=== PATIENT | female | born 2000 | race Caucasian/White ===

== ENCOUNTER 2024-08-16 12:49 | Outpatient (OUT) | payer BC, SELFPAY ==
--- NOTE | 2024-08-16 14:10 | P.CN_ITS ---
Consult Note: HPI Data of Consult Patient: new to practice Consult date: 08/16/24 Requesting Physician: Ty Fairbanks MD Primary Care Provider: Vidal Romeo DO Consult Narrative Reason for consult: low back, bilateral leg pain Narrative: 24yof who presents for evaluation. longstanding low back pain with radiation into bilateral lower extremities. imaging reviewed, shows disc tear and bulging at l4-5 and l5-s1 with resultant stenosis. has engaged in a series of provider directed home exercises >6 weeks, as well as physical therapy, without benefit. uses otc nsaids, which provide mild relief. denies adverse med side effects. cc:: CC: Ty Fairbanks MD Review of Systems ROS Status of ROS 10 or more systems reviewed and unremark able except as noted in history and below Exam Narrative Exam Narrative: Psych-alert and oriented x 3. Attentive and appropriate, constitutionally normal, displays normal mood and affect per situation. There are no obvious deficits in memory, reasoning, or intellect.? Skin-no obvious rashes, bruising, erythema noted to the patient's area of pain.? Extremities- extremities are warm with minimal edema and palpable pulses. Lumbar-tenderness to palpation noted in the lumbar spine and paraspinal musculature. Pain is elicited with flexion, extension, and lateral rotation of the lumbar spine. Range of motion is diminished with these motions. Facet loading maneuvers are positive.? Strength-noted to be unremarkable with the exception of decreased strength rated at 4 out of 5 in bilateral quadriceps femoris, anterior tibialis. Sensory-no notable sensory deficits in the bilateral lower extremities to touch or pinprick in all dermatomal distributions with the exception to decreased sensation to the bilateral L4, 5 dermatomal distribution Coordination remains intact.? Gait remains non-antalgic. Assessment and Plan Assessment and Plan (1) Lumbar stenosis with neurogenic claudication: (2) Lumbar disc displacement without myelopathy: Plan 24yof who presents for evaluation. failed conservative measures, as noted. imaging reviewed, as noted. given symptoms and imaging, prudent to attempt bilateral l4-5 tfesi under fluoroscopic guidance. may even benefit from bilateral l5-s1 tfesi under fluoroscopic guidance. she is in agreement. meds reviewed, will trial lodine 400mg bid prn. follow up after procedure.
== END 2024-08-16 12:50 | disposition home or self-care (01) ==
PROVIDERS: PCP Student in an Organized Health Care Education/Training Program; Visit Provider Anesthesiology
DX: M48.062 Spinal stenosis, lumbar region with neurogenic claudication (principal); M51.26 Other intervertebral disc displacement, lumbar region
CPT/HCPCS: G0463

== ENCOUNTER 2024-08-30 08:54 | Day surgery (SDC) | payer BC, SELFPAY ==
[2024-08-30 09:01] VITALS: BP 124/89; PULSE 104; TEMP 36.1; O2SAT 98
[2024-08-30 09:22] LABS: HCG Qualitative NEGATIVE (NEGATIVE); Internal Control Within Normal Limits
[2024-08-30 09:47] VITALS: BP 134/60; PULSE 71; O2SAT 97
[2024-08-30] MEDS: BUPIVACAINE HCL 0.25% PF 25 MG/10 ML VIAL INJ (09:47)
[2024-08-30] MEDS: 0.9 % SODIUM CHLORIDE 10 ML SYRINGE - SALINE FLUSH INJ (09:47)
[2024-08-30] MEDS: LIDOCAINE HCL 2% 400 MG/20 ML MDV 3 ML INJ (09:48)
[2024-08-30] MEDS: IOHEXOL 240 MG/ML - 10 ML VIAL 24 MG INJ (09:48)
[2024-08-30] MEDS: METHYLPREDNISOLONE ACETATE 80 MG/ML VIAL INJ (09:48)
[2024-08-30 09:49] VITALS: BP 128/63; PULSE 72; O2SAT 97
--- NOTE | 2024-08-30 09:55 | W.PM.PROCNOT ---
Date of procedure: 08/30/24 Pre-op diagnosis: Pain due to lumbar stenosis with neurogenic claudication Post-op diagnosis: same as pre-op Procedure: Procedure: Bilateral L5-S1 transforaminal epidural steroid injection Medications: Bupivacaine 0.25% 2cc, lidocaine 2% 1cc, depomedrol 80mg The patient was seen and examined in the preoperative holding area.? Informed consent was obtained and placed on the chart.? Patient was brought to the medical procedure unit and placed in the prone position where a timeout was completed verifying the correct patient, procedure site, position, and planned special equipment using sterile aseptic technique.? Under direct fluoroscopic visualization a 25-gauge Quincke tipped spinal needle was advanced at level left L5-S1 to the designated neural foramen where contrast dye was injected to show adequate spread.? There was no evidence of vascular or adverse uptake.? Epidural spread was appreciated.? The above-mentioned injectate was then placed in a 1.5 mL aliquot preceded by negative aspiration.? The needle was removed. The same procedure, at the same level, was completed on the opposite side. ? Patient was taken to the postprocedural recovery area and monitored for an appropriate length of time before found suitable for discharge in the accompaniment of a responsible adult.? Anesthesia: Local Surgeon: Ty Fairbanks Pathology: none sent Condition: stable Disposition: no change
== END 2024-08-30 09:55 | disposition home or self-care (01) ==
PROVIDERS: PCP Student in an Organized Health Care Education/Training Program; Visit Provider Anesthesiology
DX: M48.062 Spinal stenosis, lumbar region with neurogenic claudication (principal)
CPT/HCPCS: 36415; 64483; 84703; J0665; J1010; Q9966

== ENCOUNTER 2024-09-13 07:47 | Day surgery (SDC) | payer BC, SELFPAY ==
[2024-09-13 08:17] LABS: HCG Qualitative NEGATIVE (NEGATIVE); Internal Control Within Normal Limits
[2024-09-13 08:19] VITALS: BP 117/74; PULSE 63; TEMP 36.3; O2SAT 100
[2024-09-13 08:50] VITALS: BP 116/67; PULSE 68; O2SAT 100
[2024-09-13] MEDS: 0.9 % SODIUM CHLORIDE 10 ML SYRINGE - SALINE FLUSH INJ (08:51)
[2024-09-13] MEDS: LIDOCAINE HCL 2% 400 MG/20 ML MDV 3 ML INJ (08:52)
[2024-09-13] MEDS: IOHEXOL 240 MG/ML - 10 ML VIAL INJ (08:52)
[2024-09-13] MEDS: BUPIVACAINE HCL 0.25% PF 25 MG/10 ML VIAL INJ (08:52)
[2024-09-13] MEDS: METHYLPREDNISOLONE ACETATE 80 MG/ML VIAL INJ (08:53)
[2024-09-13 08:54] VITALS: BP 120/70; PULSE 70; O2SAT 100
--- NOTE | 2024-09-13 08:54 | W.PM.PROCNOT ---
Date of procedure: 09/13/24 Pre-op diagnosis: Pain due to lumbar stenosis with neurogenic claudication Post-op diagnosis: same as pre-op Procedure: Procedure: Bilateral L4-5 transforaminal epidural steroid injection Medications: Bupivacaine 0.25% 2cc, lidocaine 2% 1cc, depomedrol 80mg The patient was seen and examined in the preoperative holding area.? Informed consent was obtained and placed on the chart.? Patient was brought to the medical procedure unit and placed in the prone position where a timeout was completed verifying the correct patient, procedure site, position, and planned special equipment using sterile aseptic technique.? Under direct fluoroscopic visualization a 25-gauge Quincke tipped spinal needle was advanced at level left L4-5 to the designated neural foramen where contrast dye was injected to show adequate spread.? There was no evidence of vascular or adverse uptake.? Epidural spread was appreciated.? The above-mentioned injectate was then placed in a 1.5 mL aliquot preceded by negative aspiration.? The needle was removed. The same procedure, at the same level, was completed on the opposite side. ? Patient was taken to the postprocedural recovery area and monitored for an appropriate length of time before found suitable for discharge in the accompaniment of a responsible adult. Anesthesia: Local Surgeon: Ty Fairbanks Pathology: none sent Condition: stable Disposition: no change
== END 2024-09-13 08:58 | disposition home or self-care (01) ==
PROVIDERS: PCP Student in an Organized Health Care Education/Training Program; Visit Provider Anesthesiology
DX: M48.062 Spinal stenosis, lumbar region with neurogenic claudication (principal)
CPT/HCPCS: 36415; 64483; 84703; J0665; J1010; Q9966

== ENCOUNTER 2024-09-23 13:21 | Outpatient (OUT) | payer BC, SELFPAY ==
--- NOTE | 2024-09-23 13:53 | PM.CN ---
Consult Note: HPI Data of Consult Patient: known to practice within the last 3 years Requesting Physician: Jazmin Yanez NP Primary Care Provider: Vidal Romeo, DO Consult Narrative Reason for consult: f/u Narrative: Edwige tellez pleasant 24 year old female presents for evaluation of chronic low back pain secondary to bulging disc, lumbar ddd, and lumbar spondylosis. recently underwent bilateral L4/5 TFESI and bilateral L5/S1 TFESI with >50% improvement ongoing. continues to utilize heat, ice, lodine, and tylenol PRN. failed flexeril, tizanidine, and robaxin for myofasical spasms and pain. pain today 1/10 aching muscle discomfort with increased pain standing, walking, sitting, with activity, and sleep. finds benefit to PRN chiropractor care. cc:: CC: Jazmin Yanez NP Review of Systems ROS Status of ROS 10 or more systems reviewed and unremarkable except as noted in history and below Musculoskeletal Reports: back pain PFSH PFSH Medical History (Updated 09/23/24 @ 13:56 by Jazmin Yanez NP) Low back pain ?M54.50 - Low back pain, unspecified (ICD-10) Depression ?F32.A - Depression, unspecified (ICD-10) PCOS (polycystic ovarian syndrome) ?E28.2 - Polycystic ovarian syndrome (ICD-10) Surgical History History of ankle surgery ?Z98.890 - Other specified postprocedural states (ICD-10) Meds Home Medications and Allergies Home Medications ?Medication ?Instructions ?Recorded ?Confirmed ?Type bupropion HCl 300 mg 24 hr tablet, 300 mg PO DAILY 08/16/24 09/13/24 History extended release etodolac 400 mg tablet (Lodine) 400 mg PO BID 08/16/24 09/13/24 History norgestimate 0.18 mg/0.215 mg/0.25 1 tab PO DAILY 08/16/24 09/13/24 History mg-ethinyl estradiol 25 mcg tablet (Jim-Ew-Qdbuci) Allergies Allergy/AdvReac Type Severity Reaction Status Date / Time No Known Drug Allergies Allergy Verified 09/13/24 08:20 Exam Constitutional Documenting provider has reviewed patient's vital signs: yes Common normals: no apparent distress, oriented x3, healthy appearing, alert and well nourished General appearance: cooperative HENMT Common normals: normocephalic, hearing grossly normal bilaterally and moist oral mucous membranes Head and scalp: normocephalic Eye Common normals: PERRL Pupil: PERRL Neck & C-Spine Common normals: full ROM General: normal visual inspection Chest Common normals: inspection of chest normal Respiratory Common normals: normal respiratory effort, no retractions and no use of accessory muscles Back & Pelvis Lumbar spine/lower back: ROM limited, pain with ROM, lumbar spinal tenderness Lumbar spinal tenderness location: L4 and L5, paraspinal muscle tenderness Lumbar paraspinal muscle tenderness: bilateral and paraspinal muscle spasm Lumbar paraspinal muscle spasm: bilateral Bilateral lumbar paraspinal muscle spasm: L2, L3, L4 and L5 Sacroiliac joints: SI joints normal Other: positive facet loading strength 5/5 in BLE sensation intact BLE Neuro Common normals: oriented x3, CN's II-XII intact bilaterally, moves all extremities, no focal motor deficits, no sensory deficits noted and deep tendon reflexes 2+ bilaterally Sensorium/orientation: alert Motor exam: strength 5/5 throughout and no movement abnormalities noted Psych Common normals: mental status grossly normal, thought process normal, cooperative, affect normal, speech normal and activity/motor behavior normal Speech: normal speech Thought process: normal thought process Results Additional Findings Additional findings: If on a controlled substance or opioids, I have checked an OARRS report on this patient and there are no aberrancies noted in the prescribing history.??If on a controlled substance or opioid a drug screen was completed and reviewed within the last year, and if there has not been a drug screen completed we ordered one today to monitor higher risk, state monitored pain medication use. As part of providing excellent, safe, comprehensive care, the following was completed at our patient's visit: 1. A medication reconciliation and review to ensure accurate knowledge of current/active medications, including asking our patients to inform us about any isbh-pkz-tyxvcfn medications or herbal remedies/nutritional supplements/alternative remedies. 2. A review to specifically ensure our patients have had annual screening for screening for depression, screening for tobacco use, and screening for unhealthy alcohol use. For concerning screenings had a discussion with the patient, provided patient education, and recommended follow-up with primary care provider when appropriate. If patient noted with a risk of falling, they received education on strength, gait, and balance training to prevent future risk of falling. Portions of this note may have been carried over from the previous visit and updated as appropriate. Please note this office utilizes paper charting in addition to the electronic medical record. A list of current medications, vitals, and PMH is available there as the clinical staff outside of myself do not have access to [employer] charting during the clinic day operations. As part of providing quality comprehensive care the current medications, vitals, and PMH were reviewed in the paper chart. Assessment and Plan Assessment and Plan (1) Lumbar disc displacement without myelopathy: (2) Lumbar stenosis with neurogenic claudication: (3) Low back pain: (4) Lumbar degenerative disc disease: (5) Myalgia, other site: (6) Lumbar arthropathy: Plan start zynex TENS for myofascial pain 10-15 minutes TID PRN pain/spasms start baclofen 10mg 1-2 tabs BID PRN pain/spasms PT for low back pain and myalgia per pt request continue HEP as tolerated f/u 8 weeks, sooner if needed
== END 2024-09-23 13:22 | disposition home or self-care (01) ==
LOC: PM 13:21
PROVIDERS: PCP Student in an Organized Health Care Education/Training Program; Visit Provider Nurse Practitioner
DX: M51.26 Other intervertebral disc displacement, lumbar region (principal); M48.062 Spinal stenosis, lumbar region with neurogenic claudication; M51.369 Other intervertebral disc degeneration, lumbar region without mention of lumbar back pain or lower extremity pain; M79.18 Myalgia, other site; M47.816 Spondylosis without myelopathy or radiculopathy, lumbar region
CPT/HCPCS: G0463

== ENCOUNTER 2024-11-17 13:48 | Outpatient (OUT) | payer BC, SELFPAY ==
--- NOTE | 2024-11-17 14:16 | P.CN_ITS ---
Consult Note: HPI Data of Consult Patient: known to practice within the last 3 years Requesting Physician: Jazmin Yanez NP Primary Care Provider: Vidal Romeo, DO Consult Narrative Reason for consult: f/u Narrative: Edwige tellez pleasant 24 year old female presents for evaluation of chronic low back pain secondary to bulging disc, lumbar ddd, and lumbar spondylosis. recently underwent bilateral L4/5 TFESI and bilateral L5/S1 TFESI with >50% improvement ongoing. continues to utilize heat, ice, lodine, baclofen, and tylenol PRN. failed flexeril, tizanidine, and robaxin for myofasical spasms and pain. pain today 7/10 aching muscle discomfort with increased pain standing, walking, sitting, with activity, and sleep. finds benefit to PRN chiropractor care. since last visit she has had increased numbness tingling of LLE. cc:: CC: Jazmin Yanez NP Review of Systems ROS Status of ROS 10 or more systems reviewed and unremark able except as noted in history and below [facility] Medical History (Updated 11/17/24 @ 14:16 by Jazmin Yanez NP) Low back pain ?M54.50 - Low back pain, unspecified (ICD-10) Depression ?F32.A - Depression, unspecified (ICD-10) PCOS (polycystic ovarian syndrome) ?E28.2 - Polycystic ovarian syndrome (ICD-10) Surgical History History of ankle surgery ?Z98.890 - Other specified postprocedural states (ICD-10) Meds Home Medications and Allergies Home Medications ?Medication ?Instructions ?Recorded ?Confirmed ?Type bupropion HCl 300 mg 24 hr tablet, 300 mg PO DAILY 04/3009/13/24 History extended release etodolac 400 mg tablet (Lodine) 400 mg PO BID 08/16/24 09/13/24 History norgestimate 0.18 mg/0.215mg/0.25 1 tab PO DAILY 08/1609/13/24 History mg-ethinyl estradiol 0.025 mg tablet (Flf-Go-Efplsv) Allergies Allergy/AdvReac Type Severity Reaction Status Date / Time No Known Drug Allergies Allergy Verified 09/13/24 08:20 Exam Constitutional Documenting provider has reviewed patient's vital signs: yes Common normals: no apparent distress, oriented x3, healthy appearing, alert and well nourished General appearance: cooperative HENMT Common normals: normocephalic, hearing grossly normal bilaterally and moist oral mucous membranes Head and scalp: normocephalic Eye Common normals: PERRL Pupil: PERRL Neck & C-Spine Common normals: full ROM General: normal visual inspection Chest Common normals: inspection of chest normal Respiratory Common normals: normal respiratory effort, no retractions and no use of accessory muscles Back & Pelvis Lumbar spine/lower back: pain with ROM, lumbar spinal tenderness, straight leg raise positive right and straight leg raise positive left Other: decreased sensation to bilateral L4,5,S1 strength 3.5/5 in RLE and 5/5 in LLE Neuro Common normals: oriented x3 Sensorium/orientation: alert Psych Common normals: mental status grossly normal, thought process normal, cooperative, affect normal, speech normal and activity/motor behavior normal Speech: normal speech Thought process: normal thought process Results Additional Findings Additional findings: If on a controlled substance or opioids, I have checked an OARRS report on this patient and there are no aberrancies noted in the prescribing history.??If on a controlled substance or opioid a drug screen was completed and reviewed within the last year, and if there has not been a drug screen completed we ordered one today to monitor higher risk, state monitored pain medication use. As part of providing excellent, safe, comprehensive care, the following was completed at our patient's visit: 1. A medication reconciliation and review to ensure accurate knowledge of current/active medications, including asking our patients to inform us about any elxn-aka-pmjcmzi medications or herbal remedies/nutritional supplements/alternative remedies. 2. A review to specifically ensure our patients have had annual screening for screening for depression, screening for tobacco use, and screening for unhealthy alcohol use. For concerning screenings had a discussion with the patient, provided patient education, and recommended follow-up with primary care provider when appropriate. If patient noted with a risk of falling, they received education on strength, gait, and balance training to prevent future risk of falling. Portions of this note may have been carried over from the previous visit and updated as appropriate. Please note this office utilizes paper charting in addition to the electronic medical record. A list of current medications, vitals, and PMH is available there as the clinical staff outside of myself do not have access to [employer] charting during the clinic day operations. As part of providing quality comprehensive care the current medications, vitals, and PMH were reviewed in the paper chart. Assessment and Plan Assessment and Plan (1) Lumbar radiculopathy: (2) Lumbar degenerative disc disease: (3) Myalgia, other site: (4) Lumbar spondylosis: Assessment and Plan: consider lumbar MBBs for axial facet mediated low back pain in the future Plan 24 year old female with chronic low back and BLE pain secondary to lumbar bulging disc and facet arthropathy. since last visit she has noticed increase numbness tingling to LLE and weakness to RLE. continues to utilize lodine and baclofen with relief without side effects. finding benefit to PRN TENS unit. WALI 52% with moderate to severe pain impacting ADLs, sleep, social life, travel. at this time update EMG of BLE to assess weakness and altered sensation, likely chronic radiculopathy. may consider TFESIs vs SCS vs referral back to NS. f/u to review emg
== END 2024-11-17 13:49 | disposition home or self-care (01) ==
LOC: PM 13:49
PROVIDERS: PCP Student in an Organized Health Care Education/Training Program; Visit Provider Nurse Practitioner
DX: M54.16 Radiculopathy, lumbar region (principal); M51.369 Other intervertebral disc degeneration, lumbar region without mention of lumbar back pain or lower extremity pain; M79.18 Myalgia, other site; M47.816 Spondylosis without myelopathy or radiculopathy, lumbar region
CPT/HCPCS: G0463

== ENCOUNTER 2024-11-28 12:35 | Emergency (ER) | payer BC, SELFPAY ==
--- OUTSIDE RECORDS SUMMARY | 2024-08-24 07:15 | XMS_ITS ---
Author Organization [facility] Address [address] [place] [address] Care Team Providers Care Is Project Manager Name Role Phone NabilabhishekNancy Cruz Unavailable [phone] Edgar Patricio Unavailable [phone] Allergies No Known Allergies REASON FOR VISIT Lumbar Disc Herniation- Dr Cruz Medications Medication SIG (Take, Route, Frequency, Duration) Notes Start Date End Date Status CETIRIZINE HCL 10 MG TAKE 1 TABLET BY [facility] EVERY DAY for 30 Days Not-Taking [...] smoker Encounters Encounter Location Date Provider Diagnosis [facility] [address] [place] [address] 08/24/2024 Edgar Patricio Plan Of Treatment No Information Progress Notes * ELADIA SIERRADOB:1999 (24 yo F)Acc No.[id number]:08/24/2024 Patient: ELADIA ZULETA Provider: Brisa Patricio MD :2000 A ge:24 Y S ex:Female Date:08/24/2024 Address:[address] [place], [place] [phone] Subjective: * Chief Complaints: * 1 . [...] Electronic signature of Edgar Patricio MD on 11/28/2024 at 12:51 PM EDT Sign off status: Pending * Provider: Brisa Patricio MD Date: 0 08/24/2024 Generated for Nii amezquita/Judy/Monica on: 0 11/28/2024 12:51 PM EDT
--- OUTSIDE RECORDS SUMMARY | 2024-09-06 09:00 | XMS_ITS ---
Author Organization [facility] Address [address] [place] [address] Care Team Providers Care Field Sales Executive Name Role Phone NabilabhishekNancy Zenanereida Unavailable [phone] Edgar Patricio Unavailable [phone] REASON FOR VISIT Lumbar Disc herniation Dr Cruz Encounters Encounter Location Date Provider Diagnosis [facility] [address] [place] [phone] 09/06/2024 Edgar Patricio Plan Of Treatment No Information Progress Notes * ELADIA SIERRADOB:1999 (24 yo F)Acc No.[id number]:09/06/2024 Patient: ELADIA ZULETA Provider: Brisa Patricio MD :2000 A ge:24 Y S ex:Female Date:09/06/2024 Address:[address] [place], [place] [phone] Subjective: * Chief Complaints: * 1 . Lumbar Disc herniation Dr Cruz. * Medical History: Objective: * Vitals: Assessment: Plan: * Treatment: Forms: * Images: * Electronic signature of Edgar Patricio MD on 11/28/2024 at 12:51 PM EDT Sign off status: Pending * Provider: Brisa Patricio MD Date: 09/06/2024 Generated for Printi ng/Faaspeng/eTransmitting on: 0 11/28/2024 12:51 PM EDT
--- OUTSIDE RECORDS SUMMARY | 2024-11-24 13:09 | XMS_ITS ---
Author Name Auto Generated Organization OHIP Support Name Relationship Address Phone FAITH SIERRA Next of Kin [address] [place] [address] [place] [address] + FAITH SIERRA Next of Kin [address] [place] [address] [place] [address] + FAITH SIERRA Next of Kin [address] [place] [address] [place] [address] + FAITH SIERRA Next of Kin [address] [place] [address] [place] [address] + FAITH SIERRA Next of Kin [address] [place] [address] [place] [address] + FAITH SIERRA Next of Kin [address] [place] [address], [place] [address] + FAITH SIERRA Next of Kin [address] [place] [address], [place] [address] + KARLA SIERRA Next of Kin [address] [place] [address] [place] [address] + FAITH SIERRA Next of Kin [address] [place] [address], [place] [address] + KARLA ISERRA Next of Kin [address] [place] [address], [place] [address] + RIGO FAITH Next of Kin [address] [place] [address] [place] [address] + KARLA SIERRA Next of Kin [address] [place] [address], [place] [address] + FAITH SIERRA Next of Kin [address] [place] [address], [place] [address] + WILDERMUTH, KARLA Next of Kin [address] [place] [address] [place] [address] + WILDERMUTH, FAITH Next of Kin [address] [place] [address] [place] [address] + WILDERMUTH, KARLA Next of Kin [address] [place] [address] [place] [address] + WILDERMUTH, FAITH Next of Kin [address] [place] [address] [place] [address] + WILDERMUTH, KARLA Next of Kin [address] [place] [address] [place] [address] + WILDERMUTH, FAITH Next of Kin [address] [place] [address] [place] [address] + WILDERMUTH, KARLA Next of Kin [address] [place] [address] [place] [address] + WILDERMUTH, FAITH Next of Kin [address] [place] [address] [place] [address] + WILDERMUTH, KARLA Next of Kin [address] [place] [address] [place] [address] + WILDERMUTH, FAITH Next of Kin [address] [place] [address] [place] [address] + WILDERMUTH, KARLA Next of Kin [address] [place] [address] [place] [address] + WILDERMUTH, FAITH Next of Kin [address] [place] [address] [place] [address] + WILDERMUTH, KARLA Next of Kin [address] [place] [address] [place] [address] + WILDERMUTH, FAITH Next of Kin [address] [place] [address] [place] [address] + WILDERMUTH, KARLA Next of Kin [address] [place] [address] [place] [address] + WILDERMUTH, FAITH Next of Kin [address] [place] [address] [place] [address] + WILDERMUTH, KARLA Next of Kin [address] [place] [address] [place] [address] + WILDERMUTH, FAITH Next of Kin [address] [address] [place] [address] + WILDERMUTH, KARLA Next of Kin [address] [place] [address] [place] [address] + WILDERMUTH, FAITH Next of Kin [address] [place] [address] [place] [address] + WILDERMUTH, KARLA Next of Kin [address] [place] [address] [place] [address] + WILDERMUTH, FAITH Next of Kin [address] [place] [address] [place] [address] + WILDERMUTH, KARLA Next of Kin [address] [place] [address] [place] [address] + WILDERMUTH, FAITH Next of Kin [address] [place], [place] [address], [place] [address] + WILDERMUTH, KARLA Next of Kin [address] [place] [address] [place] [address] + WILDERMUTH, FAITH Next of Kin [address] [place], [place] [address], [place] [address] + WILDERMUTH, KARLA Next of Kin [address] [place] [address] [place] [address] + WILDERMUTH, FAITH Next of Kin [address] [place], [place] [address], [place] [address] + WILDERMUTH, KARLA Next of Kin [address] [place] [address] [place] [address] + WILDERMUTH, FAITH Next of Kin [address] [place] [address] [place] [address] + WILDERMUTH, KARLA Next of Kin [address] [place] [address] [place] [address] + WILDERMUTH, FAITH Next of Kin [address] [place] [address] [place] [address] + WILDERMUTH, KARLA Next of Kin [address] [place] [address] [place] [address] + Care Team Providers Care Furnace Brazer Name Role Phone ROSANA, CHAD W Attending Unavailable BRANIECKI, BECKY A Referring Unavailable BRANIECKI, BECKY A Primary Care Unavailable ANGELO, NUBIA Cavazos Attending Unavailable BRANIECKI, BECKY A Referring Unavailable BRANIECKI, BECKY A Primary Care Unavailable ROSANA, CHAD Giordano Attending Unavailable BRANIECKI, BECKY A Referring Unavailable BRANIECKI, BECKY A Primary Care Unavailable ROSANA, CHAD Giordano Attending Unavailable BRANIECKI, BECKY A Referring Unavailable BRANIECKI, BECKY A Primary Care Unavailable ROSANA, CHAD W Attending Unavailable BRANIECKI, BECKY A Referring Unavailable BRANIECKI, BECKY A Primary Care Unavailable ROSANA, CHAD W Attending Unavailable BRANIECKI, BECKY A Referring Unavailable BRANIECKI, BECKY A Primary Care Unavailable ROSANA, CHAD Giordano Attending Unavailable BRANIECKI, BECKY A Referring Unavailable BRANIECKI, BECKY A Primary Care Unavailable ANGELO, NUBIA Cavazos Attending Unavailable BRANIECKI, BECKY A Referring Unavailable BRANIECKI, BECKY A Primary Care Unavailable ROSANA, CHAD Giordano Attending Unavailable BRANIECKI, BECKY A Referring Unavailable BRANIECKI, BECKY A Primary Care Unavailable ROSANA, CHAD Giordano Attending Unavailable BRANIECKI, BECKY A Referring Unavailable BRANIECKI, BECKY A Primary Care Unavailable ROSANA, CHAD Giordano Attending Unavailable BRANIECKI, BECKY A Referring Unavailable BRANIECKI, BECKY A Primary Care Unavailable ROSANA, CHAD Giordano Attending Unavailable BRANIECKI, BECKY A Referring Unavailable BRANIECKI, BECKY A Primary Care Unavailable ROSANA, CHAD Giordano Attending Unavailable BRANIECKI, BECKY A Referring Unavailable BRANIECKI, BECKY A Primary Care Unavailable ANGELO, NUBIA Cavazos Attending Unavailable BRANIECKI, BECKY A Referring Unavailable BRANIECKI, BECKY A Primary Care Unavailable ROSANA, CHAD Giordano Attending Unavailable BRANIECKI, BECKY A Referring Unavailable BRANIECKI, BECKY A Primary Care Unavailable ROSANA, CHAD Giordano Attending Unavailable BRANIECKI, BECKY A Referring Unavailable BRANIECKI, BECKY A Primary Care Unavailable BRANIECKI, BECKY A Primary Care Unavailable STRUGALJUDY SEWELL Attending Unavailable BRANIECKI, BECKY A Primary Care Unavailable SKIBICKI, YOLI Attending Unavailable BRANIECKI, BECKY A Primary Care Unavailable Magdi LANDIS, Ty Wallace Attending Unavailable Magdi LANDIS, Ty Wallace Attending Unavailable Magdi LANDIS, Ty Wallace Attending Unavailable Becky Romeo DO Referring Un available Edwina LANDIS, Adam Aguilar Attending Unavail able PROBLEMS DATE TYPE CONDITION / CODE ATTENDING STATUS [facility] 11/24/2024 Unknown Low back pain, unspecified / M54.50(ICD-10) NA [facility] 11/24/2024 Unknown Other chronic pa in / G89.29(ICD-10) [facility] 07/20/2024 Unknown Strain of muscle , fascia and tendon of lower back, initial encounter / S39.012A(ICD-10) [facility] 07/20/2024 Unknown Abnormal finding s on diagnostic imaging of other parts of musculoskeletal system / R93.7(ICD-10) [facility] 12/26/2023 Unknown Adjustment disor rashid with anxiety / F43.22(ICD-10) NUBIA STEPHENS [facility] 03/28/2023 Unknown Major depressive disorder, recurrent, in full remission / F33.42(ICD-10) CHAD WAYNE [facility] 04/25/2020 Unknown 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 Multiplanar reformatted images are provided for review. Adjustment of mA and/or kV according to patient size was utilized. Automated exposure control, iterative reconstruction, and/or weight based adjustment of the mA/kV was utilized to reduce the radiation dose to as low as reasonably achievable. COMPARISON: None HISTORY: ORDERING SYSTEM PROVIDED HISTORY: Excruciating low back pain radiation right hip right leg TECHNOLOGIST PROVIDED HISTORY: Excruciating low back pain radiation right hip right leg Decision Support Exception - unselect if not a suspected or confirmed emergency medical condition->Emergency Medical Condition (MA) FINDINGS: BONES/ALIGNMENT: There is mild disc space narrowing throughout with mild scoliosis. There is a mild wedge compression deformity of L1 with no displaced or retropulsed fragment. The posterior elements are intact. DEGENERATIVE CHANGES: There are small central disc bulges at L1-2, L2-3, and L3-4 causing mild anterior dural sac effacement throughout. There is a moderate broad-based protrusion centrally at L4-5 causing moderate anterior dural sac effacement and mild neural foraminal narrowing bilaterally. There is a tiny calcification along the annulus posteriorly. There is a moderate broad-based central protrusion at L5-S1 causing mild anterior dural sac effacement and mild neural foraminal narrowing bilaterally. There are mild hypertrophic changes of the facets throughout with no significant spinal stenosis and no pars defects. The paravertebral soft tissues are normal. SOFT TISSUES/RETROPERITONEUM: No paraspinal mass is seen. IMPRESSION: Mild wedge compression fracture of L1 which may be chronic with no obvious displaced or retropulsed fragment seen. If the patient is focally symptomatic at this level, suggest MRI or bone scan correlation. Moderate broad-based protrusions centrally at L4-5 and L5-S1. Suggest MRI follow-up, if the patient remains symptomatic. Small central disc bulges from L1 through L4. Mild osteoarthritic changes of the facets throughout with no significant spinal stenosis. Interpreted by: Octavio Lowe MD Signed by: Octavio Lowe MD 07/20/24 Final result HCG, ,URINE Collected: 025 4:30 PM Status: F Source: [facility] TYPE CODE TESTS RESULT OUT OF RANGE REFERENCE UNITS LAB [facility](LOINC) HCG, ,Ur ine NEGATIVE NEG Result Comment: Specimens wi th hCG levels near the threshold of the test (25 mIU/mL) may give a negative or indeterminate result. In such cases, another test should be performed with a new specimen in 48-72 hours. If early is suspected clinically in this setting, correlation with quantitative serum b-hCG level is suggested. [facility] has confirmed the use of plasma for this test. This has not been cleared or approved by the U.S. Food and Drug Administration. The FDA has determined that such clearance is not necessary. Performed By: #### UHCG #### [address] [place] [address] Technical Account Representative: Pankaj Rios MD URINALYSIS, ROUTINE Collected: 07/20/19 4:03 PM Status: F Source: [facility] TYPE CODE TESTS RESULT OUT OF RANGE REFERENCE UNITS LAB UCO(LOINC) Color Yellow YEL LAB UTU(LOINC) Clarity, Urine SLIGHTLY CLOUDY Abnormal CLEAR LAB UGL(LOINC) Glucose,Semi- qnt,Ur NEGATIVE NEG mg/dL LAB UBI(LOINC) Bilirubin, SemiQt,Ur NEGATIVE NEG LAB UKE(LOINC) Ketones, Urine NEGATIVE NEG mg/dL LAB USG(LOINC) Spec. [place],Ur 1.020 1.010-1.020 LAB UHB(LOINC) Blood, Urine NEGATIVE NEG LAB UPH(LOINC) PH,Ur 8.0 5.0-9.0 LAB UPR(LOINC) Protein, Semi-qnt,Ur NEGATIVE NEG mg/dL LAB UUR(LOINC) Urobilinogen, Ur Normal 0.0-1.0 EU/dL LAB UNI(LOINC) Nitrite,Ur NEGATIVE NEG LAB ULE(LOINC) Leukocyte Esterase SMALL Abnormal NEG Performed By: #### UA, UMICA O #### [address] [place] [address] Technical Account Representative: Pankaj Rios MD URINALYSIS,MICRO Collected: 5 4:03 PM Status: F Source: [facility] TYPE CODE TESTS RESULT OUT OF RANGE REFERENCE UNITS LAB UWBC(LOINC) Urine WBC's 5 TO 10 0-5 /HPF LAB URBC(LOINC) Urine RBC's 0 TO 2 0-2 /HPF LAB EPITH(LOINC) Epithelial cells 2 TO 5 0-25 /HPF LAB EPIR(LOINC) Epithelial, Renal 2 TO 5 0 /HPF LAB AMORPH(LOINC) Amorphous Sediment 1+ Abnormal NONE Performed By: #### UA, JHONATAN O #### [facility] [address] [place] [address] Technical Account Representative: Pankaj Rios MD ALLERGIES DATE TYPE / CODE NAME / CODE REACTION SEVERITY SOURCE Drug Class/[id number](SNO MED CT) NO KNOWN ALLERGIES [facility] ENCOUNTERS ADMIT/DISCHARGE ACCOUNT NUMBER ADMITTING ENCOUNTER CLASS LOCATION SOURCE 11/24/2024/11/25/19 [id number] Emergency Building:TEDRoom : 03Bed: [address] [facility] 11/24/2024 [id number] [facility]ose[facility] 11/11/2024/11/12/19 [id number] Ambulatory Building:[facility] 10/14/2024/10/15/19 [id number] Ambulatory Building:[facility] 09/17/2024/09/18/19 [id number] Ambulatory Building:[facility] 09/16/2024/09/17/19 [id number] Ambulatory Building:[facility] 09/13/2024/09/14/19 [id number] [facility] 08/30/2024/08/30/19 25 [id number] [facility] [place] [facility] 08/26/2024/08/26/19 25 [id number] Ambulatory Building:[facility] 08/16/2024/08/16/19 25 [id number] [facility] 08/12/2024/08/12/19 25 [id number] Ambulatory Building:[facility] 08/05/2024/08/05/19 25 [id number] Emergency Building:TEDRoom : 14Bed: [address] [facility] 07/20/2024/07/20/19 25 [id number] Emergency Building:TEDRoom : 07Bed: [address] [facility] 07/15/2024/07/15/19 [id number] Ambulatory Building:[facility] 06/25/2024/06/25/20 24 [id number] Ambulatory Building:[facility] 05/28/2024/05/28/20 24 [id number] Ambulatory Building:[facility] 05/27/2024/05/27/20 24 [id number] Ambulatory Building:[facility] 04/22/2024/04/22/20 24 [id number] Ambulatory Building:[facility] 03/25/2024/03/25/20 24 [id number] Ambulatory Building:[facility] 02/26/2024/02/26/20 24 [id number] Ambulatory Building:[facility] 01/23/2024/01/23/20 24 [id number] Ambulatory Building:[facility] 12/26/2023/12/26/19 24 [id number] Ambulatory Building:[facility] 12/26/2023/12/26/19 24 [id number] Ambulatory Building:[facility] PAYERS ENCOUNTER GUARANTOR PAYER SUBSCRIBER SOURCE 11/24/2024 ELADIA PALMAB: [id number] [address] [address]Gat: (HP) [facility] Number: [id number] ve Date:2024-07-07 ELADIA PALMAB: [id number] [facility] [place], [place] [address]Pgn: (HP) [facility] 11/24/2024 Eladia Toth: [id number] [address] [address] Primary Insurance:Ria bella Number: Effective Date:7801-28-10Gnrn Name:CLOVER [place] [id number], [place] [address]CZ: Eladia SierraDOB: [id number] [address] [address] [facility] 11/11/2024 ELADIAHILARIO SIERRADOB: [place], [place] [address]Uwu: (HP) Primary Insurance:BLUE ACCESS (PPO)Policy Number: [id number] ve Date:2024-02-05 ELADIA SIERRADOB: [id number] [address] [address]Rtv: (HP) [facility] 10/14/2024 ELADIA SIERRADOB: [place], [place] [address]Ott: (HP) Primary Insurance:BLUE ACCESS (PPO)Policy Number: [id number] ve Date:2024-02-05 ELADIA SIERRADOB: [id number] [address] [address]Vpm: (HP) [facility] 09/17/2024 ELADIA SIERRADOB: [place], [place] [address]Hhj: (HP) Primary Insurance:BLUE ACCESS (PPO)Policy Number: [id number] ve Date:2024-02-05 ELADIA SIERRADOB: [id number] [address] [address]Fni: (HP) [facility] 09/16/2024 ELADIA PALMAB: [place], [place] [address]Tyl: (HP) Primary Insurance:BLUE ACCESS (PPO)Policy Number: [id number] ve Date:2024-02-05 ELADIA SIERRADOB: [id number] [address] [address]Joq: (HP) [facility] 09/13/2024 Eladia SierraDOB: [address] [address] Primary Insurance:AnthemPol icy Number: Effective Date:[id number] Name:CLOVER Hodges187AtlanITZEL stnoe [address]NE: Eladia SierraDOB: [id number] [address] [facility] 08/30/2024 Eladia SierraDOB: [address] [address] Primary Insurance:AnthemPol icy Number: Effective Date:[id number] Name:CLOVER [place] [id number] [address]QU: Eladia SierraDOB: [id number] [address] [address] [facility] 08/26/2024 ELADIA SIERRADOB: [place], [place] [address]Ntd: (HP) Primary Insurance:BLUE ACCESS (PPO)Policy Number: [id number] ve Date:2024-02-05 ELADIA SIERRADOB: [id number] [address] [address]Xyi: (HP) [facility] 08/16/2024 Eladia SierraDOB: [address] [address] Primary Insurance:AnthemPol shayne Number: Effective Date:0507-95-43Nwzv Name:CLOVER [place] [address], [place] [address]TM: Eladiahilario SierraDOB: [id number] [address] [address] [facility] 08/12/2024 ELADIA LAM WILDCHRISTALUTHDOB: [place], [place] [address]Qwx: (HP) Primary Insurance:BLUE ACCESS (PPO)Policy Number: [id number] ve Date:2024-02-05 ELADIA SIERRADOB: [id number] [address] [address]Bxg: (HP) [facility] 08/05/2024 ELADIA SIERRADOB: [address] [address]Fio: (HP) [place] BCBSPolicy Number: [id number] Date:2024-07-07 ELADIA PASTRANAUTHDOB: [id number] [place], [place] [address]Ets: (HP) [facility] 07/20/2024 ELADIA SIERRADOB: [address] [address]Jxl: (HP) [place] Insurance:[place] BCBSPolicy Number: [id number] ve Date:2024-07-07 ELADIA SIERRADOB: [id number] [place], [place] [address]Gns: (HP) [facility] 07/15/2024 ELADIA PASTRANAUTHDOB: [place], [place] [address]Spf: (HP) Primary Insurance:BLUE ACCESS (PPO)Policy Number: [id number] ve Date:2024-02-05 ELADIA PALMAB: [id number] [address] [address]Kxk: (HP) [facility] 06/25/2024 ELADIA PALMAB: [id number] [place], [place] [address]Pgi: (HP) Primary Insurance:BLUE ACCESS (PPO)Policy Number: [id number] ve Date:2024-02-05 ELADIA PALMAB: [id number] [address] [address]Agd: (HP) [facility] 05/28/2024 ELADIA PALMAB: [address] [address]Vzh: (HP) Primary Insurance:BLUE ACCESS (PPO)Policy Number: [id number] Date:2024-02-05 ELADIA PALMAB: [id number] [address] [address]Aie: (HP) [facility] 05/27/2024 ELADIA PALMAB: [address] [address]Jjj: (HP) Primary Insurance:BLUE ACCESS (PPO)Policy Number: [id number] Date:2024-02-05 ELADIA PALMAB: [id number] [address] [address]Peu: (HP) [facility] 04/22/2024 ELADIA PALMAB: [address] [address]Vwd: (HP) Primary Insurance:BLUE ACCESS (PPO)Policy Number: [id number] Date:2024-02-05 ELADIA PALMAB: [id number] [address] [address]Ino: (HP) [facility] 03/25/2024 ELADIA PALMAB: [address] [address]Xqx: (HP) Primary Insurance:BLUE ACCESS (PPO)Policy Number: [id number] ve Date:2024-02-05 ELADIA PALMAB: [id number] [address] [address]Ytu: (HP) [facility] 02/26/2024 ELADIA PALMAB: [address] [address]Gzs: (HP) Primary Insurance:BLUE ACCESS (PPO)Policy Number: [id number] ve Date:2020-08-07 KARLA PALMAB: [id number] [address] [address]Xig: (HP) (WP) [facility] 01/23/2024 ELADIA PALMAB: [address] [address]Vxl: (HP) Primary Insurance:BLUE ACCESS (PPO)Policy Number: [id number] ve Date:2020-08-07 KARLA PALMAB: [id number] [address]Jwg: (HP) (WP) [facility] 12/26/2023 ELADIA PALMAB: [address] [address]Fjp: (HP) Primary Insurance:BLUE ACCESS (PPO)Policy Number: [id number] ve Date:2020-08-07 KARLA SIERRADOB: [id number] [place] [address] [address]Snn: (HP) (WP) [facility] 12/26/2023 ELADIA PSATRANAUTHDOB: [id number] [address] [address]Wzc: (HP) Primary Insurance:BLUE ACCESS (PPO)Policy Number: [id number] ve Date:2020-08-07 KARLA PASTRANAUTHDOB: [id number] [place] [address] [address]Dwt: (HP) (WP) [facility]
--- OUTSIDE RECORDS SUMMARY | 2024-11-24 13:09 | XMS_ITS | Encounter Summary ---
Author Organization [facility] Address [address] [place] [address] Care Team Providers Care Rn Endocrinology Name Role Phone Ottoniel Romeo DO Primary Care Provider [phone] Reason for Visit * Reason Comments Back Pain Bilateral lower back pain, and patient states it is radiating down the nerves in my legs . Patient has been here 2x now for same issues. Has had CT and MRI done a few months ago along with steroid injections. Patient cannot get into see her PCP for an EMG until January and is here for pain control. Encounter Details Date Type Department Care Team (Late st Contact Info) Description 11/24/2024 1:09 PM EDT - 11/24/2024 2:32 PM EDT Emergency [facility] Emergency Department [address] [place], [place] [id number] Acute exacerbation of chronic low back pain (Primary Dx) Discharge Disposition: Home or Self Care Social History Tobacco Use Types Packs/Day Years Used Date Smoking Tobacco: Former Cigarettes Smokeless Tobacco: Never Alcohol Use Standard Drinks/Week Comments Not Currently 0 (1 standard drink = 0.6 oz pur e alcohol) Comments No Sex and Gender Information Value Date Recorded Sex Assigned at Female 11/24/2024 1:04 PM EDT Legal Sex Female 1:52 PM EST Gender Identity Not on file Sexual Orientation Not on file documented as of this encounter Last Filed Vital Signs Vital Sign Reading Time Taken Comments Blood Pressure 117/76 11/24/2024 1:00 PM EDT Pulse 89 11/24/2024 1:00 PM EDT Temperature 36.7 C (98 F) 11/24/2024 1:00 PM EDT Respiratory Rate 16 11/24/2024 1:00 PM EDT Oxygen Saturation 94% 11/24/2024 1:12 PM EDT Inhaled Oxygen Concentration - - Weight - - Height - - Body Mass Index - - documented in this encounter Discharge Instructions * Discharge Instructions* Alicia Dunn APRN - CNP - 11/24/2024 2:21 PM EDT Begin taking gabapentin as directed by pain management. Take steroids as directed until complete. Continue the anti-inflammatory medications and muscle relaxer for pain. Use lidocaine patch topically and apply ice. Rest and follow up with pain management as previously arranged. * Attachments The following attachments cannot be sent through Care Everywhere. * Back Pain (Georgian) documented in this encounter Medications at Time of Discharge methylPREDNISolon e (MEDROL, QUIN,) 4 MG tablet Follow package insructions. 1 kit 11/24/2024 11/30/2024 lidocaine (LIDODERM) 5 % Place 1 patch onto the skin daily for 10 days 12 hours on, 12 hours off. 10 patch 11/24/2024 12/04/2024 cyclobenzaprine (FLEXERIL) 10 MG tablet Take 1 tablet by mouth 3 times daily as needed for Muscle spasms traMADol (ULTRAM) 50 MG tablet Take 1 tablet by mouth every 6 hours as needed for Pain. Max Daily Amount: 200 mg buPROPion (WELLBUTRIN XL) 300 MG extended release tablet Take 1 tablet by mouth every morning 02/10/2024 hydrOXYzine pamoate (VISTARIL) 25 MG capsule Take 1 capsule by mouth 3 times daily as needed 04/22/2024 norgestimate-ethi nyl estradiol (ANIL) 0.25-35 MG-MCG per tablet Take 1 tablet by mouth daily documented as of this encounter Plan of Treatment Not on file documented as of this encounter Visit Diagnoses Diagnosis Acute exacerbation of chronic low back pain- Primary documented in this encounter Care Teams Rn Endocrinology Relationship Specialty Start Date End Date Ottoniel Romeo DO [address] [facility];[address] [place] [address] PCP - General Family Medicine 07/20/24 documented as of this encounter
[2024-11-28 12:49] VITALS: BP 116/84; PULSE 99; TEMP 36.4; O2SAT 97; BMI 36.0
--- OUTSIDE RECORDS SUMMARY | 2024-11-28 12:51 | XMS_ITS | Clinical Summary ---
Author Organization [facility] Address [address] [facility] [place] [address] Care Team Providers Care Feeder Worker Power Unit Operator Name Role Phone Destinee Britton MD Primary Care Provider [phone] Allergies No known active allergies Medications norgestimate-ethi nyl estradiol (Sprintec 28) 0.25-35 MG-MCG tabletIndications :Encounter for initial prescription of contraceptive pills Take 1 tablet by mouth Daily 90 tablet 2 4 12/07/19 25 Active buPROPion XL (Wellbutrin XL) 150 MG 24 hr tablet Take 150 mg by mouth in the morning. Active hydrOXYzine pamoate (Vistaril) 25 MG capsule Take 25 mg by mouth 3 (three) times a day as needed 4 Active metFORMIN (Glucophage) 500 MG tabletIndications :PCOS (polycystic ovarian syndrome) TAKE 1 TABLET (500 MG) BY MOUTH IN THE MORNING AND IN THE EVENING WITH MEALS 180 tablet 1 4 Active cetirizine (ZyrTEC) 10 MG tablet TAKE 1 TABLET BY MOUTH EVERY DAY for 30 Days Active cyclobenzaprine (Flexeril) 10 MG tablet Take 1 tablet by mouth 3 (three) times a day as needed Active gabapentin (Neurontin) 100 MG capsule Take 300 mg by mouth 5 Active ibuprofen 600 MG tablet PLEASE SEE ATTACHED FOR DETAILED DIRECTIONS for 8 Days Active methocarbamol (Robaxin) 500 MG tablet Take 1,000 mg by mouth Active norgestimate-ethi nyl estradiol (Ortho Tri-Cyclen LO) 0.18/0.215/0.25 MG-25 MCG tabletIndications :Unwanted fertility Take 1 tablet by mouth Daily 90 tablet 1 5 08/10/19 26 Active Active Problems Problem Noted Date Diagnosed Date Discogenic low back pain 08/10/2024 Lumbar radiculopathy 08/10/2024 PCOS (polycystic ovarian syndrome) 05/28/2024 Acne 05/20/2024 Acquired spondylolisthesis 05/20/2024 Bilateral acute otitis media 05/20/2024 Depression 05/20/2024 Irregular periods 05/20/2024 Menorrhagia with regular cycle 05/20/2024 Chronic back pain 05/20/2024 Other chronic pain 05/20/2024 Pain in thoracic spine 05/20/2024 Protruded lumbar disc 05/20/2024 Seasonal allergic rhinitis due to pollen 024 Adjustment disorder with anxiety 12/26/2023 Phase of life problem 04/25/2020 Recurrent major depressive disorder, in full rem ission 04/25/2020 Encounters Date Type Department Care Team Description 11/25/[address] [facility] [address] [place] [address] Ladan Kramer MA Contraception 09/19/[address] [facility] [address] [place] [address] Jovita Salas CNM Encounter for initial prescription of contraceptive pills 09/10/[address] [facility] [address] [place] [address] Jovita Salas CNM from Last 3 Months Immunizations Immunization Administration Dates Next Due DTaP / Hep B / IPV 03/03/2006 DTaP, Unspecified 04/03/2006, 2,2000,10/22,2000 Hep B, Adolescent or Pediatric 6,2000,2000,06/18 HiB, unspecified 09/17/2001, 1,2000,08/20 Influenza, Recombinant, inje ctable, preservative free 04/29/2024 Influenza, injectable, MDCK, preservative free, quadrivalent 07/10/2019,07/17/2018 MMR 04/03/2006,03/03/2006,12/23/2001 Meningococcal MCV4P 03/02/2018,05/19/2013 Polio, Unspecified 04/03/2006, 1,2000,08/20 SARS-COV-2 (COVID-19) vaccin e, mRNA, spike protein, LNP, PF, anuj-sucrose, 30 mcg/0.3 mL 04/29/2024 Tdap 05/19/2013 Varicella 05/19/2013,04/03/2006 Family History Medical History Relation Name Comments Diabetes Mother Kelsy Patterson Heart failure Other g-ma Cancer Paternal Grand[facility] Diabetes Sister 2 Jovana [facility] Mental illness Sister 2 Jovana [facility] Relation Name Status Comments Father Alive Mother Kelsy Patterson Alive Other Paternal Grandmother [facility] Sister 1 Alive Sister 2 Jovana [facility] Social History Tobacco Use Types Packs/Day Years Used Date Smoking Tobacco: Never Smokeless Tobacco: Never Tobacco Cessation:Counseling Given: Not Answered Comments:Currently Vape everyday Alcohol Use Standard Drinks/Week Comments Not Currently 0 (1 standard drink = 0.6 oz pur e alcohol) caffeine: 1-2 cups per day [id number] Health Literacy Answer Date Recor ded How often do you need to hav e someone help you when you read instructions, pamphlets, or other written material from your doctor or pharmacy? Never 05/20/2024 Social Connection and Isolation Panel [NHANES] A nswer Date Recorded In a typical week, how many times do you talk on the phone with family, friends, or neighbors? Twice a week 05/20/2024 How often do you get together with friends or re latives? Once a week 05/20/2024 How often do you attend worship or muslim serv ices? Never 05/20/2024 Do you belong to any clubs o r organizations such as worship groups, unions, fraternal or athletic groups, or school groups? No 05/20/2024 How often do you attend meet ings of the clubs or organizations you belong to? Never 05/20/2024 Are you , , di vorced, , never , or living with a partner? Never 05/20/2024 AUDIT-C Answer Date Recorded Q1: How often do you have a drink containing alc ohol? Monthly or less 05/20/2024 Q2: How many drinks containi ng alcohol do you have on a typical day when you are drinking? 1 or 2 05/20/2024 Q3: How often do you have si x or more drinks on one occasion? Less than monthly 05/20/2024 Overall Financial Resource Strain (CARDIA) Answe r Date Recorded How hard is it for you to pa y for the very basics like food, housing, medical care, and heating? Not hard at all 05/20/2024 PHQ-2 Answer Date Recorded Patient Health Questionnaire-2 Score 0 05/20/2024 [facility] - Occupational Stress Questionnaire Answer Date Recorded Do you feel stress - tense, restless, nervous, or anxious, or unable to sleep at night because your mind is troubled all the time - these days? To some extent 05/20/2024 Exercise Vital Sign Answer Date Recorde d On average, how many days pe r week do you engage in moderate to strenuous exercise (like a brisk walk)? 0 days 05/20/2024 On average, how many minutes do you engage in exercise at this level? 0 min 05/20/2024 Hunger Vital Sign Answer Date Recorded Within the past 12 months, y ou worried that your food would run out before you got the money to buy more. Never true 05/20/20 24 Within the past 12 months, t he food you bought just didn't last and you didn't have money to get more. Never true 05/20/2024 PRAPARE - Transportation Answer Date Re corded In the past 12 months, has l ack of transportation kept you from medical appointments or from getting medications? No 05/07 In the past 12 months, has l ack of transportation kept you from meetings, work, or from getting things needed for daily living? No 05/20/2024 Housing Stability Vital Sign Answer Elieser e Recorded In the last 12 months, was t here a time when you were not able to pay the mortgage or rent on time? No 05/20/2024 In the past 12 months, how m any times have you moved where you were living? 0 05/20/2024 At any time in the past 12 m [facility], were you homeless or living in a senior living (including now)? No 05/20/2024 Comments No Sex and Gender Information Value Date Recorded Sex Assigned at Female 06/25/2023 1:54 PM EST Legal Sex Female 6:57 PM EDT Gender Identity Female 06/25/2023 1:54 PM EST Sexual Orientation Not on file Last Filed Vital Signs Vital Sign Reading Time Taken Comments Blood Pressure 118/70 08/10/2024 4:06 PM EST Pulse 91 05/24/2024 8:46 AM EST Temperature - - Respiratory Rate 18 05/24/2024 8:46 AM EST Oxygen Saturation 97% 05/24/2024 8:46 AM EST Inhaled Oxygen Concentration - - Weight 111 kg (245 lb 9.6 oz) 08/10/2024 4:06 PM EST Height 167.6 cm (5' 6 ) 08/10/2024 4:06 PM EST Body Mass Index 39.64 08/10/2024 4:06 PM EST Plan of Treatment Upcoming Encounters Date Type Department Care Team (Late st Contact Info) Description 01/06/2025 3:00 PM EDT Procedure Visit [facility] [address] [id number] Mack Akhtar, [address] [place] [id number] 02/08/2025 4:00 PM EDT Office Visit [facility] [address] [place] [address] Jovita Salas, CNM [address] [place] [address] Health Maintenance Due Date Last Done Comments Influenza Vaccine Completed 04/29/2024, 07/10/2019, 07/17/2018 Insurance BCBS Care Teams Feeder Worker Power Unit Operator Relationship Specialty Start Date End Date Destinee Britton MD [address] [place] [address] PCP - General Family Medicine 11/12/22
--- OUTSIDE RECORDS SUMMARY | 2024-11-28 12:51 | XMS_ITS | Clinical Summary ---
[facility] Organization [facility] Address [address] [place] [address] Care Team Providers Care Sales Record Clerk Name Role Phone Ottoniel Romeo Primary Care Provider [phone] Allergies No known active allergies Medications buPROPion (WELLBUTRIN XL) 300 MG extended release tablet Take 1 tablet by mouth every morning 02/10/2024 Active hydrOXYzine pamoate (VISTARIL) 25 MG capsule Take 1 capsule by mouth 3 times daily as needed 04/22/2024 Active norgestimate-et hinyl estradiol (ANIL) 0.25-35 MG-MCG per tablet Take 1 tablet by mouth daily Active cyclobenzaprine (FLEXERIL) 10 MG tablet Take 1 tablet by mouth 3 times daily as needed for Muscle spasms Active traMADol (ULTRAM) 50 MG tablet Take 1 tablet by mouth every 6 hours as needed for Pain. Max Daily Amount: 200 mg Active gabapentin (NEURONTIN) 100 MG capsule Take 3 capsules by mouth 3 times daily for 3 days. Intended supply: 30 days 27 capsule 08/05/2024 Active methylPREDNISol one (MEDROL, QUIN,) 4 MG tablet Follow package insructions. 1 kit 11/24/2024 12/01/19 25 Active lidocaine (LIDODERM) 5 % Place 1 patch onto the skin daily for 10 days 12 hours on, 12 hours off. 10 patch 11/24/2024 12/05/19 25 Active Encounters Date Type Department Care Team Description 11/24/2024 1:09 PM EDT - 11/24/2024 2:32 PM EDT Emergency [facility] Emergency Department [address] [id number] Acute exacerbation of chronic low back pain (Primary Dx) Discharge Disposition: Home or Self Care 11/24/2024 Travel from Last 3 Months Social History Tobacco Use Types Packs/Day Years Used Date Smoking Tobacco: Former Cigarettes Smokeless Tobacco: Never Tobacco Cessation:Counseling Given: Not Answered Alcohol Use Standard Drinks/Week Comments Not Currently 0 (1 standard drink = 0.6 oz pur e alcohol) Comments No Sex and Gender Information Value Date Recorded Sex Assigned at Female 11/24/2024 1:04 PM EDT Legal Sex Female 1:52 PM EST Gender Identity Not on file Sexual Orientation Not on file Last Filed Vital Signs Vital Sign Reading Time Taken Comments Blood Pressure 117/76 11/24/2024 1:00 PM EDT Pulse 89 11/24/2024 1:00 PM EDT Temperature 36.7 C (98 F) 11/24/2024 1:00 PM EDT Respiratory Rate 16 11/24/2024 1:00 PM EDT Oxygen Saturation 94% 11/24/2024 1:12 PM EDT Inhaled Oxygen Concentration - - Weight 108.9 kg (240 lb) 07/20/2024 3:37 PM EST Height 170.2 cm (5' 7 ) 07/20/2024 3:37 PM EST Body Mass Index 37.59 07/20/2024 3:37 PM EST Plan of Treatment Health Maintenance Due Date Last Done Comments Depression Screen 2012 HIV screen 2015 HPV vaccine (1 - 3-dose series) 2015 Chlamydia/GC screen 2016 Hepatitis C screen 2018 Pap smear 2021 DTaP/Tdap/Td vaccine (7 - Td or Tdap) 05/19/2023 05/19/2013, 04/03/2006, 03/03/2006, Additional history exists Hib vaccine Completed 09/17/2001, 12/05, 2000, Additional history exists Hepatitis B vaccine Completed 04/03/2006, 03/03/2006, 2000, Additional history exists Polio vaccine Completed 04/03/2006, 02/05, 2000, Additional history exists Varicella vaccine Completed 05/19/2013, 04/03/2006 Meningococcal (ACWY) vaccine Completed 03/02/2018, 05/19/2013 COVID-19 Vaccine Completed 04/29/2024, , 11/18/2020 Flu vaccine Completed 04/29/2024, 10/2019, 07/17/2018 Hepatitis A vaccine Aged Out No longe r eligible based on patient's age to complete this topic Meningococcal B vaccine Aged Out No l onger eligible based on patient's age to complete this topic Pneumococcal 0-49 years Vaccine Aged Out No longer eligible based on patient's age to complete this topic Insurance [place] BCBS Care Teams Sales Record Clerk Relationship Specialty Start Date End Date Ottoniel Romeo DO [address] [place] [address];[address] [place] [address] PCP - General Family Medicine 07/20/24
--- OUTSIDE RECORDS SUMMARY | 2024-11-28 12:51 | XMS_ITS | Patient Health Record ---
Author Organization [facility] Address [address] [place] [address] Care Team Providers Care Saw Boss Name Role Phone Nancy Montes De Oca Unavailable [phone] Edgar Patricio Unavailable [phone] Allergies No Known Allergies Reason For Referral Reason PRIOR AUTH APPROVED ANTHEM...MRI lumbar scheduled 08/03/24 DONE Diagnosis 1 Lumbar radiculopathy (M54.16) Referral Organization [facility] Referring Provider [facility] Referring Provider Last Name [facility] Referring Provider Speciality Orthopedic Surgery Referred Organization [facility] Referred Address [address] [place] [phone], Procedure 1 MRI Lumbar Spine w/o Dye ([id number]) General Notes Kathy Deal 07/27/19 11:05:31 AM >, Demetria Hannon 07/27/2024 11:28:31 AM > PER PEPITO PRIOR AUTH HAS BEEN APPROVED FROM 07/27/2024-08/25/2024 AUTH # [id number], AUTH IN CHART. Referral Priority Stat Reason Referral Dr. Sheng capellan and treat L4-S1 YELENA Diagnosis 1 Lumbar disc herniati on (M51.26) Referral Organization [facility] Referring Provider First Name Inherman Referring Provider Last Name lisaZena Referring Provider Speciality Orthopedic Surgery Referred Organization [facility] Referred Provider Edgar Patricio Referred Address [address] [place] [phone],[place] General Notes SayKathy 08/03/19 12:17:52 PM >, Claudia Eladia 08/04/2024 08:27:50 AM >CAlled and lmovm to schedule with Dr Patricio-september, Eladia Taylor 08/04/2024 08:36:04 AM >scheduled 3.3.25 Referral Priority Routine Reason [phone] fax [facility]; Pt requesting pain management at that location. Diagnosis 1 Lumbar radiculopathy (M54.16) Referral Organization [facility] Referring Provider First Name [facility] Referring Provider Last Name [facility] Referring Provider Speciality Orthopedic Surgery Referred Organization [facility] Referred Address [place], [place], General Notes Malia Lobato 12/2024 02:22:47 PM >, Malia Lobato 08/13/2024 09:43:43 AM >FYI: She is scheduled for an appt with Dr. Patricio, father called and requested a referral to [facility], but keeping appt with Sheng if they can't get in., Claudia Eladia 08/13/2024 10:10:21 AM >Noted- - she is on cancellation list in case he gets anything or adds on any days. Referral Priority Routine Medications Medication SIG (Take, Route, Frequency, Duration) Notes Start Date End Date Status CETIRIZINE HCL 10 MG TAKE 1 TABLET BY MOUTH EVERY DAY for 30 Days Not-Taking buPROPion 300 mg/24 hours 1 tab(s) orall y every 24 hours Active Bupap 07/27/2024 Active hydrOXYzine hydrochloride 25 mg 1 tab(s) orally 3 times a day Active metFORMIN 500 MG TAKE 1 TABLET (500 MG) BY MOUTH IN THE MORNING AND IN THE EVENING WITH MEALS for 30 Days Not-Taking ibuprofen 600 mg PLEASE SEE ATTACHED FOR DETAILED DIRECTIONS for 8 Days Not-Taking buPROPion 07/27/2024 Active ethinyl estradiol-norgestimate Activ e cyclobenzaprine 07/27/2024 Act marjorie Social History Tobacco Use: Social History Observation [...] Question Answer Notes Tobacco use: Former smoker Problems Problem Type SNOMED Code ICD Code Onset Dates Problem Status W/U Status Risk Notes Problem 728807820 Lumbar radiculopathy (M54.16) Active confirmed Problem 114740270 Lumbar disc herniation (M51.26) Active confirmed Problem 494823800 Discogenic low back pain (M51.360) Active confirmed Vital Signs Height 5ft 7in in 08/03/2024 Weight 240 lbs 08/03/2024 BMI 37.59 08/03/2024 Encounters Encounter Location Date Provider Diagnosis [facility] [address] [place] [address] 08/03/2024 [facility] Lumbar radiculopathy M54.16 [facility] [address] [place] [address] 07/27/2024 [facility] Lumbar radiculopathy M54.16 ; Discogenic low back pain M51.360 and Right hip pain M25.551 [facility] [address] [place] [address] 08/03/2024 [facility] Lumbar disc herniation M51.26 and Lumbar radiculopathy M54.16 [facility] [address] [place] [address] 08/05/2024 Edgar Patricio [facility] [address] [place] [address] 08/12/2024 [facility] Lumbar radiculopathy M54.16 ; Right hip pain M25.551 ; Discogenic low back pain M51.360 and Lumbar disc herniation M51.26 Assessments Encounter Date Diagnosis (ICD Code) Assessment Notes Treatment Notes Treatment Clinical Notes Section Notes 07/27/2024 Lumbar radiculopathy (ICD-10 - M54.16) 1- DDD L5-S1 2- Facet Arthopathy L5-S1 3-Lumbar radiculopathy 4-Discogenic back pain At this time we will provide her with a MDP to be taken as follows: We will order MRI imaging to further evaluate her symptoms given that she has now developed significant weakness in the R foot 4/5 dorsiflexion concerning for neurologic injury which will likely require intervention to prevent permanent neurologic deficit. 07/27/2024 Discogenic low back pain (ICD-10 - M51.360) 1- DDD L5-S1 2- Facet Arthopathy L5-S1 3-Lumbar radiculopathy 4-Discogenic back pain At this time we will provide her with a MDP to be taken as follows: We will order MRI imaging to further evaluate her symptoms given that she has now developed significant weakness in the R foot 4/5 dorsiflexion concerning for neurologic injury which will likely require intervention to prevent permanent neurologic deficit. 08/03/2024 Lumbar radiculopathy (ICD-10 - M54.16) 08/03/2024 Lumbar radiculopathy (ICD-10 - M54.16) 1. L4-S1 disc herniation 2. lumbar radiculopathy discussed MRI results with the patient. The patient would like to leave surgery as a last resort option, thus we will refer the patient to Dr. Patricio for YELENA L4-S1. We will follow up with her PRN 08/03/2024 Lumbar disc herniation (ICD-10 - M51.26) 1. L4-S1 disc herniation 2. lumbar radiculopathy discussed MRI results with the patient. The patient would like to leave surgery as a last resort option, thus we will refer the patient to Dr. Patricio for YELENA L4-S1. We will follow up with her PRN 08/12/2024 Right hip pain (ICD-10 - M25.551) 08/12/2024 Lumbar radiculopathy (ICD-10 - M54.16) 07/27/2024 Right hip pain (ICD-10 - M25.551) 1- DDD L5-S1 2- Facet Arthopathy L5-S1 3-Lumbar radiculopathy 4-Discogenic back pain At this time we will provide her with a MDP to be taken as follows: We will order MRI imaging to further evaluate her symptoms given that she has now developed significant weakness in the R foot 4/5 dorsiflexion concerning for neurologic injury which will likely require intervention to prevent permanent neurologic deficit. 08/12/2024 Discogenic low back pain (ICD-10 - M51.360) 08/12/2024 Lumbar disc herniation (ICD-10 - M51.26) 07/27/2024 Other 1- MDP 2- MRI L-spine 1- DDD L5-S1 2- Facet Arthopathy L5-S1 3-Lumbar radiculopathy 4-Discogenic back pain At this time we will provide her with a MDP to be taken as follows: We will order MRI imaging to further evaluate her symptoms given that she has now developed significant weakness in the R foot 4/5 dorsiflexion concerning for neurologic injury which will likely require intervention to prevent permanent neurologic deficit. 08/03/2024 Other We will follow up with her PRN and refer the patient to Dr. Patricio. 1. L4-S1 disc herniation 2. lumbar radiculopathy discussed MRI results with the patient. The patient would like to leave surgery as a last resort option, thus we will refer the patient to Dr. Patricio for YELENA L4-S1. We will follow up with her PRN Plan Of Treatment Pending Test Test Name Order Date Lumbar spine 2v ap and lat - [id number] 07/27 Hip, right 2v WITH PELVIS - 11265 2024 Future Test Test Name Order Date MRI : Lumbosacral Spine W/O Contrast - 7 214707/27/2024 Insurance Providers Payer Name Payer Address Payer Phone Subscriber Number Group Number Insured Name Patient Relationship to Insured Coverage Start Date Coverage End Date Elvin [address] [address] [place] [address] [id number] ELADIA PAN Self - patient is the insured Medical (General) History Medical History History ICD Code Anxiety: Yes Chronic back pain:: Yes CPAP Machine:: No Depression: Yes Healthcare worker: No Latex Allergy: No Sciatica: Yes Seen a Psychiatrist: Yes Have you been in close conta ct with someone who has had MRSA within the last year?: No Have you ever had or presently have MRSA ?: No Have you been seen by a dentist in the l ast year?: Yes Do you have any dental probl ems i.e. Broken, loose, or chipped teeth, absess, gum disease?: No
--- OUTSIDE RECORDS SUMMARY | 2024-11-28 12:51 | XMS_ITS | Encounter Summary ---
Author Organization [facility] Address [address] [place] [address] Care Team Providers Care After School Coordinator Name Role Phone Destinee Britton MD Primary Care Provider [phone] Encounter Details Date Type Department Care Team (Late st Contact Info) Description 09/10/2024 Telephone [facility] [address] [place] [address] Jovita Salas, ALEJANDRA [address] [place], [place] [id number] Social History Tobacco Use Types Packs/Day Years Used Date Smoking Tobacco: Never Smokeless Tobacco: Never Comments:Currently Vape ever yday Alcohol Use Standard Drinks/Week Comments Not Currently [...] week 05/20/2024 How often do you attend anglican or jehovah's witness serv ices? Never 05/20/2024 Do you belong to any clubs o r organizations such as anglican groups, unions, fraternal or athletic groups, or [...] Recorded Patient Health Questionnaire-2 Score 0 05/20/2024 [facility] - Occupational Stress Questionnaire Answer Date Recorded [...] any time in the past 12 m ont, were you homeless or living in a senior living (including now)? No 05/20/2024 Comments No Sex and Gender Information Value Date Recorded Sex Assigned at Female 06/25/2023 1:54 PM EST Legal Sex Female 6:57 PM EDT Gender Identity Female 06/25/2023 1:54 PM EST Sexual Orientation Not on file documented as of this encounter Miscellaneous Notes * Telephone Encounter - Joselin Baptiste MA - 10/07/2024 11:06 AM EDT Called pt left vm * Telephone Encounter - Chelsy Austin - 09/10/2024 12:24 PM EST Pt is calling about new control - she said this is her first week taking the pill and she started her period. She thinks its not strong enough maybe. Please advise. Not sure who to send to since marilynn is out of office.. documented in this encounter Plan of Treatment Upcoming Encounters Date Type Department Care Team (Late st Contact Info) Description 01/06/2025 3:00 PM EDT Procedure Visit [facility] [address] [address] Mack Akhtar DO [address] [place] [address] 02/08/2025 4:00 PM EDT Office Visit [facility] [address] [place] [address] Jovita Salas CNM [address] [place] [address] documented as of this encounter Visit Diagnoses Not on filedocumented in this encounter Care Teams After School Coordinator Relationship Specialty Start Date End Date Destinee Britton MD [address] [place] [address] PCP - General Family Medicine 11/12/22 documented as of this encounter
--- OUTSIDE RECORDS SUMMARY | 2024-11-28 12:51 | XMS_ITS | Encounter Summary ---
Author Organization [facility] Address [address] [place] [address] Care Team Providers Care Edger Machine Operator Name Role Phone Destinee Britton MD Primary Care Provider [phone] Reason for Visit * Reason Onset Date Comments Contraception 11/25/2024 Encounter Details Date Type Department Care Team (Late st Contact Info) Description 11/25/2024 Telephone [facility] [address] [place] [address] Ladan Kramer MA Contraception Social History Tobacco Use Types Packs/Day Years [...] week 05/20/2024 How often do you attend taoist or muslim serv ices? Never 05/20/2024 Do you belong to any clubs o r organizations such as taoist groups, unions, fraternal or athletic groups, or [...] Recorded Patient Health Questionnaire-2 Score 0 05/20/2024 [facility] - [...] any time in the past 12 m [facility], were you homeless or living in a long term (including now)? No 05/20/2024 Comments No Sex and Gender Information Value Date Recorded Sex Assigned at Female 06/25/2023 1:54 PM EST Legal Sex Female 6:57 PM EDT Gender Identity Female 06/25/2023 1:54 PM EST Sexual Orientation Not on file documented as of this encounter Miscellaneous Notes * Telephone Encounter - Ladan Kramer MA - 11/25/2024 11:33 AM EDT Patient called and stated that she was in the [facility] ER yesterday due to back and abdominal pain. Patient states that this pain will occur prior to her menstrual cycle. Patient seen Rosi on 08/10/24 to have her control changed to [facility] from the [facility]. Patient is wondering if there is any other type of control that will help control the cramping better. Patient states that she has had this happen more than once and last time she had a period for almost 2 months. Callback number [phone] documented in this encounter Plan of Treatment Upcoming Encounters Date Type Department Care Team (Late st Contact Info) Description 01/06/2025 3:00 PM EDT Procedure Visit [facility] [address] [address] Mack Akhtar DO [address] [place] [address] 02/08/2025 4:00 PM EDT Office Visit [facility] [address] [place] [address] Jovita Salas CNM [address] [place] [address] documented as of this encounter Visit Diagnoses Not on filedocumented in this encounter Care Teams Edger Machine Operator Relationship Specialty Start Date End Date Destinee Britton MD [address] [place] [address] PCP - General Family Medicine 11/12/22 documented as of this encounter
--- OUTSIDE RECORDS SUMMARY | 2024-11-28 12:51 | XMS_ITS | Encounter Summary ---
Author Organization [facility] Address [address] [place] [address] Care Team Providers Care Gun Perforator Loader Name Role Phone Ottoniel Romeo DO Primary Care Provider [phone] Encounter Details Date Type Department Care Team (Latest Contact Info) Description 11/24/2024 Travel Social History Tobacco Use Types Packs/Day Years [...] on file documented as of this encounter Plan of Treatment Not on file documented as of this encounter Visit Diagnoses Not on filedocumented in this encounter Care Teams Gun Perforator Loader Relationship Specialty Start Date End Date Ottoniel Romeo DO [address] [place] [address];[address] [place] [address] PCP - General Family Medicine 07/20/24 documented as of this encounter
--- OUTSIDE RECORDS SUMMARY | 2024-11-28 12:51 | XMS_ITS | Clinical Summary ---
Author Organization [facility] Address [id number] [address] [place] [address] Care Team Providers Care Stereotyper Name Role Phone IgnacionickernestineOttoniel calderon Snuil BOWEN Primary Care Provider [phone] Allergies No known active allergies Medications * This document contains information received from the source organization and may not represent a complete record from that organization. hydrOXYzine (VISTARIL) 25 mg capsule Take 1 capsule (25 mg total) by mouth 3 (three) times a day as needed for anxiety. 30 capsule 04/22/2024 Active MONO-LINYAH 0.25-35 mg-mcg per tablet Take 1 tablet by mouth. Active buPROPion XL (WELLBUTRIN XL) 300 mg 24 hr tabletIndicatio ns:Major depressive disorder, recurrent episode, moderate (CMS-HCC) TAKE 1 TABLET BY MOUTH IN THE MORNING 90 tablet 3 09/09/2024 Active Active Problems Problem Noted Date Diagnosed Date PCOS (polycystic ovarian syndrome) 05/28/2024 Adjustment disorder with anxiety 12/26/2023 Recurrent major depressive disorder, in full rem ission 04/25/2020 Phase of life problem 04/25/2020 Encounters * This document contains information received from the source organization and may not represent a complete record from that organization. Date Type Department Care Team Description 11/11/2024 Travel 10/14/2024 Travel 09/17/2024 Travel 09/16/2024 Travel from Last 3 Months Immunizations Immunization Administration Dates Next Due COVID-19, mRNA, LNP-S, PF, 100mcg/0.5mL Dose ,11/18/2020 Social History Tobacco Use Types Packs/Day Years Used Date Smoking Tobacco: Never Childcare Answer Date Recorded Childcare Unknown 12/16/2018 Employment Answer Date Recorded Employment Unknown 12/16/2018 Hunger Screening Answer Date Recorded Within the past 12 months we worried whether our food would run out before we got money to buy more. Never True 09/16/2024 Within the past 12 months th e food we bought just didn't last and we didn't have money to get more. Never True 09/16/2024 Purpose - Life Answer Date Recorded Purpose and direction in life Unknown Comments No Sex and Gender Information Value Date Recorded Sex Assigned at Not on file Legal Sex Female 11:57 AM EDT Gender Identity Not on file Sexual Orientation Not on file Last Filed Vital Signs Vital Sign Reading Time Taken Comments Blood Pressure 120/74 07/05/2023 8:45 AM EST Pulse 52 07/05/2023 8:44 AM EST Temperature 37 C (98.6 F) 07/05/2023 8:44 AM EST Respiratory Rate 18 07/05/2023 8:44 AM EST Oxygen Saturation 99% 07/05/2023 8:45 AM EST Inhaled Oxygen Concentration - - Weight 106.6 kg (235 lb) 07/05/2023 8:44 AM EST Height 167.6 cm (5' 6 ) 07/05/2023 8:44 AM EST Body Mass Index 37.93 07/05/2023 8:44 AM EST Plan of Treatment Health Maintenance Due Date Last Done Comments Depression Screening 2012 Pap Smear 2021 DTaP,Tdap and Td Vaccines (7 - Td or Tdap) 05/19/2023 05/19/2013, 04/03/2006, 03/03/2006, Additional history exists Adult BMI Screening 07/05/2024 07/05/2023 Influenza Vaccine 03/07/2025 04/29/2024, , 07/17/2018 Tobacco Screening 09/17/2025 09/17/2024 COVID-19 Vaccine Completed 04/29/2024, , 11/18/2020 Medical Devices Not on file Insurance ANTHEM Care Teams Stereotyper Relationship Specialty Start Date End Date Ottoniel Romeo DO PCP - General Family Medicine 04/03/20
--- NOTE | 2024-11-28 13:04 | ED.GENADUL1 ---
HPI HPI - General Adult General Chief complaint: Nausea/Vomiting/Diarrhea Stated complaint: VOMITING, DIARRHEA, LOWER BACK PAIN Time Seen by Provider: 11/28/24 12:43 Source: patient Mode of arrival: walk-in History of Present Illness HPI narrative: 24-year-old female presents for nausea vomiting and diarrhea. It started this morning. She was recently started on 300 mg of gabapentin 3 times a day and both the patient and her mother think it might be causing her symptoms. She had taken gabapentin in the past but at a much lower dose. No hematemesis or fever. She has not been around anybody who has been ill. Related Data Home Medications ?Medication ?Instructions ?Recorded ?Confirmed bupropion HCl 300 mg 24 hr tablet, 300 mg PO DAILY 08/16/24 09/13/24 extended release etodolac 400 mg tablet (Lodine) 400 mg PO BID 08/16/24 09/13/24 norgestimate 0.18 mg/0.215mg/0.25 1 tab PO DAILY 08/16/24 09/13/24 mg-ethinyl estradiol 0.025 mg tablet (Nkh-Lo-Gpachq) Previous Rx's ?Medication ?Instructions ?Recorded gabapentin 300 mg capsule 300 mg PO TID #90 caps 11/24/24 ondansetron 4 mg disintegrating 4 mg PO Q6H PRN nausea and 11/28/24 tablet vomiting #20 tabs Allergies Allergy/AdvReac Type Severity Reaction Status Date / Time No Known Drug Allergies Allergy Verified 09/13/24 08:20 Opioid HPI Opioid Management Most Recent Opioid Data: Last Pain Scale 8 Today, 16:51 Last MAR Pain Assessment Today, 16:51 Review of Systems ROS Narrative A ten point review of systems is negative except as noted above. [facility] Medical History (Updated 11/28/24 @ 17:36 by Ras Singh MD) Low back pain ?M54.50 - Low back pain, unspecified (ICD-10) Depression ?F32.A - Depression, unspecified (ICD-10) PCOS (polycystic ovarian syndrome) ?E28.2 - Polycystic ovarian syndrome (ICD-10) Surgical History History of ankle surgery ?Z98.890 - Other specified postprocedural states (ICD-10) Social History Little interest or pleasure in doing things: not at all Feeling down, depressed, or hopeless: not at all Exam Narrative Exam Narrative: Nurses note and vital signs reviewed and patient is not hypoxic. General: The patient appears well and in no apparent distress. Patient is resting comfortably on cart. Skin: Warm, dry, no pallor noted. There is no rash noted. Head: Normocephalic, atraumatic Eye: Normal conjunctiva, no drainage Ears, Nose, Mouth, and Throat: oral mucosa is moist. Nares patent. Cardiovascular: Regular Rate and Rhythm Respiratory: Patient is in no distress, no accessory muscle use, lungs are clear to auscultation, no wheezing, rales or rhonchi Back: No bruise or rash GI: Soft and nontender and nondistended Musculoskeletal: The patient has no evidence of calf tenderness, no pitting edema, symmetrical pulses noted bilaterally Neurological: A&O, normal speech Psychiatric: Cooperative Constitutional Vital Signs, click to edit/add: Last Vital Signs Temp 97.6 F 11/28/24 12:49 Pulse 99 H 11/28/24 12:49 Resp 18 11/28/24 12:49 BP 116/84 11/28/24 12:49 Pulse Ox 97 11/28/24 12:49 O2 Del Method Room Air 11/28/24 12:49 Course Vital Signs Vital signs: Vital Signs Temperature 97.6 F 11/28/24 12:49 Pulse Rate 99 H 11/28/24 12:49 Respiratory Rate 18 11/28/24 12:49 Blood Pressure 116/84 11/28/24 12:49 Pulse Oximetry 97 11/28/24 12:49 Oxygen Delivery Method Room Air 11/28/24 12:49 Temperature 97.6 F 11/28/24 12:49 Pulse Rate 99 H 11/28/24 12:49 Respiratory Rate 18 11/28/24 12:49 Blood Pressure 116/84 11/28/24 12:49 Pulse Oximetry 97 11/28/24 12:49 Oxygen Delivery Method Room Air 11/28/24 12:49 Medical Decision Making MDM Narrative Medical decision making narrative: WBC elevated at 19,[address] scan shows enteritis. She will be discharged home on Zofran, follow-up with her PCP. No evidence of appendicitis. Treatment diagnosis and follow-up were discussed with the patient. Differential Diagnosis Differential Diagnosis: Appendicitis, gastroenteritis, medication side effect, colitis Lab Data Lab results reviewed: Yes I reviewed the patient's lab results Labs: Lab Results 11/28/24 Range/Units 13:13 WBC 19.1 H (4.0-11.0) 10^3/uL RBC 5.21 (4.20-5.40) 10^6/uL Hgb 16.1 H (12.0-16.0) g/dL Hct 48.2 H (36.0-48.0) % MCV 92.5 (81.0-99.0) fL MCH 30.9 (26.7-34.0) pg MCHC 33.4 (29.9-35.2) g/dL RDW 11.9 (11.0-15.0) % Plt Count 332 (150-450) 10^3/uL MPV 10.0 (9.5-13.5) fL Neut % (Auto) 89.0 H (43.0-75.0) % Lymph % (Auto) 4.5 L (20.5-60.0) % Dickens % (Auto) 5.7 (1.7-12.0) % Eos % (Auto) 0.2 L (0.9-7.0) % Baso % (Auto) 0.2 (0.2-2.0) % Neut # (Auto) 17.0 H (1.4-6.5) 10^3/uL Lymph # (Auto) 0.9 L (1.2-3.8) 10^3/uL Dickens # (Auto) 1.1 H (0.3-0.8) 10^3/uL Eos # (Auto) 0.0 (0.0-0.7) 10^3/uL Baso # (Auto) 0.0 (0.0-0.1) 10^3/uL Abs Immat Gran (auto) 0.07 H (0.00-0.03) 10^3/uL Imm/Tot Granulo (auto) 0.4 (0.0-0.5) % Sodium 141 (136-145) mmol/L Potassium 3.9 (3.5-5.1) mmol/L Chloride 106 (98-107) mmol/L Carbon Dioxide 23.4 (21.0-32.0) mmol/L Anion Gap 15.5 BUN 17.0 (7.0-18.0) mg/dL Creatinine 0.85 (0.55-1.02) mg/dL Est GFR ( Amer) >60 (>=60 mL/min/1.73m^2) Est GFR (Non-Af Amer) >60 (>=60 mL/min/1.73m^2) BUN/Creatinine Ratio 20.0 Glucose 104 (74-106) mg/dL Calcium 9.1 (8.5-10.1) mg/dL Serum HCG, Qual Negative (NEGATIVE) Imaging Data CT scan - abdomen: Radiologist's impression: Mild enteritis and mild mesenteric adenitis, normal appendix Discharge Plan Discharge Chief Complaint: Nausea/Vomiting/Diarrhea Clinical Impression: Enteritis Patient Disposition: Home, Self-Care Time of Disposition Decision: 17:36 Condition: Good Mode of Transportation: Private Vehicle Prescriptions / Home Meds: New ondansetron 4 mg tablet,disintegrating 4 mg PO Q6H PRN (Reason: nausea and vomiting) Qty: 20 0RF No Action bupropion HCl 300 mg tablet extended release 24 hr 300 mg PO DAILY norgestimate-ethinyl estradiol [Gcf-Pw-Ojyrlo] 0.18/0.215/0.25 mg-25 mcg tablet 1 tab PO DAILY etodolac [Lodine] 400 mg tablet 400 mg PO BID gabapentin 300 mg capsule 300 mg PO TID Qty: 90 0RF Print Language: Welsh Instructions: Acute Nausea and Vomiting (ED), Acute Diarrhea (ED) Referrals: Vidal Romeo DO [Primary Care Provider] - 1 week
[2024-11-28] MEDS: 0.9 % SODIUM CHLORIDE 1,000 ML 1000 ML IV (13:16)
[2024-11-28] MEDS: ONDANSETRON PF 4 MG/2 ML VIAL IV ×2 (13:18→16:47)
[2024-11-28 13:21] LABS: Basophils Percent Auto 0.2 % (0.2-2.0); Eosinophils Percent Auto 0.2 % (0.9-7.0); Hematocrit 48.2 % (36.0-48.0); Hemoglobin 16.1 g/dL (12.0-16.0); Immature Granulocytes Abs Auto 0.07 10^3/uL (0.00-0.03); Immature Granulocytes Pct Auto 0.4 % (0.0-0.5); Lymphocytes Absolute Auto 0.9 10^3/uL (1.2-3.8); Lymphocytes Percent Auto 4.5 % (20.5-60.0); Mean Corpuscular HGB Conc 33.4 g/dL (29.9-35.2); Mean Corpuscular Hemoglobin 30.9 pg (26.7-34.0); Mean Corpuscular Volume 92.5 fL (81.0-99.0); Monocytes Absolute Auto 1.1 10^3/uL (0.3-0.8); Monocytes Percent Auto 5.7 % (1.7-12.0); Platelet Count 332 10^3/uL (150-450); Red Blood Count 5.21 10^6/uL (4.20-5.40); Red Cell Distribution Width 11.9 % (11.0-15.0); White Blood Count 19.1 10^3/uL (4.0-11.0)
[2024-11-28 13:34] LABS: Anion Gap 15.5; Calcium 9.1 mg/dL (8.5-10.1); Carbon Dioxide 23.4 mmol/L (21.0-32.0); Chloride 106 mmol/L (98-107); Estimated GFR (African America >60 (>=60 mL/min/1.73m^2); Estimated GFR (Non-African Ame >60 (>=60 mL/min/1.73m^2); Glucose 104 mg/dL (74-106); Potassium 3.9 mmol/L (3.5-5.1); Sodium 141 mmol/L (136-145)
[2024-11-28 13:39] LABS: HCG Qualitative NEGATIVE (NEGATIVE); Internal Control Within Normal Limits
[2024-11-28] MEDS: KETOROLAC TROMETHAMINE 30 MG/ML VIAL IVP (16:51)
== END 2024-11-28 17:44 | disposition home or self-care (01) ==
PROVIDERS: Emergency Provider Emergency Medicine; PCP Student in an Organized Health Care Education/Training Program
DX: K52.9 Noninfective gastroenteritis and colitis, unspecified (principal); I88.0 Nonspecific mesenteric lymphadenitis; R11.2 Nausea with vomiting, unspecified
CPT/HCPCS: 36415; 74177; 80048; 84703; 85025; 96361; 96374; 96375; 96376; 99285; J1885; J2405; Q9967

== ENCOUNTER 2024-12-16 08:21 | Outpatient (OUT) | payer BC, SELFPAY ==
--- OUTSIDE RECORDS SUMMARY | 2024-08-12 10:18 | XMS_ITS ---
Author Organization [facility] Address [address] [place] [address] Care Team Providers Care After School Tutor Name Role Phone Nancy Montes De Oca Unavailable [phone] Reason For Referral Reason [phone] fax [facility]; Pt requesting pain management at that location. Diagnosis 1 Lumbar radiculopathy (M54.16) Referral Organization [facility] Referring Provider First Name Nancy Referring Provider Last Name Tavon Referring Provider Speciality Orthopedic Surgery Referred Organization [facility] Referred Address [place], [place], General Notes Malia Lobato 12/2024 02:22:47 PM >, Malia Lobato 08/13/2024 09:43:43 AM >FYI: She is scheduled for an appt with Dr. Patricio, father called and requested a referral to [facility], but keeping appt with Sheng if they can't get in., Eladia Taylor 08/13/2024 10:10:21 AM >Noted- - she is on cancellation list in case he gets anything or adds on any days. Referral Priority Routine REASON FOR VISIT [facility] Encounters Encounter Location Date Provider Diagnosis [facility] [address] [place] [address] 08/12/2024 Inherman NabilDouglas Lumbar radiculopathy M54.16 ; Right hip pain M25.551 ; Discogenic low back pain M51.360 and Lumbar disc herniation M51.26 Assessments Encounter Date Diagnosis (ICD Code) Assessment Notes Treatment Notes Treatment Clinical Notes Section Notes 08/12/2024 Lumbar radiculopathy (ICD-10 - M54.16) 08/12/2024 Right hip pain (ICD-10 - M25.551) 08/12/2024 Discogenic low back pain (ICD-10 - M51.360) 08/12/2024 Lumbar disc herniation (ICD-10 - M51.26) Plan Of Treatment Referrals Referral Date Details 08/12/2024 08/12/2024, fax [facility]; Pt requesting pain management at that location.[place], [place] Progress Notes * ELADIA SIERRADOB:1999 (24 yo F)Acc No.[id number]:08/12/2024 Patient: ELADIA ZULETA :2000 A ge:24 Y S ex:Female Address:[address] [place] [address], [address] Subjective: * Chief Complaints: * [facility] * Medical History: * Surgical History: * Hospitalization/Major Diagno stic Procedure: * Medications: Objective: * Vitals: * Physical Examination: Assessment: * Assessment: 1. L umbar radiculopathy - M54.16 (Primary) 2 . R ight hip pain - M25.551? 3. D iscogenic low back pain - M51.360 4 . L umbar disc herniation - M51.26 Plan: * Treatment: * Procedure Codes: * true * Date: Generated for Nii amezquita/Judy/eTransmitting on: 0 12/16/2024 08:23 AM EDT Consultation Request Notes Referral Date Referring Provider Referred Provider Not es 08/12/2024 Nancy Montes De Oca , fax [facility]; Pt requesting pain management at that location.
--- OUTSIDE RECORDS SUMMARY | 2024-08-24 07:15 | XMS_ITS ---
Author Organization [facility] Address [address] [place] [address] Care Team Providers Care Supervisor Hydrochloric Area Name Role Phone NabilabhishekNancy Cruz Unavailable [phone] TedcoralEdgar Unavailable [phone] Allergies No Known Allergies REASON FOR VISIT Lumbar Disc Herniation- Dr Cruz Medications Medication SIG (Take, Route, Frequency, Duration) Notes Start Date End Date Status CETIRIZINE HCL 10 MG TAKE 1 TABLET BY [facility] EVERY DAY for 30 Days [...] Location Date Provider Diagnosis [facility] [address] [place] [address] 08/24/2024 Edgar Patricio Plan Of Treatment No Information Progress Notes * ELADIA SIERRADOB:1999 (24 yo F)Acc No.[id number]:08/24/2024 Patient: ELADIA ZULETA Provider: Brisa Patricio MD :2000 A ge:24 Y S ex:Female Date:08/24/2024 Address:[address] [place], [place] [phone] Subjective: * Chief Complaints: * 1 . [...] Electronic signature of Edgar Patricio MD on 12/16/2024 at 08:25 AM EDT Sign off status: Pending * Provider: Brisa Patricio MD Date: 0 08/24/2024 Generated for Nii amezquita/Judy/Monica on: 0 12/16/2024 08:25 AM EDT
--- OUTSIDE RECORDS SUMMARY | 2024-09-06 09:00 | XMS_ITS ---
Author Organization [facility] Address [address] [place] [address] Care Team Providers Care Holistic Nutritionist Name Role Phone NabilabhishekZena Cruznereida Unavailable [phone] Edgar Patricio Unavailable [phone] REASON FOR VISIT Lumbar Disc herniation Dr Cruz Encounters Encounter Location Date Provider Diagnosis [facility] [address] [place] [phone] 09/06/2024 Edgar Patricio Plan Of Treatment No Information Progress Notes * ELADIA SIERRADOB:1999 (24 yo F)Acc No.[id number]:09/06/2024 Patient: ELADIA ZULETA Provider: Brisa Patricio MD :2000 A ge:24 Y S ex:Female Date:09/06/2024 Address:[address] [place], [place] [phone] Subjective: * Chief Complaints: * 1 . Lumbar Disc herniation Dr Cruz. * Medical History: Objective: * Vitals: Assessment: Plan: * Treatment: Forms: * Images: * Electronic signature of Edgar Patricio MD on 12/16/2024 at 08:24 AM EDT Sign off status: Pending * Provider: Brisa Patricio MD Date: 0 09/06/2024 Generated for Printi ng/Faaspeng/eTransmitting on: 0 12/16/2024 08:24 AM EDT
--- OUTSIDE RECORDS SUMMARY | 2024-12-03 13:30 | XMS_ITS | Encounter Summary ---
Author Organization [facility] Address [address] [place] [address] Care Team Providers Care Associate Field Service Engineer Name Role Phone Destinee Britton MD Primary Care Provider [phone] Reason for Visit * Reason Comments ER Follow-up Vomiting Nausea Encounter Details Date Type Department Care Team (Late st Contact Info) Description 12/03/2024 1:30 PM EDT Office Visit [facility] [address] [place] [address] Ness Montez NP [address] [place], [place] [id number] Nausea (Primary Dx); Pain of upper abdomen Social History Tobacco Use Types Packs/Day Years [...] week 05/20/2024 How often do you attend restorationist or caodaism serv ices? Never 05/20/2024 Do you belong to any clubs o r organizations such as restorationist groups, unions, fraternal or athletic groups, or [...] Recorded Patient Health Questionnaire-2 Score 0 05/20/2024 [facility] of Occupat ional Health - Occupational Stress [...] any time in the past 12 m [facility], were you homeless or living in a [...] Sign Reading Time Taken Comments Blood Pressure 134/82 12/03/2024 1:44 PM EDT Pulse 90 12/03/2024 2:00 PM EDT Temperature - - Respiratory Rate 18 12/03/2024 1:44 PM EDT Oxygen Saturation 97% 12/03/2024 1:44 PM EDT Inhaled Oxygen Concentration - - Weight 111 kg (244 lb) 12/03/2024 1:44 PM EDT Height 167.6 cm (5' 6 ) 12/03/2024 1:44 PM EDT Body Mass Index 39.38 12/03/2024 1:44 PM EDT documented in this encounter Progress Notes * Ness Montez NP - 12/03/2024 1:30 PM EDT Edwige Patterson is a 24 y.o. female presents with chief complaint of ER Follow-up, Vomiting, and Nausea HPI: History of Present Illness The patient presents for evaluation of nausea, vomiting, and abdominal pain. She experienced a flare-up of her lower back pain last week, which she attributes to a nerve issue.She sought medical attention at the ER on 11/24/2024 but did not receive any treatment or the prescribed lidocaine cream. On 11/28/2024, she began experiencing severe vomiting and diarrhea, prompting another visit to the ER in [place]. A diagnosis of viral gastroenteritis was made following a CT scan with saline and contrast. She was advised that recovery could take several days to a week and was prescribed anti-nausea medication. Despite this, she continues to experience nausea and has been unable to eat since theprevious night. Her diet has been limited to plain rice, toast, and water. She also reports persistent upper abdominal pain, which she believes is due to dry heaving. The pain was particularly severeon 11/28/2024 and 11/29/2024, leading her to suspect norovirus. She attempted to manage her symptoms with Pepto-Bismol on 11/29/2024 but vomited it up. She no longer has diarrhea but reports constipation, for which she has taken a stool softener. She has been using a menthol vape pen and marijuana, the latter of which she reduced after being diagnosed with Cannabinoid Hyperemesis Syndrome (CHS) last year. However, she recently switched back to using cartridges for convenience, which she believes may be exacerbating her symptoms. She used marijuana until last night but has since stopped due to her lack of improvement. She has made dietary changes, eliminating greasy foods and consuming white rice, toast, crackers, and soup broth. Prior to this, her diet was unhealthy due to time constraints preventing her from grocery shopping. She underwent blood work during her last ER visit, which yielded normal results. SOCIAL HISTORY She does not smoke cigarettes but vapes menthol. She uses a marijuana pen and was diagnosed with CHS last year due to heavy use but has since cut down. HPI Flowsheet Row Documentation from 11/30/2024 in [facility] with Lorin Duncan, [place] Hospital Information ED, Hospital or Halfway Facility Discharge? ED Patient has been contacted within 2 days of being seen in the ED Yes Diagnosis Viral Infection Discharge Date 11/28/24 Discharged To: Home Setting Discharge Hospital [facility] Engagement Call Start Time 1528 Admission Date 11/28/24 Medications Discharge medications reviewed and reconciled from hospital? Yes Is the patient having any side effects they believe may be caused by any medication additions or changes? No Does the patient have all medications ordered at discharge? Yes Nursing Interventions No intervention needed Is the patient taking all medications as directed (includes completed medication regime)? Yes Appointments Does the patient have a primary care provider? Yes Nursing Interventions Patient declined follow up appointment w/ PCP Does the patient have any upcoming specialty appointments? Not applicable Self Management Does patient have home health? no What Durable Medical Equipment (DME) was ordered? n/a Patient Teaching Does the patient have access to their discharge instructions? Yes What is the patient's perception of their health status since discharge? Improving Is the patient/caregiver able to teach back the hierarchy of who to call/visit for symptoms/problems? PCP, Specialist, Home Health nurse, Urgent Care, ED, 911 Yes Wrap Up Is the patient/caregiver familiar with Advance Care Planning? Yes Would the patient like more information on Advance Care Planning? No Call End Time 1523 SUBJECTIVE: MEDICATIONS: Current Outpatient Medications Medication Instructions buPROPion XL (WELLBUTRIN XL) 300 mg, Every morning cetirizine (ZyrTEC) 10 MG tablet TAKE 1 TABLET BY MOUTH EVERY DAY for 30 Days cyclobenzaprine (Flexeril) 10 MG tablet 1 tablet, 3 times daily PRN gabapentin (NEURONTIN) 300 mg, 3 times daily hydrOXYzine pamoate (VISTARIL) 25 mg, 3 times daily PRN ibuprofen 600 MG tablet PLEASE SEE ATTACHED FOR DETAILED DIRECTIONS for 8 Days metFORMIN (Glucophage) 500 MG tablet TAKE 1 TABLET (500 MG) BY MOUTH IN THE MORNING AND IN THE EVENING WITH MEALS methocarbamol (ROBAXIN) 1,000 mg norgestimate-ethinyl estradiol (Ortho Tri-Cyclen LO) 0.18/0.215/0.25 MG-25 MCG tablet 1 tablet, Oral, Daily norgestimate-ethinyl estradiol (Sprintec 28) 0.25-35 MG-MCG tablet 1 tablet, Oral, Daily ondansetron ODT (ZOFRAN-ODT) 4 mg, Every 8 hours PRN ALLERGIES: No Known Allergies SURGICAL HISTORY: History reviewed. No pertinent surgical history. FAMILY HISTORY: Family History Problem Relation Name Age of Onset Diabetes Mother Kelsy Patterson Cancer Paternal Grandmother Tawnya Patterson Heart failure Other g-ma Diabetes Sister Jovana Patterson Mental illness Sister Jovana Patterson SOCIAL HISTORY: Social History Tobacco Use Smoking status: Never Smokeless tobacco: Never Tobacco comments: Currently Vape everyday Substance Use Topics Alcohol use: Not Currently Comment: caffeine: 1-2 cups per day Drug use: Yes Types: Marijuana Depression: Not at risk (05/20/2024) PHQ-2 PHQ-2 Score: 0 REVIEW OF SYMPTOMS: Review of Systems Constitutional: Negative. HENT: Negative. Respiratory: Negative. Cardiovascular: Negative. Gastrointestinal: Positive for abdominal pain, constipation and nausea. Negative for diarrhea and vomiting. Genitourinary: Negative. Musculoskeletal: Negative. Skin: Negative. Neurological: Negative. Psychiatric/Behavioral: Negative. OBJECTIVE: Visit Vitals BP 134/82 (BP Location: Left arm, Patient Position: Sitting, BP Cuff Size: Large adult) Pulse (!) 118 Resp 18 Ht 5' 6 Wt 244 lb SpO2 97% BMI 39.38 kg/m?? OB Status Having periods Smoking Status Never BSA 2.27 m?? Visit Vitals BP 134/82 (BP Location: Left arm, Patient Position: Sitting, BP Cuff Size: Large adult) Pulse 90 Resp 18 Physical Exam Vitals and nursing note reviewed. Constitutional: Appearance: Normal appearance. HENT: Head: Normocephalic and atraumatic. Cardiovascular: Rate and Rhythm: Normal rate and regular rhythm. Pulses: Normal pulses. Heart sounds: Normal heart sounds. Pulmonary: Effort: Pulmonary effort is normal. No respiratory distress. Breath sounds: Normal breath sounds. No stridor. No wheezing, rhonchi or rales. Abdominal: General: Bowel sounds are normal. There is no distension. Palpations: Abdomen is soft. There is no mass. Tenderness: There is abdominal tenderness. There is no right CVA tenderness or left CVA tenderness. Hernia: No hernia is present. Skin: General: Skin is warm and dry. Neurological: General: No focal deficit present. Mental Status: She is alert and oriented to person, place, and time. Psychiatric: Mood and Affect: Mood normal. Behavior: Behavior normal. ASSESSMENT AND PLAN: Assessment/Plan Problem List Items Addressed This Visit None Visit Diagnoses Nausea - Primary Relevant Orders Comprehensive metabolic panel; Future CBC and differential; Future Urine culture (clean catch); Future Urinalysis with reflex microscopic (clean catch); Future POCT Urinalysis dipstick (Completed) POCT , urine (Completed) Pain of upper abdomen Relevant Orders XR ABDOMEN 2 VIEW; Future Comprehensive metabolic panel; Future CBC and differential; Future Urine culture (clean catch); Future Urinalysis with reflex microscopic (clean catch); Future POCT Urinalysis dipstick (Completed) Assessment & Plan 1. Viral gastroenteritis. - Symptoms suggest a possible norovirus infection. - The presence of protein, ketones, and leukocytes in the urine indicates a need for a work up. Urine has been sent out for microanalysis. CBC and CMP ordered to assess kidney function, liver function, electrolytes, and blood counts. - An abdominal x-ray will be ordered to check for constipation or other abnormalities. A urinalysisand culture will be conducted to rule out infection. Blood work will be done to assess kidney and liver function. - She is advised to increase fluid intake and abstain from smoking marijuana. [id number]-arp-[id number] MiraLAX can be used if constipation persists. She should continue taking Zofran as needed. A doctor's note will be provided for work absence from Friday to today. If diarrhea returns, she should contact the office immediately. If there is no improvement by next week, she should return for further evaluation. 2. Constipation. - Constipation may be contributing to nausea. - Abdominal x-ray will be ordered to check for constipation or other abnormalities. - Advised to use [id number]-ualykcn MiraLAX if constipation persists and to increase fluid intake. - Blood work will be done to assess kidney and liver function. No follow-ups on file. documented in this encounter Plan of Treatment Upcoming Encounters Date Type Department Care Team (Late st Contact Info) Description 02/08/2025 4:00 PM EDT Office Visit [facility] [address] [place] [address] Jovita Salas CNM [address] [place], [place] [id number] documented as of this encounter Procedures Procedure Name Priority Date/Time Associated Diagnosis Comments NOTE Routine 12/03/2024 2:26 PM EDT URINALYSIS REFLEX Routine 12/03/2024 2:2 6 PM EDT Nausea Pain of upper abdomen CULTURE, URINE, ROUTINE Routine 12/03/2024 2:26 PM EDT Nausea Pain of upper abdomen CBC (INCLUDES DIFF/PLT) Routine 12/03/2024 2:25 PM EDT Nausea Pain of upper abdomen COMPREHENSIVE METABOLIC PANEL Routine 12/03/2024 2:25 PM EDT Nausea Pain of upper abdomen POCT , URINE Routine 12/03/2024 2:21 PM EDT Nausea POCT URINALYSIS DIPSTICK Routine 12/03/2024 2:21 PM EDT Nausea Pain of upper abdomen documented in this encounter Results * XR ABDOMEN 2 VIEW (12/03/2024 3:08 PM EDT) Anatomical Region Laterality Modality Abdomen Radiographic Maxine ging Abdominal wall procedure / Unknown 12/03/2024 6:07 PM EDT Narrative 12/03/2024 6:07 PM EDT Abdomen HISTORY: Upper abdominal pain and constipation Supine and upright views of the abdomen were acquired. The bowel gas pattern is nonobstructive. No bowel wall thickening. No visible urolithiasis or parenchymal calcification. IMPRESSION: Negative abdominal series Procedure Note Wesley Montana MD - 12/03/2024 Abdomen HISTORY: Upper abdominal pain and constipation Supine and upright views of the abdomen were acquired. The bowel gas pattern is nonobstructive. No bowel wall thickening. Novisible urolithiasis or parenchymal calcification. IMPRESSION: Negative abdominal series Ness Majorcuauhtemoc DONATION SPECIALIST IMG XR PROCEDURES Final Result * NOTE (12/03/2024 2:26 PM EDT) NOTE [facility] Comment: This urine was analyzed for the presence of WBC, RBC, bacteria, casts, and other formed elements. Only those elements seen were reported. 12/03/2024 2:26 PM EDT 12/03/2024 2:27 PM EDT Narrative Resulting Agency Comment Performing Organization Information Site ID: QPT Name: [facility] Address: [address] [place] [address], [address] [place] [id number] Director: Ramana Taylor MD [facility] DONATION SPECIALIST [facility] Final Result Performing Organization Address [facility] de Phone Number [facility] * (ABNORMAL) Urinalysis with reflex microscopic (clean catch) (12/03/2024 2:26 PM EDT) COLOR DARK YELLOW YELLOW [facility] APPEARANCE CLOUDY(A) CLEAR [facility] SPECIFIC GRAVITY 1.033 1.001 - 1.035 [facility] PH 6.0 5.0 - 8.0 [facility] GLUCOSE NEGATIVE NEGATIVE [facility] BILIRUBIN 3+(A) NEGATIVE [facility] Comment: Presumptive positive bilirubin. Consider confirmation by serum bilirubin if clinically indicated. KETONES 2+(A) NEGATIVE [facility] OCCULT BLOOD NEGATIVE NEGATIVE [facility] PROTEIN 1+(A) NEGATIVE [facility] NITRITE NEGATIVE NEGATIVE [facility] LEUKOCYTE ESTERASE 1+(A) NEGATIVE [facility] WBC 10-20(A) < OR = 5 /HPF [facility] RBC NONE SEEN < OR = 2 /HPF [facility] SQUAMOUS EPITHELIAL CELLS 10-20(A) < OR = 5 /HPF [facility] BACTERIA MODERATE(A) NONE SEEN /HPF [facility] CALCIUM OXALATE CRYSTALS MODERATE(A) NONE OR FEW /HPF [facility] HYALINE CAST NONE SEEN NONE SEEN /LPF [facility] Urine Urine specimen obtained by clean catch procedure / Unknown 12/03/2024 2:26 PM EDT 12/03/2024 2:27 PM EDT Narrative Resulting Agency Comment Performing Organization Information Site ID: QPT Name: [facility] Address: [address] [place] [address], [address] [place] [phone] Director: Ramana Taylor MD Ness Montez DONATION SPECIALIST LAB URINE ORDERABLES Final Resu lt Performing Organization Address [facility]/ZIP Co de Phone Number [facility] * Urine culture (clean catch) (12/03/2024 2:26 PM EDT) MICRO NUMBER [id number] [facility] SPECIMEN QUALITY Adequate [facility] SOURCE: ([facility]) URINE [facility] STATUS FINAL [facility] RESULT SEE NOTE [facility] Comment: No Growth Urine Urine specimen obtained by clean catch procedure / Unknown 12/03/2024 2:26 PM EDT 12/03/2024 2:27 PM EDT Narrative Resulting Agency Comment Performing Organization Information Site ID: QPT Name: [facility] Address: [address] [place] [address] Director: Ramana Taylor MD us Ness Montez NP LAB MICROBIOLOGY - GENERAL GWEN YEN Final Result [facility] * CBC and differential (12/03/2024 2:25 PM EDT) Pathologist [facility] WHITE BLOOD CELL COUNT 6.8 3.8 - 10.8 Thousand/u L [facility] RED BLOOD CELL COUNT 4.72 3.80 - 5.10 Million/uL [facility] HEMOGLOBIN 14.3 11.7 - 15.5 g/dL [facility] HEMATOCRIT 43.6 35.0 - 45.0 % [facility] MCV 92.4 80.0 - 100.0 fL [facility] MCH 30.3 27.0 - 33.0 pg [facility] MCHC 32.8 32.0 - 36.0 g/dL [facility] Comment: For adults, a slight decrease in the calculated MCHC value (in the range of 30 to 32 g/dL) is most likely not clinically significant; however, it should be interpreted with caution in correlation with other red cell parameters and the patient's clinical condition. RDW 11.9 11.0 - 15.0 % [facility] PLATELET COUNT 284 140 - 400 Thousand/u L [facility] MPV 10.4 7.5 - 12.5 fL [facility] ABSOLUTE NEUTROPHILS 4,780 1,500 - 7,800 cells/uL [facility] ABSOLUTE LYMPHOCYTES 1,380 850 - 3,900 cells/uL [facility] ABSOLUTE MONOCYTES 592 200 - 950 cells/uL [facility] ABSOLUTE EOSINOPHILS 20 15 - 500 cells/uL [facility] ABSOLUTE BASOPHILS 27 0 - 200 cells/uL [facility] NEUTROPHILS 70.3 % [facility] LYMPHOCYTES 20.3 % [facility] MONOCYTES 8.7 % [facility] EOSINOPHILS 0.3 % [facility] BASOPHILS 0.4 % [facility] Blood Venous blood specimen / Unknown 12/03/2024 2:25 PM EDT 12/03/2024 2:26 PM EDT Narrative [facility] - 12/04/2024 3:21 AM EDT MULTIPLE COLLECTION TIMES FOR SAME TEST TYPE. Resulting Agency Comment Performing Organization Information Site ID: QPT Name: [facility] Address: [address], [address] [place] [address] Director: Ramana Taylor MD Ness Montez DONATION SPECIALIST LAB BLOOD ORDERABLES Final Resu lt [facility] * (ABNORMAL) Comprehensive metabolic panel (12/03/2024 2:25 PM EDT) Glucose 76 65 - 99 mg/dL [facility] Comment: Fasting reference interval BUN 9 7 - 25 mg/dL [facility] Creatinine 0.74 0.50 - 0.96 mg/dL [facility] EGFR 116 > OR = 60 mL/min/1. 73m2 [facility] BUN/CREATININE RATIO SEE NOTE: 6 - 22 (calc) [facility] Comment: Not Reported: BUN and Creatinine are within reference range. Sodium 141 135 - 146 mmol/L [facility] Potassium, Bld 3.5 3.5 - 5.3 mmol/L [facility] Chloride 106 98 - 110 mmol/L [facility] Carbon Dioxide 24 20 - 32 mmol/L [facility] Calcium 9.1 8.6 - 10.2 mg/dL [facility] PROTEIN, TOTAL 6.9 6.1 - 8.1 g/dL [facility] ALBUMIN 4.2 3.6 - 5.1 g/dL [facility] GLOBULIN 2.7 1.9 - 3.7 g/dL (calc) [facility] ALBUMIN/GLOBULIN RATIO 1.6 1.0 - 2.5 (calc) [facility] BILIRUBIN, TOTAL 0.9 0.2 - 1.2 mg/dL [facility] ALKALINE PHOSPHATASE 62 31 - 125 U/L [facility] AST 114(H) 10 - 30 U/L [facility] ALT 211(H) 6 - 29 U/L [facility] Blood Venous blood specimen / Unknown 12/03/2024 2:25 PM EDT 12/03/2024 2:26 PM EDT Narrative [facility] - 12/04/2024 3:21 AM EDT MULTIPLE COLLECTION TIMES FOR SAME TEST TYPE. Resulting Agency Comment Performing Organization Information Site ID: QPT Name: [facility] Address: [address] [facility], [address] [place] [address] Director: Ramana Taylor MD Ness Montez DONATION SPECIALIST LAB BLOOD ORDERABLES Final Resu lt [facility] * POCT , urine (12/03/2024 2:21 PM EDT) Preg Test, Ur Negative Negative Urine 12/03/2024 2:21 PM EDT [facility] DONATION SPECIALIST POINT OF CARE TEST ENTER/EDIT O RDERABLES Final Result * (ABNORMAL) POCT Urinalysis dipstick (12/03/2024 2:21 PM EDT) Color, UA Yellow Clarity, UA Clear Glucose, UA Negative Negative - 2000(110) ++++ mg/dL Bilirubin, UA 3+ Negative - 4(70) +++ mg/dL Ketones, UA Positive Negative - 160(16) ++++ mg/dL Spec Grav, UA 1.020 1 - 1.03 Blood, UA Negative Negative - 50 Aidan/mcL pH, UA 6.0 5 - 9 Protein, UA 1+ Negative - 2000(20) ++++ mg/dL Urobilinogen, UA 0.2 0.2 - 12 mg/dL Leukocytes, UA 1+ Negative - 500+++ Samira/mcL Nitrite, UA Negative Negative - Positive Urine 12/03/2024 2:21 PM EDT [facility] POINT OF CARE TEST ENTER/EDIT O RDERABLES Final Result documented in this encounter Visit Diagnoses Diagnosis Nausea- Primary Nausea alone Pain of upper abdomen Pain of upper abdomen documented in this encounter Care Teams Associate Field Service Engineer Relationship Specialty Start Date End Date Destinee Britton MD [address] [place] [address] PCP - General Family Medicine 11/12/22 documented as of this encounter
--- OUTSIDE RECORDS SUMMARY | 2024-12-03 14:00 | XMS_ITS | Encounter Summary ---
Author Organization [facility] Address [address] [place] [address] Care Team Providers Care Ocean Clam Boat Captain Name Role Phone Destinee Britton MD Primary Care Provider [phone] Encounter Details Date Type Department Care Team (Latest Contact Info) Description 12/03/2024 2:00 PM EDT Ancillary Procedure [facility] [address] [place] [address] Pain of upper abdomen Social History Tobacco [...] week 05/20/2024 How often do you attend mormonism or baptism serv ices? Never 05/20/2024 Do you belong to any clubs o r organizations such as mormonism groups, unions, fraternal or athletic groups, or [...] Recorded Patient Health Questionnaire-2 Score 0 05/20/2024 [facility] of Occupat ional [facility] - Occupational Stress Questionnaire Answer Date [...] any time in the past [address] [facility], were you homeless or living in a care home (including now)? No 05/20/2024 Comments No Sex and Gender Information Value Date Recorded Sex Assigned at Female 06/25/2023 1:54 PM EST Legal Sex Female 6:57 PM EDT Gender Identity Female 06/25/2023 1:54 PM EST Sexual Orientation Not on file documented as of this encounter Plan of Treatment Upcoming Encounters Date Type Department Care Team (Late st Contact Info) Description 02/08/2025 4:00 PM EDT Office Visit [facility] [address] [place] [address] Jovita Salas, CNM [address] [place] [address] documented as of this encounter Procedures Procedure Name Priority Date/Time Associated Diagnosis Comments XR ABDOMEN 2 VIEW Routine 12/03/2024 3:0 8 PM EDT Pain of upper abdomen documented in this [...] parenchymal calcification. IMPRESSION: Negative abdominal series Ness Montez GROUNDS CARETAKER IMG XR PROCEDURES Final Result documented in this encounter Visit Diagnoses Diagnosis Pain of upper abdomen documented in this encounter Care Teams Ocean Clam Boat Captain Relationship Specialty Start Date End Date Destinee Britton MD [address] [place] [address] PCP - General Family Medicine 11/12/22 documented as of this encounter
--- OUTSIDE RECORDS SUMMARY | 2024-12-15 08:15 | XMS_ITS | Encounter Summary ---
Author Organization [facility] Address [address] [place] [address] Care Team Providers Care Cigar Bander Hand Name Role Phone Destinee Britton MD Primary Care Provider [phone] Encounter Details Date Type Department Care Team (Latest Contact Info) Description 12/15/2024 8:15 AM EDT Ancillary Procedure [facility] ULTRAS[facility] [address] [place] [address] Elevated liver enzymes Social History Tobacco Use Types Packs/Day Years [...] week 05/20/2024 How often do you attend orthodoxy or confucianist serv ices? Never 05/20/2024 Do you belong to any clubs o r organizations such as orthodoxy groups, unions, fraternal or athletic groups, or [...] Score 0 05/20/2024 [facility] of Occupat ional [facility] - Occupational Stress Questionnaire Answer Date [...] any time in the past 12 m [facility], were you homeless or living in a usp (including now)? No 05/20/2024 Comments No Sex [...] EDT Office Visit [facility] [address] [place] [address] Jovita Salas CNM [address] [place], [place] [phone] Pending Results Name Type Priority Associated Diagnoses Date /Time US LIVER Imaging Routine Elevated liver enzymes 12/15/2024 8:32 AM EDT documented as of this encounter Visit Diagnoses Diagnosis Elevated liver enzymes Other nonspecific abnormal serum enzyme levels documented in this encounter Care Teams Cigar Bander Hand Relationship Specialty Start Date End Date Destinee Britton MD [address] [place], [place] [id number] PCP - General Family Medicine 11/12/22 documented as of this encounter
--- OUTSIDE RECORDS SUMMARY | 2024-12-16 08:24 | XMS_ITS | Clinical Summary ---
Author Organization [facility] Address [address] [place] [address] Care Team Providers Care Career Development Coordinator/Teacher Name Role Phone Destinee Britton MD Primary Care Provider [phone] Allergies No known active allergies Medications norgestimate-ethin yl estradiol (Sprintec 28) 0.25-35 MG-MCG tabletIndications: Encounter for initial prescription of contraceptive pills Take 1 tablet by mouth Daily 90 tablet 2 03/11/20 24 Active hydrOXYzine pamoate (Vistaril) 25 MG capsule Take 25 mg by mouth 3 (three) times a day as needed 04/22/20 24 Active metFORMIN (Glucophage) 500 MG tabletIndications: PCOS (polycystic ovarian syndrome) TAKE 1 TABLET (500 MG) BY MOUTH IN THE MORNING AND IN THE EVENING WITH MEALS 180 tablet 1 06/10/20 24 Active cetirizine (ZyrTEC) 10 MG tablet TAKE 1 TABLET BY MOUTH EVERY DAY for 30 Days Active cyclobenzaprine (Flexeril) 10 MG tablet Take 1 tablet by mouth 3 (three) times a day as needed Active ibuprofen 600 MG tablet PLEASE SEE ATTACHED FOR DETAILED DIRECTIONS for 8 Days Active methocarbamol (Robaxin) 500 MG tablet Take 1,000 mg by mouth 08/05/19 25 Active norgestimate-ethin yl estradiol (Ortho Tri-Cyclen LO) 0.18/0.215/0.25 MG-25 MCG tabletIndications: Unwanted fertility Take 1 tablet by mouth Daily 90 tablet 1 08/10/19 25 026 Active ondansetron ODT (Zofran-ODT) 4 MG disintegrating tablet Take 4 mg by mouth every 8 (eight) hours if needed for nausea 11/29/19 25 Active buPROPion XL (Wellbutrin XL) 300 MG 24 hr tablet Take 300 mg by mouth in the morning. 09/10/19 25 Active gabapentin (Neurontin) 300 MG capsule Take 300 mg by mouth in the morning and 300 mg in the evening and 300 mg before bedtime. 11/25/19 25 Active buPROPion XL (Wellbutrin XL) 150 MG 24 hr tablet Take 150 mg by mouth in the morning. 025 Discontin ued(Med list cleanup) gabapentin (Neurontin) 100 MG capsule Take 300 mg by mouth 08/05/19 25 025 Discontin ued(Med list cleanup) Active Problems Problem Noted Date Diagnosed Date [...] Encounters Date Type Department Care Team Description 12/15/2024 8:15 AM EDT Ancillary Procedure [facility] ULTR[facility] [address] [place] [address] Elevated liver enzymes 12/15/2024 Travel 12/06/2024 Results Follow-Up [facility] [address] [place] [address] Ness Montez NP Elevated liver enzymes (Primary Dx) 12/03/2024 2:00 PM EDT Ancillary Procedure [facility] RADIOLOGY [address] [facility] [address] [place] [address] Pain of upper abdomen 12/03/2024 1:30 PM EDT Office Visit [facility] [address] [place] [phone] Ness Montez NP Nausea (Primary Dx); Pain of upper abdomen 12/03/2024 Travel 12/03/2024 Telephone [facility] [address] [place] [address] Destinee Britton MD 11/25/2024 Telephone [facility] [address] [place] [address] Ladan Kramer MA Contraception 09/19/2024 Refill [facility] [address] [place] [address] Jovita Salas CNM Encounter for initial prescription of contraceptive pills from Last 3 Months Immunizations Immunization Administration [...] failure Other g-ma Cancer Paternal Grandmother Tawnya Patterson Diabetes Sister 2 Jovana Patterson Mental illness Sister 2 Jovana Patterson Relation Name Status Comments Father Alive Mother Kelsy Patterson Alive Other Paternal Grandmother Tawnya Patterson Sister 1 Alive Sister 2 Jovana Patterson Social History Tobacco Use Types Packs/Day Years [...] week 05/20/2024 How often do you attend confucianist or congregation serv ices? Never 05/20/2024 Do you belong to any clubs o r organizations such as confucianist groups, unions, fraternal or athletic groups, or [...] Recorded Patient Health Questionnaire-2 Score 0 05/20/2024 [facility] of Occupat ional [facility] - Occupational Stress Questionnaire Answer Date [...] any time in the past 12 m [facility], were you homeless or living in a residential (including now)? No 05/20/2024 Comments No Sex [...] Mass Index 39.38 12/03/2024 1:44 PM EDT Plan of Treatment Upcoming Encounters Date Type Department Care Team (Late st Contact Info) Description 02/08/2025 4:00 PM EDT Office Visit [facility] [address] [place] [address] Jovita Salas, CNM [address] [place], [place] [phone] Health Maintenance Due Date Last Done Comments Influenza Vaccine Completed 04/29/2024, 07/10/2019, 07/17/2018 Procedures Procedure Name Priority Date/Time Associated Diagnosis Comments XR ABDOMEN 2 VIEW Routine 12/03/2024 3:0 8 PM EDT Pain of upper abdomen NOTE Routine 12/03/2024 2:26 PM EDT URINALYSIS [...] PM EDT Nausea Pain of upper abdomen from Last 3 Months Results * XR ABDOMEN 2 VIEW (12/03/2024 [...] calcification. IMPRESSION: Negative abdominal series Ness Montez INTERPRETER DEAF IMG XR PROCEDURES Final Result * NOTE (12/03/2024 2:26 PM EDT) NOTE [facility] Comment: This urine was analyzed for the presence of WBC, RBC, bacteria, casts, and other formed elements. Only those elements seen were reported. 12/03/2024 2:26 PM EDT 12/03/2024 2:27 PM EDT Narrative Resulting Agency Comment Performing Organization Information Site ID: QPT Name: [facility] [employer] Address: [address] [place] [phone] Director: Ramana Taylor MD Ness Montez INTERPRETER DEAF QUEST Final Result [facility] * (ABNORMAL) Urinalysis with reflex microscopic [...] Performing Organization Information Site ID: QPT Name: [facility] Address: [address] [place] [address], [address] [place] [phone] Director: Ramana Taylor MD [facility] LAB URINE ORDERABLES Final Resu lt Performing Organization Address [facility] de Phone Number [facility] * Urine culture (clean catch) (12/03/2024 2:26 PM EDT) [facility] MICRO NUMBER [id number] [facility] SPECIMEN QUALITY Adequate [facility] SOURCE: (QUEST) URINE [facility] STATUS FINAL [facility] RESULT SEE NOTE [facility] Comment: No Growth Urine Urine specimen obtained by clean catch procedure / Unknown 12/03/2024 2:26 PM EDT 12/03/2024 2:27 PM EDT Narrative Resulting Agency Comment Performing Organization Information Site ID: QPT Name: [facility] Address: [address] [place] [address], [address] [place] [phone] Director: Ramana Taylor MD [facility] [employer] INTERPRETER DEAF LAB MICROBIOLOGY - GENERAL ORDE RABLES Final Result Performing Organization Address [facility] de Phone Number [facility] * CBC and differential (12/03/2024 2:25 PM EDT) Pathologist [facility] WHITE BLOOD CELL COUNT 6.8 3.8 - [...] Performing Organization Information Site ID: QPT Name: [facility] Address: [address] [place] [address], [address] [place] [phone] Director: Ramana Taylor MD Ness Montez NP LAB BLOOD ORDERABLES Final Resu lt QUEST * (ABNORMAL) Comprehensive metabolic panel (12/03/2024 2:25 PM EDT) [facility] Glucose 76 65 - 99 mg/dL QUEST [...] Performing Organization Information Site ID: QPT Name: [facility] Address: [address] [place] [address], [address] [place] [phone] Director: Ramana Taylor MD Ness Montez INTERPRETER DEAF LAB BLOOD ORDERABLES Final Resu lt [facility]ST * POCT , urine (12/03/2024 2:21 PM EDT) Preg Test, Ur Negative Negative Urine 12/03/2024 2:21 PM EDT us Ness Montez INTERPRETER DEAF POINT OF CARE TEST ENTER/EDIT O RDERABLES Final Result * (ABNORMAL) POCT Urinalysis dipstick (12/03/2024 2:21 PM EDT) Color, UA Yellow Clarity, UA Clear Glucose, UA Negative Negative - 1999(110) ++++ mg/dL Bilirubin, UA 3+ Negative - [...] - Positive Urine 12/03/2024 2:21 PM EDT Ness Montez INTERPRETER DEAF POINT OF CARE TEST ENTER/EDIT O RDERABLES Final Result from Last 3 Months Insurance [facility] Care Teams Career Development Coordinator/Teacher Relationship Specialty Start Date End Date Destinee Britton MD [address] [place] [address] PCP - General Family Medicine 11/12/22
--- OUTSIDE RECORDS SUMMARY | 2024-12-16 08:24 | XMS_ITS | Encounter Summary ---
Author Organization [facility] Address [address] [place] [address] Care Team Providers Care Steward/Stewardess Economy Class Name Role Phone Destinee Britton MD Primary Care Provider [phone] Encounter Details Date Type Department Care Team (Late st Contact Info) Description 12/03/2024 Telephone [facility] [address] [place] [address] Destinee Britton MD [address] [place] [address] Social History Tobacco Use Types Packs/Day Years [...] week 05/20/2024 How often do you attend pentecostal or islam serv ices? Never 05/20/2024 Do you belong to any clubs o r organizations such as pentecostal groups, unions, fraternal or athletic groups, or [...] Recorded Patient Health Questionnaire-2 Score 0 05/20/2024 [facility] of Occupat ional [facility] - Occupational Stress Questionnaire Answer Date Recorded [...] were you homeless or living in a [facility] (including now)? No 05/20/2024 Comments No Sex [...] 02/08/2025 4:00 PM EDT Office Visit [facility] [address] [place] [address] Jovita Salas CNM [address] [place] [address] documented as of this encounter Visit Diagnoses Not on filedocumented in this encounter Care Teams Steward/Stewardess Economy Class Relationship Specialty Start Date End Date Destinee Britton MD [address] [place], [place] [phone] PCP - General Family Medicine 11/12/22 documented as of this encounter
--- OUTSIDE RECORDS SUMMARY | 2024-12-16 08:24 | XMS_ITS | Patient Health Record ---
Author Organization [facility] Address [address] [place] [address] Care Team Providers Care Wafer Fab Technician Name Role Phone Nancy Montes De Oca Unavailable [phone] Edgar Patricio Unavailable [phone] Allergies No Known Allergies Reason For Referral Reason PRIOR AUTH APPROVED ANTHEM...MRI lumbar scheduled 08/03/24 DONE Diagnosis 1 Lumbar radiculopathy (M54.16) Referral Organization [facility]erring Provider Last Name [facility] Referring Provider Speciality Orthopedic Surgery Referred Organization [facility] Office Referred Address [address] [place] [phone], Procedure 1 MRI Lumbar Spine w/o Dye (65312) General Notes Kathy Deal 07/27/19 11:05:31 AM >, Demetria Hannon 07/27/2024 11:28:31 AM > PER PEPITO PRIOR AUTH HAS BEEN APPROVED FROM 07/27/2024-08/25/2024 AUTH # [id number], AUTH IN CHART. Referral Priority Stat Reason Referral Dr. Sheng capellan and treat L4-S1 YELENA Diagnosis 1 Lumbar disc herniati on (M51.26) Referral Organization [facility] Referring Provider First Name Inherman Referring Provider Last Name lisaZena Referring Provider Speciality Orthopedic Surgery Referred Organization [facility] Office Referred Provider Edgar Patricio Referred Address [address] [place] [phone],[place] General Notes SayKathy 08/03/19 12:17:52 PM >, Claudia Eladia 08/04/2024 08:27:50 AM >CAlled and lmovm to schedule with Dr Patricio-september, Eladia Taylor 08/04/2024 08:36:04 AM >scheduled 3.3.25 Referral Priority Routine Reason [phone] fax [facility]; Pt requesting pain management at that location. Diagnosis 1 Lumbar radiculopathy (M54.16) Referral Organization [facility] Referring Provider First Name [facility] Referring Provider Last Name [facility] Referring Provider Speciality Orthopedic Surgery Referred Organization [facility] Referred Address [place], [place], General Notes Malia Lobato 12/2024 02:22:47 PM >, Malia Lobato 08/13/2024 09:43:43 AM >FYI: She is scheduled for an appt with Dr. 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) Active confirmed Vital Signs Height 5ft 7in in 08/03/2024 Weight 240 lbs 08/03/2024 BMI 37.59 08/03/2024 Encounters Encounter Location Date Provider Diagnosis [facility] [address] [place] [address] 08/03/2024 [facility] Lumbar radiculopathy M54.16 [facility] [address] [place] [address] 07/27/2024 [facility] Lumbar radiculopathy M54.16 ; Discogenic low back pain M51.360 and Right hip pain M25.551 [facility] [address] [place] [address] 08/03/2024 [facility] Lumbar disc herniation M51.26 and Lumbar radiculopathy M54.16 [facility] [place] [address] [place] [address] 08/05/2024 Edgar Patricio [place] [address] [place] [address] 08/12/2024 [facility] Lumbar radiculopathy M54.16 ; Right hip pain [...] Lumbar spine 2v ap and lat - 00002 07/27 Hip, right 2v WITH PELVIS - 71639 2024 Future Test Test Name Order Date MRI : Lumbosacral Spine W/O Contrast - 7 214707/27/2024 Insurance Providers Payer Name Payer Address Payer Phone Subscriber Number Group Number Insured Name Patient Relationship to Insured Coverage Start Date Coverage End Date Elvin [address]LEY [address] [place] [address] [id number] ELADIA PAN Self - patient is [...]
--- OUTSIDE RECORDS SUMMARY | 2024-12-16 08:24 | XMS_ITS | Encounter Summary ---
Author Organization [facility] Address [address] [facility] [place] [address] Care Team Providers Care Dry Cleaner Hand Name Role Phone Destinee Britton MD Primary Care Provider [phone] Reason for Referral * Consultation (Routine) - Authorized Specialty Diagnoses / Procedures Referred By Donya t Referred To Contact Gastroenterology Diagnoses Elevated liver enzymes Procedures FL OFFICE/OUTPATIENT [facility] MDM 60 MINUTES Ness Long NP [address] [place] [address] Phone: tel: fax: Jemma Fournier DO [facility] Referrals ONLY fax: Referral ID Status Reason Start Date Expiration Date Visits Requested Visits Authorized [id number] Authorized Specialty Services Required 12/06/2024 06/04/2025 1 1 Reason for Visit * Reason Onset Date Comments Results 12/06/2024 Encounter Details Date Type Department Care Team (Late st Contact Info) Description 12/06/2024 Results Follow-Up [facility] [address] [place] [phone] Ness Long NP [address] [place], [place] [phone] Elevated liver enzymes (Primary Dx) Social History Tobacco Use Types Packs/Day Years [...] week 05/20/2024 How often do you attend judaism or roman catholic serv ices? Never 05/20/2024 Do you belong to any clubs o r organizations such as judaism groups, unions, fraternal or athletic groups, or [...] Recorded Patient Health Questionnaire-2 Score 0 05/20/2024 [facility] of Occupat ional Health - Occupational Stress [...] any time in the past 12 m [facility], were you homeless or living in a fdc (including now)? No 05/20/2024 Comments No Sex and Gender Information Value Date Recorded Sex Assigned at Female 06/25/2023 1:54 PM EST Legal Sex Female 6:57 PM EDT Gender Identity Female 06/25/2023 1:54 PM EST Sexual Orientation Not on file documented as of this encounter Miscellaneous Notes * Telephone Encounter - Ladan Kramer MA - 12/06/2024 10:44 AM EDT Spoke with patient and she verbalized understanding. Patient did want to let you know that she was diagnosed with a fatty liver in the ER about 2 years ago. She didn't know if this info would be helpful to the liver enzymes being elevated. Does not use tylenol frequently or drink alcohol at all. Patient will be in for labs and she will schedule her US when Imaging calls. * Telephone Encounter - Ladan Kramer MA - 12/06/2024 10:44 AM EDT ----- Message from Ness Long sent at 12/06/2024 10:02 AM EDT ----- Liver enzymes are elevated. I would like more blood work to be completed and a liver ultrasound to be completed for a further assessment. Orders have been placed for the blood work and for the ultrasound. I would also like you to follow up with GI. Referral has been placed with Dr. Fournier in [place]. ----- Message ----- From: Ladan Kramer MA Sent: 12/03/2024 2:21 PM EDT To: Ness Long NP * Addendum Note - Ness Long NP - 12/06/2024 10:02 AM EDTAddended by: NESS LONG on: 12/06/2024 10:02 AM Modules accepted: Orders * Telephone Encounter - Evon Loera - 12/06/2024 9:27 AM EDT Pt called back- message relayed. * Telephone Encounter - Ladan Kramer MA - 12/06/2024 9:07 AM EDT Attempted to call patient and LMOM to call back. * Telephone Encounter - Ladan Kramer MA - 12/06/2024 9:07 AM EDT ----- Message from Ness Long sent at 12/06/2024 8:13 AM EDT ----- Normal abd xray. ----- Message ----- From: Interface,Incoming Img Aat Sent: 12/03/2024 6:07 PM EDT To: Ness Long NP documented in this encounter Plan of Treatment Upcoming Encounters Date Type Department Care Team (Late st Contact Info) Description 02/08/2025 4:00 PM EDT Office Visit [facility] [address] [place] [address] Jovita Salas CNM [address] [place] [address] Pending Results Name Type Priority Associated Diagnoses Date /Time US LIVER Imaging Routine Elevated liver enzymes 12/15/2024 8:32 AM EDT Scheduled Orders Name Type Priority Associated Diagnoses Orde r Schedule Hepatitis panel, acute Lab Routine Elevated liver enzymes Expected: 12/06/2024 (Approximate), Expires: 12/06/2025 ALT Lab Routine Elevated liver enzymes Expected: 12/06/2024 (Approximate), Expires: 12/06/2025 AST Lab Routine Elevated liver enzymes Expected: 12/06/2024 (Approximate), Expires: 12/06/2025 BAR Lab Routine Elevated liver enzymes Expected: 12/06/2024 (Approximate), Expires: 12/06/2025 Ferritin Lab Routine Elevated liver enzymes Expected: 12/06/2024 (Approximate), Expires: 12/06/2025 Ayaan-Dean virus VCA, IgM Lab Routine Elevated liver enzymes Expected: 12/06/2024 (Approximate), Expires: 12/06/2025 Cytomegalovirus antibody, IgM Lab Routine Elevated liver enzymes Expected: 12/06/2024 (Approximate), Expires: 12/06/2025 Protime-INR Lab Routine Elevated liver enzymes Expected: 12/06/2024 (Approximate), Expires: 12/06/2025 US LIVER Imaging Routine Elevated liver enzymes Expected: 12/06/2024, Expires: 12/06/2025 Scheduled Referrals Name Type Priority Associated Diagnoses Order Schedule Ambulatory referral to Gastroenterology Outpatient Referral Routine Elevated liver enzymes Expected: 12/06/2024 (Approximate), Expires: 06/07/2025 documented as of this encounter Visit Diagnoses Diagnosis Elevated liver enzymes- Primary Other nonspecific abnormal serum enzyme levels documented in this encounter Care Teams Dry Cleaner Hand Relationship Specialty Start Date End Date Destinee Britton MD [address] [place] [address] PCP - General Family Medicine 11/12/22 documented as of this encounter
--- OUTSIDE RECORDS SUMMARY | 2024-12-16 08:24 | XMS_ITS | Encounter Summary ---
Author Organization [facility] Address [address] [place] [address] Care Team Providers Care Licensed Practical Nurse Clinic Nurse Name Role Phone Destinee Britton MD Primary Care Provider [phone] Encounter Details Date Type Department Care Team (Late st Contact Info) Description 09/10/2024 Telephone [facility] [address] [place] [address] Jovita Salas, ALEJANDRA [address] [place], [place] [id number] Social History Tobacco Use Types Packs/Day Years [...] week 05/20/2024 How often do you attend sabianist or taoism serv ices? Never 05/20/2024 Do you belong to any clubs o r organizations such as sabianist groups, unions, fraternal or athletic groups, or [...] Patient Health Questionnaire-2 Score 0 05/20/2024 [facility] - [...] you homeless or living in a senior care (including now)? No 05/20/2024 Comments No Sex [...] PM EDT Office Visit [facility] [address] [place] [address] Jovita Salas CNM [address] [place] [address] documented as of this encounter Visit Diagnoses Not on filedocumented in this encounter Care Teams Licensed Practical Nurse Clinic Nurse Relationship Specialty Start Date End Date Destinee Britton MD [address] [place] [address] PCP - General Family Medicine 11/12/22 documented as of this encounter
--- OUTSIDE RECORDS SUMMARY | 2024-12-16 08:24 | XMS_ITS | Encounter Summary ---
Author Organization [facility] Address [address] [place] [address] Care Team Providers Care [employer] Piece Consultant Name Role Phone Destinee Britton MD Primary Care Provider [phone] Encounter Details Date Type Department Care Team (Latest Contact Info) Description 12/03/2024 Travel Social History Tobacco Use Types Packs/Day [...] week 05/20/2024 How often do you attend scientologist or synagogue serv ices? Never 05/20/2024 Do you belong to any clubs o r organizations such as scientologist groups, unions, fraternal or athletic groups, or [...] Recorded Patient Health Questionnaire-2 Score 0 05/20/2024 [facility] - [...] any time in the past 12 m [facility], were you homeless or living in a snf (including now)? 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
--- OUTSIDE RECORDS SUMMARY | 2024-12-16 08:25 | XMS_ITS | Clinical Summary ---
Author Organization [employer] Address [id number] [address] [place] [address] Care Team Providers Care Communications Executive Name Role Phone IgnacionickernestineOttoniel calderon Sunil BOWEN Primary Care Provider [phone] Allergies No known active allergies Medications * [...] Not on file Insurance ANTHEM Care Teams Communications Executive Relationship Specialty Start Date End Date Ottoniel Romeo DO PCP - General Family Medicine 04/03/20
--- OUTSIDE RECORDS SUMMARY | 2024-12-16 08:25 | XMS_ITS | Clinical Summary ---
Author Organization [facility] Address [address] [place] [address] Care Team Providers Care Cook Pressure Name Role Phone Ottoniel Romeo Primary Care Provider [phone] Allergies No known active allergies Medications buPROPion (WELLBUTRIN XL) 300 MG extended release tablet Take 1 tablet by mouth every morning 4 Active hydrOXYzine pamoate (VISTARIL) 25 MG capsule Take 1 capsule by mouth 3 times daily as needed 4 Active norgestimate-et hinyl estradiol (ANIL) 0.25-35 MG-MCG [...] days. Intended supply: 30 days 27 capsule 5 Active methylPREDNISol one (MEDROL, QUIN,) 4 MG tablet Follow package insructions. 1 kit 5 12/01/19 25 lidocaine (LIDODERM) 5 % Place 1 patch onto the skin daily for 10 days 12 hours on, 12 hours off. 10 patch 5 12/05/19 25 Encounters Date Type Department Care Team Description 11/24/2024 1:09 PM EDT - 11/24/2024 2:32 PM EDT Emergency [facility] Emergency Department [address] [id number] Acute exacerbation of chronic low back pain [...] this topic Insurance [place] [employer] Care Teams Cook Pressure Relationship Specialty Start Date End Date Ottoniel Romeo DO [address] [place] [address];[address] [place] [id number] PCP - General Family Medicine 07/20/24
--- OUTSIDE RECORDS SUMMARY | 2024-12-16 08:42 | XMS_ITS | CCD ---
Author Organization [facility] Care Team Providers Care Genetic Supervisor Name Role Phone Radha Aguilera Attending Provider Unavailnaun DUMONT, FAMILY PHYSICIAN Primary Care Provider Unava toyin BRITTON, DR LOOMIS Primary Care Unavailable GRISEL DIALLO Admitting Unavailable WEST, DR ROGE Sewell Consulting Unavailable GRISEL DIALLO Attending Unavailable GRISEL DIALLO Consulting Unavailable RENETTA, SUYAPA Admitting Unavailable BRANNABORCKI, BECKY Primary Care Unavailable RENETTA, SUYAPA Attending Unavailable HIGHLANDER, SUYAPA Attending Unavailable HIGHLANDER, SUYAPA Consulting Unavailable HIGHLANDER, SUYAPA Admitting Unavailable BRANIECKI, BECKY Primary Care Unavailable WEST, DR ROGE Sewell Consulting Unavailable HIGHLANDER, SUYAPA Admitting Unavailable BRANNABORCKI, BECKY Primary Care Unavailable HIGHLANDER, SUYAPA Attending Unavailable HIGHLANDER, SUYAPA Consulting Unavailable LUCERO, RELL Consulting Unavailable EWELINA, AMAURY Consulting Unavailable LEATHAM, DOUG Consulting Unavailable MONA, FLORINA Consulting Unavailable HIGHLANDER, SUYAPA Attending Unavailable HIGHLANDER, SUYAPA Admitting Unavailable WEST, DR ROGE Sewell Consulting Unavailable TOBI, DR LOOMIS Primary Care Unavailable RENETTA, SUYAPA Consulting Unavailable Becky Guaman Unavailable Lexy Kraft Unavailable Joselin Wilkins Unavailable NO FAMILY, PHYSICIAN Primary Care Provider Unava ilable DO Becky Guaman Attending Provider NO FAMILY, PHYSICIAN Primary Care Provider Unava ilable LOU Kraft Attending Provider Becky Guaman Admitting Unavailable Becky Guaman Attending Unavailable NO FAMILY, PHYSICIAN Primary Care Unavailable Becky Guaman Admitting Unavailable Becky Guaman Attending Unavailable NO FAMILY, PHYSICIAN Primary Care Unavailable Lexy Kraft Admitting Unavailable Lexy Kraft Attending Unavailable NO FAMILY, PHYSICIAN Primary Care Unavailable Tobi LANDIS, Destinee Patel Primary Care Provider Heatheri DO, Becky A Primary Care Provider 1( [phone] ROSANA, CHAD Giordano Attending Unavailable BRANIECKI, BECKY [...] Attending Unavailable BRANIECKI, BECKY A Referring Unavailable ROWENA, BECKY Barber Primary Care Unavailable NUBIA STEPHENS Attending Unavailable BECKY GUAMAN Referring Unavailable BECKY GUAMAN Primary Care Unavailable Gihennaitis , Ty Wallace Attending Unavailable Gicelena LANDIS, Ty Wallace Attending Unavailable Gicelena LANDIS, Ty Wallace Attending Unavailable Adam Bland Attending Unavailabl e Rowena BOWEN, Becky Saldana Referring Un available ROWENA, BECKY Barber Primary Care Unavailable YOLI ALL Attending Unavailable ROWENA, BECKY Barber Primary Care Unavailable BCEKY GUAMAN Primary Care Unavailable PRIYANK GASPAR Attending Unavailable Unavailable Unavailable Unavailable Medications Current Medications Medication Drug Class(es) Dates Sig (Normalized) Sig (Original) 24 hr buPROPion hydrochloride 300 mg extended release oral tablet (20 sources) Aminoketone Start: 09-09-2024 take 1 tablet by mouth every twenty-four hours in the morning buPROPion XL (Wellbutrin XL) 300 MG 24 hr tablet Take 300 mg by mouth in the morning. 09/09/2024 Active Start: 02-10-2024 take 1 tablet by tonja th once daily in the morning buPROPion (WELLBUTRIN XL) 300 MG extended release tablet Take 1 tablet by mouth every morning 02/10/2024 Active End: 12-03-2024 take 1 tablet by mouth every twenty-four hours in the morning buPROPion XL (Wellbutrin XL) 150 MG 24 hr tablet Take 150 mg by mouth in the morning. 12/03/2024 Discontinued (Med list cleanup) Wellbutrin Activ e cephalexin 500 mg oral capsule (2 sources) Cephalosporin Antibacterial Start: 05-24-2024 End: 05-31-2024 take 1 capsule by mouth in the morning, then take 1 capsule by mouth in the evening, then take 1 capsule by mouth at bedtime cephalexin (Keflex) 500 MG capsule Indications: Candidiasis Take 1 capsule (500 mg) by mouth in the morning and 1 capsule (500 mg) in the evening and 1 capsule (500 mg) before bedtime. Do all this for 7 days. 21 capsule 05/24/2024 05/31/2024 Active cetirizine hydrochloride 10 mg oral tablet (3 sources) Histamine-1 Receptor Antagonist take 1 tablet by mouth once daily cetirizine (ZyrTEC) 10 MG tablet TAKE 1 TABLET BY MOUTH EVERY DAY for 30 Days Active Ciprofloxacin / Dexamethasone (3 sources) Corticosteroid, Quinolone Antimicrobial Start: 11-11-2023 Ciprofloxacin-Dex amethasone Active 4 DROPS EAR-BOTH Twice daily November 11, 2023 12:00am Start: 10-10-2023 End: 11-11-2023 Ciprofloxacin-Dexamethasone Discontinued 4 DROPS EAR-BOTH Every 12 hours 7.5 October 10, 2023 12:00am November 11, 2023 7:49am Start: 10-10-2023 Ciprofloxacin- Dexamethasone Active 4 DROPS EAR-BOTH Every 12 hours 7.5 October 10, 2023 12:00am clotrimazole 10 mg/ml topical cream (2 sources) Azole Antifungal Start: 05-24-2024 End: 06-21-2024 clotrimazole (Lotrimin) 1 % cream Indications: Candidiasis Apply topically 2 (two) times a day for 28 days 30 g 2 05/24/2024 06/21/2024 Active Escitalopram (6 sources) Serotonin Reuptake Inhibitor Lexapro Active Ethinyl Estradiol / norgestimate (19 sources) Progestin, Estrogen Start: 08-10-2024 End: 08-10-2025 take 1 tablet by mouth once daily norgestimate-ethiny l estradiol (Ortho Tri-Cyclen LO) 0.18/0.215/0.25 MG-25 MCG tablet Indications: Unwanted fertility Take 1 tablet by mouth Daily 90 tablet 1 08/10/2024 08/10/2025 Active Start: 03-11-2024 End: 12-06-2024 take 1 tablet by mouth once daily norgestimate-ethinyl estradiol (Sprintec 28) 0.25-35 MG-MCG tablet Indications: Encounter for initial prescription of contraceptive pills Take 1 tablet by mouth Daily 90 tablet 2 03/11/2024 12/06/2024 Active FLUoxetine 20 mg oral capsule (5 sources) Serotonin Reuptake Inhibitor take 1 capsule by mouth in the morning FLUoxetine HCl 20 MG TAKE 1 CAPSULE BY MOUTH IN THE MORNING Oral for 30 Days Active take 1 capsule by mouth in the m orning FLUoxetine HCl 20 MG TAKE 1 CAPSULE BY MOUTH IN THE MORNING Oral for 30 Days Active gabapentin 300 mg oral capsule (7 sources) Anti-epileptic Agent Start: 11-24-2024 take 1 capsule by mouth in the morning, then take 1 capsule by mouth in the evening, then take 1 capsule by mouth at bedtime gabapentin (Neurontin) 300 MG capsule Take 300 mg by mouth in the morning and 300 mg in the evening and 300 mg before bedtime. 11/24/2024 Active Start: 08-05-2024 End: 12-03-2024 gabapentin (Neurontin) 100 M G capsule Take 300 mg by mouth 08/05/2024 12/03/2024 Discontinued (Med list cleanup) hydrOXYzine pamoate 25 mg oral capsule (13 sources) Antihistamine Start: 04-22-2024 take 1 capsule by mouth three times daily as needed hydrOXYzine pamoate (Vistaril) 25 MG capsule Take 25 mg by mouth 3 (three) times a day as needed 04/22/2024 Active ibuprofen 600 mg oral tablet (3 sources) Nonsteroidal Anti-inflammatory Drug ibuprofen 600 MG tablet PLEASE SEE ATTACHED FOR DETAILED DIRECTIONS for 8 Days Active lidocaine 0.05 mg/mg medicated patch (1 source) Antiarrhythmic, Amide Local Anesthetic Start: 11-24-2024 End: 12-04-2024 lidocaine (LIDODERM) 5 % Place 1 patch onto the skin daily for 10 days 12 hours on, 12 hours off. 10 patch 11/24/2024 12/04/2024 Active metFORMIN hydrochloride 500 mg oral tablet (11 sources) Biguanide Start: 05-10-2024 End: 08-08-2024 take 1 tablet by mouth at mealtime metFORMIN (Glucophage) 500 MG tablet Indications: PCOS (polycystic ovarian syndrome) TAKE 1 TABLET (500 MG) BY MOUTH IN THE MORNING AND IN THE EVENING WITH MEALS 180 tablet 1 06/10/2024 Active methocarbamol 500 mg oral tablet (5 sources) Muscle Relaxant Start: 08-05-2024 End: 08-15-2024 methocarbamol (Robaxin) 500 MG tablet Take 1,000 mg by mouth 08/05/2024 Active Start: 08-05-2024 End: 08-05-2024 take 1 dose by mouth once 1,000 mg, Oral, Once, 1 dose , On Victorina 08/05/24 at 1145 methylPREDNISolone 4 mg oral tablet (4 sources) Corticosteroid Start: 11-24-2024 End: 11-30-2024 methylPREDNISolone (MEDROL, QUIN,) 4 MG tablet Follow package insructions. 1 kit 11/24/2024 11/30/2024 Active Start: 08-12-2022 Medrol 4 MG as directed Orally Throughout the day as directed for 6 days Aug, Active Start: 05-12-2022 methylPREDNISo lone 4 MG as directed Orally for daily dose take half with breakfast, half with dinner for 6 days May, Active ondansetron 4 mg disintegrating oral tablet (4 sources) Serotonin-3 Receptor Antagonist Start: 11-28-2024 take 1 tablet by mouth every eight hours as needed for nausea ondansetron ODT (Zofran-ODT) 4 MG disintegrating tablet Take 4 mg by mouth every 8 (eight) hours if needed for nausea 11/28/2024 Active Start: 07-20-2024 End: 07-20-2024 4 mg, IntraVENous, ONCE, 1 d ose, On Fri07/20/24 at 1800 take 1 tablet by tonja three times daily as needed Ondansetron 4 MG 1 tablet on the tongue and allow to dissolve Orally Up to three times a day as needed for 10 days Active predniSONE 50 mg oral tablet (1 source) Start: 07-20-2024 End: 07-25-2024 take 1 tablet by mouth once daily predniSONE (DELTASONE) 50 MG tablet Take 1 tablet by mouth daily for 5 days 5 tablet 07/20/2024 07/25/2024 Active traMADol hydrochloride 50 mg oral tablet (3 sources) Opioid Agonist Start: 07-20-2024 End: 07-23-2024 take 1 tablet by mouth every six hours as needed for pain traMADol (ULTRAM) 50 MG tablet Indications: Strain of lumbar region, initial encounter Take 1 tablet by mouth every 6 hours as needed for Pain for up to 3 days. Intended supply: 3 days. Take lowest dose possible to manage pain Max Daily Amount: 200 mg 12 tablet 07/20/2024 07/23/2024 Active traZODone hydrochloride 50 mg oral tablet (2 sources) Serotonin Reuptake Inhibitor take 1 tablet by mouth once daily traZODone HCl 50 MG TAKE 1 TABLET BY MOUTH NIGHTLY Oral for 30 Days Active Completed/Discontinued Medications Medication Drug Class(es) Dates Sig (Normalized) Sig (Original) [id number] 200 actuat albuterol 0.09 mg/actuat metered dose inhaler (3 sources) beta2-Adrenergic Agonist Start: 09-27-2022 take 2 puff(s) by inhalation every four to six hours as needed Albuterol Sulfate HFA 108 (90 Base) MCG/ACT 2 puffs as needed Inhalation every 4-6 hours for 14 days Sep, Not-Taking amoxicillin 500 mg oral capsule (3 sources) Penicillin-class Antibacterial Start: 02-08-2022 take 1 capsule by mouth every twelve hours Amoxicillin 500 MG 1 capsule Orally Twice a day for 10 day(s) Feb, Not-Taking 12 hr amoxicillin 1000 mg / clavulanate 62.5 mg extended release oral tablet (3 sources) Penicillin-class Antibacterial Start: 10-10-2023 End: 11-11-2023 Amoxicillin-Pot Clavulanate (Augmentin Xr) 1,000-62.5 mg tablet extended release 12 hr Discontinued 1 TAB PO Every 12 hours October 10, 2023 12:00am November 11, 2023 7:49am Start: 05-12-2022 take 1 tablet by tonja th every twelve hours Amoxicillin-Pot Clavulanate 875-125 MG 1 tablet Orally every 12 hrs for 10 day(s) May, Active cyclobenzaprine hydrochloride 10 mg oral tablet (7 sources) Muscle Relaxant Start: 07-20-2024 End: 07-20-2024 take 1 dose by mouth once 10 mg, Oral, ONCE, 1 dose, On Fri07/20/24 at 1615 Start: 07-20-2024 End: 07-30-2024 take 1 tablet by mouth three times daily as needed for muscle spasms cyclobenzaprine (FLEXERIL) 10 MG tablet Take 1 tablet by mouth 3 times daily as needed for Muscle spasms 21 tablet 07/20/2024 07/30/2024 Active dexamethasone phosphate 10 mg/ml injectable solution (1 source) Corticosteroid Start: 07-20-2024 End: 07-20-2024 10 mg, IntraVENous, ONCE, On Fri07/20/24 at 1615, For 1 dose dicyclomine hydrochloride 10 mg oral capsule (2 sources) Anticholinergic Start: 11-11-2023 End: 11-11-2023 take 10 mg by mouth three times daily Dicyclomine Discontinued 10 MG PO Three times daily November 11, 2023 12:00am November 11, 2023 2:33pm take 1 capsule by [facility] every eight hours Dicyclomine HCl 10 MG 1 capsule Orally Three times a day Active fluconazole 100 mg oral tablet (2 sources) Azole Antifungal Start: 05-20-2024 End: 05-23-2024 take 1 tablet by mouth once daily fluconazole (Diflucan) 100 MG tablet Indications: Candidiasis Take 1 tablet (100 mg) by mouth Daily for 3 days 3 tablet 05/20/2024 05/23/2024 1 ml ketorolac tromethamine 30 mg/ml cartridge (2 sources) Nonsteroidal Anti-inflammatory Drug, Cyclooxygenase Inhibitor Start: 08-05-2024 End: 08-05-2024 30 mg, IntraMUSCular, ONCE, 1 dose, On Victorina 08/05/24 at 1145, Do not administer for more than 5 days. Start: 07-20-2024 End: 07-20-2024 15 mg, IntraVENous, ONCE, 1 dose, On Fri07/20/24 at 1615, Do not administer for more than 5 days. miSOPROStol 0.2 mg oral tablet (3 sources) Prostaglandin E1 Analog Start: 12-04-2023 End: 05-10-2024 take 1 tablet by mouth once miSOPROStol (Cytotec) 200 MCG tablet Indications: Unwanted fertility , Menorrhagia with regular cycle Take 1 tablet (200 mcg) by mouth 1 (one) time for 1 dose Take 1 tablet the evening before IUD placement . 1 tablet 12/04/2023 05/10/2024 Discontinued (Therapy completed) 1 ml morphine sulfate 2 mg/ml cartridge (1 source) Opioid Agonist Start: 07-20-2024 End: 07-20-2024 take 1 dose by mouth every hour 2 mg, IntraVENous, ONCE, 1 dose, On Fri07/20/24 at 1800, If oral and IV narcotics ordered, use oral first and only use IV if oral is ineffective or cannot take oral. Do Not give oral and IV within 1 hour of each other unless specifically ordered. Problems Active Problems Problem Classification Problem Date Documented Date Episodic/Chronic Abdominal pain (2 sources) Upper abdominal pain; Translations: [Upper abdominal pain, unspecified] 12-03-2024 Episodic Adjustment disorders (11 sources) Adjustment disorder with anxious mood; Translations: [Adjustment disorder with anxiety] Onset: 12-26-2023 05-20-2024 Chronic Contraceptive and procreative management (1 source) Patient encounter status; Translations: [Encounter for initial prescription of contraceptive pills] 06-02-2024 Episodic Menstrual disorders (20 sources) Irregular periods; Translations: [Irregular menstruation, unspecified] Onset: 05-20-2024 05-20-2024 Chronic Mood disorders (20 sources) Chronic depression; Translations: [Chronic depression] Onset: 04-25-2020 10-10-2023 Chronic Mycoses (4 sources) Candidiasis; Translations: [Candidiasis, unspecified] 05-24-2024 Episodic Nausea and vomiting (5 sources) Nausea with vomiting, unspecified; Translations: [Nausea and vomiting] Episodic Other acquired deformities (1 source) Contracture, right ankle; Translations: [CONTRACTURE RIGHT ANKLE] Onset: 05-29-2020 Chronic Other acquired deformities (11 sources) Retrolisthesis; Translations: [Spondylolisthesis, site unspecified] Episodic Other endocrine disorders (5 sources) Polycystic ovary syndrome; Translations: [Polycystic ovarian syndrome] Onset: 05-28-2024 05-10-2024 Chronic Other nervous system disorders (11 sources) Piriformis syndrome; Translations: [Lesion of sciatic nerve, right lower limb] Chronic Other nervous system disorders (20 sources) Chronic pain; Translations: [Other chronic pain] Onset: 05-20-2024 05-20-2024 Chronic Other nervous system disorders (1 source) Other chronic pain; Translations: [Other chronic pain] Onset: 11-24-2024 Chronic Other non-traumatic joint disorders (1 source) Pain in left wrist Episodic Other nutritional; endocrine; and metabolic disorders (6 sources) Body mass index 30+ - obesity; Translations: [Body mass index (BMI) 39.0-39.9, adult] Chronic Other nutritional; endocrine; and metabolic disorders (1 source) Body mass index (BMI) 39.0-39.9, adult Chronic Other skin disorders (2 sources) Hirsutism; Translations: [Hirsutism] 05-10-2024 Episodic Other upper respiratory disease (20 sources) Allergic rhinitis due to pollen; Translations: [Allergic rhinitis due to pollen] Onset: 05-20-2024 11-10-2023 Chronic Other upper respiratory infections (8 sources) Acute pharyngitis, unspecified; Translations: [Streptococcal pharyngitis] Onset: 02-06-2022 Resolved: 02-08-2022 Episodic Spondylosis; intervertebral disc disorders; other back problems (10 sources) Prolapsed lumbar intervertebral disc; Translations: [Other intervertebral disc displacement, lumbar region] Onset: 05-20-2024 05-20-2024 Chronic Unclassified (1 source) Pain in left wrist; Translations: [Pain in left wrist] Onset: 12-09-2022 Unclassified (1 source) Low back pain, unspecified; Translations: [Low back pain, unspecified] Onset: 11-24-2024 Past or Other Problems Problem Classification Problem Date Documented Date Episodic/Chronic Administrative/social admission (11 sources) Phase of life problem; Translations: [Problems of adjustment to life-cycle transitions] Onset: 04-25-2020 05-20-2024 Episodic Immunizations and screening for infectious disease (4 sources) Contact with and (suspected) exposure to other viral communicable diseases; Translations: [CONTCT EXPS OTH VIRL COMMUNICABL DZ] Onset: 05-13-2020 Episodic Nonspecific chest pain (1 source) Other chest pain; Translations: [Other chest pain] Onset: 12-26-2023 Episodic Other acquired deformities (10 sources) Acquired spondylolisthesis; Translations: [Spondylolisthesis, site unspecified] Onset: 05-20-2024 05-20-2024 Episodic Other connective tissue disease (5 sources) Pain in right foot; Translations: [PAIN IN RIGHT FOOT] Onset: 03-23-2020 Episodic Other connective tissue disease (1 source) Peroneal tendinitis, right leg; Translations: [PERONEAL TENDINITIS RIGHT LEG] Onset: 05-29-2020 Episodic Other lower respiratory disease (1 source) Chronic cough; Translations: [Chronic cough] Onset: 08-13-2022 Episodic Other non-traumatic joint disorders (4 sources) Other specified joint disorders, right ankle and foot; Translations: [OTHER SPEC JOINT D/O RT ANKLE FOOT] Onset: 05-19-2020 Episodic Other non-traumatic joint disorders (5 sources) Pain in right ankle and joints of right foot; Translations: [PAIN IN RIGHT ANKLE] Onset: 02-29-2020 Episodic Other non-traumatic joint disorders (1 source) Other instability, right ankle; Translations: [OTHER INSTABILITY RIGHT ANKLE] Onset: 05-29-2020 Episodic Other screening for suspected conditions (not mental disorders or infectious disease) (7 sources) Encounter for screening for other metabolic disorders; Translations: [Encounter for screening for cardiovascular disorders] Onset: 07-20-2024 Episodic Other skin disorders (2 sources) Nonscarring hair loss, unspecified; Translations: [Nonscarring hair loss, unspecified] Onset: 08-14-2022 Episodic Other skin disorders (14 sources) Acne; Translations: [Acne, unspecified] Onset: 05-20-2024 10-10-2023 Episodic Otitis media and related conditions (12 sources) Acute bilateral otitis media ; Translations: [Otitis media, unspecified, bilateral] Onset: 05-20-2024 11-10-2023 Episodic Spondylosis; intervertebral disc disorders; other back problems (20 sources) Chronic back pain ; Translations: [Dorsalgia, unspecified] Onset: 05-20-2024 11-10-2023 Episodic Sprains and strains (5 sources) Strain of muscle(s) and tendon(s) of peroneal muscle group at lower leg level, right leg, sequela; Translations: [Sprain of other ligament of right ankle, subsequent encounter] Onset: 05-29-2020 Episodic Unclassified (1 source) Exposure to COVID-19 virus Z20.822 Onset: 07-03-2021 Resolved: 07-03-2021 Unclassified (1 source) Cough, unspecified type R05.9 Unclassified (1 source) Acute cough R05.1 Viral infection (1 source) COVID-19 Onset: 07-03-2021 Resolved: 07-03-2021 Results Test Name Value Interpretation Reference Range Facility HCG ( test) Ql (U)o n 12-03-2024 Interpretation and review of laboratory results Normal [facility] Preg Test, Ur Negative Negative [facility] Urinalysis macro (dipstick) panel (U)on 12-03-2024 Bilirubin, UA 3+ Negative - 4(70) +++ mg/dL [facility] Blood, UA Negative Negative - 50 Aidan/mcL [facility] Clarity, UA Clear [facility] Color, UA Yellow [facility] Glucose, UA Negative Negative - 1999(110) ++++ mg/dL [facility] Interpretation and review of laboratory results Abnormal [facility] Ketones, UA Positive Negative - 160(16) ++++ mg/dL [facility] Leukocytes, UA 1+ Negative - 500+++ Samira/mcL [facility] Nitrite, UA Negative Negative - Positive [facility] pH, UA 6 5 - 9 [facility] Protein, UA 1+ Negative - 1999(20) ++++ mg/dL [facility] Spec Grav, UA 1.02 1 - 1.03 [facility] Urobilinogen, UA 0.2 0.2 - 12 mg/dL [facility] CT LUMBAR SPINE WO CONTRASTo n 07-20-2024 CT LUMBAR SPINE WO CONTRAST EXAMINATION: CT OF THE LUMBAR SPINE WITHOUT [...] The paravertebral soft tissues are normal. SOFT TISSUES/RETROPERITONE UM: No paraspinal mass is seen. IMPRESSION: Mild [...] by: Octavio Lowe MD 07/20/24 Final result Normal [facility] CT Lumbar spine WO contrasto n 07-20-2024 Mild wedge compression fracture of L1 which [...] facets throughout with no significant spinal stenosis. [facility] RIS CONSOLIDATED EXAMINATION: CT OF THE LUMBAR SPINE WITHOUT [...] The paravertebral soft tissues are normal. SOFT TISSUES/RETROPERITONE UM: No paraspinal mass is seen. [facility] RIS CONSOLIDATED Octavio Lowe MD - 07/20/2024 EXAMINATION: CT OF THE LUMBAR SPINE WITHOUT [...] The paravertebral soft tissues are normal. SOFT TISSUES/RETROPERITONE UM: No paraspinal mass is seen. IMPRESSION: Mild [...] facets throughout with no significant spinal stenosis. [facility] Radiology Study observation (narrative) Bill vázquez [facility] CT Lumbar spine WO contrastO rdered By: Octavio Lowe on 07-20-2024 [facility] Work Phone: HCG, ,Urineon 07-20 Beta HCG ( test) Ql (U) Negative Normal NEG [facility] Comment on above: Result Comment: Spec imens with hCG levels near the threshold of the test (25 mIU/mL) may give a negative or indeterminate result. In such cases, another test should be performed with a new specimen in 48-72 hours. If early is suspected clinically in this setting, correlation with quantitative serum b-hCG level is suggested. [facility] has confirmed the use of plasma for this test. This has not been cleared or approved by the U.S. Food and Drug Administration. The FDA has determined that such clearance is not necessary. Performed By: #### U HCG #### [facility] [address] [place] [address] [place] [address] Play Leader: Roge Rios MD Microscopic Urinalysison Amorphous sediment LM Ql (Urine sed) 1+ Abnormal None [facility] Epithelial cells LM.HPF (Urine sed) [#/Area] 2 TO 5 [facility] Interpretation and review of laboratory results Abnormal [facility] RBC LM.HPF (Urine sed) [#/Area] 0 TO 2 [facility] Renal Epithelial, UA 2 TO 5 0 /HPF [facility] WBC LM.HPF (Urine sed) [#/Area] 5 TO 10 [facility] , Urineon 5 HCG ( test) Ql (U) Negative NEGATIVE [facility] Comment on above: Specimens with hCG l evels near the threshold of the test (25 mIU/mL) may give a negative or indeterminate result. In such cases, another test should be performed with a new specimen in 48-72 hours. If early is suspected clinically in this setting, correlation with quantitative serum b-hCG level is suggested. [facility] use [facility] for this test. This has not been cleared or approved by the U.S. Food and Drug Administration. The FDA has determined that such clearance is not necessary. [facility] Urinalysison 07-20-2024 Bilirubin Ql (U) Negative NEGATIVE [facility] gurpreet [facility] Clarity (U) SLIGHTLY CLOUDY Abnormal Clear [facility] Color (U) Yellow Yellow [facility] Glucose Test strip (U) [Mass/Vol] Negative NEGATIVE mg/dL [facility] Hemoglobin Auto test strip Ql (U) Negative NEGATIVE [facility] Interpretation and review of laboratory results Abnormal [facility] Ketones (U) [Mass/Vol] Negative NEGAT AUGUSTINE mg/dL [facility] Leukocyte esterase Test strip Ql (U) SMALL Abnormal NEGATIVE [facility] Nitrite Ql (U) Negative NEGATIVE [facility] pH (U) 8.0 [pH] 5.0 - 9.0 [facility] Protein (U) [Mass/Vol] Negative NEGAT AUGUSTINE mg/dL [facility] Specific gravity (U) [Rel density] 1.020 1.010 - 1.020 [facility] Urobilinogen Qn (U) Normal 0.0 - 1. 0 EU/dL [facility] Urinalysis, Routineon 2024 Bilirubin, SemiQt,Ur Negative Normal NEG [facility] Comment on above: Performed By: #### U A, UMICAO #### [facility] [address] [place] [address] Play Leader: Roge Rios MD Blood, Urine Negative Normal NEG [facility] Comment on above: Performed By: #### U A, UMICAO #### [facility] [address] [place] [address] Play Leader: Roge Rios MD Clarity (U) SLIGHTLY CLOUDY Abnormal CLEAR [facility] Comment on above: Performed By: #### U A, UMICAO #### [facility] [address] [place] [address] [place]. [place], [place] [id number] Play Leader: Roge Rios MD Color (U) Yellow Normal YEL [facility] Comment on above: Performed By: #### U A, UMICAO #### [facility] [address] [place] [address] [place]. [place], [place] [id number] Play Leader: Roge Rios MD Glucose Ql (U) Negative Normal NEG [facility] in Hospital Comment on above: Performed By: #### U A, UMICAO #### [facility] [address] [place] [address] [place] [address] Play Leader: Roge Rios MD Ketones Ql (U) Negative Normal NEG [facility] Comment on above: Performed By: #### U A, UMICAO #### [facility] [address] [place] [address] [place] [place], [place] [id number] Play Leader: Roge Rios MD Leukocyte esterase Test strip Ql (U) SMALL Abnormal NEG [facility] Comment on above: Performed By: #### U A, UMICAO #### [facility] [address] [place] [address] [place] [address] Play Leader: Roge Rios MD Nitrite,Ur Negative Normal NEG [facility] Comment on above: Performed By: #### U A, UMICAO #### [facility] [address] [place] [address] [place] [address] Play Leader: Roge Rios MD PH,Ur 8.0 Normal 5.0-9.0 [facility] Comment on above: Performed By: #### U A, UMICAO #### [facility] [address] [place] [address] [place] [place], [place] [id number] Play Leader: Roge Rios MD Protein Ql (U) Negative Normal NEG [facility] Comment on above: Performed By: #### U A, UMICAO #### [facility] [address] [place] [address] Dr. [place], [place] [address] Play Leader: Roge Rios MD Spec. [place],Ur 1.020 Normal 1.010-1.020 [facility] Comment on above: Performed By: #### U A, UMICAO #### [facility] [address] [place] [address] Dr. [place], [place] [address] Play Leader: Roge Rios MD Urobilinogen,Ur Normal Normal 0.0-1.0 [facility] Comment on above: Performed By: #### U A, UMICAO #### [address] [place] [address] Play Leader: Roge Rios MD Urinalysis,Microon 5 Amorphous sediment LM Ql (Urine sed) 1+ Abnormal NONE [facility] Comment on above: Performed By: #### U A, UMICAO #### [address] [place], [place] [address] Play Leader: Roge Rios MD Epithelial cells LM Ql (Urine sed) 2 TO 5 Normal 0-25 [facility] Comment on above: Performed By: #### U A, UMICAO #### [facility] [address] [place] [address] Dr. [place], [place] [address] Play Leader: Roge Rios MD Epithelial, Renal 2 TO 5 Normal 0 [facility] Comment on above: Performed By: #### U A, UMICAO #### [facility] [address] [place] [address] [place] [address] Play Leader: Roge Rios MD Urine RBC's 0 TO 2 Normal 0-2 [facility] Comment on above: Performed By: #### U A, UMICAO #### [address] [place] [address] Play Leader: Roge iRos MD Urine WBC's 5 TO 10 Normal 0-5 [facility] Comment on above: Performed By: #### U BHAVANI Barber #### [facility] [address] [place] [address] Play Leader: Roge Rios MD COVID + FLU Quick Testingon 07-09-2023 SARS-CoV-2 (COVID-19) RNA THA+probe Ql (Unsp spec) Negative [employer] Other COVID + FLU Quick Testing Negative [facility] [employer] Other XR wrist LT min 3V*on 2022 XR wrist LT min 3V* [facility] [employer] Other XR wrist LT min 3V* [facility] [employer] Other XR wrist LT min 3V* [address] [place] [address] [employer] Other XR wrist LT min 3V* [place] [address] [employer] Other XR wrist LT min 3V* XRay Report Nort [employer] Other XR wrist LT min 3V* Signed [employer] Other XR wrist LT min 3V* Patient: Edwige Patterson MR#: [id number] [employer] Other XR wrist LT min 3V* [id number] [employer] Other XR wrist LT min 3V* : 2000 Acct:[id number] [employer] Other XR wrist LT min 3V* Age/Sex: 22 / F ADM Date: 12/09/22 [employer] Other XR wrist LT min 3V* Loc: XDUCLY Room: Type: [facility] [employer] Other XR wrist LT min 3V* Attending Dr: Lexy BLAKE [employer] Other XR wrist LT min 3V* Copies to: LOU Hernandez [employer] Other XR wrist LT min 3V* Ordering Provider: LOU Hernandez [employer] Other XR wrist LT min 3V* Date of Service: 12/09/22 [employer] Other XR wrist LT min 3V* XR/XR wrist LT min 3V*: Left wrist pain [employer] Other XR wrist LT min 3V* ([id number]) XR/XR hand LT min 3V*: Left wrist pain [employer] Other XR wrist LT min 3V* 3 views LEFT hand plain film [employer] Other XR wrist LT min 3V* COMPARISON: None [employer] Other XR wrist LT min 3V* HISTORY: LEFT hand injury. Pain involving the distal middle finger. Dorsal wrist pain [employer] Other XR wrist LT min 3V* ACUTE FINDINGS: None [employer] Other XR wrist LT min 3V* DEGENERATIVE CHANGE: Unremarkable [employer] Other XR wrist LT min 3V* SOFT TISSUE FINDINGS : Unremarkable [employer] Other XR wrist LT min 3V* JOINT EFFUSION: None [employer] Other XR wrist LT min 3V* POSTOP CHANGES: None [employer] Other XR wrist LT min 3V* BONY MINERALIZATION: Adequate [employer] Other XR wrist LT min 3V* XR/XR hand LT min 3V* [employer] Other XR wrist LT min 3V* IMPRESSION: No acute findings [employer] Other XR wrist LT min 3V* 4 views LEFT wrist plain film [employer] Other XR wrist LT min 3V* BONE MINERALIZATION: Adequate [employer] Other XR wrist LT min 3V* IMPRESSION: No acute bony findings. [employer] Other XR wrist LT min 3V* Impression dictated by: Misbah Mast M.D.12/09/2022 11:59 AM [employer] Other XR wrist LT min 3V* Dictation Location: [place] [address] [employer] Other XR wrist LT min 3V* Transcribed By: PWS 12/09/22 1159 [employer] Other XR wrist LT min 3V* Dictated By: Misbah Mast DO 12/09/22 1158 [employer] Other XR wrist LT min 3V* Signed By: [employer] Other XR wrist LT min 3V* 12/09/22 1159 No rt [employer] Other XR wrist LT min 3V* [facility] Main [place] [address] [place] [address] XRay Report Signed Patient: Edwige Patterson MR#: [id number] : 2000 Acct:[id number] Age/Sex: 22 / F ADM Date: 12/09/22 Loc: XDUCLY Room: Type: [facility] Attending Dr: Lexy BLAKE Copies to: LOU Hernandez Ordering Provider: LOU Hernandez Date of Service: 12/09/22 XR/XR wrist LT min 3V*: Left wrist pain ([id number]) XR/XR hand LT min 3V*: Left wrist pain 3 views LEFT hand plain film COMPARISON: None HISTORY: LEFT hand injury. Pain involving the distal middle finger. Dorsal wrist pain ACUTE FINDINGS: None DEGENERATIVE CHANGE: Unremarkable SOFT TISSUE FINDINGS: Unremarkable JOINT EFFUSION: None POSTOP CHANGES: None BONY MINERALIZATION: Adequate XR/XR hand LT min 3V* IMPRESSION: No acute findings 4 views LEFT wrist plain film COMPARISON: None ACUTE FINDINGS: None DEGENERATIVE CHANGE: Unremarkable SOFT TISSUE FINDINGS: Unremarkable JOINT EFFUSION: None POSTOP CHANGES: None BONE MINERALIZATION: Adequate IMPRESSION: No acute bony findings. Impression dictated by: Misbah Mast M.D.12/09/2022 11:59 AM Dictation Location: [place] [address] Transcribed By: [facility] 12/09/22 1159 Dictated By: Misbah Mast DO 12/09/22 1158 Signed By: 12/09/22 1159 Normal [facility] A1C with Estimated Average G jaredn 08-14-2022 HbA1c (Bld) [Mass fraction] 5.200 % Normal 4.3-5.6 % [facility] [employer] Other HbA1c (Bld) [Mass fraction] 103 mg/dL [facility] [employer] Other Glucose [Mass/Vol] 103 mg/dL Normal [facility] Comment on above: Result Comment: PERF ORMED BY: [place] [address] PATHOLOGIST SALES RECORD CLERK KULWANT GOMEZ M.D. Performed By: #### C BC, TSH3, CMP, A1C WTH eA, LIPID #### [facility] [address] HbA1c (Bld) [Mass fraction] 5.2 % Normal 4.3-5.6 [facility] Comment on above: Result Comment: Incr eased risk for diabetes: 5.7 - 6.4 diabetes: >6.4 glycemic control for adults with diabetes: <7.0 Performed By: #### C BC, TSH3, CMP, A1C WTH eA, LIPID #### [facility] [address] [place] [id number] [place] Albumin [Mass/volume] in Ser um or PlasmaOrdered By: Becky Guaman on 08-14-2022 Albumin [Mass/Vol] 3.9 g/dL 3.2-5.5 [facility] Basophils Auto (Bld) [#/Vol] Ordered By: Becky Guaman on 08-14-2022 Basophils (Bld) [#/Vol] 0.0 10*3/uL 0.0-0.2 [facility] Basophils/100 WBC Auto (Bld) Ordered By: Becky Guaman on 08-14-2022 Basophils/100 WBC (Bld) 0.6 % . F [facility] Cholesterol [Mass/volume] in Serum or PlasmaOrdered By: Becky Guaman on 08-14-2022 Cholesterol [Mass/Vol] 195 mg/dL Normal 140-2 00 mg/dL [facility] Comment on above: Chol less than 200 m g/dl low riskChol 201-239 mg/dl borderline riskChol 240 mg/dl and greater high risk Cholesterol in LDL Calc [Mas s/Vol]Ordered By: Becky Guaman on 08-14-2022 Cholesterol in LDL [Mass/Vol] 146 mg/dL 0-100 [facility] Comment on above: LDL ATP III CLASSIFI CATIONLDL less than 100 mg/dL OptimalLDL 100-129 mg/dL Near or above optimalLDL 130-159 mg/dL Borderline highLDL 160-189 mg/dL HighLDL greater than 189 mg/dL Very high Cholesterol in VLDL Calc [Ma ss/Vol]Ordered By: Becky Guaman on 08-14-2022 Cholesterol in VLDL [Mass/Vol] 16 mg/dL [facility] Complete Blood Count Auto Di ffon 08-14-2022 Basophils (Bld) [#/Vol] 0.307217071 10*3/uL Normal 0.0-0.2 10*3/uL [employer] Other Basophils/100 WBC (Bld) 0.600 % . % N [facility] Other Eosinophils (Bld) [#/Vol] 0.740666715 10*3/uL Normal 0.0-0.45 10*3/uL [employer] Other Eosinophils/100 WBC (Bld) 2.300 % . % [employer] Other Erythrocyte distribution width (RBC) [Ratio] 12.400 % Normal 11.9-15.3 % [employer] Other Hematocrit (Bld) [Volume fraction] 39.700 % Normal 34.0-46.4 % [employer] Other Hemoglobin (Bld) [Mass/Vol] 13.527222 g/dL Normal 11.8-15.4 g/dL [employer] Other Lymphocytes (Bld) [#/Vol] 1.743328400 10*3/uL Normal 1.00-4.8 10*3/uL [employer] Other Lymphocytes/100 WBC (Bld) 22.500 % . % [employer] Other MCH (RBC) [Entitic mass] 30.2000 pg Normal 24.7-34.3 pg [employer] Other MCV (RBC) [Entitic vol] 90.5000 fL Normal 80-100 fL [facility] Other Monocytes (Bld) [#/Vol] 0.492430854 10*3/uL Normal 0.0-0.8 10*3/uL [employer] Other Monocytes/100 WBC (Bld) 6.800 % . % N [facility] Other Neutrophils (Bld) [#/Vol] 3.381506570 10*3/uL Normal 1.8-7.7 10*3/uL [employer] Other Neutrophils/100 WBC (Bld) 67.800 % . % [employer] Other Platelet mean volume (Bld) [Entitic vol] 9.0000 fL Normal 6.3-10.7 fL [employer] Other WBC (Bld) [#/Vol] 5.487729925 10*3/uL Normal 3.8 -11.6 10*3/uL [employer] Other Complete Blood Count Auto Diff 5.6 10*3/uL Normal 3.8-11.6 10*3/uL [employer] Other Complete Blood Count Auto Diff 33.4 g/dL Normal 32.0-35.0 g/dL [employer] Other Complete Blood Count Auto Diff 0.3 /100{WBC} Normal 0-0.5 /100{WBC} [facility] [employer] Other Basophils (Bld) [#/Vol] 0.0 10*3/uL Normal 0.0-0.2 [facility] Comment on above: Result Comment: PERF ORMED BY: [address] [place] [address] PATHOLOGIST SALES RECORD CLERK KULWANT GOMEZ M.D. Performed By: #### C BC, TSH3, CMP, A1C WTH eA, LIPID #### [facility] [address] [place] [address] [place] Basophils/100 WBC (Bld) 0.6 % Normal . F [facility] Comment on above: Performed By: #### C BC, TSH3, CMP, A1C WTH eA, LIPID #### [facility] [address] [place] [address] [place] Eosinophils (Bld) [#/Vol] 0.1 10*3/uL Normal 0.0-0.45 [facility] Comment on above: Performed By: #### C BC, TSH3, CMP, A1C WTH eA, LIPID #### [facility] [address] [place] [address] [place] Eosinophils/100 WBC (Bld) 2.3 % Normal . [facility] Comment on above: Performed By: #### C BC, TSH3, CMP, A1C WTH eA, LIPID #### [facility] [address] [place] [address] [place] Erythrocyte distribution width (RBC) [Ratio] 12.4 % Normal 11.9-15.3 [facility] Comment on above: Performed By: #### C BC, TSH3, CMP, A1C WTH eA, LIPID #### [address] Hematocrit (Bld) [Volume fraction] 39.7 % Normal 34.0-46.4 [facility] Comment on above: Performed By: #### C BC, TSH3, CMP, A1C WTH eA, LIPID #### [address] Hemoglobin (Bld) [Mass/Vol] 13.2 g/dL Normal 11.8-15.4 [facility] Comment on above: Performed By: #### C BC, TSH3, CMP, A1C WTH eA, LIPID #### [address] Lymphocytes (Bld) [#/Vol] 1.3 10*3/uL Normal 1.00-4.8 [facility] Comment on above: Performed By: #### C BC, TSH3, CMP, A1C WTH eA, LIPID #### [address] Lymphocytes/100 WBC (Bld) 22.5 % Normal . [facility] Comment on above: Performed By: #### C BC, TSH3, CMP, A1C WTH eA, LIPID #### [address] MCH (RBC) [Entitic mass] 30.2 pg Normal 24.7-34.3 [facility] Comment on above: Performed By: #### C BC, TSH3, CMP, A1C WTH eA, LIPID #### [address] MCV (RBC) [Entitic vol] 90.5 fL Normal 80-100 F [facility] Comment on above: Performed By: #### C BC, TSH3, CMP, A1C WTH eA, LIPID #### [address] Mean Corpuscular HGB Conc 33.4 g/dL Normal 32.0-35.0 [facility] Comment on above: Performed By: #### C BC, TSH3, CMP, A1C WTH eA, LIPID #### [facility] [address] [place] [address] [place] Monocytes (Bld) [#/Vol] 0.4 10*3/uL Normal 0.0-0.8 [facility] Comment on above: Performed By: #### C BC, TSH3, CMP, A1C WTH eA, LIPID #### [facility] [address] [place] [address] [place] Monocytes/100 WBC (Bld) 6.8 % Normal . F [facility] Comment on above: Performed By: #### C BC, TSH3, CMP, A1C WTH eA, LIPID #### [facility] [address] [place] [address] [place] Neutrophils (Bld) [#/Vol] 3.8 10*3/uL Normal 1.8-7.7 [facility] Comment on above: Performed By: #### C BC, TSH3, CMP, A1C WTH eA, LIPID #### [facility] [address] [place] [address] [place] Neutrophils/100 WBC (Bld) 67.8 % Normal . [facility] Comment on above: Performed By: #### C BC, TSH3, CMP, A1C WTH eA, LIPID #### [facility] [address] [place] [address] [place] NRBC% 0.3 /100{WBC} Normal 0-0.5 [facility] Comment on above: Performed By: #### C BC, TSH3, CMP, A1C WTH eA, LIPID #### [facility] [address] [place] [address] [place] Platelet mean volume (Bld) [Entitic vol] 9.0 fL Normal 6.3-10.7 [facility] Comment on above: Performed By: #### C BC, TSH3, CMP, A1C WTH eA, LIPID #### [facility] [address] [place] [address] [place] Platelets (Bld) [#/Vol] 232 10*3/uL Normal 150-450 [facility] Comment on above: Performed By: #### C BC, TSH3, CMP, A1C WTH eA, LIPID #### [facility] [address] RBC (Bld) [#/Vol] 4.38 10*6/uL Normal 3.60-5.00 [facility] Comment on above: Performed By: #### C BC, TSH3, CMP, A1C WTH eA, LIPID #### [facility] [address] [place] [id number] [facility] WBC (Bld) [#/Vol] 5.6 10*3/uL Normal 3.8-11.6 [facility] Comment on above: Performed By: #### C BC, TSH3, CMP, A1C WTH eA, LIPID #### [facility] [address] Comprehensive Metabolic Pane amandeep 08-14-2022 Albumin [Mass/Vol] 3.541442 g/dL Normal 3.2-5.5 g/dL [facility] Other Bilirubin [Mass/Vol] 0.9651466 mg/dL Normal 0.3- 1.2 mg/dL [employer] Other Calcium [Mass/Vol] 9.3558641 mg/dL Normal 8.2-10 .2 mg/dL [employer] Other CO2 [Moles/Vol] 23.39153423 mmol/L Normal 22.0-3 0.0 mmol/L [employer] Other Creatinine [Mass/Vol] 0.03098702 mg/dL Normal 0. 44-1.03 mg/dL [employer] Other Potassium [Moles/Vol] 3.42800035 mmol/L Normal 3 .5-5.1 mmol/L [employer] Other Protein [Mass/Vol] 6.417072 g/dL Normal 6.1-7.9 g/dL N [facility] Other Comprehensive Metabolic Panel > 60 [facility] [employer] Other Comprehensive Metabolic Panel 2.7 g/dL [facility] [employer] Other Albumin [Mass/Vol] 3.9 g/dL Normal 3.2-5.5 [facility] Comment on above: Performed By: #### C BC, TSH3, CMP, A1C WTH eA, LIPID #### [facility] [address] Albumin/Globulin [Mass ratio] 1.4 {ratio} Normal [facility] Comment on above: Performed By: #### C BC, TSH3, CMP, A1C WTH eA, LIPID #### [facility] [address] ALP [Catalytic activity/Vol] 69 U/L Normal 32-92 [facility] Comment on above: Performed By: #### C BC, TSH3, CMP, A1C WTH eA, LIPID #### [facility] [address] ALT [Catalytic activity/Vol] 34 U/L Normal 10-60 [facility] [employer] Other Comment on above: Performed By: #### C BC, TSH3, CMP, A1C WTH eA, LIPID #### [facility] [address] [place] [id number] [facility] Anion gap [Moles/Vol] 9.7 mmol/L Normal 6.0-15.0 [facility] Comment on above: Performed By: #### C BC, TSH3, CMP, A1C WTH eA, LIPID #### [facility] [address] [place] [id number] [place] AST [Catalytic activity/Vol] 30 U/L Normal 10-42 [facility] Comment on above: Performed By: #### C BC, TSH3, CMP, A1C WTH eA, LIPID #### [facility] [address] [place] [id number] [facility] Bilirubin [Mass/Vol] 0.7 mg/dL Normal 0.3-1.2 [facility] Comment on above: Performed By: #### C BC, TSH3, CMP, A1C WTH eA, LIPID #### [facility] [address] Calcium [Mass/Vol] 9.2 mg/dL Normal 8.2-10.2 [facility] Comment on above: Performed By: #### C BC, TSH3, CMP, A1C WTH eA, LIPID #### [facility] [address] [place] [address] [place] Chloride [Moles/Vol] 108 mmol/L Normal 95-114 [facility] Comment on above: Performed By: #### C BC, TSH3, CMP, A1C WTH eA, LIPID #### [facility] [address] CO2 [Moles/Vol] 23.1 mmol/L Normal 22.0-30.0 [facility] Comment on above: Performed By: #### C BC, TSH3, CMP, A1C WTH eA, LIPID #### [facility] [address] Creatinine [Mass/Vol] 0.75 mg/dL Normal 0.44-1.03 [facility] Comment on above: Performed By: #### C BC, TSH3, CMP, A1C WTH eA, LIPID #### [facility] [address] Estimated GFR ( [place] > 60 [facility] Comment on above: Result Comment: GFR estimated reference range: According to KDOQI guidelines, <60 ml/min/1.73m2 is sufficient to diagnose a patient with chronic kidney disease. Performed By: #### C BC, TSH3, CMP, A1C WTH eA, LIPID #### [facility] [address] Estimated GFR (Non- Am > 60 [facility] Comment on above: Performed By: #### C BC, TSH3, CMP, A1C WTH eA, LIPID #### [facility] [address] Globulin (S) [Mass/Vol] 2.7 g/dL Normal [facility] Comment on above: Performed By: #### C BC, TSH3, CMP, A1C WTH eA, LIPID #### [facility] [address] [place] [address] [place] Glucose [Mass/Vol] 87 mg/dL Normal 70-100 [facility] Comment on above: Result Comment: [facility] Glucose Reference Range is dependent on time and content of last meal. Glucose of more than 200 mg/dL in a nonstressed, ambulatory subject supports the diagnosis of Diabetes Mellitus. ADA recommended reference range Performed By: #### C BC, TSH3, CMP, A1C WTH eA, LIPID #### [facility] [address] Potassium [Moles/Vol] 3.8 mmol/L Normal 3.5-5.1 [facility] Comment on above: Performed By: #### C BC, TSH3, CMP, A1C WTH eA, LIPID #### [facility] [address] Protein [Mass/Vol] 6.6 g/dL Normal 6.1-7.9 [facility] Comment on above: Performed By: #### C BC, TSH3, CMP, A1C WTH eA, LIPID #### [facility] [address] [place] [address] [place] Sodium [Moles/Vol] 137 mmol/L Normal 136-146 [facility] Comment on above: Performed By: #### C BC, TSH3, CMP, A1C WTH eA, LIPID #### [facility] [address] [place] [address] [place] Urea nitrogen [Mass/Vol] 5 mg/dL Low 9-23 [facility] Comment on above: Performed By: #### C BC, TSH3, CMP, A1C WTH eA, LIPID #### [facility] [address] [place] [address] [place] Creatinine and Glomerular fi ltration rate.predicted panel (S/P/Bld)Ordered By: Becky Guaman on 08-14-2022 Creatinine [Mass/Vol] 0.75 mg/dL 0.44-1.03 [facility] Eosinophils Auto (Bld) [#/Vo l]Ordered By: Becky Guaman on 08-14-2022 Eosinophils (Bld) [#/Vol] 0.1 10*3/uL 0.0-0.45 [facility] [facility] Eosinophils/100 WBC Auto (Bl d)Ordered By: Becky Guaman on 08-14-2022 Eosinophils/100 WBC (Bld) 2.3 % . [facility] Erythrocyte distribution wid th Auto (RBC) [Ratio]Ordered By: Becky Guaman on 08-14-2022 Erythrocyte distribution width (RBC) [Ratio] 12.4 % 11.9-15.3 [facility] Erythrocytes [#/volume] in B lood by Automated countOrdered By: Becky Guaman on 08-14-2022 RBC (Bld) [#/Vol] 4.38 10*6/uL Normal 3.60-5.00 [facility] Estimated glomerular filtrat ion rate (GFR) non- AmericanOrdered By: Becky Guaman on 08-14-2022 GFR/1.73 sq M.predicted among non-blacks MDRD (S/P/Bld) [Vol rate/Area] > 60 mL/Min [facility] Globulin Calc (S) [Mass/Vol] Ordered By: Becky Guaman on 08-14-2022 Globulin (S) [Mass/Vol] 2.7 g/dL F [facility] Hematocrit Auto (Bld) [Volum e fraction]Ordered By: Becky Guaman on 08-14-2022 Hematocrit (Bld) [Volume fraction] 39.7 % 34.0-46.4 [facility] Hemoglobin [Mass/volume] in BloodOrdered By: Becky Guaman on 08-14-2022 Hemoglobin (Bld) [Mass/Vol] 13.2 g/dL 11.8-15.4 [facility] Leukocytes [#/volume] correc kalyani for nucleated erythrocytes in Blood by Automated counOrdered By: Becky Guaman on 08-14-2022 WBC corrected for nucl RBC Auto (Bld) [#/Vol] 5.6 10*3/uL 3.8-11.6 [facility] Lipid Panelon 08-14-2022 Cholesterol in LDL Elph Qn 146 mg/dL High 0-100 mg/dL [facility] Other Lipid Panel 84 mg/dL Normal 35-149 mg/dL [facility] Other Lipid Panel 16 mg/dL [facility] Other Cholesterol [Mass/Vol] 195 mg/dL Normal 140-200 [facility] Comment on above: Result Comment: Chol less than 200 mg/dl low risk Chol 201-239 mg/dl borderline risk Chol 240 mg/dl and greater high risk Performed By: #### C BC, TSH3, CMP, A1C WTH eA, LIPID #### [facility] [address] [place] [address] [place] Cholesterol in HDL [Mass/Vol] 32 mg/dL Low 35-85 [facility] Comment on above: Result Comment: HDL CHOL ATP-III CLASSIFICATION Cardiovascular Risk HDL > or equal to 60 mg/dL LOW HDL < 40 mg/dL HIGH Performed By: #### C BC, TSH3, CMP, A1C WTH eA, LIPID #### [facility] [address] [place] [address] [place] Cholesterol.total/Vero sterol in HDL [Mass ratio] 6.1 {ratio} Normal <5.0 [facility] Comment on above: Performed By: #### C BC, TSH3, CMP, A1C WTH eA, LIPID #### [facility] [address] [place] [address] [place] LDL Cholesterol,Calculated 146 mg/dL High 0-100 [facility] Comment on above: Result Comment: LDL ATP III CLASSIFICATION LDL less than 100 mg/dL Optimal LDL 100-129 mg/dL Near or above optimal LDL 130-159 mg/dL Borderline high LDL 160-189 mg/dL High LDL greater than 189 mg/dL Very high Performed By: #### C BC, TSH3, CMP, A1C WTH eA, LIPID #### [facility] [address] [place] [address] [place] Triglyceride w/Reflex 84 mg/dL Normal 35-149 [facility] Comment on above: Result Comment: TRIG ATP III CLASSIFICATION TRIG less than 150 mg/dL Normal TRIG 150-199 mg/dL Borderline high TRIG 200-500 mg/dL High TRIG greater than 500 mg/dL Very high Standard traceable to the Center for Disease Conrtrol and Prevention (CDC) test method. Performed By: #### C BC, TSH3, CMP, A1C WTH eA, LIPID #### [facility] [address] VLDL CHOLESTEROL 16 mg/dL Normal [facility] Comment on above: Performed By: #### C BC, TSH3, CMP, A1C WT eA, LIPID #### [facility] [address] Lymphocytes Auto (Bld) [#/Vo l]Ordered By: Becky Guaman on 08-14-2022 Lymphocytes (Bld) [#/Vol] 1.3 10*3/uL 1.00-4.8 [facility] Lymphocytes/100 WBC Auto (Bl d)Ordered By: Becky Guaman on 08-14-2022 Lymphocytes/100 WBC (Bld) 22.5 % . [facility] MCH Auto (RBC) [Entitic mass ]Ordered By: Becky Guaman on 08-14-2022 MCH (RBC) [Entitic mass] 30.2 pg 24.7-34.3 [facility] MCHC Auto (RBC) [Mass/Vol]Or dered By: Becky Guaman on 08-14-2022 MCHC (RBC) [Mass/Vol] 33.4 g/dL 32.0-35.0 [facility] MCV Auto (RBC) [Entitic vol] Ordered By: Becky Guaman on 08-14-2022 MCV (RBC) [Entitic vol] 90.5 fL 80-100 F [facility] Monocytes Auto (Bld) [#/Vol] Ordered By: Becky Guaman on 08-14-2022 Monocytes (Bld) [#/Vol] 0.4 10*3/uL 0.0-0.8 [facility] Monocytes/100 WBC Auto (Bld) Ordered By: Becky Guaman on 08-14-2022 Monocytes/100 WBC (Bld) 6.8 % . F [facility] Neutrophils Auto (Bld) [#/Vo l]Ordered By: Becky Guaman on 08-14-2022 Neutrophils (Bld) [#/Vol] 3.8 10*3/uL 1.8-7.7 [facility] Neutrophils/100 WBC Auto (Bl d)Ordered By: Becky Guaman on 08-14-2022 Neutrophils/100 WBC (Bld) 67.8 % . [facility] No Panel InformationOrdered By: Becky Guaman on 08-14-2022 Estimated GFR () > 60 mL/Min [facility] Comment on above: GFR estimated refere nce range: According to KDOQI guidelines, <60 ml/min/1.73m2 is sufficient to diagnose a patient with chronic kidney disease. Pharmacy Creatinine Clearance (Chem N/A [facility] Nucleated erythrocytes [Pres ence] in Blood by Automated countOrdered By: Becky Guaman on 08-14-2022 Nucleated RBC Auto Ql (Bld) 0.3 /100{WBC} 0-0.5 [facility] Platelet mean volume Auto (B ld) [Entitic vol]Ordered By: Becky Guaman on 08-14-2022 Platelet mean volume (Bld) [Entitic vol] 9.0 fL 6.3-10.7 [facility] Platelets [#/volume] in Bloo d by Automated countOrdered By: Becky Guaman on 08-14-2022 Platelets (Bld) [#/Vol] 232 10*3/uL Normal 150- 450 10*3/uL [facility] Protein [Mass/volume] in Ser um or PlasmaOrdered By: Becky Guaman on 08-14-2022 Protein [Mass/Vol] 6.6 g/dL 6.1-7.9 [facility] Serum or plasma alanine kinsey otransferase measurement without P-5'-P (enzymatic activiOrdered By: Becky Guaman on 08-14-2022 ALT No additional P-5'-P [Catalytic activity/Vol] 34 U/L 10-60 [facility] Serum or plasma albumin/glob ulin mass ratioOrdered By: Becky Guaman on 08-14-2022 Albumin/Globulin [Mass ratio] 1.4 {ratio} [facility] Serum or plasma alkaline jean claude sphatase measurement (enzymatic activity/volume)Ordered By: Becky Guaman on 08-14-2022 ALP [Catalytic activity/Vol] 69 U/L Normal 32-92 U/L [facility] Serum or plasma anion gap de terminationOrdered By: Becky Guaman on 08-14-2022 Anion gap [Moles/Vol] 9.7 mmol/L 6.0-15.0 [facility] Serum or plasma aspartate am inotransferase measurement (enzymatic activity/volume)Ordered By: Becky Guaman on 08-14-2022 AST [Catalytic activity/Vol] 30 U/L Normal 10-42 U/L [facility] Serum or plasma calcium daily urement (mass/volume)Ordered By: Becky Guaman on 08-14-2022 Calcium [Mass/Vol] 9.2 mg/dL 8.2-10.2 [facility] Serum or plasma chloride julisa surement (moles/volume)Ordered By: Becky Guaman on 08-14-2022 Chloride [Moles/Vol] 108 mmol/L Normal 95-114 mmol/L [facility] Serum or plasma glucose daily urement (mass/volume)Ordered By: Becky Guaman on 08-14-2022 Glucose [Mass/Vol] 87 mg/dL Normal 70-100 mg/dL [facility] Comment on above: ADA recommended refe rence rangeRandom Glucose Reference Range is dependent on time and content of last meal. Glucose of more than 200 mg/dL in a nonstressed, ambulatory subject supports the diagnosis of Diabetes Mellitus. Serum or plasma high density lipoprotein (HDL) cholesterol measurementOrdered By: Becky Guaman on 08-14-2022 Cholesterol in HDL [Mass/Vol] 32 mg/dL Low 35-85 mg/dL [facility] Comment on above: HDL CHOL ATP-III CLA SSIFICATION Cardiovascular RiskHDL > or equal to 60 mg/dL LOWHDL < 40 mg/dL HIGH Serum or plasma potassium me asurement (moles/volume)Ordered By: Becky Guaman on 08-14-2022 Potassium [Moles/Vol] 3.8 mmol/L 3.5-5.1 [facility] Serum or plasma sodium measu rement (moles/volume)Ordered By: Becky Guaman on 08-14-2022 Sodium [Moles/Vol] 137 mmol/L Normal 136-146 mmol/L [facility] Serum or plasma total biliru bin measurement (mass/volume)Ordered By: Becky Guaman on 08-14-2022 Bilirubin [Mass/Vol] 0.7 mg/dL 0.3-1.2 [facility] Serum or plasma total carbon dioxide measurement (moles/volume)Ordered By: Becky Guaman on 08-14-2022 CO2 [Moles/Vol] 23.1 mmol/L 22.0-30.0 [facility] Serum or plasma total choles terol/high density lipoprotein (HDL) cholesterol mass ratOrdered By: Becky Guaman on 08-14-2022 Cholesterol.total/Vero sterol in HDL [Mass ratio] 6.1 {ratio} <5.0 [facility] Serum or plasma urea nitroge n measurement (mass/volume)Ordered By: Becky Guaman on 08-14-2022 Urea nitrogen [Mass/Vol] 5 mg/dL Low 9-23 mg/dL [facility] TSH DL <= 0.005 mIU/L QnOrde red By: Becky Guaman on 08-14-2022 TSH Qn 1.77 m[IU]/L 0.45-5.33 [facility] Thyroid Stimulating Hormoneo n 08-14-2022 TSH Qn 1.77 m[IU]/L Normal 0.45-5.33 [facility] Comment on above: Result Comment: PERF ORMED BY: [facility] [address] [facility] [place] [address] PATHOLOGIST SALES RECORD CLERK KULWANT GOMEZ M.D. Performed By: #### C BC, TSH3, CMP, A1C WTH eA, LIPID #### [address] [address] [facility] Triglyceride [Mass/volume] i n Serum or PlasmaOrdered By: Becky Guaman on 08-14-2022 Triglyceride [Mass/Vol] 84 mg/dL 35-149 F [facility] Comment on above: TRIG ATP III CLASSIF ICATIONTRIG less than 150 mg/dL NormalTRIG 150-199 mg/dL Borderline highTRIG 200-500 mg/dL High TRIG greater than 500 mg/dL Very highStandard traceable to the Center for Disease Conrtrol and Prevention (CDC) test method. WBC Auto (Bld) [#/Vol]Ordere d By: Becky Guaman on 08-14-2022 WBC (Bld) [#/Vol] 5.6 10*3/uL 3.8-11.6 [facility] XR chest 2V*on 08-13-2022 XR chest 2V* [facility] Main [place] [address] [place] [address] XRay Report Signed Patient: Edwige Patterson MR#: [id number] : 2000 Acct:[id number] Age/Sex: 22 / F ADM Date: 08/13/22 [facility]: [facility] Room: Type: [facility] Attending Dr: Becky Guaman DO Copies to: Becky Guaman DO Ordering Provider: Becky Guaman DO Date of Service: 08/13/22 XR/XR chest 2V*: Cough, unspecified type Plain film chest2 view HISTORY:Productive cough. Wheezing. COMPARISON:None FINDINGS: The cardiac, mediastinal and hilar silhouettes are within normal limits. No acute lung process, pleural effusion or pneumothorax identified. Bony structures are intact. XR/XR chest 2V* IMPRESSION: No acute process. Impression dictated by: Misbah Mast M.D.08/13/2022 3:23 PM Dictation Location: [place] [address] Transcribed By: [facility] 08/13/221522 Dictated By: Misbah Mast DO 08/13/22 152 Signed By: 08/13/22 152 Normal [facility] XR chest 2V* [facility] Other XR chest 2V* [facility] Main [facility] [employer] Other XR chest 2V* [address] [facility] Other XR chest 2V* HELLEN Rosas [address] [facility] [employer] Other XR chest 2V* XRay Report [place] [employer] Other XR chest 2V* Signed [employer] Other XR chest 2V* Patient: Edwige Patterson MR#: [id number] [facility] Other XR chest 2V* [id number] [employer] Other XR chest 2V* : 2000 Acct:[id number] [employer] Other XR chest 2V* Age/Sex: 22 / F ADM Date: 08/13/22 [employer] Other XR chest 2V* Loc: [facility] Room: Type : [facility] [employer] Other XR chest 2V* Attending Dr: Diane Guaman DO [employer] Other XR chest 2V* Copies to: Becky Guaman DO [employer] Other XR chest 2V* Ordering Provider: Becky Guaman DO [employer] Other XR chest 2V* Date of Service: 08/13/22 [employer] Other XR chest 2V* XR/XR chest 2V*: Cough, unspecified type [employer] Other XR chest 2V* Plain film chest2 view [employer] Other XR chest 2V* HISTORY:Productive cough. Wheezing. [employer] Other XR chest 2V* COMPARISON:None [employer] Other XR chest 2V* FINDINGS: The cardiac, mediastinal and hilar silhouettes are within normal limits. No acute lung [place] [employer] Other XR chest 2V* process, pleural effusion or pneumothorax identified. Bony structures are intact. [employer] Other XR chest 2V* XR/XR chest 2V* [employer] Other XR chest 2V* IMPRESSION: No acute process. [employer] Other XR chest 2V* Impression dictated by: Misbah Mast M.D.08/13/2022 3:23 PM [employer] Other XR chest 2V* Dictation Location: [place] [address] [employer] Other XR chest 2V* Transcribed By: PWS 08/13/22 [facility] [employer] Other XR chest 2V* Dictated By: Misbah Mast DO 08/13/22 [facility] [employer] Other XR chest 2V* Signed By: [employer] Other XR chest 2V* 08/13/[address] [place] [address] [employer] Other Quick Strepon 02-08-2022 S. pyogenes Org specific cx Ql (Throat) Positive [facility] [employer] Other Quick Strep [employer] Other COVID Quick Testingon 2021 Result Negative [employer] Other COVID + FLU Quick Testingon 07-03-2021 SARS-CoV-2 (COVID-19) RNA THA+probe Ql (Unsp spec) Positive [employer] Other COVID + FLU Quick Testing Negative [employer] Other Q - THINPREP(R) TIS AND HPV MRNA E6/E7 RFL HPV 16/18/45on 06-20-2021 CLINICAL INFORMATION: None given Normal [facility] Comment on above: Order Comment: [facility] Testing performed at: [facility], [facility], [address] [place] [address], [address] [place] [address], [phone], White Washer: Ramana Taylor MD Testing performed at: [facility], [address] [place] [address], [phone], White Washer: Mani Anderson [facility] Collection Date/Time: [facility] Results Received Date/Time: [facility] Reported Date/Time: FASTING: UNKNOWN Result Comment: [QBU ] Performed By: #### 9 1414 #### [facility] Default [address] [place] [address] COMMENT SEE NOTE Normal [facility] Comment on above: Order Comment: [facility] Testing performed at: [facility], [facility], [address] [place] [address], [address] [place] [address], [address] [place] [address], White Washer: Ramana Taylor MD Testing performed at: [facility], [address] [place] [address], [address] [place] [address], White Washer: Mani Anderson [facility] Collection Date/Time: [facility] Results Received Date/Time: [facility] Reported Date/Time: FASTING: UNKNOWN Result Comment: EXPL ANATORY NOTE: The Pap is a screening test for cervical cancer. It is not a diagnostic test and is subject to false negative and false positive results. It is most reliable when a satisfactory sample, regularly obtained, is submitted with relevant clinical findings and history, and when the Pap result is evaluated along with historic and current clinical information. [QBU] Performed By: #### 9 1414 #### [facility] Default [address] [place] [address] COMMENT: This Pap test has been evaluated with computer assisted technology. Normal [facility] Comment on above: Order Comment: [facility] Testing performed at: [facility], [facility], [address] [place] [address], [address] [place] [address], [address] [place] [address], White Washer: Ramana Taylor MD Testing performed at: [facility], [facility], [address] [place], [place], [address] [place] [address], White Washer: Mani Anderson [facility] Collection Date/Time: [facility] Results Received Date/Time: [facility] Reported Date/Time: FASTING: UNKNOWN Result Comment: [QBU ] Performed By: #### 9 1414 #### [facility] Default [address] [place] [address] RFID SPECIALIST: SEE NOTE Normal See Note: [facility] Comment on above: Order Comment: [facility] Testing performed at: [employer], [facility], [address] [place] [address], [address] [place] [address], [address] [place] [address], White Washer: Ramana Taylor MD Testing performed at: [facility], [address] [place], [place], [address] [place] [address], White Washer: Mani Anderson [facility] Collection Date/Time: [id number] [facility] Results Received Date/Time: [facility] Reported Date/Time: FASTING: UNKNOWN Result Comment: Refe rence Range: ZL, CT(ASCP) CT screening location: [place] [address]. [QBU] Performed By: #### 9 1414 #### [facility] Default [address] [place] [address] GENERAL CATEGORIZATION: EPITHELIAL CELL ABNORMALITY Abnormal [facility] Comment on above: Order Comment: [facility] Testing performed at: [employer], [facility], [address] [place] [address], [address] [place] [address], [address] [place] [address], White Washer: Ramana Taylor MD Testing performed at: [facility], [facility], [address] [place], [phone], White Washer: Mani Anderson [facility] Collection Date/Time: [id number] [facility] Results Received Date/Time: [facility] Reported Date/Time: FASTING: UNKNOWN Result Comment: [QBU ] Performed By: #### 9 1414 #### [facility] Default [address] [place] [address] HPV mRNA E6/E7 Detected Abnormal Not Detected [facility] Comment on above: Order Comment: [facility] Testing performed at: [facility], [facility], [address] [place] [address], [address] [place] [address], [address] [place] [address], White Washer: Ramana Taylor MD Testing performed at: [facility], [address] [place] [address], [phone], White Washer: Mani Anderson [facility] Collection Date/Time: [facility] Results Received Date/Time: [facility] Reported Date/Time: FASTING: UNKNOWN Result Comment: Meth odology: Environmental Director-Mediated Amplification This assay detects E6/E7 viral messenger RNA (mRNA) from 14 high-risk HPV types (16,18,31,33,35,39,45,51,52,56,58,59,66,68). The analytical performance characteristics of this assay have been determined by [employer]. The modifications have not been cleared or approved by the FDA. This assay has been validated pursuant to the CLIA regulations and is used for clinical purposes. For additional information, please refer to http://education.[employer]/faq/HZI238m4 (This link if provided for information/ educational purposes only.) [O6K] Performed By: #### 9 1414 #### [facility] Default [address] [place] [address] INTERPRETATION/RESULT: Atypical Squamous Cells of Undetermined Significance (ASC-US) Abnormal [facility] Comment on above: Order Comment: [facility] Testing performed at: [facility], [address] [place] [address], [address] [place] [address], [phone], White Washer: Ramana Taylor MD Testing performed at: [facility], [address] [place], [place], [address] [place] [address], White Washer: Mani Anderson [facility] Collection Date/Time: [facility] Results Received Date/Time: [facility] Reported Date/Time: FASTING: UNKNOWN Result Comment: [QBU ] Performed By: #### 9 1414 #### [facility] Default [address] [place] [address] LMP: None given Normal [facility] Comment on above: Order Comment: [facility] Testing performed at: [facility], [facility], [address] [place] [address], [address] [place] [address], [address] [place] [address], White Washer: Ramana Taylor MD Testing performed at: [employer], [facility], [address] [place] [address], [address] [place] [address], White Washer: Mani Anderson [facility] Collection Date/Time: [facility] Results Received Date/Time: [facility] Reported Date/Time: FASTING: UNKNOWN Result Comment: [QBU ] Performed By: #### 9 1414 #### [facility] Default [address] [place] [address] PATHOLOGIST: SEE NOTE Normal [facility] Photograph [facility] Comment on above: Order Comment: [facility] Testing performed at: [facility], [address] [place] [address], [address] [place] [address], [address] [place] [address], White Washer: Ramana Taylor MD Testing performed at: [employer], [facility], [address] [place], [place], [address] [place] [address], White Washer: Mani Anderson [facility] Collection Date/Time: [id number] [facility] Results Received Date/Time: [facility] Reported Date/Time: FASTING: UNKNOWN Result Comment: Vance Anderson MD, PhD, M.B.A. Board Certified in Anatomic and Clinical Pathology Board Certified in Cytopathology (electronic signature) For questions regarding this report call Anatomic Pathology at [phone] [QBU] Performed By: #### 9 1414 #### [facility] Default [address] [place] [address] PREV. BX: None given Normal [facility] Comment on above: Order Comment: [facility] Testing performed at: [facility], [facility], [address] [place] [address], [address] [place] [address], [address] [place] [address], White Washer: Ramana Taylor MD Testing performed at: [facility], [address] [place], [place], [address] [place] [address], White Washer: Mani Anderson [facility] Collection Date/Time: [id number] [facility] Results Received Date/Time: [facility] Reported Date/Time: FASTING: UNKNOWN Result Comment: [QBU ] Performed By: #### 9 1414 #### [facility] Default [address] [place] [address] PREV. PAP: None given Normal [facility] Comment on above: Order Comment: [facility] Testing performed at: [facility], [address] [place] [address], [address] [place] [address], [address] [place] [address], White Washer: Ramana Taylor MD Testing performed at: [facility], [address] [place] [address], [address] [place] [address], White Washer: Mani Anderson [facility] Collection Date/Time: [id number] [facility] Results Received Date/Time: [facility] Reported Date/Time: FASTING: UNKNOWN Result Comment: [QBU ] Performed By: #### 9 1414 #### [facility] Default [address] [place] [id number] SOURCE: None given Normal [facility] Comment on above: Order Comment: [facility] Testing performed at: [facility], [address] [place] [address], [address] [place] [address], [address] [place] [address], White Washer: Ramana Taylor MD Testing performed at: [facility], [facility], [address] [place], [place], [address] [place] [address], White Washer: Mani Anderson [facility] Collection Date/Time: [id number] [facility] Results Received Date/Time: [facility] Reported Date/Time: FASTING: UNKNOWN Result Comment: [QBU ] Performed By: #### 9 1414 #### [facility] Default [address] [place] [address] STATEMENT OF ADEQUACY: SEE NOTE Normal [facility] Comment on above: Order Comment: [facility] Testing performed at: [facility], [facility], [address] [facility], 4 [facility] [place], [address], White Washer: Ramana Taylor MD Testing performed at: Q, [facility], [address] [place] [address], [id number], White Washer: Mani Anderson [facility] Collection Date/Time: [id number] [facility] Results Received Date/Time: [facility] Reported Date/Time: FASTING: UNKNOWN Result Comment: Sati sfactory for evaluation. Endocervical/transformation zone component present. [QBU] Performed By: #### 9 1414 #### [facility] [address] [place] [address] XR Finger Lefton 06-20-2021 XR Finger Left FINDINGS: PIP soft tissue swelling. Minimally distracted volar plate fracture, middle phalangeal base. Minimal arthritis. IMPRESSION: Minimally distracted 4th PIP joint volar plate fracture Report reported and signed by Hubert Lewis on 06/20/2021 1443 Normal [facility] PREG HCG QUALon 05-19-2020 , QUAL Negative Normal NEGATIVE [facility] Comment on above: Performed By: #### P REG #### [facility] [address] [place], [place] [address] Liam Ayala COVID-19 PCRon 05-14-2020 SARS-CoV-2 (COVID-19) RNA THA+probe Ql (Unsp spec) Not detected Normal Not Detected [facility] Comment on above: Result Comment: This nucleic acid amplification test was developed and its performance characteristics determined by [employer]. Nucleic acid amplification tests include PCR and TMA. This test has not been FDA cleared or approved. This test has been authorized by FDA under an Emergency Use Authorization (EUA). This test is only authorized for the duration of time the declaration that circumstances exist justifying the authorization of the emergency use of in vitro diagnostic tests for detection of SARS-CoV-2 virus and/or diagnosis of COVID-19 infection under section 564(b)(1) of the Act, 21 U.S.C. 360bbb-3(b) (1), unless the authorization is terminated or revoked sooner. When diagnostic testing is negative, the possibility of a false negative result should be considered in the context of a patient's recent exposures and the presence of clinical signs and symptoms consistent with COVID-19. An individual without symptoms of COVID-19 and who is not shedding SARS-CoV-2 virus would expect to have a negative (not detected) result in this assay. Performed By: #### C VDSTAT, CVDPCR #### [facility] [address] [place], [place] [address] Liam Ayala PRIORITY COVID PROCESSINGon 05-14-2020 Comment Comment Normal [facility] Comment on above: Result Comment: Rece ived Performed By: #### C VDSTAT, CVDPCR #### [facility] [address] [place], [place] [address] Liam Ayala Vital Signs Date Time Vital Sign Value Performing Clinician Facility 12-03-2024 14:00-0400 Heart rate 90 /min Ness Getable KAPOK MACHINE OPERATOR Work Phone: [facility] 12-03-2024 13:44-0400 Body height 167.6 cm Ness Gecko KAPOK MACHINE OPERATOR Work Phone: [facility] 12-03-2024 13:44-0400 Body mass index (BMI) [Ratio] 39.38 kg/m2 Ness Getables KAPOK MACHINE OPERATOR Work Phone: [facility] 12-03-2024 13:44-0400 Body weight 110.68 kg Ness Gecko KAPOK MACHINE OPERATOR Work Phone: [facility] 12-03-2024 13:44-0400 Diastolic blood pressure 82 mm[Hg] Ness Gecko KAPOK MACHINE OPERATOR Work Phone: [facility] 12-03-2024 13:44-0400 Respiratory rate 18 /min Ness Majors KAPOK MACHINE OPERATOR Work Phone: [facility] 12-03-2024 13:44-0400 SaO2% (BldA) [Mass fraction] 97 % Ness Majors KAPOK MACHINE OPERATOR Work Phone: [facility] 12-03-2024 13:44-0400 Systolic blood pressure 134 mm[Hg] Ness Majors KAPOK MACHINE OPERATOR Work Phone: [facility] 11-24-2024 13:12-0400 SaO2% (BldA) [Mass fraction] 94 % Becky Guaman DO [facility] [employer] 11-24-2024 13:00-0400 Body temperature 98.01 [degF] Becky Guaman DO Work Phone[facility] [employer] 11-24-2024 13:00-0400 Diastolic blood pressure 76 mm[Hg] Becky Guaman DO Work Phone[facility] [employer] 11-24-2024 13:00-0400 Heart rate 89 /min Becky Guaman DO Work Phone[facility] [employer] 11-24-2024 13:00-0400 Respiratory rate 16 /min Becky Guaman DO Work Phone[facility] [employer] 11-24-2024 13:00-0400 Systolic blood pressure 117 mm[Hg] Becky Guaman DO Work Phone: [facility] [employer] 08-05-2024 10:19-0500 Body temperature 98.4 [degF] Priyank Gaspar MD [facility] Phone[facility] [employer] 08-05-2024 10:19-0500 Diastolic blood pressure 56 mm[Hg] Priyank Gaspar MD Work Phone[facility] [employer] 08-05-2024 10:19-0500 Heart rate 114 /min Priyank Gaspar MD Work Phone: Identified 08-05-2024 10:19-0500 Respiratory rate 18 /min Priyank Gaspar MD Work Phone: [facility] [employer] 08-05-2024 10:19-0500 SaO2% (BldA) [Mass fraction] 97 % Priyank Gaspar MD Work Phone: [facility] 08-05-2024 10:19-0500 Systolic blood pressure 97 mm[Hg] Priyank Gaspar MD Work Phone: [facility] 07-20-2024 18:12-0500 SaO2% (BldA) [Mass fraction] 97 % Yoli Lal MD Work Phone: [facility] 07-20-2024 15:37-0500 Body height 170.2 cm Yoli Lal MD Work Phone: [facility] 07-20-2024 15:37-0500 Body mass index (BMI) [Ratio] 37.59 kg/m2 Yoli Lal MD Work Phone: [facility] 07-20-2024 15:37-0500 Body temperature 98.29 [degF] Yoli Lal MD Work Phone: [facility] 07-20-2024 15:37-0500 Body weight 108.86 kg Yoli Lal MD Work Phone: [facility] 07-20-2024 15:37-0500 Diastolic blood pressure 76 mm[Hg] Yoli Lal MD Work Phone: [facility] 07-20-2024 15:37-0500 Heart rate 100 /min Yoli Lal MD Work Phone: [facility] 07-20-2024 15:37-0500 Respiratory rate 18 /min Yoli Lal MD Work Phone: [facility] 07-20-2024 15:37-0500 Systolic blood pressure 110 mm[Hg] Yoli Lal MD Work Phone: [facility] 05-24-2024 08:46-0500 Body height 167.6 cm Destinee Britton MD Work Phone: [facility] 05-24-2024 08:46-0500 Body mass index (BMI) [Ratio] 39 kg/m2 Destinee Britton MD Work Phone: [facility] 05-24-2024 08:46-0500 Body weight 109.59 kg Destinee Britton MD Work Phone: [facility] 05-24-2024 08:46-0500 Diastolic blood pressure 74 mm[Hg] Destinee Britton MD Work Phone: [facility] 05-24-2024 08:46-0500 Heart rate 91 /min Destinee Britton MD Work Phone: [facility] 05-24-2024 08:46-0500 Respiratory rate 18 /min Destinee Britton MD Work Phone: [facility] 05-24-2024 08:46-0500 SaO2% (BldA) [Mass fraction] 97 % Destinee Britton MD Work Phone: [facility] 05-24-2024 08:46-0500 Systolic blood pressure 114 mm[Hg] Destinee Britton MD Work Phone: [facility] 05-20-2024 15:22-0500 Body height 167.6 cm Destinee Britton MD Work Phone: [facility] 05-20-2024 15:22-0500 Body mass index (BMI) [Ratio] 39.96 kg/m2 Destinee Britton MD Work Phone: [facility] 05-20-2024 15:22-0500 Body weight 112.31 kg Destinee Britton MD Work Phone: [facility] 05-20-2024 15:22-0500 Diastolic blood pressure 72 mm[Hg] Destinee Britton MD Work Phone: [facility] 05-20-2024 15:22-0500 Heart rate 116 /min Destinee Britton MD Work Phone: [facility] 05-20-2024 15:22-0500 Respiratory rate 18 /min Destinee Britton MD Work Phone: [facility] 05-20-2024 15:22-0500 SaO2% (BldA) [Mass fraction] 99 % Destinee Britton MD Work Phone: [facility] 05-20-2024 15:22-0500 Systolic blood pressure 134 mm[Hg] Destinee Britton MD Work Phone: [facility] 05-10-2024 13:59-0500 Body mass index (BMI) [Ratio] 39.87 kg/m2 Jovita Salas CN Work Phone: [facility] 05-10-2024 13:59-0500 Body weight 112.04 kg Jovita Salas [facility] Work Phone: [facility] 11-11-2023 14:36-0400 Diastolic blood pressure 76 mm[Hg] [facility] 11-11-2023 14:36-0400 Heart rate 92 /min [facility] 11-11-2023 14:36-0400 Respiratory rate 20 /min [facility] 11-11-2023 14:36-0400 Systolic blood pressure 104 mm[Hg] [facility] 10-10-2023 11:51-0400 Body height 170.18 cm [facility] 10-10-2023 11:51-0400 Body mass index (BMI) [Ratio] 38.2 kg/m2 [facility] 10-10-2023 11:51-0400 Body weight 110.67 kg [facility] 10-10-2023 11:51-0400 Diastolic blood pressure 81 mm[Hg] [facility] 10-10-2023 11:51-0400 Heart rate 78 /min [facility] 10-10-2023 11:51-0400 SaO2% (BldA) [Mass fraction] 96 % [facility] 10-10-2023 11:51-0400 Systolic blood pressure 128 mm[Hg] [facility] 07-09-2023 13:00-0500 Body height 170.18 cm Becky Guaman Other [employer] Other 07-09-2023 13:00-0500 Body mass index (BMI) [Ratio] 36.96 kg/m2 Becky Guaman Other [employer] Other 07-09-2023 13:00-0500 Body temperature 97.6 [degF] Becky Guaman Other [employer] Other 07-09-2023 13:00-0500 Body weight 107.05 kg Becky Guaman Other [employer] Other 07-09-2023 13:00-0500 Diastolic blood pressure 69 mm[Hg] Becky Guaman Other [employer] Other 07-09-2023 13:00-0500 Respiratory rate 20 /min Becky Guaman Other [employer] Other 07-09-2023 13:00-0500 SaO2% (BldA) [Mass fraction] 97 % Becky Guaman Other [employer] Other 07-09-2023 13:00-0500 Systolic blood pressure 109 mm[Hg] Becky Guaman Other [employer] Other 12-09-2022 11:05-0400 Body height 170.18 cm Lexy Kraft Other [employer] Other 12-09-2022 11:05-0400 Body mass index (BMI) [Ratio] 38.52 kg/m2 Lexy Kraft Other [employer] Other 12-09-2022 11:05-0400 Body temperature 97.8 [degF] Lexy Kraft Other [employer] Other 12-09-2022 11:05-0400 Body weight 111.59 kg Lexy Kraft Other [employer] Other 12-09-2022 11:05-0400 Respiratory rate 18 /min Lexy Kraft Other [employer] Other 12-09-2022 11:05-0400 SaO2% (BldA) [Mass fraction] 98 % Lexy Kraft Other [employer] Other 08-12-2022 16:00-0500 Body height 170.18 cm Becky Hernandezjulia Other [employer] Other 08-12-2022 16:00-0500 Body mass index (BMI) [Ratio] 39.62 kg/m2 Becky Pierrefariba Other [employer] Other 08-12-2022 16:00-0500 Body weight 114.76 kg Becky Pierrefariba Other [employer] Other 08-12-2022 16:00-0500 Diastolic blood pressure 71 mm[Hg] Becky Pierrefariba Other [employer] Other 08-12-2022 16:00-0500 Respiratory rate 16 /min Becky Pierrefariba Other [employer] Other 08-12-2022 16:00-0500 SaO2% (BldA) [Mass fraction] 98 % Becky Guaman Other [employer] Other 08-12-2022 16:00-0500 Systolic blood pressure 107 mm[Hg] Becky Guaman Other [employer] Other 02-08-2022 12:00-0400 Body height 167.64 cm Joselin Wilkins Other [employer] Other 02-06-2022 18:45-0400 Body height 167.64 cm Lexy Abena Other [employer] Other 02-06-2022 18:45-0400 Body mass index (BMI) [Ratio] 37.12 kg/m2 Lexy Abena Other [employer] Other 02-06-2022 18:45-0400 Body temperature 97.3 [degF] Lexy Abena Other [employer] Other 02-06-2022 18:45-0400 Body weight 104.33 kg Lexy Abena Other [employer] Other 02-06-2022 18:45-0400 Respiratory rate 18 /min Lexy Abena Other [employer] Other 02-06-2022 18:45-0400 SaO2% (BldA) [Mass fraction] 97 % Lexy Abena Other [employer] Other Encounters Encounter Date Encounter Type Care Provider Facility Start: 12-03-2024 End: 12-03-2024 Telephone encounter Destinee Britton MD Work Phone: [facility] Start: 12-03-2024 End: 12-03-2024 Office outpatient visit 25 minutes Ness Montez KAPOK MACHINE OPERATOR Work Phone: [facility] Comment on above: Nausea (Primary Dx); Pain of upper abdomen Start: 11-24-2024 End: 11-24-2024 Emergency department patient visit [facility] Comment on above: Acute exacerbation o f chronic low back pain (Primary Dx) Start: 11-24-2024 ambulatory Adam [facility]ueraty:[facility] Start: 11-11-2024 End: 11-11-2024 ambulatory [facility] Start: 10-14-2024 End: 10-14-2024 ambulatory [facility] Start: 09-17-2024 End: 09-17-2024 ambulatory NUBIA Cavazos [facility] Start: 09-16-2024 End: 09-16-2024 ambulatory CHAD [facility] Start: 09-13-2024 End: 09-13-2024 ambulatory Andangieus Rodrigo Menesesitis Facility:[facility] Start: 08-30-2024 End: 08-30-2024 ambulatory Andcirilo Goodwinautkade Menesesitis Facility:[facility] Start: 08-26-2024 End: 08-26-2024 ambulatory CHAD [facility] Start: 08-16-2024 End: 08-16-2024 ambulatory Andangie[facility]utkade [facility] Start: 08-12-2024 End: 08-12-2024 ambulatory CHAD Giordano [facility] Start: 08-10-2024 End: 08-10-2024 Bamboo flowsheet Jovita L Floro CNM Work Phone: [facility] Start: 08-10-2024 End: 08-10-2024 Bamboo flowsheet Jovita L Floro CNM Work Phone: [facility] Start: 08-05-2024 End: 08-05-2024 Emergency department patient visit Priyank Gaspar MD Work Phone: [facility] Comment on above: Acute exacerbation o f chronic low back pain (Primary Dx) Start: 07-20-2024 End: 07-20-2024 Emergency department patient visit Yoli Lal MD Work Phone: [facility] Comment on above: Strain of lumbar reg ion, initial encounter (Primary Dx); Abnormal computed tomography of lumbar spine Start: 07-15-2024 End: 07-15-2024 ambulatory [facility] Start: 06-25-2024 End: 06-25-2024 ambulatory [facility] Start: 06-02-2024 End: 07-16-2024 Refill Destinee Britton MD Work Phone: [facility] Comment on above: Encounter for initia l prescription of contraceptive pills Start: 05-28-2024 End: 05-28-2024 ambulatory [place] [facility] Start: 05-27-2024 End: 05-27-2024 ambulatory [facility] Start: 05-24-2024 End: 05-24-2024 Bamboo flowsheet Destinee Britton MD Work Phone: [facility] Start: 05-24-2024 End: 05-24-2024 Bamboo flowsheet Destinee Britton MD Work Phone: [facility] Start: 05-24-2024 End: 05-24-2024 Office outpatient visit 15 minutes Destinee Britton MD Work Phone: [facility] Comment on above: Candidiasis (Primary Dx); Acute nausea with nonbilious vomiting Start: 05-20-2024 End: 05-20-2024 Office outpatient visit 15 minutes Destinee Britton MD Work Phone: [facility] Comment on above: Candidiasis (Primary Dx) Start: 05-10-2024 End: 05-10-2024 Bamboo flowsheet Jovita Salas CNM Work Phone: [facility] Start: 05-10-2024 End: 05-10-2024 Bamboo flowsheet Jovita Salas CNM Work Phone: [facility] Start: 05-10-2024 End: 05-10-2024 Gynecological examination normal Jovita Salas CNM Work Phone: [facility] Start: 05-10-2024 End: 05-10-2024 Office outpatient visit 15 minutes Jovita Salas CNM Work Phone: [facility] Comment on above: PCOS (polycystic ova melvin syndrome) (Primary Dx); Normal gynecologic examination; Screening for cervical cancer; Other acne; Hirsutism Start: 04-22-2024 End: 04-22-2024 ambulatory [facility] Start: 03-25-2024 End: 03-25-2024 ambulatory CHAD [facility] Start: 02-26-2024 End: 02-26-2024 ambulatory [facility] Start: 01-23-2024 End: 01-23-2024 ambulatory [facility] Start: 12-26-2023 End: 12-26-2023 ambulatory NUBIA Cavazos [facility] Start: 11-28-2023 End: 11-28-2023 ambulatory [facility] Start: 11-11-2023 End: 11-11-2023 ambulatory [facility] Work Phone: Start: 11-11-2023 End: 11-11-2023 Patient encounter procedure [facility] Work Phone: Start: 10-10-2023 End: 10-10-2023 ambulatory [facility] Work Phone: Start: 10-10-2023 End: 10-10-2023 Patient encounter procedure [facility] Work Phone: Start: 07-09-2023 End: 07-09-2023 ambulatory Becky Guaman Other [employer] Other Start: 07-09-2023 Office outpatient vi sit 25 minutes Becky Guaman [facility] Start: 12-11-2022 End: 12-11-2022 ambulatory Becky Guaman Other [employer] Other Start: 12-11-2022 Telephone encounter Becky Romero i [facility] [place] Start: 12-09-2022 Office outpatient vi sit 15 minutes Lexy Kraft [facility] Start: 12-09-2022 End: 12-09-2022 ambulatory PHYSICIAN NO [facility] [employer] Other Start: 12-09-2022 End: 12-09-2022 Patient encounter procedure PHYSICIAN NO [facility] Work Phone: Start: 09-27-2022 End: 09-27-2022 ambulatory Becky Guaman Other [employer] Other Start: 09-27-2022 Telephone encounter Becky Romero i [facility] Start: 08-14-2022 End: 08-14-2022 ambulatory Becky Guaman Facility:[facility] Start: 08-14-2022 End: 08-14-2022 ambulatory PHYSICIAN NO [facility] Work Phone: Start: 08-14-2022 End: 08-14-2022 Patient encounter procedure PHYSICIAN NO [facility] [place] Work Phone: Start: 08-13-2022 End: 08-13-2022 ambulatory Becky Guaman Facility:[facility] Start: 08-13-2022 End: 08-13-2022 Patient encounter procedure PHYSICIAN NO [facility] [place] Start: 08-13-2022 End: 08-13-2022 ambulatory PHYSICIAN NO [facility] Work Phone: Start: 08-13-2022 Telephone encounter Becky Romero i [facility] Start: 08-12-2022 End: 08-12-2022 ambulatory Becky Pierrearvinyumiko Other [employer] Other Start: 08-12-2022 Encounter for genera l adult medical examination without abnormal findings Becky Rowena [facility] Start: 08-12-2022 Periodic preventive med est patient 18-39 yrs Becky Rowena [facility] Start: 05-20-2022 End: 05-20-2022 ambulatory Becky Rowena Other [employer] Other Start: 05-20-2022 Telephone encounter Becky Pierrearvin yumiko [facility] Start: 02-08-2022 End: 02-08-2022 ambulatory Becky Rowena Other [employer] Other Start: 02-08-2022 Office outpatient vi sit 15 minutes Joselin Wilkins [facility] Start: 02-08-2022 Telephone encounter Becky Pierrearvin yumiko [facility] Start: 02-06-2022 End: 02-06-2022 ambulatory Lexy Kraft Other [employer] Other Start: 02-06-2022 Office outpatient vi sit 15 minutes Lexy Kraft [facility] Start: 07-03-2021 End: 07-03-2021 ambulatory Becky Guaman Other [employer] Other Start: 07-03-2021 Office outpatient vi sit 15 minutes Becky Guaman [facility] Start: 05-19-2020 End: 05-19-[address] ROGE THACKER Facility:[facility] Start: 05-16-2020 Encounter for other preprocedural examination SUYAPA [facility] Start: 05-13-2020 End: 05-14-2020 ambulatory SUYAPA [facility] Facility:[facility] Start: 05-11-2020 End: 05-12-2020 ambulatory SUYAPA [facility] Facility:[facility] Start: 05-11-2020 End: 05-12-2020 Encounter for other preprocedural examination SUYAPA [facility] Facility:[facility] Start: 03-23-2020 End: 03-24-[address] DESTINEE BRITTON Facility:[facility] Start: 02-29-2020 End: 03-01-2020 ambulatory SUYAPA [facility] Facility:[facility] Start: 03-30-2019 End: 03-30-2019 Patient encounter procedure Radha Aguilera [facility] Procedures Date Procedure Procedure Detail Performing Clinician Start: 12-03-2024 Urnls dip stick/tabl et rgnt non-auto w/o micrscp Ness Montez KAPOK MACHINE OPERATOR Work Phone: Start: 10-14-2024 Follow-up visit Follow-up CHAD Pasquale [facility] Start: 07-20-2024 Ct lumbar spine w/o contrast material Yoli Lal MD Work Phone: Start: 07-20-2024 Urinalysis microscop ic only Yoli Lal MD Work Phone: Start: 07-20-2024 End: 07-20-2024 Urnls dip stick/tablet rgnt auto w/o microscopy Yoli Lal MD Work Phone: Start: 12-09-2022 Plain X-ray of left hand PHYSICIAN NO [facility] Start: 12-09-2022 Plain X-ray of left wrist PHYSICIAN [facility] Start: 08-13-2022 Plain chest X-ray PHYSI BALJIT [facility] Start: 03-30-2019 X-ray of left ankle Donte linda Aguilera Plan of Treatment Date Care Activity Detail Author Start: 02-08-2025 End: 02-08-2025 Patient encounter procedure 02/08/2025 4:00 PM EDT Office Visit [facility] [address] [place] [id number] Jovita Salsa CNM [address] [place] [address] [facility] Start: 12-03-2024 End: 12-03-2025 Bacteria identified in Urine by Culture Urine culture (clean catch) Microbiology Routine Nausea Pain of upper abdomen Expected: 12/03/2024 (Approximate), Expires: 12/03/2025 [facility] Comment on above: Expected: 12/03/2024 (Approximate), Expires: 12/03/2025 Start: 12-03-2024 End: 12-03-2025 CBC W Auto Differential panel - Blood CBC and differential Lab Routine Nausea Pain of upper abdomen Expected: 12/03/2024 (Approximate), Expires: 12/03/2025 [facility] Comment on above: Expected: 12/03/2024 (Approximate), Expires: 12/03/2025 Start: 12-03-2024 End: 12-03-2025 Comprehensive metabolic 2000 panel - Serum or Plasma Comprehensive metabolic panel Lab Routine Nausea Pain of upper abdomen Expected: 12/03/2024 (Approximate), Expires: 12/03/2025 [facility] Comment on above: Expected: 12/03/2024 (Approximate), Expires: 12/03/2025 Start: 12-03-2024 End: 12-03-2025 Urinalysis complete panel - Urine Urinalysis with reflex microscopic (clean catch) Lab Routine Nausea Pain of upper abdomen Expected: 12/03/2024 (Approximate), Expires: 12/03/2025 [facility] Comment on above: Expected: 12/03/2024 (Approximate), Expires: 12/03/2025 Start: 12-03-2024 End: 12-03-2025 XR Abdomen Single view [facility] Work Phone: Comment on above: Expected: 12/03/2024 , Expires: 12/03/2025 Start: 12-03-2024 End: 12-03-2024 Patient encounter procedure 12/03/2024 1:30 PM EDT Office Visit [facility] [address] [place] [address] Ness Montez NP [address] [place] [address] [facility] Start: 08-10-2024 End: 08-10-2024 Patient encounter procedure [facility] Comment on above: Arrived Start: 05-10-2024 End: 05-10-2025 Insulin, fasting Insulin, fasting Lab Routine Normal gynecologic examination Screening for cervical cancer PCOS (polycystic ovarian syndrome) Expected: 05/10/2024 (Approximate), Expires: 05/10/2025 [facility] Comment on above: Expected: 05/10/2024 (Approximate), Expires: 05/10/2025 Start: 05-10-2024 End: 05-10-2024 Patient encounter procedure 05/10/2024 2:00 PM EST Office Visit [facility] [address] [place] [address] Jovita Salas CNM [address] [place], [place] [id number] Arrived [facility] Comment on above: Arrived Start: 05-10-2024 End: 05-10-2025 THINPREP IMAGING PAP AND HPV DNA REFLEX HPV 16,18 THINPREP IMAGING PAP AND HPV DNA REFLEX HPV 16,18 Pathology and Cytology Routine Screening for cervical cancer Expected: 05/10/2024 (Approximate), Expires: 05/10/2025 [facility] Work Phone: Comment on above: Expected: 05/10/2024 (Approximate), Expires: 05/10/2025 Start: 03-07-2024 Influenza vaccination Influenza Vacc ine (#1) [facility] Start: 05-19-2023 DTaP/Tdap/Td vaccine (7 - Td or Tdap) DTaP/Tdap/Td vaccine (7 - Td or Tdap) [facility] Start: 08-14-2022 [facility] Start: 2021 Screening for malign ant neoplasm of cervix Pap smear [facility] Start: 2018 Hepatitis C screening Hepatitis C sc reen [facility] Start: 2016 Screening for Chlamy rafael trachomatis Chlamydia/GC screen [facility] Start: 2015 HIV screening HIV screen [facility] Start: 2015 HPV vaccine (1 - 3-d ose series) HPV vaccine (1 - 3-dose series) [facility] Start: 2012 Depression Screen Depression Screen [facility] CBC panel - Blood by Automated count CBC Lab Routine PCOS (polycystic ovarian syndrome) Ordered: 05/10/2024 [facility] Comment on above: Ordered: 05/10/2024 Glucose measurement estimated from glycated hemoglobin [facility] Hemoglobin A1c/Hemoglobin.total in Blood [facility] Hemoglobin A1c/Hemoglobin.total in Blood Hemoglobin A1c Lab Routine PCOS (polycystic ovarian syndrome) Ordered: 05/10/2024 [facility] Comment on above: Ordered: 05/10/2024 Immunizations Immunization Date Immunization Notes Care Provider Fa [facility] 04-29-2024 SARS-COV-2 (COVID-19 ) vaccine, mRNA, spike protein, LNP, PF, anuj-sucrose, 30 mcg/0.3 mL Destinee Britton MD Work Phone: [facility] 04-29-2024 Seasonal, trivalent, recombinant, injectable influenza vaccine, preservative free Destinee Britton MD Work Phone: [facility] 07-10-2019 Influenza, injectabl e, Madin Bhavana Canine Kidney, preservative free, quadrivalent Destinee Britton MD Work Phone: [facility] 07-10-2019 influenza, seasonal, injectable Becky Hernandezjulia Other [facility] 07-10-2019 influenza virus vacc ine, unspecified formulation Jovita Salas CNM Work Phone: [facility] 07-17-2018 Influenza, injectabl e, Madin [place] Canine Kidney, preservative free, quadrivalent Destinee Britton MD Work Phone: [facility] 03-02-2018 meningococcal polysaccharide (groups A, C, Y and W-135) diphtheria toxoid conjugate vaccine (MCV4P) Becky Guaman Other [facility] 05-19-2013 meningococcal polysaccharide (groups A, C, Y and W-135) diphtheria toxoid conjugate vaccine (MCV4P) Destinee Britton MD Work Phone: [facility] 05-19-2013 tetanus toxoid, redu latrice diphtheria toxoid, and acellular pertussis vaccine, adsorbed Destinee Britton MD Work Phone: [facility] 05-19-2013 varicella virus vaccine Destinee Britton MD Work Phone: [facility] 04-03-2006 diphtheria, tetanus toxoids and acellular pertussis vaccine, unspecified formulation Destinee Britton MD Work Phone: [facility] 04-03-2006 hepatitis B vaccine, pediatric or pediatric/adolescent dosage Destinee Britton MD Work Phone: [facility] 04-03-2006 measles, mumps and rubella virus vaccine Destinee Britton MD Work Phone: [facility] 04-03-2006 poliovirus vaccine, unspecified formulation Destinee Britton MD Work Phone: [facility] 04-03-2006 varicella virus vaccine Destinee Britton MD Work Phone: [facility] 03-03-2006 DTaP-hepatitis B and poliovirus vaccine Destinee Britton MD Work Phone: [facility] 03-03-2006 measles, mumps and rubella virus vaccine Destinee Britton MD Work Phone: [facility] 12-23-2001 measles, mumps and rubella virus vaccine Destinee Britton MD Work Phone: [facility] 09-17-2001 diphtheria, tetanus toxoids and acellular pertussis vaccine, unspecified formulation Destinee Britton MD Work Phone: [facility] 09-17-2001 haemophilus influenz ae type b vaccine, conjugate unspecified formulation Destinee Britton MD Work Phone: [facility] 2000 diphtheria, tetanus toxoids and acellular pertussis vaccine, unspecified formulation Destinee Britton MD Work Phone: [facility] 2000 haemophilus influenz ae type b vaccine, conjugate unspecified formulation Destinee Britton MD Work Phone: [facility] 2000 hepatitis B vaccine, pediatric or pediatric/adolescent dosage Destinee Britton MD Work Phone: [facility] 2000 poliovirus vaccine, unspecified formulation Destinee Britton MD Work Phone: [facility] 2000 haemophilus influenz ae type b vaccine, conjugate unspecified formulation Destinee Britton MD Work Phone: [facility] 2000 diphtheria, tetanus toxoids and acellular pertussis vaccine, unspecified formulation Destinee Britton MD Work Phone: [facility] 2000 poliovirus vaccine, unspecified formulation Destinee Britton MD Work Phone: [facility] 2000 diphtheria, tetanus toxoids and acellular pertussis vaccine, unspecified formulation Destinee Britton MD Work Phone: [facility] 2000 haemophilus influenz ae type b vaccine, conjugate unspecified formulation Destinee Britton MD Work Phone: [facility] 2000 hepatitis B vaccine, pediatric or pediatric/adolescent dosage Destinee Britton MD Work Phone: [facility] 2000 poliovirus vaccine, unspecified formulation Destinee Britton MD Work Phone: [facility] 2000 hepatitis B vaccine, pediatric or pediatric/adolescent dosage Destinee Britton MD Work Phone: [facility] Payers Date Payer Category Payer Unknown 2024 Unknown [id number] 2022 Self-pay [id number] 2022 [employer] Blue Shield [id number] 15 2020 [employer] Blue Shield [id number] 2000 Unknown [id number] 2.16.84 0.1.107041.3.579.2.593 2000 Unknown [id number] 2.16.84 0.1.869920.3.579.2.593 2000 Unknown [id number] 2.16.84 0.1.138475.3.579.2.593 2000 Unknown [id number] 2.16.84 0.1.137333.3.579.2.593 2000 Unknown [id number] 2.16.84 0.1.603692.3.579.2.593 2000 Unknown [id number] 2.16. 840.1.552593.3.579.2.1286 2000 Unknown [id number] 2.16. 840.1.279433.3.579.2.1286 2000 Unknown [id number] 2.16. 840.1.121434.3.579.2.1286 2000 Unknown [id number] 2.16. 840.1.568445.3.579.2.1286 2000 Unknown [id number] 2.16. 840.1.868956.3.579.2.1286 2000 Unknown [id number] 2.16. 840.1.596268.3.579.2.1286 2000 Unknown [id number] 2.16. 840.1.627661.3.579.2.128 2000 Unknown [id number] 2.16.8 40.1.098896.3.579.2.1286 2000 Unknown [id number] 2.16.8 40.1.829448.3.579.2.1285 2000 Unknown [id number] 2.16.8 40.1.267355.3.579.2.1286 2000 Unknown [id number] 2.16.8 40.1.242190.3.579.2.1285 2000 Unknown [id number] 2.16.8 40.1.149541.3.579.2.1285 2000 Unknown [id number] 2.16.8 40.1.692366.3.579.2.1285 2000 Unknown [id number] 2.16.8 40.1.080601.3.579.2.1285 2000 Unknown [id number] 2.16.8 40.1.575762.3.579.2.1285 2000 Unknown [id number] 2.16.8 40.1.064445.3.579.2.1285 2000 Unknown [id number] 2.16.8 40.1.897924.3.579.2.1285 2000 Unknown [id number] 2.16. 840.1.860320.3.579.2.196 2000 Unknown [id number] 2.16. 840.1.837514.3.579.2.196 2000 Unknown [id number] 2.16. 840.1.013861.3.579.2.196 2000 Unknown [id number] 2.16. 840.1.836963.3.579.2.196 2000 Unknown [id number] 2.16.8 40.1.153828.3.579.2.173 2000 Unknown [id number] 2.16.8 40.1.102511.3.579.2.173 2000 Unknown [id number] 2.16.8 40.1.920398.3.579.2.173 1959 Unknown [id number] 2.16.8 40.1.405542.3.579.2.531 Unknown [id number] 2.16.8 40.1.385739.3.579.2.531 Unknown [id number] 2.16.8 40.1.950383.3.579.2.531 Social History Date Type Detail Facility Tobacco smoking stat us NMIS Unknown if ever smoked [facility] Start: 2000 Sex Assigned At Female [facility] Start: 12-04-2023 End: 05-20-2024 Sex Assigned At [facility] Start: 10-10-2023 Tobacco smoking status NMIS Unknown if ever smoked [facility] Start: 06-26-2023 End: 05-20-2024 Tobacco smoking status NMIS Never smoked tobacco [facility] Start: 06-26-2023 End: 05-20-2024 Tobacco use and exposure Smokeless tobacco non-user [facility] Start: 12-04-2023 End: 05-10-2024 Alcoholic beverage intake Current drinker of alcohol (finding) [facility] Start: 12-04-2023 End: 05-20-2024 History of Social function [facility] Start: 06-11-2023 Alcohol Comment caffeine: 1-2 cups per day [facility] Start: 06-25-2023 Gender identity Identifies as female gender (finding) [facility] Start: 05-24-2024 End: 12-03-2024 Alcoholic beverage intake Ex-drinker (finding) [facility] How often do you nee d to have someone help you when you read instructions, pamphlets, or other written material from your doctor or pharmacy [SILS] Never [facility] Do you belong to any clubs or organizations such as voodoo groups, unions, fraternal or athletic groups, or school groups? No [facility] Are you now , , , , never or living with a partner? Never [facility] How often to you hav e a drink containing alcohol? Monthly or less [facility] How many standard dr inks containing alcohol do you have on a typical day? 1 or 2 [facility] How often do you hav e 6 or more drinks on 1 occasion? Less than monthly [facility] Do you feel stress - tense, restless, nervous, or anxious, or unable to sleep at night because your mind is troubled all the time - these days [OSQ] To some extent [facility] (I/We) worried whe er (my/our) food would run out before (I/we) got money to buy more. Never true [facility] Start: 05-20-2024 Tobacco Comment Currently Vape everyday [facility] Start: 07-20-2024 Tobacco smoking status NHIS Ex-smoker Identified History of tobacco use Current smoker Identified History of tobacco use Cigarette Smoker [facility] [employer] Start: 2000 Sex assigned at Not on file Identified Start: 08-16-2012 Sex Female (finding) Identified How often do you nee d to have someone help you when you read instructions, pamphlets, or other written material from your doctor or pharmacy [SILS] Never [facility] Goals Date Patient Goal Desired Activity /State Clinical Notes 02-29-2020 to 12-03-2024 Ness Montez NP - 12/03/2024 1:30 PM EDTDischarge InstructionsAttachmentsDischarge InstructionsAttachmentsDischarge InstructionsAttachmentsDestinee Britton MD - 05/24/2024 8:40 AM EST Note Date & Type Note Facility 12-03-2024 History of Present illness Narrative Edwige Patterson is a 24 y.o. female presents with chief complaint of ER Follow-up, Vomiting, and Nausea HPI: History of Present Illness The patient presents for evaluation of nausea, vomiting, and abdominal pain. She experienced a flare-up of her lower back pain last week, which she attributes to a nerve issue. She sought medical attention at the ER on 11/24/2024 but did not receive any treatment or the prescribed lidocaine cream. On 11/28/2024, she began experiencing severe vomiting and diarrhea, prompting another visit to the ER in [place]. A diagnosis of viral gastroenteritis was made following a CT scan with saline and contrast. She was advised that recovery could take several days to a week and was prescribed anti-nausea medication. Despite this, she continues to experience nausea and has been unable to eat since the previous night. Her diet has been limited to plain rice, toast, and water. She also reports persistent upper abdominal pain, which she believes is due to dry heaving. The pain was particularly severe on 11/28/2024 and 11/29/2024, leading her to suspect [...] HPI Flowsheet Row Documentation from 11/30/2024 in [facility]NOTE 3] with [facility] Information ED, Hospital or Ch[facility] Facility Discharge? ED Patient has been contacted within 2 days of being seen in the ED Yes Diagnosis Viral Infection Discharge Date 11/28/24 Discharged To: Home Setting Discharge Hospital [facility] Engagement Call Start Time 1528 Admission Date [...] Wt 244 lb SpO2 97% BMI 39.38 kg/m OB Status Having periods Smoking Status Never BSA 2.27 m Visit Vitals BP 134/82 (BP Location: Left [...] check for constipation or other abnormalities. A urinalysis and culture will be conducted to rule out infection. Blood work will be done to assess kidney and liver function. - She is advised to increase fluid intake and abstain from smoking marijuana. Okbq-[id number] MiraLAX can be used if constipation persists. [...] or other abnormalities. - Advised to use [id number] MiraLAX if constipation persists and to increase fluid intake. - Blood work will be done to assess kidney and liver function. No follow-ups on file. documented in this encounter [facility] 11-24-2024 Hospital Discharge instructions Alicia Dunn APRN - CNP - 11/24/2024 2:21 PM EDT Begin taking gabapentin as directed by pain management. Take steroids as directed until complete. Continue the anti-inflammatory medications and muscle relaxer for pain. Use lidocaine patch topically and apply ice. Rest and follow up with pain management as previously arranged. The following attachments cannot be sent through Care Everywhere.Back Pain (Colombian)documented in this encounter [facility] 08-05-2024 Hospital Discharge instructions Octavio Day II, PA-C - 08/05/2024 11:37 AM EST You will receive a survey in the next couple days regarding your experience in the ED. We are constantly striving to improve our care and welcome your feedback. Thank you very much for your time. The emergency department evaluation is not a complete evaluation, you're always required to followup with another doctor within the next few days to assess how your symptoms are progressing and to ensure that there is no indication for further testing or returning to the hospital. Even with treatment sometimes your condition worsens and you will need to return to the hospital. If you are having pain and it is getting worse you should return to the hospital. If you have any new symptoms that were not addressed at your original visit you should return to the hospital. If you're having difficulty breathing but it is getting worse you should return to the hospital. If you're vomiting and cannot take the medicines that were prescribed you should return to the hospital. If you're having persistent fevers you should return to the hospital. If you have any question of whether or not your symptoms are serious enough or for any other urgent concerns- always return to the hospital for repeat evaluation. The following attachments cannot be sent through Care Everywhere.Back Pain (Colombian)documented in this encounter [facility] 07-20-2024 Hospital Discharge instructions Yoli Lal MD - 07/20/2024 6:55 PM EST I have reviewed your CT results with you and with Dr. Krishnan with your permission Please review your CT findings with Dr. Krishnan You will be provided with Ultram medication which may indeed cause grogginess and also steroid burst You may continue to take your Flexeril as directed if necessary mainly because grogginess The following attachments cannot be sent through Care Everywhere.Strain or Sprain (Colombian)documented in this encounter [facility] 06-02-2024 Telephone encounter Note Pt called and left a vm at 12:41 pm today She said she has been waiting for her BC to be called over to [facility] but they haven't received anything. She asked if that can please be sent over. [facility] 06-02-2024 Miscellaneous Notes Pt called and left a vm at 12:41 pm today She said she has been waiting for her BC to be called over to [place] [facility] but they haven't received anything. She asked if that can please be sent over. documented in this encounter [facility] 05-24-2024 History of Present illness Narrative Images from the original note were not included. Edwige Patterson is a 23 y.o. female presents with chief complaint of Vomiting (Patient presents today for vomiting x 2 day. Patient states that it started Friday night. ) HPI: HPI History of Present Illness The patient presents for evaluation of diarrhea. She began experiencing diarrhea on , which persisted into Friday, causing her to leave work early. On Friday, she felt nauseous, a known side effect of metformin, and vomited three times on Friday morning. Her diet over the weekend was limited to chicken broth, crackers, and water. She also reported feeling feverish and applied a cold rag to her head. She did not take metformin on Friday. She denies any discomfort during urination. She was on diflucan for umbilical infection x 3 days last dose was yesterday. Reports cont with umbilical discharge and odor SUBJECTIVE: MEDICATIONS: Current Outpatient Medications Medication Instructions buPROPion XL (WELLBUTRIN XL) 150 mg, Every morning hydrOXYzine pamoate (VISTARIL) 25 mg, 3 times daily PRN metFORMIN (GLUCOPHAGE) 500 mg, Oral, 2 times daily with meals norgestimate-ethinyl estradiol (Sprintec 28) 0.25-35 MG-MCG tablet 1 tablet, Oral, Daily ALLERGIES: No Known Allergies SURGICAL HISTORY: History [...] 0 REVIEW OF SYMPTOMS: Review of Systems Respiratory: Negative. Cardiovascular: Negative. OBJECTIVE: Visit Vitals BP 114/74 (BP Location: Left arm, Patient Position: Sitting, BP Cuff Size: Large adult) Pulse 91 Resp 18 Ht 5' 6 Wt 241 lb 9.6 oz LMP 05/02/2024 (Exact Date) SpO2 97% BMI 39.00 kg/m OB Status Having periods Smoking Status Never BSA 2.26 m Physical Exam Constitutional: Appearance: Normal appearance. She is normal weight. HENT: Head: Normocephalic and atraumatic. Nose: Nose normal. Mouth/Throat: Mouth: Mucous membranes are moist. Eyes: Pupils: Pupils are equal, round, and reactive to light. Cardiovascular: Rate and Rhythm: Normal rate and regular rhythm. Heart sounds: No murmur heard. Pulmonary: Effort: Pulmonary effort is normal. Breath sounds: Normal breath sounds. No wheezing or rhonchi. Musculoskeletal: General: No swelling. Cervical back: Normal range of motion and neck supple. Right lower leg: No edema. Left lower leg: No edema. Skin: General: Skin is warm and dry. Findings: No rash. Comments: Mild erythema to umbilicus Neurological: Mental Status: She is alert and oriented to person, place, and time. Sensory: No sensory deficit. Gait: Gait normal. Psychiatric: Mood and Affect: Mood normal. Thought Content: Thought content normal. Judgment: Judgment normal. ASSESSMENT AND PLAN: Assessment/Plan Problem List Items Addressed This Visit None Visit Diagnoses Candidiasis - Primary Relevant Medications clotrimazole (Lotrimin) 1 % cream cephalexin (Keflex) 500 MG capsule Acute nausea with nonbilious vomiting Assessment & Plan 1. Diarrhea. The diarrhea/vomitting is likely due to a combination of metformin and Diflucan. The Diflucan will continue to have an effect for another 3 days. She was advised to discontinue metformin for a week, then resume with half a tablet daily. If tolerated, the dosage can be increased to half a tablet twice daily. A healthy diet, avoiding greasy foods, was recommended while on metformin. If symptoms worsen or do not improve, she should contact the clinic. 2. Nausea and vomiting. The nausea and vomiting are likely side effects of diflucan. 3. Yeast infection. The yeast infection in the belly button is still present. An antibiotic and a yeast cream were prescribed for application in the belly button. She was advised to withhold metformin until the completion of the antibiotic course. If the belly button infection worsens or does not improve, she should contact the clinic. documented in this encounter [facility] 05-20-2024 History of Present illness Narrative Images from the original note were not included. Edwige Patterson is a 23 y.o. female presents with chief complaint of Blood in Umbilical Area HPI: HPI History of Present Illness The patient is a 23-year-old female who presents for evaluation of multiple medical concerns. She reports waking up at 4:00 AM today to find dried blood around her belly button, which she cleaned with a tissue. She also experienced a burning sensation in the area while driving. She has a history of yeast infections and urinary tract infections (UTIs) since childhood. She started taking metformin last night and is curious about its effects, as her insulin levels have decreased from 30 to 18. She recalls falling ill last spring, which led to a double ear infection. Despite being on two different antibiotics, she continues to experience issues, including a feeling of pressure in her ears. She has been advised to perform exercises to alleviate this. She reports no changes in her hearing but notes that she can hear herself more clearly. She also mentions that she had several burst eardrums as a child. SOCIAL HISTORY She works at the [employer] office. She is getting her master's degree in behavioral science. SUBJECTIVE: MEDICATIONS: Current Outpatient Medications Medication Instructions buPROPion XL (WELLBUTRIN XL) 150 mg, Every morning hydrOXYzine pamoate (VISTARIL) 25 mg, 3 times daily PRN metFORMIN (GLUCOPHAGE) 500 mg, Oral, 2 times daily with meals norgestimate-ethinyl estradiol (Sprintec 28) 0.25-35 MG-MCG tablet 1 tablet, Oral, Daily ALLERGIES: No Known Allergies SURGICAL HISTORY: History [...] 0 REVIEW OF SYMPTOMS: Review of Systems OBJECTIVE: Visit Vitals BP 134/72 (BP Location: Left arm, Patient Position: Sitting, BP Cuff Size: Large adult) Pulse (!) 116 Resp 18 Ht 5' 6 Wt 247 lb 9.6 oz LMP 05/02/2024 (Exact Date) SpO2 99% BMI 39.96 kg/m OB Status Having periods Smoking Status Never BSA 2.28 m Physical Exam Constitutional: Appearance: Normal appearance. She is normal weight. HENT: Head: Normocephalic and atraumatic. Nose: Nose normal. Mouth/Throat: Mouth: Mucous membranes are moist. Eyes: Pupils: Pupils are equal, round, and reactive to light. Cardiovascular: Rate and Rhythm: Normal rate and regular rhythm. Heart sounds: No murmur heard. Pulmonary: Effort: Pulmonary effort is normal. Breath sounds: Normal breath sounds. No wheezing or rhonchi. Musculoskeletal: General: No swelling. Cervical back: Normal range of motion and neck supple. Right lower leg: No edema. Left lower leg: No edema. Skin: General: Skin is warm and dry. Findings: No rash. Neurological: Mental Status: She is alert and oriented to person, place, and time. Sensory: No sensory deficit. Gait: Gait normal. Psychiatric: Mood and Affect: Mood normal. Thought Content: Thought content normal. Judgment: Judgment normal. ASSESSMENT AND PLAN: Assessment/Plan Problem List Items Addressed This Visit None Visit Diagnoses Candidiasis - Primary Relevant Medications fluconazole (Diflucan) 100 MG tablet Assessment & Plan 1. Yeast infection. She presented with bleeding and a burning sensation around her belly button. Examination revealed a possible yeast infection. A prescription for Diflucan, to be taken once daily for three days, was provided. She was advised against using antibacterial soaps and cautioned against applying alcohol or antibiotic ointments to the affected area. 2. Temporomandibular joint disorder. She reported pressure and slight tenderness near her ear, with no hearing changes. Examination suggested TMJ, possibly due to clenching her jaw at night. She was advised to consult her dentist regarding the use of a bite block during sleep. documented in this encounter [facility] 05-10-2024 History of Present illness Narrative YEARLY HPI: This is a established patient. Chief Complaint Patient presents with Gynecologic Exam Here for annual exam. 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 We did discuss PCOS due to her irregular periods when she's not on the OCPs History: Past Medical History: Diagnosis Date Right ankle sprain History reviewed. No pertinent surgical history. Family History Problem Relation Name Age of Onset Cancer Paternal Grandmother Heart failure Other g-ma Allergies: No Known Allergies Medications: Current Outpatient Medications on File Prior to Visit Medication Sig Dispense Refill buPROPion XL (Wellbutrin XL) 150 MG 24 hr tablet Take 150 mg by mouth in the morning. norgestimate-ethinyl estradiol (Sprintec 28) 0.25-35 MG-MCG tablet Take 1 tablet by mouth Daily 90 tablet 2 [DISCONTINUED] miSOPROStol (Cytotec) 200 MCG tablet Take 1 tablet (200 mcg) by mouth 1 (one) time for 1 dose Take 1 tablet the evening before IUD placement . 1 tablet 0 No current facility-administered medications on file prior to visit. ROS: Review of Systems There were no vitals filed for this visit. Physical exam: Physical Exam Assessment and Plan: Not an annual exam, follow up for abnormal pap, HPV history Patient has irregular periods when not on OCPs, facial acne, obese abdomen. No follow-ups on file. There are no Patient Instructions on file for this visit. Joselin Yip MA, 05/10/2024 2:06 PM documented in this encounter [facility] 07-09-2023 Evaluation note Encounter Date Diagnosis Assessment Notes Jul, Acute cough (ICD-10 - R05.1) Nothing focal on exam. Likely viral. Given instructions for supportive care. Immediate medical attention for change/worsenin g. Call with questions/karly rns. Jul, Nausea and vomiting, unspecified vomiting type (ICD-10 - R11.2) ER documentation, including CT results, UA results, and lab results, reviewed in full. There were essentially no findings on her workup. Given that she started using marijuana regularly around the time of symptom onset, it is reasonable to believe that this is in fact the cause. She stopped using all marijuana products roughly 3 days ago. We will give this more time to settle down and treat the symptoms in the meantime. Immediate medical attention for change/worsenin g. If no improvement in 1-2 weeks, will consider a PPI and GI consultation. [employer] Other 06-05-2023 Evaluation note* Encounter Date Diagnosis Assessment Notes Treatment Notes Treatment Clinical Notes Dec, Left wrist pain (ICD-10 - M25.532) Dec, Sprain of left wrist, initial encounter (ICD-10 - S63.502A) Tomer wrapWrist sprain home care material was printed Drink plenty fluids, get plenty of rest. Wear the wrist splint for comfort and compression. Ice and elevate your wrist 2-3 times a day. Take ibuprofen as needed for pain and swelling. Follow-up with your family physician if no improvement in 5 to 7 days [employer] Other 02-06-2023 Evaluation note* Encounter Date Diagnosis Assessment Notes Treatment Notes Treatment Clinical Notes Aug, Hair loss (ICD-10 - L65.9) Patient admits to this with ROS. Will screen a TSH. Aug, Wellness examination (ICD-10 - Z00.00) Overall, patient doing well, but her weight is certainly a concern. I will send her for screening labs, including thyroid and A1C. Weight loss strategy discussed as detailed below. Aug, BMI 39.0-39.9,adult (ICD-10 - Z68.39) I've given her a detailed, written plan for diet, exercise, and weight loss. I will send her for labs. Recheck in 3-6 months but certainly sooner if she continues to struggle. Aug, Cough, unspecified type (ICD-10 - R05.9) Go for CXR. I will have her on a steroid taper. Consider abx pending CXR results. Aug, Screening for metabolic disorder (ICD-10 - Z13.228) Aug, Screening for cardiovascular condition (ICD-10 - Z13.6) Aug, Screening for deficiency anemia (ICD-10 - Z13.0) [employer] Other 08-05-2022 Evaluation note* Encounter Date Diagnosis Assessment Notes Treatment Notes Treatment Clinical Notes Feb, Sore throat (ICD-10 - J02.9) Feb, Strep pharyngitis (ICD-10 - J02.0) Advised patient that strep test was positive. Take antibiotic as directed, complete entire course even if feeling better. Contagious for 24 hours after starting antibiotic. Discussed good hand hygiene and infection control. New tooth brush and wash linens after 2-3 days of being on antibiotic to prevent reinfection. Supportive care as directed. Push fluids and rest. Eat soft foods and liquids that are easy to swallow. Tylenol/Motrin as needed for fever or discomfort. Use of throat lozenges and warm salt water gargles encouraged. Symptoms should improve in the next 24-48 hours, eval if symptoms have not improved with treatment. Immediate eval if difficultly managing oral secretions, drooling, unilateral neck swelling, hot potato voice, persistent fever, neck pain/stiffness, severe headache, lethargy. Patient verbalizes understanding and is agreeable to treatment plan. [employer] Other 08-03-2022 Evaluation note* Encounter Date Diagnosis Assessment Notes Treatment Notes Treatment Clinical Notes Feb, Sore throat (ICD-10 - J02.9) Feb, Viral pharyngitis (ICD-10 - J02.9) Pharyngitis/tonsil lopharyngitis: adult home care material was printed Drink plenty fluids, get plenty of rest. Take Tylenol or Motrin as needed for aches pains or fevers. Consider drinking warm tea with honey for comfort. Follow-up with your family physician if no improvement in 2 to 3 days. [employer] Other 12-28-2021 Evaluation note* Encounter Date Diagnosis Assessment Notes Treatment Notes Treatment Clinical Notes Jun, Exposure to COVID-19 virus (ICD-10 - Z20.822) Jun, COVID-19 (ICD-10 - U07.1) Patient's rapid test is positive for Covid-19. She is given instructions for quarantine and supportive care. Call immediately for change/worsening or with questions/concerns. [employer] Other 11-13-2020 NotePROCEDURE: XR ANKLE RT MIN 3 VIEWS COMPARISON: 05/19/2020 intraprocedural, 04/02/2020 HISTORY: Postoperative care FINDINGS: BONES:No fracture, acute abnormality, or significant arthropathy. SOFT TISSUES:Post procedural soft tissue swelling, subcutaneous air and lateral surgical elaina EFFUSION:None visible. OTHER: Negative. IMPRESSION: Postprocedural changes Electronically authenticated by: ROGE THACKER Date: 2020-05-19 14:02[facility]11-13-2020 NotePROCEDURE: XR ANKLE RT 2V COMPARISON: 02/29/2020 HISTORY: Pain of right ankle joint FINDINGS: 4 intraprocedural fluoroscopic images. 8 seconds of fluoroscopy Preoperative image #1 and 2, with stress demonstrate asymmetric widening of the lateral tibiotalar joint on the AP projection and widening of the posterior tibiotalar joint on the lateral projection. Postoperative image #3 and 4, with stress demonstrate decrease in joint widening on both the frontal and lateral projections IMPRESSION: Images demonstrating pre procedural tibiotalar joint instability Electronically authenticated by: ROGE THACKER Date: 2020-05-19 14:00[facility]11-01-2020 History general Narrative - Reported* Type Description Date Medical History Chronic back pain Medical History Hx of concussion Medical History acne Medical History chronic depression Surgical History ankle reconstruction- right 2019 [employer] Other 09-17-2020 NotePROCEDURE: XR FOOT RT MIN 3 VIEWS COMPARISON: 02/29/2020 HISTORY: Pain in right foot FINDINGS: BONES:Stable intra-articular transverse fracture base of the fifth metatarsal. No acute fracture or dislocation SOFT TISSUES:Negative. No visible soft tissue swelling. EFFUSION:None visible. OTHER: Negative. IMPRESSION: Stable healing intra-articular transverse fracture base of the fifth metatarsal Electronically authenticated by: ROGE THACKER Date: 2020-03-23 10:22[facility]08-25-2020 NotePROCEDURE: XR ANKLE RT MIN 3 VIEWS, XR FOOT RT MIN 3 VIEWS COMPARISON: 08/27/2015 HISTORY: Pain of right ankle joint FINDINGS: BONES:Transverse intra-articular fracture identified at the base of the fifth metatarsal. Callus formation suggests a subacute fracture. No dislocation. SOFT TISSUES:Negative. No visible soft tissue swelling. EFFUSION:None visible. OTHER: Negative. IMPRESSION: Subacute intra-articular nondisplaced fracture base of the fifth metatarsal Electronically authenticated by: ROGE THACKER Date: 2020-02-29 12:57[facility]08-25-2020 NotePROCEDURE: XR ANKLE RT MIN 3 VIEWS, XR FOOT RT MIN 3 VIEWS COMPARISON: 08/27/2015 HISTORY: Pain of right ankle joint FINDINGS: BONES:Transverse intra-articular fracture identified at the base of the fifth metatarsal. Callus formation suggests a subacute fracture. No dislocation. SOFT TISSUES:Negative. No visible soft tissue swelling. EFFUSION:None visible. OTHER: Negative. IMPRESSION: Subacute intra-articular nondisplaced fracture base of the fifth metatarsal Electronically authenticated by: ROGE THACKER Date: 2020-02-29 12:57[facility] noteNo InformationNomercy hospital [facility] Path.To Other Evaluation noteNo assessment information available [facility] Work Phone: Evaluation note* Diagnosis Onset Date Resolution Status Bilateral acute otitis media resolved [facility] Work Phone: Evaluation note* Diagnosis PCOS (polycystic ovarian syndrome)- Primary Polycystic ovaries Normal gynecologic examination Screening for cervical cancer Screening for malignant neoplasm of the cervix Other acne Hirsutism [facility] Diagnosis Candidiasis- Primary Acute nausea with nonbilious vomiting [facility] Diagnosis Candidiasis- Primary [facility]* Diagnosis Encounter for initial prescription of contraceptive pills [facility] Diagnosis Strain of lumbar region, initial encounter- Primary Abnormal computed tomography of lumbar spine documented in this encounter [facility]* Diagnosis Acute exacerbation of chronic low back pain- Primary [facility]* Diagnosis Acute exacerbation of chronic low back pain- Primary documented in this encounter [facility]* Diagnosis Nausea- Primary Nausea alone Pain of upper abdomen [facility] Narrative - Reported* Type Description Date Medical History Chronic back pain Medical History Hx of concussion Medical History acne [employer] Other History general Narrative - Reported* Type Description Date Medical History Chronic back pain Medical History Hx of concussion Medical History acne Medical History chronic depression [employer] Other Advance Directives Advance Directive Response Recorded Date/ Time Advance Directives No March 1:27pm Advance Directive Response Recorded Date/ Time Advance Directives No March 12:27pm Advance Directive Response Recorded Date/ Time Advance Directives No March 1:27pm Chief Complaint and Reason for Visit Chief Complaint S99.912A Chief Complaint CONTINUING EAR INFEC TION Chief Complaint CONTINUING EAR INFEC TION possible ear infection Reason for Visit Bilateral acute otit is media Assessments No Assessments Information Available Summary Purpose Family History Relationship Condition Age at Onset Recorded Date/T katarzyna Not Specified Diabetes mellitus Unknown sister Hypertension Unknown Additional Source Comments INFORMATION SOURCE (unrecogn ized section and content) DATE CREATED AUTHOR 01/04/2021 [facility] DATE CREATED AUTHOR AUTHOR'S ORGANIZ ATION 06/27/2021 [facility] dical Specialist DATE CREATED AUTHOR AUTHOR'S ORGANIZ ATION 12/16/2022 [facility] DATE CREATED AUTHOR AUTHOR'S ORGANIZ ATION 11/14/2024 [facility] DATE CREATED AUTHOR AUTHOR'S ORGANIZ ATION 12/01/2024 [facility] DATE CREATED AUTHOR AUTHOR'S ORGANIZ ATION 12/01/2024 [facility] REASON FOR VISIT (unrecogniz ed section and content) Reason Comments Gynecologic Exam Reason Comments Vomiting Patient presents tod ay for vomiting x 2 day. Patient states that it started Friday night. Reason Comments Blood in Umbilical Area Reason Comments Back Pain Pt states she slippe d last week but was able to catch self. She has been having right low/mid back pain since. She went to urgent care on 07/13 and was prescribed Flexeril and 600mg Motrin which she last took around 0600. Pt then went to chiropractor yesterday and had xray completed. Patient concerned about continuing pain, she has known herniated disc. Reason Comments Back Pain Right lower back kristen n ongoing since 2016. MRI completed on Friday in [place]. Reason Comments Back Pain Bilateral lower back pain, and patient states it is radiating down the nerves in my legs . Patient has been here 2x now for same issues. Has had CT and MRI done a few months ago along with steroid injections. Patient cannot get into see her PCP for an EMG until January and is here for pain control. Reason Comments ER Follow-up Vomiting Nausea Care Teams (unrecognized sec tion and content) Team Status: Inactive Member Role Status Dates PHYSICIAN NO FAMILY Primary Care Provider Active Becky Guaman DO Attending Provider Active Team Status: Active Member Role Status Dates PHYSICIAN NO FAMILY Primary Care Provider Active Team Status: Inactive Member Role Status Dates PHYSICIAN NO FAMILY Primary Care Provider Active Lexy Kraft NP-C Attending Provider Active Team Status: Active Member Role Status Dates Becky Guaman DO Primary Care Provider Active Team Status: Inactive Member Role Status Dates Grisel Andres APRN Attending Provider Active Start: October 10, 2023 End: October 10, 2023 Becky Guaman DO Primary Care Provider Active Start: October 10, 2023 End: October 10, 2023 Team Status: Inactive Member Role Status Dates Becky Guaman DO Primary Care Prov valerie, Attending Provider Active Start: November 11, 2023 End: November 11, 2023 Genetic Supervisor Relationship Specialty Start Date End Date Destinee Britton MD [address] [place] [address] PCP - General Family Medicine 11/12/22 Genetic Supervisor Relationship Specialty Start Date End Date Destinee Britton MD [address] [place] [address] PCP - General Family Medicine 11/12/22 Genetic Supervisor Relationship Specialty Start Date End Date Destinee Britton MD [address] [facility] [place] [address] PCP - General Family Medicine 11/12/22 Genetic Supervisor Relationship Specialty Start Date End Date Destinee Britton MD [address] [facility] [place] [address] PCP - General Family Medicine 11/12/22 Genetic Supervisor Relationship Specialty Start Date End Date Destinee Britton MD [address] [place] [address] PCP - General Family Medicine 11/12/22 Genetic Supervisor Relationship Specialty Start Date End Date Becky Guaman DO NPI: [address] [place] [address];[address] [place] [id number] PCP - General Family Medicine 07/20/24 Genetic Supervisor Relationship Specialty Start Date End Date Becky Guaman DO NPI: [address] [place] [address];[address] [place] [id number] PCP - General Family Medicine 07/20/24 Genetic Supervisor Relationship Specialty Start Date End Date Becky Guaman DO NPI: [address] [place] [address];[address] [place] [id number] PCP - General Family Medicine 07/20/24 Genetic Supervisor Relationship Specialty Start Date End Date Destinee Britton MD [address] [facility] [place] [address] PCP - General Family Medicine 11/12/22 Genetic Supervisor Relationship Specialty Start Date End Date Destinee Britton MD [address] [facility] [place] [address] PCP - General Family Medicine 11/12/22 Goals (unrecognized section and content) Goals may be documented in a n alternate section Ordered Prescriptions (unrec ognized section and content) Prescription Sig Dispensed Refills Start Date End Da te traMADol (ULTRAM) 50 MG tabletIndications:Strain of lumbar region, initial encounter Take 1 tablet by mouth every 6 hours as needed for Pain for up to 3 days. Intended supply: 3 days. Take lowest dose possible to manage pain Max Daily Amount: 200 mg 12 tablet 07/20/2024 07/23/2024 cyclobenzaprine (FLEXERIL) 10 MG tablet Take 1 tablet by mouth 3 times daily as needed for Muscle spasms 21 tablet 07/20/2024 07/30/2024 predniSONE (DELTASONE) 50 MG tablet Take 1 tablet by mouth daily for 5 days 5 tablet 07/20/2024 07/25/2024 Prescription Sig Dispensed Refills Start Date End Da te methocarbamol (ROBAXIN) 500 MG tablet Take 2 tablets by mouth 4 times daily for 10 days 80 tablet 08/05/2024 08/15/2024 gabapentin (NEURONTIN) 100 MG capsule Take 3 capsules by mouth 3 times daily for 3 days. Intended supply: 30 days 27 capsule 08/05/2024 08/08/2024 Prescription Sig Dispense Quantity Refills Last Filled Start Date End Date lidocaine (LIDODERM) 5 % Place 1 patch onto the skin daily for 10 days 12 hours on, 12 hours off. 10 patch 11/24/2024 5 methylPREDNISolone (MEDROL, QUIN,) 4 MG tablet Follow package insructions. 1 kit 11/24/2024 5 Scheduled Active and Recently Administ ered Medications (unrecognized section and content) Medication Order 07/18/2024 07/19/2024 07/20/2024 cyclobenzaprine (FLEXERIL) tablet 10 mg (COMPLETED) 10 mg, Oral, ONCE, 1 dose, On Fri07/20/24 at 1615 1615 (Given - Provid er: Ruth Cobos RN) dexAMETHasone (DECADRON) injection 10 mg (COMPLETED) 10 mg, IntraVENous, ONCE, On Fri07/20/24 at 1615, For 1 dose 1615 (Given - Provid er: Ruth Cobos RN) ketorolac (TORADOL) injection 15 mg (COMPLETED) 15 mg, IntraVENous, ONCE, 1 dose, On Fri07/20/24 at 1615, Do not administer for more than 5 days. 1615 (Given - Provid er: Ruth Cobos RN) morphine (PF) injection 2 mg (COMPLETED) 2 mg, IntraVENous, ONCE, 1 dose, On Fri07/20/24 at 1800, If oral and IV narcotics ordered, use oral first and only use IV if oral is ineffective or cannot take oral. Do Not give oral and IV within 1 hour of each other unless specifically ordered. 1805 (Given - Provid er: Ruth Cobos RN) ondansetron (ZOFRAN) injection 4 mg (COMPLETED) 4 mg, IntraVENous, ONCE, 1 dose, On Fri07/20/24 at 1800 1805 (Given - Provid er: Ruth Cobos RN) Scheduled Medication Order 08/03/2024 08/04/2024 08/05/2024 ketorolac (TORADOL) injection 30 mg (COMPLETED) 30 mg, IntraMUSCular, ONCE, 1 dose, On Victorina 08/05/24 at 1145, Do not administer for more than 5 days. 1150 (Given - Provid er: Jacinda Nielson RN) methocarbamol (ROBAXIN) tablet 1,000 mg (COMPLETED) 1,000 mg, Oral, Once, 1 dose, On Victorina 08/05/24 at 1145 1150 (Given - Provid er: Jacinda Nielson RN) FOR RECORDS PERTAINING TO PATIENTS WHO ARE OR HAVE BEEN ENROLLED IN A CHEMICAL DEPENDENCY/SUBSTANCEABUSE PROGRAM, SOME INFORMATION MAY BE OMITTED. This clinical summary was aggregated from multiple sources. Caution should be exercised in using it in the provision of clinical care. This summary normalizes information from multiple sources, and as a consequence, information in this document may materially change the coding, format and clinical context of patient data. In addition, data may be omitted in some cases. CLINICAL DECISIONS SHOULD BE BASED ON THE PRIMARY CLINICAL RECORDS. [facility]. provides no warranty or guarantee of the accuracy or completeness of information in this document.
--- NOTE | 2024-12-16 08:47 | PM.CN ---
Consult Note: HPI Data of Consult Patient: known to practice within the last 3 years Requesting Physician: Jazmin Yanez NP Primary Care Provider: Vidal Romeo, DO Consult Narrative Reason for consult: f/u Narrative: Edwige tellez pleasant 24 year old female presents for evaluation of chronic low back pain secondary to bulging disc, lumbar ddd, and lumbar spondylosis. continues to utilize heat, ice, baclofen, gabapentin. cannot take tylenol due to elevated liver enzymes. pain today 6/10 pulling/stabbing increased pain standing, walking, sitting, with activity, and sleep. increases to 10/10. finds benefit to PRN chiropractor care. since last visit she has had increased BLE pain with increased weakness and numbness/tingling to RLE. cc:: CC: Jazmin Yanez NP Review of Systems ROS Status of ROS 10 or more systems reviewed and unremarkable except as noted in history and below [facility] Medical History (Updated 11/28/24 @ 17:36 by Ras Singh MD) Low back pain ?M54.50 - Low back pain, unspecified (ICD-10) Depression ?F32.A - Depression, unspecified (ICD-10) PCOS (polycystic ovarian syndrome) ?E28.2 - Polycystic ovarian syndrome (ICD-10) Surgical History History of ankle surgery ?Z98.890 - Other specified postprocedural states (ICD-10) Social History Little interest or pleasure in doing things: not at all Feeling down, depressed, or hopeless: not at all Meds Home Medications and Allergies Home Medications ?Medication ?Instructions ?Recorded ?Confirmed ?Type bupropion HCl 300 mg 24 hr tablet, 300 mg PO DAILY 08/16/24 09/13/24 History extended release etodolac 400 mg tablet (Lodine) 400 mg PO BID 08/16/24 09/13/24 History norgestimate 0.18 mg/0.215mg/0.25 1 tab PO DAILY 08/16/24 09/13/24 History mg-ethinyl estradiol 0.025 mg tablet (Etr-Uk-Pdnczy) gabapentin 300 mg capsule 300 mg PO TID #90 caps 11/24/24 Rx ondansetron 4 mg disintegrating 4 mg PO Q6H PRN nausea and 11/28/24 Rx tablet vomiting #20 tabs Allergies Allergy/AdvReac Type Severity Reaction Status Date / Time No Known Drug Allergies Allergy Verified 09/13/24 08:20 Exam Constitutional Documenting provider has reviewed patient's vital signs: yes Common normals: no apparent distress, oriented x3, healthy appearing, alert and well nourished General appearance: cooperative HENMT Common normals: normocephalic, hearing grossly normal bilaterally and moist oral mucous membranes Head and scalp: normocephalic Eye Common normals: PERRL Pupil: PERRL Neck & C-Spine Common normals: full ROM General: normal visual inspection Chest Common normals: inspection of chest normal Respiratory Common normals: normal respiratory effort, no retractions and no use of accessory muscles Back & Pelvis Lumbar spine/lower back: pain with ROM, lumbar spinal tenderness and straight leg raise positive right Sacroiliac joints: SI joint(s) abnormal Other: decreased sensation to right L4,5,S1 strength 4/5 in RLE and 5/5 in LLE bilateral sij positive jarod(patricks), gaenslens, thigh thrust, compression test Neuro Common normals: oriented x3 Sensorium/orientation: alert Psych Common normals: mental status grossly normal, thought process normal, cooperative, affect normal, speech normal and activity/motor behavior normal Speech: normal speech Thought process: normal thought process Results Additional Findings Additional findings: If on a controlled substance or opioids, I have checked an OAR[place] report on this patient and there are no aberrancies noted in the prescribing history.??If on a controlled substance or opioid a drug screen was completed and reviewed within the last year, and if there has not been a drug screen completed we ordered one today to monitor higher risk, state monitored pain medication use. As part of providing excellent, safe, comprehensive care, the following was completed at our patient's visit: 1. A medication reconciliation and review to ensure accurate knowledge of current/active medications, including asking our patients to inform us about any ifqa-ioe-yoykxlc medications or herbal remedies/nutritional supplements/alternative remedies. 2. A review to specifically ensure our patients have had annual screening for screening for depression, screening for tobacco use, and screening for unhealthy alcohol use. For concerning screenings had a discussion with the patient, provided patient education, and recommended follow-up with primary care provider when appropriate. If patient noted with a risk of falling, they received education on strength, gait, and balance training to prevent future risk of falling. Portions of this note may have been carried over from the previous visit and updated as appropriate. Please note this office utilizes paper charting in addition to the electronic medical record. A list of current medications, vitals, and PMH is available there as the clinical staff outside of myself do not have access to [employer] charting during the clinic day operations. As part of providing quality comprehensive care the current medications, vitals, and PMH were reviewed in the paper chart. Assessment and Plan Assessment and Plan (1) Lumbar radiculopathy: (2) Lumbar stenosis with neurogenic claudication: (3) Lumbar degenerative disc disease: (4) Myalgia, other site: (5) Lumbar spondylosis: Assessment and Plan: consider lumbar MBBs for axial facet mediated low back pain in the future Plan 24 year old female with chronic low back and BLE pain secondary to lumbar bulging disc and facet arthropathy. on exam continues to exhibit pain secondary to lumbar radiculopathy and lumbar stenosis with NC. will trial right L4-5 L5-S1 TFESI under fluoroscopy, previous YELENA provided at least 50% improvement in radiculopathy for 3 months. continue PRN nsaids, baclofen 5-10mg BID PRN pain/spasms, gabapentin 300mg TID, and TENS PRN. pt pending EMG and NS consultation. f/u 2 weeks after YELENA
== END 2024-12-16 08:22 | disposition home or self-care (01) ==
LOC: PM 08:22
PROVIDERS: PCP Student in an Organized Health Care Education/Training Program; Visit Provider Nurse Practitioner
DX: M54.16 Radiculopathy, lumbar region (principal); M48.062 Spinal stenosis, lumbar region with neurogenic claudication; M51.369 Other intervertebral disc degeneration, lumbar region without mention of lumbar back pain or lower extremity pain; M79.18 Myalgia, other site; M47.812 Spondylosis without myelopathy or radiculopathy, cervical region
CPT/HCPCS: G0463

== ENCOUNTER 2024-12-27 09:11 | Day surgery (SDC) | payer BC, SELFPAY ==
--- OUTSIDE RECORDS SUMMARY | 2024-08-24 07:15 | XMS_ITS ---
Author Organization [facility] Address [address] [place] [address] Care Team Providers Care Education Instructor Name Role Phone NabilabhishekNancy Cruz Unavailable [phone] TedcoralEdgar Unavailable [phone] Allergies No Known Allergies REASON FOR VISIT Lumbar Disc Herniation- Dr Cruz Medications Medication SIG (Take, Route, Frequency, Duration) Notes Start Date End Date Status CETIRIZINE HCL 10 MG TAKE 1 TABLET BY MO [facility] EVERY DAY for 30 Days Not-Taking buPROPion [...] Location Date Provider Diagnosis [facility] [address] [place] [address] 08/24/2024 Edgar Patricio Plan Of Treatment No Information Progress Notes * ELADIA SIERRADOB:1999 (24 yo F)Acc No.[id number]:08/24/2024 Patient: ELADIA ZULETA Provider: Brisa Patricio MD :2000 A ge:24 Y S ex:Female Date:08/24/2024 Address:[address] [place], [place] [phone] Subjective: * Chief Complaints: * 1 . [...] Electronic signature of Edgar Patricio MD on 12/27/2024 at 09:14 AM EDT Sign off status: Pending * Provider: Brisa Patricio MD Date: 0 08/24/2024 Generated for Nii amezquita/Judy/Monica on: 0 12/27/2024 09:14 AM EDT
--- OUTSIDE RECORDS SUMMARY | 2024-09-06 09:00 | XMS_ITS ---
Author Organization [facility] Address [address] [place] [address] Care Team Providers Care Components Engineer Name Role Phone NabilabhishekZena Cruznereida Unavailable [phone] Edgar Patricio Unavailable [phone] REASON FOR VISIT Lumbar Disc herniation Dr Cruz Encounters Encounter Location Date Provider Diagnosis [facility] [address] [place] [phone] 09/06/2024 Edgar Patricio Plan Of Treatment No Information Progress Notes * ELADIA SIERRADOB:1999 (24 yo F)Acc No.[id number]:09/06/2024 Patient: ELADIA ZULETA Provider: Brisa Patricio MD :2000 A ge:24 Y S ex:Female Date:09/06/2024 Address:[address] [place], [place] [phone] Subjective: * Chief Complaints: * 1 . Lumbar Disc herniation Dr Cruz. * Medical History: Objective: * Vitals: Assessment: Plan: * Treatment: Forms: * Images: * Electronic signature of Edgar Patricio MD on 12/27/2024 at 09:14 AM EDT Sign off status: Pending * Provider: Brisa Patricio MD Date: 0 09/06/2024 Generated for Printi ng/Faaspeng/eTransmitting on: 0 12/27/2024 09:14 AM EDT
--- OUTSIDE RECORDS SUMMARY | 2024-12-15 08:15 | XMS_ITS | Encounter Summary ---
Author Organization [facility] Address [address] [address] Care Team Providers Care Floral Design Teacher Name Role Phone Destinee Britton MD Primary Care Provider [phone] Encounter Details Date Type Department Care Team [...] week 05/20/2024 How often do you attend moravian or tenriism serv ices? Never 05/20/2024 Do you belong to any clubs o r organizations such as moravian groups, unions, fraternal or athletic groups, or [...] Recorded Patient Health Questionnaire-2 Score 0 05/20/2024 [facility] of Occupat ional [facility] - Occupational Stress Questionnaire Answer Date [...] any time in the past 12 m [facility], were you homeless or living in a [place] health [place] facility (including now)? No 05/20/2024 Comments No Sex [...] EDT Office Visit [facility] [address] [place] [address] Jovita Salas, ALEJANDRAM [address] [place], [place] [id number] documented as of this encounter Procedures Procedure Name Priority Date/Time Associated Diagnosis Comments US LIVER Routine 12/15/2024 8:32 AM EDT Elevated liver enzymes documented in this encounter Results * US LIVER (12/15/2024 8:32 AM EDT) Anatomical Region Laterality Modality Abdomen Ultrasound Liver structure / Unknown 12/17/2024 10:26 AM EDT Narrative 12/17/2024 10:26 AM EDT EXAM: US LIVER HISTORY: Elevated liver enzymes. COMPARISON: None available. TECHNIQUE: Two-dimensional grayscale ultrasound of the right upper quadrant was performed. FINDINGS: The pancreas is suboptimally visualized due to overlying bowel gas. The visualized segments appear unremarkable. The liver measures 15.4 cm in length and demonstrates an increased echotexture with areas of focal fatty sparing. No intrahepatic biliary dilatation. No masses are identified. The main portal vein demonstrates normal, hepatopedal flow. The gallbladder demonstrates a normal echotexture. There are no gallstones. The common bile duct measures 0.3 cm. The right kidney measures 11.8 cm in length. Renal cortical echotexture is within normal limits. There is no hydronephrosis. There are no stones. There are no cysts. The visualized segments of the abdominal aorta and IVC appear unremarkable. IMPRESSION: 1. Increased hepatic echotexture, most commonly seen with steatosis. No mass. Interpreted by: Electronically signed by SIRI AVERY II, MD, PHD at 17-Dec-2024 10:25:11 AM [facility] Procedure Note Siri Avery MD - 12/17/2024 EXAM: US LIVER HISTORY: Elevated liver enzymes. COMPARISON: None available. TECHNIQUE: Two-dimensional grayscale ultrasound of the right upperquadrant was performed. FINDINGS: The pancreas is suboptimally visualized due to overlying bowel gas. Thevisualized segments appear unremarkable. The liver measures 15.4 cm in length and demonstrates an increasedechotexture with areas of focal fatty sparing. No intrahepatic biliarydilatation. No masses are identified. The main portal vein demonstratesnormal, hepatopedal flow. The gallbladder demonstrates a normal echotexture. There are nogallstones. The common bile duct measures 0.3 cm. The right kidney measures 11.8 cm in length. Renal cortical echotexture iswithin normal limits. There is no hydronephrosis. There are no stones.There are no cysts. The visualized segments of the abdominal aorta and IVC appearunremarkable. IMPRESSION: 1. Increased hepatic echotexture, most commonly seen with steatosis. [place]. Interpreted by: Electronically signed by SIRI AVERY II, MD, PHD [id number] 10:25:11 AM [facility] [place] [facility] us Ness Majors TELEGRAPH INSTALLER IMG US PROCEDURES Final Result documented in this encounter Visit Diagnoses Diagnosis Elevated liver enzymes Other nonspecific abnormal serum enzyme levels documented in this encounter Care Teams Floral Design Teacher Relationship Specialty Start Date End Date Destinee Britton MD [address] [place] [address] PCP - General Family Medicine 11/12/22 documented as of this encounter
--- OUTSIDE RECORDS SUMMARY | 2024-12-27 09:14 | XMS_ITS | Clinical Summary ---
Author Organization [facility] Address [address] [place] [address] Care Team Providers Care Product/Industry Consultant Name Role Phone Destinee Britton MD Primary Care Provider [phone] Allergies No known active allergies Medications norgestimate-ethin [...] Encounters Date Type Department Care Team Description 12/17/2024 Results Follow-Up [facility] [address] [place] [address] Ness Montez NP 12/15/2024 8:15 AM EDT Ancillary Procedure [facility] [address] [facility] [address] [place] [address] Elevated liver enzymes 12/15/2024 Travel 12/06/2024 Results Follow-Up [facility] [address] [facility] [place] [phone] Ness Montez NP Elevated liver enzymes (Primary Dx) 12/03/2024 2:00 PM EDT Ancillary Procedure [facility] RADIOLOGY [address] [facility] [address] [place] [phone] Pain of upper abdomen 12/03/2024 1:30 PM EDT Office Visit [facility] [address] [facility] [place] [phone] Ness Montez NP Nausea (Primary Dx); Pain of upper abdomen 12/03/2024 Travel 12/03/2024 Telephone [facility] [address] [facility] [place] [address] Destinee Britton MD 11/25/2024 Telephone [facility] [address] [place] [address] Ladan Kramer MA Contraception from Last 3 Months Immunizations Immunization Administration [...] week 05/20/2024 How often do you attend jain or zoroastrian serv ices? Never 05/20/2024 Do you belong to any clubs o r organizations such as jain groups, unions, fraternal or athletic groups, or [...] Recorded Patient Health Questionnaire-2 Score 0 05/20/2024 [facility] of Occupat ional Health - Occupational Stress [...] any time in the past 12 m [facility], were you homeless or living in a intermediate (including now)? No 05/20/2024 Comments No Sex [...] EDT Office Visit [facility] OB [address] [place] [address] Jovita Salas, ALEJANDRAM [address] [place], [place] [id number] Health Maintenance Due Date Last Done Comments Influenza Vaccine Completed 04/29/2024, 07/10/2019, 07/17/2018 Procedures Procedure Name Priority Date/Time Associated Diagnosis Comments EXTRA LAVENDER-TOP TUBE Routine 12/16/19 25 8:36 AM EDT PROTHROMBIN TIME-INR Routine 12/15/2024 8:36 AM EDT Elevated liver enzymes CYTOMEGALOVIRUS ANTIBODY, IGM Routine 12/15/2024 8:36 AM EDT Elevated liver enzymes AYAAN-DEAN VIRUS VCA, IGM Routine 12/15/2024 8:36 AM EDT Elevated liver enzymes FERRITIN Routine 12/15/2024 8:36 AM EDT Elevated liver enzymes BAR SCREEN W/REFLEX Routine 12/15/2024 8 :36 AM EDT Elevated liver enzymes AST Routine 12/15/2024 8:36 AM EDT Elevated liver enzymes ALT Routine 12/15/2024 8:36 AM EDT Elevated liver enzymes HEPATITIS PANEL, ACUTE Routine 8:36 AM EDT Elevated liver enzymes US LIVER Routine 12/15/2024 8:32 AM EDT Elevated liver enzymes XR ABDOMEN 2 VIEW Routine 12/03/2024 3:0 8 PM EDT Pain of upper abdomen NOTE Routine 12/03/2024 2:26 PM EDT URINALYSIS REFLEX Routine 12/03/2024 2:2 6 PM EDT Nausea Pain of upper abdomen CULTURE, URINE, ROUTINE Routine 12/04/19 2:26 PM EDT Nausea Pain of upper abdomen CBC (INCLUDES DIFF/PLT) Routine 12/04/19 2:25 PM EDT Nausea Pain of upper abdomen COMPREHENSIVE METABOLIC PANEL Routine 12/03/2024 2:25 PM EDT Nausea Pain of upper abdomen POCT , URINE Routine 12/03/2024 2:21 PM EDT Nausea POCT URINALYSIS DIPSTICK Routine 12/03/2024 2:21 PM EDT Nausea Pain of upper abdomen from Last 3 Months Results * EXTRA LAVENDER-TOP TUBE (12/15/2024 8:36 AM EDT) EXTRA LAVENDER-TOP TUBE [facility] COMMENT [facility] Comment: An extra specimen was received with no test requested. The specimen will be maintained in storage in case additional testing is needed. Please call the client service department for further assistance. 12/15/2024 8:36 AM EDT 12/15/2024 2:14 PM EDT Narrative Resulting Agency Comment Performing Organization Information Site ID: PB Name: [facility] Address: [address] [address] [facility] [place] [address] Director: Ashley Harris M.D. [facility] LEAF CONDITION[facility] LAB BLOOD ORDERABLES Final Resu lt Performing Organization Address [facility] Co de Phone Number [facility] * Cytomegalovirus antibody, IgM (12/15/2024 8:36 AM EDT) Pathologist [facility] CYTOMEGALOVIRUS ANTIBODY (IGM) <30.00 AU/mL [facility] Comment: AU/mL Interpretation ----- <30.00 No Antibody Detected 30.00-34.99 Equivocal > or = 35.00 Antibody Detected Results from any one IgM assay should not be used as a sole determinant of a current or recent infection. Because an IgM test can yield false positive results and low level IgM antibody may persist for more than 12 months post infection, reliance on a single test result could be misleading. Acute infection is best diagnosed by demonstrating the conversion of IgG from negative to positive. If an acute infection is suspected, consider obtaining a new specimen and submit for both IgG and IgM testing in two or more weeks. Blood Venous blood specimen / Unknown 12/15/2024 8:36 AM EDT 12/15/2024 2:14 PM EDT Narrative Resulting Agency Comment Performing Organization Information Site ID: QPT Name: [facility] Address: [address] [place] [address], [address] [place] [phone] Director: Ramana Taylor MD Ness Montez LEAF CONDITIONER LAB BLOOD ORDERABLES Final Resu Performing Organization Address [facility] de Phone Number [facility] * Hepatitis panel, acute (12/15/2024 8:36 AM EDT) Pathologist [facility] HEPATITIS A IGM NON-REACTI VE NON-REACT AUGUSTINE [facility] Comment: For additional information, please refer to http://careersmore.Reevoo.App47/faq/KWW397 (This link is being provided for informational/ educational purposes only.) HEPATITIS B SURFACE ANTIGEN NON-REACTI VE NON-REACT AUGUSTINE [facility] Comment: For additional information, please refer to http://careersmore.Reevoo.App47/faq/DMA187 (This link is being provided for informational/ educational purposes only.) HEPATITIS B CORE ANTIBODY (IGM) NON-REACTI VE NON-REACT AUGUSTINE [facility] Comment: For additional information, please refer to http://education.[employer]/faq/UNZ398 (This link is being provided for informational/ educational purposes only.) HEPATITIS C ANTIBODY NON-REACTI VE NON-REACT AUGUSTINE [facility] Comment: HCV antibody was non-reactive. There is no laboratory evidence of HCV infection. In most cases, no further action is required. However, if recent HCV exposure is suspected, a test for HCV RNA (test code 76258) is suggested. For additional information please refer to http://careersmore.[employer]/faq/CLB40c2 (This link is being provided for informational/ educational purposes only.) Blood Venous blood specimen / Unknown 12/15/2024 8:36 AM EDT 12/15/2024 2:14 PM EDT Narrative Resulting Agency Comment Performing Organization Information Site ID: QPT Name: [facility] Address: [address] [place] [address], [address] [place] [phone] Director: Ramana Taylor MD Ness A [employer] LEAF CONDITIONER LAB BLOOD ORDERABLES Final Resu lt [facility] * Ayaan-Dean virus VCA, IgM (12/15/2024 8:36 AM EDT) Pathologist [facility] EBV VIRAL CAPSID AG (VCA) AB (IGM) <36.00 U/mL [facility] Comment: U/mL Interpretation ---- <36.00 Negative 36.00-43.99 Equivocal >43.99 Positive Blood Venous blood specimen / Unknown 12/15/2024 8:36 AM EDT 12/15/2024 2:14 PM EDT Narrative Resulting Agency Comment Performing Organization Information Site ID: QPT Name: [facility] Address: [address] [place] [address], [address] [place] [phone] Director: Ramana Taylor MD [facility] LEAF CONDITIONER LAB BLOOD ORDERABLES Final Resu lt Performing Organization Address [facility] Co de Phone Number [facility] * Protime-INR (12/15/2024 8:36 AM EDT) INR 1.0 [facility] Comment: Reference Range 0.9-1.1 Moderate-intensity Warfarin Therapy 2.0-3.0 Higher-intensity Warfarin Therapy 3.0-4.0 PT 10.2 9.0 - 11.5 sec [facility] Comment: For additional information, please refer to http://careersmore.[employer]/faq/YJJ799 (This link is being provided for informational/ educational purposes only.) Blood Venous blood specimen / Unknown 12/15/2024 8:36 AM EDT 12/15/2024 2:14 PM EDT Narrative Resulting Agency Comment Performing Organization Information Site ID: QTW Name: [facility] Address: [address] [place] [phone] Director: Lashawn Hoyt Ness Montez LEAF CONDITIONER LAB BLOOD ORDERABLES Final Resu lt Performing Organization Address [facility] de Phone Number [facility] * BAR (12/15/2024 8:36 AM EDT) BAR SCREEN, IFA NEGATIVE NEGATIVE [facility] Comment: BAR IFA is a first line screen for detecting the presence of up to approximately 150 autoantibodies in various autoimmune diseases. A negative BAR IFA result suggests an BAR-associated autoimmune disease is not present at this time, but is not definitive. If there is high clinical suspicion for Sjogren's syndrome, testing for anti-SS-A/Ro antibody should be considered. Anti-Edwina-1 antibody should be considered for clinically suspected inflammatory myopathies. AC-0: Negative International Consensus on BAR Patterns (https://doi.org/10.1515/smgv-2577-7310) For additional information, please refer to http://careersmore.Viewpoints.App47/faq/VOC900 (This link is being provided for informational/ educational purposes only.) Blood Venous blood specimen / Unknown 12/15/2024 8:36 AM EDT 12/15/2024 2:14 PM EDT Narrative Resulting Agency Comment Performing Organization Information Site ID: QPT Name: [facility] Address: [address] [facility] [place] [address] Director: Ramana Taylor MD Ness Majors LEAF CONDITIONER LAB BLOOD ORDERABLES Final Resu lt Performing Organization Address City/[facility]/ZIP Co de Phone Number [facility] * (ABNORMAL) ALT (12/15/2024 8:36 AM EDT) ALT 33(H) 6 - 29 U/L [facility] Blood Venous blood specimen / Unknown 12/15/2024 8:36 AM EDT 12/15/2024 2:14 PM EDT Narrative Resulting Agency Comment Performing Organization Information Site ID: QTW Name: [facility] Address: [address] [place] [phone] Director: Lashawn Hoyt [facility] LEAF CONDITIONER LAB BLOOD ORDERABLES Final Resu lt Performing Organization Address [facility] de Phone Number [facility] * AST (12/15/2024 8:36 AM EDT) AST 17 10 - 30 U/L [facility] Blood Venous blood specimen / Unknown 12/15/2024 8:36 AM EDT 12/15/2024 2:14 PM EDT Narrative Resulting Agency Comment Performing Organization Information Site ID: QTW Name: [facility] Address: [address] [place] [phone] Director: Lashawn Hoyt Ness Majors LEAF CONDITIONER LAB BLOOD ORDERABLES Final Resu lt Performing Organization Address City/[facility] de Phone Number [facility] * Ferritin (12/15/2024 8:36 AM EDT) FERRITIN 28 16 - 154 ng/mL [facility] Blood Venous blood specimen / Unknown 12/15/2024 8:36 AM EDT 12/15/2024 2:14 PM EDT Narrative Resulting Agency Comment Performing Organization Information Site ID: QPT Name: [facility] Address: [address] , [address] [place] [address] Director: Ramana Taylor MD Ness Montez LEAF CONDITIONER LAB BLOOD ORDERABLES Final Resu lt [facility] * US LIVER (12/15/2024 8:32 AM EDT) [...] mass. Interpreted by: Electronically signed by SIRI DALEY II, MD, PHD at 17-Dec-2024 10:25:11 AM [facility] Procedure Note Siri Daley MD - 12/17/2024 EXAM: US LIVER HISTORY: [...] Nomass. Interpreted by: Electronically signed by SIRI DALEY II, MD, PHD 10:25:11 AM [facility] Ness Majorcuauhtemoc LEAF CONDITIONER IM US PROCEDURES Final Result * XR ABDOMEN 2 VIEW (12/03/2024 3:08 [...] calcification. IMPRESSION: Negative abdominal series Ness Montez LEAF CONDITIONER IMG XR PROCEDURES Final Result * NOTE (12/03/2024 2:26 PM EDT) NOTE [facility] Comment: This urine was analyzed for the presence of WBC, RBC, bacteria, casts, and other formed elements. Only those elements seen were reported. 12/03/2024 2:26 PM EDT 12/03/2024 2:27 PM EDT Narrative Resulting Agency Comment Performing Organization Information Site ID: QPT Name: [facility] Address: [address] [place] [address], [address] [place] [phone] Director: Ramana Taylor MD Ness Montez LEAF CONDITIONER [facility] Final Result Performing Organization Address [facility] de Phone Number [facility] * (ABNORMAL) [...] Performing Organization Information Site ID: QPT Name: [facility] Address: [address] [place] [address], [address] [place] [phone] Director: Ramana Taylor MD Ness Montez LEAF CONDITIONER LAB URINE ORDERABLES Final Resu lt Performing Organization Address [facility] Co de Phone Number [facility] * Urine culture (clean catch) (12/03/2024 2:26 PM EDT) MICRO NUMBER [id number] [facility] SPECIMEN QUALITY Adequate [facility] SOURCE: (QUEST) URINE [facility] STATUS FINAL [facility] RESULT SEE NOTE [facility] Comment: No Growth Urine Urine specimen obtained by clean catch procedure / Unknown 12/03/2024 2:26 PM EDT 12/03/2024 2:27 PM EDT Narrative Resulting Agency Comment Performing Organization Information Site ID: QPT Name: [facility] Address: [address] [place] [address] Director: Ramana Taylor MD Ness Montez LEAF CONDITIONER LAB MICROBIOLOGY - GENERAL GWEN YEN Final Result [facility] * CBC and differential (12/03/2024 2:25 PM EDT) WHITE BLOOD CELL COUNT 6.8 3.8 - [...] Performing Organization Information Site ID: QPT Name: [facility] Address: [address] [place] [address] Director: Ramana Taylor MD Ness Montez LEAF CONDITIONER LAB BLOOD ORDERABLES Final Resu lt [facility] * (ABNORMAL) Comprehensive metabolic panel (12/03/2024 2:25 PM EDT) [facility] Glucose 76 65 - 99 mg/dL [facility] [...] Performing Organization Information Site ID: QPT Name: [facility] Address: [address] [place] [address] Director: Ramana Taylor MD Ness Montez LEAF CONDITIONER LAB BLOOD ORDERABLES Final Resu lt [facility] * POCT , urine (12/03/2024 2:21 PM EDT) Preg Test, Ur Negative Negative Urine 12/03/2024 2:21 PM EDT Ness Montez LEAF CONDITIONER POINT OF CARE TEST ENTER/EDIT O RDERABLES [...] Urine 12/03/2024 2:21 PM EDT Ness Montez LEAF CONDITIONER POINT OF CARE TEST ENTER/EDIT O RDERABLES Final Result from Last 3 Months Insurance BS Care Teams Product/Industry Consultant Relationship Specialty Start Date End Date Destinee Britton MD [address] [place] [address] PCP - General Family Medicine 11/12/22
--- OUTSIDE RECORDS SUMMARY | 2024-12-27 09:14 | XMS_ITS | Patient Health Record ---
Author Organization [facility] Address [address] [place] [address] Care Team Providers Care Wheel Grinder Name Role Phone Nancy Montes De Oca Unavailable [phone] Edgar Patricio Unavailable [phone] Allergies No Known Allergies Reason For Referral Reason PRIOR AUTH APPROVED ANTHEM...MRI lumbar scheduled 08/03/24 DONE Diagnosis 1 Lumbar radiculopathy (M54.16) Referral Organization [facility] Referring Provider [facility] Name [facility] Referring Provider Last Name [facility] Referring Provider Speciality Orthopedic Surgery Referred Organization [facility] Referred Address [address] [place] [phone], Procedure 1 MRI Lumbar Spine w/o Dye (15921) General Notes Kathy Deal 07/27/19 11:05:31 AM >, Demetria Hannon 07/27/2024 11:28:31 AM > PER PEPITO PRIOR AUTH HAS BEEN APPROVED FROM 07/27/2024-08/25/2024 AUTH # [id number], AUTH IN CHART. Referral Priority Stat Reason Referral Dr. Sheng capellan and treat L4-S1 YELENA Diagnosis 1 Lumbar disc herniati on (M51.26) Referral Organization [facility] Referring Provider First Name Inherman Referring Provider Last Name lisaZena Referring Provider Speciality Orthopedic Surgery Referred Organization [facility] Referred Provider Edgar Patricio Referred Address [address] [place] [phone],[place] General Notes SayKahty 08/03/19 12:17:52 PM >, Claudia Eladia 08/04/2024 08:27:50 AM >CAlled and lmovm to schedule with Dr Patricio-september, Eladia Taylor 08/04/2024 08:36:04 AM >scheduled 3.3.25 Referral Priority Routine Reason [phone] fax [facility]; Pt requesting pain management at that location. Diagnosis 1 Lumbar radiculopathy (M54.16) Referral Organization [facility] Referring Provider First Name [facility] Referring Provider Last Name [facility] Referring Provider Speciality Orthopedic Surgery Referred Organization [facility] Referred Address [place], [place], General Notes Malia Lobato 12/2024 02:22:47 PM >, Malia Lobato 08/13/2024 09:43:43 AM >FYI: She is scheduled for an appt with Dr. 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 confirmed Vital Signs Height 5ft 7in in 08/03/2024 Weight 240 lbs 08/03/2024 BMI 37.59 08/03/2024 Encounters Encounter Location Date Provider Diagnosis [facility] [address] [place] [address] 08/03/2024 [facility] Lumbar radiculopathy M54.16 [facility] [address] [place] [address] 07/27/2024 [facility] Lumbar radiculopathy M54.16 ; Discogenic low back pain M51.360 and Right hip pain M25.551 [facility] [address] [place] [address] 08/03/2024 [facility] Lumbar disc herniation M51.26 and Lumbar radiculopathy M54.16 [facility] [place] [place] [address] [place] [address] 08/05/2024 Edgar Patricio [place] [address] [place] [address] 08/12/2024 [facility] Lumbar radiculopathy M54.16 ; Right hip [...] Lumbar spine 2v ap and lat - 66011 07/27 Hip, right 2v WITH PELVIS - 38088 2024 Future Test Test Name Order Date MRI : Lumbosacral Spine W/O Contrast - 7 214707/27/2024 Insurance Providers Payer Name Payer Address Payer Phone Subscriber Number Group Number Insured Name Patient Relationship to Insured Coverage Start Date Coverage End Date Elvin [address] [place] [address] [id number] ELADIA PAN Self - patient is [...]
--- OUTSIDE RECORDS SUMMARY | 2024-12-27 09:14 | XMS_ITS | Encounter Summary ---
Author Organization [facility] Address [address] [place] [address] Care Team Providers Care Production Honing Machine Operator Name Role Phone Destinee Britton MD Primary Care Provider [phone] Encounter Details Date Type Department Care Team (Late st Contact Info) Description 09/10/2024 Telephone [facility] [address] [place] [address] Jovita Salas, ALEJANDRA [address] [place], [place] [phone] Social History Tobacco Use Types Packs/Day Years [...] How often do you attend scientologist or jehovah's witness serv ices? Never 05/20/2024 [...] Recorded Patient Health Questionnaire-2 Score 0 05/20/2024 [facility] Occupat ional Health - Occupational Stress [...] PM EDT Office Visit [facility] [address] [place] [address] Jovita Salas CNM [address] [place] [address] documented as of this encounter Visit Diagnoses Not on filedocumented in this encounter Care Teams Production Honing Machine Operator Relationship Specialty Start Date End Date Destinee Britton MD [address] [place] [address] PCP - General Family Medicine 11/12/22 documented as of this encounter
--- OUTSIDE RECORDS SUMMARY | 2024-12-27 09:14 | XMS_ITS | Encounter Summary ---
Author Organization [facility] Address [address] [facility] [place] [address] Care Team Providers Care Senior Credit Analyst Name Role Phone Destinee Britton MD Primary Care Provider [phone] Encounter Details Date Type Department Care Team (Late st Contact Info) Description 12/17/2024 Results Follow-Up [facility] [address] [place] [address] Ness Montez NP [address] [place], [place] [phone] Social History Tobacco Use Types Packs/Day Years [...] week 05/20/2024 How often do you attend yarsani or jewish serv ices? Never 05/20/2024 Do you belong to any clubs o r organizations such as yarsani groups, unions, fraternal or athletic groups, or [...] Patient Health Questionnaire-2 Score 0 05/20/2024 [facility] of Occupat ional Health - Occupational Stress [...] EDT Office Visit [facility] [address] [place] [address] Jovita Salas CNM [address] [place] [address] documented as of this encounter Visit Diagnoses Not on filedocumented in this encounter Care Teams Senior Credit Analyst Relationship Specialty Start Date End Date Destinee Britton MD [address] [place], [place] [phone] PCP - General Family Medicine 11/12/22 documented as of this encounter
--- OUTSIDE RECORDS SUMMARY | 2024-12-27 09:14 | XMS_ITS | Encounter Summary ---
Author Organization [facility] Address [address] [facility] [place] [address] Care Team Providers Care Rough Rounder Name Role Phone Dsetinee Britton MD Primary Care Provider [phone] Reason for Referral * Consultation (Routine) - Authorized Specialty Diagnoses / Procedures Referred By Donya t Referred To Contact Gastroenterology Diagnoses Elevated liver enzymes Procedures OR OFFICE/OUTPATIENT [facility] MDM 60 MINUTES Ness Long NP [address] [place] [address] Phone: tel: fax: Jemma Fournier DO [facility] Referrals ONLY fax: Referral ID Status Reason Start Date Expiration Date Visits Requested Visits Authorized [id number] Authorized Specialty Services Required 12/06/2024 06/04/2025 1 1 Reason for Visit * Reason Onset Date Comments Results 12/06/2024 Encounter Details Date Type Department Care Team (Late st Contact Info) Description 12/06/2024 Results Follow-Up [facility] [address] [place] [phone] Ness Long NP [address] [place], [place] [phone] Elevated liver enzymes (Primary Dx) Social History [...] week 05/20/2024 How often do you attend mandaen or baptism serv ices? Never 05/20/2024 Do you belong to any clubs o r organizations such as mandaen groups, unions, fraternal or athletic groups, or [...] Recorded Patient Health Questionnaire-2 Score 0 05/20/2024 [facility] [place] of Occupat ional Health - Occupational Stress [...] any time in the past 12 m [facility], were you homeless or living in a [facility] (including now)? No 05/20/2024 Comments No Sex [...] has been placed with Dr. Fournier in [place]. ----- Message ----- From: Ladan Kramer MA [...] EDT Office Visit [facility] [address] [place] [address] Jovita Salas, ALEJANDRAM [address] [place] [address] Scheduled Referrals Name Type Priority Associated Diagnoses Order Schedule Ambulatory referral to Gastroenterology Outpatient Referral Routine Elevated liver enzymes Expected: 12/06/2024 (Approximate), Expires: 06/07/2025 documented as of this encounter Procedures Procedure Name Priority Date/Time Associated Diagnosis Comments EXTRA LAVENDER-TOP TUBE Routine 12/16/19 8:36 AM EDT CYTOMEGALOVIRUS ANTIBODY, IGM Routine 12/15/2024 8:36 AM EDT Elevated liver enzymes HEPATITIS PANEL, ACUTE Routine 8:36 AM EDT Elevated liver enzymes AYAAN-DEAN VIRUS VCA, IGM Routine 12/15/2024 8:36 AM EDT Elevated liver enzymes PROTHROMBIN TIME-INR Routine 12/15/2024 8:36 AM EDT Elevated liver enzymes BAR SCREEN W/REFLEX Routine 12/15/2024 8 :36 AM EDT Elevated liver enzymes ALT Routine 12/15/2024 8:36 AM EDT Elevated liver enzymes AST Routine 12/15/2024 8:36 AM EDT Elevated liver enzymes FERRITIN Routine 12/15/2024 8:36 AM EDT Elevated liver enzymes documented in this encounter Results * EXTRA LAVENDER-TOP TUBE (12/15/2024 8:36 [...] Performing Organization Information Site ID: PB Name: [facility] [place] Address: [address] [facility] [place] [address] Director: Ashley Harris M.D. [facility] LAB BLOOD ORDERABLES Final Resu Performing Organization Address [facility] [[email or web address]] de Phone Number [facility] * Protime-INR (12/15/2024 8:36 AM EDT) Pathologist [facility] INR 1.0 [facility] Comment: Reference Range 0.9-1.1 Moderate-intensity Warfarin Therapy 2.0-3.0 Higher-intensity Warfarin Therapy 3.0-4.0 PT 10.2 9.0 - 11.5 sec [facility] Comment: For additional information, please refer to http://education.AnyPerk/faq/IDZ388 (This link is being provided for informational/ educational purposes only.) Blood Venous blood specimen / Unknown 12/15/2024 8:36 AM EDT 12/15/2024 2:14 PM EDT Narrative Resulting Agency Comment Performing Organization Information Site ID: QTW Name: [facility] Address: [address] [place] [phone] Director: Lashawn Hoyt [facility] LAB BLOOD ORDERABLES Final Resu lt Performing Organization Address [facility] [[email or web address]] de Phone Number [facility] * Cytomegalovirus antibody, IgM (12/15/2024 8:36 AM EDT) Pathologist [facility] CYTOMEGALOVIRUS ANTIBODY (IGM) <30.00 AU/mL [facility] Comment: [...] Performing Organization Information Site ID: QPT Name: [facility] Address: [address] [place] [address], [address] [place] [phone] Director: Ramana Taylor MD [facility] BLOOD ORDERABLES Final Resu lt Performing Organization Address [facility] [[email or web address]] de Phone Number [facility] * Ayaan-Dean virus VCA, IgM (12/15/2024 8:36 AM EDT) [facility] EBV VIRAL CAPSID AG (VCA) AB (IGM) <36.00 U/mL [facility] Comment: U/mL Interpretation ---- <36.00 Negative 36.00-43.99 Equivocal >43.99 Positive Blood Venous blood specimen / Unknown 12/15/2024 8:36 AM EDT 12/15/2024 2:14 PM EDT Narrative Resulting Agency Comment Performing Organization Information Site ID: QPT Name: [facility] Address: [address] [place] [address], [address] [place] [phone] Director: Ramana Taylor MD [facility] CLINICAL TECHNOLOGIST LAB BLOOD ORDERABLES Final Resu lt Performing Organization Address [email or web address]] de Phone Number [facility] * Ferritin (12/15/2024 8:36 AM EDT) FERRITIN 28 16 - 154 ng/mL [facility] Blood Venous blood specimen / Unknown 12/15/2024 8:36 AM EDT 12/15/2024 2:14 PM EDT Narrative Resulting Agency Comment Performing Organization Information Site ID: QPT Name: [facility] Address: [facility], [address] [place] [phone] Director: Ramana Taylor MD [facility] LAB BLOOD ORDERABLES Final Resu lt Performing Organization Address [facility] de Phone Number [facility] * [...] AC-0: Negative International Consensus on BAR Patterns (https://doi.org/10.1515/pysp-2659-8087) For additional information, please refer to http://education.Golden Reviews/faq/OLU950 (This link is being provided for informational/ educational purposes only.) Blood Venous blood specimen / Unknown 12/15/2024 8:36 AM EDT 12/15/2024 2:14 PM EDT Narrative Resulting Agency Comment Performing Organization Information Site ID: QPT Name: [facility] Address: [facility], [address] [place] [address] Director: Ramana Taylor MD [facility] CLINICAL TECHNOLOGIST LAB BLOOD ORDERABLES Final Resu lt [facility] * AST (12/15/2024 8:36 AM EDT) AST 17 10 - 30 U/L [facility] Blood Venous blood specimen / Unknown 12/15/2024 8:36 AM EDT 12/15/2024 2:14 PM EDT Narrative Resulting Agency Comment Performing Organization Information Site ID: QTW Name: [facility] Address: [address] [place] [phone] Director: Lashawn Hoyt [facility] CLINICAL TECHNOLOGIST LAB BLOOD ORDERABLES Final Resu lt Performing Organization Address [email or web address]] de Phone Number [facility] * (ABNORMAL) ALT (12/15/2024 8:36 AM EDT) ALT 33(H) 6 - 29 U/L [facility] Blood Venous blood specimen / Unknown 12/15/2024 8:36 AM EDT 12/15/2024 2:14 PM EDT Narrative Resulting Agency Comment Performing Organization Information Site ID: QTW Name: [facility] Address: [address] [place] [phone] Director: Lashawn Hoyt [facility] CLINICAL TECHNOLOGIST LAB BLOOD ORDERABLES Final Resu lt Performing Organization Address [facility] [[email or web address]] de Phone Number [facility] * Hepatitis panel, acute (12/15/2024 8:36 AM EDT) HEPATITIS A IGM NON-REACTI VE NON-REACT AUGUSTINE [facility] Comment: For additional information, please refer to http://[facility] [employer] [place].AnyPerk/faq/CGS624 (This link is being provided for informational/ educational purposes only.) HEPATITIS B SURFACE ANTIGEN NON-REACTI VE NON-REACT AUGUSTINE [facility] Comment: For additional information, please refer to http://[facility] [employer] [place].AnyPerk/faq/SAP033 (This link is being provided for informational/ educational purposes only.) HEPATITIS B CORE ANTIBODY (IGM) NON-REACTI VE NON-REACT AUGUSTINE [facility] Comment: For additional information, please refer to http://education.AnyPerk/faq/QVJ832 (This link is being provided for informational/ educational purposes only.) HEPATITIS C ANTIBODY NON-REACTI VE NON-REACT AUGUSTINE [facility] Comment: HCV antibody was non-reactive. There is no laboratory evidence of HCV infection. In most cases, no further action is required. However, if recent HCV exposure is suspected, a test for HCV RNA (test code 16239) is suggested. For additional information please refer to http://[facility] [employer] [place].AnyPerk/faq/UXB61a0 (This link is being provided for informational/ educational purposes only.) Blood Venous blood specimen / Unknown 12/15/2024 8:36 AM EDT 12/15/2024 2:14 PM EDT Narrative Resulting Agency Comment Performing Organization Information Site ID: QPT Name: [facility] Address: [address] [place] [address], [address] [place] [phone] Director: Ramana Taylor MD Ness Long NP LAB BLOOD ORDERABLES Final Resu lt [...] II, MD, PHD at 17-Dec-2024 10:25:11 AM [facility] Procedure Note Siri Avery MD - [...] signed by SIRI AVERY II, MD, PHD [id number] 10:25:11 AM [facility] CLINICAL TECHNOLOGIST IM US PROCEDURES Final Result documented in this encounter Visit Diagnoses Diagnosis Elevated liver enzymes- Primary Other nonspecific abnormal serum enzyme levels Elevated liver enzymes Other nonspecific abnormal serum enzyme levels documented in this encounter Care Teams Rough Rounder Relationship Specialty Start Date End Date Destinee Britton MD [address] [place] [address] PCP - General Family Medicine 11/12/22 documented as of this encounter
--- OUTSIDE RECORDS SUMMARY | 2024-12-27 09:14 | XMS_ITS | Encounter Summary ---
Author Organization [facility] Address [address] [place] [address] Care Team Providers Care Practice Managers Name Role Phone Destinee Britton MD Primary Care Provider Encounter Details Date Type Department Care Team (Latest Contact Info) Description 12/15/2024 Travel Social History Tobacco Use Types Packs/Day Years Used Date Smoking Tobacco: Never Smokeless Tobacco: Never Comments:Currently Vape ever y Alcohol Use Standard Drinks/Week Comments Not Currently [...] week 05/20/2024 How often do you attend religious or shinto serv ices? Never 05/20/2024 Do you belong to any clubs o r organizations such as religious groups, unions, fraternal or athletic groups, or [...] Recorded Patient Health Questionnaire-2 Score 0 05/20/2024 [facility] of Occupat ional Health - Occupational Stress [...] any time in the past 12 m [facility], were you homeless or living in [...] EDT Office Visit [facility] [address] [place] [address] Jovita Salas, CNM [address] [place], [place] [phone] documented as of this encounter Visit Diagnoses Not on filedocumented in this encounter Care Teams Practice Managers Relationship Specialty Start Date End Date Destinee Britton MD [address] [place], [place] [phone] PCP - General Family Medicine 11/12/22 documented as of this encounter
--- OUTSIDE RECORDS SUMMARY | 2024-12-27 09:15 | XMS_ITS | Encounter Summary ---
Author Organization [facility] tem Address [id number] [address] [place] [address] Care Team Providers Care Hole Filler Name Role Phone Ottoniel Romeo DO Primary Care Provider [phone] Encounter Details Date Type Department Care Team (Latest Contact Info) Description 12/16/2024 Travel Social History Tobacco Use Types Packs/Day [...] on filedocumented in this encounter Care Teams Hole Filler Relationship Specialty Start Date End Date Ottoniel Romeo DO PCP - General Family Medicine 04/03/20 documented as of this encounter
--- OUTSIDE RECORDS SUMMARY | 2024-12-27 09:15 | XMS_ITS | Clinical Summary ---
Author Organization [facility] [facility] tem Address [id number] [address] [place] [address] Care Team Providers Care Work Car Operator Name Role Phone IgnacionickernestineOttoniel calderon Sunil BOWEN Primary Care Provider [phone] Allergies No known active allergies Medications * [...] organization. Date Type Department Care Team Description 12/16/2024 Travel 11/11/2024 Travel 10/14/2024 Travel from Last 3 Months Immunizations Immunization [...] Not on file Insurance ANTHEM Care Teams Work Car Operator Relationship Specialty Start Date End Date Ottoniel Romeo DO PCP - General Family Medicine 04/03/20
--- OUTSIDE RECORDS SUMMARY | 2024-12-27 09:15 | XMS_ITS | Clinical Summary ---
Author Organization [facility] Address [address] [place] [address] Care Team Providers Care Marble Polisher Hand Name Role Phone Ottoniel Romeo Primary Care Provider [phone] Allergies No known active allergies Medications buPROPion [...] 11/24/2024 2:32 PM EDT Emergency [facility] Emergency Department [address] [id number] Acute exacerbation of chronic low back pain [...] this topic Insurance [place] BCBS Care Teams Marble Polisher Hand Relationship Specialty Start Date End Date Ottoniel Romeo DO [address] [place] [address];[address] [place] [address] PCP - General Family Medicine 07/20/24
[2024-12-27 09:37] VITALS: BP 135/100; PULSE 88; TEMP 36.8; O2SAT 96
[2024-12-27 09:38] LABS: HCG Qualitative NEGATIVE (NEGATIVE); Internal Control Within Normal Limits
[2024-12-27 10:11] VITALS: BP 144/51; PULSE 76; O2SAT 99
[2024-12-27 10:12] VITALS: BP 124/58; PULSE 76; O2SAT 99
[2024-12-27] MEDS: LIDOCAINE HCL 2% 400 MG/20 ML MDV INJ (10:15)
[2024-12-27] MEDS: IOHEXOL 240 MG/ML - 10 ML VIAL INJ (10:15)
[2024-12-27] MEDS: 0.9 % SODIUM CHLORIDE 10 ML SYRINGE - SALINE FLUSH INJ (10:15)
[2024-12-27] MEDS: BUPIVACAINE HCL 0.25% PF 25 MG/10 ML VIAL INJ (10:15)
[2024-12-27] MEDS: METHYLPREDNISOLONE ACETATE 80 MG/ML VIAL INJ (10:16)
--- NOTE | 2024-12-27 10:17 | P.ON_ITS ---
Date of procedure: 12/27/24 Pre-op diagnosis: Pain due to lumbar stenosis with neurogenic claudication Post-op diagnosis: same as pre-op Procedure: Procedure: Right L4-5, L5-S1 transforaminal epidural steroid injection Medications: Bupivacaine 0.25% 2cc, lidocaine 2% 1cc, depomedrol 80mg The patient was seen and examined in the preoperative holding area.? Informed consent was obtained and placed on the chart.? Patient was brought to the medical procedure unit and placed in the prone position where a timeout was completed verifying the correct patient, procedure site, position, and planned special equipment using sterile aseptic technique.? Under direct fluoroscopic visualization a 25-gauge Quincke tipped spinal needle was advanced to the designated neural foramen where contrast dye was injected to show adequate spread.? The needle was inserted at level right L4-5. There was no evidence of vascular or adverse uptake.? Epidural spread was appreciated.? The above- mentioned injectate was then placed in a 1.5 mL aliquot preceded by negative aspiration.? The needle was removed. The needle was inserted and the procedure repeated at level right L5-S1.? The surgery site was covered.? Patient was taken to the postprocedural recovery area and monitored for an appropriate length of time before found suitable for discharge in the accompaniment of a responsible adult. Anesthesia: Local Surgeon: Ty [place] Pathology: none sent Condition: stable Disposition: no change
== END 2024-12-27 10:22 | disposition home or self-care (01) ==
LOC: SURGOUT 09:12
PROVIDERS: PCP Student in an Organized Health Care Education/Training Program; Visit Provider Anesthesiology
DX: M54.50 Low back pain, unspecified (principal); M48.062 Spinal stenosis, lumbar region with neurogenic claudication
CPT/HCPCS: 36415; 64483; 64484; 84703; J0665; J1010; Q9966

== ENCOUNTER 2025-02-10 08:20 | Outpatient (OUT) | payer BC, SELFPAY ==
--- OUTSIDE RECORDS SUMMARY | 2024-08-24 07:15 | XMS_ITS ---
Author Organization [facility] Address [address] [place] [address] Care Team Providers Care Supervisor Pleating Name Role Phone rodrigoMaxxKelinNancy Cruz Unavailable Edgar Patricio Unavailable [phone] Allergies No Known Allergies REASON FOR VISIT Lumbar Disc Herniation- Dr Cruz Medications Medication SIG (Take, Route, Frequency, Duration) Notes Start Date End Date Status CETIRIZINE HCL 10 MG TAKE 1 TABLET BY [facility] EVERY DAY for 30 Days Not-Taking [...] smoker Encounters Encounter Location Date Provider Diagnosis [facility] [address] [place] [address] 08/24/2024 Edgar Patricio Plan Of Treatment No Information Progress Notes * ELADIA SIERRADOB:1999 (24 yo F)Acc No.[id number]:08/24/2024 Patient: ELADIA ZULETA Provider: Brisa Patricio MD :2000 A ge:24 Y S ex:Female Date:08/24/2024 Address:[address] [place], [place] [phone] Subjective: * Chief Complaints: * 1 . [...] Electronic signature of Edgar Patricio MD on 02/10/2025 at 08:28 AM EDT Sign off status: Pending * Provider: Brisa Patricio MD Date: 0 08/24/2024 Generated for Nii amezquita/Judy/Monica on: 0 02/10/2025 08:28 AM EDT
--- OUTSIDE RECORDS SUMMARY | 2024-09-06 09:00 | XMS_ITS ---
Author Organization [facility] Address [address] [place] [address] Care Team Providers Care Mat Man Name Role Phone rodrigoNabilabhishekNancy Cruz Unavailable Edgar Patricio Unavailable [phone] REASON FOR VISIT Lumbar Disc herniation Dr Cruz Encounters Encounter Location Date Provider Diagnosis [facility] [address] [place] [phone] 09/06/2024 Edgar Patricio Plan Of Treatment No Information Progress Notes * ELADIA SIERRADOB:1999 (24 yo F)Acc No.[id number]:09/06/2024 Patient: ELADIA ZULETA Provider: Brisa Patricio MD :2000 A ge:24 Y S ex:Female Date:09/06/2024 Address:[address] [place], [place] [phone] Subjective: * Chief Complaints: * 1 [address] Lum[address] Disc her[address] Dr Cruz. * Medical History: Objective: * Vitals: Assessment: Plan: * Treatment: Forms: * Images: * Electronic signature of Edgar Patricio MD on 02/10/2025 at 08:28 AM EDT Sign off status: Pending * Provider: Brisa Patricio MD Date: 0 09/06/2024 Generated for Shamari alirio/Judy/eTransmitting on: 0 02/10/2025 08:28 AM EDT
--- OUTSIDE RECORDS SUMMARY | 2025-01-27 18:00 | XMS_ITS | Encounter Summary ---
Author Organization [facility] Address [address] [place] [address] Care Team Providers Care Journalism Intern Name Role Phone Destinee Britton MD Primary Care Provider [phone] Reason for Visit * Rehabilitation - Outpatient (Routine) - Authorized Specialty Diagnoses / Procedures Referred By Contac t Referred To Contact Physical Therapy Diagnoses Sacrococcygeal disorders, not elsewhere classified Procedures [place] PHYSICAL THERAPY EVALUATION LOW COMPLEX 20 MINS [place] OFFICE/OUTPATIENT NEW HIGH MDM 60 MINUTES Feliz Musa MD [address] [place] [address], [address] [place] [address] Phone: tel: fax: Delia Kwan PT Referral ID Status Reason Start Date Expiration Date V isits Requested Visits Authorized [id number] Authorized 01/24/2025 03/24/2025 6 6 Encounter Details Date Type Department Care Team (Latest Contact Info) Description 01/27/2025 6:00 PM EDT Treatment [facility] [address] [facility] [address] [place] [address] Ofelia Blakely, NATI Sacrococcygeal disorders, not elsewhere classified (Primary Dx) Social History Tobacco Use Types [...] week 05/20/2024 How often do you attend denominational or jew serv ices? Never 05/20/2024 Do you belong to any clubs o r organizations such as denominational groups, unions, fraternal or athletic groups, or [...] money to buy more. Never true 05/20/20 Within the past 12 months, t he [...] any time in the past 12 m [facility], were you homeless or living in a half-way (including now)? No 05/20/2024 Comments No Sex and Gender Information Value Date Recorded Sex Assigned at Female 06/25/2023 1:54 PM EST Legal Sex Female 6:57 PM EDT Gender Identity Female 06/25/2023 1:54 PM EST Sexual Orientation Not on file documented as of this encounter Progress Notes * Ofelia Zora, ORDER DISPATCHER - 01/27/2025 6:00 PM EDT Images from the original note were not included. Physical Therapy Treatment Visit Patient Name: Edwige Patterson Today's Date: 01/27/2025 Encounter Diagnoses Name Primary? Sacrococcygeal disorders, not elsewhere classified Yes Visit number: 2 Timed Code Treatment: 29 minutes Total Treatment Time: 39 minutes Time In: 5:40 PM Time Out: 6:19 PM History: Pt states she has been having low back problems since July of this year. Pt states sx'shave gotten better since then but she still having good and bad days. Pt states her back feels heavy at times and has a hard time with transitional movements. Pain will also limit her sleeping at times. Pt states she has been seeing neuro. Taking anti inflammatory as directed. States she also has baclofen and gabapentin PRN. Precautions: right sided low back pain Subjective: right lumbar region lateral hip painful. I have a hour drive now and sitting really bothers my back Pain: 11/13 Objective: PT Evaluation (01/24/2025) LUMBAR SPINE AROM: flex fingers to knees with increase right lumbar pain, mild discomfort end range extension, increase right low back pain at end range right and left SB; right hip IR ROM limited compared to left Joint play: hypermobility noted lower lumbar region Strength: bilateral hips 4/5; core strength is fair Palpation: moderate tenderness right lower lumbar paraspinals, moderate tenderness bilateral SIJ. Special Test: negative slump testing bilateral; however, neuro tension present right LE. Negative SLR bilateral. Negative SI compression and distraction testing. Negative DALIA testing bilateral Neurological: Reflexes: 2 bilateral patellar Myotomes: intact Dermatomes: intact Special Test: negative clonus bilateral Treatment Manual Therapy: (10 minutes ) Delivered manual ther to pt in prone, PA mobs, sacral distractions, STM to paraspinals to reduce muscle tone Therapeutic Exercise: (19 minutes) Guided pt through Hank phase I ther and flex ex per grid to improve lumbar stability, strength and functional mobility , reviewed HEP Therapeutic Activity: Exercises to improve dynamic activities, functional tasks, functional mobility to return to prior activity level as needed. Neuromuscular re-education: Balance Training, Muscle Facilitation, Dynamic Stability, Core Stabilization, and Blood Flow Restriction Training (BFRT) as needed. Modalities: (10 minutes ) CP in prone at end of session to reduce inflammation and muscle soreness Assessment: Pt is 24 y/o female with complaints of chronic low back pain with radicular pain into RLE/hip. Complains of low back pain with greater pain in the R posterior hip this date up to 11/13. Pt with significantly limited trunk flexion ROM. Moderate tenderness bilateral SIJ; however, compression and distraction testing are negative. Continued with Hank phase I prone progression of lumbar extension. Tolerated manual ther well. Discussed importance of HEP participation, icing and posture in sitting / standing while at work tominimize strain on lower lumbar region. Reassess 24 hour response and progress accordingly Outcome Measure: Back Index: 25/50 Rehab Diagnosis: low back pain, bilateral hip pain and weakness, limited ROM and mobility Short Term Goal: To be met in 2 weeks Goal 1: Pt to be instructed in home exercise program. Longterm Goals: To be met in 10 weeks Goal 1: Pt to report independence and compliance with home program. Goal 2: Pt to report pain no greater than 2/10 with function tasks, ADL's, and work related activities. Goal 3: Pt to have full trunk ROM without complaints of increase pain at end ranges to assist with functional tasks. Goal 4: Pt to score no greater than 10/50 on Back Index indicating improved QOL. Goal 5: Pt to achieve 4+/5 strength bilateral hips to assist with functional tasks such as squatting. Goal 6: Pt to demo good core strength for improved lumbar stability. Pt will benefit from skilled PT for 1-2x/week from 01/24/2025 to 04/18/2025 to address the above impairments. I hereby deem this POC medically necessary. Please sign below. Date: Cosigned by Delia Kwan PT at 01/28/2025 2:37 PM EDT documented in this encounter Plan of Treatment Upcoming Encounters Date Type Department Care Team (Late st Contact Info) Description 02/14/2025 5:30 PM EDT Office Visit [facility] [address] [place] [address] Jovita Salas CNM [address] [place], [place] [id number] 02/15/2025 6:00 PM EDT Treatment [facility] [address] [facility] [place] [address] Kem Costa PTA 02/24/2025 6:00 PM EDT Treatment [facility] [address] [facility] [address] [place] [address] Ofelia Blakely, NATI 02/28/2025 6:00 PM EDT Treatment [facility] [address] [facility] [address] [place] [address] Delia Kwan, PT documented as of this encounter Visit Diagnoses Diagnosis Sacrococcygeal disorders, not elsewhere classified- Primary documented in this encounter Care Teams Journalism Intern Relationship Specialty Start Date End Date Destinee Britton MD [address] [place] [address] PCP - General Family Medicine 11/12/22 documented as of this encounter
--- OUTSIDE RECORDS SUMMARY | 2025-02-01 18:00 | XMS_ITS | Encounter Summary ---
Author Organization [facility] Address [address] [place] [address] Care Team Providers Care Die Try Out Worker Stamping Name Role Phone Destinee Britton MD Primary Care Provider [phone] Reason for Visit * Rehabilitation - Outpatient (Routine) - Authorized Specialty Diagnoses / Procedures Referred By Contac t Referred To Contact Physical Therapy Diagnoses Sacrococcygeal disorders, not elsewhere classified Procedures [place] PHYSICAL THERAPY EVALUATION LOW COMPLEX 20 MINS [place] OFFICE/OUTPATIENT NEW HIGH MDM 60 MINUTES Feliz Musa MD [address] [place] [address], [address] [place] [address] Phone: tel: fax: Delia Kwan PT Referral ID Status Reason Start Date Expiration Date V isits Requested Visits Authorized [id number] Authorized 01/24/2025 03/24/2025 6 6 Encounter Details Date Type Department Care Team (Latest Contact Info) Description 02/01/2025 6:00 PM EDT Treatment [facility] [address] [facility] [address] [place] [address] Kem Costa PTA Sacrococcygeal disorders, not elsewhere classified (Primary Dx) [...] week 05/20/2024 How often do you attend faith or buddhist serv ices? Never 05/20/2024 Do you belong to any clubs o r organizations such as faith groups, unions, fraternal or athletic groups, or [...] Recorded Patient Health Questionnaire-2 Score 0 05/20/2024 [facility] of Occupat ional Health - Occupational [...] were you homeless or living in a penitentiary (including now)? No 05/20/2024 Comments No Sex and Gender Information Value Date Recorded Sex Assigned at Female 06/25/2023 1:54 PM EST Legal Sex Female 6:57 PM EDT Gender Identity Female 06/25/2023 1:54 PM EST Sexual Orientation Not on file documented as of this encounter Progress Notes * Kem Costa, PLANER OPERATOR / GRADER - 02/01/2025 6:00 PM EDT Images from the original note were not included. Physical Therapy Treatment Visit Patient Name: Edwige Patterson Today's Date: 02/01/2025 Encounter Diagnoses Name Primary? Sacrococcygeal disorders, not elsewhere classified Yes Visit number: 3 Timed Code Treatment: 40 minutes Total Treatment Time: 50 minutes Time In: 6:00 PM Time Out: 6:50 PM History: Pt states she has been [...] Subjective: right lumbar region lateral hip painful. Pt reports she had to leave work early yesterday because of high pain. Pain: 11/13 Objective: PT Evaluation (01/24/2025) LUMBAR [...] Test: negative clonus bilateral Treatment Manual Therapy: (15 minutes ) Delivered manual ther to pt in prone, PA mobs, sacral distractions, STM to paraspinals to reduce muscle tone Therapeutic Exercise: (25 minutes) Guided pt through Hank phase I [...] progression of lumbar extension. Tolerated manual ther well, some tenderness to touch. Re-ed HEP participation, icing and posture in sitting / standing while at work to minimize strain on lower lumbar region. Pt is to continue PT, has to call to schedule more visits. Outcome Measure: Back Index: 25/50 Rehab Diagnosis: low back pain, bilateral hip pain and weakness, limited ROM and mobility Short Term Goal: To be met in 2 weeks Goal 1: Pt to be instructed in home exercise program. [facility] Goals: To be met in 10 weeks [...] Date: Cosigned by Delia Kwan PT at 02/02/2025 5:34 PM EDT documented in this encounter Plan of Treatment Upcoming Encounters Date Type Department Care Team (Late st Contact Info) Description 02/14/2025 5:30 PM EDT Office Visit [facility] [address] [place] [address] Jovita Salas CNM [address] [place] [address] 02/15/2025 6:00 PM EDT Treatment [facility] [address] [place] [address] [place] [address] Kem Costa PTA 02/24/2025 6:00 PM EDT Treatment [facility] [address] [facility] [address] [place] [address] Ofelia Blakely, PLANER OPERATOR / GRADER 02/28/2025 6:00 PM EDT Treatment [facility] [address] [facility] [address] [place] [address] Delia Kwan, PT documented as of this encounter Visit Diagnoses Diagnosis Sacrococcygeal disorders, not elsewhere classified- Primary documented in this encounter Care Teams Die Try Out Worker Stamping Relationship Specialty Start Date End Date Destinee Britton MD [address] [place] [address] PCP - General Family Medicine 11/12/22 documented as of this encounter
--- OUTSIDE RECORDS SUMMARY | 2025-02-10 08:27 | XMS_ITS | Encounter Summary ---
Author Organization [facility] Address [address] [facility] [place] [address] Care Team Providers Care Fiscal Manager Name Role Phone Destinee Britton MD Primary Care Provider [phone] Encounter Details Date Type Department Care Team (Late st Contact Info) Description 12/17/2024 Results Follow-Up [facility] [address] [place] [address] Ness Montez NP [address] [place], [place] [id number] Social History Tobacco Use Types Packs/Day Years [...] week 05/20/2024 How often do you attend oriental orthodox or zoroastrianism serv ices? Never 05/20/2024 Do you belong to any clubs o r organizations such as oriental orthodox groups, unions, fraternal or athletic groups, or [...] Recorded Patient Health Questionnaire-2 Score 0 05/20/2024 [facility] of Occupat ional Health - Occupational Stress [...] any time in the past [address] [facility], were you homeless or living in a [...] PM EDT Office Visit [facility] [address] [place] [address] Jovita Salas CNM [address] [place] [address] 02/15/2025 6:00 PM EDT Treatment [facility] [address] [facility] [address] [place] [address] Kem Costa, BROOCH AND BRACELET MAKER 02/24/2025 6:00 PM EDT Treatment [facility] [address] [facility] [address] [place] [address] Ofelia Blakely, BROOCH AND BRACELET MAKER 02/28/2025 6:00 PM EDT Treatment [facility] [address] [facility] [address] [place] [address] Delia Kwan, PT documented as of this encounter Visit Diagnoses Not on filedocumented in this encounter Care Teams Fiscal Manager Relationship Specialty Start Date End Date Destinee Britton MD [facility] [place] [address] PCP - General Family Medicine 11/12/22 documented as of this encounter
--- OUTSIDE RECORDS SUMMARY | 2025-02-10 08:27 | XMS_ITS | Encounter Summary ---
Author Organization [facility] Address [address] [place] [address] Care Team Providers Care Regrader Name Role Phone Destinee Britton MD Primary Care Provider [phone] Encounter Details Date Type Department Care Team (Late st Contact Info) Description 02/01/2025 Bamboo flowsheet [facility] [address] [facility] [address] [place] [address] Kem Costa PTA Social History Tobacco Use Types Packs/Day Years [...] week 05/20/2024 How often do you attend synagogue or rastafarian serv ices? Never 05/20/2024 Do you belong to any clubs o r organizations such as synagogue groups, unions, fraternal or athletic groups, or [...] Recorded Patient Health Questionnaire-2 Score 0 05/20/2024 [facility] of Occupat ional Health - [...] any time in the past 12 m [facility], were you homeless or living in a fpc (including now)? No 05/20/2024 Comments No Sex [...] PM EDT Office Visit [facility] [address] [place] [address] Jovita Salas CNM [address] [place] [address] 02/15/2025 6:00 PM EDT Treatment [facility] [address] [facility] [address] [place] [address] Igor Kem, PAINTING AND COATING WORKER 02/24/2025 6:00 PM EDT Treatment [facility] [address] [place] [address] [place] [address] Ofelia Blakely, PAINTING AND COATING WORKER 02/28/2025 6:00 PM EDT Treatment [facility] [address] [place] [address] [place] [address] Delia Kwan, PT documented as of this encounter Visit Diagnoses Not on filedocumented in this encounter Care Teams Regrader Relationship Specialty Start Date End Date Destinee Britton MD [address] [place] [address] PCP - General Family Medicine 11/12/22 documented as of this encounter
--- OUTSIDE RECORDS SUMMARY | 2025-02-10 08:27 | XMS_ITS | Encounter Summary ---
Author Organization [facility] Address [address] [place] [address] Care Team Providers Care Insurance Account Assistant Name Role Phone Destinee Britton MD Primary Care Provider [phone] Encounter Details Date Type Department Care Team (Latest Contact Info) Description 02/01/2025 Travel Social History Tobacco Use Types Packs/Day [...] week 05/20/2024 How often do you attend jainism or catholic serv ices? Never 05/20/2024 Do you belong to any clubs o r organizations such as jainism groups, unions, fraternal or athletic groups, or [...] Recorded Patient Health Questionnaire-2 Score 0 05/20/2024 [facility] [place] of Occupat ional Health - Occupational Stress [...] any time in the past 12 m [facility], were you homeless or living [...] Description 02/14/2025 5:30 PM EDT Office Visit [facility] [address] [place] [address] Jovita Salas CNM [address] [facility] [place], [place] [id number] 02/15/2025 6:00 PM EDT Treatment [facility] [address] [facility] [address] [place] [address] Kem Costa, METAL GRADER 02/24/2025 6:00 PM EDT Treatment [facility] [address] [facility] [address] [place] [address] Zora Ofelia, METAL GRADER 02/28/2025 6:00 PM EDT Treatment [facility] [address] [facility] [address] [place] [address] Delia Kwan, PT documented as of this encounter Visit Diagnoses Not on filedocumented in this encounter Care Teams Insurance Account Assistant Relationship Specialty Start Date End Date Destinee Britton MD [address] [facility], [place] [phone] PCP - General Family Medicine 11/12/22 documented as of this encounter
--- NOTE | 2025-02-10 08:28 | PM.CN ---
Consult Note: HPI Data of Consult Patient: known to practice within the last 3 years Requesting Physician: Jazmin Yanez NP Primary Care Provider: Vidal Romeo, Consult Narrative Reason for consult: f/u Narrative: Edwige tellez pleasant 24 year old female presents for evaluation of chronic low back pain secondary to bulging disc, lumbar ddd, and lumbar spondylosis. continues to utilize heat, ice, baclofen, gabapentin. cannot take tylenol due to elevated liver enzymes. pain today 2/10 increasing to 8/10 in right greater than left low back. increased pain standing, walking, sitting, with activity, and sleep. finds benefit to PRN chiropractor care. on 12/27/24 underwent Right L4-5, L5-S1 transforaminal epidural steroid injection with significant improvement in radicular pain. pt was recently evaluated by CHANTAL who recommends no surgical intervention, but bilateral SIJ injections. cc:: CC: Jazmin Yanez NP [facility] Medical History (Updated 02/10/25 @ 08:45 by Jazmin Yanez NP) Low back pain ?M54.50 - Low back pain, unspecified (ICD-10) Depression ?F32.A - Depression, unspecified (ICD-10) PCOS (polycystic ovarian syndrome) ?E28.2 - Polycystic ovarian syndrome (ICD-10) Surgical History History of ankle surgery ?Z98.890 - Other specified postprocedural states (ICD-10) Social History Little interest or pleasure in doing things: not at all Feeling down, depressed, or hopeless: not at all Meds Home Medications and Allergies Home Medications ?Medication ?Instructions ?Recorded ?Confirmed ?Type bupropion HCl 300 mg 24 hr tablet, 300 mg PO DAILY 08/16/24 12/27/24 History extended release etodolac 400 mg tablet (Lodine) 400 mg PO BID 08/16/24 12/27/24 History norgestimate 0.18 mg/0.215mg/0.25 1 tab PO DAILY 08/16/24 12/27/24 History mg-ethinyl estradiol 0.025 mg tablet (Chc-Ab-Kcjdxb) gabapentin 300 mg capsule 300 mg PO TID #90 caps 11/24/24 12/27/24 Rx ondansetron 4 mg disintegrating 4 mg PO Q6H PRN nausea and 11/28/24 12/27/24 Rx tablet vomiting #20 tabs baclofen 10 mg tablet 10 mg PO Q8H PRN spasms 12/27/24 12/27/24 History Allergies Allergy/AdvReac Type Severity Reaction Status Date / Time No Known Drug Allergies Allergy Verified 12/27/24 09:39 Exam Constitutional Documenting provider has reviewed patient's vital signs: yes Common normals: no apparent distress, oriented x3, healthy appearing, alert and well nourished General appearance: cooperative HENMT Common normals: normocephalic, hearing grossly normal bilaterally and moist oral mucous membranes Head and scalp: normocephalic Eye Common normals: PERRL Pupil: PERRL Neck & C-Spine Common normals: full ROM General: normal visual inspection Chest Common normals: inspection of chest normal Respiratory Common normals: normal respiratory effort, no retractions and no use of accessory muscles Back & Pelvis Lumbar spine/lower back: ROM limited, pain with ROM, lumbar spinal tenderness and straight leg raise negative bilaterally Sacroiliac joints: SI joint(s) abnormal Other: right > left positive jarod(patricks), gaenslens, thigh thrust, compression test strength 5/5 in BLE sensation intact BLE positive L4-S1 facet loading and tenderness Neuro Common normals: oriented x3 Sensorium/orientation: alert Psych Common normals: mental status grossly normal, thought process normal, cooperative, affect normal, speech normal and activity/motor behavior normal Speech: normal speech Thought process: normal thought process Results Additional Findings Additional findings: If on a controlled substance or opioids, I have checked an [place]AR[place] report on this patient and there are no aberrancies noted in the prescribing history.??If on a controlled substance or opioid a drug screen was completed and reviewed within the last year, and if there has not been a drug screen completed we ordered one today to monitor higher risk, state monitored pain medication use. As part of providing excellent, safe, comprehensive care, the following was completed at our patient's visit: 1. A medication reconciliation and review to ensure accurate knowledge of current/active medications, including asking our patients to inform us about any nvbt-slr-yplbilu medications or herbal remedies/nutritional supplements/alternative remedies. 2. A review to specifically ensure our patients have had annual screening for screening for depression, screening for tobacco use, and screening for unhealthy alcohol use. For concerning screenings had a discussion with the patient, provided patient education, and recommended follow-up with primary care provider when appropriate. If patient noted with a risk of falling, they received education on strength, gait, and balance training to prevent future risk of falling. Portions of this note may have been carried over from the previous visit and updated as appropriate. Please note this office utilizes paper charting in addition to the electronic medical record. A list of current medications, vitals, and PMH is available there as the clinical staff outside of myself do not have access to IFTTT charting during the clinic day operations. As part of providing quality comprehensive care the current medications, vitals, and PMH were reviewed in the paper chart. Assessment and Plan Assessment and Plan (1) Sacroiliitis: Assessment and Plan: The patient has had over 3 months of moderate to severe low back and bilateral SIJ pain with functional impairment and inadequate response to conservative care including NSAIDS (unless there are contraindication such as concurrent blood thinners), multiple oral or topical pain medications, and home exercise program/physical therapy.? Patient has completed >6 weeks of guided home exercise program and/or formal physical therapy program without relief of their symptoms.? The Oswestry Disability Index was completed, and the patient scored a 24%.? We discussed the risks and benefits of the procedure with the patient, and we are NOT planning on using sedation as outlined in the guidelines from Medicare unless there is a documented reason that sedation would be strongly recommended.?The procedure will be completed with fluoroscopic guidance.? (2) Lumbar spondylosis: (3) Myalgia, other site: (4) Lumbar stenosis with neurogenic claudication: Plan bilateral SIJ injection under fluoroscopy continue current medications continue HEP as tolerated and PT as tolerated f/u 2 weeks after injection
--- OUTSIDE RECORDS SUMMARY | 2025-02-10 08:28 | XMS_ITS | Clinical Summary ---
Author Organization [facility] Address [address] [facility], [address] [place] [address] Care Team Providers Care Pull Out Operator Name Role Phone Ottoniel Romeo Primary Care Provider [phone] Allergies No known active allergies Medications buPROPion [...] supply: 30 days 27 capsule 08/05/2024 Active Encounters Date Type Department Care Team Description 11/24/2024 1:09 PM EDT - 11/24/2024 2:32 PM EDT Emergency [facility] Emergency Department [address] [place] [address] Acute exacerbation of chronic low back pain [...] 05/19/2023 05/19/2013, 04/03/2006, 03/03/2006, Additional history exists Flu vaccine (#1) 02/04/2025 04/29/2024, 10/2019, 07/17/2018 Hib vaccine Completed 09/17/2001, 12/05, 2000, Additional history exists Hepatitis B vaccine Completed 04/03/2006, 03/03/2006, 2000, Additional history exists Polio vaccine Completed 04/03/2006, 02/05, 2000, Additional history exists Varicella vaccine Completed 05/19/2013, 04/03/2006 Meningococcal (ACWY) vaccine Completed 03/02/2018, 05/19/2013 COVID-19 Vaccine Completed 04/29/2024, , 11/18/2020 Hepatitis A vaccine Aged Out No longe r eligible based on patient's age to complete this topic Meningococcal B vaccine Aged Out No l onger eligible based on patient's age to complete this topic Pneumococcal 0-49 years Vaccine Aged Out No longer eligible based on patient's age to complete this topic [place] [address] [place] [address] Care Teams Pull Out Operator Relationship Specialty Start Date End Date Ottoniel Romeo DO [address] [place] [address];[address] [place], [place] [id number] PCP - General Family Medicine 07/20/24
--- OUTSIDE RECORDS SUMMARY | 2025-02-10 08:28 | XMS_ITS | Clinical Summary ---
Author Organization [facility] Address [address] [facility] [place] [address] Care Team Providers Care Piece Presser Name Role Phone Destinee Britton MD Primary Care Provider [phone] Allergies No known active allergies Medications hydrOXYzine pamoate (Vistaril) 25 MG capsule Take 25 mg by mouth 3 (three) times a day as needed 04/22/20 24 Active metFORMIN (Glucophage) 500 MG tabletIndications :PCOS [...] 1,000 mg by mouth 08/05/19 25 Active ondansetron ODT (Zofran-ODT) 4 MG disintegrating [...] evening and 300 mg before bedtime. 11/25/19 Active norgestimate-ethi nyl estradiol (Sprintec 28) 0.25-35 MG-MCG tabletIndications :Encounter for initial prescription of contraceptive pills Take 1 tablet by mouth Daily 90 tablet 01/19/20 25 2025 Active Norgestimate-Eth Estradiol (Syo-Zo-Fxvjya) 0.18/0.215/0.25 MG-25 MCG tabletIndications :Unwanted fertility TAKE 1 TABLET BY MOUTH EVERY DAY 84 tablet 01/27/20 25 Active norgestimate-ethi nyl estradiol (Ortho Tri-Cyclen LO) 0.18/0.215/0.25 MG-25 MCG tabletIndications :Unwanted fertility Take 1 tablet by mouth Daily 90 tablet 1 08/10/19 25 2024 Discontinued Active Problems Problem Noted Date Diagnosed Date [...] Encounters Date Type Department Care Team Description 02/01/2025 6:00 PM EDT Treatment [facility] [address] [facility] [address] [place] [address] Kem Costa PTA Sacrococcygeal disorders, not elsewhere classified (Primary Dx) 02/01/2025 Bamboo flowsheet [facility] [address] [place] [address] [place] [address] Kem Costa PTA 02/01/2025 Travel 01/27/2025 6:00 PM EDT Treatment [facility] [address] [place] [address] [place] [address] Zora, Ofelia, BRIDGE TEACHER Sacrococcygeal disorders, not elsewhere classified (Primary Dx) 01/27/2025 Bamboo flowsheet [facility] [address] [place] [place] [address] Daniloy, Ofelia, BRIDGE TEACHER 01/27/2025 Travel 01/25/2025 Plan of Care Documentation [facility] [address] [place] [address] [place] [address] 01/24/2025 6:00 PM EDT Evaluation [facility] [address] [facility] [address] [place] [address] Delia Kwan, PT Sacrococcygeal disorders, not elsewhere classified (Primary Dx) 01/24/2025 Bamboo flowsheet [facility] [address] [facility] [address] [place] [address] Delia Kwan, PT 01/24/2025 Travel 01/22/2025 Refill [facility] [address] [place] [address] Jovita Salas, ALEJANDRAM Unwanted fertility 01/21/2025 Travel 01/11/2025 Refill [facility] [place] [address] Destinee Britton MD Encounter for initial prescription of contraceptive pills 12/17/2024 Results Follow-Up [facility] [address] [place] [phone] Ness Montez NP 12/15/2024 8:15 AM EDT Ancillary Procedure [facility] [address] [facility] [address] [place] [phone] Elevated liver enzymes 12/15/2024 Travel 12/06/2024 Results Follow-Up [facility] [address] [place] [address] Ness Montez NP Elevated liver enzymes (Primary Dx) 12/03/2024 2:00 PM EDT [facility] [address] [facility] [place] [address] [place] [phone] Pain of upper abdomen 12/03/2024 1:30 PM EDT [facility] [address] [place] [address] Ness Montez NP Nausea (Primary Dx); Pain of upper abdomen 12/03/2024 Travel 12/03/2024 [facility]phone [facility] [address] [place] [address] Destinee Britton MD 11/25/2024 [facility] [address] [place] [address] Ladan Kramer MA Contraception from Last [...] week 05/20/2024 How often do you attend methodist or hoahaoism serv ices? Never 05/20/2024 Do you belong to any clubs o r organizations such as methodist groups, unions, fraternal or athletic groups, or [...] Recorded Patient Health Questionnaire-2 Score 0 05/20/2024 [facility] - Occupational [...] any time in the past 12 m [place] [place], were you homeless or living in a custodial (including now)? No 05/20/2024 Comments No Sex [...] 02/14/2025 5:30 PM EDT Office Visit [facility] [address] [place] [address] Jovita Salas, WILLOW [address] [place] [address] 02/15/2025 6:00 PM EDT Treatment [facility] [address] [facility] [address] [place] [address] Igor Kem, BRIDGE TEACHER 02/24/2025 6:00 PM EDT Treatment [facility] [address] [facility] [address] [place] [address] Ofelia Blakely, BRIDGE TEACHER 02/28/2025 6:00 PM EDT Treatment [facility] [address] [facility] [address] [place] [address] Delia Kwan, PT Health Maintenance Due Date Last Done Comments Influenza Vaccine (#1) 2025 04/29/2024, 2019, 07/17/2018 Procedures Procedure Name Priority Date/Time Associated Diagnosis Comments EXTRA LAVENDER-TOP TUBE Routine 12/16/19 8:36 AM EDT PROTHROMBIN TIME-INR Routine 12/15/2024 8:36 AM EDT Elevated liver enzymes CYTOMEGALOVIRUS ANTIBODY, IGM Routine 12/15/2024 8:36 AM EDT Elevated liver enzymes AYAAN-MAJOR VIRUS VCA, IGM Routine 12/15/2024 8:36 AM [...] Performing Organization Information Site ID: PB Name: [facility] Address: [address] [address] Director: Ashley Harris M.D. Ness Montez HEAT REGULATOR LAB BLOOD ORDERABLES Final Resu lt [facility] * Cytomegalovirus antibody, IgM (12/15/2024 8:36 AM EDT) CYTOMEGALOVIRUS ANTIBODY (IGM) <30.00 AU/mL [facility] Comment: [...] Performing Organization Information Site ID: QPT Name: [facility] Address: [address] [place] [address], [address] [place] [phone] Director: Ramana Taylor MD Ness Montez HEAT REGULATOR LAB BLOOD ORDERABLES Final Resu lt [facility] * Hepatitis panel, acute (12/15/2024 8:36 AM EDT) HEPATITIS A IGM NON-REACTI VE NON-REACT AUGUSTINE [facility] Comment: For additional information, please refer to http://Ad Summos/faq/JEM820 (This link is being provided for informational/ educational purposes only.) HEPATITIS B SURFACE ANTIGEN NON-REACTI VE NON-REACT AUGUSTINE [facility] Comment: For additional information, please refer to http://Ad Summos/faq/RTR270 (This link is being provided for informational/ educational purposes only.) HEPATITIS B CORE ANTIBODY (IGM) NON-REACTI VE NON-REACT AUGUSTINE [facility] Comment: For additional information, please refer to http://Ad Summos/faq/TIT468 (This link is being provided for informational/ educational purposes only.) HEPATITIS C ANTIBODY NON-REACTI VE NON-REACT AUGUSTINE [facility] Comment: HCV antibody was non-reactive. There is no laboratory evidence of HCV infection. In most cases, no further action is required. However, if recent HCV exposure is suspected, a test for HCV RNA (test code 31654) is suggested. For additional information please refer to http://Ad Summos/faq/TEP40l1 (This link is being provided for informational/ educational purposes only.) Blood Venous blood specimen / Unknown 12/15/2024 8:36 AM EDT 12/15/2024 2:14 PM EDT Narrative Resulting Agency Comment Performing Organization Information Site ID: QPT Name: [facility] Address: [address] [place] [address], [address] [place] [phone] Director: Ramana Taylor MD Ness Montez NP LAB BLOOD ORDERABLES Final Resu [facility] * Ayaan-Major virus VCA, IgM (12/15/2024 8:36 AM EDT) EBV VIRAL CAPSID AG (VCA) AB (IGM) <36.00 U/mL [facility] Comment: U/mL Interpretation ---- <36.00 Negative 36.00-43.99 Equivocal >43.99 Positive Blood Venous blood specimen / Unknown 12/15/2024 8:36 AM EDT 12/15/2024 2:14 PM EDT Narrative Resulting Agency Comment Performing Organization Information Site ID: QPT Name: [facility] Address: [address] [facility], [address] [place] [phone] Director: Ramana Taylor MD [facility] LAB BLOOD ORDERABLES Final Resu lt Performing Organization Address [facility] de Phone Number [facility] * Protime-INR (12/15/2024 8:36 AM EDT) INR 1.0 [facility] Comment: Reference Range 0.9-1.1 Moderate-intensity Warfarin Therapy 2.0-3.0 Higher-intensity Warfarin Therapy 3.0-4.0 PT 10.2 9.0 - 11.5 sec [facility] Comment: For additional information, please refer to http://education.Quovo/faq/KDW987 (This link is being provided for informational/ educational purposes only.) Blood Venous blood specimen / Unknown 12/15/2024 8:36 AM EDT 12/15/2024 2:14 PM EDT Narrative Resulting Agency Comment Performing Organization Information Site ID: QTW Name: [facility] Address: [address] [place] [phone] Director: Lashawn Hoyt [facility] LAB BLOOD ORDERABLES Final Resu lt Performing Organization Address [facility] de Phone Number [facility] * BAR [...] AC-0: Negative International Consensus on BAR Patterns (https://doi.org/10.1515/rlch-4423-3728) For additional information, please refer to http://education.Reward Gateway/faq/PDY222 (This link is being provided for informational/ educational purposes only.) Blood Venous blood specimen / Unknown 12/15/2024 8:36 AM EDT 12/15/2024 2:14 PM EDT Narrative Resulting Agency Comment Performing Organization Information Site ID: QPT Name: [facility] Address: [address] [place] [address], [address] [place] [phone] Director: Ramana Taylor MD [facility] HEAT REGULATOR LAB BLOOD ORDERABLES Final Resu lt Performing Organization Address [facility] Co de Phone Number [facility] * (ABNORMAL) ALT (12/15/2024 8:36 AM EDT) ALT 33(H) 6 - 29 U/L [facility] Blood Venous blood specimen / Unknown 12/15/2024 8:36 AM EDT 12/15/2024 2:14 PM EDT Narrative Resulting Agency Comment Performing Organization Information Site ID: QTW Name: [facility] Address: [address] [place] [phone] Director: Lashawn Hoyt [facility] HEAT REGULATOR LAB BLOOD ORDERABLES Final Resu lt Performing Organization Address [facility] Co de Phone Number [facility] * AST (12/15/2024 8:36 AM EDT) AST 17 10 - 30 U/L [facility] Blood Venous blood specimen / Unknown 12/15/2024 8:36 AM EDT 12/15/2024 2:14 PM EDT Narrative Resulting Agency Comment Performing Organization Information Site ID: QTW Name: [facility] Address: [address] [place] [phone] Director: Lashawn Hoyt [facility] Major HEAT REGULATOR LAB BLOOD ORDERABLES Final Resu lt [facility] * Ferritin (12/15/2024 8:36 AM EDT) FERRITIN 28 16 - 154 ng/mL [facility] Blood Venous blood specimen / Unknown 12/15/2024 8:36 AM EDT 12/15/2024 2:14 PM EDT Narrative Resulting Agency Comment Performing Organization Information Site ID: QPT Name: [facility] Address: [address] [place] [address], [address] [place] [phone] Director: Ramana Taylor MD us [facility] HEAT REGULATOR LAB BLOOD ORDERABLES Final Resu lt Performing Organization Address [facility]/ZIP Co de Phone Number [facility] * US LIVER (12/15/2024 8:32 AM [...] II, MD, PHD at 17-Dec-2024 10:25:11 AM [facility] Procedure Note Siri Avery MD - [...] signed by SIRI AVERY II, MD, PHD [id number] 10:25:11 AM [facility] us Ness Majors HEAT REGULATOR IMG US PROCEDURES Final Result * XR ABDOMEN [...] calcification. IMPRESSION: Negative abdominal series Ness Montez HEAT REGULATOR IMG XR PROCEDURES Final Result * NOTE (12/03/2024 2:26 PM EDT) NOTE [facility] Comment: This urine was analyzed for the presence of WBC, RBC, bacteria, casts, and other formed elements. Only those elements seen were reported. 12/03/2024 2:26 PM EDT 12/03/2024 2:27 PM EDT Narrative Resulting Agency Comment Performing Organization Information Site ID: QPT Name: [facility] Address: [address] [place] [address], [address] [place] [phone] Director: Ramana Taylor MD Ness Montez HEAT REGULATOR [facility] Final Result Performing Organization Address City/State/[facility] Co de Phone Number [facility] * (ABNORMAL) Urinalysis [...] Performing Organization Information Site ID: QPT Name: [facility] Address: [address] [place] [address], [address] [place] [phone] Director: Ramana Taylor MD [facility] HEAT REGULATOR LAB URINE ORDERABLES Final Resu lt Performing Organization Address [facility] de Phone Number [facility] * Urine culture (clean catch) (12/03/2024 2:26 PM EDT) [facility] MICRO NUMBER [id number] [facility] SPECIMEN QUALITY Adequate [facility] SOURCE: (QUEST) URINE [facility] STATUS FINAL [facility] RESULT SEE NOTE [facility] Comment: No Growth Urine Urine specimen obtained by clean catch procedure / Unknown 12/03/2024 2:26 PM EDT 12/03/2024 2:27 PM EDT Narrative Resulting Agency Comment Performing Organization Information Site ID: QPT Name: [facility] Address: [address] [place] [address], [address] [place] [phone] Director: Ramana Taylor MD [facility] LAB MICROBIOLOGY - GENERAL ORDE RABLES Final Result Performing Organization Address [facility] de Phone Number [facility] * CBC and differential (12/03/2024 2:25 PM EDT) [facility] WHITE BLOOD CELL COUNT 6.8 3.8 - [...] Performing Organization Information Site ID: QPT Name: [facility] Address: [address] [place] [address], [address] [place] [phone] Director: Ramana Taylor MD Ness Montez HEAT REGULATOR LAB BLOOD ORDERABLES Final Resu lt [facility] * (ABNORMAL) Comprehensive metabolic panel (12/03/2024 2:25 PM EDT) [facility] Glucose 76 65 - 99 mg/dL [facility] [...] Performing Organization Information Site ID: QPT Name: [facility] Address: [address] [place] [address], [address] [place] [phone] Director: Ramana Taylor MD Ness Montez HEAT REGULATOR LAB BLOOD ORDERABLES Final Resu lt [facility] * POCT , urine (12/03/2024 2:21 PM EDT) Preg Test, Ur Negative Negative Urine 12/03/2024 2:21 PM EDT us Ness Montez HEAT REGULATOR POINT OF CARE TEST ENTER/EDIT O RDERABLES [...] Urine 12/03/2024 2:21 PM EDT Ness Montez HEAT REGULATOR POINT OF CARE TEST ENTER/EDIT O RDERABLES Final Result from Last 3 Months Insurance BS Care Teams Piece Presser Relationship Specialty Start Date End Date Destinee Britton MD [address] [place] [address] PCP - General Family Medicine 11/12/22
--- OUTSIDE RECORDS SUMMARY | 2025-02-10 08:28 | XMS_ITS | Encounter Summary ---
Author Organization [facility] Address [address] [place] [address] Care Team Providers Care Director Dance Name Role Phone Destinee Britton MD Primary Care Provider [phone] Encounter Details Date Type Department Care Team (Late st Contact Info) Description 09/10/2024 Telephone [facility] [address] [place] [address] Jovita Salas, [facility] [address] [place], [place] [phone] Social History Tobacco Use Types Packs/Day Years [...] week 05/20/2024 How often do you attend rastafari or hinduism serv ices? Never 05/20/2024 Do you belong to any clubs o r organizations such as rastafari groups, unions, fraternal or athletic groups, or [...] Recorded Patient Health Questionnaire-2 Score 0 05/20/2024 [facility]at ional Health - [...] Office Visit [facility] [address] [place] [address] Jovita Salas, WILLOW [address] [place] [address] 02/15/2025 6:00 PM EDT Treatment [facility] [address] [facility] [address] [place] [address] Kem Costa, ORGAN PIPE VOICER 02/24/2025 6:00 PM EDT Treatment [facility] [address] [facility] [address] [place] [address] Ofelia Blakely, ORGAN PIPE VOICER 02/28/2025 6:00 PM EDT Treatment [facility] [address] [facility] [address] [place] [address] Delia Kwan, PT documented as of this encounter Visit Diagnoses Not on filedocumented in this encounter Care Teams Director Dance Relationship Specialty Start Date End Date Destinee Britton MD [address] [place] [address] PCP - General Family Medicine 11/12/22 documented as of this encounter
--- OUTSIDE RECORDS SUMMARY | 2025-02-10 08:28 | XMS_ITS | Encounter Summary ---
Author Organization [facility] Address [address] [place] [address] Care Team Providers Care Hyperbaric Nurse Name Role Phone Destinee Britton MD Primary Care Provider [phone] Encounter Details Date Type Department Care Team (Latest Contact Info) Description 01/27/2025 Travel Social History Tobacco Use Types Packs/Day [...] week 05/20/2024 How often do you attend latter-day or congregation serv ices? Never 05/20/2024 Do you belong to any clubs o r organizations such as latter-day groups, unions, fraternal or athletic groups, or [...] Recorded Patient Health Questionnaire-2 Score 0 05/20/2024 [facility] Occupat ional Health - Occupational [...] any time in the past 12 m [facility], were you homeless or living in a long-term (including now)? No 05/20/2024 Comments No Sex [...] Office Visit [facility] [address] [place] [address] Jovita Salas CNM [address] [facility] [place], [place] [phone] 02/15/2025 6:00 PM EDT Treatment [facility] [address] [facility] [address] [place] [address] Kem Costa, FORGEMAN HELPER 02/24/2025 6:00 PM EDT Treatment [facility] [address] [facility] [address] [place] [address] Zora Ofelia, FORGEMAN HELPER 02/28/2025 6:00 PM EDT Treatment [facility] [address] [facility] [address] [place] [address] Delia Kwan, PT documented as of this encounter Visit Diagnoses Not on filedocumented in this encounter Care Teams Hyperbaric Nurse Relationship Specialty Start Date End Date Destinee Britton MD [address] [facility], [place] [phone] PCP - General Family Medicine 11/12/22 documented as of this encounter
--- OUTSIDE RECORDS SUMMARY | 2025-02-10 08:28 | XMS_ITS | Encounter Summary ---
Author Organization [facility] Address [address] [place] [facility] [place] [address] Care Team Providers Care Insight Director Name Role Phone Destinee Britton MD Primary Care Provider [phone] Encounter Details Date Type Department Care Team (Late st Contact Info) Description 01/27/2025 Bamboo flowsheet [facility] [address] [facility] [address] [place] [address] Ofelia Blakely PTA Social History Tobacco Use Types Packs/Day [...] week 05/20/2024 How often do you attend religion or rastafari serv ices? Never 05/20/2024 Do you belong to any clubs o r organizations such as religion groups, unions, fraternal or athletic groups, or [...] Recorded Patient Health Questionnaire-2 Score 0 05/20/2024 [facility] Occupat ional Health - [...] were you homeless or living in a longterm (including now)? No 05/20/2024 Comments No Sex [...] PM EDT Office Visit [facility] [address] [place] [address] Jovita Salas CNM [address] [place] [address] 02/15/2025 6:00 PM EDT Treatment [facility] [address] [facility] [address] [place] [address] Igor Kem, MEMORIAL ADVISER 02/24/2025 6:00 PM EDT Treatment [facility] [address] [facility] [address] [place] [address] Ofelia Blakely, MEMORIAL ADVISER 02/28/2025 6:00 PM EDT Treatment [facility] [address] [facility] [address] [place] [address] Delia Kwan, PT documented as of this encounter Visit Diagnoses Not on filedocumented in this encounter Care Teams Insight Director Relationship Specialty Start Date End Date Destinee Britton MD [address] [place] [address] PCP - General Family Medicine 11/12/22 documented as of this encounter
--- OUTSIDE RECORDS SUMMARY | 2025-02-10 08:28 | XMS_ITS | Patient Health Record ---
Author Organization [facility] Address [address] [place] [address] Care Team Providers Care Mechanical Operator Name Role Phone Nancy Delcid Unavailable [phone] Edgar Patricio Unavailable [phone] Allergies No Known Allergies Reason For Referral Reason PRIOR AUTH APPROVED ANTHEM...MRI lumbar scheduled 08/03/24 DONE Diagnosis 1 Lumbar radiculopathy (M54.16) Referral Organization [facility] Referring Provider First Name Nancy Referring Provider Last Name Radha padron Referring Provider Speciality Orthopedic Surgery Referred Organization [facility] Referred Address [address] [place] [phone], Procedure 1 MRI Lumbar Spine w/o Dye ([id number]) General Notes Kathy Deal 07/27/19 11:05:31 AM >, Demetria Hannon 07/27/2024 11:28:31 AM > PER PEPITO SYED AUTH HAS BEEN APPROVED FROM 07/27/2024-08/25/2024 AUTH # [id number], AUTH IN CHART. Referral Priority Stat Reason Referral Dr. Sheng capellan and treat L4-S1 YELENA Diagnosis 1 Lumbar disc herniati on (M51.26) Referral Organization [facility] Referring Provider First Name Nancy Referring Provider Last Name Radha g Referring Provider Speciality Orthopedic Surgery Referred Organization [facility] Referred Provider Edgar Patricio Referred Address [address] [place] [phone], General Notes Mirian Dealha 08/03/19 12:17:52 PM >, Eladia [place] 08/04/2024 08:27:50 AM >CAlled and lmovm to schedule with Dr Patricio-september, Eladia [place] 08/04/2024 08:36:04 AM >scheduled 3.3.25 Referral Priority Routine Reason [phone] fax [facility]; Pt requesting pain management at that location. Diagnosis 1 Lumbar radiculopathy (M54.16) Referral Organization [facility] Referring Provider First Name Zenag Referring Provider Last Name xxUdo-Zena g Referring Provider Speciality Orthopedic Surgery Referred Organization [facility] Referred Address [place], [place], General Notes Malia Lobato 12/2024 02:22:47 PM >, Malia Lobato 08/13/2024 09:43:43 AM >FYI: She is scheduled for an appt with Dr. Patricio, father called and requested a referral to [facility] [facility], but keeping appt with Sheng if they [...] Problem Status W/U Status Risk Notes Problem 586047937 Lumbar radiculopathy (M54.16) Active confirmed Problem 146396688 Lumbar disc herniation (M51.26) Active confirmed Problem 557570691 Discogenic low back pain (M51.360) Active confirmed Vital Signs Height 5ft 7in in 08/03/2024 Weight 240 lbs 08/03/2024 BMI 37.59 08/03/2024 Encounters Encounter Location Date Provider Diagnosis [facility] [address] [place] [address] 08/03/2024 [facility] Lumbar radiculopathy M54.16 [facility] [address] [place] [address] 07/27/2024 [facility] Lumbar radiculopathy M54.16 ; Discogenic low back pain M51.360 and Right hip pain M25.551 [facility] [address] [place] [address] 08/03/2024 [facility] Lumbar disc herniation M51.26 and Lumbar radiculopathy M54.16 [facility] [address] [place] [address] 08/05/2024 Edgar Patricio [place] [address] [place] [address] 08/12/2024 [facility] Lumbar radiculopathy M54.16 ; Right hip [...] Lumbar spine 2v ap and lat - 17425 07/27 Hip, right 2v WITH PELVIS - 11374 2024 Future Test Test Name Order Date MRI : Lumbosacral Spine W/O Contrast - 7 214707/27/2024 Insurance Providers Payer Name Payer Address Payer Phone Subscriber Number Group Number Insured Name Patient Relationship to Insured Coverage Start Date Coverage End Date [address] [place] [address] [id number] ELADIA PAN Self - patient is [...]
== END 2025-02-10 08:21 | disposition home or self-care (01) ==
LOC: PM 08:21
PROVIDERS: PCP Student in an Organized Health Care Education/Training Program; Visit Provider Nurse Practitioner
DX: M46.1 Sacroiliitis, not elsewhere classified (principal); M47.816 Spondylosis without myelopathy or radiculopathy, lumbar region; M79.18 Myalgia, other site; M48.062 Spinal stenosis, lumbar region with neurogenic claudication
CPT/HCPCS: G0463

== ENCOUNTER 2025-02-21 10:51 | Day surgery (SDC) | payer BC, SELFPAY ==
--- OUTSIDE RECORDS SUMMARY | 2024-08-24 07:15 | XMS_ITS ---
Author Organization [facility] Address [address] [place] [address] Care Team Providers Care Split And Drum Room Supervisor Name Role Phone rodrigoMaxxKelinNancy Cruz Unavailable [phone] Edgar Patricio Unavailable [phone] Allergies No Known Allergies REASON FOR VISIT Lumbar Disc Herniation- Dr Cruz Medications Medication SIG (Take, Route, Frequency, Duration) Notes Start Date End Date Status CETIRIZINE HCL 10 MG TAKE 1 TABLET BY [facility] EVERY DAY for 30 Days [...] smoker Encounters Encounter Location Date Provider Diagnosis [facility] [address] [place] [address] 08/24/2024 Edgar Patricio Plan Of Treatment No Information Progress Notes * ELADIA SIERRADOB:1999 (24 yo F)Acc No.[id number]:08/24/2024 Patient: ELADIA ZULETA Provider: Brisa Patricio MD :2000 A ge:24 Y S ex:Female Date:08/24/2024 Address:[address] [place], [place] [phone] Subjective: * Chief Complaints: * 1 . [...] Electronic signature of Edgar Patricio MD on 02/21/2025 at 10:53 AM EDT Sign off status: Pending * Provider: Brisa Patricio MD Date: 08/24/2024 Generated for Nii amezquita/Judy/Monica on: 0 02/21/2025 10:53 AM EDT
--- OUTSIDE RECORDS SUMMARY | 2024-09-06 09:00 | XMS_ITS ---
Author Organization [facility] Address [address] [place] [address] Care Team Providers Care Base Engineer Name Role Phone rodrigoNabilabhishekNancy Cruz Unavailable Edgar Patricio Unavailable [phone] REASON FOR VISIT Lumbar Disc herniation Dr Cruz Encounters Encounter Location Date Provider Diagnosis [facility] [address] [place] [phone] 09/06/2024 Edgar Patricio Plan Of Treatment No Information Progress Notes * ELADIA SIERRADOB:1999 (24 yo F)Acc No.[id number]:09/06/2024 Patient: ELADIA ZULETA Provider: Brisa Patricio MD :2000 A ge:24 Y S ex:Female Date:09/06/2024 Address:[address] [place], [place] [phone] Subjective: * Chief Complaints: * 1 [address] Lumbar Disc hern[address] Dr Cruz. * Medical History: Objective: * Vitals: Assessment: Plan: * Treatment: Forms: * Images: * Electronic signature of Edgar Patricio MD on 02/21/2025 at 10:53 AM EDT Sign off status: Pending * Provider: Brisa Patricio MD Date: 0 09/06/2024 Generated for Shamari alirio/Judy/eTransmitting on: 0 02/21/2025 10:53 AM EDT
--- OUTSIDE RECORDS SUMMARY | 2025-02-14 17:30 | XMS_ITS | Encounter Summary ---
Author Organization [facility] Address [address] [place] [address] Care Team Providers Care Fertilizer Loader Name Role Phone Destinee Britton MD Primary Care Provider [phone] Reason for Visit * Reason Comments Follow-up Encounter Details Date Type Department Care Team (Latest Contact Info) Description 02/14/2025 5:30 PM EDT [facility] [address] [place] [address] Jovita Salas, WILLOW [address] [place], [place] [id number] PCOS (polycystic ovarian syndrome) (Primary Dx); Encounter for initial prescription of contraceptive pills; Insulin resistance Social History Tobacco Use Types Packs/Day Years [...] week 05/20/2024 How often do you attend episcopalian or islam serv ices? Never 05/20/2024 Do you belong to any clubs o r organizations such as episcopalian groups, unions, fraternal or athletic groups, or [...] Recorded Patient Health Questionnaire-2 Score 0 05/20/2024 [facility] - Occupational Stress Questionnaire Answer Date Recorded [...] any time in the past 12 m [facility], were you homeless or living in a nursing home (including now)? No 05/20/2024 Comments No Sex and Gender Information Value Date Recorded Sex Assigned at Female 06/25/2023 1:54 PM EST Legal Sex Female 6:57 PM EDT Gender Identity Female 06/25/2023 1:54 PM EST Sexual Orientation Not on file documented as of this encounter Last Filed Vital Signs Vital Sign Reading Time Taken Comments Blood Pressure 130/78 02/14/2025 5:17 PM EDT Pulse 78 02/14/2025 5:17 PM EDT Temperature - - Respiratory Rate 18 02/14/2025 5:17 PM EDT Oxygen Saturation 98% 02/14/2025 5:17 PM EDT Inhaled Oxygen Concentration - - Weight 109 kg (241 lb) 02/14/2025 5:17 PM EDT Height 167.6 cm (5' 6 ) 02/14/2025 5:17 PM EDT Body Mass Index 38.9 02/14/2025 5:17 PM EDT documented in this encounter Progress Notes * Jovita Salas CNM - 02/14/2025 5:30 PM EDT PROBLEM VISIT Edwige Patterson is 24 y.o. a patient of [facility] Here for 6 month follow up Last pap: 2024 Last mammogram: none No LMP recorded. History: Past Medical History: Diagnosis Date Anxiety 10/2023 Depression 12/2019 Right ankle sprain No past surgical history on file. Family History Problem Relation Name Age of Onset Diabetes Mother Kelsy Patterson Cancer Paternal Grandmother Tawnya Patterson Heart failure Other g-ma Diabetes Sister Jovana Patterson Mental illness Sister Jovana Patterson [email or web address] Allergies: No Known Allergies Medications: Current Outpatient Medications on File Prior to Visit Medication Sig Dispense Refill buPROPion XL (Wellbutrin XL) 300 MG 24 hr tablet Take 300 mg by mouth in the morning. cyclobenzaprine (Flexeril) 10 MG tablet Take 1 tablet by mouth 3 (three) times a day as needed etodolac (Lodine) 400 MG tablet Take 400 mg by mouth 2 (two) times a day as needed hydrOXYzine pamoate (Vistaril) 25 MG capsule Take 25 mg by mouth 3 (three) times a day as needed Norgestimate-Eth Estradiol (Itd-Bm-Mrlnmi) 0.18/0.215/0.25 MG-25 MCG tablet TAKE 1 TABLET BY MOUTH EVERY DAY 84 tablet 0 baclofen (Lioresal) 10 MG tablet Take 10 mg by mouth in the morning and 10 mg at noon and 10 mg in the evening. cetirizine (ZyrTEC) 10 MG tablet TAKE 1 TABLET BY MOUTH EVERY DAY for 30 Days gabapentin (Neurontin) 300 MG capsule Take 300 mg by mouth in the morning and 300 mg in the eveningand 300 mg before bedtime. ibuprofen 600 MG tablet PLEASE SEE ATTACHED FOR DETAILED DIRECTIONS for 8 Days metFORMIN (Glucophage) 500 MG tablet TAKE 1 TABLET (500 MG) BY MOUTH IN THE MORNING AND IN THE EVENING WITH MEALS 180 tablet 1 methocarbamol (Robaxin) 500 MG tablet Take 1,000 mg by mouth norgestimate-ethinyl estradiol (Sprintec 28) 0.25-35 MG-MCG tablet Take 1 tablet by mouth Daily 90 tablet 0 ondansetron ODT (Zofran-ODT) 4 MG disintegrating tablet Take 4 mg by mouth every 8 (eight) hours ifneeded for nausea No current facility-administered medications on file prior to visit. Vitals: 02/14/25 1717 BP: 130/78 Pulse: 78 Resp: 18 SpO2: 98% HPI: here for PCOS follow up ROS: Review of Systems Physical exam: Physical Exam Cardiovascular: Rate and Rhythm: Normal rate and regular rhythm. Pulses: Normal pulses. Heart sounds: Normal heart sounds. Pulmonary: Effort: Pulmonary effort is normal. Breath sounds: Normal breath sounds. Chest: Breasts: Right: Normal. Left: Normal. Abdominal: General: Bowel sounds are normal. Palpations: Abdomen is soft. Tenderness: There is no abdominal tenderness. Musculoskeletal: Cervical back: Full passive range of motion without pain and normal range of motion. Assessment and Plan: There are no diagnoses linked to this encounter. No follow-ups on file. There are no Patient Instructions on file for this visit. Alyce López MA,02/14/2025 5:18 PM documented in this encounter Plan of Treatment Upcoming Encounters Date Type Department Care Team (Late st Contact Info) Description 02/24/2025 6:00 PM EDT Treatment [facility] [address] [facility] [address] [place] [address] Ofelia Blakely, FINANCE PROFESSOR 02/28/2025 6:00 PM EDT Treatment [facility] [address] [facility] [address] [place] [address] Delia Kwan, PT 08/15/2025 5:30 PM EST Office Visit [facility] [address] [place] [address] Jovita Salas CNM [address] [place], [place] [phone] documented as of this encounter Visit Diagnoses Diagnosis PCOS (polycystic ovarian syndrome)- Primary Polycystic ovaries Encounter for initial prescription of contraceptive pills Insulin resistance Other abnormal glucose documented in this encounter Care Teams Fertilizer Loader Relationship Specialty Start Date End Date Destinee Britton MD [address] [place], [place] [phone] PCP - General Family Medicine 11/12/22 documented as of this encounter
--- OUTSIDE RECORDS SUMMARY | 2025-02-15 18:00 | XMS_ITS | Encounter Summary ---
Author Organization [facility] Address [address] [place] [address] Care Team Providers Care Human Resources Leader Name Role Phone Destinee Britton MD Primary Care Provider [phone] Reason for Visit * Rehabilitation - Outpatient (Routine) - Authorized Specialty Diagnoses / Procedures Referred By Contac t Referred To Contact Physical Therapy Diagnoses Sacrococcygeal disorders, not elsewhere classified Procedures [place] PHYSICAL THERAPY EVALUATION LOW COMPLEX 20 MINS [place] OFFICE/OUTPATIENT NEW HIGH MDM 60 MINUTES Feliz Musa MD [address] [place] [address], [address] [place] [address] Phone: tel: fax: Delia Kwan PT Referral ID Status Reason Start Date Expiration Date V isits Requested Visits Authorized [id number] Authorized 01/24/2025 03/24/2025 6 6 Encounter Details Date Type Department Care Team (Latest Contact Info) Description 02/15/2025 6:00 PM EDT Treatment [facility] [address] [facility] [address] [place] [address] Kem Costa PTA Sacrococcygeal disorders, not elsewhere [...] week 05/20/2024 How often do you attend gnosticism or jehovah's witness serv ices? Never 05/20/2024 Do you belong to any clubs o r organizations such as gnosticism groups, unions, fraternal or athletic groups, or [...] Patient Health Questionnaire-2 Score 0 05/20/2024 [facility] - Occupational [...] any time in the past 12 m [facility], were you homeless or living in a [facility] (including now)? No 05/20/2024 Comments No Sex and Gender Information Value Date Recorded Sex Assigned at Female 06/25/2023 1:54 PM EST Legal Sex Female 6:57 PM EDT Gender Identity Female 06/25/2023 1:54 PM EST Sexual Orientation Not on file documented as of this encounter Progress Notes * Kem Costa, ENVIRONMENTAL EMERGENCIES PLANNER - 02/15/2025 6:00 PM EDT Images from the original note were not included. Physical Therapy Treatment Visit Patient Name: Edwige Patterson Today's Date: 02/15/2025 Encounter Diagnoses Name Primary? Sacrococcygeal disorders, not elsewhere classified Yes Visit number: 4 Timed Code Treatment: 50 minutes Total Treatment Time: 60 minutes Time In: 5:50 PM Time Out: 6:50 PM History: Pt [...] Precautions: right sided low back pain Subjective: Pt reports she still has pain but back feels a little more mobile, and is walking better. Pt had an appointment with pain management and is having an injection scheduled for 02/21/25. Pain: 11/13 Objective: PT Evaluation (01/24/2025) LUMBAR [...] Test: negative clonus bilateral Treatment Manual Therapy: (20 minutes ) Delivered manual ther to pt in prone, PA mobs, sacral distractions, STM to paraspinals to reduce muscle tone Therapeutic Exercise: (30 minutes) Guided pt through Hank phase I [...] Pt with significantly limited trunk flexion ROM. Decreased tenderness bilateral SIJ. Continued with Hank phase I prone progression of lumbar extension. Tolerated manual ther well. Re-ed HEP participation, icing and posture in sitting / standing while at work to minimize strain on lower lumbar region, pt verbalized more effort for posture at work and notices some improvement. Has scheduled injection with pain management on 02/21/25. Will continue. Outcome Measure: Back Index: 25/50 Rehab Diagnosis: low back pain, bilateral hip pain and weakness, limited ROM and mobility Short Term Goal: To be met in 2 weeks Goal 1: Pt to be instructed in home exercise program. Utilization Coordinator Goals: To be met in 10 weeks [...] Please sign below. Date: Cosigned by Delia Kwan, PT at 02/16/2025 4:31 PM EDT documented in this encounter Plan of Treatment Upcoming Encounters Date Type Department Care Team (Late st Contact Info) Description 02/24/2025 6:00 PM EDT Treatment [facility] [address] [facility] [address] [place] [address] Ofelia Blakely, NAIT 02/28/2025 6:00 PM EDT Treatment [facility] [address] [place] [address] [place] [address] Delia Kwan, PT 08/15/2025 5:30 PM EST Office Visit [facility] [address] [place] [address] Jovita Salas, WILLOW [address] [place] [address] documented as of this encounter Visit Diagnoses Diagnosis Sacrococcygeal disorders, not elsewhere classified- Primary documented in this encounter Care Teams Human Resources Leader Relationship Specialty Start Date End Date Destinee Britton MD [address] [place] [address] PCP - General Family Medicine 11/12/22 documented as of this encounter
--- OUTSIDE RECORDS SUMMARY | 2025-02-21 10:53 | XMS_ITS | Encounter Summary ---
Author Organization [facility] Address [address] [facility] [place] [address] Care Team Providers Care Seam Stayer Name Role Phone Destinee Britton MD Primary Care Provider [phone] Encounter Details Date Type Department Care Team (Late st Contact Info) Description 02/18/2025 Abstract [facility] [address] [place] [phone] Destinee Britton MD [address] [place], [place] [phone] Social History Tobacco Use Types Packs/Day Years [...] week 05/20/2024 How often do you attend anabaptism or church serv ices? Never 05/20/2024 Do you belong to any clubs o r organizations such as anabaptism groups, unions, fraternal or athletic groups, or [...] Recorded Patient Health Questionnaire-2 Score 0 05/20/2024 [facility] - Occupational [...] Description 02/24/2025 6:00 PM EDT Treatment [facility] [address] [facility] [address] [place] [address] Ofelia Blakely, MEAT COOLER 02/28/2025 6:00 PM EDT Treatment [facility] [address] [facility] [address] [place] [address] Delia Kwan, PT 08/15/2025 5:30 PM EST Office Visit [facility] [address] [place] [address] Jovita Salas CN [address] [place] [address] documented as of this encounter Visit Diagnoses Not on filedocumented in this encounter Care Teams Seam Stayer Relationship Specialty Start Date End Date Destinee Britton MD [address] [place] [address] PCP - General Family Medicine 11/12/22 documented as of this encounter
--- OUTSIDE RECORDS SUMMARY | 2025-02-21 10:53 | XMS_ITS | Clinical Summary ---
Author Organization [facility] Address [address] [facility], [address] [place] [address] Care Team Providers Care Creative Specialist Name Role Phone Ottoniel Romeo Primary Care Provider [phone] Allergies No known active allergies Medications buPROPion [...] EDT - 11/24/2024 2:32 PM EDT Emergency [facility] [address] [place] [address] Acute exacerbation of chronic low [...] patient's age to complete this topic [place] [address] [place] [address] Care Teams Creative Specialist Relationship Specialty Start Date End Date Ottoniel Romeo DO [address] [place] [address];[address] [place], [place] [phone] PCP - General Family Medicine 07/20/24
--- OUTSIDE RECORDS SUMMARY | 2025-02-21 10:53 | XMS_ITS | Clinical Summary ---
Author Organization [facility] Address [address] [facility] [place] [address] Care Team Providers Care Freight Brakeman Name Role Phone Destinee Britton MD Primary Care Provider [phone] Allergies No known active allergies Medications hydrOXYzine pamoate (Vistaril) 25 MG capsule Take 25 mg by mouth 3 (three) times a day as needed 024 Active cetirizine (ZyrTEC) 10 MG tablet TAKE 1 TABLET BY MOUTH EVERY DAY for 30 Days Active cyclobenzaprine (Flexeril) 10 MG tablet Take 1 tablet by mouth 3 (three) times a day as needed Active ibuprofen 600 MG tablet PLEASE SEE ATTACHED FOR DETAILED DIRECTIONS for 8 Days Active methocarbamol (Robaxin) 500 MG tablet Take 1,000 mg by mouth 025 Active ondansetron ODT (Zofran-ODT) 4 MG disintegrating tablet Take 4 mg by mouth every 8 (eight) hours if needed for nausea 025 Active buPROPion XL (Wellbutrin XL) 300 MG 24 hr tablet Take 300 mg by mouth in the morning. 025 Active gabapentin (Neurontin) 300 MG capsule Take 300 mg by mouth in the morning and 300 mg in the evening and 300 mg before bedtime. 025 Active Norgestimate-Eth Estradiol (Hnc-Hc-Uuawcx) 0.18/0.215/0.25 MG-25 MCG tabletIndications :Unwanted fertility TAKE 1 TABLET BY MOUTH EVERY DAY 84 tablet 025 Active etodolac (Lodine) 400 MG tablet Take 400 mg by mouth 2 (two) times a day as needed Active baclofen (Lioresal) 10 MG tablet Take 10 mg by mouth in the morning and 10 mg at noon and 10 mg in the evening. Active metFORMIN XR (Glucophage-XR) 500 MG 24 hr tabletIndications :PCOS (polycystic ovarian syndrome) Take 1 tablet (500 mg) by mouth in the evening. Take with meals Do not crush, chew, or split. 90 tablet 3 025 2025 Active norgestimate-ethi nyl estradiol (Sprintec 28) 0.25-35 MG-MCG tabletIndications :Encounter for initial prescription of contraceptive pills Take 1 tablet by mouth Daily 90 tablet 3 025 2024 Active metFORMIN (Glucophage) 500 MG tabletIndications :PCOS (polycystic ovarian syndrome) TAKE 1 TABLET (500 MG) BY MOUTH IN THE MORNING AND IN THE EVENING WITH MEALS 180 tablet 1 024 2024 Discontinued norgestimate-ethi nyl estradiol (Ortho Tri-Cyclen LO) 0.18/0.215/0.25 MG-25 MCG tabletIndications :Unwanted fertility Take 1 tablet by mouth Daily 90 tablet 1 025 2024 Discontinued norgestimate-ethi nyl estradiol (Sprintec 28) 0.25-35 MG-MCG tabletIndications :Encounter for initial prescription of contraceptive pills Take 1 tablet by mouth Daily 90 tablet 025 2024 Discontinued(R bryon) Active Problems Problem Noted Date Diagnosed Date [...] Encounters Date Type Department Care Team Description 02/18/2025 [facility] [address] [place] [address] Destinee Britton MD 02/15/2025 6:00 PM EDT Treatment [facility] [address] [place] [address] [place] [address] Kem Costa PTA Sacrococcygeal disorders, not elsewhere classified (Primary Dx) 02/15/2025 Travel 02/15/2025 Telephone [place] [id number] [place] [address] Destinee Britton MD 02/14/2025 5:30 PM EDT [facility] [place] [address] Jovita Salas CNM PCOS (polycystic ovarian syndrome) (Primary Dx); Encounter for initial prescription of contraceptive pills; Insulin resistance 02/14/[address] [facility] [address] [place] [address] Jovita Salas CNM 02/14/2025 Travel 02/01/2025 6:00 PM EDT Treatment [facility] [address] [place] [place] [address] Kem Costa PTA Sacrococcygeal disorders, not elsewhere classified (Primary Dx) 02/01/2025 Bamboo flowsheet [facility] [address] [place] [place] [address] Kem Costa PTA 02/01/2025 Travel 01/27/2025 6:00 PM EDT Treatment [facility] [address] [place] [place] [address] Ofelia Blakely, REPAIR COIL WINDER Sacrococcygeal disorders, not elsewhere classified (Primary Dx) 01/27/2025 Bamboo flowsheet [facility] [address] [facility] [address] [place] [address] Ofelia Blakely, REPAIR COIL WINDER 01/27/2025 Travel 01/25/2025 Plan of Care Documentation [facility] [address] [facility] [address] [place] [address] 01/24/2025 6:00 PM EDT Evaluation [facility] [address] [facility] [address] [place] [address] Delia Kwan, PT Sacrococcygeal disorders, not elsewhere classified (Primary Dx) 01/24/2025 Bamboo flowsheet [facility] [address] [facility] [address] [place] [address] Delia Kwan, PT 01/24/2025 Travel 01/22/2025 Refill [facility] [address] [place] [address] Jovita Salas, ALEJANDRAM Unwanted fertility 01/21/2025 Travel 01/11/[address] [facility] [address] [place] [address] Destinee Britton MD Encounter for initial prescription of contraceptive pills 12/17/2024 Results Follow-Up [facility] [address] [place] [phone] Ness Montez, CHRIS US LIVER 12/15/2024 8:15 AM EDT Ancillary Procedure [facility] [address] [facility] [address] [place] [address] Elevated liver enzymes 12/15/2024 Travel 12/06/2024 Results Follow-Up [facility] [address] [place] [address] Ness Montez, CHRIS XR ABDOMEN 2 VIEW, Comprehensive metabolic panel, CBC and differential, Additional followed-up results: 14 12/03/2024 2:00 PM EDT Ancillary Procedure [facility] [address] [facility] [address] [place] [address] Pain of upper abdomen 12/03/2024 1:30 PM EDT Office Visit [facility] [address] [facility] [place] [address] Ness Montez NP Nausea (Primary Dx); Pain of upper abdomen 12/03/2024 Travel 12/03/2024 Telephone [facility] [address] [facility] [address] [facility] [place] [address] Destinee Britton MD 11/25/2024 Telephone [facility] [address] [facility] [place] [address] Ladan Kramer MA Contraception from Last [...] week 05/20/2024 How often do you attend shinto or spiritism serv ices? Never 05/20/2024 Do you belong to any clubs o r organizations such as shinto groups, unions, fraternal or athletic groups, or [...] Recorded Patient Health Questionnaire-2 Score 0 05/20/2024 [facility] [place] of Occupat ional Health - Occupational Stress [...] any time in the past 12 m [facility], were you homeless or living in [...] Mass Index 38.9 02/14/2025 5:17 PM EDT Plan of Treatment Upcoming Encounters Date Type Department Care Team (Late st Contact Info) Description 02/24/2025 6:00 PM EDT Treatment [facility] [address] [facility] [address] [place] [address] Ofelia Blakely, NATI 02/28/2025 6:00 PM EDT Treatment [facility] [address] [facility] [address] [place] [address] Delia Kwan, PT 08/15/2025 5:30 PM EST Office Visit [facility] [address] [place] [address] Jovita Salas, CN [address] [place], [place] [phone] Health Maintenance Due Date Last Done Comments [...] Performing Organization Information Site ID: PB Name: [facility] Address: [address] [address] Director: Ashley Harris M.D. [facility] LAB BLOOD ORDERABLES Final Resu lt Performing Organization Address [facility] Co de Phone Number QUEST * Cytomegalovirus [...] Performing Organization Information Site ID: QPT Name: [facility] Address: [address] [facility], [address] [place] [address] Director: Ramana Taylor MD [facility] CARD HAND LAB BLOOD ORDERABLES Final Resu lt Performing Organization Address [facility]/ZIP Co de Phone Number QUEST * Hepatitis panel, acute (12/15/2024 8:36 AM EDT) Pathologist [facility] HEPATITIS A IGM NON-REACTI VE NON-REACT AUGUSTINE QUEST Comment: For additional information, please refer to http://SkyPower.Procyrion/faq/HEE723 (This link is being provided for informational/ educational purposes only.) HEPATITIS B SURFACE ANTIGEN NON-REACTI VE NON-REACT AUGUSTINE QUEST Comment: For additional information, please refer to http://Steel Steed Studio/faq/SUW817 (This link is being provided for informational/ educational purposes only.) HEPATITIS B CORE ANTIBODY (IGM) NON-REACTI VE NON-REACT AUGUSTINE QUEST Comment: For additional information, please refer to http://[employer]/faq/QVD103 (This link is being provided for informational/ educational purposes only.) HEPATITIS C ANTIBODY NON-REACTI VE NON-REACT AUGUSTINE QUEST Comment: HCV antibody was non-reactive. There is no laboratory evidence of HCV infection. In most cases, no further action is required. However, if recent HCV exposure is suspected, a test for HCV RNA (test code 65483) is suggested. For additional information please refer to http://[employer]/faq/RAN59h3 (This link is being provided for informational/ educational purposes only.) Blood Venous blood specimen / Unknown 12/15/2024 8:36 AM EDT 12/15/2024 2:14 PM EDT Narrative Resulting Agency Comment Performing Organization Information Site ID: QPT Name: [facility] Address: [address] [place] [address], [address] [place] [address] Director: Ramana Taylor MD Ness Montez NP LAB BLOOD ORDERABLES Final Resu lt QUEST * Ayaan-Major virus VCA, IgM (12/15/2024 8:36 AM EDT) EBV VIRAL CAPSID AG (VCA) AB (IGM) <36.00 U/mL QUEST Comment: U/mL Interpretation ---- <36.00 Negative 36.00-43.99 Equivocal >43.99 Positive Blood Venous blood specimen / Unknown 12/15/2024 8:36 AM EDT 12/15/2024 2:14 PM EDT Narrative Resulting Agency Comment Performing Organization Information Site ID: QPT Name: [facility] Address: [address] [place] [address], [address] [place] [address] Director: Ramana Taylor MD [facility] CARD HAND LAB BLOOD ORDERABLES Final Resu lt Performing Organization Address [facility] de Phone Number QUEST * Protime-INR (12/15/2024 8:36 AM EDT) INR 1.0 QUEST Comment: Reference Range 0.9-1.1 Moderate-intensity Warfarin Therapy 2.0-3.0 Higher-intensity Warfarin Therapy 3.0-4.0 PT 10.2 9.0 - 11.5 sec QUEST Comment: For additional information, please refer to http://education.Procyrion/faq/WNG984 (This link is being provided for informational/ educational purposes only.) Blood Venous blood specimen / Unknown 12/15/2024 8:36 AM EDT 12/15/2024 2:14 PM EDT Narrative Resulting Agency Comment Performing Organization Information Site ID: QTW Name: [facility] Address: [address] [place] [phone] Director: Lashawn Hoyt [facility] CARD HAND LAB BLOOD ORDERABLES Final Resu lt Performing Organization Address [facility] de Phone Number QUEST * [...] AC-0: Negative International Consensus on BAR Patterns (https://doi.org/10.1515/mqid-0785-3302) For additional information, please refer to http://education.PBworks/faq/LIS029 (This link is being provided for informational/ educational purposes only.) Blood Venous blood specimen / Unknown 12/15/2024 8:36 AM EDT 12/15/2024 2:14 PM EDT Narrative Resulting Agency Comment Performing Organization Information Site ID: QPT Name: [facility] Address: [address] [place] [address], [address] [place] [address] Director: Ramana Taylor MD [facility] CARD HAND LAB BLOOD ORDERABLES Final Resu lt Performing Organization Address [facility] de Phone Number QUEST * (ABNORMAL) ALT (12/15/2024 8:36 AM EDT) ALT 33(H) 6 - 29 U/L QUEST Blood Venous blood specimen / Unknown 12/15/2024 8:36 AM EDT 12/15/2024 2:14 PM EDT Narrative Resulting Agency Comment Performing Organization Information Site ID: QTW Name: [facility] Address: [address] [place] [phone] Director: Lashawn Hoyt [facility] CARD HAND LAB BLOOD ORDERABLES Final Resu lt Performing Organization Address [facility] de Phone Number QUEST * AST (12/15/2024 8:36 AM EDT) AST 17 10 - 30 U/L QUEST Blood Venous blood specimen / Unknown 12/15/2024 8:36 AM EDT 12/15/2024 2:14 PM EDT Narrative Resulting Agency Comment Performing Organization Information Site ID: QTW Name: [facility] Address: [address] [place] [phone] Director: Lashawn Hoyt [facility] CARD HAND LAB BLOOD ORDERABLES Final Resu lt QUEST * Ferritin (12/15/2024 8:36 AM EDT) FERRITIN 28 16 - 154 ng/mL QUEST Blood Venous blood specimen / Unknown 12/15/2024 8:36 AM EDT 12/15/2024 2:14 PM EDT Narrative Resulting Agency Comment Performing Organization Information Site ID: QPT Name: [facility] Address: [address] [place] [address], [address] [place] [phone] Director: Ramana Taylor MD [facility] CARD HAND LAB BLOOD ORDERABLES Final Resu lt Performing Organization Address [facility] Co de Phone Number QUEST * US [...] PHD at 17-Dec-2024 10:25:11 AM [facility] Procedure Note Siri Avery MD - [...] signed by SIRI AVERY II, MD, PHD [id number] 10:25:11 AM [facility] us Ness Montez CARD HAND IMG US PROCEDURES Final Result * XR [...] or parenchymal calcification. IMPRESSION: Negative abdominal series us Ness Montez CARD HAND IMG XR PROCEDURES Final Result * NOTE (12/03/2024 2:26 PM EDT) NOTE QUEST Comment: This urine was analyzed for the presence of WBC, RBC, bacteria, casts, and other formed elements. Only those elements seen were reported. 12/03/2024 2:26 PM EDT 12/03/2024 2:27 PM EDT Narrative Resulting Agency Comment Performing Organization Information Site ID: QPT Name: [facility] Address: [address] [place] [address], [address] [place] [phone] Director: Ramana Taylor MD Ness Montze CARD HAND QUEST Final Result QUEST * (ABNORMAL) Urinalysis [...] Performing Organization Information Site ID: QPT Name: [facility] Address: [address] [place] [address], [address] [place] [phone] Director: Ramana Taylor MD Ness Montez CARD HAND LAB URINE ORDERABLES Final Resu lt Performing Organization Address City/[facility]/ZIP Co de Phone Number QUEST * Urine culture (clean catch) (12/03/2024 2:26 PM EDT) Pathologist [facility] MICRO NUMBER [id number] QUEST SPECIMEN QUALITY Adequate QUEST SOURCE: (QUEST) URINE QUEST STATUS FINAL QUEST RESULT SEE NOTE QUEST Comment: No Growth Urine Urine specimen obtained by clean catch procedure / Unknown 12/03/2024 2:26 PM EDT 12/03/2024 2:27 PM EDT Narrative Resulting Agency Comment Performing Organization Information Site ID: QPT Name: [facility] Address: [address] [place] [address], [address] [place] [address] Director: Ramana Taylor MD Ness Montez CARD HAND LAB MICROBIOLOGY - GENERAL ORDE RABLES Final Result Performing Organization Address [facility] Co de Phone Number QUEST * CBC and [...] Performing Organization Information Site ID: QPT Name: [facility] Address: [address] [place] [address], [address] [place] [phone] Director: Ramana Taylor MD Ness Montez CARD HAND LAB BLOOD ORDERABLES Final Resu lt QUEST * (ABNORMAL) Comprehensive metabolic panel (12/03/2024 2:25 PM EDT) Pathologist [facility] Glucose 76 65 - 99 mg/dL QUEST [...] Information Site ID: QPT Name: [facility] Address: [address] [place] [address], [address] [place] [phone] Director: Ramana Taylor MD Ness Montez CARD HAND LAB BLOOD ORDERABLES Final Resu lt QUEST * POCT , urine (12/03/2024 2:21 PM EDT) Preg Test, Ur Negative Negative Urine 12/03/2024 2:21 PM EDT Ness Montez CARD HAND POINT OF CARE TEST ENTER/EDIT O RDERABLES [...] Urine 12/03/2024 2:21 PM EDT Ness Montez CARD HAND POINT OF CARE TEST ENTER/EDIT O RDERABLES Final Result from Last 3 Months Insurance [facility] Care Teams Freight Brakeman Relationship Specialty Start Date End Date Destinee Britton MD [address] [place] [address] PCP - General Family Medicine 11/12/22
--- OUTSIDE RECORDS SUMMARY | 2025-02-21 10:53 | XMS_ITS | Clinical Summary ---
Author Organization [employer] s tem Address [id number] [address] [place] [address] Care Team Providers Care Strategic Account Executive Name Role Phone Vandana Romeoew Sunil BOWEN Primary Care Provider [phone] Allergies No known active allergies Medications * [...] THE MORNING 90 tablet 3 09/09/2024 Active baclofen (LIORESAL) 10 mg tablet Take 1 tablet (10 mg total) by mouth 3 (three) times a day. Active gabapentin (NEURONTIN) 300 mg capsule Take 1 capsule (300 mg total) by mouth 3 (three) times a day. Active Active Problems Problem Noted Date Diagnosed Date PCOS (polycystic ovarian syndrome) 05/28/2024 Adjustment disorder with anxiety 12/26/2023 Recurrent major depressive disorder, in full rem ission 04/25/2020 Phase of life problem 04/25/2020 Encounters * This document contains information received from the source organization and may not represent a complete record from that organization. Date Type Department Care Team Description 01/20/2025 Travel 12/16/2024 Travel from Last 3 Months Immunizations Immunization [...] got money to buy more. Never True 01/20/2025 Within the past 12 months th e food we bought just didn't last and we didn't have money to get more. Never True 01/20/2025 Purpose - Life Answer Date Recorded Purpose [...] 11/18/2020 Medical Devices Not on file Insurance ANTH Care Teams Strategic Account Executive Relationship Specialty Start Date End Date Ottoniel Romeo DO PCP - General Family Medicine 04/03/20
--- OUTSIDE RECORDS SUMMARY | 2025-02-21 10:53 | XMS_ITS | Encounter Summary ---
Author Organization [facility] Address [address] [place] [address] Care Team Providers Care Employment Office Clerk Name Role Phone Destinee Britton MD Primary Care Provider [phone] Encounter Details Date Type Department Care Team (Late st Contact Info) Description 09/10/2024 Telephone [facility] [address] [place] [address] Jovita Slaas, [facility] [address] [place], [place] [phone] Social History Tobacco Use Types Packs/Day Years [...] How often do you attend rastafari or buddhism serv ices? Never 05/20/2024 Do you belong [...] [facility] [address] [facility] [address] [place] [address] Ofelia Blakely, NATI 02/28/2025 6:00 PM EDT Treatment [facility] [address] [facility] [address] [place] [address] Delia Kwan, PT 08/15/2025 5:30 PM EST Office Visit [facility] [address] [place] [address] Jovita Salas, WILLOW [address] [place] [address] documented as of this encounter Visit Diagnoses Not on filedocumented in this encounter Care Teams Employment Office Clerk Relationship Specialty Start Date End Date Destinee Britton MD [address] [place] [address] PCP - General Family Medicine 11/12/22 documented as of this encounter
--- OUTSIDE RECORDS SUMMARY | 2025-02-21 10:53 | XMS_ITS | Encounter Summary ---
Author Organization [facility] Address [address] [place] [address] Care Team Providers Care Crown Assembly Machine Set Up Mechanic Name Role Phone Destinee Britton MD Primary Care Provider [phone] Encounter Details Date Type Department Care Team (Latest Contact Info) Description 02/15/2025 Travel Social History Tobacco Use Types Packs/Day [...] week 05/20/2024 How often do you attend sabianism or yazidism serv ices? Never 05/20/2024 Do you belong to any clubs o r organizations such as sabianism groups, unions, fraternal or athletic groups, or [...] Recorded Patient Health Questionnaire-2 Score 0 05/20/2024 [facility] of Occupat ional Health - [...] any time in the past 12 m [facility], were you homeless or living in [...] Treatment [facility] [address] [facility] [address] [place] [address] Ofelia Blakely, CMA 02/28/2025 6:00 PM EDT Treatment [facility] [address] [facility] [address] [place] [address] Delia Kwan, PT 08/15/2025 5:30 PM EST Office Visit [facility] [address] [place] [address] Jovita Salas CN [address] [place] [address] documented as of this encounter Visit Diagnoses Not on filedocumented in this encounter Care Teams Crown Assembly Machine Set Up Mechanic Relationship Specialty Start Date End Date Destinee Britton MD [address] [place] [address] PCP - General Family Medicine 11/12/22 documented as of this encounter
--- OUTSIDE RECORDS SUMMARY | 2025-02-21 10:53 | XMS_ITS | Encounter Summary ---
Author Organization [facility] Address [address] [place] [address] Care Team Providers Care Metal Finisher Name Role Phone Destinee Britton MD Primary Care Provider [phone] Encounter Details Date Type Department Care Team (Late st Contact Info) Description 02/14/2025 [facility] [address] [place] [address] Jovita Salas, CNM [address] [place], [place] [phone] Social History Tobacco Use Types Packs/Day Years [...] week 05/20/2024 How often do you attend druze or anabaptist serv ices? Never 05/20/2024 Do you belong to any clubs o r organizations such as druze groups, unions, fraternal or athletic groups, or [...] Recorded Patient Health Questionnaire-2 Score 0 05/20/2024 [facility] of Occupat ional Health - Occupational [...] time in the past [address] [facility], were you homeless or living in a assisted (including now)? No 05/20/2024 Comments No Sex [...] [facility] [address] [facility] [address] [place] [address] Ofelia Blakely, CONSULTANT IN ERGONOMICS AND SAFETY 02/28/2025 6:00 PM EDT Treatment [facility] [address] [facility] [address] [place] [address] Delia Kwan, PT 08/15/2025 5:30 PM EST Office Visit [facility] [address] [place] [address] Jovita Salas, WILLOW [address] [place] [address] documented as of this encounter Visit Diagnoses Not on filedocumented in this encounter Care Teams Metal Finisher Relationship Specialty Start Date End Date Destniee Britton MD [address] [place] [address] PCP - General Family Medicine 11/12/22 documented as of this encounter
--- OUTSIDE RECORDS SUMMARY | 2025-02-21 10:53 | XMS_ITS | Patient Health Record ---
Author Organization [facility] Address [address] [place] [address] Care Team Providers Care Collections Clerk Name Role Phone Nancy Delcid Unavailable Edgar Patricio Unavailable [phone] Allergies No Known Allergies Reason For Referral Reason PRIOR AUTH APPROVED ANTHEM...MRI lumbar scheduled 08/03/24 DONE Diagnosis 1 Lumbar radiculopathy (M54.16) Referral Organization [facility] Referring Provider First Name Nancy Referring Provider Last Name Radha padron Referring Provider Speciality Orthopedic Surgery Referred Organization [facility] Referred Address [address] [place] [id number], Procedure 1 MRI Lumbar Spine w/o Dye (52647) General Notes Kathy Deal 07/27/19 11:05:31 AM >, Demetria Hannon 07/27/2024 11:28:31 AM > PER PEPITO SYED AUTH HAS BEEN APPROVED FROM 07/27/2024-08/25/2024 AUTH # [id number], AUTH IN CHART. Referral Priority Stat Reason Referral Dr. Sheng capellan and treat L4-S1 YELENA Diagnosis 1 Lumbar disc herniati on (M51.26) Referral Organization [facility] Referring Provider First Name Nancy Referring Provider Last Name Radha g Referring Provider Speciality Orthopedic Surgery Referred Organization [facility] Referred Provider Edgar Patricio Referred Address [address] [place] [phone], General Notes Mirian Dealha 08/03/19 12:17:52 PM >, Eladia Taylor 08/04/2024 08:27:50 AM >CAlled and lmovm to schedule with Dr Patricio-september, Eladia Taylor 08/04/2024 08:36:04 AM >scheduled 3.3.25 Referral Priority Routine Reason [phone] fax [facility]; Pt requesting pain management at that location. Diagnosis 1 Lumbar radiculopathy (M54.16) Referral Organization [facility] Referring Provider First Name Zenag Referring Provider Last Name xxUdo-Zena g Referring Provider Speciality Orthopedic Surgery Referred Organization [facility] Referred Address [place], [place], General Notes Malia Lobato 12/2024 02:22:47 PM >, Malia Lobato 08/13/2024 09:43:43 AM >FYI: She is scheduled for an appt with Dr. Patricio, father called and requested a referral to [facility], but keeping appt with Sheng if they [...] Problem Status W/U Status Risk Notes Problem [id number] Lumbar radiculopathy (M54.16) Active confirmed Problem 081001763 Lumbar disc herniation (M51.26) Active confirmed Problem 512308249 Discogenic low back pain (M51.360) Active confirmed Vital Signs Height 5ft 7in in 08/03/2024 Weight 240 lbs 08/03/2024 BMI 37.59 08/03/2024 Encounters Encounter Location Date Provider Diagnosis [facility] [address] [place] [address] 08/03/2024 [facility] Lumbar radiculopathy M54.16 [facility] [address] [place] [address] 07/27/2024 [facility] Lumbar radiculopathy M54.16 ; Discogenic low back pain M51.360 and Right hip pain M25.551 [facility] [address] [place] [address] 08/03/2024 [facility] Lumbar disc herniation M51.26 and Lumbar radiculopathy M54.16 [facility] [address] [place] [address] 08/05/2024 Edgar Patricio [place] [address] [place] [address] 08/12/2024 [facility] Lumbar radiculopathy M54.16 ; Right hip [...] Lumbar spine 2v ap and lat - 27777 07/27 Hip, right 2v WITH PELVIS - 95103 2024 Future Test Test Name Order Date MRI : Lumbosacral Spine W/O Contrast - 7 214707/27/2024 Insurance Providers Payer Name Payer Address Payer Phone Subscriber Number Group Number Insured Name Patient Relationship to Insured Coverage Start Date Coverage End Date [employer] [address] [place] [address] [id number] ELADIA PAN Self - patient is [...]
--- OUTSIDE RECORDS SUMMARY | 2025-02-21 10:54 | XMS_ITS | Encounter Summary ---
Author Organization [facility] Address [address] [place] [address] Care Team Providers Care Glass Sagger Name Role Phone Destinee Britton MD Primary Care Provider [phone] Encounter Details Date Type Department Care Team (Latest Contact Info) Description 02/14/2025 Travel Social History Tobacco Use Types Packs/Day [...] How often do you attend orthodoxy or yazidi serv ices? Never 05/20/2024 Do you belong [...] any time in the past 12 m [facility], were you homeless or living in [...] Treatment [facility] [address] [facility] [address] [place] [address] Ofelia Blakely, DECK STEWARD 02/28/2025 6:00 PM EDT Treatment [facility] [address] [facility] [address] [place] [address] Delia Kwan, PT 08/15/2025 5:30 PM EST Office Visit [facility] [address] [place] [address] Jovita Salas CN [address] [place] [address] documented as of this encounter Visit Diagnoses Not on filedocumented in this encounter Care Teams Glass Sagger Relationship Specialty Start Date End Date Destinee Britton MD [address] [place] [address] PCP - General Family Medicine 11/12/22 documented as of this encounter
--- OUTSIDE RECORDS SUMMARY | 2025-02-21 10:54 | XMS_ITS | Encounter Summary ---
Author Organization [facility] Address [address] [facility] [place] [address] Care Team Providers Care Counter Sales Representative Name Role Phone Destinee Britton MD Primary Care Provider Encounter Details Date Type Department Care Team (Late st Contact Info) Description 02/15/2025 Telephone [facility] [address] [place] [address] Destinee Britton MD [address] [place] [address] Social History Tobacco Use Types [...] week 05/20/2024 How often do you attend cheondoism or jainism serv ices? Never 05/20/2024 Do you belong to any clubs o r organizations such as cheondoism groups, unions, fraternal or athletic groups, or [...] Recorded Patient Health Questionnaire-2 Score 0 05/20/2024 [facility] - Occupational [...] time in the past 12 m [facility], were you homeless or living in a [facility] (including now)? No 05/20/2024 Comments No Sex and Gender Information Value Date Recorded Sex Assigned at Female 06/25/2023 1:54 PM EST Legal Sex Female 6:57 PM EDT Gender Identity Female 06/25/2023 1:54 PM EST Sexual Orientation Not on file documented as of this encounter Miscellaneous Notes * Telephone Encounter - Mraci Reyes MA - 02/17/2025 2:33 PM EDT Notified pharmacy. * Telephone Encounter - Evon Loera - 02/15/2025 9:35 AM EDT Vm left at 9:13 am Ma, this is Jenn from [facility] in [place]. I am calling about a mutual patient. Edwige Patterson. Date of is 2000. I am calling about the spring tech 28 or the control you guys sent over the quantity on the prescription. They only come in packs at 28. So we needa quantity on that prescription to say 84 with 3 refills. If you could please either send over any prescription with the correct quantity or give us a callback that would be great. Our phone number here is [phone]. Again, this is Jenn from [facility] coming from a [facility] for Edwige Evans move 2000 for the spring tech or generic, nor just with [place], dial the control, calling the change quantity to 84 because they only come in back to 28 and we can not open the pack again, phone number [phone] if you want to call for change or send over a brand new prescription with the correct quantity of 84? Thank you. documented in this encounter Plan of Treatment Upcoming Encounters Date Type Department Care Team (Late st Contact Info) Description 02/24/2025 6:00 PM EDT Treatment [facility] [address] [facility] [address] [place] [address] Ofelia Blakely, PHOTOCOMPOSING KEYBOARD OPERATOR 02/28/2025 6:00 PM EDT Treatment [facility] [address] [facility] [address] [place] [address] Delia Kwan, PT 08/15/2025 5:30 PM EST Office Visit [facility] [address] [place] [address] Jovita Salas CN [address] [place] [address] documented as of this encounter Visit Diagnoses Not on filedocumented in this encounter Care Teams Counter Sales Representative Relationship Specialty Start Date End Date Destinee Britton MD [address] [place], [place] [id number] PCP - General Family Medicine 11/12/22 documented as of this encounter
--- OUTSIDE RECORDS SUMMARY | 2025-02-21 10:57 | XMS_ITS | CCD ---
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 Name Role Phone Radha Aguilera Attending Provider [...] Provider Unava ilable LOU Kraft Attending Provider [phone] Becky Guaman Admitting Unavailable Becky Guaman Attending Unavailable NO FAMILY, PHYSICIAN Primary Care Unavailable Becky Guaman Admitting Unavailable Becky Guaman Attending Unavailable NO FAMILY, PHYSICIAN Primary Care Unavailable Lexy Kraft Admitting Unavailable Lexy Kraft Attending Unavailable NO FAMILY, PHYSICIAN Primary Care Unavailable Tobi LANDIS, Destinee Sweeney Primary Care Provider Braniecki DO, Becky A Primary Care Provider BRANNABORCKI, BECKY A Primary Care Unavailable YOLI LAL Attending Unavailable BRANIECKI, BECKY A Primary Care Unavailable BRANIECKI, BECKY A Primary Care Unavailable PRIYANK GASPAR Attending Unavailable Braniecki DO, Becky Primary Care Provider Lacey Morton LPN Attending Provider Unavailable Giovana BOWEN, Mack Zimmerman Attending Provider Feliz Musa MD Attending Provider ROSANA, CHAD Giordano Attending Unavailable BRANIECKI, BECKY [...] Unavailable BRANIECKI, BECKY A Primary Care Unavailable ANGELONUBIA Attending Unavailable BRANIECKI, BECKY A Referring Unavailable [...] Unavailable BRANIECKI, BECKY A Primary Care Unavailable ANGELONUBIA Attending Unavailable BRANIECKI, BECKY A Referring Unavailable BRANIECKI, BECKY A Primary Care Unavailable ROSANA, CHAD Giordano Attending Unavailable BRANIECKI, BECKY A Referring Unavailable JERMANCKI, BECKY A Primary Care Unavailable ROSANA, CHAD Giordano Attending Unavailable JERMANFILIPPOI, BECKY A Referring Unavailable JERMANCKI, BECKY A Primary Care Unavailable ROSANA, CHAD Giordano Attending Unavailable ROMEI, BECKY A Referring Unavailable ROMEI, BECKY A Primary Care Unavailable ROSANA, CHAD Giordano Attending Unavailable JERMANFILIPPOI, BECKY A Referring Unavailable JERMANFILIPPOI, BECKY A Primary Care Unavailable Magdi LANDIS, Ty Wallace Attending Unavailable Ousmane DO, Becky Saldana Referring Un available Edwina LANDIS, Adam Aguilar Attending Unavail able Magdi LANDIS, Ty Wallace Attending Unavailable Magdi LANDIS, Ty Wallace Attending Unavailable Magdi LANDIS, Ty Wallace Attending Unavailable Unavailable Unavailable Unavailable Medications Current Medications Medication Drug Class(es) Dates Sig (Normalized) Sig (Original) baclofen 10 mg oral tablet (5 sources) gamma-Aminobutyric Acid-ergic Agonist Start: 01-11-2025 take 1 tablet by mouth once daily at bedtime Baclofen 10 mg tablet Active 10 MG PO Daily at bedtime January 11, 2025 12:00am Complies with drug therapy 24 hr buPROPion hydrochloride 300 mg extended release oral tablet (20 sources) Aminoketone Start: 01-11-2025 take 1 tablet by mouth once daily in the morning Bupropion Hcl (Wellbutrin Xl) 300 mg tablet extended release 24 hr Active 300 MG PO Every morning January 11, 2025 12:00am Complies with drug therapy Start: 09-09-2024 take 1 tablet by tonja th every twenty-four hours in the morning buPROPion [...] Active cetirizine hydrochloride 10 mg oral tablet (16 sources) Histamine-1 Receptor Antagonist take 1 tablet by mouth once daily cetirizine (ZyrTEC) 10 MG tablet TAKE 1 TABLET BY MOUTH EVERY DAY for 30 Days Active clotrimazole 10 mg/ml topical cream (2 sources) Azole Antifungal Start: 05-24-2024 End: 06-21-2024 clotrimazole (Lotrimin) 1 % cream Indications: Candidiasis Apply topically 2 (two) times a day for 28 days 30 g 2 05/24/2024 06/21/2024 Active Escitalopram (6 sources) Serotonin Reuptake Inhibitor Lexapro Active ethinyl estradiol 0.035 mg / norgestimate 0.25 mg oral tablet (20 sources) Progestin, Estrogen Start: 01-26-2025 take 1 tablet by mouth once daily Norgestimate-Eth Estradiol (Cex-Bw-Ftmcmh) 0.18/0.215/0.25 MG-25 MCG tablet Indications: Unwanted fertility TAKE 1 TABLET BY MOUTH EVERY DAY 84 tablet 01/26/2025 Active Start: 01-18-2025 End: 10-15-2025 take 1 tablet by mouth once daily norgestimate-ethinyl estradiol (Sprintec 28) 0.25-35 MG-MCG tablet Indications: Encounter for initial prescription of contraceptive pills Take 1 tablet by mouth Daily 90 tablet 3 02/14/2025 05/15/2025 Active Start: 08-10-2024 End: 08-10-2025 take 1 tablet by mouth once daily norgestimate-ethinyl estradiol (Ortho Tri-Cyclen LO) 0.18/0.215/0.25 MG-25 MCG tablet Indications: Unwanted fertility Take 1 tablet by mouth Daily 90 tablet 1 08/10/2024 08/10/2025 Active Start: 03-11-2024 End: 12-06-2024 take 1 tablet by mouth once daily norgestimate-ethinyl estradiol (Sprintec 28) 0.25-35 MG-MCG tablet Indications: Encounter for initial prescription of contraceptive pills Take 1 tablet by mouth Daily 90 tablet 2 03/11/2024 Active etodolac 400 mg oral tablet (4 sources) Nonsteroidal Anti-inflammatory Drug Start: 01-31-2025 take 1 tablet by mouth twice daily as needed etodolac (Lodine) 400 MG tablet Take 400 mg by mouth 2 (two) times a day as needed 01/31/2025 Active FLUoxetine 20 mg oral capsule (5 [...] Days Active gabapentin 300 mg oral capsule (20 sources) Anti-epileptic Agent Start: 11-24-2024 take 1 [...] cleanup) hydrOXYzine pamoate 25 mg oral capsule (20 sources) Antihistamine Start: 04-22-2024 take 1 capsule by mouth three times daily as needed hydrOXYzine pamoate (Vistaril) 25 MG capsule Take 25 mg by mouth 3 (three) times a day as needed 04/22/2024 Active ibuprofen 600 mg oral tablet (16 sources) Nonsteroidal Anti-inflammatory Drug ibuprofen 600 MG tablet PLEASE SEE ATTACHED FOR DETAILED DIRECTIONS for 8 Days Active lidocaine 0.05 mg/mg medicated patch (1 source) Antiarrhythmic, Amide Local Anesthetic Start: 11-24-2024 End: 12-04-2024 lidocaine (LIDODERM) 5 % Place 1 patch onto the skin daily for 10 days 12 hours on, 12 hours off. 10 patch 11/24/2024 12/04/2024 Active 24 hr metFORMIN hydrochloride 500 mg extended release oral tablet (20 sources) Biguanide Start: 02-14-2025 End: 02-14-2026 take 1 tablet by mouth every twenty-four hours at mealtime metFORMIN XR (Glucophage-XR) 500 MG 24 hr tablet Indications: PCOS (polycystic ovarian syndrome) Take 1 tablet (500 mg) by mouth in the evening. Take with meals Do not crush, chew, or split. 90 tablet 3 02/14/2025 02/14/2026 Active Start: 05-10-2024 End: 02-14-2025 take 1 tablet by mouth at mealtime metFORMIN (Glucophage) 500 MG tablet Indications: PCOS (polycystic ovarian syndrome) TAKE 1 TABLET (500 MG) BY MOUTH IN THE MORNING AND IN THE EVENING WITH MEALS 180 tablet 1 06/10/2024 02/14/2025 Discontinued methocarbamol 500 mg oral tablet (18 sources) Muscle Relaxant Start: 08-05-2024 End: 08-15-2024 [...] Active ondansetron 4 mg disintegrating oral tablet (15 sources) Serotonin-3 Receptor Antagonist Start: 11-28-2024 take 1 tablet by mouth every eight hours as needed for nausea ondansetron ODT (Zofran-ODT) 4 MG disintegrating tablet Take 4 mg by mouth every 8 (eight) hours if needed for nausea 11/28/2024 Active Start: 07-20-2024 End: 07-20-2024 4 mg, IntraVENous, ONCE, 1 d ose, On Fri07/20/24 at 1800 take 1 tablet by tonja th three times daily as needed Ondansetron 4 [...] Drug Class(es) Dates Sig (Normalized) Sig (Original) [id number] 200 actuat albuterol 0.09 mg/actuat metered dose [...] clavulanate 62.5 mg extended release oral tablet (5 sources) Penicillin-class Antibacterial Start: 10-10-2023 End: 11-11-2023 Amoxicillin-Pot Clavulanate (Augmentin Xr) 1,000-62.5 mg tablet extended release 12 hr Discontinued 1 TAB PO Every 12 hours October 10, 2023 12:00am November 11, 2023 7:49am Start: 05-12-2022 take 1 tablet by tonja every twelve hours Amoxicillin-Pot Clavulanate 875-125 MG 1 tablet Orally every 12 hrs for 10 day(s) May, Active ciprofloxacin 3 mg/ml / dexamethasone 1 mg/ml otic suspension (7 sources) Corticosteroid, Quinolone Antimicrobial Start: 11-11-2023 End: 01-11-2025 Ciprofloxacin-Dexamethasone 0.3-0.1 % drops,suspension Discontinued 4 DROPS EAR-BOTH Twice daily November 11, 2023 12:00am January 11, 2025 9:18am Start: 11-11-2023 Ciprofloxacin- Dexamethasone Active 4 DROPS EAR-BOTH Twice daily November 11, 2023 12:00am Start: 10-10-2023 End: 11-11-2023 Ciprofloxacin-Dexamethasone 0.3-0.1 % drops,suspension Discontinued 4 DROPS EAR-BOTH Every 12 hours 7.5 October 10, 2023 12:00am November 11, 2023 7:49am Start: 10-10-2023 End: 11-11-2023 Ciprofloxacin-Dexamethasone Discontinued 4 DROPS EAR-BOTH Every 12 hours 7.5 October 10, 2023 12:00am November 11, 2023 7:49am Start: 10-10-2023 Ciprofloxacin- Dexamethasone Active 4 DROPS EAR-BOTH Every 12 hours 7.5 October 10, 2023 12:00am cyclobenzaprine hydrochloride 10 mg oral tablet (20 sources) Muscle Relaxant Start: 07-20-2024 End: 07-20-2024 [...] dose dicyclomine hydrochloride 10 mg oral capsule (4 sources) Anticholinergic Start: 11-11-2023 End: 11-11-2023 take 1 capsule by mouth three times daily Dicyclomine 10 mg capsule Discontinued 10 MG PO Three times daily November 11, 2023 12:00am November 11, 2023 2:33pm take 1 capsule by [facility] every eight hours Dicyclomine HCl [...] 30 mg, IntraMUSCular, ONCE, 1 dose, On Fri08/05/24 at 1145, Do not administer for more [...] abdominal pain, unspecified] 12-03-2024 Episodic Adjustment disorders (20 sources) Adjustment disorder with anxious mood; Translations: [Adjustment disorder with anxiety] Onset: 12-26-2023 05-20-2024 Chronic Contraceptive and procreative management (5 sources) Patient encounter status; Translations: [Encounter for initial [...] [Spondylolisthesis, site unspecified] Episodic Other endocrine disorders (20 sources) Polycystic ovary syndrome; Translations: [Polycystic ovarian syndrome] Onset: 05-28-2024 05-10-2024 Chronic Other nervous system disorders (11 sources) Piriformis syndrome; Translations: [Lesion of sciatic nerve, right lower limb] Chronic Other nervous system disorders (20 sources) Chronic pain; Translations: [Other chronic pain] Onset: 05-20-2024 05-20-2024 Chronic Other nervous system disorders (1 source) Other chronic pain; Translations: [Other chronic pain] Onset: 11-24-2024 Chronic Other nervous system disorders (5 sources) Paresthesia; Translations: [Paresthesia of skin] 01-06-2025 Episodic Other non-traumatic joint disorders (1 source) Pain in left wrist Episodic Other nutritional; endocrine; and metabolic disorders (6 sources) Body mass index 30+ - obesity; Translations: [Body mass index (BMI) 39.0-39.9, adult] Chronic Other nutritional; endocrine; and metabolic disorders (1 source) Body mass index (BMI) 39.0-39.9, adult Chronic Other nutritional; endocrine; and metabolic disorders (2 sources) Insulin resistance; Translations: [Insulin resistance] 02-14-2025 Chronic Other skin disorders (2 sources) Hirsutism; Translations: [Hirsutism] 05-10-2024 Episodic Other upper respiratory disease (20 sources) Allergic rhinitis due to pollen; Translations: [Allergic rhinitis due to pollen] Onset: 05-20-2024 11-10-2023 Chronic Other upper respiratory infections (8 sources) Acute pharyngitis, unspecified; Translations: [Streptococcal pharyngitis] Onset: 02-06-2022 Resolved: 02-08-2022 Episodic Spondylosis; intervertebral disc disorders; other back problems (20 sources) Prolapsed lumbar intervertebral disc; Translations: [Other intervertebral disc displacement, lumbar region] Onset: 05-20-2024 05-20-2024 Chronic Spondylosis; intervertebral disc disorders; other back problems (20 sources) Chronic back pain ; Translations: [Dorsalgia, unspecified] Onset: 05-20-2024 11-10-2023 Episodic Unclassified (1 source) Pain in left wrist; Translations: [Pain in left wrist] Onset: 12-09-2022 Unclassified (1 source) Low back pain, unspecified; Translations: [Low back pain, unspecified] Onset: 11-24-2024 Past or Other Problems Problem Classification Problem Date Documented Date Episodic/Chronic Administrative/social admission (20 sources) Phase of life problem; Translations: [Problems of adjustment to life-cycle transitions] Onset: 04-25-2020 05-20-2024 Episodic Immunizations and screening for infectious disease (4 sources) Contact with and (suspected) exposure to other viral communicable diseases; Translations: [CONTCT EXPS OTH VIRL COMMUNICABL DZ] Onset: 05-13-2020 Episodic Other acquired deformities (20 sources) Acquired spondylolisthesis; Translations: [Spondylolisthesis, site unspecified] [...] unspecified] Onset: 08-14-2022 Episodic Other skin disorders (20 sources) Acne; Translations: [Acne, unspecified] Onset: 05-20-2024 10-10-2023 Episodic Otitis media and related conditions (20 sources) Acute bilateral otitis media ; Translations: [Otitis media, unspecified, bilateral] Onset: 05-20-2024 11-10-2023 Episodic Sprains and strains [...] Interpretation and review of laboratory results Normal [facility] Preg Test, Ur Negative Negative [facility] Urinalysis macro (dipstick) panel (U)on 12-03-2024 Bilirubin, UA 3+ Negative - 4(70) +++ mg/dL [facility] Blood, UA Negative Negative - 50 Aidan/mcL [facility] Clarity, UA Clear [facility] Color, UA Yellow [facility] Glucose, UA Negative Negative - 2000(110) ++++ mg/dL [facility] Interpretation and review of laboratory results Abnormal [facility] Ketones, UA Positive Negative - 160(16) ++++ mg/dL [facility] Leukocytes, UA 1+ Negative - 500+++ Samira/mcL [facility] Nitrite, UA Negative Negative - Positive [facility] pH, UA 6 5 - 9 [facility] Protein, UA 1+ Negative - 1999(20) ++++ mg/dL [facility] Spec Grav, UA 1.02 1 - 1.03 [facility] Urobilinogen, UA 0.2 0.2 - 12 mg/dL [...] Octavio Lowe MD 07/20/24 Final result Normal [facility] CT Lumbar spine WO contrasto n 07-20-2024 [...] facets throughout with no significant spinal stenosis. RUST RIS CONSOLIDATED EXAMINATION: CT OF THE LUMBAR [...] TISSUES/RETROPERITONE UM: No paraspinal mass is seen. RUST RIS CONSOLIDATED Octavio Lowe MD - 07/20/2024 [...] facets throughout with no significant spinal stenosis. [facility] Radiology Study observation (narrative) [facility] Lum[facility] WO contrastO rdered By: Octavio Lowe on 07-20-2024 [facility] Work Phone: HCG, ,Urineon 07-20 Beta HCG ( test) Ql (U) Negative Normal NEG [facility] Comment on above: Result Comment: Spec imens with hCG levels near the threshold of the test (25 mIU/mL) may give a negative or indeterminate result. In such cases, another test should be performed with a new specimen in 48-72 hours. If early is suspected clinically in this setting, correlation with quantitative serum b-hCG level is suggested. [facility] has confirmed the use of plasma for this test. This has not been cleared or approved by the U.S. Food and Drug Administration. The FDA has determined that such clearance is not necessary. Performed By: #### U HCG #### [facility] [address] [place] [address] Boat Tender: Roge Rios MD Microscopic Urinalysison Amorphous sediment LM Ql (Urine sed) 1+ Abnormal None [facility] Epithelial cells LM.HPF (Urine sed) [#/Area] 2 TO 5 [facility] Interpretation and review of laboratory results Abnormal [facility] RBC LM.HPF (Urine sed) [#/Area] 0 TO 2 [facility] Renal Epithelial, UA 2 TO 5 0 /HPF [facility] WBC LM.HPF (Urine sed) [#/Area] 5 TO 10 [facility] , Urineon HCG ( test) Ql (U) Negative NEGATIVE [facility] Comment on above: Specimens with hCG l evels near the threshold of the test (25 mIU/mL) may give a negative or indeterminate result. In such cases, another test should be performed with a new specimen in 48-72 hours. If early is suspected clinically in this setting, correlation with quantitative serum b-hCG level is suggested. [facility] has confirmed the use of plasma for this test. This has not been cleared or approved by the U.S. Food and Drug Administration. The FDA has determined that such clearance is not necessary. [facility] Urinalysison 07-20-2024 Bilirubin Ql (U) Negative NEGATIVE [facility] Clarity (U) SLIGHTLY CLOUDY Abnormal Clear [facility] Color (U) Yellow Yellow [facility] Glucose Test strip (U) [Mass/Vol] Negative NEGATIVE mg/dL [facility] Hemoglobin Auto test strip Ql (U) Negative NEGATIVE [facility] Interpretation and review of laboratory results Abnormal [facility] Ketones (U) [Mass/Vol] Negative NEGAT AUGUSTINE mg/dL [facility] Leukocyte esterase Test strip Ql (U) SMALL Abnormal NEGATIVE [facility] Nitrite Ql (U) Negative NEGATIVE [facility] pH (U) 8.0 [pH] 5.0 - 9.0 [facility] Protein (U) [Mass/Vol] Negative NEGAT AUGUSTINE mg/dL [facility] Specific gravity (U) [Rel density] 1.020 1.010 - 1.020 [facility] Urobilinogen Qn (U) Normal 0.0 - 1. 0 EU/dL [facility] Urinalysis, Routineon 2024 Bilirubin, SemiQt,Ur Negative Normal NEG [facility] Comment on above: Performed By: #### U BHAVANI Barber #### [facility] [address] [place] [address] [place] [place], [place] [id number] Boat Tender: Roge Rios MD Blood, Urine Negative Normal NEG [facility] Comment on above: Performed By: #### U A, UMICAO #### [facility] [address] [place] [address] [place] [place], [place] [id number] Boat Tender: Roge Rios MD Clarity (U) SLIGHTLY CLOUDY Abnormal CLEAR [facility] Comment on above: Performed By: #### U A, UMICAO #### [facility] [address] [place] [address] [place] [place], [place] [id number] Boat Tender: Roge Rios MD Color (U) Yellow Normal YEL [facility] Comment on above: Performed By: #### U A, UMICAO #### [facility] [address] [place] [address] Dr[address] [place], [place] [id number] Boat Tender: Roge Rios MD Glucose Ql (U) Negative Normal NEG [facility] Comment on above: Performed By: #### U A, UMICAO #### [address] [place], [place] [id number] Boat Tender: Roge Rios MD Ketones Ql (U) Negative Normal NEG [facility] Comment on above: Performed By: #### U A, UMICAO #### [facility] [address] [place] [address] [place] [place], [place] [id number] Boat Tender: Roge Rios MD Leukocyte esterase Test strip Ql (U) SMALL Abnormal NEG [facility] Comment on above: Performed By: #### U A, UMICAO #### [facility] [address] [place] [address] [address] [place], [place] [id number] Boat Tender: Roge Rios MD Nitrite,Ur Negative Normal [facility] Comment on above: Performed By: #### U A, UMICAO #### [facility] [address] [place], [place] [id number] Boat Tender: Roge Rios MD PH,Ur 8.0 Normal 5.0-9.0 [facility] Comment on above: Performed By: #### U A, UMICAO #### [facility] [address] [place] [address] [address] [place], [place] [id number] Boat Tender: Roge Rios MD Protein Ql (U) Negative Normal NEG [facility] Comment on above: Performed By: #### U A, UMICAO #### [address] [place], [place] [id number] Boat Tender: Roge Rios MD Spec. [place],Ur 1.020 Normal 1.010-1.020 [facility] Comment on above: Performed By: #### U A, UMICAO #### [address] [place], [place] [id number] Boat Tender: Roge Rios MD Urobilinogen,Ur Normal Normal 0.0-1.0 [facility] Comment on above: Performed By: #### U A, UMICAO #### [address] [place], [place] [id number] Boat Tender: Roge Rios MD Urinalysis,Microon 5 Amorphous sediment LM Ql (Urine sed) 1+ Abnormal NONE [facility] Comment on above: Performed By: #### U A, UMICAO #### [facility] [address] [place] [address] [place] [place], [place] [id number] Boat Tender: Roge Rios MD Epithelial cells LM Ql (Urine sed) 2 TO 5 Normal 0-25 [facility] Comment on above: Performed By: #### U A, UMICAO #### [address] [place], [place] [id number] Boat Tender: Roge Rios MD Epithelial, Renal 2 TO 5 Normal 0 [facility] Comment on above: Performed By: #### U A, UMICAO #### [facility] [address] [place] [address] Boat Tender: Roge Rios MD Urine RBC's 0 TO 2 Normal 0-2 [facility] Comment on above: Performed By: #### U A, UMICAO #### [facility] [address] [place] [address] Boat Tender: Roge Rios MD Urine WBC's 5 TO 10 Normal 0-5 [facility] Comment on above: Performed By: #### U A, JHONATANO #### [facility] [address] [place] [address] Boat Tender: Roge Rios MD COVID + FLU Quick Testingon 07-09-2023 SARS-CoV-2 (COVID-19) RNA THA+probe Ql (Unsp spec) Negative [facility] [employer] Other COVID + FLU Quick Testing Negative [facility] [employer] Other XR wrist LT min 3V*on 2022 XR wrist LT min 3V* [facility] [employer] Other XR wrist LT min 3V* [facility] [employer] Other XR wrist LT min 3V* [address] [place] [address] [employer] Other XR wrist LT min 3V* [place] [address] Located Within [facility] [employer] Other XR wrist LT min 3V* XRay Report [employer] Other XR wrist LT min 3V* Signed [employer] Other XR wrist LT min 3V* Patient: Edwige Patterson MR#: [id number] [employer] Other XR wrist LT min 3V* [id number] [employer] Other XR wrist LT min 3V* : 2000 Acct:[id number] [employer] Other XR wrist LT min 3V* Age/Sex: 22 / F ADM Date: 12/09/22 [employer] Other XR wrist LT min 3V* Loc: XDUCLY Room: Type: REG CLI [employer] Other XR wrist LT min 3V* Attending Dr: Lexy BLAKE [employer] Other XR wrist LT min 3V* Copies to: LOU Hernandez [employer] Other XR wrist LT min 3V* Ordering Provider: LOU Hernandez [employer] Other XR wrist LT min 3V* Date of Service: 12/09/22 [employer] Other XR wrist LT min 3V* XR/XR wrist LT min 3V*: Left wrist pain [employer] Other XR wrist LT min 3V* ([id number]) XR/XR hand LT min 3V*: Left wrist pain [employer] Other XR wrist LT min 3V* 3 views LEFT hand plain film [employer] Other XR wrist LT min 3V* COMPARISON: None [employer] Other XR wrist LT min 3V* HISTORY: LEFT hand injury. Pain involving the distal middle finger. Dorsal wrist pain [employer] Other XR wrist LT min 3V* ACUTE FINDINGS: None [employer] Other XR wrist LT min 3V* DEGENERATIVE CHANGE: Unremarkable [employer] Other XR wrist LT min 3V* SOFT TISSUE FINDINGS : Unremarkable [employer] Other XR wrist LT min 3V* JOINT EFFUSION: None [employer] Other XR wrist LT min 3V* POSTOP CHANGES: None [employer] Other XR wrist LT min 3V* BONY MINERALIZATION: Adequate [employer] Other XR wrist LT min 3V* XR/XR hand LT min 3V* [employer] Other XR wrist LT min 3V* IMPRESSION: No acute findings [employer] Other XR wrist LT min 3V* 4 views LEFT wrist plain film [employer] Other XR wrist LT min 3V* BONE MINERALIZATION: Adequate [employer] Other XR wrist LT min 3V* IMPRESSION: No acute bony findings. [employer] Other XR wrist LT min 3V* Impression dictated by: Misbah Mast M.D.12/09/2022 11:59 AM [employer] Other XR wrist LT min 3V* Dictation Location: [place] [address] [employer] Other XR wrist LT min 3V* Transcribed By: PWS 12/09/22 1159 [employer] Other XR wrist LT min 3V* Dictated By: Misbah Mast DO 12/09/22 1158 [employer] Other XR wrist LT min 3V* Signed By: [employer] Other XR wrist LT min 3V* 12/09/22 1159 No rt [employer] Other XR wrist LT min 3V* [facility] Main [place] [address] [place] [id number] XRay Report Signed Patient: Edwige Patterson MR#: [id number] : 2000 Acct:[id number] Age/Sex: 22 / F ADM Date: 12/09/22 Loc: XDUC Room: Type: [facility] Attending Dr: Lexy BLAKE Copies to: LOU Hernandez Ordering Provider: LOU Hernandez Date of Service: 12/09/22 XR/XR wrist LT min 3V*: Left wrist pain ([id number]) XR/XR hand LT min 3V*: Left wrist [...] Misbah Mast M.D.12/09/2022 11:59 AM Dictation Location: [place] [address] Transcribed By: [facility] 12/09/22 1159 Dictated By: Misbah Mast DO 12/09/22 1158 Signed By: 12/09/22 1159 Normal [facility] A1C with Estimated Average G jaredn 08-14-2022 HbA1c (Bld) [Mass fraction] 5.200 % Normal 4.3-5.6 % Located Within [facility] [employer] Other HbA1c (Bld) [Mass fraction] 103 mg/dL Located Within [facility] [employer] Other Glucose [Mass/Vol] 103 mg/dL Normal [facility] Comment on above: Result Comment: PERF ORMED BY: [place] [id number] PATHOLOGIST MACHINE CELL TUBER KULWANT GOMEZ M.D. Performed By: #### C BC, TSH3, CMP, A1C WTH eA, LIPID #### [address] HbA1c (Bld) [Mass fraction] 5.2 % Normal 4.3-5.6 [facility] Comment on above: Result Comment: Incr eased risk for diabetes: 5.7 - 6.4 diabetes: >6.4 glycemic control for adults with diabetes: <7.0 Performed By: #### C BC, TSH3, CMP, A1C WTH eA, LIPID #### [facility] [address] Albumin [Mass/volume] in Ser um or PlasmaOrdered By: Becky Guaman on 08-14-2022 Albumin [Mass/Vol] 3.9 g/dL 3.2-5.5 [facility] Basophils Auto (Bld) [#/Vol] Ordered By: Becky Guaman on 08-14-2022 Basophils (Bld) [#/Vol] 0.0 10*3/uL 0.0-0.2 [facility] Basophils/100 WBC Auto (Bld) Ordered By: Becky Guaman on 08-14-2022 Basophils/100 WBC (Bld) 0.6 % . F [facility] Cholesterol [Mass/volume] in Serum or PlasmaOrdered By: Becky Guaman on 08-14-2022 Cholesterol [Mass/Vol] 195 mg/dL Normal 140-2 00 mg/dL [facility] Comment on above: Chol less than 200 m g/dl low riskChol 201-239 mg/dl borderline riskChol 240 mg/dl and greater high risk Cholesterol in LDL Calc [Mas s/Vol]Ordered By: Becky Guaman on 08-14-2022 Cholesterol in LDL [Mass/Vol] 146 mg/dL 0-100 [facility] Comment on above: LDL ATP III CLASSIFI CATIONLDL less than 100 mg/dL OptimalLDL 100-129 mg/dL Near or above optimalLDL 130-159 mg/dL Borderline highLDL 160-189 mg/dL HighLDL greater than 189 mg/dL Very high Cholesterol in VLDL Calc [Ma ss/Vol]Ordered By: Becky Guaman on 08-14-2022 Cholesterol in VLDL [Mass/Vol] 16 mg/dL [facility] Complete Blood Count Auto Di ffon 08-14-2022 Basophils (Bld) [#/Vol] 0.195101409 10*3/uL Normal 0.0-0.2 10*3/uL [employer] Other Basophils/100 WBC (Bld) 0.600 % . % N [email or web address] Other Eosinophils (Bld) [#/Vol] 0.974782615 10*3/uL Normal 0.0-0.45 10*3/uL [employer] Other Eosinophils/100 WBC (Bld) 2.300 % . % [employer] Other Erythrocyte distribution width (RBC) [Ratio] 12.400 % Normal 11.9-15.3 % [employer] Other Hematocrit (Bld) [Volume fraction] 39.700 % Normal 34.0-46.4 % [employer] Other Hemoglobin (Bld) [Mass/Vol] 13.650904 g/dL Normal 11.8-15.4 g/dL [employer] Other Lymphocytes (Bld) [#/Vol] 1.786420633 10*3/uL Normal 1.00-4.8 10*3/uL [employer] Other Lymphocytes/100 WBC (Bld) 22.500 % . % [employer] Other MCH (RBC) [Entitic mass] 30.2000 pg Normal 24.7-34.3 pg [employer] Other MCV (RBC) [Entitic vol] 90.5000 fL Normal 80-100 fL [email or web address] Other Monocytes (Bld) [#/Vol] 0.033888841 10*3/uL Normal 0.0-0.8 10*3/uL [employer] Other Monocytes/100 WBC (Bld) 6.800 % . % N [email or web address] Other Neutrophils (Bld) [#/Vol] 3.087397616 10*3/uL Normal 1.8-7.7 10*3/uL [employer] Other Neutrophils/100 WBC (Bld) 67.800 % . % [employer] Other Platelet mean volume (Bld) [Entitic vol] 9.0000 fL Normal 6.3-10.7 fL [employer] Other WBC (Bld) [#/Vol] 5.599827942 10*3/uL Normal 3.8 -11.6 10*3/uL [employer] Other Complete Blood Count Auto Diff 5.6 10*3/uL Normal 3.8-11.6 10*3/uL [employer] Other Complete Blood Count Auto Diff 33.4 g/dL Normal 32.0-35.0 g/dL [employer] Other Complete Blood Count Auto Diff 0.3 /100{WBC} Normal 0-0.5 /100{WBC} [employer] Other Basophils (Bld) [#/Vol] 0.0 10*3/uL Normal 0.0-0.2 [facility] Comment on above: Result Comment: PERF ORMED BY: [place] [address] PATHOLOGIST MACHINE CELL TUBER KULWANT GOMEZ M.D. Performed By: #### C BC, TSH3, CMP, A1C [facility] eA, LIPID #### [facility] [address] [place] [id number] [place] Basophils/100 WBC (Bld) 0.6 % Normal . F [facility] Comment on above: Performed By: #### C BC, TSH3, CMP, A1C [facility] eA, LIPID #### [facility] [address] [place] [id number] [place] Eosinophils (Bld) [#/Vol] 0.1 10*3/uL Normal 0.0-0.45 [facility] Comment on above: Performed By: #### C BC, TSH3, CMP, A1C WTH eA, LIPID #### [facility] [address] [place] [address] [place] Eosinophils/100 WBC (Bld) 2.3 % Normal . [facility] Comment on above: Performed By: #### C BC, TSH3, CMP, A1C WTH eA, LIPID #### [facility] [address] Erythrocyte distribution width (RBC) [Ratio] 12.4 % Normal 11.9-15.3 [facility] Comment on above: Performed By: #### C BC, TSH3, CMP, A1C WTH eA, LIPID #### [address] Hematocrit (Bld) [Volume fraction] 39.7 % Normal 34.0-46.4 [facility] Comment on above: Performed By: #### C BC, TSH3, CMP, A1C WTH eA, LIPID #### [address] Hemoglobin (Bld) [Mass/Vol] 13.2 g/dL Normal 11.8-15.4 [facility] Comment on above: Performed By: #### C BC, TSH3, CMP, A1C WTH eA, LIPID #### [address] Lymphocytes (Bld) [#/Vol] 1.3 10*3/uL Normal 1.00-4.8 [facility] Comment on above: Performed By: #### C BC, TSH3, CMP, A1C WTH eA, LIPID #### [place] [address] [place] Lymphocytes/100 WBC (Bld) 22.5 % Normal . [facility] Comment on above: Performed By: #### C BC, TSH3, CMP, A1C WTH eA, LIPID #### [address] MCH (RBC) [Entitic mass] 30.2 pg Normal 24.7-34.3 [facility] Comment on above: Performed By: #### C BC, TSH3, CMP, A1C WTH eA, LIPID #### [facility] [address] [place] [address] [place] MCV (RBC) [Entitic vol] 90.5 fL Normal 80-100 [facility] Comment on above: Performed By: #### C BC, TSH3, CMP, A1C WTH eA, LIPID #### [facility] [address] [place] [address] [place] Mean Corpuscular HGB Conc 33.4 g/dL Normal 32.0-35.0 [facility] Comment on above: Performed By: #### C BC, TSH3, CMP, A1C WTH eA, LIPID #### [facility] [address] [place] [address] [place] Monocytes (Bld) [#/Vol] 0.4 10*3/uL Normal 0.0-0.8 [facility] Comment on above: Performed By: #### C BC, TSH3, CMP, A1C WTH eA, LIPID #### [facility] [address] [place] [address] [place] Monocytes/100 WBC (Bld) 6.8 % Normal . F [facility] Comment on above: Performed By: #### C BC, TSH3, CMP, A1C WTH eA, LIPID #### [facility] [address] [place] [address] [place] Neutrophils (Bld) [#/Vol] 3.8 10*3/uL Normal 1.8-7.7 [facility] Comment on above: Performed By: #### C BC, TSH3, CMP, A1C WTH eA, LIPID #### [facility] [address] [place] [address] [place] Neutrophils/100 WBC (Bld) 67.8 % Normal . [facility] Comment on above: Performed By: #### C BC, TSH3, CMP, A1C WTH eA, LIPID #### [facility] [address] [place] [address] [place] NRBC% 0.3 /100{WBC} Normal 0-0.5 [facility] Comment on above: Performed By: #### C BC, TSH3, CMP, A1C WTH eA, LIPID #### [facility] [address] Platelet mean volume (Bld) [Entitic vol] 9.0 fL Normal 6.3-10.7 [facility] Comment on above: Performed By: #### C BC, TSH3, CMP, A1C WTH eA, LIPID #### [facility] [address] [place] [id number] [place] Platelets (Bld) [#/Vol] 232 10*3/uL Normal 150-450 [facility] Comment on above: Performed By: #### C BC, TSH3, CMP, A1C WTH eA, LIPID #### [facility] [address] RBC (Bld) [#/Vol] 4.38 10*6/uL Normal 3.60-5.00 [facility] Comment on above: Performed By: #### C BC, TSH3, CMP, A1C WTH eA, LIPID #### [facility] [address] WBC (Bld) [#/Vol] 5.6 10*3/uL Normal 3.8-11.6 [facility] Comment on above: Performed By: #### C BC, TSH3, CMP, A1C WTH eA, LIPID #### [facility] [address] Comprehensive Metabolic Pane amandeep 08-14-2022 Albumin [Mass/Vol] 3.521906 g/dL Normal 3.2-5.5 g/dL [facility] [employer] Other Bilirubin [Mass/Vol] 0.0253633 mg/dL Normal 0.3- 1.2 mg/dL [employer] Other Calcium [Mass/Vol] 9.4378149 mg/dL Normal 8.2-10 .2 mg/dL [employer] Other CO2 [Moles/Vol] 23.61924689 mmol/L Normal 22.0-3 0.0 mmol/L [employer] Other Creatinine [Mass/Vol] 0.17631152 mg/dL Normal 0. 44-1.03 mg/dL Located Within [facility] [employer] Other Potassium [Moles/Vol] 3.88178523 mmol/L Normal 3 .5-5.1 mmol/L [facility] [employer] Other Protein [Mass/Vol] 6.074253 g/dL Normal 6.1-7.9 g/dL [facility] [employer] Other Comprehensive Metabolic Panel > 60 Located Within [facility] [employer] Other Comprehensive Metabolic Panel 2.7 g/dL Located Within [facility] [employer] Other Albumin [Mass/Vol] 3.9 g/dL Normal 3.2-5.5 [facility] Comment on above: Performed By: #### C BC, TSH3, CMP, A1C WTH eA, LIPID #### [facility] [address] Albumin/Globulin [Mass ratio] 1.4 {ratio} Normal [facility] Comment on above: Performed By: #### C BC, TSH3, CMP, A1C WTH eA, LIPID #### [facility] [address] ALP [Catalytic activity/Vol] 69 U/L Normal 32-92 [facility] Comment on above: Performed By: #### C BC, TSH3, CMP, A1C WTH eA, LIPID #### [facility] [address] [place] [id number] [place] ALT [Catalytic activity/Vol] 34 U/L Normal 10-60 Located Within [facility] [employer] Other Comment on above: Performed By: #### C BC, TSH3, CMP, A1C WTH eA, LIPID #### [facility] [address] [place] [id number] [facility] Anion gap [Moles/Vol] 9.7 mmol/L Normal 6.0-15.0 [facility] Comment on above: Performed By: #### C BC, TSH3, CMP, A1C WTH eA, LIPID #### [facility] [address] AST [Catalytic activity/Vol] 30 U/L Normal 10-42 [facility] Comment on above: Performed By: #### C BC, TSH3, CMP, A1C WTH eA, LIPID #### [facility] [address] Bilirubin [Mass/Vol] 0.7 mg/dL Normal 0.3-1.2 [facility] Comment on above: Performed By: #### C BC, TSH3, CMP, A1C WTH eA, LIPID #### [facility] [address] Calcium [Mass/Vol] 9.2 mg/dL Normal 8.2-10.2 [facility] Comment on above: Performed By: #### C BC, TSH3, CMP, A1C WTH eA, LIPID #### [facility] [address] Chloride [Moles/Vol] 108 mmol/L Normal 95-114 [facility] Comment on above: Performed By: #### C BC, TSH3, CMP, A1C WTH eA, LIPID #### [facility] [address] CO2 [Moles/Vol] 23.1 mmol/L Normal 22.0-30.0 [facility] Comment on above: Performed By: #### C BC, TSH3, CMP, A1C WTH eA, LIPID #### [facility] [address] [place] [address] [place] Creatinine [Mass/Vol] 0.75 mg/dL Normal 0.44-1.03 [facility] Comment on above: Performed By: #### C BC, TSH3, CMP, A1C WTH eA, LIPID #### [facility] [address] Estimated GFR ( [place] > 60 Normal [facility] Comment on above: Result Comment: GFR estimated reference range: According to KDOQI guidelines, <60 ml/min/1.73m2 is sufficient to diagnose a patient with chronic kidney disease. Performed By: #### C BC, TSH3, CMP, A1C WTH eA, LIPID #### [facility] [address] [place] [address] [place] Estimated GFR (Non- Am > 60 Normal [facility] Comment on above: Performed By: #### C BC, TSH3, CMP, A1C WTH eA, LIPID #### [facility] [address] Globulin (S) [Mass/Vol] 2.7 g/dL Normal F [facility] Comment on above: Performed By: #### C BC, TSH3, CMP, A1C WTH eA, LIPID #### [facility] [address] Glucose [Mass/Vol] 87 mg/dL Normal 70-100 [facility] Comment on above: Result Comment: [facility] Glucose Reference Range is dependent on time and content of last meal. Glucose of more than 200 mg/dL in a nonstressed, ambulatory subject supports the diagnosis of Diabetes Mellitus. ADA recommended reference range Performed By: #### C BC, TSH3, CMP, A1C WTH eA, LIPID #### [facility] [address] [place] [address] [place] Potassium [Moles/Vol] 3.8 mmol/L Normal 3.5-5.1 [facility] Comment on above: Performed By: #### C BC, TSH3, CMP, A1C WTH eA, LIPID #### [facility] [address] [place] [address] [place] Protein [Mass/Vol] 6.6 g/dL Normal 6.1-7.9 [facility] Comment on above: Performed By: #### C BC, TSH3, CMP, A1C WTH eA, LIPID #### [facility] [address] [place] [address] [place] Sodium [Moles/Vol] 137 mmol/L Normal 136-146 [facility] Comment on above: Performed By: #### C BC, TSH3, CMP, A1C WTH eA, LIPID #### [facility] [address] [place] [address] [place] Urea nitrogen [Mass/Vol] 5 mg/dL Low 9-23 [facility] Comment on above: Performed By: #### C BC, TSH3, CMP, A1C WTH eA, LIPID #### [facility] [address] Creatinine and Glomerular fi ltration rate.predicted panel (S/P/Bld)Ordered By: Becky Guaman on 08-14-2022 Creatinine [Mass/Vol] 0.75 mg/dL 0.44-1.03 [facility] Eosinophils Auto (Bld) [#/Vo l]Ordered By: Becky Guaman on 08-14-2022 Eosinophils (Bld) [#/Vol] 0.1 10*3/uL 0.0-0.45 [facility] Eosinophils/100 WBC Auto (Bl d)Ordered By: Becky Guaman on 08-14-2022 Eosinophils/100 WBC (Bld) 2.3 % . [facility] Erythrocyte distribution wid th Auto (RBC) [Ratio]Ordered By: Becky Guaman on 08-14-2022 Erythrocyte distribution width (RBC) [Ratio] 12.4 % 11.9-15.3 [facility] Erythrocytes [#/volume] in B lood by Automated countOrdered By: Becky Guaman on 08-14-2022 RBC (Bld) [#/Vol] 4.38 10*6/uL Normal 3.60-5.00 [facility] Estimated glomerular filtrat ion rate (GFR) non- AmericanOrdered By: Becky Guaman on 08-14-2022 GFR/1.73 sq M.predicted among non-blacks MDRD (S/P/Bld) [Vol rate/Area] > 60 mL/Min [facility] Globulin Calc (S) [Mass/Vol] Ordered By: Becky Guaman on 08-14-2022 Globulin (S) [Mass/Vol] 2.7 g/dL F [facility] Hematocrit Auto (Bld) [Volum e fraction]Ordered By: Becky Guaman on 08-14-2022 Hematocrit (Bld) [Volume fraction] 39.7 % 34.0-46.4 [facility] Hemoglobin [Mass/volume] in BloodOrdered By: Becky Guaman on 08-14-2022 Hemoglobin (Bld) [Mass/Vol] 13.2 g/dL 11.8-15.4 [facility] Leukocytes [#/volume] correc kalyani for nucleated erythrocytes in Blood by Automated counOrdered By: Becky Guaman on 08-14-2022 WBC corrected for nucl RBC Auto (Bld) [#/Vol] 5.6 10*3/uL 3.8-11.6 [facility] Lipid Panelon 08-14-2022 Cholesterol in LDL Elph Qn 146 mg/dL High 0-100 mg/dL Located Within [facility] [employer] Other Lipid Panel 84 mg/dL Normal 35-149 mg/dL Located [facility] [employer] Other Lipid Panel 16 mg/dL Located [facility] [employer] Other Cholesterol [Mass/Vol] 195 mg/dL Normal 140-200 [facility] Comment on above: Result Comment: Chol less than 200 mg/dl low risk Chol 201-239 mg/dl borderline risk Chol 240 mg/dl and greater high risk Performed By: #### C BC, TSH3, CMP, A1C WTH eA, LIPID #### [facility] [address] [place] [address] [place] Cholesterol in HDL [Mass/Vol] 32 mg/dL Low 35-85 [facility] Comment on above: Result Comment: HDL CHOL ATP-III CLASSIFICATION Cardiovascular Risk HDL > or equal to 60 mg/dL LOW HDL < 40 mg/dL HIGH Performed By: #### C BC, TSH3, CMP, A1C WTH eA, LIPID #### [facility] [address] [place] [address] [place] Cholesterol.total/Vero sterol in HDL [Mass ratio] 6.1 {ratio} Normal <5.0 [facility] Comment on above: Performed By: #### C BC, TSH3, CMP, A1C WTH eA, LIPID #### [facility] [address] [place] [id number] [place] LDL Cholesterol,Calculated 146 mg/dL High 0-100 [facility] Comment on above: Result Comment: LDL ATP III CLASSIFICATION LDL less than 100 mg/dL Optimal LDL 100-129 mg/dL Near or above optimal LDL 130-159 mg/dL Borderline high LDL 160-189 mg/dL High LDL greater than 189 mg/dL Very high Performed By: #### C BC, TSH3, CMP, A1C WTH eA, LIPID #### [facility] [address] Triglyceride w/Reflex 84 mg/dL Normal 35-149 [facility] Comment on above: Result Comment: TRIG ATP III CLASSIFICATION TRIG less than 150 mg/dL Normal TRIG 150-199 mg/dL Borderline high TRIG 200-500 mg/dL High TRIG greater than 500 mg/dL Very high Standard traceable to the Center for Disease Conrtrol and Prevention (CDC) test method. Performed By: #### C BC, TSH3, CMP, A1C WT eA, LIPID #### [facility] [address] VLDL CHOLESTEROL 16 mg/dL Normal [facility] Comment on above: Performed By: #### C BC, TSH3, CMP, A1C [facility] eA, LIPID #### [facility] [address] Lymphocytes Auto (Bld) [#/Vo l]Ordered By: Becky Guaman on 08-14-2022 Lymphocytes (Bld) [#/Vol] 1.3 10*3/uL 1.00-4.8 [facility] Lymphocytes/100 WBC Auto (Bl d)Ordered By: Becky Guaman on 08-14-2022 Lymphocytes/100 WBC (Bld) 22.5 % . [facility] MCH Auto (RBC) [Entitic mass ]Ordered By: Becky Guaman on 08-14-2022 MCH (RBC) [Entitic mass] 30.2 pg 24.7-34.3 [facility] MCHC Auto (RBC) [Mass/Vol]Or dered By: Becky Guaman on 08-14-2022 MCHC (RBC) [Mass/Vol] 33.4 g/dL 32.0-35.0 [facility] MCV Auto (RBC) [Entitic vol] Ordered By: Becky Guaman on 08-14-2022 MCV (RBC) [Entitic vol] 90.5 fL 80-100 [facility] Monocytes Auto (Bld) [#/Vol] Ordered By: Becky Guaman on 08-14-2022 Monocytes (Bld) [#/Vol] 0.4 10*3/uL 0.0-0.8 [facility] Monocytes/100 WBC Auto (Bld) Ordered By: Becyk Guaman on 08-14-2022 Monocytes/100 WBC (Bld) 6.8 % . [facility] Neutrophils Auto (Bld) [#/Vo l]Ordered By: Becky Guaman on 08-14-2022 Neutrophils (Bld) [#/Vol] 3.8 10*3/uL 1.8-7.7 [facility] Neutrophils/100 WBC Auto (Bl d)Ordered By: Becky Guaman on 08-14-2022 Neutrophils/100 WBC (Bld) 67.8 % . [facility] No Panel InformationOrdered By: Becky Guaman on 08-14-2022 Estimated GFR () > 60 mL/Min [facility] Comment on above: GFR estimated refere nce range: According to KDOQI guidelines, <60 ml/min/1.73m2 is sufficient to diagnose a patient with chronic kidney disease. Pharmacy Creatinine Clearance (Chem N/A [facility] Nucleated erythrocytes [Pres ence] in Blood by Automated countOrdered By: Becky Guaman on 08-14-2022 Nucleated RBC Auto Ql (Bld) 0.3 /100{WBC} 0-0.5 [facility] Platelet mean volume Auto (B ld) [Entitic vol]Ordered By: Becky Guaman on 08-14-2022 Platelet mean volume (Bld) [Entitic vol] 9.0 fL 6.3-10.7 [facility] Platelets [#/volume] in Bloo d by Automated countOrdered By: Becky Guaman on 08-14-2022 Platelets (Bld) [#/Vol] 232 10*3/uL Normal 150- 450 10*3/uL [facility] Protein [Mass/volume] in Ser um or PlasmaOrdered By: Becky Guaman on 08-14-2022 Protein [Mass/Vol] 6.6 g/dL 6.1-7.9 [facility] Serum or plasma alanine kinsey otransferase measurement without P-5'-P (enzymatic activiOrdered By: Becky Guaman on 08-14-2022 ALT No additional P-5'-P [Catalytic activity/Vol] 34 U/L 10-60 [facility] Serum or plasma albumin/glob ulin mass ratioOrdered By: Becky Guaman on 08-14-2022 Albumin/Globulin [Mass ratio] 1.4 {ratio} [facility] Serum or plasma alkaline jean claude sphatase measurement (enzymatic activity/volume)Ordered By: Becky Guaman on 08-14-2022 ALP [Catalytic activity/Vol] 69 U/L Normal 32-92 U/L [facility] Serum or plasma anion gap de terminationOrdered By: Becky Guaman on 08-14-2022 Anion gap [Moles/Vol] 9.7 mmol/L 6.0-15.0 [facility] Serum or plasma aspartate am inotransferase measurement (enzymatic activity/volume)Ordered By: Becky Guaman on 08-14-2022 AST [Catalytic activity/Vol] 30 U/L Normal 10-42 U/L [facility] Serum or plasma calcium daily urement (mass/volume)Ordered By: Becky Guaman on 08-14-2022 Calcium [Mass/Vol] 9.2 mg/dL 8.2-10.2 [facility] Serum or plasma chloride julisa surement (moles/volume)Ordered By: Becky Guaman on 08-14-2022 Chloride [Moles/Vol] 108 mmol/L Normal 95-114 mmol/L [facility] Serum or plasma glucose daily urement (mass/volume)Ordered By: Becky Guaman on 08-14-2022 Glucose [Mass/Vol] 87 mg/dL Normal 70-100 mg/dL [facility] Comment on above: ADA recommended refe rence rangeRandom Glucose Reference Range is dependent on time and content of last meal. Glucose of more than 200 mg/dL in a nonstressed, ambulatory subject supports the diagnosis of Diabetes Mellitus. Serum or plasma high density lipoprotein (HDL) cholesterol measurementOrdered By: Becky Guaman on 08-14-2022 Cholesterol in HDL [Mass/Vol] 32 mg/dL Low 35-85 mg/dL [facility] Comment on above: HDL CHOL ATP-III CLA SSIFICATION Cardiovascular RiskHDL > or equal to 60 mg/dL LOWHDL < 40 mg/dL HIGH Serum or plasma potassium me asurement (moles/volume)Ordered By: Becky Guaman on 08-14-2022 Potassium [Moles/Vol] 3.8 mmol/L 3.5-5.1 [facility] Serum or plasma sodium measu rement (moles/volume)Ordered By: Becky Guaman on 08-14-2022 Sodium [Moles/Vol] 137 mmol/L Normal 136-146 mmol/L [facility] Serum or plasma total biliru bin measurement (mass/volume)Ordered By: Becky Guaman on 08-14-2022 Bilirubin [Mass/Vol] 0.7 mg/dL 0.3-1.2 [facility] Serum or plasma total carbon dioxide measurement (moles/volume)Ordered By: Becky Guaman on 08-14-2022 CO2 [Moles/Vol] 23.1 mmol/L 22.0-30.0 [facility] Serum or plasma total choles terol/high density lipoprotein (HDL) cholesterol mass ratOrdered By: Becky Guaman on 08-14-2022 Cholesterol.total/Vero sterol in HDL [Mass ratio] 6.1 {ratio} <5.0 [facility] Serum or plasma urea nitroge n measurement (mass/volume)Ordered By: Becky Guaman on 08-14-2022 Urea nitrogen [Mass/Vol] 5 mg/dL Low 9-23 mg/dL [facility] TSH DL <= 0.005 mIU/L QnOrde red By: Becky Guaman on 08-14-2022 TSH Qn 1.77 m[IU]/L 0.45-5.33 [facility] Thyroid Stimulating Hormoneo n 08-14-2022 TSH Qn 1.77 m[IU]/L Normal 0.45-5.33 [facility] Comment on above: Result Comment: PERF ORMED BY: [place] [address] PATHOLOGIST MACHINE CELL TUBER KULWANT GOMEZ M.D. Performed By: #### C BC, TSH3, CMP, A1C WTH eA, LIPID #### [address] Triglyceride [Mass/volume] i n Serum or PlasmaOrdered By: Becky Guaman on 08-14-2022 Triglyceride [Mass/Vol] 84 mg/dL 35-149 F [facility] Comment on above: TRIG ATP III CLASSIF ICATIONTRIG less than 150 mg/dL NormalTRIG 150-199 mg/dL Borderline highTRIG 200-500 mg/dL High TRIG greater than 500 mg/dL Very highStandard traceable to the Center for Disease Conrtrol and Prevention (CDC) test method. WBC Auto (Bld) [#/Vol]Ordere d By: Becky Guaman on 08-14-2022 WBC (Bld) [#/Vol] 5.6 10*3/uL 3.8-11.6 [facility] XR chest 2V*on 08-13-2022 XR chest 2V* [facility] Main [place] [address] [place] [address] XRay Report Signed Patient: Edwige Patterson MR#: [id number] : 2000 Acct:[id number] Age/Sex: 22 / F ADM Date: 08/13/22 Loc: [facility] Room: Type: [facility] Attending Dr: Becky Guaman DO Copies to: [...] Misbah Mast M.D.08/13/2022 3:23 PM Dictation Location: [place] [address] Transcribed By: [facility] 08/13/22 1523 Dictated By: Misbah Mast DO 08/13/22 152 Signed By: 08/13/22 1523 Normal [facility] XR chest 2V* [facility] [employer] Other XR chest 2V* [facility] [employer] Other XR chest 2V* [address] [place] [address] [employer] Other XR chest 2V* [place] [address] [facility] [employer] Other XR chest 2V* XRay Report [employer] Other XR chest 2V* Signed [employer] Other XR chest 2V* Patient: Edwige Patterson MR#: [id number] [employer] Other XR chest 2V* [id number] [employer] Other XR chest 2V* : 2000 Acct:[id number] [employer] Other XR chest 2V* Age/Sex: 22 / F ADM Date: 08/13/22 [employer] Other XR chest 2V* Loc: [facility] Room: Type : [facility] [employer] Other XR chest 2V* Attending Dr: Diane Guaman [employer] Other XR chest 2V* Copies to: Becky Guaman, [employer] Other XR chest 2V* Ordering Provider: Becky Guaman [employer] Other XR chest 2V* Date of Service: 08/13/22 [employer] Other XR chest 2V* XR/XR chest 2V*: Cough, unspecified type [employer] Other XR chest 2V* Plain film chest2 view [employer] Other XR chest 2V* HISTORY:Productive cough. Wheezing. [employer] Other XR chest 2V* COMPARISON:None [facility] [employer] Other XR chest 2V* FINDINGS: The cardiac, mediastinal and hilar silhouettes are within normal limits. No acute lung [employer] Other XR chest 2V* process, pleural effusion or pneumothorax identified. Bony structures are intact. [employer] Other XR chest 2V* XR/XR chest 2V* [employer] Other XR chest 2V* IMPRESSION: No acute process. [employer] Other XR chest 2V* Impression dictated by: Misbah Mast M.D.08/13/2022 3:23 PM [employer] Other XR chest 2V* Dictation Location: [place] [address] [employer] Other XR chest 2V* Transcribed By: DOMINIQUE 08/13/22 [facility] [employer] Other XR chest 2V* Dictated By: Misbah Mast DO 08/13/22 [facility] [employer] Other XR chest 2V* Signed By: [employer] Other XR chest 2V* 08/13/22 [facility] [employer] [facility] [employer] Other Quick Strepon 02-08-2022 S. pyogenes Org specific cx Ql (Throat) Positive [facility] [employer] Other Quick Strep [employer] Other COVID Quick Testingon 2021 Result Negative [employer] Other COVID + FLU Quick Testingon 07-03-2021 SARS-CoV-2 (COVID-19) RNA THA+probe Ql (Unsp spec) Positive [facility] [employer] Other COVID + FLU Quick Testing Negative [employer] Other Q - THINPREP(R) TIS AND HPV MRNA E6/E7 RFL HPV 16/18/45on 06-20-2021 CLINICAL INFORMATION: None given Normal [facility] Comment on above: Order Comment: [facility] Testing performed at: [facility] [facility] [facility], [address] [place] [address], [address] [place] [address], [phone], Paunch Trimmer: Ramana Taylor MD Testing performed at: [email or web address] [facility], [address] [place] [address], [phone], Paunch Trimmer: Mani Anderson [facility] Collection Date/Time: [facility] Results Received Date/Time: [facility] Reported Date/Time: FASTING: UNKNOWN Result Comment: [RUST ] Performed By: #### 9 1414 #### [facility] Default [address] [place] [address] COMMENT SEE NOTE Normal [facility] Comment on above: Order Comment: [facility] Testing performed at: [employer] [facility] [facility], [address] [place] [address], [address] [place] [address], [phone], Paunch Trimmer: Ramana Taylor MD Testing performed at: [email or web address] [facility], [address] [place], [phone], Paunch Trimmer: Mani Anderson [facility] Collection Date/Time: [id number] [facility] Results Received Date/Time: [facility] Reported Date/Time: [...] 9 1414 #### [facility] [address] [place] [address] COMMENT: This Pap test has been evaluated with computer assisted technology. Normal [facility] [employer] Guide Comment on above: Order Comment: [facility] Testing performed at: [employer], [employer], [address] [place] [address], Paunch Trimmer: Ramana Taylor MD Testing performed at: [facility], [address] [place] [address], [phone], Paunch Trimmer: Mani Anderson [facility] Collection Date/Time: [facility] Results Received Date/Time: [facility] Reported Date/Time: FASTING: UNKNOWN Result Comment: [QBU ] Performed By: #### 9 1414 #### [facility] Default [address] [place] [id number] SOW FARM MANAGER: SEE NOTE Normal See Note: [facility] Comment on above: Order Comment: [facility] Testing performed at: [facility] [facility], [address] [place] [address], [address] [place] [address], [address] [place] [address], Paunch Trimmer: Ramana Taylor MD Testing performed at: [facility], [address] [place] [address], [phone], Paunch Trimmer: Mani Anderson [facility] Collection Date/Time: [facility] Results Received Date/Time: [facility] Reported Date/Time: FASTING: UNKNOWN Result Comment: Refe rence Range: ZL, CT(ASCP) CT screening location: [place] [address]. [QBU] Performed By: #### 9 1414 #### [facility] Default [address] [place] [address] GENERAL CATEGORIZATION: EPITHELIAL CELL ABNORMALITY Abnormal [facility] Comment on above: Order Comment: [facility] Testing performed at: [facility] [facility] [facility], [address] [place] [address], [address] [place] [address], [address] [place] [address], Paunch Trimmer: Ramana Taylor MD Testing performed at: [facility], [address] [place] [address], [address] [place] [address], Paunch Trimmer: Mani Anderson [facility] Collection Date/Time: [facility] Results Received Date/Time: [facility] Reported Date/Time: FASTING: UNKNOWN Result Comment: [Q ] Performed By: #### 9 1414 #### [facility] [address] [place] [address] HPV mRNA E6/E7 Detected Abnormal Not Detected [facility] Comment on above: Order Comment: [facility] Testing performed at: [facility] [facility] [facility], [address] [place] [address], [address] [place] [address], [address] [place] [address], Paunch Trimmer: Ramana Taylor MD Testing performed at: [facility], [address] [place] [address], [address] [place] [address], Paunch Trimmer: Mani Anderson [facility] Collection Date/Time: [facility] Results Received Date/Time: [facility] Reported Date/Time: FASTING: UNKNOWN Result Comment: Meth odology: Channel Lip Wetter-Mediated Amplification This assay detects E6/E7 viral messenger RNA (mRNA) from 14 high-risk HPV types (16,18,31,33,35,39,45,51,52,56,58,59,66,68). The analytical performance characteristics of this assay have been determined by [employer]. The modifications have not been cleared or approved by the FDA. This assay has been validated pursuant to the CLIA regulations and is used for clinical purposes. For additional information, please refer to http://education.[employer].Contact At Once!/faq/TNI280g6 (This link if provided for information/ educational purposes only.) [O6K] Performed By: #### 9 1414 #### [facility] [address] [place] [address] INTERPRETATION/RESULT: Atypical Squamous Cells of Undetermined Significance (ASC-US) Abnormal [facility] Specialist Comment on above: Order Comment: [facility] Testing performed at: [employer] [facility], [address] [place] [address], [address] [place] [address], [address] [place] [address], Paunch Trimmer: Ramana Taylor MD Testing performed at: [facility], [address] [place], [phone], Paunch Trimmer: Mani Anderson [facility] Collection Date/Time: [facility] Results Received Date/Time: [facility] Reported Date/Time: FASTING: UNKNOWN Result Comment: [QBU ] Performed By: #### 9 1414 #### [facility] Default [address] [place] [address] LMP: None given Normal [facility] Specialist Comment on above: Order Comment: [facility] Testing performed at: [facility] [facility] [facility], [address] [place] [address], [address] [place] [address], [address] [place] [address], Paunch Trimmer: Ramana Taylor MD Testing performed at: [facility], [address] [place] [address], [address] [place] [address], Paunch Trimmer: Mani Anderson [facility] Collection Date/Time: [facility] Results Received Date/Time: [facility] Reported Date/Time: FASTING: UNKNOWN Result Comment: [QBU ] Performed By: #### 9 1414 #### [facility] Default [address] [place] [id number] PATHOLOGIST: SEE NOTE Normal [facility] [employer] Guide Comment on above: Order Comment: [facility] Testing performed at: [facility], [address] [place] [address], [address] [place] [address], [phone], Paunch Trimmer: Ramana Taylor MD Testing performed at: [facility], [address] [place] [address], [phone], Paunch Trimmer: Mani Anderson [facility] Collection Date/Time: [facility] Results Received Date/Time: [facility] Reported Date/Time: FASTING: UNKNOWN Result Comment: Vance Anderson MD, PhD, M.B.A. Board Certified in Anatomic and Clinical Pathology Board Certified in Cytopathology (electronic signature) For questions regarding this report call Anatomic Pathology at [phone] [QBU] Performed By: #### 9 1414 #### [facility] [address] [place] [id number] PREV. BX: None given Normal [facility] Comment on above: Order Comment: [facility] Testing performed at: [facility], [address] [place] [address], [address] [place] [address], [address] [place] [address], Paunch Trimmer: Ramana Taylor MD Testing performed at: [facility], [address] [place] [address], [address] [place] [address], Paunch Trimmer: Mani Anderson [facility] Collection Date/Time: [facility] Results Received Date/Time: [facility] Reported Date/Time: FASTING: UNKNOWN Result Comment: [QBU ] Performed By: #### 9 1414 #### [facility] Default [address] [place] [id number] PREV. PAP: None given Normal [facility] Comment on above: Order Comment: [facility] Testing performed at: [facility], [address] [place] [address], [address] [place] [address], [address] [place] [address], Paunch Trimmer: Ramana Taylor MD Testing performed at: [facility], [address] [place] [address], [address] [place] [address], Paunch Trimmer: Mani Anderson [facility] Collection Date/Time: [facility] Results Received Date/Time: [facility] Reported Date/Time: FASTING: UNKNOWN Result Comment: [QBU ] Performed By: #### 9 1414 #### [facility] Default [address] [place] [address] SOURCE: None given Normal [facility] Comment on above: Order Comment: [facility] Testing performed at: [facility], [address] [place] [address], [address] [place] [address], Paunch Trimmer: Ramana Taylor MD Testing performed at: [facility], [address] [place] [address], [address] [place] [address], Paunch Trimmer: Mani Anderson [facility] Collection Date/Time: [facility] Results Received Date/Time: [facility] Reported Date/Time: FASTING: UNKNOWN Result Comment: [QBU ] Performed By: #### 9 1414 #### [facility] Default [address] [place] [id number] STATEMENT OF ADEQUACY: SEE NOTE Normal No rthern [facility] Comment on above: Order Comment: [facility] Testing performed at: [facility] [facility], [address] [place] [address], [address] [place] [address], [address] [place] [address], Paunch Trimmer: Ramana Taylor MD Testing performed at: [facility], [address] [place] [address], [address] [place] [address], Paunch Trimmer: Mani Anderson [facility] Collection Date/Time: [facility] Results Received Date/Time: [facility] Reported Date/Time: FASTING: UNKNOWN Result Comment: Sati sfactory for evaluation. Endocervical/transformation zone component present. [QBU] Performed By: #### 9 1414 #### [facility] Default [address] [place] [address] XR Finger Lefton 06-20-2021 XR Finger Left FINDINGS: PIP soft tissue swelling. Minimally distracted volar plate fracture, middle phalangeal base. Minimal arthritis. IMPRESSION: Minimally distracted 4th PIP joint volar plate fracture Report reported and signed by Hubert Lewis on 06/20/2021 1443 Normal [facility] Specialist PREG HCG QUALon 05-19-2020 , QUAL Negative Normal NEGATIVE [facility] Comment on above: Performed By: #### P REG #### [facility] [address] [place], [place] [address] Liam Ayala COVID-19 PCRon 05-14-2020 SARS-CoV-2 (COVID-19) RNA THA+probe Ql (Unsp spec) Not detected Normal Not Detected [facility] Comment on above: Result Comment: This nucleic acid amplification test was developed and its performance characteristics determined by [employer]. Nucleic acid amplification tests include PCR and [...] Performed By: #### C VDSTAT, CVDPCR #### [facility] [address] [place], [place] [address] Liam Ayala PRIORITY COVID PROCESSINGon 05-14-2020 Comment Comment Normal [facility] Comment on above: Result Comment: Rece ived Performed By: #### C VDSTAT, CVDPCR #### [facility] [address] [place], [place] [address] Liam Ayala Vital Signs Date Time Vital Sign Value Performing Clinician Facility 02-14-2025 17:17-0400 Body height 167.6 cm Jovita ROBERTS Work Phone: [facility] 02-14-2025 17:17-0400 Body mass index (BMI) [Ratio] 38.9 kg/m2 [facility] Work Phone: [facility] 02-14-2025 17:17-0400 Body weight 109.32 kg Jovita Salas CNM Work Phone: [facility] 02-14-2025 17:17-0400 Diastolic blood pressure 78 mm[Hg] Jovita Rosarioo CNM Work Phone: [facility] 02-14-2025 17:17-0400 Heart rate 78 /min Jovita Floro CNM Work Phone: [facility] 02-14-2025 17:17-0400 Respiratory rate 18 /min Joviat Salas CNM Work Phone: [facility] 02-14-2025 17:17-0400 SaO2% (BldA) [Mass fraction] 98 % Jovita Salas CNM Work Phone: [facility] 02-14-2025 17:17-0400 Systolic blood pressure 130 mm[Hg] Jovita Salas CNM Work Phone: [facility] 01-11-2025 09:15-0400 Body height 170.18 cm Becky Guaman DO Work Phone: [facility] 01-11-2025 09:15-0400 Body mass index (BMI) [Ratio] 37.6 kg/m2 Becky Guaman DO Work Phone: [facility] 01-11-2025 09:15-0400 Body weight 109.1 kg Becky Guaman DO Work Phone: [facility] 12-03-2024 14:00-0400 Heart rate 90 /min Ness Majors HANDICAPPED TEACHER Work Phone: [facility] 12-03-2024 13:44-0400 Body height 167.6 cm Ness Majors HANDICAPPED TEACHER Work Phone: [facility] 12-03-2024 13:44-0400 Body mass index (BMI) [Ratio] 39.38 kg/m2 Ness Majors HANDICAPPED TEACHER Work Phone: [facility] 12-03-2024 13:44-0400 Body weight 110.68 kg Ness Majors HANDICAPPED TEACHER Work Phone: [facility] 12-03-2024 13:44-0400 Diastolic blood pressure 82 mm[Hg] Ness Majors HANDICAPPED TEACHER Work Phone: [facility] 12-03-2024 13:44-0400 Respiratory rate 18 /min Ness Majors HANDICAPPED TEACHER Work Phone: [facility] 12-03-2024 13:44-0400 SaO2% (BldA) [Mass fraction] 97 % Ness Majors HANDICAPPED TEACHER Work Phone: [facility] 12-03-2024 13:44-0400 Systolic blood pressure 134 mm[Hg] Ness Majors HANDICAPPED TEACHER Work Phone: [facility] 11-24-2024 13:12-0400 SaO2% (BldA) [Mass fraction] 94 % Becky Pierrefariba DO Work Phone: [facility] 11-24-2024 13:00-0400 Body temperature 98.01 [degF] Becky Hernandezfilippoyumiko DO Work Phone: [facility] 11-24-2024 13:00-0400 Diastolic blood pressure 76 mm[Hg] Becky Hernandezfilippoyumiko DO Work Phone: [facility] 11-24-2024 13:00-0400 Heart rate 89 /min Becky Pierrefariba DO Work Phone: [facility] 11-24-2024 13:00-0400 Respiratory rate 16 /min Becky Hernandezjulia DO Work Phone: [facility] 11-24-2024 13:00-0400 Systolic blood pressure 117 mm[Hg] Becky Hernandezjulia DO Work Phone: [facility] 08-10-2024 16:06-0500 Body height 167.6 cm Jovita Salas [facility] Work Phone: [facility] 08-10-2024 16:06-0500 Body mass index (BMI) [Ratio] 39.64 kg/m2 Jovita Salas CNM Work Phone: [facility] 08-10-2024 16:06-0500 Body weight 111.4 kg Jovita Salas CNM Work Phone: [facility] 08-10-2024 16:06-0500 Diastolic blood pressure 70 mm[Hg] Jovita Salas CNM Work Phone: [facility] 08-10-2024 16:06-0500 Systolic blood pressure 118 mm[Hg] Jovita Salas CNM Work Phone: [facility] 08-05-2024 10:19-0500 Body temperature 98.4 [degF] Priyank Gaspar MD [facility] 08-05-2024 10:19-0500 Diastolic blood pressure 56 mm[Hg] Priyank Gaspar MD [facility] 08-05-2024 10:19-0500 Heart rate 114 /min Priyank Gaspar MD [facility] 08-05-2024 10:19-0500 Respiratory rate 18 /min Priyank Gaspar MD [facility] 08-05-2024 10:19-0500 SaO2% (BldA) [Mass fraction] 97 % Priyank Gaspar MD [facility] 08-05-2024 10:19-0500 Systolic blood pressure 97 mm[Hg] Priyank Gaspar MD [facility] 07-20-2024 18:12-0500 SaO2% (BldA) [Mass fraction] 97 % Yoli Lal MD Work Phone: [facility] [employer] 07-20-2024 15:37-0500 Body height 170.2 cm Yoli Lal MD Work Phone: [employer] 07-20-2024 15:37-0500 Body mass index (BMI) [Ratio] 37.59 kg/m2 Yoli Lal MD Work Phone: [facility] [employer] 07-20-2024 15:37-0500 Body temperature 98.29 [degF] Yoli Lal MD Work Phone: [employer] 07-20-2024 15:37-0500 Body weight 108.86 kg Yoli Lal MD Work Phone: [employer] 07-20-2024 15:37-0500 Diastolic blood pressure 76 mm[Hg] Yoli Lal MD Work Phone: [employer] 07-20-2024 15:37-0500 Heart rate 100 /min Yoli Lal MD Work Phone: [employer] 07-20-2024 15:37-0500 Respiratory rate 18 /min Yoli Lal MD Work Phone: [employer] 07-20-2024 15:37-0500 Systolic blood pressure 110 mm[Hg] Yoli Lal MD Work Phone: [employer] 05-24-2024 08:46-0500 Body height 167.6 cm Destinee Britton MD Work Phone: [facility] 05-24-2024 08:46-0500 Body mass index (BMI) [Ratio] 39 kg/m2 Destinee Britton MD Work Phone: [facility] 05-24-2024 08:46-0500 Body weight 109.59 kg Destinee Britton MD Work Phone: [facility] 05-24-2024 08:46-0500 Diastolic blood pressure 74 mm[Hg] Destinee Britton MD Work Phone: [facility] 05-24-2024 08:46-0500 Heart rate 91 /min Destinee Britton MD Work Phone: [facility] 05-24-2024 08:46-0500 Respiratory rate 18 /min Destinee Britton MD Work Phone: [facility] 05-24-2024 08:46-0500 SaO2% (BldA) [Mass fraction] 97 % Destinee Britton MD Work Phone: [facility] 05-24-2024 08:46-0500 Systolic blood pressure 114 mm[Hg] Destinee Britton MD Work Phone: [facility] 05-20-2024 15:22-0500 Body height 167.6 cm Destinee Britton MD Work Phone: [facility] 05-20-2024 15:22-0500 Body mass index (BMI) [Ratio] 39.96 kg/m2 Destinee Britton MD Work Phone: [facility] 05-20-2024 15:22-0500 Body weight 112.31 kg Destinee Britton MD Work Phone: [facility] 05-20-2024 15:22-0500 Diastolic blood pressure 72 mm[Hg] Destinee Britton MD Work Phone: [facility] 05-20-2024 15:22-0500 Heart rate 116 /min Destinee Britton MD Work Phone: [facility] 05-20-2024 15:22-0500 Respiratory rate 18 /min Destinee Britton MD Work Phone: [facility] 05-20-2024 15:22-0500 SaO2% (BldA) [Mass fraction] 99 % Destinee Britton MD Work Phone: [facility] 05-20-2024 15:22-0500 Systolic blood pressure 134 mm[Hg] Destinee Britton MD Work Phone: [facility] 05-10-2024 13:59-0500 Body mass index (BMI) [Ratio] 39.87 kg/m2 Jovita Salas CNM Work Phone: [facility] 05-10-2024 13:59-0500 Body weight 112.04 kg Jovita ROBERTS Work Phone: [facility] 11-11-2023 14:36-0400 Diastolic blood pressure 76 mm[Hg] [facility] 11-11-2023 14:36-0400 Heart rate 92 /min [facility] 11-11-2023 14:36-0400 Respiratory rate 20 /min [facility] 11-11-2023 14:36-0400 Systolic blood pressure 104 mm[Hg] [facility] 10-10-2023 11:51-0400 Body height 170.18 cm [facility] 10-10-2023 11:51-0400 Body mass index (BMI) [Ratio] 38.2 kg/m2 [facility] [facility] 10-10-2023 11:51-0400 Body weight 110.67 kg [facility] 10-10-2023 11:51-0400 Diastolic blood pressure 81 mm[Hg] [facility] 10-10-2023 11:51-0400 Heart rate 78 /min [facility] 10-10-2023 11:51-0400 SaO2% (BldA) [Mass fraction] 96 % [facility] 10-10-2023 11:51-0400 Systolic blood pressure 128 mm[Hg] [facility] 07-09-2023 13:00-0500 Body height 170.18 cm Becky Guaman Other [employer] [facility] [employer] Other 07-09-2023 13:00-0500 Body mass index (BMI) [Ratio] 36.96 kg/m2 Becky Guaman Other [employer] [facility] [employer] Other 07-09-2023 13:00-0500 Body temperature 97.6 [degF] Becky Guaman Other [employer] Other 07-09-2023 13:00-0500 Body weight 107.05 kg Becky Guaman Other [employer] Other 07-09-2023 13:00-0500 Diastolic blood pressure 69 mm[Hg] Becky Guaman Other [employer] Other 07-09-2023 13:00-0500 Respiratory rate 20 /min Becky Guaman Other [employer] Other 07-09-2023 13:00-0500 SaO2% (BldA) [Mass fraction] 97 % Becky Guaman Other [employer] Other 07-09-2023 13:00-0500 Systolic blood pressure 109 mm[Hg] Becky Guaman Other [employer] Other 12-09-2022 11:05-0400 Body height 170.18 cm Lexy Kraft Other [employer] Other 12-09-2022 11:05-0400 Body mass index (BMI) [Ratio] 38.52 kg/m2 Lexy Menamond Other [employer] Other 12-09-2022 11:05-0400 Body temperature 97.8 [degF] Lexy Menamond Other [employer] Other 12-09-2022 11:05-0400 Body weight 111.59 kg Lexy Menamond Other [employer] Other 12-09-2022 11:05-0400 Respiratory rate 18 /min Lexy Menamond Other [employer] Other 12-09-2022 11:05-0400 SaO2% (BldA) [Mass fraction] 98 % Lexy Kraft Other [employer] Other 08-12-2022 16:00-0500 Body height 170.18 cm Becky Guaman Other [employer] Other 08-12-2022 16:00-0500 Body mass index (BMI) [Ratio] 39.62 kg/m2 Becky Guaman Other [employer] Other 08-12-2022 16:00-0500 Body weight 114.76 kg Becky Guaman Other [employer] Other 08-12-2022 16:00-0500 Diastolic blood pressure 71 mm[Hg] Becky Guaman Other [employer] Other 08-12-2022 16:00-0500 Respiratory rate 16 /min Becky Guaman Other [employer] Other 08-12-2022 16:00-0500 SaO2% (BldA) [Mass fraction] 98 % Becky Guaman Other [employer] Other 08-12-2022 16:00-0500 Systolic blood pressure 107 mm[Hg] Becky Guaman Other [employer] Other 02-08-2022 12:00-0400 Body height 167.64 cm Joselin Wilkins Other [employer] Other 02-06-2022 18:45-0400 Body height 167.64 cm Lexy Kraft Other [employer] Other 02-06-2022 18:45-0400 Body mass index (BMI) [Ratio] 37.12 kg/m2 Lexy Kraft Other [employer] Other 02-06-2022 18:45-0400 Body temperature 97.3 [degF] Lexy Kraft Other [employer] Other 02-06-2022 18:45-0400 Body weight 104.33 kg Lexy Kraft Other [employer] Other 02-06-2022 18:45-0400 Respiratory rate 18 /min Lexy Kraft Other [employer] Other 02-06-2022 18:45-0400 SaO2% (BldA) [Mass fraction] 97 % Lexy Kraft Other [employer] Other Encounters Encounter Date Encounter Type Care Provider Facility Start: 02-15-2025 End: 02-15-2025 ambulatory [facility] Start: 02-15-2025 End: 02-15-2025 Telephone encounter Destinee Britton MD Work Phone: [facility] Comment on above: Sacrococcygeal disor ders, not elsewhere classified (Primary Dx) Start: 02-14-2025 End: 02-14-2025 Office outpatient visit 15 minutes Jovita Hung Rosarioo CN Work Phone: [facility] Comment on above: PCOS (polycystic ova melvin syndrome) (Primary Dx); Encounter for initial prescription of contraceptive pills; Insulin resistance Start: 02-14-2025 End: 02-14-2025 [employer] Jovita L Floro CN Work Phone: [facility] Start: 02-14-2025 End: 02-14-2025 [employer] Jovita L Floro CN Work Phone: [facility] Start: 02-01-2025 End: 02-01-2025 Treatment Kem Costa SPAR FINISHER [facility] Comment on above: Sacrococcygeal disor ders, not elsewhere classified (Primary Dx) Start: 02-01-2025 End: 02-01-2025 Bamboo flowsheet Kem Costa SPAR FINISHER [facility] Start: 02-01-2025 End: 02-01-2025 Bamboo flowsheet Kem Costa SPAR FINISHER [facility] Start: 01-27-2025 End: 01-27-2025 Treatment Ofelia Blakely SPAR FINISHER [facility] Comment on above: Sacrococcygeal disor ders, not elsewhere classified (Primary Dx) Start: 01-27-2025 End: 01-27-2025 Bamboo flowsheet Ofelia Blakely SPAR FINISHER [facility] Start: 01-27-2025 End: 01-27-2025 Bamboo flowsheet Ofelia Blakely SPAR FINISHER [facility] Start: 01-24-2025 End: 01-25-2025 Evaluation Delia Kwan PT [facility] Comment on above: Sacrococcygeal disor ders, not elsewhere classified (Primary Dx) Start: 01-24-2025 End: 01-24-2025 Bamboo flowsheet Delia Kwan PT [facility] Start: 01-24-2025 End: 01-24-2025 Bamboo flowsheet Delia Kwan PT [facility] Start: 01-20-2025 End: 01-20-2025 ambulatory [facility] Start: 01-11-2025 End: 01-11-2025 ambulatory Becky Guaman DO Work Phone: [facility] Work Phone: Start: 01-11-2025 End: 01-11-2025 Patient encounter procedure Feliz Musa MD -[facility] Work Phone: Start: 01-06-2025 End: 01-06-2025 ambulatory Becky Guaman DO Work Phone: [facility] Work Phone: Start: 01-06-2025 End: 01-06-2025 Patient encounter procedure Mack Akhtar Erasmo DO -[facility] Work Phone: Start: 01-05-2025 End: 01-05-2025 ambulatory Becky Guaman DO Facility:[facility] Start: 12-27-2024 End: 12-27-2024 ambulatory Ty Fairbanks MD Facility: [facility] Start: 12-16-2024 End: 12-16-2024 ambulatory CHAD Giordano [facility] Start: 12-03-2024 End: 12-03-2024 Telephone encounter Destinee Britton MD Work Phone: [facility] Start: 12-03-2024 End: 12-03-2024 Office outpatient visit 25 minutes Ness Montez HANDICAPPED TEACHER Work Phone: [facility] Comment on above: Nausea (Primary Dx); Pain of upper abdomen Start: 12-01-2024 Non-patient / Non-visit Lacey Morton [facility] Work Phone: Start: 11-24-2024 End: 11-24-2024 Emergency department patient visit BECKY Sunil GUAMAN [facility] Emergency Department Comment on above: Acute exacerbation o f chronic low back pain (Primary Dx) Start: 11-11-2024 End: 11-11-2024 ambulatory CHAD Giordano [facility] Start: 10-14-2024 End: 10-14-2024 ambulatory CHAD Giordano [facility] Start: 09-17-2024 End: 09-17-2024 ambulatory NUBIA STEPHENS [facility] Start: 09-16-2024 End: 09-16-2024 ambulatory CHAD Giordano [facility] Start: 09-13-2024 End: 09-13-2024 ambulatory Ty Fairbanks MD Facility:[facility] Start: 08-30-2024 End: 08-30-2024 ambulatory Ty Fairbanks MD Facility:[facility] Start: 08-26-2024 End: 08-26-2024 ambulatory [facility] Start: 08-16-2024 End: 08-16-2024 ambulatory Ty Fairbanks MD Facility:[facility] Start: 08-12-2024 End: 08-12-2024 ambulatory [facility] Start: 08-10-2024 End: 08-10-2024 Office outpatient visit 15 minutes Jovita L Floro CNM Work Phone: [facility] Comment on above: Unwanted fertility ( Primary Dx); PCOS (polycystic ovarian syndrome) Start: 08-10-2024 End: 08-10-2024 Bamboo flowsheet Jovita L Floro CNM Work Phone: [facility] Start: 08-10-2024 End: 08-10-2024 Bamboo flowsheet Jovita L Floro CNM Work Phone: [facility] Start: 08-05-2024 End: 08-05-2024 Emergency department patient visit Priyank Gaspar MD Work Phone: [facility] Comment on above: Acute exacerbation o f chronic low back pain (Primary Dx) Start: 07-20-2024 End: 07-20-2024 Emergency department patient visit Yoli Lal MD Work Phone: [facility] Comment on above: Strain of lumbar reg ion, initial encounter (Primary Dx); Abnormal computed tomography of lumbar spine Start: 07-15-2024 End: 07-15-2024 ambulatory [facility] Start: 06-25-2024 End: 06-25-2024 ambulatory [facility] Start: 06-02-2024 End: 07-16-2024 Refill Destinee Britton MD Work Phone: [facility] Comment on above: Encounter for initia l prescription of contraceptive pills Start: 05-28-2024 End: 05-28-2024 ambulatory NUBIA STEPHENS [facility] Start: 05-27-2024 End: 05-27-2024 ambulatory CHAD Giordano [facility] Start: 05-24-2024 End: 05-24-2024 Bamboo flowsheet Destinee [...] Start: 05-10-2024 End: 05-10-2024 Bamboo flowsheet Jovita L Floro CNM Work Phone: [facility] Start: 05-10-2024 End: 05-10-2024 Bamboo flowsheet Jovita L Floro CNM Work Phone: [facility] Start: 05-10-2024 End: 05-10-2024 Gynecological examination normal Jovita L Floro CNM Work Phone: [facility] Start: 05-10-2024 End: 05-10-2024 Office outpatient visit 15 minutes Jovita L Floro CNM Work Phone: [facility] Comment on above: PCOS (polycystic ova melvin syndrome) (Primary Dx); Normal gynecologic examination; Screening for cervical cancer; Other acne; Hirsutism Start: 04-22-2024 End: 04-22-2024 ambulatory CHAD W [facility] Start: 03-25-2024 End: 03-25-2024 ambulatory CHAD Giordano [facility] Start: 02-26-2024 End: 02-26-2024 ambulatory CHAD Giordano [facility] Start: 11-11-2023 End: 11-11-2023 ambulatory [facility] Work Phone: Start: 11-11-2023 End: 11-11-2023 Patient encounter procedure [facility] Work Phone: Start: 10-10-2023 End: 10-10-2023 ambulatory [facility] Work Phone: Start: 10-10-2023 End: 10-10-2023 Patient encounter procedure [facility] Work Phone: Start: 07-09-2023 End: 07-09-2023 ambulatory Becky Guaman Other [employer] Other Start: 07-09-2023 Office outpatient vi sit 25 minutes Becky Guaman [facility] Start: 12-11-2022 End: 12-11-2022 ambulatory Becky Guaman Other [employer] Other Start: 12-11-2022 Telephone encounter Becky Romero i [facility] Start: 12-09-2022 Office outpatient vi sit 15 minutes Lexy Kraft [facility] Start: 12-09-2022 End: 12-09-2022 ambulatory PHYSICIAN NO [employer] [facility] [employer] Other Start: 12-09-2022 End: 12-09-2022 Patient encounter procedure PHYSICIAN [facility] Work Phone: Start: 09-27-2022 End: 09-27-2022 ambulatory Becky Guaman Other [employer] Other Start: 09-27-2022 Telephone encounter Becky Rome yumiko [facility] Start: 08-14-2022 End: 08-14-2022 ambulatory Becky Guaman Facility:[facility] Start: 08-14-2022 End: 08-14-2022 ambulatory PHYSICIAN NO [facility] Work Phone: Start: 08-14-2022 End: 08-14-2022 Patient encounter procedure PHYSICIAN NO [facility] Work Phone: Start: 08-13-2022 End: 08-13-2022 ambulatory Becky Guaman Facility:[facility] Start: 08-13-2022 End: 08-13-2022 Patient encounter procedure PHYSICIAN NO [facility] Start: 08-13-2022 End: 08-13-2022 ambulatory PHYSICIAN NO [facility] Work Phone: Start: 08-13-2022 Telephone encounter Becky Rome calderon [employer] Start: 08-12-2022 End: 08-12-2022 ambulatory Becky Guaman Other [employer] Other Start: 08-12-2022 Encounter for genera l adult medical examination without abnormal findings Becky Guaman [facility] Start: 08-12-2022 Periodic preventive med est patient 18-39 yrs Becky Guaman [facility] Start: 05-20-2022 End: 05-20-2022 ambulatory Becky Guaman Other [employer] Other Start: 05-20-2022 Telephone encounter Becky Pierrearvin yumiko [facility] Start: 02-08-2022 End: 02-08-2022 ambulatory Becky Guaman Other [employer] Other Start: 02-08-2022 Office outpatient vi sit 15 minutes Joselin Wilkins [facility] Start: 02-08-2022 Telephone encounter Becky Romero i [facility] Start: 02-06-2022 End: 02-06-2022 ambulatory Lexy Kraft Other [employer] Other Start: 02-06-2022 Office outpatient vi sit 15 minutes Lexy Kraft [facility] Start: 07-03-2021 End: 07-03-2021 ambulatory Becky Guaman Other [employer] Other Start: 07-03-2021 Office outpatient vi sit 15 minutes Becky Guaman [facility] Start: 05-19-2020 End: 05-19-[address] ROGE THACKER Facility:[facility] Start: 05-16-2020 Encounter for other preprocedural examination [facility] Start: 05-13-2020 End: 05-14-2020 ambulatory [facility] Facility:[facility] Start: 05-11-2020 End: 05-12-2020 ambulatory [facility] Facility:[facility] Start: 05-11-2020 End: 05-12-2020 Encounter for other preprocedural examination [facility] Facility:[facility] Start: 03-23-2020 End: 03-24-[address] DESTINEE BRITTON Facility:[facility] Start: 02-29-2020 End: 03-01-2020 ambulatory [facility] Facility:[facility] Start: 03-30-2019 End: 03-30-2019 Patient encounter procedure Radha Aguilera [facility] Procedures Date Procedure Procedure Detail Performing Clinician Start: 12-03-2024 Urnls dip stick/tabl et rgnt non-auto w/o micrscp Ness Montez HANDICAPPED TEACHER Work Phone: Start: 07-20-2024 Ct lumbar spine w/o contrast material Yoli Lal MD Work Phone: Start: 07-20-2024 Urinalysis microscop ic only Yoli Lal MD Work Phone: Start: 07-20-2024 End: 07-20-2024 Urnls dip stick/tablet rgnt auto w/o microscopy Yoli Lal MD Work Phone: Start: 02-26-2024 Follow-up visit Follow-up CHAD WAYNE Start: 12-09-2022 Plain X-ray of left hand PHYSICIAN NO FAMILY Start: 12-09-2022 Plain X-ray of left wrist PHYSICIAN NO FAMILY Start: 08-13-2022 Plain chest X-ray PHYSI BALJIT NO FAMILY Start: 03-30-2019 X-ray of left ankle Donte linda Aguilera Plan of Treatment Date Care Activity Detail Author Start: 08-15-2025 End: 08-15-2025 Patient encounter procedure 08/15/2025 5:30 PM EST [facility] [address] [place] [id number] Jovita Salas, CN [address] [place], [place] [id number] [facility] Start: 03-07-2025 Influenza vaccination Influenza Vacc ine (#1) [facility] Start: 02-28-2025 End: 02-28-2025 ambulatory 02/28/2025 6:00 PM EDT Treatment [facility] [address] [facility] [address] [place] [address] Delia Kwan, PT [facility] Start: 02-24-2025 End: 02-24-2025 ambulatory 02/24/2025 6:00 PM EDT Treatment [facility] [address] [facility] [address] [place] [address] Ofelia Blakely PTA [facility] Start: 02-15-2025 End: 02-15-2025 ambulatory 02/15/2025 6:00 PM EDT Treatment [facility] [address] [facility] [address] [place] [address] Kem Costa PTA [facility] Start: 02-14-2025 End: 02-14-2025 [facility] Comment on above: Arrived Start: 02-08-2025 End: 02-08-2025 Patient encounter procedure 02/08/2025 4:00 PM EDT Office Visit [facility] [address] [facility] [place] [address] Jovita Sal[address] CNM [address] [facility], [place] [id number] [facility] Start: 02-01-2025 End: 02-01-2025 ambulatory [facility] Comment on above: Arrived Start: 01-27-2025 End: 01-27-2025 ambulatory [facility] Comment on above: Arrived Start: 01-24-2025 End: 01-24-2025 Evaluation 01/24/2025 6:00 PM EDT Evaluation [facility] [address] [place] [address] [place] [phone] Delia Kwan, PT Sacrococcygeal disorders, not elsewhere classified (Primary Dx) [facility] Comment on above: Sacrococcygeal disor ders, not elsewhere classified (Primary Dx) Start: 12-03-2024 End: 12-03-2025 Bacteria identified in Urine by Culture Urine culture (clean catch) Microbiology Routine Nausea Pain of upper abdomen Expected: 12/03/2024 (Approximate), Expires: 12/03/2025 [facility] Comment on above: Expected: 12/03/2024 (Approximate), Expires: 12/03/2025 Start: 12-03-2024 End: 12-03-2025 CBC W Auto Differential panel - Blood CBC and differential Lab Routine Nausea Pain of upper abdomen Expected: 12/03/2024 (Approximate), Expires: 12/03/2025 [facility] Comment on above: Expected: 12/03/2024 (Approximate), Expires: 12/03/2025 Start: 12-03-2024 End: 12-03-2025 Comprehensive metabolic 2000 panel - Serum or Plasma Comprehensive metabolic panel Lab Routine Nausea Pain of upper abdomen Expected: 12/03/2024 (Approximate), Expires: 12/03/2025 [facility] Comment on above: Expected: 12/03/2024 (Approximate), Expires: 12/03/2025 Start: 12-03-2024 End: 12-03-2025 Urinalysis complete panel - Urine Urinalysis with reflex microscopic (clean catch) Lab Routine Nausea Pain of upper abdomen Expected: 12/03/2024 (Approximate), Expires: 12/03/2025 [facility] Comment on above: Expected: 12/03/2024 (Approximate), Expires: 12/03/2025 Start: 12-03-2024 End: 12-03-2025 XR Abdomen Single view [facility] Work Phone: Comment on above: Expected: 12/03/2024 , Expires: 12/03/2025 Start: 12-03-2024 End: 12-03-2024 Patient encounter procedure 12/03/2024 1:30 PM EDT Office Visit [facility] [address] [place] [phone] Ness Montez NP [address] [place] [address] [facility] Start: 08-10-2024 End: 08-10-2024 Patient encounter procedure [facility] Comment on above: Arrived Start: 05-10-2024 End: 05-10-2025 Insulin, fasting Insulin, fasting Lab Routine Normal gynecologic examination Screening for cervical cancer PCOS (polycystic ovarian syndrome) Expected: 05/10/2024 (Approximate), Expires: 05/10/2025 [facility] Comment on above: Expected: 05/10/2024 (Approximate), Expires: 05/10/2025 Start: 05-10-2024 End: 05-10-2024 Patient encounter procedure 05/10/2024 2:00 PM EST Office Visit [facility] [address] [place] [phone] Jovita Salas CNM [address] [place] [address] Arrived [facility] Comment on above: Arrived Start: 05-10-2024 End: 05-10-2025 THINPREP IMAGING PAP AND HPV DNA REFLEX HPV 16,18 THINPREP IMAGING PAP AND HPV DNA REFLEX HPV 16,18 Pathology and Cytology Routine Screening for cervical cancer Expected: 05/10/2024 (Approximate), Expires: 05/10/2025 [facility] Work Phone: Comment on above: Expected: 05/10/2024 (Approximate), Expires: 05/10/2025 Start: 03-07-2024 Influenza vaccination Influenza Vacc ine (#1) [facility] Start: 05-19-2023 DTaP/Tdap/Td vaccine (7 - Td or Tdap) DTaP/Tdap/Td vaccine (7 - Td or Tdap) [facility] Start: 08-14-2022 [facility] Start: 2021 Screening for malign ant neoplasm of cervix Pap smear [facility] Start: 2018 Hepatitis C screening Hepatitis C sc reen [facility] Start: 2016 Screening for Chlamy rafael trachomatis Chlamydia/GC screen [facility] Start: 2015 HIV screening HIV screen [facility] Start: 2015 HPV vaccine (1 - 3-d ose series) HPV vaccine (1 - 3-dose series) [facility] Start: 2012 Depression Screen Depression Screen [facility] CBC panel - Blood by Automated count CBC Lab Routine PCOS (polycystic ovarian syndrome) Ordered: 05/10/2024 [facility] Comment on above: Ordered: 05/10/2024 Glucose measurement estimated from glycated hemoglobin [facility] Hemoglobin A1c/Hemoglobin.total in Blood [facility] Hemoglobin A1c/Hemoglobin.total in Blood Hemoglobin A1c Lab Routine PCOS (polycystic ovarian syndrome) Ordered: 05/10/2024 [facility] Comment on above: Ordered: 05/10/2024 Immunizations Immunization Date Immunization Notes Care Provider Fa cility 04-29-2024 SARS-COV-2 (COVID-19 ) vaccine, mRNA, spike protein, LNP, PF, anuj-sucrose, 30 mcg/0.3 mL Destinee Britton MD Work Phone: [facility] 04-29-2024 Seasonal, trivalent, recombinant, injectable influenza vaccine, preservative free Destinee Britton MD Work Phone: [facility] 04-29-2024 influenza virus vacc ine, unspecified formulation Delia Kwan PT [facility] 07-10-2019 Influenza, injectabl e, Madin Noxen Canine Kidney, preservative free, quadrivalent Destinee Britton MD Work Phone: [facility] 07-10-2019 influenza, seasonal, injectable Becky Guaman Other [facility] 07-10-2019 influenza virus vacc ine, unspecified formulation Jovita Salas ALEJANDRA Work Phone: [facility] 07-17-2018 Influenza, injectabl e, Madin Noxen Canine Kidney, preservative free, quadrivalent Destinee Britton MD Work Phone: [facility] 03-02-2018 meningococcal polysaccharide (groups A, C, Y and W-135) diphtheria toxoid conjugate vaccine (MCV4P) Beckybettye Guaman Other [facility] 05-19-2013 meningococcal polysaccharide (groups A, C, Y and W-135) diphtheria toxoid conjugate vaccine (MCV4P) Destinee Britton MD Work Phone: [facility] 05-19-2013 tetanus toxoid, redu latrice diphtheria toxoid, and acellular pertussis vaccine, adsorbed Destinee Britton MD Work Phone: [facility] 05-19-2013 varicella virus vaccine Destinee Britton MD Work Phone: [facility] 04-03-2006 diphtheria, tetanus toxoids and acellular pertussis vaccine, unspecified formulation Destinee Britton MD Work Phone: [facility] 04-03-2006 hepatitis B vaccine, pediatric or pediatric/adolescent dosage Destinee Britton MD Work Phone: [facility] 04-03-2006 measles, mumps and rubella virus vaccine Destinee Britton MD Work Phone: [facility] 04-03-2006 poliovirus vaccine, unspecified formulation Destinee Britton MD Work Phone: [facility] 04-03-2006 varicella virus vaccine Destinee Britton MD Work Phone: [facility] 03-03-2006 DTaP-hepatitis B and poliovirus vaccine Destinee Britton MD Work Phone: [facility] 03-03-2006 measles, mumps and rubella virus vaccine Destinee Britton MD Work Phone: [facility] 12-23-2001 measles, mumps and rubella virus vaccine Destinee Britton MD Work Phone: [facility] 09-17-2001 diphtheria, tetanus toxoids and acellular pertussis vaccine, unspecified formulation Destinee Britton MD Work Phone: [facility] 09-17-2001 haemophilus influenz ae type b vaccine, conjugate unspecified formulation Destinee Britton MD Work Phone: [facility] 2000 diphtheria, tetanus toxoids and acellular pertussis vaccine, unspecified formulation Destinee Britton MD Work Phone: [facility] 2000 haemophilus influenz ae type b vaccine, conjugate unspecified formulation Destinee Britton MD Work Phone: [facility] 2000 hepatitis B vaccine, pediatric or pediatric/adolescent dosage Destinee Britton MD Work Phone: [facility] 2000 poliovirus vaccine, unspecified formulation Destinee Britton MD Work Phone: [facility] 2000 haemophilus influenz ae type b vaccine, conjugate unspecified formulation Destinee Britton MD Work Phone: [facility] 2000 diphtheria, tetanus toxoids and acellular pertussis vaccine, unspecified formulation Desitnee Britton MD Work Phone: [facility] 2000 poliovirus vaccine, unspecified formulation Destinee Britton MD Work Phone: [facility] 2000 diphtheria, tetanus toxoids and acellular pertussis vaccine, unspecified formulation Destinee Britton MD Work Phone: [facility] 2000 haemophilus influenz ae type b vaccine, conjugate unspecified formulation Destinee Britton MD Work Phone: [facility] 2000 hepatitis B vaccine, pediatric or pediatric/adolescent dosage Destinee Britton MD Work Phone: [facility] 2000 poliovirus vaccine, unspecified formulation Destinee Britton MD Work Phone: [facility] 2000 hepatitis B vaccine, pediatric or pediatric/adolescent dosage Destinee Britton MD Work Phone: [facility] Payers Date Payer Category Payer Unknown 2024 Unknown [id number] 2022 Self-pay [id number] 2022 Blue Cross Blue Shield 1.2.8 [id number] 15 2020 Blue Cross Blue Shield [id number] 2000 Unknown [id number] 2.16.84 0.1.803254.3.579.2.593 2000 Unknown [id number] 2.16.84 0.1.662915.3.579.2.593 2000 Unknown [id number] 2.16.84 0.1.993422.3.579.2.593 2000 Unknown [id number] 2.16.84 0.1.309374.3.579.2.593 2000 Unknown [id number] 2.16.84 0.1.988213.3.579.2.593 2000 Unknown [id number] 2.16.8 40.1.738573.3.579.2.173 2000 Unknown [id number] 2.16.8 40.1.472127.3.579.2.173 2000 Unknown [id number] 2.16.8 40.1.451846.3.579.2.173 2000 Unknown [id number] 2.16. 840.1.843294.3.579.2.1285 2000 Unknown [id number] 2.16. 840.1.886753.3.579.2.1285 2000 Unknown [id number] 2.16. 840.1.042769.3.579.2.1285 2000 Unknown [id number] 2.16. 840.1.912238.3.579.2.1285 2000 Unknown [id number] 2.16. 840.1.499402.3.579.2.1285 2000 Unknown [id number] 2.16. 840.1.731729.3.579.2.1285 2000 Unknown [id number] 2.16. 840.1.702162.3.579.2.1285 2000 Unknown [id number] 2.16. 840.1.223596.3.579.2.1285 2000 Unknown [id number] 2.16. 840.1.380678.3.579.2.1285 2000 Unknown [id number] 2.16.8 40.1.256108.3.579.2.1285 2000 Unknown [id number] 2.16.8 40.1.603612.3.579.2.1285 2000 Unknown [id number] 2.16.8 40.1.166329.3.579.2.1285 2000 Unknown [id number] 2.16.8 40.1.138767.3.579.2.1285 2000 Unknown [id number] 2.16.8 40.1.129427.3.579.2.1285 2000 Unknown [id number] 2.16.8 40.1.086614.3.579.2.1286 2000 Unknown [id number] 2.16. 840.1.303207.3.579.2.196 2000 Unknown [id number] 2.16. 840.1.962047.3.579.2.196 2000 Unknown [id number] 2.16. 840.1.030554.3.579.2.196 2000 Unknown [id number] 2.16. 840.1.149968.3.579.2.196 2000 Unknown [id number] 2.16. 840.1.060857.3.579.2.196 1959 Unknown [id number] 2.16.8 40.1.670234.3.579.2.531 Unknown [id number] 2.16.8 40.1.470711.3.579.2.531 Unknown [id number] 2.16.8 40.1.753315.3.579.2.531 Social History Date Type Detail Facility Tobacco smoking stat us [facility] Unknown if ever smoked [facility] Start: 2000 Sex Assigned At Female [facility] Start: 12-04-2023 End: 05-20-2024 Sex Assigned At [facility] Start: 10-10-2023 Tobacco smoking status HIIS Unknown if ever smoked [facility] Start: 06-26-2023 End: 05-20-2024 Tobacco smoking status HIIS Never smoked tobacco [facility] Start: 06-26-2023 End: 05-20-2024 Tobacco use and exposure Smokeless tobacco non-user [facility] Start: 12-04-2023 End: 05-10-2024 Alcoholic beverage intake Current drinker of alcohol (finding) [facility] Start: 12-04-2023 End: 05-20-2024 History of Social function [facility] Start: 06-11-2023 Alcohol Comment caffeine: 1-2 cups per day [facility] Start: 06-25-2023 Gender identity Identifies as female gender (finding) [facility] Start: 05-24-2024 End: 12-03-2024 Alcoholic beverage intake Ex-drinker (finding) [facility] How often do you nee d to have someone help you when you read instructions, pamphlets, or other written material from your doctor or pharmacy [SILS] Never [facility] Do you belong to any clubs or organizations such as tenriism groups, BPTs, fraNeurescue or athletic groups, or school groups? No [...] To some extent [facility] (I/We) worried wheth er (my/our) food would run out before (I/we) got money to buy more. Never true [facility] Start: 05-20-2024 Tobacco Comment Currently Vape everyday [facility] Start: 07-20-2024 Tobacco smoking status [facility] Ex-smoker [facility] History of tobacco use Current smoker [facility] History of tobacco use Cigarette Smoker [facility] [employer] Start: 2000 Sex assigned at Not on file [facility] Start: 08-16-2012 Sex Female (finding) [facility] How often do you nee d to have someone help you when you read instructions, pamphlets, or other written material from your doctor or pharmacy [SILS] Never [facility] Goals Date Patient Goal Desired Activity /State Clinical Notes 02-29-2020 to 02-15-2025 Telephone Encounter - Evon Loera - 02/15/2025 9:35 AM EDTTelephone Encounter - Evon Loera - 02/15/2025 9:35 AM EDTValeangiebrynn Salas, WILLOW - 02/14/2025 5:30 PM EDT Note Date & Type Note Facility 02-15-2025 Telephone encount er Note Jackson left at 9:13 am Ms, this is Jenn from [facility] in [place]. I am calling about a mutual patient. Edwige Patterson. Date of is 2000. I am calling about the spring tech 28 or the control you guys sent over the quantity on the prescription. They only come in packs at 28. So we need a quantity on that prescription to say 84 with 3 refills. If you could please either send over any prescription with the correct quantity or give us a callback that would be great. Our phone number here is [phone]. Again, this is Jenn from [facility] coming from a [facility] for [employer] 2000 for the spring tech or generic, nor just with [employer], dial the control, calling the change quantity to 84 because they only come in back to 28 and we can not open the pack again, phone number [phone] if you want to call for change or send over a brand new prescription with the correct quantity of 84? Thank you. [facility] 02-15-2025 Miscellaneous Notes Formattin g of this note might be different from the original. Jackson left at 9:13 am Ms, this is Jenn from [facility] in [place]. I am calling about a mutual patient. Edwige Patterson. Date of is 2000. I am calling about the spring tech 28 or the control you guys sent over the quantity on the prescription. They only come in packs at 28. So we need a quantity on that prescription to say 84 with 3 refills. If you could please either send over any prescription with the correct quantity or give us a callback that would be great. Our phone number here is [phone]. Again, this is Jenn from [facility] pharmacy coming from a [facility] for [employer] 2000 for the spring tech or generic, nor just with [place], dial the control, calling the change quantity to 84 because they only come in back to 28 and we can not open the pack again, phone number [phone] if you want to call for change or send over a brand new prescription with the correct quantity of 84? Thank you. documented in this encounter [facility] 02-14-2025 History of Presen t illness Narrative PROBLEM VISIT Edwige Patterson is 24 y.o. a patient of [facility] Here for 6 month follow up Last [...] times a day as needed Norgestimate-Eth Estradiol (Hgy-Fm-Arnbgs) 0.18/0.215/0.25 MG-25 MCG tablet TAKE 1 TABLET [...] the evening and 300 mg before bedtime. ibuprofen 600 MG [...] 8 (eight) hours if needed for nausea No current facility-administered medications on [...] MA,02/14/2025 5:18 PM documented in this encounter [facility] 01-24-2025 History of Presen t illness Narrative Images from the original note were not included. Physical Therapy Evaluation Visit Patient Name: Edwige Patterson Today's Date: 01/24/2025 Encounter Diagnoses Name Primary? Sacrococcygeal disorders, not elsewhere classified Yes Visit number: 1 Timed Code Treatment Minutes: 57 minutes Total Treatment Time: 60 minutes Time In: 1730 Time Out: 1830 History: Pt states she has been having low back problems since July of this year. Pt states sx's have gotten better since then but she still [...] low back pain Subjective: right lumbar region Pain: 5-6/10 Objective: PT Evaluation (01/24/2025) LUMBAR SPINE AROM: [...] Dermatomes: intact Special Test: negative clonus bilateral Treatment: Education: HEP education with demonstration, Educated on Eval Findings and POC Manual Therapy: Passive ROM, Joint mobilization, Soft Tissue Mobilization, Myofascial Release, Muscle Energy Technique, Neural Mobilization, Myofascial Cupping, Dry Needling, IASTM, and Scar mobilization as needed. Therapeutic Exercise: (24 minutes) Strength, Endurance, Flexibility, ROM, HEP, Neural Mobilization, Power, and Core Stability as needed. Pt performed and instructed in home program this date; written instructions and pictures issued with good pt understanding. Discussed importance of posture in sitting and standing while at work to minimize strain on lower lumbar region. Therapeutic Activity: Exercises to improve dynamic activities, functional tasks, functional mobility to return to prior activity level as needed. Neuromuscular re-education: Balance Training, Muscle Facilitation, Dynamic Stability, Core Stabilization, and Blood Flow Restriction Training (BFRT) as needed. Modalities: Heat, Ice, Electrical Stimulation, Ultrasound, Cervical Mechanical Traction, Lumbar Mechanical Traction, Iontophoresis, and Fluidotherapy as needed. HP x 10 mins in prone at end of session. Assessment: Pt is 24 y/o female with complaints of chronic low back pain. Pt with significantly limited trunk flexion ROM. Moderate tenderness bilateral SIJ; however, compression and distraction testing are negative. Pt instructed in prone progression of lumbar extension for home program and will benefit from further PT. Outcome Measure: Back Index: 25/50 Rehab Diagnosis: low back pain, bilateral hip pain and weakness, limited ROM and mobility Short Term Goal: To be met in 2 weeks Goal 1: Pt to be instructed in home exercise program. Shelter Goals: To be met in 10 weeks [...] POC medically necessary. Please sign below. Date: documented in this encounter [facility] 01-06-2025 Evaluation note Diagnosis Onset Date Resolution Paresthesias acute January 06 2:55pm Pain of left sacroiliac joint acute January 11, 2025 9 :14am Pain of right sacroiliac joint acute January 11, 2025 9:14am Paresthesias acute January 11 9:14am [facility] Work Phone: [phone]) 340-357105-30-2025 History of Present illness Narrative* Ness Montez NP - 12/03/2024 1:30 PM [...] prompting another visit to the ER in [place]. A diagnosis of viral gastroenteritis was made [...] HPI Flowsheet Row Documentation from 11/30/2024 in [facility] with Lorin Hunt MA Hospital Information ED, Hospital or [facility] Facility Discharge? ED Patient has been contacted within 2 days of being seen in the ED Yes Diagnosis Viral Infection Discharge Date 11/28/24 Discharged To: Home Setting Discharge Hospital [facility] Engagement Call Start Time 1528 Admission Date [...] fluid intake and abstain from smoking marijuana. Ycnc-rkv-evoanad MiraLAX can be used if constipation persists. [...] or other abnormalities. - Advised to use fvxg-jvf-tooxrfp MiraLAX if constipation persists and to increase fluid intake. - Blood work will be done to assess kidney and liver function. No follow-ups on file. documented in this encounterMiss[id number] Hospital Discharge instructions* Discharge Instructions* Alicia Dunn APRN - CNP [...] sent through Care Everywhere. * Back Pain (Gambian) [facility] History of Present illness Narrative* Jovita Hung Salas, ALEJANDRA - 08/10/2024 4:00 PM EST PROBLEM VISIT Edwige Patterson is 24 y.o. a patient of [facility] Here for follow up on medications Last pap: Last mammogram: n/a No LMP recorded. History: Past Medical History: [...] Prior to Visit Medication Sig Dispense Refill methocarbamol (Robaxin) 500 MG tablet Take 1,000 mg by mouth cetirizine (ZyrTEC) 10 MG tablet TAKE 1 TABLET BY MOUTH EVERY DAY for 30 Days cyclobenzaprine (Flexeril) 10 MG tablet Take 1 tablet by mouth 3 (three) times a day as needed hydrOXYzine pamoate (Vistaril) 25 MG capsule Take 25 mg by mouth 3 (three) times a day as needed ibuprofen 600 MG tablet PLEASE SEE ATTACHED FOR DETAILED DIRECTIONS for 8 Days metFORMIN (Glucophage) 500 MG tablet TAKE 1 TABLET (500 MG) BY MOUTH IN THE MORNING AND IN THE EVENING WITH MEALS 180 tablet 1 norgestimate-ethinyl estradiol (Sprintec 28) 0.25-35 MG-MCG tablet Take 1 tablet by mouth Daily 90 tablet 2 No current facility-administered medications on file prior to visit. Vitals: 08/10/24 1606 BP: 118/70 HPI: Patient presents today for 3 month follow up since starting Metformin she states she took it for a few days and developed a yeast infection and was given and antibiotic and wasn't told she shouldn't take the antibiotic and the metformin together and she states it tore up her stomach. She states she was going to restart it but was scared to restart it with the stomach issues. Patient also still on her period for the last 2 weeks. ROS: Review of Systems Physical exam: Physical Exam Cardiovascular: Rate and Rhythm: Normal rate and regular rhythm. Pulses: Normal pulses. Heart sounds: Normal heart sounds. Pulmonary: Effort: Pulmonary effort is normal. Breath sounds: Normal breath sounds. Abdominal: General: Abdomen is flat. Bowel sounds are normal. Palpations: Abdomen is soft. Tenderness: There is no abdominal tenderness. Assessment and Plan: Edwige was seen today for medication follow up. Diagnoses and all orders for this visit: Unwanted fertility (Primary) - norgestimate-ethinyl estradiol (Ortho Tri-Cyclen LO) 0.18/0.215/0.25 MG-25 MCG tablet; Take 1 tablet by mouth Daily Continue control and metformin. States she will try the metformin again No follow-ups on file. There are no Patient Instructions on file for this visit. Jovita Salas CNM,12/16/2024 4:48 PMpatient documented in this encounterMissouri [id number] Hospital Discharge instructions* Discharge Instructions* Octavio Day II, PA-C - 08/05/2024 11:37 [...] to the hospital. If you're vomiting and cannottake the medicines that were prescribed you should return to the hospital. If you're having persistent fevers you should return to the hospital. If you have any question of whether or not your symptoms are serious enough or for any other urgent concerns- always return to the hospital for repeat evaluation. * Attachments The following attachments cannot be sent through Care Everywhere. * Back Pain (Gambian) [facility] Hospital Discharge instructions* Discharge Instructions* Yoli Lal MD - 07/20/2024 6:55 PM EST I have reviewed your CT results with you and with Dr. Krishnan with your permission Please review your CT findings with Dr. Krishnan You will be provided with Ultram medication which may indeed cause grogginess and also steroid burst You may continue to take your Flexeril as directed if necessary mainly because grogginess * Attachments The following attachments cannot be sent through Care Everywhere. * Strain or Sprain (Gambian) [facility] in [facility] Telephone encounter Note* Telephone Encounter - Bess Lomeli - 06/02/2024 1:06 PM EST Pt called and left a vm at 12:41 pm today She said she has been waiting for her BC to be called over to [facility] but they haven't received anything. She asked if that can please be sent over. [id number] Miscellaneous Notes* Telephone Encounter - Bess Lomeli - 06/02/2024 1:06 PM EST Pt called and left a vm at 12:41 pm today She said she has been waiting for her BC to be called over to [facility] but they haven't received anything. She asked if that can please be sent over. documented in this encounterMissouri [facility] Hospital-[id number] History of Present illness Narrative* Destinee Britton MD - 05/24/2024 8:40 AM EST Images from the original note were not [...] persisted into Friday, causing her to leave workearly. On Friday, she felt nauseous, a known side effect of metformin, and vomited three times onSunday morning. Her diet over the weekend was [...] should contact the clinic. documented in this encounterMissouri [id number] History of Present illness Narrative* Destinee Britton MD - 05/20/2024 3:20 PM EST Images from the original note were not [...] child. 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 She is getting her master's degree [...] sensation around her belly button. Examination revealed apossible yeast infection. A prescription for Diflucan, to be taken once daily for three days, was provided. She was advised against using antibacterial soaps and cautioned against applying alcohol orantibiotic ointments to the affected area. 2. Temporomandibular joint disorder. She reported pressure and slight tenderness near her ear, with no hearing changes. Examination suggested TMJ, possibly due to clenching her jaw at night. She was advised to consult her dentist regarding the use of a bite block during sleep. documented in this encounterMissouri Baptist Hospital-[id number] History of Present illness Narrative* Jovita Salas CNM - 05/10/2024 2:00 PM EST YEARLY HPI: This is a established patient. Chief Complaint Patient presents with Gynecologic Exam Here for annual exam. OB History Para Term AB Living 0 0 0 0 0 0 SAB IAB Ectopic Multiple Live Births 0 0 0 0 0 MANAGER OB complaints: no Changes in healthsince last visit: [...] MA, 05/10/2024 2:06 PM documented in this encounterMissouri Baptist Hospital-[id number] Evaluation note* Encounter Date Diagnosis Assessment Notes Treatment Notes Treatment Clinical Notes Jul, Acute cough (ICD-10 - R05.1) Nothing focal on exam. Likely viral. Given instructions for supportive care. Immediate medical attention for change/worsening. Call with questions/concerns. Jul, Nausea and vomiting, unspecified vomiting type [...] in the meantime. Immediate medical attention for change/worsening. If no improvement in 1-2 weeks, will consider a PPI and GI consultation. [facility] 06-05-2023 Evaluation note* Encounter Date Diagnosis [...] no improvement in 5 to 7 days [facility] 02-06-2023 Evaluation note* Encounter Date Diagnosis [...] Screening for deficiency anemia (ICD-10 - Z13.0) [facility] 08-05-2022 Evaluation note* Encounter Date Diagnosis [...] understanding and is agreeable to treatment plan. [facility] 08-03-2022 Evaluation note* Encounter Date Diagnosis [...] no improvement in 2 to 3 days. [facility] 12-28-2021 Evaluation note* Encounter Date Diagnosis Assessment Notes Treatment Notes Treatment Clinical Notes Jun, Exposure to COVID-19 virus (ICD-10 - Z20.822) Jun, COVID-19 (ICD-10 - U07.1) Patient's rapid test is positive for Covid-19. She is given instructions for quarantine and supportive care. Call immediately for change/worsening or with questions/concerns. [facility] 11-13-2020 NotePROCEDURE: XR ANKLE RT MIN 3 VIEWS COMPARISON: 05/19/2020 intraprocedural, 04/02/2020 HISTORY: Postoperative care FINDINGS: BONES:No fracture, acute abnormality, or significant arthropathy. SOFT TISSUES:Post procedural soft tissue swelling, subcutaneous air and lateral surgical elaina EFFUSION:None visible. OTHER: Negative. IMPRESSION: Postprocedural changes Electronically authenticated by: ROGE THACKER Date: 2020-05-19 14:02[facility] [id number] NotePROCEDURE: XR ANKLE RT 2V COMPARISON: 02/29/2020 [...] Electronically authenticated by: ROGE THACKER Date: 2020-05-19 14:00[facility] HospitalOqhuilbh68-58-2073 History general Narrative - Reported* Type Description Date Medical History Chronic back pain Medical History Hx of concussion Medical History acne Medical History chronic depression Surgical History ankle reconstruction- right 2019 [facility] 09-17-2020 NotePROCEDURE: XR FOOT RT MIN 3 VIEWS COMPARISON: 02/29/2020 HISTORY: Pain in right foot FINDINGS: BONES:Stable intra-articular transverse fracture base of the fifth metatarsal. No acute fracture or dislocation SOFT TISSUES:Negative. No visible soft tissue swelling. EFFUSION:None visible. OTHER: Negative. IMPRESSION: Stable healing intra-articular transverse fracture base of the fifth metatarsal Electronically authenticated by: ROGE THACKER Date: 2020-03-23 10:22[facility] [id number] NotePROCEDURE: XR ANKLE RT MIN 3 VIEWS, [...] Electronically authenticated by: ROGE THACKER Date: 2020-02-29 12:57[facility]08-25-2020 NotePROCEDURE: XR ANKLE RT MIN 3 VIEWS, [...] Electronically authenticated by: ROGE THACKER Date: 2020-02-29 12:57[facility]Evcritical [facility] hospital noteNo Vow To Be [employer] Other Evaluation noteNo assessment information available [facility] Work Phone: evaluation note* Diagnosis Onset Date Resolution Status Bilateral acute otitis media resolved [facility] Work Phone: evaluation note* Diagnosis PCOS (polycystic ovarian syndrome)- Primary Polycystic ovaries Normal gynecologic examination Screening for cervical cancer Screening for malignant neoplasm of the cervix Other acne Hirsutism documented in this encounter [facility]* Diagnosis Candidiasis- Primary Acute nausea with nonbilious vomiting documented in this encounter [facility]* Diagnosis Candidiasis- Primary documented in this encounter [facility]* Diagnosis Encounter for initial prescription of contraceptive pills documented in this encounter [facility]* Diagnosis Strain of lumbar region, initial encounter- Primary Abnormal computed tomography of lumbar spine [facility] Diagnosis Acute exacerbation of chronic low back pain- Primary [facility]* Diagnosis Acute exacerbation of chronic low back pain- Primary documented in this encounter [facility]* Diagnosis Nausea- Primary Nausea alone Pain of upper abdomen documented in this encounter [facility]* Diagnosis Unwanted fertility- Primary PCOS (polycystic ovarian syndrome) Polycystic ovaries documented in this encounter [facility]* Diagnosis Onset Date Resolution Status Admit Date Paresthesias acute January 06 2:55pm [facility] Work Phone: Evaluation note* Diagnosis Sacrococcygeal disorders, not elsewhere classified- Primary documented in this encounter [facility]* Diagnosis Sacrococcygeal disorders, not elsewhere classified- Primary documented in this encounter [facility]* Diagnosis Sacrococcygeal disorders, not elsewhere classified- Primary documented in this encounter [facility] note* Diagnosis PCOS (polycystic ovarian syndrome)- Primary Polycystic ovaries Encounter for initial prescription of contraceptive pills Insulin resistance Other abnormal glucose documented in this encounter [facility]* Diagnosis Sacrococcygeal disorders, not elsewhere classified- Primary [facility] Narrative - Reported* Type Description Date Medical History Chronic back pain Medical History Hx of concussion Medical History acne [facility] [employer] Other History general Narrative - Reported* Type Description Date Medical History Chronic back pain Medical History Hx of concussion Medical History acne Medical History chronic depression [facility] [employer] Other Remtdp for referral (narrative)No reason for referral [facility]: Reevzk for visit Narrative* Rehabilitation - Outpatient (Routine) - Authorized Specialty Diagnoses / Procedures Referred By Donya hughes Referred To Contact Physical Therapy Diagnoses Sacrococcygeal disorders, not elsewhere classified Procedures [place] PHYSICAL THERAPY EVALUATION LOW COMPLEX 20 MINS [place] OFFICE/OUTPATIENT NEW HIGH MDM 60 MINUTES Feliz Musa MD [address] [place] [address], [address] [place] [address] Phone: tel: fax: Delia Kwan PT Referral ID Status Reason Start Date Expiration Date V isits Requested Visits Authorized [id number] Authorized 01/24/2025 03/24/2025 6 6 [facility] Advance Directives Advance Directive Response Recorded Date/ Time Advance Directives No Elana 25t h, 2019 1:27pm Advance Directive Response Recorded Date/ Time Advance Directives No March 12:27pm Advance Directive Response Recorded Date/ Time Advance Directives No March 1:27pm Chief Complaint and Reason for Visit Chief Complaint S99.912A Chief Complaint CONTINUING EAR INFEC TION Chief Complaint CONTINUING EAR INFEC TION possible ear infection Reason for Visit Bilateral acute otit is media Chief Complaint Admit Date Amb Documentation December 01, 2024 6:50a m EMG BLE per Jazmin Beau MOTOR ELECTRICIAN January 06 2:55pm Reason for Visit Admit Date Paresthesias January 06, 2025 2:55p m Chief Complaint Admit Date Amb Documentation December 01, 2024 6:50a m EMG BLE per Jazmin Beau MOTOR ELECTRICIAN January 06 2:55pm low back pain January 11, 2025 9:14a m Reason for Visit Admit Date Paresthesias January 06, 2025 2:55p m Pain of left sacroiliac joint January 11, 2025 9:14am Pain of right sacroiliac joint January 11, 2025 9:14am Paresthesias January 11, 2025 9:14a m Assessments No Assessments Information Available Summary Purpose Family History Relationship Condition Age at Onset Recorded Date/T katarzyna Not Specified Diabetes mellitus Unknown sister Hypertension Unknown Relationship Condition Age at Onset Recorded Date/T katarzyna mother Diabetes mellitus Unknown sister Hypertension Unknown Additional Source Comments INFORMATION SOURCE (unrecogn ized section and content) DATE CREATED AUTHOR 01/04/2021 [facility] DATE CREATED AUTHOR AUTHOR'S ORGANIZ ATION 06/27/2021 [facility] dical Specialist DATE CREATED AUTHOR AUTHOR'S ORGANIZ ATION 12/16/2022 [facility] DATE CREATED AUTHOR AUTHOR'S ORGANIZ ATION 12/01/2024 [facility] DATE CREATED AUTHOR AUTHOR'S ORGANIZ ATION 01/24/2025 [facility] DATE CREATED AUTHOR AUTHOR'S ORGANIZ ATION 02/06/2025 [facility] REASON FOR VISIT (unrecogniz ed section and [...] since 2016. MRI completed on Friday in [place]. Reason Comments Back Pain Bilateral lower back [...] control. Reason Comments ER Follow-up Vomiting Nausea Reason Comments Medication Follow Up Reason Comments Follow-up Care Teams (unrecognized sec tion and content) Team Status: Active Member Role Status Dates Becky Guaman DO Primary Care Provider Active Team Status: Active Member Role Status Dates Becky Guaman DO Primary Care Provider Active Start: December 01, 2024 Lacey Morton LPN Attending Provider Active Star t: December 01, 2024 Team Status: Inactive Member Role Status Dates Becky Guaman DO Primary Care Provider Active Start: January 06, 2025 End: January 06, 2025 Mack Akhtar DO Attending Provider Active Start: January 06, 2025 End: January 06, 2025 Team Status: Inactive Member Role Status Dates PHYSICIAN NO FAMILY Primary Care Provider Active Becky Guaman DO Attending Provider Active Team Status: Active Member Role Status Dates PHYSICIAN NO FAMILY Primary Care Provider Active Team Status: Inactive Member Role Status Dates PHYSICIAN NO FAMILY Primary Care Provider Active LOU Morgan Attending Provider Active Team Status: Inactive Member Role Status Dates Grisel Andres APRN Attending Provider Active Start: October 10, 2023 End: October 10, 2023 Becky Guaman DO Primary Care Provider Active Start: October 10, 2023 End: October 10, 2023 Team Status: Inactive Member Role Status Dates Becky Guaman DO Primary Care Prov valerie Attending Provider Active Start: November 11, 2023 End: November 11, 2023 Plate Glass Installer Helper Relationship Specialty Start Date End Date Destinee Britton MD [address] [place] [facility] [place] [address] PCP - General Family Medicine 11/12/22 Plate Glass Installer Helper Relationship Specialty Start Date End Date Destinee Britton MD [address] [place] [facility] [place] [address] PCP - General Family Medicine 11/12/22 Plate Glass Installer Helper Relationship Specialty Start Date End Date Destinee Britton MD [address] [place] [facility] [place] [address] PCP - General Family Medicine 11/12/22 Plate Glass Installer Helper Relationship Specialty Start Date End Date Destinee Britton MD [address] [place] [facility] [place] [address] PCP - General Family Medicine 11/12/22 Plate Glass Installer Helper Relationship Specialty Start Date End Date Destinee Britton MD [address] [place] [facility] [place] [address] PCP - General Family Medicine 11/12/22 Plate Glass Installer Helper Relationship Specialty Start Date End Date Becky Guaman DO NPI: [address] [place] [address];[address] [place] [address] PCP - General Family Medicine 07/20/24 Plate Glass Installer Helper Relationship Specialty Start Date End Date Becky Guaman DO NPI: [address] [place] [address];[address] [place] [address] PCP - General Family Medicine 07/20/24 Plate Glass Installer Helper Relationship Specialty Start Date End Date Becky Guaman DO NPI: [address] [place] [address];[address] [place] [address] PCP - General Family Medicine 07/20/24 Plate Glass Installer Helper Relationship Specialty Start Date End Date Destinee Britton MD [address] [facility] [place] [address] PCP - General Family Medicine 11/12/22 Plate Glass Installer Helper Relationship Specialty Start Date End Date Destinee Britton MD [address] [facility] [place] [address] PCP - General Family Medicine 11/12/22 Plate Glass Installer Helper Relationship Specialty Start Date End Date Destinee Britton MD [address] [facility] [place] [address] PCP - General Family Medicine 11/12/22 Team Status: Inactive Member Role Status Dates Becky Guaman DO Primary Care Provider Active Start: January 11, 2025 End: January 11, 2025 Feliz Musa MD Attending Provider Active Star t: January 11, 2025 End: January 11, 2025 Plate Glass Installer Helper Relationship Specialty Start Date End Date Destinee Britton MD [address] [facility] [place] [address] PCP - General Family Medicine 11/12/22 Plate Glass Installer Helper Relationship Specialty Start Date End Date Destinee Britton MD [address] [facility] [place] [address] PCP - General Family Medicine 11/12/22 Plate Glass Installer Helper Relationship Specialty Start Date End Date Destinee Britton MD [address] [facility] [place] [address] PCP - General Family Medicine 11/12/22 Plate Glass Installer Helper Relationship Specialty Start Date End Date Destinee Britton MD [address] [facility] [place] [address] PCP - General Family Medicine 11/12/22 Plate Glass Installer Helper Relationship Specialty Start Date End Date Destinee Britton MD [address] [facility] [place] [address] PCP - General Family Medicine 11/12/22 Plate Glass Installer Helper Relationship Specialty Start Date End Date Destinee Britton MD [address] [facility] [place] [address] PCP - General Family Medicine 11/12/22 Plate Glass Installer Helper Relationship Specialty Start Date End Date Destinee Britton MD [address] [facility] [place] [address] PCP - General Family Medicine 11/12/22 Plate Glass Installer Helper Relationship Specialty Start Date End Date Destinee Britton MD [address] [facility] [place] [address] PCP - General Family Medicine 11/12/22 Plate Glass Installer Helper Relationship Specialty Start Date End Date Destinee Britton MD [address] [facility] [place] [address] PCP - General Family Medicine 11/12/22 Goals [...] on, 12 hours off. 10 patch 11/24/2024 methylPREDNISolone (MEDROL, QUIN,) 4 MG tablet Follow [...] On Fri07/20/24 at 1615, For 1 dose 161 (Given - Provid er: Ruth Cobos RN) ketorolac (TORADOL) injection 15 mg (COMPLETED) 15 mg, IntraVENous, ONCE, 1 dose, On Fri07/20/24 at 1615, Do not administer for more than 5 days. 161 (Given - Provid er: Ruth Cobos RN) morphine (PF) injection 2 mg (COMPLETED) 2 mg, IntraVENous, ONCE, 1 dose, On e 07/20/24 at 1800, If oral and IV narcotics ordered, use oral first and only use IV if oral is ineffective or cannot take oral. Do Not give oral and IV within 1 hour of each other unless specifically ordered. 1804 (Given - Provid er: Ruth Cobos RN) ondansetron (ZOFRAN) injection 4 mg (COMPLETED) 4 mg, IntraVENous, ONCE, 1 dose, On 07/20/24 at 1800 1805 (Given - Provid er: [...] BE BASED ON THE PRIMARY CLINICAL RECORDS. [employer] [facility]. provides no warranty or guarantee of the accuracy or completeness of information in this document.
[2025-02-21 11:33] VITALS: BP 116/77; PULSE 70; TEMP 36.6; O2SAT 99
[2025-02-21 11:58] VITALS: BP 120/67; PULSE 57; O2SAT 100
[2025-02-21 11:59] VITALS: BP 115/62; PULSE 62; O2SAT 100
[2025-02-21] MEDS: LIDOCAINE HCL 2% 400 MG/20 ML MDV INJ (12:01)
[2025-02-21] MEDS: BUPIVACAINE HCL 0.25% PF 25 MG/10 ML VIAL 2 ML INJ (12:01)
[2025-02-21] MEDS: IOHEXOL 240 MG/ML - 10 ML VIAL INJ (12:01)
[2025-02-21] MEDS: METHYLPREDNISOLONE ACETATE 40 MG/ML VIAL INJ (12:02)
--- NOTE | 2025-02-21 12:04 | W.PM.PROCNOT ---
Date of procedure: 02/21/25 Pre-op diagnosis: Pain due to bilateral sacroiliitis Post-op diagnosis: same as pre-op Procedure: Procedure: Bilateral sacroiliac joint injection Medications: Bupivacaine 0.25% 3cc, depomedrol 40mg x2 After informed consent was obtained, the patient was brought to the medical procedure unit and placed in the prone position, when a timeout was completed verifying correct patient, procedure, site, positioning, implant, and/or special equipment.? The skin overlying the area was prepped and draped in standard sterile fashion using alcohol.? A 25-gauge needle was inserted towards the left sacroiliac joint under direct fluoroscopic imaging.? Needle tip was advanced until the joint was encountered.? We instilled a total of 2 mL of solution.? The same procedure was then completed on the right side.? Postoperatively needles were removed.? The patient tolerated the procedure well without complication.? The patient reported reduction in pain symptoms postoperatively. Anesthesia: Local Surgeon: Ty Fairbanks Pathology: none sent Condition: stable Disposition: no change
== END 2025-02-21 12:06 | disposition home or self-care (01) ==
LOC: SURGOUT 10:51
PROVIDERS: PCP Student in an Organized Health Care Education/Training Program; Visit Provider Anesthesiology
DX: M46.1 Sacroiliitis, not elsewhere classified (principal); M53.3 Sacrococcygeal disorders, not elsewhere classified
CPT/HCPCS: 27096; 36415; 84703; J0665; J1010; Q9966

== ENCOUNTER 2025-03-03 09:13 | Outpatient (OUT) | payer BC, SELFPAY ==
--- OUTSIDE RECORDS SUMMARY | 2024-08-24 07:15 | XMS_ITS ---
Author Organization [facility] Address [address] [place] [address] Care Team Providers Care Sign Erector And Repairer Name Role Phone rodrigoMaxxKelinNancy Cruz Unavailable Edgar Patricio Unavailable [phone] Allergies No Known Allergies REASON FOR VISIT Lumbar Disc Herniation- Dr Cruz Medications Medication SIG (Take, Route, Frequency, Duration) Notes Start Date End Date Status CETIRIZINE HCL 10 MG TAKE 1 TABLET BY [facility] EVERY DAY for 30 Days [...] smoker Encounters Encounter Location Date Provider Diagnosis [facility] [address] [place] [address] 08/24/2024 Edgar Patricio Plan Of Treatment No Information Progress Notes * ELADIA SIERRADOB:1999 (24 yo F)Acc No.[id number]:08/24/2024 Patient: ELADIA ZULETA Provider: Brisa Patricio MD :2000 A ge:24 Y S ex:Female Date:08/24/2024 Address:[address] [place], [place] [phone] Subjective: * Chief Complaints: * 1 . [...] Electronic signature of Edgar Patricio MD on 03/03/2025 at 09:15 AM EDT Sign off status: Pending * Provider: Brisa Patricio MD Date: 0 08/24/2024 Generated for Nii amezquita/Judy/Monica on: 0 03/03/2025 09:15 AM EDT
--- OUTSIDE RECORDS SUMMARY | 2024-09-06 09:00 | XMS_ITS ---
Author Organization [facility] Address [address] [place] [address] Care Team Providers Care Rail Transportation Tabeler Name Role Phone rodrigoNabilabhishekNancy Cruz Unavailable Edgar Patricio Unavailable [phone] REASON FOR VISIT Lumbar Disc herniation Dr Cruz Encounters Encounter Location Date Provider Diagnosis [facility] [address] [place] [phone] 09/06/2024 Edgar Patricio Plan Of Treatment No Information Progress Notes * ELADIA SIERRADOB:1999 (24 yo F)Acc No.[id number]:09/06/2024 Patient: ELADIA ZULETA Provider: Brisa Patricio MD :2000 A ge:24 Y S ex:Female Date:09/06/2024 Address:[address] [place], [place] [phone] Subjective: * Chief Complaints: * 1 [address] Lumbar Disc her[address]iation Dr Cruz. * Medical History: Objective: * Vitals: Assessment: Plan: * Treatment: Forms: * Images: * Electronic signature of Edgar Patricio MD on 03/03/2025 at 09:15 AM EDT Sign off status: Pending * Provider: Brisa Patricio MD Date: 0 09/06/2024 Generated for Shamari alirio/Judy/eTransmitting on: 0 03/03/2025 09:15 AM EDT
--- OUTSIDE RECORDS SUMMARY | 2025-02-28 18:00 | XMS_ITS | Encounter Summary ---
Author Organization [facility] Address [address] [place] [address] Care Team Providers Care Report Specialist Name Role Phone Destinee Britton MD Primary Care Provider [phone] Reason for Visit * Rehabilitation - Outpatient (Routine) - Closed Specialty Diagnoses / Procedures Referred By Contzoraida t Referred To Contact Physical Therapy Diagnoses Sacrococcygeal disorders, not elsewhere classified Procedures [place] PHYSICAL THERAPY EVALUATION LOW COMPLEX 20 MINS [place] OFFICE/OUTPATIENT NEW HIGH MDM 60 MINUTES Feliz Musa MD [address] [place] [address], [address] [place] [address] Phone: tel: fax: Dleia Kwan PT Referral ID Status Reason Start Date Expiration Date Visits Re quested Visits Authorized [id number] Closed 01/24/2025 03/24/2025 6 6 Encounter Details Date Type Department Care Team (Latest Contact Info) Description 02/28/2025 6:00 PM EDT Treatment [facility] [address] [facility] [address] [place] [address] Delia Kwan PT Sacrococcygeal disorders, not elsewhere classified (Primary [...] week 05/20/2024 How often do you attend protestant or jewish serv ices? Never 05/20/2024 Do you belong to any clubs o r organizations such as protestant groups, unions, fraternal or athletic groups, or [...] were you homeless or living in a detention (including now)? No 05/20/2024 Comments No Sex and Gender Information Value Date Recorded Sex Assigned at Female 06/25/2023 1:54 PM EST Legal Sex Female 6:57 PM EDT Gender Identity Female 06/25/2023 1:54 PM EST Sexual Orientation Not on file documented as of this encounter Progress Notes * Delia Kwan, PT - 02/28/2025 6:00 PM EDT Images from the original note were not included. Physical Therapy Treatment Visit Patient Name: Edwige Patterson Today's Date: 02/28/2025 Encounter Diagnoses Name Primary? Sacrococcygeal disorders, not elsewhere classified Yes Visit number: 5 Timed Code Treatment: 25 minutes Total Treatment Time: 40 minutes Time In: 5:55 PM Time Out: 6:43 PM History: Pt states she has been [...] right sided low back pain Subjective: Pt states feeling better since pain management injections; states pain now feels more muscular in nature. Doing exercises at home. Pain: 3-4/10 Objective: PT Evaluation (01/24/2025) LUMBAR SPINE AROM: [...] pt in prone, PA mobs, sacral distractions, MFD to paraspinals to reduce muscle tone. IDN to bilateral SIJ in prone with static placement of 3 inch needles (5 mins, no charge) Therapeutic Exercise: (15 minutes) Guided pt through Hank phase I [...] (BFRT) as needed. Modalities: (10 minutes ) HP in prone at beginning of session to reduce inflammation and muscle soreness Assessment: Pt is 24 y/o female with complaints of chronic low back pain with radicular pain into RLE/hip. Pt with moderate to severe tenderness right SIJ. Increase pain noted with prone hip extension, held this date. Will continue to progress as pt tolerates. Outcome Measure: Back Index: 25/50 Rehab Diagnosis: low back pain, bilateral hip pain and weakness, limited ROM and mobility Short Term Goal: To be met in 2 weeks Goal 1: Pt to be instructed in home exercise program. Seamstress Fitter Goals: To be met in 10 weeks [...] sign below. Date: documented in this encounter Plan of Treatment Upcoming Encounters Date Type Department Care Team (Late st Contact Info) Description 08/15/2025 5:30 PM EST Office Visit [facility] [address] [place] [address] Jovita Salas CNM [address] [place], [place] [id number] documented as of this encounter Visit Diagnoses Diagnosis Sacrococcygeal disorders, not elsewhere classified- Primary documented in this encounter Care Teams Report Specialist Relationship Specialty Start Date End Date Destinee Britton MD [address] [place] [address] PCP - General Family Medicine 11/12/22 documented as of this encounter
--- OUTSIDE RECORDS SUMMARY | 2025-03-02 17:30 | XMS_ITS | Encounter Summary ---
Author Organization [facility] Address [address] [place] [address] Care Team Providers Care Display Decorator Name Role Phone Destinee Britton MD Primary Care Provider [phone] Reason for Visit * Rehabilitation - Outpatient (Routine) - Closed Specialty Diagnoses / Procedures Referred By Donya t Referred To Contact Physical Therapy Diagnoses Sacrococcygeal disorders, not elsewhere classified Procedures [place] PHYSICAL THERAPY EVALUATION LOW COMPLEX 20 MINS [place] OFFICE/OUTPATIENT NEW HIGH MDM 60 MINUTES Feliz Musa MD [address] [place] [address], [address] [place] [address] Phone: tel: fax: Delia Kwan PT Referral ID Status Reason Start Date Expiration Date Visits Re quested Visits Authorized [id number] Closed 01/24/2025 03/24/2025 6 6 Encounter Details Date Type Department Care Team (Latest Contact Info) Description 03/02/2025 5:30 PM EDT Treatment [facility] [address] [facility] [address] [place] [address] Ryan Barger PTA Sacrococcygeal disorders, not elsewhere classified (Primary [...] week 05/20/2024 How often do you attend restorationism or zoroastrian serv ices? Never 05/20/2024 Do you belong to any clubs o r organizations such as restorationism groups, unions, fraternal or athletic groups, or [...] Recorded Patient Health Questionnaire-2 Score 0 05/20/2024 [facility] - Occupational Stress [...] any time in the past 12 m [facility], were you homeless or living in [...] 5:30 PM EST Office Visit [facility] [address] [place] [address] Jovita Salas CNM [address] [place], [place] [id number] documented as of this encounter Visit Diagnoses Diagnosis Sacrococcygeal disorders, not elsewhere classified- Primary documented in this encounter Care Teams Display Decorator Relationship Specialty Start Date End Date Destinee Britton MD [address] [place] [address] PCP - General Family Medicine 11/12/22 documented as of this encounter
--- OUTSIDE RECORDS SUMMARY | 2025-03-03 09:14 | XMS_ITS | Encounter Summary ---
Author Organization [facility] Address [address] [facility] [place] [address] Care Team Providers Care Musculoskeletal Physiotherapist Name Role Phone Destinee Britton MD Primary Care Provider [phone] Encounter Details Date Type Department Care Team (Late st Contact Info) Description 02/28/2025 Bamboo flowsheet [facility] [address] [facility] [address] [place] [address] Delia Kwan, PT Social History Tobacco Use Types Packs/Day Years [...] week 05/20/2024 How often do you attend adventist or lutheran serv ices? Never 05/20/2024 Do you belong to any clubs o r organizations such as adventist groups, unions, fraternal or athletic groups, or [...] 05/20/2024 [facility] - Occupational [...] PM EST Office Visit [facility] [address] [place] [address] Jovita Salas CNM [address] [place], [place] [id number] documented as of this encounter Visit Diagnoses Not on filedocumented in this encounter Care Teams Musculoskeletal Physiotherapist Relationship Specialty Start Date End Date Destinee Britton MD [address] [place], [place] [id number] PCP - General Family Medicine 11/12/22 documented as of this encounter
--- OUTSIDE RECORDS SUMMARY | 2025-03-03 09:14 | XMS_ITS | Encounter Summary ---
Author Organization [facility] Address [address] [place] [address] Care Team Providers Care Hand Packer/Packager Name Role Phone Destinee Britton MD Primary Care Provider [phone] Encounter Details Date Type Department Care Team (Late st Contact Info) Description 03/02/2025 Bamboo flowsheet [facility] [address] [facility] [address] [place] [address] Ryan Barger PTA Social History Tobacco Use Types Packs/Day [...] How often do you attend pentecostal or baptist serv ices? Never 05/20/2024 Do you belong [...] Recorded Patient Health Questionnaire-2 Score 0 05/20/2024 [facility] - [...] in the past 12 m [facility], were you homeless or living in a [...] PM EST Office Visit [facility] [address] [place] [address] Jovita Salas CNM [address] [place], [place] [phone] documented as of this encounter Visit Diagnoses Not on filedocumented in this encounter Care Teams Hand Packer/Packager Relationship Specialty Start Date End Date Destinee Britton MD [address] [place], [place] [id number] PCP - General Family Medicine 11/12/22 documented as of this encounter
--- OUTSIDE RECORDS SUMMARY | 2025-03-03 09:14 | XMS_ITS | Encounter Summary ---
Author Organization [facility] Address [address] [place] [address] Care Team Providers Care Environmental Law Professor Name Role Phone Destinee Britton MD Primary Care Provider [phone] Encounter Details Date Type Department Care Team (Latest Contact Info) Description 03/02/2025 Travel Social History Tobacco Use Types Packs/Day [...] How often do you attend synagogue or yarsani serv ices? Never 05/20/2024 Do you belong [...] Recorded Patient Health Questionnaire-2 Score 0 05/20/2024 [facility] Occupat ional Health - Occupational [...] any time in the past 12 m [facility], were you homeless or living [...] PM EST Office Visit [facility] [address] [place] [address] Jovita Salas CNM [address] [place], [place] [address] documented as of this encounter Visit Diagnoses Not on filedocumented in this encounter Care Teams Environmental Law Professor Relationship Specialty Start Date End Date Destinee Britton MD [address] [place], [place] [phone] PCP - General Family Medicine 11/12/22 documented as of this encounter
--- OUTSIDE RECORDS SUMMARY | 2025-03-03 09:14 | XMS_ITS | Encounter Summary ---
Author Organization [facility] Address [address] [place] [address] Care Team Providers Care Rover Tender Name Role Phone Destinee Britton MD Primary Care Provider [phone] Encounter Details Date Type Department Care Team (Latest Contact Info) Description 02/28/2025 Travel Social History Tobacco Use Types Packs/Day [...] week 05/20/2024 How often do you attend episcopal or confucianism serv ices? Never 05/20/2024 Do you belong to any clubs o r organizations such as episcopal groups, unions, fraternal or athletic groups, or [...] Recorded Patient Health Questionnaire-2 Score 0 05/20/2024 [facility] Occupat ional Health - Occupational Stress [...] time in the past 12 m [facility], were you homeless or living in a retirement (including now)? No 05/20/2024 Comments No Sex [...] PM EST Office Visit [facility] [address] [place] [address] Jovita Salas CNM [address] [place], [place] [address] documented as of this encounter Visit Diagnoses Not on filedocumented in this encounter Care Teams Rover Tender Relationship Specialty Start Date End Date Destinee Britton MD [address] [place], [place] [phone] PCP - General Family Medicine 11/12/22 documented as of this encounter
--- OUTSIDE RECORDS SUMMARY | 2025-03-03 09:15 | XMS_ITS | Clinical Summary ---
Author Organization [facility] Address [address] [facility], [address] [place] [address] Care Team Providers Care Business Case Analyst Name Role Phone Ottoniel Romeo Primary Care Provider [phone] Allergies No known active allergies Medications buPROPion [...] supply: 30 days 27 capsule 08/05/2024 Active Social History Tobacco Use Types Packs/Day Years [...] patient's age to complete this topic Insurance Care Teams Business Case Analyst Relationship Specialty Start Date End Date Ottoniel Romeo DO [address] [place] [address];[address] [place] [address] PCP - General Family Medicine 07/20/24
--- OUTSIDE RECORDS SUMMARY | 2025-03-03 09:15 | XMS_ITS | Encounter Summary ---
Author Organization [facility] Address [address] [place] [address] Care Team Providers Care Synthetic Staple Extruder Name Role Phone Destinee Britton MD Primary Care Provider [phone] Encounter Details Date Type Department Care Team (Late st Contact Info) Description 09/10/2024 Telephone [facility] [address] [place] [address] Jovita Salas, [facility] [address] [place], [place] [phone] Social History Tobacco Use Types Packs/Day Years [...] How often do you attend religious or episcopalian serv ices? Never 05/20/2024 Do you belong [...] Recorded Patient Health Questionnaire-2 Score 0 05/20/2024 [facility] - Occupational [...] Description 08/15/2025 5:30 PM EST Office Visit [facility] [address] [place] [address] Jovita Salas, WILLOW [address] [place] [address] documented as of this encounter Visit Diagnoses Not on filedocumented in this encounter Care Teams Synthetic Staple Extruder Relationship Specialty Start Date End Date Destinee Britton MD [address] [place] [address] PCP - General Family Medicine 11/12/22 documented as of this encounter
--- OUTSIDE RECORDS SUMMARY | 2025-03-03 09:15 | XMS_ITS | Encounter Summary ---
Author Organization [facility] Address [address] [facility] [place] [address] Care Team Providers Care Ski Tow Operator Name Role Phone Destinee Britton MD Primary Care Provider [phone] Encounter Details Date Type Department Care Team (Late st Contact Info) Description 02/15/2025 Telephone [facility] [address] [place] [address] Destinee Britton MD [address] [place] [address] Social History Tobacco Use Types [...] week 05/20/2024 How often do you attend muslim or voodoo serv ices? Never 05/20/2024 Do you belong to any clubs o r organizations such as muslim groups, unions, fraternal or athletic groups, or [...] Recorded Patient Health Questionnaire-2 Score 0 05/20/2024 [facility] Occup[facility] ional Health - Occupational [...] any time in the past 12 m [facility], were you homeless or living in a intermediate (including now)? No 05/20/2024 Comments No Sex and Gender Information Value Date Recorded Sex Assigned at Female 06/25/2023 1:54 PM EST Legal Sex Female 6:57 PM EDT Gender Identity Female 06/25/2023 1:54 PM EST Sexual Orientation Not on file documented as of this encounter Miscellaneous Notes * Telephone Encounter - Marci Reyes MA - 02/17/2025 2:33 PM EDT Notified pharmacy. * Telephone Encounter - Evon Loera - 02/15/2025 9:35 AM EDT Vm left at 9:13 am Wy, this is Jenn from [facility] in [place]. I am calling about a mutual patient. [...] be great. Our phone number here is [phone]. Again, this is Jenn from [facility] coming from a Main for Edwige Evans move 2000 for the spring tech or generic, nor just with Clarke, dial the control, calling the change quantity to 84 because they only come in back to 28 and we can not open the pack again, phone number [phone] if you want to call for change or send over a brand new prescription with the correct quantity of 84? Thank you. documented in this encounter Plan of Treatment Upcoming Encounters Date Type Department Care Team (Late st Contact Info) Description 08/15/2025 5:30 PM EST Office Visit [facility] [address] [place] [address] Jovita Salas CNM [address] [place], [place] [phone] documented as of this encounter Visit Diagnoses Not on filedocumented in this encounter Care Teams Ski Tow Operator Relationship Specialty Start Date End Date Destinee Britton MD [address] [place], [place] [phone] PCP - General Family Medicine 11/12/22 documented as of this encounter
--- OUTSIDE RECORDS SUMMARY | 2025-03-03 09:15 | XMS_ITS | Encounter Summary ---
Author Organization [facility] Address [address] [facility] [place] [address] Care Team Providers Care Rn Clinical Resource Name Role Phone Destinee Britton MD Primary Care Provider [phone] Encounter Details Date Type Department Care Team (Late st Contact Info) Description 02/18/2025 Abstract [facility] [address] [place] [address] Destinee Britton MD [address] [place], [place] [address] Social History Tobacco Use Types Packs/Day Years [...] week 05/20/2024 How often do you attend mu-ism or mandaen serv ices? Never 05/20/2024 Do you belong to any clubs o r organizations such as mu-ism groups, unions, fraternal or athletic groups, or [...] Recorded Patient Health Questionnaire-2 Score 0 05/20/2024 [facility] Occup[facility] ional Health - Occupational [...] any time in the past 12 m [facility], were you homeless or living in a skilled nursing (including now)? No 05/20/2024 Comments No Sex [...] PM EST Office Visit [facility] [address] [place] [address] Jovita Salas CNM [address] [place], [place] [address] documented as of this encounter Visit Diagnoses Not on filedocumented in this encounter Care Teams Rn Clinical Resource Relationship Specialty Start Date End Date Destinee Britton MD [address] [place], [place] [address] PCP - General Family Medicine 11/12/22 documented as of this encounter
--- OUTSIDE RECORDS SUMMARY | 2025-03-03 09:15 | XMS_ITS | Patient Health Record ---
Author Organization [facility] Address [address] [place] [address] Care Team Providers Care [place] Home Demonstrator Name Role Phone Nancy Delcid Unavailable [phone] Edgar Patricio Unavailable [phone] Allergies No Known Allergies Reason For Referral Reason PRIOR AUTH APPROVED ANTHEM...MRI lumbar scheduled 08/03/24 DONE Diagnosis 1 Lumbar radiculopathy (M54.16) Referral Organization [facility] Referring Provider First Name Nancy Referring Provider Last Name Radha padron Referring Provider Speciality Orthopedic Surgery Referred Organization [facility] Referred Address [address] [place] [address], Procedure 1 MRI Lumbar Spine w/o Dye ([id number]) General Notes Kathy Deal 07/27/19 11:05:31 AM >, Demetria Hannon 07/27/2024 11:28:31 AM > PER PEPITO SYED AUTH HAS BEEN APPROVED FROM 07/27/2024-08/25/2024 AUTH # [id number], AUTH IN CHART. Referral Priority Stat Reason Referral Dr. Sheng capellan and treat L4-S1 YELENA Diagnosis 1 Lumbar disc herniati on (M51.26) Referral Organization [facility] Referring Provider First Name Nancy Referring Provider Last Name Radha g Referring Provider Speciality Orthopedic Surgery Referred Organization [facility] Referred Provider Edgar Patricio Referred Address [address] [place] [address], General Notes Mirian Dealha 08/03/19 12:17:52 PM >, Eladia Taylor 08/04/2024 08:27:50 AM >CAlled and lmovm to schedule with Dr Patricio-september, Eladia Taylor 08/04/2024 08:36:04 AM >scheduled 3.3.25 Referral Priority Routine Reason [phone] fax [facility]; Pt requesting pain management at that location. Diagnosis 1 Lumbar radiculopathy (M54.16) Referral Organization [facility] Referring Provider First Name Zenag Referring Provider Last Name xxUdo-Zena g Referring Provider Speciality Orthopedic Surgery [facility] Referred Address [place], [place], General Notes Malia Lobato 12/2024 02:22:47 PM >, Malia Lobato 08/13/2024 09:43:43 AM >FYI: She is scheduled for an appt with Dr. 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) Active confirmed Vital Signs Height 5ft 7in in 08/03/2024 Weight 240 lbs 08/03/2024 BMI 37.59 08/03/2024 Encounters Encounter Location Date Provider Diagnosis [facility] [address] [place] [address] 08/03/2024 [facility] Lumbar radiculopathy M54.16 [facility] [address] [place] [address] 07/27/2024 [facility] Lumbar radiculopathy M54.16 ; Discogenic low back pain M51.360 and Right hip pain M25.551 [facility] [address] [place] [address] 08/03/2024 [facility] Lumbar disc herniation M51.26 and Lumbar radiculopathy M54.16 [facility] [address] [place] [address] 08/05/2024 Edgar Patricio [place] [address] [place] [address] 08/12/2024 [facility] Lumbar radiculopathy M54.16 ; Right hip [...] Lumbar spine 2v ap and lat - 76640 07/27 Hip, right 2v WITH PELVIS - 56547 2024 Future Test Test Name Order Date MRI : Lumbosacral Spine W/O Contrast - 7 214707/27/2024 Insurance Providers Payer Name Payer Address Payer Phone Subscriber Number Group Number Insured Name Patient Relationship to Insured Coverage Start Date Coverage End Date [address] [place] [address] [id number] ELADIA PAN Self - patient is [...]
--- OUTSIDE RECORDS SUMMARY | 2025-03-03 09:15 | XMS_ITS | Clinical Summary ---
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 025 Active Norgestimate-Eth Estradiol (Tvi-Yl-Sttdfp) 0.18/0.215/0.25 MG-25 MCG tabletIndications :Unwanted fertility TAKE 1 TABLET BY MOUTH EVERY DAY 84 tablet 025 Active etodolac (Lodine) 400 MG tablet Take 400 mg by mouth 2 (two) times a day as needed 025 Active baclofen (Lioresal) 10 MG tablet Take [...] 1 024 2024 Discontinued norgestimate-ethi nyl estradiol (Sprintec 28) 0.25-35 MG-MCG tabletIndications :Encounter for initial prescription of contraceptive pills Take 1 tablet by mouth Daily 90 tablet 025 2024 Discontinued(R eorader) Active Problems Problem Noted Date Diagnosed Date [...] Encounters Date Type Department Care Team Description 03/02/2025 5:30 PM EDT Treatment [facility] [address] [place] [address] Ryan Barger, DINING ROOM CAPTAIN Sacrococcygeal disorders, not elsewhere classified (Primary Dx) 03/02/2025 Bamboo flowsheet [facility] [address] [place] [address] Ryan Barger, DINING ROOM CAPTAIN 03/02/2025 Travel 02/28/2025 6:00 PM EDT Treatment [facility] [address] [place] [address] Delia Kwan, PT Sacrococcygeal disorders, not elsewhere classified (Primary Dx) 02/28/2025 Bamboo flowsheet [facility] [address] [facility] [address] [place] [address] Delia Kwan, PT 02/28/2025 Travel 02/18/2025 Abstract [facility] [address] [place] [address] [place] [address] Destinee Britton MD 02/15/2025 6:00 PM EDT Treatment [facility] [address] [facility] [address] [place] [address] Kem Costa, DINING ROOM CAPTAIN Sacrococcygeal disorders, not elsewhere classified (Primary Dx) 02/15/2025 Travel 02/15/2025 [facility] [address] [place] [address] [place] [address] Destinee Britton MD 02/14/2025 5:30 PM EDT Office Visit [facility] [place] [address] Jovita Salas CNM PCOS (polycystic ovarian syndrome) (Primary Dx); Encounter for initial prescription of contraceptive pills; Insulin resistance 02/14/2025 Bamboo flowsheet [facility] [facility] [place] [address] Jovita Salas CNM 02/14/2025 Travel 02/01/2025 6:00 PM EDT Treatment [facility] [address] [place] [address] Kem Costa, DINING ROOM CAPTAIN Sacrococcygeal disorders, not elsewhere classified (Primary Dx) 02/01/2025 Bamboo flowsheet [facility] [address] [place] [address] Kem Costa, DINING ROOM CAPTAIN 02/01/2025 Travel 01/27/2025 6:00 PM EDT Treatment [facility] [address] [place] [address] Ofelia Blakely, DINING ROOM CAPTAIN Sacrococcygeal disorders, not elsewhere classified (Primary Dx) 01/27/2025 Bamboo flowsheet [facility] [address] [place] [address] Ofelia Blakely, DINING ROOM CAPTAIN 01/27/2025 Travel 01/25/2025 Plan of Care Documentation [facility] [address] [place] [address] 01/24/2025 6:00 PM EDT Evaluation [facility] [address] [place] [address] Delia Kwan, PT Sacrococcygeal disorders, not elsewhere classified (Primary Dx) 01/24/2025 Bamboo flowsheet [facility] [address] [place] [address] Delia Kwan, PT 01/24/2025 Travel 01/22/2025 Refill [facility] [address] [facility] [place] [address] Jovita Salas CNM Unwanted fertility 01/21/2025 Travel 01/11/2025 Refill [facility] [address] [facility] [place] [address] Destinee Britton MD Encounter for initial prescription of contraceptive pills 12/17/2024 Results Follow-Up [facility] [address] [facility] [place] [address] Ness Montze NP US LIVER 12/15/2024 8:15 AM EDT Ancillary Procedure [facility] [address] [facility] [address] [place] [address] Elevated liver enzymes 12/15/2024 Travel 12/06/2024 Results Follow-Up [facility] [address] [facility] [place] [address] Ness Montez NP XR ABDOMEN 2 VIEW, Comprehensive metabolic panel, CBC and differential, Additional followed-up results: 14 12/03/2024 2:00 PM EDT Ancillary Procedure [facility] [address] [facility] [address] [place] [address] Pain of upper abdomen 12/03/2024 1:30 PM EDT Office Visit [facility] [address] [facility] [place] [address] Ness Montez NP Nausea (Primary Dx); Pain of upper abdomen 12/03/2024 Travel 12/03/2024 Telephone [facility] [address] [facility] [place] [phone] Destinee Britton MD from Last 3 Months Immunizations Immunization Administration [...] Grandmother Tawnya Patterson Diabetes Sister [facility] Mental illness Sister 2 [facility] Relation Name Status Comments Father Alive Mother Kelsy Patterson Alive Other Paternal Grandmother Tawnya Patterson Sister 1 Alive Sister 2 [facility] Social History Tobacco Use Types Packs/Day Years [...] week 05/20/2024 How often do you attend evangelical or rastafarian serv ices? Never 05/20/2024 Do you belong to any clubs o r organizations such as evangelical groups, unions, fraternal or athletic groups, or [...] 0 05/20/2024 [facility] - Occupational Stress Questionnaire Answer Date [...] time in the past [address] [facility], were you homeless or living in a correction (including now)? No 05/20/2024 Comments No Sex [...] PM EST Office Visit [facility] RAPP [address] [place] [address] Jovita Salas, WILLOW [address] [place] [address] Health Maintenance Due Date Last [...] EXTRA LAVENDER-TOP TUBE (12/15/2024 8:36 AM EDT) Pathologist [facility] EXTRA LAVENDER-TOP TUBE [facility] COMMENT [facility] Comment: An extra specimen was received with no test requested. The specimen will be maintained in storage in case additional testing is needed. Please call the client service department for further assistance. 12/15/2024 8:36 AM EDT 12/15/2024 2:14 PM EDT Narrative Resulting Agency Comment Performing Organization Information Site ID: PB Name: [facility] Address: [address] [facility] [address] [place] [address] Director: Ashley Harris M.D. [facility] LAB BLOOD ORDERABLES Final Resu lt Performing Organization Address [facility] de Phone Number [facility]ST * Cytomegalovirus antibody, IgM (12/15/2024 8:36 AM EDT) Pathologist [facility] CYTOMEGALOVIRUS ANTIBODY (IGM) <30.00 AU/mL [facility]ST Comment: [...] Performing Organization Information Site ID: QPT Name: [employer] [facility] Address: [address] [facility], [address] [place] [phone] Director: Ramana Taylor MD [facility] LAB BLOOD ORDERABLES Final Resu lt Performing Organization Address City/[facility] Co de Phone Number [facility] * Hepatitis panel, acute (12/15/2024 8:36 AM EDT) HEPATITIS A IGM NON-REACTI VE NON-REACT AUGUSTINE [facility] Comment: For additional information, please refer to http://[employer].IMayGou/faq/LYI415 (This link is being provided for informational/ educational purposes only.) HEPATITIS B SURFACE ANTIGEN NON-REACTI VE NON-REACT AUGUSTINE [facility] Comment: For additional information, please refer to http://R[employer]/faq/FOY996 (This link is being provided for informational/ educational purposes only.) HEPATITIS B CORE ANTIBODY (IGM) NON-REACTI VE NON-REACT AUGUSTINE [facility] Comment: For additional information, please refer to http://[employer]/faq/MNO895 (This link is being provided for informational/ educational purposes only.) HEPATITIS C ANTIBODY NON-REACTI VE NON-REACT AUGUSTINE [facility] Comment: HCV antibody was non-reactive. There is no laboratory evidence of HCV infection. In most cases, no further action is required. However, if recent HCV exposure is suspected, a test for HCV RNA (test code 01009) is suggested. For additional information please refer to http://RiteTag/faq/CCQ92t2 (This link is being provided for informational/ educational purposes only.) Blood Venous blood specimen / Unknown 12/15/2024 8:36 AM EDT 12/15/2024 2:14 PM EDT Narrative Resulting Agency Comment Performing Organization Information Site ID: QPT Name: [employer] [facility] Address: [address] [place] [address], [address] [place] [phone] Director: Ramana Taylor MD Ness Montez NP [...] Performing Organization Information Site ID: QPT Name: [employer] [facility] Address: [address] [place] [address], [address] [place] [phone] Director: Ramana [facility] MD [facility] [facility] LAB BLOOD ORDERABLES Final Resu lt [facility] * Protime-INR (12/15/2024 8:36 AM EDT) INR 1.0 [facility] Comment: Reference Range 0.9-1.1 Moderate-intensity Warfarin Therapy 2.0-3.0 Higher-intensity Warfarin Therapy 3.0-4.0 PT 10.2 9.0 - 11.5 sec [facility]ST Comment: For additional information, please refer to http://education.IMayGou/faq/ZYM950 (This link is being provided for informational/ educational purposes only.) Blood Venous blood specimen / Unknown 12/15/2024 8:36 AM EDT 12/15/2024 2:14 PM EDT Narrative Resulting Agency Comment Performing Organization Information Site ID: QTW Name: [facility] Address: [address] [place] [phone] Director: Lashawn Hoyt [facility] [employer] LAB BLOOD ORDERABLES Final Resu lt [facility] * BAR (12/15/2024 8:36 AM EDT) [...] AC-0: Negative International Consensus on BAR Patterns (https://doi.org/10.1515/fnjq-6833-2827) For additional information, please refer to http://education.[employer]/faq/ZOQ430 (This link is being provided for informational/ educational purposes only.) Blood Venous blood specimen / Unknown 12/15/2024 8:36 AM EDT 12/15/2024 2:14 PM EDT Narrative Resulting Agency Comment Performing Organization Information Site ID: QPT Name: [employer] [facility] Address: [address] [place] [address], [address] [place] [phone] Director: Ramana Taylor MD [facility] [employer] LAB BLOOD ORDERABLES Final Resu lt Performing Organization Address [facility]/ZIP Co de Phone Number [facility] * (ABNORMAL) ALT (12/15/2024 8:36 AM EDT) ALT 33(H) 6 - 29 U/L [facility] Blood Venous blood specimen / Unknown 12/15/2024 8:36 AM EDT 12/15/2024 2:14 PM EDT Narrative Resulting Agency Comment Performing Organization Information Site ID: QTW Name: [facility] Address: [address] [place] [phone] Director: Lashawn Hoyt [facility] [employer] LAB BLOOD ORDERABLES Final Resu lt Performing Organization Address City/[facility]/ZIP Co de Phone Number QUEST * AST (12/15/2024 8:36 AM EDT) AST 17 10 - 30 U/L [facility] Blood Venous blood specimen / Unknown 12/15/2024 8:36 AM EDT 12/15/2024 2:14 PM EDT Narrative Resulting Agency Comment Performing Organization Information Site ID: QTW Name: [facility] Address: [address] [place] [phone] Director: Lashawn Hoyt us [facility] [employer] LAB BLOOD ORDERABLES Final Resu lt Performing Organization Address City/[facility]/ZIP Co de Phone Number [facility] * Ferritin (12/15/2024 8:36 AM EDT) FERRITIN 28 16 - 154 ng/mL [facility] Blood Venous blood specimen / Unknown 12/15/2024 8:36 AM EDT 12/15/2024 2:14 PM EDT Narrative Resulting Agency Comment Performing Organization Information Site ID: QPT Name: [facility] Address: [address] [facility], [address] [place] [phone] Director: Ramana Taylor MD us Ness Majors [employer] LAB BLOOD ORDERABLES Final Resu lt Performing Organization Address [facility] Co de Phone Number [facility]ST * US [...] II, MD, PHD at 17-Dec-2024 10:25:11 AM [facility] Procedure Note Siri Avery MD - [...] signed by SIRI AVERY II, MD, PHD [id number] 10:25:11 AM [facility] us Ness Majorcuauhtemoc [employer] IMG US PROCEDURES Final Result * XR [...] calcification. IMPRESSION: Negative abdominal series Ness Montez [employer] IMG XR PROCEDURES Final Result * NOTE (12/03/2024 2:26 PM EDT) NOTE [facility] Comment: This urine was analyzed for the presence of WBC, RBC, bacteria, casts, and other formed elements. Only those elements seen were reported. 12/03/2024 2:26 PM EDT 12/03/2024 2:27 PM EDT Narrative Resulting Agency Comment Performing Organization Information Site ID: QPT Name: [employer] [facility] Address: [address] [place] [address], [address] [place] [phone] Director: Ramana Taylor MD Ness Montez [employer] [facility]ST Final Result [facility] * (ABNORMAL) Urinalysis [...] Information Site ID: QPT Name: [facility] Address: [address] [place] [address], [address] [place] [phone] Director: Ramana Taylor MD Ness Montez [employer] LAB URINE ORDERABLES Final Resu lt Performing Organization Address [facility] Co de Phone Number QUEST * Urine culture (clean catch) (12/03/2024 2:26 PM EDT) [facility] MICRO NUMBER [id number] [facility] SPECIMEN QUALITY Adequate QUEST SOURCE: (QUEST) URINE [facility] STATUS FINAL [facility] RESULT SEE NOTE [facility]ST Comment: No Growth Urine Urine specimen obtained by clean catch procedure / Unknown 12/03/2024 2:26 PM EDT 12/03/2024 2:27 PM EDT Narrative Resulting Agency Comment Performing Organization Information Site ID: QPT Name: [facility] Address: [address] [place] [address], [address] [place] [phone] Director: Ramana Taylor MD Ness Montez [employer] LAB MICROBIOLOGY - GENERAL ORDE RABLES Final Result Performing Organization Address [facility] de Phone Number [facility] * CBC and differential (12/03/2024 2:25 PM EDT) [facility] WHITE BLOOD CELL COUNT 6.8 3.8 - [...] Performing Organization Information Site ID: QPT Name: [employer] [facility] Address: [address] [place] [address], [address] [place] [phone] Director: Ramana Taylor MD Ness Montez [employer] LAB BLOOD ORDERABLES Final Resu lt [facility]ST * (ABNORMAL) Comprehensive metabolic panel (12/03/2024 2:25 PM EDT) Pathologist [facility] Glucose 76 65 - 99 mg/dL [facility]ST [...] Performing Organization Information Site ID: QPT Name: [facility] Address: [address] [facility], [address] [place] [address] Director: Ramana Taylor MD us Ness Montez [employer] LAB BLOOD ORDERABLES Final Resu lt [facility]ST * POCT , urine (12/03/2024 2:21 PM EDT) Preg Test, Ur Negative Negative Urine 12/03/2024 2:21 PM EDT us Ness Montez [employer] POINT OF CARE TEST ENTER/EDIT O RDERABLES [...] - Positive Urine 12/03/2024 2:21 PM EDT us Ness Montez [employer] POINT OF CARE TEST ENTER/EDIT O RDERABLES Final Result from Last 3 Months Insurance BCBS Care Teams Printing Press Operator Apprentice Relationship Specialty Start Date End Date Destinee Britton MD [address] [place] [address] PCP - General Family Medicine 11/12/22
--- OUTSIDE RECORDS SUMMARY | 2025-03-03 09:17 | XMS_ITS | CCD ---
Author Organization [facility] Care Team Providers Care Delphi Programmer Name Role Phone Radha Aguilera Attending Provider [...] Care Unavailable RENETTA, SUYAPA Consulting Unavailable Becky Romeo Unavailable Lexy Kraft Unavailable Joselin Wilkins Unavailable NO FAMILY, PHYSICIAN Primary Care Provider Unava ilable DO Becky Romeo Attending Provider [phone] NO FAMILY, PHYSICIAN Primary Care Provider Unava ilable LOU Kraft Attending Provider Becky Romeo Admitting Unavailable Becky Romeo Attending Unavailable NO FAMILY, PHYSICIAN Primary Care Unavailable Becky Romeo Admitting Unavailable Becky Romeo Attending Unavailable NO FAMILY, PHYSICIAN Primary Care [...] Attending Unavailable BRANIECKI, BECKY A Referring Unavailable BRANNABORCKI, BECKY A Primary Care Unavailable ROSANACHAD SCHAEFER Attending Unavailable BRANNABORCKI, BECKY A Referring Unavailable BRANNABORCKI, BECKY A Primary Care Unavailable ROSANA, CHAD Giordano Attending Unavailable BRANNABORCKI, BECKY A Referring Unavailable BRANNABORCKI, BECKY A Primary Care Unavailable ROSANA, CHAD Giordano Attending Unavailable KINZANABORCKI, BECKY A Referring Unavailable JERMANCKI, BECKY A Primary Care Unavailable Gicelena LANDIS, Ty Wallace Attending Unavailable Giedraitis , Ty Wallace Attending Unavailable Giedraitis , Andcirilo Wallace Attending Unavailable Giedraitis , Andcirilo Wallace Attending Unavailable Gieditis , Ty Wallace Attending Unavailable Ousmane BOWEN, Becky Saldana Referring Un available Edwina LANDIS, Adam Aguilar Attending Unavail able Unavailable Unavailable Unavailable Medications Current Medications Medication Drug Class(es) Dates Sig (Normalized) Sig (Original) baclofen 10 mg oral tablet (9 sources) gamma-Aminobutyric Acid-ergic Agonist Start: 01-11-2025 take [...] Active cetirizine hydrochloride 10 mg oral tablet (20 sources) Histamine-1 Receptor Antagonist take 1 tablet [...] tablet by mouth once daily Norg[employer]-Eth Estradiol (Kgh-Ok-Bhvxhc) 0.18/0.215/0.25 MG-25 MCG tablet Indications: Unwanted fertility [...] 03/11/2024 Active etodolac 400 mg oral tablet (8 sources) Nonsteroidal Anti-inflammatory Drug Start: 01-31-2025 take [...] 04/22/2024 Active ibuprofen 600 mg oral tablet (20 sources) Nonsteroidal Anti-inflammatory Drug ibuprofen 600 MG [...] 02/14/2025 Discontinued methocarbamol 500 mg oral tablet (20 sources) Muscle Relaxant Start: 08-05-2024 End: 08-15-2024 [...] Active ondansetron 4 mg disintegrating oral tablet (19 sources) Serotonin-3 Receptor Antagonist Start: 11-28-2024 take [...] Drug Class(es) Dates Sig (Normalized) Sig (Original) [id number] 200 actuat albuterol 0.09 mg/actuat metered dose [...] 11, 2023 2:33pm take 1 capsule by [facility] every eight hours Dicyclomine HCl 10 [...] Interpretation and review of laboratory results Normal [facility] Preg Test, Ur Negative Negative [facility] Urinalysis macro (dipstick) panel (U)on 12-03-2024 Bilirubin, UA 3+ Negative - 4(70) +++ mg/dL [facility] Blood, UA Negative Negative - 50 Aidan/mcL [facility] Clarity, UA Clear [facility] Color, UA Yellow [facility] Glucose, UA Negative Negative - 2000(110) ++++ mg/dL [facility] Interpretation and review of laboratory results Abnormal [facility] Ketones, UA Positive Negative - 160(16) ++++ mg/dL [facility] Leukocytes, UA 1+ Negative - 500+++ Samira/mcL [facility] Nitrite, UA Negative Negative - Positive [facility] pH, UA 6 5 - 9 [facility] Protein, UA 1+ Negative - 2000(20) ++++ mg/dL [facility] Spec Grav, UA 1.02 1 - 1.03 [facility] Urobilinogen, UA 0.2 0.2 - 12 mg/dL [facility] CT LUMBAR SPINE WO CONTRASTo n 07-20-2024 [...] Octavio Lowe MD 07/20/24 Final result Normal [facility] CT Lumbar spine WO contrasto n 07-20-2024 [...] facets throughout with no significant spinal stenosis. [facility] [[email or web address] RIS CONSOLIDATED EXAMINATION: CT OF THE LUMBAR [...] TISSUES/RETROPERITONE UM: No paraspinal mass is seen. [facility] [[email or web address] RIS Octavio Rosen MD - 07/20/2024 EXAMINATION: CT OF THE [...] with no significant spinal stenosis. [facility] Radiology Study observation (narrative) [facility] CT Lumbar spine WO contrastO rdered By: Octavio Lowe on 07-20-2024 [facility] Work Phone: HCG, ,Urineon 07-20 Beta HCG ( test) Ql (U) Negative Normal NEG [facility] Comment on above: Result Comment: Spec imens with hCG levels near the threshold of the test (25 mIU/mL) may give a negative or indeterminate result. In such cases, another test should be performed with a new specimen in 48-72 hours. If early is suspected clinically in this setting, correlation with quantitative serum b-hCG level is suggested. [facility] has confirmed the use of plasma for this test. This has not been cleared or approved by the U.S. Food and Drug Administration. The FDA has determined that such clearance is not necessary. Performed By: #### U HCG #### [facility] [address] [place] [address] Tire Repair Mechanic: Roge Rios MD Microscopic Urinalysison Amorphous sediment LM Ql (Urine sed) 1+ Abnormal None [facility] Epithelial cells LM.HPF (Urine sed) [#/Area] 2 TO 5 [facility] Interpretation and review of laboratory results Abnormal [facility] RBC LM.HPF (Urine sed) [#/Area] 0 TO 2 [facility] Renal Epithelial, UA 2 TO 5 0 /HPF [facility] WBC LM.HPF (Urine sed) [#/Area] 5 TO 10 [facility] , Urineon HCG ( test) Ql (U) Negative NEGATIVE [facility] Comment on above: Specimens with hCG l evels near the threshold of the test (25 mIU/mL) may give a negative or indeterminate result. In such cases, another test should be performed with a new specimen in 48-72 hours. If early is suspected clinically in this setting, correlation with quantitative serum b-hCG level is suggested. [employer] has confirmed the use of plasma for this test. This has not been cleared or approved by the U.S. Food and Drug Administration. The FDA has determined that such clearance is not necessary. [facility] Urinalysison 07-20-2024 Bilirubin Ql (U) Negative NEGATIVE [facility] Clarity (U) SLIGHTLY CLOUDY Abnormal Clear [facility] Color (U) Yellow Yellow [facility] Glucose Test strip (U) [Mass/Vol] Negative NEGATIVE mg/dL [facility] Hemoglobin Auto test strip Ql (U) Negative NEGATIVE [facility] Interpretation and review of laboratory results Abnormal [facility] Ketones (U) [Mass/Vol] Negative NEGAT AUGUSTINE mg/dL [facility] Leukocyte esterase Test strip Ql (U) SMALL Abnormal NEGATIVE [facility] Nitrite Ql (U) Negative NEGATIVE [facility] pH (U) 8.0 [pH] 5.0 - 9.0 [facility] Protein (U) [Mass/Vol] Negative NEGAT AUGUSTINE mg/dL [facility] Specific gravity (U) [Rel density] 1.020 1.010 - 1.020 [facility] Urobilinogen Qn (U) Normal 0.0 - 1. 0 EU/dL [facility] Urinalysis, Routineon 2024 Bilirubin, SemiQt,Ur Negative Normal NEG [facility] [place] [facility] Comment on above: Performed By: #### U A, UMICAO #### [facility] [address] [place] [address] [address] [place], [place] [id number] [employer] Rep[employer] Mechanic: Roge Rios MD Blood, Urine Negative Normal [facility] Comment on above: Performed By: #### U A, UMICAO #### [facility] [address] [place], [place] [id number] [employer] Rep[employer] Mechanic: Roge Rios MD Clarity (U) SLIGHTLY CLOUDY Abnormal CLEAR [facility] Comment on above: Performed By: #### U A, UMICAO #### [facility] [address] [place] [address] [place] [place], [place] [id number] [employer] Rep[employer] Mechanic: Roge Rios MD Color (U) Yellow Normal YEL [facility] Comment on above: Performed By: #### U A, UMICAO #### [facility] [address] [place] [address] [address] [place], [place] [id number] [employer] Rep[employer] Mechanic: Roge Rios MD Glucose Ql (U) Negative Normal NEG [facility] Comment on above: Performed By: #### U A, UMICAO #### [facility] [address] [place] [address] [place] [place], [place] [address] [employer] Rep[employer] Mechanic: Roge Rios MD Ketones Ql (U) Negative Normal NEG [facility] Comment on above: Performed By: #### U A, UMICAO #### [facility] [address] [place] [address] Dr[address] [place], [place] [id number] [employer] Rep[employer] Mechanic: Roge Rios MD Leukocyte esterase Test strip Ql (U) SMALL Abnormal NEG [facility] Comment on above: Performed By: #### U A, UMICAO #### [facility] [address] [place], [place] [id number] [employer] Rep[employer] Mechanic: Roge Rios MD Nitrite,Ur Negative Normal [facility] Comment on above: Performed By: #### U A, UMICAO #### [facility] [address] [place] [address] Dr. [place], [place] [id number] [employer] Rep[employer] Mechanic: Roge Rios MD PH,Ur 8.0 Normal 5.0-9.0 [facility] Comment on above: Performed By: #### U A, UMICAO #### [address] [place] [address] Tire Repair Mechanic: Roge Rios MD Protein Ql (U) Negative Normal NEG [facility] Comment on above: Performed By: #### U A, UMICAO #### [address] [place], [facility] [employer] Rep[employer] Mechanic: Roge Rios MD Spec. [place],Ur 1.020 Normal 1.010-1.[address] [facility] Comment on above: Performed By: #### U A, UMICAO #### [facility] [address] [place] [address] Dr[place], [place] [address] T[employer] Repair Mechanic: Roge Rios MD Urobilinogen,Ur Normal Normal 0.0-1.0 [facility] Comment on above: Performed By: #### U A, UMICAO #### [address] [place], [place] [address] [employer] Repair Mechanic: Roge Rios MD Urinalysis,Microon 5 Amorphous sediment LM Ql (Urine sed) 1+ Abnormal NONE [facility] Comment on above: Performed By: #### U A, UMICAO #### [address] [place], [place] [id number] [employer] Rep[employer] Mechanic: Roge Rios MD Epithelial cells LM Ql (Urine sed) 2 TO 5 Normal 0-25 [facility] Comment on above: Performed By: #### U A, UMICAO #### [address] [place], [facility] [employer] Mechanic: Roge Rios MD Epithelial, Renal 2 TO 5 Normal [address] [facility] Comment on above: Performed By: #### U A, UMICAO #### [facility] [address] [place] [address] Tire Repair Mechanic: Roge Rios MD Urine RBC's 0 TO 2 Normal 0-2 [facility] Comment on above: Performed By: #### U A, UMICAO #### [facility] [address] [place] [address] Tire Repair Mechanic: Roge Rios MD Urine WBC's 5 TO 10 Normal 0-5 [facility] Comment on above: Performed By: #### U A, UMICAO #### [facility] [address] [place] [address] [employer] Repair Mechanic: Roge Rios MD COVID + FLU Quick Testingon 07-09-2023 SARS-CoV-2 (COVID-19) RNA THA+probe Ql (Unsp spec) Negative [facility] [employer] Other COVID + FLU Quick Testing Negative [facility] [employer] Other XR wrist LT min 3V*on 2022 XR wrist LT min 3V* [facility] [employer] Other XR wrist LT min 3V* [facility] [employer] Other XR wrist LT min 3V* [address] [facility] [employer] Other XR wrist LT min 3V* [place] [address] [facility] [employer] Other XR wrist LT min 3V* XRay Report [facility] [employer] Other XR wrist LT min 3V* Signed [employer] Other XR wrist LT min 3V* Patient: Edwige Patterson MR#: [id number] [employer] Other XR wrist LT min 3V* [id number] [employer] Other XR wrist LT min 3V* : 2000 Acct:[id number] [employer] Other XR wrist LT min 3V* Age/Sex: 22 / F ADM Date: 12/09/22 [employer] Other XR wrist LT min 3V* Loc: XDUCLY Room: Type: REG CLI [employer] Other XR wrist LT min 3V* Attending Dr: Lexy BLAKE [employer] Other XR wrist LT min 3V* Copies to: LOU Hernandez [employer] Other XR wrist LT min 3V* Ordering Provider: LOU Hernandez [employer] Other XR wrist LT min 3V* Date of Service: 12/09/22 [employer] Other XR wrist LT min 3V* XR/XR wrist LT min 3V*: Left wrist pain [employer] Other XR wrist LT min 3V* ([id number]) XR/XR hand LT min 3V*: Left wrist pain [employer] Other XR wrist LT min 3V* 3 views LEFT hand plain film [employer] Other XR wrist LT min 3V* COMPARISON: None [employer] Other XR wrist LT min 3V* HISTORY: LEFT hand injury. Pain involving the distal middle finger. Dorsal wrist pain [employer] Other XR wrist LT min 3V* ACUTE FINDINGS: None [employer] Other XR wrist LT min 3V* DEGENERATIVE CHANGE: Unremarkable [employer] Other XR wrist LT min 3V* SOFT TISSUE FINDINGS : Unremarkable [employer] Other XR wrist LT min 3V* JOINT EFFUSION: None [employer] Other XR wrist LT min 3V* POSTOP CHANGES: None [employer] Other XR wrist LT min 3V* BONY MINERALIZATION: Adequate [employer] Other XR wrist LT min 3V* XR/XR hand LT min 3V* [employer] Other XR wrist LT min 3V* IMPRESSION: No acute findings [employer] Other XR wrist LT min 3V* 4 views LEFT wrist plain film [employer] Other XR wrist LT min 3V* BONE MINERALIZATION: Adequate [employer] Other XR wrist LT min 3V* IMPRESSION: No acute bony findings. [employer] Other XR wrist LT min 3V* Impression dictated by: Misbah Mast M.D.12/09/2022 11:59 AM [employer] Other XR wrist LT min 3V* Dictation Location: [place] [address] [employer] Other XR wrist LT min 3V* Transcribed By: DOMINIQUE 12/09/22 1159 [employer] Other XR wrist LT min 3V* Dictated By: Misbah Mast DO 12/09/22 1158 [employer] Other XR wrist LT min 3V* Signed By: [employer] Other XR wrist LT min 3V* 12/09/22 1159 No rt [employer] Other XR wrist LT min 3V* [facility] [place] [address] [place] [address] XRay Report Signed Patient: Edwige Patterson MR#: [id number] : 2000 Acct:[id number] Age/Sex: 22 / F ADM Date: 12/09/22 Loc: XDUCLY Room: Type: [facility] Attending Dr: Lexy BLAKE Copies to: LOU Hernandez Ordering Provider: LOU Hernandez Date of Service: 12/09/22 XR/XR wrist LT min 3V*: Left wrist pain ([id number]) XR/XR hand LT min 3V*: Left wrist [...] Misbah Mast M.D.12/09/2022 11:59 AM Dictation Location: [place] [address] Transcribed By: [facility] 12/09/22 1159 Dictated By: Misbah Mast DO 12/09/22 1158 Signed By: 12/09/22 1159 Normal [facility] A1C with Estimated Average G jaredn 08-14-2022 HbA1c (Bld) [Mass fraction] 5.200 % Normal 4.3-5.6 % [facility] [employer] Other HbA1c (Bld) [Mass fraction] 103 mg/dL [facility] [employer] Other Glucose [Mass/Vol] 103 mg/dL Normal [facility] Comment on above: Result Comment: PERF ORMED BY: [address] [address] PATHOLOGIST [employer]ELOPER KULWANT GOMEZ M.D. Performed By: #### C BC, TSH3, CMP, A1C WTH eA, LIPID #### [address] [address] [place] HbA1c (Bld) [Mass fraction] 5.2 % Normal 4.3-5.6 [facility] Comment on above: Result Comment: Incr eased risk for diabetes: 5.7 - 6.4 diabetes: >6.4 glycemic control for adults with diabetes: <7.0 Performed By: #### C BC, TSH3, CMP, A1C WTH eA, LIPID #### [facility] [address] [place] [id number] [place] Albumin [Mass/volume] in Ser um or PlasmaOrdered By: Becky Romeo on 08-14-2022 Albumin [Mass/Vol] 3.9 g/dL 3.2-5.5 [facility] Basophils Auto (Bld) [#/Vol] Ordered By: Becky Romeo on 08-14-2022 Basophils (Bld) [#/Vol] 0.0 10*3/uL 0.0-0.2 [facility] Basophils/100 WBC Auto (Bld) Ordered By: Becky Romeo on 08-14-2022 Basophils/100 WBC (Bld) 0.6 % . F [facility] Cholesterol [Mass/volume] in Serum or PlasmaOrdered By: Becky Romeo on 08-14-2022 Cholesterol [Mass/Vol] 195 mg/dL Normal 140-2 00 mg/dL [facility] Comment on above: Chol less than 200 m g/dl low riskChol 201-239 mg/dl borderline riskChol 240 mg/dl and greater high risk Cholesterol in LDL Calc [Mas s/Vol]Ordered By: Becky Romeo on 08-14-2022 Cholesterol in LDL [Mass/Vol] 146 mg/dL 0-100 [facility] Comment on above: LDL ATP III CLASSIFI CATIONLDL less than 100 mg/dL OptimalLDL 100-129 mg/dL Near or above optimalLDL 130-159 mg/dL Borderline highLDL 160-189 mg/dL HighLDL greater than 189 mg/dL Very high Cholesterol in VLDL Calc [Ma ss/Vol]Ordered By: Becky Romeo on 08-14-2022 Cholesterol in VLDL [Mass/Vol] 16 mg/dL [facility] Complete Blood Count Auto Di ffon 08-14-2022 Basophils (Bld) [#/Vol] 0.458430579 10*3/uL Normal 0.0-0.2 10*3/uL [employer] Other Basophils/100 WBC (Bld) 0.600 % . % N [employer] Other Eosinophils (Bld) [#/Vol] 0.355075866 10*3/uL Normal 0.0-0.45 10*3/uL [employer] Other Eosinophils/100 WBC (Bld) 2.300 % . % [employer] Other Erythrocyte distribution width (RBC) [Ratio] 12.400 % Normal 11.9-15.3 % [employer] Other Hematocrit (Bld) [Volume fraction] 39.700 % Normal 34.0-46.4 % [employer] Other Hemoglobin (Bld) [Mass/Vol] 13.770008 g/dL Normal 11.8-15.4 g/dL [employer] Other Lymphocytes (Bld) [#/Vol] 1.597046968 10*3/uL Normal 1.00-4.8 10*3/uL [employer] Other Lymphocytes/100 WBC (Bld) 22.500 % . % [employer] Other MCH (RBC) [Entitic mass] 30.2000 pg Normal 24.7-34.3 pg [employer] Other MCV (RBC) [Entitic vol] 90.5000 fL Normal 80-100 fL N [employer] Other Monocytes (Bld) [#/Vol] 0.199821257 10*3/uL Normal 0.0-0.8 10*3/uL [employer] Other Monocytes/100 WBC (Bld) 6.800 % . % N [employer] Other Neutrophils (Bld) [#/Vol] 3.391280098 10*3/uL Normal 1.8-7.7 10*3/uL [employer] Other Neutrophils/100 WBC (Bld) 67.800 % . % [employer] Other Platelet mean volume (Bld) [Entitic vol] 9.0000 fL Normal 6.3-10.7 fL [employer] Other WBC (Bld) [#/Vol] 5.846215792 10*3/uL Normal 3.8 -11.6 10*3/uL [employer] Other Complete Blood Count Auto Diff 5.6 10*3/uL Normal 3.8-11.6 10*3/uL [employer] Other Complete Blood Count Auto Diff 33.4 g/dL Normal 32.0-35.0 g/dL [employer] Other Complete Blood Count Auto Diff 0.3 /100{WBC} Normal 0-0.5 /100{WBC} [employer] Other Basophils (Bld) [#/Vol] 0.0 10*3/uL Normal 0.0-0.2 [facility] Comment on above: Result Comment: PERF ORMED BY: [facility] [address] [place] [address] PATHOLOGIST [employer] DEVELOPER KULWANT GOMEZ M.D. Performed By: #### C BC, TSH3, CMP, A1C [facility] eA, LIPID #### [facility] [address] [place] [address] [place] Basophils/100 WBC (Bld) 0.6 % Normal . F [facility] Comment on above: Performed By: #### C BC, TSH3, CMP, A1C WTH eA, LIPID #### [facility] [address] [place] [id number] [place] Eosinophils (Bld) [#/Vol] 0.1 10*3/uL Normal 0.0-0.45 [facility] Comment on above: Performed By: #### C BC, TSH3, CMP, A1C WTH eA, LIPID #### [facility] [address] [place] [address] Eosinophils/100 WBC (Bld) 2.3 % Normal . [facility] Comment on above: Performed By: #### C BC, TSH3, CMP, A1C WTH eA, LIPID #### [address] Erythrocyte distribution width (RBC) [Ratio] 12.4 % Normal 11.9-15.3 [facility] Comment on above: Performed By: #### C BC, TSH3, CMP, A1C WTH eA, LIPID #### [address] Hematocrit (Bld) [Volume fraction] 39.7 % Normal 34.0-46.4 [facility] Comment on above: Performed By: #### C BC, TSH3, CMP, A1C WTH eA, LIPID #### [address] Hemoglobin (Bld) [Mass/Vol] 13.2 g/dL Normal 11.8-15.4 [facility] Comment on above: Performed By: #### C BC, TSH3, CMP, A1C WTH eA, LIPID #### [address] Lymphocytes (Bld) [#/Vol] 1.3 10*3/uL Normal 1.00-4.8 [facility] Comment on above: Performed By: #### C BC, TSH3, CMP, A1C WTH eA, LIPID #### [place] [address] [place] Lymphocytes/100 WBC (Bld) 22.5 % Normal . [facility] Comment on above: Performed By: #### C BC, TSH3, CMP, A1C WTH eA, LIPID #### [address] MCH (RBC) [Entitic mass] 30.2 pg Normal 24.7-34.3 [facility] Comment on above: Performed By: #### C BC, TSH3, CMP, A1C WTH eA, LIPID #### [facility] [address] [place] [address] [place] MCV (RBC) [Entitic vol] 90.5 fL Normal 80-100 F [facility] Comment on above: Performed By: #### C BC, TSH3, CMP, A1C WTH eA, LIPID #### [facility] [address] [place] [address] [place] Mean Corpuscular HGB Conc 33.4 g/dL Normal 32.0-35.0 [facility] Comment on above: Performed By: #### C BC, TSH3, CMP, A1C WTH eA, LIPID #### [facility] [address] [place] [address] Monocytes (Bld) [#/Vol] 0.4 10*3/uL Normal 0.0-0.8 [facility] Comment on above: Performed By: #### C BC, TSH3, CMP, A1C WTH eA, LIPID #### [facility] [address] [place] [address] [place] Monocytes/100 WBC (Bld) 6.8 % Normal . F [facility] Comment on above: Performed By: #### C BC, TSH3, CMP, A1C WTH eA, LIPID #### [facility] [address] [place] [address] [place] Neutrophils (Bld) [#/Vol] 3.8 10*3/uL Normal 1.8-7.7 [facility] Comment on above: Performed By: #### C BC, TSH3, CMP, A1C WTH eA, LIPID #### [facility] [address] [place] [address] [place] Neutrophils/100 WBC (Bld) 67.8 % Normal . [facility] Comment on above: Performed By: #### C BC, TSH3, CMP, A1C WTH eA, LIPID #### [facility] [address] [place] [address] [place] NRBC% 0.3 /100{WBC} Normal 0-0.5 [facility] Comment on above: Performed By: #### C BC, TSH3, CMP, A1C WTH eA, LIPID #### [facility] [address] Platelet mean volume (Bld) [Entitic vol] 9.0 fL Normal 6.3-10.7 [facility] Comment on above: Performed By: #### C BC, TSH3, CMP, A1C WTH eA, LIPID #### [facility] [address] Platelets (Bld) [#/Vol] 232 10*3/uL Normal 150-450 [facility] Comment on above: Performed By: #### C BC, TSH3, CMP, A1C WTH eA, LIPID #### [facility] [address] RBC (Bld) [#/Vol] 4.38 10*6/uL Normal 3.60-5.00 [facility] Comment on above: Performed By: #### C BC, TSH3, CMP, A1C WTH eA, LIPID #### [facility] [address] WBC (Bld) [#/Vol] 5.6 10*3/uL Normal 3.8-11.6 [facility] Comment on above: Performed By: #### C BC, TSH3, CMP, A1C WTH eA, LIPID #### [facility] [address] Comprehensive Metabolic Pane amandeep 08-14-2022 Albumin [Mass/Vol] 3.912735 g/dL Normal 3.2-5.5 g/dL N [facility] [employer] Other Bilirubin [Mass/Vol] 0.2387161 mg/dL Normal 0.3- 1.2 mg/dL [employer] Other Calcium [Mass/Vol] 9.4040060 mg/dL Normal 8.2-10 .2 mg/dL [employer] Other CO2 [Moles/Vol] 23.21839922 mmol/L Normal 22.0-3 0.0 mmol/L [employer] Other Creatinine [Mass/Vol] 0.28065375 mg/dL Normal 0. 44-1.03 mg/dL Helen [employer] Other Potassium [Moles/Vol] 3.12048744 mmol/L Normal 3 .5-5.1 mmol/L Helen [employer] Other Protein [Mass/Vol] 6.695921 g/dL Normal 6.1-7.9 g/dL [facility] [employer] Other Comprehensive Metabolic Panel > 60 [facility] [employer] Other Comprehensive Metabolic Panel 2.7 g/dL [facility] [employer] Other Albumin [Mass/Vol] 3.9 g/dL Normal 3.2-5.5 [facility] Comment on above: Performed By: #### C BC, TSH3, CMP, A1C WTH eA, LIPID #### [facility] [address] Albumin/Globulin [Mass ratio] 1.4 {ratio} [facility] Comment on above: Performed By: #### C BC, TSH3, CMP, A1C WTH eA, LIPID #### [facility] [address] [place] [address] [place] ALP [Catalytic activity/Vol] 69 U/L Normal 32-92 [facility] Comment on above: Performed By: #### C BC, TSH3, CMP, A1C WTH eA, LIPID #### [facility] [address] [place] [address] [place] ALT [Catalytic activity/Vol] 34 U/L Normal 10-60 [facility] [employer] Other Comment on above: Performed By: #### C BC, TSH3, CMP, A1C WTH eA, LIPID #### [facility] [address] [place] [address] [place] Anion gap [Moles/Vol] 9.7 mmol/L Normal 6.0-15.0 [facility] Comment on above: Performed By: #### C BC, TSH3, CMP, A1C WTH eA, LIPID #### [facility] [address] [place] [address] [place] AST [Catalytic activity/Vol] 30 U/L Normal 10-42 [facility] Comment on above: Performed By: #### C BC, TSH3, CMP, A1C WTH eA, LIPID #### [facility] [address] [place] [address] [place] Bilirubin [Mass/Vol] 0.7 mg/dL Normal 0.3-1.2 [facility] Comment on above: Performed By: #### C BC, TSH3, CMP, A1C WTH eA, LIPID #### [facility] [address] Calcium [Mass/Vol] 9.2 mg/dL Normal 8.2-10.2 [facility] Comment on above: Performed By: #### C BC, TSH3, CMP, A1C WTH eA, LIPID #### [facility] [address] Chloride [Moles/Vol] 108 mmol/L Normal 95-114 [facility] Comment on above: Performed By: #### C BC, TSH3, CMP, A1C WTH eA, LIPID #### [facility] [address] [place] [address] [place] CO2 [Moles/Vol] 23.1 mmol/L Normal 22.0-30.0 [facility] Comment on above: Performed By: #### C BC, TSH3, CMP, A1C WTH eA, LIPID #### [facility] [address] [place] [address] [place] Creatinine [Mass/Vol] 0.75 mg/dL Normal 0.44-1.03 [facility] Comment on above: Performed By: #### C BC, TSH3, CMP, A1C WTH eA, LIPID #### [facility] [address] [place] [address] [place] Estimated GFR ( [place] > 60 Normal [facility] Comment on above: Result Comment: GFR estimated reference range: According to KDOQI guidelines, <60 ml/min/1.73m2 is sufficient to diagnose a patient with chronic kidney disease. Performed By: #### C BC, TSH3, CMP, A1C WTH eA, LIPID #### [facility] [address] [place] [address] [place] Estimated GFR (Non- Am > 60 Normal [facility] Comment on above: Performed By: #### C BC, TSH3, CMP, A1C WTH eA, LIPID #### [facility] [address] Globulin (S) [Mass/Vol] 2.7 g/dL Normal [facility] Comment on above: Performed By: #### C BC, TSH3, CMP, A1C WTH eA, LIPID #### [facility] [address] Glucose [Mass/Vol] 87 mg/dL Normal 70-100 [facility] Comment on above: Result Comment: [facility] Glucose Reference Range is dependent on time and content of last meal. Glucose of more than 200 mg/dL in a nonstressed, ambulatory subject supports the diagnosis of Diabetes Mellitus. ADA recommended reference range Performed By: #### C BC, TSH3, CMP, A1C WTH eA, LIPID #### [facility] [address] Potassium [Moles/Vol] 3.8 mmol/L Normal 3.5-5.1 [facility] Comment on above: Performed By: #### C BC, TSH3, CMP, A1C WTH eA, LIPID #### [facility] [address] [place] [address] [place] Protein [Mass/Vol] 6.6 g/dL Normal 6.1-7.9 [facility] Comment on above: Performed By: #### C BC, TSH3, CMP, A1C WTH eA, LIPID #### [facility] [address] Sodium [Moles/Vol] 137 mmol/L Normal 136-146 [facility] Comment on above: Performed By: #### C BC, TSH3, CMP, A1C WTH eA, LIPID #### [facility] [address] [place] [address] [place] Urea nitrogen [Mass/Vol] 5 mg/dL Low 9-23 [facility] Comment on above: Performed By: #### C BC, TSH3, CMP, A1C WTH eA, LIPID #### [facility] [address] Creatinine and Glomerular fi ltration rate.predicted panel (S/P/Bld)Ordered By: Becky Romeo on 08-14-2022 Creatinine [Mass/Vol] 0.75 mg/dL 0.44-1.03 [facility] Eosinophils Auto (Bld) [#/Vo l]Ordered By: Becky Romeo on 08-14-2022 Eosinophils (Bld) [#/Vol] 0.1 10*3/uL 0.0-0.45 [facility] Eosinophils/100 WBC Auto (Bl d)Ordered By: Becky Romeo on 08-14-2022 Eosinophils/100 WBC (Bld) 2.3 % . [facility] Erythrocyte distribution wid th Auto (RBC) [Ratio]Ordered By: Becky Romeo on 08-14-2022 Erythrocyte distribution width (RBC) [Ratio] 12.4 % 11.9-15.3 [facility] Erythrocytes [#/volume] in B lood by Automated countOrdered By: Becky Romeo on 08-14-2022 RBC (Bld) [#/Vol] 4.38 10*6/uL Normal 3.60-5.00 [facility] Estimated glomerular filtrat ion rate (GFR) non- AmericanOrdered By: Becky Romeo on 08-14-2022 GFR/1.73 sq M.predicted among non-blacks MDRD (S/P/Bld) [Vol rate/Area] > 60 mL/Min [facility] Globulin Calc (S) [Mass/Vol] Ordered By: Becky Romeo on 08-14-2022 Globulin (S) [Mass/Vol] 2.7 g/dL F [facility] Hematocrit Auto (Bld) [Volum e fraction]Ordered By: Becky Romeo on 08-14-2022 Hematocrit (Bld) [Volume fraction] 39.7 % 34.0-46.4 [facility] Hemoglobin [Mass/volume] in BloodOrdered By: Becky Romeo on 08-14-2022 Hemoglobin (Bld) [Mass/Vol] 13.2 g/dL 11.8-15.4 [facility] Leukocytes [#/volume] correc kalyani for nucleated erythrocytes in Blood by Automated counOrdered By: Becky Romeo on 08-14-2022 WBC corrected for nucl RBC Auto (Bld) [#/Vol] 5.6 10*3/uL 3.8-11.6 [facility] Lipid Panelon 08-14-2022 Cholesterol in LDL Elph Qn 146 mg/dL High 0-100 mg/dL [facility] [employer] Other Lipid Panel 84 mg/dL Normal 35-149 mg/dL [facility] [employer] Other Lipid Panel 16 mg/dL [facility] [employer] Other Cholesterol [Mass/Vol] 195 mg/dL Normal 140-200 [facility] Comment on above: Result Comment: Chol less than 200 mg/dl low risk Chol 201-239 mg/dl borderline risk Chol 240 mg/dl and greater high risk Performed By: #### C BC, TSH3, CMP, A1C WTH eA, LIPID #### [facility] [address] [place] [id number] [place] Cholesterol in HDL [Mass/Vol] 32 mg/dL Low 35-85 [facility] Comment on above: Result Comment: HDL CHOL ATP-III CLASSIFICATION Cardiovascular Risk HDL > or equal to 60 mg/dL LOW HDL < 40 mg/dL HIGH Performed By: #### C BC, TSH3, CMP, A1C WTH eA, LIPID #### [facility] [address] [place] [address] [place] Cholesterol.total/Vero sterol in HDL [Mass ratio] 6.1 {ratio} Normal <5.0 [facility] Comment on above: Performed By: #### C BC, TSH3, CMP, A1C WTH eA, LIPID #### [facility] [address] [place] [id number] [place] LDL Cholesterol,Calculated 146 mg/dL High 0-100 [facility] Comment on above: Result Comment: LDL ATP III CLASSIFICATION LDL less than 100 mg/dL Optimal LDL 100-129 mg/dL Near or above optimal LDL 130-159 mg/dL Borderline high LDL 160-189 mg/dL High LDL greater than 189 mg/dL Very high Performed By: #### C BC, TSH3, CMP, A1C WT eA, LIPID #### [facility] [address] [place] [id number] [facility] Triglyceride w/Reflex 84 mg/dL Normal 35-149 [facility] Comment on above: Result Comment: TRIG ATP III CLASSIFICATION TRIG less than 150 mg/dL Normal TRIG 150-199 mg/dL Borderline high TRIG 200-500 mg/dL High TRIG greater than 500 mg/dL Very high Standard traceable to the Center for Disease Conrtrol and Prevention (CDC) test method. Performed By: #### C BC, TSH3, CMP, A1C WT eA, LIPID #### [facility] [address] [place] [id number] [facility] VLDL CHOLESTEROL 16 mg/dL Normal [facility] Comment on above: Performed By: #### C BC, TSH3, CMP, A1C [facility] eA, LIPID #### [facility] [address] [place] [id number] [place] Lymphocytes Auto (Bld) [#/Vo l]Ordered By: Becky Romeo on 08-14-2022 Lymphocytes (Bld) [#/Vol] 1.3 10*3/uL 1.00-4.8 [facility] Lymphocytes/100 WBC Auto (Bl d)Ordered By: Becky Romeo on 08-14-2022 Lymphocytes/100 WBC (Bld) 22.5 % . [facility] MCH Auto (RBC) [Entitic mass ]Ordered By: Becky Romeo on 08-14-2022 MCH (RBC) [Entitic mass] 30.2 pg 24.7-34.3 [facility] MCHC Auto (RBC) [Mass/Vol]Or dered By: Becky Romeo on 08-14-2022 MCHC (RBC) [Mass/Vol] 33.4 g/dL 32.0-35.0 [facility] MCV Auto (RBC) [Entitic vol] Ordered By: Becky Romeo on 08-14-2022 MCV (RBC) [Entitic vol] 90.5 fL 80-100 F [facility] Monocytes Auto (Bld) [#/Vol] Ordered By: Becky Romeo on 08-14-2022 Monocytes (Bld) [#/Vol] 0.4 10*3/uL 0.0-0.8 [facility] Monocytes/100 WBC Auto (Bld) Ordered By: Becky Romeo on 08-14-2022 Monocytes/100 WBC (Bld) 6.8 % . F [facility] Neutrophils Auto (Bld) [#/Vo l]Ordered By: Becky Romeo on 08-14-2022 Neutrophils (Bld) [#/Vol] 3.8 10*3/uL 1.8-7.7 [facility] Neutrophils/100 WBC Auto (Bl d)Ordered By: Becky Romeo on 08-14-2022 Neutrophils/100 WBC (Bld) 67.8 % . [facility] No Panel InformationOrdered By: Becky Romeo on 08-14-2022 Estimated GFR () > 60 mL/Min [facility] Comment on above: GFR estimated refere nce range: According to KDOQI guidelines, <60 ml/min/1.73m2 is sufficient to diagnose a patient with chronic kidney disease. Pharmacy Creatinine Clearance (Chem N/A [facility] Nucleated erythrocytes [Pres ence] in Blood by Automated countOrdered By: Becyk Romeo on 08-14-2022 Nucleated RBC Auto Ql (Bld) 0.3 /100{WBC} 0-0.5 [facility] Platelet mean volume Auto (B ld) [Entitic vol]Ordered By: Becky Romeo on 08-14-2022 Platelet mean volume (Bld) [Entitic vol] 9.0 fL 6.3-10.7 [facility] Platelets [#/volume] in Bloo d by Automated countOrdered By: Becky Romeo on 08-14-2022 Platelets (Bld) [#/Vol] 232 10*3/uL Normal 150- 450 10*3/uL [facility] Protein [Mass/volume] in Ser um or PlasmaOrdered By: Becky Romeo on 08-14-2022 Protein [Mass/Vol] 6.6 g/dL 6.1-7.9 [facility] Serum or plasma alanine kinsey otransferase measurement without P-5'-P (enzymatic activiOrdered By: Becky Romeo on 08-14-2022 ALT No additional P-5'-P [Catalytic activity/Vol] 34 U/L 10-60 [facility] Serum or plasma albumin/glob ulin mass ratioOrdered By: Becky Romeo on 08-14-2022 Albumin/Globulin [Mass ratio] 1.4 {ratio} [facility] Serum or plasma alkaline jean claude sphatase measurement (enzymatic activity/volume)Ordered By: Becky Romeo on 08-14-2022 ALP [Catalytic activity/Vol] 69 U/L Normal 32-92 U/L [facility] Serum or plasma anion gap de terminationOrdered By: Becky Romeo on 08-14-2022 Anion gap [Moles/Vol] 9.7 mmol/L 6.0-15.0 [facility] Serum or plasma aspartate am inotransferase measurement (enzymatic activity/volume)Ordered By: Becky Romeo on 08-14-2022 AST [Catalytic activity/Vol] 30 U/L Normal 10-42 U/L [facility] Serum or plasma calcium daily urement (mass/volume)Ordered By: Becky Romeo on 08-14-2022 Calcium [Mass/Vol] 9.2 mg/dL 8.2-10.2 [facility] Serum or plasma chloride julisa surement (moles/volume)Ordered By: Becky Romeo on 08-14-2022 Chloride [Moles/Vol] 108 mmol/L Normal 95-114 mmol/L [facility] Serum or plasma glucose daily urement (mass/volume)Ordered By: Becky Romeo on 08-14-2022 Glucose [Mass/Vol] 87 mg/dL Normal 70-100 mg/dL [facility] Comment on above: ADA recommended refe rence rangeRandom Glucose Reference Range is dependent on time and content of last meal. Glucose of more than 200 mg/dL in a nonstressed, ambulatory subject supports the diagnosis of Diabetes Mellitus. Serum or plasma high density lipoprotein (HDL) cholesterol measurementOrdered By: Becky Romeo on 08-14-2022 Cholesterol in HDL [Mass/Vol] 32 mg/dL Low 35-85 mg/dL [facility] Comment on above: HDL CHOL ATP-III CLA SSIFICATION Cardiovascular RiskHDL > or equal to 60 mg/dL LOWHDL < 40 mg/dL HIGH Serum or plasma potassium me asurement (moles/volume)Ordered By: Becky Romeo on 08-14-2022 Potassium [Moles/Vol] 3.8 mmol/L 3.5-5.1 [facility] Serum or plasma sodium measu rement (moles/volume)Ordered By: Becky Romeo on 08-14-2022 Sodium [Moles/Vol] 137 mmol/L Normal 136-146 mmol/L [facility] Serum or plasma total biliru bin measurement (mass/volume)Ordered By: Becky Romeo on 08-14-2022 Bilirubin [Mass/Vol] 0.7 mg/dL 0.3-1.2 [facility] Serum or plasma total carbon dioxide measurement (moles/volume)Ordered By: Becky Romeo on 08-14-2022 CO2 [Moles/Vol] 23.1 mmol/L 22.0-30.0 [facility] Serum or plasma total choles terol/high density lipoprotein (HDL) cholesterol mass ratOrdered By: Becky Romeo on 08-14-2022 Cholesterol.total/Vero sterol in HDL [Mass ratio] 6.1 {ratio} <5.0 [facility] Serum or plasma urea nitroge n measurement (mass/volume)Ordered By: Becky Romeo on 08-14-2022 Urea nitrogen [Mass/Vol] 5 mg/dL Low 9-23 mg/dL [facility] TSH DL <= 0.005 mIU/L QnOrde red By: Becky Romeo on 08-14-2022 TSH Qn 1.77 m[IU]/L 0.45-5.33 [facility] Thyroid Stimulating Hormoneo n 08-14-2022 TSH Qn 1.77 m[IU]/L Normal 0.45-5.33 [facility] Comment on above: Result Comment: PERF ORMED BY: [place] [address] PATHOLOGIST HYPERION DEVELOPER KULWANT GOMEZ M.D. Performed By: #### C BC, TSH3, CMP, A1C WTH eA, LIPID #### [facility] [address] Triglyceride [Mass/volume] i n Serum or PlasmaOrdered By: Becky Romeo on 08-14-2022 Triglyceride [Mass/Vol] 84 mg/dL 35-149 F [facility] Comment on above: TRIG ATP III CLASSIF ICATIONTRIG less than 150 mg/dL NormalTRIG 150-199 mg/dL Borderline highTRIG 200-500 mg/dL High TRIG greater than 500 mg/dL Very highStandard traceable to the Center for Disease Conrtrol and Prevention (CDC) test method. WBC Auto (Bld) [#/Vol]Ordere d By: Becky Romeo on 08-14-2022 WBC (Bld) [#/Vol] 5.6 10*3/uL 3.8-11.6 [facility] XR chest 2V*on 08-13-2022 XR chest 2V* [facility] [place] [address] [place] [address] XRay Report Signed Patient: Edwige Patterson MR#: [id number] : 2000 Acct:[id number] Age/Sex: 22 / F ADM Date: 08/13/22 Loc: [facility] Room: Type: [facility] Attending Dr: Becky Romeo DO Copies to: Becky Romeo DO Ordering Provider: Becky Romeo DO Date of Service: 08/13/22 XR/XR chest 2V*: Cough, unspecified type Plain film chest2 view HISTORY:Productive cough. Wheezing. COMPARISON:None FINDINGS: The cardiac, mediastinal and hilar silhouettes are within normal limits. No acute lung process, pleural effusion or pneumothorax identified. Bony structures are intact. XR/XR chest 2V* IMPRESSION: No acute process. Impression dictated by: Misbah Mast M.D.08/13/2022 3:23 PM Dictation Location: [place] [address] Transcribed By: [facility] 08/13/22 1523 Dictated By: Misbah Mast DO 08/13/22 1522 Signed By: 08/13/22 1523 Normal [facility] XR chest 2V* [facility] [employer] Other XR chest 2V* [facility] [employer] Other XR chest 2V* [address] [place] [address] [employer] Other XR chest 2V* [place] [address] [facility] [employer] Other XR chest 2V* XRay Report [employer] Other XR chest 2V* Signed [employer] Other XR chest 2V* Patient: Edwige Patterson MR#: [id number] [employer] Other XR chest 2V* [id number] [employer] Other XR chest 2V* : 2000 Acct:[id number] [employer] Other XR chest 2V* Age/Sex: 22 / F ADM Date: 08/13/22 [employer] Other XR chest 2V* Loc: [facility] Room: Type : [facility] [employer] Other XR chest 2V* Attending Dr: Diane Romeo DO [employer] Other XR chest 2V* Copies to: Becky Romeo, [employer] Other XR chest 2V* Ordering Provider: Becky Romeo DO [employer] Other XR chest 2V* Date of Service: 08/13/22 [employer] Other XR chest 2V* XR/XR chest 2V*: Cough, unspecified type [employer] Other XR chest 2V* Plain film chest2 view [employer] Other XR chest 2V* HISTORY:Productive cough. Wheezing. [employer] Other XR chest 2V* COMPARISON:None [facility] [employer] Other XR chest 2V* FINDINGS: The cardiac, mediastinal and hilar silhouettes are within normal limits. No acute lung [employer] Other XR chest 2V* process, pleural effusion or pneumothorax identified. Bony structures are intact. [employer] Other XR chest 2V* XR/XR chest 2V* [employer] Other XR chest 2V* IMPRESSION: No acute process. [employer] Other XR chest 2V* Impression dictated by: Misbah Mast M.D.08/13/2022 3:23 PM [employer] Other XR chest 2V* Dictation Location: [place] [address] [employer] Other XR chest 2V* Transcribed By: DOMINIQUE 08/13/22 [facility] [place] [employer] Other XR chest 2V* Dictated By: Misbah Mast DO 08/13/22 [facility] [employer] Other XR chest 2V* Signed By: [employer] Other XR chest 2V* 08/13/22 [facility] [place] [facility] [employer] Other Quick Strepon 08-05-2022 S. pyogenes Org specific cx Ql (Throat) Positive [facility] [employer] Other Quick Strep [facility] [employer] Other COVID Quick Testingon 2021 Result Negative [employer] Other COVID + FLU Quick Testingon 07-03-2021 SARS-CoV-2 (COVID-19) RNA THA+probe Ql (Unsp spec) Positive [employer] Other COVID + FLU Quick Testing Negative [employer] Other Q - THINPREP(R) TIS AND HPV MRNA E6/E7 RFL HPV 16/18/45on 06-20-2021 CLINICAL INFORMATION: None given Normal [facility] Specialist Comment on above: Order Comment: [facility] performed at: [facility], [address] [place] [address], [phone], Box Printing Machine Operator: Ramana Taylor MD Testing performed at: [facility], [address] [place] [address], [phone], Box Printing Machine Operator: Mani Anderson [facility] Collection Date/Time: [facility] Results Received Date/Time: [facility] Reported Date/Time: FASTING: UNKNOWN Result Comment: [[facility] ] Performed By: #### 9 1414 #### [facility] Default [address] [place] [address] COMMENT SEE NOTE Normal [facility] Comment on above: Order Comment: [facility] Testing performed at: [employer], [id number], [employer] Print[employer] Machine Operator: Ramana Taylor MD Testing performed at: [facility], [address] [place], [phone], [employer] Machine Operator: Mani Anderson [facility] Collection Date/Time: [facility] Results [...] 9 1414 #### [facility] Default [address] [place] [address] COMMENT: This Pap test has been evaluated with computer assisted technology. Normal [facility] Specialist Comment on above: Order Comment: [facility] Testing performed at: [employer], [address] [place] [address], [employer] Print[employer] Machine Operator: Ramana Taylor MD Testing performed at: [facility], [address] [place] [address], [address] [place] [address], Box Printing Machine Operator: Mani Anderson [facility] Collection Date/Time: [facility] Results Received Date/Time: [facility] Reported Date/Time: FASTING: UNKNOWN Result Comment: [[facility]BU ] Performed By: #### 9 1414 #### [facility] Default [address] [place], [place] [address] CAMP ADVISOR: SEE NOTE Normal See Note: [facility] Comment on above: Order Comment: [facility] Testing performed at: [facility], [address] [place] [address], [address] [place] [address], [employer] Print[employer] Machine Operator: Ramana Taylor MD Testing performed at: [facility], [address] [place] [address], [address] [place] [address], Box Printing Machine Operator: Mani Anderson [facility] Collection Date/Time: [facility] Results Received Date/Time: [facility] Reported Date/Time: FASTING: UNKNOWN Result Comment: Refe rence Range: ZL, CT(ASCP) CT screening location: [place] [address]. [QBU] Performed By: #### 9 1414 #### [facility] Default [address] [place] [address] GENERAL CATEGORIZATION: EPITHELIAL CELL ABNORMALITY Abnormal [facility] Comment on above: Order Comment: [facility] Testing performed at: [facility], [address] [place] [address], [address] [place] [address], [address] [place] [address], Box Printing Machine Operator: Ramana Taylor MD Testing performed at: [facility], [address] [place] [address], [address] [place] [address], Box Printing Machine Operator: Mani Anderson [facility] Collection Date/Time: [facility] Results Received Date/Time: [facility] Reported Date/Time: FASTING: UNKNOWN Result Comment: [QBU ] Performed By: #### 9 1414 #### [facility] [address] [place] [address] HPV mRNA E6/E7 Detected Abnormal Not Detected [facility] Comment on above: Order Comment: [facility] Testing performed at: [facility], [address] [place] [address], [address] [place] [address], [address] [place] [address], Box Printing Machine Operator: Ramana Taylor MD Testing performed at: [facility], [address] [place] [address], [address] [place] [address], Box Printing Machine Operator: Mani Anderson [facility] Collection Date/Time: [facility] Results Received Date/Time: [facility] Reported Date/Time: FASTING: UNKNOWN Result Comment: Meth odology: Linen Room Worker-Mediated Amplification This assay detects E6/E7 viral messenger RNA (mRNA) from 14 high-risk HPV types (16,18,31,33,35,39,45,51,52,56,58,59,66,68). The analytical performance characteristics of this assay have been determined by [employer]. The modifications have not been cleared or approved by the FDA. This assay has been validated pursuant to the CLIA regulations and is used for clinical purposes. For additional information, please refer to http://education.BandApp.Kmsocial/faq/EPI608f9 (This link if provided for information/ educational purposes only.) [O6K] Performed By: #### 9 1414 #### [facility] Default [address] [place] [address] INTERPRETATION/RESULT: Atypical Squamous Cells of Undetermined Significance (ASC-US) Abnormal [facility] Specialist Comment on above: Order Comment: [facility] Testing performed at: [facility], [address] [place] [address], [address] [place] [address], [address] [place] [address], Box Print[employer] Machine Operator: Ramana Taylor MD Testing performed at: [facility], [address] [place] [address], [address] [place] [address], Box Printing Machine Operator: Mani Anderson Quest Collection Date/Time: Quest Results Received Date/Time: [facility] Reported Date/Time: FASTING: UNKNOWN Result Comment: [QBU ] Performed By: #### 9 [id number] #### [facility] [address] [place] [id number] LMP: None given Normal [facility] Specialist Comment on above: Order Comment: Quest Testing performed at: [facility], [address] [place] [address], [address] [place] [address], [address] [place] [address], [employer] Operator: Ramana Taylor MD Testing performed at: [facility], [address] [place] [address], [phone], [employer] Print[employer] Operator: Mani Anderson Quest Collection Date/Time: Quest Results Received Date/Time: Quest Reported Date/Time: FASTING: UNKNOWN Result Comment: [QBU ] Performed By: #### 9 [id number] #### [facility] [address] [place] [id number] PATHOLOGIST: SEE NOTE Normal [facility] Assistant Scientist Comment on above: Order Comment: Quest Testing performed at: [employer], [address] [place] [address], [address] [place] [address], [address] [place] [address], [employer] Print[employer] Operator: Ramana Taylor MD Testing performed at: [facility], [address] [place], [address], Box Print[employer] Operator: Mani Anderson Quest Collection Date/Time: Quest Results Received Date/Time: Quest Reported Date/Time: FASTING: UNKNOWN Result Comment: Vance Anderson MD, PhD, M.B.A. Board Certified in Anatomic and Clinical Pathology Board Certified in Cytopathology (electronic signature) For questions regarding this report call Anatomic Pathology at [phone] [QBU] Performed By: #### 9 [id number] #### [facility] Default [address] [place] [address] PREV. BX: None given Normal [facility] Comment on above: Order Comment: Quest Testing performed at: [facility], [address] [place] [address], [address] [place] [address], [id number], [employer] Print[employer] Operator: Ramana Taylor MD Testing performed at: [facility], [address] [place], [address], Box Printing Machine Operator: Mani Anderson Quest Collection Date/Time: Quest Results Received Date/Time: [facility] Reported Date/Time: FASTING: UNKNOWN Result Comment: [QBU ] Performed By: #### 9 1414 #### [facility] [address] [place] [address] PREV. PAP: None given Normal [facility] Comment on above: Order Comment: Quest Testing performed at: [facility], [address] [place] [address], [address] [place] [address], [phone], Box Printing Machine Operator: Ramana Taylor MD Testing performed at: [facility], [address] [place], [address], Box Printing Machine Operator: Mani Anderson Quest Collection Date/Time: Quest Results Received Date/Time: Quest Reported Date/Time: FASTING: UNKNOWN Result Comment: [QBU ] Performed By: #### 9 [id number] #### [facility] Default [address] [place] [address] SOURCE: None given Normal [facility] Specialist Comment on above: Order Comment: Quest Testing performed at: [facility], [address] [place] [address], [address] [place] [address], [address] [place] [address], Box Print[employer] Operator: Ramana Taylor MD Testing performed at: [facility], [address] [place] [address], [address] [place] [address], Box Printing Machine Operator: Mani Anderson Quest Collection Date/Time: Quest Results Received Date/Time: Quest Reported Date/Time: FASTING: UNKNOWN Result Comment: [QBU ] Performed By: #### 9 1414 #### [facility] Default [address] [place] [address] STATEMENT OF ADEQUACY: SEE NOTE [facility] Comment on above: Order Comment: Quest Testing performed at: [facility], [address] [place] [address], [address] [place] [address], [address] [place] [address], Box Printing Machine Operator: Ramana Taylor MD Testing performed at: [facility], [address] [place] [address], [address] [place] [address], Box Printing Machine Operator: Mani Anderson Quest Collection Date/Time: Quest Results Received Date/Time: Quest Reported Date/Time: FASTING: UNKNOWN Result Comment: Sati sfactory for evaluation. Endocervical/transformation zone component present. [QBU] Performed By: #### 9 [id number] #### [facility] Default [address] [place] [address] XR Finger Lefton 06-20-2021 XR Finger Left FINDINGS: PIP soft tissue swelling. Minimally distracted volar plate fracture, middle phalangeal base. Minimal arthritis. IMPRESSION: Minimally distracted 4th PIP joint volar plate fracture Report reported and signed by Hubert Lewis on 06/20/2021 1443 Normal [facility] Specialist PREG HCG QUALon 05-19-2020 , QUAL Negative Normal NEGATIVE [facility] Comment on above: Performed By: #### P REG #### [facility] [address] [place], [place] [address] Liam Ayala COVID-19 PCRon 05-14-2020 SARS-CoV-2 (COVID-19) RNA THA+probe Ql (Unsp spec) Not detected Normal Not Detected [facility] Comment on above: Result Comment: This nucleic acid amplification test was developed and its performance characteristics determined by [employer]. Nucleic acid amplification tests include PCR and [...] Performed By: #### C VDSTAT, CVDPCR #### [facility] [address] [place], [place] [address] Liam Ayala PRIORITY COVID PROCESSINGon 05-14-2020 Comment Comment Normal [facility] Comment on above: Result Comment: Rece ived Performed By: #### C VDSTAT, CVDPCR #### [facility] [address] [place], [place] [address] Liam Ayala Vital Signs Date Time Vital Sign Value Performing Clinician Facility 02-14-2025 17:17-0400 Body height 167.6 cm [facility] Work Phone: [facility] 02-14-2025 17:17-0400 Body mass index (BMI) [Ratio] 38.9 kg/m2 Jovita Floro CNM Work Phone: [facility] 02-14-2025 17:17-0400 Body weight 109.32 kg Jovita ROBERTSM Work Phone: [facility] 02-14-2025 17:17-0400 Diastolic blood pressure 78 mm[Hg] Jovita Salas CNM Work Phone: [facility] 02-14-2025 17:17-0400 Heart rate 78 /min Jovita Salas CNM Work Phone: [facility] 02-14-2025 17:17-0400 Respiratory rate 18 /min Jovita Salas CNM Work Phone: [facility] 02-14-2025 17:17-0400 SaO2% (BldA) [Mass fraction] 98 % Jovita Salas CNM Work Phone: [facility] 02-14-2025 17:17-0400 Systolic blood pressure 130 mm[Hg] Jovita Salas CNM Work Phone: [facility] 01-11-2025 09:15-0400 Body height 170.18 cm Becky Romeo DO Work Phone: [facility] 01-11-2025 09:15-0400 Body mass index (BMI) [Ratio] 37.6 kg/m2 Becky Romeo DO Work Phone: [facility] 01-11-2025 09:15-0400 Body weight 109.1 kg Becky Romeo DO Work Phone: [facility] 12-03-2024 14:00-0400 Heart rate 90 /min Ness Majors SOLE PAINTER Work Phone: [facility] 12-03-2024 13:44-0400 Body height 167.6 cm Ness Majors SOLE PAINTER Work Phone: [facility] 12-03-2024 13:44-0400 Body mass index (BMI) [Ratio] 39.38 kg/m2 Ness Majors SOLE PAINTER Work Phone: [facility] 12-03-2024 13:44-0400 Body weight 110.68 kg Nesskya Montez SOLE PAINTER Work Phone: [facility] 12-03-2024 13:44-0400 Diastolic blood pressure 82 mm[Hg] Ness Adrianocuauhtemoc SOLE PAINTER Work Phone: [facility] 12-03-2024 13:44-0400 Respiratory rate 18 /min Ness Adrianocuauhtemoc SOLE PAINTER Work Phone: [facility] 12-03-2024 13:44-0400 SaO2% (BldA) [Mass fraction] 97 % Ness Adriano SOLE PAINTER Work Phone: [facility] 12-03-2024 13:44-0400 Systolic blood pressure 134 mm[Hg] Ness Adrianocuauhtemoc SOLE PAINTER Work Phone: [facility] 11-24-2024 13:12-0400 SaO2% (BldA) [Mass fraction] 94 % Becky Ousmane DO Work Phone: [facility] 11-24-2024 13:00-0400 Body temperature 98.01 [degF] Becky Ousmane DO Work Phone: [facility] 11-24-2024 13:00-0400 Diastolic blood pressure 76 mm[Hg] Becky Ousmane DO Work Phone: [facility] 11-24-2024 13:00-0400 Heart rate 89 /min Becky Ousmane DO Work Phone: [facility] 11-24-2024 13:00-0400 Respiratory rate 16 /min Becky Ousmane DO Work Phone: [facility] 11-24-2024 13:00-0400 Systolic blood pressure 117 mm[Hg] Becky Ousmane DO Work Phone: [email or web address] 08-10-2024 16:06-0500 Body height 167.6 cm Jovita ROBERTS Work Phone: [facility] 08-10-2024 16:06-0500 Body mass index (BMI) [Ratio] 39.64 kg/m2 Jovita Salas CNM Work Phone: [facility] 08-10-2024 16:06-0500 Body weight 111.4 kg Jovita ROBERTS Work Phone: [facility] 08-10-2024 16:06-0500 Diastolic blood pressure 70 mm[Hg] Jovita ROBERTS Work Phone: [facility] 08-10-2024 16:06-0500 Systolic blood pressure 118 mm[Hg] Jovita ROBERTS Work Phone: [facility] 08-05-2024 10:19-0500 Body temperature 98.4 [degF] Priyank Gaspar MD Work Phone: [facility] 08-05-2024 10:19-0500 Diastolic blood pressure 56 mm[Hg] Priyank Gaspar MD Work Phone: [facility] 08-05-2024 10:19-0500 Heart rate 114 /min Priyank Gaspar MD Work Phone: [facility] 08-05-2024 10:19-0500 Respiratory rate 18 /min Priyank Gaspar MD Work Phone: [facility] 08-05-2024 10:19-0500 SaO2% (BldA) [Mass fraction] 97 % Priyank Gaspar MD Work Phone: [email or web address] 08-05-2024 10:19-0500 Systolic blood pressure 97 mm[Hg] Priyank Gaspar MD Work Phone: [facility] 07-20-2024 18:12-0500 SaO2% (BldA) [Mass fraction] 97 % Yoli Lal MD Work Phone: [email or web address] 07-20-2024 15:37-0500 Body height 170.2 cm Yoli Lal MD Work Phone: [employer] 07-20-2024 15:37-0500 Body mass index (BMI) [Ratio] 37.59 kg/m2 Yoli Lal MD Work Phone: [facility] [employer] 07-20-2024 15:37-0500 Body temperature 98.29 [degF] Yoli Lal MD Work Phone: [employer] 07-20-2024 15:37-0500 Body weight 108.86 kg Yoli Lal MD Work Phone: [facility] [employer] 07-20-2024 15:37-0500 Diastolic blood pressure 76 mm[Hg] Yoli Lal MD Work Phone: [facility] 07-20-2024 15:37-0500 Heart rate 100 /min Yoli Lal MD Work Phone: [employer] 07-20-2024 15:37-0500 Respiratory rate 18 /min Yoli Lal MD Work Phone: [facility] [employer] 07-20-2024 15:37-0500 Systolic blood pressure 110 mm[Hg] Yoli Lal MD Work Phone: [facility] 05-24-2024 08:46-0500 Body height 167.6 cm Destinee Britton MD Work Phone: [facility] 05-24-2024 08:46-0500 Body mass index (BMI) [Ratio] 39 kg/m2 Destinee Britton MD Work Phone: [facility] 05-24-2024 08:46-0500 Body weight 109.59 kg Destinee Britton MD Work Phone: [facility] 05-24-2024 08:46-0500 Diastolic blood pressure 74 mm[Hg] Destinee Britton MD Work Phone: [facility] 11-18-2024 08:46-0500 Heart rate 91 /min Destinee Britton MD Work Phone: [facility] 05-24-2024 08:46-0500 Respiratory rate 18 /min Destinee Britton MD Work Phone: [facility] 05-24-2024 08:46-0500 SaO2% (BldA) [Mass fraction] 97 % Destinee Britton MD Work Phone: [facility] 05-24-2024 08:46-0500 Systolic blood pressure 114 mm[Hg] Destinee Britton MD Work Phone: [facility] 05-20-2024 15:22-0500 Body height 167.6 cm Destinee Britton MD Work Phone: [facility] 05-20-2024 15:22-0500 Body mass index (BMI) [Ratio] 39.96 kg/m2 Destinee Britton MD Work Phone: [facility] 05-20-2024 15:22-0500 Body weight 112.31 kg Destinee Britton MD Work Phone: [facility] 05-20-2024 15:22-0500 Diastolic blood pressure 72 mm[Hg] Destinee Britton MD Work Phone: [facility] 05-20-2024 15:22-0500 Heart rate 116 /min Destinee Britton MD Work Phone: [facility] 05-20-2024 15:22-0500 Respiratory rate 18 /min Destinee Britton MD Work Phone: [facility] 05-20-2024 15:22-0500 SaO2% (BldA) [Mass fraction] 99 % Destinee Britton MD Work Phone: [facility] 05-20-2024 15:22-0500 Systolic blood pressure 134 mm[Hg] Destinee Britton MD Work Phone: [facility] 05-10-2024 13:59-0500 Body mass index (BMI) [Ratio] 39.87 kg/m2 Jovita Salas CNM Work Phone: [facility] 05-10-2024 13:59-0500 Body weight 112.04 kg Jovita ROBERTS Work Phone: [facility] 11-11-2023 14:36-0400 Diastolic blood pressure 76 mm[Hg] [facility] 11-11-2023 14:36-0400 Heart rate 92 /min [facility] 11-11-2023 14:36-0400 Respiratory rate 20 /min [facility] 11-11-2023 14:36-0400 Systolic blood pressure 104 mm[Hg] [facility] 10-10-2023 11:51-0400 Body height 170.18 cm [facility] 10-10-2023 11:51-0400 Body mass index (BMI) [Ratio] 38.2 kg/m2 [facility] 10-10-2023 11:51-0400 Body weight 110.67 kg [facility] 10-10-2023 11:51-0400 Diastolic blood pressure 81 mm[Hg] [facility] 10-10-2023 11:51-0400 Heart rate 78 /min [facility] 10-10-2023 11:51-0400 SaO2% (BldA) [Mass fraction] 96 % [facility] 10-10-2023 11:51-0400 Systolic blood pressure 128 mm[Hg] [facility] 07-09-2023 13:00-0500 Body height 170.18 cm Becky Romeo Other [facility] [employer] Other 07-09-2023 13:00-0500 Body mass index (BMI) [Ratio] 36.96 kg/m2 Becky Romeo Other [employer] Other 07-09-2023 13:00-0500 Body temperature 97.6 [degF] Becky Romeo Other [facility] [employer] Other 07-09-2023 13:00-0500 Body weight 107.05 kg Becky Romeo Other [employer] Other 07-09-2023 13:00-0500 Diastolic blood pressure 69 mm[Hg] Becky Romeo Other [employer] Other 07-09-2023 13:00-0500 Respiratory rate 20 /min Becky Romeo Other [employer] Other 07-09-2023 13:00-0500 SaO2% (BldA) [Mass fraction] 97 % Becky Romeo Other [employer] Other 07-09-2023 13:00-0500 Systolic blood pressure 109 mm[Hg] Becky Romeo Other [employer] Other 12-09-2022 11:05-0400 Body height 170.18 cm Lexy Kraft Other [employer] Other 12-09-2022 11:05-0400 Body mass index (BMI) [Ratio] 38.52 kg/m2 Lexy Menamond Other [employer] Other 12-09-2022 11:05-0400 Body temperature 97.8 [degF] Lexy Kraft Other [employer] Other 12-09-2022 11:05-0400 Body weight 111.59 kg Lexy Menamond Other [employer] Other 12-09-2022 11:05-0400 Respiratory rate 18 /min Lexy Menamond Other [employer] Other 12-09-2022 11:05-0400 SaO2% (BldA) [Mass fraction] 98 % Lexy Abena Other [employer] Other 08-12-2022 16:00-0500 Body height 170.18 cm Becky Romeo Other [employer] Other 08-12-2022 16:00-0500 Body mass index (BMI) [Ratio] 39.62 kg/m2 Becky Romeo Other [employer] Other 08-12-2022 16:00-0500 Body weight 114.76 kg Becky Romeo Other [employer] Other 08-12-2022 16:00-0500 Diastolic blood pressure 71 mm[Hg] Becky Romeo Other [employer] Other 08-12-2022 16:00-0500 Respiratory rate 16 /min Becky Romeo Other [employer] Other 08-12-2022 16:00-0500 SaO2% (BldA) [Mass fraction] 98 % Becky Romeo Other [employer] Other 08-12-2022 16:00-0500 Systolic blood pressure 107 mm[Hg] Becky Romeo Other [employer] Other 02-08-2022 12:00-0400 Body height 167.64 cm Joselin Wilkins Other [employer] Other 02-06-2022 18:45-0400 Body height 167.64 cm Lexy Kraft Other [employer] Other 02-06-2022 18:45-0400 Body mass index (BMI) [Ratio] 37.12 kg/m2 Lexy Kraft Other [employer] Other 02-06-2022 18:45-0400 Body temperature 97.3 [degF] Lexy Kraft Other [employer] Other 02-06-2022 18:45-0400 Body weight 104.33 kg Lexy Kraft Other [employer] Other 02-06-2022 18:45-0400 Respiratory rate 18 /min Lexy Kraft Other [employer] Other 02-06-2022 18:45-0400 SaO2% (BldA) [Mass fraction] 97 % Lexy Kraft Other [employer] Other Encounters Encounter Date Encounter Type Care Provider Facility Start: 03-02-2025 End: 03-02-2025 Treatment Ryan Brfab CROWN PRESSER [facility] Comment on above: Sacrococcygeal disor ders, not elsewhere classified (Primary Dx) Start: 03-02-2025 End: 03-02-2025 Bamboo flowsheet Ryan Brfab CROWN PRESSER [facility] Start: 03-02-2025 End: 03-02-2025 Bamboo flowsheet Ryan Denita CROWN PRESSER [facility] Start: 02-28-2025 End: 02-28-2025 Treatment Delia Kwan PT [facility] Comment on above: Sacrococcygeal disor ders, not elsewhere classified (Primary Dx) Start: 02-28-2025 End: 02-28-2025 Bamboo flowsheet Delia Kwan PT [facility] Start: 02-28-2025 End: 02-28-2025 Bamboo flowsisis Kwan PT [facility] Start: 02-23-2025 End: 02-23-2025 ambulatory CHAD [facility]qu[facility] Start: 02-21-2025 End: 02-21-2025 ambulatory Ty Fairbanks MD Facility:[facility] Start: 02-15-2025 End: 02-15-2025 ambulatory Kem Costa CROWN PRESSER [facility] Start: 02-15-2025 End: 02-15-2025 Telephone encounter Destinee Britton MD Work Phone: [facility] Comment on above: Sacrococcygeal disor ders, not elsewhere classified (Primary Dx) Start: 02-14-2025 End: 02-14-2025 Office outpatient visit 15 minutes Jovita L Floro CNM [facility] Comment on above: PCOS (polycystic ova melvin syndrome) (Primary Dx); Encounter for initial prescription of contraceptive pills; Insulin resistance Start: 02-14-2025 End: 02-14-2025 Bamboo flowsheet Jovita L Floro CNM Work Phone: [facility] Jamia OBSHAILESHN Start: 02-14-2025 End: 02-14-2025 Bamboo flowsheet Jovita L Floro CNM [facility] Start: 02-01-2025 End: 02-01-2025 Treatment Kem Costa CROWN PRESSER [facility] Comment on above: Sacrococcygeal disor ders, not elsewhere classified (Primary Dx) Start: 02-01-2025 End: 02-01-2025 Bamboo flowsheet Kem Costa CROWN PRESSER [facility] Start: 02-01-2025 End: 02-01-2025 Bamboo flowsheet Kem Costa CROWN PRESSER [facility] Start: 01-27-2025 End: 01-27-2025 Treatment Ofelia Blakely CROWN PRESS[facility] Comment on above: Sacrococcygeal disor ders, not elsewhere classified (Primary Dx) Start: 01-27-2025 End: 01-27-2025 Bamboo flowsheet Ofelia Blakely CROWN PRESSER [facility] Start: 01-27-2025 End: 01-27-2025 Bamboo flowsheet Ofelia Blakely CROWN PRESS[facility] Start: 01-24-2025 End: 01-25-2025 Evaluation Delia Aquiles PT [facility] Comment on above: Sacrococcygeal disor ders, not elsewhere classified (Primary Dx) Start: 01-24-2025 End: 01-24-2025 Bamboo flowsheet Delia Kwan PT [facility] Start: 01-24-2025 End: 01-24-2025 Bamboo flowsheet Delia Kwan PT [facility] Start: 01-20-2025 End: 01-20-2025 ambulatory [facility] Start: 01-11-2025 End: 01-11-2025 ambulatory Becky Romeo DO Work Phone: [facility] Work Phone: Start: 01-11-2025 End: 01-11-2025 Patient encounter procedure Feliz Musa MD -[facility] Neuro[facility] Work Phone: Start: 01-06-2025 End: 01-06-2025 ambulatory Becky Romeo DO Work Phone: [facility] Work Phone: Start: 01-06-2025 End: 01-06-2025 Patient encounter procedure Mack Zimmerman DO -[facility] Neurology Work Phone: Start: 01-05-2025 End: 01-05-2025 ambulatory Becky Romeo DO Facility:[facility] Start: 12-27-2024 End: 12-27-2024 ambulatory Ty Fairbanks MD Facility:[facility] Start: 12-16-2024 End: 12-16-2024 ambulatory [facility] Start: 12-03-2024 End: 12-03-2024 Telephone encounter Destinee Britton MD Work Phone: [facility] Start: 12-03-2024 End: 12-03-2024 Office outpatient visit 25 minutes Ness Montez SOLE PAINTER Work Phone: [facility] Comment on above: Nausea (Primary Dx); Pain of upper abdomen Start: 12-01-2024 Non-patient / Non-visit Lacey Morton WALLCOVERING TEXTURER [facility] Work Phone: Start: 11-24-2024 End: 11-24-2024 Emergency department patient visit BECKY Barber [facility] Comment on above: Acute exacerbation o f chronic low back pain (Primary Dx) Start: 11-11-2024 End: 11-11-2024 ambulatory [facility] Start: 10-14-2024 End: 10-14-2024 ambulatory [facility] Start: 09-17-2024 End: 09-17-2024 ambulatory NUBIA Cavazos [facility] Start: 09-16-2024 End: 09-16-2024 ambulatory [facility] Start: 09-13-2024 End: 09-13-2024 ambulatory Ty Fairbanks MD Facility:[facility] Start: 08-30-2024 End: 08-30-2024 ambulatory Ty Fairbanks MD Facility:[facility] Start: 08-26-2024 End: 08-26-2024 ambulatory CHAD [facility] Start: 08-16-2024 End: 08-16-2024 ambulatory Ty Fairbanks MD Facility:[facility] Start: 08-12-2024 End: 08-12-2024 ambulatory [facility] Start: 08-10-2024 End: 08-10-2024 Office outpatient visit 15 minutes Jovita Salas CNM Work Phone: [facility] Comment on above: Unwanted fertility ( Primary Dx); PCOS (polycystic ovarian syndrome) Start: 08-10-2024 End: 08-10-2024 Bamboo flowsheet Jovita Rosarioo CNM Work Phone: [facility] Start: 08-10-2024 End: 08-10-2024 Bamboo flowsheet Jovita Rosarioo CNM Work Phone: [facility] Start: 08-05-2024 End: 08-05-2024 Emergency department patient visit Priyank Gaspar MD Work Phone: [facility] Comment on above: Acute exacerbation o f chronic low back pain (Primary Dx) Start: 07-20-2024 End: 07-20-2024 Emergency department patient visit Yoli Lal MD Work Phone: [facility] Comment on above: Strain of lumbar reg ion, initial encounter (Primary Dx); Abnormal computed tomography of lumbar spine Start: 07-15-2024 End: 07-15-2024 ambulatory [facility] Start: 06-25-2024 End: 06-25-2024 ambulatory [facility] Start: 06-02-2024 End: 07-16-2024 Refill Destinee Britton MD Work Phone: [facility] Comment on above: Encounter for initia l prescription of contraceptive pills Start: 05-28-2024 End: 05-28-2024 ambulatory NUBIA Dirk [facility] Start: 05-27-2024 End: 05-27-2024 ambulatory [facility] Start: 05-24-2024 End: 05-24-2024 Bamboo flowsheet Destinee [...] Other acne; Hirsutism Start: 04-22-2024 End: 04-22-2024 [facility] Start: 03-25-2024 End: 03-25-2024 [facility] [facility] Start: 11-11-2023 End: 11-11-2023 ambulatory [facility] Work Phone: Start: 11-11-2023 End: 11-11-2023 Patient encounter procedure [facility] Family Medicine Work Phone: Start: 10-10-2023 End: 10-10-2023 ambulatory [facility] Work Phone: Start: 10-10-2023 End: 10-10-2023 Patient encounter procedure [facility] Family [facility] Work Phone: Start: 07-09-2023 End: 07-09-2023 ambulatory Becky Pierrearvinyumiko Other [employer] Other Start: 07-09-2023 Office outpatient vi sit 25 minutes Becky Pierrefariba [facility] Start: 12-11-2022 End: 12-11-2022 ambulatory Becky Pierrearvinyumiko Other [employer] Other Start: 12-11-2022 Telephone encounter Becky Romero i [facility] Start: 12-09-2022 Office outpatient vi sit 15 minutes Lexy Kraft [facility] Start: 12-09-2022 End: 12-09-2022 ambulatory PHYSICIAN NO [employer] Other Start: 12-09-2022 End: 12-09-2022 Patient encounter procedure PHYSICIAN NO [facility] Work Phone: Start: 09-27-2022 End: 09-27-2022 ambulatory Becky Branarvinyumiko Other [employer] Other Start: 09-27-2022 Telephone encounter Becky Romero i [facility] Start: 08-14-2022 End: 08-14-2022 ambulatory Becky Romeo Facility:[facility] Start: 08-14-2022 End: 08-14-2022 ambulatory PHYSICIAN NO [facility] Work Phone: Start: 08-14-2022 End: 08-14-2022 Patient encounter procedure PHYSICIAN NO [facility] [place] Work Phone: Start: 08-13-2022 End: 08-13-2022 ambulatory Becky Pierrearvini Facility:[facility] Start: 08-13-2022 End: 08-13-2022 Patient encounter procedure PHYSICIAN NO [facility] [place] Start: 08-13-2022 End: 08-13-2022 ambulatory PHYSICIAN TIM [facility] Work Phone: Start: 08-13-2022 Telephone encounter Becky Romero i [employer] Start: 08-12-2022 End: 08-12-2022 ambulatory Becky Romeo Other [employer] Other Start: 08-12-2022 Encounter for genera l adult medical examination without abnormal findings Becky Romeo [facility] Start: 08-12-2022 Periodic preventive med est patient 18-39 yrs Becky Romeo [facility] Start: 05-20-2022 End: 05-20-2022 ambulatory Becky Romeo Other [employer] Other Start: 05-20-2022 Telephone encounter Becky Romero i [facility] Start: 02-08-2022 End: 02-08-2022 ambulatory Becky Romeo Other [employer] Other Start: 02-08-2022 Office outpatient vi sit 15 minutes Joselin Wilkins [facility] Start: 02-08-2022 Telephone encounter Becky Romero i [facility] Start: 02-06-2022 End: 02-06-2022 ambulatory Lexy Kraft Other [employer] Other Start: 02-06-2022 Office outpatient vi sit 15 minutes Lexy Kraft [facility] Start: 07-03-2021 End: 07-03-2021 ambulatory Becky Romeo Other [employer] Other Start: 07-03-2021 Office outpatient vi sit 15 minutes Becky Ousmane [facility] Start: 05-19-2020 End: 05-19-[address] ROGE THACKER Facility:[facility]1 Start: 05-16-2020 Encounter for other preprocedural examination [facility] Start: 05-13-2020 End: 05-14-2020 ambulatory [facility] Facility:[facility]1 Start: 05-11-2020 End: 05-12-2020 ambulatory [facility] Facility:[facility]1 Start: 05-11-2020 End: 05-12-2020 Encounter for other preprocedural examination [facility] Facility:[facility]1 Start: 03-23-2020 End: 03-24-[address] DESTINEE BRITTON Facility:[facility] Start: 02-29-2020 End: 03-01-2020 ambulatory [facility] Facility:[facility]1 Start: 03-30-2019 End: 03-30-2019 Patient encounter procedure Radha Aguilera [facility] Procedures Date Procedure Procedure Detail Performing Clinician Start: 12-03-2024 Urnls dip stick/tabl et rgnt non-auto w/o micrscp Ness Montez SOLE PAINTER Work Phone: Start: 07-20-2024 Ct lumbar spine w/o contrast material Yoli Lal MD Work Phone: Start: 07-20-2024 Urinalysis microscop ic only Yoli Lal MD Work Phone: Start: 07-20-2024 End: 07-20-2024 Urnls dip stick/tablet rgnt auto w/o microscopy Yoli Lal MD Work Phone: Start: 04-22-2024 Follow-up visit Follow-up CHAD Giordano ROSANA Start: 12-09-2022 Plain X-ray of left hand PHYSICIAN NO FAMILY Start: 12-09-2022 Plain X-ray of left wrist PHYSICIAN NO FAMILY Start: 08-13-2022 Plain chest X-ray PHYSI BALJIT NO FAMILY Start: 03-30-2019 X-ray of left ankle Donte linda Aguilera Plan of Treatment Date Care Activity Detail Author Start: 08-15-2025 End: 08-15-2025 Patient encounter procedure 08/15/2025 5:30 PM EST [facility] [address] [place] [address] Jovita Salas, CNM [address] [facility] [place] [address] BIANCA MONTALVON Start: 03-07-2025 Influenza vaccination Influenza Vacc ine (#1) [facility] Start: 03-02-2025 End: 03-02-2025 ambulatory 03/02/2025 5:30 PM EDT Treatment [facility] [address] [facility] [address] [place] [address] Ryan Barger, CROWN PRESSER [facility] Start: 02-28-2025 End: 02-28-2025 ambulatory 02/28/2025 6:00 PM EDT Treatment [facility] [address] [facility] [address] [place] [address] Delia Kwan, PT [facility] Start: 02-24-2025 End: 02-24-2025 ambulatory 02/24/2025 6:00 PM EDT Treatment [facility] [address] [facility] [address] [place] [address] Ofelia Blakely, CROWN PRESSER [facility] Start: 02-15-2025 End: 02-15-2025 ambulatory 02/15/2025 6:00 PM EDT Treatment [facility] [address] [facility] [address] [place] [address] Kem Costa, CROWN PRESSER [facility] Start: 02-14-2025 End: 02-14-2025 Patient encounter procedure BIANCA RAPP Comment on above: Arrived Start: 02-08-2025 End: 02-08-2025 Patient encounter procedure 02/08/2025 4:00 PM EDT Office Visit [facility] [address] [place] [phone] Jovita Salas, CNM [address] [place], [place] [id number] [facility] Start: 02-01-2025 End: 02-01-2025 ambulatory [facility] Comment on above: Arrived Start: 01-27-2025 End: 01-27-2025 ambulatory [facility] Comment on above: Arrived Start: 01-24-2025 End: 01-24-2025 Evaluation 01/24/2025 6:00 PM EDT Evaluation [facility] [address] [place] [address] Delia Kwan, PT Sacrococcygeal disorders, not elsewhere [...] 12-03-2024 End: 12-03-2025 XR Abdomen Single view [facility] Healthcare Work Phone: Comment on above: Expected: 12/03/2024 , Expires: 12/03/2025 Start: 12-03-2024 End: 12-03-2024 Patient encounter procedure 12/03/2024 1:30 PM EDT Office Visit [facility] [address] [place] [phone] Ness Montez NP [address] [place] [address] [facility] Start: 08-10-2024 End: 08-10-2024 Patient encounter procedure [facility] Comment on above: Arrived Start: 05-10-2024 End: 05-10-2025 Insulin, fasting Insulin, fasting Lab Routine Normal gynecologic examination Screening for cervical cancer PCOS (polycystic ovarian syndrome) Expected: 05/10/2024 (Approximate), Expires: 05/10/2025 [facility] Healthcare Comment on above: Expected: 05/10/2024 (Approximate), Expires: 05/10/2025 Start: 05-10-2024 End: 05-10-2024 Patient encounter procedure 05/10/2024 2:00 PM EST Office Visit [facility] [address] [place] [phone] Jovita Salas, CNM [address] [place] [address] Arrived [facility] Comment on above: Arrived Start: 05-10-2024 End: 05-10-2025 THINPREP IMAGING PAP AND HPV DNA REFLEX HPV 16,18 THINPREP IMAGING PAP AND HPV DNA REFLEX HPV 16,18 Pathology and Cytology Routine Screening for cervical cancer Expected: 05/10/2024 (Approximate), Expires: 05/10/2025 [facility] Healthcare Work Phone: Comment on above: Expected: 05/10/2024 (Approximate), Expires: 05/10/2025 Start: 03-07-2024 Influenza vaccination Influenza Vacc ine (#1) [facility] Start: 05-19-2023 DTaP/Tdap/Td vaccine (7 - Td or Tdap) DTaP/Tdap/Td vaccine (7 - Td or Tdap) [facility] Start: 08-14-2022 [facility] Start: 2021 Screening for malign ant neoplasm of cervix Pap smear [facility] Start: 2018 Hepatitis C screening Hepatitis C sc reen [facility] Start: 2016 Screening for Chlamy rafael trachomatis Chlamydia/GC screen [facility] Start: 2015 HIV screening HIV screen [facility] Start: 2015 HPV vaccine (1 - 3-d ose series) HPV vaccine (1 - 3-dose series) [facility] Start: 2012 Depression Screen Depression Screen [facility] CBC panel - Blood by Automated count CBC Lab Routine PCOS (polycystic ovarian syndrome) Ordered: 05/10/2024 [facility] Comment on above: Ordered: 05/10/2024 Glucose measurement estimated from glycated hemoglobin [facility] Hemoglobin A1c/Hemoglobin.total in Blood [facility] Hemoglobin A1c/Hemoglobin.total in Blood Hemoglobin A1c Lab Routine PCOS (polycystic ovarian syndrome) Ordered: 05/10/2024 [facility] Comment on above: Ordered: 05/10/2024 Immunizations Immunization Date Immunization Notes Care Provider Fa [facility] 04-29-2024 SARS-COV-2 (COVID-19 ) vaccine, mRNA, spike protein, LNP, PF, anuj-sucrose, 30 mcg/0.3 mL Destinee Britton MD Work Phone: [facility] 04-29-2024 Seasonal, trivalent, recombinant, injectable influenza vaccine, preservative free Destinee Britton MD Work Phone: [facility] 04-29-2024 influenza virus vacc ine, unspecified formulation Delia Kwan PT [facility] 07-10-2019 Influenza, injectabl e, Madin Bhavana Canine Kidney, preservative free, quadrivalent Destinee Britton MD Work Phone: [facility] 07-10-2019 influenza, seasonal, injectable Becky Romeo Other [facility] 07-10-2019 influenza virus vacc ine, unspecified formulation Jovita Salas WILLOW Work Phone: [facility] 07-17-2018 Influenza, injectabl e, Madin Woodburn Canine Kidney, preservative free, quadrivalent Destinee Britton MD Work Phone: [facility] 03-02-2018 meningococcal polysaccharide (groups A, C, Y and W-135) diphtheria toxoid conjugate vaccine (MCV4P) Becky Hernandezjulia Other [facility] 05-19-2013 meningococcal polysaccharide (groups A, C, Y and W-135) diphtheria toxoid conjugate vaccine (MCV4P) Destinee Britton MD Work Phone: [facility] 05-19-2013 tetanus toxoid, redu latrice diphtheria toxoid, and acellular pertussis vaccine, adsorbed Destinee Britton MD Work Phone: [facility] 05-19-2013 varicella virus vaccine Destinee Britton MD Work Phone: [facility] 04-03-2006 diphtheria, tetanus toxoids and acellular pertussis vaccine, unspecified formulation Destinee Britton MD Work Phone: [facility] 04-03-2006 hepatitis B vaccine, pediatric or pediatric/adolescent dosage Destinee Britton MD Work Phone: [facility] 04-03-2006 measles, mumps and rubella virus vaccine Destinee Britton MD Work Phone: [facility] 04-03-2006 poliovirus vaccine, unspecified formulation Destinee Britton MD Work Phone: [facility] 04-03-2006 varicella virus vaccine Destinee Britton MD Work Phone: [facility] 03-03-2006 DTaP-hepatitis B and poliovirus vaccine Destinee Britton MD Work Phone: [facility] 03-03-2006 measles, mumps and rubella virus vaccine Destinee Britton MD Work Phone: [facility] 12-23-2001 measles, mumps and rubella virus vaccine Destinee Britton MD Work Phone: [facility] 09-17-2001 diphtheria, tetanus toxoids and acellular pertussis vaccine, unspecified formulation Destinee Britton MD Work Phone: [facility] 09-17-2001 haemophilus influenz ae type b vaccine, conjugate unspecified formulation Destinee Britton MD Work Phone: [facility] 2000 diphtheria, tetanus toxoids and acellular pertussis vaccine, unspecified formulation Destinee Britton MD Work Phone: [facility] 2000 haemophilus influenz ae type b vaccine, conjugate unspecified formulation Destinee Britton MD Work Phone: [facility] 2000 hepatitis B vaccine, pediatric or pediatric/adolescent dosage Destinee Britton MD Work Phone: [facility] 2000 poliovirus vaccine, unspecified formulation Destinee Britton MD Work Phone: [facility] 2000 haemophilus influenz ae type b vaccine, conjugate unspecified formulation Destinee Britton MD Work Phone: [facility] 2000 diphtheria, tetanus toxoids and acellular pertussis vaccine, unspecified formulation Destinee Britton MD Work Phone: [facility] 2000 poliovirus vaccine, unspecified formulation Destinee Britton MD Work Phone: [facility] 2000 diphtheria, tetanus toxoids and acellular pertussis vaccine, unspecified formulation Destinee Britton MD Work Phone: [facility] 2000 haemophilus influenz ae type b vaccine, conjugate unspecified formulation Destinee Britton MD Work Phone: [facility] 2000 hepatitis B vaccine, pediatric or pediatric/adolescent dosage Destinee Britton MD Work Phone: [facility] 2000 poliovirus vaccine, unspecified formulation Destinee Britton MD Work Phone: [facility] 2000 hepatitis B vaccine, pediatric or pediatric/adolescent dosage Destinee Britton MD Work Phone: [facility] Payers Date Payer Category Payer Unknown 2024 Unknown [id number] 2022 Blue Cross Blue Shield [id number] 2022 Self-pay [id number] 2022 Blue Cross Blue Shield 1.2.8 [id number] 15 2000 Unknown [id number] 2.16.84 0.1.575229.3.579.2.593 2000 Unknown [id number] 2.16.84 0.1.656318.3.579.2.593 2000 Unknown [id number] 2.16.84 0.1.632521.3.579.2.593 2000 Unknown [id number] 2.16.84 0.1.287912.3.579.2.593 2000 Unknown [id number] 2.16.84 0.1.369237.3.579.2.593 2000 Unknown [id number] 2.16.8 40.1.157443.3.579.2.173 2000 Unknown [id number] 2.16.8 40.1.242263.3.579.2.173 2000 Unknown [id number] 2.16.8 40.1.569134.3.579.2.173 2000 Unknown [id number] 2.16. 840.1.865298.3.579.2.1286 2000 Unknown [id number] 2.16. 840.1.047506.3.579.2.1286 2000 Unknown [id number] 2.16. 840.1.543260.3.579.2.1285 2000 Unknown [id number] 2.16. 840.1.085397.3.579.2.1285 2000 Unknown [id number] 2.16. 840.1.682409.3.579.2.1285 2000 Unknown [id number] 2.16. 840.1.650570.3.579.2.1285 2000 Unknown [id number] 2.16. 840.1.517441.3.579.2.1285 2000 Unknown [id number] 2.16. 840.1.229903.3.579.2.1285 2000 Unknown [id number] 2.16. 840.1.434940.3.579.2.1285 2000 Unknown [id number] 2.16. 840.1.371517.3.579.2.1285 2000 Unknown [id number] 2.16.8 40.1.542970.3.579.2.1285 2000 Unknown [id number] 2.16.8 40.1.085109.3.579.2.1285 2000 Unknown [id number] 2.16.8 40.1.528880.3.579.2.1285 2000 Unknown [id number] 2.16.8 40.1.642797.3.579.2.1285 2000 Unknown [id number] 2.16.8 40.1.439190.3.579.2.1285 2000 Unknown [id number] 2.16. 840.1.247198.3.579.2. 2000 Unknown [id number] 2.16. 840.1.132587.3.579.2. 2000 Unknown [id number] 2.16. 840.1.345204.3.579.2. 2000 Unknown [id number] 2.16. 840.1.058586.3.579.2.196 2000 Unknown [id number] 2.16. 840.1.455155.3.579.2.196 2000 Unknown [id number] 2.16. 840.1.812172.3.579.2.196 1959 Unknown [id number] 2.16.8 40.1.596271.3.579.2.531 Unknown [id number] 2.16.8 40.1.773681.3.579.2.531 Unknown [id number] 2.16.8 40.1.055003.3.579.2.531 Social History Date Type Detail Facility Tobacco smoking stat us FLIS Unknown if ever smoked [facility] Start: 2000 Sex Assigned At Female [facility] Start: 12-04-2023 End: 05-20-2024 Sex Assigned At [facility] Start: 10-10-2023 Tobacco smoking status FLIS Unknown if ever smoked [facility] Start: 06-26-2023 End: 05-20-2024 Tobacco smoking status FLIS Never smoked tobacco [facility] Start: 06-26-2023 [...] End: 12-03-2024 Alcoholic beverage intake Ex-drinker (finding) [facility] How often do you nee d to have someone help you when you read instructions, pamphlets, or other written material from your doctor or pharmacy [SILS] Never [facility] Do you belong to any clubs or organizations such as taoism groups, unions, fraternal or athletic groups, or [...] [facility] Start: 07-20-2024 Tobacco smoking status [facility] Ex-smoker [facility] [employer] History of tobacco use Current smoker [facility] [employer] History of tobacco use Cigarette Smoker B on [employer] Start: 2000 Sex assigned at Not on file [employer] Start: 08-16-2012 Sex Female (finding) [facility] [employer] How often do you nee d to have someone help you when you read instructions, pamphlets, or other written material from your doctor or pharmacy [SILS] Never [facility] Goals Date Patient Goal Desired Activity /State Clinical Notes 02-29-2020 to 02-28-2025 Delia Kwan, PT - 02/28/2025 6:00 PM EDTTelephone Encounter - Evon Loera - 02/15/2025 9:35 AM EDTTelephone Encounter - Evon Loera - 02/15/2025 9:35 AM EDT Note Date & Type Note Facility 02-28-2025 History of Presen t illness Narrative Images [...] in nature. Doing exercises at home. Pain: 3-10/14 Objective: PT Evaluation (01/24/2025) LUMBAR SPINE AROM: [...] into R LE/hip. Pt with moderate to severe tenderness right SIJ. Increase pain noted with prone hip extension, held this date. Will continue to progress as pt tolerates. Outcome Measure: Back Index: 25/50 Rehab Diagnosis: low back pain, bilateral hip pain and weakness, limited ROM and mobility Short Term Goal: To be met in 2 weeks Goal 1: Pt to be instructed in home exercise program. Mcc Goals: To be met in 10 weeks [...] sign below. Date: documented in this encounter [facility] 02-15-2025 Telephone encount er Note Jackson left at 9:13 am Ca, this is Jenn from [facility] in [place]. I am calling about a mutual patient. Edwige Patterson. Date of is 2000. I am calling about the [employer] tech 28 or the control you guys sent over the quantity on the prescription. They only come in packs at 28. So we need a quantity on that prescription to say 84 with 3 refills. If you could please either send over any prescription with the correct quantity or give us a callback that would be great. Our phone number here is [phone]. Again, this is Jenn from [facility] coming from [facility] for Edwige Evans move 2000 for the spring tech or generic, nor just with [employer], dial the control, calling the change quantity to 84 because they only come in back to 28 and we can not open the pack again, phone number [phone] if you want to call for change or send over a brand new prescription with the correct quantity of 84? Thank you. [facility] 02-15-2025 Miscellaneous Notes Formattin g of this note might be different from the original. Vm left at 9:13 am Ca, this is Jenn from [facility] in [place]. I am calling about a mutual patient. [...] be great. Our phone number here is [phone]. Again, this is Jenn from [facility] coming from a [facility] for Edwige Evans move 2000 for the spring tech or generic, nor just with [employer], dial the control, calling the change quantity to 84 because they only come in back to 28 and we can not open the pack again, phone number [phone] if you want to call for change or send over a brand new prescription with the correct quantity of 84? Thank you. documented in this encounter [facility] 02-14-2025 History of Presen t illness Narrative PROBLEM VISIT Edwige Patterson is 24 y.o. 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 Mcc Goals: To be met in 10 weeks [...] sign below. Date: documented in this encounter [facility] 01-06-2025 Evaluation note Diagnosis Onset Date Resolution Paresthesias acute January 06 2:55pm Pain of left sacroiliac joint acute January 11, 2025 9 :14am Pain of right sacroiliac joint acute January 11, 2025 9:14am Paresthesias acute January 11 9:14am [facility] Work Phone: 1(737) 439-171005-30-2025 History of Present illness Narrative* Ness Montez [...] prompting another visit to the ER in [place]. A diagnosis of viral gastroenteritis was made [...] HPI Flowsheet Row Documentation from 11/30/2024 in [facility] with Lorin [place], [place] Hospital Information ED, Hospital or Nursing Home Facility Discharge? ED Patient has been contacted within 2 days of being seen in the ED Yes Diagnosis Viral Infection Discharge Date 11/28/24 Discharged To: Home Setting Discharge Hospital [facility] Engagement Call Start Time 1528 Admission [...] fluid intake and abstain from smoking marijuana. Oemo-itq-hyjkcmm MiraLAX can be used if constipation persists. [...] or other abnormalities. - Advised to use sfqp-ucr-fwphzvi MiraLAX if constipation persists and to increase fluid intake. - Blood work will be done to assess kidney and liver function. No follow-ups on file. [facility] [id number] Hospital Discharge instructions* Discharge Instructions* Alicia Dunn [...] sent through Care Everywhere. * Back [facility] ([place]) [facility] of Present illness Narrative* Jovita Salas CNM - 08/10/2024 4:00 PM EST PROBLEM VISIT Edwige Patterson is 24 y.o. 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 * Back Pain ([place]) [facility] Discharge instructions* Discharge Instructions* Yoli Lal [...] through Care Everywhere. * Strain or Sprain (Guamanian) [facility] Telephone encounter Note* Telephone Encounter - Bess Lomeli - 06/02/2024 1:06 PM EST Pt called and left a vm at 12:41 pm today She said she has been waiting for her BC to be called over to [facility] but they haven't received anything. She asked if that can please be sent over. [id number] Miscellaneous Notes* Telephone Encounter - Bess Yani - 06/02/2024 1:06 PM EST Pt called and left a vm at 12:41 pm today She said she has been waiting for her BC to be called over to [facility] but they haven't received anything. She asked if that can please be sent over. documented in this encounterMercy Hospital [id number] History of Present illness Narrative* Destinee Britton [...] should contact the clinic. documented in this encounterMercy Hospital [id number] History of Present illness Narrative* Destinee Britton [...] child. 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 She is getting her master's degree [...] bite block during sleep. documented in this encounterMercy Hospital [id number] History of Present illness Narrative* ALEJANDRA Cruz - 05/10/2024 2:00 PM EST YEARLY HPI: This is a established patient. Chief Complaint Patient presents with Gynecologic Exam Here for annual exam. 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 [employer] Other 06-05-2023 Evaluation note* Encounter Date Diagnosis [...] no improvement in 5 to 7 days [employer] Other 02-06-2023 Evaluation note* Encounter Date Diagnosis [...] Screening for deficiency anemia (ICD-10 - Z13.0) [employer] Other 08-05-2022 Evaluation note* Encounter Date Diagnosis [...] understanding and is agreeable to treatment plan. [employer] Other 08-03-2022 Evaluation note* Encounter Date Diagnosis [...] no improvement in 2 to 3 days. [employer] Other 12-28-2021 Evaluation note* Encounter Date Diagnosis Assessment Notes Treatment Notes Treatment Clinical Notes Jun, Exposure to COVID-19 virus (ICD-10 - Z20.822) Jun, COVID-19 (ICD-10 - U07.1) Patient's rapid test is positive for Covid-19. She is given instructions for quarantine and supportive care. Call immediately for change/worsening or with questions/concerns. [employer] Other 11-13-2020 NotePROCEDURE: XR ANKLE RT MIN 3 VIEWS COMPARISON: 05/19/2020 intraprocedural, 04/02/2020 HISTORY: Postoperative care FINDINGS: BONES:No fracture, acute abnormality, or significant arthropathy. SOFT TISSUES:Post procedural soft tissue swelling, subcutaneous air and lateral surgical elaina EFFUSION:None visible. OTHER: Negative. IMPRESSION: Postprocedural changes Electronically authenticated by: ROGE THACKER Date: 2020-05-19 14:02[facility]11-13-2020 NotePROCEDURE: XR ANKLE RT 2V COMPARISON: 02/29/2020 [...] Electronically authenticated by: ROGE THACKER Date: 2020-05-19 14:00[facility]11-01-2020 History general Narrative - Reported* Type Description Date Medical History Chronic back pain Medical History Hx of concussion Medical History acne Medical History chronic depression Surgical History ankle reconstruction- right 2019 [employer] Other 09-17-2020 NotePROCEDURE: XR FOOT RT MIN 3 VIEWS COMPARISON: 02/29/2020 HISTORY: Pain in right foot FINDINGS: BONES:Stable intra-articular transverse fracture base of the fifth metatarsal. No acute fracture or dislocation SOFT TISSUES:Negative. No visible soft tissue swelling. EFFUSION:None visible. OTHER: Negative. IMPRESSION: Stable healing intra-articular transverse fracture base of the fifth metatarsal Electronically authenticated by: ROGE THACKER Date: 2020-03-23 10:22 [id number] NotePROCEDURE: XR ANKLE RT MIN 3 VIEWS, [...] Electronically authenticated by: ROGE THACKER Date: 2020-02-29 12:57 [id number] NotePROCEDURE: XR ANKLE RT MIN 3 VIEWS, [...] Electronically authenticated by: ROGE THACKER Date: 2020-02-29 12:57[facility]Evaluation noteNo InformationNort [employer] Other Evaluation noteNo assessment information available [facility] Work Phone: Evaluation note* Diagnosis Onset Date Resolution Status Bilateral acute otitis media resolved [facility] Work Phone: Evaluation note* Diagnosis PCOS (polycystic ovarian syndrome)- Primary Polycystic ovaries Normal gynecologic examination Screening for cervical cancer Screening for malignant neoplasm of the cervix Other acne Hirsutism documented in this encounter [facility] HealthcareEvaluation note* Diagnosis Candidiasis- Primary Acute nausea with nonbilious vomiting documented in this encounter [facility] HealthcareEvaluation note* Diagnosis Candidiasis- Primary documented in this encounter [facility] HealthcareEvaluation note* Diagnosis Encounter for initial prescription of contraceptive pills documented in this encounter [facility] HealthcareEvaluation note* Diagnosis Strain of lumbar region, initial encounter- Primary Abnormal computed tomography of lumbar spine [facility] Diagnosis Acute exacerbation of chronic low back pain- Primary [facility] this [facility] Diagnosis Acute exacerbation of chronic low back pain- Primary [facility] in this [facility]* Diagnosis Nausea- Primary Nausea alone Pain of upper abdomen documented in this encounter [facility] HealthcareEvaluation note* Diagnosis Unwanted fertility- Primary PCOS (polycystic ovarian syndrome) Polycystic ovaries documented in this encounter [facility] HealthcareEvaluation note* Diagnosis Onset Date Resolution Status Admit Date Paresthesias acute January 06 2:55pm [facility] Work Phone: Evaluation note* Diagnosis Sacrococcygeal disorders, not elsewhere classified- Primary documented in this encounter [facility] HealthcareEvaluation note* Diagnosis Sacrococcygeal disorders, not elsewhere classified- Primary [facility]* Diagnosis Sacrococcygeal disorders, not elsewhere classified- Primary [facility]* Diagnosis PCOS (polycystic ovarian syndrome)- Primary Polycystic ovaries Encounter for initial prescription of contraceptive pills Insulin resistance Other abnormal glucose [facility]* Diagnosis Sacrococcygeal disorders, not elsewhere classified- Primary [facility]* Diagnosis Sacrococcygeal disorders, not elsewhere classified- Primary documented in this encounter [facility] HealthcareHistory general Narrative - Reported* Type Description Date Medical History Chronic back pain Medical History Hx of concussion Medical History acne [facility] [employer] Other History general Narrative - Reported* Type Description Date Medical History Chronic back pain Medical History Hx of concussion Medical History acne Medical History chronic depression [facility] [employer] Other Reason for referral (narrative)No reason for referral information availablePark[facility] Work Phone: Rebynf for visit Narrative* Rehabilitation - Outpatient (Routine) - Authorized Specialty Diagnoses / Procedures Referred By Contac t Referred To Contact Physical Therapy Diagnoses Sacrococcygeal disorders, not elsewhere classified Procedures [place] PHYSICAL THERAPY EVALUATION LOW COMPLEX 20 MINS [place] OFFICE/OUTPATIENT NEW HIGH MDM 60 MINUTES Feliz Musa MD [address] [place] [address], [address] [place] [id number] Phone: tel: fax: Delia Kwan, PT Referral ID Status Reason Start Date Expiration Date V isits Requested Visits Authorized [id number] Authorized 01/24/2025 03/24/2025 6 6 [facility] HealthcareReason for visit Narrative* Rehabilitation - Outpatient (Routine) - Closed Specialty Diagnoses / Procedures Referred By Contac t Referred To Contact Physical Therapy Diagnoses Sacrococcygeal disorders, not elsewhere classified Procedures [place] PHYSICAL THERAPY EVALUATION LOW COMPLEX 20 MINS [place] OFFICE/OUTPATIENT NEW HIGH MDM 60 MINUTES Feliz Musa MD [address] [place] [address], [address] [place] [address] Phone: tel: fax: Delia Kwan, MARYCARMEN Referral ID Status Reason Start Date Expiration Date Visits Re quested Visits Authorized [id number] Closed 01/24/2025 03/24/2025 6 6 [facility] Advance Directives Advance Directive Response Recorded Date/ [...] 6:50a m EMG BLE per Jazmin Beau TIMBER SETTER January 06 2:55pm Reason for Visit Admit Date Paresthesias January 06, 2025 2:55p m Chief Complaint Admit Date Amb Documentation December 01, 2024 6:50a m EMG BLE per Jazmin Beau TIMBER SETTER January 06 2:55pm low back pain January [...] and content) DATE CREATED AUTHOR 01/04/2021 [facility] DATE CREATED AUTHOR AUTHOR'S ORGANIZ ATION 06/27/2021 [facility] dical Specialist DATE CREATED AUTHOR AUTHOR'S ORGANIZ ATION 12/16/2022 [facility] DATE CREATED AUTHOR AUTHOR'S ORGANIZ ATION 12/01/2024 [facility] DATE CREATED AUTHOR AUTHOR'S ORGANIZ ATION 02/25/2025 [facility] DATE CREATED AUTHOR AUTHOR'S ORGANIZ ATION 02/26/2025 [facility] REASON FOR VISIT (unrecogniz ed section and [...] since 2016. MRI completed on Friday in [place]. Reason Comments Back Pain Bilateral lower back [...] Status: Active Member Role Status Dates Becky Romeo DO Primary Care Provider Active Team Status: Active Member Role Status Dates Becky Romeo DO Primary Care Provider Active Start: December 01, 2024 Lacey Morton LPN Attending Provider Active Star t: December 01, 2024 Team Status: Inactive Member Role Status Dates Becky Romeo DO Primary Care Provider Active Start: January 06, 2025 End: January 06, 2025 Mack Akhtar DO Attending Provider Active Start: January 06, 2025 End: January 06, 2025 Team Status: Inactive Member Role Status Dates PHYSICIAN NO FAMILY Primary Care Provider Active Becky Romeo DO Attending Provider Active Team Status: Active Member Role Status Dates PHYSICIAN NO FAMILY Primary Care Provider Active Team Status: Inactive Member Role Status Dates PHYSICIAN NO FAMILY Primary Care Provider Active LOU Morgan Attending Provider Active Team Status: Inactive Member Role Status Dates Grisel Andres APRN Attending Provider Active Start: October 10, 2023 End: October 10, 2023 Becky Romeo DO Primary Care Provider Active Start: October 10, 2023 End: October 10, 2023 Team Status: Inactive Member Role Status Dates Becky Romeo DO Primary Care Prov valerie Attending Provider Active Start: November 11, 2023 End: November 11, 2023 [employer] Program[employer] Relationship Specialty Start Date End Date Destinee Britton MD [address] [facility] [place] [address] PCP - General Family Medicine 11/12/22 [employer] Program[employer] Relationship Specialty Start Date End Date Destinee Britton MD [address] [facility] [place] [address] PCP - General Family Medicine 11/12/22 [employer] Program[employer] Relationship Specialty Start Date End Date Destinee Britton MD [address] [facility] [place] [address] PCP - General Family Medicine 11/12/22 [employer] Programmer Relationship Specialty Start Date End Date Destinee Britton MD [address] [facility] [place] [address] PCP - General Family Medicine 11/12/22 [employer] Programmer Relationship Specialty Start Date End Date Destinee Britton MD [address] [facility] [place] [address] PCP - General Family Medicine 11/12/22 [employer] Programmer Relationship Specialty Start Date End Date Becky Romeo DO NPI: [address] [place] [address];[address] [place] [address] PCP - General Family Medicine 07/20/24 [employer] Programmer Relationship Specialty Start Date End Date Becky Romeo DO NPI: [address] [place] [address];[address] [place] [address] PCP - General Family Medicine 07/20/24 [employer] Programmer Relationship Specialty Start Date End Date Becky Romeo DO NPI: [address] [place] [address];[address] [place] [address] PCP - General Family Medicine 07/20/24 [employer] Programmer Relationship Specialty Start Date End Date Destinee Britton MD [address] [facility] [place] [address] PCP - General Family Medicine 11/12/22 [employer] Programmer Relationship Specialty Start Date End Date Destinee Britton MD [address] [facility] [place] [address] PCP - General Family Medicine 11/12/22 [employer] Programmer Relationship Specialty Start Date End Date Destinee Britton MD [address] [facility] [place] [address] PCP - General Family Medicine 11/12/22 Team Status: Inactive Member Role Status Dates Becky Romeo DO Primary Care Provider Active Start: January 11, 2025 End: January 11, 2025 Feliz Musa MD Attending Provider Active Star t: January 11, 2025 End: January 11, 2025 [employer]phi Programmer Relationship Specialty Start Date End Date Destinee Britton MD [address] [facility] [place] [address] PCP - General Family Medicine 11/12/22 Delphi Programmer Relationship Specialty Start Date End Date Destinee Britton MD [address] [facility] [place] [address] PCP - General Family Medicine 11/12/22 [employer]phi Programmer Relationship Specialty Start Date End Date Destinee Britton MD [address] [facility] [place] [address] PCP - General Family Medicine 11/12/22 [employer] Programmer Relationship Specialty Start Date End Date Destinee Britton MD [address] [facility] [place] [address] PCP - General Family Medicine 11/12/22 [employer]phi Programmer Relationship Specialty Start Date End Date Destinee Britton MD [address] [facility] [place] [address] PCP - General Family Medicine 11/12/22 Delphi Programmer Relationship Specialty Start Date End Date Destinee Britton MD [address] [facility] [place] [address] PCP - General Family Medicine 11/12/22 [employer]phi Programmer Relationship Specialty Start Date End Date Destinee Britton MD [address] [facility] [place] [address] PCP - General Family Medicine 11/12/22 [employer] Programmer Relationship Specialty Start Date End Date Destinee Britton MD [address] [facility] [place] [address] PCP - General Family Medicine 11/12/22 [employer] Programmer Relationship Specialty Start Date End Date Destinee Britton MD [address] [facility] [place] [address] PCP - General Family Medicine 11/12/22 [employer] Programmer Relationship Specialty Start Date End Date Destinee Britton MD [address] [facility] [place] [address] PCP - General Family Medicine 11/12/22 Goals [...] 10 mg, Oral, ONCE, 1 dose, On Tu07/20/24 at 1615 1615 (Given - Provid er: Ruth Cobos RN) dexAMETHasone (DECADRON) injection 10 mg (COMPLETED) 10 mg, IntraVENous, ONCE, On Fri07/20/24 at 1615, For 1 dose 1615 (Given - Provid er: Ruth Cobos RN) ketorolac (TORADOL) injection 15 mg (COMPLETED) 15 mg, IntraVENous, ONCE, 1 dose, On Tu07/20/24 at 1615, Do not administer for more [...] BE BASED ON THE PRIMARY CLINICAL RECORDS. [employer] [facility]. provides no warranty or guarantee of the accuracy or completeness of information in this document.
--- NOTE | 2025-03-03 09:37 | PM.CN ---
Consult Note: HPI Data of Consult Patient: known to practice within the last 3 years Requesting Physician: Jazmin Yanez NP Primary Care Provider: Vidal Romeo, DO Consult Narrative Reason for consult: f/u Narrative: Edwige tellez pleasant 24 year old female presents for evaluation of chronic low back pain secondary to bulging disc, lumbar ddd, and lumbar spondylosis. continues to utilize heat, ice, baclofen. cannot take tylenol due to elevated liver enzymes. pain today 5/10 increasing to 8/10 in low back. increased pain standing, walking, sitting, with activity, and sleep. finds benefit to PRN chiropractor care. recently underwent bilateral SIJ injection with >50% improvement ongoing cc:: CC: Jazmin Yanez NP Review of Systems ROS Musculoskeletal Reports: back pain and joint pain PFSH PFS Medical History (Updated 02/10/25 @ 08:45 by Jazmin Yanez NP) Low back pain ?M54.50 - Low back pain, unspecified (ICD-10) Depression ?F32.A - Depression, unspecified (ICD-10) PCOS (polycystic ovarian syndrome) ?E28.2 - Polycystic ovarian syndrome (ICD-10) Surgical History History of ankle surgery ?Z98.890 - Other specified postprocedural states (ICD-10) Social History Little interest or pleasure in doing things: not at all Feeling down, depressed, or hopeless: not at all Meds Home Medications and Allergies Home Medications ?Medication ?Instructions ?Recorded ?Confirmed ?Type bupropion HCl 300 mg 24 hr tablet, 300 mg PO DAILY 08/16/24 02/21/25 History extended release etodolac 400 mg tablet (Lodine) 400 mg PO BID 08/16/24 02/21/25 History norgestimate 0.18 mg/0.215mg/0.25 1 tab PO DAILY 08/16/24 02/21/25 History mg-ethinyl estradiol 0.025 mg tablet (Cmm-Rl-Bsiodm) ondansetron 4 mg disintegrating 4 mg PO Q6H PRN nausea and 11/28/24 02/21/25 Rx tablet vomiting #20 tabs baclofen 10 mg tablet 10 mg PO Q8H PRN spasms 12/27/24 02/21/25 History Allergies Allergy/AdvReac Type Severity Reaction Status Date / Time No Known Drug Allergies Allergy Verified 02/21/25 11:36 Exam Constitutional Documenting provider has reviewed patient's vital signs: yes Common normals: no apparent distress, oriented x3, healthy appearing, alert and well nourished General appearance: cooperative HENMT Common normals: normocephalic, hearing grossly normal bilaterally and moist oral mucous membranes Head and scalp: normocephalic Eye Common normals: PERRL Pupil: PERRL Neck & C-Spine Common normals: full ROM General: normal visual inspection Chest Common normals: inspection of chest normal Respiratory Common normals: normal respiratory effort, no retractions and no use of accessory muscles Back & Pelvis Lumbar spine/lower back: ROM limited, pain with ROM, lumbar spinal tenderness and straight leg raise negative bilaterally Other: strength 5/5 in BLE positive L4-S1 facet loading and tenderness Neuro Common normals: oriented x3 Sensorium/orientation: alert Psych Common normals: mental status grossly normal, thought process normal, cooperative, affect normal, speech normal and activity/motor behavior normal Speech: normal speech Thought process: normal thought process Results Additional Findings Additional findings: If on a controlled substance or opioids, I have checked an [place]AR[place] report on this patient and there are no aberrancies noted in the prescribing history.??If on a controlled substance or opioid a drug screen was completed and reviewed within the last year, and if there has not been a drug screen completed we ordered one today to monitor higher risk, state monitored pain medication use. As part of providing excellent, safe, comprehensive care, the following was completed at our patient's visit: 1. A medication reconciliation and review to ensure accurate knowledge of current/active medications, including asking our patients to inform us about any lkkr-ohq-iobidws medications or herbal remedies/nutritional supplements/alternative remedies. 2. A review to specifically ensure our patients have had annual screening for screening for depression, screening for tobacco use, and screening for unhealthy alcohol use. For concerning screenings had a discussion with the patient, provided patient education, and recommended follow-up with primary care provider when appropriate. If patient noted with a risk of falling, they received education on strength, gait, and balance training to prevent future risk of falling. Portions of this note may have been carried over from the previous visit and updated as appropriate. Please note this office utilizes paper charting in addition to the electronic medical record. A list of current medications, vitals, and PMH is available there as the clinical staff outside of myself do not have access to [facility] charting during the clinic day operations. As part of providing quality comprehensive care the current medications, vitals, and PMH were reviewed in the paper chart. Assessment and Plan Assessment and Plan (1) Lumbar spondylosis: Assessment and Plan: The patient has had over 3 months of moderate to severe low back pain with functional impairment and inadequate response to conservative care including NSAIDS (unless there are contraindication such as concurrent blood thinners), multiple oral or topical pain medications, and home exercise program/physical therapy.? Patient has completed >6 weeks of guided home exercise program and/or formal physical therapy program without relief of their symptoms.? The Oswestry Disability Index was completed, and the patient scored a 32%.?? ?The procedure will be completed with fluoroscopic guidance.? (2) Myalgia, other site: (3) Sacroiliitis: Plan bilateral L4-5 L5-S1 mbb x2 in consideration of RFA for facet mediated low back pain continue PT and dry needling/massage, finding mild benefit continue baclofen 10mg hs prn pain/spasms f/u after each injection
== END 2025-03-03 09:14 | disposition home or self-care (01) ==
LOC: PM 09:13
PROVIDERS: PCP Student in an Organized Health Care Education/Training Program; Visit Provider Nurse Practitioner
DX: M47.816 Spondylosis without myelopathy or radiculopathy, lumbar region (principal); M79.18 Myalgia, other site; M46.1 Sacroiliitis, not elsewhere classified
CPT/HCPCS: G0463

== ENCOUNTER 2025-03-15 10:53 | Emergency (ER) | payer BC, SELFPAY ==
--- OUTSIDE RECORDS SUMMARY | 2024-08-03 07:45 | XMS_ITS ---
Author Organization [facility] Address [address] [place] [address] Care Team Providers Care Java Tech Lead Name Role Phone Nancy Delcid Unavailable [phone] REASON FOR VISIT Lumbar radiculopathy Encounters Encounter Location Date Provider Diagnosis [facility] [address] [place] [address] 08/03/2024 Inherman xxTavon Lumbar radiculopathy M54.16 Assessments Encounter Date Diagnosis (ICD Code) Assessment Notes Treatment Notes Treatment Clinical Notes Section Notes 08/03/2024 Lumbar radiculopathy (ICD-10 - M54.16) Plan Of Treatment Next Appt Details Follow Up: SAME DAY, Reason: Progress Notes * ELADIA SIERRADOB:1999 (24 yo F)Acc No.[id number]:08/03/2024 MRI Patient: ELADIA ZULETA Provider: Ambrocio Montes De Oca MD :2000 A ge:24 Y S ex:Female Date:08/03/2024 Address:[address] [place], [place] [phone] Subjective: * Chief Complaints: * 1 . Lumbar radiculopathy. * Medical History: Objective: * Vitals: Assessment: * Assessment: 1. L umbar radiculopathy - M54.16 (Primary) Plan: * Treatment: * Procedure Codes: 7 2148 MRI Lumbar Spine w/o Dye * Follow Up: Forms: * Images: * Electronic signature of Marianela Delcid MD on 03/15/2025 at 11:02 AM EDT Sign off status: Pending * Provider: Ambrocio Montes De Oca MD Date: 0 08/03/2024 Generated for Nii amezquita/Judy/Monica on: 0 03/15/2025 11:02 AM EDT
--- OUTSIDE RECORDS SUMMARY | 2024-08-24 07:15 | XMS_ITS ---
Author Organization [facility] Address [address] [place] [address] Care Team Providers Care Woodwind Reeds Cutter Name Role Phone rodrigoMaxxKelinNancy Cruz Unavailable Edgar Patricio Unavailable [phone] Allergies No Known Allergies REASON FOR VISIT Lumbar Disc Herniation- Dr Cruz Medications Medication SIG (Take, Route, Frequency, Duration) Notes Start Date End Date Status CETIRIZINE HCL 10 MG TAKE 1 TABLET BY [facility] EVERY DAY for 30 Days Not-Taking buPROPion [...] smoker Encounters Encounter Location Date Provider Diagnosis [facility] [address] [place] [address] 08/24/2024 Edgar Patricio Plan Of Treatment No Information Progress Notes * ELADIA SIERRADOB:1999 (24 yo F)Acc No.[id number]:08/24/2024 Patient: ELADIA ZULETA Provider: Brisa Patricio MD :2000 A ge:24 Y S ex:Female Date:08/24/2024 Address:[address] [place], [place] [phone] Subjective: * Chief Complaints: * 1 . [...] Electronic signature of Edgar Patricio MD on 03/15/2025 at 11:02 AM EDT Sign off status: Pending * Provider: Brisa Patricio MD Date: 0 08/24/2024 Generated for Nii amezquita/Judy/Monica on: 0 03/15/2025 11:02 AM EDT
--- OUTSIDE RECORDS SUMMARY | 2024-09-06 09:00 | XMS_ITS ---
Author Organization [facility] Address [address] [place] [address] Care Team Providers Care Dye Automation Operator Name Role Phone rodrigoNabilabhishekNancy Cruz Unavailable Edgar Patricio Unavailable [phone] REASON FOR VISIT Lumbar Disc herniation Dr Cruz Encounters Encounter Location Date Provider Diagnosis [facility] [address] [place] [phone] 09/06/2024 Edgar Patricio Plan Of Treatment No Information Progress Notes * ELADIA SIERRADOB:1999 (24 yo F)Acc No.[id number]:09/06/2024 Patient: ELADIA ZULETA Provider: Brisa Patricio MD :2000 A ge:24 Y S ex:Female Date:09/06/2024 Address:[address] [place], [place] [phone] Subjective: * Chief Complaints: * 1 . Lumbar Disc herniation Dr Cruz. * Medical History: Objective: * Vitals: Assessment: Plan: * Treatment: Forms: * Images: * Electronic signature of Edgar Patricio MD on 03/15/2025 at 11:02 AM EDT Sign off status: Pending * Provider: Brisa Patricio MD Date: 0 09/06/2024 Generated for Shamari alirio/Judy/eTransmitting on: 0 03/15/2025 11:02 AM EDT
--- OUTSIDE RECORDS SUMMARY | 2025-02-28 18:00 | XMS_ITS | Encounter Summary ---
Author Organization [facility] Address [address] [place] [address] Care Team Providers Care Culled Fruit Packer Name Role Phone Destinee Britton MD Primary Care Provider [phone] Reason for Visit * Rehabilitation - Outpatient (Routine) - Closed Specialty Diagnoses / Procedures Referred By Contzoraida t Referred To Contact Physical Therapy Diagnoses Sacrococcygeal disorders, not elsewhere classified Procedures [place] PHYSICAL THERAPY EVALUATION LOW COMPLEX 20 MINS [place] OFFICE/OUTPATIENT NEW HIGH MDM 60 MINUTES Feliz Musa MD [address] [place] [address], [address] [place] [address] Phone: tel: fax: Delia Kwan PT Referral ID Status Reason Start Date Expiration Date Visits Re quested Visits Authorized [id number] Closed 01/24/2025 03/24/2025 6 6 Encounter Details Date Type Department Care Team (Latest Contact Info) Description 02/28/2025 6:00 PM EDT Treatment [facility] [address] [facility] [address] [place] [address] Delia Kwan PT Sacrococcygeal disorders, not elsewhere [...] week 05/20/2024 How often do you attend baptism or lutheran serv ices? Never 05/20/2024 Do you belong to any clubs o r organizations such as baptism groups, unions, fraternal or athletic groups, or [...] were you homeless or living in a fci (including now)? No 05/20/2024 Comments No Sex [...] to be instructed in home exercise program. [facility] Goals: To be met in 10 weeks [...] Care Team (Late st Contact Info) Description 03/15/2025 5:30 PM EDT Treatment [facility] [address] [place] [address] Ryan Barger, FLEET SERVICE CLERK 03/21/2025 1:00 PM EDT Treatment [facility] [address] [place] [address] Ryan Barger, FLEET SERVICE CLERK 03/24/2025 6:00 PM EDT Treatment [facility] [address] [place] [address] Ofelia Blakely, FLEET SERVICE CLERK 03/29/2025 5:30 PM EDT Treatment [facility] [address] [place] [address] Ryan Barger, FLEET SERVICE CLERK 04/04/2025 5:30 PM EDT Treatment [facility] [address] [place] [address] Delia Kwan, PT 04/11/2025 5:30 PM EDT Treatment [facility] [address] [place] [address] Delia Kwan, PT 08/15/2025 5:30 PM EST Office Visit [facility] [address] [place] [id number] Jovita Salas, WILLOW [address] [place], [place] [id number] documented as of this encounter Visit Diagnoses Diagnosis Sacrococcygeal disorders, not elsewhere classified- Primary documented in this encounter Care Teams Culled Fruit Packer Relationship Specialty Start Date End Date Destinee Britton MD [address] [place], [place] [id number] PCP - General Family Medicine 11/12/22 documented as of this encounter
--- OUTSIDE RECORDS SUMMARY | 2025-03-02 17:30 | XMS_ITS | Encounter Summary ---
Author Organization [facility] Address [address] [place] [address] Care Team Providers Care Section Chief Name Role Phone Destinee Britton MD Primary Care Provider [phone] Reason for Visit * Rehabilitation - Outpatient (Routine) - Closed Specialty Diagnoses / Procedures Referred By Donya t Referred To Contact Physical Therapy Diagnoses Sacrococcygeal disorders, not elsewhere classified Procedures UT PHYSICAL THERAPY EVALUATION LOW COMPLEX 20 MINS UT OFFICE/OUTPATIENT NEW HIGH MDM 60 MINUTES Feliz Musa MD [address] [place] [address], [address] [place] [address] Phone: tel: fax: Delia Kwan PT Referral ID Status Reason Start Date Expiration Date Visits Re quested Visits Authorized [id number] Closed 01/24/2025 03/24/2025 6 6 Encounter Details Date Type Department Care Team (Latest Contact Info) Description 03/02/2025 5:30 PM EDT Treatment [facility] [address] [facility] [address] [place] [address] Ryan Barger PTA Sacrococcygeal disorders, not elsewhere [...] How often do you attend jainism or taoism serv ices? Never 05/20/2024 Do [...] Recorded Patient Health Questionnaire-2 Score 0 05/20/2024 [facility] - [...] any time in the past 12 m [facility], were you homeless or living in a senior care (including now)? No 05/20/2024 Comments No Sex and Gender Information Value Date Recorded Sex Assigned at Female 06/25/2023 1:54 PM EST Legal Sex Female 6:57 PM EDT Gender Identity Female 06/25/2023 1:54 PM EST Sexual Orientation Not on file documented as of this encounter Progress Notes * Ryan Barger, EXERCISE TEACHER - 03/02/2025 5:30 PM EDT Images from the original note were not included. Physical Therapy Progress Visit Patient Name: Edwige Patterson Today's Date: 03/02/2025 Encounter Diagnoses Name Primary? Sacrococcygeal disorders, not elsewhere classified Yes Visit number: 6 Timed Code Treatment: 40 minutes Total Treatment Time: 50 minutes Time In: 1730 Time Out: 0 History: Pt states she has been having [...] back pain Subjective: Pt states feeling better from last session MFR. Currently has some stabbing along the lumbar spine. Pt authorization expires after today's session. Pt reports she would like to continue therapy and will ask her pain management doctor at next appointment. Pain: 5/10 right side of sacral region. Objective: PT Evaluation (01/24/2025) LUMBAR SPINE AROM: [...] pt in prone, PA mobs, sacral distractions, MFR/TPR to R piriformis and proximal glute max, to reduce muscular tone. Therapeutic Exercise: (30 minutes) Guided pt through Hank phase I ther and hip/core ex per gridto improve lumbar stability, strength and functional mobility. Therapeutic Activity: Exercises to improve dynamic activities, functional tasks, functional mobility to return to prior activity level as needed. Neuromuscular re-education: Balance Training, Muscle Facilitation, Dynamic Stability, Core Stabilization, and Blood Flow Restriction Training (BFRT) as needed. Modalities: (10 minutes ) HP in prone post session to reduce inflammation and muscle soreness Assessment: MMT: Bilateral hips 4/5; core strength is fair Lumbar ROM: flexion: fingers to knees with increase right lumbar pain, Extension: mild discomfort end range extension Pt is 24 y/o female with complaints of chronic low back pain with radicular pain into R LE/hip. Pt with moderate to Moderate tenderness right SIJ. Increase pain noted with prone hip extension, held again. Able to tolerance bridges (low reps) and standing hip Ext. Will continue to progress as pt tolerates. Pt is making progress towards LTGs and will continue to benefit from therapy to reduce pain and progress pelvic and lumbar stability needed to reduce pain. Outcome Measure: Back Index: 25/50, (03/02/25) 15 Rehab Diagnosis: low back pain, bilateral hip pain and weakness, limited ROM and mobility Short Term Goal: To be met in 2 weeks Goal 1: Pt to be instructed in home exercise program. Prison Goals: To be met in 10 weeks Goal 1: Pt to report independence and compliance with home program. Goal 2: Pt to report pain no greater than 2/10 with function tasks, ADL's, and work related activities. Progression Goal 3: Pt to have full trunk ROM without complaints of increase pain at end ranges to assist with functional tasks. Progression Goal 4: Pt to score no greater than 10/50 on Back Index indicating improved QOL. Progression Goal 5: Pt to achieve 4+/5 strength bilateral hips to assist with functional tasks such as squatting. Progression Goal 6: Pt to demo good core strength for improved lumbar stability. Progression Pt will benefit from skilled PT for 1-2x/week from 01/24/2025 to 04/18/2025 to address the above impairments. I hereby deem this POC medically necessary. Please sign below. Date: Cosigned by Delia Kwan PT at 03/08/2025 3:48 PM EDT documented in this encounter Plan of Treatment Upcoming Encounters Date Type Department Care Team (Late st Contact Info) Description 03/15/2025 5:30 PM EDT Treatment [facility] [address] [facility] [address] [place] [address] Ryan Barger PTA 03/21/2025 1:00 PM EDT Treatment [facility] [address] [place] [address] [place] [address] Ryan Barger, EXERCISE TEACHER 03/24/2025 6:00 PM EDT Treatment [facility] [address] [facility] [address] [place] [address] Ofelia Blakely, EXERCISE TEACHER 03/29/2025 5:30 PM EDT Treatment [facility] [address] [facility] [address] [place] [address] Ryan Barger, EXERCISE TEACHER 04/04/2025 5:30 PM EDT Treatment [facility] [address] [facility] [address] [place] [address] Delia Kwan, PT 04/11/2025 5:30 PM EDT Treatment [facility] [address] [facility] [address] [place] [address] Delia Kwan, PT 08/15/2025 5:30 PM EST Office Visit [facility] [address] [place] [address] Jovita Salas, ALEJANDRA [address] [place] [address] documented as of this encounter Visit Diagnoses Diagnosis Sacrococcygeal disorders, not elsewhere classified- Primary documented in this encounter Care Teams Section Chief Relationship Specialty Start Date End Date Destinee Britton MD [address] [place] [address] PCP - General Family Medicine 11/12/22 documented as of this encounter
[2025-03-15 10:58] VITALS: BP 120/66; PULSE 68; TEMP 37.2; O2SAT 96; BMI 37.3
--- OUTSIDE RECORDS SUMMARY | 2025-03-15 11:02 | XMS_ITS | Encounter Summary ---
Author Organization [facility] Address [address] [facility] [place] [address] Care Team Providers Care Entry Level Financial Analyst Name Role Phone Destinee Britton MD Primary Care Provider [phone] Encounter Details Date Type Department Care Team (Late st Contact Info) Description 12/17/2024 Results Follow-Up [facility] [address] [place] [address] Ness Montez NP [address] [place], [place] [id number] [place] Social History Tobacco Use Types Packs/Day Years [...] week 05/20/2024 How often do you attend spiritism or latter day serv ices? Never 05/20/2024 Do you belong to any clubs o r organizations such as spiritism groups, unions, fraternal or athletic groups, or [...] Recorded Patient Health Questionnaire-2 Score 0 05/20/2024 [facility] - Occupational [...] time in the past 12 m [facility], were you homeless or living in [...] [facility] [address] [facility] [address] [place] [address] Ryan Barger, SCENIC ARTS SUPERVISOR 03/21/2025 1:00 PM EDT Treatment [facility] [address] [facility] [address] [place] [address] Ryan Barger, SCENIC ARTS SUPERVISOR 03/24/2025 6:00 PM EDT Treatment [facility] [address] [facility] [address] [place] [address] Ofelia Blakely, [employer]EN[employer] ARTS SUPERVISOR 03/29/2025 5:30 PM EDT Treatment [facility] [address] [place] [place] [address] Ryan Barger, SCENIC ARTS SUPERVISOR 04/04/2025 5:30 PM EDT Treatment [facility] [address] [place] [place] [address] Delia Kwan, PT 04/11/2025 5:30 PM EDT Treatment [facility] [address] [place] [place] [address] Delia Kwan, PT 08/15/2025 5:30 PM EST Office Visit [facility] [address] [place] [address] Jovita Salas, WILLOW [address] [place] [address] documented as of this encounter Visit Diagnoses Not on filedocumented in this encounter Care Teams Entry Level Financial Analyst Relationship Specialty Start Date End Date Destinee Britton MD [address] [place] [address] PCP - General Family Medicine 11/12/22 documented as of this encounter
--- OUTSIDE RECORDS SUMMARY | 2025-03-15 11:02 | XMS_ITS | Clinical Summary ---
Author Organization [facility] Address [address] [facility] [address] Care Team Providers Care Pace Analyst Name Role Phone Destinee Britton MD Primary Care Provider [phone] Allergies No known active allergies Medications hydrOXYzine [...] mg before bedtime. 025 Active Norgestimate-Eth Estradiol (Czi-Cw-Fcdqmq) 0.18/0.215/0.25 MG-25 MCG tabletIndications :Unwanted fertility TAKE [...] [address] [place] [place] [address] Ryan Barger, INTRANET SUPPORT Sacrococcygeal disorders, not elsewhere classified (Primary Dx) 03/02/2025 Bamboo flowsheet [facility] [address] [place] [place] [address] Ryan Barger, INTRANET SUPPORT 03/02/2025 Travel 02/28/2025 6:00 PM EDT Treatment [facility] [address] [place] [place] [address] Delia Kwan, PT Sacrococcygeal disorders, not elsewhere classified (Primary Dx) 02/28/2025 Bamboo flowsheet [facility] [address] [facility] [address] [place] [address] Delia Kwan, PT 02/28/2025 Travel 02/18/2025 Abstract [facility] [address] [place] [address] [place] [address] Destinee Britton MD 02/15/2025 6:00 PM EDT Treatment [facility] [address] [facility] [address] [place] [address] Kem Costa, INTRANET SUPPORT Sacrococcygeal disorders, not elsewhere classified (Primary Dx) 02/15/2025 Travel 02/15/2025 [facility] [address] [place] [address] [place] [address] Destinee Britton MD 02/14/2025 5:30 PM EDT Office Visit [facility] [place] [address] Jovita Salas CNM PCOS (polycystic ovarian syndrome) (Primary Dx); Encounter for initial prescription of contraceptive pills; Insulin resistance 02/14/2025 Bamboo flowsheet [facility] [place] [address] Jovita Salas CNM 02/14/2025 Travel 02/01/2025 6:00 PM EDT Treatment [facility] [address] [place] [address] Kem Costa, INTRANET SUPPORT Sacrococcygeal disorders, not elsewhere classified (Primary Dx) 02/01/2025 Bamboo flowsheet [facility] [address] [place] [address] Kem Cotsa, INTRANET SUPPORT 02/01/2025 Travel 01/27/2025 6:00 PM EDT Treatment [facility] [address] [place] [address] Ofeila Blakely, INTRANET SUPPORT Sacrococcygeal disorders, not elsewhere classified (Primary Dx) 01/27/2025 Bamboo flowsheet [facility] [address] [place] [address] Ofelia Blakely, INTRANET SUPPORT 01/27/2025 Travel 01/25/2025 Plan of Care Documentation [facility] [address] [place] [address] 01/24/2025 6:00 PM EDT Evaluation [facility] [address] [place] [address] Delia Kwan, PT Sacrococcygeal disorders, not elsewhere classified (Primary Dx) 01/24/2025 Bamboo flowsheet [facility] [address] [place] [address] Delia Kwan, PT 01/24/2025 Travel 01/22/2025 Refill [facility] [address] [facility] [place] [address] Jovita Salas CNM Unwanted fertility 01/21/2025 Travel 01/11/2025 Refill [facility] [address] [facility] [place] [address] Destinee Britton MD Encounter for initial prescription of contraceptive pills 12/17/2024 Results Follow-Up [facility] [address] [facility] [place] [address] Ness Montez NP US LIVER 12/15/2024 8:15 AM EDT Ancillary Procedure [facility] [address] [facility] [address] [place] [address] Elevated liver enzymes 12/15/2024 Travel from Last 3 Months Immunizations Immunization [...] Paternal Grandmother Tawnya Patterson Diabetes Sister 2 [facility] Mental illness Sister 2 [facility] Relation Name Status Comments Father Alive Mother Kelsy Patterson Alive Other Paternal Grandmother [facility] Sister 1 Alive Sister 2 Jovana Patterson [...] week 05/20/2024 How often do you attend hinduism or yarsanism serv ices? Never 05/20/2024 Do you belong to any clubs o r organizations such as hinduism groups, unions, fraternal or athletic groups, or [...] Recorded Patient Health Questionnaire-2 Score 0 05/20/2024 [facility] Occupat ional Health - Occupational Stress [...] any time in the past 12 m [facility], were you homeless or living in a [...] [address] [place] [address] Ryan Barger, INTRANET SUPPORT 03/21/2025 1:00 PM EDT Treatment [facility] [address] [place] [address] Ryan Barger, INTRANET SUPPORT 03/24/2025 6:00 PM EDT Treatment [facility] [address] [place] [address] Ofelia Blakely, INTRANET SUPPORT 03/29/2025 5:30 PM EDT Treatment [facility] [address] [place] [address] Ryan Barger, INTRANET SUPPORT 04/04/2025 5:30 PM EDT Treatment [facility] [address] [facility] [address] [place] [address] Delia Kwan, PT 04/11/2025 5:30 PM EDT Treatment [facility] [address] [facility] [address] [place] [address] Delia Kwan, PT 08/15/2025 5:30 PM EST Office Visit [facility] [place] [facility] [address] [place] [address] Jovita Salas, WILLOW [address] [place] [address] Health Maintenance Due Date Last Done Comments [...] 12/15/2024 8:32 AM EDT Elevated liver enzymes from Last 3 Months Results * EXTRA [...] Performing Organization Information Site ID: PB Name: [facility] Address: [address] [facility] [address] [place] [address] Director: Ashley Harris M.D. Ness Montez MANAGER FILE LAB BLOOD ORDERABLES Final Resu lt QUEST [...] Performing Organization Information Site ID: QPT Name: [facility] Address: [address] [place] [address], [address] [place] [address] Director: Ramana Taylor MD Ness Montez NP LAB BLOOD ORDERABLES Final Resu Performing Organization Address City/State/[facility] [[email or web address]] Co de Phone Number [facility] * Hepatitis panel, acute (12/15/2024 8:36 AM EDT) Pathologist [facility] HEPATITIS A IGM NON-REACTI VE NON-REACT AUGUSTINE [facility] Comment: For additional information, please refer to http://hereO.Fave [employer]/faq/PMP906 (This link is being provided for informational/ educational purposes only.) HEPATITIS B SURFACE ANTIGEN NON-REACTI VE NON-REACT AUGUSTINE [facility] Comment: For additional information, please refer to http://hereO.Fave [employer]/faq/VBK107 (This link is being provided for informational/ educational purposes only.) HEPATITIS B CORE ANTIBODY (IGM) NON-REACTI VE NON-REACT AUGUSTINE [facility] Comment: For additional information, please refer to http://hereO.Fave Media/faq/WRX217 (This link is being provided for informational/ educational purposes only.) HEPATITIS C ANTIBODY NON-REACTI VE NON-REACT AUGUSTINE [facility] Comment: HCV antibody was non-reactive. There is no laboratory evidence of HCV infection. In most cases, no further action is required. However, if recent HCV exposure is suspected, a test for HCV RNA (test code 39038) is suggested. For additional information please refer to http://education.Fave [employer]/faq/KVA68e1 (This link is being provided for informational/ educational purposes only.) Blood Venous blood specimen / Unknown 12/15/2024 8:36 AM EDT 12/15/2024 2:14 PM EDT Narrative Resulting Agency Comment Performing Organization Information Site ID: QPT Name: [facility] Address: [address] [place] [address], [address] [place] [phone] Director: Ramana Taylor MD [facility] LAB BLOOD ORDERABLES Final Resu lt Performing Organization Address [facility] de Phone Number QUEST * Ayaan-Major virus VCA, IgM (12/15/2024 8:36 AM EDT) [facility] EBV VIRAL CAPSID AG (VCA) AB (IGM) <36.00 U/mL [facility]ST Comment: U/mL Interpretation ---- <36.00 Negative 36.00-43.99 Equivocal >43.99 Positive Blood Venous blood specimen / Unknown 12/15/2024 8:36 AM EDT 12/15/2024 2:14 PM EDT Narrative Resulting Agency Comment Performing Organization Information Site ID: QPT Name: [facility] Address: [address] [place] [address], [address] [place] [address] Director: Ramana Taylor MD [facility] LAB BLOOD ORDERABLES Final Resu lt Performing Organization Address [facility] de Phone Number QUEST * Protime-INR (12/15/2024 8:36 AM EDT) INR 1.0 [facility] Comment: Reference Range 0.9-1.1 Moderate-intensity Warfarin Therapy 2.0-3.0 Higher-intensity Warfarin Therapy 3.0-4.0 PT 10.2 9.0 - 11.5 sec [facility]ST Comment: For additional information, please refer to http://hereO.Fave Media/faq/HTR164 (This link is being provided for informational/ educational purposes only.) Blood Venous blood specimen / Unknown 12/15/2024 8:36 AM EDT 12/15/2024 2:14 PM EDT Narrative Resulting Agency Comment Performing Organization Information Site ID: QTW Name: [facility] Address: [address] [place] [address] Director: Lashawn Hoyt Ness Montez MANAGER FILE LAB BLOOD ORDERABLES Final Resu lt QUEST [...] AC-0: Negative International Consensus on BAR Patterns (https://doi.org/10.1515/iopa-2724-7835) For additional information, please refer to http://education.[employer]/faq/KBH108 (This link is being provided for informational/ educational purposes only.) Blood Venous blood specimen / Unknown 12/15/2024 8:36 AM EDT 12/15/2024 2:14 PM EDT Narrative Resulting Agency Comment Performing Organization Information Site ID: QPT Name: [facility] Address: [address] [facility], [address] [place] [address] Director: Ramana Taylor MD Ness Majors MANAGER FILE LAB BLOOD ORDERABLES Final Resu lt Performing Organization Address City/[facility]/ZIP Co de Phone Number QUEST * (ABNORMAL) ALT (12/15/2024 8:36 AM EDT) ALT 33(H) 6 - 29 U/L [facility] Blood Venous blood specimen / Unknown 12/15/2024 8:36 AM EDT 12/15/2024 2:14 PM EDT Narrative Resulting Agency Comment Performing Organization Information Site ID: QTW Name: [facility] Address: [address] [place] [address] Director: Lashawn Hoyt Ness Majors MANAGER FILE LAB BLOOD ORDERABLES Final Resu lt Performing Organization Address [facility] de Phone Number QUEST * AST (12/15/2024 8:36 AM EDT) AST 17 10 - 30 U/L [facility] Blood Venous blood specimen / Unknown 12/15/2024 8:36 AM EDT 12/15/2024 2:14 PM EDT Narrative Resulting Agency Comment Performing Organization Information Site ID: QTW Name: [facility] Address: [address] [place] [address] Director: Lashawn Hoyt [facility] MANAGER FILE LAB BLOOD ORDERABLES Final Resu lt Performing Organization Address [facility]/ZIP Co de Phone Number QUEST * Ferritin (12/15/2024 8:36 AM EDT) FERRITIN 28 16 - 154 ng/mL [facility] Blood Venous blood specimen / Unknown 12/15/2024 8:36 AM EDT 12/15/2024 2:14 PM EDT Narrative Resulting Agency Comment Performing Organization Information Site ID: QPT Name: [facility] Address: [address] [place] [address], [address] [place] [address] Director: Ramana Taylor MD us Ness Montez MANAGER FILE LAB BLOOD ORDERABLES Final Resu lt QUEST [...] II, MD, PHD at 17-Dec-2024 10:25:11 AM [facility] Procedure Note Siri Avery MD - [...] signed by SIRI AVERY II, MD, PHD [id number] 10:25:11 AM [facility] us Ness Majorcuauhtemoc MANAGER FILE IMG US PROCEDURES Final Result from Last 3 Months Insurance [facility] Care Teams Pace Analyst Relationship Specialty Start Date End Date Destinee Britton MD [address] [place] [address] PCP - General Family Medicine 11/12/22
--- OUTSIDE RECORDS SUMMARY | 2025-03-15 11:02 | XMS_ITS | Encounter Summary ---
Author Organization [facility] Address [address] [facility] [place] [address] Care Team Providers Care Leg Breaker Name Role Phone Destinee Britton MD Primary Care Provider [phone] Encounter Details Date Type Department Care Team (Late st Contact Info) Description 02/18/2025 Abstract [facility] [address] [place] [phone] Destinee Britton MD [address] [place], [place] [id number] Social History Tobacco Use Types Packs/Day Years [...] week 05/20/2024 How often do you attend pentecostalism or faith serv ices? Never 05/20/2024 Do you belong to any clubs o r organizations such as pentecostalism groups, unions, fraternal or athletic groups, or [...] in the past 12 m [facility], were you homeless or living in a alf (including now)? No 05/20/2024 Comments No Sex [...] [facility] [address] [facility] [address] [place] [address] Ryan Barger, SUPERVISOR ASSEMBLY AND PACKING 03/21/2025 1:00 PM EDT Treatment [facility] [address] [facility] [address] [place] [address] Ryan Barger, SUPERVISOR ASSEMBLY AND PACKING 03/24/2025 6:00 PM EDT Treatment [facility] [address] [facility] [address] [place] [address] Ofelia Blakely, SUPERVISOR ASSEMBLY AND PACKING 03/29/2025 5:30 PM EDT Treatment [facility] [address] [facility] [address] [place] [address] Ryan Barger, SUPERVISOR ASSEMBLY AND PACKING 04/04/2025 5:30 PM EDT Treatment [facility] [address] [facility] [address] [place] [address] Delia Kwan, PT 04/11/2025 5:30 PM EDT Treatment [facility] [address] [facility] [address] [place] [address] Delia Kwan, PT 08/15/2025 5:30 PM EST Office Visit BIANCA RAPP [address] [place] [address] Jovita Salas CNM [address] [place] [address] documented as of this encounter Visit Diagnoses Not on filedocumented in this encounter Care Teams Leg Breaker Relationship Specialty Start Date End Date Destinee Britton MD [address] [place] [address] PCP - General Family Medicine 11/12/22 documented as of this encounter
--- OUTSIDE RECORDS SUMMARY | 2025-03-15 11:02 | XMS_ITS | Encounter Summary ---
Author Organization [facility] Address [address] [place] [address] Care Team Providers Care Guest History Clerk Name Role Phone Destinee Britton MD Primary Care Provider [phone] Encounter Details Date Type Department Care Team (Late st Contact Info) Description 09/10/2024 Telephone [facility] [address] [place] [address] Jovita Salas, [facility] [address] [place], [place] [address] Social History Tobacco Use Types Packs/Day Years [...] week 05/20/2024 How often do you attend congregation or nondenominational serv ices? Never 05/20/2024 Do you belong to any clubs o r organizations such as congregation groups, unions, fraternal or athletic groups, or [...] Recorded Patient Health Questionnaire-2 Score 0 05/20/2024 [facility] Occupat ional Health - Occupational [...] [facility] [address] [place] [address] Ryan Barger PTA 03/21/2025 1:00 PM EDT Treatment [facility] [address] [address] [place] [address] Ryan Barger PTA 03/24/2025 6:00 PM EDT Treatment [facility] [address] [facility] [address] [place] [address] Ofelia Blakely, DIGITAL ENGINEER 03/29/2025 5:30 PM EDT Treatment [facility] [address] [facility] [address] [place] [address] Ryan Barger, DIGITAL ENGINEER 04/04/2025 5:30 PM EDT Treatment [facility] [address] [facility] [address] [place] [address] Delia Kwan, PT 04/11/2025 5:30 PM EDT Treatment [facility] [address] [facility] [address] [place] [address] Delia Kwan, PT 08/15/2025 5:30 PM EST Office Visit [facility] [address] [place] [address] Jovita Salas, CN [address] [place] [address] documented as of this encounter Visit Diagnoses Not on filedocumented in this encounter Care Teams Guest History Clerk Relationship Specialty Start Date End Date Destinee Britton MD [address] [place] [address] PCP - General Family Medicine 11/12/22 documented as of this encounter
--- OUTSIDE RECORDS SUMMARY | 2025-03-15 11:02 | XMS_ITS | Patient Health Record ---
Author Organization [facility] Address [address] [place] [address] Care Team Providers Care Digital Communications Manager Name Role Phone Nancy Delcid Unavailable Edgar Patricio Unavailable [phone] Allergies No Known Allergies Reason For Referral Reason PRIOR AUTH APPROVED ANTHEM...MRI lumbar scheduled 08/03/24 DONE Diagnosis 1 Lumbar radiculopathy (M54.16) Referral Organization [facility] Referring Provider First Name Nancy Referring Provider Last Name Radha padron Referring Provider Speciality Orthopedic Surgery Referred Organization [facility] Referred Address [address] [place] [address], Procedure 1 MRI Lumbar Spine w/o Dye (77729) General Notes Kathy Deal 07/27/19 11:05:31 AM >, Demetria Hannon 07/27/2024 11:28:31 AM > PER PEPITO SYED AUTH HAS BEEN APPROVED FROM 07/27/2024-08/25/2024 AUTH # [id number], AUTH IN CHART. Referral Priority Stat Reason Referral Dr. Sheng capellan and treat L4-S1 YELENA Diagnosis 1 Lumbar disc herniati on (M51.26) Referral Organization [facility] Referring Provider First Name Nancy Referring Provider Last Name Radha g Referring Provider Speciality Orthopedic Surgery Referred Organization [facility] Referred Provider Edgar Patricio Referred Address [address] [place] [address], General Notes Mirian Dealha 08/03/19 12:17:52 PM >, Eladia Taylor 08/04/2024 08:27:50 AM >CAlled and lmovm to schedule with Dr Patricio-september, Eladia Taylor 08/04/2024 08:36:04 AM >scheduled 3.3.25 Referral Priority Routine Reason [phone] fax [facility]; Pt requesting pain management at that location. Diagnosis 1 Lumbar radiculopathy (M54.16) Referral Organization [facility] Referring Provider First Name Zenag Referring Provider Last Name xxUdo-Zena g Referring Provider Speciality Orthopedic Surgery Referred [facility] Referred Address [place], [place], General Notes Malia Lobato 12/2024 02:22:47 PM >, Malia Lobato 08/13/2024 09:43:43 AM >FYI: She is scheduled for an appt with Dr. Patricio, father called and requested a referral to [facility], but keeping appt with Sheng if they [...] Problem Status W/U Status Risk Notes Problem [id number] Lumbar radiculopathy (M54.16) Active confirmed Problem [id number] Lumbar disc herniation (M51.26) Active confirmed Problem [id number] Discogenic low back pain (M51.360) Active confirmed Vital Signs Height 5ft 7in in 08/03/2024 Weight 240 lbs 08/03/2024 BMI 37.59 08/03/2024 Encounters Encounter Location Date Provider Diagnosis [facility] [address] [place] [address] 08/03/2024 [facility] Lumbar radiculopathy M54.16 [facility] [address] [place] [address] 07/27/2024 [facility] Lumbar radiculopathy M54.16 ; Discogenic low back pain M51.360 and Right hip pain M25.551 [facility] [address] [place] [address] 08/03/2024 [facility] Lumbar disc herniation M51.26 and Lumbar radiculopathy M54.16 [facility] [place] [address] [place] [address] 08/05/2024 Edgar Patricio [place] [address] [place] [address] 08/12/2024 [facility] Lumbar radiculopathy M54.16 ; Right hip pain [...] Lumbar spine 2v ap and lat - 59110 07/27 Hip, right 2v WITH PELVIS - 38029 2024 Future Test Test Name Order Date MRI : Lumbosacral Spine W/O Contrast - 7 214707/27/2024 Insurance Providers Payer Name Payer Address Payer Phone Subscriber Number Group Number Insured Name Patient Relationship to Insured Coverage Start Date Coverage End Date [employer] [address] [place] [address] [id number] ELADIA PAN Self - patient is [...]
--- OUTSIDE RECORDS SUMMARY | 2025-03-15 11:02 | XMS_ITS | Encounter Summary ---
Author Organization [facility] Address [address] [place] [address] Care Team Providers Care Band Splicer Name Role Phone Destinee Britton MD Primary Care Provider [phone] Encounter Details Date Type Department Care Team [...] week 05/20/2024 How often do you attend holiness or alevism serv ices? Never 05/20/2024 Do you belong to any clubs o r organizations such as holiness groups, unions, fraternal or athletic groups, or [...] [facility] [address] [facility] [address] [place] [address] Ryan Barger, STEWARD/STEWARDESS CHIEF CARGO VESSEL 03/21/2025 1:00 PM EDT Treatment [facility] [address] [facility] [address] [place] [address] Ryan Barger, STEWARD/STEWARDESS CHIEF CARGO VESSEL 03/24/2025 6:00 PM EDT Treatment [facility] [address] [facility] [address] [place] [address] Ofelia Blakely, STEWARD/STEWARDESS CHIEF CARGO VESSEL 03/29/2025 5:30 PM EDT Treatment [facility] [address] [facility] [address] [place] [address] Ryna Barger, STEWARD/STEWARDESS CHIEF CARGO VESSEL 04/04/2025 5:30 PM EDT Treatment [facility] [address] [facility] [address] [place] [address] Delia Kwan, PT 04/11/2025 5:30 PM EDT Treatment [facility] [address] [facility] [address] [place] [address] Delia Kwan, PT 08/15/2025 5:30 PM EST Office Visit [facility] [address] [facility] [place] [address] Jovita Salas, WILLOW [address] [facility], [place] [phone] documented as of this encounter Visit Diagnoses Not on filedocumented in this encounter Care Teams Band Splicer Relationship Specialty Start Date End Date Destinee Britton MD [address] [place] [address] PCP - General Family Medicine 11/12/22 documented as of this encounter
--- OUTSIDE RECORDS SUMMARY | 2025-03-15 11:02 | XMS_ITS | Encounter Summary ---
Author Organization [facility] Address [address] [place] [address] Care Team Providers Care Histopathology Technician Name Role Phone Destinee Britton MD Primary Care Provider [phone] Encounter Details Date Type Department Care Team (Late st Contact Info) Description 03/02/2025 Bamboo flowsheet [facility] [address] [facility] [address] [place] [id number] Ryan Barger PTA Social History Tobacco Use [...] week 05/20/2024 How often do you attend buddhist or adventism serv ices? Never 05/20/2024 Do you belong to any clubs o r organizations such as buddhist groups, unions, fraternal or athletic groups, or [...] Recorded Patient Health Questionnaire-2 Score 0 05/20/2024 [facility] - [...] time in the past 12 m [facility], were you homeless or living [...] [facility] [address] [facility] [address] [place] [address] Ryan Barger, [employer] ATTENDANT 03/21/2025 1:00 PM EDT Treatment [facility] [address] [facility] [address] [place] [address] Ryan Barger, [employer] ATTENDANT 03/24/2025 6:00 PM EDT Treatment [facility] [address] [facility] [address] [place] [address] Ofelia Blakely, [employer] ATTENDANT 03/29/2025 5:30 PM EDT Treatment [facility] [address] [facility] [address] [place] [address] Ryan Barger, [employer] ATTENDANT 04/04/2025 5:30 PM EDT Treatment [facility] [address] [facility] [address] [place] [address] Delia Kwan, PT 04/11/2025 5:30 PM EDT Treatment [facility] [address] [facility] [address] [place] [address] Delia Kwan, PT 08/15/2025 5:30 PM EST Office Visit [facility] [address] [place] [address] Jovita Salas, WILLOW [address] [place] [address] documented as of this encounter Visit Diagnoses Not on filedocumented in this encounter Care Teams Histopathology Technician Relationship Specialty Start Date End Date Destinee Britton MD [address] [place] [address] PCP - General Family Medicine 11/12/22 documented as of this encounter
--- OUTSIDE RECORDS SUMMARY | 2025-03-15 11:17 | XMS_ITS | CCD ---
Author Organization [facility] Care Team Providers Care Pharmacy Ancillary Name Role Phone Radha Aguilera Attending Provider [...] Unava ilable DO Becky Romeo Attending Provider NO FAMILY, PHYSICIAN Primary Care Provider Unava ilable LOU Kraft Attending Provider Becky Romeo Admitting Unavailable Becky Romeo Attending Unavailable NO FAMILY, PHYSICIAN Primary Care Unavailable Becky Romeo Admitting Unavailable Becky Romeo Attending Unavailable NO FAMILY, PHYSICIAN Primary Care Unavailable Lexy Kraft Admitting Unavailable Lexy Kraft Attending Unavailable NO FAMILY, PHYSICIAN Primary Care Unavailable Tobi LANDIS, Destinee Sweeney Primary Care Provider [phone] Braniecki DO, Becky A Primary Care Provider BRANNABORCKI, BECKY A Primary Care Unavailable YOLI LAL Attending Unavailable BRANIECKI, BECKY A Primary Care Unavailable BRANIECKI, BECKY A Primary Care Unavailable PRIYANK GASPAR Attending Unavailable Braniecki DO, Becky Primary Care Provider [phone] Lacey Morton LPN Attending Provider Unavailable Giovana [...] tablet by mouth once daily Norgest[employer]-Eth Estradiol (Zrx-Jj-Zbcztw) 0.18/0.215/0.25 MG-25 MCG tablet Indications: Unwanted fertility [...] Drug Class(es) Dates Sig (Normalized) Sig (Original) [id number] 200 actuat albuterol 0.09 mg/actuat metered dose [...] 11, 2023 2:33pm take 1 capsule by [facility] every eight hours Dicyclomine HCl 10 MG [...] Interpretation and review of laboratory results Normal [facility] Preg Test, Ur Negative Negative [facility] Urinalysis macro (dipstick) panel (U)on 12-03-2024 Bilirubin, UA 3+ Negative - 4(70) +++ mg/dL [facility] Blood, UA Negative Negative - 50 Aidan/mcL [facility] Clarity, UA Clear [facility] Color, UA Yellow [facility] Glucose, UA Negative Negative - 2000(110) ++++ mg/dL [facility] Interpretation and review of laboratory results Abnormal [facility] Ketones, UA Positive Negative - 160(16) ++++ mg/dL [facility] Leukocytes, UA 1+ Negative - 500+++ Samira/mcL [facility] Nitrite, UA Negative Negative - Positive [facility] pH, UA 6 5 - 9 [facility] Protein, UA 1+ Negative - 2000(20) ++++ mg/dL [facility] Spec Grav, UA 1.02 1 - 1.03 [facility] Urobilinogen, UA 0.2 0.2 - 12 mg/dL [facility] CT LUMBAR SPINE WO CONTRASTo n 07-20-2024 [...] Octavio Lowe MD 07/20/24 Final result Normal [facility] CT Lumbar spine WO contrasto n 07-20-2024 [...] facets throughout with no significant spinal stenosis. [facility] RIS CONSOLIDATED EXAMINATION: CT OF THE LUMBAR [...] TISSUES/RETROPERITONE UM: No paraspinal mass is seen. [facility] RIS Octavio Rosen MD - 07/20/2024 EXAMINATION: [...] facets throughout with no significant spinal stenosis. [facility] Radiology Study observation (narrative) [facility] CT Lumbar spine WO contrastO rdered By: Octavio Lowe on 07-20-2024 [facility] Work Phone: HCG, ,Urineon 07-20 Beta HCG ( test) Ql (U) Negative Normal NEG [facility] Comment on above: Result Comment: Spec imens with hCG levels near the threshold of the test (25 mIU/mL) may give a negative or indeterminate result. In such cases, another test should be performed with a new specimen in 48-72 hours. If early is suspected clinically in this setting, correlation with quantitative serum b-hCG level is suggested. [facility] confirmed the use of plasma for this test. This has not been cleared or approved by the U.S. Food and Drug Administration. The FDA has determined that such clearance is not necessary. Performed By: #### U HCG #### [facility] [address] [place] [address] Infection Prevention Practitioner: Roge Rios MD Microscopic Urinalysison Amorphous sediment LM Ql (Urine sed) 1+ Abnormal None [facility] Epithelial cells LM.HPF (Urine sed) [#/Area] 2 TO 5 [facility] Interpretation and review of laboratory results Abnormal [facility] RBC LM.HPF (Urine sed) [#/Area] 0 TO 2 [facility] Renal Epithelial, UA 2 TO 5 0 /HPF [facility] WBC LM.HPF (Urine sed) [#/Area] 5 TO 10 [facility] , Urineon HCG ( test) Ql (U) Negative NEGATIVE [facility] Comment on above: Specimens with hCG l evels near the threshold of the test (25 mIU/mL) may give a negative or indeterminate result. In such cases, another test should be performed with a new specimen in 48-72 hours. If early is suspected clinically in this setting, correlation with quantitative serum b-hCG level is suggested. [employer] has confirmed the use of plasma for this test. This has not been cleared or approved by the U.S. Food and Drug Administration. The FDA has determined that such clearance is not necessary. [facility] Urinalysison 07-20-2024 Bilirubin Ql (U) Negative NEGATIVE [facility] Clarity (U) SLIGHTLY CLOUDY Abnormal Clear [facility] Color (U) Yellow Yellow [facility] Glucose Test strip (U) [Mass/Vol] Negative NEGATIVE mg/dL [facility] Hemoglobin Auto test strip Ql (U) Negative NEGATIVE [facility] Interpretation and review of laboratory results Abnormal [facility] Ketones (U) [Mass/Vol] Negative NEGAT AUGUSTINE mg/dL [facility] Leukocyte esterase Test strip Ql (U) SMALL Abnormal NEGATIVE [facility] Nitrite Ql (U) Negative NEGATIVE [facility] pH (U) 8.0 [pH] 5.0 - 9.0 [facility] Protein (U) [Mass/Vol] Negative NEGAT AUGUSTINE mg/dL [facility] Specific gravity (U) [Rel density] 1.020 1.010 - 1.020 [facility] Urobilinogen Qn (U) Normal 0.0 - 1. 0 EU/dL [facility] Urinalysis, Routineon 2024 Bilirubin, SemiQt,Ur Negative Normal NEG [facility] Comment on above: Performed By: #### U A, UMICAO #### [facility] [address] [place] [address] [address] [place], [place] [id number] Infection Prevention Practitioner: Roge Rios MD Blood, Urine Negative Normal [facility] Comment on above: Performed By: #### U A, UMICAO #### [facility] [address] [place], [place] [id number] Infection Prevention Practitioner: Roge Rios MD Clarity (U) SLIGHTLY CLOUDY Abnormal CLEAR [facility] Comment on above: Performed By: #### U A, UMICAO #### [facility] [address] [place] [address] [place], [place] [id number] Infection Prevention Practitioner: Roge Rios MD Color (U) Yellow Normal YEL [facility] Comment on above: Performed By: #### U A, UMICAO #### [facility] [address] [place] [address] [place], [place] [id number] Infection Prevention Practitioner: Roge Rios MD Glucose Ql (U) Negative Normal NEG [facility] Comment on above: Performed By: #### U A, UMICAO #### [facility] [address] [place] [address] [place] [place], [place] [id number] Infection Prevention Practitioner: Roge Rios MD Ketones Ql (U) Negative Normal NEG [facility] Comment on above: Performed By: #### U A, UMICAO #### [facility] [address] [place] [address] Dr[place], [place] [id number] Infection Prevention Practitioner: Roge Rios MD Leukocyte esterase Test strip Ql (U) SMALL Abnormal NEG [facility] Comment on above: Performed By: #### U A, UMICAO #### [facility] [address] [place], [place] [id number] Infection Prevention Practitioner: Roge Rios MD Nitrite,Ur Negative Normal [facility] Comment on above: Performed By: #### U A, UMICAO #### [facility] [address] [place] [address] Dr. [place], [place] [id number] Infection Prevention Practitioner: Roge Rios MD PH,Ur 8.0 Normal 5.0-9.0 [facility] Comment on above: Performed By: #### U A, UMICAO #### [address] [place] [address] Infection Prevention Practitioner: Roge Rios MD Protein Ql (U) Negative Normal NEG [facility] Comment on above: Performed By: #### U A, UMICAO #### [address] [place], [facility]83 Infection Prevention Practitioner: Roge Rios MD Spec. [place],Ur 1.020 Normal 1.010-1.020 [facility] Comment on above: Performed By: #### U A, UMICAO #### [facility] [address] [place] [address] Dr[place], [place] [address] Infection Prevention Practitioner: oRge Rios MD Urobilinogen,Ur Normal Normal 0.0-1.0 [facility] Comment on above: Performed By: #### U A, UMICAO #### [address] [place], [place] [address] Infection Prevention Practitioner: Roge Rios MD Urinalysis,Microon 5 Amorphous sediment LM Ql (Urine sed) 1+ Abnormal NONE [facility] Comment on above: Performed By: #### U A, UMICAO #### [address] [place], [place] [id number] Infection Prevention Practitioner: Roge Rios MD Epithelial cells LM Ql (Urine sed) 2 TO 5 Normal 0-25 [facility] Comment on above: Performed By: #### U A, UMICAO #### [address] [place], [facility]83 Infection Prevention Practitioner: Roge Rios MD Epithelial, Renal 2 TO 5 Normal 0 [facility] Comment on above: Performed By: #### U A, UMICAO #### [facility] [address] [place] [address] Infection Prevention Practitioner: Roge Rios MD Urine RBC's 0 TO 2 Normal 0-2 [facility] Comment on above: Performed By: #### U A, UMICAO #### [facility] [address] [place] [address] Infection Prevention Practitioner: Roge Rios MD Urine WBC's 5 TO 10 Normal 0-5 [facility] Comment on above: Performed By: #### U A, UMICAO #### [facility] [address] [place] [address] Infection Prevention Practitioner: Roge Rios MD COVID + FLU Quick Testingon 07-09-2023 SARS-CoV-2 (COVID-19) RNA THA+probe Ql (Unsp spec) Negative [facility] [employer] Other COVID + FLU Quick Testing Negative [facility] Other XR wrist LT min 3V*on 2022 XR wrist LT min 3V* [facility] [employer] Other XR wrist LT min 3V* [facility] [employer] Other XR wrist LT min 3V* [address] [facility] [employer] Other XR wrist LT min 3V* [place] [address] [facility] [employer] Other XR wrist LT min 3V* XRay Report [place] [facility] Other XR wrist LT min 3V* Signed [facility] Other XR wrist LT min 3V* Patient: Edwige Patterson MR#: [id number] [place] [facility] Other XR wrist LT min 3V* [id number] [facility] Other XR wrist LT min 3V* : 2000 Acct:[id number] [facility] Other XR wrist LT min 3V* Age/Sex: 22 / F ADM Date: 12/09/22 [facility] Other XR wrist LT min 3V* Loc: XDUCLY Room: Type: REG CLI [facility] Other XR wrist LT min 3V* Attending Dr: Lexy BLAKE [facility] Other XR wrist LT min 3V* Copies to: LOU Hernandez [facility] Other XR wrist LT min 3V* Ordering Provider: LOU Hernandez [facility] Other XR wrist LT min 3V* Date of Service: 12/09/22 [facility] Other XR wrist LT min 3V* XR/XR wrist LT min 3V*: Left wrist pain [facility] Other XR wrist LT min 3V* ([id number]) XR/XR hand LT min 3V*: Left wrist pain [facility] Other XR wrist LT min 3V* 3 views LEFT hand plain film [facility] Other XR wrist LT min 3V* COMPARISON: None [facility] Other XR wrist LT min 3V* HISTORY: LEFT hand injury. Pain involving the distal middle finger. Dorsal wrist pain [facility] Other XR wrist LT min 3V* ACUTE FINDINGS: None [facility] Other XR wrist LT min 3V* DEGENERATIVE CHANGE: Unremarkable [facility] Other XR wrist LT min 3V* SOFT TISSUE FINDINGS : Unremarkable [facility] Other XR wrist LT min 3V* JOINT EFFUSION: None [facility] Other XR wrist LT min 3V* POSTOP CHANGES: None [facility] Other XR wrist LT min 3V* BONY MINERALIZATION: Adequate [facility] Other XR wrist LT min 3V* XR/XR hand LT min 3V* [facility] Other XR wrist LT min 3V* IMPRESSION: No acute findings [facility] Other XR wrist LT min 3V* 4 views LEFT wrist plain film [facility] Other XR wrist LT min 3V* BONE MINERALIZATION: Adequate [facility] Other XR wrist LT min 3V* IMPRESSION: No acute bony findings. [facility] Other XR wrist LT min 3V* Impression dictated by: Misbah Mast M.D.12/09/2022 11:59 AM [facility] Other XR wrist LT min 3V* Dictation Location: [place] [address] [facility] Other XR wrist LT min 3V* Transcribed By: DOMINIQUE 12/09/22 1159 [facility] Other XR wrist LT min 3V* Dictated By: Misbah Mast DO 12/09/22 1158 [facility] Other XR wrist LT min 3V* Signed By: [facility] Other XR wrist LT min 3V* 12/09/22 1159 No rt [facility] Other XR wrist LT min 3V* [facility] Main [place] [address] [place] [id number] XRay Report Signed Patient: Edwige Patterson MR#: [id number] : 2000 Acct:[id number] Age/Sex: 22 / F ADM Date: 12/09/22 Loc: XDUCLY Room: Type: [facility] Attending Dr: Lexy BLAKE Copies to: LOU Hernandez Ordering Provider: LOU Hernandez Date of Service: 12/09/22 XR/XR wrist LT min 3V*: Left wrist pain ([id number]) XR/XR hand LT min 3V*: Left wrist [...] Misbah Mast M.D.12/09/2022 11:59 AM Dictation Location: [place] [address] Transcribed By: [facility] 12/09/22 1159 Dictated By: Misbah Mast DO 12/09/22 1158 Signed By: 12/09/22 1159 Normal [facility] A1C with Estimated Average G jaredn 08-14-2022 HbA1c (Bld) [Mass fraction] 5.200 % Normal 4.3-5.6 % [facility] [employer] Other HbA1c (Bld) [Mass fraction] 103 mg/dL [facility] Other Glucose [Mass/Vol] 103 mg/dL Normal [facility] Comment on above: Result Comment: PERF ORMED BY: [address] [address] PATHOLOGIST CORE LOADER KULWANT GOMEZ M.D. Performed By: #### C BC, TSH3, CMP, A1C WTH eA, LIPID #### [address] [address] [place] HbA1c (Bld) [Mass fraction] 5.2 % Normal 4.3-5.6 [facility] Comment on above: Result Comment: Incr eased risk for diabetes: 5.7 - 6.4 diabetes: >6.4 glycemic control for adults with diabetes: <7.0 Performed By: #### C BC, TSH3, CMP, A1C WTH eA, LIPID #### [facility] [address] [place] [id number] [place] Albumin [Mass/volume] in Ser um or PlasmaOrdered By: Becky Romeo on 08-14-2022 Albumin [Mass/Vol] 3.9 g/dL 3.2-5.5 [facility] Basophils Auto (Bld) [#/Vol] Ordered By: Becky Romeo on 08-14-2022 Basophils (Bld) [#/Vol] 0.0 10*3/uL 0.0-0.2 [facility] Basophils/100 WBC Auto (Bld) Ordered By: Becky Romeo on 08-14-2022 Basophils/100 WBC (Bld) 0.6 % . F [facility] Cholesterol [Mass/volume] in Serum or PlasmaOrdered By: Becky Romeo on 08-14-2022 Cholesterol [Mass/Vol] 195 mg/dL Normal 140-2 00 mg/dL [facility] Comment on above: Chol less than 200 m g/dl low riskChol 201-239 mg/dl borderline riskChol 240 mg/dl and greater high risk Cholesterol in LDL Calc [Mas s/Vol]Ordered By: Becky Romeo on 08-14-2022 Cholesterol in LDL [Mass/Vol] 146 mg/dL 0-100 [facility] Comment on above: LDL ATP III CLASSIFI CATIONLDL less than 100 mg/dL OptimalLDL 100-129 mg/dL Near or above optimalLDL 130-159 mg/dL Borderline highLDL 160-189 mg/dL HighLDL greater than 189 mg/dL Very high Cholesterol in VLDL Calc [Ma ss/Vol]Ordered By: Becky Romeo on 08-14-2022 Cholesterol in VLDL [Mass/Vol] 16 mg/dL [facility] Complete Blood Count Auto Di ffon 08-14-2022 Basophils (Bld) [#/Vol] 0.931358534 10*3/uL Normal 0.0-0.2 10*3/uL [facility] Other Basophils/100 WBC (Bld) 0.600 % . % [facility] [employer] Other Eosinophils (Bld) [#/Vol] 0.598169118 10*3/uL Normal 0.0-0.45 10*3/uL [facility] Other Eosinophils/100 WBC (Bld) 2.300 % . % [facility] Other Erythrocyte distribution width (RBC) [Ratio] 12.400 % Normal 11.9-15.3 % [facility] Other Hematocrit (Bld) [Volume fraction] 39.700 % Normal 34.0-46.4 % [facility] Other Hemoglobin (Bld) [Mass/Vol] 13.274840 g/dL Normal 11.8-15.4 g/dL [facility] Other Lymphocytes (Bld) [#/Vol] 1.231536860 10*3/uL Normal 1.00-4.8 10*3/uL [facility] Other Lymphocytes/100 WBC (Bld) 22.500 % . % [facility] Other MCH (RBC) [Entitic mass] 30.2000 pg Normal 24.7-34.3 pg [facility] Other MCV (RBC) [Entitic vol] 90.5000 fL Normal 80-100 fL [facility] [employer] Other Monocytes (Bld) [#/Vol] 0.535426422 10*3/uL Normal 0.0-0.8 10*3/uL [facility] Other Monocytes/100 WBC (Bld) 6.800 % . % [facility] [employer] Other Neutrophils (Bld) [#/Vol] 3.504198820 10*3/uL Normal 1.8-7.7 10*3/uL [facility] Other Neutrophils/100 WBC (Bld) 67.800 % . % [facility] Other Platelet mean volume (Bld) [Entitic vol] 9.0000 fL Normal 6.3-10.7 fL [facility] Other WBC (Bld) [#/Vol] 5.469237911 10*3/uL Normal 3.8 -11.6 10*3/uL [facility] Other Complete Blood Count Auto Diff 5.6 10*3/uL Normal 3.8-11.6 10*3/uL [facility] Other Complete Blood Count Auto Diff 33.4 g/dL Normal 32.0-35.0 g/dL [facility] Other Complete Blood Count Auto Diff 0.3 /100{WBC} Normal 0-0.5 /100{WBC} [facility] Other Basophils (Bld) [#/Vol] 0.0 10*3/uL Normal 0.0-0.2 [facility] Comment on above: Result Comment: PERF ORMED BY: [facility] [address] [place] [address] PATHOLOGIST CORE LOADER KULWANT GOMEZ M.D. Performed By: #### C BC, TSH3, CMP, A1C [facility] eA, LIPID #### [facility] [address] [place] [address] [place] Basophils/100 WBC (Bld) 0.6 % Normal . F [facility] Comment on above: Performed By: #### C BC, TSH3, CMP, A1C WTH eA, LIPID #### [facility] [address] [place] [address] [place] Eosinophils (Bld) [#/Vol] 0.1 10*3/uL Normal 0.0-0.45 [facility] Comment on above: Performed By: #### C BC, TSH3, CMP, A1C WTH eA, LIPID #### [facility] [address] [place] [address] Eosinophils/100 WBC (Bld) 2.3 % Normal . [facility] Comment on above: Performed By: #### C BC, TSH3, CMP, A1C WTH eA, LIPID #### [address] Erythrocyte distribution width (RBC) [Ratio] 12.4 % Normal 11.9-15.3 [facility] Comment on above: Performed By: #### C BC, TSH3, CMP, A1C WTH eA, LIPID #### [address] Hematocrit (Bld) [Volume fraction] 39.7 % Normal 34.0-46.4 [facility] Comment on above: Performed By: #### C BC, TSH3, CMP, A1C WTH eA, LIPID #### [address] Hemoglobin (Bld) [Mass/Vol] 13.2 g/dL Normal 11.8-15.4 [facility] Comment on above: Performed By: #### C BC, TSH3, CMP, A1C WTH eA, LIPID #### [address] Lymphocytes (Bld) [#/Vol] 1.3 10*3/uL Normal 1.00-4.8 [facility] Comment on above: Performed By: #### C BC, TSH3, CMP, A1C WTH eA, [place] #### [place] [address] [place] Lymphocytes/100 WBC (Bld) 22.5 % Normal . [facility] Comment on above: Performed By: #### C BC, TSH3, CMP, A1C WTH eA, LIPID #### [address] MCH (RBC) [Entitic mass] 30.2 pg Normal 24.7-34.3 [facility] Comment on above: Performed By: #### C BC, TSH3, CMP, A1C WTH eA, LIPID #### [facility] [address] [place] [address] [place] MCV (RBC) [Entitic vol] 90.5 fL Normal 80-100 [facility] Comment on above: Performed By: #### C BC, TSH3, CMP, A1C WTH eA, LIPID #### [facility] [address] [place] [address] [place] Mean Corpuscular HGB Conc 33.4 g/dL Normal 32.0-35.0 [facility] Comment on above: Performed By: #### C BC, TSH3, CMP, A1C WTH eA, LIPID #### [facility] [address] [place] [address] Monocytes (Bld) [#/Vol] 0.4 10*3/uL Normal 0.0-0.8 [facility] Comment on above: Performed By: #### C BC, TSH3, CMP, A1C WTH eA, LIPID #### [facility] [address] [place] [address] [place] Monocytes/100 WBC (Bld) 6.8 % Normal . [facility] Comment on above: Performed By: #### C BC, TSH3, CMP, A1C WTH eA, LIPID #### [facility] [address] [place] [address] [place] Neutrophils (Bld) [#/Vol] 3.8 10*3/uL Normal 1.8-7.7 [facility] Comment on above: Performed By: #### C BC, TSH3, CMP, A1C WTH eA, LIPID #### [facility] [address] [place] [address] [place] Neutrophils/100 WBC (Bld) 67.8 % Normal . [facility] Comment on above: Performed By: #### C BC, TSH3, CMP, A1C WTH eA, LIPID #### [facility] [address] [place] [address] [place] NRBC% 0.3 /100{WBC} Normal 0-0.5 [facility] Comment on above: Performed By: #### C BC, TSH3, CMP, A1C WTH eA, LIPID #### [facility] [address] Platelet mean volume (Bld) [Entitic vol] 9.0 fL Normal 6.3-10.7 [facility] Comment on above: Performed By: #### C BC, TSH3, CMP, A1C WTH eA, LIPID #### [facility] [address] Platelets (Bld) [#/Vol] 232 10*3/uL Normal 150-450 [facility] Comment on above: Performed By: #### C BC, TSH3, CMP, A1C WTH eA, LIPID #### [facility] [address] RBC (Bld) [#/Vol] 4.38 10*6/uL Normal 3.60-5.00 [facility] Comment on above: Performed By: #### C BC, TSH3, CMP, A1C WTH eA, LIPID #### [facility] [address] WBC (Bld) [#/Vol] 5.6 10*3/uL Normal 3.8-11.6 [facility] Comment on above: Performed By: #### C BC, TSH3, CMP, A1C WTH eA, LIPID #### [facility] [address] Comprehensive Metabolic Pane amandeep 08-14-2022 Albumin [Mass/Vol] 3.325277 g/dL Normal 3.2-5.5 g/dL N [facility] Other Bilirubin [Mass/Vol] 0.9289903 mg/dL Normal 0.3- 1.2 mg/dL [facility] Other Calcium [Mass/Vol] 9.2967369 mg/dL Normal 8.2-10 .2 mg/dL [facility] Other CO2 [Moles/Vol] 23.89527784 mmol/L Normal 22.0-3 0.0 mmol/L [facility] Other Creatinine [Mass/Vol] 0.56023899 mg/dL Normal 0. 44-1.03 mg/dL [place] [facility] Other Potassium [Moles/Vol] 3.34621449 mmol/L Normal 3 .5-5.1 mmol/L [place] [facility] Other Protein [Mass/Vol] 6.502287 g/dL Normal 6.1-7.9 g/dL N [facility] [employer] Other Comprehensive Metabolic Panel > 60 [facility] [employer] Other Comprehensive Metabolic Panel 2.7 g/dL [facility] Other Albumin [Mass/Vol] 3.9 g/dL Normal 3.2-5.5 [facility] Comment on above: Performed By: #### C BC, TSH3, CMP, A1C WTH eA, LIPID #### [facility] [address] Albumin/Globulin [Mass ratio] 1.4 {ratio} [facility] Comment on above: Performed By: #### C BC, TSH3, CMP, A1C WTH eA, LIPID #### [facility] [address] [place] [address] [place] ALP [Catalytic activity/Vol] 69 U/L Normal 32-92 [facility] Comment on above: Performed By: #### C BC, TSH3, CMP, A1C WTH eA, LIPID #### [facility] [address] [place] [address] [place] ALT [Catalytic activity/Vol] 34 U/L Normal 10-60 [facility] [employer] Other Comment on above: Performed By: #### C BC, TSH3, CMP, A1C WTH eA, LIPID #### [facility] [address] [place] [address] [place] Anion gap [Moles/Vol] 9.7 mmol/L Normal 6.0-15.0 [facility] Comment on above: Performed By: #### C BC, TSH3, CMP, A1C WTH eA, LIPID #### [facility] [address] [place] [address] [place] AST [Catalytic activity/Vol] 30 U/L Normal 10-42 [facility] Comment on above: Performed By: #### C BC, TSH3, CMP, A1C WTH eA, LIPID #### [facility] [address] [place] [address] [place] Bilirubin [Mass/Vol] 0.7 mg/dL Normal 0.3-1.2 [facility] Comment on above: Performed By: #### C BC, TSH3, CMP, A1C WTH eA, LIPID #### [facility] [address] Calcium [Mass/Vol] 9.2 mg/dL Normal 8.2-10.2 [facility] Comment on above: Performed By: #### C BC, TSH3, CMP, A1C WTH eA, LIPID #### [facility] [address] Chloride [Moles/Vol] 108 mmol/L Normal 95-114 [facility] Comment on above: Performed By: #### C BC, TSH3, CMP, A1C WTH eA, LIPID #### [facility] [address] [place] [address] [place] CO2 [Moles/Vol] 23.1 mmol/L Normal 22.0-30.0 [facility] Comment on above: Performed By: #### C BC, TSH3, CMP, A1C WTH eA, LIPID #### [facility] [address] [place] [address] [place] Creatinine [Mass/Vol] 0.75 mg/dL Normal 0.44-1.03 [facility] Comment on above: Performed By: #### C BC, TSH3, CMP, A1C WTH eA, LIPID #### [facility] [address] [place] [address] [place] Estimated GFR ( Queenie > 60 Normal [facility] Comment on above: Result Comment: GFR estimated reference range: According to KDOQI guidelines, <60 ml/min/1.73m2 is sufficient to diagnose a patient with chronic kidney disease. Performed By: #### C BC, TSH3, CMP, A1C WTH eA, LIPID #### [facility] [address] [place] [address] [place] Estimated GFR (Non- Am > 60 Normal [facility] Comment on above: Performed By: #### C BC, TSH3, CMP, A1C WTH eA, LIPID #### [facility] [address] Globulin (S) [Mass/Vol] 2.7 g/dL Normal [facility] Comment on above: Performed By: #### C BC, TSH3, CMP, A1C WTH eA, LIPID #### [facility] [address] Glucose [Mass/Vol] 87 mg/dL Normal 70-100 [facility] Comment on above: Result Comment: [facility] Glucose Reference Range is dependent on time and content of last meal. Glucose of more than 200 mg/dL in a nonstressed, ambulatory subject supports the diagnosis of Diabetes Mellitus. ADA recommended reference range Performed By: #### C BC, TSH3, CMP, A1C WTH eA, LIPID #### [facility] [address] Potassium [Moles/Vol] 3.8 mmol/L Normal 3.5-5.1 [facility] Comment on above: Performed By: #### C BC, TSH3, CMP, A1C WTH eA, LIPID #### [facility] [address] [place] [address] [place] Protein [Mass/Vol] 6.6 g/dL Normal 6.1-7.9 [facility] Comment on above: Performed By: #### C BC, TSH3, CMP, A1C WTH eA, LIPID #### [facility] [address] Sodium [Moles/Vol] 137 mmol/L Normal 136-146 [facility] Comment on above: Performed By: #### C BC, TSH3, CMP, A1C WTH eA, LIPID #### [facility] [address] [place] [address] [place] Urea nitrogen [Mass/Vol] 5 mg/dL Low 9-23 [facility] Comment on above: Performed By: #### C BC, TSH3, CMP, A1C WTH eA, LIPID #### [facility] [address] Creatinine and Glomerular fi ltration rate.predicted panel (S/P/Bld)Ordered By: Becky Romeo on 08-14-2022 Creatinine [Mass/Vol] 0.75 mg/dL 0.44-1.03 [facility] Eosinophils Auto (Bld) [#/Vo l]Ordered By: Becky Romeo on 08-14-2022 Eosinophils (Bld) [#/Vol] 0.1 10*3/uL 0.0-0.45 [facility] Eosinophils/100 WBC Auto (Bl d)Ordered By: Becky Romeo on 08-14-2022 Eosinophils/100 WBC (Bld) 2.3 % . [facility] Erythrocyte distribution wid th Auto (RBC) [Ratio]Ordered By: Becky Romeo on 08-14-2022 Erythrocyte distribution width (RBC) [Ratio] 12.4 % 11.9-15.3 [facility] Erythrocytes [#/volume] in B lood by Automated countOrdered By: Becky Romeo on 08-14-2022 RBC (Bld) [#/Vol] 4.38 10*6/uL Normal 3.60-5.00 [facility] Estimated glomerular filtrat ion rate (GFR) non- AmericanOrdered By: Becky Romeo on 08-14-2022 GFR/1.73 sq M.predicted among non-blacks MDRD (S/P/Bld) [Vol rate/Area] > 60 mL/Min [facility] Globulin Calc (S) [Mass/Vol] Ordered By: Becky Romeo on 08-14-2022 Globulin (S) [Mass/Vol] 2.7 g/dL [facility] Hematocrit Auto (Bld) [Volum e fraction]Ordered By: Becky Romeo on 08-14-2022 Hematocrit (Bld) [Volume fraction] 39.7 % 34.0-46.4 [facility] Hemoglobin [Mass/volume] in BloodOrdered By: Becky Romeo on 08-14-2022 Hemoglobin (Bld) [Mass/Vol] 13.2 g/dL 11.8-15.4 [facility] Leukocytes [#/volume] correc kalyani for nucleated erythrocytes in Blood by Automated counOrdered By: Becky Romeo on 08-14-2022 WBC corrected for nucl RBC Auto (Bld) [#/Vol] 5.6 10*3/uL 3.8-11.6 [facility] Lipid Panelon 08-14-2022 Cholesterol in LDL Elph Qn 146 mg/dL High 0-100 mg/dL [facility] [employer] Other Lipid Panel 84 mg/dL Normal 35-149 mg/dL [facility] [employer] Other Lipid Panel 16 mg/dL [facility] [employer] Other Cholesterol [Mass/Vol] 195 mg/dL Normal 140-200 [facility] Comment on above: Result Comment: Chol less than 200 mg/dl low risk Chol 201-239 mg/dl borderline risk Chol 240 mg/dl and greater high risk Performed By: #### C BC, TSH3, CMP, A1C WTH eA, LIPID #### [facility] [address] [place] [id number] [place] Cholesterol in HDL [Mass/Vol] 32 mg/dL Low 35-85 [facility] Comment on above: Result Comment: HDL CHOL ATP-III CLASSIFICATION Cardiovascular Risk HDL > or equal to 60 mg/dL LOW HDL < 40 mg/dL HIGH Performed By: #### C BC, TSH3, CMP, A1C WTH eA, LIPID #### [facility] [address] [place] [address] [place] Cholesterol.total/Vero sterol in HDL [Mass ratio] 6.1 {ratio} Normal <5.0 [facility] Comment on above: Performed By: #### C BC, TSH3, CMP, A1C WTH eA, LIPID #### [facility] [address] [place] [id number] [place] LDL Cholesterol,Calculated 146 mg/dL High 0-100 [facility] Comment on above: Result Comment: LDL ATP III CLASSIFICATION LDL less than 100 mg/dL Optimal LDL 100-129 mg/dL Near or above optimal LDL 130-159 mg/dL Borderline high LDL 160-189 mg/dL High LDL greater than 189 mg/dL Very high Performed By: #### C BC, TSH3, CMP, A1C WT eA, LIPID #### [facility] [address] [place] [id number] [facility] Triglyceride w/Reflex 84 mg/dL Normal 35-149 [facility] Comment on above: Result Comment: TRIG ATP III CLASSIFICATION TRIG less than 150 mg/dL Normal TRIG 150-199 mg/dL Borderline high TRIG 200-500 mg/dL High TRIG greater than 500 mg/dL Very high Standard traceable to the Center for Disease Conrtrol and Prevention (CDC) test method. Performed By: #### C BC, TSH3, CMP, A1C WT eA, LIPID #### [facility] [address] [place] [id number] [facility] VLDL CHOLESTEROL 16 mg/dL Normal [facility] Comment on above: Performed By: #### C BC, TSH3, CMP, A1C [facility] eA, LIPID #### [facility] [address] [place] [id number] [place] Lymphocytes Auto (Bld) [#/Vo l]Ordered By: Becky Romeo on 08-14-2022 Lymphocytes (Bld) [#/Vol] 1.3 10*3/uL 1.00-4.8 [facility] Lymphocytes/100 WBC Auto (Bl d)Ordered By: Becky Romeo on 08-14-2022 Lymphocytes/100 WBC (Bld) 22.5 % . [facility] MCH Auto (RBC) [Entitic mass ]Ordered By: Becky Romeo on 08-14-2022 MCH (RBC) [Entitic mass] 30.2 pg 24.7-34.3 [facility] MCHC Auto (RBC) [Mass/Vol]Or dered By: Becky Romeo on 08-14-2022 MCHC (RBC) [Mass/Vol] 33.4 g/dL 32.0-35.0 [facility] MCV Auto (RBC) [Entitic vol] Ordered By: Becky Romeo on 08-14-2022 MCV (RBC) [Entitic vol] 90.5 fL 80-100 [facility] Monocytes Auto (Bld) [#/Vol] Ordered By: Becky Romeo on 08-14-2022 Monocytes (Bld) [#/Vol] 0.4 10*3/uL 0.0-0.8 [facility] Monocytes/100 WBC Auto (Bld) Ordered By: Becky Romeo on 08-14-2022 Monocytes/100 WBC (Bld) 6.8 % . [facility] Neutrophils Auto (Bld) [#/Vo l]Ordered By: Becky Romeo on 08-14-2022 Neutrophils (Bld) [#/Vol] 3.8 10*3/uL 1.8-7.7 [facility] Neutrophils/100 WBC Auto (Bl d)Ordered By: Becky Romeo on 08-14-2022 Neutrophils/100 WBC (Bld) 67.8 % . [facility] No Panel InformationOrdered By: Becky Romeo on 08-14-2022 Estimated GFR () > 60 mL/Min [facility] Comment on above: GFR estimated refere nce range: According to KDOQI guidelines, <60 ml/min/1.73m2 is sufficient to diagnose a patient with chronic kidney disease. Pharmacy Creatinine Clearance (Chem N/A [facility] Nucleated erythrocytes [Pres ence] in Blood by Automated countOrdered By: Becky Romeo on 08-14-2022 Nucleated RBC Auto Ql (Bld) 0.3 /100{WBC} 0-0.5 [facility] Platelet mean volume Auto (B ld) [Entitic vol]Ordered By: Becky Romeo on 08-14-2022 Platelet mean volume (Bld) [Entitic vol] 9.0 fL 6.3-10.7 [facility] Platelets [#/volume] in Bloo d by Automated countOrdered By: Becky Romeo on 08-14-2022 Platelets (Bld) [#/Vol] 232 10*3/uL Normal 150- 450 10*3/uL [facility] Protein [Mass/volume] in Ser um or PlasmaOrdered By: Becky Romeo on 08-14-2022 Protein [Mass/Vol] 6.6 g/dL 6.1-7.9 [facility] Serum or plasma alanine kinsey otransferase measurement without P-5'-P (enzymatic activiOrdered By: Becky Romeo on 08-14-2022 ALT No additional P-5'-P [Catalytic activity/Vol] 34 U/L 10-60 [facility] Serum or plasma albumin/glob ulin mass ratioOrdered By: Becky Romeo on 08-14-2022 Albumin/Globulin [Mass ratio] 1.4 {ratio} [facility] Serum or plasma alkaline jean claude sphatase measurement (enzymatic activity/volume)Ordered By: Becky Romeo on 08-14-2022 ALP [Catalytic activity/Vol] 69 U/L Normal 32-92 U/L [facility] Serum or plasma anion gap de terminationOrdered By: Becky Romeo on 08-14-2022 Anion gap [Moles/Vol] 9.7 mmol/L 6.0-15.0 [facility] Serum or plasma aspartate am inotransferase measurement (enzymatic activity/volume)Ordered By: Becky Romeo on 08-14-2022 AST [Catalytic activity/Vol] 30 U/L Normal 10-42 U/L [facility] Serum or plasma calcium daily urement (mass/volume)Ordered By: eBcky Romeo on 08-14-2022 Calcium [Mass/Vol] 9.2 mg/dL 8.2-10.2 [facility] Serum or plasma chloride julisa surement (moles/volume)Ordered By: Becky Romeo on 08-14-2022 Chloride [Moles/Vol] 108 mmol/L Normal 95-114 mmol/L [facility] Serum or plasma glucose daily urement (mass/volume)Ordered By: Becky Romeo on 08-14-2022 Glucose [Mass/Vol] 87 mg/dL Normal 70-100 mg/dL [facility] Comment on above: ADA recommended refe rence rangeRandom Glucose Reference Range is dependent on time and content of last meal. Glucose of more than 200 mg/dL in a nonstressed, ambulatory subject supports the diagnosis of Diabetes Mellitus. Serum or plasma high density lipoprotein (HDL) cholesterol measurementOrdered By: Becky Romeo on 08-14-2022 Cholesterol in HDL [Mass/Vol] 32 mg/dL Low 35-85 mg/dL [facility] Comment on above: HDL CHOL ATP-III CLA SSIFICATION Cardiovascular RiskHDL > or equal to 60 mg/dL LOWHDL < 40 mg/dL HIGH Serum or plasma potassium me asurement (moles/volume)Ordered By: Becky Romeo on 08-14-2022 Potassium [Moles/Vol] 3.8 mmol/L 3.5-5.1 [facility] Serum or plasma sodium measu rement (moles/volume)Ordered By: Becky Romeo on 08-14-2022 Sodium [Moles/Vol] 137 mmol/L Normal 136-146 mmol/L [facility] Serum or plasma total biliru bin measurement (mass/volume)Ordered By: Becky Romeo on 08-14-2022 Bilirubin [Mass/Vol] 0.7 mg/dL 0.3-1.2 [facility] Serum or plasma total carbon dioxide measurement (moles/volume)Ordered By: Becky Romeo on 08-14-2022 CO2 [Moles/Vol] 23.1 mmol/L 22.0-30.0 [facility] Serum or plasma total choles terol/high density lipoprotein (HDL) cholesterol mass ratOrdered By: Becky Romeo on 08-14-2022 Cholesterol.total/Vero sterol in HDL [Mass ratio] 6.1 {ratio} <5.0 [facility] Serum or plasma urea nitroge n measurement (mass/volume)Ordered By: Becky Romeo on 08-14-2022 Urea nitrogen [Mass/Vol] 5 mg/dL Low 9-23 mg/dL [facility] TSH DL <= 0.005 mIU/L QnOrde red By: Becky Romeo on 08-14-2022 TSH Qn 1.77 m[IU]/L 0.45-5.33 [facility] Thyroid Stimulating Hormoneo n 08-14-2022 TSH Qn 1.77 m[IU]/L Normal 0.45-5.33 [facility] Comment on above: Result Comment: PERF ORMED BY: [place] [address] PATHOLOGIST CORE LOADER KULWANT GOMEZ M.D. Performed By: #### C BC, TSH3, CMP, A1C WTH eA, LIPID #### [facility] [address] Triglyceride [Mass/volume] i n Serum or PlasmaOrdered By: Becky Romeo on 08-14-2022 Triglyceride [Mass/Vol] 84 mg/dL 35-149 [facility] Comment on above: TRIG ATP III CLASSIF ICATIONTRIG less than 150 mg/dL NormalTRIG 150-199 mg/dL Borderline highTRIG 200-500 mg/dL High TRIG greater than 500 mg/dL Very highStandard traceable to the Center for Disease Conrtrol and Prevention (CDC) test method. WBC Auto (Bld) [#/Vol]Ordere d By: Becky Romeo on 08-14-2022 WBC (Bld) [#/Vol] 5.6 10*3/uL 3.8-11.6 [facility] XR chest 2V*on 08-13-2022 XR chest 2V* [facility] Main [place] [address] [place] [address] XRay Report Signed Patient: Edwige Patterson MR#: [id number] : 2000 Acct:[id number] Age/Sex: 22 / F ADM Date: 08/13/22 Loc: [facility] Room: Type: [facility] Attending Dr: Becky Romeo DO Copies to: [...] Misbah Mast M.D.08/13/2022 3:23 PM Dictation Location: [place] [address] Transcribed By: [facility] 08/13/22 1523 Dictated By: Misbah Mast DO 08/13/22 1522 Signed By: 08/13/22 1523 Normal [facility] XR chest 2V* [facility] [employer] Other XR chest 2V* [facility] [employer] Other XR chest 2V* [address] [place] [address] [employer] Other XR chest 2V* [place] [address] [facility] [employer] Other XR chest 2V* XRay Report [employer] Other XR chest 2V* Signed [employer] Other XR chest 2V* Patient: Edwige Patterson MR#: [id number] [employer] Other XR chest 2V* [id number] [employer] Other XR chest 2V* : 2000 Acct:[id number] [employer] Other XR chest 2V* Age/Sex: 22 / F ADM Date: 08/13/22 [employer] Other XR chest 2V* Loc: [facility] Room: Type : [facility] [employer] Other XR chest 2V* Attending Dr: Diane Romeo DO [employer] Other XR chest 2V* Copies to: Becky Romeo, [employer] Other XR chest 2V* Ordering Provider: Becky Romeo DO [employer] Other XR chest 2V* Date of Service: 08/13/22 [employer] Other XR chest 2V* XR/XR chest 2V*: Cough, unspecified type [employer] Other XR chest 2V* Plain film chest2 view [employer] Other XR chest 2V* HISTORY:Productive cough. Wheezing. [employer] Other XR chest 2V* COMPARISON:None [facility] [employer] Other XR chest 2V* FINDINGS: The cardiac, mediastinal and hilar silhouettes are within normal limits. No acute lung [employer] Other XR chest 2V* process, pleural effusion or pneumothorax identified. Bony structures are intact. [employer] Other XR chest 2V* XR/XR chest 2V* [employer] Other XR chest 2V* IMPRESSION: No acute process. [employer] Other XR chest 2V* Impression dictated by: Misbah Mast M.D.08/13/2022 3:23 PM [employer] Other XR chest 2V* Dictation Location: [place] [address] [employer] Other XR chest 2V* Transcribed By: DOMINIQUE 08/13/22 [facility] [employer] Other XR chest 2V* Dictated By: Misbah Mast DO 08/13/22 [facility] [employer] Other XR chest 2V* Signed By: [employer] Other XR chest 2V* 08/13/22 [facility] [employer] [facility] [employer] Other Quick Strepon 08-05-2022 S. pyogenes Org specific cx Ql (Throat) Positive [facility] [employer] Other Quick Strep [employer] [facility] [employer] Other COVID Quick Testingon 2021 Result Negative [employer] Other COVID + FLU Quick Testingon 07-03-2021 SARS-CoV-2 (COVID-19) RNA THA+probe Ql (Unsp spec) Positive [employer] Other COVID + FLU Quick Testing Negative [employer] Other Q - THINPREP(R) TIS AND HPV MRNA E6/E7 RFL HPV 16/18/45on 06-20-2021 CLINICAL INFORMATION: None given Normal [facility] Specialist Comment on above: Order Comment: [facility] performed at: [facility], [address] [place] [address], [phone], Wastewater Plant Operator: Ramana Tayolr MD Testing performed at: [facility], [address] [place] [address], [phone], Wastewater Plant Operator: Mani Anderson [facility] Collection Date/Time: [facility] Results Received Date/Time: [facility] Reported Date/Time: FASTING: UNKNOWN Result Comment: [[facility] ] Performed By: #### 9 1414 #### [facility] Default [address] [place] [address] COMMENT SEE NOTE Normal [facility] Comment on above: Order Comment: [facility] Testing performed at: [employer], [address], Wastewater Plant Operator: Ramana Taylor MD Testing performed at: [facility], [address] [place], [address], Wastewater Plant Operator: Mani Anderson [facility] Collection Date/Time: [facility] [...] 9 1414 #### [facility] Default [address] [place] [address] COMMENT: This Pap test has been evaluated with computer assisted technology. Normal [facility] Specialist Comment on above: Order Comment: [facility] Testing performed at: [employer], [address] [place] [address], Wastewater Plant Operator: Ramana Taylor MD Testing performed at: [facility], [address] [place] [address], [address] [place] [address], Wastewater Plant Operator: Mani Anderson [facility] Collection Date/Time: [facility] Results Received Date/Time: [facility] Reported Date/Time: FASTING: UNKNOWN Result Comment: [QBU ] Performed By: #### 9 1414 #### [facility] Default [address] [place], [place] [id number] GARDEN MACHINERY MECHANIC: SEE NOTE Normal See Note: [facility] Comment on above: Order Comment: [facility] Testing performed at: [employer], [address] [place] [address], [address] [place] [address], Wastewater Plant Operator: Ramana Taylor MD Testing performed at: [facility], [address] [place] [address], [address] [place] [address], Wastewater Plant Operator: Mani Anderson [facility] Collection Date/Time: [facility] Results Received Date/Time: [facility] Reported Date/Time: FASTING: UNKNOWN Result Comment: Refe rence Range: ZL, CT(ASCP) CT screening location: [place] [address]. [QBU] Performed By: #### 9 1414 #### [facility] Default [address] [place] [address] GENERAL CATEGORIZATION: EPITHELIAL CELL ABNORMALITY Abnormal [facility] Comment on above: Order Comment: [facility] Testing performed at: [facility], [address] [place] [address], [address] [place] [address], [address] [place] [address], Wastewater Plant Operator: Ramana Taylor MD Testing performed at: [facility], [address] [place] [address], [address] [place] [address], Wastewater Plant Operator: Mani Anderson [facility] Collection Date/Time: [facility] Results Received Date/Time: [facility] Reported Date/Time: FASTING: UNKNOWN Result Comment: [QBU ] Performed By: #### 9 1414 #### [facility] Default [address] [place] [address] HPV mRNA E6/E7 Detected Abnormal Not Detected [facility] Comment on above: Order Comment: [facility] performed at: [facility], [address] [place] [address], [address] [place] [address], [address] [place] [address], Wastewater Plant Operator: Ramana Taylor MD Testing performed at: [facility], [address] [place] [address], [address] [place] [address], Wastewater Plant Operator: Mani Anderson [facility] Collection Date/Time: [facility] Results Received Date/Time: [facility] Reported Date/Time: FASTING: UNKNOWN Result Comment: Meth odology: Photostatic Copy Maker-Mediated Amplification This assay detects E6/E7 viral messenger RNA (mRNA) from 14 high-risk HPV types (16,18,31,33,35,39,45,51,52,56,58,59,66,68). The analytical performance characteristics of this assay have been determined by [employer]. The modifications have not been cleared or approved by the FDA. This assay has been validated pursuant to the CLIA regulations and is used for clinical purposes. For additional information, please refer to http://education.TechPepper.Lionseek/faq/AIO479d0 (This link if provided for information/ educational purposes only.) [O6K] Performed By: #### 9 1414 #### [facility] Default [address] [place] [address] INTERPRETATION/RESULT: Atypical Squamous Cells of Undetermined Significance (ASC-US) Abnormal [facility] Specialist Comment on above: Order Comment: [facility] Testing performed at: [facility], [address] [place] [address], [address] [place] [address], [address] [place] [address], Wastewater Plant Operator: Ramana Taylor MD Testing performed at: [facility], [address] [place] [address], [address] [place] [address], Wastewater Plant Operator: Mani Anderson [facility] Collection Date/Time: [facility] Results Received Date/Time: [facility] Reported Date/Time: FASTING: UNKNOWN Result Comment: [QBU ] Performed By: #### 9 1414 #### [facility] Default [address] [place] [id number] LMP: None given Normal [facility] Specialist Comment on above: Order Comment: [facility] Testing performed at: [facility], [address] [place] [address], [address] [place] [address], [address] [place] [address], Wastewater Plant Operator: Ramana Taylor MD Testing performed at: [facility], [address] [place] [address], [phone], Wastewater Plant Operator: Mani Anderson [facility] Collection Date/Time: [facility] Results Received Date/Time: [facility] Reported Date/Time: FASTING: UNKNOWN Result Comment: [QBU ] Performed By: #### 9 1414 #### [facility] Default [address] [place] [id number] PATHOLOGIST: SEE NOTE Normal [facility] Linen Room Custodian Comment on above: Order Comment: [facility] Testing performed at: [employer], [employer], [address] [place] [address], [address] [place] [address], [address] [place] [address], Wastewater Plant Operator: Ramana Taylor MD Testing performed at: [facility], [address] [place], [address], Wastewater Plant Operator: Mani Anderson [facility] Collection Date/Time: [facility] Results Received Date/Time: [facility] Reported Date/Time: FASTING: UNKNOWN Result Comment: Vance Anderson MD, PhD, M.B.A. Board Certified in Anatomic and Clinical Pathology Board Certified in Cytopathology (electronic signature) For questions regarding this report call Anatomic Pathology at [phone] [QBU] Performed By: #### 9 1414 #### [facility] Default [address] [place] [address] PREV. BX: None given Normal [facility] Comment on above: Order Comment: [facility] Testing performed at: [facility], [address] [place] [address], [address] [place] [address], [phone], Wastewater Plant Operator: Ramana Taylor MD Testing performed at: [facility], [address] [place], [address], Wastewater Plant Operator: Mani Anderson [facility] Collection Date/Time: [facility] Results Received Date/Time: [facility] Reported Date/Time: FASTING: UNKNOWN Result Comment: [QBU ] Performed By: #### 9 1414 #### [facility] Default [address] [place] [address] PREV. PAP: None given Normal [facility] Comment on above: Order Comment: [facility] Testing performed at: [facility], [address] [place] [address], [address] [place] [address], [phone], Wastewater Plant Operator: Ramana Taylor MD [facility] performed [facility], [address] [place], [phone], Wastewater Plant Operator: Mani Anderson Quest Collection Date/Time: [facility] Results Received Date/Time: [facility] Reported Date/Time: FASTING: UNKNOWN Result Comment: [QBU ] Performed By: #### 9 [id number] #### [facility] Default [address] [place] [address] SOURCE: None given Normal [facility] Specialist Comment on above: Order Comment: [facility] Testing performed at: [facility], [address] [place] [address], [address] [place] [address], [address] [place] [address], Wastewater Plant Operator: Ramana Taylor MD Testing performed at: [facility], [address] [place] [address], [address] [place] [address], Wastewater Plant Operator: aMni Anderson Quest Collection Date/Time: [facility] Results Received Date/Time: [facility] Reported Date/Time: FASTING: UNKNOWN Result Comment: [QBU ] Performed By: #### 9 [id number] #### [facility] Default [address] [place] [address] STATEMENT OF ADEQUACY: SEE NOTE Normal [facility] Comment on above: Order Comment: [facility] Testing performed at: [facility], [address] [place] [address], [address] [place] [address], [address] [place] [address], Wastewater Plant Operator: Ramana Taylor MD Testing performed at: [facility], [address] [place] [address], [address] [place] [address], Wastewater Plant Operator: Mani Anderson Quest Collection Date/Time: [facility] Results Received Date/Time: [facility] Reported Date/Time: FASTING: UNKNOWN Result Comment: Sati sfactory for evaluation. Endocervical/transformation zone component present. [QBU] Performed By: #### 9 [id number] #### [facility] Default [address] [place] [address] XR Finger Lefton 06-20-2021 XR Finger Left FINDINGS: PIP soft tissue swelling. Minimally distracted volar plate fracture, middle phalangeal base. Minimal arthritis. IMPRESSION: Minimally distracted 4th PIP joint volar plate fracture Report reported and signed by Hubert Lewis on 06/20/2021 1443 Normal [facility] Specialist PREG HCG QUALon 05-19-2020 , QUAL Negative Normal NEGATIVE [facility] Comment on above: Performed By: #### P REG #### [facility] [address] [place], [place] [address] Liam Ayala COVID-19 PCRon 05-14-2020 SARS-CoV-2 (COVID-19) RNA THA+probe Ql (Unsp spec) Not detected Normal Not Detected [facility] Comment on above: Result Comment: This nucleic acid amplification test was developed and its performance characteristics determined by [facility]. Nucleic acid amplification tests include PCR and [...] Performed By: #### C VDSTAT, CVDPCR #### [facility] [address] [place], [place] [address] Liam Ayala PRIORITY COVID PROCESSINGon 05-14-2020 Comment Comment Normal [facility] Comment on above: Result Comment: Rece ived Performed By: #### C VDSTAT, CVDPCR #### [facility] [address] [place], [place] [address] Liam Ayala Vital Signs Date Time Vital Sign Value Performing Clinician Facility 02-14-2025 17:17-0400 Body height 167.6 cm [facility] Work Phone: [facility] 02-14-2025 17:17-0400 Body mass index (BMI) [Ratio] 38.9 kg/m2 Jovita Floro CNM Work Phone: [facility] 02-14-2025 17:17-0400 Body weight 109.32 kg Jovita ROBERTSM Work Phone: [facility] 02-14-2025 17:17-0400 Diastolic blood pressure 78 mm[Hg] Jovita Salas CNM Work Phone: [facility] 02-14-2025 17:17-0400 Heart rate 78 /min Jovita Salas CNM Work Phone: [facility] 02-14-2025 17:17-0400 Respiratory rate 18 /min Jovita Salas CNM Work Phone: [facility] 02-14-2025 17:17-0400 SaO2% (BldA) [Mass fraction] 98 % Jovita Salas CNM Work Phone: [facility] 02-14-2025 17:17-0400 Systolic blood pressure 130 mm[Hg] Jovita Salas CNM Work Phone: [facility] 01-11-2025 09:15-0400 Body height 170.18 cm Becky Romeo DO Work Phone: [facility] 01-11-2025 09:15-0400 Body mass index (BMI) [Ratio] 37.6 kg/m2 Becky Romeo DO Work Phone: [facility] 01-11-2025 09:15-0400 Body weight 109.1 kg Becky Romeo DO Work Phone: [facility] 12-03-2024 14:00-0400 Heart rate 90 /min Ness Majors [employer] GARDEN[employer] SPECIALIST Work Phone: [facility] 12-03-2024 13:44-0400 Body height 167.6 cm Ness Majors URBAN GARDENING SPECIALIST Work Phone: [facility] 12-03-2024 13:44-0400 Body mass index (BMI) [Ratio] 39.38 kg/m2 Ness Majors URBAN GARDENING SPECIALIST Work Phone: [facility] 12-03-2024 13:44-0400 Body weight 110.68 kg Nesskya Montez URBAN GARDENING SPECIALIST Work Phone: [facility] 12-03-2024 13:44-0400 Diastolic blood pressure 82 mm[Hg] Ness Adrianocuauhtemoc URBAN GARDENING SPECIALIST Work Phone: [facility] 12-03-2024 13:44-0400 Respiratory rate 18 /min Ness Adrianocuauhtemoc URBAN GARDENING SPECIALIST Work Phone: [facility] 12-03-2024 13:44-0400 SaO2% (BldA) [Mass fraction] 97 % Ness Adriano [employer]RBAN GARDENING SPECIALIST Work Phone: [facility] 12-03-2024 13:44-0400 Systolic blood pressure 134 mm[Hg] Ness Adrianocuauhtemoc URBAN GARDENING SPECIALIST Work Phone: [facility] 11-24-2024 13:12-0400 SaO2% (BldA) [Mass fraction] 94 % Becky Ousmane DO [facility] Phone[facility] 11-24-2024 13:00-0400 Body temperature 98.01 [degF] Becky Ousmane DO Work Phone: [facility] 11-24-2024 13:00-0400 Diastolic blood pressure 76 mm[Hg] Becky Ousmane DO Work Phone: [facility] 11-24-2024 13:00-0400 Heart rate 89 /min Becky Ousmane DO Work Phone: [facility] 11-24-2024 13:00-0400 Respiratory rate 16 /min Becky Ousmane DO Work Phone: [facility] 11-24-2024 13:00-0400 Systolic blood pressure 117 mm[Hg] Becky Ousmane DO Work Phone: [facility] [employer] 08-10-2024 16:06-0500 Body height 167.6 cm Jovita ROBERTS Work Phone: [facility] 08-10-2024 16:06-0500 Body mass index (BMI) [Ratio] 39.64 kg/m2 Jovita Salas CNM Work Phone: [facility] 08-10-2024 16:06-0500 Body weight 111.4 kg Jovita ROBERTS Work Phone: [facility] 08-10-2024 16:06-0500 Diastolic blood pressure 70 mm[Hg] Jovita ROBERTS Work Phone: [facility] 08-10-2024 16:06-0500 Systolic blood pressure 118 mm[Hg] Jovita ROBERTS Work Phone: [facility] 08-05-2024 10:19-0500 Body temperature 98.4 [degF] Priyank Gaspar MD Work Phone: [facility] 08-05-2024 10:19-0500 Diastolic blood pressure 56 mm[Hg] Priyank Gaspar MD Work Phone: [email or web address] 08-05-2024 10:19-0500 Heart rate 114 /min Priyank Gaspar MD Work Phone: [facility] [employer] 08-05-2024 10:19-0500 Respiratory rate 18 /min Priyank Gaspar MD Work Phone: [facility] 08-05-2024 10:19-0500 SaO2% (BldA) [Mass fraction] 97 % Priyank Gaspar MD Work Phone: [facility] 08-05-2024 10:19-0500 Systolic blood pressure 97 mm[Hg] Priyank Gaspar MD Work Phone: [facility] 07-20-2024 18:12-0500 SaO2% (BldA) [Mass fraction] 97 % Yoli Lal MD Work Phone: [facility] 07-20-2024 15:37-0500 Body height 170.2 cm Yoli Lal MD Work Phone: [employer] 07-20-2024 15:37-0500 Body mass index (BMI) [Ratio] 37.59 kg/m2 Yoli Lal MD Work Phone: [facility] [employer] 07-20-2024 15:37-0500 Body temperature 98.29 [degF] Yoli Lal MD Work Phone: [employer] 07-20-2024 15:37-0500 Body weight 108.86 kg Yoli Lal MD Work Phone: [facility] [employer] 07-20-2024 15:37-0500 Diastolic blood pressure 76 mm[Hg] Yoli Lal MD Work Phone: [facility] 07-20-2024 15:37-0500 Heart rate 100 /min Yoli Lal MD Work Phone: [employer] 07-20-2024 15:37-0500 Respiratory rate 18 /min Yoli Lal MD Work Phone: [facility] [employer] 07-20-2024 15:37-0500 Systolic blood pressure 110 mm[Hg] Yoli Lal MD Work Phone: [facility] 05-24-2024 08:46-0500 Body height 167.6 cm Destinee Britton MD Work Phone: [facility] 05-24-2024 08:46-0500 Body mass index (BMI) [Ratio] 39 kg/m2 Destinee Britton MD Work Phone: [facility] 05-24-2024 08:46-0500 Body weight 109.59 kg Destinee Britton MD Work Phone: [facility] 05-24-2024 08:46-0500 Diastolic blood pressure 74 mm[Hg] Destinee Britton MD Work Phone: [facility] 11-18-2024 08:46-0500 Heart rate 91 /min Destinee Britton MD Work Phone: [facility] 05-24-2024 08:46-0500 Respiratory rate 18 /min Destinee Britton MD Work Phone: [facility] 05-24-2024 08:46-0500 SaO2% (BldA) [Mass fraction] 97 % Destinee Britton MD Work Phone: [facility] 05-24-2024 08:46-0500 Systolic blood pressure 114 mm[Hg] Destinee Britton MD Work Phone: [facility] 05-20-2024 15:22-0500 Body height 167.6 cm Destinee Britton MD Work Phone: [facility] 05-20-2024 15:22-0500 Body mass index (BMI) [Ratio] 39.96 kg/m2 Destinee Britton MD Work Phone: [facility] 05-20-2024 15:22-0500 Body weight 112.31 kg Destinee Britton MD Work Phone: [facility] 05-20-2024 15:22-0500 Diastolic blood pressure 72 mm[Hg] Destinee Britton MD Work Phone: [facility] 05-20-2024 15:22-0500 Heart rate 116 /min Destinee Britton MD Work Phone: [facility] 05-20-2024 15:22-0500 Respiratory rate 18 /min Destinee Britton MD Work Phone: [facility] 05-20-2024 15:22-0500 SaO2% (BldA) [Mass fraction] 99 % Destinee Britton MD Work Phone: [facility] 05-20-2024 15:22-0500 Systolic blood pressure 134 mm[Hg] Destinee Britton MD Work Phone: [facility] 05-10-2024 13:59-0500 Body mass index (BMI) [Ratio] 39.87 kg/m2 Jovita Salas CNM Work Phone: [facility] 05-10-2024 13:59-0500 Body weight 112.04 kg Jovita ROBERTS Work Phone: [facility] 11-11-2023 14:36-0400 Diastolic blood pressure 76 mm[Hg] [facility] 11-11-2023 14:36-0400 Heart rate 92 /min [facility] 11-11-2023 14:36-0400 Respiratory rate 20 /min [facility] 11-11-2023 14:36-0400 Systolic blood pressure 104 mm[Hg] [facility] 10-10-2023 11:51-0400 Body height 170.18 cm [facility] 10-10-2023 11:51-0400 Body mass index (BMI) [Ratio] 38.2 kg/m2 [facility] 10-10-2023 11:51-0400 Body weight 110.67 kg [facility] 10-10-2023 11:51-0400 Diastolic blood pressure 81 mm[Hg] [facility] 10-10-2023 11:51-0400 Heart rate 78 /min [facility] 10-10-2023 11:51-0400 SaO2% (BldA) [Mass fraction] 96 % [facility] 10-10-2023 11:51-0400 Systolic blood pressure 128 mm[Hg] [facility] 07-09-2023 13:00-0500 Body height 170.18 cm Becky Romeo Other [employer] [facility] [employer] Other 07-09-2023 13:00-0500 Body mass index (BMI) [Ratio] 36.96 kg/m2 Becky Romeo Other [employer] Other 07-09-2023 13:00-0500 Body temperature 97.6 [degF] Becky Romeo Other [employer] [facility] [employer] Other 07-09-2023 13:00-0500 Body weight 107.05 kg Becky Romeo Other [employer] Other 07-09-2023 13:00-0500 Diastolic blood pressure 69 mm[Hg] Becky Romeo Other [employer] Other 07-09-2023 13:00-0500 Respiratory rate 20 /min Becky Romeo Other [employer] Other 07-09-2023 13:00-0500 SaO2% (BldA) [Mass fraction] 97 % Becky Romeo Other [employer] Other 07-09-2023 13:00-0500 Systolic blood pressure 109 mm[Hg] Becky Romeo Other [employer] Other 12-09-2022 11:05-0400 Body height 170.18 cm Lexy Kraft Other [employer] Other 12-09-2022 11:05-0400 Body mass index (BMI) [Ratio] 38.52 kg/m2 Lexy Menamond Other [employer] Other 12-09-2022 11:05-0400 Body temperature 97.8 [degF] Lexy Kraft Other [employer] Other 12-09-2022 11:05-0400 Body weight 111.59 kg Lexy Menamond Other [employer] Other 12-09-2022 11:05-0400 Respiratory rate 18 /min Lexy Menamond Other [employer] Other 12-09-2022 11:05-0400 SaO2% (BldA) [Mass fraction] 98 % Lexy Abena Other [employer] Other 08-12-2022 16:00-0500 Body height 170.18 cm Becky Romeo Other [employer] Other 08-12-2022 16:00-0500 Body mass index (BMI) [Ratio] 39.62 kg/m2 Becky Romeo Other [employer] Other 08-12-2022 16:00-0500 Body weight 114.76 kg Becky Romeo Other [employer] Other 08-12-2022 16:00-0500 Diastolic blood pressure 71 mm[Hg] Becky Romeo Other [employer] Other 08-12-2022 16:00-0500 Respiratory rate 16 /min Becky Romeo Other [employer] Other 08-12-2022 16:00-0500 SaO2% (BldA) [Mass fraction] 98 % Becky Romeo Other [employer] Other 08-12-2022 16:00-0500 Systolic blood pressure 107 mm[Hg] Becky Romeo Other [employer] Other 02-08-2022 12:00-0400 Body height 167.64 cm Joselin Wilkins Other [employer] Other 02-06-2022 18:45-0400 Body height 167.64 cm Lexy Kraft Other [employer] Other 02-06-2022 18:45-0400 Body mass index (BMI) [Ratio] 37.12 kg/m2 Lexy Kraft Other [employer] Other 02-06-2022 18:45-0400 Body temperature 97.3 [degF] Lexy Kraft Other [employer] Other 02-06-2022 18:45-0400 Body weight 104.33 kg Lexy Kraft Other [employer] Other 02-06-2022 18:45-0400 Respiratory rate 18 /min Lexy Kraft Other [employer] Other 02-06-2022 18:45-0400 SaO2% (BldA) [Mass fraction] 97 % Lexy Kraft Other [employer] Other Encounters Encounter Date Encounter Type Care Provider Facility Start: 03-02-2025 End: 03-02-2025 Treatment Yran Brfab CONTRACTING SUPPORT SPECIALIST [facility] Comment on above: Sacrococcygeal disor ders, not elsewhere classified (Primary Dx) Start: 03-02-2025 End: 03-02-2025 Bamboo flowsheet Ryan Brfab CONTRACTING SUPPORT SPECIALIST [facility] Start: 03-02-2025 End: 03-02-2025 Bamboo flowsheet Ryan Denita CONTRACTING SUPPORT SPECIALIST [facility] Start: 02-28-2025 End: 02-28-2025 Treatment Delia Kwan PT [facility] Comment on above: Sacrococcygeal disor ders, not elsewhere classified (Primary Dx) Start: 02-28-2025 End: 02-28-2025 Bamboo flowsheet Delia Kwan PT [facility] Start: 02-28-2025 End: 02-28-2025 Bamboo flowsisis Kwan PT [facility] Start: 02-23-2025 End: 02-23-2025 ambulatory [facility]AD [facility] Start: 02-21-2025 End: 02-21-2025 ambulatory Ty Fairbanks MD Facility:[facility] Start: 02-15-2025 End: 02-15-2025 ambulatory Kem Costa CONTRACTING SUPPORT SPECIALIST [facility] Start: 02-15-2025 End: 02-15-2025 Telephone encounter Destinee Britton MD Work Phone: [facility] Comment on above: Sacrococcygeal disor ders, not elsewhere classified (Primary Dx) Start: 02-14-2025 End: 02-14-2025 Office outpatient visit 15 minutes Jovita L [facility] Comment on above: PCOS (polycystic ova melvin syndrome) (Primary Dx); Encounter for initial prescription of contraceptive pills; Insulin resistance Start: 02-14-2025 End: 02-14-2025 Bamboo flowsheet Jovita L Floro CNM Work Phone: [facility] Jamia OBSHAILESHN Start: 02-14-2025 End: 02-14-2025 Bamboo flowsheet Jovita L Floro CNM [facility] Start: 02-01-2025 End: 02-01-2025 Treatment Kem Costa CONTRACTING SUPPORT SPECIALIST [facility] Comment on above: Sacrococcygeal disor ders, not elsewhere classified (Primary Dx) Start: 02-01-2025 End: 02-01-2025 Bamboo flowsheet Kem Costa CONTRACTING SUPPORT SPECIALIST [facility] Start: 02-01-2025 End: 02-01-2025 Bamboo flowsheet Kem Costa CONTRACTING SUPPORT SPECIALIST [facility] Start: 01-27-2025 End: 01-27-2025 Treatment Ofelia Blakely CONTRACTING SUPPORT SPECIALIST [facility] Comment on above: Sacrococcygeal disor ders, not elsewhere classified (Primary Dx) Start: 01-27-2025 End: 01-27-2025 Bamboo flowsheet Ofelia Blakely CONTRACTING SUPPORT SPECIALIST [facility] Start: 01-27-2025 End: 01-27-2025 Bamboo flowsheet Ofelia Blakely CONTRACTING SUPPORT SPECIALIST [facility] Start: 01-24-2025 End: 01-25-2025 Evaluation Delia Aquiles PT [facility] Comment on above: Sacrococcygeal disor ders, not elsewhere classified (Primary Dx) Start: 01-24-2025 End: 01-24-2025 Bamboo flowsheet Delia Kwan PT [facility] Start: 01-24-2025 End: 01-24-2025 Bamboo flowsheet Delia Kwan PT [facility] Start: 01-20-2025 End: 01-20-2025 ambulatory [facility] Start: 01-11-2025 End: 01-11-2025 ambulatory Becky Romeo DO Work Phone: [facility] Work Phone: Start: 01-11-2025 End: 01-11-2025 Patient encounter procedure Fel[facility] Work Phone: Start: 01-06-2025 End: 01-06-2025 ambulatory Becky Romeo DO Work Phone: [facility] Work Phone: Start: 01-06-2025 End: 01-06-2025 Patient encounter procedure Mack Zimmerman DO [facility] Work Phone: Start: 01-05-2025 End: 01-05-2025 ambulatory Becky Romeo DO Facility:[facility] Start: 12-27-2024 End: 12-27-2024 ambulatory Ty Fairbanks MD Facility:[facility] Start: 12-16-2024 End: 12-16-2024 ambulatory [facility] Start: 12-03-2024 End: 12-03-2024 Telephone encounter Destinee Britton MD Work Phone: [facility] Start: 12-03-2024 End: 12-03-2024 Office outpatient visit 25 minutes Ness Montez [employer] GARDENING SPECIALIST Work Phone: [facility] Comment on above: Nausea (Primary Dx); Pain of upper abdomen Start: 12-01-2024 Non-patient / Non-visit Lacey Morton JURY CONSULTANT [facility] Work Phone: Start: 11-24-2024 End: 11-24-2024 Emergency department patient visit BECKY Barber [facility] Comment on above: Acute exacerbation o f chronic low back pain (Primary Dx) Start: 11-11-2024 End: 11-11-2024 ambulatory [facility] Start: 10-14-2024 End: 10-14-2024 ambulatory [facility] Start: 09-17-2024 End: 09-17-2024 ambulatory NUBIA Cavazos [facility] Start: 09-16-2024 End: 09-16-2024 ambulatory [facility] Start: 09-13-2024 End: 09-13-2024 ambulatory Ty Fairbanks MD Facility:[facility] Start: 08-30-2024 End: 08-30-2024 ambulatory Ty Fairbanks MD Facility:[facility] Start: 08-26-2024 End: 08-26-2024 ambulatory CHAD [facility] Start: 08-16-2024 End: 08-16-2024 ambulatory Ty Fairbanks MD Facility:[facility] Start: 08-12-2024 End: 08-12-2024 ambulatory [facility] Start: 08-10-2024 End: 08-10-2024 Office outpatient visit [...] patient visit Priyank Gaspar MD Work Phone: [facility] Emergency Department Comment on above: Acute exacerbation o f chronic low back pain (Primary Dx) Start: 07-20-2024 End: 07-20-2024 Emergency department patient visit Yoli Lal MD Work Phone: [facility] Emergency Department Comment on above: Strain of lumbar reg ion, initial encounter (Primary Dx); Abnormal computed tomography of lumbar spine Start: 07-15-2024 End: 07-15-2024 ambulatory [facility] Start: 06-25-2024 End: 06-25-2024 ambulatory [facility] Start: 06-02-2024 End: 07-16-2024 Refill Destinee Britton MD Work Phone: [facility] Comment on above: Encounter for initia l prescription of contraceptive pills Start: 05-28-2024 End: 05-28-2024 ambulatory NUBIA Dirk [facility] Start: 05-27-2024 End: 05-27-2024 ambulatory [facility] Start: 05-24-2024 End: 05-24-2024 Bamboo flowsheet Destinee [...] Other acne; Hirsutism Start: 04-22-2024 End: 04-22-2024 [facility] Start: 03-25-2024 End: 03-25-2024 [facility] Start: 11-11-2023 End: 11-11-2023 ambulatory [facility] Work Phone: Start: 11-11-2023 End: 11-11-2023 Patient encounter procedure [facility] Phys[facility] Work Phone: Start: 10-10-2023 End: 10-10-2023 ambulatory [facility] Work Phone: Start: 10-10-2023 End: 10-10-2023 Patient encounter procedure [facility] Work Phone: Start: 07-09-2023 End: 07-09-2023 ambulatory Becky Pierrearvinyumiko Other [employer] Other Start: 07-09-2023 Office outpatient vi sit 25 minutes Becky Pierrefariba [facility] Start: 12-11-2022 End: 12-11-2022 ambulatory Becky Pierrearvinyumiko Other [employer] Other Start: 12-11-2022 Telephone encounter Becky Romero i [facility] Start: 12-09-2022 Office outpatient vi sit 15 minutes Lexy Kraft [facility] Start: 12-09-2022 End: 12-09-2022 [address]IAN [address] Other Start: 12-09-2022 End: 12-09-2022 Patient encounter procedure PHYSICIAN NO [facility] Work Phone: Start: 09-27-2022 End: 09-27-2022 ambulatory Becky Branarvinyumiko Other [employer] Other Start: 09-27-2022 Telephone encounter Becky Romero i [facility] Start: 08-14-2022 End: 08-14-2022 ambulatory Becky Romeo Facility:[facility] Start: 08-14-2022 End: 08-14-2022 ambulatory PHYSICIAN NO [facility] Work Phone: Start: 08-14-2022 End: 08-14-2022 Patient encounter procedure PHYSICIAN NO [facility] Work Phone: Start: 08-13-2022 End: 08-13-2022 ambulatory Becky Pierrearvini Facility:[facility] Start: 08-13-2022 End: 08-13-2022 Patient encounter procedure PHYSICIAN NO [facility] Start: 08-13-2022 End: 08-13-2022 ambulatory PHYSICIAN TIM [facility] Work Phone: Start: 08-13-2022 Telephone encounter Becky Romero i [employer] Start: 08-12-2022 End: 08-12-2022 ambulatory Becky Romeo Other [employer] Other Start: 08-12-2022 Encounter for genera l adult medical examination without abnormal findings Becky Romeo [facility] Start: 08-12-2022 Periodic preventive med est patient 18-39 yrs Becky Romeo [facility] Start: 05-20-2022 End: 05-20-2022 ambulatory Becky Romeo Other [employer] Other Start: 05-20-2022 Telephone encounter Becky Romero i [facility] Start: 02-08-2022 End: 02-08-2022 ambulatory Becky Romeo Other [employer] Other Start: 02-08-2022 Office outpatient vi sit 15 minutes Joselin Wilkins [facility] Start: 02-08-2022 Telephone encounter Becky Romero i [facility] Start: 02-06-2022 End: 02-06-2022 ambulatory Lexy Kraft Other [employer] Other Start: 02-06-2022 Office outpatient vi sit 15 minutes Lexy Kraft [facility] Start: 07-03-2021 End: 07-03-2021 ambulatory Becky Romeo Other [employer] Other Start: 07-03-2021 Office outpatient vi sit 15 minutes Becky Ousmane [facility] Start: 05-19-2020 End: 05-19-[address] ROGE THACKER Facility:H1 Start: 05-16-2020 Encounter for other preprocedural examination [facility] Start: 05-13-2020 End: 05-14-2020 ambulatory [facility] Facility:[facility] Start: 05-11-2020 End: 05-12-2020 ambulatory [facility] Facility:[facility] Start: 05-11-2020 End: 05-12-2020 Encounter for other preprocedural examination [facility] Facility:[facility] Start: 03-23-2020 End: 03-24-[address] DESTINEE BRITTON Facility:H1 Start: 02-29-2020 End: 03-01-2020 ambulatory [facility] Facility:[facility]1 Start: 03-30-2019 End: 03-30-2019 Patient encounter procedure Radha Aguilera [facility] Procedures Date Procedure Procedure Detail Performing Clinician Start: 12-03-2024 Urnls dip stick/tabl et rgnt non-auto w/o micrscp Ness Montez URBAN GARDENING SPECIALIST Work Phone: Start: 07-20-2024 Ct lumbar spine [...] procedure 08/15/2025 5:30 PM EST [facility] [address] [place] [address] Jovita Salas, CNM [address] [place] [address] BIANCA MONTALVON Start: 03-07-2025 Influenza vaccination Influenza Vacc ine (#1) [facility] Start: 03-02-2025 End: 03-02-2025 ambulatory 03/02/2025 5:30 PM EDT Treatment [facility] [address] [facility] [address] [place] [address] Ryan Barger, CONTRACTING SUPPORT SPECIALIST [facility] Start: 02-28-2025 End: 02-28-2025 ambulatory 02/28/2025 6:00 PM EDT Treatment [facility] [address] [facility] [address] [place] [address] Delia Kwan, PT [facility] Start: 02-24-2025 End: 02-24-2025 ambulatory 02/24/2025 6:00 PM EDT Treatment [facility] [address] [facility] [address] [place] [address] Ofelia Blakely, CONTRACTING SUPPORT SPECIALIST [facility] Start: 02-15-2025 End: 02-15-2025 ambulatory 02/15/2025 6:00 PM EDT Treatment [facility] [address] [facility] [address] [place] [address] Kem Costa, CONTRACTING SUPPORT SPECIALIST [facility] Start: 02-14-2025 End: 02-14-2025 Patient encounter procedure BIANCA RAPP Comment on above: Arrived Start: 02-08-2025 End: 02-08-2025 Patient encounter procedure 02/08/2025 4:00 PM EDT Office Visit [facility] [address] [place] [id number] Jovita Salas, CNM [address] [place], [place] [id number] [facility] Start: 02-01-2025 End: 02-01-2025 [...] 12-03-2024 End: 12-03-2025 XR Abdomen Single view [facility] Work Phone: Comment on above: Expected: 12/03/2024 , Expires: 12/03/2025 Start: 12-03-2024 End: 12-03-2024 Patient encounter procedure 12/03/2024 1:30 PM EDT Office Visit [facility] [address] [place] [phone] Ness Montez NP [address] [place] [address] [facility] Start: 08-10-2024 End: 08-10-2024 Patient encounter procedure [facility] Comment on above: Arrived Start: 05-10-2024 End: 05-10-2025 Insulin, fasting Insulin, fasting Lab Routine Normal gynecologic examination Screening for cervical cancer PCOS (polycystic ovarian syndrome) Expected: 05/10/2024 (Approximate), Expires: 05/10/2025 [facility] Comment on above: Expected: 05/10/2024 (Approximate), Expires: 05/10/2025 Start: 05-10-2024 End: 05-10-2024 Patient encounter procedure 05/10/2024 2:00 PM EST Office Visit [facility] [address] [place] [phone] Jovita Salas, CNM [address] [place] [address] Arrived [facility] Comment on above: Arrived Start: 05-10-2024 End: 05-10-2025 THINPREP IMAGING PAP AND HPV DNA REFLEX HPV 16,18 THINPREP IMAGING PAP AND HPV DNA REFLEX HPV 16,18 Pathology and Cytology Routine Screening for cervical cancer Expected: 05/10/2024 (Approximate), Expires: 05/10/2025 [facility] Work Phone: Comment on above: Expected: 05/10/2024 (Approximate), Expires: 05/10/2025 Start: 03-07-2024 Influenza vaccination Influenza Vacc ine (#1) [facility] Start: 05-19-2023 DTaP/Tdap/Td vaccine (7 - Td or Tdap) DTaP/Tdap/Td vaccine (7 - Td or Tdap) [facility] Start: 08-14-2022 [facility] Start: 2021 Screening for malign ant neoplasm of cervix Pap smear [facility] Start: 2018 Hepatitis C screening Hepatitis C sc reen [facility] Start: 2016 Screening for Chlamy rafael trachomatis Chlamydia/GC screen [facility] Start: 2015 HIV screening HIV screen [facility] Start: 2015 HPV vaccine (1 - 3-d ose series) HPV vaccine (1 - 3-dose series) [facility] Start: 2012 Depression Screen Depression Screen [facility] CBC panel - Blood by Automated count CBC Lab Routine PCOS (polycystic ovarian syndrome) Ordered: 05/10/2024 [facility] Comment on above: Ordered: 05/10/2024 Glucose measurement estimated from glycated hemoglobin [facility] Hemoglobin A1c/Hemoglobin.total in Blood [facility] Hemoglobin A1c/Hemoglobin.total in Blood Hemoglobin A1c Lab Routine PCOS (polycystic ovarian syndrome) Ordered: 05/10/2024 [facility] Comment on above: Ordered: 05/10/2024 Immunizations Immunization Date Immunization Notes Care Provider Fa [facility] 04-29-2024 SARS-COV-2 (COVID-19 ) vaccine, mRNA, spike protein, LNP, PF, anuj-sucrose, 30 mcg/0.3 mL Destinee Britton MD Work Phone: [facility] 04-29-2024 Seasonal, trivalent, recombinant, injectable influenza vaccine, preservative free Destinee Britton MD Work Phone: [facility] 04-29-2024 influenza virus vacc ine, unspecified formulation Delia Kwan PT [facility] 07-10-2019 Influenza, injectabl e, Madin Kress Canine Kidney, preservative free, quadrivalent Destinee Britton MD Work Phone: [facility] 07-10-2019 influenza, seasonal, injectable Becky Romeo Other [facility] 07-10-2019 influenza virus vacc ine, unspecified formulation Jovita Salas WILLOW Work Phone: [facility] 07-17-2018 Influenza, injectabl e, Madin Bhavana Canine Kidney, preservative free, quadrivalent Destinee Britton MD Work Phone: [facility] 03-02-2018 meningococcal polysaccharide (groups A, C, Y and W-135) diphtheria toxoid conjugate vaccine (MCV4P) Becky Hernandezjulia Other [facility] 05-19-2013 meningococcal polysaccharide (groups A, C, Y and W-135) diphtheria toxoid conjugate vaccine (MCV4P) Destinee Britton MD Work Phone: [facility] 05-19-2013 tetanus toxoid, redu latrice diphtheria toxoid, and acellular pertussis vaccine, adsorbed Destinee Britton MD Work Phone: [facility] 05-19-2013 varicella virus vaccine Destinee Britton MD Work Phone: [facility] 04-03-2006 diphtheria, tetanus toxoids and acellular pertussis vaccine, unspecified formulation Destinee Britton MD Work Phone: [facility] 04-03-2006 hepatitis B vaccine, pediatric or pediatric/adolescent dosage Destinee Britton MD Work Phone: [facility] 04-03-2006 measles, mumps and rubella virus vaccine Destinee Britton MD Work Phone: [facility] 04-03-2006 poliovirus vaccine, unspecified formulation Destinee Britton MD Work Phone: [facility] 04-03-2006 varicella virus vaccine Destinee Britton MD Work Phone: [facility] 03-03-2006 DTaP-hepatitis B and poliovirus vaccine Destinee Britton MD Work Phone: [facility] 03-03-2006 measles, mumps and rubella virus vaccine Destinee Britton MD Work Phone: [facility] 12-23-2001 measles, mumps and rubella virus vaccine Destinee Britton MD Work Phone: [facility] 09-17-2001 diphtheria, tetanus toxoids and acellular pertussis vaccine, unspecified formulation Destinee Britton MD Work Phone: [facility] 09-17-2001 haemophilus influenz ae type b vaccine, conjugate unspecified formulation Destinee Britton MD Work Phone: [facility] 2000 diphtheria, tetanus toxoids and acellular pertussis vaccine, unspecified formulation Destinee Britton MD Work Phone: [facility] 2000 haemophilus influenz ae type b vaccine, conjugate unspecified formulation Destinee Britton MD Work Phone: [facility] 2000 hepatitis B vaccine, pediatric or pediatric/adolescent dosage Destinee Britton MD Work Phone: [facility] 2000 poliovirus vaccine, unspecified formulation Destinee Britton MD Work Phone: [facility] 2000 haemophilus influenz ae type b vaccine, conjugate unspecified formulation Destinee Britton MD Work Phone: [facility] 2000 diphtheria, tetanus toxoids and acellular pertussis vaccine, unspecified formulation Destinee Britton MD Work Phone: [facility] 2000 poliovirus vaccine, unspecified formulation Destinee Britton MD Work Phone: [facility] 2000 diphtheria, tetanus toxoids and acellular pertussis vaccine, unspecified formulation Destinee Britton MD Work Phone: [facility] 2000 haemophilus influenz ae type b vaccine, conjugate unspecified formulation Destinee Britton MD Work Phone: [facility] 2000 hepatitis B vaccine, pediatric or pediatric/adolescent dosage Destinee Britton MD Work Phone: [facility] 2000 poliovirus vaccine, unspecified formulation Destinee Britton MD Work Phone: [facility] 2000 hepatitis B vaccine, pediatric or pediatric/adolescent dosage Destinee Britton MD Work Phone: [facility] Payers Date Payer Category Payer Unknown 2024 Unknown [id number] 2022 Blue [employer] Blue Shield [id number] 2022 Self-pay [id number] 2022 Blue Cross Blue Shield [id number] [id number] 15 2000 Unknown [id number] 2.16.84 0.1.972759.3.579.2.593 2000 Unknown [id number] 2.16.84 0.1.520335.3.579.2.593 2000 Unknown [id number] 2.16.84 0.1.232276.3.579.2.593 2000 Unknown [id number] 2.16.84 0.1.208952.3.579.2.593 2000 Unknown [id number] 2.16.84 0.1.028417.3.579.2.593 2000 Unknown [id number] 2.16.8 40.1.045180.3.579.2.173 2000 Unknown [id number] 2.16.8 40.1.487813.3.579.2.173 2000 Unknown [id number] 2.16.8 40.1.299400.3.579.2.173 2000 Unknown [id number] 2.16. 840.1.326725.3.579.2.1286 2000 Unknown [id number] 2.16. 840.1.513041.3.579.2.1286 2000 Unknown [id number] 2.16. 840.1.728496.3.579.2.1285 2000 Unknown [id number] 2.16. 840.1.006961.3.579.2.1285 2000 Unknown [id number] 2.16. 840.1.744905.3.579.2.1285 2000 Unknown [id number] 2.16. 840.1.145658.3.579.2.1285 2000 Unknown [id number] 2.16. 840.1.800653.3.579.2.1285 2000 Unknown [id number] 2.16. 840.1.136129.3.579.2.1285 2000 Unknown [id number] 2.16. 840.1.462538.3.579.2.1285 2000 Unknown [id number] 2.16. 840.1.750970.3.579.2.1285 2000 Unknown [id number] 2.16.8 40.1.195381.3.579.2.1285 2000 Unknown [id number] 2.16.8 40.1.068691.3.579.2.1285 2000 Unknown [id number] 2.16.8 40.1.827121.3.579.2.1285 2000 Unknown [id number] 2.16.8 40.1.290018.3.579.2.1285 2000 Unknown [id number] 2.16.8 40.1.354865.3.579.2.1285 2000 Unknown [id number] 2.16. 840.1.476114.3.579.2. 2000 Unknown [id number] 2.16. 840.1.467256.3.579.2. 2000 Unknown [id number] 2.16. 840.1.230376.3.579.2. 2000 Unknown [id number] 2.16. 840.1.169223.3.579.2.196 2000 Unknown [id number] 2.16. 840.1.719525.3.579.2.196 2000 Unknown [id number] 2.16. 840.1.933279.3.579.2.196 1959 Unknown [id number] Unknown [id number] 2.16.8 40.1.997571.3.579.2.531 Unknown [id number] 2.16.8 40.1.414158.3.579.2.531 Unknown [id number] 2.16.8 40.1.065328.3.579.2.531 Social History Date Type Detail Facility Tobacco smoking stat us MIIS Unknown if ever smoked [facility] Start: 2000 Sex Assigned At Female [facility] Start: 12-04-2023 End: 05-20-2024 Sex Assigned At [facility] Start: 10-10-2023 Tobacco smoking status MIIS Unknown if ever smoked [facility] Start: 06-26-2023 End: 05-20-2024 Tobacco smoking status MIIS Never smoked tobacco [facility] Start: 06-26-2023 [...] to any clubs or organizations such as yarsanism groups, unions, fraternal or athletic groups, or [...] [facility] Start: 07-20-2024 Tobacco smoking status [facility] Ex-smoker [facility] [place] History of tobacco use Current smoker [facility] [place] History of tobacco use Cigarette Smoker [facility] [place] Start: 2000 Sex assigned at Not on file [employer] Start: 08-16-2012 Sex Female (finding) [facility] [place] How often do you nee d to [...] to be instructed in home exercise program. Alf Goals: To be met in 10 weeks [...] sign below. Date: documented in this encounter [facility] 02-15-2025 Telephone encount er Note Jackson left at 9:13 am Mo, this is Jenn from [facility] in [place]. I am calling about a mutual patient. Edwige Patterson. Date of is 2000. I am calling about the [employer] tech 28 or the control you guys sent over the quantity on the prescription. They only come in packs at 28. So we need a quantity on that prescription to say 84 with 3 refills. If you could please either send over any prescription with the correct quantity or give us a callback that would be great. Our phone number here is [phone]. Again, this is Jenn from [facility] coming from a Main for Edwige Evans move 2000 for the spring tech or generic, nor just with [employer], dial the control, calling the change quantity to 84 because they only come in back to 28 and we can not open the pack again, phone number [phone] if you want to call for change or send over a brand new prescription with the correct quantity of 84? Thank you. [facility] 02-15-2025 Miscellaneous Notes Formattin g of this note might be different from the original. Vm left at 9:13 am Mo, this is Jenn from [facility] in [place]. I am calling about a mutual patient. [...] be great. Our phone number here is [phone]. 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 Thank you. documented in this encounter [facility] 02-14-2025 History of Presen t illness Narrative PROBLEM VISIT Edwige Patterson is 24 y.o. 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 History: Past Medical History: Diagnosis Date Anxiety 10/2023 Depression 12/2019 Right ankle sprain No past surgical history on file. Family History Problem Relation Name Age of Onset Diabetes Mother Kelsy Patterson Cancer Paternal Grandmother Tawnya Pattreson Heart failure Other g-ma Diabetes Sister Jovana Patterson Mental illness Sister Jovana Patterson @[email or web address] Allergies: No Known Allergies Medications: Current Outpatient [...] times a day as needed N[employer]est[employer]-Eth Estradiol (Ivq-Mc-Tewuas) 0.18/0.215/0.25 MG-25 MCG tablet TAKE 1 TABLET [...] [place],02/14/2025 5:18 PM documented in this encounter [facility] 01-24-2025 History of Presen t illness Narrative [...] to be instructed in home exercise program. 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 Date: documented in this encounter [facility] 01-06-2025 Evaluation note Diagnosis Onset Date Resolution Paresthesias acute January 06 2:55pm Pain of left sacroiliac joint acute January 11, 2025 9 :14am Pain of right sacroiliac joint acute January 11, 2025 9:14am Paresthesias acute January 11 9:14am [facility] Work Phone: 1(110) 102-636505-30-2025 History of Present illness Narrative* Ness Montez [...] prompting another visit to the ER in [place]. A diagnosis of viral gastroenteritis was made [...] HPI Flowsheet Row Documentation from 11/30/2024 in [facility] with Lorin [place], [place] Hospital Information ED, Hospital or Penitentiary Facility Discharge? ED Patient has been contacted within 2 days of being seen in the ED Yes Diagnosis Viral Infection Discharge Date 11/28/24 Discharged To: Home Setting Discharge Hospital [facility] Engagement Call Start Time 1528 Admission Date [...] fluid intake and abstain from smoking marijuana. Zhyk-igy-uhfmkkn MiraLAX can be used if constipation persists. [...] or other abnormalities. - Advised to use dwvk-yzv-bvglyht MiraLAX if constipation persists and to increase fluid intake. - Blood work will be done to assess kidney and liver function. No follow-ups on file. documented in this encounterThree [facility] [id number] Hospital Discharge instructions* Discharge Instructions* Alicia Dunn [...] sent through Care Everywhere. * Back Pain ([place]) [facility] History of Present illness Narrative* Jovita Salas CNM - 08/10/2024 4:00 PM EST PROBLEM VISIT Edwige Patterson is 24 y.o. a patient of [facility]ICATION MANAGER Here for follow up on medications Last [...] Salas CNM,12/16/2024 4:48 PMpatient documented in this encounterThree Rivers [id number] Hospital Discharge instructions* Discharge Instructions* Octavio Day [...] sent through Care Everywhere. * Back [facility] ([place]) [facility]* Discharge Instructions* Yoli Lal [...] through Care Everywhere. * Strain or Sprain ([place]) [facility] encounter Note* Telephone Encounter - Bess Lomeli - 06/02/2024 1:06 PM EST Pt called and left a vm at 12:41 pm today She said she has been waiting for her BC to be called over to [employer] but they haven't received anything. She asked if that can please be sent over. [facility] [id number] Miscellaneous Notes* Telephone Encounter - Bess Yani - 06/02/2024 1:06 PM EST Pt called and left a vm at 12:41 pm today She said she has been waiting for her BC to be called over to [facility] but they haven't received anything. She asked if that can please be sent over. documented in this encounterThree Rivers [id number] History of Present illness Narrative* Destinee Britton [...] should contact the clinic. documented in this encounterThree Rivers [id number] History of Present illness Narrative* Destinee Britton [...] child. 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 She is getting her master's degree [...] bite block during sleep. documented in this encounterThree Rivers [id number] History of Present illness Narrative* ALEJANDRA Cruz - 05/10/2024 2:00 PM EST YEARLY HPI: This is a established patient. Chief Complaint Patient presents with Gynecologic Exam Here for annual exam. 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 [facility] Other 06-05-2023 Evaluation note* Encounter Date Diagnosis [...] no improvement in 5 to 7 days [facility] Other 02-06-2023 Evaluation note* Encounter Date Diagnosis [...] Screening for deficiency anemia (ICD-10 - Z13.0) [facility] Other 08-05-2022 Evaluation note* Encounter Date Diagnosis [...] understanding and is agreeable to treatment plan. [facility] Other 08-03-2022 Evaluation note* Encounter Date Diagnosis [...] no improvement in 2 to 3 days. [facility] Other 12-28-2021 Evaluation note* Encounter Date Diagnosis Assessment Notes Treatment Notes Treatment Clinical Notes Jun, Exposure to COVID-19 virus (ICD-10 - Z20.822) Jun, COVID-19 (ICD-10 - U07.1) Patient's rapid test is positive for Covid-19. She is given instructions for quarantine and supportive care. Call immediately for change/worsening or with questions/concerns. [facility] Other 11-13-2020 NotePROCEDURE: XR ANKLE RT MIN 3 VIEWS COMPARISON: 05/19/2020 intraprocedural, 04/02/2020 HISTORY: Postoperative care FINDINGS: BONES:No fracture, acute abnormality, or significant arthropathy. SOFT TISSUES:Post procedural soft tissue swelling, subcutaneous air and lateral surgical elaina EFFUSION:None visible. OTHER: Negative. IMPRESSION: Postprocedural changes Electronically authenticated by: ROGE THACKER Date: 2020-05-19 14:02[facility]11-13-2020 NotePROCEDURE: XR ANKLE RT 2V COMPARISON: [...] Electronically authenticated by: ROGE THACKER Date: 2020-05-19 14:00[facility]11-01-2020 History general Narrative - Reported* Type Description Date Medical History Chronic back pain Medical History Hx of concussion Medical History acne Medical History chronic depression Surgical History ankle reconstruction- right 2019 [facility] Other 09-17-2020 NotePROCEDURE: XR FOOT RT MIN 3 VIEWS COMPARISON: 02/29/2020 HISTORY: Pain in right foot FINDINGS: BONES:Stable intra-articular transverse fracture base of the fifth metatarsal. No acute fracture or dislocation SOFT TISSUES:Negative. No visible soft tissue swelling. EFFUSION:None visible. OTHER: Negative. IMPRESSION: Stable healing intra-articular transverse fracture base of the fifth metatarsal Electronically authenticated by: ROGE THACKER Date: 2020-03-23 10:22 [id number] NotePROCEDURE: XR ANKLE RT MIN 3 VIEWS, [...] authenticated by: ROGE THACKER Date: 2020-02-29 12:57 [id number] NotePROCEDURE: XR ANKLE RT MIN 3 VIEWS, [...] authenticated by: ROGE THACKER Date: 2020-02-29 12:57[facility] HealthEvaluation noteNo InformationNort Lendio Other Evaluation noteNo assessment information available [facility] Work Phone: Evaluation note* Diagnosis Onset Date Resolution Status Bilateral acute otitis media resolved [facility] Work Phone: Evaluation note* Diagnosis PCOS (polycystic ovarian syndrome)- Primary Polycystic ovaries Normal gynecologic examination Screening for cervical cancer Screening for malignant neoplasm of the cervix Other acne Hirsutism [facility]* Diagnosis Candidiasis- Primary Acute nausea with nonbilious vomiting [facility]* Diagnosis Candidiasis- Primary documented in [facility]* Diagnosis Encounter for initial prescription of contraceptive pills documented in [facility]* Diagnosis Strain of lumbar region, initial encounter- Primary Abnormal computed tomography of lumbar spine [facility] Diagnosis Acute exacerbation of chronic low back pain- Primary [facility]* Diagnosis Acute exacerbation of chronic low back pain- Primary [facility]* Diagnosis Nausea- Primary Nausea alone Pain of upper abdomen [facility]* Diagnosis Unwanted fertility- Primary PCOS (polycystic ovarian syndrome) Polycystic ovaries [facility]* Diagnosis Onset Date Resolution Status Admit Date Paresthesias acute January 06 2:55pm [facility] Work Phone: Evaluation note* Diagnosis Sacrococcygeal disorders, not elsewhere classified- Primary [facility] in [facility]* Diagnosis Sacrococcygeal disorders, not [...] History Hx of concussion Medical History acne [employer] [facility] [employer] Other History general Narrative - Reported* Type Description Date Medical History Chronic back pain Medical History Hx of concussion Medical History acne Medical History chronic depression [facility] [employer] Other Reason for referral (narrative)No reason for referral [facility] Work Phone: Rezvck for visit Narrative* Rehabilitation - Outpatient (Routine) - Authorized Specialty Diagnoses / Procedures Referred By Contac t Referred To Contact Physical Therapy Diagnoses Sacrococcygeal disorders, not elsewhere classified Procedures [place] PHYSICAL THERAPY EVALUATION LOW COMPLEX 20 MINS [place] OFFICE/OUTPATIENT NEW HIGH MDM 60 MINUTES Feliz Musa MD [address] [place] [address], [address] [place] [address] Phone: tel: fax: Delia Kwan, PT Referral ID Status Reason Start Date Expiration Date V isits Requested Visits Authorized [id number] Authorized 01/24/2025 03/24/2025 6 6 [facility] HealthcareReason for visit Narrative* Rehabilitation - Outpatient (Routine) - Closed Specialty Diagnoses / Procedures Referred By Contac t Referred To Contact Physical Therapy Diagnoses Sacrococcygeal disorders, not elsewhere classified Procedures [place] PHYSICAL THERAPY EVALUATION LOW COMPLEX 20 MINS [place] OFFICE/OUTPATIENT NEW HIGH MDM 60 MINUTES Feliz Musa MD [address] [place] [address], [address] [place] [address] Phone: tel: fax: Delia Kwan, MARYCARMEN Referral ID Status Reason Start Date Expiration Date Visits Re quested Visits Authorized [id number] Closed 01/24/2025 03/24/2025 6 6 [facility] Advance Directives Advance Directive Response Recorded Date/ [...] 6:50a m EMG BLE per Jazmin Beau SIGN POSTER January 06 2:55pm Reason for Visit Admit Date Paresthesias January 06, 2025 2:55p m Chief Complaint Admit Date Amb Documentation December 01, 2024 6:50a m EMG BLE per Jazmin Beau SIGN POSTER January 06 2:55pm low back pain January [...] and content) DATE CREATED AUTHOR 01/04/2021 [facility] DATE CREATED AUTHOR AUTHOR'S ORGANIZ ATION 06/27/2021 [facility] DATE CREATED AUTHOR AUTHOR'S ORGANIZ ATION 12/16/2022 [facility] DATE CREATED AUTHOR AUTHOR'S ORGANIZ ATION 12/01/2024 [facility] DATE CREATED AUTHOR AUTHOR'S ORGANIZ ATION 02/25/2025 [facility] DATE CREATED AUTHOR AUTHOR'S ORGANIZ ATION 02/26/2025 [facility] REASON FOR VISIT (unrecogniz ed section and [...] since 2016. MRI completed on Friday in [place]. Reason Comments Back Pain Bilateral lower back [...] November 11, 2023 End: November 11, 2023 Pharmacy Ancillary Relationship Specialty Start Date End Date Destinee Britton MD [address] [place] [address] PCP - General Family Medicine 11/12/22 Pharmacy Ancillary Relationship Specialty Start Date End Date Destinee Britton MD [address] [place] [address] PCP - General Family Medicine 11/12/22 Pharmacy Ancillary Relationship Specialty Start Date End Date Destinee Britton MD [address] [place] [address] PCP - General Family Medicine 11/12/22 Pharmacy Ancillary Relationship Specialty Start Date End Date Destinee Britton MD [address] [place] [address] PCP - General Family Medicine 11/12/22 Pharmacy Ancillary Relationship Specialty Start Date End Date Destinee Britton MD [address] [place] [address] PCP - General Family Medicine 11/12/22 Pharmacy Ancillary Relationship Specialty Start Date End Date Becky Romeo DO NPI: [address] [place] [address];[address] [place] [address] PCP - General Family Medicine 07/20/24 Pharmacy Ancillary Relationship Specialty Start Date End Date Becky Romeo DO NPI: [address] [place] [address];[address] [place] [address] PCP - General Family Medicine 07/20/24 Pharmacy Ancillary Relationship Specialty Start Date End Date Becky Romeo DO NPI: [address] [place] [address];[address] [place] [address] PCP - General Family Medicine 07/20/24 Pharmacy Ancillary Relationship Specialty Start Date End Date Destinee Britton MD [address] [facility] [place] [address] PCP - General Family Medicine 11/12/22 Pharmacy Ancillary Relationship Specialty Start Date End Date Destinee Britton MD [address] [facility] [place] [address] PCP - General Family Medicine 11/12/22 Pharmacy Ancillary Relationship Specialty Start Date End Date Destinee Britton MD [address] [facility] [place] [address] PCP - General Family Medicine 11/12/22 Team Status: Inactive Member Role Status Dates Becky Romeo DO Primary Care Provider Active Start: January 11, 2025 End: January 11, 2025 Feliz Musa MD Attending Provider Active Star t: January 11, 2025 End: January 11, 2025 Pharmacy Ancillary Relationship Specialty Start Date End Date Destinee Britton MD [address] [facility] [place] [address] PCP - General Family Medicine 11/12/22 Pharmacy Ancillary Relationship Specialty Start Date End Date Destinee Britton MD [address] [facility] [place] [address] PCP - General Family Medicine 11/12/22 Pharmacy Ancillary Relationship Specialty Start Date End Date Destinee Britton MD [address] [facility] [place] [address] PCP - General Family Medicine 11/12/22 Pharmacy Ancillary Relationship Specialty Start Date End Date Destinee Britton MD [address] [facility] [place] [address] PCP - General Family Medicine 11/12/22 Pharmacy Ancillary Relationship Specialty Start Date End Date Destinee Britton MD [address] [facility] [place] [address] PCP - General Family Medicine 11/12/22 Pharmacy Ancillary Relationship Specialty Start Date End Date Destinee Britton MD [address] [facility] [place] [address] PCP - General Family Medicine 11/12/22 Pharmacy Ancillary Relationship Specialty Start Date End Date Destinee Britton MD [address] [facility] [place] [address] PCP - General Family Medicine 11/12/22 Pharmacy Ancillary Relationship Specialty Start Date End Date Destinee Britton MD [address] [facility] [place] [address] PCP - General Family Medicine 11/12/22 Pharmacy Ancillary Relationship Specialty Start Date End Date Destinee Britton MD [address] [facility] [place] [address] PCP - General Family Medicine 11/12/22 Pharmacy Ancillary Relationship Specialty Start Date End Date Destinee Britton MD [address] [facility] [place] [address] PCP - General Family Medicine 11/12/22 Goals [...] BE BASED ON THE PRIMARY CLINICAL RECORDS. [employer] [facility]. provides no warranty or guarantee of the accuracy or completeness of information in this document.
--- NOTE | 2025-03-15 11:23 | ED_ITS ---
HPI HPI - General Adult General Chief complaint: Back Pain/Injury Stated complaint: back pain Time Seen by Provider: 03/15/25 11:02 Source: patient Mode of arrival: walk-in Limitations: no limitations History of Present Illness HPI narrative: 24-year-old female presents for lower back pain. She has had issues with her back since she was thrown off of her horse about 8 years ago. She sees pain management and reports to me that she has no pain contract. She is scheduled to have some testing done next week on her back. No weakness or numbness. Her symptoms are not new but seem to been aggravated over the past few days. She reports she cannot take Tylenol because of liver issues. Related Data Home Medications ?Medication ?Instructions ?Recorded ?Confirmed bupropion HCl 300 mg 24 hr tablet, 300 mg PO DAILY 04/3002/21/25 extended release etodolac 400 mg tablet (Lodine) 400 mg PO BID 08/16/24 02/21/25 norgestimate 0.18 mg/0.215mg/0.25 1 tab PO DAILY 08/1602/21/25 mg-ethinyl estradiol 0.025 mg tablet (Jie-Vx-Qoqbdm) baclofen 10 mg tablet 10 mg PO Q8H PRN spasms 12/0602/21/25 Previous Rx's ?Medication ?Instructions ?Recorded ondansetron 4 mg disintegrating 4 mg PO Q6H PRN nausea and 11/28/24 tablet vomiting #20 tabs hydrocodone 7.5 mg-ibuprofen 200 1 tab PO Q6H PRN pain 5 days #20 03/15/25 mg tablet tabs Allergies Allergy/AdvReac Type Severity Reaction Status Date / Time No Known Drug Allergies Allergy Verified 03/15/25 10:57 Opioid HPI Opioid Management Most Recent Opioid Data: Last Pain Scale 7 Today, 11:03 Review of Systems ROS Narrative A ten point review of systems is negative except as noted above. [facility] Medical History (Updated 03/15/25 @ 11:19 by Ras Singh MD) Low back pain ?M54.50 - Low back pain, unspecified (ICD-10) Depression ?F32.A - Depression, unspecified (ICD-10) PCOS (polycystic ovarian syndrome) ?E28.2 - Polycystic ovarian syndrome (ICD-10) Surgical History History of ankle surgery ?Z98.890 - Other specified postprocedural states (ICD-10) Social History Little interest or pleasure in doing things: not at all Feeling down, depressed, or hopeless: not at all Exam Narrative Exam Narrative: Nurses note and vital signs reviewed and patient is not hypoxic. General: The patient appears well and in no apparent distress. Patient is resting comfortably on cart. Skin: Warm, dry, no pallor noted. There is no rash noted. Head: Normocephalic, atraumatic Eye: Normal conjunctiva, no drainage Ears, Nose, Mouth, and Throat: oral mucosa is moist. Nares patent. Cardiovascular: Regular Rate and Rhythm Respiratory: Patient is in no distress, no accessory muscle use, lungs are clear to auscultation, no wheezing, rales or rhonchi Back: non-tender GI: Soft and nontender Musculoskeletal: Her back is examined. There is no bruise rash or focal area of tenderness Neurological: A&O, normal speech; motor strength intact in her lower extremity Psychiatric: Cooperative Constitutional Vital Signs, click to edit/add: Last Vital Signs Temp 99 F 03/15/25 10:58 Pulse 68 03/15/25 10:58 Resp 16 03/15/25 10:58 BP 120/66 03/15/25 10:58 Pulse Ox 96 03/15/25 10:58 O2 Del Method Room Air 03/15/25 10:58 Course Vital Signs Vital signs: Vital Signs Temperature 99 F 03/15/25 10:58 Pulse Rate 68 03/15/25 10:58 Respiratory Rate 16 03/15/25 10:58 Blood Pressure 120/66 03/15/25 10:58 Pulse Oximetry 96 03/15/25 10:58 Oxygen Delivery Method Room Air 03/15/25 10:58 Temperature 99 F 03/15/25 10:58 Pulse Rate 68 03/15/25 10:58 Respiratory Rate 16 03/15/25 10:58 Blood Pressure 120/66 03/15/25 10:58 Pulse Oximetry 96 03/15/25 10:58 Oxygen Delivery Method Room Air 03/15/25 10:58 Medical Decision Making MDM Narrative Medical decision making narrative: She was given IM Toradol and Norflex and prescribed Vicoprofen. Treatment diagnosis and follow-up were discussed with the patient. Differential Diagnosis Differential Diagnosis: Acute exacerbation of chronic back pain Discharge Plan Discharge Chief Complaint: Back Pain/Injury Clinical Impression: Low back pain Patient Disposition: Home, Self-Care Time of Disposition Decision: 11:19 Condition: Good Mode of Transportation: Private Vehicle Prescriptions / Home Meds: New hydrocodone-ibuprofen 7.5-200 mg tablet 1 tab PO Q6H PRN (Reason: pain) 5 Days Qty: 20 0RF No Action bupropion HCl 300 mg tablet extended release 24 hr 300 mg PO DAILY norgestimate-ethinyl estradiol [Ukc-Yw-Rmhyuw] 0.18/0.215/0.25 mg-25 mcg tablet 1 tab PO DAILY etodolac [Lodine] 400 mg tablet 400 mg PO BID baclofen 10 mg tablet 10 mg PO Q8H PRN (Reason: spasms) ondansetron 4 mg tablet,disintegrating 4 mg PO Q6H PRN (Reason: nausea and vomiting) Qty: 20 0RF Print Language: Scottish Instructions: Acute Low Back Pain (ED) Referrals: Vidal Romeo DO [Primary Care Provider] - 1 week
[2025-03-15] MEDS: ORPHENADRINE 60 MG/2 ML VIAL IM (11:27)
[2025-03-15] MEDS: KETOROLAC TROMETHAMINE 60 MG/2 ML VIAL IM (11:27)
[2025-03-15 11:45] VITALS: BP 132/70; PULSE 77; O2SAT 98
== END 2025-03-15 11:46 | disposition home or self-care (01) ==
PROVIDERS: Emergency Provider Emergency Medicine; PCP Student in an Organized Health Care Education/Training Program
DX: M54.50 Low back pain, unspecified (principal)
CPT/HCPCS: 96372; 99284; J1885; J2360

== ENCOUNTER 2025-03-16 13:46 | Outpatient (OUT) | payer BC, SELFPAY ==
--- OUTSIDE RECORDS SUMMARY | 2025-03-16 13:55 | XMS_ITS | CCD ---
Author Organization [facility] Care Team Providers Care Maintenance Associate Name Role Phone Radha Aguilera Attending Provider Unavailnaun DUOMNT, FAMILY PHYSICIAN Primary Care Provider Unava toyin [...] Unavailable Lexy Kraft Unavailable Joselin Wilkins Unavailable [phone] NO FAMILY, PHYSICIAN Primary Care Provider Unava ilable DO Becky Romeo Attending Provider [phone] NO FAMILY, PHYSICIAN Primary Care Provider Unava ilable LOU Kraft Attending Provider [phone] Becky Romeo Admitting Unavailable Becky Romeo Attending Unavailable NO FAMILY, PHYSICIAN Primary Care Unavailable Becky Romeo Admitting Unavailable Becky Romeo Attending Unavailable NO FAMILY, PHYSICIAN Primary Care Unavailable Lexy Kraft Admitting Unavailable Lexy Kraft Attending Unavailable NO FAMILY, PHYSICIAN Primary Care Unavailable Tobi LANDIS, Destinee Sweeney Primary Care Provider [phone] Braniecki DO, Becky A Primary Care Provider BRANNABORCKI, BECKY A Primary Care Unavailable YOLI LAL Attending Unavailable BRANIECKI, BECKY A Primary Care Unavailable BRANIECKI, BECKY A Primary Care Unavailable PRIYANK GASPAR Attending Unavailable Braniecki DO, Becky Primary Care Provider [phone] Lacey Morton LPN Attending Provider Unavailable Giovana [...] Sig (Original) baclofen 10 mg oral tablet (11 sources) gamma-Aminobutyric Acid-ergic Agonist Start: 01-11-2025 take [...] tablet by mouth once daily [employer]org[employer]-Eth Estradiol (Ubw-Sv-Vkhvvs) 0.18/0.215/0.25 MG-25 MCG tablet Indications: Unwanted fertility [...] 03/11/2024 Active etodolac 400 mg oral tablet (10 sources) Nonsteroidal Anti-inflammatory Drug Start: 01-31-2025 take [...] Active ondansetron 4 mg disintegrating oral tablet (20 sources) Serotonin-3 Receptor Antagonist Start: 11-28-2024 take [...] Drug Class(es) Dates Sig (Normalized) Sig (Original) [id number] 200 actuat albuterol 0.09 mg/actuat metered dose [...] 11, 2023 2:33pm take 1 capsule by [facility] every eight hours Dicyclomine HCl 10 MG [...] Interpretation and review of laboratory results Normal [facility] Preg Test, Ur Negative Negative [facility] Urinalysis macro (dipstick) panel (U)on 12-03-2024 Bilirubin, UA 3+ Negative - 4(70) +++ mg/dL [facility] Blood, UA Negative Negative - 50 Aidan/mcL [facility] Clarity, UA Clear [facility] Color, UA Yellow [facility] Glucose, UA Negative Negative - 2000(110) ++++ mg/dL [facility] Interpretation and review of laboratory results Abnormal [facility] Ketones, UA Positive Negative - 160(16) ++++ mg/dL [facility] Leukocytes, UA 1+ Negative - 500+++ Samira/mcL [facility] Nitrite, UA Negative Negative - Positive [facility] pH, UA 6 5 - 9 [facility] Protein, UA 1+ Negative - 2000(20) ++++ mg/dL [facility] Spec Grav, UA 1.02 1 - 1.03 [facility] Urobilinogen, UA 0.2 0.2 - 12 mg/dL [facility] CT LUMBAR SPINE WO CONTRASTo n 07-20-2024 [...] Octavio Lowe MD 07/20/24 Final result Normal [facility] CT Lumbar spine WO contrasto n [...] facets throughout with no significant spinal stenosis. [facility] RIS CONSOLIDATED EXAMINATION: CT OF THE LUMBAR [...] TISSUES/RETROPERITONE UM: No paraspinal mass is seen. [facility] RIS Octavio Rosen MD - 07/20/2024 EXAMINATION: [...] facets throughout with no significant spinal stenosis. [facility] Radiology Study observation (narrative) [facility] CT Lumbar spine WO contrastO rdered By: Octavio Lowe on 07-20-2024 [facility] Work Phone: HCG, ,Urineon 07-20 Beta HCG ( test) Ql (U) Negative Normal NEG [facility] Comment on above: Result Comment: Spec imens with hCG levels near the threshold of the test (25 mIU/mL) may give a negative or indeterminate result. In such cases, another test should be performed with a new specimen in 48-72 hours. If early is suspected clinically in this setting, correlation with quantitative serum b-hCG level is suggested. [facility] has confirmed the use of plasma for this test. This has not been cleared or approved by the U.S. Food and Drug Administration. The FDA has determined that such clearance is not necessary. Performed By: #### U HCG #### [facility] [address] [place] [address] Mechanic Foreman: Roge Rios MD Microscopic Urinalysison Amorphous sediment LM Ql (Urine sed) 1+ Abnormal None [facility] Epithelial cells LM.HPF (Urine sed) [#/Area] 2 TO 5 [facility] Interpretation and review of laboratory results Abnormal [facility] RBC LM.HPF (Urine sed) [#/Area] 0 TO 2 [facility] Renal Epithelial, UA 2 TO 5 0 /HPF [facility] WBC LM.HPF (Urine sed) [#/Area] 5 TO 10 [facility] , Urineon HCG ( test) Ql (U) Negative NEGATIVE [facility] Comment on above: Specimens with hCG l evels near the threshold of the test (25 mIU/mL) may give a negative or indeterminate result. In such cases, another test should be performed with a new specimen in 48-72 hours. If early is suspected clinically in this setting, correlation with quantitative serum b-hCG level is suggested. [employer] has confirmed the use of plasma for this test. This has not been cleared or approved by the U.S. Food and Drug Administration. The FDA has determined that such clearance is not necessary. [facility] Urinalysison 07-20-2024 Bilirubin Ql (U) Negative NEGATIVE [facility] Clarity (U) SLIGHTLY CLOUDY Abnormal Clear [facility] Color (U) Yellow Yellow [facility] Glucose Test strip (U) [Mass/Vol] Negative NEGATIVE mg/dL [facility] Hemoglobin Auto test strip Ql (U) Negative NEGATIVE [facility] Interpretation and review of laboratory results Abnormal [facility] Ketones (U) [Mass/Vol] Negative NEGAT AUGUSTINE mg/dL [facility] Leukocyte esterase Test strip Ql (U) SMALL Abnormal NEGATIVE [facility] Nitrite Ql (U) Negative NEGATIVE [facility] pH (U) 8.0 [pH] 5.0 - 9.0 [facility] Protein (U) [Mass/Vol] Negative NEGAT AUGUSTINE mg/dL [facility] Specific gravity (U) [Rel density] 1.020 1.010 - 1.020 [facility] Urobilinogen Qn (U) Normal 0.0 - 1. 0 EU/dL [facility] Urinalysis, Routineon 2024 Bilirubin, SemiQt,Ur Negative Normal NEG [facility] Comment on above: Performed By: #### U A, UMICAO #### [facility] [address] [place] [address] [place], [place] [id number] Mechanic Foreman: Roge Rios MD Blood, Urine Negative Normal [facility] Comment on above: Performed By: #### U A, UMICAO #### [facility] [address] [place], [place] [id number] Mechanic Foreman: Roge Rios MD Clarity (U) SLIGHTLY CLOUDY Abnormal CLEAR [facility] Comment on above: Performed By: #### U A, UMICAO #### [facility] [address] [place] [address] [place], [place] [id number] Mechanic Foreman: Roge Rios MD Color (U) Yellow Normal YEL [facility] Comment on above: Performed By: #### U A, UMICAO #### [facility] [address] [place] [address] [place], [place] [phone] Mechanic Foreman: Roge Rios MD Glucose Ql (U) Negative Normal NEG [facility] Comment on above: Performed By: #### U A, UMICAO #### [facility] [address] [place] [address] [place], [place] [phone] Mechanic Foreman: Roge Rios MD Ketones Ql (U) Negative Normal NEG [facility] Comment on above: Performed By: #### U A, UMICAO #### [facility] [address] [place] [address] Dr[place], [place] [id number] Mechanic Foreman: Roge Rios MD Leukocyte esterase Test strip Ql (U) SMALL Abnormal NEG [facility] Comment on above: Performed By: #### U A, UMICAO #### [facility] [address] [place], [place] [address] Mechanic Foreman: Roge Rios MD Nitrite,Ur Negative Normal [facility] Comment on above: Performed By: #### U A, UMICAO #### [facility] [address] [place] [address] [place], [place] [phone] Mechanic Foreman: Roge Rios MD PH,Ur 8.0 Normal 5.0-9.0 [facility] Comment on above: Performed By: #### U A, UMICAO #### [address] [place] [address] Mechanic Foreman: Roge Rios MD Protein Ql (U) Negative Normal NEG [facility] Comment on above: Performed By: #### U A, UMICAO #### [address] [place], [facility] Mechanic Foreman: Roge Rios MD Spec. [place],Ur 1.020 Normal 1.010-1.020 [facility] Comment on above: Performed By: #### U A, UMICAO #### [facility] [address] [place] [address] Dr. [place], [place] [address] Mechanic Foreman: Roge Rios MD Urobilinogen,Ur Normal Normal 0.0-1.0 [facility] Comment on above: Performed By: #### U A, UMICAO #### [address] [place], [place] [address] Mechanic Foreman: Roge Rios MD Urinalysis,Microon 5 Amorphous sediment LM Ql (Urine sed) 1+ Abnormal NONE [facility] Comment on above: Performed By: #### U A, UMICAO #### [address] [place], [place] [phone] Mechanic Foreman: Roge Rios MD Epithelial cells LM Ql (Urine sed) 2 TO 5 Normal 0-25 [facility] Comment on above: Performed By: #### U A, UMICAO #### [address] [place], [facility] Mechanic Foreman: Roge Rios MD Epithelial, Renal 2 TO 5 Normal 0 [facility] Comment on above: Performed By: #### U A, UMICAO #### [facility] [address] [place] [address] Mechanic Foreman: Roge Rios MD Urine RBC's 0 TO 2 Normal 0-2 [facility] Comment on above: Performed By: #### U A, UMICAO #### [facility] [address] [place] [address] Mechanic Foreman: Roge Rios MD Urine WBC's 5 TO 10 Normal 0-5 [facility] Comment on above: Performed By: #### U A, UMICAO #### [facility] [address] [place] [address] Mechanic Foreman: Roge Rios MD COVID + FLU Quick Testingon 07-09-2023 SARS-CoV-2 (COVID-19) RNA THA+probe Ql (Unsp spec) Negative [facility] [employer] Other COVID + FLU Quick Testing Negative [facility] [employer] Other XR wrist LT min 3V*on 2022 XR wrist LT min 3V* [facility] [employer] Other XR wrist LT min 3V* [facility] [employer] Other XR wrist LT min 3V* [address] [facility] [employer] Other XR wrist LT min 3V* [place] [address] [facility] [employer] Other XR wrist LT min 3V* XRay Report [facility] [employer] Other XR wrist LT min 3V* Signed [facility] Other XR wrist LT min 3V* Patient: Edwige Patterson MR#: [id number] [place] [employer] Other XR wrist LT min 3V* [id number] [facility] Other XR wrist LT min 3V* : 2000 Acct:[id number] [facility] Other XR wrist LT min 3V* Age/Sex: 22 / F ADM Date: 12/09/22 [facility] Other XR wrist LT min 3V* Loc: XDUCLY Room: Type: REG CLI [facility] Other XR wrist LT min 3V* Attending Dr: Lexy BLAKE [facility] Other XR wrist LT min 3V* Copies to: LOU Hernandez [facility] Other XR wrist LT min 3V* Ordering Provider: LOU Hernandez [facility] Other XR wrist LT min 3V* Date of Service: 12/09/22 [facility] Other XR wrist LT min 3V* XR/XR wrist LT min 3V*: Left wrist pain [facility] Other XR wrist LT min 3V* ([id number]) XR/XR hand LT min 3V*: Left wrist pain [facility] Other XR wrist LT min 3V* 3 views LEFT hand plain film [facility] Other XR wrist LT min 3V* COMPARISON: None [facility] Other XR wrist LT min 3V* HISTORY: LEFT hand injury. Pain involving the distal middle finger. Dorsal wrist pain [facility] Other XR wrist LT min 3V* ACUTE FINDINGS: None [facility] Other XR wrist LT min 3V* DEGENERATIVE CHANGE: Unremarkable [facility] Other XR wrist LT min 3V* SOFT TISSUE FINDINGS : Unremarkable [facility] Other XR wrist LT min 3V* JOINT EFFUSION: None [facility] Other XR wrist LT min 3V* POSTOP CHANGES: None [facility] Other XR wrist LT min 3V* BONY MINERALIZATION: Adequate [facility] Other XR wrist LT min 3V* XR/XR hand LT min 3V* [facility] Other XR wrist LT min 3V* IMPRESSION: No acute findings [facility] Other XR wrist LT min 3V* 4 views LEFT wrist plain film [facility] Other XR wrist LT min 3V* BONE MINERALIZATION: Adequate [facility] Other XR wrist LT min 3V* IMPRESSION: No acute bony findings. [facility] Other XR wrist LT min 3V* Impression dictated by: Misbah Mast M.D.12/09/2022 11:[address] [facility] Other XR wrist LT min 3V* Dictation Location: [place] [address] [facility] Other XR wrist LT min 3V* Transcribed By: DOMINIQUE 12/09/[address] [facility] Other XR wrist LT min 3V* Dictated By: Misbah Mast DO 12/09/[address] [facility] Other XR wrist LT min 3V* Signed By: [facility] Other XR wrist LT min 3V* 12/09/22 1159 No rt [employer] Other XR wrist LT min 3V* [facility] [place] [address] [place] [address] XRay Report Signed Patient: Edwige Patterson MR#: [id number] : 2000 Acct:[id number] Age/Sex: 22 / F ADM Date: 12/09/22 Loc: XDUCLY Room: Type: [facility] Attending Dr: Lexy BLAKE Copies to: LOU Hernandez Ordering Provider: LOU Hernandez Date of Service: 12/09/22 XR/XR wrist LT min 3V*: Left wrist pain ([id number]) XR/XR hand LT min 3V*: Left wrist [...] Misbah Mast M.D.12/09/2022 11:59 AM Dictation Location: [place] [address] Transcribed By: [facility] 12/09/22 1159 Dictated By: Misbah Mast DO 12/09/22 1158 Signed By: 12/09/22 1159 Normal [facility] A1C with Estimated Average G jaredn 08-14-2022 HbA1c (Bld) [Mass fraction] 5.200 % Normal 4.3-5.6 % [facility] [employer] Other HbA1c (Bld) [Mass fraction] 103 mg/dL [facility] [employer] Other Glucose [Mass/Vol] 103 mg/dL Normal [facility] Comment on above: Result Comment: PERF ORMED BY: [address] [address] PATHOLOGIST ENVIRONMENTAL DESIGNER KULWANT GOMEZ M.D. Performed By: #### C BC, TSH3, CMP, A1C WTH eA, LIPID #### [address] [address] [place] HbA1c (Bld) [Mass fraction] 5.2 % Normal 4.3-5.6 [facility] Comment on above: Result Comment: Incr eased risk for diabetes: 5.7 - 6.4 diabetes: >6.4 glycemic control for adults with diabetes: <7.0 Performed By: #### C BC, TSH3, CMP, A1C WTH eA, LIPID #### [facility] [address] [place] [id number] [place] Albumin [Mass/volume] in Ser um or PlasmaOrdered By: Becky Romeo on 08-14-2022 Albumin [Mass/Vol] 3.9 g/dL 3.2-5.5 [facility] Basophils Auto (Bld) [#/Vol] Ordered By: Becky Romeo on 08-14-2022 Basophils (Bld) [#/Vol] 0.0 10*3/uL 0.0-0.2 [facility] Basophils/100 WBC Auto (Bld) Ordered By: Becky Romeo on 08-14-2022 Basophils/100 WBC (Bld) 0.6 % . F [facility] Cholesterol [Mass/volume] in Serum or PlasmaOrdered By: Becky Romeo on 08-14-2022 Cholesterol [Mass/Vol] 195 mg/dL Normal 140-2 00 mg/dL [facility] Comment on above: Chol less than 200 m g/dl low riskChol 201-239 mg/dl borderline riskChol 240 mg/dl and greater high risk Cholesterol in LDL Calc [Mas s/Vol]Ordered By: Becky Romeo on 08-14-2022 Cholesterol in LDL [Mass/Vol] 146 mg/dL 0-100 [facility] Comment on above: LDL ATP III CLASSIFI CATIONLDL less than 100 mg/dL OptimalLDL 100-129 mg/dL Near or above optimalLDL 130-159 mg/dL Borderline highLDL 160-189 mg/dL HighLDL greater than 189 mg/dL Very high Cholesterol in VLDL Calc [Ma ss/Vol]Ordered By: Becky Romeo on 08-14-2022 Cholesterol in VLDL [Mass/Vol] 16 mg/dL [facility] Complete Blood Count Auto Di ffon 08-14-2022 Basophils (Bld) [#/Vol] 0.174900222 10*3/uL Normal 0.0-0.2 10*3/uL [facility] Other Basophils/100 WBC (Bld) 0.600 % . % [facility] [employer] Other Eosinophils (Bld) [#/Vol] 0.342491537 10*3/uL Normal 0.0-0.45 10*3/uL [facility] Other Eosinophils/100 WBC (Bld) 2.300 % . % [facility] Other Erythrocyte distribution width (RBC) [Ratio] 12.400 % Normal 11.9-15.3 % [facility] Other Hematocrit (Bld) [Volume fraction] 39.700 % Normal 34.0-46.4 % [facility] Other Hemoglobin (Bld) [Mass/Vol] 13.143735 g/dL Normal 11.8-15.4 g/dL [facility] Other Lymphocytes (Bld) [#/Vol] 1.559944871 10*3/uL Normal 1.00-4.8 10*3/uL [facility] Other Lymphocytes/100 WBC (Bld) 22.500 % . % [facility] Other MCH (RBC) [Entitic mass] 30.2000 pg Normal 24.7-34.[address] [facility] Other MCV (RBC) [Entitic vol] 90.5000 fL Normal 80-100 fL [place] Other Monocytes (Bld) [#/Vol] 0.314631453 10*3/uL Normal 0.0-0.8 10*3/uL [facility] Other Monocytes/100 WBC (Bld) 6.800 % . % [place] Other Neutrophils (Bld) [#/Vol] 3.962658221 10*3/uL Normal 1.8-7.7 10*3/uL [facility] Other Neutrophils/100 WBC (Bld) 67.800 % . % [facility] Other Platelet mean volume (Bld) [Entitic vol] 9.0000 fL Normal 6.3-10.[address] [facility] Other WBC (Bld) [#/Vol] 5.874681701 10*3/uL Normal 3.8 -11.6 10*3/uL [facility] Other Complete Blood Count Auto Diff 5.6 10*3/uL Normal 3.8-11.6 10*3/uL [facility] Other Complete Blood Count Auto Diff 33.4 g/dL Normal 32.0-35.0 g/dL [facility] Other Complete Blood Count Auto Diff 0.3 /100{WBC} Normal 0-0.5 /100{WBC} [facility] Other Basophils (Bld) [#/Vol] 0.0 10*3/uL Normal 0.0-0.2 [facility] Comment on above: Result Comment: PERF ORMED BY: [facility] [address] [place] [address] PATHOLOGIST ENVIRONMENTAL DESIGNER KULWANT GOMEZ M.D. Performed By: #### C BC, TSH3, CMP, A1C [facility] eA, LIPID #### [facility] [address] [place] [address] [place] Basophils/100 WBC (Bld) 0.6 % Normal . F [facility] Comment on above: Performed By: #### C BC, TSH3, CMP, A1C WTH eA, LIPID #### [facility] [address] [place] [id number] [place] Eosinophils (Bld) [#/Vol] 0.1 10*3/uL Normal 0.0-0.45 [facility] Comment on above: Performed By: #### C BC, TSH3, CMP, A1C WTH eA, LIPID #### [facility] [address] [place] [address] Eosinophils/100 WBC (Bld) 2.3 % Normal . [facility] Comment on above: Performed By: #### C BC, TSH3, CMP, A1C WTH eA, LIPID #### [address] Erythrocyte distribution width (RBC) [Ratio] 12.4 % Normal 11.9-15.3 [facility] Comment on above: Performed By: #### C BC, TSH3, CMP, A1C WTH eA, LIPID #### [address] Hematocrit (Bld) [Volume fraction] 39.7 % Normal 34.0-46.4 [facility] Comment on above: Performed By: #### C BC, TSH3, CMP, A1C WTH eA, LIPID #### [address] Hemoglobin (Bld) [Mass/Vol] 13.2 g/dL Normal 11.8-15.4 [facility] Comment on above: Performed By: #### C BC, TSH3, CMP, A1C WTH eA, LIPID #### [address] Lymphocytes (Bld) [#/Vol] 1.3 10*3/uL Normal 1.00-4.8 [facility] Comment on above: Performed By: #### C BC, TSH3, CMP, A1C WTH eA, LIPID #### [place] [address] [place] Lymphocytes/100 WBC (Bld) 22.5 % Normal . [facility] Comment on above: Performed By: #### C BC, TSH3, CMP, A1C WTH eA, LIPID #### [address] MCH (RBC) [Entitic mass] 30.2 pg Normal 24.7-34.3 [facility] Comment on above: Performed By: #### C BC, TSH3, CMP, A1C WTH eA, LIPID #### [facility] [address] [place] [address] [place] MCV (RBC) [Entitic vol] 90.5 fL Normal 80-[address] [facility] Comment on above: Performed By: #### C BC, TSH3, CMP, A1C WTH eA, LIPID #### [facility] [address] [place] [address] [place] Mean Corpuscular HGB Conc 33.4 g/dL Normal 32.0-35.0 [facility] Comment on above: Performed By: #### C BC, TSH3, CMP, A1C WTH eA, LIPID #### [facility] [address] [place] [address] Monocytes (Bld) [#/Vol] 0.4 10*3/uL Normal 0.0-0.8 [facility] Comment on above: Performed By: #### C BC, TSH3, CMP, A1C WTH eA, LIPID #### [facility] [address] [place] [address] [place] Monocytes/100 WBC (Bld) 6.8 % Normal . F [facility] Comment on above: Performed By: #### C BC, TSH3, CMP, A1C WTH eA, LIPID #### [facility] [address] [place] [address] [place] Neutrophils (Bld) [#/Vol] 3.8 10*3/uL Normal 1.8-7.7 [facility] Comment on above: Performed By: #### C BC, TSH3, CMP, A1C WTH eA, LIPID #### [facility] [address] [place] [address] [place] Neutrophils/100 WBC (Bld) 67.8 % Normal . [facility] Comment on above: Performed By: #### C BC, TSH3, CMP, A1C WTH eA, LIPID #### [facility] [address] [place] [address] [place] NRBC% 0.3 /100{WBC} Normal 0-0.5 [facility] Comment on above: Performed By: #### C BC, TSH3, CMP, A1C WTH eA, LIPID #### [facility] [address] Platelet mean volume (Bld) [Entitic vol] 9.0 fL Normal 6.3-10.7 [facility] Comment on above: Performed By: #### C BC, TSH3, CMP, A1C WTH eA, LIPID #### [facility] [address] Platelets (Bld) [#/Vol] 232 10*3/uL Normal 150-450 [facility] Comment on above: Performed By: #### C BC, TSH3, CMP, A1C WTH eA, LIPID #### [facility] [address] RBC (Bld) [#/Vol] 4.38 10*6/uL Normal 3.60-5.00 [facility] Comment on above: Performed By: #### C BC, TSH3, CMP, A1C WTH eA, LIPID #### [facility] [address] WBC (Bld) [#/Vol] 5.6 10*3/uL Normal 3.8-11.6 [facility] Comment on above: Performed By: #### C BC, TSH3, CMP, A1C WTH eA, LIPID #### [facility] [address] Comprehensive Metabolic Pane amandeep 08-14-2022 Albumin [Mass/Vol] 3.060137 g/dL Normal 3.2-5.5 g/dL N [facility] [employer] Other Bilirubin [Mass/Vol] 0.9814289 mg/dL Normal 0.3- 1.2 mg/dL [facility] Other Calcium [Mass/Vol] 9.9982283 mg/dL Normal 8.2-10 .2 mg/dL [facility] Other CO2 [Moles/Vol] 23.56878674 mmol/L Normal 22.0-3 0.0 mmol/L [facility] Other Creatinine [Mass/Vol] 0.85796388 mg/dL Normal 0. 44-1.03 mg/dL [place] [employer] Other Potassium [Moles/Vol] 3.88270462 mmol/L Normal 3 .5-5.1 mmol/L [place] [employer] Other Protein [Mass/Vol] 6.817097 g/dL Normal 6.1-7.9 g/dL N [facility] [employer] Other Comprehensive Metabolic Panel > 60 [facility] [employer] Other Comprehensive Metabolic Panel 2.7 g/dL [facility] [employer] Other Albumin [Mass/Vol] 3.9 g/dL Normal 3.2-5.5 [facility] Comment on above: Performed By: #### C BC, TSH3, CMP, A1C WTH eA, LIPID #### [facility] [address] Albumin/Globulin [Mass ratio] 1.4 {ratio} [facility] Comment on above: Performed By: #### C BC, TSH3, CMP, A1C WTH eA, LIPID #### [facility] [address] [place] [address] [place] ALP [Catalytic activity/Vol] 69 U/L Normal 32-92 [facility] Comment on above: Performed By: #### C BC, TSH3, CMP, A1C WTH eA, LIPID #### [facility] [address] [place] [address] [place] ALT [Catalytic activity/Vol] 34 U/L Normal 10-60 [facility] [employer] Other Comment on above: Performed By: #### C BC, TSH3, CMP, A1C WTH eA, LIPID #### [facility] [address] [place] [address] [place] Anion gap [Moles/Vol] 9.7 mmol/L Normal 6.0-15.0 [facility] Comment on above: Performed By: #### C BC, TSH3, CMP, A1C WTH eA, LIPID #### [facility] [address] [place] [address] [place] AST [Catalytic activity/Vol] 30 U/L Normal 10-42 [facility] Comment on above: Performed By: #### C BC, TSH3, CMP, A1C WTH eA, LIPID #### [facility] [address] [place] [address] [place] Bilirubin [Mass/Vol] 0.7 mg/dL Normal 0.3-1.2 [facility] Comment on above: Performed By: #### C BC, TSH3, CMP, A1C WTH eA, LIPID #### [facility] [address] Calcium [Mass/Vol] 9.2 mg/dL Normal 8.2-10.2 [facility] Comment on above: Performed By: #### C BC, TSH3, CMP, A1C WTH eA, LIPID #### [facility] [address] Chloride [Moles/Vol] 108 mmol/L Normal 95-114 [facility] Comment on above: Performed By: #### C BC, TSH3, CMP, A1C WTH eA, LIPID #### [facility] [address] [place] [address] [place] CO2 [Moles/Vol] 23.1 mmol/L Normal 22.0-30.0 [facility] Comment on above: Performed By: #### C BC, TSH3, CMP, A1C WTH eA, LIPID #### [facility] [address] [place] [address] [place] Creatinine [Mass/Vol] 0.75 mg/dL Normal 0.44-1.03 [facility] Comment on above: Performed By: #### C BC, TSH3, CMP, A1C WTH eA, LIPID #### [facility] [address] [place] [address] [place] Estimated GFR ( Queenie > 60 Normal [facility] Comment on above: Result Comment: GFR estimated reference range: According to KDOQI guidelines, <60 ml/min/1.73m2 is sufficient to diagnose a patient with chronic kidney disease. Performed By: #### C BC, TSH3, CMP, A1C WTH eA, LIPID #### [facility] [address] [place] [address] [place] Estimated GFR (Non- Am > 60 Normal [facility] Comment on above: Performed By: #### C BC, TSH3, CMP, A1C WTH eA, LIPID #### [facility] [address] Globulin (S) [Mass/Vol] 2.7 g/dL Normal [facility] Comment on above: Performed By: #### C BC, TSH3, CMP, A1C WTH eA, LIPID #### [facility] [address] Glucose [Mass/Vol] 87 mg/dL Normal 70-100 [facility] Comment on above: Result Comment: [facility] Glucose Reference Range is dependent on time and content of last meal. Glucose of more than 200 mg/dL in a nonstressed, ambulatory subject supports the diagnosis of Diabetes Mellitus. ADA recommended reference range Performed By: #### C BC, TSH3, CMP, A1C WTH eA, LIPID #### [facility] [address] Potassium [Moles/Vol] 3.8 mmol/L Normal 3.5-5.1 [facility] Comment on above: Performed By: #### C BC, TSH3, CMP, A1C WTH eA, LIPID #### [facility] [address] [place] [address] [place] Protein [Mass/Vol] 6.6 g/dL Normal 6.1-7.9 [facility] Comment on above: Performed By: #### C BC, TSH3, CMP, A1C WTH eA, LIPID #### [facility] [address] Sodium [Moles/Vol] 137 mmol/L Normal 136-146 [facility] Comment on above: Performed By: #### C BC, TSH3, CMP, A1C WTH eA, LIPID #### [facility] [address] [place] [address] [place] Urea nitrogen [Mass/Vol] 5 mg/dL Low 9-23 [facility] Comment on above: Performed By: #### C BC, TSH3, CMP, A1C WTH eA, LIPID #### [facility] [address] Creatinine and Glomerular fi ltration rate.predicted panel (S/P/Bld)Ordered By: Becky Romeo on 08-14-2022 Creatinine [Mass/Vol] 0.75 mg/dL 0.44-1.03 [facility] Eosinophils Auto (Bld) [#/Vo l]Ordered By: Becky Romeo on 08-14-2022 Eosinophils (Bld) [#/Vol] 0.1 10*3/uL 0.0-0.45 [facility] Eosinophils/100 WBC Auto (Bl d)Ordered By: Becky Romeo on 08-14-2022 Eosinophils/100 WBC (Bld) 2.3 % . [facility] Erythrocyte distribution wid th Auto (RBC) [Ratio]Ordered By: Becky Romeo on 08-14-2022 Erythrocyte distribution width (RBC) [Ratio] 12.4 % 11.9-15.3 [facility] Erythrocytes [#/volume] in B lood by Automated countOrdered By: Becky Romeo on 08-14-2022 RBC (Bld) [#/Vol] 4.38 10*6/uL Normal 3.60-5.00 [facility] Estimated glomerular filtrat ion rate (GFR) non- AmericanOrdered By: Becky Romeo on 08-14-2022 GFR/1.73 sq M.predicted among non-blacks MDRD (S/P/Bld) [Vol rate/Area] > 60 mL/Min [facility] Globulin Calc (S) [Mass/Vol] Ordered By: Becky Romeo on 08-14-2022 Globulin (S) [Mass/Vol] 2.7 g/dL F [facility] Hematocrit Auto (Bld) [Volum e fraction]Ordered By: Becky Romoe on 08-14-2022 Hematocrit (Bld) [Volume fraction] 39.7 % 34.0-46.4 [facility] Hemoglobin [Mass/volume] in BloodOrdered By: Becky Romeo on 08-14-2022 Hemoglobin (Bld) [Mass/Vol] 13.2 g/dL 11.8-15.4 [facility] Leukocytes [#/volume] correc kalyani for nucleated erythrocytes in Blood by Automated counOrdered By: Becky Romeo on 08-14-2022 WBC corrected for nucl RBC Auto (Bld) [#/Vol] 5.6 10*3/uL 3.8-11.6 [facility] Lipid Panelon 08-14-2022 Cholesterol in LDL Elph Qn 146 mg/dL High 0-100 mg/dL [facility] [employer] Other Lipid Panel 84 mg/dL Normal 35-149 mg/dL [facility] [employer] Other Lipid Panel 16 mg/dL [facility] [employer] Other Cholesterol [Mass/Vol] 195 mg/dL Normal 140-200 [facility] Comment on above: Result Comment: Chol less than 200 mg/dl low risk Chol 201-239 mg/dl borderline risk Chol 240 mg/dl and greater high risk Performed By: #### C BC, TSH3, CMP, A1C WTH eA, LIPID #### [facility] [address] [place] [id number] [place] Cholesterol in HDL [Mass/Vol] 32 mg/dL Low 35-85 [facility] Comment on above: Result Comment: HDL CHOL ATP-III CLASSIFICATION Cardiovascular Risk HDL > or equal to 60 mg/dL LOW HDL < 40 mg/dL HIGH Performed By: #### C BC, TSH3, CMP, A1C WTH eA, LIPID #### [facility] [address] [place] [address] [place] Cholesterol.total/Vero sterol in HDL [Mass ratio] 6.1 {ratio} Normal <5.0 [facility] Comment on above: Performed By: #### C BC, TSH3, CMP, A1C WTH eA, LIPID #### [facility] [address] [place] [id number] [place] LDL Cholesterol,Calculated 146 mg/dL High 0-100 [facility] Comment on above: Result Comment: LDL ATP III CLASSIFICATION LDL less than 100 mg/dL Optimal LDL 100-129 mg/dL Near or above optimal LDL 130-159 mg/dL Borderline high LDL 160-189 mg/dL High LDL greater than 189 mg/dL Very high Performed By: #### C BC, TSH3, CMP, A1C WT eA, LIPID #### [facility] [address] [place] [id number] [facility] Triglyceride w/Reflex 84 mg/dL Normal 35-149 [facility] Comment on above: Result Comment: TRIG ATP III CLASSIFICATION TRIG less than 150 mg/dL Normal TRIG 150-199 mg/dL Borderline high TRIG 200-500 mg/dL High TRIG greater than 500 mg/dL Very high Standard traceable to the Center for Disease Conrtrol and Prevention (CDC) test method. Performed By: #### C BC, TSH3, CMP, A1C WT eA, LIPID #### [facility] [address] [place] [id number] [facility] VLDL CHOLESTEROL 16 mg/dL Normal [facility] Comment on above: Performed By: #### C BC, TSH3, CMP, A1C [facility] eA, LIPID #### [facility] [address] [place] [id number] [place] Lymphocytes Auto (Bld) [#/Vo l]Ordered By: Becky Romeo on 08-14-2022 Lymphocytes (Bld) [#/Vol] 1.3 10*3/uL 1.00-4.8 [facility] Lymphocytes/100 WBC Auto (Bl d)Ordered By: Becky Romeo on 08-14-2022 Lymphocytes/100 WBC (Bld) 22.5 % . [facility] MCH Auto (RBC) [Entitic mass ]Ordered By: Becky Romeo on 08-14-2022 MCH (RBC) [Entitic mass] 30.2 pg 24.7-34.3 [facility] MCHC Auto (RBC) [Mass/Vol]Or dered By: Becky Romeo on 08-14-2022 MCHC (RBC) [Mass/Vol] 33.4 g/dL 32.0-35.0 [facility] MCV Auto (RBC) [Entitic vol] Ordered By: Becky Romeo on 08-14-2022 MCV (RBC) [Entitic vol] 90.5 fL 80-[address] [facility] Monocytes Auto (Bld) [#/Vol] Ordered By: Becky Romeo on 08-14-2022 Monocytes (Bld) [#/Vol] 0.4 10*3/uL 0.0-0.8 [facility] Monocytes/100 WBC Auto (Bld) Ordered By: Becky Romeo on 08-14-2022 Monocytes/100 WBC (Bld) 6.8 % . F [facility] Neutrophils Auto (Bld) [#/Vo l]Ordered By: Becky Romeo on 08-14-2022 Neutrophils (Bld) [#/Vol] 3.8 10*3/uL 1.8-7.7 [facility] Neutrophils/100 WBC Auto (Bl d)Ordered By: Becky Romeo on 08-14-2022 Neutrophils/100 WBC (Bld) 67.8 % . [facility] No Panel InformationOrdered By: Becky Romeo on 08-14-2022 Estimated GFR () > 60 mL/Min [facility] Comment on above: GFR estimated refere nce range: According to KDOQI guidelines, <60 ml/min/1.73m2 is sufficient to diagnose a patient with chronic kidney disease. Pharmacy Creatinine Clearance (Chem N/A [facility] Nucleated erythrocytes [Pres ence] in Blood by Automated countOrdered By: Becky Romeo on 08-14-2022 Nucleated RBC Auto Ql (Bld) 0.3 /100{WBC} 0-0.5 [facility] Platelet mean volume Auto (B ld) [Entitic vol]Ordered By: Becky Romeo on 08-14-2022 Platelet mean volume (Bld) [Entitic vol] 9.0 fL 6.3-10.7 [facility] Platelets [#/volume] in Bloo d by Automated countOrdered By: Becky Romeo on 08-14-2022 Platelets (Bld) [#/Vol] 232 10*3/uL Normal 150- 450 10*3/uL [facility] Protein [Mass/volume] in Ser um or PlasmaOrdered By: Becky Romeo on 08-14-2022 Protein [Mass/Vol] 6.6 g/dL 6.1-7.9 [facility] Serum or plasma alanine kinsey otransferase measurement without P-5'-P (enzymatic activiOrdered By: Becky Romeo on 08-14-2022 ALT No additional P-5'-P [Catalytic activity/Vol] 34 U/L 10-60 [facility] Serum or plasma albumin/glob ulin mass ratioOrdered By: Becky Romeo on 08-14-2022 Albumin/Globulin [Mass ratio] 1.4 {ratio} [facility] Serum or plasma alkaline jean claude sphatase measurement (enzymatic activity/volume)Ordered By: Becky Romeo on 08-14-2022 ALP [Catalytic activity/Vol] 69 U/L Normal 32-92 U/L [facility] Serum or plasma anion gap de terminationOrdered By: Becky Romeo on 08-14-2022 Anion gap [Moles/Vol] 9.7 mmol/L 6.0-15.0 [facility] Serum or plasma aspartate am inotransferase measurement (enzymatic activity/volume)Ordered By: Becky Romeo on 08-14-2022 AST [Catalytic activity/Vol] 30 U/L Normal 10-42 U/L [facility] Serum or plasma calcium daily urement (mass/volume)Ordered By: Becky Romeo on 08-14-2022 Calcium [Mass/Vol] 9.2 mg/dL 8.2-10.2 [facility] Serum or plasma chloride julisa surement (moles/volume)Ordered By: Becky Romeo on 08-14-2022 Chloride [Moles/Vol] 108 mmol/L Normal 95-114 mmol/L [facility] Serum or plasma glucose daily urement (mass/volume)Ordered By: Becky Romeo on 08-14-2022 Glucose [Mass/Vol] 87 mg/dL Normal 70-100 mg/dL [facility] Comment on above: ADA recommended refe rence rangeRandom Glucose Reference Range is dependent on time and content of last meal. Glucose of more than 200 mg/dL in a nonstressed, ambulatory subject supports the diagnosis of Diabetes Mellitus. Serum or plasma high density lipoprotein (HDL) cholesterol measurementOrdered By: Becky Romeo on 08-14-2022 Cholesterol in HDL [Mass/Vol] 32 mg/dL Low 35-85 mg/dL [facility] Comment on above: HDL CHOL ATP-III CLA SSIFICATION Cardiovascular RiskHDL > or equal to 60 mg/dL LOWHDL < 40 mg/dL HIGH Serum or plasma potassium me asurement (moles/volume)Ordered By: Becky Romeo on 08-14-2022 Potassium [Moles/Vol] 3.8 mmol/L 3.5-5.1 [facility] Serum or plasma sodium measu rement (moles/volume)Ordered By: Becky Romeo on 08-14-2022 Sodium [Moles/Vol] 137 mmol/L Normal 136-146 mmol/L [facility] Serum or plasma total biliru bin measurement (mass/volume)Ordered By: Becky Romeo on 08-14-2022 Bilirubin [Mass/Vol] 0.7 mg/dL 0.3-1.2 [facility] Serum or plasma total carbon dioxide measurement (moles/volume)Ordered By: Becky Romeo on 08-14-2022 CO2 [Moles/Vol] 23.1 mmol/L 22.0-30.0 [facility] Serum or plasma total choles terol/high density lipoprotein (HDL) cholesterol mass ratOrdered By: Becky Romeo on 08-14-2022 Cholesterol.total/Vero sterol in HDL [Mass ratio] 6.1 {ratio} <5.0 [facility] Serum or plasma urea nitroge n measurement (mass/volume)Ordered By: Becky Romeo on 08-14-2022 Urea nitrogen [Mass/Vol] 5 mg/dL Low 9-23 mg/dL [facility] TSH DL <= 0.005 mIU/L QnOrde red By: Becky Romeo on 08-14-2022 TSH Qn 1.77 m[IU]/L 0.45-5.33 [facility] Thyroid Stimulating Hormoneo n 08-14-2022 TSH Qn 1.77 m[IU]/L Normal 0.45-5.33 [facility] Comment on above: Result Comment: PERF ORMED BY: [place] [address] PATHOLOGIST ENVIRONMENTAL DESIGNER KULWANT GOMEZ M.D. Performed By: #### C BC, TSH3, CMP, A1C WTH eA, LIPID #### [facility] [address] Triglyceride [Mass/volume] i n Serum or PlasmaOrdered By: Becky Romeo on 08-14-2022 Triglyceride [Mass/Vol] 84 mg/dL 35-[address] [facility] Comment on above: TRIG ATP III CLASSIF ICATIONTRIG less than 150 mg/dL NormalTRIG 150-199 mg/dL Borderline highTRIG 200-500 mg/dL High TRIG greater than 500 mg/dL Very highStandard traceable to the Center for Disease Conrtrol and Prevention (CDC) test method. WBC Auto (Bld) [#/Vol]Ordere d By: Becky Romeo on 08-14-2022 WBC (Bld) [#/Vol] 5.6 10*3/uL 3.8-11.6 [facility] XR chest 2V*on 08-13-2022 XR chest 2V* [facility] Main [place] [address] [place] [address] XRay Report Signed Patient: Edwige Patterson MR#: [id number] : 2000 Acct:[id number] Age/Sex: 22 / F ADM Date: 08/13/22 Loc: [facility] Room: Type: [facility] Attending Dr: Becky Romeo DO Copies to: [...] Misbah Mast M.D.08/13/2022 3:23 PM Dictation Location: [place] [address] Transcribed By: [facility] 08/13/22 1523 Dictated By: Misbah Mast DO 08/13/22 1522 Signed By: 08/13/22 1523 Normal [facility] XR chest 2V* [facility] [employer] Other XR chest 2V* [facility] [employer] Other XR chest 2V* [address] [place] [address] [employer] Other XR chest 2V* [place] [address] [facility] [employer] Other XR chest 2V* XRay Report [facility] Other XR chest 2V* Signed [facility] Other XR chest 2V* Patient: Edwige Patterson MR#: [id number] [facility] Other XR chest 2V* [id number] [facility] Other XR chest 2V* : 2000 Acct:[id number] [facility] Other XR chest 2V* Age/Sex: 22 / F ADM Date: 08/13/22 [facility] Other XR chest 2V* Loc: [facility] Room: Type : [facility] Other XR chest 2V* Attending Dr: Diane Romeo DO [facility] Other XR chest 2V* Copies to: Becky Romeo, [facility] Other XR chest 2V* Ordering Provider: Becky Romeo DO [facility] Other XR chest 2V* Date of Service: 08/13/22 [facility] Other XR chest 2V* XR/XR chest 2V*: Cough, unspecified type [facility] Other XR chest 2V* Plain film chest2 view [facility] Other XR chest 2V* HISTORY:Productive cough. Wheezing. [facility] Other XR chest 2V* COMPARISON:None [facility] [employer] Other XR chest 2V* FINDINGS: The cardiac, mediastinal and hilar silhouettes are within normal limits. No acute lung [facility] Other XR chest 2V* process, pleural effusion or pneumothorax identified. Bony structures are intact. [facility] Other XR chest 2V* XR/XR chest 2V* [facility] Other XR chest 2V* IMPRESSION: No acute process. [facility] Other XR chest 2V* Impression dictated by: Misbah Mast M.D.08/13/2022 3:[address] [facility] Other XR chest 2V* Dictation Location: [place] [address] [facility] Other XR chest 2V* Transcribed By: DOMINIQUE 08/13/22 [facility] Other XR chest 2V* Dictated By: Misbah Mast DO 08/13/[address] [facility] Other XR chest 2V* Signed By: [facility] Other XR chest 2V* 08/13/22 [facility] [employer] [facility] [employer] Other Quick Strepon 08-05-2022 S. pyogenes Org specific cx Ql (Throat) Positive [facility] [employer] Other Quick Strep [employer] [facility] [employer] Other COVID Quick Testingon [address] [facility] Other COVID + FLU Quick Testingon 07-03-2021 SARS-CoV-2 (COVID-19) RNA THA+probe Ql (Unsp spec) Positive [facility] Other COVID + FLU Quick Testing Negative [facility] Other Q - THINPREP(R) TIS AND HPV MRNA E6/E7 RFL HPV 16/18/45on 06-20-2021 CLINICAL INFORMATION: None given Normal [facility] Specialist Comment on above: Order Comment: [facility] at: [facility], [address] [place] [address], [phone], Ripening Room Attendant: Ramana Taylor MD Testing performed at: [facility], [address] [place] [address], [phone], Ripening Room Attendant: Mani Anderson [facility] Collection Date/Time: [facility] Results Received Date/Time: [facility] Reported Date/Time: FASTING: UNKNOWN Result Comment: [[facility] ] Performed By: #### 9 1414 #### [facility] Default [address] [place] [address] COMMENT SEE NOTE Normal [facility] Comment on above: Order Comment: [facility] Testing performed at: [employer], [phone], Ripening Room Attendant: Ramana Taylor MD Testing performed at: [facility], [address] [place], [phone], Ripening Room Attendant: Mani Anderson [facility] Collection Date/Time: [facility] Results [...] 9 1414 #### [facility] Default [address] [place] [address] COMMENT: This Pap test has been evaluated with computer assisted technology. Normal [facility] Comment on above: Order Comment: [facility] Testing performed at: [employer], [address] [place] [address], Ripening Room Attendant: Ramana Taylor MD Testing performed at: [employer] [facility], [address] [place] [address], [address] [place] [address], Ripening Room Attendant: Mani Anderson [facility] Collection Date/Time: [facility] Results Received Date/Time: [facility] Reported Date/Time: FASTING: UNKNOWN Result Comment: [[facility] ] Performed By: #### 9 1414 #### [facility] Default [address] [place], [place] [id number] INSIDE BARREL LATHE OPERATOR: SEE NOTE Normal See Note: [facility] Comment on above: Order Comment: [facility] Testing performed at: [address], [address] [place] [address], [address] [place] [address], Ripening Room Attendant: Ramana Taylor MD Testing performed at: [facility], [address] [place] [address], [address] [place] [address], Ripening Room Attendant: Mani Anderson [facility] Collection Date/Time: [facility] Results Received Date/Time: [facility] Reported Date/Time: FASTING: UNKNOWN Result Comment: Refe rence Range: ZL, CT(ASCP) CT screening location: [place] [address]. [QBU] Performed By: #### 9 1414 #### [facility] Default [address] [place] [address] GENERAL CATEGORIZATION: EPITHELIAL CELL ABNORMALITY Abnormal [facility] Comment on above: Order Comment: [facility] Testing performed at: [facility], [address] [place] [address], [address] [place] [address], [address] [place] [address], Ripening Room Attendant: Ramana Taylor MD Testing performed at: [facility], [address] [place] [address], [address] [place] [address], Ripening Room Attendant: Mani Anderson [facility] Collection Date/Time: [facility] Results Received Date/Time: [facility] Reported Date/Time: FASTING: UNKNOWN Result Comment: [QBU ] Performed By: #### 9 1414 #### [facility] [address] [place] [address] HPV mRNA E6/E7 Detected Abnormal Not Detected [facility] Comment on above: Order Comment: [facility] Testing performed at: [facility], [address] [place] [address], [address] [place] [address], [address] [place] [address], Ripening Room Attendant: Ramana Taylor MD Testing performed at: [facility], [address] [place] [address], [address] [place] [address], Ripening Room Attendant: Mani Anderson [facility] Collection Date/Time: [facility] Results Received Date/Time: [facility] Reported Date/Time: FASTING: UNKNOWN Result Comment: Meth odology: General Scrap Worker-Mediated Amplification This assay detects E6/E7 viral messenger RNA (mRNA) from 14 high-risk HPV types (16,18,31,33,35,39,45,51,52,56,58,59,66,68). The analytical performance characteristics of this assay have been determined by [employer]. The modifications have not been cleared or approved by the FDA. This assay has been validated pursuant to the CLIA regulations and is used for clinical purposes. For additional information, please refer to http://education.[employer].Shop 9 Seven/faq/UNL090y2 (This link if provided for information/ educational purposes only.) [O6K] Performed By: #### 9 1414 #### [facility] Default [address] [place] [address] INTERPRETATION/RESULT: Atypical Squamous Cells of Undetermined Significance (ASC-US) Abnormal [facility] Comment on above: Order Comment: [facility] Testing performed at: [facility], [address] [place] [address], [address] [place] [address], [address] [place] [address], Ripening Room Attendant: Ramana Taylor MD Testing performed at: [facility], [address] [place] [address], [address] [place] [address], Ripening Room Attendant: Mani Anderson [facility] Collection Date/Time: [facility] Results Received Date/Time: [facility] Reported Date/Time: FASTING: UNKNOWN Result Comment: [QBU ] Performed By: #### 9 1414 #### [facility] Default [address] [place] [id number] LMP: None given Normal [facility] Comment on above: Order Comment: [facility] Testing performed at: [facility], [address] [place] [address], [address] [place] [address], [address] [place] [address], Ripening Room Attendant: Ramana Taylor MD [facility] performed at: [facility], [address] [place] [address], [id number], Ripening Room Attendant: Mani Anderson Quest Collection Date/Time: [facility] Results Received Date/Time: [facility] Reported Date/Time: FASTING: UNKNOWN Result Comment: [QBU ] Performed By: #### 9 1414 #### [facility] [address] [place] [id number] PATHOLOGIST: SEE NOTE Normal [facility] [employer] Architect Comment on above: Order Comment: [facility] Testing performed at: [employer] [employer], [address] [place] [address], [address] [place] [address], [address] [place] [address], Ripening Room Attendant: Ramana Taylor MD Testing performed at: [facility], [address] [place], [phone], Ripening Room Attendant: Mani Anderson Quest Collection Date/Time: [facility] Results Received Date/Time: [facility] Reported Date/Time: FASTING: UNKNOWN Result Comment: Vance Anderson MD, PhD, M.B.A. Board Certified in Anatomic and Clinical Pathology Board Certified in Cytopathology (electronic signature) For questions regarding this report call Anatomic Pathology at [phone] [QBU] Performed By: #### 9 1414 #### [facility] Default [address] [place] [address] PREV. BX: None given Normal [facility] Comment on above: Order Comment: [facility] Testing performed at: [facility], [address] [place] [address], [address] [place] [address], [phone], Ripening Room Attendant: Ramana Taylor MD Testing [facility] at: [facility], [address] [place], [phone], Ripening Room Attendant: Mani Anderson Quest Collection Date/Time: [facility] Results Received Date/Time: [facility] Reported Date/Time: FASTING: UNKNOWN Result Comment: [QBU ] Performed By: #### 9 1414 #### [facility] [address] [place] [address] PREV. PAP: None given Normal [facility] Comment on above: Order Comment: [facility] performed at: [facility], [address] [place] [address], [address] [place] [address], [phone], Ripening Room Attendant: Ramana Taylor MD Testing [facility], [address] [place], [address], Ripening Room Attendant: Mani Anderson Quest Collection Date/Time: [facility] Results Received Date/Time: [facility] Reported Date/Time: FASTING: UNKNOWN Result Comment: [QBU ] Performed By: #### 9 1414 #### [facility] [address] [place] [address] SOURCE: None given Normal [facility] Comment on above: Order Comment: [facility] Testing performed at: [facility], [address] [place] [address], [address] [place] [address], [address] [place] [address], Ripening Room Attendant: Ramana Taylor MD Testing performed [facility]: [facility], [address] [place] [address], [address] [place] [address], Ripening Room Attendant: Mani Anderson Quest Collection Date/Time: [facility] Results Received Date/Time: [facility] Reported Date/Time: FASTING: UNKNOWN Result Comment: [QBU ] Performed By: #### 9 1414 #### [facility] Default [address] [place] [address] STATEMENT OF ADEQUACY: SEE NOTE Normal [facility] Comment on above: Order Comment: [facility] Testing performed at: [facility], [address] [place] [address], [address] [place] [address], [address] [place] [address], Ripening Room Attendant: Ramana Taylor MD Testing performed at: [facility], [address] [place] [address], [address] [place] [address], Ripening Room Attendant: Mani Anderson Quest Collection Date/Time: [facility] Results Received Date/Time: [facility] Reported Date/Time: FASTING: UNKNOWN Result Comment: Sati sfactory for evaluation. Endocervical/transformation zone component present. [QBU] Performed By: #### 9 1414 #### [facility] Default [address] [place] [address] XR Finger Lefton 06-20-2021 XR Finger Left FINDINGS: PIP soft tissue swelling. Minimally distracted volar plate fracture, middle phalangeal base. Minimal arthritis. IMPRESSION: Minimally distracted 4th PIP joint volar plate fracture Report reported and signed by Hubert Lewis on 06/20/2021 1443 Normal [facility] PREG HCG QUALon 05-19-2020 , QUAL Negative Normal NEGATIVE [facility] Comment on above: Performed By: #### P REG #### [facility] [address] [place], [place] [address] Liam Ayala COVID-19 PCRon 05-14-2020 SARS-CoV-2 (COVID-19) RNA THA+probe Ql (Unsp spec) Not detected Normal Not Detected [facility] Comment on above: Result Comment: This nucleic acid amplification test was developed and its performance characteristics determined by [employer]. Nucleic acid amplification tests include PCR and [...] Performed By: #### C VDSTAT, CVDPCR #### [facility] [address] [place], [place] [address] Liam Ayala PRIORITY COVID PROCESSINGon 05-14-2020 Comment Comment Normal [facility] Comment on above: Result Comment: Rece ived Performed By: #### C VDSTAT, CVDPCR #### [facility] [address] [place], [place] [address] Liam Ayala Vital Signs Date Time Vital Sign Value Performing Clinician Facility 02-14-2025 17:17-0400 Body height 167.6 cm [facility] Work Phone: [facility] 02-14-2025 17:17-0400 Body mass index (BMI) [Ratio] 38.9 kg/m2 Jovita Floro CNM Work Phone: [facility] 02-14-2025 17:17-0400 Body weight 109.32 kg Jovita ROBERTSM Work Phone: [facility] 02-14-2025 17:17-0400 Diastolic blood pressure 78 mm[Hg] Jovita Salas CNM Work Phone: [facility] 02-14-2025 17:17-0400 Heart rate 78 /min Jovita Salas CNM Work Phone: [facility] 02-14-2025 17:17-0400 Respiratory rate 18 /min Jovita Salas CNM Work Phone: [facility] 02-14-2025 17:17-0400 SaO2% (BldA) [Mass fraction] 98 % Jovita Salas CNM Work Phone: [facility] 02-14-2025 17:17-0400 Systolic blood pressure 130 mm[Hg] Jovita Salas CNM Work Phone: [facility] 01-11-2025 09:15-0400 Body height 170.18 cm Becky Romeo DO Work Phone: [facility] 01-11-2025 09:15-0400 Body mass index (BMI) [Ratio] 37.6 kg/m2 Becky Romeo DO Work Phone: [facility] 01-11-2025 09:15-0400 Body weight 109.1 kg Becky Romeo DO Work Phone: [facility] 12-03-2024 14:00-0400 Heart rate 90 /min Ness Majors CABLEMAN Work Phone: [facility] 12-03-2024 13:44-0400 Body height 167.6 cm Ness Majors CABLEMAN Work Phone: [facility] 12-03-2024 13:44-0400 Body mass index (BMI) [Ratio] 39.38 kg/m2 Ness Majors CABLEMAN Work Phone: [facility] 12-03-2024 13:44-0400 Body weight 110.68 kg Nesskya Montez CABLEMAN Work Phone: [facility] 12-03-2024 13:44-0400 Diastolic blood pressure 82 mm[Hg] Ness Adrianocuauhtemoc CABLEMAN Work Phone: [facility] 12-03-2024 13:44-0400 Respiratory rate 18 /min Ness Adrianocuauhtemoc CABLEMAN Work Phone: [facility] 12-03-2024 13:44-0400 SaO2% (BldA) [Mass fraction] 97 % Ness Adriano CABLEMAN Work Phone: [facility] 12-03-2024 13:44-0400 Systolic blood pressure 134 mm[Hg] Ness Adrianocuauhtemoc CABLEMAN Work Phone: [facility] 11-24-2024 13:12-0400 SaO2% (BldA) [Mass fraction] 94 % Becky Ousmane DO Work Phone: [facility] [employer] 11-24-2024 13:00-0400 Body temperature 98.01 [degF] Becky Ousmane DO Work Phone: [facility] [employer] 11-24-2024 13:00-0400 Diastolic blood pressure 76 mm[Hg] Becky Ousmane DO Work Phone: [facility] [employer] 11-24-2024 13:00-0400 Heart rate 89 /min Becky Ousmane DO Work Phone: [facility] [employer] 11-24-2024 13:00-0400 Respiratory rate 16 /min Becky Ousmane DO Work Phone: [facility] [employer] 11-24-2024 13:00-0400 Systolic blood pressure 117 mm[Hg] Becky Ousmane DO Work Phone: [facility] [employer] 08-10-2024 16:06-0500 Body height 167.6 cm Jovita ROBERTS Work Phone: [facility] 08-10-2024 16:06-0500 Body mass index (BMI) [Ratio] 39.64 kg/m2 Jovita Salas CNM Work Phone: [facility] 08-10-2024 16:06-0500 Body weight 111.4 kg Jovita ROBERTS Work Phone: [facility] 08-10-2024 16:06-0500 Diastolic blood pressure 70 mm[Hg] Jovita ROBERTS Work Phone: [facility] 08-10-2024 16:06-0500 Systolic blood pressure 118 mm[Hg] Jovita ROBERTS Work Phone: [facility] 08-05-2024 10:19-0500 Body temperature 98.4 [degF] Priyank Gaspar MD Work Phone: [facility] [employer] 08-05-2024 10:19-0500 Diastolic blood pressure 56 mm[Hg] Priyank Gaspar MD Work Phone: [facility] 08-05-2024 10:19-0500 Heart rate 114 /min Priyank Gaspar MD Work Phone: [facility] [employer] 08-05-2024 10:19-0500 Respiratory rate 18 /min Priyank Gaspar MD Work Phone: [facility] [employer] 08-05-2024 10:19-0500 SaO2% (BldA) [Mass fraction] 97 % Priyank Gaspar MD Work Phone: [facility] [employer] 08-05-2024 10:19-0500 Systolic blood pressure 97 mm[Hg] Priyank Gaspar MD Work Phone: [facility] [employer] 07-20-2024 18:12-0500 SaO2% (BldA) [Mass fraction] 97 % Yoli Lal MD Work Phone: [facility] [employer] 07-20-2024 15:37-0500 Body height 170.2 cm Yoli Lal MD Work Phone: [employer] 07-20-2024 15:37-0500 Body mass index (BMI) [Ratio] 37.59 kg/m2 Yoli Lal MD Work Phone: [employer] [facility] [employer] 07-20-2024 15:37-0500 Body temperature 98.29 [degF] Yoli Lal MD Work Phone: [employer] 07-20-2024 15:37-0500 Body weight 108.86 kg Yoli Lal MD Work Phone: [facility] [employer] 07-20-2024 15:37-0500 Diastolic blood pressure 76 mm[Hg] Yoli Lal MD Work Phone: [facility] 07-20-2024 15:37-0500 Heart rate 100 /min Yoli Lal MD Work Phone: [employer] 07-20-2024 15:37-0500 Respiratory rate 18 /min Yoli Lal MD Work Phone: [facility] [employer] 07-20-2024 15:37-0500 Systolic blood pressure 110 mm[Hg] Yoli Lla MD Work Phone: [facility] 05-24-2024 08:46-0500 Body height 167.6 cm Destinee Britton MD Work Phone: [facility] 05-24-2024 08:46-0500 Body mass index (BMI) [Ratio] 39 kg/m2 Destinee Britton MD Work Phone: [facility] 05-24-2024 08:46-0500 Body weight 109.59 kg Destinee Britton MD Work Phone: [facility] 05-24-2024 08:46-0500 Diastolic blood pressure 74 mm[Hg] Destinee Britton MD Work Phone: [facility] 11-18-2024 08:46-0500 Heart rate 91 /min Destinee Britton MD Work Phone: [facility] 05-24-2024 08:46-0500 Respiratory rate 18 /min Destinee Britton MD Work Phone: [facility] 05-24-2024 08:46-0500 SaO2% (BldA) [Mass fraction] 97 % Destinee Britton MD Work Phone: [facility] 05-24-2024 08:46-0500 Systolic blood pressure 114 mm[Hg] Destinee Britton MD Work Phone: [facility] 05-20-2024 15:22-0500 Body height 167.6 cm Destinee Britton MD Work Phone: [facility] 05-20-2024 15:22-0500 Body mass index (BMI) [Ratio] 39.96 kg/m2 Destinee Britton MD Work Phone: [facility] 05-20-2024 15:22-0500 Body weight 112.31 kg Destinee Britton MD Work Phone: [facility] 05-20-2024 15:22-0500 Diastolic blood pressure 72 mm[Hg] Destinee Britton MD Work Phone: [facility] 05-20-2024 15:22-0500 Heart rate 116 /min Destinee Britton MD Work Phone: [facility] 05-20-2024 15:22-0500 Respiratory rate 18 /min Destinee Britton MD Work Phone: [facility] 05-20-2024 15:22-0500 SaO2% (BldA) [Mass fraction] 99 % Destinee Britton MD Work Phone: [facility] 05-20-2024 15:22-0500 Systolic blood pressure 134 mm[Hg] Destinee Britton MD Work Phone: [facility] 05-10-2024 13:59-0500 Body mass index (BMI) [Ratio] 39.87 kg/m2 Jovita Salas CNM Work Phone: [facility] 05-10-2024 13:59-0500 Body weight 112.04 kg Jovita ROBERTS Work Phone: [facility] 11-11-2023 14:36-0400 Diastolic blood pressure 76 mm[Hg] [facility] 11-11-2023 14:36-0400 Heart rate 92 /min [facility] 11-11-2023 14:36-0400 Respiratory rate 20 /min [facility] 11-11-2023 14:36-0400 Systolic blood pressure 104 mm[Hg] [facility] 10-10-2023 11:51-0400 Body height 170.18 cm [facility] 10-10-2023 11:51-0400 Body mass index (BMI) [Ratio] 38.2 kg/m2 [facility] 10-10-2023 11:51-0400 Body weight 110.67 kg [facility] 10-10-2023 11:51-0400 Diastolic blood pressure 81 mm[Hg] [facility] 10-10-2023 11:51-0400 Heart rate 78 /min [facility] 10-10-2023 11:51-0400 SaO2% (BldA) [Mass fraction] 96 % [facility] 10-10-2023 11:51-0400 Systolic blood pressure 128 mm[Hg] [facility] 07-09-2023 13:00-0500 Body height 170.18 cm Becky Romeo Other [employer] [facility] [employer] Other 07-09-2023 13:00-0500 Body mass index (BMI) [Ratio] 36.96 kg/m2 Becky Romeo Other [facility] Other 07-09-2023 13:00-0500 Body temperature 97.6 [degF] Becky Romeo Other [employer] [facility] [employer] Other 07-09-2023 13:00-0500 Body weight 107.05 kg Becky Romeo Other [facility] Other 07-09-2023 13:00-0500 Diastolic blood pressure 69 mm[Hg] Becky Romeo Other [facility] Other 07-09-2023 13:00-0500 Respiratory rate 20 /min Becky Romeo Other [facility] Other 07-09-2023 13:00-0500 SaO2% (BldA) [Mass fraction] 97 % Becky Romeo Other [facility] Other 07-09-2023 13:00-0500 Systolic blood pressure 109 mm[Hg] Becky Romeo Other [facility] Other 12-09-2022 11:05-0400 Body height 170.18 cm Lexy Kraft Other [facility] Other 12-09-2022 11:05-0400 Body mass index (BMI) [Ratio] 38.52 kg/m2 Lexy Menamond Other [facility] Other 12-09-2022 11:05-0400 Body temperature 97.8 [degF] Lexy Kraft Other [facility] Other 12-09-2022 11:05-0400 Body weight 111.59 kg Lexy Menamond Other [facility] Other 12-09-2022 11:05-0400 Respiratory rate 18 /min Lexy Menamond Other [facility] Other 12-09-2022 11:05-0400 SaO2% (BldA) [Mass fraction] 98 % Lexy Abena Other [facility] Other 08-12-2022 16:00-0500 Body height 170.18 cm Becky Romeo Other [facility] Other 08-12-2022 16:00-0500 Body mass index (BMI) [Ratio] 39.62 kg/m2 Becky Romeo Other [facility] Other 08-12-2022 16:00-0500 Body weight 114.76 kg Becky Romeo Other [facility] Other 08-12-2022 16:00-0500 Diastolic blood pressure 71 mm[Hg] Becky Romeo Other [facility] Other 08-12-2022 16:00-0500 Respiratory rate 16 /min Becky Romeo Other [facility] Other 08-12-2022 16:00-0500 SaO2% (BldA) [Mass fraction] 98 % Becky Romeo Other [facility] Other 08-12-2022 16:00-0500 Systolic blood pressure 107 mm[Hg] Becky Romeo Other [facility] Other 02-08-2022 12:00-0400 Body height 167.64 cm Joselin Wilkins Other [facility] Other 02-06-2022 18:45-0400 Body height 167.64 cm Lexy Kraft Other [facility] Other 02-06-2022 18:45-0400 Body mass index (BMI) [Ratio] 37.12 kg/m2 Lexy Kraft Other [facility] Other 02-06-2022 18:45-0400 Body temperature 97.3 [degF] Lexy Kraft Other [facility] Other 02-06-2022 18:45-0400 Body weight 104.33 kg Lexy Kraft Other [facility] Other 02-06-2022 18:45-0400 Respiratory rate 18 /min Lexy Kraft Other [facility] Other 02-06-2022 18:45-0400 SaO2% (BldA) [Mass fraction] 97 % Lexy Kraft Other [facility] Other Encounters Encounter Date Encounter Type Care Provider Facility Start: 03-15-2025 End: 03-15-2025 Treatment Ryan Brink [employer]CH[employer] [facility] Comment on above: Sacrococcygeal disor ders, not elsewhere classified (Primary Dx) Start: 03-15-2025 End: 03-15-2025 Bamboo flowsheet Ryan Brink [employer] [facility] Start: 03-15-2025 End: 03-15-2025 Bamboo flowsheet Ryan Brink [employer] [facility] Start: 03-02-2025 End: 03-02-2025 Treatment Ryan Brink [employer] [facility] Comment on above: Sacrococcygeal disor ders, not elsewhere classified (Primary Dx) Start: 03-02-2025 End: 03-02-2025 Bamboo flowsheet Ryan Brink [employer] [facility] Start: 03-02-2025 End: 03-02-2025 Bamboo flowsheet Ryan Brink [employer] [facility] Start: 02-28-2025 End: 02-28-2025 Treatment Delia Kwan PT [facility] Comment on above: Sacrococcygeal disor ders, not elsewhere classified (Primary Dx) Start: 02-28-2025 End: 02-28-2025 Bamboo flowsheet Delia Kwan PT [facility] Start: 02-28-2025 End: 02-28-2025 Bamboo flowsheet Delia Kwan PT [facility] Start: 02-23-2025 End: 02-23-2025 ambulatory [facility] Start: 02-21-2025 End: 02-21-2025 ambulatory Ty Fairbanks MD Facility:[facility] Start: 02-15-2025 End: 02-15-2025 ambulatory Kem Costa [employer] [facility] Start: 02-15-2025 End: 02-15-2025 Telephone encounter Destinee Britton MD Work Phone: [facility] Comment on above: Sacrococcygeal disor ders, not elsewhere classified (Primary Dx) Start: 02-14-2025 End: 02-14-2025 Office outpatient visit 15 minutes Ojvita L Floro CN Work Phone: [facility] Comment on above: PCOS (polycystic ova melvin syndrome) (Primary Dx); Encounter for initial prescription of contraceptive pills; Insulin resistance Start: 02-14-2025 End: 02-14-2025 Bamboo flowsheet Jovita L Floro CNM Work Phone: [facility] Start: 02-14-2025 End: 02-14-2025 Bamboo flowsheet Jovita L Floro CN Work Phone: [facility] Start: 02-01-2025 End: 02-01-2025 Treatment Kem Costa [employer] [facility] Comment on above: Sacrococcygeal disor ders, not elsewhere classified (Primary Dx) Start: 02-01-2025 End: 02-01-2025 Bamboo flowsheet Kem Costa [employer] [facility] Start: 02-01-2025 End: 02-01-2025 Bamboo flowsheet Kem Costa [employer] [facility] Start: 01-27-2025 End: 01-27-2025 Treatment Ofelia Blakely [employer] [facility] Comment on above: Sacrococcygeal disor ders, not elsewhere classified (Primary Dx) Start: 01-27-2025 End: 01-27-2025 Bamboo flowsheet Ofelia Blakely [employer]CH[employer] [facility] Start: 01-27-2025 End: 01-27-2025 Bamboo flowsheet Ofelia Blakely [employer] [facility] Start: 01-24-2025 End: 01-25-2025 Evaluation Delia Kwan PT [facility] Comment on above: Sacrococcygeal disor ders, not elsewhere classified (Primary Dx) Start: 01-24-2025 End: 01-24-2025 Bamboo flowsheet Delia Kwan PT [facility] Start: 01-24-2025 End: 01-24-2025 Bamboo flowsheet Delia Kwan PT [facility] Start: 01-20-2025 End: 01-20-2025 ambulatory [facility] Start: 01-11-2025 End: 01-11-2025 ambulatory Becky Romeo DO Work Phone: [facility] Work Phone: Start: 01-11-2025 End: 01-11-2025 Patient encounter procedure Feliz Musa MD -[facility] Work Phone: Start: 01-06-2025 End: 01-06-2025 ambulatory Becky Romeo DO Work Phone: [facility] Work Phone: Start: 01-06-2025 End: 01-06-2025 Patient encounter procedure Mack Zimmerman DO -[facility] Work Phone: Start: 01-05-2025 End: 01-05-2025 ambulatory Becky Romeo DO Facility:[facility] Start: 12-27-2024 End: 12-27-2024 ambulatory Ty Fairbanks MD Facility: [facility] Start: 12-16-2024 End: 12-16-2024 ambulatory CHAD Giordano [facility] Start: 12-03-2024 End: 12-03-2024 Telephone encounter Destinee Britton MD Work Phone: [facility] Start: 12-03-2024 End: 12-03-2024 Office outpatient visit 25 minutes Ness Montez CABLEMAN Work Phone: [facility] Comment on above: Nausea (Primary Dx); Pain of upper abdomen Start: 12-01-2024 Non-patient / Non-visit Lacey Morton PROCESS OPERATOR [facility] Work Phone: Start: 11-24-2024 End: 11-24-2024 Emergency department patient visit [facility] Comment on above: Acute exacerbation o f chronic low back pain (Primary Dx) Start: 11-11-2024 End: 11-11-2024 ambulatory CHAD Giordano [facility] Start: 10-14-2024 End: 10-14-2024 ambulatory CHAD Giordano [facility] Start: 09-17-2024 End: 09-17-2024 ambulatory NUBIA STEPHENS [facility] Start: 09-16-2024 End: 09-16-2024 ambulatory CHAD Giordano [facility] Start: 09-13-2024 End: 09-13-2024 [facility] Start: 08-30-2024 End: 08-30-2024 ambulatory [facility] Start: 08-26-2024 End: 08-26-2024 ambulatory CHAD Giordano [facility] Start: 08-16-2024 End: 08-16-2024 ambulatory Ty Fairbanks MD Facility: [facility] Start: 08-12-2024 End: 08-12-2024 ambulatory CHAD Pasquale [facility] Start: 08-10-2024 End: 08-10-2024 Office outpatient visit [...] patient visit Priyank Gaspar MD Work Phone: [facility] Comment on above: Acute exacerbation o f chronic low back pain (Primary Dx) Start: 07-20-2024 End: 07-20-2024 Emergency department patient visit Yoli Lal MD Work Phone: [facility] Comment on above: Strain of lumbar reg ion, initial encounter (Primary Dx); Abnormal computed tomography of lumbar spine Start: 07-15-2024 End: 07-15-2024 ambulatory CHAD Giordano [facility] Start: 06-25-2024 End: 06-25-2024 ambulatory CHAD Giordano [facility] Start: 06-02-2024 End: 07-16-2024 Refill Destinee Britton MD Work Phone: [facility] Comment on above: Encounter for initia l prescription of contraceptive pills Start: 05-28-2024 End: 05-28-2024 ambulatory NUBIA STEPHENS [facility] Start: 05-27-2024 End: 05-27-2024 ambulatory [facility] Start: 05-24-2024 End: 05-24-2024 Bamboo flowsheet [...] acne; Hirsutism Start: 04-22-2024 End: 04-22-2024 ambulatory [facility] Start: 03-25-2024 End: 03-25-2024 ambulatory [facility] Start: 11-11-2023 End: 11-11-2023 ambulatory [facility] Work Phone: Start: 11-11-2023 End: 11-11-2023 Patient encounter procedure [facility] Work Phone: Start: 10-10-2023 End: 10-10-2023 ambulatory [facility] Work Phone: Start: 10-10-2023 End: 10-10-2023 Patient encounter procedure [facility] Work Phone: Start: 07-09-2023 End: 07-09-2023 ambulatory Becky Romeo Other [facility] Other Start: 07-09-2023 Office outpatient vi sit 25 minutes Becky Romeo [facility] [facility] Start: 12-11-2022 End: 12-11-2022 ambulatory [address] Romeo Other [facility] Other Start: 12-11-2022 Telephone encounter Becky Romero i [facility] Start: 12-09-2022 Office outpatient vi sit 15 minutes Lexy Kraft [facility] Start: 12-09-2022 End: 12-09-2022 ambulatory PHYSICIAN NO [employer] Other Start: 12-09-2022 End: 12-09-2022 Patient encounter procedure PHYSICIAN NO [facility] Work Phone: Start: 09-27-2022 End: 09-27-2022 ambulatory Becky Romeo Other [facility] Other Start: 09-27-2022 Telephone encounter Becky Branarvin i [facility] Start: 08-14-2022 End: 08-14-2022 ambulatory Becky Romeo Facility:[facility] Start: 08-14-2022 End: 08-14-2022 ambulatory PHYSICIAN NO [facility] Work Phone: Start: 08-14-2022 End: 08-14-2022 Patient encounter procedure PHYSICIAN NO [facility] [place] Work Phone: Start: 08-13-2022 End: 08-13-2022 ambulatory Becky Pierrearvinyumiko Facility:[facility] Start: 08-13-2022 End: 08-13-2022 Patient encounter procedure PHYSICIAN NO [facility] [place] Start: 08-13-2022 End: 08-13-2022 ambulatory PHYSICIAN NO [facility] Work Phone: Start: 08-13-2022 Telephone encounter Becky Romero i [facility] Start: 08-12-2022 End: 08-12-2022 ambulatory Becky Ousmane Other [facility] Other Start: 08-12-2022 Encounter for genera l adult medical examination without abnormal findings Becky Romeo [facility] Start: 08-12-2022 Periodic preventive med est patient 18-39 yrs Becky Romeo [facility] Start: 05-20-2022 End: 05-20-2022 ambulatory Becky Ousmane Other [facility] Other Start: 05-20-2022 Telephone encounter Becky Romero i [facility] Start: 02-08-2022 End: 02-08-2022 ambulatory Becky Ousmane Other [facility] Other Start: 02-08-2022 Office outpatient vi sit 15 minutes Joselin Wilkins [facility] Start: 02-08-2022 Telephone encounter Becky Heather calderon [facility] Start: 02-06-2022 End: 02-06-2022 ambulatory Lexy Kraft Other [facility] Other Start: 02-06-2022 Office outpatient vi sit 15 minutes Lexy Kraft [facility] Start: 07-03-2021 End: 07-03-2021 ambulatory Becky Ousmane Other [facility] Other Start: 07-03-2021 Office outpatient vi sit 15 minutes Becky Ousmane [facility] [place] Start: 05-19-2020 End: 05-19-[address] ROGE THACKER Facility:[facility] Start: 05-16-2020 Encounter for other preprocedural examination [facility] Start: 05-13-2020 End: 05-14-2020 ambulatory [facility] Facility:[facility] Start: 05-11-2020 End: 05-12-2020 ambulatory [facility] Facility:[facility] Start: 05-11-2020 End: 05-12-2020 Encounter for other preprocedural examination [facility] Facility:[facility] Start: 03-23-2020 End: 03-24-[address] DESTINEE BRITTON Facility:[facility] Start: 02-29-2020 End: 03-01-2020 ambulatory [facility] Facility:[facility] Start: 03-30-2019 End: 03-30-2019 Patient encounter procedure Radha Aguilera [facility] Procedures Date Procedure Procedure Detail Performing Clinician Start: 12-03-2024 Urnls dip stick/tabl et rgnt non-auto w/o micrscp Ness Montez NP Work Phone: Start: 07-20-2024 Ct lumbar spine w/o contrast material Yoli Lal MD Work Phone: Start: 07-20-2024 Urinalysis microscop ic only Yoli Lal MD Work Phone: Start: 07-20-2024 End: 07-20-2024 Urnls dip stick/tablet rgnt auto w/o microscopy Yoli Lal MD Work Phone: Start: 04-22-2024 Follow-up visit Follow-up CHAD W ROSANA Start: 12-09-2022 Plain X-ray of left hand PHYSICIAN NO FAMILY Start: 12-09-2022 Plain X-ray of left wrist PHYSICIAN NO FAMILY Start: 08-13-2022 Plain chest X-ray PHYSI BALJIT NO FAMILY Start: 03-30-2019 X-ray of left ankle Donte linda Aguilera Plan of Treatment Date Care Activity Detail Author Start: 08-15-2025 End: 08-15-2025 Patient encounter procedure 08/15/2025 5:30 PM EST Office Visit BIANCA RAPP [address] [facility] [place] [address] Jovita Salas, WILLOW [address] [place] [facility] [place] [address] [facility] Start: 04-11-2025 End: 04-11-2025 ambulatory 04/11/2025 5:30 PM EDT Treatment [facility] [address] [place] [address] Delia Kwan, PT [facility] Start: 04-04-2025 End: 04-04-2025 ambulatory 04/04/2025 5:30 PM EDT Treatment [facility] [address] [place] [address] Delia Kwan, PT [facility] Start: 03-29-2025 End: 03-29-2025 ambulatory 03/29/2025 5:30 PM EDT Treatment [facility] [address] [place] [address] Ryan Barger, TECHNICIAN [employer] [facility] Start: 03-24-2025 End: 03-24-2025 ambulatory 03/24/2025 6:00 PM EDT Treatment [facility] [address] [place] [address] Ofelia Blakely, NATI [facility] Start: 03-21-2025 End: 03-21-2025 ambulatory 03/21/2025 1:00 PM EDT Treatment [facility] [address] [place] [address] Ryan Barger PTA [facility] Start: 03-15-2025 End: 03-15-2025 ambulatory 03/15/2025 5:30 PM EDT Treatment [facility] [address] [place] [address] Rayn Barger [employer]CH[employer] Arrived [facility] Comment on above: Arrived Start: 03-07-2025 Influenza vaccination Influenza Vacc ine (#1) [facility] Start: 03-02-2025 End: 03-02-2025 ambulatory 03/02/2025 5:30 PM EDT Treatment [facility] [address] [place] [address] Ryan Barger PTA [facility] Start: 02-28-2025 End: 02-28-2025 ambulatory 02/28/2025 6:00 PM EDT Treatment [facility] [address] [place] [address] Delia Kwan, PT [facility] Start: 02-24-2025 End: 02-24-2025 ambulatory 02/24/2025 6:00 PM EDT Treatment [facility] [address] [place] [address] Ofelia Blakely PTA [facility] Start: 02-15-2025 End: 02-15-2025 ambulatory 02/15/2025 6:00 PM EDT Treatment [facility] [address] [place] [address] Kem Costa TECHNICIAN [employer] [facility] Start: 02-14-2025 End: 02-14-2025 Patient encounter procedure [facility] Comment on above: Arrived Start: 02-08-2025 End: 02-08-2025 Patient encounter procedure 02/08/2025 4:00 PM EDT Office Visit [facility] [address] [place] [phone] Jovita Salas, CNM [address] [place] [address] [facility] Start: 02-01-2025 End: 02-01-2025 ambulatory [facility] Comment on above: Arrived Start: 01-27-2025 End: 01-27-2025 ambulatory [facility] Comment on above: Arrived Start: 01-24-2025 End: 01-24-2025 Evaluation 01/24/2025 6:00 PM EDT Evaluation [facility] [address] [place] [address] Delia Kwan, PT Sacrococcygeal disorders, not [...] EDT Office Visit [facility] [address] [place] [phone] Ness Montez NP [address] [place], [place] [id number] [facility] Start: 08-10-2024 End: 08-10-2024 [...] EST Office Visit [facility] [address] [place] [phone] Jovita Salas CNM [address] [place] [address] Arrived [facility] Comment on above: Arrived Start: 05-10-2024 End: 05-10-2025 THINPREP IMAGING PAP AND HPV DNA REFLEX HPV 16,18 THINPREP IMAGING PAP AND HPV DNA REFLEX HPV 16,18 Pathology and Cytology Routine Screening for cervical cancer Expected: 05/10/2024 (Approximate), Expires: 05/10/2025 [facility] Work Phone: Comment on above: Expected: 05/10/2024 (Approximate), Expires: 05/10/2025 Start: 03-07-2024 Influenza vaccination Influenza Vacc ine (#1) [facility] Start: 05-19-2023 DTaP/Tdap/Td vaccine (7 - Td or Tdap) DTaP/Tdap/Td vaccine (7 - Td or Tdap) [facility] Start: 08-14-2022 [facility] Start: 2021 Screening for malign ant neoplasm of cervix Pap smear [facility] Start: 2018 Hepatitis C screening Hepatitis C sc reen [facility] Start: 2016 Screening for Chlamy rafael trachomatis Chlamydia/GC screen [facility] Start: 2015 HIV screening HIV screen [facility] Start: 2015 HPV vaccine (1 - 3-d ose series) HPV vaccine (1 - 3-dose series) [facility] Start: 2012 Depression Screen Depression Screen [facility] CBC panel - Blood by Automated count CBC Lab Routine PCOS (polycystic ovarian syndrome) Ordered: 05/10/2024 [facility] Comment on above: Ordered: 05/10/2024 Glucose measurement estimated from glycated hemoglobin [facility] Hemoglobin A1c/Hemoglobin.total in Blood [facility] Hemoglobin A1c/Hemoglobin.total in Blood Hemoglobin A1c Lab Routine PCOS (polycystic ovarian syndrome) Ordered: 05/10/2024 [facility] Comment on above: Ordered: 05/10/2024 Immunizations Immunization Date Immunization Notes Care Provider Fa cility 04-29-2024 SARS-COV-2 (COVID-19 ) vaccine, mRNA, spike protein, LNP, PF, anuj-sucrose, 30 mcg/0.3 mL Destinee Britton MD Work Phone: [facility] 04-29-2024 Seasonal, trivalent, recombinant, injectable influenza vaccine, preservative free Destinee Britton MD Work Phone: [facility] 04-29-2024 influenza virus vacc ine, unspecified formulation Delia Kwan PT [facility] 07-10-2019 Influenza, injectabl e, Madin [place] Canine Kidney, preservative free, quadrivalent Destinee Britton MD Work Phone: [facility] 07-10-2019 influenza, seasonal, injectable Becky Romeo Other [facility] 07-10-2019 influenza virus vacc ine, unspecified formulation Jovita Salas ALEJANDRA Work Phone: [facility] 07-17-2018 Influenza, injectabl e, Madin [place] Canine Kidney, preservative free, quadrivalent Destinee Britton MD Work Phone: [facility] 03-02-2018 meningococcal polysaccharide (groups A, C, Y and W-135) diphtheria toxoid conjugate vaccine (MCV4P) Becky Romeo Other [facility] 05-19-2013 meningococcal polysaccharide (groups A, C, Y and W-135) diphtheria toxoid conjugate vaccine (MCV4P) Destinee Britton MD Work Phone: [facility] 05-19-2013 tetanus toxoid, redu latrice diphtheria toxoid, and acellular pertussis vaccine, adsorbed Destinee Britton MD Work Phone: [facility] 05-19-2013 varicella virus vaccine Destinee Britton MD Work Phone: [facility] 04-03-2006 diphtheria, tetanus toxoids and acellular pertussis vaccine, unspecified formulation Destinee Britton MD Work Phone: [facility] 04-03-2006 hepatitis B vaccine, pediatric or pediatric/adolescent dosage Destinee Britton MD Work Phone: [facility] 04-03-2006 measles, mumps and rubella virus vaccine Destinee Britton MD Work Phone: [facility] 04-03-2006 poliovirus vaccine, unspecified formulation Destinee Britton MD Work Phone: [facility] 04-03-2006 varicella virus vaccine Destinee Britton MD Work Phone: [facility] 03-03-2006 DTaP-hepatitis B and poliovirus vaccine Destinee Britton MD Work Phone: [facility] 03-03-2006 measles, mumps and rubella virus vaccine Destinee Britton MD Work Phone: [facility] 12-23-2001 measles, mumps and rubella virus vaccine Destinee Britton MD Work Phone: [facility] 09-17-2001 diphtheria, tetanus toxoids and acellular pertussis vaccine, unspecified formulation Destinee Britton MD Work Phone: [facility] 09-17-2001 haemophilus influenz ae type b vaccine, conjugate unspecified formulation Destinee Britton MD Work Phone: [facility] 2000 diphtheria, tetanus toxoids and acellular pertussis vaccine, unspecified formulation Destinee Britton MD Work Phone: [facility] 2000 haemophilus influenz ae type b vaccine, conjugate unspecified formulation Destinee Britton MD Work Phone: [facility] 2000 hepatitis B vaccine, pediatric or pediatric/adolescent dosage Destinee Britton MD Work Phone: [facility] 2000 poliovirus vaccine, unspecified formulation Destinee Britton MD Work Phone: [facility] 2000 haemophilus influenz ae type b vaccine, conjugate unspecified formulation Destinee Britton MD Work Phone: [facility] 2000 diphtheria, tetanus toxoids and acellular pertussis vaccine, unspecified formulation Destinee Britton MD Work Phone: [facility] 2000 poliovirus vaccine, unspecified formulation Destinee Britton MD Work Phone: [facility] 2000 diphtheria, tetanus toxoids and acellular pertussis vaccine, unspecified formulation Destinee Britton MD Work Phone: [facility] 2000 haemophilus influenz ae type b vaccine, conjugate unspecified formulation Destinee Britton MD Work Phone: [facility] 2000 hepatitis B vaccine, pediatric or pediatric/adolescent dosage Destinee Britton MD Work Phone: [facility] 2000 poliovirus vaccine, unspecified formulation Destinee Britton MD Work Phone: [facility] 2000 hepatitis B vaccine, pediatric or pediatric/adolescent dosage Destinee Britton MD Work Phone: [facility] Healthcare Payers Date Payer Category Payer Unknown 2024 Unknown [id number] 2022 [facility] [id number] 2022 Self-pay [id number] 2022 [facility] 1.2.8 [id number] 15 2000 Unknown [id number] 2.16.84 0.1.767369.3.579.2.593 2000 Unknown [id number] 2.16.84 0.1.482518.3.579.2.593 2000 Unknown [id number] 2.16.84 0.1.986671.3.579.2.593 2000 Unknown [id number] 2.16.84 0.1.257128.3.579.2.593 2000 Unknown [id number] 2.16.84 0.1.340721.3.579.2.593 2000 Unknown [id number] 2.16.8 40.1.960944.3.579.2.173 2000 Unknown [id number] 2.16.8 40.1.787388.3.579.2.173 2000 Unknown [id number] 2.16.8 40.1.329488.3.579.2.173 2000 Unknown [id number] 2.16. 840.1.526700.3.579.2.128 2000 Unknown [id number] 2.16. 840.1.124180.3.579.2.1285 2000 Unknown [id number] 2.16. 840.1.129357.3.579.2.1285 2000 Unknown [id number] 2.16. 840.1.677915.3.579.2.1285 2000 Unknown [id number] 2.16. 840.1.117904.3.579.2.1285 2000 Unknown [id number] 2.16. 840.1.420617.3.579.2.1285 2000 Unknown [id number] 2.16. 840.1.173537.3.579.2.1285 2000 Unknown [id number] 2.16. 840.1.333337.3.579.2.1285 2000 Unknown [id number] 2.16. 840.1.654247.3.579.2.1285 2000 Unknown [id number] 2.16. 840.1.008417.3.579.2.1285 2000 Unknown [id number] 2.16.8 40.1.144638.3.579.2.1285 2000 Unknown [id number] 2.16.8 40.1.434591.3.579.2.1285 2000 Unknown [id number] 2.16.8 40.1.696854.3.579.2.1285 2000 Unknown [id number] 2.16.8 40.1.071329.3.579.2.1285 2000 Unknown [id number] 2.16.8 40.1.799132.3.579.2.1285 2000 Unknown [id number] 2.16. 840.1.354414.3.579.2.196 2000 Unknown [id number] 2.16. 840.1.557280.3.579.2.196 2000 Unknown [id number] 2.16. 840.1.380975.3.579.2.196 2000 Unknown [id number] 2.16. 840.1.835352.3.579.2.196 2000 Unknown [id number] 2.16. 840.1.106439.3.579.2.196 2000 Unknown [id number] 2.16. 840.1.044899.3.579.2.196 1959 Unknown [id number] 2.16.8 40.1.827020.3.579.2.531 Unknown [id number] 2.16.8 40.1.393563.3.579.2.531 Unknown [id number] 2.16.8 40.1.360650.3.579.2.531 Social History Date Type Detail Facility Tobacco smoking stat [facility] Unknown if ever smoked [facility] Start: 2000 Sex Assigned At Female [facility] Start: 12-04-2023 End: 05-20-2024 Sex Assigned At [facility] Start: 10-10-2023 Tobacco smoking status NDIS Unknown if ever smoked [facility] Start: 06-26-2023 End: 05-20-2024 Tobacco smoking status NDIS Never smoked tobacco [facility] Start: 06-26-2023 End: 05-20-2024 Tobacco use and exposure Smokeless tobacco non-user [facility] Start: 12-04-2023 End: 05-10-2024 Alcoholic beverage intake Current drinker of alcohol (finding) [facility] Start: 12-04-2023 End: 05-20-2024 History of Social function [facility] Start: 06-11-2023 Alcohol Comment caffeine: 1-2 cups per day [facility] Start: 06-25-2023 Gender identity Identifies as female gender (finding) [facility] Start: 05-24-2024 End: 12-03-2024 Alcoholic beverage intake Ex-drinker (finding) [facility] How often do you nee d to have someone help you when you read instructions, pamphlets, or other written material from your doctor or pharmacy [SILS] Never [facility] Do you belong to any clubs or organizations such as mosque groups, unions, fraternal or athletic groups, or [...] Start: 07-20-2024 Tobacco smoking status [facility] Ex-smoker [employer] [facility] History of tobacco use Current smoker [employer] [facility] History of tobacco use Cigarette Smoker B [facility] Start: 2000 Sex assigned at Not on file [employer] [facility] Start: 08-16-2012 Sex Female (finding) [facility] How often do you nee d to [...] to be instructed in home exercise program. 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 Date: documented in this encounter [facility] 02-15-2025 Telephone encount er Note Jackson left at 9:13 am Pa, this is Jenn from [facility] in [place]. I am calling about a mutual patient. Edwige Leonardo. Date of is 2000. I am calling about the spring [employer] or the control you guys sent over the quantity on the prescription. They only come in packs at 28. So we need a quantity on that prescription to say 84 with 3 refills. If you could please either send over any prescription with the correct quantity or give us a callback that would be great. Our phone number here is [phone]. Again, this is Jenn from [facility] coming from a Main for Edwige Evans move 2000 for the spring tech or generic, nor just with [employer], dial the control, calling the change quantity to 84 because they only come in back to 28 and we can not open the pack again, phone number [phone] if you want to call for change or send over a brand new prescription with the correct quantity of 84? Thank you. [facility] 02-15-2025 Miscellaneous Notes Formattin g of this note might be different from the original. Vm left at 9:13 am Hi, this is Jenn from [facility] in [place]. I am calling about a mutual patient. [...] be great. Our phone number here is [phone]. Again, this is Jenn from [facility] coming from a Main for Edwige Evans move 2000 for the spring tech or generic, nor just with [employer], dial the control, calling the change quantity to 84 because they only come in back to 28 and we can not open the pack again, phone number [phone] if you want to call for change or send over a brand new prescription with the correct quantity of 84? Thank you. documented in this encounter [facility] 02-14-2025 History of Presen t illness Narrative PROBLEM VISIT Edwige Patterson is 24 y.o. 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 Date: documented in this encounter [facility] 01-06-2025 Evaluation note Diagnosis Onset Date Resolution Paresthesias acute January 06 2:55pm Pain of left sacroiliac joint acute January 11, 2025 9 :14am Pain of right sacroiliac joint acute January 11, 2025 9:14am Paresthesias acute January 11 9:14am [facility] Work Phone: 1(641) 307-489205-30-2025 History of Present illness Narrative* Ness Montez [...] prompting another visit to the ER in [place]. A diagnosis of viral gastroenteritis was made [...] HPI Flowsheet Row Documentation from 11/30/2024 in [facility] Information ED, Hospital or Snf Facility Discharge? ED Patient has been contacted within 2 days of being seen in the ED Yes Diagnosis Viral Infection Discharge Date 11/28/24 Discharged To: Home Setting Discharge Hospital [facility] Engagement Call Start Time 1528 Admission Date [...] fluid intake and abstain from smoking marijuana. Ghnf-jjs-udhamch MiraLAX can be used if constipation persists. [...] or other abnormalities. - Advised to use zjzf-cvh-xolwtjh MiraLAX if constipation persists and to increase fluid intake. - Blood work will be done to assess kidney and liver function. No follow-ups on file. documented in this encounterProgress West [id number] Hospital Discharge instructions* Discharge Instructions* Alicia Dunn [...] sent through Care Everywhere. * Back Pain (Congolese) [facility] History of Present illness Narrative* Jovita Salas CNM - 08/10/2024 4:00 PM EST PROBLEM VISIT Edwige Patterson is 24 y.o. 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 * Back [facility] (Congolese) [facility]* Discharge Instructions* Yoli [...] through Care Everywhere. * Strain or Sprain (Congolese) [facility] Tele[facility] encounter Note* Telephone Encounter - Bess Lomeli - 06/02/2024 1:06 PM EST Pt called and left a vm at 12:41 pm today She said she has been waiting for her BC to be called over to [employer] but they haven't received anything. She asked if that can please be sent over. [facility] [id number] Miscellaneous Notes* [facility]24 1:06 PM EST Pt called and left a vm at 12:41 pm today She said she has been waiting for her BC to be called over to [employer] but they haven't received anything. She asked if that can please be sent over. documented in this encounterProgress West [id number] History of Present illness Narrative* Destinee Britton [...] should contact the clinic. documented in this encounterProgress West [id number] History of Present illness Narrative* Destinee Britton [...] child. SOCIAL HISTORY She works at the [employer]. She is getting her master's degree in [...] bite block during sleep. documented in this encounterProgress West [id number] History of Present illness Narrative* ALEJANDRA Cruz - 05/10/2024 2:00 PM EST YEARLY HPI: This is a established patient. Chief Complaint Patient presents with Gynecologic Exam Here for annual exam. 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 [facility] 06-05-2023 Evaluation note* Encounter Date Diagnosis [...] no improvement in [address] [facility] Other 02-06-2023 Evaluation note* Encounter Date Diagnosis [...] Screening for deficiency anemia (ICD-10 - Z13.0) [facility] 08-05-2022 Evaluation note* Encounter Date Diagnosis [...] understanding and is agreeable to treatment plan. [facility] 08-03-2022 Evaluation note* Encounter Date Diagnosis [...] no improvement in [address] [facility] Other 12-28-2021 Evaluation note* Encounter Date Diagnosis Assessment Notes Treatment Notes Treatment Clinical Notes Jun, Exposure to COVID-19 virus (ICD-10 - Z20.822) Jun, COVID-19 (ICD-10 - U07.1) Patient's rapid test is positive for Covid-19. She is given instructions for quarantine and supportive care. Call immediately for change/worsening or with questions/concerns. [facility] Other 11-13-2020 NotePROCEDURE: XR ANKLE RT MIN 3 VIEWS COMPARISON: 05/19/2020 intraprocedural, 04/02/2020 HISTORY: Postoperative care FINDINGS: BONES:No fracture, acute abnormality, or significant arthropathy. SOFT TISSUES:Post procedural soft tissue swelling, subcutaneous air and lateral surgical elaina EFFUSION:None visible. OTHER: Negative. IMPRESSION: Postprocedural changes Electronically authenticated by: ROGE THACKER Date: 2020-05-19 14:02[facility]11-13-2020 NotePROCEDURE: XR ANKLE RT 2V COMPARISON: [...] authenticated by: ROGE THACKER Date: 2020-05-19 14:00[id number] History general Narrative - Reported* Type Description Date Medical History Chronic back pain Medical History Hx of concussion Medical History acne Medical History chronic depression Surgical History ankle reconstruction- right 2019 [facility] 09-17-2020 NotePROCEDURE: XR FOOT RT MIN 3 VIEWS COMPARISON: 02/29/2020 HISTORY: Pain in right foot FINDINGS: BONES:Stable intra-articular transverse fracture base of the fifth metatarsal. No acute fracture or dislocation SOFT TISSUES:Negative. No visible soft tissue swelling. EFFUSION:None visible. OTHER: Negative. IMPRESSION: Stable healing intra-articular transverse fracture base of the fifth metatarsal Electronically authenticated by: ROGE THACKER Date: 2020-03-23 10:22 [facility] [id number] NotePROCEDURE: XR ANKLE RT MIN 3 VIEWS, [...] authenticated by: ROGE THACKER Date: 2020-02-29 12:57[facility] [id number] NotePROCEDURE: XR ANKLE RT MIN 3 VIEWS, [...] authenticated by: ROGE THACKER Date: 2020-02-29 12:57[facility] CenterEvaluation noteNo InformationNortStudyMax Other Evaluation noteNo assessment information available [facility] Work Phone: evaluation note* Diagnosis Onset Date Resolution Status Bilateral acute otitis media resolved [facility] Work Phone: evaluation note* Diagnosis PCOS (polycystic ovarian syndrome)- Primary Polycystic ovaries Normal gynecologic examination Screening for cervical cancer Screening for malignant neoplasm of the cervix Other acne Hirsutism documented in this encounter [facility]* Diagnosis Candidiasis- Primary Acute nausea with nonbilious vomiting documented in this encounter [facility]* Diagnosis Candidiasis- Primary documented in this encounter [facility] HealthcareEvaluation note* Diagnosis Encounter for initial prescription of contraceptive pills documented in this encounter [facility]* Diagnosis Strain of lumbar region, initial encounter- Primary Abnormal computed tomography of lumbar spine documented [facility] this encounter [facility] note* Diagnosis Acute exacerbation of chronic low back pain- Primary [facility] this [facility]* Diagnosis Acute exacerbation of chronic low back pain- Primary documented in this encounter [facility] note* Diagnosis Nausea- Primary Nausea alone Pain of upper abdomen [facility]* Diagnosis Unwanted fertility- Primary PCOS (polycystic ovarian syndrome) Polycystic ovaries documented in this encounter [facility] HealthcareEvaluation note* Diagnosis Onset Date Resolution Status Admit Date Paresthesias acute January 06 2:55pm [facility] Work Phone: evaluation note* Diagnosis Sacrococcygeal disorders, not elsewhere classified- [...] History Hx of concussion Medical History acne [facility] [employer] Other History general Narrative - Reported* Type Description Date Medical History Chronic back pain Medical History Hx of concussion Medical History acne Medical History chronic depression [facility] [employer] Other Reason for referral (narrative)No reason for referral information availableWestern [facility] Work Phone: Reason for visit Narrative* Rehabilitation - Outpatient (Routine) - Authorized Specialty Diagnoses / Procedures Referred By Donya t Referred To Contact Physical Therapy Diagnoses Sacrococcygeal disorders, not elsewhere classified Procedures [place] PHYSICAL THERAPY EVALUATION LOW COMPLEX 20 MINS [place] OFFICE/OUTPATIENT NEW HIGH MDM 60 MINUTES Feliz Musa MD [address] [place] [address], [address] [address] Phone: tel: fax: Delia Kwan PT Referral ID Status Reason Start Date Expiration Date V isits Requested Visits Authorized [id number] Authorized 01/24/2025 03/24/2025 6 6 [facility] HealthcareReason for [facility] Narrative* Rehabilitation - Outpatient (Routine) - Closed Specialty Diagnoses / Procedures Referred By oDnya t Referred To Contact Physical Therapy Diagnoses Sacrococcygeal disorders, not elsewhere classified Procedures [place] PHYSICAL THERAPY EVALUATION LOW COMPLEX 20 MINS [place] OFFICE/OUTPATIENT NEW HIGH MDM 60 MINUTES Feliz Musa MD [address] [place] [address], [address] [address] Phone: tel: fax: Delia Kwan, PT Referral ID Status Reason Start Date Expiration Date Visits Re quested Visits Authorized [id number] Closed 01/24/2025 03/24/2025 6 6 [facility] HealthcareReason for [facility] Narrative* Rehabilitation - Outpatient (Routine) - Authorized Specialty Diagnoses / Procedures Referred By Contac t Referred To Contact Physical Therapy Diagnoses Sacrococcygeal disorders, not elsewhere classified Procedures MN THER PX 1/> AREAS EACH 15 MIN NEUROMUSC REEDUCA MN MANUAL THERAPY TQS 1/> REGIONS EACH 15 MINUTES MN THERAPEUTIC PX 1/> AREAS EACH 15 MIN EXERCISES PHYS/OCC THERAPY SS Feliz Musa MD [address] [place] [address], [address] [place] [address] Phone: tel: fax: Delia Kwan PT Referral ID Status Reason Start Date Expiration Date V isits Requested Visits Authorized [id number] Authorized 03/09/2025 05/07/2025 6 6 [facility] Advance Directives Advance Directive Response Recorded [...] 2024 6:50a m EMG BLE per Jazmin Yanez [facility] January 06 2:55pm Reason for Visit Admit Date Paresthesias January 06, 2025 2:55p m Chief Complaint Admit Date Amb Documentation December 01, 2024 6:50a m EMG BLE per Jazmin Yanez [facility] January 06 2:55pm low back pain January [...] and content) DATE CREATED AUTHOR 01/04/2021 [facility] DATE CREATED AUTHOR AUTHOR'S ORGANIZ ATION 06/27/2021 [facility] dical Specialist DATE CREATED AUTHOR AUTHOR'S ORGANIZ ATION 12/16/2022 [facility] DATE CREATED AUTHOR AUTHOR'S ORGANIZ ATION 12/01/2024 [facility] DATE CREATED AUTHOR AUTHOR'S ORGANIZ ATION 02/25/2025 [facility] DATE CREATED AUTHOR AUTHOR'S ORGANIZ ATION 02/26/2025 [facility] REASON FOR VISIT (unrecogniz ed section [...] since 2016. MRI completed on Friday in [place]. Reason Comments Back Pain Bilateral lower back [...] Provider Active Start: December 01, 2024 Lacey Praveen , PROCESS OPERATOR Attending Provider Active Star t: December 01, [...] Dates Becky Romeo DO Primary Care Prov ider, Attending Provider Active Start: November 11, 2023 End: November 11, 2023 Maintenance Associate Relationship Specialty Start Date End Date Destinee Britton MD [address] [facility] [place] [address] PCP - General Family Medicine 11/12/22 Maintenance Associate Relationship Specialty Start Date End Date Destinee Britton MD [address] [facility] [place] [address] PCP - General Family Medicine 11/12/22 Maintenance Associate Relationship Specialty Start Date End Date Destinee Britton MD [address] [facility] [place] [address] PCP - General Family Medicine 11/12/22 Maintenance Associate Relationship Specialty Start Date End Date Destinee Britton MD [address] [facility] [place] [address] PCP - General Family Medicine 11/12/22 Maintenance Associate Relationship Specialty Start Date End Date Destinee Britton MD [address] [place] [address] PCP - General Family Medicine 11/12/22 Maintenance Associate Relationship Specialty Start Date End Date Becky Romeo DO NPI: [address] [place] [address];[address] [place] [address] PCP - General Family Medicine 07/20/24 Maintenance Associate Relationship Specialty Start Date End Date Becky Romeo DO NPI: [address] [place] [address];[address] [place] [address] PCP - General Family Medicine 07/20/24 Maintenance Associate Relationship Specialty Start Date End Date Becky Romeo DO NPI: [address] [place] [address];[address] [place] [address] PCP - General Family Medicine 07/20/24 Maintenance Associate Relationship Specialty Start Date End Date Destinee Britton MD [address] [place] [address] PCP - General Family Medicine 11/12/22 Maintenance Associate Relationship Specialty Start Date End Date Destinee Britton MD [address] [place] [address] PCP - General Family Medicine 11/12/22 Maintenance Associate Relationship Specialty Start Date End Date Destinee Britton MD [address] [place] [address] PCP - General Family Medicine 11/12/22 Team Status: Inactive Member Role Status Dates Becky Romeo DO Primary Care Provider Active Start: January 11, 2025 End: January 11, 2025 Feliz Musa MD Attending Provider Active Star t: January 11, 2025 End: January 11, 2025 Maintenance Associate Relationship Specialty Start Date End Date Destinee Britton MD [address] [place] [address] PCP - General Family Medicine 11/12/22 Maintenance Associate Relationship Specialty Start Date End Date Destinee Britton MD [address] [place] [address] PCP - General Family Medicine 11/12/22 Maintenance Associate Relationship Specialty Start Date End Date Destinee Britton MD [address] [place] [address] PCP - General Family Medicine 11/12/22 Maintenance Associate Relationship Specialty Start Date End Date Destinee Britton MD [address] [place] [address] PCP - General Family Medicine 11/12/22 Maintenance Associate Relationship Specialty Start Date End Date Destinee Britton MD [address] [place] [address] PCP - General Family Medicine 11/12/22 Maintenance Associate Relationship Specialty Start Date End Date Destinee Britton MD [address] [place] [address] PCP - General Family Medicine 11/12/22 Maintenance Associate Relationship Specialty Start Date End Date Destinee Britton MD [address] [place] [address] PCP - General Family Medicine 11/12/22 Maintenance Associate Relationship Specialty Start Date End Date Destinee Britton MD [address] [place] [address] PCP - General Family Medicine 11/12/22 Maintenance Associate Relationship Specialty Start Date End Date Destinee Britton MD [address] [facility] [place] [address] PCP - General Family Medicine 11/12/22 Maintenance Associate Relationship Specialty Start Date End Date Destinee Britton MD [address] [facility] [place] [address] PCP - General Family Medicine 11/12/22 Maintenance Associate Relationship Specialty Start Date End Date Destinee Britton MD [address] [facility] [place] [address] PCP - General Family Medicine 11/12/22 Maintenance Associate Relationship Specialty Start Date End Date Destinee Britton MD [address] [facility] [place] [address] PCP - General Family Medicine 11/12/22 Goals [...] tablet Follow package insructions. 1 kit 11/24/2024 Scheduled Active and Recently Administ ered Medications (unrecognized section and content) Medication Order 07/18/2024 07/19/2024 07/20/2024 cyclobenzaprine (FLEXERIL) tablet 10 mg (COMPLETED) 10 mg, Oral, ONCE, 1 dose, On e 07/20/24 at 1615 1615 (Given - Provid er: Ruth Cobos RN) dexAMETHasone (DECADRON) injection 10 mg (COMPLETED) 10 mg, IntraVENous, ONCE, On e 07/20/24 at 1615, For 1 dose 161 (Given - Provid er: Ruth Cobos RN) ketorolac (TORADOL) injection 15 mg (COMPLETED) 15 mg, IntraVENous, ONCE, 1 dose, On 07/20/24 at 1615, Do not administer for more [...] hour of each other unless specifically ordered. 180 (Given - Provid er: Ruth Cobos RN) ondansetron (ZOFRAN) injection 4 mg (COMPLETED) 4 mg, IntraVENous, ONCE, 1 dose, On 07/20/24 at 1800 180 (Given - Provid er: Ruth Cobos RN) [...] BE BASED ON THE PRIMARY CLINICAL RECORDS. [facility] [facility]. provides no warranty or guarantee of the accuracy or completeness of information in this document.
--- NOTE | 2025-03-16 14:19 | P.CN_ITS ---
Consult Note: HPI Data of Consult Patient: known to practice within the last 3 years Requesting Physician: Jazmin Yanez NP Primary Care Provider: Vidal Romeo, DO Consult Narrative Reason for consult: f/u Narrative: Edwige tellez pleasant 24 year old female presents for evaluation of chronic low back pain secondary to bulging disc, lumbar ddd, and lumbar spondylosis. continues to utilize heat, ice, baclofen. cannot take tylenol due to elevated liver enzymes. pain today 6/10 increasing to 8/10 in low back. increased pain standing, walking, sitting, with activity, and sleep. finds benefit to PRN chiropractor care. pt was evaluated in the ER this week due to severe low back pain, has not started hydrocodone-ibuprofen from the ER yet, plans to start today. cc:: CC: Jazmin Yanez NP Review of Systems ROS Musculoskeletal Reports: back pain and joint pain PFSH [facility] Medical History (Updated 03/15/25 @ 11:19 by Ras Singh MD) Low back pain ?M54.50 - Low back pain, unspecified (ICD-10) Depression ?F32.A - Depression, unspecified (ICD-10) PCOS (polycystic ovarian syndrome) ?E28.2 - Polycystic ovarian syndrome (ICD-10) Surgical History History of ankle surgery ?Z98.890 - Other specified postprocedural states (ICD-10) Social History Little interest or pleasure in doing things: not at all Feeling down, depressed, or hopeless: not at all Meds Home Medications and Allergies Home Medications ?Medication ?Instructions ?Recorded ?Confirmed ?Type bupropion HCl 300 mg 24 hr tablet, 300 mg PO DAILY 04/3002/21/25 History extended release etodolac 400 mg tablet (Lodine) 400 mg PO BID 08/16/24 02/21/25 History norgestimate 0.18 mg/0.215mg/0.25 1 tab PO DAILY 08/1602/21/25 History mg-ethinyl estradiol 0.025 mg tablet (Nyw-Gm-Xbokjs) ondansetron 4 mg disintegrating 4 mg PO Q6H PRN nausea and 11/28/24 02/21/25 Rx tablet vomiting #20 tabs baclofen 10 mg tablet 10 mg PO Q8H PRN spasms 12/0602/21/25 History hydrocodone 7.5 mg-ibuprofen 200 1 tab PO Q6H PRN pain 5 days #20 03/15/25 Rx mg tablet tabs Allergies Allergy/AdvReac Type Severity Reaction Status Date / Time No Known Drug Allergies Allergy Verified 03/15/25 10:57 Exam Constitutional Documenting provider has reviewed patient's vital signs: yes Common normals: no apparent distress, oriented x3, healthy appearing, alert and well nourished General appearance: cooperative HENMT Common normals: normocephalic, hearing grossly normal bilaterally and moist oral mucous membranes Head and scalp: normocephalic Eye Common normals: PERRL Pupil: PERRL Neck & C-Spine Common normals: full ROM General: normal visual inspection Chest Common normals: inspection of chest normal Respiratory Common normals: normal respiratory effort, no retractions and no use of accessory muscles Back & Pelvis Lumbar spine/lower back: ROM limited, pain with ROM and lumbar spinal tenderness Other: strength 5/5 in BLE positive L4-S1 facet loading and tenderness Neuro Common normals: oriented x3 Sensorium/orientation: alert Psych Common normals: mental status grossly normal, thought process normal, cooperative, affect normal, speech normal and activity/motor behavior normal Speech: normal speech Thought process: normal thought process Results Additional Findings Additional findings: If on a controlled substance or opioids, I have checked an [place]AR[place] report on this patient and there are no aberrancies noted in the prescribing history.??If on a controlled substance or opioid a drug screen was completed and reviewed within the last year, and if there has not been a drug screen completed we ordered one today to monitor higher risk, state monitored pain medication use. As part of providing excellent, safe, comprehensive care, the following was completed at our patient's visit: 1. A medication reconciliation and review to ensure accurate knowledge of current/active medications, including asking our patients to inform us about any xgrr-hsa-rvplvhn medications or herbal remedies/nutritional supplements/alternative remedies. 2. A review to specifically ensure our patients have had annual screening for screening for depression, screening for tobacco use, and screening for unhealthy alcohol use. For concerning screenings had a discussion with the patient, provided patient education, and recommended follow-up with primary care provider when appropriate. If patient noted with a risk of falling, they received education on strength, gait, and balance training to prevent future risk of fa lling. Portions of this note may have been carried over from the previous visit and updated as appropriate. Please note this office utilizes paper charting in addition to the electronic medical record. A list of current medications, vitals, and PMH is available there as the clinical staff outside of myself do not have access to [employer] charting during the clinic day operations. As part of providing quality comprehensive care the current medications, vitals, and PMH were reviewed in the paper chart. Assessment and Plan Assessment and Plan (1) Lumbar spondylosis: Assessment and Plan: The patient has had over 3 months of moderate to severe low back pain with functional impairment and inadequate response to conservative care including NSAIDS (unless there are contraindication such as concurrent blood thinners), multiple oral or topical pain medications, and home exercise program/physical therapy.? Patient has completed >6 weeks of guided home exercise program and/or formal physical therapy program without relief of their symptoms.? The Oswestry Disability Index was completed, and the patient scored a 50%.?? ?The procedure will be completed with fluoroscopic guidance.? (2) Myalgia, other site: (3) Lumbar stenosis with neurogenic claudication: Plan bilateral L4-5 L5-S1 mbb x2 in consideration of RFA for facet mediated low back pain continue PT and dry needling/massage, finding mild benefit dc baclofen, start methocarbamol 500-1000mg BID prn pain/spasms continue f/u with NS as planned, no upcoming appointments at this time. plan to refer back if pt fails MBB f/u after each injection
== END 2025-03-16 13:47 | disposition home or self-care (01) ==
LOC: PM 13:46
PROVIDERS: PCP Student in an Organized Health Care Education/Training Program; Visit Provider Nurse Practitioner
DX: M47.816 Spondylosis without myelopathy or radiculopathy, lumbar region (principal); M79.18 Myalgia, other site; M48.062 Spinal stenosis, lumbar region with neurogenic claudication
CPT/HCPCS: G0463

== ENCOUNTER 2025-03-21 09:57 | Day surgery (SDC) | payer BC, SELFPAY ==
--- OUTSIDE RECORDS SUMMARY | 2024-08-03 07:45 | XMS_ITS ---
Author Organization [facility] Address [address] [place] [address] Care Team Providers Care Mammography Supervisor Name Role Phone Nancy Delcid Unavailable [phone] REASON FOR VISIT Lumbar radiculopathy Encounters Encounter Location Date Provider Diagnosis [facility] [address] [place] [address] 08/03/2024 Inherman xxTavon Lumbar radiculopathy M54.16 Assessments Encounter Date Diagnosis (ICD Code) Assessment Notes Treatment Notes Treatment Clinical Notes Section Notes 08/03/2024 Lumbar radiculopathy (ICD-10 - M54.16) Plan Of Treatment Next Appt Details Follow Up: SAME DAY, Reason: Progress Notes * ELADIA SIERRADOB:1999 (24 yo F)Acc No.[id number]:08/03/2024 MRI Patient: ELADIA ZULETA Provider: Ambrocio Montes De Oca MD :2000 A ge:24 Y S ex:Female Date:08/03/2024 Address:[address] [place], [place] [phone] Subjective: * Chief Complaints: * 1 . Lumbar radiculopathy. * Medical History: Objective: * Vitals: Assessment: * Assessment: 1. L umbar radiculopathy - M54.16 (Primary) Plan: * Treatment: * Procedure Codes: 7 2148 MRI Lumbar Spine w/o Dye * Follow Up: Forms: * Images: * Electronic signature of Marianela Delcid MD on 03/21/2025 at 10:00 AM EDT Sign off status: Pending * Provider: Ambrocio Montes De Oca MD Date: 0 08/03/2024 Generated for Nii amezquita/Judy/Monica on: 0 03/21/2025 10:00 AM EDT
--- OUTSIDE RECORDS SUMMARY | 2024-08-24 07:15 | XMS_ITS ---
Author Organization [facility] Address [address] [place] [address] Care Team Providers Care Emergency Vehicle Driver Name Role Phone rodrigoMaxxKelinNancy Cruz Unavailable Edgar Patricio Unavailable [phone] Allergies No Known Allergies REASON FOR VISIT Lumbar Disc Herniation- Dr Cruz Medications Medication SIG (Take, Route, Frequency, Duration) Notes Start Date End Date Status CETIRIZINE HCL 10 MG TAKE [address] [facility] EVERY DAY for 30 Days Not-Taking buPROPion 300 mg/24 hours 1 tab(s) orall y every 24 hours Active hydrOXYzine hydrochloride 25 mg 1 tab(s) orally 3 times a day Active metFORMIN 500 MG TAKE 1 TABLET (500 M G) BY MOUTH IN THE MORNING AND IN THE EVENING WITH MEALS for 30 Days Not-Taking ibuprofen 600 mg PLEASE SEE ATTACHED FOR DETAILED DIRECTIONS for 8 Days Not-Taking ethinyl estradiol-norgestimate Activ e Social History Tobacco Use: Social History Observation Description Date Details (start date - stop date) Former Smoker NA - NA AUDIT-C (Standard) Question Answer Notes Did you have a drink contain ing alcohol in the past year? Yes How often did you have six o r more drinks on one occasion in the past year? Less than monthly (1 point) How many drinks did you have on a typical day when you were drinking in the past year? 1 or 2 drinks (0 point) How often did you have a dri nk containing alcohol in the past year? Monthly or less (1 point) Tobacco Control (Standard) Question Answer Notes Tobacco use: Former smoker Encounters Encounter Location Date Provider Diagnosis [facility] [address] [place] [address] 08/24/2024 Edgar Patricio Plan Of Treatment No Information Progress Notes * ELADIA SIERRADOB:1999 (24 yo F)Acc No.[id number]:08/24/2024 Patient: ELADIA ZULETA Provider: Brisa Patricio MD :2000 A ge:24 Y S ex:Female Date:08/24/2024 Address:[address] [place], [place] [phone] Subjective: * Chief Complaints: * 1 . Lumbar Disc Herniation- Dr Cruz. * Medical History: A nxiety: Yes, Chronic back pain:: Yes, CPAP Machine:: No, Depression: Yes, Healthcare worker: No, Latex Allergy: No, Sciatica: Yes, Seen a Psychiatrist: Yes, Have you been in close contact with someone who has had MRSA within the last year?: No, Have you ever had or presently have MRSA?: No, Have you been seen by a dentist in the last year?: Yes, Do you have any dental problems i.e. Broken, loose, or chipped teeth, absess, gum disease?: No. * Surgical History: D enies Past Surgical History. * Family History: G randparents: Arthritis,Cancer,Diabetes,Rheumatoid Arthritis. M other: Arthritis,Diabetes,Rheumatoid Arthritis. S iblings: Diabetes,Alcoholism,Anxiety,Bipolar,Depression,Mental Illness.?Father: Arthritis,Anxiety. * Social History: E xercise regularly D o you exercise? N o. W hat is your place of residence? W here do you live? P rivate apartment. A ALEXANDER-C (Standard) D id you have a drink containing alcohol in the past year? Y es, H ow often did you have six or more drinks on one occasion in the past year? L ess than monthly (1 point), H ow many drinks did you have on a typical day when you were drinking in the past year? 1 or 2 drinks (0 point), H ow often did you have a drink containing alcohol in the past year? M onthly or less (1 point). T obacco Control (Standard) T obacco use: F ormer smoker. * Medications: T aking ethinyl estradiol-norgestimate , Taking hydrOXYzine hydrochloride 25 mg tablet 1 tab(s) orally 3 times a day , Taking buPROPion 300 mg/24 hours tablet, extended release 1 tab(s) orally every 24 hours , Not-Taking/PRN ibuprofen 600 mg tablet PLEASE SEE ATTACHED FOR DETAILED DIRECTIONS , Not-Taking/PRN metFORMIN 500 MG TABLET TAKE 1 TABLET (500 MG) BY MOUTH IN THE MORNING AND IN THE EVENING WITH MEALS , Not-Taking/PRN CETIRIZINE HCL 10 MG TABLET TAKE 1 TABLET BY MOUTH EVERY DAY , Medication List reviewed and reconciled with the patient * Allergies: N .K.D.A. Objective: * Vitals: Assessment: Plan: * Treatment: Forms: * Images: * Electronic signature of Edgar Patricio MD on 03/21/2025 at 10:00 AM EDT Sign off status: Pending * Provider: Brisa Patricio MD Date: 0 08/24/2024 Generated for Nii amezquita/Judy/Monica on: 0 03/21/2025 10:00 AM EDT
--- OUTSIDE RECORDS SUMMARY | 2024-09-06 09:00 | XMS_ITS ---
Author Organization [facility] Address [address] [place] [address] Care Team Providers Care Asset Specialist Name Role Phone rodrigoNabilabhishekNancy Cruz Unavailable [phone] Edgar Patricio Unavailable [phone] REASON FOR VISIT Lumbar Disc herniation Dr Cruz Encounters Encounter Location Date Provider Diagnosis [facility] [address] [place] [phone] 09/06/2024 Edgar Patricio Plan Of Treatment No Information Progress Notes * ELADIA SIERRADOB:1999 (24 yo F)Acc No.[id number]:09/06/2024 Patient: ELADIA ZULETA Provider: Brisa Patricio MD :2000 A ge:24 Y S ex:Female Date:09/06/2024 Address:[address] [place], [place] [phone] Subjective: * Chief Complaints: * 1 [address] Lumbar [address] her[address] Cruz. * Medical History: Objective: * Vitals: Assessment: Plan: * Treatment: Forms: * Images: * Electronic signature of Edgar Patricio MD on 03/21/2025 at 10:00 AM EDT Sign off status: Pending * Provider: Brisa Patricio MD Date: 0 09/06/2024 Generated for Shamari alirio/Judy/eTransmitting on: 0 03/21/2025 10:00 AM EDT
--- OUTSIDE RECORDS SUMMARY | 2025-03-15 17:30 | XMS_ITS | Encounter Summary ---
Author Organization [facility] Address [address] [place] [address] Care Team Providers Care Development Director Name Role Phone Destinee Britton MD Primary Care Provider [phone] Reason for Visit * Rehabilitation - Outpatient (Routine) - Authorized Specialty Diagnoses / Procedures Referred By Contac t Referred To Contact Physical Therapy Diagnoses Sacrococcygeal disorders, not elsewhere classified Procedures MI THER PX 1/> AREAS EACH 15 MIN NEUROMUSC REEDUCA MI MANUAL THERAPY TQS 1/> REGIONS EACH 15 MINUTES MI THERAPEUTIC PX 1/> AREAS EACH 15 MIN EXERCISES PHYS/OCC THERAPY SS Feliz Musa MD [address] [place] [address], [address] [place] [address] Phone: tel: fax: Delia Kwan PT Referral ID Status Reason Start Date Expiration Date V isits Requested Visits Authorized [id number] Authorized 03/09/2025 05/07/2025 6 6 Encounter Details Date Type Department Care Team (Latest Contact Info) Description 03/15/2025 5:30 PM EDT Treatment [facility] [address] [facility] [address] [place] [address] Ryan Barger, NATI Sacrococcygeal disorders, not elsewhere classified (Primary [...] week 05/20/2024 How often do you attend orthodox or synagogue serv ices? Never 05/20/2024 Do you belong to any clubs o r organizations such as orthodox groups, unions, fraternal or athletic groups, [...] Recorded Patient Health Questionnaire-2 Score 0 05/20/2024 [facility] [place] of Occupat ional Health - Occupational Stress [...] any time in the past 12 m [facility], were you homeless or living in a senior care (including now)? No 05/20/2024 Comments No Sex and Gender Information Value Date Recorded Sex Assigned at Female 06/25/2023 1:54 PM EST Legal Sex Female 6:57 PM EDT Gender Identity Female 06/25/2023 1:54 PM EST Sexual Orientation Not on file documented as of this encounter Progress Notes * Ryan Barger PTA - 03/15/2025 5:30 PM EDT Images from the original note were not included. Physical Therapy Progress Visit Patient Name: Edwige Patterson Today's Date: 03/15/2025 Encounter Diagnoses Name Primary? Sacrococcygeal disorders, not elsewhere classified Yes Visit number: 7 Timed Code Treatment: 38 minutes Total Treatment Time: 53 minutes Time In: 1719 Time Out: 1814 History: Pt states she has been having [...] right sided low back pain Subjective: Pt went to ER in AM due to flair up of mid to lower back. Sharp pain in R lumbar region. Had injections and is feeling somewhat better. Pt reports she has appt with management tomorrow to discuss injections. Pain: 5/10 bilateral lower back/sacral region. Objective: PT Evaluation (01/24/2025) LUMBAR SPINE [...] max, to reduce muscular tone. Therapeutic Exercise: (23 minutes) Guided pt through Hank phase I ther and hip/core ex per gridto improve lumbar stability, strength and functional mobility. Therapeutic Activity: Exercises to improve dynamic activities, functional tasks, functional mobility to return to prior activity level as needed. Neuromuscular re-education: Balance Training, Muscle Facilitation, Dynamic Stability, Core Stabilization, and Blood Flow Restriction Training (BFRT) as needed. Modalities: (15 minutes ) HP w/ ESU in prone post session to reduce inflammation and muscle soreness Heat, Ice, Electrical Stimulation, Ultrasound, Cervical Mechanical Traction, Lumbar Mechanical Traction, Iontophoresis, and Fluidotherapy as needed. Assessment: Pt is 24 y/o female with complaints of chronic low back pain with radicular pain into R LE/hip. Pt with moderate to Moderate tenderness right SIJ. Due to incrased pain this AM session therex was reduced. And kept within tolerance. ESU and HP provided to improve muscular relaxation. Pt is making progress towards LTGs and will continue to benefit from therapy to reduce pain and progress pelvic and lumbar stability needed to reduce pain. Outcome Measure: Back Index: 25/50, (03/02/25) Rehab Diagnosis: low back pain, bilateral hip pain and weakness, limited ROM and mobility Short Term Goal: To be met in 2 weeks Goal 1: Pt to be instructed in home exercise program. [employer] Goals: To be met in 10 weeks [...] Date: Cosigned by Delia Kwan PT at 03/17/2025 8:26 AM EDT documented in this encounter Plan of Treatment Upcoming Encounters Date Type Department Care Team (Late st Contact Info) Description 03/21/2025 1:00 PM EDT Treatment [facility] [address] [place] [place] [address] Ryan Barger PTA 03/24/2025 6:00 PM EDT Treatment [facility] [address] [place] [address] Ofelia Blakely, WAREHOUSE ANALYST 03/29/2025 5:30 PM EDT Treatment [facility] [address] [facility] [address] [place] [address] Ryan Barger, WAREHOUSE ANALYST 04/04/2025 5:30 PM EDT Treatment [facility] [address] [facility] [address] [place] [address] Delia Kwan, PT 04/11/2025 5:30 PM EDT Treatment [facility] [address] [facility] [address] [place] [address] Delia Kwan, PT 08/15/2025 5:30 PM EST Office Visit [facility] [address] [place] [address] Jovita Salas, ALEJANDRA [address] [place] [address] documented as of this encounter Visit Diagnoses Diagnosis Sacrococcygeal disorders, not elsewhere classified- Primary documented in this encounter Care Teams Development Director Relationship Specialty Start Date End Date Destinee Britton MD [address] [place] [address] PCP - General Family Medicine 11/12/22 documented as of this encounter
--- OUTSIDE RECORDS SUMMARY | 2025-03-21 10:00 | XMS_ITS | Patient Health Record ---
Author Organization [facility] Address [address] [place] [address] Care Team Providers Care Full Stack Engineer Name Role Phone Nancy Delcid Unavailable Edgar Patricio Unavailable [phone] Allergies No Known Allergies Reason For Referral Reason PRIOR AUTH APPROVED ANTHEM...MRI lumbar scheduled 08/03/24 DONE Diagnosis 1 Lumbar radiculopathy (M54.16) Referral Organization [facility] Referring Provider First Name Nancy Referring Provider Last Name Radha padron Referring Provider Speciality Orthopedic Surgery Referred Organization [facility] Referred Address [address] [place] [phone], Procedure 1 MRI Lumbar Spine w/o Dye (71273) General Notes Kathy Deal 07/27/19 11:05:31 AM >, Demetria Hannon 07/27/2024 11:28:31 AM > PER PEPITO SYED AUTH HAS BEEN APPROVED FROM 07/27/2024-08/25/2024 AUTH # [id number], AUTH IN CHART. Referral Priority Stat Reason Referral Dr. Sheng capellan and treat L4-S1 YELENA Diagnosis 1 Lumbar disc herniati on (M51.26) Referral Organization [facility] Referring Provider First Name Nancy Referring Provider Last Name Radha g Referring Provider Speciality Orthopedic Surgery Referred Organization [facility] Referred Provider Edgar Patricio Referred Address [address] [place] [phone], General Notes Mirian Dealha 08/03/19 12:17:52 PM >, Eladia Taylor 08/04/2024 08:27:50 AM >CAlled and lmovm to schedule with Dr Patricio-september, Eladia Taylor 08/04/2024 08:36:04 AM >scheduled 3.3.25 Referral Priority Routine Reason [phone] fax [facility]; Pt requesting pain management at that location. Diagnosis 1 Lumbar radiculopathy (M54.16) Referral Organization [facility] Referring Provider First Name Zenag Referring Provider Last Name xxUdo-Zena g Referring Provider Speciality Orthopedic Surgery [facility] Referred Address [place], [place], General Notes Malia Lobato 12/2024 02:22:47 PM >, Malia Lobato 08/13/2024 09:43:43 AM >FYI: She is scheduled for an appt with Dr. Patricio, father called and requested a referral to [facility], but keeping appt with Sheng if they [...] Problem Status W/U Status Risk Notes Problem [id number] Discogenic low back pain (M51.360) Active confirmed Problem 532200754 Lumbar disc herniation (M51.26) Active confirmed Problem [id number] Lumbar radiculopathy (M54.16) Active confirmed Vital Signs Height 5ft 7in in 08/03/2024 Weight 240 lbs 08/03/2024 BMI 37.59 08/03/2024 Encounters Encounter Location Date Provider Diagnosis [facility] [address] [place] [address] 08/03/2024 [facility] Lumbar radiculopathy M54.16 [facility] [address] [place] [address] 07/27/2024 [facility] Lumbar radiculopathy M54.16 ; Discogenic low back pain M51.360 and Right hip pain M25.551 [facility] [address] [place] [address] 08/03/2024 [facility] Lumbar disc herniation M51.26 and Lumbar radiculopathy M54.16 [facility] [place] [address] [place] [address] 08/05/2024 [facility] [place] [address] [place] [address] 08/12/2024 [facility] Lumbar radiculopathy M54.16 ; Right hip pain [...] Lumbar spine 2v ap and lat - 93672 07/27 Hip, right 2v WITH PELVIS - 51200 2024 Future Test Test Name Order Date MRI : Lumbosacral Spine W/O Contrast - 7 214707/27/2024 Insurance Providers Payer Name Payer Address Payer Phone Subscriber Number Group Number Insured Name Patient Relationship to Insured Coverage Start Date Coverage End Date [place] [address] [place] [address] [id number] ELADIA PAN Self - patient is [...]
--- OUTSIDE RECORDS SUMMARY | 2025-03-21 10:00 | XMS_ITS | Clinical Summary ---
Author Organization [facility] Address [address] [facility], [address] [place] [address] Care Team Providers Care Evaluator Name Role Phone Ottoniel Romeo Primary Care Provider [phone] Allergies No known active allergies Medications buPROPion [...] to complete this topic Insurance Care Teams Evaluator Relationship Specialty Start Date End Date Ottoniel Romeo DO [address] [place] [address];[address] [place] [id number] PCP - General Family Medicine 07/20/24
--- OUTSIDE RECORDS SUMMARY | 2025-03-21 10:00 | XMS_ITS | Clinical Summary ---
Author Organization [employer] s tem Address [id number] [address] [place] [address] Care Team Providers Care Home Office Claim Specialist Name Role Phone Ousmane Ottoniel Sunil BOWEN Primary Care Provider [phone] Allergies No known active allergies Medications * This document contains information received from the source organization and may not represent a complete record from that organization. MONO-LINYAH 0.25-35 mg-mcg per tablet Take 1 tablet by mouth. Active baclofen (LIORESAL) 10 mg tablet Take 1 tablet (10 mg total) by mouth 3 (three) times a day. Active etodolac (LODINE) 400 mg tablet Take 1 tablet (400 mg total) by mouth 2 (two) times a day as needed. Active HYDROcodone-ib uprofen (VICOPROFEN) 7.5-200 mg per tablet 5 Active metFORMIN XR (GLUCOPHAGE XR) 500 mg 24 hr tablet Take 1 tablet (500 mg total) by mouth. 5 02/15/20 26 Active desvenlafaxine (PRISTIQ) 50 mg 24 hr tabletIndicati ons:Moderate episode of recurrent major depressive disorder (CMS-HCC) Take 1 tablet (50 mg total) by mouth in the morning. 30 tablet 1 5 Active hydrOXYzine (VISTARIL) 25 mg capsule Take 1 capsule (25 mg total) by mouth 3 (three) times a day as needed for anxiety. 30 capsule 4 03/16/20 25 Discontinued buPROPion XL (WELLBUTRIN XL) 300 mg 24 hr tabletIndicati ons:Major depressive disorder, recurrent episode, moderate (CMS-HCC) TAKE 1 TABLET BY MOUTH IN THE MORNING 90 tablet 3 5 03/16/20 25 Discontinued gabapentin (NEURONTIN) 300 mg capsule Take 1 capsule (300 mg total) by mouth 3 (three) times a day. 03/16/20 25 Discontinued Active Problems Problem Noted Date Diagnosed Date PCOS (polycystic ovarian syndrome) 05/28/2024 Adjustment disorder with anxiety 12/26/2023 Recurrent major depressive disorder, in full rem ission 04/25/2020 Phase of life problem 04/25/2020 Encounters * This document contains information received from the source organization and may not represent a complete record from that organization. Date Type Department Care Team Description 03/16/2025 Travel 02/23/2025 Travel 01/20/2025 Travel from Last 3 Months Immunizations Immunization [...] Vaccine 03/07/2025 04/29/2024, , 07/17/2018 Tobacco Screening 03/16/2026 03/16/2025 COVID-19 Vaccine Completed 04/29/2024, , 11/18/2020 Medical Devices Not on file Insurance ANTHEM Care Teams Home Office Claim Specialist Relationship Specialty Start Date End Date Braniecki, Ottoniel A, DO PCP - General Family Medicine 04/03/20
--- OUTSIDE RECORDS SUMMARY | 2025-03-21 10:00 | XMS_ITS | Encounter Summary ---
Author Organization [facility] Address [address] [place] [address] Care Team Providers Care Organic Chemistry Teacher Name Role Phone Destinee Britton MD Primary Care Provider [phone] Encounter Details Date Type Department Care Team (Late st Contact Info) Description 09/10/2024 Telephone [facility] [address] [place] [address] Jovita Salas, [facility] [address] [place], [place] [phone] Social History Tobacco Use Types Packs/Day Years [...] week 05/20/2024 How often do you attend voodoo or gnosticism serv ices? Never 05/20/2024 Do you belong to any clubs o r organizations such as voodoo groups, unions, fraternal [...] Recorded Patient Health Questionnaire-2 Score 0 05/20/2024 [facility] - Occupational [...] [facility] [address] [place] [address] Ryan Barger, HEALTH INFORMATION MANAGER 03/24/2025 6:00 PM EDT Treatment [facility] [address] [facility] [address] [place] [address] Ofelia Blakely, HEALTH INFORMATION MANAGER 03/29/2025 5:30 PM EDT Treatment [facility] [address] [facility] [address] [place] [address] Ryan Barger, HEALTH INFORMATION MANAGER 04/04/2025 5:30 PM EDT Treatment [facility] [address] [facility] [address] [place] [address] Delia Kwan, PT 04/11/2025 5:30 PM EDT Treatment [facility] [address] [facility] [address] [place] [address] Delia Kwan, PT 08/15/2025 5:30 PM EST Office Visit [facility] [address] [place] [address] Jovita Salas, [facility] [address] [facility] [place] [address] documented as of this encounter Visit Diagnoses Not on filedocumented in this encounter Care Teams Organic Chemistry Teacher Relationship Specialty Start Date End Date Destinee Britton MD [address] [facility] [place], [place] [phone] PCP - General Family Medicine 11/12/22 documented as of this encounter
--- OUTSIDE RECORDS SUMMARY | 2025-03-21 10:00 | XMS_ITS | Encounter Summary ---
Author Organization [employer] s tem Address [id number] [address] [place] [address] Care Team Providers Care Copyman Name Role Phone Ottoniel Romeo DO Primary Care Provider [phone] Encounter Details Date Type Department Care Team (Latest Contact Info) Description 03/16/2025 Travel Social History Tobacco Use Types Packs/Day [...] on filedocumented in this encounter Care Teams Copyman Relationship Specialty Start Date End Date Ottoniel Romeo DO PCP - General Family Medicine 04/03/20 documented as of this encounter
--- OUTSIDE RECORDS SUMMARY | 2025-03-21 10:00 | XMS_ITS | Encounter Summary ---
Author Organization [facility] Address [address] [facility] [place] [address] Care Team Providers Care Bakery Worker Conveyor Line Name Role Phone Destinee Britton MD Primary Care Provider [phone] Encounter Details Date Type Department Care Team (Late st Contact Info) Description 02/18/2025 Abstract [facility] [address] [place] [phone] Destinee Britton MD [address] [place], [place] [phone] Social History Tobacco Use Types Packs/Day Years [...] How often do you attend restorationism or muslim serv ices? Never 05/20/2024 Do [...] Patient Health Questionnaire-2 Score 0 05/20/2024 [facility] Health - Occupational [...] [address] [facility] [address] [place] [address] Ryan Barger, HL7 DEVELOPER 03/24/2025 6:00 PM EDT Treatment [facility] [address] [facility] [address] [place] [address] Ofelia Blakely, HL7 DEVELOPER 03/29/2025 5:30 PM EDT Treatment [facility] [address] [facility] [address] [place] [address] Ryan Barger, HL7 DEVELOPER 04/04/2025 5:30 PM EDT Treatment [facility] [address] [facility] [address] [place] [address] Delia Kwan, PT 04/11/2025 5:30 PM EDT Treatment [facility] [address] [facility] [address] [place] [address] Delia Kwan, PT 08/15/2025 5:30 PM EST Office Visit [facility] [address] [place] [address] Jovita Salas CNM [address] [place] [address] documented as of this encounter Visit Diagnoses Not on filedocumented in this encounter Care Teams Bakery Worker Conveyor Line Relationship Specialty Start Date End Date Destinee Britton MD [address] [place] [address] PCP - General Family Medicine 11/12/22 documented as of this encounter
--- OUTSIDE RECORDS SUMMARY | 2025-03-21 10:00 | XMS_ITS | Encounter Summary ---
Author Organization [facility] Address [address] [facility] [place] [address] Care Team Providers Care Video Game Repair Technician Name Role Phone Destinee Britton MD Primary Care Provider [phone] Encounter Details Date Type Department Care Team (Late st Contact Info) Description 12/17/2024 Results Follow-Up [facility] [address] [place] [address] Ness Montez NP [address] [place], [place] [phone] [place] LIVER Social History Tobacco Use Types [...] How often do you attend restorationism or anabaptist serv ices? Never 05/20/2024 Do [...] Recorded Patient Health Questionnaire-2 Score 0 05/20/2024 [facility] - Occupational [...] [facility] [address] [facility] [address] [place] [address] Ryan Barger, MATERIAL HANDLER 1ST SHIFT 03/24/2025 6:00 PM EDT Treatment [facility] [address] [facility] [address] [place] [address] Ofelia Blakely, MATERIAL HANDLER 1ST SHIFT 03/29/2025 5:30 PM EDT Treatment [facility] [address] [facility] [address] [place] [address] Ryan Barger, MATERIAL HANDLER 1ST SHIFT 04/04/2025 5:30 PM EDT Treatment [facility] [address] [facility] [address] [place] [address] Delia Kwan, PT 04/11/2025 5:30 PM EDT Treatment [facility] [address] [facility] [address] [place] [address] Delia Kwan, PT 08/15/2025 5:30 PM EST Office Visit [facility] [address] [place] [address] Jovita Salas CNM [address] [place] [address] documented as of this encounter Visit Diagnoses Not on filedocumented in this encounter Care Teams Video Game Repair Technician Relationship Specialty Start Date End Date Destinee Britton MD [address] [place] [address] PCP - General Family Medicine 11/12/22 documented as of this encounter
--- OUTSIDE RECORDS SUMMARY | 2025-03-21 10:00 | XMS_ITS | Clinical Summary ---
Author Organization [facility] Address [address] [facility] [place] [address] Care Team Providers Care Radiology Equipment Servicer Name Role Phone Destinee Britton MD Primary Care Provider [phone] Allergies No known active allergies Medications hydrOXYzine pamoate (Vistaril) 25 MG capsule Take 25 mg by mouth 3 (three) times a day as needed 4 Active cetirizine (ZyrTEC) 10 MG tablet TAKE 1 TABLET BY MOUTH EVERY DAY for 30 Days Active cyclobenzaprine (Flexeril) 10 MG tablet Take 1 tablet by mouth 3 (three) times a day as needed Active ibuprofen 600 MG tablet PLEASE SEE ATTACHED FOR DETAILED DIRECTIONS for 8 Days Active methocarbamol (Robaxin) 500 MG tablet Take 1,000 mg by mouth 5 Active ondansetron ODT (Zofran-ODT) 4 MG disintegrating tablet Take 4 mg by mouth every 8 (eight) hours if needed for nausea 5 Active buPROPion XL (Wellbutrin XL) 300 MG 24 hr tablet Take 300 mg by mouth in the morning. 5 Active gabapentin (Neurontin) 300 MG capsule Take 300 mg by mouth in the morning and 300 mg in the evening and 300 mg before bedtime. 5 Active Norgestimate-Eth Estradiol (Lyd-Pt-Folwmd) 0.18/0.215/0.25 MG-25 MCG tabletIndications: Unwanted fertility TAKE 1 TABLET BY MOUTH EVERY DAY 84 tablet 5 Active etodolac (Lodine) 400 MG tablet Take 400 mg by mouth 2 (two) times a day as needed 5 Active baclofen (Lioresal) 10 MG tablet Take 10 mg by mouth in the morning and 10 mg at noon and 10 mg in the evening. Active metFORMIN XR (Glucophage-XR) 500 MG 24 hr tabletIndications: PCOS (polycystic ovarian syndrome) Take 1 tablet (500 mg) by mouth in the evening. Take with meals Do not crush, chew, or split. 90 tablet 3 5 026 Active norgestimate-ethin yl estradiol (Sprintec 28) 0.25-35 MG-MCG tabletIndications: Encounter for initial prescription of contraceptive pills Take 1 tablet by mouth Daily 90 tablet 3 5 025 Active Active Problems Problem Noted Date Diagnosed [...] Encounters Date Type Department Care Team Description 03/15/2025 5:30 PM EDT Treatment [facility] [address] [facility] [address] [place] [address] Ryan Barger, NATI Sacrococcygeal disorders, not elsewhere classified (Primary Dx) 03/15/2025 Bamboo flowsheet [facility] [address] [facility] [address] [place] [address] Jhonatanfab Ryan, BOAT FUELER 03/15/2025 Travel 03/02/2025 5:30 PM EDT Treatment [facility] [address] [facility] [address] [place] [address] Ryan Barger, BOAT FUELER Sacrococcygeal disorders, not elsewhere classified (Primary Dx) 03/02/2025 Bamboo flowsheet [facility] [address] [facility] [address] [place] [address] Ryan Barger, BOAT FUELER 03/02/2025 Travel 02/28/2025 6:00 PM EDT Treatment [facility] [address] [facility] [address] [place] [address] Delia Kwan, PT Sacrococcygeal disorders, not elsewhere classified (Primary Dx) 02/28/2025 Bamboo flowsheet [facility] [address] [facility] [address] [place] [address] Delia Kwan, PT 02/28/2025 Travel 02/18/2025 Abstract [facility] [address] [place] [address] Destinee Britton MD 02/15/2025 6:00 PM EDT Treatment [facility] [address] [facility] [address] [place] [address] Kem Costa, BOAT FUELER Sacrococcygeal disorders, not elsewhere classified (Primary Dx) 02/15/2025 Travel 02/15/2025 Telephone [facility] [address] [place] [address] Destinee Britton MD 02/14/2025 5:30 PM EDT Office Visit [facility] [address] [place] [address] Jovita Salas CNM PCOS (polycystic ovarian syndrome) (Primary Dx); Encounter for initial prescription of contraceptive pills; Insulin resistance 02/14/2025 Bamboo flowsheet [facility] [address] [place] [address] Jovita Salas CNM 02/14/2025 Travel 02/01/2025 6:00 PM EDT Treatment [facility] [address] [facility] [address] [place] [address] Kem Costa, BOAT FUELER Sacrococcygeal disorders, not elsewhere classified (Primary Dx) 02/01/2025 Bamboo flowsheet [facility] [address] [facility] [address] [place] [address] IgorRohanKem, BOAT FUELER 02/01/2025 Travel 01/27/2025 6:00 PM EDT Treatment [facility] [address] [facility] [address] [place] [address] DaniloOfelia george, BOAT FUELER Sacrococcygeal disorders, not elsewhere classified (Primary Dx) 01/27/2025 Bamboo flowsheet [facility] [address] [facility] [address] [place] [address] FredOfelia garnett, BOAT FUELER 01/27/2025 Travel 01/25/2025 Plan of Care Documentation [facility] [address] [facility] [address] [place] [address] 01/24/2025 6:00 PM EDT Evaluation [facility] [address] [facility] [address] [place] [address] Delia Kwan, PT Sacrococcygeal disorders, not elsewhere classified (Primary Dx) 01/24/2025 Bamboo flowsheet [facility] [address] [facility] [address] [place] [address] Delia Kwan, PT 01/24/2025 Travel 01/22/2025 Refill [facility] [address] [place] [address] Jovita Salas CNM Unwanted fertility 01/21/2025 Travel 01/11/2025 Refill [facility] [address] [place] [address] Destinee Britton MD Encounter for initial [...] History Relation Name Comments Diabetes [facility] Heart failure Other g-ma Cancer Paternal Grandmother [facility] Diabetes Sister 2 [facility] Mental illness Sister 2 [facility] Relation Name Status Comments Father Alive Mother Kelsy [place] Alive Other Paternal Grandmother Tawnya [facility] Sister 1 Alive Sister 2 [facility] Social History Tobacco Use Types Packs/Day [...] How often do you attend worship or anabaptism serv ices? Never 05/20/2024 Do you belong [...] Recorded Patient Health Questionnaire-2 Score 0 05/20/2024 [facility]ational Stress Questionnaire Answer [...] any time in the past 12 m onths, were you homeless or living in a [...] Physical Therapy [address] [facility] [address] [place] [address] Ryan Barger PTA 03/24/2025 6:00 PM EDT Treatment [facility] [address] [facility] [address] [place] [address] Ofelia Blakely, BOAT FUELER 03/29/2025 5:30 PM EDT Treatment [facility] [address] [facility] [address] [place] [address] Ryan Barger, BOAT FUELER 04/04/2025 5:30 PM EDT Treatment [facility] [address] [facility] [address] [place] [address] Delia Kwan, PT 04/11/2025 5:30 PM EDT Treatment [facility] [address] [facility] [address] [place] [address] Delia Kwan, PT 08/15/2025 5:30 PM EST Office Visit [facility] [address] [place] [address] Jovita Salas, CNM [address] [place] [address] Health Maintenance Due Date Last Done Comments Influenza Vaccine (#1) 2025 04/29/2024, 2019, 07/17/2018 Insurance BS Care Teams Radiology Equipment Servicer Relationship Specialty Start Date End Date Destinee Britton MD [address] [place] [address] PCP - General Family Medicine 11/12/22
--- OUTSIDE RECORDS SUMMARY | 2025-03-21 10:00 | XMS_ITS | Encounter Summary ---
Author Organization [facility] Address [address] [place] [address] Care Team Providers Care Restaurant Floor Manager Name Role Phone Destinee Britton MD Primary Care Provider [phone] Encounter Details Date Type Department Care Team (Latest Contact Info) Description 03/15/2025 Travel Social History Tobacco Use Types Packs/Day [...] How often do you attend orthodoxy or zoroastrian serv ices? Never 05/20/2024 Do [...] Recorded Patient Health Questionnaire-2 Score 0 05/20/2024 [facility] ional Health - Occupational Stress [...] in the past 12 m [facility], were you homeless or living in a group home (including now)? No 05/20/2024 Comments No [...] Tc Physical Therapy [address] [facility] [address] [place] [address] Ryan Barger, INDUSTRIAL MAINTENANCE MANAGER 03/24/2025 6:00 PM EDT Treatment [facility] [address] [facility] [address] [place] [address] Ofelia Blakely, INDUSTRIAL MAINTENANCE MANAGER 03/29/2025 5:30 PM EDT Treatment [facility] [address] [facility] [address] [place] [address] Ryan Barger, INDUSTRIAL MAINTENANCE MANAGER 04/04/2025 5:30 PM EDT Treatment [facility] [address] [facility] [address] [place] [address] Delia Kwan, PT 04/11/2025 5:30 PM EDT Treatment [facility] [address] [facility] [address] [place] [address] Delia Kwan, PT 08/15/2025 5:30 PM EST Office Visit [facility] [address] [place] [address] Jovita Salas CNM [address] [place] [address] documented as of this encounter Visit Diagnoses Not on filedocumented in this encounter Care Teams Restaurant Floor Manager Relationship Specialty Start Date End Date Destinee Britton MD [address] [place] [address] PCP - General Family Medicine 11/12/22 documented as of this encounter
--- OUTSIDE RECORDS SUMMARY | 2025-03-21 10:00 | XMS_ITS | Encounter Summary ---
Author Organization [facility] Address [address] [place] [address] Care Team Providers Care Babbitt Spinner Name Role Phone Destinee Britton MD Primary Care Provider [phone] Encounter Details Date Type Department Care Team (Late st Contact Info) Description 03/15/2025 Bamboo flowsheet [facility] [address] [facility] [address] [place] [address] Ryan Barger PTA Social History Tobacco Use [...] week 05/20/2024 How often do you attend zoroastrianism or anabaptist serv ices? Never 05/20/2024 Do you belong to any clubs o r organizations such as zoroastrianism groups, unions, fraternal or athletic groups, or [...] Recorded Patient Health Questionnaire-2 Score 0 05/20/2024 [facility] Occupat ional Health [...] any time in the past 12 m [facility], were you homeless or [...] [facility] [address] [facility] [address] [place] [address] Ryan Barger, OUTSOLES CHANNEL OPENER 03/24/2025 6:00 PM EDT Treatment [facility] [address] [facility] [address] [place] [address] Ofelia Blakely, OUTSOLES CHANNEL OPENER 03/29/2025 5:30 PM EDT Treatment [facility] [address] [facility] [address] [place] [address] Ryan Barger, OUTSOLES CHANNEL OPENER 04/04/2025 5:30 PM EDT Treatment [facility] [address] [facility] [address] [place] [address] Delia Kwan, PT 04/11/2025 5:30 PM EDT Treatment [facility] [address] [facility] [address] [place] [address] Delia Kwan, PT 08/15/2025 5:30 PM EST Office Visit [facility] [address] [place] [address] Jovita Salas, WILLOW [address] [place], [place] [phone] documented as of this encounter Visit Diagnoses Not on filedocumented in this encounter Care Teams Babbitt Spinner Relationship Specialty Start Date End Date Destinee Britton MD [address] [place] [address] PCP - General Family Medicine 11/12/22 documented as of this encounter
--- OUTSIDE RECORDS SUMMARY | 2025-03-21 10:05 | XMS_ITS | CCD ---
Author Organization [facility] Care Team Providers Care Clay Pigeon Setter Name Role Phone Radha Aguilera Attending Provider Unavailnaun DUMONT, FAMILY PHYSICIAN Primary Care Provider Unava toyin BRITTON, DR LOOMIS Primary Care Unavailable GRISEL DIALLO Admitting Unavailable KEDAR, DR ROGE Sewell Consulting Unavailable GRISEL DIALLO Attending Unavailable GRISEL DIALLO Consulting Unavailable SUYAPA JACKSON Admitting Unavailable BRANJENNIFERI, BECKY Primary Care Unavailable RENETTA, SUYAPA Attending Unavailable RENETTA, SUYAPA Attending Unavailable RENETTA, SUYAPA Consulting Unavailable RENETTA, SUYAPA Admitting Unavailable BRANIECKI, BECKY Primary Care Unavailable WEST, DR ROGE Sewell Consulting Unavailable RENETTA, SUYAPA Admitting Unavailable BRANJENNIFERI, BECKY Primary Care Unavailable RENETTA, SUYAPA Attending Unavailable RENETTA, SUYAPA Consulting Unavailable RELL BARKER Consulting Unavailable EWELINA, AMAURY Consulting Unavailable DOUG TREVIÑO Consulting Unavailable MONA, FLORINA Consulting Unavailable RENETTA, SUYAPA Attending Unavailable RENETTA, SUYAPA Admitting Unavailable WEST, DR ROGE Sewell [...] Tobi LANDIS, Destinee Sweeney Primary Care Provider [phone] Braniecki DO, Becky A Primary Care Provider BRANJENNIFERI, BECKY A Primary Care Unavailable YOLI LAL Attending Unavailable BRANIECKI, BECKY A Primary Care Unavailable BRANIECKI, BECKY A Primary Care Unavailable PRIYANK GASPAR Attending Unavailable Braniecki DO, Becky Primary Care Provider [phone] Lcaey Morton LPN Attending Provider Unavailable Giovana DO, Mack Zimmerman Attending Provider [phone] Lencho LANDIS, Feliz Queen Attending Provider [phone] Gicelena LANDIS, Ty Wallace Attending Unavailable Giedraitis , Andrius Wallace Attending Unavailable Giedraitis , Andrius Rodrigo Attending Unavailable Giedraitis , Andrius Rodrigo Attending Unavailable Giedraitis , Andrius Rodrigo Attending Unavailable Braniecki DO, Becky Les Referring Un available Edwina LANDIS, Adam Aguilar Attending Unavail able ROSANA, CHAD Giordano Attending Unavailable BRANIECKI, BECKY A Referring Unavailable BRANIECKI, BECKY A Primary Care Unavailable ROSANA, CHAD Giordano Attending Unavailable BRANIECKI, BECKY A Referring Unavailable BRANIECKI, BECKY A Primary Care Unavailable ROSANA, CHAD Giordano Attending Unavailable BRANIECKI, BECKY A Referring Unavailable BRANIECKI, BECKY A Primary Care Unavailable NUBIA STEPHENS Attending Unavailable BRANIECKI, BECKY A Referring Unavailable [...] Unavailable BRANIECKI, BECKY A Primary Care Unavailable Unavailable Unavailable Unavailable Medications Current Medications [...] tablet by mouth once daily Norgest[employer]-Eth Estradiol (Hlw-Bz-Mmnsfw) 0.18/0.215/0.25 MG-25 MCG tablet Indications: Unwanted fertility [...] Drug Class(es) Dates Sig (Normalized) Sig (Original) [id number] 200 actuat albuterol 0.09 mg/actuat metered dose [...] 11, 2023 2:33pm take 1 capsule by [facility] every eight hours Dicyclomine HCl 10 MG [...] source) Exposure to COVID-19 virus Z20.822 Onset: 12-28-2021 Resolved: 07-03-2021 Unclassified (1 source) Cough, unspecified type R05.9 Unclassified (1 source) Acute cough R05.1 Viral infection (1 source) COVID-19 Onset: 07-03-2021 Resolved: 07-03-2021 Results Test Name Value Interpretation Reference Range Facility HCG ( test) Ql (U)o n 12-03-2024 Interpretation and review of laboratory results Normal [facility] Preg Test, Ur Negative Negative [facility] Urinalysis macro (dipstick) panel (U)on 12-03-2024 Bilirubin, UA 3+ Negative - 4(70) +++ mg/dL [facility] Blood, UA Negative Negative - 50 Aidan/mcL [facility] Clarity, UA Clear [facility] Color, UA Yellow [facility] Glucose, UA Negative Negative - 2000(110) ++++ mg/dL [facility] Interpretation and review of laboratory results Abnormal [facility] Ketones, UA Positive Negative - 160(16) ++++ mg/dL [facility] Leukocytes, UA 1+ Negative - 500+++ Samira/mcL [facility] Nitrite, UA Negative Negative - Positive [facility] pH, UA 6 5 - 9 [facility] Protein, UA 1+ Negative - 2000(20) ++++ mg/dL [facility] Spec Grav, UA 1.02 1 - 1.03 [facility] Urobilinogen, UA 0.2 0.2 - 12 mg/dL [facility] CT LUMBAR SPINE WO CONTRASTo n [...] Octavio Lowe MD 07/20/24 Final result Normal [facility] CT Lumbar spine WO contrasto n [...] facets throughout with no significant spinal stenosis. [facility] RIS CONSOLIDATED EXAMINATION: CT OF THE LUMBAR [...] TISSUES/RETROPERITONE UM: No paraspinal mass is seen. [facility] RIS CONSOLIDATED Octavio Lowe MD - 07/20/2024 [...] facets throughout with no significant spinal stenosis. [facility] Radiology Study observation (narrative) [facility] CT Lumbar spine WO contrastO rdered By: Octavio Lowe on 07-20-2024 [facility] Work Phone: HCG, ,Urineon 07-20 Beta HCG ( test) Ql (U) Negative Normal NEG [facility] Comment on above: Result Comment: Spec imens with hCG levels near the threshold of the test (25 mIU/mL) may give a negative or indeterminate result. In such cases, another test should be performed with a new specimen in 48-72 hours. If early is suspected clinically in this setting, correlation with quantitative serum b-hCG level is suggested. [facility] has confirmed the use of plasma for this test. This has not been cleared or approved by the U.S. Food and Drug Administration. The FDA has determined that such clearance is not necessary. Performed By: #### U HCG #### [facility] [address] [place] [address] Complaint Evaluation Officer: Roge Rios MD Microscopic Urinalysison Amorphous sediment LM Ql (Urine sed) 1+ Abnormal None [facility] Epithelial cells LM.HPF (Urine sed) [#/Area] 2 TO 5 [facility] Interpretation and review of laboratory results Abnormal [facility] RBC LM.HPF (Urine sed) [#/Area] 0 TO 2 [facility] Renal Epithelial, UA 2 TO 5 0 /HPF [facility] WBC LM.HPF (Urine sed) [#/Area] 5 TO 10 [facility] , Urineon HCG ( test) Ql (U) Negative NEGATIVE [facility] Comment on above: Specimens with hCG l evels near the threshold of the test (25 mIU/mL) may give a negative or indeterminate result. In such cases, another test should be performed with a new specimen in 48-72 hours. If early is suspected clinically in this setting, correlation with quantitative serum b-hCG level is suggested. [employer] has confirmed the use of plasma for this test. This has not been cleared or approved by the U.S. Food and Drug Administration. The FDA has determined that such clearance is not necessary. [facility] Urinalysison 07-20-2024 Bilirubin Ql (U) Negative NEGATIVE [facility] Missingames [facility] Clarity (U) SLIGHTLY CLOUDY Abnormal Clear [facility] urs [facility] Color (U) Yellow Yellow [facility] Glucose Test strip (U) [Mass/Vol] Negative NEGATIVE mg/dL [facility] Hemoglobin Auto test strip Ql (U) Negative NEGATIVE [facility] Interpretation and review of laboratory results Abnormal [facility] Ketones (U) [Mass/Vol] Negative NEGAT AUGUSTINE mg/dL [facility] Leukocyte esterase Test strip Ql (U) SMALL Abnormal NEGATIVE [facility] Nitrite Ql (U) Negative NEGATIVE [facility] pH (U) 8.0 [pH] 5.0 - 9.0 [facility] Protein (U) [Mass/Vol] Negative NEGAT AUGUSTINE mg/dL [facility] Specific gravity (U) [Rel density] 1.020 1.010 - 1.020 [facility] Urobilinogen Qn (U) Normal 0.0 - 1. 0 EU/dL [facility] Urinalysis, Routineon 2024 Bilirubin, SemiQt,Ur Negative Normal NEG [facility] Comment on above: Performed By: #### U A, UMICAO #### [facility] [address] [place] [address] Complaint Evaluation Officer: Roge Rios MD Blood, Urine Negative Normal NEG [facility] Comment on above: Performed By: #### U A, UMICAO #### [facility] [address] [place] [address] Complaint Evaluation Officer: Roge Rios MD Clarity (U) SLIGHTLY CLOUDY Abnormal CLEAR [facility] Comment on above: Performed By: #### U A, UMICAO #### [facility] [address] [place] [address] Dr[address] [place], [place] [id number] Complaint Evaluation Officer: Roge Rios MD Color (U) Yellow Normal YEL [facility] Comment on above: Performed By: #### U A, UMICAO #### [facility] [address] [place] [address] [place] [address] Complaint Evaluation Officer: Roge Rios MD Glucose Ql (U) Negative Normal NEG [facility] Comment on above: Performed By: #### U A, UMICAO #### [facility] [address] [place] [address] [place] [address] Complaint Evaluation Officer: Roge Rios MD Ketones Ql (U) Negative Normal NEG [facility] Comment on above: Performed By: #### U A, UMICAO #### [facility] [address] [place] [address] Complaint Evaluation Officer: Roge Rios MD Leukocyte esterase Test strip Ql (U) SMALL Abnormal NEG [facility] Comment on above: Performed By: #### U A, UMICAO #### [facility] [address] [place], [place] [id number] Complaint Evaluation Officer: Roge Rios MD Nitrite,Ur Negative Normal NEG [facility] Comment on above: Performed By: #### U A, UMICAO #### [facility] [address] [place] [address] Dr[address] [place], [place] [address] Complaint Evaluation Officer: Roge Rios MD PH,Ur 8.0 Normal 5.0-9.0 [facility] Comment on above: Performed By: #### U A, UMICAO #### [address] [place], [place] [address] Complaint Evaluation Officer: Roge Rios MD Protein Ql (U) Negative Normal NEG [facility] Comment on above: Performed By: #### U A, UMICAO #### [address] [place], [place] [address] Complaint Evaluation Officer: Roge Rios MD Spec. [place],Ur 1.020 Normal 1.010-1.020 [facility] Comment on above: Performed By: #### U A, UMICAO #### [address] [place], [place] [address] Complaint Evaluation Officer: Roge Rios MD Urobilinogen,Ur Normal Normal 0.0-1.0 [facility] Comment on above: Performed By: #### U A, UMICAO #### [address] [place], [place] [address] Complaint Evaluation Officer: Roge Rios MD Urinalysis,Microon 5 Amorphous sediment LM Ql (Urine sed) 1+ Abnormal NONE [facility] Comment on above: Performed By: #### U A, UMICAO #### [address] [place], [place] [phone] Complaint Evaluation Officer: Roge Rios MD Epithelial cells LM Ql (Urine sed) 2 TO 5 Normal 0-25 [facility] Comment on above: Performed By: #### U A, UMICAO #### [address] [place], [place] [id number] Complaint Evaluation Officer: Roge Rios MD Epithelial, Renal 2 TO 5 Normal 0 [facility] Comment on above: Performed By: #### U A, UMICAO #### [facility] [address] [place], [place] [id number] Complaint Evaluation Officer: Roge Rios MD Urine RBC's 0 TO 2 Normal 0-2 [facility] Comment on above: Performed By: #### U A, UMICAO #### [facility] [address] [place], [place] [phone] Complaint Evaluation Officer: Roge Rios MD Urine WBC's 5 TO 10 Normal 0-5 [facility] Comment on above: Performed By: #### U A, UMICAO #### [facility] [address] [place], [place] [phone] Complaint Evaluation Officer: Roge Rios MD COVID + FLU Quick Testingon 07-09-2023 SARS-CoV-2 (COVID-19) RNA THA+probe Ql (Unsp spec) Negative [facility] [employer] Other COVID + FLU Quick Testing Negative [facility] [employer] Other XR wrist LT min 3V*on 2022 XR wrist LT min 3V* [facility] [employer] Other XR wrist LT min 3V* [facility] [employer] Other XR wrist LT min 3V* [address] [facility] [employer] Other XR wrist LT min 3V* [place] [address] [facility] [employer] Other XR wrist LT min 3V* XRay Report [facility] [employer] Other XR wrist LT min 3V* Signed [facility] [employer] Other XR wrist LT min 3V* Patient: Edwige Sierra MR#: [id number] [facility] Other XR wrist LT min 3V* [id number] [facility] Other XR wrist LT min 3V* : 2000 Acct:[id number] [facility] Other XR wrist LT min 3V* Age/Sex: 22 / F ADM Date: 12/09/22 [facility] Other XR wrist LT min 3V* Loc: XDUCLY Room: Type: [facility] Other XR wrist LT min 3V* Attending Dr: Lexy BLAKE [facility] Other XR wrist LT min 3V* Copies to: LOU Hernandez [facility] Other XR wrist LT min 3V* Ordering Provider: LOU Hernandez [facility] Other XR wrist LT min 3V* Date of Service: 12/09/22 [facility] Other XR wrist LT min 3V* XR/XR wrist LT min 3V*: Left wrist pain [facility] Other XR wrist LT min 3V* ([id number]) XR/XR hand LT min 3V*: Left wrist pain [facility] Other XR wrist LT min 3V* 3 views LEFT hand plain film [facility] Other XR wrist LT min 3V* COMPARISON: None [facility] Other XR wrist LT min 3V* HISTORY: LEFT hand injury. Pain involving the distal middle finger. Dorsal wrist pain [facility] Other XR wrist LT min 3V* ACUTE FINDINGS: None [facility] Other XR wrist LT min 3V* DEGENERATIVE CHANGE: Unremarkable [facility] Other XR wrist LT min 3V* SOFT TISSUE FINDINGS : Unremarkable [facility] Other XR wrist LT min 3V* JOINT EFFUSION: None [facility] Other XR wrist LT min 3V* POSTOP CHANGES: None [facility] Other XR wrist LT min 3V* BONY MINERALIZATION: Adequate [facility] Other XR wrist LT min 3V* XR/XR hand LT min 3V* [facility] Other XR wrist LT min 3V* IMPRESSION: No acute findings [facility] Other XR wrist LT min 3V* 4 views LEFT wrist plain film [facility] Other XR wrist LT min 3V* BONE MINERALIZATION: Adequate [facility] Other XR wrist LT min 3V* IMPRESSION: No acute bony findings. [facility] Other XR wrist LT min 3V* Impression dictated by: Misbah Mast M.D.12/09/2022 11:59 AM [facility] Other XR wrist LT min 3V* Dictation Location: [place] [address] [facility] Other XR wrist LT min 3V* Transcribed By: DOMINIQUE 12/09/22 1159 [facility] Other XR wrist LT min 3V* Dictated By: Misbah Mast DO 12/09/22 1158 [facility] Other XR wrist LT min 3V* Signed By: [facility] Other XR wrist LT min 3V* 12/09/22 1159 No rt [employer] Other XR wrist LT min 3V* [facility] [place] [address] [place] [address] XRay Report Signed Patient: Edwige Sierra MR#: [id number] : 2000 Acct:[id number] Age/Sex: 22 / F ADM Date: 12/09/22 Loc: XDUC Room: Type: [facility] Attending Dr: Lexy BLAKE Copies to: LOU Hernandez Ordering Provider: LOU Hernandez Date of Service: 12/09/22 XR/XR wrist LT min 3V*: Left wrist pain ([id number]) XR/XR hand LT min 3V*: Left wrist [...] Misbah Mast M.D.12/09/2022 11:59 AM Dictation Location: [place] [address] Transcribed By: [facility] 12/09/22 1159 Dictated By: Misbah Mast DO 12/09/22 1158 Signed By: 12/09/22 1159 Normal [facility] A1C with Estimated Average G ugo 08-14-2022 HbA1c (Bld) [Mass fraction] 5.200 % Normal 4.3-5.6 % [facility] [employer] Other HbA1c (Bld) [Mass fraction] 103 mg/dL [facility] [employer] Other Glucose [Mass/Vol] 103 mg/dL Normal [facility] Comment on above: Result Comment: PERF ORMED BY: [facility] [address] [place] [address] PATHOLOGIST TIP FINISHER KULWANT GOMEZ M.D. Performed By: #### C BC, TSH3, CMP, A1C WTH eA, LIPID #### [facility] [address] HbA1c (Bld) [Mass fraction] 5.2 % Normal 4.3-5.6 [facility] Comment on above: Result Comment: Incr eased risk for diabetes: 5.7 - 6.4 diabetes: >6.4 glycemic control for adults with diabetes: <7.0 Performed By: #### C BC, TSH3, CMP, A1C WT eA, LIPID #### [facility] [address] [place] [id number] [place] Albumin [Mass/volume] in Ser um or PlasmaOrdered By: Becky Guaman on 08-14-2022 Albumin [Mass/Vol] 3.9 g/dL 3.2-5.5 [facility] Basophils Auto (Bld) [#/Vol] Ordered By: Becky Guaman on 08-14-2022 Basophils (Bld) [#/Vol] 0.0 10*3/uL 0.0-0.2 [facility] Basophils/100 WBC Auto (Bld) Ordered By: Becky Guaman on 08-14-2022 Basophils/100 WBC (Bld) 0.6 % . F [facility] Cholesterol [Mass/volume] in Serum or PlasmaOrdered By: Becky Guaman on 08-14-2022 Cholesterol [Mass/Vol] 195 mg/dL Normal 140-2 00 mg/dL [facility] Comment on above: Chol less than 200 m g/dl low riskChol 201-239 mg/dl borderline riskChol 240 mg/dl and greater high risk Cholesterol in LDL Calc [Mas s/Vol]Ordered By: Becky Guaman on 08-14-2022 Cholesterol in LDL [Mass/Vol] 146 mg/dL 0-100 [facility] Comment on above: LDL ATP III CLASSIFI CATIONLDL less than 100 mg/dL OptimalLDL 100-129 mg/dL Near or above optimalLDL 130-159 mg/dL Borderline highLDL 160-189 mg/dL HighLDL greater than 189 mg/dL Very high Cholesterol in VLDL Calc [Ma ss/Vol]Ordered By: Becky Guaman on 08-14-2022 Cholesterol in VLDL [Mass/Vol] 16 mg/dL [facility] Complete Blood Count Auto Di ffon 08-14-2022 Basophils (Bld) [#/Vol] 0.551622318 10*3/uL Normal 0.0-0.2 10*3/uL [facility] Other Basophils/100 WBC (Bld) 0.600 % . % N [facility] [employer] Other Eosinophils (Bld) [#/Vol] 0.168796488 10*3/uL Normal 0.0-0.45 10*3/uL [facility] Other Eosinophils/100 WBC (Bld) 2.300 % . % [facility] Other Erythrocyte distribution width (RBC) [Ratio] 12.400 % Normal 11.9-15.3 % [facility] Other Hematocrit (Bld) [Volume fraction] 39.700 % Normal 34.0-46.4 % [facility] Other Hemoglobin (Bld) [Mass/Vol] 13.475617 g/dL Normal 11.8-15.4 g/dL [facility] Other Lymphocytes (Bld) [#/Vol] 1.846660856 10*3/uL Normal 1.00-4.8 10*3/uL [facility] Other Lymphocytes/100 WBC (Bld) 22.500 % . % [facility] Other MCH (RBC) [Entitic mass] 30.2000 pg Normal 24.7-34.3 pg [facility] Other MCV (RBC) [Entitic vol] 90.5000 fL Normal 80-100 fL N [employer] Other Monocytes (Bld) [#/Vol] 0.749421055 10*3/uL Normal 0.0-0.8 10*3/uL [facility] Other Monocytes/100 WBC (Bld) 6.800 % . % N [facility] [employer] Other Neutrophils (Bld) [#/Vol] 3.918244588 10*3/uL Normal 1.8-7.7 10*3/uL [facility] Other Neutrophils/100 WBC (Bld) 67.800 % . % [facility] Other Platelet mean volume (Bld) [Entitic vol] 9.0000 fL Normal 6.3-10.7 fL [facility] Other WBC (Bld) [#/Vol] 5.554713499 10*3/uL Normal 3.8 -11.6 10*3/uL [facility] Other Complete Blood Count Auto Diff 5.6 10*3/uL Normal 3.8-11.6 10*3/uL [facility] Other Complete Blood Count Auto Diff 33.4 g/dL Normal 32.0-35.0 g/dL [facility] Other Complete Blood Count Auto Diff 0.3 /100{WBC} Normal 0-0.5 /100{WBC} [facility] Other Basophils (Bld) [#/Vol] 0.0 10*3/uL Normal 0.0-0.2 [facility] Comment on above: Result Comment: PERF ORMED BY: [facility] [address] [place] [address] PATHOLOGIST TIP FINISHER KULWANT GMOEZ M.D. Performed By: #### C BC, TSH3, CMP, A1C [facility] eA, LIPID #### [facility] [address] [place] [id number] [place] Basophils/100 WBC (Bld) 0.6 % Normal . F [facility] Comment on above: Performed By: #### C BC, TSH3, CMP, A1C WT eA, LIPID #### [facility] [address] [place] [id number] [place] Eosinophils (Bld) [#/Vol] 0.1 10*3/uL Normal 0.0-0.45 [facility] Comment on above: Performed By: #### C BC, TSH3, CMP, A1C WTH eA, LIPID #### [address] Eosinophils/100 WBC (Bld) 2.3 % Normal . [facility] Comment on above: Performed By: #### C BC, TSH3, CMP, A1C WTH eA, LIPID #### [address] Erythrocyte distribution width (RBC) [Ratio] 12.4 % Normal 11.9-15.3 [facility] Comment on above: Performed By: #### C BC, TSH3, CMP, A1C WTH eA, LIPID #### [address] Hematocrit (Bld) [Volume fraction] 39.7 % Normal 34.0-46.4 [facility] Comment on above: Performed By: #### C BC, TSH3, CMP, A1C WTH eA, LIPID #### [address] Hemoglobin (Bld) [Mass/Vol] 13.2 g/dL Normal 11.8-15.4 [facility] Comment on above: Performed By: #### C BC, TSH3, CMP, A1C WTH eA, LIPID #### [address] Lymphocytes (Bld) [#/Vol] 1.3 10*3/uL Normal 1.00-4.8 [facility] Comment on above: Performed By: #### C BC, TSH3, CMP, A1C WTH eA, LIPID #### [place] [address] [place] Lymphocytes/100 WBC (Bld) 22.5 % Normal . [facility] Comment on above: Performed By: #### C BC, TSH3, CMP, A1C WTH eA, LIPID #### [place] [address] [place] MCH (RBC) [Entitic mass] 30.2 pg Normal 24.7-34.3 [facility] Comment on above: Performed By: #### C BC, TSH3, CMP, A1C WTH eA, LIPID #### [facility] [address] MCV (RBC) [Entitic vol] 90.5 fL Normal 80-100 F [facility] Comment on above: Performed By: #### C BC, TSH3, CMP, A1C WTH eA, LIPID #### [address] Mean Corpuscular HGB Conc 33.4 g/dL Normal 32.0-35.0 [facility] Comment on above: Performed By: #### C BC, TSH3, CMP, A1C WTH eA, LIPID #### [address] Monocytes (Bld) [#/Vol] 0.4 10*3/uL Normal 0.0-0.8 [facility] Comment on above: Performed By: #### C BC, TSH3, CMP, A1C WTH eA, LIPID #### [address] Monocytes/100 WBC (Bld) 6.8 % Normal . F [facility] Comment on above: Performed By: #### C BC, TSH3, CMP, A1C WTH eA, LIPID #### [place] [address] [place] Neutrophils (Bld) [#/Vol] 3.8 10*3/uL Normal 1.8-7.7 [facility] Comment on above: Performed By: #### C BC, TSH3, CMP, A1C WTH eA, LIPID #### [facility] [address] [place] [address] [place] Neutrophils/100 WBC (Bld) 67.8 % Normal . [facility] Comment on above: Performed By: #### C BC, TSH3, CMP, A1C WTH eA, LIPID #### [place] [address] [place] NRBC% 0.3 /100{WBC} Normal 0-0.5 [facility] Comment on above: Performed By: #### C BC, TSH3, CMP, A1C WTH eA, LIPID #### [facility] [address] Platelet mean volume (Bld) [Entitic vol] 9.0 fL Normal 6.3-10.7 [facility] Comment on above: Performed By: #### C BC, TSH3, CMP, A1C WTH eA, LIPID #### [facility] Ctr [address] Platelets (Bld) [#/Vol] 232 10*3/uL Normal 150-450 [facility] Comment on above: Performed By: #### C BC, TSH3, CMP, A1C WTH eA, LIPID #### [facility] [address] RBC (Bld) [#/Vol] 4.38 10*6/uL Normal 3.60-5.00 [facility] Comment on above: Performed By: #### C BC, TSH3, CMP, A1C WTH eA, LIPID #### [facility] [address] WBC (Bld) [#/Vol] 5.6 10*3/uL Normal 3.8-11.6 [facility] Comment on above: Performed By: #### C BC, TSH3, CMP, A1C WTH eA, LIPID #### [facility] [address] Comprehensive Metabolic Pane amandeep 08-14-2022 Albumin [Mass/Vol] 3.367904 g/dL Normal 3.2-5.5 g/dL N [facility] [employer] Other Bilirubin [Mass/Vol] 0.2062669 mg/dL Normal 0.3- 1.2 mg/dL [facility] Other Calcium [Mass/Vol] 9.7687884 mg/dL Normal 8.2-10 .2 mg/dL [facility] Other CO2 [Moles/Vol] 23.65437628 mmol/L Normal 22.0-3 0.0 mmol/L [facility] Other Creatinine [Mass/Vol] 0.86510630 mg/dL Normal 0. 44-1.03 mg/dL [facility] Other Potassium [Moles/Vol] 3.71694588 mmol/L Normal 3 .5-5.1 mmol/L [facility] Other Protein [Mass/Vol] 6.314617 g/dL Normal 6.1-7.9 g/dL N [facility] [employer] Other Comprehensive Metabolic Panel > 60 [facility] [employer] Other Comprehensive Metabolic Panel 2.7 g/dL [facility] Other Albumin [Mass/Vol] 3.9 g/dL Normal 3.2-5.5 [facility] Comment on above: Performed By: #### C BC, TSH3, CMP, A1C WTH eA, LIPID #### [facility] [address] [place] [address] [place] Albumin/Globulin [Mass ratio] 1.4 {ratio} Normal [facility] Comment on above: Performed By: #### C BC, TSH3, CMP, A1C WTH eA, LIPID #### [facility] [address] [place] [address] [place] ALP [Catalytic activity/Vol] 69 U/L Normal 32-92 [facility] Comment on above: Performed By: #### C BC, TSH3, CMP, A1C WTH eA, LIPID #### [facility] [address] [place] [address] [place] ALT [Catalytic activity/Vol] 34 U/L Normal 10-60 [facility] [employer] Other Comment on above: Performed By: #### C BC, TSH3, CMP, A1C WTH eA, LIPID #### [facility] [address] [place] [address] [place] Anion gap [Moles/Vol] 9.7 mmol/L Normal 6.0-15.0 [facility] Comment on above: Performed By: #### C BC, TSH3, CMP, A1C WTH eA, LIPID #### [facility] [address] AST [Catalytic activity/Vol] 30 U/L Normal 10-42 [facility] Comment on above: Performed By: #### C BC, TSH3, CMP, A1C WTH eA, LIPID #### [facility] [address] Bilirubin [Mass/Vol] 0.7 mg/dL Normal 0.3-1.2 [facility] Comment on above: Performed By: #### C BC, TSH3, CMP, A1C WTH eA, LIPID #### [facility] [address] Calcium [Mass/Vol] 9.2 mg/dL Normal 8.2-10.2 [facility] Comment on above: Performed By: #### C BC, TSH3, CMP, A1C WTH eA, LIPID #### [facility] [address] Chloride [Moles/Vol] 108 mmol/L Normal 95-114 [facility] Comment on above: Performed By: #### C BC, TSH3, CMP, A1C WTH eA, LIPID #### [facility] [address] [place] [address] [place] CO2 [Moles/Vol] 23.1 mmol/L Normal 22.0-30.0 [facility] Comment on above: Performed By: #### C BC, TSH3, CMP, A1C WTH eA, LIPID #### [facility] [address] [place] [address] [place] Creatinine [Mass/Vol] 0.75 mg/dL Normal 0.44-1.03 [facility] Comment on above: Performed By: #### C BC, TSH3, CMP, A1C WTH eA, LIPID #### [facility] [address] [place] [address] [place] Estimated GFR ( Queenie > 60 Normal [facility] Comment on above: Result Comment: GFR estimated reference range: According to KDOQI guidelines, <60 ml/min/1.73m2 is sufficient to diagnose a patient with chronic kidney disease. Performed By: #### C BC, TSH3, CMP, A1C WTH eA, LIPID #### [facility] [address] [place] [address] [place] Estimated GFR (Non- Am > 60 Normal [facility] Comment on above: Performed By: #### C BC, TSH3, CMP, A1C WTH eA, LIPID #### [facility] [address] Globulin (S) [Mass/Vol] 2.7 g/dL Normal [facility] Comment on above: Performed By: #### C BC, TSH3, CMP, A1C WTH eA, LIPID #### [facility] [address] Glucose [Mass/Vol] 87 mg/dL Normal 70-100 [facility] Comment on above: Result Comment: [facility] Glucose Reference Range is dependent on time and content of last meal. Glucose of more than 200 mg/dL in a nonstressed, ambulatory subject supports the diagnosis of Diabetes Mellitus. ADA recommended reference range Performed By: #### C BC, TSH3, CMP, A1C WTH eA, LIPID #### [facility] [address] Potassium [Moles/Vol] 3.8 mmol/L Normal 3.5-5.1 [facility] Comment on above: Performed By: #### C BC, TSH3, CMP, A1C WTH eA, LIPID #### [facility] [address] [place] [address] [place] Protein [Mass/Vol] 6.6 g/dL Normal 6.1-7.9 [facility] Comment on above: Performed By: #### C BC, TSH3, CMP, A1C WTH eA, LIPID #### [facility] [address] [place] [address] [place] Sodium [Moles/Vol] 137 mmol/L Normal 136-146 [facility] Comment on above: Performed By: #### C BC, TSH3, CMP, A1C WTH eA, LIPID #### [facility] [address] [place] [id number] [place] Urea nitrogen [Mass/Vol] 5 mg/dL Low 9- [facility] Comment on above: Performed By: #### C BC, TSH3, CMP, A1C WTH eA, LIPID #### [facility] [address] [place] [address] [place] Creatinine and Glomerular fi ltration rate.predicted panel (S/P/Bld)Ordered By: Becky Guaman on 08-14-2022 Creatinine [Mass/Vol] 0.75 mg/dL 0.44-1.03 [facility] Eosinophils Auto (Bld) [#/Vo l]Ordered By: Becky Guaman on 08-14-2022 Eosinophils (Bld) [#/Vol] 0.1 10*3/uL 0.0-0.45 [facility] Eosinophils/100 WBC Auto (Bl d)Ordered By: Becky Guaman on 08-14-2022 Eosinophils/100 WBC (Bld) 2.3 % . [facility] Erythrocyte distribution wid th Auto (RBC) [Ratio]Ordered By: Becky Guaman on 08-14-2022 Erythrocyte distribution width (RBC) [Ratio] 12.4 % 11.9-15.3 [facility] Erythrocytes [#/volume] in B lood by Automated countOrdered By: Becky Guaman on 08-14-2022 RBC (Bld) [#/Vol] 4.38 10*6/uL Normal 3.60-5.00 [facility] Estimated glomerular filtrat ion rate (GFR) non- AmericanOrdered By: Becky Guaman on 08-14-2022 GFR/1.73 sq M.predicted among non-blacks MDRD (S/P/Bld) [Vol rate/Area] > 60 mL/Min [facility] Globulin Calc (S) [Mass/Vol] Ordered By: Becky Guaman on 08-14-2022 Globulin (S) [Mass/Vol] 2.7 g/dL F [facility] Hematocrit Auto (Bld) [Volum e fraction]Ordered By: Becky Guaman on 08-14-2022 Hematocrit (Bld) [Volume fraction] 39.7 % 34.0-46.4 [facility] Hemoglobin [Mass/volume] in BloodOrdered By: Becky Guaman on 08-14-2022 Hemoglobin (Bld) [Mass/Vol] 13.2 g/dL 11.8-15.4 [facility] Leukocytes [#/volume] correc kalyani for nucleated erythrocytes in Blood by Automated counOrdered By: Becky Guaman on 08-14-2022 WBC corrected for nucl RBC Auto (Bld) [#/Vol] 5.6 10*3/uL 3.8-11.6 [facility] Lipid Panelon 08-14-2022 Cholesterol in LDL Elph Qn 146 mg/dL High 0-100 mg/dL [facility] [employer] Other Lipid Panel 84 mg/dL Normal 35-149 mg/dL [facility] [employer] Other Lipid Panel 16 mg/dL [facility] [employer] Other Cholesterol [Mass/Vol] 195 mg/dL Normal 140-200 [facility] Comment on above: Result Comment: Chol less than 200 mg/dl low risk Chol 201-239 mg/dl borderline risk Chol 240 mg/dl and greater high risk Performed By: #### C BC, TSH3, CMP, A1C WTH eA, LIPID #### [facility] [address] [place] [address] [place] Cholesterol in HDL [Mass/Vol] 32 mg/dL Low 35-85 [facility] Comment on above: Result Comment: HDL CHOL ATP-III CLASSIFICATION Cardiovascular Risk HDL > or equal to 60 mg/dL LOW HDL < 40 mg/dL HIGH Performed By: #### C BC, TSH3, CMP, A1C WTH eA, LIPID #### [facility] [address] [place] [id number] [facility] Cholesterol.total/Vero sterol in HDL [Mass ratio] 6.1 {ratio} Normal <5.0 [facility] Comment on above: Performed By: #### C BC, TSH3, CMP, A1C WTH eA, LIPID #### [facility] [address] LDL Cholesterol,Calculated 146 mg/dL High 0-100 [facility] Comment on above: Result Comment: LDL ATP III CLASSIFICATION LDL less than 100 mg/dL Optimal LDL 100-129 mg/dL Near or above optimal LDL 130-159 mg/dL Borderline high LDL 160-189 mg/dL High LDL greater than 189 mg/dL Very high Performed By: #### C BC, TSH3, CMP, A1C WT eA, LIPID #### [facility] [address] Triglyceride w/Reflex 84 mg/dL Normal 35-149 [facility] Comment on above: Result Comment: TRIG ATP III CLASSIFICATION TRIG less than 150 mg/dL Normal TRIG 150-199 mg/dL Borderline high TRIG 200-500 mg/dL High TRIG greater than 500 mg/dL Very high Standard traceable to the Center for Disease Conrtrol and Prevention (CDC) test method. Performed By: #### C BC, TSH3, CMP, A1C WT eA, LIPID #### [facility] [address] VLDL CHOLESTEROL 16 mg/dL Normal [facility] Comment on above: Performed By: #### C BC, TSH3, CMP, A1C [facility] eA, LIPID #### [facility] [address] [place] [id number] [facility] Lymphocytes Auto (Bld) [#/Vo l]Ordered By: Becky Guaman on 08-14-2022 Lymphocytes (Bld) [#/Vol] 1.3 10*3/uL 1.00-4.8 [facility] Lymphocytes/100 WBC Auto (Bl d)Ordered By: Becky Guaman on 08-14-2022 Lymphocytes/100 WBC (Bld) 22.5 % . [facility] MCH Auto (RBC) [Entitic mass ]Ordered By: Becky Guaman on 08-14-2022 MCH (RBC) [Entitic mass] 30.2 pg 24.7-34.3 [facility] MCHC Auto (RBC) [Mass/Vol]Or dered By: Becky Guaman on 08-14-2022 MCHC (RBC) [Mass/Vol] 33.4 g/dL 32.0-35.0 [facility] MCV Auto (RBC) [Entitic vol] Ordered By: Becky Guaman on 08-14-2022 MCV (RBC) [Entitic vol] 90.5 fL 80-100 F [facility] Monocytes Auto (Bld) [#/Vol] Ordered By: Becky Guaman on 08-14-2022 Monocytes (Bld) [#/Vol] 0.4 10*3/uL 0.0-0.8 [facility] Monocytes/100 WBC Auto (Bld) Ordered By: Becky Guaman on 08-14-2022 Monocytes/100 WBC (Bld) 6.8 % . [facility] Neutrophils Auto (Bld) [#/Vo l]Ordered By: Becky Guaman on 08-14-2022 Neutrophils (Bld) [#/Vol] 3.8 10*3/uL 1.8-7.7 [facility] Neutrophils/100 WBC Auto (Bl d)Ordered By: Becky Guaman on 08-14-2022 Neutrophils/100 WBC (Bld) 67.8 % . [facility] No Panel InformationOrdered By: Becky Guaman on 08-14-2022 Estimated GFR () > 60 mL/Min [facility] Comment on above: GFR estimated refere nce range: According to KDOQI guidelines, <60 ml/min/1.73m2 is sufficient to diagnose a patient with chronic kidney disease. Pharmacy Creatinine Clearance (Chem N/A [facility] Nucleated erythrocytes [Pres ence] in Blood by Automated countOrdered By: Becky Guaman on 08-14-2022 Nucleated RBC Auto Ql (Bld) 0.3 /100{WBC} 0-0.5 [facility] Platelet mean volume Auto (B ld) [Entitic vol]Ordered By: Becky Guaman on 08-14-2022 Platelet mean volume (Bld) [Entitic vol] 9.0 fL 6.3-10.7 [facility] Platelets [#/volume] in Bloo d by Automated countOrdered By: Becky Guaman on 08-14-2022 Platelets (Bld) [#/Vol] 232 10*3/uL Normal 150- 450 10*3/uL [facility] Protein [Mass/volume] in Ser um or PlasmaOrdered By: Becky Guaman on 08-14-2022 Protein [Mass/Vol] 6.6 g/dL 6.1-7.9 [facility] Serum or plasma alanine kinsey otransferase measurement without P-5'-P (enzymatic activiOrdered By: Becky Guaman on 08-14-2022 ALT No additional P-5'-P [Catalytic activity/Vol] 34 U/L 10-60 [facility] Serum or plasma albumin/glob ulin mass ratioOrdered By: Becky Guaman on 08-14-2022 Albumin/Globulin [Mass ratio] 1.4 {ratio} [facility] Serum or plasma alkaline jean claude sphatase measurement (enzymatic activity/volume)Ordered By: Becky Guaman on 08-14-2022 ALP [Catalytic activity/Vol] 69 U/L Normal 32-92 U/L [facility] Serum or plasma anion gap de terminationOrdered By: Becky Guaman on 08-14-2022 Anion gap [Moles/Vol] 9.7 mmol/L 6.0-15.0 [facility] Serum or plasma aspartate am inotransferase measurement (enzymatic activity/volume)Ordered By: Becky Guaman on 08-14-2022 AST [Catalytic activity/Vol] 30 U/L Normal 10-42 U/L [facility] Serum or plasma calcium daily urement (mass/volume)Ordered By: Becky Guaman on 08-14-2022 Calcium [Mass/Vol] 9.2 mg/dL 8.2-10.2 [facility] Serum or plasma chloride julisa surement (moles/volume)Ordered By: Becky Guaman on 08-14-2022 Chloride [Moles/Vol] 108 mmol/L Normal 95-114 mmol/L [facility] Serum or plasma glucose daily urement (mass/volume)Ordered By: Becky Guaman on 08-14-2022 Glucose [Mass/Vol] 87 mg/dL Normal 70-100 mg/dL [facility] Comment on above: ADA recommended refe rence rangeRandom Glucose Reference Range is dependent on time and content of last meal. Glucose of more than 200 mg/dL in a nonstressed, ambulatory subject supports the diagnosis of Diabetes Mellitus. Serum or plasma high density lipoprotein (HDL) cholesterol measurementOrdered By: Becky Guaman on 08-14-2022 Cholesterol in HDL [Mass/Vol] 32 mg/dL Low 35-85 mg/dL [facility] Comment on above: HDL CHOL ATP-III CLA SSIFICATION Cardiovascular RiskHDL > or equal to 60 mg/dL LOWHDL < 40 mg/dL HIGH Serum or plasma potassium me asurement (moles/volume)Ordered By: Becky Guaman on 08-14-2022 Potassium [Moles/Vol] 3.8 mmol/L 3.5-5.1 [facility] Serum or plasma sodium measu rement (moles/volume)Ordered By: Becky Guaman on 08-14-2022 Sodium [Moles/Vol] 137 mmol/L Normal 136-146 mmol/L [facility] Serum or plasma total biliru bin measurement (mass/volume)Ordered By: Becky Guaman on 08-14-2022 Bilirubin [Mass/Vol] 0.7 mg/dL 0.3-1.2 [facility] Serum or plasma total carbon dioxide measurement (moles/volume)Ordered By: Becky Guaman on 08-14-2022 CO2 [Moles/Vol] 23.1 mmol/L 22.0-30.0 [facility] Serum or plasma total choles terol/high density lipoprotein (HDL) cholesterol mass ratOrdered By: Becky Guaman on 08-14-2022 Cholesterol.total/Vero sterol in HDL [Mass ratio] 6.1 {ratio} <5.0 [facility] Serum or plasma urea nitroge n measurement (mass/volume)Ordered By: Becky Guaman on 08-14-2022 Urea nitrogen [Mass/Vol] 5 mg/dL Low 9-23 mg/dL [facility] TSH DL <= 0.005 mIU/L QnOrde red By: Becky Guaman on 08-14-2022 TSH Qn 1.77 m[IU]/L 0.45-5.33 [facility] Thyroid Stimulating Hormoneo n 08-14-2022 TSH Qn 1.77 m[IU]/L Normal 0.45-5.33 [facility] Comment on above: Result Comment: PERF ORMED BY: [place] [address] PATHOLOGIST TIP FINISHER KULWANT GOMEZ M.D. Performed By: #### C BC, TSH3, CMP, A1C WTH eA, LIPID #### [facility] [address] Triglyceride [Mass/volume] i n Serum or PlasmaOrdered By: Becky Guaman on 08-14-2022 Triglyceride [Mass/Vol] 84 mg/dL 35-149 F [facility] Comment on above: TRIG ATP III CLASSIF ICATIONTRIG less than 150 mg/dL NormalTRIG 150-199 mg/dL Borderline highTRIG 200-500 mg/dL High TRIG greater than 500 mg/dL Very highStandard traceable to the Center for Disease Conrtrol and Prevention (CDC) test method. WBC Auto (Bld) [#/Vol]Ordere d By: Becky Guaman on 08-14-2022 WBC (Bld) [#/Vol] 5.6 10*3/uL 3.8-11.6 [facility] XR chest 2V*on 08-13-2022 XR chest 2V* [facility] [address] [place] [address] [place] [address] XRay Report Signed Patient: Edwige Sierra MR#: [id number] : 2000 Acct:[id number] Age/Sex: 22 / F ADM Date: 08/13/22 Loc: [facility] Room: Type: [facility] Attending Dr: Becky Guaman DO Copies to: Bekcy Guaman DO Ordering Provider: Becky Guaman DO [...] Misbah Mast M.D.08/13/2022 3:23 PM Dictation Location: [place] [address] Transcribed By: [facility] 08/13/22 1523 Dictated By: Misbah Mast DO 08/13/22 1522 Signed By: 08/13/22 1523 Normal [facility] XR chest 2V* [facility] [employer] Other XR chest 2V* [facility] Main [facility] [employer] Other XR chest 2V* [address] [place] [address] [employer] Other XR chest 2V* [place] [address] [facility] [employer] Other XR chest 2V* XRay Report [facility] Other XR chest 2V* Signed [facility] Other XR chest 2V* Patient: Edwige Sierra MR#: [id number] [facility] Other XR chest 2V* [id number] [facility] Other XR chest 2V* : 2000 Acct:[id number] [facility] Other XR chest 2V* Age/Sex: 22 / F ADM Date: 08/13/22 [facility] Other XR chest 2V* Loc: [facility] Room: Type : [facility] Other XR chest 2V* Attending Dr: Diane Guaman DO [facility] Other XR chest 2V* Copies to: Becky Guaman, DO [facility] Other XR chest 2V* Ordering Provider: Becky Guaman, DO [facility] Other XR chest 2V* Date of Service: 08/13/22 [facility] Other XR chest 2V* XR/XR chest 2V*: Cough, unspecified type [facility] Other XR chest 2V* Plain film chest2 view [facility] Other XR chest 2V* HISTORY:Productive cough. Wheezing. [facility] Other XR chest 2V* COMPARISON:None [facility] [employer] Other XR chest 2V* FINDINGS: The cardiac, mediastinal and hilar silhouettes are within normal limits. No acute lung [facility] Other XR chest 2V* process, pleural effusion or pneumothorax identified. Bony structures are intact. [facility] Other XR chest 2V* XR/XR chest 2V* [facility] Other XR chest 2V* IMPRESSION: No acute process. [facility] Other XR chest 2V* Impression dictated by: Misbah Mast M.D.08/13/2022 3:23 PM [facility] Other XR chest 2V* Dictation Location: [place] [address] [facility] Other XR chest 2V* Transcribed By: DOMINIQUE 08/13/22 [facility] Other XR chest 2V* Dictated By: Misbah Mast DO 08/13/22 [facility]2 [facility] Other XR chest 2V* Signed By: [facility] Other XR chest 2V* 08/13/22 1523 [facility] [employer] Other Quick Strepon 02-08-2022 S. pyogenes Org specific cx Ql (Throat) Positive [facility] [employer] Other Quick Strep Quid [facility] [employer] Other COVID Quick Testingon 2021 Result Negative [facility] Other COVID + FLU Quick Testingon 07-03-2021 SARS-CoV-2 (COVID-19) RNA THA+probe Ql (Unsp spec) Positive [facility] Other COVID + FLU Quick Testing Negative [facility] Other Q - THINPREP(R) TIS AND HPV MRNA E6/E7 RFL HPV 16/18/45on 06-20-2021 CLINICAL INFORMATION: None given Normal Nor [facility] Specialist Comment on above: Order Comment: [facility] Testing performed at: [facility], [address] [place] [address], [address] [place] [address], [phone], Application Services Manager: Ramana Taylor MD Testing performed at: [facility], [address] [place] [address], [phone], Application Services Manager: Mani Anderson [facility] Collection Date/Time: [id number] [facility] Results Received Date/Time: [facility] Reported Date/Time: FASTING: UNKNOWN Result Comment: [Q ] Performed By: #### 9 1414 #### [facility] Default [address] [place] [address] COMMENT SEE NOTE Normal [facility] [employer] Director Comment on above: Order Comment: [facility] Testing performed at: [facility], [address] [place] [address], [phone], Application Services Manager: Ramana Taylor MD Testing performed at: [facility], [address] [place] [address], [phone], Application Services Manager: Mani Anderson [facility] Collection Date/Time: [id number] [facility] Results Received Date/Time: [facility] Reported Date/Time: [...] 9 1414 #### [facility] Default [address] [place] [id number] COMMENT: This Pap test has been evaluated with computer assisted technology. Normal [facility] Specialist Comment on above: Order Comment: [facility] Testing performed at: [facility], [address] [place] [address], [address] [place] [address], [address] [place] [address], Application Services Manager: Ramana Taylor MD Testing performed at: [facility], [address] [place] [address], [address] [place] [address], Application Services Manager: Mani Anderson [facility] Collection Date/Time: [facility] Results Received Date/Time: [facility] Reported Date/Time: FASTING: UNKNOWN Result Comment: [QBU ] Performed By: #### 9 1414 #### [facility] Default [address] [place] [address] DEFECT REPAIRER GLASSWARE: SEE NOTE Normal See Note: [facility] Comment on above: Order Comment: [facility] Testing performed at: [facility], [address] [place] [address], [address] [place] [address], [phone], Application Services Manager: Ramana Taylor MD Testing performed at: [facility], [address] [place] [address], [address] [place] [address], Application Services Manager: Mani Anderosn [facility] Collection Date/Time: [id number] [facility] Results Received Date/Time: [facility] Reported Date/Time: FASTING: UNKNOWN Result Comment: Refe rence Range: ZL, CT(ASCP) CT screening location: [place] [address]. [QBU] Performed By: #### 9 1414 #### [facility] Default [address] [place] [address] GENERAL CATEGORIZATION: EPITHELIAL CELL ABNORMALITY Abnormal [facility] Comment on above: Order Comment: [facility] Testing performed at: [facility] [address], [address] [place] [address], [address] [place] [address], Application Services Manager: Ramana Taylor MD Testing performed at: [facility], [address] [place] [address], [phone], Application Services Manager: Mani Anderson [facility] Collection Date/Time: [facility] Results Received Date/Time: [facility] Reported Date/Time: FASTING: UNKNOWN Result Comment: [QBU ] Performed By: #### 9 1414 #### [facility] Default [address] [place] [address] HPV mRNA E6/E7 Detected Abnormal Not Detected [facility] [facility] Comment on above: Order Comment: [facility] Testing performed at: [facility] [address], [address] [place] [address], [address] [place] [address], Application Services Manager: Ramana Taylor MD Testing performed at: [facility], [address] [place] [address], [phone], Application Services Manager: Mani Anderson Quest Collection Date/Time: [facility] Results Received Date/Time: [facility] Reported Date/Time: FASTING: UNKNOWN Result Comment: Meth odology: Sugar Reprocess Operator Head-Mediated Amplification This assay detects E6/E7 viral messenger RNA (mRNA) from 14 high-risk HPV types (16,18,31,33,35,39,45,51,52,56,58,59,66,68). The analytical performance characteristics of this assay have been determined by [facility]. The modifications have not been cleared or approved by the FDA. This assay has been validated pursuant to the CLIA regulations and is used for clinical purposes. For additional information, please refer to http://education.Brain Sentry/faq/FTD328r2 (This link if provided for information/ educational purposes only.) [O6K] Performed By: #### 9 1414 #### [facility] Default [address] [place] [address] INTERPRETATION/RESULT: Atypical Squamous Cells of Undetermined Significance (ASC-US) Abnormal [facility] [employer] Commission Director Comment on above: Order Comment: [facility] Testing performed at: [facility], [address] [place] [address], [address] [place] [address], [address] [place] [address], Application Services Manager: Ramana Taylor MD Testing performed at: [facility], [address] [place] [address], [phone], Application Services Manager: Mani Anderson Quest Collection Date/Time: [facility] Results Received Date/Time: [facility] Reported Date/Time: FASTING: UNKNOWN Result Comment: [QBU ] Performed By: #### 9 1414 #### [facility] [address] [place] [address] LMP: None given Normal [facility] Specialist Comment on above: Order Comment: [facility] Testing performed at: [facility], [address] [place] [address], [address] [place] [address], [address] [place] [address], Application Services Manager: Ramana Taylor MD Testing performed at: [facility], [address] [place] [address], [phone], Application Services Manager: Mani Anderson Quest Collection Date/Time: [id number] [facility] Results Received Date/Time: [facility] Reported Date/Time: FASTING: UNKNOWN Result Comment: [QBU ] Performed By: #### 9 1414 #### [facility] [address] [place] [address] PATHOLOGIST: SEE NOTE Normal [facility] Aeronautics Commission Director Comment on above: Order Comment: [facility] Testing performed at: [facility], [address] [place] [address], [address] [place] [address], [address] [place] [address], Application Services Manager: Ramana Taylor MD Testing performed at: [facility], [address] [place] [address], [address] [place] [address], Application Services Manager: Mani Anderson Quest Collection Date/Time: [facility] Results Received Date/Time: [facility] Reported Date/Time: FASTING: UNKNOWN Result Comment: Vance Anderson MD, PhD, M.B.A. Board Certified in Anatomic and Clinical Pathology Board Certified in Cytopathology (electronic signature) For questions regarding this report call Anatomic Pathology at [phone] [[facility]] Performed By: #### 9 1414 #### [facility] Default [address] [place] [address] PREV. BX: None given Normal [facility] Comment on above: Order Comment: [facility] Testing performed at: [facility], [address] [place] [address], [address] [place] [address], Application Services Manager: Ramana Taylor MD Testing performed at: [facility], [address] [place] [address], [address] [place] [address], Application Services Manager: Mani Anderson Quest Collection Date/Time: [facility] Results Received Date/Time: [facility] Reported Date/Time: FASTING: UNKNOWN Result Comment: [[facility] ] Performed By: #### 9 1414 #### [facility] [address] [place] [id number] PREV. PAP: None given Normal [facility] Comment on above: Order Comment: [facility] Testing performed at: [facility], [address] [place] [address], [address] [place] [address], [address] [place] [address], Application Services Manager: Ramana Taylor MD Testing performed at: [facility], [facility], [address] [place], [place], [address] [place] [address], Application Services Manager: Mani Anderson Quest Collection Date/Time: [id number] [facility] Results Received Date/Time: [facility] Reported Date/Time: FASTING: UNKNOWN Result Comment: [QBU ] Performed By: #### 9 1414 #### [facility] [address] [place] [address] SOURCE: None given Normal [facility] Comment on above: Order Comment: [facility] Testing performed at: [employer], [facility], [address] [place] [address], [address] [place] [address], [address] [place] [address], Application Services Manager: Ramana Taylor MD Testing performed at: [employer], [facility], [address] [place] [address], [address] [place] [address], Application Services Manager: Mani Anderson Quest Collection Date/Time: [facility] Results Received Date/Time: [facility] Reported Date/Time: FASTING: UNKNOWN Result Comment: [QBU ] Performed By: #### 9 1414 #### [facility] [address] [place] [address] STATEMENT OF ADEQUACY: SEE NOTE Normal [facility] Comment on above: Order Comment: [facility] Testing performed at: [employer], [facility], [address] [place] [address], [address] [place] [address], [address] [place] [address], Application Services Manager: Ramana Taylor MD Testing performed at: [employer], [facility], [address] [place] [address], [address] [place] [address], Application Services Manager: Mani Anderson Quest Collection Date/Time: [facility] Results Received Date/Time: [facility] Reported Date/Time: FASTING: UNKNOWN Result Comment: Sati sfactory for evaluation. Endocervical/transformation zone component present. [QBU] Performed By: #### 9 1414 #### [facility] [address] [place] [address] XR Finger Lefton 06-20-2021 XR Finger Left FINDINGS: PIP soft tissue swelling. Minimally distracted volar plate fracture, middle phalangeal base. Minimal arthritis. IMPRESSION: Minimally distracted 4th PIP joint volar plate fracture Report reported and signed by Hubert Lewis on 06/20/2021 1443 Normal [place] Aeronautics Commission Director PREG HCG QUALon 05-19-2020 , QUAL Negative Normal NEGATIVE [facility] Comment on above: Performed By: #### P REG #### [facility] [address] [place] [id number] Liam Ayala COVID-19 PCRon 05-14-2020 SARS-CoV-2 (COVID-19) RNA THA+probe Ql (Unsp spec) Not detected Normal Not Detected [facility] Comment on above: Result Comment: This nucleic acid amplification test was developed and its performance characteristics determined by [employer]. Nucleic acid amplification tests include PCR and [...] [facility] [address] [place], [place] [address] Liam Ayala PRIORITY COVID PROCESSINGon 05-14-2020 Comment Comment Normal [facility] Comment on above: Result Comment: Rece ived Performed By: #### C VDSTAT, CVDPCR #### [facility] [address] [place], [place] [address] Liam Ayala Vital Signs Date Time Vital Sign Value Performing Clinician Facility 02-14-2025 17:17-0400 Body height 167.6 cm Jovita ROBERTS Work Phone: [facility] 02-14-2025 17:17-0400 Body mass index (BMI) [Ratio] 38.9 kg/m2 Jovita Salas CNM Work Phone: [facility] 02-14-2025 17:17-0400 Body weight 109.32 kg Jovita Salas CNM Work Phone: [facility] 02-14-2025 17:17-0400 Diastolic blood pressure 78 mm[Hg] Jovita Rosarioo CNM Work Phone: [facility] 02-14-2025 17:17-0400 Heart rate 78 /min Jovita Rosarioo CNM Work Phone: [facility] 02-14-2025 17:17-0400 Respiratory rate 18 /min Jovita Salas CNM Work Phone: [facility] 02-14-2025 17:17-0400 SaO2% (BldA) [Mass fraction] 98 % Jovita Salas CNM Work Phone: [facility] 02-14-2025 17:17-0400 Systolic blood pressure 130 mm[Hg] Joviat Salas CNM Work Phone: [facility] 01-11-2025 09:15-0400 Body height 170.18 cm Becky Guaman DO Work Phone: [facility] 01-11-2025 09:15-0400 Body mass index (BMI) [Ratio] 37.6 kg/m2 Becky Guaman DO Work Phone: [facility] 01-11-2025 09:15-0400 Body weight 109.1 kg Becky Guaman DO Work Phone: [facility] 12-03-2024 14:00-0400 Heart rate 90 /min Ness Majors SENIOR SOLUTIONS ARCHITECT Work Phone: [facility] 12-03-2024 13:44-0400 Body height 167.6 cm Ness Majors SENIOR SOLUTIONS ARCHITECT Work Phone: [facility] 12-03-2024 13:44-0400 Body mass index (BMI) [Ratio] 39.38 kg/m2 Ness Montez SENIOR SOLUTIONS ARCHITECT Work Phone: [facility] 12-03-2024 13:44-0400 Body weight 110.68 kg Ness Montez SENIOR SOLUTIONS ARCHITECT Work Phone: [facility] 12-03-2024 13:44-0400 Diastolic blood pressure 82 mm[Hg] Ness Montez SENIOR SOLUTIONS ARCHITECT Work Phone: [facility] 12-03-2024 13:44-0400 Respiratory rate 18 /min Ness Montez SENIOR SOLUTIONS ARCHITECT Work Phone: [facility] 12-03-2024 13:44-0400 SaO2% (BldA) [Mass fraction] 97 % Ness Montez SENIOR SOLUTIONS ARCHITECT Work Phone: [facility] 12-03-2024 13:44-0400 Systolic blood pressure 134 mm[Hg] Ness Montez SENIOR SOLUTIONS ARCHITECT Work Phone: [facility] 11-24-2024 13:12-0400 SaO2% (BldA) [Mass fraction] 94 % Becky Pierrefariba DO [facility] Phone[facility] [employer] 11-24-2024 13:00-0400 Body temperature 98.01 [degF] Becky Pierrefariba DO Work Phone: [facility] [employer] 11-24-2024 13:00-0400 Diastolic blood pressure 76 mm[Hg] Becky Ousmane DO Work Phone: [facility] [employer] 11-24-2024 13:00-0400 Heart rate 89 /min Becky Pierrefariba DO Work Phone: [facility] [employer] 11-24-2024 13:00-0400 Respiratory rate 16 /min Becky Pierrefariba DO Work Phone: [facility] [employer] 11-24-2024 13:00-0400 Systolic blood pressure 117 mm[Hg] Becky Ousmane DO Work Phone: [facility] 08-10-2024 16:06-0500 Body height 167.6 cm Jovita ROBERTS Work Phone: [facility] 08-10-2024 16:06-0500 Body mass index (BMI) [Ratio] 39.64 kg/m2 Jovita ROBERTS Work Phone: [facility] 08-10-2024 16:06-0500 Body weight 111.4 kg Jovita ROBERTS Work Phone: [facility] 08-10-2024 16:06-0500 Diastolic blood pressure 70 mm[Hg] Jovita Salas CNM Work Phone: [facility] 08-10-2024 16:06-0500 Systolic blood pressure 118 mm[Hg] Jovita Salas CNM Work Phone: [facility] 08-05-2024 10:19-0500 Body temperature 98.4 [degF] Priyank Gaspar MD Work Phone: [facility] 08-05-2024 10:19-0500 Diastolic blood pressure 56 mm[Hg] Priyank Gaspar MD Work Phone: [facility] 08-05-2024 10:19-0500 Heart rate 114 /min Priyank Gaspar MD Work Phone: [facility] 08-05-2024 10:19-0500 Respiratory rate 18 /min Priyank Gaspar MD Work Phone: [facility] 08-05-2024 10:19-0500 SaO2% (BldA) [Mass fraction] 97 % Priyank Gaspar MD Work Phone: [facility] 08-05-2024 10:19-0500 Systolic blood pressure 97 mm[Hg] Priyank Gaspar MD Work Phone: [facility] [employer] 07-20-2024 18:12-0500 SaO2% (BldA) [Mass fraction] 97 % Yoli Lal MD Work Phone: [employer] 07-20-2024 15:37-0500 Body height 170.2 cm Yoli Lal MD [facility] 07-20-2024 15:37-0500 Body mass index (BMI) [Ratio] 37.59 kg/m2 Yoli Lal MD Work Phone: [facility] [employer] 07-20-2024 15:37-0500 Body temperature 98.29 [degF] Yoli Lal MD Work Phone: [employer] 07-20-2024 15:37-0500 Body weight 108.86 kg Yoli Lal MD Work Phone: [facility] [employer] 07-20-2024 15:37-0500 Diastolic blood pressure 76 mm[Hg] Yoli Lal MD Work Phone: [facility] [employer] 07-20-2024 15:37-0500 Heart rate 100 /min Yoli Lal MD Work Phone: [employer] 07-20-2024 15:37-0500 Respiratory rate 18 /min Yoli Lal MD Work Phone: [facility] [employer] 07-20-2024 15:37-0500 Systolic blood pressure 110 mm[Hg] Yoli Lal MD Work Phone: [facility] 05-24-2024 08:46-0500 Body height 167.6 cm Destinee Britton MD Work Phone: [facility] 05-24-2024 08:46-0500 Body mass index (BMI) [Ratio] 39 kg/m2 Destinee Britton MD Work Phone: [facility] 05-24-2024 08:46-0500 Body weight 109.59 kg Destinee Britton MD Work Phone: [facility] 05-24-2024 08:46-0500 Diastolic blood pressure 74 mm[Hg] Destinee Britton MD Work Phone: [facility] 05-24-2024 08:46-0500 Heart rate 91 /min Destinee Britton MD Work Phone: [facility] 05-24-2024 08:46-0500 Respiratory rate 18 /min Destinee Britton MD Work Phone: [facility] 05-24-2024 08:46-0500 SaO2% (BldA) [Mass fraction] 97 % Destinee Britton MD Work Phone: [facility] 05-24-2024 08:46-0500 Systolic blood pressure 114 mm[Hg] Destinee Britton MD Work Phone: [facility] 05-20-2024 15:22-0500 Body height 167.6 cm Destinee Britton MD Work Phone: [facility] 05-20-2024 15:22-0500 Body mass index (BMI) [Ratio] 39.96 kg/m2 Destinee Britton MD Work Phone: [facility] 05-20-2024 15:22-0500 Body weight 112.31 kg Destinee Britton MD Work Phone: [facility] 05-20-2024 15:22-0500 Diastolic blood pressure 72 mm[Hg] Destinee Britton MD Work Phone: [facility] 05-20-2024 15:22-0500 Heart rate 116 /min Destinee Britton MD Work Phone: [facility] 05-20-2024 15:22-0500 Respiratory rate 18 /min Destinee Britton MD Work Phone: [facility] 05-20-2024 15:22-0500 SaO2% (BldA) [Mass fraction] 99 % Destinee Britton MD Work Phone: [facility] 05-20-2024 15:22-0500 Systolic blood pressure 134 mm[Hg] Destinee Britton MD Work Phone: [facility] 05-10-2024 13:59-0500 Body mass index (BMI) [Ratio] 39.87 kg/m2 Jovita Salas CNM Work Phone: [facility] 05-10-2024 13:59-0500 Body weight 112.04 kg Jovita Salas [facility] Work Phone: [facility] 11-11-2023 14:36-0400 Diastolic blood pressure 76 mm[Hg] [facility] 11-11-2023 14:36-0400 Heart rate 92 /min [facility] 11-11-2023 14:36-0400 Respiratory rate 20 /min [facility] 11-11-2023 14:36-0400 Systolic blood pressure 104 mm[Hg] [facility] 10-10-2023 11:51-0400 Body height 170.18 cm [facility] 10-10-2023 11:51-0400 Body mass index (BMI) [Ratio] 38.2 kg/m2 [facility] 10-10-2023 11:51-0400 Body weight 110.67 kg [facility] 10-10-2023 11:51-0400 Diastolic blood pressure 81 mm[Hg] [facility] 10-10-2023 11:51-0400 Heart rate 78 /min [facility] 10-10-2023 11:51-0400 SaO2% (BldA) [Mass fraction] 96 % [facility] 10-10-2023 11:51-0400 Systolic blood pressure 128 mm[Hg] [facility] 07-09-2023 13:00-0500 Body height 170.18 cm Becky Guaman Other [facility] [employer] Other 07-09-2023 13:00-0500 Body mass index (BMI) [Ratio] 36.96 kg/m2 Becky Guaman Other [facility] [employer] Other 07-09-2023 13:00-0500 Body temperature 97.6 [degF] Becky Guaman Other [facility] [employer] Other 07-09-2023 13:00-0500 Body weight 107.05 kg Becky Guaman Other [facility] Other 07-09-2023 13:00-0500 Diastolic blood pressure 69 mm[Hg] Becky Guaman Other [facility] Other 07-09-2023 13:00-0500 Respiratory rate 20 /min Becky Guaman Other [facility] Other 07-09-2023 13:00-0500 SaO2% (BldA) [Mass fraction] 97 % Becky Guaman Other [facility] Other 07-09-2023 13:00-0500 Systolic blood pressure 109 mm[Hg] Becky Guaman Other [facility] Other 12-09-2022 11:05-0400 Body height 170.18 cm Lexy Abena Other [facility] Other 12-09-2022 11:05-0400 Body mass index (BMI) [Ratio] 38.52 kg/m2 Lexy Abena Other [facility] Other 12-09-2022 11:05-0400 Body temperature 97.8 [degF] Lexy Abena Other [facility] Other 12-09-2022 11:05-0400 Body weight 111.59 kg Lexy Abena Other [facility] Other 12-09-2022 11:05-0400 Respiratory rate 18 /min Lexy Abena Other [facility] Other 12-09-2022 11:05-0400 SaO2% (BldA) [Mass fraction] 98 % Lexy Kraft Other [facility] Other 08-12-2022 16:00-0500 Body height 170.18 cm Becyk Guaman Other [facility] Other 08-12-2022 16:00-0500 Body mass index (BMI) [Ratio] 39.62 kg/m2 Becky Guaman Other [facility] Other 08-12-2022 16:00-0500 Body weight 114.76 kg Becky Guaman Other [facility] Other 08-12-2022 16:00-0500 Diastolic blood pressure 71 mm[Hg] Becky Guaman Other [facility] Other 08-12-2022 16:00-0500 Respiratory rate 16 /min Becky Guaman Other [facility] Other 08-12-2022 16:00-0500 SaO2% (BldA) [Mass fraction] 98 % Becky Guaman Other [facility] Other 08-12-2022 16:00-0500 Systolic blood pressure 107 mm[Hg] Becky Guaman Other [facility] Other 02-08-2022 12:00-0400 Body height 167.64 cm Joselin Wilkins Other [facility] Other 02-06-2022 18:45-0400 Body height 167.64 cm Lexy Kraft Other [facility] Other 02-06-2022 18:45-0400 Body mass index (BMI) [Ratio] 37.12 kg/m2 Lexy Kraft Other [facility] Other 02-06-2022 18:45-0400 Body temperature 97.3 [degF] Lexy Kraft Other [facility] Other 02-06-2022 18:45-0400 Body weight 104.33 kg Lexy Kraft Other [facility] Other 02-06-2022 18:45-0400 Respiratory rate 18 /min Lexy Kraft Other [facility] Other 02-06-2022 18:45-0400 SaO2% (BldA) [Mass fraction] 97 % Lexy Kraft Other [facility] Other Encounters Encounter Date Encounter Type Care Provider Facility Start: 03-16-2025 End: 03-16-2025 ambulatory [facility] Start: 03-15-2025 End: 03-15-2025 Treatment Ryan Barger PRODUCT SAFETY ASSOCIATE [facility] Comment on above: Sacrococcygeal disor ders, not elsewhere classified (Primary Dx) Start: 03-15-2025 End: 03-15-2025 Bamboo flowsheet Ryandestini Barger PRODUCT SAFETY ASSOCIATE [facility] Start: 03-15-2025 End: 03-15-2025 Bamboo flowsheet Ryandestini Barger PRODUCT SAFETY ASSOCIATE [facility] Start: 03-02-2025 End: 03-02-2025 Treatment Ryan Barger PRODUCT SAFETY ASSOCIATE [facility] Comment on above: Sacrococcygeal disor ders, not elsewhere classified (Primary Dx) Start: 03-02-2025 End: 03-02-2025 Bamboo flowsheet Ryan Barger PRODUCT SAFETY ASSOCIATE [facility] Start: 03-02-2025 End: 03-02-2025 Bamboo flowsheet Ryan Jhonatanfab PRODUCT SAFETY ASSOCIATE [facility] Start: 02-28-2025 End: 02-28-2025 Treatment Delia Kwan PT [facility] Comment on above: Sacrococcygeal disor ders, not elsewhere classified (Primary Dx) Start: 02-28-2025 End: 02-28-2025 Bamboo flowsheet Delia Kwan PT [facility] Start: 02-28-2025 End: 02-28-2025 Bamboo flowsheet Delia Kwan PT [facility] Start: 02-23-2025 End: 02-23-2025 ambulatory [facility] Start: 02-21-2025 End: 02-21-2025 ambulatory Ty Fairbanks MD Facility:[facility] Start: 02-15-2025 End: 02-15-2025 ambulatory Kem Costa PRODUCT SAFETY ASSOCIATE [facility] Start: 02-15-2025 End: 02-15-2025 Telephone encounter Destinee Britton MD Work Phone: [facility] Comment on above: Sacrococcygeal disor ders, not elsewhere classified (Primary Dx) Start: 02-14-2025 End: 02-14-2025 Office outpatient visit 15 minutes Jovita Salas CNM [facility] Comment on above: PCOS (polycystic ova melvin syndrome) (Primary Dx); Encounter for initial prescription of contraceptive pills; Insulin resistance Start: 02-14-2025 End: 02-14-2025 Bamboo flowsheet Jovita Salas CNM Work Phone: [facility] Start: 02-14-2025 End: 02-14-2025 Bamboo flowsheet Jovita Rosarioo CNM Work Phone: [facility] Start: 02-01-2025 End: 02-01-2025 Treatment Kem Costa PRODUCT SAFETY ASSOCIATE [facility] Comment on above: Sacrococcygeal disor ders, not elsewhere classified (Primary Dx) Start: 02-01-2025 End: 02-01-2025 Bamboo flowsheet Kem Costa PRODUCT SAFETY ASSOCIATE [facility] Start: 02-01-2025 End: 02-01-2025 Bamboo flowsheet Kem Costa PRODUCT SAFETY ASSOCIATE [facility] Start: 01-27-2025 End: 01-27-2025 Treatment Ofelia Blakely PRODUCT SAFETY ASSOCIATE [facility] Comment on above: Sacrococcygeal disor ders, not elsewhere classified (Primary Dx) Start: 01-27-2025 End: 01-27-2025 Bamboo flowsheet Ofelia Blakely PRODUCT SAFETY ASSOCIATE [facility] Start: 01-27-2025 End: 01-27-2025 Bamboo flowsheet Ofelia Blakely PRODUCT SAFETY ASSOCIATE [facility] Start: 01-24-2025 End: 01-25-2025 Evaluation Delia Kwan PT [facility] Comment on above: Sacrococcygeal disor ders, not elsewhere classified (Primary Dx) Start: 01-24-2025 End: 01-24-2025 Bamboo flowsheet Delia Kwan PT [facility] Start: 01-24-2025 End: 01-24-2025 Bamboo flowsheet Delia Kwan PT [facility] Start: 01-20-2025 End: 01-20-2025 ambulatory [facility] Start: 01-11-2025 End: 01-11-2025 ambulatory Becky Guaman DO Work Phone: [facility] Work Phone: Start: 01-11-2025 End: 01-11-2025 Patient encounter procedure Feliz Musa MD -[facility] Work Phone: Start: 01-06-2025 End: 01-06-2025 ambulatory Becky Guaman DO Work Phone: [facility] Work Phone: Start: 01-06-2025 End: 01-06-2025 Patient encounter procedure Mack Zimmerman [facility] Work Phone: Start: 01-05-2025 End: 01-05-2025 ambulatory Becky Guaman DO Facility:[facility] Start: 12-27-2024 End: 12-27-2024 ambulatory Ty Fairbanks MD Facility:[facility] Start: 12-16-2024 End: 12-16-2024 ambulatory [facility] Start: 12-03-2024 End: 12-03-2024 Telephone encounter Destinee Britton MD Work Phone: [facility] Start: 12-03-2024 End: 12-03-2024 Office outpatient visit 25 minutes Ness [place]z [employer]CHITECT Work Phone: [facility] Comment on above: Nausea (Primary Dx); Pain of upper abdomen Start: 12-01-2024 Non-patient / Non-visit Lacey Morton [facility] Work Phone: Start: 11-24-2024 End: 11-24-2024 Emergency department patient visit BECKY GUAMAN [facility] Emergency Department Comment on above: Acute exacerbation o f chronic low back pain (Primary Dx) Start: 11-11-2024 End: 11-11-2024 ambulatory CHAD Giordano [facility] Start: 10-14-2024 End: 10-14-2024 ambulatory CHAD Giordano [facility] Start: 09-17-2024 End: 09-17-2024 ambulatory NUBIA STEPHENS [facility] Start: 09-16-2024 End: 09-16-2024 ambulatory [facility] Start: 09-13-2024 End: 09-13-2024 ambulatory Ty Fairbanks MD Facility:[facility] Start: 08-30-2024 End: 08-30-2024 ambulatory Andcirilo Fairbanks MD Facility:[facility] Start: 08-26-2024 End: 08-26-2024 ambulatory [facility] Start: 08-16-2024 End: 08-16-2024 ambulatory Ty Fairbanks MD Facility:[facility] Start: 08-12-2024 End: 08-12-2024 ambulatory [facility] Start: 08-10-2024 End: 08-10-2024 Office outpatient visit [...] patient visit Priyank Gaspar MD Work Phone: [facility] Emergency Department Comment on above: Acute exacerbation o f chronic low back pain (Primary Dx) Start: 07-20-2024 End: 07-20-2024 Emergency department patient visit Yoli Lal MD Work Phone: [facility] Emergency Department Comment on above: Strain of lumbar reg ion, initial encounter (Primary Dx); Abnormal computed tomography of lumbar spine Start: 07-15-2024 End: 07-15-2024 ambulatory [facility] Start: 06-25-2024 End: 06-25-2024 ambulatory [facility] Start: 06-02-2024 End: 07-16-2024 Refill Destinee Britton MD Work Phone: [facility] Comment on above: Encounter for initia l prescription of contraceptive pills Start: 05-28-2024 End: 05-28-2024 ambulatory NUBIA STEPHENS [facility] Start: 05-27-2024 End: 05-27-2024 ambulatory CHAD Giordano [facility] Start: 05-24-2024 End: 05-24-2024 Bamboo flowsheet Destinee [...] Hirsutism Start: 04-22-2024 End: 04-22-2024 ambulatory CHAD Giordano ROSANA [facility] Start: 03-25-2024 End: 03-25-2024 ambulatory CHAD WAYNE [facility] Start: 11-11-2023 End: 11-11-2023 ambulatory [facility] Work Phone: Start: 11-11-2023 End: 11-11-2023 Patient encounter procedure [facility] Work Phone: Start: 10-10-2023 End: 10-10-2023 ambulatory [facility] Work Phone: Start: 10-10-2023 End: 10-10-2023 Patient encounter procedure [facility] Work Phone: Start: 07-09-2023 End: 07-09-2023 ambulatory Becky Guaman Other [facility] Other Start: 07-09-2023 Office outpatient vi sit 25 minutes Becky Guaman [facility] Start: 12-11-2022 End: 12-11-2022 ambulatory Becky Guaman Other [facility] Other Start: 12-11-2022 Telephone encounter Becky Romero i [facility] Start: 12-09-2022 Office outpatient vi sit 15 minutes Lexy Kraft [facility] Start: 12-09-2022 End: 12-09-2022 ambulatory PHYSICIAN NO [employer] Other Start: 12-09-2022 End: 12-09-2022 Patient encounter procedure PHYSICIAN NO [facility] Work Phone: Start: 09-27-2022 End: 09-27-2022 ambulatory Becky Guaman Other [facility] Other Start: 09-27-2022 Telephone encounter Becky Romero i [facility] Start: 08-14-2022 End: 08-14-2022 ambulatory Becky Guaman Facility:[facility] Start: 08-14-2022 End: 08-14-2022 ambulatory PHYSICIAN NO [facility] Work Phone: Start: 08-14-2022 End: 08-14-2022 Patient encounter procedure PHYSICIAN NO [facility] Work Phone: Start: 08-13-2022 End: 08-13-2022 ambulatory Becky Guaman Facility:[facility] Start: 08-13-2022 End: 08-13-2022 Patient encounter procedure PHYSICIAN NO [facility] Start: 08-13-2022 End: 08-13-2022 ambulatory PHYSICIAN NO [facility] Work Phone: Start: 08-13-2022 Telephone encounter Becky Romero i [facility] Start: 08-12-2022 End: 08-12-2022 ambulatory Becky Guaman Other [facility] Other Start: 08-12-2022 Encounter for genera l adult medical examination without abnormal findings Becky Guaman [facility] Start: 08-12-2022 Periodic preventive med est patient 18-39 yrs Becky Guaman [facility] Start: 05-20-2022 End: 05-20-2022 ambulatory Becky Guaman Other [facility] Other Start: 05-20-2022 Telephone encounter Becky Heather calderon [facility] Start: 02-08-2022 End: 02-08-2022 ambulatory Becky Guaman Other [facility] Other Start: 02-08-2022 Office outpatient vi sit 15 minutes Joselin Wilkins [facility] Start: 02-08-2022 Telephone encounter Becky Romero i [facility] Start: 02-06-2022 End: 02-06-2022 ambulatory Lexy Menamond Other [facility] Other Start: 02-06-2022 Office outpatient vi sit 15 minutes Lexy Abena [facility] Start: 07-03-2021 End: 07-03-2021 ambulatory Becky Guaman Other [facility] Other Start: 07-03-2021 Office outpatient vi sit 15 minutes Becky Hernandezernestineyumiko [facility] Start: 05-19-2020 End: 05-19-[address] ROGE THACKER Facility:[facility] Start: 05-16-2020 Encounter for other preprocedural examination [facility] Start: 05-13-2020 End: 05-14-2020 ambulatory SUYAPA [facility] Facility:[facility] Start: 05-11-2020 End: 05-12-2020 ambulatory SUYAPA [facility] Facility:[facility] Start: 05-11-2020 End: 05-12-2020 Encounter for other preprocedural examination SUYAPA [facility] Facility:[facility]1 Start: 03-23-2020 End: 03-24-[address] DESTINEE BRITTON Facility:[facility] Start: 02-29-2020 End: 03-01-2020 ambulatory [facility] Facility:[facility] Start: 03-30-2019 End: 03-30-2019 Patient encounter procedure Radha Aguilera [facility] Procedures Date Procedure Procedure Detail Performing Clinician Start: 12-03-2024 Urnls dip stick/tabl et rgnt non-auto w/o micrscp Ness Montez [employer]CHITECT Work Phone: Start: 07-20-2024 Ct lumbar spine w/o contrast material Yoli Lal MD Work Phone: Start: 07-20-2024 Urinalysis microscop ic only Yoli Lal MD Work Phone: Start: 07-20-2024 End: 07-20-2024 Urnls dip stick/tablet rgnt auto w/o microscopy Yoli Lal MD Work Phone: Start: 04-22-2024 Follow-up visit Follow-up CHAD WAYNE Start: 12-09-2022 [...] EST Office Visit BIANCA RAPP [address] [place] [facility] [place] [id number] Jovita Salas, CNM [address] [place] [facility] [place] [address] [facility] Start: 04-11-2025 End: 04-11-2025 ambulatory 04/11/2025 5:30 PM EDT Treatment [facility] [address] [place] [address] Delia Kwan, PT [facility] Start: 04-04-2025 End: 04-04-2025 ambulatory 04/04/2025 5:30 PM EDT Treatment [facility] [address] [place] [address] Delia Kwan, PT [facility] Start: 03-29-2025 End: 03-29-2025 ambulatory 03/29/2025 5:30 PM EDT Treatment [facility] [address] [place] [address] Ryan Barger, PRODUCT SAFETY ASSOCIATE [facility] Start: 03-24-2025 End: 03-24-2025 ambulatory 03/24/2025 6:00 PM EDT Treatment [facility] [address] [place] [address] Ofelia Blakely, PRODUCT SAFETY ASSOCIATE [facility] Start: 03-21-2025 End: 03-21-2025 ambulatory 03/21/2025 1:00 PM EDT Treatment [facility] [address] [place] [address] Ryan Barger PTA [facility] Start: 03-15-2025 End: 03-15-2025 ambulatory 03/15/2025 5:30 PM EDT Treatment [facility] [address] [place] [address] Ryan Barger PTA Arrived [facility] Comment on above: Arrived Start: 03-07-2025 Influenza vaccination Influenza Vacc ine (#1) [facility] Start: 03-02-2025 End: 03-02-2025 ambulatory 03/02/2025 5:30 PM EDT Treatment [facility] [address] [place] [address] Ryan Barger PTA [facility] Start: 02-28-2025 End: 02-28-2025 ambulatory 02/28/2025 6:00 PM EDT Treatment [facility] [address] [place] [address] Delia Kwan, PT [facility] Start: 02-24-2025 End: 02-24-2025 ambulatory 02/24/2025 6:00 PM EDT Treatment [facility] [address] [place] [address] Ofelia Blakely, PRODUCT SAFETY ASSOCIATE [facility] Start: 02-15-2025 End: 02-15-2025 ambulatory 02/15/2025 6:00 PM EDT Treatment [facility] [address] [place] [address] Kem Costa PTA [facility] Start: 02-14-2025 End: 02-14-2025 Patient encounter procedure [facility] Comment on above: Arrived Start: 02-08-2025 End: 02-08-2025 Patient encounter procedure 02/08/2025 4:00 PM EDT Office Visit [facility] [address] [place] [facility] [place] [address] Jovita Salas, CNM [address] [facility], [place] [id number] [facility] Start: 02-01-2025 End: 02-01-2025 ambulatory [facility] Comment on above: Arrived Start: 01-27-2025 End: 01-27-2025 ambulatory [facility] Comment on above: Arrived Start: 01-24-2025 End: 01-24-2025 Evaluation 01/24/2025 6:00 PM EDT Evaluation [facility] [address] [place] [address] Delia Kwan, PT Sacrococcygeal disorders, not [...] EDT Office Visit [facility] [address] [place] [phone] Ness Montez NP [address] [place] [address] [facility] Start: 08-10-2024 End: 08-10-2024 [...] EST Office Visit [facility] [address] [place] [phone] Jovita Salas CNM [address] [place] [address] Arrived [facility] Comment on above: Arrived Start: 05-10-2024 End: 05-10-2025 THINPREP IMAGING PAP AND HPV DNA REFLEX HPV 16,18 THINPREP IMAGING PAP AND HPV DNA REFLEX HPV 16,18 Pathology and Cytology Routine Screening for cervical cancer Expected: 05/10/2024 (Approximate), Expires: 05/10/2025 [facility] Work Phone: Comment on above: Expected: 05/10/2024 (Approximate), Expires: 05/10/2025 Start: 03-07-2024 Influenza vaccination Influenza Vacc ine (#1) [facility] Start: 05-19-2023 DTaP/Tdap/Td vaccine (7 - Td or Tdap) DTaP/Tdap/Td vaccine (7 - Td or Tdap) [facility] Start: 08-14-2022 [facility] Start: 2021 Screening for malign ant neoplasm of cervix Pap smear [facility] Start: 2018 Hepatitis C screening Hepatitis C sc reen [facility] Start: 2016 Screening for Chlamy rafael trachomatis Chlamydia/GC screen [facility] Start: 2015 HIV screening HIV screen [facility] Start: 2015 HPV vaccine (1 - 3-d ose series) HPV vaccine (1 - 3-dose series) [facility] Start: 2012 Depression Screen Depression Screen [facility] CBC panel - Blood by Automated count CBC Lab Routine PCOS (polycystic ovarian syndrome) Ordered: 05/10/2024 [facility] Comment on above: Ordered: 05/10/2024 Glucose measurement estimated from glycated hemoglobin [facility] Hemoglobin A1c/Hemoglobin.total in Blood [facility] Hemoglobin A1c/Hemoglobin.total in Blood Hemoglobin A1c Lab Routine PCOS (polycystic ovarian syndrome) Ordered: 05/10/2024 [facility] Comment on above: Ordered: 05/10/2024 Immunizations Immunization Date Immunization Notes Care Provider Fabiana hinson 04-29-2024 SARS-COV-2 (COVID-19 ) vaccine, mRNA, spike protein, LNP, PF, anuj-sucrose, 30 mcg/0.3 mL Destinee Britton MD Work Phone: [facility] 04-29-2024 Seasonal, trivalent, recombinant, injectable influenza vaccine, preservative free Destinee Britton MD Work Phone: [facility] 04-29-2024 influenza virus vacc ine, unspecified formulation Delia Kwan PT [facility] 07-10-2019 Influenza, injectabl e, Madin [place] Canine Kidney, preservative free, quadrivalent Destinee Britton MD Work Phone: [facility] 07-10-2019 influenza, seasonal, injectable Becky Guaman Other [facility] 07-10-2019 influenza virus vacc ine, unspecified formulation Jovita Salas [facility] Work Phone: [facility] 07-17-2018 Influenza, injectabl e, Madin [place] Canine Kidney, preservative free, quadrivalent Destinee Britton MD Work Phone: [facility] 03-02-2018 meningococcal polysaccharide (groups A, C, Y and W-135) diphtheria toxoid conjugate vaccine (MCV4P) Becky Ousmane Other [facility] 05-19-2013 meningococcal polysaccharide (groups A, C, Y and W-135) diphtheria toxoid conjugate vaccine (MCV4P) Destinee Britton MD Work Phone: [facility] 05-19-2013 tetanus toxoid, redu latrice diphtheria toxoid, and acellular pertussis vaccine, adsorbed Destinee Britton MD Work Phone: [facility] 05-19-2013 varicella virus vaccine Destinee Britton MD Work Phone: [facility] 04-03-2006 diphtheria, tetanus toxoids and acellular pertussis vaccine, unspecified formulation Destinee Britton MD Work Phone: [facility] 04-03-2006 hepatitis B vaccine, pediatric or pediatric/adolescent dosage Destinee Britton MD Work Phone: [facility] 04-03-2006 measles, mumps and rubella virus vaccine Destinee Britton MD Work Phone: [facility] 04-03-2006 poliovirus vaccine, unspecified formulation Destinee Britton MD Work Phone: [facility] 04-03-2006 varicella virus vaccine Destinee Britton MD Work Phone: [facility] 03-03-2006 DTaP-hepatitis B and poliovirus vaccine Destinee Britton MD Work Phone: [facility] 03-03-2006 measles, mumps and rubella virus vaccine Destinee Britton MD Work Phone: [facility] 12-23-2001 measles, mumps and rubella virus vaccine Destinee Britton MD Work Phone: [facility] 09-17-2001 diphtheria, tetanus toxoids and acellular pertussis vaccine, unspecified formulation Destinee Britton MD Work Phone: [facility] 09-17-2001 haemophilus influenz ae type b vaccine, conjugate unspecified formulation Destinee Britton MD Work Phone: [facility] 2000 diphtheria, tetanus toxoids and acellular pertussis vaccine, unspecified formulation Destinee Britton MD Work Phone: [facility] 2000 haemophilus influenz ae type b vaccine, conjugate unspecified formulation Destinee Britton MD Work Phone: [facility] 2000 hepatitis B vaccine, pediatric or pediatric/adolescent dosage Destinee Britton MD Work Phone: [facility] 2000 poliovirus vaccine, unspecified formulation Destinee Britton MD Work Phone: [facility] 2000 haemophilus influenz ae type b vaccine, conjugate unspecified formulation Destinee Britton MD Work Phone: [facility] 2000 diphtheria, tetanus toxoids and acellular pertussis vaccine, unspecified formulation Destinee Britton MD Work Phone: [facility] 2000 poliovirus vaccine, unspecified formulation Destinee Britton MD Work Phone: [facility] 2000 diphtheria, tetanus toxoids and acellular pertussis vaccine, unspecified formulation Destinee Britton MD Work Phone: [facility] 2000 haemophilus influenz ae type b vaccine, conjugate unspecified formulation Destinee Britton MD Work Phone: [facility] 2000 hepatitis B vaccine, pediatric or pediatric/adolescent dosage Destinee Britton MD Work Phone: [facility] 2000 poliovirus vaccine, unspecified formulation Destinee Britton MD Work Phone: [facility] 2000 hepatitis B vaccine, pediatric or pediatric/adolescent dosage Destinee Britton MD Work Phone: [facility] Healthcare Payers Date Payer Category Payer Unknown 2024 Unknown [id number] 2022 Blue Cross Blue Shield [id number] 2022 Self-pay [id number] 2022 Blue Cross Blue Shield 1.2.8 [id number] 15 2000 Unknown [id number] 2.16.84 0.1.040359.3.579.2.593 2000 Unknown [id number] 2.16.84 0.1.001570.3.579.2.593 2000 Unknown [id number] 2.16.84 0.1.336646.3.579.2.593 2000 Unknown [id number] 2.16.84 0.1.313472.3.579.2.593 2000 Unknown [id number] 2.16.84 0.1.759630.3.579.2.593 2000 Unknown [id number] 2.16.8 40.1.843450.3.579.2.173 2000 Unknown [id number] 2.16.8 40.1.716153.3.579.2.173 2000 Unknown [id number] 2.16.8 40.1.001243.3.579.2.173 2000 Unknown [id number] 2.16. 840.1.585386.3.579.2.196 2000 Unknown [id number] 2.16. 840.1.143102.3.579.2.196 2000 Unknown [id number] 2.16. 840.1.935877.3.579.2.196 2000 Unknown [id number] 2.16. 840.1.935535.3.579.2.196 2000 Unknown [id number] 2.16. 840.1.628879.3.579.2.196 2000 Unknown [id number] 2.16. 840.1.808551.3.579.2.196 2000 Unknown [id number] 2.16. 840.1.775073.3.579.2.128 2000 Unknown [id number] 2.16. 840.1.564395.3.579.2.128 2000 Unknown [id number] 2.16. 840.1.304602.3.579.2.1285 2000 Unknown [id number] 2.16. 840.1.141502.3.579.2.128 2000 Unknown [id number] 2.16. 840.1.451324.3.579.2.1285 2000 Unknown [id number] 2.16. 840.1.151750.3.579.2.128 2000 Unknown [id number] 2.16. 840.1.130548.3.579.2.1285 2000 Unknown [id number] 2.16. 840.1.813986.3.579.2.128 2000 Unknown [id number] 2.16. 840.1.670460.3.579.2.1285 2000 Unknown [id number] 2.16. 840.1.767547.3.579.2.1286 2000 Unknown [id number] 2.16. 840.1.276811.3.579.2.1286 2000 Unknown [id number] 2.16.8 40.1.724776.3.579.2.1286 2000 Unknown [id number] 2.16.8 40.1.886407.3.579.2.1286 2000 Unknown [id number] 2.16.8 40.1.870174.3.579.2.1286 2000 Unknown [id number] 2.16.8 40.1.590251.3.579.2.1286 2000 Unknown [id number] 2.16.8 40.1.934024.3.579.2.1286 1959 Unknown [id number] Unknown [id number] 2.16.8 40.1.131709.3.579.2.531 Unknown [id number] 2.16.8 40.1.850067.3.579.2.531 Unknown [id number] 2.16.8 40.1.302042.3.579.2.531 Social History Date Type Detail Facility Tobacco smoking stat [facility] Unknown if ever smoked [facility] Start: 2000 Sex Assigned At Female [facility] Start: 12-04-2023 End: 05-20-2024 Sex Assigned At [facility] Start: 10-10-2023 Tobacco smoking status CAIS Unknown if ever smoked [facility] Start: 06-26-2023 End: 05-20-2024 Tobacco smoking status NHIS Never smoked tobacco [facility] Start: 06-26-2023 End: 05-20-2024 Tobacco use and exposure Smokeless tobacco non-user [facility] Start: 12-04-2023 End: 05-10-2024 Alcoholic beverage intake Current drinker of alcohol (finding) [facility] Start: 12-04-2023 End: 05-20-2024 History of [...] to any clubs or organizations such as baptism groups, unions, fraternal [...] [facility] Start: 07-20-2024 Tobacco smoking status [facility] Ex-smoker [employer] History of tobacco use Current smoker [employer] History of tobacco use Cigarette Smoker [facility] [employer] Start: 2000 Sex assigned at Not on file [employer] Start: 08-16-2012 Sex Female (finding) [employer] How often do you nee d to have someone help you when you read instructions, pamphlets, or other written material from your doctor or pharmacy [SILS] Never [facility] Goals Date Patient Goal Desired Activity /State Clinical Notes 02-29-2020 to 02-28-2025 Delia Kwan PT - 02/28/2025 6:00 PM EDTTelephone Encounter - Evon Loera - 02/15/2025 9:35 AM EDTTelephone Encounter - Evon Loera - 02/15/2025 9:35 AM EDT Note Date & Type Note Facility 02-28-2025 History of Presen t illness Narrative Images from the original note were not included. Physical Therapy Treatment Visit Patient Name: Edwige Sierra Today's Date: 02/28/2025 Encounter Diagnoses Name Primary? [...] to be instructed in home exercise program. Care Home Goals: To be met in 10 weeks [...] below. Date: documented in this encounter [facility] 02-15-2025 Telephone encount er Note Jackson left at 9:13 am Co, this is Jenn from [facility] in [place]. I am calling about a mutual patient. Edwige Sierra. Date of is 2000. I am calling [...] be great. Our phone number here is [phone]. 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 Thank you. [facility] 02-15-2025 Miscellaneous Notes Formattin g of this note might be different from the original. Jackson left at 9:13 am Co, this is Jenn from [facility] in [place]. I am calling about a mutual patient. Edwige Sierra. Date of is 2000. I am calling [...] be great. Our phone number here is [phone]. Again, this is Jenn from [facility] coming from a Main for Edwige Evans move 2000 for the spring tech or generic, nor just with [employer] dial the control, calling the change quantity to 84 because they only come in back to 28 and we can not open the pack again, phone number [phone] if you want to call for change or send over a brand new prescription with the correct quantity of 84? Thank you. documented in this encounter [facility] 02-14-2025 History of Presen t illness Narrative PROBLEM VISIT Edwige Sierra is 24 y.o. 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 History: Past Medical History: Diagnosis Date Anxiety 10/2023 Depression 12/2019 Right ankle sprain No past surgical history on file. Family History Problem Relation Name Age of Onset Diabetes Mother Kelsy Sierra Cancer Paternal Grandmother Tawnya Sierra Heart failure Other g-ma Diabetes Sister Jovana Sierra Mental illness Sister Jovana Sierra [email or web address] Allergies: No Known Allergies Medications: Current [...] times a day as needed [employer]-Eth Estradiol (Brb-Ey-Efnwju) 0.18/0.215/0.25 MG-25 MCG tablet TAKE 1 TABLET [...] 5:18 PM documented in this encounter [facility] 01-24-2025 History of Presen t illness Narrative Images from the original note were not included. Physical Therapy Evaluation Visit Patient Name: Edwige Sierra Today's Date: 01/24/2025 Encounter Diagnoses Name Primary? [...] to be instructed in home exercise program. Care Home Goals: To be met in 10 weeks [...] below. Date: documented in this encounter [facility] 01-06-2025 Evaluation note Diagnosis Onset Date Resolution Paresthesias acute January 06 2:55pm Pain of left sacroiliac joint acute January 11, 2025 9 :14am Pain of right sacroiliac joint acute January 11, 2025 9:14am Paresthesias acute January 11 9:14am [facility] Work Phone: 1(117) 665-962705-30-2025 History of Present illness Narrative* Ness Montez NP - 12/03/2024 1:30 PM EDT Edwige Sierra is a 24 y.o. female presents with [...] prompting another visit to the ER in [place]. A diagnosis of viral gastroenteritis was made [...] Flowsheet Row Documentation from 11/30/2024 in [facility] with Lorin [place], [place] Hospital Information ED, Hospital or [facility] Facility Discharge? ED Patient has been contacted within 2 days of being seen in the ED Yes Diagnosis Viral Infection Discharge Date 11/28/24 Discharged To: Home Setting Discharge Hospital [facility] Engagement Call Start Time 152 Admission Date 11/28/24 Medications Discharge medications reviewed [...] Name Age of Onset Diabetes Mother Kelsy Sierra Cancer Paternal Grandmother Tawnya Sierra Heart failure Other g-ma Diabetes Sister Jovana Sierra Mental illness Sister Jovana Sierra SOCIAL HISTORY: Social History Tobacco Use Smoking [...] fluid intake and abstain from smoking marijuana. Eaia-jox-lrevefb MiraLAX can be used if constipation persists. [...] or other abnormalities. - Advised to use bazg-qly-fpydolg MiraLAX if constipation persists and to increase fluid intake. - Blood work will be done to assess kidney and liver function. No follow-ups on file. documented in this encounterMissouri Southern [id number] Hospital Discharge instructions* Discharge Instructions* Alicia Dunn [...] sent through Care Everywhere. * Back Pain ([place]) documented in this encounterLif[facility]als[facility]-04-2025 History of Present illness Narrative* Jovita Salas CNM - 08/10/2024 4:00 PM EST PROBLEM VISIT Edwige Sierra is 24 y.o. 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 History: Past Medical History: Diagnosis Date Anxiety 10/2023 Depression 12/2019 Right ankle sprain No past surgical history on file. Family History Problem Relation Name Age of Onset Diabetes Mother Kelsy Sierra Cancer Paternal Grandmother Tawnya iSerra Heart failure Other g-ma Diabetes Sister Jovana Sierra Mental illness Sister Jovana Sierra @SOCX@ Allergies: No Known Allergies Medications: Current [...] CNM,12/16/2024 4:48 PMpatient documented in this encounterMissouri Southern [id number] Hospital Discharge instructions* Discharge Instructions* Octavio Day [...] sent through Care Everywhere. * Back Pain ([place]) documented in this encounterBon [facility] Discharge instructions* Discharge Instructions* Yoli Lal MD - 07/20/2024 6:55 PM EST I have reviewed your CT results with you and with Dr. Krishnan with your permission Please review your CT findings with Dr. Kirshnan You will be provided with Ultram medication which may indeed cause grogginess and also steroid burst You may continue to take your Flexeril as directed if necessary mainly because grogginess * Attachments The following attachments cannot be sent through Care Everywhere. * Strain or Sprain ([place]) documented in this encounterBon [facility] Telephone encounter Note* Telephone Encounter - Freddytommy Lomeli - 06/02/2024 1:06 PM EST Pt called and left a vm at 12:41 pm today She said she has been waiting for her BC to be called over to [facility] but they haven't received anything. She asked if that can please be sent over. [place] [facility] [id number] Miscellaneous Notes* Telephone Encounter - Bess Lomeli - 06/02/2024 1:06 PM EST Pt called and left a vm at 12:41 pm today She said she has been waiting for her BC to be called over to [facility] but they haven't received anything. She asked if that can please be sent over. documented in this encounterMissouri Southern He[id number] History of Present illness Narrative* Destinee Britton MD - 05/24/2024 8:40 AM EST Images from the original note were not included. Edwige Sierra is a 23 y.o. female presents with [...] Name Age of Onset Diabetes Mother Kelsy Sierra Cancer Paternal Grandmother aTwnya Sierra Heart failure Other g-ma Diabetes Sister Jovana Sierra Mental illness Sister Jovana Sierra SOCIAL HISTORY: Social History Tobacco Use Smoking [...] contact the clinic. documented in this encounterMissouri Southern [id number] History of Present illness Narrative* Destinee Britton MD - 05/20/2024 3:20 PM EST Images from the original note were not included. Edwige Sierra is a 23 y.o. female presents with [...] child. 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 She is getting her master's degree [...] Name Age of Onset Diabetes Mother Kelsy Sierra Cancer Paternal Grandmother Tawnya Sierra Heart failure Other g-ma Diabetes Sister Jovana Sierra Mental illness Sister Jovana Sierra SOCIAL HISTORY: Social History Tobacco Use Smoking [...] block during sleep. documented in this encounterMissouri Southern [id number] History of Present illness Narrative* Jovita Salas CNM - 05/10/2024 2:00 PM EST YEARLY HPI: This is a established patient. Chief Complaint Patient presents with Gynecologic Exam Here for annual exam. 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 [facility] Other 06-05-2023 Evaluation note* Encounter Date Diagnosis [...] no improvement in 5 to 7 days [facility] Other 02-06-2023 Evaluation note* Encounter Date Diagnosis [...] Screening for deficiency anemia (ICD-10 - Z13.0) [facility] Other 08-05-2022 Evaluation note* Encounter Date Diagnosis [...] understanding and is agreeable to treatment plan. [facility] Other 08-03-2022 Evaluation note* Encounter Date Diagnosis [...] no improvement in 2 to 3 days. [facility] Other 12-28-2021 Evaluation note* Encounter Date Diagnosis Assessment Notes Treatment Notes Treatment Clinical Notes Jun, Exposure to COVID-19 virus (ICD-10 - Z20.822) Jun, COVID-19 (ICD-10 - U07.1) Patient's rapid test is positive for Covid-19. She is given instructions for quarantine and supportive care. Call immediately for change/worsening or with questions/concerns. [facility] Other 11-13-2020 NotePROCEDURE: XR ANKLE RT MIN 3 VIEWS COMPARISON: 05/19/2020 intraprocedural, 04/02/2020 HISTORY: Postoperative care FINDINGS: BONES:No fracture, acute abnormality, or significant arthropathy. SOFT TISSUES:Post procedural soft tissue swelling, subcutaneous air and lateral surgical elaina EFFUSION:None visible. OTHER: Negative. IMPRESSION: Postprocedural changes Electronically authenticated by: ROGE THACKER Date: 2020-05-19 14:02[facility] [id number] NotePROCEDURE: XR ANKLE RT 2V COMPARISON: 02/29/2020 [...] Electronically authenticated by: ROGE THACKER Date: 2020-05-19 14:00[facility]11-01-2020 History general Narrative - Reported* Type Description Date Medical History Chronic back pain Medical History Hx of concussion Medical History acne Medical History chronic depression Surgical History ankle reconstruction- right 2019 [facility] Other 09-17-2020 NotePROCEDURE: XR FOOT RT MIN 3 VIEWS COMPARISON: 02/29/2020 HISTORY: Pain in right foot FINDINGS: BONES:Stable intra-articular transverse fracture base of the fifth metatarsal. No acute fracture or dislocation SOFT TISSUES:Negative. No visible soft tissue swelling. EFFUSION:None visible. OTHER: Negative. IMPRESSION: Stable healing intra-articular transverse fracture base of the fifth metatarsal Electronically authenticated by: ROGE THACKER Date: 2020-03-23 10:22[facility]08-25-2020 NotePROCEDURE: XR ANKLE RT MIN 3 VIEWS, [...] Electronically authenticated by: ROGE THACKER Date: 2020-02-29 12:57[facility]08-25-2020 NotePROCEDURE: XR ANKLE RT MIN 3 VIEWS, [...] Electronically authenticated by: ROGE THACKER Date: 2020-02-29 12:57[facility] noteNo InformationNortQuixey Other Evevaation noteNo assessment information available [facility] Work Phone: Evaluation note* Diagnosis Onset Date Resolution Status Bilateral acute otitis media resolved [facility] Work Phone: evaluation note* Diagnosis PCOS (polycystic ovarian syndrome)- Primary Polycystic ovaries Normal gynecologic examination Screening for cervical cancer Screening for malignant neoplasm of the cervix Other acne Hirsutism documented in [facility] encounter [facility]* Diagnosis Candidiasis- Primary Acute nausea with nonbilious vomiting documented in this encounter [facility]* Diagnosis Candidiasis- Primary documented in this encounter [facility]* Diagnosis Encounter for initial prescription of contraceptive pills documented in this encounter [facility]* Diagnosis Strain of lumbar region, initial encounter- Primary Abnormal computed tomography of lumbar spine documented in [facility]* Diagnosis Acute exacerbation of chronic low back pain- Primary documented in this encounter [facility]* Diagnosis Acute exacerbation of chronic low back pain- Primary documented in this encounter [facility] note* Diagnosis Nausea- Primary Nausea alone Pain of upper abdomen documented in this encounter [facility] note* Diagnosis Unwanted fertility- Primary PCOS (polycystic ovarian syndrome) Polycystic ovaries [facility]* Diagnosis Onset Date Resolution Status Admit Date Paresthesias acute January 06 2:55pm [facility] Work Phone: Evaluation note* Diagnosis Sacrococcygeal disorders, not elsewhere classified- Primary documented in this encounter [facility]* Diagnosis Sacrococcygeal disorders, not elsewhere classified- Primary documented in this encounter [facility]* Diagnosis Sacrococcygeal disorders, not elsewhere classified- Primary documented in this encounter [facility]* Diagnosis PCOS (polycystic ovarian syndrome)- Primary Polycystic ovaries Encounter for initial prescription of contraceptive pills Insulin resistance Other abnormal glucose documented in this encounter [facility]* Diagnosis Sacrococcygeal disorders, not elsewhere classified- Primary documented in this encounter [facility]* Diagnosis Sacrococcygeal disorders, not elsewhere classified- Primary documented in this encounter [facility]* Diagnosis Sacrococcygeal disorders, not elsewhere classified- Primary documented in this encounter [facility] HealthcareHistory general Narrative - Reported* Type Description Date Medical History Chronic back pain Medical History Hx of concussion Medical History acne [facility] [employer] Other History general Narrative - Reported* Type Description Date Medical History Chronic back pain Medical History Hx of concussion Medical History acne Medical History chronic depression [facility] Other Reason for referral (narrative)No reason for referral information availableLicking Memorial Hospital Work Phone: Reason for visit Narrative* Rehabilitation - Outpatient (Routine) - Authorized Specialty Diagnoses / Procedures Referred By Contac t Referred To Contact Physical Therapy Diagnoses Sacrococcygeal disorders, not elsewhere classified Procedures NC PHYSICAL THERAPY EVALUATION LOW COMPLEX 20 MINS NC OFFICE/OUTPATIENT NEW HIGH MDM 60 MINUTES Feliz Musa MD [address] [place] [address], [address] [place] [address] Phone: tel: fax: Delia Kwan PT Referral ID Status Reason Start Date Expiration Date V isits Requested Visits Authorized [id number] Authorized 01/24/2025 03/24/2025 6 6 [facility] HealthcareReason for [facility] Narrative* Rehabilitation - Outpatient (Routine) - Closed Specialty Diagnoses / Procedures Referred By Contac t Referred To Contact Physical Therapy Diagnoses Sacrococcygeal disorders, not elsewhere classified Procedures NC PHYSICAL THERAPY EVALUATION LOW COMPLEX 20 MINS NC OFFICE/OUTPATIENT NEW HIGH MDM 60 MINUTES Feliz Musa MD [address] [place] [address], [address] [place] [address] Phone: tel: fax: Delia Kwan, PT Referral ID Status Reason Start Date Expiration Date Visits Re quested Visits Authorized [id number] Closed 01/24/2025 03/24/2025 6 6 [facility] HealthcareReason for visit Narrative* Rehabilitation - Outpatient (Routine) - Authorized Specialty Diagnoses / Procedures Referred By Donya t Referred To Contact Physical Therapy Diagnoses Sacrococcygeal disorders, not elsewhere classified Procedures NC THER PX 1/> AREAS EACH 15 MIN NEUROMUSC REEDUCA NC MANUAL THERAPY TQS 1/> REGIONS EACH 15 MINUTES NC THERAPEUTIC PX 1/> AREAS EACH 15 MIN EXERCISES PHYS/OCC THERAPY SS Feliz Musa MD [address] [place] [address], [address] [place] [address] Phone: tel: fax: Delia Kwan, PT Referral ID Status Reason Start Date Expiration Date V isits Requested Visits Authorized [id number] Authorized 03/09/2025 05/07/2025 6 6 [facility] Advance Directives No Advanced Directives Records Found Advance Directive Response Recorded Date/ Time Advance [...] 6:50a m EMG BLE per Jazmin Yanez [facility] January 06 2:55pm Reason for Visit Admit Date Paresthesias January 06, 2025 2:55p m Chief Complaint Admit Date Amb Documentation December 01, 2024 6:50a m EMG BLE per Jazmin Yanez [employer] January 06 2:55pm low back pain January 11, 2025 9:14a m Reason for Visit Admit Date Paresthesias January 06, 2025 2:55p m Pain of left sacroiliac joint January 11, 2025 9:14am Pain of right sacroiliac joint January 11, 2025 9:14am Paresthesias January 11, 2025 9:14a m Assessments No Assessments Information Available Summary Purpose Family History No Family History Records Found Relationship Condition Age at Onset Recorded Date/T katarzyna Not Specified Diabetes mellitus Unknown sister Hypertension Unknown Relationship Condition Age at Onset Recorded Date/T katarzyna mother Diabetes mellitus Unknown sister Hypertension Unknown Additional Source Comments INFORMATION SOURCE (unrecogn ized section and content) DATE CREATED AUTHOR 01/04/2021 [facility] DATE CREATED AUTHOR AUTHOR'S ORGANIZ ATION 06/27/2021 [facility] dical Specialist DATE CREATED AUTHOR AUTHOR'S ORGANIZ ATION 12/16/2022 [facility] DATE CREATED AUTHOR AUTHOR'S ORGANIZ ATION 12/01/2024 [facility] DATE CREATED AUTHOR AUTHOR'S ORGANIZ ATION 02/26/2025 [facility] DATE CREATED AUTHOR AUTHOR'S ORGANIZ ATION 03/18/2025 [facility] REASON FOR VISIT (unrecogniz ed [...] since 2016. MRI completed on Friday in [place]. Reason Comments Back Pain Bilateral lower back [...] PHYSICIAN NO FAMILY Primary Care Provider Active PARAMJIT MorganC Attending Provider Active Team Status: Inactive Member Role Status Dates Grisel Andres APRN Attending Provider Active Start: October 10, 2023 End: October 10, 2023 Becky Guaman DO Primary Care Provider Active Start: October 10, 2023 End: October 10, 2023 Team Status: Inactive Member Role Status Dates Becky Guaman DO Primary Care Prov ider, Attending Provider Active Start: November 11, 2023 End: November 11, 2023 Clay Pigeon Setter Relationship Specialty Start Date End Date Destinee Britton MD [address] [facility] [place] [address] PCP - General Family Medicine 11/12/22 Clay Pigeon Setter Relationship Specialty Start Date End Date Destinee Britton MD [address] [place] [place] [address] PCP - General Family Medicine 11/12/22 Clay Pigeon Setter Relationship Specialty Start Date End Date Destinee Britton MD [address] [place] [address] PCP - General Family Medicine 11/12/22 Clay Pigeon Setter Relationship Specialty Start Date End Date Destinee Britton MD [address] [place] [address] PCP - General Family Medicine 11/12/22 Clay Pigeon Setter Relationship Specialty Start Date End Date Destinee Britton MD [address] [place] [address] PCP - General Family Medicine 11/12/22 Clay Pigeon Setter Relationship Specialty Start Date End Date Becky Guaman DO NPI: [address] [place] [address];[address] [place] [address] PCP - General Family Medicine 07/20/24 Clay Pigeon Setter Relationship Specialty Start Date End Date Becky Guaman DO NPI: [address] [place] [address];[address] [place] [address] PCP - General Family Medicine 07/20/24 Clay Pigeon Setter Relationship Specialty Start Date End Date Becky Guaman DO NPI: [address] [place] [address];[address] [place] [id number] PCP - General Family Medicine 07/20/24 Clay Pigeon Setter Relationship Specialty Start Date End Date Destinee Britton MD [address] [place] [address] PCP - General Family Medicine 11/12/22 Clay Pigeon Setter Relationship Specialty Start Date End Date Destinee Britton MD [address] [place] [address] PCP - General Family Medicine 11/12/22 Clay Pigeon Setter Relationship Specialty Start Date End Date Destinee Britton MD [address] [place] [address] PCP - General Family Medicine 11/12/22 Team Status: Inactive Member Role Status Dates Becky Guaman DO Primary Care Provider Active Start: January 11, 2025 End: January 11, 2025 Feliz Musa MD Attending Provider Active Star t: January 11, 2025 End: January 11, 2025 Clay Pigeon Setter Relationship Specialty Start Date End Date Destinee Britton MD [address] [place] [address] PCP - General Family Medicine 11/12/22 Clay Pigeon Setter Relationship Specialty Start Date End Date Destinee Britton MD [address] [place] [address] PCP - General Family Medicine 11/12/22 Clay Pigeon Setter Relationship Specialty Start Date End Date Destinee Britton MD [address] [facility] [place] [address] PCP - General Family Medicine 11/12/22 Clay Pigeon Setter Relationship Specialty Start Date End Date Destinee Britton MD [address] [place] [address] PCP - General Family Medicine 11/12/22 Clay Pigeon Setter Relationship Specialty Start Date End Date Destinee Britton MD [address] [place] [address] PCP - General Family Medicine 11/12/22 Clay Pigeon Setter Relationship Specialty Start Date End Date Destinee Britton MD [address] [place] [address] PCP - General Family Medicine 11/12/22 Clay Pigeon Setter Relationship Specialty Start Date End Date Destinee Britton MD [address] [place] [address] PCP - General Family Medicine 11/12/22 Clay Pigeon Setter Relationship Specialty Start Date End Date Destinee Britton MD [address] [facility] [place] [address] PCP - General Family Medicine 11/12/22 Clay Pigeon Setter Relationship Specialty Start Date End Date Destinee Britton MD [address] [facility] [place] [address] PCP - General Family Medicine 11/12/22 Clay Pigeon Setter Relationship Specialty Start Date End Date Destinee Britton MD [address] [facility] [place] [address] PCP - General Family Medicine 11/12/22 Clay Pigeon Setter Relationship Specialty Start Date End Date Destinee Britton MD [address] [facility] [place] [address] PCP - General Family Medicine 11/12/22 Clay Pigeon Setter Relationship Specialty Start Date End Date Destinee Britton MD [address] [facility] [place] [address] PCP - General Family Medicine 11/12/22 Goals [...] BE BASED ON THE PRIMARY CLINICAL RECORDS. [employer] provides no warranty or guarantee of the accuracy or completeness of information in this document.
[2025-03-21 10:16] VITALS: BP 115/65; PULSE 66; TEMP 36.7; O2SAT 99
[2025-03-21 10:43] VITALS: BP 116/62; PULSE 65; O2SAT 100
[2025-03-21 10:44] VITALS: BP 102/55; PULSE 68; O2SAT 100
[2025-03-21] MEDS: BUPIVACAINE HCL 0.25% PF 25 MG/10 ML VIAL 8 ML INJ (10:45)
[2025-03-21] MEDS: LIDOCAINE HCL 2% 400 MG/20 ML MDV INJ (10:46)
--- NOTE | 2025-03-21 10:48 | W.PM.PROCNOT ---
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 An informed consent was obtained and placed on the chart.? The patient was brought to the medical procedure unit and placed in the prone position.? A timeout was completed verifying correct patient, procedure site, positioning, plan, and special equipment.? Using aseptic technique, the needle was placed at left L4. Under direct fluoroscopic visualization a Quincke-tipped spinal needle was advanced to the junction of the superior articulating process with the transverse process at the designated medial branch segment.? Preceded by negative aspiration, the above-mentioned injectate was placed in 1 mL aliquots.? The procedure was repeated at left L5, S1.? The needle was removed and insertion site was covered. The same procedure, at the same levels, was completed on the right side. The patient was taken to the postprocedural recovery area and monitored for an appropriate length of time before found suitable for discharge in the company of a responsible adult. Anesthesia: Local Surgeon: Ty Fairbanks Pathology: none sent Condition: stable Disposition: no change
== END 2025-03-21 10:52 | disposition home or self-care (01) ==
PROVIDERS: PCP Student in an Organized Health Care Education/Training Program; Visit Provider Anesthesiology
DX: M47.816 Spondylosis without myelopathy or radiculopathy, lumbar region (principal); M54.50 Low back pain, unspecified
CPT/HCPCS: 36415; 64493; 64494; 84703; J0665

== ENCOUNTER 2025-03-23 09:40 | Outpatient (OUT) | payer BC, SELFPAY ==
--- OUTSIDE RECORDS SUMMARY | 2025-03-23 09:48 | XMS_ITS | CCD ---
Author Organization [facility] Care Team Providers Care Phototypesetter Operator Name Role Phone Radha gAuilera Attending Provider Unavailnaun DUMONT, FAMILY PHYSICIAN Primary [...] Provider Unava ilable LOU Kraft Attending Provider [phone] Becky Romeo Admitting Unavailable Becky Romeo Attending Unavailable NO FAMILY, PHYSICIAN Primary Care Unavailable Becky Romeo Admitting Unavailable Becky Romeo Attending Unavailable NO FAMILY, PHYSICIAN Primary Care Unavailable Lexy Kraft Admitting Unavailable Lexy Kraft Attending Unavailable NO FAMILY, PHYSICIAN Primary Care Unavailable Tobi LANDIS, Destinee Patel Primary Care Provider Braniecki DO, Becky A Primary Care Provider ROMEI, BECKY A Primary Care Unavailable YOIL LAL Attending Unavailable BRANIECKI, BECKY A Primary Care Unavailable BRANIECKI, BECKY A Primary Care Unavailable PRIYANK GASPAR Attending Unavailable Braniecki DO, Becky Primary Care Provider [phone] Lacey Morton LPN Attending Provider Unavailable Giovana BOWEN, Mack Zimmerman Attending Provider [phone] Lencho LANDIS, Feliz Queen Attending Provider Magdi LANDIS, Andrius Wallace Attending Unavailable Gihennaitis , Andrius Rodrigo Attending Unavailable Giedraitis , Andrius Rodrigo Attending Unavailable Giedraitis , Andrius Vytjohn Attending Unavailable Giedraitis , Andrius Vytjohn Attending Unavailable Braniecki DO, Becky Les Referring Un available Edwina LANDIS, Adam Aguilar Attending Unavail able ROSANACHAD Attending Unavailable BRANIECKI, BECKY A Referring Unavailable [...] Sig (Original) baclofen 10 mg oral tablet (13 sources) gamma-Aminobutyric Acid-ergic Agonist Start: 01-11-2025 take [...] tablet by mouth once daily Norg[employer]-Eth Estradiol (Ccy-Dj-Mosdfe) 0.18/0.215/0.25 MG-25 MCG tablet Indications: Unwanted fertility [...] 03/11/2024 Active etodolac 400 mg oral tablet (12 sources) Nonsteroidal Anti-inflammatory Drug Start: 01-31-2025 take [...] Drug Class(es) Dates Sig (Normalized) Sig (Original) [id number] 200 actuat albuterol 0.09 mg/actuat metered dose [...] 11, 2023 2:33pm take 1 capsule by mo [facility] every eight hours Dicyclomine HCl 10 [...] Interpretation and review of laboratory results Normal [facility] Preg Test, Ur Negative Negative [facility] Urinalysis macro (dipstick) panel (U)on 12-03-2024 Bilirubin, UA 3+ Negative - 4(70) +++ mg/dL [facility] Blood, UA Negative Negative - 50 Aidan/mcL [facility] Clarity, UA Clear [facility] Color, UA Yellow [facility] Glucose, UA Negative Negative - 2000(110) ++++ mg/dL [facility] Interpretation and review of laboratory results Abnormal [facility] Ketones, UA Positive Negative - 160(16) ++++ mg/dL [facility] Leukocytes, UA 1+ Negative - 500+++ Samira/mcL [facility] Nitrite, UA Negative Negative - Positive [facility] pH, UA 6 5 - 9 [facility] Protein, UA 1+ Negative - 2000(20) ++++ mg/dL [facility] Spec Grav, UA 1.02 1 - 1.03 [facility] Urobilinogen, UA 0.2 0.2 - 12 mg/dL [facility] CT LUMBAR SPINE WO CONTRASTo n 07-20-2024 [...] Octavio Lowe MD 07/20/24 Final result Normal [facility] CT Lumbar spine WO contrasto n [...] facets throughout with no significant spinal stenosis. [facility] RIS CONSOLIDATED EXAMINATION: CT OF [...] TISSUES/RETROPERITONE UM: No paraspinal mass is seen. [facility] RIS CONSOLIDATED Octavio Lowe MD - 07/20/2024 [...] facets throughout with no significant spinal stenosis. [facility] Radiology Study observation (narrative) [facility] CT Lumbar spine WO contrastO rdered By: Octavio Lowe on 07-20-2024 [facility] Work Phone: HCG, ,Urineon 07-20 Beta HCG ( test) Ql (U) Negative Normal NEG [facility] Comment on above: Result Comment: Spec imens with hCG levels near the threshold of the test (25 mIU/mL) may give a negative or indeterminate result. In such cases, another test should be performed with a new specimen in 48-72 hours. If early is suspected clinically in this setting, correlation with quantitative serum b-hCG level is suggested. [facility] confirmed the use of plasma for this test. This has not been cleared or approved by the U.S. Food and Drug Administration. The FDA has determined that such clearance is not necessary. Performed By: #### U HCG #### [facility] [address] [place] [address] Banking Assistant: Roge Rios MD Microscopic Urinalysison Amorphous sediment LM Ql (Urine sed) 1+ Abnormal None [facility] Epithelial cells LM.HPF (Urine sed) [#/Area] 2 TO 5 [facility] Interpretation and review of laboratory results Abnormal [facility] RBC LM.HPF (Urine sed) [#/Area] 0 TO 2 [facility] Renal Epithelial, UA 2 TO 5 0 /HPF [facility] WBC LM.HPF (Urine sed) [#/Area] 5 TO 10 [facility] , Urineon HCG ( test) Ql (U) Negative NEGATIVE [facility] Comment on above: Specimens with hCG l evels near the threshold of the test (25 mIU/mL) may give a negative or indeterminate result. In such cases, another test should be performed with a new specimen in 48-72 hours. If early is suspected clinically in this setting, correlation with quantitative serum b-hCG level is suggested. [employer] has confirmed the use of plasma for this test. This has not been cleared or approved by the U.S. Food and Drug Administration. The FDA has determined that such clearance is not necessary. [facility] Urinalysison 07-20-2024 Bilirubin Ql (U) Negative NEGATIVE [facility] [employer] [facility] Clarity (U) SLIGHTLY CLOUDY Abnormal Clear [facility] Color (U) Yellow Yellow [facility] Glucose Test strip (U) [Mass/Vol] Negative NEGATIVE mg/dL [facility] Hemoglobin Auto test strip Ql (U) Negative NEGATIVE [facility] Interpretation and review of laboratory results Abnormal [facility] Ketones (U) [Mass/Vol] Negative NEGAT AUGUSTINE mg/dL [facility] Leukocyte esterase Test strip Ql (U) SMALL Abnormal NEGATIVE [facility] Nitrite Ql (U) Negative NEGATIVE [facility] pH (U) 8.0 [pH] 5.0 - 9.0 [facility] Protein (U) [Mass/Vol] Negative NEGAT AUGUSTINE mg/dL [facility] Specific gravity (U) [Rel density] 1.020 1.010 - 1.020 [facility] Urobilinogen Qn (U) Normal 0.0 - 1. 0 EU/dL [facility] Urinalysis, Routineon 2024 Bilirubin, SemiQt,Ur Negative Normal NEG [facility] Comment on above: Performed By: #### U A, UMICAO #### [facility] [address] [place], [place] [id number] Banking Assistant: Roge Rios MD Blood, Urine Negative Normal NEG [facility] Comment on above: Performed By: #### U A, UMICAO #### [facility] [address] [place] [address] Banking Assistant: Roge Rios MD Clarity (U) SLIGHTLY CLOUDY Abnormal CLEAR [facility] Comment on above: Performed By: #### U A, UMICAO #### [facility] [address] [place] [address] [place] [place], [place] [phone] Banking Assistant: Roge Rios MD Color (U) Yellow Normal YEL [facility] Comment on above: Performed By: #### U A, UMICAO #### [facility] [address] [place] [address] [place] [place], [place] [phone] Banking Assistant: Roge Rios MD Glucose Ql (U) Negative Normal NEG [facility] in Hospital Comment on above: Performed By: #### U A, UMICAO #### [facility] [address] [place] [address] [place] [address] Banking Assistant: Roge Rios MD Ketones Ql (U) Negative Normal NEG [facility] in Hospital Comment on above: Performed By: #### U A, UMICAO #### [facility] [address] [place] [address] Banking Assistant: Roge Rios MD Leukocyte esterase Test strip Ql (U) SMALL Abnormal NEG [facility] Comment on above: Performed By: #### U A, UMICAO #### [facility] [address] [place] [address] Banking Assistant: Roge Rios MD Nitrite,Ur Negative Normal NEG [facility] Comment on above: Performed By: #### U A, UMICAO #### [facility] [address] [place] [address] [address] [place], [place] [phone] Banking Assistant: Roge Rios MD PH,Ur 8.0 Normal 5.0-9.0 [facility] Comment on above: Performed By: #### U A, UMICAO #### [facility] [address] [place] [address] [place] [address] Banking Assistant: Roge Rios MD Protein Ql (U) Negative Normal NEG [facility] Comment on above: Performed By: #### U A, UMICAO #### [address] [place], [place] [phone] Banking Assistant: Roge Rios MD Spec. Hepzibah,Ur 1.020 Normal 1.010-1.020 [facility] Comment on above: Performed By: #### U A, UMICAO #### [address] [place], [place] [phone] Banking Assistant: Roge Rios MD Urobilinogen,Ur Normal Normal 0.0-1.0 [facility] Comment on above: Performed By: #### U A, UMICAO #### [address] [place], [place] [address] Banking Assistant: Roge Rios MD Urinalysis,Microon 5 Amorphous sediment LM Ql (Urine sed) 1+ Abnormal NONE [facility] Comment on above: Performed By: #### U A, UMICAO #### [address] [place], [place] [phone] Banking Assistant: Roge Rios MD Epithelial cells LM Ql (Urine sed) 2 TO 5 Normal 0-25 [facility] Comment on above: Performed By: #### U A, UMICAO #### [facility] [address] [place] [address] Banking Assistant: Roge Rios MD Epithelial, Renal 2 TO 5 Normal 0 [facility] Comment on above: Performed By: #### U A, UMICAO #### [facility] [address] [place], [place] [address] Banking Assistant: Roge Rios MD Urine RBC's 0 TO 2 Normal 0-2 [facility] Comment on above: Performed By: #### U A, UMICAO #### [facility] [address] [place] [address] Banking Assistant: Roge Rios MD Urine WBC's 5 TO 10 Normal 0-5 [facility] Comment on above: Performed By: #### U A, UMICAO #### [facility] [address] [place] [address] Banking Assistant: Roge Rios MD COVID + FLU Quick Testingon 07-09-2023 SARS-CoV-2 (COVID-19) RNA THA+probe Ql (Unsp spec) Negative [facility] [employer] Other COVID + FLU Quick Testing Negative [facility] [employer] Other XR wrist LT min 3V*on 2022 XR wrist LT min 3V* [facility] [employer] Other XR wrist LT min 3V* [facility] [employer] Other XR wrist LT min 3V* [address] [place] [address] [employer] Other XR wrist LT min 3V* [place] [address] [facility] [employer] Other XR wrist LT min 3V* XRay Report Nort [email or web address] Other XR wrist LT min 3V* Signed [employer] [facility] [employer] Other XR wrist LT min 3V* Patient: Edwige Patterson MR#: [id number] [employer] Other XR wrist LT min 3V* [id number] [employer] Other XR wrist LT min 3V* : 2000 Acct:[id number] [employer] Other XR wrist LT min 3V* Age/Sex: 22 / F ADM Date: 12/09/22 [employer] Other XR wrist LT min 3V* Loc: XDUCLY Room: Type: [facility] [employer] Other XR wrist LT min 3V* Attending Dr: Lexy BLAKE [employer] Other XR wrist LT min 3V* Copies to: LOU Hernandez [employer] Other XR wrist LT min 3V* Ordering Provider: LOU Hernandez [employer] Other XR wrist LT min 3V* Date of Service: 12/09/22 [employer] Other XR wrist LT min 3V* XR/XR wrist LT min 3V*: Left wrist pain [employer] Other XR wrist LT min 3V* ([id number]) XR/XR hand LT min 3V*: Left wrist pain [employer] Other XR wrist LT min 3V* 3 views LEFT hand plain film [employer] Other XR wrist LT min 3V* COMPARISON: None [employer] Other XR wrist LT min 3V* HISTORY: LEFT hand injury. Pain involving the distal middle finger. Dorsal wrist pain [employer] Other XR wrist LT min 3V* ACUTE FINDINGS: None [employer] Other XR wrist LT min 3V* DEGENERATIVE CHANGE: Unremarkable [employer] Other XR wrist LT min 3V* SOFT TISSUE FINDINGS : Unremarkable [employer] Other XR wrist LT min 3V* JOINT EFFUSION: None [employer] Other XR wrist LT min 3V* POSTOP CHANGES: None [employer] Other XR wrist LT min 3V* BONY MINERALIZATION: Adequate [employer] Other XR wrist LT min 3V* XR/XR hand LT min 3V* [employer] Other XR wrist LT min 3V* IMPRESSION: No acute findings [employer] Other XR wrist LT min 3V* 4 views LEFT wrist plain film [employer] Other XR wrist LT min 3V* BONE MINERALIZATION: Adequate [employer] Other XR wrist LT min 3V* IMPRESSION: No acute bony findings. [employer] Other XR wrist LT min 3V* Impression dictated by: Misbah Mast M.D.12/09/2022 11:59 AM [employer] Other XR wrist LT min 3V* Dictation Location: [place] [address] [employer] Other XR wrist LT min 3V* Transcribed By: PWS 12/09/22 1159 [employer] Other XR wrist LT min 3V* Dictated By: Misbah Mast DO 12/09/22 1158 [employer] Other XR wrist LT min 3V* Signed By: [employer] Other XR wrist LT min 3V* 12/09/22 1159 No rt [email or web address] Other XR wrist LT min 3V* [facility] Main [place] [address] [place], [place] [phone] XRay Report Signed Patient: Edwige Patterson MR#: [id number] : 2000 Acct:[id number] Age/Sex: 22 / F ADM Date: 12/09/22 Loc: XDUC Room: Type: [facility] Attending Dr: Lexy BLAKE Copies to: LOU Hernandez Ordering Provider: LOU Hernandez Date of Service: 12/09/22 XR/XR wrist LT min 3V*: Left wrist pain ([id number]) XR/XR hand LT min 3V*: Left wrist [...] Misbah Mast M.D.12/09/2022 11:59 AM Dictation Location: [place] [address] Transcribed By: [facility] 12/09/22 1159 Dictated By: Misbah Mast DO 12/09/22 1158 Signed By: 12/09/22 1159 Normal [facility] A1C with Estimated Average G ugo 08-14-2022 HbA1c (Bld) [Mass fraction] 5.200 % Normal 4.3-5.6 % [employer] [facility] [employer] Other HbA1c (Bld) [Mass fraction] 103 mg/dL [employer] [facility] [employer] Other Glucose [Mass/Vol] 103 mg/dL Normal [facility] Comment on above: Result Comment: PERF ORMED BY: [place] [address] PATHOLOGIST SUPERVISOR [employer] KULWANT GOMEZ M.D. Performed By: #### C BC, TSH3, CMP, A1C WT eA, LIPID #### [facility] [address] [place] [address] [place] HbA1c (Bld) [Mass fraction] 5.2 % Normal 4.3-5.6 [facility] Comment on above: Result Comment: Incr eased risk for diabetes: 5.7 - 6.4 diabetes: >6.4 glycemic control for adults with diabetes: <7.0 Performed By: #### C BC, TSH3, CMP, A1C WT eA, LIPID #### [facility] [address] [place] [id number] [place] Albumin [Mass/volume] in Ser um or PlasmaOrdered By: Becky Romeo on 08-14-2022 Albumin [Mass/Vol] 3.9 g/dL 3.2-5.5 [facility] Basophils Auto (Bld) [#/Vol] Ordered By: Becky Romeo on 08-14-2022 Basophils (Bld) [#/Vol] 0.0 10*3/uL 0.0-0.2 [facility] Basophils/100 WBC Auto (Bld) Ordered By: Becky Romeo on 08-14-2022 Basophils/100 WBC (Bld) 0.6 % . [facility] Cholesterol [Mass/volume] in Serum or PlasmaOrdered By: Becky Romeo on 08-14-2022 Cholesterol [Mass/Vol] 195 mg/dL Normal 140-2 00 mg/dL [facility] Comment on above: Chol less than 200 m g/dl low riskChol 201-239 mg/dl borderline riskChol 240 mg/dl and greater high risk Cholesterol in LDL Calc [Mas s/Vol]Ordered By: Becky Romeo on 08-14-2022 Cholesterol in LDL [Mass/Vol] 146 mg/dL 0-100 [facility] Comment on above: LDL ATP III CLASSIFI CATIONLDL less than 100 mg/dL OptimalLDL 100-129 mg/dL Near or above optimalLDL 130-159 mg/dL Borderline highLDL 160-189 mg/dL HighLDL greater than 189 mg/dL Very high Cholesterol in VLDL Calc [Ma ss/Vol]Ordered By: Becky Romeo on 08-14-2022 Cholesterol in VLDL [Mass/Vol] 16 mg/dL [facility] Complete Blood Count Auto Di ffon 08-14-2022 Basophils (Bld) [#/Vol] 0.783715870 10*3/uL Normal 0.0-0.2 10*3/uL [employer] Other Basophils/100 WBC (Bld) 0.600 % . % [facility] [email or web address] Other Eosinophils (Bld) [#/Vol] 0.560835820 10*3/uL Normal 0.0-0.45 10*3/uL [employer] Other Eosinophils/100 WBC (Bld) 2.300 % . % [employer] Other Erythrocyte distribution width (RBC) [Ratio] 12.400 % Normal 11.9-15.3 % [employer] Other Hematocrit (Bld) [Volume fraction] 39.700 % Normal 34.0-46.4 % [employer] Other Hemoglobin (Bld) [Mass/Vol] 13.806609 g/dL Normal 11.8-15.4 g/dL [employer] Other Lymphocytes (Bld) [#/Vol] 1.772779440 10*3/uL Normal 1.00-4.8 10*3/uL [employer] Other Lymphocytes/100 WBC (Bld) 22.500 % . % [employer] Other MCH (RBC) [Entitic mass] 30.2000 pg Normal 24.7-34.3 pg [employer] Other MCV (RBC) [Entitic vol] 90.5000 fL Normal 80-100 fL [facility] [email or web address] Other Monocytes (Bld) [#/Vol] 0.880455383 10*3/uL Normal 0.0-0.8 10*3/uL [employer] Other Monocytes/100 WBC (Bld) 6.800 % . % [facility] [email or web address] Other Neutrophils (Bld) [#/Vol] 3.513776500 10*3/uL Normal 1.8-7.7 10*3/uL [employer] Other Neutrophils/100 WBC (Bld) 67.800 % . % [employer] Other Platelet mean volume (Bld) [Entitic vol] 9.0000 fL Normal 6.3-10.7 fL [employer] Other WBC (Bld) [#/Vol] 5.485568370 10*3/uL Normal 3.8 -11.6 10*3/uL [employer] Other Complete Blood Count Auto Diff 5.6 10*3/uL Normal 3.8-11.6 10*3/uL [employer] Other Complete Blood Count Auto Diff 33.4 g/dL Normal 32.0-35.0 g/dL [employer] Other Complete Blood Count Auto Diff 0.3 /100{WBC} Normal 0-0.5 /100{WBC} [employer] Other Basophils (Bld) [#/Vol] 0.0 10*3/uL Normal 0.0-0.2 [facility] Comment on above: Result Comment: PERF ORMED BY: [place] [address] PATHOLOGIST SUPERVISOR [employer] KULWANT GOMEZ M.D. Performed By: #### C BC, TSH3, CMP, A1C [facility] eA, LIPID #### [facility] [address] [place] [id number] [place] Basophils/100 WBC (Bld) 0.6 % Normal . [facility] Comment on above: Performed By: #### C BC, TSH3, CMP, A1C [facility] eA, LIPID #### [facility] [address] [place] [id number] [place] Eosinophils (Bld) [#/Vol] 0.1 10*3/uL Normal 0.0-0.45 [facility] Comment on above: Performed By: #### C BC, TSH3, CMP, A1C WTH eA, LIPID #### [facility] [address] [place] [address] [place] Eosinophils/100 WBC (Bld) 2.3 % Normal . [facility] Comment on above: Performed By: #### C BC, TSH3, CMP, A1C WTH eA, LIPID #### [address] Erythrocyte distribution width (RBC) [Ratio] 12.4 % Normal 11.9-15.3 [facility] Comment on above: Performed By: #### C BC, TSH3, CMP, A1C WTH eA, LIPID #### [address] Hematocrit (Bld) [Volume fraction] 39.7 % Normal 34.0-46.4 [facility] Comment on above: Performed By: #### C BC, TSH3, CMP, A1C WTH eA, LIPID #### [address] Hemoglobin (Bld) [Mass/Vol] 13.2 g/dL Normal 11.8-15.4 [facility] Comment on above: Performed By: #### C BC, TSH3, CMP, A1C WTH eA, LIPID #### [facility] [address] [place] [address] [place] Lymphocytes (Bld) [#/Vol] 1.3 10*3/uL Normal 1.00-4.8 [facility] Comment on above: Performed By: #### C BC, TSH3, CMP, A1C WTH eA, LIPID #### [facility] [address] [place] [address] [place] Lymphocytes/100 WBC (Bld) 22.5 % Normal . [facility] Comment on above: Performed By: #### C BC, TSH3, CMP, A1C WTH eA, LIPID #### [address] MCH (RBC) [Entitic mass] 30.2 pg Normal 24.7-34.3 [facility] Comment on above: Performed By: #### C BC, TSH3, CMP, A1C WTH eA, LIPID #### [facility] [address] MCV (RBC) [Entitic vol] 90.5 fL Normal 80-[address] [facility] Comment on above: Performed By: #### C BC, TSH3, CMP, A1C WTH eA, LIPID #### [facility] [address] Mean Corpuscular HGB Conc 33.4 g/dL Normal 32.0-35.0 [facility] Comment on above: Performed By: #### C BC, TSH3, CMP, A1C WTH eA, LIPID #### [address] Monocytes (Bld) [#/Vol] 0.4 10*3/uL Normal 0.0-0.8 [facility] Comment on above: Performed By: #### C BC, TSH3, CMP, A1C WTH eA, LIPID #### [facility] [address] [place] [address] Monocytes/100 WBC (Bld) 6.8 % Normal . [facility] Comment on above: Performed By: #### C BC, TSH3, CMP, A1C WTH eA, LIPID #### [facility] [address] [place] [address] [place] Neutrophils (Bld) [#/Vol] 3.8 10*3/uL Normal 1.8-7.7 [facility] Comment on above: Performed By: #### C BC, TSH3, CMP, A1C WTH eA, LIPID #### [facility] [address] [place] [address] [place] Neutrophils/100 WBC (Bld) 67.8 % Normal . [facility] Comment on above: Performed By: #### C BC, TSH3, CMP, A1C WTH eA, LIPID #### [place] [address] [place] NRBC% 0.3 /100{WBC} Normal 0-0.5 [facility] Comment on above: Performed By: #### C BC, TSH3, CMP, A1C WTH eA, LIPID #### [facility] [address] Platelet mean volume (Bld) [Entitic vol] 9.0 fL Normal 6.3-10.7 [facility] Comment on above: Performed By: #### C BC, TSH3, CMP, A1C WTH eA, LIPID #### [facility] [address] Platelets (Bld) [#/Vol] 232 10*3/uL Normal 150-450 [facility] Comment on above: Performed By: #### C BC, TSH3, CMP, A1C WTH eA, LIPID #### [facility] [address] RBC (Bld) [#/Vol] 4.38 10*6/uL Normal 3.60-5.00 [facility] Comment on above: Performed By: #### C BC, TSH3, CMP, A1C WTH eA, LIPID #### [facility] [address] WBC (Bld) [#/Vol] 5.6 10*3/uL Normal 3.8-11.6 [facility] Comment on above: Performed By: #### C BC, TSH3, CMP, A1C WTH eA, LIPID #### [facility] [address] [place] [address] Comprehensive Metabolic Pane amandeep 08-14-2022 Albumin [Mass/Vol] 3.186106 g/dL Normal 3.2-5.5 g/dL [employer] Other Bilirubin [Mass/Vol] 0.1071628 mg/dL Normal 0.3- 1.2 mg/dL [employer] Other Calcium [Mass/Vol] 9.1135852 mg/dL Normal 8.2-10 .2 mg/dL [employer] Other CO2 [Moles/Vol] 23.66970463 mmol/L Normal 22.0-3 0.0 mmol/L [employer] Other Creatinine [Mass/Vol] 0.80211271 mg/dL Normal 0. 44-1.03 mg/dL [employer] Other Potassium [Moles/Vol] 3.88874785 mmol/L Normal 3 .5-5.1 mmol/L [employer] Other Protein [Mass/Vol] 6.324154 g/dL Normal 6.1-7.9 g/dL [facility] [email or web address] Other Comprehensive Metabolic Panel > 60 [employer] Other Comprehensive Metabolic Panel 2.7 g/dL [employer] Other Albumin [Mass/Vol] 3.9 g/dL Normal 3.2-5.5 [facility] Comment on above: Performed By: #### C BC, TSH3, CMP, A1C WTH eA, LIPID #### [facility] [address] [place] [address] [place] Albumin/Globulin [Mass ratio] 1.4 {ratio} Normal [facility] Comment on above: Performed By: #### C BC, TSH3, CMP, A1C WTH eA, LIPID #### [facility] [address] [place] [address] [place] ALP [Catalytic activity/Vol] 69 U/L Normal 32-92 [facility] Comment on above: Performed By: #### C BC, TSH3, CMP, A1C WTH eA, LIPID #### [facility] [address] [place] [address] [place] ALT [Catalytic activity/Vol] 34 U/L Normal 10-60 [employer] Other Comment on above: Performed By: #### C BC, TSH3, CMP, A1C WTH eA, LIPID #### [facility] [address] [place] [address] [place] Anion gap [Moles/Vol] 9.7 mmol/L Normal 6.0-15.0 [facility] Comment on above: Performed By: #### C BC, TSH3, CMP, A1C WTH eA, LIPID #### [facility] [address] AST [Catalytic activity/Vol] 30 U/L Normal 10-42 [facility] Comment on above: Performed By: #### C BC, TSH3, CMP, A1C WTH eA, LIPID #### [facility] [address] Bilirubin [Mass/Vol] 0.7 mg/dL Normal 0.3-1.2 [facility] Comment on above: Performed By: #### C BC, TSH3, CMP, A1C WTH eA, LIPID #### [facility] [address] Calcium [Mass/Vol] 9.2 mg/dL Normal 8.2-10.2 [facility] Comment on above: Performed By: #### C BC, TSH3, CMP, A1C WTH eA, LIPID #### [facility] [address] Chloride [Moles/Vol] 108 mmol/L Normal 95-114 [facility] Comment on above: Performed By: #### C BC, TSH3, CMP, A1C WTH eA, LIPID #### [facility] [address] CO2 [Moles/Vol] 23.1 mmol/L Normal 22.0-30.0 [facility] Comment on above: Performed By: #### C BC, TSH3, CMP, A1C WTH eA, LIPID #### [facility] [address] [place] [address] [place] Creatinine [Mass/Vol] 0.75 mg/dL Normal 0.44-1.03 [facility] Comment on above: Performed By: #### C BC, TSH3, CMP, A1C WTH eA, LIPID #### [facility] [address] [place] [address] [place] Estimated GFR ( Queenie > 60 Normal [facility] Comment on above: Result Comment: GFR estimated reference range: According to KDOQI guidelines, <60 ml/min/1.73m2 is sufficient to diagnose a patient with chronic kidney disease. Performed By: #### C BC, TSH3, CMP, A1C WTH eA, LIPID #### [facility] [address] [place] [address] [place] Estimated GFR (Non- Am > 60 Normal [facility] Comment on above: Performed By: #### C BC, TSH3, CMP, A1C WTH eA, LIPID #### [facility] [address] [place] [address] [place] Globulin (S) [Mass/Vol] 2.7 g/dL Normal [facility] Comment on above: Performed By: #### C BC, TSH3, CMP, A1C WTH eA, LIPID #### [facility] [address] Glucose [Mass/Vol] 87 mg/dL Normal 70-100 [facility] Comment on above: Result Comment: [place] Glucose Reference Range is dependent on time and content of last meal. Glucose of more than 200 mg/dL in a nonstressed, ambulatory subject supports the diagnosis of Diabetes Mellitus. ADA recommended reference range Performed By: #### C BC, TSH3, CMP, A1C WTH eA, LIPID #### [facility] [address] [place] [address] [place] Potassium [Moles/Vol] 3.8 mmol/L Normal 3.5-5.1 [facility] Comment on above: Performed By: #### C BC, TSH3, CMP, A1C WTH eA, LIPID #### [facility] [address] [place] [address] [place] Protein [Mass/Vol] 6.6 g/dL Normal 6.1-7.9 [facility] Comment on above: Performed By: #### C BC, TSH3, CMP, A1C WTH eA, LIPID #### [facility] [address] [place] [address] [place] Sodium [Moles/Vol] 137 mmol/L Normal 136-146 [facility] Comment on above: Performed By: #### C BC, TSH3, CMP, A1C WT eA, LIPID #### [facility] [address] [place] [id number] [place] Urea nitrogen [Mass/Vol] 5 mg/dL Low 9- [facility] Comment on above: Performed By: #### C BC, TSH3, CMP, A1C WTH eA, LIPID #### [facility] [address] [place] [address] [place] Creatinine and Glomerular fi ltration rate.predicted panel (S/P/Bld)Ordered By: Becky Romeo on 08-14-2022 Creatinine [Mass/Vol] 0.75 mg/dL 0.44-1.03 [facility] Eosinophils Auto (Bld) [#/Vo l]Ordered By: Becky Romeo on 08-14-2022 Eosinophils (Bld) [#/Vol] 0.1 10*3/uL 0.0-0.45 [facility] Eosinophils/100 WBC Auto (Bl d)Ordered By: Becky Romeo on 08-14-2022 Eosinophils/100 WBC (Bld) 2.3 % . [facility] Erythrocyte distribution wid th Auto (RBC) [Ratio]Ordered By: Becky Romeo on 08-14-2022 Erythrocyte distribution width (RBC) [Ratio] 12.4 % 11.9-15.3 [facility] Erythrocytes [#/volume] in B lood by Automated countOrdered By: Becky Romeo on 08-14-2022 RBC (Bld) [#/Vol] 4.38 10*6/uL Normal 3.60-5.00 [facility] Estimated glomerular filtrat ion rate (GFR) non- AmericanOrdered By: Becky Romeo on 08-14-2022 GFR/1.73 sq M.predicted among non-blacks MDRD (S/P/Bld) [Vol rate/Area] > 60 mL/Min [facility] Globulin Calc (S) [Mass/Vol] Ordered By: Becky Romeo on 08-14-2022 Globulin (S) [Mass/Vol] 2.7 g/dL [facility] Hematocrit Auto (Bld) [Volum e fraction]Ordered By: Becky Romeo on 08-14-2022 Hematocrit (Bld) [Volume fraction] 39.7 % 34.0-46.4 [facility] Hemoglobin [Mass/volume] in BloodOrdered By: Becky Romeo on 08-14-2022 Hemoglobin (Bld) [Mass/Vol] 13.2 g/dL 11.8-15.4 [facility] Leukocytes [#/volume] correc kalyani for nucleated erythrocytes in Blood by Automated counOrdered By: Becky Romeo on 08-14-2022 WBC corrected for nucl RBC Auto (Bld) [#/Vol] 5.6 10*3/uL 3.8-11.6 [facility] Lipid Panelon 08-14-2022 Cholesterol in LDL Elph Qn 146 mg/dL High 0-100 mg/dL [facility] [employer] Other Lipid Panel 84 mg/dL Normal 35-149 mg/dL [facility] [employer] Other Lipid Panel 16 mg/dL [facility] [employer] Other Cholesterol [Mass/Vol] 195 mg/dL Normal 140-200 [facility] Comment on above: Result Comment: Chol less than 200 mg/dl low risk Chol 201-239 mg/dl borderline risk Chol 240 mg/dl and greater high risk Performed By: #### C BC, TSH3, CMP, A1C WTH eA, LIPID #### [facility] [address] [place] [id number] [place] Cholesterol in HDL [Mass/Vol] 32 mg/dL Low 35-85 [facility] Comment on above: Result Comment: HDL CHOL ATP-III CLASSIFICATION Cardiovascular Risk HDL > or equal to 60 mg/dL LOW HDL < 40 mg/dL HIGH Performed By: #### C BC, TSH3, CMP, A1C WTH eA, LIPID #### [facility] [address] [place] [id number] [facility] Cholesterol.total/Vero sterol in HDL [Mass ratio] 6.1 {ratio} Normal <5.0 [facility] Comment on above: Performed By: #### C BC, TSH3, CMP, A1C WTH eA, LIPID #### [facility] [address] [place] [address] [place] LDL Cholesterol,Calculated 146 mg/dL High 0-100 [facility] Comment on above: Result Comment: LDL ATP III CLASSIFICATION LDL less than 100 mg/dL Optimal LDL 100-129 mg/dL Near or above optimal LDL 130-159 mg/dL Borderline high LDL 160-189 mg/dL High LDL greater than 189 mg/dL Very high Performed By: #### C BC, TSH3, CMP, A1C WT eA, LIPID #### [facility] [address] Triglyceride w/Reflex 84 mg/dL Normal 35-149 [facility] Comment on above: Result Comment: TRIG ATP III CLASSIFICATION TRIG less than 150 mg/dL Normal TRIG 150-199 mg/dL Borderline high TRIG 200-500 mg/dL High TRIG greater than 500 mg/dL Very high Standard traceable to the Center for Disease Conrtrol and Prevention (CDC) test method. Performed By: #### C BC, TSH3, CMP, A1C WT eA, LIPID #### [facility] [address] VLDL CHOLESTEROL 16 mg/dL Normal [facility] Comment on above: Performed By: #### C BC, TSH3, CMP, A1C [facility] eA, LIPID #### [facility] [address] Lymphocytes Auto (Bld) [#/Vo l]Ordered By: Becky Romeo on 08-14-2022 Lymphocytes (Bld) [#/Vol] 1.3 10*3/uL 1.00-4.8 [facility] Lymphocytes/100 WBC Auto (Bl d)Ordered By: Becky Romeo on 08-14-2022 Lymphocytes/100 WBC (Bld) 22.5 % . [facility] MCH Auto (RBC) [Entitic mass ]Ordered By: Becky Romoe on 08-14-2022 MCH (RBC) [Entitic mass] 30.2 pg 24.7-34.3 [facility] MCHC Auto (RBC) [Mass/Vol]Or dered By: Becky Romeo on 08-14-2022 MCHC (RBC) [Mass/Vol] 33.4 g/dL 32.0-35.0 [facility] MCV Auto (RBC) [Entitic vol] Ordered By: Becky Romeo on 08-14-2022 MCV (RBC) [Entitic vol] 90.5 fL 80-[address] [facility] Monocytes Auto (Bld) [#/Vol] Ordered By: Becky Romeo on 08-14-2022 Monocytes (Bld) [#/Vol] 0.4 10*3/uL 0.0-0.8 [facility] Monocytes/100 WBC Auto (Bld) Ordered By: Becky Romeo on 08-14-2022 Monocytes/100 WBC (Bld) 6.8 % . [facility] Neutrophils Auto (Bld) [#/Vo l]Ordered By: Becky Romeo on 08-14-2022 Neutrophils (Bld) [#/Vol] 3.8 10*3/uL 1.8-7.7 [facility] Neutrophils/100 WBC Auto (Bl d)Ordered By: Becky Romeo on 08-14-2022 Neutrophils/100 WBC (Bld) 67.8 % . [facility] No Panel InformationOrdered By: Becky Romeo on 08-14-2022 Estimated GFR () > 60 mL/Min [facility] Comment on above: GFR estimated refere nce range: According to KDOQI guidelines, <60 ml/min/1.73m2 is sufficient to diagnose a patient with chronic kidney disease. Pharmacy Creatinine Clearance (Chem N/A [facility] Nucleated erythrocytes [Pres ence] in Blood by Automated countOrdered By: Bekcy Romeo on 08-14-2022 Nucleated RBC Auto Ql (Bld) 0.3 /100{WBC} 0-0.5 [facility] Platelet mean volume Auto (B ld) [Entitic vol]Ordered By: Becky Romeo on 08-14-2022 Platelet mean volume (Bld) [Entitic vol] 9.0 fL 6.3-10.7 [facility] Platelets [#/volume] in Bloo d by Automated countOrdered By: Becky Romeo on 08-14-2022 Platelets (Bld) [#/Vol] 232 10*3/uL Normal 150- 450 10*3/uL [facility] Protein [Mass/volume] in Ser um or PlasmaOrdered By: Becky Romeo on 08-14-2022 Protein [Mass/Vol] 6.6 g/dL 6.1-7.9 [facility] Serum or plasma alanine kinsey otransferase measurement without P-5'-P (enzymatic activiOrdered By: Becky Romeo on 08-14-2022 ALT No additional P-5'-P [Catalytic activity/Vol] 34 U/L 10-60 [facility] Serum or plasma albumin/glob ulin mass ratioOrdered By: Becky Romeo on 08-14-2022 Albumin/Globulin [Mass ratio] 1.4 {ratio} [facility] Serum or plasma alkaline jean claude sphatase measurement (enzymatic activity/volume)Ordered By: Becky Romeo on 08-14-2022 ALP [Catalytic activity/Vol] 69 U/L Normal 32-92 U/L [facility] Serum or plasma anion gap de terminationOrdered By: Becky Romeo on 08-14-2022 Anion gap [Moles/Vol] 9.7 mmol/L 6.0-15.0 [facility] Serum or plasma aspartate am inotransferase measurement (enzymatic activity/volume)Ordered By: Becky Romeo on 08-14-2022 AST [Catalytic activity/Vol] 30 U/L Normal 10-42 U/L [facility] Serum or plasma calcium daily urement (mass/volume)Ordered By: Becky Romeo on 08-14-2022 Calcium [Mass/Vol] 9.2 mg/dL 8.2-10.2 [facility] Serum or plasma chloride julisa surement (moles/volume)Ordered By: Becky Romeo on 08-14-2022 Chloride [Moles/Vol] 108 mmol/L Normal 95-114 mmol/L [facility] Serum or plasma glucose daily urement (mass/volume)Ordered By: Becky Romeo on 08-14-2022 Glucose [Mass/Vol] 87 mg/dL Normal 70-100 mg/dL [facility] Comment on above: ADA recommended refe rence rangeRandom Glucose Reference Range is dependent on time and content of last meal. Glucose of more than 200 mg/dL in a nonstressed, ambulatory subject supports the diagnosis of Diabetes Mellitus. Serum or plasma high density lipoprotein (HDL) cholesterol measurementOrdered By: Becky Romeo on 08-14-2022 Cholesterol in HDL [Mass/Vol] 32 mg/dL Low 35-85 mg/dL [facility] Comment on above: HDL CHOL ATP-III CLA SSIFICATION Cardiovascular RiskHDL > or equal to 60 mg/dL LOWHDL < 40 mg/dL HIGH Serum or plasma potassium me asurement (moles/volume)Ordered By: Becky Romeo on 08-14-2022 Potassium [Moles/Vol] 3.8 mmol/L 3.5-5.1 [facility] Serum or plasma sodium measu rement (moles/volume)Ordered By: Becky Romeo on 08-14-2022 Sodium [Moles/Vol] 137 mmol/L Normal 136-146 mmol/L [facility] Serum or plasma total biliru bin measurement (mass/volume)Ordered By: Becky Romeo on 08-14-2022 Bilirubin [Mass/Vol] 0.7 mg/dL 0.3-1.2 [facility] Serum or plasma total carbon dioxide measurement (moles/volume)Ordered By: Becky Romeo on 08-14-2022 CO2 [Moles/Vol] 23.1 mmol/L 22.0-30.0 [facility] Serum or plasma total choles terol/high density lipoprotein (HDL) cholesterol mass ratOrdered By: Becky Romeo on 08-14-2022 Cholesterol.total/Vero sterol in HDL [Mass ratio] 6.1 {ratio} <5.0 [facility] Serum or plasma urea nitroge n measurement (mass/volume)Ordered By: Becky Romeo on 08-14-2022 Urea nitrogen [Mass/Vol] 5 mg/dL Low 9-23 mg/dL [facility] TSH DL <= 0.005 mIU/L QnOrde red By: Becky Romeo on 08-14-2022 TSH Qn 1.77 m[IU]/L 0.45-5.33 [facility] Thyroid Stimulating Hormoneo n 08-14-2022 TSH Qn 1.77 m[IU]/L Normal 0.45-5.33 [facility] Comment on above: Result Comment: PERF ORMED BY: [place] [address] PATHOLOGIST SUPER[employer]OR [employer] KULWANT GOMEZ M.D. Performed By: #### C BC, TSH3, CMP, A1C WTH eA, LIPID #### [address] Triglyceride [Mass/volume] i n Serum or PlasmaOrdered By: Becky Romeo on 08-14-2022 Triglyceride [Mass/Vol] 84 mg/dL 35-[address] [facility] Comment on above: TRIG ATP III CLASSIF ICATIONTRIG less than 150 mg/dL NormalTRIG 150-199 mg/dL Borderline highTRIG 200-500 mg/dL High TRIG greater than 500 mg/dL Very highStandard traceable to the Center for Disease Conrtrol and Prevention (CDC) test method. WBC Auto (Bld) [#/Vol]Ordere d By: Becky Romeo on 08-14-2022 WBC (Bld) [#/Vol] 5.6 10*3/uL 3.8-11.6 [facility] XR chest 2V*on 08-13-2022 XR chest 2V* [facility] [address] [place] [address] XRay Report Signed Patient: Edwige Patterson MR#: [id number] : 2000 Acct:[id number] Age/Sex: 22 / F ADM Date: 08/13/22 [facility] Attending Dr: Becky Romeo DO Copies [...] Misbah Mast M.D.08/13/2022 3:23 PM Dictation Location: [facility]- Transcribed By: [facility] 08/13/22 1523 Dictated By: Misbah Mast DO 08/13/22 1522 Signed By: 08/13/22 1523 [facility] XR chest 2V* [facility] [employer] Other XR chest 2V* [facility] Main [facility] [employer] Other XR chest 2V* [address] [place] [address] [employer] Other XR chest 2V* [place] [address] [facility] [email or web address] Other XR chest 2V* XRay Report [email or web address] [email or web address] Other XR chest 2V* Signed [employer] Other XR chest 2V* Patient: Edwige Patterson MR#: [id number] [email or web address] Other XR chest 2V* [id number] [employer] Other XR chest 2V* : 2000 Acct:[id number] [employer] Other XR chest 2V* Age/Sex: 22 / F ADM Date: 08/13/22 [employer] Other XR chest 2V* Loc: [facility] Room: Type : [facility] [employer] Other XR chest 2V* Attending Dr: Diane Romeo DO [employer] Other XR chest 2V* Copies to: Becky Romeo, DO [employer] Other XR chest 2V* Ordering Provider: Becky Romeo, DO [employer] Other XR chest 2V* Date of Service: 08/13/22 [employer] Other XR chest 2V* XR/XR chest 2V*: Cough, unspecified type [employer] Other XR chest 2V* Plain film chest2 view [employer] Other XR chest 2V* HISTORY:Productive cough. Wheezing. [employer] Other XR chest 2V* COMPARISON:None [employer] Other XR chest 2V* FINDINGS: The cardiac, mediastinal and hilar silhouettes are within normal limits. No acute lung [employer] Other XR chest 2V* process, pleural effusion or pneumothorax identified. Bony structures are intact. [employer] Other XR chest 2V* XR/XR chest 2V* [employer] Other XR chest 2V* IMPRESSION: No acute process. [employer] Other XR chest 2V* Impression dictated by: Misbah Mast M.D.08/13/2022 3:23 PM [employer] Other XR chest 2V* Dictation Location: [place] [address] [employer] Other XR chest 2V* Transcribed By: DOMINIQUE 08/13/22 [facility] [employer] Other XR chest 2V* Dictated By: Misbah Mast DO 08/13/22 [facility] [employer] Other XR chest 2V* Signed By: [employer] Other XR chest 2V* 08/13/22 1523 [facility] [employer] Other Quick Strepon 02-08-2022 S. pyogenes Org specific cx Ql (Throat) Positive [facility] [employer] Other Quick Strep [employer] [facility] [employer]BE Security Master Other COVID Quick Testingon 2021 Result Negative [employer] Other COVID + FLU Quick Testingon 07-03-2021 SARS-CoV-2 (COVID-19) RNA THA+probe Ql (Unsp spec) Positive [employer] Other COVID + FLU Quick Testing Negative [employer] Other Q - THINPREP(R) TIS AND HPV MRNA E6/E7 RFL HPV 16/18/45on 06-20-2021 CLINICAL INFORMATION: None given Normal [facility] Specialist Comment on above: Order Comment: [facility] Testing performed at: [facility], [address] [place] [address], [address] [place] [address], [phone], Plumbing Drafter: Ramana Taylor MD Testing performed at: [facility], [address] [place] [address], [phone], Plumbing Drafter: Mani Anderson [facility] Collection Date/Time: [facility] Results Received Date/Time: [facility] Reported Date/Time: FASTING: UNKNOWN Result Comment: [QBU ] Performed By: #### 9 1414 #### [facility] Default [address] [place] [address] COMMENT SEE NOTE Normal [facility] Manager Of Revenue Comment on above: Order Comment: [facility] Testing performed at: [facility], [address] [place] [address], [address] [place] [address], [phone], Plumbing Drafter: Ramana Taylor MD Testing performed at: [facility] [facility], [address] [place], [phone], Plumbing Drafter: Mani Anderson [facility] Collection Date/Time: [id number] [facility] Results Received Date/Time: [facility] Reported Date/Time: [...] 9 1414 #### [facility] Default [address] [place] [address] COMMENT: This Pap test has been evaluated with computer assisted technology. Normal [facility] Manager Of Revenue Comment on above: Order Comment: [facility] Testing performed at: [facility], [address] [place] [address], [address] [place] [address], [phone], Plumbing Drafter: Ramana Taylor MD Testing performed at: [facility], [address] [place] [address], [phone], Plumbing Drafter: Mani Anderson [facility] Collection Date/Time: [id number] [facility] Results Received Date/Time: [facility] Reported Date/Time: FASTING: UNKNOWN Result Comment: [QBU ] Performed By: #### 9 1414 #### [facility] Default [address] [place] [address] WATER SUPERINTENDENT: SEE NOTE Normal See Note: [facility] Comment on above: Order Comment: [facility] Testing performed at: [facility], [address] [place] [address], [address] [place] [address], [phone], Plumbing Drafter: Ramana Taylor MD Testing performed at: [facility], [address] [place] [address], [phone], Plumbing Drafter: Mani Anderson [facility] Collection Date/Time: [id number] [facility] Results Received Date/Time: [facility] Reported Date/Time: FASTING: UNKNOWN Result Comment: Refe rence Range: ZL, CT(ASCP) CT screening location: [place] [address]. [QBU] Performed By: #### 9 1414 #### [facility] Default [address] [place] [address] GENERAL CATEGORIZATION: EPITHELIAL CELL ABNORMALITY Abnormal [facility] Comment on above: Order Comment: [facility] Testing performed at: [facility] [employer], [address] [place] [address], [address] [place] [address], Plumbing Drafter: Ramana Taylor MD Testing performed at: [facility], [address] [place] [address], [phone], Plumbing Drafter: Mani Anderson [facility] Collection Date/Time: [facility] Results Received Date/Time: [facility] Reported Date/Time: FASTING: UNKNOWN Result Comment: [QBU ] Performed By: #### 9 1414 #### [facility] Default [address] [place] [address] HPV mRNA E6/E7 Detected Abnormal Not Detected [facility] Comment on above: Order Comment: [facility] Testing performed at: [employer], [address] [place] [address], Plumbing Drafter: Ramana Taylor MD Testing performed at: [facility], [address] [place] [address], [phone], Plumbing Drafter: Mani Anderson [facility] Collection Date/Time: [facility] Results Received Date/Time: [facility] Reported Date/Time: FASTING: UNKNOWN Result Comment: Meth odology: Control And Recovery [employer]-Mediated Amplification This assay detects E6/E7 viral messenger RNA (mRNA) from 14 high-risk HPV types (16,18,31,33,35,39,45,51,52,56,58,59,66,68). The analytical performance characteristics of this assay have been determined by [employer]. The modifications have not been cleared or approved by the FDA. This assay has been validated pursuant to the CLIA regulations and is used for clinical purposes. For additional information, please refer to [email or web address].[employer].Podio/faq/MTU566s8 (This link if provided for information/ educational purposes only.) [O6K] Performed By: #### 9 1414 #### [facility] Default [address] [place] [address] INTERPRETATION/RESULT: Atypical Squamous Cells of Undetermined Significance (ASC-US) Abnormal [facility] Manager Of Revenue Comment on above: Order Comment: [facility] Testing performed at: [facility], [address] [place] [address], [address] [place] [address], [address] [place] [address], Plumbing Drafter: Ramana Taylor MD Testing performed at: [facility], [address] [place] [address], [phone], Plumbing Drafter: Mani Anderson [facility] Collection Date/Time: [facility] Results Received Date/Time: [facility] Reported Date/Time: FASTING: UNKNOWN Result Comment: [QBU ] Performed By: #### 9 1414 #### [facility] Default [address] [place] [address] LMP: None given Normal [facility] Specialist Comment on above: Order Comment: [facility] Testing performed at: [facility], [address] [place] [address], [address] [place] [address], [address] [place] [address], Plumbing Drafter: Ramana Taylor MD Testing performed at: [facility], [address] [place] [address], [phone], Plumbing Drafter: Mani Anderson [facility] Collection Date/Time: [id number] [facility] Results Received Date/Time: [facility] Reported Date/Time: FASTING: UNKNOWN Result Comment: [QBU ] Performed By: #### 9 1414 #### [facility] Default [address] [place] [address] PATHOLOGIST: SEE NOTE Normal [facility] Manager Of Revenue Comment on above: Order Comment: [facility] Testing performed at: [facility], [address] [place] [address], [address] [place] [address], [address] [place] [address], Plumbing Drafter: Ramana Taylor MD Testing performed at: [facility], [address] [place] [address], [address] [place] [address], Plumbing Drafter: Mani Anderson [facility] Collection Date/Time: [facility] Results Received Date/Time: [facility] Reported Date/Time: FASTING: UNKNOWN Result Comment: Vance Anderson MD, PhD, M.B.A. Board Certified in Anatomic and Clinical Pathology Board Certified in Cytopathology (electronic signature) For questions regarding this report call Anatomic Pathology at [phone] [[facility]] Performed By: #### 9 1414 #### [facility] Default [address] [place] [address] PREV. BX: None given Normal [facility] Comment on above: Order Comment: [facility] Testing performed at: [facility], [address] [place] [address], [address] [place] [address], [address] [place] [address], Plumbing Drafter: Ramana Taylor MD Testing performed at: [facility], [address] [place] [address], [address] [place] [address], Plumbing Drafter: Mani Anderson Quest Collection Date/Time: [facility] Results Received Date/Time: [facility] Reported Date/Time: FASTING: UNKNOWN Result Comment: [Q ] Performed By: #### 9 [id number] #### [facility] Default [address] [place] [address] PREV. PAP: None given Normal [facility] Comment on above: Order Comment: [facility] Testing performed at: [facility], [address] [place] [address], [address] [place] [address], [address] [place] [address], Plumbing Drafter: Ramana Taylor MD Testing performed at: [facility], [address] [place] [address], [address] [place] [address], Plumbing Drafter: Mani Anderson Quest Collection Date/Time: [id number] [facility] Results Received Date/Time: [facility] Reported Date/Time: FASTING: UNKNOWN Result Comment: [QBU ] Performed By: #### 9 [id number] #### [facility] [address] [place] [address] SOURCE: None given Normal [place] [employer] Comment on above: Order Comment: [facility] Testing performed at: [facility], [facility], [address] [place] [address], [address] [place] [address], [address] [place] [address], Plumbing Drafter: Ramana Taylor MD Testing performed at: [employer], [facility], [address] [place] [address], [address] [place] [address], Plumbing Drafter: Mani Anderson Quest Collection Date/Time: [facility] Results Received Date/Time: [facility] Reported Date/Time: FASTING: UNKNOWN Result Comment: [QBU ] Performed By: #### 9 1414 #### [facility] Default [address] [place] [address] STATEMENT OF ADEQUACY: SEE NOTE Normal [place] [employer] Comment on above: Order Comment: [facility] Testing performed at: [facility], [facility], [address] [place] [address], [address] [place] [address], [address] [place] [address], Plumbing Drafter: Ramana Taylor MD Testing performed at: [facility], [address] [place] [address], [address] [place] [address], Plumbing Drafter: Mani Anderson Quest Collection Date/Time: [facility] Results Received Date/Time: [facility] Reported Date/Time: FASTING: UNKNOWN Result Comment: Sati sfactory for evaluation. Endocervical/transformation zone component present. [QBU] Performed By: #### 9 [id number] #### [facility] Default [address] [place] [address] XR Finger Lefton 06-20-2021 XR Finger Left FINDINGS: PIP soft tissue swelling. Minimally distracted volar plate fracture, middle phalangeal base. Minimal arthritis. IMPRESSION: Minimally distracted 4th PIP joint volar plate fracture Report reported and signed by Hubert Lewis on 06/20/2021 1443 Normal [facility] PREG HCG QUALon 05-19-2020 , QUAL Negative Normal NEGATIVE [facility] Comment on above: Performed By: #### P REG #### [facility] [address], [place] [address] Liam Ayala COVID-19 PCRon 05-14-2020 SARS-CoV-2 (COVID-19) RNA THA+probe Ql (Unsp spec) Not detected Normal Not Detected [facility] Comment on above: Result Comment: This nucleic acid amplification test was developed and its performance characteristics determined by [employer]. Nucleic acid amplification tests include PCR and [...] Performed By: #### C VDSTAT, CVDPCR #### [facility] [address], [place] [address] Liam Ayala PRIORITY COVID PROCESSINGon 05-14-2020 Comment Comment Normal [facility] Comment on above: Result Comment: Rece ived Performed By: #### C VDSTAT, CVDPCR #### [facility] [address], [place] [address] Liam Ayala Vital Signs Date Time Vital Sign Value Performing Clinician Facility 02-14-2025 17:17-0400 Body height 167.6 cm Jovita Salas CNM Work Phone: [facility] 02-14-2025 17:17-0400 Body mass index (BMI) [Ratio] 38.9 kg/m2 Jovita Salas CNM Work Phone: [facility] 02-14-2025 17:17-0400 Body weight 109.32 kg Jovita Salas CNM Work Phone: [facility] 02-14-2025 17:17-0400 Diastolic blood pressure 78 mm[Hg] Jovita Salas CNM Work Phone: [facility] 02-14-2025 17:17-0400 Heart rate 78 /min Jovita Salas CNM Work Phone: [facility] 02-14-2025 17:17-0400 Respiratory rate 18 /min Jovita Salas CNM Work Phone: [facility] 02-14-2025 17:17-0400 SaO2% (BldA) [Mass fraction] 98 % Jovita Salas CNM Work Phone: [facility] 02-14-2025 17:17-0400 Systolic blood pressure 130 mm[Hg] Jovita Salas CNM Work Phone: [facility] 01-11-2025 09:15-0400 Body height 170.18 cm Becky Romeo DO Work Phone: [facility] 01-11-2025 09:15-0400 Body mass index (BMI) [Ratio] 37.6 kg/m2 Becky Pierrearvinyumiko DO Work Phone: [facility] 01-11-2025 09:15-0400 Body weight 109.1 kg Becky Hernandezernestineyumiko DO Work Phone: [facility] 12-03-2024 14:00-0400 Heart rate 90 /min Ness Majors PHOTOGRAMMETRIC TECH Work Phone: [facility] 12-03-2024 13:44-0400 Body height 167.6 cm Ness Majors PHOTOGRAMMETRIC TECH Work Phone: [facility] 12-03-2024 13:44-0400 Body mass index (BMI) [Ratio] 39.38 kg/m2 Ness Montez PHOTOGRAMMETRIC TECH Work Phone: [facility] 12-03-2024 13:44-0400 Body weight 110.68 kg Ness Montez PHOTOGRAMMETRIC TECH Work Phone: [facility] 12-03-2024 13:44-0400 Diastolic blood pressure 82 mm[Hg] Ness Montez PHOTOGRAMMETRIC TECH Work Phone: [facility] 12-03-2024 13:44-0400 Respiratory rate 18 /min Ness Montez PHOTOGRAMMETRIC TECH Work Phone: [facility] 12-03-2024 13:44-0400 SaO2% (BldA) [Mass fraction] 97 % Ness Montez PHOTOGRAMMETRIC TECH Work Phone: [facility] 12-03-2024 13:44-0400 Systolic blood pressure 134 mm[Hg] Ness Montez PHOTOGRAMMETRIC TECH Work Phone: [facility] 11-24-2024 13:12-0400 SaO2% (BldA) [Mass fraction] 94 % Bceky Pierrefariba DO Work Phone: [facility] [employer] 11-24-2024 13:00-0400 Body temperature 98.01 [degF] Becky Pierrefariba DO Work Phone: [facility] 11-24-2024 13:00-0400 Diastolic blood pressure 76 mm[Hg] Becky Ousmane DO Work Phone: [facility] 11-24-2024 13:00-0400 Heart rate 89 /min Becky Ousmane DO Work Phone: [facility] 11-24-2024 13:00-0400 Respiratory rate 16 /min Becky Ousmane DO Work Phone: [facility] 11-24-2024 13:00-0400 Systolic blood pressure 117 mm[Hg] Becky Romeo DO Work Phone: [facility] 08-10-2024 16:06-0500 Body height 167.6 cm Jovita Salas CN Work Phone: [facility] 08-10-2024 16:06-0500 Body mass index (BMI) [Ratio] 39.64 kg/m2 Jovita Salas CNM Work Phone: [facility] 08-10-2024 16:06-0500 Body weight 111.4 kg Jovita ROBERTS Work Phone: [facility] 08-10-2024 16:06-0500 Diastolic blood pressure 70 mm[Hg] Jovita Salas CNM Work Phone: [facility] 08-10-2024 16:06-0500 Systolic blood pressure 118 mm[Hg] Jovita Salas CNM Work Phone: [facility] 08-05-2024 10:19-0500 Body temperature 98.4 [degF] Priyank Gaspar MD Work Phone: [facility] 08-05-2024 10:19-0500 Diastolic blood pressure 56 mm[Hg] Priyank Gaspar MD Work Phone: [facility] 08-05-2024 10:19-0500 Heart rate 114 /min Priyank Gaspar MD Work Phone: [facility] [employer] 08-05-2024 10:19-0500 Respiratory rate 18 /min Priyank Gaspar MD Work Phone: [facility] 08-05-2024 10:19-0500 SaO2% (BldA) [Mass fraction] 97 % Priyank Gaspar MD Work Phone: [facility] 08-05-2024 10:19-0500 Systolic blood pressure 97 mm[Hg] Priyank Gaspar MD Work Phone: [facility] [employer] 07-20-2024 18:12-0500 SaO2% (BldA) [Mass fraction] 97 % Yoli Lal MD Work Phone: [employer] 07-20-2024 15:37-0500 Body height 170.2 cm Yoli Lal MD Work Phone: [facility] 07-20-2024 15:37-0500 Body mass index (BMI) [Ratio] 37.59 kg/m2 Yoli Lal MD Work Phone: [facility] 07-20-2024 15:37-0500 Body temperature 98.29 [degF] Yoli Lal MD Work Phone: [facility] 07-20-2024 15:37-0500 Body weight 108.86 kg Yoli Lal MD Work Phone: [facility] 07-20-2024 15:37-0500 Diastolic blood pressure 76 mm[Hg] Yoli Lal MD Work Phone: [facility] 07-20-2024 15:37-0500 Heart rate 100 /min Yoli Lal MD Work Phone: [facility] 07-20-2024 15:37-0500 Respiratory rate 18 /min Yoli Lal MD Work Phone: [facility] 07-20-2024 15:37-0500 Systolic blood pressure 110 mm[Hg] Yoli Lal MD Work Phone: [facility] 05-24-2024 08:46-0500 Body height 167.6 cm Destinee Britton MD Work Phone: [facility] 05-24-2024 08:46-0500 Body mass index (BMI) [Ratio] 39 kg/m2 Destinee Britton MD Work Phone: [facility] 05-24-2024 08:46-0500 Body weight 109.59 kg Destinee Britton MD Work Phone: [facility] 05-24-2024 08:46-0500 Diastolic blood pressure 74 mm[Hg] Destinee Britton MD Work Phone: [facility] 05-24-2024 08:46-0500 Heart rate 91 /min Destinee Britton MD Work Phone: [facility] 05-24-2024 08:46-0500 Respiratory rate 18 /min Destinee Britton MD Work Phone: [facility] 05-24-2024 08:46-0500 SaO2% (BldA) [Mass fraction] 97 % Destinee Britton MD Work Phone: [facility] 05-24-2024 08:46-0500 Systolic blood pressure 114 mm[Hg] Destinee Britton MD Work Phone: [facility] 05-20-2024 15:22-0500 Body height 167.6 cm Destinee Britton MD Work Phone: [facility] 05-20-2024 15:22-0500 Body mass index (BMI) [Ratio] 39.96 kg/m2 Destinee Britton MD Work Phone: [facility] 05-20-2024 15:22-0500 Body weight 112.31 kg Destinee Britton MD Work Phone: [facility] 05-20-2024 15:22-0500 Diastolic blood pressure 72 mm[Hg] Destinee Britton MD Work Phone: [facility] 05-20-2024 15:22-0500 Heart rate 116 /min Destinee Britton MD Work Phone: [facility] 05-20-2024 15:22-0500 Respiratory rate 18 /min Destinee Britton MD Work Phone: [facility] 05-20-2024 15:22-0500 SaO2% (BldA) [Mass fraction] 99 % Destinee Britton MD Work Phone: [facility] 05-20-2024 15:22-0500 Systolic blood pressure 134 mm[Hg] Destinee Britton MD Work Phone: [facility] 05-10-2024 13:59-0500 Body mass index (BMI) [Ratio] 39.87 kg/m2 Jovita Floro [facility] Work Phone: [facility] 05-10-2024 13:59-0500 Body weight 112.04 kg Jovita Salas [facility] Work Phone: [facility] 11-11-2023 14:36-0400 Diastolic blood pressure 76 mm[Hg] [facility] 11-11-2023 14:36-0400 Heart rate 92 /min [facility] 11-11-2023 14:36-0400 Respiratory rate 20 /min [facility] 11-11-2023 14:36-0400 Systolic blood pressure 104 mm[Hg] [facility] 10-10-2023 11:51-0400 Body height 170.18 cm [facility] 10-10-2023 11:51-0400 Body mass index (BMI) [Ratio] 38.2 kg/m2 [facility] 10-10-2023 11:51-0400 Body weight 110.67 kg [facility] 10-10-2023 11:51-0400 Diastolic blood pressure 81 mm[Hg] [facility] 10-10-2023 11:51-0400 Heart rate 78 /min [facility] 10-10-2023 11:51-0400 SaO2% (BldA) [Mass fraction] 96 % [facility] 10-10-2023 11:51-0400 Systolic blood pressure 128 mm[Hg] [facility] 07-09-2023 13:00-0500 Body height 170.18 cm Becky Romeo Other [employer] [facility] [employer] Other 07-09-2023 13:00-0500 Body mass index (BMI) [Ratio] 36.96 kg/m2 Becky Ousmane Other [employer] [facility] [employer] Other 07-09-2023 13:00-0500 Body temperature 97.6 [degF] Becky Romeo Other [employer] Other 07-09-2023 13:00-0500 Body weight 107.05 kg Becky Romeo Other [employer] Other 07-09-2023 13:00-0500 Diastolic blood pressure 69 mm[Hg] Becky Romeo Other [employer] Other 07-09-2023 13:00-0500 Respiratory rate 20 /min Becky Romeo Other [employer] Other 07-09-2023 13:00-0500 SaO2% (BldA) [Mass fraction] 97 % Becky Romeo Other [employer] Other 07-09-2023 13:00-0500 Systolic blood pressure 109 mm[Hg] Becky Romeo Other [employer] Other 12-09-2022 11:05-0400 Body height 170.18 cm Lexy Menamond Other [employer] Other 12-09-2022 11:05-0400 Body mass index (BMI) [Ratio] 38.52 kg/m2 Lexy Abena Other [employer] Other 12-09-2022 11:05-0400 Body temperature 97.8 [degF] Lexy Menamond Other [employer] Other 12-09-2022 11:05-0400 Body weight 111.59 kg Lexy Menamond Other [employer] Other 12-09-2022 11:05-0400 Respiratory rate 18 /min Lexy Abena Other [employer] Other 12-09-2022 11:05-0400 SaO2% (BldA) [Mass fraction] 98 % Lexy Kraft Other [employer] Other 08-12-2022 16:00-0500 Body height 170.18 cm Becky Romeo Other [employer] Other 08-12-2022 16:00-0500 Body mass index (BMI) [Ratio] 39.62 kg/m2 Becky Romeo Other [employer] Other 08-12-2022 16:00-0500 Body weight 114.76 kg Becky Romeo Other [employer] Other 08-12-2022 16:00-0500 Diastolic blood pressure 71 mm[Hg] Becky Romeo Other [employer] Other 08-12-2022 16:00-0500 Respiratory rate 16 /min Becky Romeo Other [employer] Other 08-12-2022 16:00-0500 SaO2% (BldA) [Mass fraction] 98 % Becky Romeo Other [employer] Other 08-12-2022 16:00-0500 Systolic blood pressure 107 mm[Hg] Becky Romeo Other [employer] Other 02-08-2022 12:00-0400 Body height 167.64 cm Joselin Wilkins Other [employer] Other 08-03-2022 18:45-0400 Body height 167.64 cm Lexy Kraft Other [employer] Other 02-06-2022 18:45-0400 Body mass index (BMI) [Ratio] 37.12 kg/m2 Lexy Kraft Other [employer] Other 02-06-2022 18:45-0400 Body temperature 97.3 [degF] Lexy Kraft Other [employer] Other 02-06-2022 18:45-0400 Body weight 104.33 kg Lexy Kraft Other [employer] Other 02-06-2022 18:45-0400 Respiratory rate 18 /min Lexy Kraft Other [employer] Other 02-06-2022 18:45-0400 SaO2% (BldA) [Mass fraction] 97 % Lexy Kraft Other [employer] Other Encounters Encounter Date Encounter Type Care Provider Facility Start: 03-21-2025 End: 03-21-2025 Bamboo flowsheet Ryandestini Barger WIRE SPLICER [facility] Start: 03-21-2025 End: 03-21-2025 Bamboo flowsheet Ryandestini Barger WIRE SPLICER [facility] Start: 03-21-2025 End: 03-21-2025 Treatment Ryandestini Barger WIRE SPLICER [facility] Comment on above: Sacrococcygeal disor ders, not elsewhere classified (Primary Dx) Start: 03-16-2025 End: 03-16-2025 ambulatory NUBIA STEPHENS [facility] [place] Start: 03-15-2025 End: 03-15-2025 Treatment Ryan Barger WIRE SPLICER [facility] Comment on above: Sacrococcygeal disor ders, not elsewhere classified (Primary Dx) Start: 03-15-2025 End: 03-15-2025 Bamboo flowsheet Ryandestini Barger WIRE SPLICER [facility] Start: 03-15-2025 End: 03-15-2025 Bamboo flowsheet Ryandestini Barger WIRE SPLICER [facility] Start: 03-02-2025 End: 03-02-2025 Treatment Ryan Barger WIRE SPLICER [facility] Comment on above: Sacrococcygeal disor ders, not elsewhere classified (Primary Dx) Start: 03-02-2025 End: 03-02-2025 Bamboo flowsheet Ryan Barger WIRE SPLICER [facility] Start: 03-02-2025 End: 03-02-2025 Bamboo flowsheet Ryan Barger WIRE SPLICER [facility] Start: 02-28-2025 End: 02-28-2025 Treatment Delia Kwan PT [facility] Comment on above: Sacrococcygeal disor ders, not elsewhere classified (Primary Dx) Start: 02-28-2025 End: 02-28-2025 Bamboo flowsheet Delia Kwan PT [facility] Start: 02-28-2025 End: 02-28-2025 Bamboo flowsheet Delia Kwan PT [facility] Start: 02-23-2025 End: 02-23-2025 ambulatory [facility] Start: 02-21-2025 End: 02-21-2025 ambulatory Ty Fairbanks MD Facility: [facility] Start: 02-15-2025 End: 02-15-2025 ambulatory Kem Igor WIRE SPLICER [facility] Start: 02-15-2025 End: 02-15-2025 Telephone encounter Destinee Britton MD Work Phone: [facility] Comment on above: Sacrococcygeal disor ders, not elsewhere classified (Primary Dx) Start: 02-14-2025 End: 02-14-2025 Office outpatient visit 15 minutes Jovita Salas CNM Work Phone: [facility] Comment on above: PCOS (polycystic ova melvin syndrome) (Primary Dx); Encounter for initial prescription of contraceptive pills; Insulin resistance Start: 02-14-2025 End: 02-14-2025 Bamboo flowsheet Jovita Hung Rosarioo CN Work Phone: [facility] Start: 02-14-2025 End: 02-14-2025 Bamboo flowsheet Jovita Hung Floro CN Work Phone: [facility] Start: 02-01-2025 End: 02-01-2025 Treatment Kem Costa WIRE SPLICER [facility] Comment on above: Sacrococcygeal disor ders, not elsewhere classified (Primary Dx) Start: 02-01-2025 End: 02-01-2025 Bamboo flowsheet Kem Igor WIRE SPLICER [facility] Start: 02-01-2025 End: 02-01-2025 Bamboo flowsheet Kem Costa WIRE SPLICER [facility] Start: 01-27-2025 End: 01-27-2025 Treatment Ofelia Blakely WIRE SPLICER [facility] Comment on above: Sacrococcygeal disor ders, not elsewhere classified (Primary Dx) Start: 01-27-2025 End: 01-27-2025 Bamboo flowsheet Ofelia Blakely WIRE SPLICER [facility] Start: 01-27-2025 End: 01-27-2025 Bamboo flowsheet Ofelia Blakely WIRE SPLICER [facility] Start: 01-24-2025 End: 01-25-2025 Evaluation Delia Kwan PT [facility] Comment on above: Sacrococcygeal disor ders, not elsewhere classified (Primary Dx) Start: 01-24-2025 End: 01-24-2025 Bamboo flowsheet Delia Kwan PT [facility] Start: 01-24-2025 End: 01-24-2025 Enochboo flowsheet Delia Kwan PT [facility] Start: 01-20-2025 End: 01-20-2025 ambulatory [place] Pasquale [facility] Start: 01-11-2025 End: 01-11-2025 ambulatory Becky Romeo DO Work Phone: [facility] Work Phone: Start: 01-11-2025 End: 01-11-2025 Patient encounter procedure Feliz Musa MD -[facility] Work Phone: Start: 01-06-2025 End: 01-06-2025 ambulatory Becky Ousmane DO Work Phone: [facility] Work Phone: Start: 01-06-2025 End: 01-06-2025 Patient encounter procedure Mack Zimmerman DO -[facility] Work Phone: Start: 01-05-2025 End: 01-05-2025 ambulatory Becky Romeo DO Facility:[facility] Start: 12-27-2024 End: 12-27-2024 ambulatory Ty Fairbanks MD Facility:[facility] Start: 12-16-2024 End: 12-16-2024 ambulatory [facility] Start: 12-03-2024 End: 12-03-2024 Telephone encounter Destinee Britton MD Work Phone: [facility] Start: 12-03-2024 End: 12-03-2024 Office outpatient visit 25 minutes Ness Montez PHOTOGRAMMETRIC TECH Work Phone: [facility] Comment on above: Nausea (Primary Dx); Pain of upper abdomen Start: 12-01-2024 Non-patient / Non-visit Lacey Morton OPTICAL LABORATORY TECHNICIAN [facility] Work Phone: Start: 11-24-2024 End: 11-24-2024 Emergency department patient visit [facility] Comment on above: Acute exacerbation o f chronic low back pain (Primary Dx) Start: 11-11-2024 End: 11-11-2024 ambulatory [facility] Start: 10-14-2024 End: 10-14-2024 ambulatory CHAD W [facility] Start: 09-17-2024 End: 09-17-2024 ambulatory NUBIA Cavazos ANGELO [facility] Start: 09-16-2024 End: 09-16-2024 ambulatory CHAD Giordano [facility] Start: 09-13-2024 End: 09-13-2024 ambulatory Ty Fairbanks MD Facility:[facility] Start: 08-30-2024 End: 08-30-2024 ambulatory Ty Fairbanks MD Facility:[facility] Start: 08-26-2024 End: 08-26-2024 ambulatory CHAD Giordano [facility] Start: 08-16-2024 End: 08-16-2024 ambulatory Ty Fairbanks MD Facility:[facility] Start: 08-12-2024 End: 08-12-2024 ambulatory CHAD Giordano [facility] Start: 08-10-2024 End: 08-10-2024 Office outpatient visit [...] patient visit Priyank Gaspar MD Work Phone: [facility] Emergency Department Comment on above: Acute exacerbation o f chronic low back pain (Primary Dx) Start: 07-20-2024 End: 07-20-2024 Emergency department patient visit Yoli Lal MD Work Phone: [facility] Department Comment on above: Strain of lumbar reg ion, initial encounter (Primary Dx); Abnormal computed tomography of lumbar spine Start: 07-15-2024 End: 07-15-2024 ambulatory CHAD Giordano [facility] Start: 06-25-2024 End: 06-25-2024 ambulatory CHAD Giordano [facility] Start: 06-02-2024 End: 07-16-2024 Refill Destinee Britton MD Work Phone: [facility] Comment on above: Encounter for initia l prescription of contraceptive pills Start: 05-28-2024 End: 05-28-2024 ambulatory NUBIA Cavazos [facility] Start: 05-27-2024 End: 05-27-2024 ambulatory CHAD Giordano [facility] Start: 05-24-2024 End: 05-24-2024 Bamboo flowsheet Destinee [...] Office outpatient visit 15 minutes Jovita Salas ALEJANDRA Work Phone: [facility] Comment on above: PCOS (polycystic ova melvin syndrome) (Primary Dx); Normal gynecologic examination; Screening for cervical cancer; Other acne; Hirsutism Start: 04-22-2024 End: 04-22-2024 ambulatory CHAD Giordano [facility] Start: 03-25-2024 End: 03-25-2024 ambulatory CHAD Giordano [facility] Start: 11-11-2023 End: 11-11-2023 ambulatory [facility] Work Phone: Start: 11-11-2023 End: 11-11-2023 Patient encounter procedure [facility] Work Phone: Start: 10-10-2023 End: 10-10-2023 ambulatory [facility] Work Phone: Start: 10-10-2023 End: 10-10-2023 Patient encounter procedure [facility] Work Phone: Start: 07-09-2023 End: 07-09-2023 ambulatory Becky Romeo Other [employer] Other Start: 07-09-2023 Office outpatient vi sit [address] [facility] Start: 12-11-2022 End: 12-11-2022 ambulatory Becky Romeo Other [employer] Other Start: 12-11-2022 Telephone encounter Becky Romero i [facility] Start: 12-09-2022 Office outpatient vi sit 15 minutes Lexy Kraft [facility] Start: 12-09-2022 End: 12-09-2022 ambulatory PHYSICIAN [facility] [email or web address] Other Start: 12-09-2022 End: 12-09-2022 Patient encounter procedure PHYSICIAN NO [facility] Work Phone: Start: 09-27-2022 End: 09-27-2022 ambulatory Becky Romeo Other [employer] Other Start: 09-27-2022 Telephone encounter Becky Rome yumiko [facility] Start: 08-14-2022 End: 08-14-2022 ambulatory Becky Romeo Facility:[facility] Start: 08-14-2022 End: 08-14-2022 ambulatory PHYSICIAN NO [facility] Work Phone: Start: 08-14-2022 End: 08-14-2022 Patient encounter procedure PHYSICIAN NO [facility] [place] Work Phone: Start: 08-13-2022 End: 08-13-2022 ambulatory Becky Romeo Facility:[facility] Start: 08-13-2022 End: 08-13-2022 Patient encounter procedure PHYSICIAN NO [facility]-XRay [place] Start: 08-13-2022 End: 08-13-2022 ambulatory PHYSICIAN NO [facility] Work Phone: Start: 08-13-2022 Telephone encounter Becky Romero i [facility] Start: 08-12-2022 End: 08-12-2022 ambulatory Becky Romeo Other [employer] Other Start: 08-12-2022 Encounter for genera l adult medical examination without abnormal findings Becky Romeo [facility] [place] Start: 08-12-2022 Periodic preventive med est patient 18-39 yrs Beckybettye Romeo [facility] [place] Start: 05-20-2022 End: 05-20-2022 ambulatory Becky Romeo Other [employer] Other Start: 05-20-2022 Telephone encounter Becky Hernandezernestine yumiko [facility] Start: 02-08-2022 End: 02-08-2022 ambulatory Becky Romeo Other [employer] Other Start: 02-08-2022 Office outpatient vi sit [address] [facility] Start: 02-08-2022 Telephone encounter Becky Pierrearvin yumiko [facility] Start: 02-06-2022 End: 02-06-2022 ambulatory Lexy Menamond Other [employer] Other Start: 02-06-2022 Office outpatient vi sit 15 minutes Lexy Menamond [facility] Start: 07-03-2021 End: 07-03-2021 ambulatory Becky Hernandezernestineyumiko Other [employer] Other Start: 07-03-2021 Office outpatient vi sit [address] [facility] Start: 05-19-2020 End: 05-19-[address] ROGE THACKER Facility:H1 Start: 05-16-2020 Encounter for other preprocedural examination SUYAPA JACKSON [facility] Start: 05-13-2020 End: 05-14-2020 ambulatory [facility] Facility:H1 Start: 05-11-2020 End: 05-12-2020 ambulatory [facility] Facility:H1 Start: 05-11-2020 End: 05-12-2020 Encounter for other preprocedural examination [facility] Facility:H1 Start: 03-23-2020 End: 03-24-[address] DESTINEE BRITTON Facility:[facility]1 Start: 02-29-2020 End: 03-01-2020 ambulatory [facility] Facility:H1 Start: 03-30-2019 End: 03-30-2019 Patient encounter procedure Radha Aguilera [facility] Procedures Date Procedure Procedure Detail Performing Clinician Start: 12-03-2024 Urnls dip stick/tabl et rgnt non-auto w/o micrscp Ness Montez PHOTOGRAMMETRIC TECH Work Phone: Start: 07-20-2024 Ct lumbar spine [...] Start: 03-30-2019 X-ray of left ankle Donte Aguilera Plan of Treatment Date Care Activity Detail Author Start: 08-15-2025 End: 08-15-2025 Patient encounter procedure 08/15/2025 5:30 PM EST Office Visit BIANCA RAPP [address] [place] [id number] Jovita Salas, ALEJANDRA [address] [place] [address] BIANCA RAPP Start: 04-11-2025 End: 04-11-2025 ambulatory 04/11/2025 5:30 PM EDT Treatment [facility] [address] [facility] [address] [place] [address] Delia Kwan, PT [facility] Start: 04-04-2025 End: 04-04-2025 ambulatory 04/04/2025 5:30 PM EDT Treatment [facility] [address] [facility] [address] [place] [address] Delia Kwan, PT [facility] Start: 03-29-2025 End: 03-29-2025 ambulatory 03/29/2025 5:30 PM EDT Treatment [facility] [address] [place] [address] Ryan Barger PTA [facility] Start: 03-24-2025 End: 03-24-2025 ambulatory 03/24/2025 6:00 PM EDT Treatment [facility] [address] [place] [address] Ofelia Blakely PTA [facility] Start: 03-21-2025 End: 03-21-2025 ambulatory [facility] Comment on above: Arrived Start: 03-15-2025 End: 03-15-2025 ambulatory 03/15/2025 5:30 PM EDT Treatment [facility] [address] [place] [address] Ryan Barger PTA Arrived [facility] Comment on above: Arrived Start: 03-07-2025 Influenza vaccination Influenza Vacc ine (#1) [facility] Start: 03-02-2025 End: 03-02-2025 ambulatory 03/02/2025 5:30 PM EDT Treatment [facility] [address] [place] [address] Ryan Barger PTA [facility] Start: 02-28-2025 End: 02-28-2025 ambulatory 02/28/2025 6:00 PM EDT Treatment [facility] [address] [place] [address] Delia Kwan, PT [facility] Start: 02-24-2025 End: 02-24-2025 ambulatory 02/24/2025 6:00 PM EDT Treatment [facility] [address] [place] [address] Ofelia Blakely, NATI [facility] Start: 02-15-2025 End: 02-15-2025 ambulatory 02/15/2025 6:00 PM EDT Treatment [facility] [address] [place] [address] Kem Costa PTA [facility] Start: 02-14-2025 End: 02-14-2025 Patient encounter procedure [facility] [place] [facility] Comment on above: Arrived Start: 02-08-2025 End: 02-08-2025 Patient encounter procedure 02/08/2025 4:00 PM EDT Office Visit [facility] [address] [place] [phone] Jovita Salas, CNM [address] [place], [place] [phone] [facility] Start: 02-01-2025 End: 02-01-2025 ambulatory [facility] Comment on above: Arrived Start: 01-27-2025 End: 01-27-2025 ambulatory [facility] Comment on above: Arrived Start: 01-24-2025 End: 01-24-2025 Evaluation 01/24/2025 6:00 PM EDT Evaluation [facility] [address] [place] [address] Delia Kwan, PT Sacrococcygeal disorders, not elsewhere [...] 12-03-2024 End: 12-03-2025 XR Abdomen Single view [facility] Work Phone: Comment on above: Expected: 12/03/2024 , Expires: 12/03/2025 Start: 12-03-2024 End: 12-03-2024 Patient encounter procedure 12/03/2024 1:30 PM EDT Office Visit [facility] [address] [place] [address] Ness Montez NP [address] [place], [place] [phone] [facility] Start: 08-10-2024 End: 08-10-2024 [...] EST Office Visit [facility] [address] [place] [phone] Jovita Salas, CNM [address] [place] [address] Arrived [facility] Comment on above: Arrived Start: 05-10-2024 End: 05-10-2025 THINPREP IMAGING PAP AND HPV DNA REFLEX HPV 16,18 THINPREP IMAGING PAP AND HPV DNA REFLEX HPV 16,18 Pathology and Cytology Routine Screening for cervical cancer Expected: 05/10/2024 (Approximate), Expires: 05/10/2025 [facility] Work Phone: Comment on above: Expected: 05/10/2024 (Approximate), Expires: 05/10/2025 Start: 03-07-2024 Influenza vaccination Influenza Vacc ine (#1) [facility] Start: 05-19-2023 DTaP/Tdap/Td vaccine (7 - Td or Tdap) DTaP/Tdap/Td vaccine (7 - Td or Tdap) [facility] Start: 08-14-2022 [facility] Start: 2021 Screening for malign ant neoplasm of cervix Pap smear [facility] Start: 2018 Hepatitis C screening Hepatitis C sc reen [facility] Start: 2016 Screening for Chlamy rafael trachomatis Chlamydia/GC screen [facility] Start: 2015 HIV screening HIV screen [facility] Start: 2015 HPV vaccine (1 - 3-d ose series) HPV vaccine (1 - 3-dose series) [facility] Start: 2012 Depression Screen Depression Screen [facility] CBC panel - Blood by Automated count CBC Lab Routine PCOS (polycystic ovarian syndrome) Ordered: 05/10/2024 [facility] Comment on above: Ordered: 05/10/2024 Glucose measurement estimated from glycated hemoglobin [facility] Hemoglobin A1c/Hemoglobin.total in Blood [facility] Hemoglobin A1c/Hemoglobin.total in Blood Hemoglobin A1c Lab Routine PCOS (polycystic ovarian syndrome) Ordered: 05/10/2024 [facility] Comment on above: Ordered: 05/10/2024 Immunizations Immunization Date Immunization Notes Care Provider Fa cility 04-29-2024 SARS-COV-2 (COVID-19 ) vaccine, mRNA, spike protein, LNP, PF, anuj-sucrose, 30 mcg/0.3 mL Destinee Britton MD Work Phone: [facility] 04-29-2024 Seasonal, trivalent, recombinant, injectable influenza vaccine, preservative free Destinee Britton MD Work Phone: [facility] 04-29-2024 influenza virus vacc ine, unspecified formulation Delia Kwan PT [facility] 07-10-2019 Influenza, injectabl e, Madin [place] Canine Kidney, preservative free, quadrivalent Destinee Britton MD Work Phone: [facility] 07-10-2019 influenza, seasonal, injectable Becky Romeo Other [facility] 07-10-2019 influenza virus vacc ine, unspecified formulation Jovita Salas ALEJANDRA Work Phone: [facility] 07-17-2018 Influenza, injectabl e, Madin [place] Canine Kidney, preservative free, quadrivalent Destinee Britton MD Work Phone: [facility] 03-02-2018 meningococcal polysaccharide (groups A, C, Y and W-135) diphtheria toxoid conjugate vaccine (MCV4P) Becky Romeo Other [facility] 05-19-2013 meningococcal polysaccharide (groups A, C, Y and W-135) diphtheria toxoid conjugate vaccine (MCV4P) Destinee Britton MD Work Phone: [facility] 05-19-2013 tetanus toxoid, redu latrice diphtheria toxoid, and acellular pertussis vaccine, adsorbed Destinee Britton MD Work Phone: [facility] 05-19-2013 varicella virus vaccine Destinee Britton MD Work Phone: [facility] 04-03-2006 diphtheria, tetanus toxoids and acellular pertussis vaccine, unspecified formulation Destinee Britton MD Work Phone: [facility] 04-03-2006 hepatitis B vaccine, pediatric or pediatric/adolescent dosage Destinee Britton MD Work Phone: [facility] 04-03-2006 measles, mumps and rubella virus vaccine Destinee Britton MD Work Phone: [facility] 04-03-2006 poliovirus vaccine, unspecified formulation Destinee Britton MD Work Phone: [facility] 04-03-2006 varicella virus vaccine Destinee Britton MD Work Phone: [facility] 03-03-2006 DTaP-hepatitis B and poliovirus vaccine Destinee Britton MD Work Phone: [facility] 03-03-2006 measles, mumps and rubella virus vaccine Destinee Britton MD Work Phone: [facility] 12-23-2001 measles, mumps and rubella virus vaccine Destinee Britton MD Work Phone: [facility] 09-17-2001 diphtheria, tetanus toxoids and acellular pertussis vaccine, unspecified formulation Destinee Britton MD Work Phone: [facility] 09-17-2001 haemophilus influenz ae type b vaccine, conjugate unspecified formulation Destinee Britton MD Work Phone: [facility] 2000 diphtheria, tetanus toxoids and acellular pertussis vaccine, unspecified formulation Destinee Britton MD Work Phone: [facility] 2000 haemophilus influenz ae type b vaccine, conjugate unspecified formulation Destinee Britton MD Work Phone: [facility] 2000 hepatitis B vaccine, pediatric or pediatric/adolescent dosage Destinee Britton MD Work Phone: [facility] 2000 poliovirus vaccine, unspecified formulation Destinee Britton MD Work Phone: [facility] 2000 haemophilus influenz ae type b vaccine, conjugate unspecified formulation Destinee Britton MD Work Phone: [facility] 2000 diphtheria, tetanus toxoids and acellular pertussis vaccine, unspecified formulation Destinee Britton MD Work Phone: [facility] 2000 poliovirus vaccine, unspecified formulation Destinee Britton MD Work Phone: [facility] 2000 diphtheria, tetanus toxoids and acellular pertussis vaccine, unspecified formulation Destinee Britton MD Work Phone: [facility] 2000 haemophilus influenz ae type b vaccine, conjugate unspecified formulation Destinee Britton MD Work Phone: [facility] 2000 hepatitis B vaccine, pediatric or pediatric/adolescent dosage Destinee Britton MD Work Phone: [facility] 2000 poliovirus vaccine, unspecified formulation Destinee Britton MD Work Phone: [facility] 2000 hepatitis B vaccine, pediatric or pediatric/adolescent dosage Destinee Britton MD Work Phone: [facility] Payers Date Payer Category Payer Unknown 2024 Unknown [id number] 2022 [facility] [id number] 2022 Self-pay [id number] 2022 [facility] 1.2.8 [id number] 15 2000 Unknown [id number] 2.16.84 0.1.329170.3.579.2.593 2000 Unknown [id number] 2.16.84 0.1.252241.3.579.2.593 2000 Unknown [id number] 2.16.84 0.1.492747.3.579.2.593 2000 Unknown [id number] 2.16.84 0.1.195252.3.579.2.593 2000 Unknown [id number] 2.16.84 0.1.958707.3.579.2.593 2000 Unknown [id number] 2.16.8 40.1.337280.3.579.2.173 2000 Unknown [id number] 2.16.8 40.1.728009.3.579.2.173 2000 Unknown [id number] 2.16.8 40.1.188841.3.579.2.173 2000 Unknown [id number] 2.16. 840.1.169854.3.579.2.196 2000 Unknown [id number] 2.16. 840.1.507722.3.579.2.196 2000 Unknown [id number] 2.16. 840.1.553166.3.579.2.196 2000 Unknown [id number] 2.16. 840.1.954849.3.579.2.196 2000 Unknown [id number] 2.16. 840.1.804423.3.579.2.196 2000 Unknown [id number] 2.16. 840.1.677767.3.579.2.196 2000 Unknown [id number] 2.16. 840.1.866403.3.579.2.1286 2000 Unknown [id number] 2.16. 840.1.426997.3.579.2.1286 2000 Unknown [id number] 2.16. 840.1.511606.3.579.2.1286 2000 Unknown [id number] 2.16. 840.1.540434.3.579.2.1286 2000 Unknown [id number] 2.16. 840.1.768650.3.579.2.1286 2000 Unknown [id number] 2.16. 840.1.655538.3.579.2.1286 2000 Unknown [id number] 2.16. 840.1.102855.3.579.2.1286 2000 Unknown [id number] 2.16. 840.1.572675.3.579.2.1285 2000 Unknown [id number] 2.16. 840.1.373823.3.579.2.128 2000 Unknown [id number] 2.16. 840.1.868906.3.579.2.1285 2000 Unknown [id number] 2.16. 840.1.927826.3.579.2.128 2000 Unknown [id number] 2.16.8 40.1.301129.3.579.2.1285 2000 Unknown [id number] 2.16.8 40.1.017657.3.579.2.128 2000 Unknown [id number] 2.16.8 40.1.170541.3.579.2.1285 2000 Unknown [id number] 2.16.8 40.1.218389.3.579.2.128 2000 Unknown [id number] 2.16.8 40.1.069840.3.579.2.1286 1959 Unknown [id number] 2.16.8 40.1.185798.3.579.2.531 Unknown [id number] 2.16.8 40.1.891943.3.579.2.531 Unknown [id number] 2.16.8 40.1.283604.3.579.2.531 Social History Date Type Detail Facility Tobacco smoking stat [facility] Unknown if ever smoked [facility] Start: 2000 Sex Assigned At Female [facility] Start: 12-04-2023 End: 05-20-2024 Sex Assigned At [facility] Start: 10-10-2023 Tobacco smoking status [facility] Unknown if ever smoked [facility] Start: 06-26-2023 End: 05-20-2024 Tobacco smoking status COIS Never smoked tobacco [facility] Start: 06-26-2023 [...] End: 12-03-2024 Alcoholic beverage intake Ex-drinker (finding) [facility] How often do you nee d to have someone help you when you read instructions, pamphlets, or other written material from your doctor or pharmacy [SILS] Never [facility] Do you belong to any clubs or organizations such as yazidism groups, unions, fraternal or athletic groups, or [...] To some extent [facility] (I/We) worried genesis er (my/our) food would run out before (I/we) got money to buy more. Never true [facility] Start: 05-20-2024 Tobacco Comment Currently Vape everyday [facility] Start: 07-20-2024 Tobacco smoking status COIS Ex-smoker [facility] [employer] [facility] History of tobacco use Current smoker [facility] [employer] History of tobacco use Cigarette Smoker B on [employer] Start: 2000 Sex assigned at Not on file [facility] Start: 08-16-2012 Sex Female (finding) Bill Pranay [employer] [employer] [facility] How often do you nee d to [...] to be instructed in home exercise program. 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 Date: documented in this encounter [facility] 02-15-2025 Telephone encount er Note Jackson left at 9:13 am Md, this is Jenn from [facility] in [place]. I am calling about a mutual patient. [...] be great. Our phone number here is [phone]. Again, this is Jenn from [email or web address] coming from a Main for Edwige Evans move 2000 for the spring tech or generic, nor just with [place], dial the control, calling the change quantity to 84 because they only come in back to 28 and we can not open the pack again, phone number [phone] if you want to call for change or send over a brand new prescription with the correct quantity of 84? Thank you. [facility] 02-15-2025 Miscellaneous Notes Formattin g of this note might be different from the original. Jackson left at 9:13 am Md, this is Jenn from [facility] in [place]. I am calling about a mutual patient. [...] be great. Our phone number here is [phone]. Again, this is Jenn from [facility] coming from a Main for Edwige Evans move 2000 for the spring tech or generic, nor just with Zamzam, dial the control, calling the change quantity to 84 because they only come in back to 28 and we can not open the pack again, phone number [phone] if you want to call for change or send over a brand new prescription with the correct quantity of 84? Thank you. documented in this encounter [facility] 02-14-2025 History of Presen t illness Narrative PROBLEM VISIT Edwige Patterson is 24 y.o. 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 [employer] Goals: To be met in 10 weeks [...] sign below. Date: documented in this encounter [facility] 01-06-2025 Evaluation note Diagnosis Onset Date Resolution Paresthesias acute January 06 2:55pm Pain of left sacroiliac joint acute January 11, 2025 9 :14am Pain of right sacroiliac joint acute January 11, 2025 9:14am Paresthesias acute January 11 9:14am [facility] Work Phone: [phone]) 821-417705-30-2025 History of Present illness Narrative* Ness Montez [...] prompting another visit to the ER in [place]. A diagnosis of viral gastroenteritis was made [...] HPI Flowsheet Row Documentation from 11/30/2024 in [facility] with Lorin [place], [place] Hospital Information ED, Hospital or Correction Facility Discharge? ED Patient has been contacted within 2 days of being seen in the ED Yes Diagnosis Viral Infection Discharge Date 11/28/24 Discharged To: Home Setting Discharge Hospital [facility] Engagement Call Start Time 1527 Admission Date 11/28/24 Medications Discharge medications reviewed [...] Advance Care Planning? No Call End Time 1522 SUBJECTIVE: MEDICATIONS: Current Outpatient Medications Medication Instructions [...] fluid intake and abstain from smoking marijuana. Anhk-mrv-thybwic MiraLAX can be used if constipation persists. [...] or other abnormalities. - Advised to use uutd-knk-evsawen MiraLAX if constipation persists and to increase fluid intake. - Blood work will be done to assess kidney and liver function. No follow-ups on file. documented in this encounterSaint [facility] [id number] Hospital Discharge instructions* Discharge Instructions* Alicia Dunn [...] sent through Care Everywhere. * Back Pain (Polish) [facility] History of Present illness Narrative* Jovita Salas, WILLOW - 08/10/2024 4:00 PM EST PROBLEM VISIT Edwige Patterson is 24 y.o. 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 * [facility] (Polish) [facility] Dis[facility]* Discharge Instructions* [...] through Care Everywhere. * Strain or Sprain (Polish) [facility] Telephone encounter Note* Telephone Encounter - Bess Lomeli - 06/02/2024 1:06 PM EST Pt called and left a vm at 12:41 pm today She said she has been waiting for her BC to be called over to [employer] but they haven't received anything. She asked if that can please be sent over. [facility] [id number] Miscellaneous Notes* Telephone Encounter - Bess Lomeli - 06/02/2024 1:06 PM EST Pt called and left a vm at 12:41 pm today She said she has been waiting for her BC to be called over to [employer] but they haven't received anything. She asked if that can please be sent over. documented in this encounterSaint Francis [facility] & Health [id number] History of Present illness Narrative* Destinee Britton [...] should contact the clinic. documented in this encounterSaint Francis Hospital & Health [id number] History of Present illness Narrative* Destinee Britton [...] child. 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 She is getting her master's degree [...] bite block during sleep. documented in this encounterSaint Francis Hospital & Health [id number] History of Present illness Narrative* Jovita Salas CNM - 05/10/2024 2:00 PM EST YEARLY HPI: This is a established patient. Chief Complaint Patient presents with Gynecologic Exam Here for annual exam. 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 Joselin Ypi MA, 05/10/2024 2:06 PM documented in this encounterSaint Francis Hospital & Health [id number] Evaluation note* Encounter Date Diagnosis Assessment Notes [...] will consider a PPI and GI consultation. [employer] Other 06-05-2023 Evaluation note* Encounter Date Diagnosis [...] no improvement in 5 to 7 days [employer] Other 02-06-2023 Evaluation note* Encounter Date Diagnosis [...] Screening for deficiency anemia (ICD-10 - Z13.0) [employer] Other 08-05-2022 Evaluation note* Encounter Date Diagnosis [...] understanding and is agreeable to treatment plan. [employer] Other 08-03-2022 Evaluation note* Encounter Date Diagnosis [...] no improvement in 2 to 3 days. [employer] Other 12-28-2021 Evaluation note* Encounter Date Diagnosis Assessment Notes Treatment Notes Treatment Clinical Notes Jun, Exposure to COVID-19 virus (ICD-10 - Z20.822) Jun, COVID-19 (ICD-10 - U07.1) Patient's rapid test is positive for Covid-19. She is given instructions for quarantine and supportive care. Call immediately for change/worsening or with questions/concerns. [employer] Other 11-13-2020 NotePROCEDURE: XR ANKLE RT MIN 3 VIEWS COMPARISON: 05/19/2020 intraprocedural, 04/02/2020 HISTORY: Postoperative care FINDINGS: BONES:No fracture, acute abnormality, or significant arthropathy. SOFT TISSUES:Post procedural soft tissue swelling, subcutaneous air and lateral surgical elaina EFFUSION:None visible. OTHER: Negative. IMPRESSION: Postprocedural changes Electronically authenticated by: ROGE THACKER Date: 2020-05-19 14:02[facility]11-13-2020 NotePROCEDURE: XR ANKLE RT 2V COMPARISON: [...] authenticated by: ROGE THACKER Date: 2020-05-19 14:00[facility]11-01-2020 History general Narrative - Reported* Type Description Date Medical History Chronic back pain Medical History Hx of concussion Medical History acne Medical History chronic depression Surgical History ankle reconstruction- right 2019 [employer] Other 09-17-2020 NotePROCEDURE: XR FOOT RT MIN 3 VIEWS COMPARISON: 02/29/2020 HISTORY: Pain in right foot FINDINGS: BONES:Stable intra-articular transverse fracture base of the fifth metatarsal. No acute fracture or dislocation SOFT TISSUES:Negative. No visible soft tissue swelling. EFFUSION:None visible. OTHER: Negative. IMPRESSION: Stable healing intra-articular transverse fracture base of the fifth metatarsal Electronically authenticated by: ROGE THACKER Date: 2020-03-23 10:22[facility]08-25-2020 NotePROCEDURE: XR ANKLE RT MIN 3 [...] authenticated by: ROGE THACKER Date: 2020-02-29 12:[id number] NotePROCEDURE: XR ANKLE RT MIN 3 VIEWS, [...] authenticated by: ROGE THACKER Date: 2020-02-29 12:57[facility]No DescribeMeNoUlmart Other Evaluation noteNo assessment information available [facility] Work Phone: Evaluation note* Diagnosis Onset Date Resolution Status Bilateral acute otitis media resolved [facility] Work Phone: Evaluation note* Diagnosis PCOS (polycystic ovarian syndrome)- Primary Polycystic ovaries Normal gynecologic examination Screening for cervical cancer Screening for malignant neoplasm of the cervix Other acne Hirsutism documented in this encounter [facility]* Diagnosis Candidiasis- Primary Acute nausea with nonbilious vomiting documented in this encounter [facility]* Diagnosis Candidiasis- Primary documented in this encounter [facility]* Diagnosis Encounter for initial prescription of contraceptive pills documented in this encounter [facility]* Diagnosis Strain of lumbar region, initial encounter- Primary Abnormal computed tomography of lumbar spine [facility] Diagnosis Acute exacerbation of chronic low back pain- Primary documented in this encounter [facility] [id number] [facility]* Diagnosis Acute exacerbation of chronic low back pain- Primary [facility] Diagnosis Nausea- Primary Nausea alone Pain of upper abdomen [facility]* Diagnosis Unwanted fertility- Primary PCOS (polycystic ovarian syndrome) Polycystic ovaries [facility]* Diagnosis Onset Date Resolution Status Admit Date Paresthesias acute January 06 2:55pm [facility] Work Phone: Evaluation note* Diagnosis Sacrococcygeal disorders, not elsewhere classified- Primary [facility]* Diagnosis Sacrococcygeal disorders, not elsewhere classified- Primary documented in this encounter [facility]* Diagnosis Sacrococcygeal disorders, not elsewhere classified- Primary documented in this encounter [facility]* Diagnosis PCOS (polycystic ovarian syndrome)- Primary Polycystic ovaries Encounter for initial prescription of contraceptive pills Insulin resistance Other abnormal glucose [facility]* Diagnosis Sacrococcygeal disorders, not elsewhere classified- Primary [facility]* Diagnosis Sacrococcygeal disorders, not elsewhere classified- Primary documented in this encounter [facility]* Diagnosis Sacrococcygeal disorders, not elsewhere classified- Primary documented in this encounter [facility]* Diagnosis Sacrococcygeal disorders, not elsewhere classified- Primary documented in this encounter [facility] HealthcareHistory general Narrative - Reported* Type Description Date Medical History Chronic back pain Medical History Hx of concussion Medical History acne [employer] Other History general Narrative - Reported* Type Description Date Medical History Chronic back pain Medical History Hx of concussion Medical History acne Medical History chronic depression [employer] Other Reason for referral (narrative)No reason for referral [facility] Work Phone: Reglsn for visit Narrative* Rehabilitation - Outpatient (Routine) - Authorized Specialty Diagnoses / Procedures Referred By Contzoraida hughes Referred To Contact Physical Therapy Diagnoses Sacrococcygeal disorders, not elsewhere classified Procedures SC PHYSICAL THERAPY EVALUATION LOW COMPLEX 20 MINS SC OFFICE/OUTPATIENT NEW HIGH MDM 60 MINUTES Musa, Feliz, MD [address] [place] [address], [address] [place] [address] Phone: tel: fax: Delia Kwan, PT Referral ID Status Reason Start Date Expiration Date V isits Requested Visits Authorized [id number] Authorized 01/24/2025 03/24/2025 6 6 [facility] Narrative* Rehabilitation - Outpatient (Routine) - Closed Specialty Diagnoses / Procedures Referred By Contac t Referred To Contact Physical Therapy Diagnoses Sacrococcygeal disorders, not elsewhere classified Procedures SC PHYSICAL THERAPY EVALUATION LOW COMPLEX 20 MINS SC OFFICE/OUTPATIENT NEW HIGH MDM 60 MINUTES Feliz Musa MD [address] [place] [address], [address] [place] [address] Phone: tel: fax: Delia Kwan, PT Referral ID Status Reason Start Date Expiration Date Visits Re quested Visits Authorized [id number] Closed 01/24/2025 03/24/2025 6 6 [facility] for [facility] Narrative* Rehabilitation - Outpatient (Routine) - Authorized Specialty Diagnoses / Procedures Referred By Contac t Referred To Contact Physical Therapy Diagnoses Sacrococcygeal disorders, not elsewhere classified Procedures SC THER PX 1/> AREAS EACH 15 MIN NEUROMUSC REEDUCA SC MANUAL THERAPY TQS 1/> REGIONS EACH 15 MINUTES SC THERAPEUTIC PX 1/> AREAS EACH 15 MIN EXERCISES PHYS/OCC THERAPY SS Feliz Musa MD [address] [place] [address], [address] [place] [address] Phone: tel: fax: Delia Kwan, PT Referral ID Status Reason Start Date Expiration Date V isits Requested Visits Authorized [id number] Authorized 03/09/2025 05/07/2025 6 6 [facility] Advance Directives Advance Directive Response Recorded [...] 6:50a m EMG BLE per Jazmin Yanez GROUND INTELLIGENCE OFFICER January 06 2:55pm Reason for Visit Admit Date Paresthesias January 06, 2025 2:55p m Chief Complaint Admit Date Amb Documentation December 01, 2024 6:50a m EMG BLE per Jazmin Yaenz GROUND INTELLIGENCE OFFICER January 06 2:55pm low back pain January [...] and content) DATE CREATED AUTHOR 01/04/2021 [facility] DATE CREATED AUTHOR AUTHOR'S ORGANIZ ATION 06/27/2021 [facility] dical Specialist DATE CREATED AUTHOR AUTHOR'S ORGANIZ ATION 12/16/2022 [facility] DATE CREATED AUTHOR AUTHOR'S ORGANIZ ATION 12/01/2024 [facility] DATE CREATED AUTHOR AUTHOR'S ORGANIZ ATION 02/26/2025 [facility] DATE CREATED AUTHOR AUTHOR'S ORGANIZ ATION 03/18/[address] [facility] [place] [facility] REASON FOR VISIT (unrecogniz ed section [...] Right lower back kristen n ongoing since 2017. MRI completed on Friday in [place]. 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 Relationship Specialty Start Date End Date Destinee Britton MD [address] [place] [address] PCP - General Family Medicine 11/12/22 Phototypesetter Operator Relationship Specialty Start Date End Date Destinee Britton MD [address] [facility] [place] [address] PCP - General Family Medicine 11/12/22 Phototypesetter Operator Relationship Specialty Start Date End Date Destinee Britton MD [address] [facility] [place] [address] PCP - General Family Medicine 11/12/22 Phototypesetter Operator Relationship Specialty Start Date End Date Destinee Britton MD [address] [facility] [place] [address] PCP - General Family Medicine 11/12/22 Phototypesetter Operator Relationship Specialty Start Date End Date Destinee Britton MD [address] [facility] [place] [address] PCP - General Family Medicine 11/12/22 Phototypesetter Operator Relationship Specialty Start Date End Date Becky Romeo DO NPI: [address] [place] [address];[address] [place] [address] PCP - General Family Medicine 07/20/24 Phototypesetter Operator Relationship Specialty Start Date End Date Becky Romeo DO NPI: [address] [place] [address];[address] [place] [address] PCP - General Family Medicine 07/20/24 Phototypesetter Operator Relationship Specialty Start Date End Date Becky Romeo DO NPI: [address] [place] [address];[address] [place] [address] PCP - General Family Medicine 07/20/24 Phototypesetter Operator Relationship Specialty Start Date End Date Destinee Britton MD [address] [facility] [place] [address] PCP - General Family Medicine 11/12/22 Phototypesetter Operator Relationship Specialty Start Date End Date Destinee Britton MD [address] [facility] [place] [address] PCP - General Family Medicine 11/12/22 Phototypesetter Operator Relationship Specialty Start Date End Date Destinee Britton MD [address] [facility] [place] [address] PCP - General Family Medicine 11/12/22 Team Status: Inactive Member Role Status Dates Becky Romeo DO Primary Care Provider Active Start: January 11, 2025 End: January 11, 2025 Feliz Musa MD Attending Provider Active Star t: January 11, 2025 End: January 11, 2025 Phototypesetter Operator Relationship Specialty Start Date End Date Destinee Britton MD [address] [facility] [place] [address] PCP - General Family Medicine 11/12/22 Phototypesetter Operator Relationship Specialty Start Date End Date Destinee Britton MD [address] [facility] [place] [address] PCP - General Family Medicine 11/12/22 Phototypesetter Operator Relationship Specialty Start Date End Date Destinee Britton MD [address] [facility] [place] [address] PCP - General Family Medicine 11/12/22 Phototypesetter Operator Relationship Specialty Start Date End Date Destinee Britton MD [address] [facility] [place] [address] PCP - General Family Medicine 11/12/22 Phototypesetter Operator Relationship Specialty Start Date End Date Destinee Britton MD [address] [facility] [place] [address] PCP - General Family Medicine 11/12/22 Phototypesetter Operator Relationship Specialty Start Date End Date Destinee Britton MD [address] [place] [address] PCP - General Family Medicine 11/12/22 Phototypesetter Operator Relationship Specialty Start Date End Date Destinee Britton MD [address] [place] [address] PCP - General Family Medicine 11/12/22 Phototypesetter Operator Relationship Specialty Start Date End Date Destinee Britton MD [address] [place] [address] PCP - General Family Medicine 11/12/22 Phototypesetter Operator Relationship Specialty Start Date End Date Destinee Britton MD [address] [place] [address] PCP - General Family Medicine 11/12/22 Phototypesetter Operator Relationship Specialty Start Date End Date Destinee Britton MD [address] [place] [address] PCP - General Family Medicine 11/12/22 Phototypesetter Operator Relationship Specialty Start Date End Date Destinee Britton MD [address] [place] [address] PCP - General Family Medicine 11/12/22 Phototypesetter Operator Relationship Specialty Start Date End Date Destinee Britton MD [address] [place] [address] PCP - General Family Medicine 11/12/22 Phototypesetter Operator Relationship Specialty Start Date End Date Destinee Britton MD [address] [place] [address] PCP - General Family Medicine 11/12/22 Phototypesetter Operator Relationship Specialty Start Date End Date Destiene Britton MD [address] [facility] [place] [address] PCP - General Family Medicine 11/12/22 Goals [...] BE BASED ON THE PRIMARY CLINICAL RECORDS. [facility]. provides no warranty or guarantee of the accuracy or completeness of information in this document.
--- NOTE | 2025-03-23 09:53 | PM.CN ---
Consult Note: HPI Data of Consult Patient: known to practice within the last 3 years Requesting Physician: Jazmin Yanez NP Primary Care Provider: Vidal Romeo, DO Consult Narrative Reason for consult: f/u Narrative: Edwige tellez pleasant 24 year old female presents for evaluation of chronic low back pain secondary to bulging disc, lumbar ddd, and lumbar spondylosis. continues to utilize heat, ice, baclofen. cannot take tylenol due to elevated liver enzymes. pain today 6/10 increasing to 8/10 in low back. increased pain standing, walking, sitting, with activity, and sleep. finds benefit to PRN chiropractor care. recently underwent bilateral L4-5 L5-S1 mbb #1 with >80% improvement in pain while anesthetized, preop pain up to 8/10 post op pain 1/10. pt noted improvement with walking and ADLs during that time. cc:: CC: Jazmin Yanez NP Review of Systems ROS Musculoskeletal Reports: back pain and joint pain PFSH PFS Medical History (Updated 03/15/25 @ 11:19 by Ras Singh MD) Low back pain ?M54.50 - Low back pain, unspecified (ICD-10) Depression ?F32.A - Depression, unspecified (ICD-10) PCOS (polycystic ovarian syndrome) ?E28.2 - Polycystic ovarian syndrome (ICD-10) Surgical History History of ankle surgery ?Z98.890 - Other specified postprocedural states (ICD-10) Social History Little interest or pleasure in doing things: not at all Feeling down, depressed, or hopeless: not at all Meds Home Medications and Allergies Home Medications ?Medication ?Instructions ?Recorded ?Confirmed ?Type bupropion HCl 300 mg 24 hr tablet, 300 mg PO DAILY 08/16/24 03/21/25 History extended release etodolac 400 mg tablet (Lodine) 400 mg PO BID 08/16/24 03/21/25 History norgestimate 0.18 mg/0.215mg/0.25 1 tab PO DAILY 08/16/24 03/21/25 History mg-ethinyl estradiol 0.025 mg tablet (Aeh-Ra-Nuxsyj) ondansetron 4 mg disintegrating 4 mg PO Q6H PRN nausea and 11/28/24 03/21/25 Rx tablet vomiting #20 tabs baclofen 10 mg tablet 10 mg PO Q8H PRN spasms 12/27/24 03/21/25 History hydrocodone 7.5 mg-ibuprofen 200 1 tab PO Q6H PRN pain 5 days #20 03/15/25 03/21/25 Rx mg tablet tabs methocarbamol 500 mg tablet See Rx Instructions .Route 03/16/25 03/21/25 Rx .COMPLEX PRN muscle spasm #120 tabs Allergies Allergy/AdvReac Type Severity Reaction Status Date / Time No Known Drug Allergies Allergy Verified 03/21/25 10:21 Exam Constitutional Documenting provider has reviewed patient's vital signs: yes Common normals: no apparent distress, oriented x3, healthy appearing, alert and well nourished General appearance: cooperative HENMT Common normals: normocephalic, hearing grossly normal bilaterally and moist oral mucous membranes Head and scalp: normocephalic Eye Common normals: PERRL Pupil: PERRL Neck & C-Spine Common normals: full ROM General: normal visual inspection Chest Common normals: inspection of chest normal Respiratory Common normals: normal respiratory effort, no retractions and no use of accessory muscles Back & Pelvis Lumbar spine/lower back: ROM limited, pain with ROM and lumbar spinal tenderness Other: strength 5/5 in BLE positive L4-S1 facet loading and tenderness Neuro Common normals: oriented x3 Sensorium/orientation: alert Psych Common normals: mental status grossly normal, thought process normal, cooperative, affect normal, speech normal and activity/motor behavior normal Speech: normal speech Thought process: normal thought process Results Additional Findings Additional findings: If on a controlled substance or opioids, I have checked an [place] report on this patient and there are no aberrancies noted in the prescribing history.??If on a controlled substance or opioid a drug screen was completed and reviewed within the last year, and if there has not been a drug screen completed we ordered one today to monitor higher risk, state monitored pain medication use. As part of providing excellent, safe, comprehensive care, the following was completed at our patient's visit: 1. A medication reconciliation and review to ensure accurate knowledge of current/active medications, including asking our patients to inform us about any [id number] medications or herbal remedies/nutritional supplements/alternative remedies. 2. A review to specifically ensure our patients have had annual screening for screening for depression, screening for tobacco use, and screening for unhealthy alcohol use. For concerning screenings had a discussion with the patient, provided patient education, and recommended follow-up with primary care provider when appropriate. If patient noted with a risk of falling, they received education on strength, gait, and balance training to prevent future risk of falling. Portions of this note may have been carried over from the previous visit and updated as appropriate. Please note this office utilizes paper charting in addition to the electronic medical record. A list of current medications, vitals, and PMH is available there as the clinical staff outside of myself do not have access to [employer] charting during the clinic day operations. As part of providing quality comprehensive care the current medications, vitals, and PMH were reviewed in the paper chart. Assessment and Plan Assessment and Plan (1) Lumbar spondylosis: Assessment and Plan: The patient has had over 3 months of moderate to severe low back pain with functional impairment and inadequate response to conservative care including NSAIDS (unless there are contraindication such as concurrent blood thinners), multiple oral or topical pain medications, and home exercise program/physical therapy.? Patient has completed >6 weeks of guided home exercise program and/or formal physical therapy program without relief of their symptoms.? The Oswestry Disability Index was completed, and the patient scored a 71%.?? ?The procedure will be completed with fluoroscopic guidance.? (2) Myalgia, other site: (3) Lumbar stenosis with neurogenic claudication: Plan bilateral L4-5 L5-S1 mbb x2 in consideration of RFA for facet mediated low back pain continue PT and dry needling/massage, finding mild benefit continue methocarbamol 500-1000mg BID prn pain/spasms continue f/u with NS as planned, no upcoming appointments at this time. plan to refer back if pt fails MBB f/u after each injection
== END 2025-03-23 09:41 | disposition home or self-care (01) ==
LOC: PM 09:41
PROVIDERS: PCP Student in an Organized Health Care Education/Training Program; Visit Provider Nurse Practitioner
DX: M47.816 Spondylosis without myelopathy or radiculopathy, lumbar region (principal); M48.062 Spinal stenosis, lumbar region with neurogenic claudication; M79.18 Myalgia, other site
CPT/HCPCS: G0463

== ENCOUNTER 2025-04-18 09:02 | Day surgery (SDC) | payer BC, SELFPAY ==
--- OUTSIDE RECORDS SUMMARY | 2024-08-24 07:15 | XMS_ITS ---
Author Organization [facility] Address [address] [place] [address] Care Team Providers Care Design Technology Teacher Name Role Phone rodrigoMaxxKelinNancy Cruz Unavailable Edgar Patricio Unavailable [phone] Allergies No Known Allergies REASON FOR VISIT Lumbar Disc Herniation- Dr Cruz Medications Medication SIG (Take, Route, Frequency, Duration) Notes Start Date End Date Status CETIRIZINE HCL 10 MG TAKE 1 TABLET BY [facility] EVERY DAY for 30 Days Not-Taking [...] Location Date Provider Diagnosis [facility] [address] [place] [address] 08/24/2024 Edgar Patricio Plan Of Treatment No Information Progress Notes * ELADIA SIERRADOB:1999 (24 yo F)Acc No.[id number]:08/24/2024 Patient: ELADIA ZULETA Provider: Brisa Patricio MD :2000 A ge:24 Y S ex:Female Date:08/24/2024 Address:[address] [place], [place] [phone] Subjective: * Chief Complaints: * 1 . [...] Electronic signature of Edgar Patricio MD on 04/18/2025 at 09:06 AM EDT Sign off status: Pending * Provider: Brisa Patricio MD Date: 0 08/24/2024 Generated for Nii amezquita/Judy/Monica on: 1 09:06 AM EDT
--- OUTSIDE RECORDS SUMMARY | 2025-04-04 17:30 | XMS_ITS | Encounter Summary ---
Author Organization [facility] Address [address] [place] [address] Care Team Providers Care Convention Manager Name Role Phone Destinee Britton MD Primary Care Provider [phone] Reason for Visit * Rehabilitation - Outpatient (Routine) - Authorized Specialty Diagnoses / Procedures Referred By Contac t Referred To Contact Physical Therapy Diagnoses Sacrococcygeal disorders, not elsewhere classified Procedures IL THER PX 1/> AREAS EACH 15 MIN NEUROMUSC REEDUCA IL MANUAL THERAPY TQS 1/> REGIONS EACH 15 MINUTES IL THERAPEUTIC PX 1/> AREAS EACH 15 MIN EXERCISES PHYS/OCC THERAPY SS Feliz Musa MD [address] [place] [address], [address] [place] [address] Phone: tel: fax: Delia Kwan PT Referral ID Status Reason Start Date Expiration Date V isits Requested Visits Authorized [id number] Authorized 03/09/2025 05/07/2025 6 6 Encounter Details Date Type Department Care Team (Latest Contact Info) Description 04/04/2025 5:30 PM EDT Treatment [facility] [address] [facility] [address] [place] [address] Delia Kwan PT Sacrococcygeal disorders, not elsewhere [...] Never 05/20/2024 Social Connection and Isolation Panel Answer Date Recorded In a typical week, how many times do you talk on the phone with family, friends, or neighbors? Twice a week 05/20/2024 How often do you get together with friends or re latives? Once a week 05/20/2024 How often do you attend judaism or yazidism serv ices? Never 05/20/2024 Do [...] any time in the past 12 m [facility], were you homeless or living in a intermediate (including now)? No 05/20/2024 Comments No Sex and Gender Information Value Date Recorded Sex Assigned at Female 06/25/2023 1:54 PM EST Legal Sex Female 6:57 PM EDT Gender Identity Female 06/25/2023 1:54 PM EST Sexual Orientation Not on file documented as of this encounter Progress Notes * Delia Kwan, PT - 04/04/2025 5:30 PM EDT Images from the original note were not included. Physical Therapy Treatment Visit Patient Name: Edwige Patterson Today's Date: 04/04/2025 Encounter Diagnoses Name Primary? Sacrococcygeal disorders, not elsewhere classified Yes Visit number: 11 (5 of 6 visits authorized) Timed Code Treatment: 28 minutes Total Treatment Time: 43 minutes Time In: 1730 PM Time Out: 1818 PM History: Pt states she has been [...] sided low back pain Subjective: Pt states pain remains about the same. Hoping to get through trial injections soon so can have RFA. Pain: 5/10 bilateral lower back/sacral region, Objective: PT Evaluation (01/24/2025) LUMBAR SPINE AROM: [...] Test: negative clonus bilateral Treatment Manual Therapy: () Delivered manual ther to pt in prone, PA mobs, sacral distractions, MFR/TPR to Lpiriformis and proximal glute max, to reduce muscular tone Therapeutic Exercise: (28 minutes supervised) Guided pt through therex and hip/core ex per grid to improve lumbar stability, strength and functional mobility. Therapeutic Activity: Exercises to improve dynamic activities, functional tasks, functional mobility to return to prior activity level as needed. Neuromuscular re-education: Balance Training, Muscle Facilitation, Dynamic Stability, Core Stabilization, and Blood Flow Restriction Training (BFRT) as needed. Modalities: (15 minutes ) MHP w/ ESU to lower lumbar in prone post session to reduce inflammation and muscle soreness Assessment: Visit #11 with complaints of chronic low back pain with radicular pain into R LE/hip. Progressed exercises this date to increase bilateral hip and core strength. Held supine SLR due to pain. Core strength is fair. Will continue to progress as pt tolerates. Pt is making fair slow progress towards LTGs and will continue to benefit from therapy to reduce pain and progress pelvic and lumbar stability needed to reduce pain. Outcome Measure: Back Index: , (03/02/25) Rehab Diagnosis: low back pain, bilateral hip pain and weakness, limited ROM and mobility Short Term Goal: To be met in 2 weeks Goal 1: Pt to be instructed in home exercise program. Jail Goals: To be met in 10 weeks Goal 1: Pt to report independence and compliance with home program. Met/ progressing Goal 2: Pt to report pain no [...] Care Team (Late st Contact Info) Description 04/21/2025 6:00 PM EDT Treatment [facility] [address] [facility] [address] [place] [address] Ofelia Blakely, DESIGN RELEASE ENGINEER 08/15/2025 5:30 PM EST Office Visit [facility] [address] [place] [address] Jvoita Salas CNM [address] [place] [address] documented as of this encounter Visit Diagnoses Diagnosis Sacrococcygeal disorders, not elsewhere classified- Primary documented in this encounter Care Teams Convention Manager Relationship Specialty Start Date End Date Destinee Britton MD [address] [place] [address] PCP - General Family Medicine 11/12/22 documented as of this encounter
--- OUTSIDE RECORDS SUMMARY | 2025-04-18 09:05 | XMS_ITS | Encounter Summary ---
Author Organization [facility] Address [address] [place] [address] Care Team Providers Care Communications Maintainer Name Role Phone Destinee Britton MD Primary Care Provider [phone] Encounter Details Date Type Department Care Team (Late st Contact Info) Description 12/17/2024 Results Follow-Up [facility] Family Medicine [address] [place] [address] Ness Montez NP [address] [place], [place] [id number] US LIVER Social History Tobacco Use Types [...] week 05/20/2024 How often do you attend latter day or anglican serv ices? Never 05/20/2024 Do you belong to any clubs o r organizations such as latter day groups, unions, fraternal or athletic groups, or [...] Patient Health Questionnaire-2 Score 0 05/20/2024 [facility] of Occupat ional [facility] - Occupational Stress Questionnaire Answer [...] Info) Description 04/21/2025 6:00 PM EDT Treatment [facility] [address] [facility] [address] [place] [address] Ofelia Blakely, PATIENT PLACEMENT COORDINATOR 08/15/2025 5:30 PM EST Office Visit [facility] RAPP [address] [place] [address] Jovita Salas CNM [address] [place] [address] documented as of this encounter Visit Diagnoses Not on filedocumented in this encounter Care Teams Communications Maintainer Relationship Specialty Start Date End Date Destinee Britton MD [address] [place], [place] [phone] PCP - General Family Medicine 11/12/22 documented as of this encounter
--- OUTSIDE RECORDS SUMMARY | 2025-04-18 09:05 | XMS_ITS | Patient Health Record ---
Author Organization [facility] Address [address] [place] [address] Care Team Providers Care Hadoop Admin Name Role Phone Nancy Delcid Unavailable [phone] Edgar Patricio Unavailable [phone] Allergies No Known Allergies Reason For Referral Reason PRIOR AUTH APPROVED ANTHEM...MRI lumbar scheduled 08/03/24 DONE Diagnosis 1 Lumbar radiculopathy (M54.16) Referral Organization [facility] Referring Provider First Name Nancy Referring Provider Last Name Radha padron Referring Provider Speciality Orthopedic Surgery Referred Organization [facility] Referred Address [address] [place] [phone], Procedure 1 MRI Lumbar Spine w/o Dye (60362) General Notes Kathy Deal 07/27/19 11:05:31 AM >, Demetria Hannon 07/27/2024 11:28:31 AM > PER PEPITO SYED AUTH HAS BEEN APPROVED FROM 07/27/2024-08/25/2024 AUTH # [id number], AUTH IN CHART. Referral Priority Stat Reason Referral Dr. Sheng capellan and treat L4-S1 YELENA Diagnosis 1 Lumbar disc herniati on (M51.26) Referral Organization [facility] Referring Provider First Name Nancy Referring Provider Last Name Radha g Referring Provider Speciality Orthopedic Surgery Referred Organization [facility] Office Referred Provider Edgar Patricio Referred Address [address] [place] [phone], General Notes Mirian Dealha 08/03/19 12:17:52 PM >, Eladia Taylor 08/04/2024 08:27:50 AM >CAlled and lmovm to schedule with Dr Patricio-september, Eladia Taylor 08/04/2024 08:36:04 AM >scheduled 3.3.25 Referral Priority Routine Reason [phone] fax [facility]; Pt requesting pain management at that location. Diagnosis 1 Lumbar radiculopathy (M54.16) Referral Organization [facility] Referring Provider First Name Zenag Referring Provider Last Name xxUdo-Zena g Referring Provider Speciality Orthopedic Surgery Referred Organization [facility] Referred Address [place], [place], General Notes Malia Lobato 12/2024 02:22:47 PM >, Malia Lobato 08/13/2024 09:43:43 AM >FYI: She is scheduled for an appt with Dr. Patricio, father called and requested a referral to [facility], but keeping appt with Sheng if they [...] Problem Status W/U Status Risk Notes Problem 895916901 Lumbar radiculopathy (M54.16) Active confirmed Problem 538388196 Lumbar disc herniation (M51.26) Active confirmed Problem [id number] Discogenic low back pain (M51.360) Active confirmed Vital Signs Height 5ft 7in in 08/03/2024 Weight 240 lbs 08/03/2024 BMI 37.59 08/03/2024 Encounters Encounter Location Date Provider Diagnosis [facility] [address] [place] [address] 08/03/2024 [facility] Lumbar radiculopathy M54.16 [facility] [address] [place] [address] 07/27/2024 [facility] Lumbar radiculopathy M54.16 ; Discogenic low back pain M51.360 and Right hip pain M25.551 [facility] [address] [place] [address] 08/03/2024 [facility] [place] [facility] Lumbar disc herniation M51.26 and Lumbar radiculopathy M54.16 [facility] [address] [place] [address] 08/05/2024 Edgar Patricio [place] [address] [place] [address] 08/12/2024 [facility] [place] [facility] Lumbar radiculopathy M54.16 ; Right hip [...] Lumbar spine 2v ap and lat - 90380 07/27 Hip, right 2v WITH PELVIS - 90091 2024 Future Test Test Name Order Date MRI : Lumbosacral Spine W/O Contrast - 7 214707/27/2024 Insurance Providers Payer Name Payer Address Payer Phone Subscriber Number Group Number Insured Name Patient Relationship to Insured Coverage Start Date Coverage End Date [address] [place] [address] [id number] ELADIA PAN Self - patient is [...]
--- OUTSIDE RECORDS SUMMARY | 2025-04-18 09:05 | XMS_ITS | Clinical Summary ---
Author Organization [facility] Address [address], [address] [place] [address] Care Team Providers Care Core Carrier Name Role Phone Ottoniel Romeo Primary Care Provider [phone] Allergies No known active allergies Medications buPROPion [...] to complete this topic Insurance Care Teams Core Carrier Relationship Specialty Start Date End Date Ottoniel Romeo DO [address] [place] [address];[address] [place] [address] PCP - General Family Medicine 07/20/24
--- OUTSIDE RECORDS SUMMARY | 2025-04-18 09:05 | XMS_ITS | Encounter Summary ---
Author Organization [facility] Address [address] [place] [address] Care Team Providers Care Fiber Optics Supervisor Name Role Phone Destinee Britton MD Primary Care Provider [phone] Encounter Details Date Type Department Care Team (Late st Contact Info) Description 09/10/2024 Telephone [facility] [address] [place] [address] Jovita Salas, [facility] [address] [place], [place] [address] Social History Tobacco Use Types Packs/Day Years [...] How often do you attend pentecostalism or buddhism serv ices? Never 05/20/2024 Do [...] Recorded Patient Health Questionnaire-2 Score 0 05/20/2024 [facility] - Occupational Stress Questionnaire Answer Date [...] time in the past 12 m [facility], were you homeless or living in a [...] Info) Description 04/21/2025 6:00 PM EDT Treatment [facility] [address] [place] [place] [address] Ofelia Blakely PTA 08/15/2025 5:30 PM EST Office Visit [facility] [address] [place] [address] Jovita Salas, WILLOW [address] [place] [address] documented as of this encounter Visit Diagnoses Not on filedocumented in this encounter Care Teams Fiber Optics Supervisor Relationship Specialty Start Date End Date Destinee Britton MD [address] [place] [address] PCP - General Family Medicine 11/12/22 documented as of this encounter
--- OUTSIDE RECORDS SUMMARY | 2025-04-18 09:05 | XMS_ITS | Clinical Summary ---
Author Organization [facility] Address [address] [place] [address] Care Team Providers Care Cook Apprentice Name Role Phone Destinee Britton MD Primary Care Provider [phone] Allergies No known active allergies Medications hydrOXYzine [...] mg before bedtime. 5 Active Norgestimate-Eth Estradiol (Tnf-Sf-Ooekpq) 0.18/0.215/0.25 MG-25 MCG tabletIndications: Unwanted fertility TAKE [...] Encounters Date Type Department Care Team Description 04/05/2025 Travel 04/04/2025 5:30 PM EDT Treatment [facility] [address] [place] [place] [address] Delia Kwan, MARYCARMEN Sacrococcygeal disorders, not elsewhere classified (Primary Dx) 03/29/2025 5:30 PM EDT Treatment [facility] [address] [place] [address] Rayn Barger, CLEARANCE REPRESENTATIVE Sacrococcygeal disorders, not elsewhere classified (Primary Dx) 03/29/2025 Bamboo flowsheet [facility] [address] [place] [address] Ryan Barger, CLEARANCE REPRESENTATIVE 03/29/2025 Travel 03/24/2025 6:00 PM EDT Treatment [facility] [address] [place] [address] Ofelia Blakely, CLEARANCE REPRESENTATIVE Sacrococcygeal disorders, not elsewhere classified (Primary Dx) 03/24/2025 Bamboo flowsheet [facility] [address] [place] [address] Ofelia Blakely, CLEARANCE REPRESENTATIVE 03/24/2025 Travel 03/21/2025 1:00 PM EDT Treatment [facility] [address] [place] [address] Ryan Barger, CLEARANCE REPRESENTATIVE Sacrococcygeal disorders, not elsewhere classified (Primary Dx) 03/21/2025 Bamboo flowsheet [facility] [address] [place] [address] Ryan Barger, CLEARANCE REPRESENTATIVE 03/21/2025 Travel 03/15/2025 5:30 PM EDT Treatment [facility] [address] [place] [address] Ryan Barger, CLEARANCE REPRESENTATIVE Sacrococcygeal disorders, not elsewhere classified (Primary Dx) 03/15/2025 Bamboo flowsheet [facility] [address] [place] [address] Ryan Barger, CLEARANCE REPRESENTATIVE 03/15/2025 Travel 03/02/2025 5:30 PM EDT Treatment [facility] [address] [place] [address] Ryan Barger, CLEARANCE REPRESENTATIVE Sacrococcygeal disorders, not elsewhere classified (Primary Dx) 03/02/2025 Bamboo flowsheet [facility] [address] [facility] [address] [place] [address] Ryan Barger, NATI 03/02/2025 Travel 02/28/2025 6:00 PM EDT Treatment [facility] [address] [facility] [address] [place] [address] Delia Kwan, PT Sacrococcygeal disorders, not elsewhere classified (Primary Dx) 02/28/2025 Bamboo flowsheet [facility] [address] [facility] [address] [place] [address] Delia Kwan, PT 02/28/2025 Travel 02/18/2025 [facility] [place] [address] Destinee Britton MD 02/15/2025 6:00 PM EDT Treatment [facility] [address] [facility] [address] [place] [address] Kem Costa, CLEARANCE REPRESENTATIVE Sacrococcygeal disorders, not elsewhere classified (Primary Dx) 02/15/2025 Travel 02/15/2025 [facility]phone [facility] [place] [address] Destinee Britton MD 02/14/2025 5:30 PM EDT Office Visit [facility] Jamia RAPP [facility] [place] [address] Jovita Salas CNM PCOS (polycystic ovarian syndrome) (Primary Dx); Encounter for initial prescription of contraceptive pills; Insulin resistance 02/14/2025 Bamboo flowsheet [facility] Jamia RAPP [address] [place] [address] Jovita Salas CNM 02/14/2025 Travel 02/01/2025 6:00 PM EDT Treatment [facility] [address] [facility] [address] [place] [address] Kem Costa, CLEARANCE REPRESENTATIVE Sacrococcygeal disorders, not elsewhere classified (Primary Dx) 02/01/2025 Bamboo flowsheet [facility] [address] [place] [address] Kem Costa, CLEARANCE REPRESENTATIVE 02/01/2025 Travel 01/27/2025 6:00 PM EDT Treatment [facility] [address] [place] [address] Ofelia Blakely, CLEARANCE REPRESENTATIVE Sacrococcygeal disorders, not elsewhere classified (Primary Dx) 01/27/2025 Bamboo flowsheet [facility] [address] [place] [address] Ofelia Blakely, CLEARANCE REPRESENTATIVE 01/27/2025 Travel 01/25/2025 Plan of Care Documentation [facility] [address] [place] [address] 01/24/2025 6:00 PM EDT Evaluation [facility] [address] [place] [address] Delia Kwan, PT Sacrococcygeal disorders, not elsewhere classified (Primary Dx) 01/24/2025 Bamboo flowsheet [facility] [address] [facility] [address] [place] [address] Delia Kwan, PT 01/24/2025 Travel 01/22/2025 Refill [facility] [address] [place] [address] Jovita Salas, CNM Unwanted fertility 01/21/2025 Travel from Last 3 Months Immunizations Immunization [...] History Relation Name Comments Diabetes [facility] Heart failure Other g-ma Cancer Paternal Grandmother [facility] Diabetes Sister 2 J[facility]ana [facility] Mental illness Sister 2 Jovana [facility] Relation Name Status Comments Father Alive Mother Klesy Patterson Alive Other Paternal Grandmother [facility] Sister 1 Alive Sister 2 Jovana [facility] [...] How often do you attend baptism or zoroastrianism serv ices? Never 05/20/2024 Do [...] 05/20/2024 [facility] of Occupat ional [facility] - Occupational Stress Questionnaire Answer Date Recorded [...] [facility] [address] [place] [address] Ofelia Blakely PTA 08/15/2025 5:30 PM EST Office Visit [facility] [address] [place] [address] Jovita Salas CNM [address] [place] [address] Health Maintenance Due Date Last Done Comments Influenza Vaccine (#1) 2025 04/29/2024, 2019, 07/17/2018 Insurance BC[employer] Care Teams Cook Apprentice Relationship Specialty Start Date End Date Destinee Britton MD [address] [place] [address] PCP - General Family Medicine 11/12/22
--- OUTSIDE RECORDS SUMMARY | 2025-04-18 09:06 | XMS_ITS | Clinical Summary ---
Author Organization [employer] [facility] Address [id number] [address] [place] [address] Care Team Providers Care Panel Machine Tender Name Role Phone Ousmane Ottoniel Sunil BOWEN Primary Care Provider [phone] Allergies No known active allergies Medications * [...] (two) times a day as needed. Active HYDROcodone-ibup rofen (VICOPROFEN) 7.5-200 mg per tablet 03/15/2025 Active metFORMIN XR (GLUCOPHAGE XR) 500 mg 24 hr tablet Take 1 tablet (500 mg total) by mouth. 02/14/2025 Active desvenlafaxine (PRISTIQ) 50 mg 24 hr tabletIndication s:Moderate episode of recurrent major depressive disorder (CMS-HCC) Take 1 tablet (50 mg total) by mouth in the morning. 30 tablet 1 03/16/2025 Active Active Problems Problem Noted Date Diagnosed Date PCOS (polycystic ovarian syndrome) 05/28/2024 Adjustment disorder with anxiety 12/26/2023 Recurrent major depressive disorder, in full rem ission 04/25/2020 Phase of life problem 04/25/2020 Encounters * This document contains information received from the source organization and may not represent a complete record from that organization. Date Type Department Care Team Description 04/13/2025 Travel 03/23/2025 Travel 03/16/2025 Travel 02/23/2025 Travel 01/20/2025 Travel from [...] got money to buy more. Never True 03/23/2025 Within the past 12 months th e food we bought just didn't last and we didn't have money to get more. Never True 03/23/2025 Purpose - Life Answer Date Recorded Purpose [...] Not on file Insurance ANTHEM Care Teams Panel Machine Tender Relationship Specialty Start Date End Date Ottoniel Romeo DO PCP - General Family Medicine 04/03/20
--- OUTSIDE RECORDS SUMMARY | 2025-04-18 09:06 | XMS_ITS | Encounter Summary ---
Author Organization [facility] Address [address] [place] [address] Care Team Providers Care Snake Charmer Name Role Phone Destinee Britton MD Primary Care Provider [phone] Encounter Details Date Type Department Care Team (Late st Contact Info) Description 02/18/2025 Abstract [facility] [address] [place] [address] Destinee Britton MD [address] [place], [place] [address] Social History Tobacco Use Types Packs/Day Years [...] How often do you attend confucianist or synagogue serv ices? Never 05/20/2024 Do [...] Recorded Patient Health Questionnaire-2 Score 0 05/20/2024 [facility] of Occupat ional Health - [...] any time in the past 12 m [facility], were you homeless or living in [...] [facility] [address] [facility] [address] [place] [address] Ofelia Blakely PTA 08/15/2025 5:30 PM EST Office Visit [facility] RAPP [address] [place] [address] Jovita Salas CNM [address] [place] [address] documented as of this encounter Visit Diagnoses Not on filedocumented in this encounter Care Teams Snake Charmer Relationship Specialty Start Date End Date Destinee Britton MD [address] [place], [place] [phone] PCP - General Family Medicine 11/12/22 documented as of this encounter
--- OUTSIDE RECORDS SUMMARY | 2025-04-18 09:06 | XMS_ITS | Encounter Summary ---
Author Organization [facility] Address [address] [place] [address] Care Team Providers Care Delivery Lead Name Role Phone Destinee Britton MD Primary Care Provider [phone] Encounter Details Date Type Department Care Team (Latest Contact Info) Description 04/05/2025 Travel Social History Tobacco Use Types Packs/Day [...] How often do you attend anglican or sabianist serv ices? Never 05/20/2024 Do you belong [...] Recorded Patient Health Questionnaire-2 Score 0 05/20/2024 [facility] of Occupat ional Health - Occupational Stress [...] Description 04/21/2025 6:00 PM EDT Treatment [facility] [address] [place] [address] Ofelia Blakely PTA 08/15/2025 5:30 PM EST Office Visit [facility] RAPP [address] [place] [address] Jovita Salas CN [address] [place] [address] documented as of this encounter Visit Diagnoses Not on filedocumented in this encounter Care Teams Delivery Lead Relationship Specialty Start Date End Date Destinee Britton MD [address] [place], [place] [address] PCP - General Family Medicine 11/12/22 documented as of this encounter
--- OUTSIDE RECORDS SUMMARY | 2025-04-18 09:06 | XMS_ITS | Encounter Summary ---
Author Organization [employer] s tem Address [id number] [address] [place] [address] Care Team Providers Care [employer] Name Role Phone Ottoniel Romeo DO Primary Care Provider [phone] Encounter Details Date Type Department Care Team (Latest Contact Info) Description 04/13/2025 Travel Social History Tobacco Use Types Packs/Day [...] on filedocumented in this encounter Care Teams [employer] Relationship Specialty Start Date End Date Ottoniel Romeo DO PCP - General Family Medicine 04/03/20 documented as of this encounter
--- OUTSIDE RECORDS SUMMARY | 2025-04-18 09:09 | XMS_ITS | CCD ---
Author Organization [facility] Care Team Providers [employer] 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 Name Role Phone Radha Aguilera Attending Provider [...] Provider Unava ilable LOU Kraft Attending Provider [phone] Becky Romeo Admitting Unavailable Becky Romeo Attending Unavailable NO FAMILY, PHYSICIAN Primary Care Unavailable eBcky Romeo Admitting Unavailable Becky Romeo Attending Unavailable NO FAMILY, PHYSICIAN Primary Care Unavailable Lexy Kraft Admitting Unavailable Lexy Kraft Attending Unavailable NO FAMILY, PHYSICIAN Primary Care Unavailable Tobi LANDIS, Destinee Sweeney Primary Care Provider Braniecki DO, Becky A Primary Care Provider ROMEI, BECKY A Primary Care Unavailable YOLI LAL Attending Unavailable BRANIECKI, BECKY A Primary Care Unavailable BRANIECKI, BECKY A Primary Care Unavailable PRIYANK GASPAR Attending Unavailable Braniecki DO, Becky Primary Care Provider Lacey Morton LPN Attending Provider Unavailable Giovana BOWEN, Mack Zimmerman Attending Provider [phone] Lencho LANDIS, Feliz Queen Attending Provider Magdi LANDIS, Ty Wallace Attending Unavailable Giedraitis , Ty Wallace Attending Unavailable Giedraitis , Andcirilo Wallace Attending Unavailable Braniecki DO, Becky Saldana Referring Un available Edwina, Adam Aguilar Attending Unavailabl e Giedraitis , Andcirilo Wallace Attending Unavailable Giedraitis , Andrius Wallace Attending Unavailable Giedraitis , Olerius Wallace Attending Unavailable ROSANA, CHAD Giordano Attending Unavailable BRANIECKI, [...] Sig (Original) baclofen 10 mg oral tablet (18 sources) gamma-Aminobutyric Acid-ergic Agonist Start: 01-11-2025 take [...] tablet by mouth once daily [employer]-Eth Estradiol (Tuu-Vl-Oyokef) 0.18/0.215/0.25 MG-25 MCG tablet Indications: Unwanted fertility [...] 03/11/2024 Active etodolac 400 mg oral tablet (17 sources) Nonsteroidal Anti-inflammatory Drug Start: 01-31-2025 take [...] Drug Class(es) Dates Sig (Normalized) Sig (Original) [id number] 200 actuat albuterol 0.09 mg/actuat metered dose [...] 11, 2023 2:33pm take 1 capsule by [facility] every eight hours Dicyclomine HCl [...] Interpretation and review of laboratory results Normal [facility] Preg Test, Ur Negative Negative [facility] Urinalysis macro (dipstick) panel (U)on 12-03-2024 Bilirubin, UA 3+ Negative - 4(70) +++ mg/dL [facility] Blood, UA Negative Negative - 50 Aiadn/mcL [facility] Clarity, UA Clear [facility] Color, UA Yellow [facility] Glucose, UA Negative Negative - 2000(110) ++++ mg/dL [facility] Interpretation and review of laboratory results Abnormal [facility] Ketones, UA Positive Negative - 160(16) ++++ mg/dL [facility] Leukocytes, UA 1+ Negative - 500+++ Samira/mcL [facility] Nitrite, UA Negative Negative - Positive [facility] pH, UA 6 5 - 9 [facility] Protein, UA 1+ Negative - 2000(20) ++++ mg/dL [facility] Spec Grav, UA 1.02 1 - 1.03 [facility] Urobilinogen, UA 0.2 0.2 - 12 mg/dL [facility] CT LUMBAR SPINE WO CONTRASTo n [...] Octavio Lowe MD 07/20/24 Final result Normal [facility] CT Lumbar spine WO contrasto n [...] facets throughout with no significant spinal stenosis. [facility] RIS CONSOLIDATED EXAMINATION: CT OF THE LUMBAR [...] TISSUES/RETROPERITONE UM: No paraspinal mass is seen. [facility] RIS Octavio Rosen MD - 07/20/2024 EXAMINATION: [...] facets throughout with no significant spinal stenosis. [facility] Radiology Study observation (narrative) [facility] CT Lumbar spine WO contrastO rdered By: Octavio Lowe on 07-20-2024 [facility] Work Phone: HCG, ,Urineon 07-20 Beta HCG ( test) Ql (U) Negative Normal NEG [facility] Comment on above: Result Comment: Spec imens with hCG levels near the threshold of the test (25 mIU/mL) may give a negative or indeterminate result. In such cases, another test should be performed with a new specimen in 48-72 hours. If early is suspected clinically in this setting, correlation with quantitative serum b-hCG level is suggested. [employer] has confirmed the use of plasma for this test. This has not been cleared or approved by the U.S. Food and Drug Administration. The FDA has determined that such clearance is not necessary. Performed By: #### U HCG #### [facility] [address] [place], [place] [phone] [employer] Special Agent: Roge Rios MD Microscopic Urinalysison Amorphous sediment LM Ql (Urine sed) 1+ Abnormal None [facility] Epithelial cells LM.HPF (Urine sed) [#/Area] 2 TO 5 [facility] Interpretation and review of laboratory results Abnormal [facility] RBC LM.HPF (Urine sed) [#/Area] 0 TO 2 [facility] Renal Epithelial, UA 2 TO 5 0 /HPF [facility] WBC LM.HPF (Urine sed) [#/Area] 5 TO 10 [facility] , Urineon HCG ( test) Ql (U) Negative NEGATIVE [facility] Comment on above: Specimens with hCG l evels near the threshold of the test (25 mIU/mL) may give a negative or indeterminate result. In such cases, another test should be performed with a new specimen in 48-72 hours. If early is suspected clinically in this setting, correlation with quantitative serum b-hCG level is suggested. [employer] has confirmed the use of plasma for this test. This has not been cleared or approved by the U.S. Food and Drug Administration. The FDA has determined that such clearance is not necessary. [facility] Urinalysison 07-20-2024 Bilirubin Ql (U) Negative NEGATIVE [facility] Clarity (U) SLIGHTLY CLOUDY Abnormal Clear [facility] [employer] Color (U) Yellow Yellow [facility] Glucose Test strip (U) [Mass/Vol] Negative NEGATIVE mg/dL [facility] Hemoglobin Auto test strip Ql (U) Negative NEGATIVE [facility] Interpretation and review of laboratory results Abnormal [facility] Ketones (U) [Mass/Vol] Negative NEGAT AUGUSTINE mg/dL [facility] Leukocyte esterase Test strip Ql (U) SMALL Abnormal NEGATIVE [facility] Nitrite Ql (U) Negative NEGATIVE [facility] pH (U) 8.0 [pH] 5.0 - 9.0 [facility] Protein (U) [Mass/Vol] Negative NEGAT AUGUSTINE mg/dL [facility] Specific gravity (U) [Rel density] 1.020 1.010 - 1.020 [facility] Urobilinogen Qn (U) Normal 0.0 - 1. 0 EU/dL [facility] Urinalysis, Routineon 2024 Bilirubin, SemiQt,Ur Negative Normal NEG [facility] Comment on above: Performed By: #### U A, UMICAO #### [facility] [address] [place] [address] [place] [place], [place] [phone] [employer] Special Agent: Roge Rios MD Blood, Urine Negative Normal NEG [facility] Comment on above: Performed By: #### U A, UMICAO #### [address] [place], [place] [phone] [employer] Special Agent: Roge Rios MD Clarity (U) SLIGHTLY CLOUDY Abnormal CLEAR [facility] Comment on above: Performed By: #### U A, UMICAO #### [facility] [address] [place] [address] [address] [place], [place] [phone] [employer] Special Agent: Roge Rios MD Color (U) Yellow Normal YEL [facility] Comment on above: Performed By: #### U A, UMICAO #### [facility] [address] [place] [address] [place] [place], [place] [phone] [employer] Special Agent: Roge Rios MD Glucose Ql (U) Negative Normal NEG [facility] in Hospital Comment on above: Performed By: #### U A, UMICAO #### [facility] [address] [place] [address] [place] [place], [place] [phone] [employer] Special Agent: Roge Rios MD Ketones Ql (U) Negative Normal NEG [facility] Comment on above: Performed By: #### U A, UMICAO #### [facility] [address] [place] [address] [place] [place], [place] [phone] [employer] Special Agent: Roge Rios MD Leukocyte esterase Test strip Ql (U) SMALL Abnormal NEG [facility] Comment on above: Performed By: #### U A, UMICAO #### [facility] [address] [place] [address] [place] [address] [employer] Special Agent: Roge Rios MD Nitrite,Ur Negative Normal NEG [facility] Comment on above: Performed By: #### U A, UMICAO #### [facility] [address] [place] [address] [place] [address] [employer] Special Agent: Roge Rios MD PH,Ur 8.0 Normal 5.0-9.0 [facility] Comment on above: Performed By: #### U A, UMICAO #### [address] [place], [place] [address] [employer] Special Agent: Roge Rios MD Protein Ql (U) Negative Normal NEG [facility] Comment on above: Performed By: #### U A, UMICAO #### [address] [place], [place] [address] [employer] Special Agent: Roge Rios MD Spec. [place],Ur 1.020 Normal 1.010-1.020 [facility] Comment on above: Performed By: #### U A, UMICAO #### [address] [place], [place] [address] [employer] Special Agent: Roge Rios MD Urobilinogen,Ur Normal Normal 0.0-1.0 [facility] Comment on above: Performed By: #### U A, UMICAO #### [address] [place], [place] [address] [employer] Special Agent: Roge Rios MD Urinalysis,Microon 5 Amorphous sediment LM Ql (Urine sed) 1+ Abnormal NONE [facility] Comment on above: Performed By: #### U A, UMICAO #### [address] [place], [place] [phone] [employer] Special Agent: Roge Rios MD Epithelial cells LM Ql (Urine sed) 2 TO 5 Normal 0-25 [facility] Comment on above: Performed By: #### U A, UMICAO #### [facility] [address] [place] [address] [employer] Special Agent: Roge Rios MD Epithelial, Renal 2 TO 5 Normal 0 [facility] Comment on above: Performed By: #### U A, UMICAO #### [facility] [address] [place], [place] [phone] [employer] Special Agent: Roge Rios MD Urine RBC's 0 TO 2 Normal 0-2 [facility] Comment on above: Performed By: #### U A, UMICAO #### [facility] [address] [place] [address] [employer] Special Agent: Roge Rios MD Urine WBC's 5 TO 10 Normal 0-5 [facility] Comment on above: Performed By: #### U A, UMICAO #### [facility] [address] [place] [address] [employer] Special Agent: Roge Rios MD COVID + FLU Quick Testingon 07-09-2023 SARS-CoV-2 (COVID-19) RNA THA+probe Ql (Unsp spec) Negative [facility] [employer] Other COVID + FLU Quick Testing Negative [facility] [employer] Other XR wrist LT min 3V*on 2022 XR wrist LT min 3V* [facility] [employer] Other XR wrist LT min 3V* [facility] [employer] Other XR wrist LT min 3V* [address] [place] [address] [employer] Other XR wrist LT min 3V* [place] [address] [facility] [employer] Other XR wrist LT min 3V* XRay Report [facility] [employer] Other XR wrist LT min 3V* Signed RV ID Other XR wrist LT min 3V* Patient: Edwige Sierra MR#: [id number] RV ID Other XR wrist LT min 3V* [id number] RV ID Other XR wrist LT min 3V* : 2000 Acct:[id number] RV ID Other XR wrist LT min 3V* Age/Sex: 22 / F ADM Date: 12/09/22 RV ID Other XR wrist LT min 3V* Loc: XDUCLY Room: Type: [facility] RV ID Other XR wrist LT min 3V* Attending Dr: Lexy BLAKE RV ID Other XR wrist LT min 3V* Copies to: LOU Hernandez RV ID Other XR wrist LT min 3V* Ordering Provider: LOU Hernandez RV ID Other XR wrist LT min 3V* Date of Service: 12/09/22 RV ID Other XR wrist LT min 3V* XR/XR wrist LT min 3V*: Left wrist pain RV ID Other XR wrist LT min 3V* ([id number]) XR/XR hand LT min 3V*: Left wrist pain RV ID Other XR wrist LT min 3V* 3 views LEFT hand plain film RV ID Other XR wrist LT min 3V* COMPARISON: None RV ID Other XR wrist LT min 3V* HISTORY: LEFT hand injury. Pain involving the distal middle finger. Dorsal wrist pain RV ID Other XR wrist LT min 3V* ACUTE FINDINGS: None RV ID Other XR wrist LT min 3V* DEGENERATIVE CHANGE: Unremarkable RV ID Other XR wrist LT min 3V* SOFT TISSUE FINDINGS : Unremarkable RV ID Other XR wrist LT min 3V* JOINT EFFUSION: None RV ID Other XR wrist LT min 3V* POSTOP CHANGES: None RV ID Other XR wrist LT min 3V* BONY MINERALIZATION: Adequate RV ID Other XR wrist LT min 3V* XR/XR hand LT min 3V* RV ID Other XR wrist LT min 3V* IMPRESSION: No acute findings RV ID Other XR wrist LT min 3V* 4 views LEFT wrist plain film RV ID Other XR wrist LT min 3V* BONE MINERALIZATION: Adequate RV ID Other XR wrist LT min 3V* IMPRESSION: No acute bony findings. RV ID Other XR wrist LT min 3V* Impression dictated by: Misbah Mast M.D.12/09/2022 11:59 AM RV ID Other XR wrist LT min 3V* Dictation Location: [place] [address] RV ID Other XR wrist LT min 3V* Transcribed By: DOMINIQUE 12/09/22 1159 RV ID Other XR wrist LT min 3V* Dictated By: Misbah Mast DO 12/09/22 1158 RV ID Other XR wrist LT min 3V* Signed By: RV ID Other XR wrist LT min 3V* 12/09/22 1159 No rth [employer] Other XR wrist LT min 3V* [facility] [place] [address] [place], [place] [id number] XRay Report Signed Patient: Edwige Sierra MR#: [id number] : 2000 Acct:[id number] Age/Sex: 22 / F ADM Date: 12/09/22 Loc: XDUCLY Room: Type: [facility] Attending Dr: Lexy BLAKE Copies to: LOU Hernandez Ordering Provider: LOU Hernandez Date of Service: 12/09/22 XR/XR wrist LT min 3V*: Left wrist pain ([id number]) XR/XR hand LT min 3V*: Left wrist [...] Misbah Mast M.D.12/09/2022 11:59 AM Dictation Location: [place] [address] Transcribed By: [facility] 12/09/22 1159 Dictated By: Misbah Mast DO 12/09/22 1158 Signed By: 12/09/22 1159 Normal [facility] A1C with Estimated Average G jaredn 08-14-2022 HbA1c (Bld) [Mass fraction] 5.200 % Normal 4.3-5.6 % RV ID Other HbA1c (Bld) [Mass fraction] 103 mg/dL RV ID Other Glucose [Mass/Vol] 103 mg/dL Normal [facility] Comment on above: Result Comment: PERF ORMED BY: [place] [address] PATHOLOGIST [employer] KULWANT GOMEZ M.D. Performed By: #### C BC, TSH3, CMP, A1C WT eA, LIPID #### [facility] [address] HbA1c (Bld) [Mass fraction] 5.2 % Normal 4.3-5.6 [facility] Comment on above: Result Comment: Incr eased risk for diabetes: 5.7 - 6.4 diabetes: >6.4 glycemic control for adults with diabetes: <7.0 Performed By: #### C BC, TSH3, CMP, A1C WTH eA, LIPID #### [facility] [address] Albumin [Mass/volume] in Ser um or PlasmaOrdered By: Becky Romeo on 08-14-2022 Albumin [Mass/Vol] 3.9 g/dL 3.2-5.5 [facility] Basophils Auto (Bld) [#/Vol] Ordered By: Becky Romeo on 08-14-2022 Basophils (Bld) [#/Vol] 0.0 10*3/uL 0.0-0.2 [facility] Basophils/100 WBC Auto (Bld) Ordered By: Becky Romeo on 08-14-2022 Basophils/100 WBC (Bld) 0.6 % . [facility] Cholesterol [Mass/volume] in Serum or PlasmaOrdered By: Becky Romeo on 08-14-2022 Cholesterol [Mass/Vol] 195 mg/dL Normal 140-2 00 mg/dL [facility] Comment on above: Chol less than 200 m g/dl low riskChol 201-239 mg/dl borderline riskChol 240 mg/dl and greater high risk Cholesterol in LDL Calc [Mas s/Vol]Ordered By: Becky Romeo on 08-14-2022 Cholesterol in LDL [Mass/Vol] 146 mg/dL 0-100 [facility] Comment on above: LDL ATP III CLASSIFI CATIONLDL less than 100 mg/dL OptimalLDL 100-129 mg/dL Near or above optimalLDL 130-159 mg/dL Borderline highLDL 160-189 mg/dL HighLDL greater than 189 mg/dL Very high Cholesterol in VLDL Calc [Ma ss/Vol]Ordered By: Becky Romeo on 08-14-2022 Cholesterol in VLDL [Mass/Vol] 16 mg/dL [facility] Complete Blood Count Auto Di ffon 08-14-2022 Basophils (Bld) [#/Vol] 0.554573727 10*3/uL Normal 0.0-0.2 10*3/uL RV ID Other Basophils/100 WBC (Bld) 0.600 % . % [place] Other Eosinophils (Bld) [#/Vol] 0.941013224 10*3/uL Normal 0.0-0.45 10*3/uL RV ID Other Eosinophils/100 WBC (Bld) 2.300 % . % RV ID Other Erythrocyte distribution width (RBC) [Ratio] 12.400 % Normal 11.9-15.3 % RV ID Other Hematocrit (Bld) [Volume fraction] 39.700 % Normal 34.0-46.4 % RV ID Other Hemoglobin (Bld) [Mass/Vol] 13.567796 g/dL Normal 11.8-15.4 g/dL RV ID Other Lymphocytes (Bld) [#/Vol] 1.379969890 10*3/uL Normal 1.00-4.8 10*3/uL RV ID Other Lymphocytes/100 WBC (Bld) 22.500 % . % RV ID Other MCH (RBC) [Entitic mass] 30.2000 pg Normal 24.7-34.3 pg RV ID Other MCV (RBC) [Entitic vol] 90.5000 fL Normal 80-100 fL N [place] Other Monocytes (Bld) [#/Vol] 0.489195236 10*3/uL Normal 0.0-0.8 10*3/uL RV ID Other Monocytes/100 WBC (Bld) 6.800 % . % N [place] Other Neutrophils (Bld) [#/Vol] 3.438260071 10*3/uL Normal 1.8-7.7 10*3/uL RV ID Other Neutrophils/100 WBC (Bld) 67.800 % . % RV ID Other Platelet mean volume (Bld) [Entitic vol] 9.0000 fL Normal 6.3-10.7 fL RV ID Other WBC (Bld) [#/Vol] 5.010737634 10*3/uL Normal 3.8 -11.6 10*3/uL RV ID Other Complete Blood Count Auto Diff 5.6 10*3/uL Normal 3.8-11.6 10*3/uL RV ID Other Complete Blood Count Auto Diff 33.4 g/dL Normal 32.0-35.0 g/dL RV ID Other Complete Blood Count Auto Diff 0.3 /100{WBC} Normal 0-0.5 /100{WBC} RV ID Other Basophils (Bld) [#/Vol] 0.0 10*3/uL Normal 0.0-0.2 [facility] Comment on above: Result Comment: PERF ORMED BY: [facility] [address] [place] [address] PATHOLOGIST MOT[employer]PERIOR KULWANT GOMEZ M.D. Performed By: #### C BC, TSH3, CMP, A1C WTH eA, LIPID #### [facility] [address] Basophils/100 WBC (Bld) 0.6 % Normal . [facility] Comment on above: Performed By: #### C BC, TSH3, CMP, A1C WTH eA, LIPID #### [facility] [address] [place] [address] [place] Eosinophils (Bld) [#/Vol] 0.1 10*3/uL Normal 0.0-0.45 [facility] Comment on above: Performed By: #### C BC, TSH3, CMP, A1C WTH eA, LIPID #### [facility] [address] [place] [address] [place] Eosinophils/100 WBC (Bld) 2.3 % Normal . [facility] Comment on above: Performed By: #### C BC, TSH3, CMP, A1C WTH eA, LIPID #### [address] Erythrocyte distribution width (RBC) [Ratio] 12.4 % Normal 11.9-15.3 [facility] Comment on above: Performed By: #### C BC, TSH3, CMP, A1C WTH eA, LIPID #### [address] Hematocrit (Bld) [Volume fraction] 39.7 % Normal 34.0-46.4 [facility] Comment on above: Performed By: #### C BC, TSH3, CMP, A1C WTH eA, LIPID #### [place] [address] [place] Hemoglobin (Bld) [Mass/Vol] 13.2 g/dL Normal 11.8-15.4 [facility] Comment on above: Performed By: #### C BC, TSH3, CMP, A1C WTH eA, LIPID #### [place] [address] [place] Lymphocytes (Bld) [#/Vol] 1.3 10*3/uL Normal 1.00-4.8 [facility] Comment on above: Performed By: #### C BC, TSH3, CMP, A1C WTH eA, LIPID #### [place] [address] [place] Lymphocytes/100 WBC (Bld) 22.5 % Normal . [facility] Comment on above: Performed By: #### C BC, TSH3, CMP, A1C WTH eA, LIPID #### [address] MCH (RBC) [Entitic mass] 30.2 pg Normal 24.7-34.3 [facility] Comment on above: Performed By: #### C BC, TSH3, CMP, A1C WTH eA, LIPID #### [address] MCV (RBC) [Entitic vol] 90.5 fL Normal 80-100 [facility] Comment on above: Performed By: #### C BC, TSH3, CMP, A1C WTH eA, LIPID #### [address] Mean Corpuscular HGB Conc 33.4 g/dL Normal 32.0-35.0 [facility] Comment on above: Performed By: #### C BC, TSH3, CMP, A1C WTH eA, LIPID #### [place] [address] [place] Monocytes (Bld) [#/Vol] 0.4 10*3/uL Normal 0.0-0.8 [facility] Comment on above: Performed By: #### C BC, TSH3, CMP, A1C WTH eA, LIPID #### [place] [address] [place] Monocytes/100 WBC (Bld) 6.8 % Normal . [facility] Comment on above: Performed By: #### C BC, TSH3, CMP, A1C WTH eA, LIPID #### [place] [address] [place] Neutrophils (Bld) [#/Vol] 3.8 10*3/uL Normal 1.8-7.7 [facility] Comment on above: Performed By: #### C BC, TSH3, CMP, A1C WTH eA, LIPID #### [place] [address] [place] Neutrophils/100 WBC (Bld) 67.8 % Normal . [facility] Comment on above: Performed By: #### C BC, TSH3, CMP, A1C WTH eA, LIPID #### [facility] [address] NRBC% 0.3 /100{WBC} Normal 0-0.5 [facility] Comment on above: Performed By: #### C BC, TSH3, CMP, A1C WTH eA, LIPID #### [facility] [address] Platelet mean volume (Bld) [Entitic vol] 9.0 fL Normal 6.3-10.7 [facility] Comment on above: Performed By: #### C BC, TSH3, CMP, A1C WTH eA, LIPID #### [facility] [address] Platelets (Bld) [#/Vol] 232 10*3/uL Normal 150-450 [facility] Comment on above: Performed By: #### C BC, TSH3, CMP, A1C WTH eA, LIPID #### [address] RBC (Bld) [#/Vol] 4.38 10*6/uL Normal 3.60-5.00 [facility] Comment on above: Performed By: #### C BC, TSH3, CMP, A1C WTH eA, LIPID #### [address] WBC (Bld) [#/Vol] 5.6 10*3/uL Normal 3.8-11.6 [facility] Comment on above: Performed By: #### C BC, TSH3, CMP, A1C WTH eA, LIPID #### [address] Comprehensive Metabolic Pane amandeep 08-14-2022 Albumin [Mass/Vol] 3.885585 g/dL Normal 3.2-5.5 g/dL [facility] [employer] Other Bilirubin [Mass/Vol] 0.2930688 mg/dL Normal 0.3- 1.2 mg/dL RV ID Other Calcium [Mass/Vol] 9.5448260 mg/dL Normal 8.2-10 .2 mg/dL RV ID Other CO2 [Moles/Vol] 23.14826230 mmol/L Normal 22.0-3 0.0 mmol/L RV ID Other Creatinine [Mass/Vol] 0.42096930 mg/dL Normal 0. 44-1.03 mg/dL RV ID Other Potassium [Moles/Vol] 3.94001626 mmol/L Normal 3 .5-5.1 mmol/L RV ID Other Protein [Mass/Vol] 6.385366 g/dL Normal 6.1-7.9 g/dL [facility] [employer] Other Comprehensive Metabolic Panel > 60 RV ID Other Comprehensive Metabolic Panel 2.7 g/dL RV ID Other Albumin [Mass/Vol] 3.9 g/dL Normal 3.2-5.5 [facility] Comment on above: Performed By: #### C BC, TSH3, CMP, A1C WTH eA, LIPID #### [facility] [address] [place] [id number] [place] Albumin/Globulin [Mass ratio] 1.4 {ratio} Normal [facility] Comment on above: Performed By: #### C BC, TSH3, CMP, A1C WTH eA, LIPID #### [facility] [address] [place] [address] [place] ALP [Catalytic activity/Vol] 69 U/L Normal 32-92 [facility] Comment on above: Performed By: #### C BC, TSH3, CMP, A1C WTH eA, LIPID #### [facility] [address] [place] [address] [place] ALT [Catalytic activity/Vol] 34 U/L Normal 10-60 RV ID Other Comment on above: Performed By: #### C BC, TSH3, CMP, A1C WTH eA, LIPID #### [facility] [address] Anion gap [Moles/Vol] 9.7 mmol/L Normal 6.0-15.0 [facility] Comment on above: Performed By: #### C BC, TSH3, CMP, A1C WTH eA, LIPID #### [facility] [address] AST [Catalytic activity/Vol] 30 U/L Normal 10-42 [facility] Comment on above: Performed By: #### C BC, TSH3, CMP, A1C WTH eA, LIPID #### [facility] [address] Bilirubin [Mass/Vol] 0.7 mg/dL Normal 0.3-1.2 [facility] Comment on above: Performed By: #### C BC, TSH3, CMP, A1C WTH eA, LIPID #### [facility] [address] Calcium [Mass/Vol] 9.2 mg/dL Normal 8.2-10.2 [facility] Comment on above: Performed By: #### C BC, TSH3, CMP, A1C WTH eA, LIPID #### [facility] [address] Chloride [Moles/Vol] 108 mmol/L Normal 95-114 [facility] Comment on above: Performed By: #### C BC, TSH3, CMP, A1C WTH eA, LIPID #### [facility] [address] CO2 [Moles/Vol] 23.1 mmol/L Normal 22.0-30.0 [facility] Comment on above: Performed By: #### C BC, TSH3, CMP, A1C WTH eA, LIPID #### [address] Creatinine [Mass/Vol] 0.75 mg/dL Normal 0.44-1.03 [facility] Comment on above: Performed By: #### C BC, TSH3, CMP, A1C WTH eA, LIPID #### [facility] [address] [place] [address] [place] Estimated GFR ( Queenie > 60 [facility] Comment on above: Result Comment: GFR estimated reference range: According to KDOQI guidelines, <60 ml/min/1.73m2 is sufficient to diagnose a patient with chronic kidney disease. Performed By: #### C BC, TSH3, CMP, A1C WTH eA, LIPID #### [facility] [address] [place] [address] [place] Estimated GFR (Non- Am > 60 Normal [facility] Comment on above: Performed By: #### C BC, TSH3, CMP, A1C WTH eA, LIPID #### [facility] [address] Globulin (S) [Mass/Vol] 2.7 g/dL Normal [facility] Comment on above: Performed By: #### C BC, TSH3, CMP, A1C WTH eA, LIPID #### [facility] [address] Glucose [Mass/Vol] 87 mg/dL Normal 70-100 [facility] Comment on above: Result Comment: Jessie Glucose Reference Range is dependent on time and content of last meal. Glucose of more than 200 mg/dL in a nonstressed, ambulatory subject supports the diagnosis of Diabetes Mellitus. ADA recommended reference range Performed By: #### C BC, TSH3, CMP, A1C WTH eA, LIPID #### [facility] [address] [place] [address] [place] Potassium [Moles/Vol] 3.8 mmol/L Normal 3.5-5.1 [facility] Comment on above: Performed By: #### C BC, TSH3, CMP, A1C WTH eA, LIPID #### [facility] [address] [place] [address] [place] Protein [Mass/Vol] 6.6 g/dL Normal 6.1-7.9 [facility] Comment on above: Performed By: #### C BC, TSH3, CMP, A1C WTH eA, LIPID #### [facility] [address] [place] [address] [place] Sodium [Moles/Vol] 137 mmol/L Normal 136-146 [facility] Comment on above: Performed By: #### C BC, TSH3, CMP, A1C WT eA, LIPID #### [facility] [address] [place] [address] [place] Urea nitrogen [Mass/Vol] 5 mg/dL Low 9-23 [facility] Comment on above: Performed By: #### C BC, TSH3, CMP, A1C WT eA, LIPID #### [facility] [address] Creatinine and Glomerular fi ltration rate.predicted panel (S/P/Bld)Ordered By: Becky Romeo on 08-14-2022 Creatinine [Mass/Vol] 0.75 mg/dL 0.44-1.03 [facility] Eosinophils Auto (Bld) [#/Vo l]Ordered By: Becky Romeo on 08-14-2022 Eosinophils (Bld) [#/Vol] 0.1 10*3/uL 0.0-0.45 [facility] Eosinophils/100 WBC Auto (Bl d)Ordered By: Becky Romeo on 08-14-2022 Eosinophils/100 WBC (Bld) 2.3 % . [facility] Erythrocyte distribution wid th Auto (RBC) [Ratio]Ordered By: Becky Romeo on 08-14-2022 Erythrocyte distribution width (RBC) [Ratio] 12.4 % 11.9-15.3 [facility] Erythrocytes [#/volume] in B lood by Automated countOrdered By: Becky Romeo on 08-14-2022 RBC (Bld) [#/Vol] 4.38 10*6/uL Normal 3.60-5.00 [facility] Estimated glomerular filtrat ion rate (GFR) non- AmericanOrdered By: Becky Romeo on 08-14-2022 GFR/1.73 sq M.predicted among non-blacks MDRD (S/P/Bld) [Vol rate/Area] > 60 mL/Min [facility] Globulin Calc (S) [Mass/Vol] Ordered By: Becky Romeo on 08-14-2022 Globulin (S) [Mass/Vol] 2.7 g/dL [facility] Hematocrit Auto (Bld) [Volum e fraction]Ordered By: Becky Ousmane on 08-14-2022 Hematocrit (Bld) [Volume fraction] 39.7 % 34.0-46.4 [facility] Hemoglobin [Mass/volume] in BloodOrdered By: Becky Ousmane on 08-14-2022 Hemoglobin (Bld) [Mass/Vol] 13.2 g/dL 11.8-15.4 [facility] Leukocytes [#/volume] correc kalyani for nucleated erythrocytes in Blood by Automated counOrdered By: Becky Romeo on 08-14-2022 WBC corrected for nucl RBC Auto (Bld) [#/Vol] 5.6 10*3/uL 3.8-11.6 [facility] Lipid Panelon 08-14-2022 Cholesterol in LDL Elph Qn 146 mg/dL High 0-100 mg/dL [facility] [employer] Other Lipid Panel 84 mg/dL Normal 35-149 mg/dL [facility] [employer] Other Lipid Panel 16 mg/dL [facility] [employer] Other Cholesterol [Mass/Vol] 195 mg/dL Normal 140-200 [facility] Comment on above: Result Comment: Chol less than 200 mg/dl low risk Chol 201-239 mg/dl borderline risk Chol 240 mg/dl and greater high risk Performed By: #### C BC, TSH3, CMP, A1C WT eA, LIPID #### [facility] [address] [place] [id number] [place] Cholesterol in HDL [Mass/Vol] 32 mg/dL Low 35-85 [facility] Comment on above: Result Comment: HDL CHOL ATP-III CLASSIFICATION Cardiovascular Risk HDL > or equal to 60 mg/dL LOW HDL < 40 mg/dL HIGH Performed By: #### C BC, TSH3, CMP, A1C WT eA, LIPID #### [facility] [address] [place] [address] [place] Cholesterol.total/Vero sterol in HDL [Mass ratio] 6.1 {ratio} Normal <5.0 [facility] Comment on above: Performed By: #### C BC, TSH3, CMP, A1C WT eA, LIPID #### [facility] [address] LDL Cholesterol,Calculated 146 mg/dL High 0-100 [facility] Comment on above: Result Comment: LDL ATP III CLASSIFICATION LDL less than 100 mg/dL Optimal LDL 100-129 mg/dL Near or above optimal LDL 130-159 mg/dL Borderline high LDL 160-189 mg/dL High LDL greater than 189 mg/dL Very high Performed By: #### C BC, TSH3, CMP, A1C WTH eA, LIPID #### [facility] [address] Triglyceride w/Reflex 84 mg/dL Normal 35-149 [facility] Comment on above: Result Comment: TRIG ATP III CLASSIFICATION TRIG less than 150 mg/dL Normal TRIG 150-199 mg/dL Borderline high TRIG 200-500 mg/dL High TRIG greater than 500 mg/dL Very high Standard traceable to the Center for Disease Conrtrol and Prevention (CDC) test method. Performed By: #### C BC, TSH3, CMP, A1C WT eA, LIPID #### [facility] [address] VLDL CHOLESTEROL 16 mg/dL Normal [facility] Comment on above: Performed By: #### C BC, TSH3, CMP, A1C WTH eA, LIPID #### [facility] [address] Lymphocytes Auto (Bld) [#/Vo l]Ordered By: Becky Romeo on 08-14-2022 Lymphocytes (Bld) [#/Vol] 1.3 10*3/uL 1.00-4.8 [facility] Lymphocytes/100 WBC Auto (Bl d)Ordered By: Becky Romeo on 08-14-2022 Lymphocytes/100 WBC (Bld) 22.5 % . [facility] MCH Auto (RBC) [Entitic mass ]Ordered By: Becky Romeo on 08-14-2022 MCH (RBC) [Entitic mass] 30.2 pg 24.7-34.3 [facility] MCHC Auto (RBC) [Mass/Vol]Or dered By: Becky Romeo on 08-14-2022 MCHC (RBC) [Mass/Vol] 33.4 g/dL 32.0-35.0 [facility] MCV Auto (RBC) [Entitic vol] Ordered By: Becky Romeo on 08-14-2022 MCV (RBC) [Entitic vol] 90.5 fL 80-100 [facility] Monocytes Auto (Bld) [#/Vol] Ordered By: Becky Romeo on 08-14-2022 Monocytes (Bld) [#/Vol] 0.4 10*3/uL 0.0-0.8 [facility] Monocytes/100 WBC Auto (Bld) Ordered By: Becky Romeo on 08-14-2022 Monocytes/100 WBC (Bld) 6.8 % . [facility] Neutrophils Auto (Bld) [#/Vo l]Ordered By: Becky Romeo on 08-14-2022 Neutrophils (Bld) [#/Vol] 3.8 10*3/uL 1.8-7.7 [facility] Neutrophils/100 WBC Auto (Bl d)Ordered By: Becky Romeo on 08-14-2022 Neutrophils/100 WBC (Bld) 67.8 % . [facility] No Panel InformationOrdered By: Becky Romeo on 08-14-2022 Estimated GFR () > 60 mL/Min [facility] Comment on above: GFR estimated refere nce range: According to KDOQI guidelines, <60 ml/min/1.73m2 is sufficient to diagnose a patient with chronic kidney disease. Pharmacy Creatinine Clearance (Chem N/A [facility] Nucleated erythrocytes [Pres ence] in Blood by Automated countOrdered By: Becky Romeo on 08-14-2022 Nucleated RBC Auto Ql (Bld) 0.3 /100{WBC} 0-0.5 [facility] Platelet mean volume Auto (B ld) [Entitic vol]Ordered By: Becky Romeo on 08-14-2022 Platelet mean volume (Bld) [Entitic vol] 9.0 fL 6.3-10.7 [facility] Platelets [#/volume] in Bloo d by Automated countOrdered By: Becky Romeo on 08-14-2022 Platelets (Bld) [#/Vol] 232 10*3/uL Normal 150- 450 10*3/uL [facility] Protein [Mass/volume] in Ser um or PlasmaOrdered By: Becky Romeo on 08-14-2022 Protein [Mass/Vol] 6.6 g/dL 6.1-7.9 [facility] Serum or plasma alanine kinsey otransferase measurement without P-5'-P (enzymatic activiOrdered By: Becky Romeo on 08-14-2022 ALT No additional P-5'-P [Catalytic activity/Vol] 34 U/L 10-60 [facility] Serum or plasma albumin/glob ulin mass ratioOrdered By: Becky Romeo on 08-14-2022 Albumin/Globulin [Mass ratio] 1.4 {ratio} [facility] Serum or plasma alkaline jean claude sphatase measurement (enzymatic activity/volume)Ordered By: Becky Romeo on 08-14-2022 ALP [Catalytic activity/Vol] 69 U/L Normal 32-92 U/L [facility] Serum or plasma anion gap de terminationOrdered By: Becky Romeo on 08-14-2022 Anion gap [Moles/Vol] 9.7 mmol/L 6.0-15.0 [facility] Serum or plasma aspartate am inotransferase measurement (enzymatic activity/volume)Ordered By: Becky Romeo on 08-14-2022 AST [Catalytic activity/Vol] 30 U/L Normal 10-42 U/L [facility] Serum or plasma calcium daily urement (mass/volume)Ordered By: Becky Romeo on 08-14-2022 Calcium [Mass/Vol] 9.2 mg/dL 8.2-10.2 [facility] Serum or plasma chloride julisa surement (moles/volume)Ordered By: Becky Romeo on 08-14-2022 Chloride [Moles/Vol] 108 mmol/L Normal 95-114 mmol/L [facility] Serum or plasma glucose daily urement (mass/volume)Ordered By: Becky Romeo on 08-14-2022 Glucose [Mass/Vol] 87 mg/dL Normal 70-100 mg/dL [facility] Comment on above: ADA recommended refe rence rangeRandom Glucose Reference Range is dependent on time and content of last meal. Glucose of more than 200 mg/dL in a nonstressed, ambulatory subject supports the diagnosis of Diabetes Mellitus. Serum or plasma high density lipoprotein (HDL) cholesterol measurementOrdered By: Becky Romeo on 08-14-2022 Cholesterol in HDL [Mass/Vol] 32 mg/dL Low 35-85 mg/dL [facility] Comment on above: HDL CHOL ATP-III CLA SSIFICATION Cardiovascular RiskHDL > or equal to 60 mg/dL LOWHDL < 40 mg/dL HIGH Serum or plasma potassium me asurement (moles/volume)Ordered By: Becky Romeo on 08-14-2022 Potassium [Moles/Vol] 3.8 mmol/L 3.5-5.1 [facility] Serum or plasma sodium measu rement (moles/volume)Ordered By: Becky Romeo on 08-14-2022 Sodium [Moles/Vol] 137 mmol/L Normal 136-146 mmol/L [facility] Serum or plasma total biliru bin measurement (mass/volume)Ordered By: Becky Romeo on 08-14-2022 Bilirubin [Mass/Vol] 0.7 mg/dL 0.3-1.2 [facility] Serum or plasma total carbon dioxide measurement (moles/volume)Ordered By: Becky Romeo on 08-14-2022 CO2 [Moles/Vol] 23.1 mmol/L 22.0-30.0 [facility] Serum or plasma total choles terol/high density lipoprotein (HDL) cholesterol mass ratOrdered By: Becky Romeo on 08-14-2022 Cholesterol.total/Vero sterol in HDL [Mass ratio] 6.1 {ratio} <5.0 [facility] Serum or plasma urea nitroge n measurement (mass/volume)Ordered By: Becky Romeo on 08-14-2022 Urea nitrogen [Mass/Vol] 5 mg/dL Low 9-23 mg/dL [facility] TSH DL <= 0.005 mIU/L QnOrde red By: Becky Ousmane on 08-14-2022 TSH Qn 1.77 m[IU]/L 0.45-5.33 [facility] Thyroid Stimulating Hormoneo n 08-14-2022 TSH Qn 1.77 m[IU]/L Normal 0.45-5.33 [facility] Comment on above: Result Comment: PERF ORMED BY: [facility] [address] [place] [address] PATHOLOGIST MOTHER SUPERIOR KULWANT GOMEZ M.D. Performed By: #### C BC, TSH3, CMP, A1C WTH eA, LIPID #### [address] Triglyceride [Mass/volume] i n Serum or PlasmaOrdered By: Becky Romeo on 08-14-2022 Triglyceride [Mass/Vol] 84 mg/dL 35-149 [facility] Comment on above: TRIG ATP III CLASSIF ICATIONTRIG less than 150 mg/dL NormalTRIG 150-199 mg/dL Borderline highTRIG 200-500 mg/dL High TRIG greater than 500 mg/dL Very highStandard traceable to the Center for Disease Conrtrol and Prevention (CDC) test method. WBC Auto (Bld) [#/Vol]Ordere d By: Becky Romeo on 08-14-2022 WBC (Bld) [#/Vol] 5.6 10*3/uL 3.8-11.6 [facility] XR chest 2V*on 08-13-2022 XR chest 2V* [facility] [place] [address] [place] [address] XRay Report Signed Patient: Edwige Sierra MR#: [id number] : 2000 Acct:[id number] Age/Sex: 22 / F ADM Date: 08/13/22 Loc: [facility] Room: Type: [facility] Attending Dr: Becky Romeo DO Copies [...] Misbah Mast M.D.08/13/2022 3:23 PM Dictation Location: [facility]-- Transcribed By: [facility] 08/13/22 152 Dictated By: Misbah Mast DO 08/13/22 152 Signed By: 08/13/22 152 [facility] XR chest 2V* [facility] [employer] Other XR chest 2V* [facility] [employer] Other XR chest 2V* [address] [place] [address] [employer] Other XR chest 2V* [place] [address] [facility] [employer] Other XR chest 2V* XRay Report [facility] Other XR chest 2V* Signed [facility] Other XR chest 2V* Patient: Edwige Sierra MR#: [id number] [employer] Other XR chest 2V* [id number] [facility] ID Other XR chest 2V* : 2000 Acct:[id number] RV ID Other XR chest 2V* Age/Sex: 22 / F ADM Date: 08/13/22 RV ID Other XR chest 2V* Loc: [facility] Room: Type : [facility] RV ID Other XR chest 2V* Attending Dr: Diane Romeo DO RV ID Other XR chest 2V* Copies to: Becky Romeo, DO [facility] Other XR chest 2V* Ordering Provider: Becky Romeo, DO [facility] Other XR chest 2V* Date of Service: 08/13/22 [facility] Other XR chest 2V* XR/XR chest 2V*: Cough, unspecified type RV ID Other XR chest 2V* Plain film chest2 view [facility] Other XR chest 2V* HISTORY:Productive cough. Wheezing. [facility] Other XR chest 2V* COMPARISON:None [facility] [employer] Other XR chest 2V* FINDINGS: The cardiac, mediastinal and hilar silhouettes are within normal limits. No acute lung [facility] Other XR chest 2V* process, pleural effusion or pneumothorax identified. Bony structures are intact. [facility] Other XR chest 2V* XR/XR chest 2V* [facility] Other XR chest 2V* IMPRESSION: No acute process. [facility] Other XR chest 2V* Impression dictated by: Misbah Mast M.D.08/13/2022 3:23 PM [facility] Other XR chest 2V* Dictation Location: [place] [address] [facility] Other XR chest 2V* Transcribed By: DOMINIQUE 08/13/22 [facility] RV ID Other XR chest 2V* Dictated By: Misbah Mast DO 08/13/22 1522 RV [facility] Other XR chest 2V* Signed By: RV ID Other XR chest 2V* 08/13/22 1523 [employer] Other Quick Strepon 02-08-2022 S. pyogenes Org specific cx Ql (Throat) Positive [employer] Other Quick Strep [facility] Other COVID Quick Testingon 2021 Result Negative RV [facility] Other COVID + FLU Quick Testingon 07-03-2021 SARS-CoV-2 (COVID-19) RNA THA+probe Ql (Unsp spec) Positive [facility] Other COVID + FLU Quick Testing Negative [facility] Other Q - THINPREP(R) TIS AND HPV MRNA E6/E7 RFL HPV 16/18/45on 06-20-2021 CLINICAL INFORMATION: None given Normal Nor [facility] Specialist Comment on above: Order Comment: [facility] Testing performed at: [employer], [address] [place] [address], [phone], City Carrier Assistant: Ramana Taylor MD Testing performed at: [facility], [address] [place] [address], [phone], City Carrier Assistant: Mani Anderson [facility] Collection Date/Time: [id number] [facility] Results Received Date/Time: [id number] [facility] Reported Date/Time: FASTING: UNKNOWN Result Comment: [[facility] ] Performed By: #### 9 1414 #### [facility] Default [address] [place] [address] COMMENT SEE NOTE Normal [facility] [employer] Comment on above: Order Comment: [facility] performed at: [facility], [place], [address] [place] [address], [address] [place] [address], [phone], City Carrier Assistant: Ramana Taylor MD Testing performed at: [employer], [facility], [address] [place], [phone], City Carrier Assistant: Mani Anderson [facility] Collection Date/Time: [facility] Results [...] 9 1414 #### [facility] Default [address] [place] [address] COMMENT: This Pap test has been evaluated with computer assisted technology. Normal [facility] Specialist Comment on above: Order Comment: [facility] performed at: [facility], [place], [address] [place] [address], [address] [place] [address], City Carrier Assistant: Ramana Taylor MD Testing performed at: [facility], [address] [place], [phone], City Carrier Assistant: Mani Anderson [facility] Collection Date/Time: [facility] Results Received Date/Time: [facility] Reported Date/Time: FASTING: UNKNOWN Result Comment: [[facility] ] Performed By: #### 9 1414 #### [facility] Default [address] [place], [place] [id number] FINANCIAL DEVELOPER: SEE NOTE Normal See Note: [facility] Comment on above: Order Comment: [facility] performed at: [facility], [place], [address] [place] [address], [address] [place] [address], [address] [place] [address], City Carrier Assistant: Ramana Taylor MD Testing performed at: [employer], [facility], [address] [place], [phone], City Carrier Assistant: Mani Anderson [facility] Collection Date/Time: [facility] Results Received Date/Time: [facility] Reported Date/Time: FASTING: UNKNOWN Result Comment: Refe prema Range: ZL, CT(ASCP) CT screening location: [place] [address]. [QBU] Performed By: #### 9 1414 #### [facility] Default [address] [place] [address] GENERAL CATEGORIZATION: EPITHELIAL CELL ABNORMALITY Abnormal [facility] Comment on above: Order Comment: [facility] performed at: [facility], [place], [address] [place] [address], [address] [place] [address], [phone], City Carrier Assistant: Ramana Taylor MD Testing performed at: [facility], [address] [place] [address], [phone], City Carrier Assistant: Mani Anderson [facility] Collection Date/Time: [facility] Results Received Date/Time: [facility] Reported Date/Time: FASTING: UNKNOWN Result Comment: [[facility] ] Performed By: #### 9 1414 #### [facility] Default [address] [place] [address] HPV mRNA E6/E7 Detected Abnormal Not Detected [facility] Comment on above: Order Comment: [facility] performed at: [facility], [place], [address] [place] [address], [address] [place] [address], [phone], City Carrier Assistant: Ramana Taylor MD Testing performed at: [facility], [address] [place] [address], [phone], City Carrier Assistant: Mani Anderson [facility] Collection Date/Time: [facility] Results Received Date/Time: [facility] Reported Date/Time: FASTING: UNKNOWN Result Comment: Meth odology: Nut [employer]-Mediated Amplification This assay detects E6/E7 viral messenger RNA (mRNA) from 14 high-risk HPV types (16,18,31,33,35,39,45,51,52,56,58,59,66,68). The analytical performance characteristics of this assay have been determined by [facility]. The modifications have not been cleared or approved by the FDA. This assay has been validated pursuant to the CLIA regulations and is used for clinical purposes. For additional information, please refer to http://education.[employer]/faq/JAD513d6 (This link if provided for information/ educational purposes only.) [O6K] Performed By: #### 9 1414 #### [facility] Default [address] [place] [address] INTERPRETATION/RESULT: Atypical Squamous Cells of Undetermined Significance (ASC-US) Abnormal [facility] Specialist Comment on above: Order Comment: [facility] performed at: [employer], [address] [place] [address], City Carrier Assistant: Ramana Taylor MD Testing performed at: [facility], [address] [place] [address], [address] [place] [address], City Carrier Assistant: Mani Anderson [facility] Collection Date/Time: [facility] Results Received Date/Time: [facility] Reported Date/Time: FASTING: UNKNOWN Result Comment: [[facility] ] Performed By: #### 9 1414 #### [facility] Default [address] [place] [address] LMP: None given Normal [facility] Comment on above: Order Comment: [facility] performed at: [facility], [place], [address] [place] [address], [address] [place] [address], [address] [place] [address], City Carrier Assistant: Ramana Taylor MD Testing performed at: [facility], [address] [place] [address], [phone], City Carrier Assistant: Mani Anderson [facility] Collection Date/Time: [facility] Results Received Date/Time: [facility] Reported Date/Time: FASTING: UNKNOWN Result Comment: [[facility]BU ] Performed By: #### 9 1414 #### [facility] Default [address] [place] [address] PATHOLOGIST: SEE NOTE Normal [facility] [employer] Comment on above: Order Comment: [facility] Testing performed at: [employer], [facility], [place], [address] [place] [address], [address] [place] [address], [address] [place] [address], City Carrier Assistant: Ramana Taylor MD Testing performed at: [facility], [address] [place], [place], [address] [place] [address], City Carrier Assistant: Mani Anderson [facility] Collection Date/Time: [facility] Results Received Date/Time: [facility] Reported Date/Time: FASTING: UNKNOWN Result Comment: Vance Anderson MD, PhD, M.B.A. Board Certified in Anatomic and Clinical Pathology Board Certified in Cytopathology (electronic signature) For questions regarding this report call Anatomic Pathology at [phone] [QBU] Performed By: #### 9 [id number] #### [facility] [address] [place] [address] PREV. BX: None given Normal [facility] Comment on above: Order Comment: [facility] Testing performed at: [facility], [facility], [place], [address] [place] [address], [address] [place] [address], [address] [place] [address], City Carrier Assistant: Ramana Taylor MD Testing performed at: [facility], [address] [place] [address], [address] [place] [address], City Carrier Assistant: aMni Anderson [facility] Collection Date/Time: [facility] Results Received Date/Time: [facility] Reported Date/Time: FASTING: UNKNOWN Result Comment: [QBU ] Performed By: #### 9 1414 #### [facility] [address] [place] [address] PREV. PAP: None given Normal [facility] Comment on above: Order Comment: [facility] Testing performed at: [employer], [facility], [place], [address] [place] [address], [address] [place] [address], [id number], City Carrier Assistant: Ramana Taylor MD Testing performed at: [facility], [address] [place], [address] [place] [address], City Carrier Assistant: Mani Anderson [facility] Collection Date/Time: [facility] Results Received Date/Time: [facility] Reported Date/Time: FASTING: UNKNOWN Result Comment: [QBU ] Performed By: #### 9 1414 #### [facility] [address] [place] [address] SOURCE: None given Normal [facility] [place] [employer] [facility] Comment on above: Order Comment: [facility] Testing performed at: [facility] [employer], [address] [place] [address], [address] [place] [address], [address] [place] [address], City Carrier Assistant: Ramana Taylor MD Testing performed at: [facility], [address] [place] [address], [address] [place] [address], City Carrier Assistant: Mani Anderson [facility] Collection Date/Time: [facility] Results Received Date/Time: [facility] Reported Date/Time: FASTING: UNKNOWN Result Comment: [QBU ] Performed By: #### 9 1414 #### [facility] [address] [place] [address] STATEMENT OF ADEQUACY: SEE NOTE Normal [facility] [place] [facility] Comment on above: Order Comment: [facility] Testing performed at: [facility], [place], [address] [place] [address], [address] [place] [address], [address] [place] [address], City Carrier Assistant: Ramana Taylor MD Testing performed at: [facility], [address] [place] [address], [address] [place] [address], City Carrier Assistant: Mani Anderson [facility] Collection Date/Time: [id number] [facility] Results Received Date/Time: [facility] Reported Date/Time: FASTING: UNKNOWN Result Comment: Sati sfactory for evaluation. Endocervical/transformation zone component present. [QBU] Performed By: #### 9 1414 #### [facility] [address] [place] [address] XR Finger Lefton 06-20-2021 XR Finger Left FINDINGS: PIP soft tissue swelling. Minimally distracted volar plate fracture, middle phalangeal base. Minimal arthritis. IMPRESSION: Minimally distracted 4th PIP joint volar plate fracture Report reported and signed by Hubert Lewis on 06/20/[address] [facility] [employer] PREG HCG QUALon 05-19-2020 , QUAL Negative Normal NEGATIVE [facility] Comment on above: Performed By: #### P REG #### [facility] [address] [place], [place] [address] Liam Ayala COVID-19 PCRon 05-14-2020 SARS-CoV-2 (COVID-19) RNA THA+probe Ql (Unsp spec) Not detected Normal Not Detected [facility] Comment on above: Result Comment: This nucleic acid amplification test was developed and its performance characteristics determined by [employer]. Nucleic acid amplification tests include PCR and [...] Performed By: #### C VDSTAT, CVDPCR #### [facility] [address] [place], [place] [address] Liam Ayala PRIORITY COVID PROCESSINGon 05-14-2020 Comment Comment Normal [facility] Comment on above: Result Comment: Rece ived Performed By: #### C VDSTAT, CVDPCR #### [facility] [address] [place], [place] [address] Liam Ayala Vital Signs Date Time Vital Sign Value Performing Clinician Facility 02-14-2025 17:17-0400 Body height 167.6 cm Jovita Salas CNM Work Phone: [facility] 02-14-2025 17:17-0400 Body mass index (BMI) [Ratio] 38.9 kg/m2 Jovita Rosarioo CNM Work Phone: [facility] 02-14-2025 17:17-0400 Body weight 109.32 kg Jovita Rosarioo CNM Work Phone: [facility] 02-14-2025 17:17-0400 Diastolic blood pressure 78 mm[Hg] Jovita Rosarioo CNM Work Phone: [facility] 02-14-2025 17:17-0400 Heart rate 78 /min Jovita Rosarioo CNM Work Phone: [facility] 02-14-2025 17:17-0400 Respiratory rate 18 /min Jovita Rosarioo CNM Work Phone: [facility] 02-14-2025 17:17-0400 SaO2% (BldA) [Mass fraction] 98 % Jovita Rosarioo CNM Work Phone: [facility] 02-14-2025 17:17-0400 Systolic blood pressure 130 mm[Hg] Jovita Rosarioo CNM Work Phone: [facility] 01-11-2025 09:15-0400 Body height 170.18 cm Becky Pierrefariba DO Work Phone: [facility] 01-11-2025 09:15-0400 Body mass index (BMI) [Ratio] 37.6 kg/m2 Becky Pierrefariba DO Work Phone: [facility] 01-11-2025 09:15-0400 Body weight 109.1 kg Becky Pierrenickjulia DO Work Phone: [facility] 12-03-2024 14:00-0400 Heart rate 90 /min Ness Montez [employer] Work Phone: [facility] 12-03-2024 13:44-0400 Body height 167.6 cm Ness Montez [employer] Work Phone: [facility] 12-03-2024 13:44-0400 Body mass index (BMI) [Ratio] 39.38 kg/m2 Ness Montez [employer] Work Phone: [facility] 12-03-2024 13:44-0400 Body weight 110.68 kg Ness Montez [employer] Work Phone: [facility] 12-03-2024 13:44-0400 Diastolic blood pressure 82 mm[Hg] Ness Ohs [employer] Work Phone: [facility] 12-03-2024 13:44-0400 Respiratory rate 18 /min Ness Ohs [employer] Work Phone: [facility] 12-03-2024 13:44-0400 SaO2% (BldA) [Mass fraction] 97 % Ness Montez [employer] Work Phone: [facility] 12-03-2024 13:44-0400 Systolic blood pressure 134 mm[Hg] Ness Montez [employer] Work Phone: [facility] 11-24-2024 13:12-0400 SaO2% (BldA) [Mass fraction] 94 % Becky Ousmane DO Work Phone: [facility] 11-24-2024 13:00-0400 Body temperature 98.01 [degF] Becky Ousmane DO Work Phone: [facility] 11-24-2024 13:00-0400 Diastolic blood pressure 76 mm[Hg] Becky Ousmane DO Work Phone: [facility] 11-24-2024 13:00-0400 Heart rate 89 /min Becky Romeo DO Work Phone: [facility] 11-24-2024 13:00-0400 Respiratory rate 16 /min Becky Ousmane DO Work Phone: [facility] 11-24-2024 13:00-0400 Systolic blood pressure 117 mm[Hg] Becky Romeo DO Work Phone: [facility] 08-10-2024 16:06-0500 Body height 167.6 cm Jovita ROBERTS Work Phone: [facility] 08-10-2024 16:06-0500 Body mass index (BMI) [Ratio] 39.64 kg/m2 Jovita Salas CN Work Phone: [facility] 08-10-2024 16:06-0500 Body weight 111.4 kg Jovita Salas CN Work Phone: [facility] 08-10-2024 16:06-0500 Diastolic blood pressure 70 mm[Hg] Jovita Salas [facility] Work Phone: [facility] 08-10-2024 16:06-0500 Systolic blood pressure 118 mm[Hg] Jovita Salas [facility] Work Phone: [facility] 08-05-2024 10:19-0500 Body temperature 98.4 [degF] Priyank Gaspar MD Work Phone: [facility] 08-05-2024 10:19-0500 Diastolic blood pressure 56 mm[Hg] Priyank Gaspar MD Work Phone: [facility] 08-05-2024 10:19-0500 Heart rate 114 /min Priyank Gaspar MD Work Phone: [facility] 08-05-2024 10:19-0500 Respiratory rate 18 /min Priyank Gaspar MD Work Phone: [facility] 08-05-2024 10:19-0500 SaO2% (BldA) [Mass fraction] 97 % Priyank Gaspar MD Work Phone: [facility] 08-05-2024 10:19-0500 Systolic blood pressure 97 mm[Hg] Priyank Gaspar MD Work Phone: [employer] 07-20-2024 18:12-0500 SaO2% (BldA) [Mass fraction] 97 % Yoli Lal MD Work Phone: [facility] 07-20-2024 15:37-0500 Body height 170.2 cm Yoli Lal MD Work Phone: [facility] 07-20-2024 15:37-0500 Body mass index (BMI) [Ratio] 37.59 kg/m2 Yoli Lal MD Work Phone: [facility] 07-20-2024 15:37-0500 Body temperature 98.29 [degF] Yoli Lal MD Work Phone: [facility] 07-20-2024 15:37-0500 Body weight 108.86 kg Yoli Lal MD Work Phone: [facility] 07-20-2024 15:37-0500 Diastolic blood pressure 76 mm[Hg] Yoli Lal MD Work Phone: [employer] 07-20-2024 15:37-0500 Heart rate 100 /min Yoli Lal MD Work Phone: [employer] 07-20-2024 15:37-0500 Respiratory rate 18 /min Yoli Lal MD Work Phone: [facility] 07-20-2024 15:37-0500 Systolic blood pressure 110 mm[Hg] Yoli Lal MD Work Phone: [facility] 05-24-2024 08:46-0500 Body height 167.6 cm Destinee Britton MD Work Phone: [facility] 05-24-2024 08:46-0500 Body mass index (BMI) [Ratio] 39 kg/m2 Destinee Britton MD Work Phone: [facility] 05-24-2024 08:46-0500 Body weight 109.59 kg Destinee Britton MD Work Phone: [facility] 05-24-2024 08:46-0500 Diastolic blood pressure 74 mm[Hg] Destinee Britton MD Work Phone: [facility] 05-24-2024 08:46-0500 Heart rate 91 /min Destinee Britton MD Work Phone: [facility] 05-24-2024 08:46-0500 Respiratory rate 18 /min Destinee Britton MD Work Phone: [facility] 05-24-2024 08:46-0500 SaO2% (BldA) [Mass fraction] 97 % Destinee Britton MD Work Phone: [facility] 05-24-2024 08:46-0500 Systolic blood pressure 114 mm[Hg] Destinee Britton MD Work Phone: [facility] 05-20-2024 15:22-0500 Body height 167.6 cm Destinee Britton MD Work Phone: [facility] 05-20-2024 15:22-0500 Body mass index (BMI) [Ratio] 39.96 kg/m2 Destinee Britton MD Work Phone: [facility] 05-20-2024 15:22-0500 Body weight 112.31 kg Destinee Britton MD Work Phone: [facility] 05-20-2024 15:22-0500 Diastolic blood pressure 72 mm[Hg] Destinee Britton MD Work Phone: [facility] 05-20-2024 15:22-0500 Heart rate 116 /min Destinee Britton MD Work Phone: [facility] 05-20-2024 15:22-0500 Respiratory rate 18 /min Destinee Britton MD Work Phone: [facility] 05-20-2024 15:22-0500 SaO2% (BldA) [Mass fraction] 99 % Destinee Britton MD Work Phone: [facility] 05-20-2024 15:22-0500 Systolic blood pressure 134 mm[Hg] Destinee Britton MD Work Phone: [facility] 05-10-2024 13:59-0500 Body mass index (BMI) [Ratio] 39.87 kg/m2 Jovita Salas [facility] Work Phone: [facility] 05-10-2024 13:59-0500 Body weight 112.04 kg Jovita Salas [facility] Work Phone: [facility] 11-11-2023 14:36-0400 Diastolic blood pressure 76 mm[Hg] [facility] 11-11-2023 14:36-0400 Heart rate 92 /min [facility] 11-11-2023 14:36-0400 Respiratory rate 20 /min [facility] 11-11-2023 14:36-0400 Systolic blood pressure 104 mm[Hg] [facility] 10-10-2023 11:51-0400 Body height 170.18 cm [facility] 10-10-2023 11:51-0400 Body mass index (BMI) [Ratio] 38.2 kg/m2 [facility] 10-10-2023 11:51-0400 Body weight 110.67 kg [facility] 10-10-2023 11:51-0400 Diastolic blood pressure 81 mm[Hg] [facility] 10-10-2023 11:51-0400 Heart rate 78 /min [facility] 10-10-2023 11:51-0400 SaO2% (BldA) [Mass fraction] 96 % [facility] 10-10-2023 11:51-0400 Systolic blood pressure 128 mm[Hg] [facility] 07-09-2023 13:00-0500 Body height 170.18 cm Becky Romeo Other [employer] [employer] Other 07-09-2023 13:00-0500 Body mass index (BMI) [Ratio] 36.96 kg/m2 Becky Romeo Other [employer] [employer] Other 07-09-2023 13:00-0500 Body temperature 97.6 [degF] Becky Romeo Other [employer] Other 07-09-2023 13:00-0500 Body weight 107.05 kg Becky Romeo Other [employer] Other 07-09-2023 13:00-0500 Diastolic blood pressure 69 mm[Hg] Becky Romeo Other [employer] Other 07-09-2023 13:00-0500 Respiratory rate 20 /min Becky Romeo Other [employer] Other 07-09-2023 13:00-0500 SaO2% (BldA) [Mass fraction] 97 % Becky Romeo Other [employer] Other 07-09-2023 13:00-0500 Systolic blood pressure 109 mm[Hg] Becky Romeo Other [employer] Other 12-09-2022 11:05-0400 Body height 170.18 cm Lexy Menamond Other [employer] Other 12-09-2022 11:05-0400 Body mass index (BMI) [Ratio] 38.52 kg/m2 Lexy Menamond Other [employer] Other 12-09-2022 11:05-0400 Body temperature 97.8 [degF] Lexy Menamond Other [employer] Other 12-09-2022 11:05-0400 Body weight 111.59 kg Lexy Abena Other [employer] Other 12-09-2022 11:05-0400 Respiratory rate 18 /min Lexy Kraft Other [employer] Other 12-09-2022 11:05-0400 SaO2% (BldA) [Mass fraction] 98 % Lexy Kraft Other [employer] Other 08-12-2022 16:00-0500 Body height 170.18 cm Becky Romeo Other [employer] Other 08-12-2022 16:00-0500 Body mass index (BMI) [Ratio] 39.62 kg/m2 Becky Hernandezernestineyumiko Other [employer] Other 08-12-2022 16:00-0500 Body weight 114.76 kg Becky Romoe Other [employer] Other 08-12-2022 16:00-0500 Diastolic blood pressure 71 mm[Hg] Becky Hernandezernestineyumiko Other [employer] Other 08-12-2022 16:00-0500 Respiratory rate 16 /min Becky Hernandezernestineyumiko Other [employer] Other 08-12-2022 16:00-0500 SaO2% (BldA) [Mass fraction] 98 % Becky Hernandezernestineyumiko Other [employer] Other 08-12-2022 16:00-0500 Systolic blood pressure 107 mm[Hg] Becky Hernandezjulia Other [employer] Other 02-08-2022 12:00-0400 Body height 167.64 cm Joselin Wilkins Other [employer] Other 02-06-2022 18:45-0400 Body height 167.64 cm Lexy Kraft Other [employer] Other 02-06-2022 18:45-0400 Body mass index (BMI) [Ratio] 37.12 kg/m2 Lexy Kraft Other [employer] Other 02-06-2022 18:45-0400 Body temperature 97.3 [degF] Lexy Kraft Other [facility] [employer] Other 02-06-2022 18:45-0400 Body weight 104.33 kg Lexy Kraft Other [facility] [employer] Other 02-06-2022 18:45-0400 Respiratory rate 18 /min Lexy Kraft Other [employer] Other 02-06-2022 18:45-0400 SaO2% (BldA) [Mass fraction] 97 % Lexy Kraft Other [employer] Other Encounters Encounter Date Encounter Type Care Provider Facility Start: 04-13-2025 End: 04-13-[address] [facility] Start: 04-04-2025 End: 04-04-2025 Treatment Delia Kwan PT [facility] Comment on above: Sacrococcygeal disor ders, not elsewhere classified (Primary Dx) Start: 03-29-2025 End: 03-29-2025 Treatment Ryan Barger [employer] SCIENCES INSTRUCTOR [facility] Comment on above: Sacrococcygeal disor ders, not elsewhere classified (Primary Dx) Start: 03-29-2025 End: 03-29-2025 Bamboo flowsheet Ryan Barger SOCIAL SCIENCES INSTRUCTOR [facility] Start: 03-29-2025 End: 03-29-2025 Bamboo flowsheet Ryan Israelink SOCIAL SCIENCES INSTRUCTOR [facility] Start: 03-24-2025 End: 03-24-2025 Treatment Ofelia Kelbley SOCIAL SCIENCES INSTRUCTOR [facility] Comment on above: Sacrococcygeal disor ders, not elsewhere classified (Primary Dx) Start: 03-24-2025 End: 03-24-2025 Bamboo flowsheet Ofelia Carrascoy SOCIAL SCIENCES INSTRUCTOR [facility] Start: 03-24-2025 End: 03-24-2025 Bamboo flowsheet Ofelia Blakely SOCIAL SCIENCES INSTRUCTOR [facility] Start: 03-23-2025 End: 03-23-[address] [facility] Start: 03-21-2025 End: 03-21-2025 Bamboo flowsheet Ryan Barger SOCIAL SCIENCES INSTRUCTOR [facility] Start: 03-21-2025 End: 03-21-2025 Bamboo flowsheet Ryan Barger SOCIAL SCIENCES INSTRUCTOR [facility] Start: 03-21-2025 End: 03-21-2025 Treatment Ryan Barger SOCIAL SCIENCES INSTRUCTOR [facility] Comment on above: Sacrococcygeal disor ders, not elsewhere classified (Primary Dx) Start: 03-21-2025 End: 03-21-2025 ambulatory Ty Fairbanks MD Facility:[facility] Start: 03-16-2025 End: 03-16-2025 ambulatory NUBIA STEPHENS [facility] Start: 03-15-2025 End: 03-15-2025 Treatment Ryan Barger SOCIAL SCIENCES INSTRUCTOR [facility] Comment on above: Sacrococcygeal disor ders, not elsewhere classified (Primary Dx) Start: 03-15-2025 End: 03-15-2025 Bamboo flowsheet Ryan Israelink SOCIAL SCIENCES INSTRUCTOR [facility] Start: 03-15-2025 End: 03-15-2025 Bamboo flowsheet Ryan Israelink SOCIAL SCIENCES INSTRUCTOR [facility] Start: 03-02-2025 End: 03-02-2025 Treatment Ryandestini Barger SOCIAL SCIENCES INSTRUCTOR [facility] Comment on above: Sacrococcygeal disor ders, not elsewhere classified (Primary Dx) Start: 03-02-2025 End: 03-02-2025 Bamboo flowsheet Ryan Barger SOCIAL SCIENCES INSTRUCTOR [facility] Start: 03-02-2025 End: 03-02-2025 Bamboo flowsheet Ryandestini Barger SOCIAL SCIENCES INSTRUCTOR [facility] Start: 02-28-2025 End: 02-28-2025 Treatment Delia Kwan PT [facility] Comment on above: Sacrococcygeal disor ders, not elsewhere classified (Primary Dx) Start: 02-28-2025 End: 02-28-2025 Bamboo flowsheet Delia Kwan PT [facility] Start: 02-28-2025 End: 02-28-2025 Bamboo flowsheet Delia Kwan PT [facility] Start: 02-23-2025 End: 02-23-[address] [facility] Start: 02-21-2025 End: 02-21-2025 ambulatory Ty Fairbanks MD Facility:[facility] Start: 02-15-2025 End: 02-15-2025 ambulatory Kem Costa SOCIAL SCIENCES INSTRUCTOR [facility] Start: 02-15-2025 End: 02-15-2025 Telephone encounter Destinee Britton MD Work Phone: [facility] Comment on above: Sacrococcygeal disor ders, not elsewhere classified (Primary Dx) Start: 02-14-2025 End: 02-14-2025 Office outpatient visit 15 minutes Jovita Salas CNM Work Phone: [facility] Comment on above: PCOS (polycystic ova melvin syndrome) (Primary Dx); Encounter for initial prescription of contraceptive pills; Insulin resistance Start: 02-14-2025 End: 02-14-2025 Bamboo flowsheet Jovita Salas CNM Work Phone: [facility] Start: 02-14-2025 End: 02-14-2025 Bamboo flowsheet Jovita Salas ALEJANDRAM Work Phone: [facility] Start: 02-01-2025 End: 02-01-2025 Treatment Kem Costa SOCIAL SCIENCES INSTRUCTOR [facility] Comment on above: Sacrococcygeal disor ders, not elsewhere classified (Primary Dx) Start: 02-01-2025 End: 02-01-2025 Bamboo flowsheet Kem Costa SOCIAL SCIENCES INSTRUCTOR [facility] Start: 02-01-2025 End: 02-01-2025 Bamboo flowsheet Kem Costa SOCIAL SCIENCES INSTRUCTOR [facility] Start: 01-27-2025 End: 01-27-2025 Treatment Ofelia Blakely SOCIAL SCIENCES INSTRUCTOR [facility] Comment on above: Sacrococcygeal disor ders, not elsewhere classified (Primary Dx) Start: 01-27-2025 End: 01-27-2025 Bamboo flowsheet Ofelia Blakely SOCIAL SCIENCES INSTRUCTOR [facility] Start: 01-27-2025 End: 01-27-2025 Bamboo flowsheet Ofelia Blakely SOCIAL SCIENCES INSTRUCTOR [facility] Start: 01-24-2025 End: 01-25-2025 Evaluation Delia Kwan PT [facility] Comment on above: Sacrococcygeal disor ders, not elsewhere classified (Primary Dx) Start: 01-24-2025 End: 01-24-2025 Bamboo flowsheet Delia Kwan PT [facility] Start: 01-24-2025 End: 01-24-2025 Bamboo flowsheet Delia Kwan PT [facility] Start: 01-20-2025 End: 01-20-[address] [facility] Start: 01-11-2025 End: 01-11-2025 ambulatory Becky Romeo DO Work Phone: [facility] Work Phone: Start: 01-11-2025 End: 01-11-2025 Patient encounter procedure Feliz [facility] Work Phone: Start: 01-06-2025 End: 01-06-2025 ambulatory Becky Romeo DO Work Phone: [facility] Work Phone: Start: 01-06-2025 End: 01-06-2025 Patient encounter procedure Mack Akhtar Erasmo DO [facility] Work Phone: Start: 01-05-2025 End: 01-05-2025 ambulatory Becky Romeo DO Facility:[facility] Start: 12-27-2024 End: 12-27-2024 ambulatory Ty Fairbanks MD Facility:[facility] Start: 12-16-2024 End: 12-16-2024 ambulatory [facility] Start: 12-03-2024 End: 12-03-2024 Telephone encounter Destinee Britton MD Work Phone: [facility] Start: 12-03-2024 End: 12-03-2024 Office outpatient visit 25 minutes Ness Montez NP Work Phone: [facility] Comment on above: Nausea (Primary Dx); Pain of upper abdomen Start: 12-01-2024 Non-patient / Non-visit Lacey Morton [facility] Work Phone: Start: 11-24-2024 End: 11-24-2024 [facility] on above: Acute exacerbation o f chronic low back pain (Primary Dx) Start: 11-11-2024 End: 11-11-2024 ambulatory [facility] Start: 10-14-2024 End: 10-14-2024 ambulatory [facility] Start: 09-17-2024 End: 09-17-2024 ambulatory NUBIA STEPHENS [facility] Start: 09-16-2024 End: 09-16-2024 ambulatory [facility] Start: 09-13-2024 End: 09-13-2024 ambulatory Andcirilo Fairbanks MD [facility] Start: 08-30-2024 End: 08-30-2024 ambulatory Ty Fairbanks MD Facility:[facility] Start: 08-26-2024 End: 08-26-[address] [facility] Start: 08-16-2024 End: 08-16-2024 ambulatory Ty Fairbanks MD Facility:[facility] Start: 08-12-2024 End: 08-12-2024 ambulatory [facility] [place] Start: 08-10-2024 End: 08-10-2024 Office outpatient visit [...] patient visit Priyank Gaspar MD Work Phone: [facility] Comment on above: Acute exacerbation o f chronic low back pain (Primary Dx) Start: 07-20-2024 End: 07-20-2024 Emergency department patient visit Yoli Lal MD Work Phone: [facility] Comment on above: Strain of lumbar reg ion, initial encounter (Primary Dx); Abnormal computed tomography of lumbar spine Start: 07-15-2024 End: 07-15-[address] [facility] Start: 06-25-2024 End: 06-25-[address] [facility] Start: 06-02-2024 End: 07-16-2024 Refill Destinee Britton MD Work Phone: [facility] Comment on above: Encounter for initia l prescription of contraceptive pills Start: 05-28-2024 End: 05-28-2024 ambulatory NUBIA STEPHENS [facility] Start: 05-27-2024 End: 05-27-2024 ambulatory CHAD WAYNE [facility] Start: 05-24-2024 End: 05-24-2024 Bamboo flowsheet Destinee [...] Hirsutism Start: 04-22-2024 End: 04-22-2024 ambulatory CHAD WAYNE [facility] Start: 11-11-2023 End: 11-11-[address] [facility] Work Phone: Start: 11-11-2023 End: 11-11-2023 Patient encounter procedure [facility] Work Phone: Start: 10-10-2023 End: 10-10-[address] [facility] Work Phone: Start: 10-10-2023 End: 10-10-2023 Patient encounter procedure [facility] Work Phone: Start: 07-09-2023 End: 07-09-2023 ambulatory Becky Romeo Other [facility] Other Start: 07-09-2023 Office outpatient vi sit 25 minutes Becky Romeo [facility] Start: 12-11-2022 End: 12-11-2022 ambulatory Becky Romeo Other [facility] Other Start: 12-11-2022 Telephone encounter Becky Romero i [facility] Start: 12-09-2022 Office outpatient vi sit 15 minutes Lexy Kraft [facility] Start: 12-09-2022 End: 12-09-2022 ambulatory PHYSICIAN NO [employer] Other Start: 12-09-2022 End: 12-09-2022 Patient encounter procedure PHYSICIAN NO [facility] Work Phone: Start: 09-27-2022 End: 09-27-2022 ambulatory Becky Romeo Other [facility] Other Start: 09-27-2022 Telephone encounter Becky Romero i [facility] Start: 08-14-2022 End: 08-14-2022 ambulatory Becky Romeo Facility:[facility] Start: 08-14-2022 End: 08-14-2022 ambulatory PHYSICIAN NO [facility] Work Phone: Start: 08-14-2022 End: 08-14-2022 Patient encounter procedure PHYSICIAN NO [facility] Work Phone: Start: 08-13-2022 End: 08-13-2022 ambulatory Becky Romeo Facility:[facility] Start: 08-13-2022 End: 08-13-2022 Patient encounter procedure PHYSICIAN NO [facility] Start: 08-13-2022 End: 08-13-2022 ambulatory PHYSICIAN NO [facility] Work Phone: Start: 08-13-2022 Telephone encounter Becky Romero i [employer] Start: 08-12-2022 End: 08-12-2022 ambulatory Becky Romeo Other [facility] Other Start: 08-12-2022 Encounter for genera l adult medical examination without abnormal findings Becky Romeo [facility] Start: 08-12-2022 Periodic preventive med est patient 18-39 yrs Becky Romeo [facility] Start: 05-20-2022 End: 05-20-2022 ambulatory Becky Romeo Other [facility] Other Start: 05-20-2022 Telephone encounter Becky Rome calderon [facility] Start: 02-08-2022 End: 02-08-2022 ambulatory Becky Romeo Other [facility] Other Start: 02-08-2022 Office outpatient vi sit 15 minutes Joselin Wilkins [facility] Start: 02-08-2022 Telephone encounter Becky Romero i [facility] Start: 02-06-2022 End: 02-06-2022 ambulatory Lexy Kraft Other [facility] Other Start: 02-06-2022 Office outpatient vi sit 15 minutes Lexy Kraft [facility] Start: 07-03-2021 End: 07-03-2021 ambulatory Becky Hernandezernestineyumiko Other [facility] Other Start: 07-03-2021 Office outpatient vi sit 15 minutes Becky Romeo [facility] Start: 05-19-2020 End: 05-19-[address] ROGE THACKER Facility:[facility]1 Start: 05-16-2020 Encounter for other preprocedural examination [facility] Start: 05-13-2020 End: 05-14-2020 ambulatory SUYAPA [facility] Facility:[facility] Start: 05-11-2020 End: 05-12-2020 ambulatory SUYAPA [facility] Facility:[facility] Start: 05-11-2020 End: 05-12-2020 Encounter for other preprocedural examination SUYAPA [facility] Facility:[facility] Start: 03-23-2020 End: 03-24-[address] DESTINEE BRITTON Facility:[facility] Start: 02-29-2020 End: 03-01-2020 ambulatory [facility] Facility:[facility] Start: 03-30-2019 End: 03-30-2019 Patient encounter procedure Radha Aguilera [facility] Procedures Date Procedure Procedure Detail Performing Clinician Start: 12-03-2024 Urnls dip stick/tabl et rgnt non-auto w/o micrscp Ness Montez [employer] [facility] Work Phone: Start: 07-20-2024 Ct lumbar spine [...] EST Office Visit BIANCA RAPP [address] [place] [address] Jovita Salas, WILLOW [address] [facility], [place] [id number] BIANCA RAPP Start: 04-11-2025 End: 04-11-2025 ambulatory 04/11/2025 5:30 PM EDT Treatment [facility] [address] [place] [address] Delia Kwan, PT [facility] Start: 04-04-2025 End: 04-04-2025 ambulatory 04/04/2025 5:30 PM EDT Treatment [facility] [address] [place] [address] Delia Kwan, PT [facility] Start: 03-29-2025 End: 03-29-2025 ambulatory [facility] Comment on above: Arrived Start: 03-24-2025 End: 03-24-2025 ambulatory [facility] Comment on above: Arrived Start: 03-21-2025 End: 03-21-2025 ambulatory [facility] Comment on above: Arrived Start: 03-15-2025 End: 03-15-2025 ambulatory 03/15/2025 5:30 PM EDT Treatment [facility] [address] [place] [address] Ryan Barger, SOCIAL SCIENCES INSTRUCTOR Arrived [facility] Comment on above: Arrived Start: 03-07-2025 Influenza vaccination Influenza Vacc ine (#1) [facility] Start: 03-02-2025 End: 03-02-2025 ambulatory 03/02/2025 5:30 PM EDT Treatment [facility] [address] [place] [address] Ryan Barger PTA [facility] Start: 02-28-2025 End: 02-28-2025 ambulatory 02/28/2025 6:00 PM EDT Treatment [facility] [address] [place] [address] Delia Kwan, MARYCARMEN [facility] Start: 02-24-2025 End: 02-24-2025 ambulatory 02/24/2025 6:00 PM EDT Treatment [facility] [address] [place] [address] Ofelia Blakely PTA [facility] Start: 02-15-2025 End: 02-15-2025 ambulatory 02/15/2025 6:00 PM EDT Treatment [facility] [address] [place] [address] Kem Costa PTA [facility] Start: 02-14-2025 End: 02-14-2025 Patient encounter procedure BIANCA RAPP Comment on above: Arrived Start: 02-08-2025 End: 02-08-2025 Patient encounter procedure 02/08/2025 4:00 PM EDT Office Visit [facility] [address] [place] [phone] Jovita Salas, CNM [address] [place], [place] [id number] [facility] Start: 02-01-2025 End: 02-01-2025 ambulatory [facility] Comment on above: Arrived Start: 01-27-2025 End: 01-27-2025 ambulatory [facility] Comment on above: Arrived Start: 01-24-2025 End: 01-24-2025 Evaluation 01/24/2025 6:00 PM EDT Evaluation [facility] [address] [place] [address] Delia Kwan, PT Sacrococcygeal disorders, not elsewhere classified (Primary Dx) [facility] Comment on above: Sacrococcygeal disor ders, not elsewhere classified (Primary Dx) Start: 12-03-2024 End: 12-03-2025 Bacteria identified in Urine by Culture Urine culture (clean catch) Microbiology Routine Nausea Pain of upper abdomen Expected: 12/03/2024 (Approximate), Expires: 12/03/2025 [facility] Comment on above: Expected: 12/03/2024 [...] upper abdomen Expected: 12/03/2024 (Approximate), Expires: 12/03/2025 [facility] Comment on above: Expected: 12/03/2024 (Approximate), Expires: 12/03/2025 Start: 12-03-2024 End: 12-03-2025 XR Abdomen Single view [facility] Work Phone: Comment on above: Expected: 12/03/2024 , Expires: 12/03/2025 Start: 12-03-2024 End: 12-03-2024 Patient encounter procedure 12/03/2024 1:30 PM EDT Office Visit [facility] [address] [place] [phone] Ness Montez NP [address] [place], [place] [phone] [facility] Start: 08-10-2024 End: 08-10-2024 Patient encounter procedure [facility] Comment on above: Arrived Start: 05-10-2024 End: 05-10-2025 Insulin, fasting Insulin, fasting Lab Routine Normal gynecologic examination Screening for cervical cancer PCOS (polycystic ovarian syndrome) Expected: 05/10/2024 (Approximate), Expires: 05/10/2025 [facility] Comment on above: Expected: 05/10/2024 (Approximate), Expires: 05/10/2025 Start: 05-10-2024 End: 05-10-2024 Patient encounter procedure 05/10/2024 2:00 PM EST Office Visit [facility] [address] [place] [phone] Jovita Salas, CNM [address] [place], [place] [phone] Arrived [facility] Comment on above: Arrived Start: 05-10-2024 End: 05-10-2025 THINPREP IMAGING PAP AND HPV DNA REFLEX HPV 16,18 THINPREP IMAGING PAP AND HPV DNA REFLEX HPV 16,18 Pathology and Cytology Routine Screening for cervical cancer Expected: 05/10/2024 (Approximate), Expires: 05/10/2025 [facility] Work Phone: Comment on above: Expected: 05/10/2024 (Approximate), Expires: 05/10/2025 Start: 03-07-2024 Influenza vaccination Influenza Vacc ine (#1) [facility] Start: 11-13-2023 DTaP/Tdap/Td vaccine (7 - Td or Tdap) DTaP/Tdap/Td vaccine (7 - Td or Tdap) [facility] Start: 08-14-2022 [facility] Start: 2021 Screening for malign ant neoplasm of cervix Pap smear [facility] Start: 2018 Hepatitis C screening Hepatitis C sc reen [facility] Start: 2016 Screening for Chlamy rafael trachomatis Chlamydia/GC screen [facility] Start: 2015 HIV screening HIV screen [facility] Start: 2015 HPV vaccine (1 - 3-d ose series) HPV vaccine (1 - 3-dose series) [facility] Start: 2012 Depression Screen Depression Screen [facility] CBC panel - Blood by Automated count CBC Lab Routine PCOS (polycystic ovarian syndrome) Ordered: 05/10/2024 [facility] Comment on above: Ordered: 05/10/2024 Glucose measurement estimated from glycated hemoglobin [facility] Hemoglobin A1c/Hemoglobin.total in Blood [facility] Hemoglobin A1c/Hemoglobin.total in Blood Hemoglobin A1c Lab Routine PCOS (polycystic ovarian syndrome) Ordered: 05/10/2024 [facility] Comment on above: Ordered: 05/10/2024 Immunizations Immunization Date Immunization Notes Care Provider Fabiana hinson 04-29-2024 SARS-COV-2 (COVID-19 ) vaccine, mRNA, spike protein, LNP, PF, anuj-sucrose, 30 mcg/0.3 mL Destinee Britton MD Work Phone: [facility] 04-29-2024 Seasonal, trivalent, recombinant, injectable influenza vaccine, preservative free Destinee Britton MD Work Phone: [facility] 04-29-2024 influenza virus vacc ine, unspecified formulation Delia Kwan PT [facility] 07-10-2019 Influenza, injectabl e, Madin Bhavana Canine Kidney, preservative free, quadrivalent Destinee Britton MD Work Phone: [facility] 07-10-2019 influenza, seasonal, injectable Becky Romeo Other [facility] 07-10-2019 influenza virus vacc ine, unspecified formulation Jovita Salas WILLOW Work Phone: [facility] 07-17-2018 Influenza, injectabl e, Madin [place] Canine Kidney, preservative free, quadrivalent Destinee Britton MD Work Phone: [facility] 03-02-2018 meningococcal polysaccharide (groups A, C, Y and W-135) diphtheria toxoid conjugate vaccine (MCV4P) Becky Romeo Other [facility] 05-19-2013 meningococcal polysaccharide (groups A, C, Y and W-135) diphtheria toxoid conjugate vaccine (MCV4P) Destinee Britton MD Work Phone: [facility] 05-19-2013 tetanus toxoid, redu latrice diphtheria toxoid, and acellular pertussis vaccine, adsorbed Destinee Britton MD Work Phone: [facility] 05-19-2013 varicella virus vaccine Destinee Britton MD Work Phone: [facility] 04-03-2006 diphtheria, tetanus toxoids and acellular pertussis vaccine, unspecified formulation Destinee Britton MD Work Phone: [facility] 04-03-2006 hepatitis B vaccine, pediatric or pediatric/adolescent dosage Destinee Britton MD Work Phone: [facility] 04-03-2006 measles, mumps and rubella virus vaccine Destinee Britton MD Work Phone: [facility] 04-03-2006 poliovirus vaccine, unspecified formulation Destinee Britton MD Work Phone: [facility] 04-03-2006 varicella virus vaccine Destinee Britton MD Work Phone: [facility] 03-03-2006 DTaP-hepatitis B and poliovirus vaccine Destinee Britton MD Work Phone: [facility] 03-03-2006 measles, mumps and rubella virus vaccine Destinee Britton MD Work Phone: [facility] 12-23-2001 measles, mumps and rubella virus vaccine Destinee Britton MD Work Phone: [facility] 09-17-2001 diphtheria, tetanus toxoids and acellular pertussis vaccine, unspecified formulation Destinee Britton MD Work Phone: [facility] 09-17-2001 haemophilus influenz ae type b vaccine, conjugate unspecified formulation Destinee Britton MD Work Phone: [facility] 2000 diphtheria, tetanus toxoids and acellular pertussis vaccine, unspecified formulation Destinee Britton MD Work Phone: [facility] 2000 haemophilus influenz ae type b vaccine, conjugate unspecified formulation Destinee Britton MD Work Phone: [facility] 2000 hepatitis B vaccine, pediatric or pediatric/adolescent dosage Destinee Britton MD Work Phone: [facility] 2000 poliovirus vaccine, unspecified formulation Destinee Britton MD Work Phone: [facility] 2000 haemophilus influenz ae type b vaccine, conjugate unspecified formulation Destinee Britton MD Work Phone: [facility] 2000 diphtheria, tetanus toxoids and acellular pertussis vaccine, unspecified formulation Destinee Britton MD Work Phone: [facility] 2000 poliovirus vaccine, unspecified formulation Destinee Britton MD Work Phone: [facility] 2000 diphtheria, tetanus toxoids and acellular pertussis vaccine, unspecified formulation Destinee Britton MD Work Phone: [facility] 2000 haemophilus influenz ae type b vaccine, conjugate unspecified formulation Destinee Britton MD Work Phone: [facility] 2000 hepatitis B vaccine, pediatric or pediatric/adolescent dosage Destinee Britton MD Work Phone: [facility] 2000 poliovirus vaccine, unspecified formulation Destinee Britton MD Work Phone: [facility] 2000 hepatitis B vaccine, pediatric or pediatric/adolescent dosage Destinee Britton MD Work Phone: [facility] Payers Date Payer Category Payer Unknown 2024 Unknown [id number] 2022 Blue Cross Blue Shield [id number] 2022 Self-pay [id number] 2022 Blue Cross Blue Shield 1.2.8 [id number] 15 2000 Unknown [id number] 2.16.84 0.1.170005.3.579.2.593 2000 Unknown [id number] 2.16.84 0.1.201313.3.579.2.593 2000 Unknown [id number] 2.16.84 0.1.878467.3.579.2.593 2000 Unknown [id number] 2.16.84 0.1.728737.3.579.2.593 2000 Unknown [id number] 2.16.84 0.1.538377.3.579.2.593 2000 Unknown [id number] 2.16.8 40.1.059966.3.579.2.173 2000 Unknown [id number] 2.16.8 40.1.445680.3.579.2.173 2000 Unknown [id number] 2.16.8 40.1.077481.3.579.2.173 2000 Unknown [id number] 2.16. 840.1.636345.3.579.2.196 2000 Unknown [id number] 2.16. 840.1.416572.3.579.2.196 2000 Unknown [id number] 2.16. 840.1.079005.3.579.2.196 2000 Unknown [id number] 2.16. 840.1.978590.3.579.2.196 2000 Unknown [id number] 2.16. 840.1.225448.3.579.2.196 2000 Unknown [id number] 2.16. 840.1.156842.3.579.2.196 2000 Unknown [id number] 2.16. 840.1.397652.3.579.2.196 2000 Unknown [id number] 2.16. 840.1.063291.3.579.2.128 2000 Unknown [id number] 2.16. 840.1.763806.3.579.2.1285 2000 Unknown [id number] 2.16. 840.1.888005.3.579.2.1285 2000 Unknown [id number] 2.16. 840.1.520993.3.579.2.1285 2000 Unknown [id number] 2.16. 840.1.903536.3.579.2.1285 2000 Unknown [id number] 2.16. 840.1.699082.3.579.2.1285 2000 Unknown [id number] 2.16. 840.1.749115.3.579.2.1285 2000 Unknown [id number] 2.16. 840.1.482278.3.579.2.1285 2000 Unknown [id number] 2.16. 840.1.803827.3.579.2.1285 2000 Unknown [id number] 2.16. 840.1.355268.3.579.2.1285 2000 Unknown [id number] 2.16. 840.1.541481.3.579.2.1285 2000 Unknown [id number] 2.16. 840.1.645187.3.579.2.1285 2000 Unknown [id number] 2.16. 840.1.345115.3.579.2.1286 2000 Unknown [id number] 2.16.8 40.1.092450.3.579.2.1286 2000 Unknown [id number] 2.16.8 40.1.371826.3.579.2.1286 2000 Unknown [id number] 2.16.8 40.1.968221.3.579.2.1286 2000 Unknown [id number] 2.16.8 40.1.963787.3.579.2.1286 1959 Unknown [id number] 2.16.8 40.1.748580.3.579.2.531 Unknown [id number] 2.16.8 40.1.755351.3.579.2.531 Unknown [id number] 2.16.8 40.1.369717.3.579.2.531 Social History Date Type Detail Facility Tobacco smoking stat [facility] Unknown if ever smoked [facility] Start: 2000 Sex Assigned At Female [facility] Start: 12-04-2023 End: 05-20-2024 Sex Assigned At [facility] Start: 10-10-2023 Tobacco smoking status WAIS Unknown if ever smoked [facility] Start: 06-26-2023 End: 05-20-2024 Tobacco smoking status WAIS Never smoked tobacco [facility] Start: 06-26-2023 End: 05-20-2024 Tobacco use and exposure Smokeless tobacco non-user [facility] Start: 12-04-2023 End: 05-10-2024 Alcoholic beverage intake Current drinker of alcohol (finding) [facility] Start: 12-04-2023 End: 05-20-2024 History of Social function [facility] Start: 06-11-2023 Alcohol Comment caffeine: 1-2 cups per day [facility] Start: 06-25-2023 Gender identity Identifies as female gender (finding) [facility] Start: 05-24-2024 End: 12-03-2024 Alcoholic beverage intake Ex-drinker (finding) [facility] How often do you nee d to have someone help you when you read instructions, pamphlets, or other written material from your doctor or pharmacy [SILS] Never [facility] Do you belong to any clubs or organizations such as yazidi groups, unions, fraternal or athletic groups, or [...] To some extent [facility] (I/We) worried [facility] (my/our) food would run out before (I/we) got money to buy more. Never true [facility] Start: 05-20-2024 Tobacco Comment Currently Vape everyday [facility] Start: 07-20-2024 Tobacco smoking status [email or web address] Ex-smoker [facility] History of tobacco use Current smoker [facility] History of tobacco use Cigarette Smoker [facility] Start: 2000 Sex assigned at Not on file [employer] Start: 08-16-2012 Sex Female (finding) [facility] How often do you nee d to have someone help you when you read instructions, pamphlets, or other written material from your doctor or pharmacy [SILS] Never [facility] Goals Date Patient Goal Desired Activity /State Clinical Notes 02-29-2020 to 04-04-2025 Delia Kwan, PT - 04/04/2025 5:30 PM Farhan Kwan, PT - 02/28/2025 6:00 PM EDTTelephone Encounter - Evon Loera - 02/15/2025 9:35 AM Ahmet Salas CNM - 02/14/2025 5:30 PM EDT Note Date & Type Note Facility 04-04-2025 History of Presen t illness Narrative Images from the original note were not included. Physical Therapy Treatment Visit Patient Name: Edwige Sierra Today's Date: 04/04/2025 Encounter Diagnoses Name Primary? [...] prone, PA mobs, sacral distractions, MFR/TPR to L piriformis and proximal glute max, to reduce [...] to be instructed in home exercise program. Residential Goals: To be met in 10 weeks [...] sign below. Date: documented in this encounter [facility] 02-28-2025 History of Presen t illness Narrative [...] to be instructed in home exercise program. [employer] Goals: To be met in 10 weeks [...] sign below. Date: documented in this encounter [facility] 02-15-2025 Telephone encount er Note Jackson left at 9:13 am Nm, this is Jenn from [facility] in [place]. I am calling about a mutual patient. Edwige Leonardo. Date of is 2000. I am calling about the spring 4th aspect or the control you guys sent over the quantity on the prescription. They only come in packs at 28. So we need a quantity on that prescription to say 84 with 3 refills. If you could please either send over any prescription with the correct quantity or give us a callback that would be great. Our phone number here is [phone]. Again, this is Jenn from [facility] coming from a Main for Edwige Evans move 2000 for the spring tech or generic, nor just with [employer] [place], dial the control, calling the change quantity to 84 because they only come in back to 28 and we can not open the pack again, phone number [phone] if you want to call for change or send over a brand new prescription with the correct quantity of 84? Thank you. [facility] 02-15-2025 Miscellaneous Notes Formattin g of this note might be different from the original. Vm left at 9:13 am Hi, this is Jenn from [facility] in [place]. I am calling about a mutual patient. [...] be great. Our phone number here is [phone]. Again, this is Jenn from [facility] coming from a Main for Edwige Evans move 2000 for the spring tech or generic, nor just with [employer] [place], dial the control, calling the change quantity to 84 because they only come in back to 28 and we can not open the pack again, phone number [phone] if you want to call for change or send over a brand new prescription with the correct quantity of 84? Thank you. documented in this encounter [facility] 02-14-2025 History of Presen t illness Narrative PROBLEM VISIT Edwige Sierra is 24 y.o. a patient of [facility] [employer] Here for 6 month follow up Last [...] times a day as needed [employer]-Eth Estradiol (Gqv-Ei-Xpgcrs) 0.18/0.215/0.25 MG-25 MCG tablet TAKE 1 TABLET [...] MA,02/14/2025 5:18 PM documented in this encounter [facility] 01-24-2025 History of Presen t illness [...] to be instructed in home exercise program. [employer] Goals: To be met in 10 weeks [...] sign below. Date: documented in this encounter [facility] 01-06-2025 Evaluation note Diagnosis Onset Date Resolution Paresthesias acute January 06 2:55pm Pain of left sacroiliac joint acute January 11, 2025 9 :14am Pain of right sacroiliac joint acute January 11, 2025 9:14am Paresthesias acute January 11 9:14am [facility] Work Phone: 1(707) 803-655205-30-2025 History of Present illness Narrative* Ness Montez [...] prompting another visit to the ER in [place]. A diagnosis of viral gastroenteritis was made [...] HPI Flowsheet Row Documentation from 11/30/2024 in [facility] with [facility] Information ED, Hospital or Jail Facility Discharge? ED Patient has been contacted within 2 days of being seen in the ED Yes Diagnosis Viral Infection Discharge Date 11/28/24 Discharged To: Home Setting Discharge Hospital [facility] Engagement Call Start Time 1528 Admission [...] Sierra Heart failure Other g-ma Diabetes Sister Jovaan Sierra Mental illness Sister Jovana Sierra SOCIAL [...] fluid intake and abstain from smoking marijuana. Ueqd-wso-lvefjpi MiraLAX can be used if constipation persists. [...] or other abnormalities. - Advised to use rpzv-jbj-bsfzbtc MiraLAX if constipation persists and to increase fluid intake. - Blood work will be done to assess kidney and liver function. No follow-ups on file. documented in this encounterLiberty [id number] Hospital Discharge instructions* Discharge Instructions* Alicia Dunn [...] * Back [facility] ([place]) [facility] of Present illness Narrative* Jovita Salas CNM - 08/10/2024 4:00 PM EST PROBLEM VISIT Edwige Sierra is 24 y.o. a patient of [facility] Here for follow up on medications Last pap: Last mammogram: n/a No LMP recorded. History: Past Medical History: Diagnosis Date Anxiety 10/2023 Depression 12/2019 Right ankle sprain No past surgical history on file. Family History Problem Relation Name Age of Onset Diabetes Mother Kelsy Sierra Cancer Paternal Grandmother Tawnya Sierra Heart failure Other g-ma Diabetes Sister Jovana Sierra Mental illness Sister [facility] Allergies: No Known Allergies Medications: [...] Salas CNM,12/16/2024 4:48 PMpatient documented in this encounterLiberty [id number] Hospital Discharge instructions* Discharge Instructions* Octavio Day [...] Back Pain (Gu[place]ian) [facility] Discharge instructions* Discharge Instructions* Yoli [...] or Sprain ([place]ian) [facility] Telephone encounter Note* Telephone Encounter - Bess Lomeli - 06/02/2024 1:06 PM EST Pt called and left a vm at 12:41 pm today She said she has been waiting for her BC to be called over to [facility] but they haven't received anything. She asked if that can please be sent over. [facility] [id number] Miscellaneous Notes* [facility]02[facility]24 1:06 PM EST Pt called and left a vm at 12:41 pm today She said she has been waiting for her BC to be called over to [facility] but they haven't received anything. She asked if that can please be sent over. documented in this encounterLiberty [id number] History of Present illness Narrative* Destinee Britton [...] should contact the clinic. documented in this encounterLiberty [id number] History of Present illness Narrative* Destinee Britton [...] child. SOCIAL HISTORY She works at the [employer]. She is getting her master's degree in [...] bite block during sleep. documented in this encounterLiberty [id number] History of Present illness Narrative* ALEJANDRA Cruz - 05/10/2024 2:00 PM EST YEARLY HPI: This is a established patient. Chief Complaint Patient presents with Gynecologic Exam Here for annual exam. OB History Para Term AB Living 0 0 0 0 0 0 SAB IAB Ectopic Multiple Live Births 0 0 0 0 0 [employer]PERATOR complaints: no Changes in healthsince last visit: [...] MA, 05/10/2024 2:06 PM documented in this encounterLiberty [id number] Evaluation note* Encounter Date Diagnosis Assessment Notes [...] will consider a PPI and GI consultation. [facility] Other 06-05-2023 Evaluation note* Encounter Date Diagnosis [...] no improvement in 5 to 7 days [facility] Other 02-06-2023 Evaluation note* Encounter Date Diagnosis [...] Screening for deficiency anemia (ICD-10 - Z13.0) [facility] Other 08-05-2022 Evaluation note* Encounter Date Diagnosis [...] understanding and is agreeable to treatment plan. [facility] Other 08-03-2022 Evaluation note* Encounter Date Diagnosis [...] no improvement in 2 to 3 days. [facility] Other 12-28-2021 Evaluation note* Encounter Date Diagnosis Assessment Notes Treatment Notes Treatment Clinical Notes Jun, Exposure to COVID-19 virus (ICD-10 - Z20.822) Jun, COVID-19 (ICD-10 - U07.1) Patient's rapid test is positive for Covid-19. She is given instructions for quarantine and supportive care. Call immediately for change/worsening or with questions/concerns. [facility] Other 11-13-2020 NotePROCEDURE: XR ANKLE RT MIN 3 VIEWS COMPARISON: 05/19/2020 intraprocedural, 04/02/2020 HISTORY: Postoperative care FINDINGS: BONES:No fracture, acute abnormality, or significant arthropathy. SOFT TISSUES:Post procedural soft tissue swelling, subcutaneous air and lateral surgical elaina EFFUSION:None visible. OTHER: Negative. IMPRESSION: Postprocedural changes Electronically authenticated by: ROGE THACKER Date: 2020-05-19 14:02[facility]11-13-2020 NotePROCEDURE: XR ANKLE RT 2V COMPARISON: 02/29/2020 [...] procedural tibiotalar joint instability Electronically authenticated by: RGOE THACKER Date: 2020-05-19 14:00[id number] History general Narrative - Reported* Type Description Date Medical History Chronic back pain Medical History Hx of concussion Medical History acne Medical History chronic depression Surgical History ankle reconstruction- right 2019 [facility] Other 09-17-2020 NotePROCEDURE: XR FOOT RT MIN 3 VIEWS COMPARISON: 02/29/2020 HISTORY: Pain in right foot FINDINGS: BONES:Stable intra-articular transverse fracture base of the fifth metatarsal. No acute fracture or dislocation SOFT TISSUES:Negative. No visible soft tissue swelling. EFFUSION:None visible. OTHER: Negative. IMPRESSION: Stable healing intra-articular transverse fracture base of the fifth metatarsal Electronically authenticated by: ROGE THACKER Date: 2020-03-23 10:22 [facility] [id number] NotePROCEDURE: XR ANKLE RT MIN 3 VIEWS, [...] authenticated by: ROGE THACKER Date: 2020-02-29 12:57[facility] [id number] NotePROCEDURE: XR ANKLE RT MIN 3 VIEWS, [...] authenticated by: ROGE THACKER Date: 2020-02-29 12:57[facility] HospitalEvaluation noteNo InformationNortAuto Secure Other Evaluation noteNo assessment information available [facility] Work Phone: evaluation note* Diagnosis Onset Date Resolution Status Bilateral acute otitis media resolved [facility] Work Phone: evaluation note* Diagnosis PCOS (polycystic ovarian syndrome)- Primary Polycystic ovaries Normal gynecologic examination Screening for cervical cancer Screening for malignant neoplasm of the cervix Other acne Hirsutism documented in this encounter [facility]* Diagnosis Candidiasis- Primary Acute nausea with nonbilious vomiting documented in this encounter [facility] Healthcare[facility] note* Diagnosis Candidiasis- Primary documented in this encounter [facility] HealthcareEvaluation note* Diagnosis Encounter for initial prescription of contraceptive pills documented in this encounter [facility] HealthcareEvaluation note* Diagnosis Strain of lumbar region, initial encounter- Primary Abnormal computed tomography of lumbar spine documented in this encounter [facility]* Diagnosis Acute exacerbation of chronic low back pain- Primary documented in this encounter [facility]* Diagnosis Acute exacerbation of chronic low back pain- Primary documented in this encounter [facility]* Diagnosis Nausea- Primary Nausea alone Pain of upper abdomen documented [facility] this encounter [facility]* Diagnosis Unwanted fertility- Primary PCOS (polycystic ovarian syndrome) Polycystic ovaries documented in this encounter [facility] HealthcareEvaluation note* Diagnosis Onset Date Resolution Status Admit Date Paresthesias acute January 06 2:55pm [facility] Work Phone: evaluation note* Diagnosis Sacrococcygeal disorders, [...] History Hx of concussion Medical History acne [facility]ole[employer], [facility] [employer] Other History general Narrative - Reported* Type Description Date Medical History Chronic back pain Medical History Hx of concussion Medical History acne Medical History chronic depression [employer], [facility] [employer] Other Reason for referral (narrative)No reason for referral information available[facility] Work Phone: Reason for visit Narrative* Rehabilitation - Outpatient (Routine) - Authorized Specialty Diagnoses / Procedures Referred By Contac t Referred To Contact Physical Therapy Diagnoses Sacrococcygeal disorders, not elsewhere classified Procedures [place] PHYSICAL THERAPY EVALUATION LOW COMPLEX 20 MINS FL OFFICE/OUTPATIENT [facility] 60 MINUTES Feliz Musa MD [address] [place] [address], [address] [place] [address] Phone: tel: fax: Delia Kwan PT Referral ID Status Reason Start Date Expiration Date V isits Requested Visits Authorized [id number] Authorized 01/24/2025 03/24/2025 6 6 [facility] HealthcareReason for visit Narrative* Rehabilitation - Outpatient (Routine) - Closed Specialty Diagnoses / Procedures Referred By Contac t Referred To Contact Physical Therapy Diagnoses Sacrococcygeal disorders, not elsewhere classified Procedures [place] PHYSICAL THERAPY EVALUATION LOW COMPLEX 20 MINS FL OFFICE/OUTPATIENT NEW HIGH MDM 60 MINUTES Feliz Musa MD [address], [address] [place] [address] Phone: tel: fax: Delia Kwan, PT Referral ID Status Reason Start Date Expiration Date Visits Re quested Visits Authorized [id number] Closed 01/24/2025 03/24/2025 6 6 [facility] HealthcareReason for visit Narrative* Rehabilitation - Outpatient (Routine) - Authorized Specialty Diagnoses / Procedures Referred By Contac t Referred To Contact Physical Therapy Diagnoses Sacrococcygeal disorders, not elsewhere classified Procedures FL THER PX 1/> AREAS EACH 15 MIN NEUROMUSC REEDUCA [place] MANUAL THERAPY TQS 1/> REGIONS EACH 15 MINUTES FL THERAPEUTIC PX 1/> AREAS EACH 15 MIN EXERCISES PHYS/OCC THERAPY SS Feliz Musa MD [address], [address] [place] [address] Phone: tel: fax: Delia Kwan, MARYCARMEN Referral ID Status Reason Start Date Expiration Date V isits Requested Visits Authorized [id number] Authorized 03/09/2025 05/07/2025 6 6 [facility] Advance Directives No Advanced Directives Records [...] 6:50a m EMG BLE per Jazmin Yanez [facility] January 06 2:55pm Reason for Visit Admit Date Paresthesias January 06, 2025 2:55p m Chief Complaint Admit Date Amb Documentation December 01, 2024 6:50a m EMG BLE per Jazmin Yanez [facility] January 06 2:55pm low back pain [...] and content) DATE CREATED AUTHOR 01/04/2021 [facility] DATE CREATED AUTHOR AUTHOR'S ORGANIZ ATION 06/27/2021 [facility] dical Specialist DATE CREATED AUTHOR AUTHOR'S ORGANIZ ATION 12/16/2022 [facility] DATE CREATED AUTHOR AUTHOR'S ORGANIZ ATION 12/01/2024 [facility] DATE CREATED AUTHOR AUTHOR'S ORGANIZ ATION 03/23/2025 [facility] DATE CREATED AUTHOR AUTHOR'S ORGANIZ ATION 04/16/2025 [facility] REASON FOR VISIT (unrecogniz ed [...] since 2016. MRI completed on Friday in [place]. Reason Comments Back Pain Bilateral lower back [...] November 11, 2023 End: November 11, 2023 Elementary [employer] 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 Relationship Specialty Start Date End Date Destinee Britton MD [address] [facility] [place] [address] PCP - General Family Medicine 11/12/22 Elementary [employer] 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 Relationship Specialty Start Date End Date Destinee Britton MD [address] [facility] [place] [address] PCP - General Family Medicine 11/12/22 Elementary School 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 Relationship Specialty Start Date End Date Destinee Britton MD [address] [facility] [place] [address] PCP - General Family Medicine 11/12/22 Elementary School 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 Relationship Specialty Start Date End Date Destinee Britton MD [address] [address] PCP - General Family Medicine 11/12/22 Elementary School 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 Relationship Specialty Start Date End Date Destinee Britton MD [address] [place] [address] PCP - General Family Medicine 11/12/22 Elementary School 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 Relationship Specialty Start Date End Date Becky Romeo DO NPI: [address] [place] [address];[address] [place] [address] PCP - General Family Medicine 07/20/24 Elementary School 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 Relationship Specialty Start Date End Date Becky Romeo DO NPI: [address] [place] [address];[address] [place] [address] PCP - General Family Medicine 07/20/24 Elementary School 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 Relationship Specialty Start Date End Date Becky Romeo DO NPI: [address] [place] [address];[address] [place] [address] PCP - General Family Medicine 07/20/24 Elementary School 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 Relationship Specialty Start Date End Date Destinee Britton MD [address] [facility] [place] [address] PCP - General Family Medicine 11/12/22 Elementary School 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 Relationship Specialty Start Date End Date Destinee Britton MD [address] [place] [address] PCP - General Family Medicine 11/12/22 Elementary School 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 Relationship Specialty Start Date End Date Destinee Britton MD [address] [place] [address] PCP - General Family Medicine 11/12/22 Team Status: Inactive Member Role Status Dates Becky Romeo DO Primary Care Provider Active Start: January 11, 2025 End: January 11, 2025 Feliz Musa MD Attending Provider Active Star t: January 11, 2025 End: January 11, 2025 Elementary School 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 Relationship Specialty Start Date End Date Destinee Britton MD [address] [facility] [place] [address] PCP - General Family Medicine 11/12/22 Elementary School 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 Relationship Specialty Start Date End Date Destinee Britton MD [address] [facility] [place] [address] PCP - General Family Medicine 11/12/22 Elementary School 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 Relationship Specialty Start Date End Date Destinee Britton MD [address] [facility] [place] [address] PCP - General Family Medicine 11/12/22 Elementary School 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 Relationship Specialty Start Date End Date Destinee Britton MD [address] [facility] [place] [address] PCP - General Family Medicine 11/12/22 Elementary School 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 Relationship Specialty Start Date End Date Destinee Britton MD [address] [facility] [place] [address] PCP - General Family Medicine 11/12/22 Elementary School 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 Relationship Specialty Start Date End Date Destinee Britton MD [address] [facility] [place] [address] PCP - General Family Medicine 11/12/22 Elementary School 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 Relationship Specialty Start Date End Date Destinee Britton MD [address] [facility] [place] [address] PCP - General Family Medicine 11/12/22 Elementary School 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 Relationship Specialty Start Date End Date Destinee Britton MD [address] [place] [address] PCP - General Family Medicine 11/12/22 Elementary School 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 Relationship Specialty Start Date End Date Destinee Britton MD [address] [place] [address] PCP - General Family Medicine 11/12/22 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 School 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 Relationship Specialty Start Date End Date Destinee Britton MD [address] [place] [address] PCP - General Family Medicine 11/12/22 Elementary School 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 Relationship Specialty Start Date End Date Destinee Britton MD [address] [place] [address] PCP - General Family Medicine 11/12/22 Elementary School 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 Relationship Specialty Start Date End Date Destinee Britton MD [address] [place] [address] PCP - General Family Medicine 11/12/22 Elementary School 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 Relationship Specialty Start Date End Date Destinee Britton MD [address] [place] [address] PCP - General Family Medicine 11/12/22 Elementary School 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 Relationship Specialty Start Date End Date Destinee Britton MD [address] [place] [address] PCP - General Family Medicine 11/12/22 Elementary School 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 Relationship Specialty Start Date End Date Destinee Britton MD [address] [place] [address] PCP - General Family Medicine 11/12/22 Elementary School 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 Relationship Specialty Start Date End Date Destinee Britton MD [address] [place] [address] PCP - General Family Medicine 11/12/22 Goals [...] e 07/20/24 at 1615, For 1 dose 1615 (Given [...] BE BASED ON THE PRIMARY CLINICAL RECORDS. [facility]. provides no warranty or guarantee of the accuracy or completeness of information in this document.
[2025-04-18 09:11] VITALS: BP 123/79; PULSE 81; TEMP 36.3; O2SAT 95
[2025-04-18 09:36] VITALS: BP 116/67; PULSE 69; O2SAT 99
[2025-04-18] MEDS: LIDOCAINE HCL 2% 400 MG/20 ML MDV INJ (09:37)
[2025-04-18] MEDS: BUPIVACAINE HCL 0.25% PF 25 MG/10 ML VIAL 8 ML INJ (09:37)
[2025-04-18 09:38] VITALS: PULSE 66; O2SAT 100
[2025-04-18 09:39] VITALS: BP 109/56
--- NOTE | 2025-04-18 09:39 | W.PM.PROCNOT ---
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 An informed consent was obtained and placed on the chart.? The patient was brought to the medical procedure unit and placed in the prone position.? A timeout was completed verifying correct patient, procedure site, positioning, plan, and special equipment.? Using aseptic technique, the needle was placed at left L4. Under direct fluoroscopic visualization a Quincke-tipped spinal needle was advanced to the junction of the superior articulating process with the transverse process at the designated medial branch segment.? Preceded by negative aspiration, the above-mentioned injectate was placed in 1 mL aliquots.? The procedure was repeated at left L5, S1.? The needle was removed and insertion site was covered. The same procedure, at the same levels, was completed on the right side. The patient was taken to the postprocedural recovery area and monitored for an appropriate length of time before found suitable for discharge in the company of a responsible adult. Anesthesia: Local Surgeon: Ty Fairbnaks Pathology: none sent Condition: stable Disposition: no change
== END 2025-04-18 09:44 | disposition home or self-care (01) ==
PROVIDERS: PCP Student in an Organized Health Care Education/Training Program; Visit Provider Anesthesiology
DX: M47.816 Spondylosis without myelopathy or radiculopathy, lumbar region (principal); M54.50 Low back pain, unspecified
CPT/HCPCS: 64493; 64494; 84703; J0665

== ENCOUNTER 2025-04-20 08:46 | Outpatient (OUT) | payer BC, SELFPAY ==
--- OUTSIDE RECORDS SUMMARY | 2025-04-20 08:50 | XMS_ITS | CCD ---
Author Organization [facility] Care Team Providers Care Fur Clipper Name Role Phone Radha Aguilera Attending Provider [...] Unavailable Lexy Kraft Unavailable Joselin Wilkins Unavailable [phone] NO FAMILY, PHYSICIAN Primary Care Provider Unava [...] Giovana BOWEN, Mack Zimmerman Attending Provider [phone] Lencho LANDIS, Feliz Queen Attending Provider Magdi [...] tablet by mouth once daily Norg[employer]-Eth Estradiol (Fum-Ig-Frmsnl) 0.18/0.215/0.25 MG-25 MCG tablet Indications: Unwanted fertility [...] Drug Class(es) Dates Sig (Normalized) Sig (Original) [id number] actuat albuterol 0.09 mg/actuat metered dose [...] 11, 2023 2:33pm take 1 capsule by [facility] every eight hours Dicyclomine HCl 10 [...] Interpretation and review of laboratory results Normal [facility] Preg Test, Ur Negative Negative [facility] Urinalysis macro (dipstick) panel (U)on 12-03-2024 Bilirubin, UA 3+ Negative - 4(70) +++ mg/dL [facility] Blood, UA Negative Negative - 50 Aidan/mcL [facility] Clarity, UA Clear [facility] Color, UA Yellow [facility] Glucose, UA Negative Negative - 2000(110) ++++ mg/dL [facility] Interpretation and review of laboratory results Abnormal [facility] Ketones, UA Positive Negative - 160(16) ++++ mg/dL [facility] Leukocytes, UA 1+ Negative - 500+++ Samira/mcL [facility] Nitrite, UA Negative Negative - Positive [facility] pH, UA 6 5 - 9 [facility] Protein, UA 1+ Negative - 2000(20) ++++ mg/dL [facility] Spec Grav, UA 1.02 1 - 1.03 [facility] Urobilinogen, UA 0.2 0.2 - 12 mg/dL [facility] CT LUMBAR SPINE WO CONTRASTo n 07-20-2024 [...] Octavio Lowe MD 07/20/24 Final result Normal [facility] CT Lumbar spine WO contrasto n 07-20-2024 [...] facets throughout with no significant spinal stenosis. [facility] RIS CONSOLIDATED EXAMINATION: CT OF THE [...] TISSUES/RETROPERITONE UM: No paraspinal mass is seen. [facility] RIS Octavio Rosen MD - 07/20/2024 [...] facets throughout with no significant spinal stenosis. [facility] Radiology Study observation (narrative) [facility] CT Lumbar spine WO contrastO rdered By: Octavio Lowe on 07-20-2024 [facility] Work Phone: HCG, ,Urineon 07-20 Beta HCG ( test) Ql (U) Negative Normal NEG [facility] Comment on above: Result Comment: Spec imens with hCG levels near the threshold of the test (25 mIU/mL) may give a negative or indeterminate result. In such cases, another test should be performed with a new specimen in 48-72 hours. If early is suspected clinically in this setting, correlation with quantitative serum b-hCG level is suggested. [employer] has confirmed the use of plasma for this test. This has not been cleared or approved by the U.S. Food and Drug Administration. The FDA has determined that such clearance is not necessary. Performed By: #### U HCG #### [facility] [address] [place], [place] [id number] Cartoon Artist: Roge Rios MD Microscopic Urinalysison Amorphous sediment LM Ql (Urine sed) 1+ Abnormal None [facility] Epithelial cells LM.HPF (Urine sed) [#/Area] 2 TO 5 [facility] Interpretation and review of laboratory results Abnormal [facility] RBC LM.HPF (Urine sed) [#/Area] 0 TO 2 [facility] Renal Epithelial, UA 2 TO 5 0 /HPF [facility] WBC LM.HPF (Urine sed) [#/Area] 5 TO 10 [facility] , Urineon HCG ( test) Ql (U) Negative NEGATIVE [facility] Comment on above: Specimens with hCG l evels near the threshold of the test (25 mIU/mL) may give a negative or indeterminate result. In such cases, another test should be performed with a new specimen in 48-72 hours. If early is suspected clinically in this setting, correlation with quantitative serum b-hCG level is suggested. [employer] has confirmed the use of plasma for this test. This has not been cleared or approved by the U.S. Food and Drug Administration. The FDA has determined that such clearance is not necessary. [facility] Urinalysison 07-20-2024 Bilirubin Ql (U) Negative NEGATIVE [facility] Clarity (U) SLIGHTLY CLOUDY Abnormal Clear [facility] [employer] Color (U) Yellow Yellow [facility] Glucose Test strip (U) [Mass/Vol] Negative NEGATIVE mg/dL [facility] Hemoglobin Auto test strip Ql (U) Negative NEGATIVE [facility] Interpretation and review of laboratory results Abnormal [facility] Ketones (U) [Mass/Vol] Negative NEGAT AUGUSTINE mg/dL [facility] Leukocyte esterase Test strip Ql (U) SMALL Abnormal NEGATIVE [facility] Nitrite Ql (U) Negative NEGATIVE [facility] pH (U) 8.0 [pH] 5.0 - 9.0 [facility] Protein (U) [Mass/Vol] Negative NEGAT AUGUSTINE mg/dL [facility] Specific gravity (U) [Rel density] 1.020 1.010 - 1.020 [facility] Urobilinogen Qn (U) Normal 0.0 - 1. 0 EU/dL [facility] Urinalysis, Routineon 2024 Bilirubin, SemiQt,Ur Negative Normal NEG [facility] Comment on above: Performed By: #### U A, UMICAO #### [facility] [address] [place] [address] [place]. [place], [place] [id number] Cartoon Artist: Roge Rios MD Blood, Urine Negative Normal NEG [facility] Comment on above: Performed By: #### U A, UMICAO #### [address] [place], [place] [id number] Cartoon Artist: Roge Rios MD Clarity (U) SLIGHTLY CLOUDY Abnormal CLEAR [facility] Comment on above: Performed By: #### U A, UMICAO #### [facility] [address] [place] [address] [place]. [place], [place] [id number] Cartoon Artist: Roge Rios MD Color (U) Yellow Normal YEL [facility] Comment on above: Performed By: #### U A, UMICAO #### [facility] [address] [place] [address] Dr. [place], [place] [phone] Cartoon Artist: Roge Rios MD Glucose Ql (U) Negative Normal NEG [facility] in Hospital Comment on above: Performed By: #### U A, UMICAO #### [facility] [address] [place] [address] Dr. [place], [place] 14[address]883 Cartoon Artist: Roge Rios MD Ketones Ql (U) Negative Normal NEG [facility] in Hospital Comment on above: Performed By: #### U A, UMICAO #### [facility] [address] [place] [address] [place]. [place], [place] [id number] Cartoon Artist: Roge Rios MD Leukocyte esterase Test strip Ql (U) SMALL Abnormal NEG [facility] Comment on above: Performed By: #### U A, UMICAO #### [facility] [address] [place] [address] [place] [address] Cartoon Artist: Roge Rios MD Nitrite,Ur Negative Normal NEG [facility] Comment on above: Performed By: #### U A, UMICAO #### [facility] [address] [place] [address] [place] [address] Cartoon Artist: Roge Rios MD PH,Ur 8.0 Normal 5.0-9.0 [facility] Comment on above: Performed By: #### U A, UMICAO #### [address] [place], [place] [address] Cartoon Artist: Roge Rios MD Protein Ql (U) Negative Normal NEG [facility] Comment on above: Performed By: #### U A, UMICAO #### [address] [place], [place] [address] Cartoon Artist: Roge Rios MD Spec. Maxwell,Ur 1.020 Normal 1.010-1.020 [facility] Comment on above: Performed By: #### U A, UMICAO #### [address] [place], [place] [address] Cartoon Artist: Roge Rios MD Urobilinogen,Ur Normal Normal 0.0-1.0 [facility] Comment on above: Performed By: #### U A, UMICAO #### [address] [place], [place] [address] Cartoon Artist: Roge Rios MD Urinalysis,Microon 5 Amorphous sediment LM Ql (Urine sed) 1+ Abnormal NONE [facility] Comment on above: Performed By: #### U A, UMICAO #### [address] [place], [place] [id number] Cartoon Artist: Roge Rios MD Epithelial cells LM Ql (Urine sed) 2 TO 5 Normal 0-25 [facility] Comment on above: Performed By: #### U A, UMICAO #### [facility] [address] [place] [address] Cartoon Artist: Roge Rios MD Epithelial, Renal 2 TO 5 Normal 0 [facility] Comment on above: Performed By: #### U A, UMICAO #### [facility] [address] [place], [place] [address] Cartoon Artist: Roge Rios MD Urine RBC's 0 TO 2 Normal 0-2 [facility] Comment on above: Performed By: #### U A, UMICAO #### [facility] [address] [place] [address] Cartoon Artist: Roge Rios MD Urine WBC's 5 TO 10 Normal 0-5 [facility] Comment on above: Performed By: #### U A, UMICAO #### [facility] [address] [place] [address] Cartoon Artist: Roge Rios MD COVID + FLU Quick Testingon 07-09-2023 SARS-CoV-2 (COVID-19) RNA THA+probe Ql (Unsp spec) Negative [facility] [employer] Other COVID + FLU Quick Testing Negative [facility] [employer] Other XR wrist LT min 3V*on 2022 XR wrist LT min 3V* [facility] [employer] Other XR wrist LT min 3V* [facility] [employer] Other XR wrist LT min 3V* [address] [place] [address] [employer] Other XR wrist LT min 3V* [place] [address] [facility] [employer] Other XR wrist LT min 3V* XRay Report [facility] [employer] Other XR wrist LT min 3V* Signed [employer] Other XR wrist LT min 3V* Patient: Edwige Sierra MR#: [id number] [employer] Other XR wrist LT min 3V* [id number] [employer] Other XR wrist LT min 3V* : 2000 Acct:[id number] [employer] Other XR wrist LT min 3V* Age/Sex: 22 / F ADM Date: 12/09/22 [employer] Other XR wrist LT min 3V* Loc: XDUCLY Room: Type: [facility] [employer] Other XR wrist LT min 3V* Attending Dr: Lexy BLAKE [employer] Other XR wrist LT min 3V* Copies to: LOU Hernandez [employer] Other XR wrist LT min 3V* Ordering Provider: LOU Hernandez [employer] Other XR wrist LT min 3V* Date of Service: 12/09/22 [employer] Other XR wrist LT min 3V* XR/XR wrist LT min 3V*: Left wrist pain [employer] Other XR wrist LT min 3V* ([id number]) XR/XR hand LT min 3V*: Left wrist pain [employer] Other XR wrist LT min 3V* 3 views LEFT hand plain film [employer] Other XR wrist LT min 3V* COMPARISON: None [employer] Other XR wrist LT min 3V* HISTORY: LEFT hand injury. Pain involving the distal middle finger. Dorsal wrist pain [employer] Other XR wrist LT min 3V* ACUTE FINDINGS: None [employer] Other XR wrist LT min 3V* DEGENERATIVE CHANGE: Unremarkable [employer] Other XR wrist LT min 3V* SOFT TISSUE FINDINGS : Unremarkable [employer] Other XR wrist LT min 3V* JOINT EFFUSION: None [employer] Other XR wrist LT min 3V* POSTOP CHANGES: None [employer] Other XR wrist LT min 3V* BONY MINERALIZATION: Adequate [employer] Other XR wrist LT min 3V* XR/XR hand LT min 3V* [employer] Other XR wrist LT min 3V* IMPRESSION: No acute findings [employer] Other XR wrist LT min 3V* 4 views LEFT wrist plain film [employer] Other XR wrist LT min 3V* BONE MINERALIZATION: Adequate [employer] Other XR wrist LT min 3V* IMPRESSION: No acute bony findings. [employer] Other XR wrist LT min 3V* Impression dictated by: Misbah Mast M.D.12/09/2022 11:59 AM [employer] Other XR wrist LT min 3V* Dictation Location: [place] [address] [employer] Other XR wrist LT min 3V* Transcribed By: DOMINIQUE 12/09/22 1159 [employer] Other XR wrist LT min 3V* Dictated By: Misbah Mast DO 12/09/22 1158 [employer] Other XR wrist LT min 3V* Signed By: [employer] Other XR wrist LT min 3V* 12/09/22 1159 No rth [employer] Other XR wrist LT min 3V* [facility] Main [place] [address] [place], [place] [id number] XRay Report Signed Patient: Edwige Sierra MR#: [id number] : 2000 Acct:[id number] Age/Sex: 22 / F ADM Date: 12/09/22 Loc: XDUCLY Room: Type: [facility] Attending Dr: Lexy BLAKE Copies to: LOU Hernandez Ordering Provider: LOU Hernandez Date of Service: 12/09/22 XR/XR wrist LT min 3V*: Left wrist pain ([id number]) XR/XR hand LT min 3V*: Left wrist [...] Misbah Mast M.D.12/09/2022 11:59 AM Dictation Location: [place] [address] Transcribed By: [facility] 12/09/22 1159 Dictated By: Misbah Mast DO 12/09/22 1158 Signed By: 12/09/22 1159 Normal [facility] A1C with Estimated Average G jaredn 08-14-2022 HbA1c (Bld) [Mass fraction] 5.200 % Normal 4.3-5.6 % [employer] Other HbA1c (Bld) [Mass fraction] 103 mg/dL [employer] Other Glucose [Mass/Vol] 103 mg/dL Normal [facility] Comment on above: Result Comment: PERF ORMED BY: [place] [address] PATHOLOGIST SPECIAL OFFICER KULWANT GOMEZ M.D. Performed By: #### C BC, TSH3, CMP, A1C WT eA, LIPID #### [facility] [address] HbA1c (Bld) [Mass fraction] 5.2 % Normal 4.3-5.6 [facility] Comment on above: Result Comment: Incr eased risk for diabetes: 5.7 - 6.4 diabetes: >6.4 glycemic control for adults with diabetes: <7.0 Performed By: #### C BC, TSH3, CMP, A1C WTH eA, LIPID #### [facility] [address] Albumin [Mass/volume] in Ser um or PlasmaOrdered By: Becky Romeo on 08-14-2022 Albumin [Mass/Vol] 3.9 g/dL 3.2-5.5 [facility] Basophils Auto (Bld) [#/Vol] Ordered By: Becky Romeo on 08-14-2022 Basophils (Bld) [#/Vol] 0.0 10*3/uL 0.0-0.2 [facility] Basophils/100 WBC Auto (Bld) Ordered By: Becky Romeo on 08-14-2022 Basophils/100 WBC (Bld) 0.6 % . F [facility] Cholesterol [Mass/volume] in Serum or PlasmaOrdered By: Becky Romeo on 08-14-2022 Cholesterol [Mass/Vol] 195 mg/dL Normal 140-2 00 mg/dL [facility] Comment on above: Chol less than 200 m g/dl low riskChol 201-239 mg/dl borderline riskChol 240 mg/dl and greater high risk Cholesterol in LDL Calc [Mas s/Vol]Ordered By: Becky Romeo on 08-14-2022 Cholesterol in LDL [Mass/Vol] 146 mg/dL 0-100 [facility] Comment on above: LDL ATP III CLASSIFI CATIONLDL less than 100 mg/dL OptimalLDL 100-129 mg/dL Near or above optimalLDL 130-159 mg/dL Borderline highLDL 160-189 mg/dL HighLDL greater than 189 mg/dL Very high Cholesterol in VLDL Calc [Ma ss/Vol]Ordered By: Becky Romeo on 08-14-2022 Cholesterol in VLDL [Mass/Vol] 16 mg/dL [facility] Complete Blood Count Auto Di ffon 08-14-2022 Basophils (Bld) [#/Vol] 0.385742552 10*3/uL Normal 0.0-0.2 10*3/uL [employer] Other Basophils/100 WBC (Bld) 0.600 % . % N [email or web address] Other Eosinophils (Bld) [#/Vol] 0.407620557 10*3/uL Normal 0.0-0.45 10*3/uL [employer] Other Eosinophils/100 WBC (Bld) 2.300 % . % [employer] Other Erythrocyte distribution width (RBC) [Ratio] 12.400 % Normal 11.9-15.3 % [employer] Other Hematocrit (Bld) [Volume fraction] 39.700 % Normal 34.0-46.4 % [employer] Other Hemoglobin (Bld) [Mass/Vol] 13.113855 g/dL Normal 11.8-15.4 g/dL [employer] Other Lymphocytes (Bld) [#/Vol] 1.026756047 10*3/uL Normal 1.00-4.8 10*3/uL [employer] Other Lymphocytes/100 WBC (Bld) 22.500 % . % [employer] Other MCH (RBC) [Entitic mass] 30.2000 pg Normal 24.7-34.3 pg [employer] Other MCV (RBC) [Entitic vol] 90.5000 fL Normal 80-100 fL N [email or web address] Other Monocytes (Bld) [#/Vol] 0.691460231 10*3/uL Normal 0.0-0.8 10*3/uL [employer] Other Monocytes/100 WBC (Bld) 6.800 % . % N [email or web address] Other Neutrophils (Bld) [#/Vol] 3.585503048 10*3/uL Normal 1.8-7.7 10*3/uL [employer] Other Neutrophils/100 WBC (Bld) 67.800 % . % [employer] Other Platelet mean volume (Bld) [Entitic vol] 9.0000 fL Normal 6.3-10.7 fL [employer] Other WBC (Bld) [#/Vol] 5.539615671 10*3/uL Normal 3.8 -11.6 10*3/uL [employer] Other Complete Blood Count Auto Diff 5.6 10*3/uL Normal 3.8-11.6 10*3/uL [employer] Other Complete Blood Count Auto Diff 33.4 g/dL Normal 32.0-35.0 g/dL [employer] Other Complete Blood Count Auto Diff 0.3 /100{WBC} Normal 0-0.5 /100{WBC} [employer] Other Basophils (Bld) [#/Vol] 0.0 10*3/uL Normal 0.0-0.2 [facility] Comment on above: Result Comment: PERF ORMED BY: [facility] [address] [place] [address] PATHOLOGIST SPECIAL OFFICER KULWANT GOMEZ M.D. Performed By: #### C BC, TSH3, CMP, A1C WTH eA, LIPID #### [facility] [address] Basophils/100 WBC (Bld) 0.6 % Normal . F [facility] Comment on above: Performed By: #### C BC, TSH3, CMP, A1C WTH eA, LIPID #### [facility] [address] [place] [address] [place] Eosinophils (Bld) [#/Vol] 0.1 10*3/uL Normal 0.0-0.45 [facility] Comment on above: Performed By: #### C BC, TSH3, CMP, A1C WTH eA, LIPID #### [facility] [address] [place] [address] [place] Eosinophils/100 WBC (Bld) 2.3 % Normal . [facility] Comment on above: Performed By: #### C BC, TSH3, CMP, A1C WTH eA, LIPID #### [address] Erythrocyte distribution width (RBC) [Ratio] 12.4 % Normal 11.9-15.3 [facility] Comment on above: Performed By: #### C BC, TSH3, CMP, A1C WTH eA, LIPID #### [address] Hematocrit (Bld) [Volume fraction] 39.7 % Normal 34.0-46.4 [facility] Comment on above: Performed By: #### C BC, TSH3, CMP, A1C WTH eA, LIPID #### [place] [address] [place] Hemoglobin (Bld) [Mass/Vol] 13.2 g/dL Normal 11.8-15.4 [facility] Comment on above: Performed By: #### C BC, TSH3, CMP, A1C WTH eA, LIPID #### [place] [address] [place] Lymphocytes (Bld) [#/Vol] 1.3 10*3/uL Normal 1.00-4.8 [facility] Comment on above: Performed By: #### C BC, TSH3, CMP, A1C WTH eA, LIPID #### [place] [address] [place] Lymphocytes/100 WBC (Bld) 22.5 % Normal . [facility] Comment on above: Performed By: #### C BC, TSH3, CMP, A1C WTH eA, LIPID #### [address] MCH (RBC) [Entitic mass] 30.2 pg Normal 24.7-34.3 [facility] Comment on above: Performed By: #### C BC, TSH3, CMP, A1C WTH eA, LIPID #### [address] MCV (RBC) [Entitic vol] 90.5 fL Normal 80-100 F [facility] Comment on above: Performed By: #### C BC, TSH3, CMP, A1C WTH eA, LIPID #### [address] Mean Corpuscular HGB Conc 33.4 g/dL Normal 32.0-35.0 [facility] Comment on above: Performed By: #### C BC, TSH3, CMP, A1C WTH eA, LIPID #### [place] [address] [place] Monocytes (Bld) [#/Vol] 0.4 10*3/uL Normal 0.0-0.8 [facility] Comment on above: Performed By: #### C BC, TSH3, CMP, A1C WTH eA, LIPID #### [place] [address] [place] Monocytes/100 WBC (Bld) 6.8 % Normal . F [facility] Comment on above: Performed By: #### C BC, TSH3, CMP, A1C WTH eA, LIPID #### [place] [address] [place] Neutrophils (Bld) [#/Vol] 3.8 10*3/uL Normal 1.8-7.7 [facility] Comment on above: Performed By: #### C BC, TSH3, CMP, A1C WTH eA, LIPID #### [place] [address] [place] Neutrophils/100 WBC (Bld) 67.8 % Normal . [facility] Comment on above: Performed By: #### C BC, TSH3, CMP, A1C WTH eA, LIPID #### [facility] [address] NRBC% 0.3 /100{WBC} Normal 0-0.5 [facility] Comment on above: Performed By: #### C BC, TSH3, CMP, A1C WTH eA, LIPID #### [facility] [address] Platelet mean volume (Bld) [Entitic vol] 9.0 fL Normal 6.3-10.7 [facility] Comment on above: Performed By: #### C BC, TSH3, CMP, A1C WTH eA, LIPID #### [facility] [address] Platelets (Bld) [#/Vol] 232 10*3/uL Normal 150-450 [facility] Comment on above: Performed By: #### C BC, TSH3, CMP, A1C WTH eA, LIPID #### [address] RBC (Bld) [#/Vol] 4.38 10*6/uL Normal 3.60-5.00 [facility] Comment on above: Performed By: #### C BC, TSH3, CMP, A1C WTH eA, LIPID #### [address] WBC (Bld) [#/Vol] 5.6 10*3/uL Normal 3.8-11.6 [facility] Comment on above: Performed By: #### C BC, TSH3, CMP, A1C WTH eA, LIPID #### [address] Comprehensive Metabolic Pane amandeep 08-14-2022 Albumin [Mass/Vol] 3.242716 g/dL Normal 3.2-5.5 g/dL [facility] [employer] Other Bilirubin [Mass/Vol] 0.0493437 mg/dL Normal 0.3- 1.2 mg/dL [employer] Other Calcium [Mass/Vol] 9.2338184 mg/dL Normal 8.2-10 .2 mg/dL [employer] Other CO2 [Moles/Vol] 23.73759697 mmol/L Normal 22.0-3 0.0 mmol/L [employer] Other Creatinine [Mass/Vol] 0.58527277 mg/dL Normal 0. 44-1.03 mg/dL [employer] Other Potassium [Moles/Vol] 3.14208322 mmol/L Normal 3 .5-5.1 mmol/L [employer] Other Protein [Mass/Vol] 6.650418 g/dL Normal 6.1-7.9 g/dL [facility] [employer] Other Comprehensive Metabolic Panel > 60 [employer] Other Comprehensive Metabolic Panel 2.7 g/dL [employer] Other Albumin [Mass/Vol] 3.9 g/dL Normal 3.2-5.5 [facility] Comment on above: Performed By: #### C BC, TSH3, CMP, A1C WTH eA, LIPID #### [facility] [address] [place] [id number] [place] Albumin/Globulin [Mass ratio] 1.4 {ratio} Normal [facility] Comment on above: Performed By: #### C BC, TSH3, CMP, A1C WTH eA, LIPID #### [facility] [address] [place] [address] [place] ALP [Catalytic activity/Vol] 69 U/L Normal 32-92 [facility] Comment on above: Performed By: #### C BC, TSH3, CMP, A1C WTH eA, LIPID #### [facility] [address] [place] [address] [place] ALT [Catalytic activity/Vol] 34 U/L Normal 10-60 [employer] Other Comment on above: Performed By: #### C BC, TSH3, CMP, A1C WTH eA, LIPID #### [facility] [address] Anion gap [Moles/Vol] 9.7 mmol/L Normal 6.0-15.0 [facility] Comment on above: Performed By: #### C BC, TSH3, CMP, A1C WTH eA, LIPID #### [facility] [address] AST [Catalytic activity/Vol] 30 U/L Normal 10-42 [facility] Comment on above: Performed By: #### C BC, TSH3, CMP, A1C WTH eA, LIPID #### [facility] [address] Bilirubin [Mass/Vol] 0.7 mg/dL Normal 0.3-1.2 [facility] Comment on above: Performed By: #### C BC, TSH3, CMP, A1C WTH eA, LIPID #### [facility] [address] Calcium [Mass/Vol] 9.2 mg/dL Normal 8.2-10.2 [facility] Comment on above: Performed By: #### C BC, TSH3, CMP, A1C WTH eA, LIPID #### [facility] [address] Chloride [Moles/Vol] 108 mmol/L Normal 95-114 [facility] Comment on above: Performed By: #### C BC, TSH3, CMP, A1C WTH eA, LIPID #### [facility] [address] CO2 [Moles/Vol] 23.1 mmol/L Normal 22.0-30.0 [facility] Comment on above: Performed By: #### C BC, TSH3, CMP, A1C WTH eA, LIPID #### [address] Creatinine [Mass/Vol] 0.75 mg/dL Normal 0.44-1.03 [facility] Comment on above: Performed By: #### C BC, TSH3, CMP, A1C WTH eA, LIPID #### [facility] [address] [place] [address] [place] Estimated GFR ( Queenie > 60 [facility] Comment on above: Result Comment: GFR estimated reference range: According to KDOQI guidelines, <60 ml/min/1.73m2 is sufficient to diagnose a patient with chronic kidney disease. Performed By: #### C BC, TSH3, CMP, A1C WTH eA, LIPID #### [facility] [address] [place] [address] [place] Estimated GFR (Non- Am > 60 Normal [facility] Comment on above: Performed By: #### C BC, TSH3, CMP, A1C WTH eA, LIPID #### [facility] [address] Globulin (S) [Mass/Vol] 2.7 g/dL Normal [facility] Comment on above: Performed By: #### C BC, TSH3, CMP, A1C WTH eA, LIPID #### [facility] [address] Glucose [Mass/Vol] 87 mg/dL Normal 70-100 [facility] Comment on above: Result Comment: [place] Glucose Reference Range is dependent on time and content of last meal. Glucose of more than 200 mg/dL in a nonstressed, ambulatory subject supports the diagnosis of Diabetes Mellitus. ADA recommended reference range Performed By: #### C BC, TSH3, CMP, A1C WTH eA, LIPID #### [facility] [address] [place] [address] [place] Potassium [Moles/Vol] 3.8 mmol/L Normal 3.5-5.1 [facility] Comment on above: Performed By: #### C BC, TSH3, CMP, A1C WTH eA, LIPID #### [facility] [address] [place] [address] [place] Protein [Mass/Vol] 6.6 g/dL Normal 6.1-7.9 [facility] Comment on above: Performed By: #### C BC, TSH3, CMP, A1C WTH eA, LIPID #### [facility] [address] [place] [address] [place] Sodium [Moles/Vol] 137 mmol/L Normal 136-146 [facility] Comment on above: Performed By: #### C BC, TSH3, CMP, A1C WT eA, LIPID #### [facility] [address] [place] [address] [place] Urea nitrogen [Mass/Vol] 5 mg/dL Low 9-23 [facility] Comment on above: Performed By: #### C BC, TSH3, CMP, A1C WT eA, LIPID #### [facility] [address] Creatinine and Glomerular fi ltration rate.predicted panel (S/P/Bld)Ordered By: Becky Romeo on 08-14-2022 Creatinine [Mass/Vol] 0.75 mg/dL 0.44-1.03 [facility] Eosinophils Auto (Bld) [#/Vo l]Ordered By: Becky Romeo on 08-14-2022 Eosinophils (Bld) [#/Vol] 0.1 10*3/uL 0.0-0.45 [facility] Eosinophils/100 WBC Auto (Bl d)Ordered By: Becky Romeo on 08-14-2022 Eosinophils/100 WBC (Bld) 2.3 % . [facility] Erythrocyte distribution wid th Auto (RBC) [Ratio]Ordered By: Becky Romeo on 08-14-2022 Erythrocyte distribution width (RBC) [Ratio] 12.4 % 11.9-15.3 [facility] Erythrocytes [#/volume] in B lood by Automated countOrdered By: Becky Romeo on 08-14-2022 RBC (Bld) [#/Vol] 4.38 10*6/uL Normal 3.60-5.00 [facility] Estimated glomerular filtrat ion rate (GFR) non- AmericanOrdered By: Becky Romeo on 08-14-2022 GFR/1.73 sq M.predicted among non-blacks MDRD (S/P/Bld) [Vol rate/Area] > 60 mL/Min [facility] Globulin Calc (S) [Mass/Vol] Ordered By: Becky Romeo on 08-14-2022 Globulin (S) [Mass/Vol] 2.7 g/dL [facility] Hematocrit Auto (Bld) [Volum e fraction]Ordered By: Becky Ousmane on 08-14-2022 Hematocrit (Bld) [Volume fraction] 39.7 % 34.0-46.4 [facility] Hemoglobin [Mass/volume] in BloodOrdered By: Becky Ousmane on 08-14-2022 Hemoglobin (Bld) [Mass/Vol] 13.2 g/dL 11.8-15.4 [facility] Leukocytes [#/volume] correc kalyani for nucleated erythrocytes in Blood by Automated counOrdered By: Becky Romeo on 08-14-2022 WBC corrected for nucl RBC Auto (Bld) [#/Vol] 5.6 10*3/uL 3.8-11.6 [facility] Lipid Panelon 08-14-2022 Cholesterol in LDL Elph Qn 146 mg/dL High 0-100 mg/dL [facility] [employer] Other Lipid Panel 84 mg/dL Normal 35-149 mg/dL [facility] [employer] Other Lipid Panel 16 mg/dL [facility] [employer] Other Cholesterol [Mass/Vol] 195 mg/dL Normal 140-200 [facility] Comment on above: Result Comment: Chol less than 200 mg/dl low risk Chol 201-239 mg/dl borderline risk Chol 240 mg/dl and greater high risk Performed By: #### C BC, TSH3, CMP, A1C WT eA, LIPID #### [facility] [address] [place] [id number] [place] Cholesterol in HDL [Mass/Vol] 32 mg/dL Low 35-85 [facility] Comment on above: Result Comment: HDL CHOL ATP-III CLASSIFICATION Cardiovascular Risk HDL > or equal to 60 mg/dL LOW HDL < 40 mg/dL HIGH Performed By: #### C BC, TSH3, CMP, A1C WT eA, LIPID #### [facility] [address] [place] [address] [place] Cholesterol.total/Vero sterol in HDL [Mass ratio] 6.1 {ratio} Normal <5.0 [facility] Comment on above: Performed By: #### C BC, TSH3, CMP, A1C WT eA, LIPID #### [facility] [address] LDL Cholesterol,Calculated 146 mg/dL High 0-100 [facility] Comment on above: Result Comment: LDL ATP III CLASSIFICATION LDL less than 100 mg/dL Optimal LDL 100-129 mg/dL Near or above optimal LDL 130-159 mg/dL Borderline high LDL 160-189 mg/dL High LDL greater than 189 mg/dL Very high Performed By: #### C BC, TSH3, CMP, A1C WTH eA, LIPID #### [facility] [address] Triglyceride w/Reflex 84 mg/dL Normal 35-149 [facility] Comment on above: Result Comment: TRIG ATP III CLASSIFICATION TRIG less than 150 mg/dL Normal TRIG 150-199 mg/dL Borderline high TRIG 200-500 mg/dL High TRIG greater than 500 mg/dL Very high Standard traceable to the Center for Disease Conrtrol and Prevention (CDC) test method. Performed By: #### C BC, TSH3, CMP, A1C WT eA, LIPID #### [facility] [address] VLDL CHOLESTEROL 16 mg/dL Normal [facility] Comment on above: Performed By: #### C BC, TSH3, CMP, A1C WTH eA, LIPID #### [facility] [address] Lymphocytes Auto (Bld) [#/Vo l]Ordered By: Becky Romeo on 08-14-2022 Lymphocytes (Bld) [#/Vol] 1.3 10*3/uL 1.00-4.8 [facility] Lymphocytes/100 WBC Auto (Bl d)Ordered By: Becky Romeo on 08-14-2022 Lymphocytes/100 WBC (Bld) 22.5 % . [facility] MCH Auto (RBC) [Entitic mass ]Ordered By: Becky Romeo on 08-14-2022 MCH (RBC) [Entitic mass] 30.2 pg 24.7-34.3 [facility] MCHC Auto (RBC) [Mass/Vol]Or dered By: Becky Romeo on 08-14-2022 MCHC (RBC) [Mass/Vol] 33.4 g/dL 32.0-35.0 [facility] MCV Auto (RBC) [Entitic vol] Ordered By: Becky Romeo on 08-14-2022 MCV (RBC) [Entitic vol] 90.5 fL 80-100 [facility] Monocytes Auto (Bld) [#/Vol] Ordered By: Becky Romeo on 08-14-2022 Monocytes (Bld) [#/Vol] 0.4 10*3/uL 0.0-0.8 [facility] Monocytes/100 WBC Auto (Bld) Ordered By: Becky Romeo on 08-14-2022 Monocytes/100 WBC (Bld) 6.8 % . [facility] Neutrophils Auto (Bld) [#/Vo l]Ordered By: Becky Romeo on 08-14-2022 Neutrophils (Bld) [#/Vol] 3.8 10*3/uL 1.8-7.7 [facility] Neutrophils/100 WBC Auto (Bl d)Ordered By: Becky Romeo on 08-14-2022 Neutrophils/100 WBC (Bld) 67.8 % . [facility] No Panel InformationOrdered By: Becky Romeo on 08-14-2022 Estimated GFR () > 60 mL/Min [facility] Comment on above: GFR estimated refere nce range: According to KDOQI guidelines, <60 ml/min/1.73m2 is sufficient to diagnose a patient with chronic kidney disease. Pharmacy Creatinine Clearance (Chem N/A [facility] Nucleated erythrocytes [Pres ence] in Blood by Automated countOrdered By: Becky Romeo on 08-14-2022 Nucleated RBC Auto Ql (Bld) 0.3 /100{WBC} 0-0.5 [facility] Platelet mean volume Auto (B ld) [Entitic vol]Ordered By: Becky Romeo on 08-14-2022 Platelet mean volume (Bld) [Entitic vol] 9.0 fL 6.3-10.7 [facility] Platelets [#/volume] in Bloo d by Automated countOrdered By: Becky Romeo on 08-14-2022 Platelets (Bld) [#/Vol] 232 10*3/uL Normal 150- 450 10*3/uL [facility] Protein [Mass/volume] in Ser um or PlasmaOrdered By: Becky Romeo on 08-14-2022 Protein [Mass/Vol] 6.6 g/dL 6.1-7.9 [facility] Serum or plasma alanine kinsey otransferase measurement without P-5'-P (enzymatic activiOrdered By: Becky Romeo on 08-14-2022 ALT No additional P-5'-P [Catalytic activity/Vol] 34 U/L 10-60 [facility] Serum or plasma albumin/glob ulin mass ratioOrdered By: Becky Romeo on 08-14-2022 Albumin/Globulin [Mass ratio] 1.4 {ratio} [facility] Serum or plasma alkaline jean claude sphatase measurement (enzymatic activity/volume)Ordered By: Becky Romeo on 08-14-2022 ALP [Catalytic activity/Vol] 69 U/L Normal 32-92 U/L [facility] Serum or plasma anion gap de terminationOrdered By: Becky Romeo on 08-14-2022 Anion gap [Moles/Vol] 9.7 mmol/L 6.0-15.0 [facility] Serum or plasma aspartate am inotransferase measurement (enzymatic activity/volume)Ordered By: Becky Romeo on 08-14-2022 AST [Catalytic activity/Vol] 30 U/L Normal 10-42 U/L [facility] Serum or plasma calcium daily urement (mass/volume)Ordered By: Becky Romeo on 08-14-2022 Calcium [Mass/Vol] 9.2 mg/dL 8.2-10.2 [facility] Serum or plasma chloride julisa surement (moles/volume)Ordered By: Becky Romeo on 08-14-2022 Chloride [Moles/Vol] 108 mmol/L Normal 95-114 mmol/L [facility] Serum or plasma glucose daily urement (mass/volume)Ordered By: Becky Romeo on 08-14-2022 Glucose [Mass/Vol] 87 mg/dL Normal 70-100 mg/dL [facility] Comment on above: ADA recommended refe rence rangeRandom Glucose Reference Range is dependent on time and content of last meal. Glucose of more than 200 mg/dL in a nonstressed, ambulatory subject supports the diagnosis of Diabetes Mellitus. Serum or plasma high density lipoprotein (HDL) cholesterol measurementOrdered By: Becky Romeo on 08-14-2022 Cholesterol in HDL [Mass/Vol] 32 mg/dL Low 35-85 mg/dL [facility] Comment on above: HDL CHOL ATP-III CLA SSIFICATION Cardiovascular RiskHDL > or equal to 60 mg/dL LOWHDL < 40 mg/dL HIGH Serum or plasma potassium me asurement (moles/volume)Ordered By: Becky Romeo on 08-14-2022 Potassium [Moles/Vol] 3.8 mmol/L 3.5-5.1 [facility] Serum or plasma sodium measu rement (moles/volume)Ordered By: Becky Romeo on 08-14-2022 Sodium [Moles/Vol] 137 mmol/L Normal 136-146 mmol/L [facility] Serum or plasma total biliru bin measurement (mass/volume)Ordered By: Becky Romeo on 08-14-2022 Bilirubin [Mass/Vol] 0.7 mg/dL 0.3-1.2 [facility] Serum or plasma total carbon dioxide measurement (moles/volume)Ordered By: Becky Romeo on 08-14-2022 CO2 [Moles/Vol] 23.1 mmol/L 22.0-30.0 [facility] Serum or plasma total choles terol/high density lipoprotein (HDL) cholesterol mass ratOrdered By: Becky Romeo on 08-14-2022 Cholesterol.total/Vero sterol in HDL [Mass ratio] 6.1 {ratio} <5.0 [facility] Serum or plasma urea nitroge n measurement (mass/volume)Ordered By: Becky Romeo on 08-14-2022 Urea nitrogen [Mass/Vol] 5 mg/dL Low 9-23 mg/dL [facility] TSH DL <= 0.005 mIU/L QnOrde red By: Becky Ousmane on 08-14-2022 TSH Qn 1.77 m[IU]/L 0.45-5.33 [facility] Thyroid Stimulating Hormoneo n 08-14-2022 TSH Qn 1.77 m[IU]/L Normal 0.45-5.33 [facility] Comment on above: Result Comment: PERF ORMED BY: [facility] [address] [place] [address] PATHOLOGIST SPECIAL OFFICER KULWANT GOMEZ M.D. Performed By: #### C BC, TSH3, CMP, A1C WTH eA, LIPID #### [address] Triglyceride [Mass/volume] i n Serum or PlasmaOrdered By: Becky Romeo on 08-14-2022 Triglyceride [Mass/Vol] 84 mg/dL 35-149 [facility] Comment on above: TRIG ATP III CLASSIF ICATIONTRIG less than 150 mg/dL NormalTRIG 150-199 mg/dL Borderline highTRIG 200-500 mg/dL High TRIG greater than 500 mg/dL Very highStandard traceable to the Center for Disease Conrtrol and Prevention (CDC) test method. WBC Auto (Bld) [#/Vol]Ordere d By: Becky Romeo on 08-14-2022 WBC (Bld) [#/Vol] 5.6 10*3/uL 3.8-11.6 [facility] XR chest 2V*on 08-13-2022 XR chest 2V* [facility] [address] [address] [place] [address] XRay Report Signed Patient: Edwige Sierra MR#: [id number] : 2000 Acct:[id number] Age/Sex: 22 / F ADM Date: 08/13/22 Loc: [facility] Room: Type: [facility] Attending Dr: Becky Romeo DO Copies [...] Misbah Mast M.D.08/13/2022 3:23 PM Dictation Location: [facility]-- Transcribed By: [facility] 08/13/22 152 Dictated By: Misbah Mast DO 08/13/22 152 Signed By: 08/13/22 152 [facility] XR chest 2V* [facility] [employer] Other XR chest 2V* [facility] [employer] Other XR chest 2V* [address] [place] [address] [employer] Other XR chest 2V* [place] [address] [facility] [employer] Other XR chest 2V* XRay Report [employer] Other XR chest 2V* Signed [employer] Other XR chest 2V* Patient: Edwige Sierra MR#: [id number] [place] [employer] Other XR chest 2V* [id number] [employer] Other XR chest 2V* : 2000 Acct:[id number] [employer] Other XR chest 2V* Age/Sex: 22 / F ADM Date: 08/13/22 [employer] Other XR chest 2V* Loc: [facility] Room: Type : [facility] [employer] Other XR chest 2V* Attending Dr: Diane Romeo DO [employer] Other XR chest 2V* Copies to: Becky Romeo, DO [employer] Other XR chest 2V* Ordering Provider: Becky Romeo, DO [employer] Other XR chest 2V* Date of Service: 08/13/22 [employer] Other XR chest 2V* XR/XR chest 2V*: Cough, unspecified type [employer] Other XR chest 2V* Plain film chest2 view [employer] Other XR chest 2V* HISTORY:Productive cough. Wheezing. [employer] Other XR chest 2V* COMPARISON:None [facility] [employer] Other XR chest 2V* FINDINGS: The cardiac, mediastinal and hilar silhouettes are within normal limits. No acute lung [employer] Other XR chest 2V* process, pleural effusion or pneumothorax identified. Bony structures are intact. [employer] Other XR chest 2V* XR/XR chest 2V* [employer] Other XR chest 2V* IMPRESSION: No acute process. [employer] Other XR chest 2V* Impression dictated by: Misbah Mast M.D.08/13/2022 3:23 PM [employer] Other XR chest 2V* Dictation Location: [place] [address] [employer] Other XR chest 2V* Transcribed By: DOMINIQUE 08/13/22 [facility] [employer] Other XR chest 2V* Dictated By: Misbah Mast DO 08/13/22 1522 [employer] Other XR chest 2V* Signed By: [employer] Other XR chest 2V* 08/13/22 1523 [employer] Other Quick Strepon 02-08-2022 S. pyogenes Org specific cx Ql (Throat) Positive [employer] Other Quick Strep [employer] Other COVID Quick Testingon 2021 Result Negative [employer] Other COVID + FLU Quick Testingon 07-03-2021 SARS-CoV-2 (COVID-19) RNA THA+probe Ql (Unsp spec) Positive [employer] Other COVID + FLU Quick Testing Negative [employer] Other Q - THINPREP(R) TIS AND HPV MRNA E6/E7 RFL HPV 16/18/45on 06-20-2021 CLINICAL INFORMATION: None given Normal Nor [facility] Specialist Comment on above: Order Comment: [facility] Testing performed at: [employer], [address] [place] [address], [phone], Mail Handlers Supervisor: Ramana Taylor MD Testing performed at: [facility], [address] [place] [address], [phone], Mail Handlers Supervisor: Mani Anderson [facility] Collection Date/Time: [id number] [facility] Results Received Date/Time: [id number] [facility] Reported Date/Time: FASTING: UNKNOWN Result Comment: [[facility] ] Performed By: #### 9 1414 #### [facility] Default [address] [place] [address] COMMENT SEE NOTE Normal [facility] Certified Midwife Comment on above: Order Comment: [facility] Testing performed at: [facility], [address] [place] [address], [address] [place] [address], [phone], Mail Handlers Supervisor: Ramana Taylor MD Testing performed at: [employer], [facility], [address] [place], [address], Mail Handlers Supervisor: Mani Anderson [facility] Collection Date/Time: [facility] Results [...] 9 1414 #### [facility] Default [address] [place] [address] COMMENT: This Pap test has been evaluated with computer assisted technology. Normal [facility] Specialist Comment on above: Order Comment: [facility] Testing performed at: [facility], [address] [place] [address], [address] [place] [address], Mail Handlers Supervisor: Ramana Taylor MD Testing performed at: [facility], [address] [place], [phone], Mail Handlers Supervisor: Mani Anderson [facility] Collection Date/Time: [facility] Results Received Date/Time: [facility] Reported Date/Time: FASTING: UNKNOWN Result Comment: [QBU ] Performed By: #### 9 1414 #### [facility] Default [address] [place], [place] [id number] REACTOR KETTLE OPERATOR: SEE NOTE Normal See Note: [facility] Comment on above: Order Comment: [facility] performed at: [facility], [address] [place] [address], [address] [place] [address], [address] [place] [address], Mail Handlers Supervisor: Ramana Taylor MD Testing performed at: [employer], [facility], [address] [place], [phone], Mail Handlers Supervisor: Mani Anderson [facility] Collection Date/Time: [facility] Results Received Date/Time: [facility] Reported Date/Time: FASTING: UNKNOWN Result Comment: Refe prema Range: ZL, CT(ASCP) CT screening location: [place] [address]. [QBU] Performed By: #### 9 1414 #### [facility] Default [address] [place] [address] GENERAL CATEGORIZATION: EPITHELIAL CELL ABNORMALITY Abnormal [facility] Comment on above: Order Comment: [facility] Testing performed at: [facility], [address] [place] [address], [address] [place] [address], [phone], Mail Handlers Supervisor: Ramana Taylor MD Testing performed at: [facility], [address] [place] [address], [phone], Mail Handlers Supervisor: Mani Anderson [facility] Collection Date/Time: [facility] Results Received Date/Time: [facility] Reported Date/Time: FASTING: UNKNOWN Result Comment: [QBU ] Performed By: #### 9 1414 #### [facility] Default [address] [place] [address] HPV mRNA E6/E7 Detected Abnormal Not Detected [facility] Comment on above: Order Comment: [facility] Testing performed at: [facility], [address] [place] [address], [address] [place] [address], [phone], Mail Handlers Supervisor: Ramana Taylor MD Testing performed at: [employer] [facility], [address] [place] [address], [phone], Mail Handlers Supervisor: Mani Anderson [facility] Collection Date/Time: [facility] Results Received Date/Time: [facility] Reported Date/Time: FASTING: UNKNOWN Result Comment: Meth odology: Orthopedic Physical Therapist-Mediated Amplification This assay detects E6/E7 viral messenger RNA (mRNA) from 14 high-risk HPV types (16,18,31,33,35,39,45,51,52,56,58,59,66,68). The analytical performance characteristics of this assay have been determined by [employer]. The modifications have not been cleared or approved by the FDA. This assay has been validated pursuant to the CLIA regulations and is used for clinical purposes. For additional information, please refer to http://education.Rev/faq/GFD618v1 (This link if provided for information/ educational purposes only.) [O6K] Performed By: #### 9 1414 #### [facility] Default [address] [place] [address] INTERPRETATION/RESULT: Atypical Squamous Cells of Undetermined Significance (ASC-US) Abnormal [facility] Specialist Comment on above: Order Comment: [facility] Testing performed at: [employer], [address] [place] [address], Mail Handlers Supervisor: Ramana Taylor MD Testing performed at: [facility], [address] [place] [address], [address] [place] [address], Mail Handlers Supervisor: Mani Anderson [facility] Collection Date/Time: [facility] Results Received Date/Time: [facility] Reported Date/Time: FASTING: UNKNOWN Result Comment: [QBU ] Performed By: #### 9 1414 #### [facility] [address] [place] [address] LMP: None given Normal [facility] Comment on above: Order Comment: [facility] Testing performed at: [facility], [address] [place] [address], [address] [place] [address], [address] [place] [address], Mail Handlers Supervisor: Ramana Taylor MD Testing performed at: [facility], [address] [place] [address], [phone], Mail Handlers Supervisor: Mani Anderson [facility] Collection Date/Time: [facility] Results Received Date/Time: [facility] Reported Date/Time: FASTING: UNKNOWN Result Comment: [QBU ] Performed By: #### 9 1414 #### [facility] Default [address] [place] [address] PATHOLOGIST: SEE NOTE Normal [facility] Certified Midwife Comment on above: Order Comment: [facility] Testing performed at: [employer], [facility], [address] [place] [address], [address] [place] [address], [address] [place] [address], Mail Handlers Supervisor: Ramana Taylor MD Testing performed at: [facility], [address] [place], [place], [address] [place] [address], Mail Handlers Supervisor: Mani Anderson [facility] Collection Date/Time: [facility] Results Received Date/Time: [facility] Reported Date/Time: FASTING: UNKNOWN Result Comment: Vance Anderson MD, PhD, M.B.A. Board Certified in Anatomic and Clinical Pathology Board Certified in Cytopathology (electronic signature) For questions regarding this report call Anatomic Pathology at [phone] [QBU] Performed By: #### 9 1414 #### [facility] [address] [place] [address] PREV. BX: None given Normal [facility] Comment on above: Order Comment: [facility] Testing performed at: [employer], [facility], [address] [place] [address], [address] [place] [address], [address] [place] [address], Mail Handlers Supervisor: Ramana Taylor MD Testing performed at: [facility], [address] [place] [address], [address] [place] [address], Mail Handlers Supervisor: Mani Anderson [facility] Collection Date/Time: [facility] Results Received Date/Time: [facility] Reported Date/Time: FASTING: UNKNOWN Result Comment: [QBU ] Performed By: #### 9 1414 #### [facility] [address] [place] [address] PREV. PAP: None given Normal [facility] Comment on above: Order Comment: [facility] performed at: [employer], [facility], [address] [place] [address], [address] [place] [address], [phone], Mail Handlers Supervisor: Ramana Taylor MD Testing performed at: [facility], [address] [place], [place], [address] [place] [address], Mail Handlers Supervisor: Mani Anderson [facility] Collection Date/Time: [facility] Results Received Date/Time: [facility] Reported Date/Time: FASTING: UNKNOWN Result Comment: [QBU ] Performed By: #### 9 1414 #### [facility] Default [address] [place] [address] SOURCE: None given Normal [place] Certified Midwife Comment on above: Order Comment: [facility] Testing performed at: [employer], [address] [place] [address], [address] [place] [address], [address] [place] [address], Mail Handlers Supervisor: Ramana Taylor MD [facility] performed at: [facility], [address] [place] [address], [address] [place] [address], Mail Handlers Supervisor: Mani Anderson Quest Collection Date/Time: [facility] Results Received Date/Time: [facility] Reported Date/Time: FASTING: UNKNOWN Result Comment: [QBU ] Performed By: #### 9 1414 #### [facility] [address] [place] [address] STATEMENT OF ADEQUACY: SEE NOTE Normal No rthern [place] Certified Midwife Comment on above: Order Comment: [facility] Testing performed at: [facility], [address] [place] [address], [address] [place] [address], [address] [place] [address], Mail Handlers Supervisor: Ramana Taylor MD [facility] performed at: [facility], [address] [place] [address], [address] [place] [address], Mail Handlers Supervisor: Mani Anderson Quest Collection Date/Time: [id number] [facility] Results Received Date/Time: [facility] Reported Date/Time: FASTING: UNKNOWN Result Comment: Sati sfactory for evaluation. Endocervical/transformation zone component present. [QBU] Performed By: #### 9 1414 #### [facility] [address] [place] [address] XR Finger Lefton 06-20-2021 XR Finger Left FINDINGS: PIP soft tissue swelling. Minimally distracted volar plate fracture, middle phalangeal base. Minimal arthritis. IMPRESSION: Minimally distracted 4th PIP joint volar plate fracture Report reported and signed by Hubert Lewis on 06/20/2021 1443 Normal [facility] Certified Midwife PREG HCG QUALon 05-19-2020 , QUAL Negative Normal NEGATIVE [facility] Comment on above: Performed By: #### P REG #### [facility] [address] [place], [place] [address] Liam Ayala COVID-19 PCRon 05-14-2020 SARS-CoV-2 (COVID-19) RNA THA+probe Ql (Unsp spec) Not detected Normal Not Detected [facility] Comment on above: Result Comment: This nucleic acid amplification test was developed and its performance characteristics determined by [facility]. Nucleic acid amplification tests include PCR and [...] Performed By: #### C VDSTAT, CVDPCR #### [facility] [address] [place], [place] [address] Liam Ayala PRIORITY COVID PROCESSINGon 05-14-2020 Comment Comment Normal [facility] Comment on above: Result Comment: Rece ived Performed By: #### C VDSTAT, CVDPCR #### [facility] [address] [place], [place] [address] Liam Ayala Vital Signs Date Time Vital Sign Value Performing Clinician Facility 02-14-2025 17:17-0400 Body height 167.6 cm Jovita Salas CNM Work Phone: [facility] 02-14-2025 17:17-0400 Body mass index (BMI) [Ratio] 38.9 kg/m2 Jovita Rosarioo CNM Work Phone: [facility] 02-14-2025 17:17-0400 Body weight 109.32 kg Jovita Rosarioo CNM Work Phone: [facility] 02-14-2025 17:17-0400 Diastolic blood pressure 78 mm[Hg] Jovita Rosarioo CNM Work Phone: [facility] 02-14-2025 17:17-0400 Heart rate 78 /min Jovita Rosarioo CNM Work Phone: [facility] 02-14-2025 17:17-0400 Respiratory rate 18 /min Jovita Rosarioo CNM Work Phone: [facility] 02-14-2025 17:17-0400 SaO2% (BldA) [Mass fraction] 98 % Jovita Rosarioo CNM Work Phone: [facility] 02-14-2025 17:17-0400 Systolic blood pressure 130 mm[Hg] Jovita Rosarioo CNM Work Phone: [facility] 01-11-2025 09:15-0400 Body height 170.18 cm Becky Pierrefariba DO Work Phone: [facility] 01-11-2025 09:15-0400 Body mass index (BMI) [Ratio] 37.6 kg/m2 Becky Pierrefariba DO Work Phone: [facility] 01-11-2025 09:15-0400 Body weight 109.1 kg Becky Pierrenickjulia DO Work Phone: [facility] 12-03-2024 14:00-0400 Heart rate 90 /min Ness Montez [employer] Work Phone: [facility] 12-03-2024 13:44-0400 Body height 167.6 cm Ness Montez [employer] Work Phone: [facility] 12-03-2024 13:44-0400 Body mass index (BMI) [Ratio] 39.38 kg/m2 Ness Montez [employer] Work Phone: [facility] 12-03-2024 13:44-0400 Body weight 110.68 kg Ness Montez [employer] Work Phone: [facility] 12-03-2024 13:44-0400 Diastolic blood pressure 82 mm[Hg] Ness Ohs [employer] Work Phone: [facility] 12-03-2024 13:44-0400 Respiratory rate 18 /min Ness Ohs [employer] Work Phone: [facility] 12-03-2024 13:44-0400 SaO2% (BldA) [Mass fraction] 97 % Ness Montez [employer] Work Phone: [facility] 12-03-2024 13:44-0400 Systolic blood pressure 134 mm[Hg] Ness Montez [employer] Work Phone: [facility] 11-24-2024 13:12-0400 SaO2% (BldA) [Mass fraction] 94 % Becky Ousmane DO Work Phone: [facility] [employer] 11-24-2024 13:00-0400 Body temperature 98.01 [degF] Becky Ousmane DO Work Phone: [facility] 11-24-2024 13:00-0400 Diastolic blood pressure 76 mm[Hg] Becky [facility]usmane DO Work Phone: [facility] [employer] 11-24-2024 13:00-0400 Heart rate 89 /min Becky Romeo DO Work Phone: [facility] 11-24-2024 13:00-0400 Respiratory rate 16 /min Becky Ousmane DO Work Phone: [facility] [employer] 11-24-2024 13:00-0400 Systolic blood pressure 117 mm[Hg] Becky Romeo DO Work Phone: [facility] 08-10-2024 16:06-0500 Body height 167.6 cm Jovita ROBERTS Work Phone: [facility] 08-10-2024 16:06-0500 Body mass index (BMI) [Ratio] 39.64 kg/m2 Jovita Salas CN Work Phone: [facility] 08-10-2024 16:06-0500 Body weight 111.4 kg Jovita Salsa CN Work Phone: [facility] 08-10-2024 16:06-0500 Diastolic blood pressure 70 mm[Hg] Jovita Salas [facility] Work Phone: [facility] 08-10-2024 16:06-0500 Systolic blood pressure 118 mm[Hg] Jovita Salas [facility] Work Phone: [facility] 08-05-2024 10:19-0500 Body temperature 98.4 [degF] Priyank Gaspar MD Work Phone: [facility] 08-05-2024 10:19-0500 Diastolic blood pressure 56 mm[Hg] Priyank Gaspar MD Work Phone: [facility] 08-05-2024 10:19-0500 Heart rate 114 /min Priyank Gaspar MD Work Phone: [facility] 08-05-2024 10:19-0500 Respiratory rate 18 /min Priyank Gaspar MD Work Phone: [facility] 08-05-2024 10:19-0500 SaO2% (BldA) [Mass fraction] 97 % Priyank Gaspar MD [facility] 08-05-2024 10:19-0500 Systolic blood pressure 97 mm[Hg] Priyank Gaspar MD Work Phone: [employer] 07-20-2024 18:12-0500 SaO2% (BldA) [Mass fraction] 97 % Yoli Lal MD Work Phone: [facility] [employer] 07-20-2024 15:37-0500 Body height 170.2 cm Yoli Lal MD Work Phone: [facility] [employer] 07-20-2024 15:37-0500 Body mass index (BMI) [Ratio] 37.59 kg/m2 Yoli Lal MD Work Phone: [facility] [employer] 07-20-2024 15:37-0500 Body temperature 98.29 [degF] Yoli Lal MD Work Phone: [facility] [employer] 07-20-2024 15:37-0500 Body weight 108.86 kg Yoli Lal MD Work Phone: [facility] [employer] 07-20-2024 15:37-0500 Diastolic blood pressure 76 mm[Hg] Yoli Lal MD Work Phone: [employer] 07-20-2024 15:37-0500 Heart rate 100 /min Yoli Lal MD Work Phone: [employer] 07-20-2024 15:37-0500 Respiratory rate 18 /min Yoli Lal MD Work Phone: [facility] [employer] 07-20-2024 15:37-0500 Systolic blood pressure 110 mm[Hg] Yoli Lal MD Work Phone: [facility] [employer] 05-24-2024 08:46-0500 Body height 167.6 cm Destinee Britton MD Work Phone: [facility] 05-24-2024 08:46-0500 Body mass index (BMI) [Ratio] 39 kg/m2 Destinee Britton MD Work Phone: [facility] 05-24-2024 08:46-0500 Body weight 109.59 kg Destinee Britton MD Work Phone: [facility] 05-24-2024 08:46-0500 Diastolic blood pressure 74 mm[Hg] Destinee Britton MD Work Phone: [facility] 05-24-2024 08:46-0500 Heart rate 91 /min Destinee Britton MD Work Phone: [facility] 05-24-2024 08:46-0500 Respiratory rate 18 /min Destinee Britton MD Work Phone: [facility] 05-24-2024 08:46-0500 SaO2% (BldA) [Mass fraction] 97 % Destinee Britton MD Work Phone: [facility] 05-24-2024 08:46-0500 Systolic blood pressure 114 mm[Hg] Destinee Britton MD Work Phone: [facility] 05-20-2024 15:22-0500 Body height 167.6 cm Destinee Britton MD Work Phone: [facility] 05-20-2024 15:22-0500 Body mass index (BMI) [Ratio] 39.96 kg/m2 Destinee Britton MD Work Phone: [facility] 05-20-2024 15:22-0500 Body weight 112.31 kg Destinee Britton MD Work Phone: [facility] 05-20-2024 15:22-0500 Diastolic blood pressure 72 mm[Hg] Destinee Britton MD Work Phone: [facility] 05-20-2024 15:22-0500 Heart rate 116 /min Destinee Britton MD Work Phone: [facility] 05-20-2024 15:22-0500 Respiratory rate 18 /min Destinee Britton MD Work Phone: [facility] 05-20-2024 15:22-0500 SaO2% (BldA) [Mass fraction] 99 % Destinee Britton MD Work Phone: [facility] 05-20-2024 15:22-0500 Systolic blood pressure 134 mm[Hg] Destinee Britton MD Work Phone: [facility] 05-10-2024 13:59-0500 Body mass index (BMI) [Ratio] 39.87 kg/m2 Jovita Salas [facility] Work Phone: [facility] 05-10-2024 13:59-0500 Body weight 112.04 kg Jovita Salas [facility] Work Phone: [facility] 11-11-2023 14:36-0400 Diastolic blood pressure 76 mm[Hg] [facility] 11-11-2023 14:36-0400 Heart rate 92 /min [facility] 11-11-2023 14:36-0400 Respiratory rate 20 /min [facility] 11-11-2023 14:36-0400 Systolic blood pressure 104 mm[Hg] [facility] 10-10-2023 11:51-0400 Body height 170.18 cm [facility] 10-10-2023 11:51-0400 Body mass index (BMI) [Ratio] 38.2 kg/m2 [facility] 10-10-2023 11:51-0400 Body weight 110.67 kg [facility] 10-10-2023 11:51-0400 Diastolic blood pressure 81 mm[Hg] [facility] 10-10-2023 11:51-0400 Heart rate 78 /min [facility] 10-10-2023 11:51-0400 SaO2% (BldA) [Mass fraction] 96 % [facility] 10-10-2023 11:51-0400 Systolic blood pressure 128 mm[Hg] [facility] 07-09-2023 13:00-0500 Body height 170.18 cm Becky Romeo Other [employer] [facility] [employer] Other 07-09-2023 13:00-0500 Body mass index (BMI) [Ratio] 36.96 kg/m2 Becky Romeo Other [employer] [facility] [employer] Other 07-09-2023 13:00-0500 Body temperature 97.6 [degF] Becky Romeo Other [employer] Other 07-09-2023 13:00-0500 Body weight 107.05 kg Becky Romeo Other [employer] Other 07-09-2023 13:00-0500 Diastolic blood pressure 69 mm[Hg] Becky Romeo Other [employer] Other 07-09-2023 13:00-0500 Respiratory rate 20 /min Becky Romeo Other [employer] Other 07-09-2023 13:00-0500 SaO2% (BldA) [Mass fraction] 97 % Becky Romeo Other [employer] Other 07-09-2023 13:00-0500 Systolic blood pressure 109 mm[Hg] Becky Romeo Other [employer] Other 12-09-2022 11:05-0400 Body height 170.18 cm Lexy Menamond Other [employer] Other 12-09-2022 11:05-0400 Body mass index (BMI) [Ratio] 38.52 kg/m2 Lexy Menamond Other [employer] Other 12-09-2022 11:05-0400 Body temperature 97.8 [degF] Lexy Menamond Other [employer] Other 12-09-2022 11:05-0400 Body weight 111.59 kg Lexy Abena Other [employer] Other 12-09-2022 11:05-0400 Respiratory rate 18 /min Lexy Kraft Other [employer] Other 12-09-2022 11:05-0400 SaO2% (BldA) [Mass fraction] 98 % Lexy Kraft Other [employer] Other 08-12-2022 16:00-0500 Body height 170.18 cm Becky Romeo Other [employer] Other 08-12-2022 16:00-0500 Body mass index (BMI) [Ratio] 39.62 kg/m2 Becky Hernandezernestineyumiko Other [employer] Other 08-12-2022 16:00-0500 Body weight 114.76 kg Becky Romeo Other [employer] Other 08-12-2022 16:00-0500 Diastolic blood pressure 71 mm[Hg] Becky Hernandezernestineyumiko Other [employer] Other 08-12-2022 16:00-0500 Respiratory rate 16 /min Becky Hernandezernestineyumiko Other [employer] Other 08-12-2022 16:00-0500 SaO2% (BldA) [Mass fraction] 98 % Becky Hernandezernestineyumiko Other [employer] Other 08-12-2022 16:00-0500 Systolic blood pressure 107 mm[Hg] Becky Hernandezjulia Other [employer] Other 02-08-2022 12:00-0400 Body height 167.64 cm Joselin Wilkins Other [employer] Other 02-06-2022 18:45-0400 Body height 167.64 cm Lexy Kraft Other [employer] Other 02-06-2022 18:45-0400 Body mass index (BMI) [Ratio] 37.12 kg/m2 Lexy Kraft Other [employer] Other 02-06-2022 18:45-0400 Body temperature 97.3 [degF] Lexy Kraft Other [employer] Other 02-06-2022 18:45-0400 Body weight 104.33 kg Lexy Kraft Other [employer] Other 02-06-2022 18:45-0400 Respiratory rate 18 /min Lexy Kraft Other [employer] Other 02-06-2022 18:45-0400 SaO2% (BldA) [Mass fraction] 97 % Lexy Kraft Other [employer] Other Encounters Encounter Date Encounter Type Care Provider Facility Start: 04-13-2025 End: 04-13-2025 ambulatory [facility] Start: 04-04-2025 End: 04-04-2025 Treatment Delia Kwan PT [facility] Comment on above: Sacrococcygeal disor ders, not elsewhere classified (Primary Dx) Start: 03-29-2025 End: 03-29-2025 Treatment Ryan Barger MEDICAL ACCOUNTANT [facility] Comment on above: Sacrococcygeal disor ders, not elsewhere classified (Primary Dx) Start: 03-29-2025 End: 03-29-2025 Bamboo flowsheet Ryan Barger MEDICAL ACCOUNTANT [facility] Start: 03-29-2025 End: 03-29-2025 Bamboo flowsheet Ryan Israelink MEDICAL ACCOUNTANT [facility] Start: 03-24-2025 End: 03-24-2025 Treatment Ofelia Kelbley MEDICAL ACCOUNTANT [facility] Comment on above: Sacrococcygeal disor ders, not elsewhere classified (Primary Dx) Start: 03-24-2025 End: 03-24-2025 Bamboo flowsheet Ofelia Carrascoy MEDICAL ACCOUNTANT [facility] Start: 03-24-2025 End: 03-24-2025 Bamboo flowsheet Ofelia Blakely MEDICAL ACCOUNTANT [facility] Start: 03-23-2025 End: 03-23-2025 ambulatory [facility] Start: 03-21-2025 End: 03-21-2025 Bamboo flowsheet Ryan Barger MEDICAL ACCOUNTANT [facility] Start: 03-21-2025 End: 03-21-2025 Bamboo flowsheet Ryan Barger MEDICAL ACCOUNTANT [facility] Start: 03-21-2025 End: 03-21-2025 Treatment Ryan Barger MEDICAL ACCOUNTANT [facility] Comment on above: Sacrococcygeal disor ders, not elsewhere classified (Primary Dx) Start: 03-21-2025 End: 03-21-2025 ambulatory Ty Fairbanks MD Facility:[facility] Start: 03-16-2025 End: 03-16-2025 ambulatory NUBIA STEPHENS [facility] Start: 03-15-2025 End: 03-15-2025 Treatment Ryan Barger MEDICAL ACCOUNTANT [facility] Comment on above: Sacrococcygeal disor ders, not elsewhere classified (Primary Dx) Start: 03-15-2025 End: 03-15-2025 Bamboo flowsheet Ryan Israelink MEDICAL ACCOUNTANT [facility] Start: 03-15-2025 End: 03-15-2025 Bamboo flowsheet Ryan Israelink MEDICAL ACCOUNTANT [facility] Start: 03-02-2025 End: 03-02-2025 Treatment Ryandestini Barger MEDICAL ACCOUNTANT [facility] Comment on above: Sacrococcygeal disor ders, not elsewhere classified (Primary Dx) Start: 03-02-2025 End: 03-02-2025 Bamboo flowsheet Ryan Barger MEDICAL ACCOUNTANT [facility] Start: 03-02-2025 End: 03-02-2025 Bamboo flowsheet Ryandestini Barger MEDICAL ACCOUNTANT [facility] Start: 02-28-2025 End: 02-28-2025 Treatment Delia Kwan PT [facility] Comment on above: Sacrococcygeal disor ders, not elsewhere classified (Primary Dx) Start: 02-28-2025 End: 02-28-2025 Bamboo flowsheet Delia Kwan PT [facility] Start: 02-28-2025 End: 02-28-2025 Bamboo flowsheet Delia Kwan PT [facility] Start: 02-23-2025 End: 02-23-2025 ambulatory [facility] Start: 02-21-2025 End: 02-21-2025 ambulatory Ty Fairbanks MD Facility:[facility] Start: 02-15-2025 End: 02-15-2025 ambulatory Kem Costa MEDICAL ACCOUNTANT [facility] Start: 02-15-2025 End: 02-15-2025 Telephone encounter Destinee Britton MD Work Phone: [facility] Comment on above: [...] Start: 02-01-2025 End: 02-01-2025 Treatment Kem Costa MEDICAL ACCOUNTANT [facility] Comment on above: Sacrococcygeal disor ders, not elsewhere classified (Primary Dx) Start: 02-01-2025 End: 02-01-2025 Bamboo flowsheet Kem Costa MEDICAL ACCOUNTANT [facility] Start: 02-01-2025 End: 02-01-2025 Bamboo flowsheet Kem Costa MEDICAL ACCOUNTANT [facility] Start: 01-27-2025 End: 01-27-2025 Treatment Ofelia Blakely MEDICAL ACCOUNTANT [facility] Comment on above: Sacrococcygeal disor ders, not elsewhere classified (Primary Dx) Start: 01-27-2025 End: 01-27-2025 Bamboo flowsheet Ofelia Blakely MEDICAL ACCOUNTANT [facility] Start: 01-27-2025 End: 01-27-2025 Bamboo flowsheet Ofelia Blakely MEDICAL ACCOUNTANT [facility] Start: 01-24-2025 End: 01-25-2025 Evaluation Delia Kwan PT [facility] Comment on above: Sacrococcygeal disor ders, not elsewhere classified (Primary Dx) Start: 01-24-2025 End: 01-24-2025 Bamboo flowsheet Delia Kwan PT [facility] Start: 01-24-2025 End: 01-24-2025 Bamboo flowsheet Delia Kwan PT [facility] Start: 01-20-2025 End: 01-20-2025 ambulatory [facility] Start: 01-11-2025 End: 01-11-2025 ambulatory Becky Romeo DO Work Phone: [facility] Work Phone: Start: 01-11-2025 End: 01-11-2025 Patient encounter procedure Feliz Musa MD -[facility] Work Phone: Start: 01-06-2025 End: 01-06-2025 ambulatory Becky Romeo DO Work Phone: [facility] Work Phone: Start: 01-06-2025 End: 01-06-2025 Patient encounter procedure Mack Akhtar Erasmo DO -[facility] Neurology Work Phone: Start: 01-05-2025 End: 01-05-2025 ambulatory Becky Romeo DO Facility:[facility] Start: 12-27-2024 End: 12-27-2024 ambulatory Ty Fairbanks MD Facility:[facility] Start: 12-16-2024 End: 12-16-2024 ambulatory CHAD Giordano [facility] Start: 12-03-2024 End: 12-03-2024 Telephone encounter Destinee Britton MD Work Phone: [facility] Start: 12-03-2024 End: 12-03-2024 Office outpatient visit 25 minutes Ness Montez NP Work Phone: [facility] Comment on above: Nausea (Primary Dx); Pain of upper abdomen Start: 12-01-2024 Non-patient / Non-visit Lacey [facility] Work Phone: Start: 11-24-2024 End: 11-24-2024 [facility] Comment on above: Acute exacerbation o f chronic low back pain (Primary Dx) Start: 11-11-2024 End: 11-11-2024 ambulatory CHAD Giordano [facility] Start: 10-14-2024 End: 10-14-2024 ambulatory CHAD Giordano [facility] Start: 09-17-2024 End: 09-17-2024 ambulatory NUBIA STEPHENS [facility] Start: 09-16-2024 End: 09-16-2024 ambulatory CHAD Giordano [facility] Start: 09-13-2024 End: 09-13-2024 ambulatory Andcirilo [facility] Start: 08-30-2024 End: 08-30-2024 ambulatory Ty Fairbanks MD Facility:[facility] Start: 08-26-2024 End: 08-26-2024 ambulatory [facility] Start: 08-16-2024 End: 08-16-2024 ambulatory Ty Fairbanks MD Facility:[facility] Start: 08-12-2024 End: 08-12-2024 ambulatory [facility] Start: 08-10-2024 End: 08-10-2024 Office outpatient [...] patient visit Priyank Gaspar MD Work Phone: [facility] Comment on above: Acute exacerbation o f chronic low back pain (Primary Dx) Start: 07-20-2024 End: 07-20-2024 Emergency department patient visit Yoli Lal MD Work Phone: [facility] Comment on above: Strain of lumbar reg ion, initial encounter (Primary Dx); Abnormal computed tomography of lumbar spine Start: 07-15-2024 End: 07-15-2024 ambulatory [facility] Start: 06-25-2024 End: 06-25-2024 ambulatory [facility] Start: 06-02-2024 End: 07-16-2024 Refill Destinee Britton MD Work Phone: [facility] Comment on above: Encounter for initia l prescription of contraceptive pills Start: 05-28-2024 End: 05-28-2024 ambulatory NUBIA STEPHENS [facility] Start: 05-27-2024 End: 05-27-2024 ambulatory CHAD WAYNE [facility] Start: 05-24-2024 End: 05-24-2024 Bamboo flowsheet Destinee [...] Start: 04-22-2024 End: 04-22-2024 ambulatory CHAD WAYNE [facility] Start: 11-11-2023 End: 11-11-2023 ambulatory [facility] Work Phone: Start: 11-11-2023 End: 11-11-2023 Patient encounter procedure [facility] Work Phone: Start: 10-10-2023 End: 10-10-2023 ambulatory [facility] Work Phone: Start: 10-10-2023 End: 10-10-2023 Patient encounter procedure [facility] Work Phone: Start: 07-09-2023 End: 07-09-2023 ambulatory Becky Romeo Other [employer] Other Start: 07-09-2023 Office outpatient vi sit 25 minutes Becky Romeo [facility] Start: 12-11-2022 End: 12-11-2022 ambulatory Becky Romeo Other [employer] Other Start: 12-11-2022 Telephone encounter Becky Romero i [facility] Start: 12-09-2022 Office outpatient vi sit 15 minutes Lexy Kraft [facility] Start: 12-09-2022 End: 12-09-2022 ambulatory PHYSICIAN NO [employer] Other Start: 12-09-2022 End: 12-09-2022 Patient encounter procedure PHYSICIAN NO [facility] Work Phone: Start: 09-27-2022 End: 09-27-2022 ambulatory Becky Romeo Other [employer] Other Start: 09-27-2022 Telephone encounter Becky Romero i [facility] Start: 08-14-2022 End: 08-14-2022 ambulatory Becky Romeo Facility:[facility] Start: 08-14-2022 End: 08-14-2022 ambulatory PHYSICIAN NO [facility] Work Phone: Start: 08-14-2022 End: 08-14-2022 Patient encounter procedure PHYSICIAN NO [facility] [place] Work Phone: Start: 08-13-2022 End: 08-13-2022 ambulatory Becky Romeo Facility:[facility] Start: 08-13-2022 End: 08-13-2022 Patient encounter procedure PHYSICIAN NO [facility] [place] Start: 08-13-2022 End: 08-13-2022 ambulatory PHYSICIAN NO [facility] Work Phone: Start: 08-13-2022 Telephone encounter Becky Romero i [employer] Start: 08-12-2022 End: 08-12-2022 ambulatory Becky Romeo Other [employer] Other Start: 08-12-2022 Encounter for genera l adult medical examination without abnormal findings Becky Romeo [facility] Start: 08-12-2022 Periodic preventive med est patient 18-39 yrs Becky Romeo [facility] Start: 05-20-2022 End: 05-20-2022 ambulatory Becky Romeo Other [employer] Other Start: 05-20-2022 Telephone encounter Becky Rome calderon [facility] Start: 02-08-2022 End: 02-08-2022 ambulatory Becky Romeo Other [employer] Other Start: 02-08-2022 Office outpatient vi sit 15 minutes Joselin Wilkins [facility] Start: 02-08-2022 Telephone encounter Becky Romero i [facility] Start: 02-06-2022 End: 02-06-2022 ambulatory Lexy Kraft Other [employer] Other Start: 02-06-2022 Office outpatient vi sit 15 minutes Lexy Kraft [facility] Start: 07-03-2021 End: 07-03-2021 ambulatory Becky Hernandezernestineyumiko Other [employer] Other Start: 07-03-2021 Office outpatient vi sit 15 minutes Becky Romeo [facility] Start: 05-19-2020 End: 05-19-[address] ROGE THACKER Facility:H1 Start: 05-16-2020 Encounter for other preprocedural examination [facility] Start: 05-13-2020 End: 05-14-2020 ambulatory [facility] Facility:H1 Start: 05-11-2020 End: 05-12-2020 ambulatory [facility] Facility:H1 Start: 05-11-2020 End: 05-12-2020 Encounter for other preprocedural examination [facility] Facility:H1 Start: 03-23-2020 End: 03-24-[address] DESTINEE BRITTON Facility:H1 Start: 02-29-2020 End: 03-01-2020 ambulatory [facility] Facility:H1 Start: 03-30-2019 End: 03-30-2019 Patient encounter procedure Radha Aguilera [facility] Procedures Date Procedure Procedure Detail Performing Clinician Start: 12-03-2024 Urnls dip stick/tabl et rgnt non-auto w/o micrscp Ness Montez [employer] Work Phone: Start: 07-20-2024 Ct lumbar spine [...] EST Office Visit BIANCA RAPP [address] [facility] [place] [address] Jovita Salas, WILLOW [address] [facility], [place] [id number] BIANCA RAPP Start: 04-11-2025 End: 04-11-2025 ambulatory 04/11/2025 5:30 PM EDT Treatment [facility] [address] [place] [address] Delia Kwan, PT [facility] Start: 04-04-2025 End: 04-04-2025 ambulatory 04/04/2025 5:30 PM EDT Treatment [facility] [address] [place] [address] Delia Kwan, PT [facility] [...] [address] [place] [address] Ryan Barger, MEDICAL ACCOUNTANT Arrived [facility] Comment on above: Arrived Start: 03-07-2025 Influenza vaccination Influenza Vacc ine (#1) [facility] Start: 03-02-2025 End: 03-02-2025 ambulatory 03/02/2025 5:30 PM EDT Treatment [facility] [address] [place] [address] Ryan Barger PTA [facility] Start: 02-28-2025 End: 02-28-2025 ambulatory 02/28/2025 6:00 PM EDT Treatment [facility] [address] [place] [address] Delia Kwan, MARYCARMEN [facility] Start: 02-24-2025 End: 02-24-2025 ambulatory 02/24/2025 6:00 PM EDT Treatment [facility] [address] [place] [address] Ofelia Blakely PTA [facility] Start: 02-15-2025 End: 02-15-2025 ambulatory 02/15/2025 6:00 PM EDT Treatment [facility] [address] [place] [address] Kem Costa PTA [facility] Start: 02-14-2025 End: 02-14-2025 Patient encounter procedure BIANCA RAPP Comment on above: Arrived Start: 02-08-2025 End: 02-08-2025 Patient encounter procedure 02/08/2025 4:00 PM EDT Office Visit [facility] [address] [place] [phone] Jovita Salas, CNM [address] [place], [place] [id number] [facility] Start: 02-01-2025 End: 02-01-2025 ambulatory [facility] Comment on above: Arrived Start: 01-27-2025 End: 01-27-2025 ambulatory [facility] Comment on above: Arrived Start: 01-24-2025 End: 01-24-2025 Evaluation 01/24/2025 6:00 PM EDT Evaluation [facility] [address] [place] [address] Delia Kwan, PT Sacrococcygeal disorders, not elsewhere classified (Primary Dx) [facility] Comment on above: Sacrococcygeal disor ders, not elsewhere classified (Primary Dx) Start: 12-03-2024 End: 12-03-2025 Bacteria identified in Urine by Culture Urine culture (clean catch) Microbiology Routine Nausea Pain of upper abdomen Expected: 12/03/2024 (Approximate), Expires: 12/03/2025 [facility] Comment on above: Expected: 12/03/2024 [...] upper abdomen Expected: 12/03/2024 (Approximate), Expires: 12/03/2025 [facility] Comment on above: Expected: 12/03/2024 (Approximate), Expires: 12/03/2025 Start: 12-03-2024 End: 12-03-2025 XR Abdomen Single view [facility] Work Phone: Comment on above: Expected: 12/03/2024 , Expires: 12/03/2025 Start: 12-03-2024 End: 12-03-2024 Patient encounter procedure 12/03/2024 1:30 PM EDT Office Visit [facility] [address] [place] [phone] Ness Montez NP [address] [place], [place] [id number] [facility] Start: 08-10-2024 End: 08-10-2024 Patient encounter procedure [facility] Comment on above: Arrived Start: 05-10-2024 End: 05-10-2025 Insulin, fasting Insulin, fasting Lab Routine Normal gynecologic examination Screening for cervical cancer PCOS (polycystic ovarian syndrome) Expected: 05/10/2024 (Approximate), Expires: 05/10/2025 [facility] Comment on above: Expected: 05/10/2024 (Approximate), Expires: 05/10/2025 Start: 05-10-2024 End: 05-10-2024 Patient encounter procedure 05/10/2024 2:00 PM EST Office Visit [facility] [address] [place] [phone] Jovita Salas, CNM [address] [place], [place] [id number] Arrived [facility] Comment on above: Arrived Start: 05-10-2024 End: 05-10-2025 THINPREP IMAGING PAP AND HPV DNA REFLEX HPV 16,18 THINPREP IMAGING PAP AND HPV DNA REFLEX HPV 16,18 Pathology and Cytology Routine Screening for cervical cancer Expected: 05/10/2024 (Approximate), Expires: 05/10/2025 [facility] Work Phone: Comment on above: Expected: 05/10/2024 (Approximate), Expires: 05/10/2025 Start: 03-07-2024 Influenza vaccination Influenza Vacc ine (#1) [facility] Start: 11-13-2023 DTaP/Tdap/Td vaccine (7 - Td or Tdap) DTaP/Tdap/Td vaccine (7 - Td or Tdap) [facility] Start: 08-14-2022 [facility] Start: 2021 Screening for malign ant neoplasm of cervix Pap smear [facility] Start: 2018 Hepatitis C screening Hepatitis C sc reen [facility] Start: 2016 Screening for Chlamy rafael trachomatis Chlamydia/GC screen [facility] Start: 2015 HIV screening HIV screen [facility] Start: 2015 HPV vaccine (1 - 3-d ose series) HPV vaccine (1 - 3-dose series) [facility] Start: 2012 Depression Screen Depression Screen [facility] CBC panel - Blood by Automated count CBC Lab Routine PCOS (polycystic ovarian syndrome) Ordered: 05/10/2024 [facility] Comment on above: Ordered: 05/10/2024 Glucose measurement estimated from glycated hemoglobin [facility] Hemoglobin A1c/Hemoglobin.total in Blood [facility] Hemoglobin A1c/Hemoglobin.total in Blood Hemoglobin A1c Lab Routine PCOS (polycystic ovarian syndrome) Ordered: 05/10/2024 [facility] Comment on above: Ordered: 05/10/2024 Immunizations Immunization Date Immunization Notes Care Provider Fabiana hinson 04-29-2024 SARS-COV-2 (COVID-19 ) vaccine, mRNA, spike protein, LNP, PF, anuj-sucrose, 30 mcg/0.3 mL Destinee Britton MD Work Phone: [facility] 04-29-2024 Seasonal, trivalent, recombinant, injectable influenza vaccine, preservative free Destinee Britton MD Work Phone: [facility] 04-29-2024 influenza virus vacc ine, unspecified formulation Delia Kwan PT [facility] 07-10-2019 Influenza, injectabl e, Madin Bhavana Canine Kidney, preservative free, quadrivalent Destinee Britton MD Work Phone: [facility] 07-10-2019 influenza, seasonal, injectable Becky Romeo Other [facility] 07-10-2019 influenza virus vacc ine, unspecified formulation Jovita Salas WILLOW Work Phone: [facility] 07-17-2018 Influenza, injectabl e, Madin Washington Canine Kidney, preservative free, quadrivalent Destinee Britton MD Work Phone: [facility] 03-02-2018 meningococcal polysaccharide (groups A, C, Y and W-135) diphtheria toxoid conjugate vaccine (MCV4P) Becky Romeo Other [facility] 05-19-2013 meningococcal polysaccharide (groups A, C, Y and W-135) diphtheria toxoid conjugate vaccine (MCV4P) Destinee Britton MD Work Phone: [facility] 05-19-2013 tetanus toxoid, redu latrice diphtheria toxoid, and acellular pertussis vaccine, adsorbed Destinee Britton MD Work Phone: [facility] 05-19-2013 varicella virus vaccine Destinee Britton MD Work Phone: [facility] 04-03-2006 diphtheria, tetanus toxoids and acellular pertussis vaccine, unspecified formulation Destinee Britton MD Work Phone: [facility] 04-03-2006 hepatitis B vaccine, pediatric or pediatric/adolescent dosage Destinee Britton MD Work Phone: [facility] 04-03-2006 measles, mumps and rubella virus vaccine Destinee Britton MD Work Phone: [facility] 04-03-2006 poliovirus vaccine, unspecified formulation Destinee Britton MD Work Phone: [facility] 04-03-2006 varicella virus vaccine Destinee Britton MD Work Phone: [facility] 03-03-2006 DTaP-hepatitis B and poliovirus vaccine Destinee Britton MD Work Phone: [facility] 03-03-2006 measles, mumps and rubella virus vaccine Destinee Britton MD Work Phone: [facility] 12-23-2001 measles, mumps and rubella virus vaccine Destinee Britton MD Work Phone: [facility] 09-17-2001 diphtheria, tetanus toxoids and acellular pertussis vaccine, unspecified formulation Destinee Britton MD Work Phone: [facility] 09-17-2001 haemophilus influenz ae type b vaccine, conjugate unspecified formulation Destinee Britton MD Work Phone: [facility] 2000 diphtheria, tetanus toxoids and acellular pertussis vaccine, unspecified formulation Destinee Britton MD Work Phone: [facility] 2000 haemophilus influenz ae type b vaccine, conjugate unspecified formulation Destinee Britton MD Work Phone: [facility] 2000 hepatitis B vaccine, pediatric or pediatric/adolescent dosage Destinee Britton MD Work Phone: [facility] 2000 poliovirus vaccine, unspecified formulation Destinee Britton MD Work Phone: [facility] 2000 haemophilus influenz ae type b vaccine, conjugate unspecified formulation Destinee Britton MD Work Phone: [facility] 2000 diphtheria, tetanus toxoids and acellular pertussis vaccine, unspecified formulation Destinee Britton MD Work Phone: [facility] 2000 poliovirus vaccine, unspecified formulation Destinee Britton MD Work Phone: [facility] 2000 diphtheria, tetanus toxoids and acellular pertussis vaccine, unspecified formulation Destinee Britton MD Work Phone: [facility] 2000 haemophilus influenz ae type b vaccine, conjugate unspecified formulation Destinee Britton MD Work Phone: [facility] 2000 hepatitis B vaccine, pediatric or pediatric/adolescent dosage Destinee Britton MD Work Phone: [facility] 2000 poliovirus vaccine, unspecified formulation Destinee Britton MD Work Phone: [facility] 2000 hepatitis B vaccine, pediatric or pediatric/adolescent dosage Destinee Britton MD Work Phone: [facility] Payers Date Payer Category Payer Unknown 2024 Unknown [id number] 2022 Blue [employer] Blue Shield [id number] 2022 Self-pay [id number] 2022 Blue Cross Blue Shield 1.2.8 [id number] 15 2000 Unknown [id number] 2.16.84 0.1.480546.3.579.2.593 2000 Unknown [id number] 2.16.84 0.1.851267.3.579.2.593 2000 Unknown [id number] 2.16.84 0.1.761290.3.579.2.593 2000 Unknown [id number] 2.16.84 0.1.369912.3.579.2.593 2000 Unknown [id number] 2.16.84 0.1.009972.3.579.2.593 2000 Unknown [id number] 2.16.8 40.1.987005.3.579.2.173 2000 Unknown [id number] 2.16.8 40.1.461172.3.579.2.173 2000 Unknown [id number] 2.16.8 40.1.132261.3.579.2.173 2000 Unknown [id number] 2.16. 840.1.930920.3.579.2.196 2000 Unknown [id number] 2.16. 840.1.149940.3.579.2.196 2000 Unknown [id number] 2.16. 840.1.466227.3.579.2.196 2000 Unknown [id number] 2.16. 840.1.942543.3.579.2.196 2000 Unknown [id number] 2.16. 840.1.096530.3.579.2.196 2000 Unknown [id number] 2.16. 840.1.037939.3.579.2.196 2000 Unknown [id number] 2.16. 840.1.290977.3.579.2.196 2000 Unknown [id number] 2.16. 840.1.091240.3.579.2.128 2000 Unknown [id number] 2.16. 840.1.244655.3.579.2.1285 2000 Unknown [id number] 2.16. 840.1.986107.3.579.2.1285 2000 Unknown [id number] 2.16. 840.1.261011.3.579.2.1285 2000 Unknown [id number] 2.16. 840.1.870562.3.579.2.1285 2000 Unknown [id number] 2.16. 840.1.608058.3.579.2.1285 2000 Unknown [id number] 2.16. 840.1.823119.3.579.2.1285 2000 Unknown [id number] 2.16. 840.1.668042.3.579.2.1285 2000 Unknown [id number] 2.16. 840.1.429381.3.579.2.1285 2000 Unknown [id number] 2.16. 840.1.843514.3.579.2.1285 2000 Unknown [id number] 2.16. 840.1.371660.3.579.2.1285 2000 Unknown [id number] 2.16. 840.1.345132.3.579.2.1285 2000 Unknown [id number] 2.16. 840.1.367979.3.579.2.1286 2000 Unknown [id number] 2.16.8 40.1.142036.3.579.2.1286 2000 Unknown [id number] 2.16.8 40.1.775777.3.579.2.1286 2000 Unknown [id number] 2.16.8 40.1.232988.3.579.2.1286 2000 Unknown [id number] 2.16.8 40.1.018320.3.579.2.1286 1959 Unknown [id number] 2.16.8 40.1.142622.3.579.2.531 Unknown [id number] 2.16.8 40.1.055633.3.579.2.531 Unknown [id number] 2.16.8 40.1.017089.3.579.2.531 Social History Date Type Detail Facility Tobacco smoking stat [facility] Unknown if ever smoked [facility] Start: 2000 Sex Assigned At Female [facility] Start: 12-04-2023 End: 05-20-2024 Sex Assigned At [facility] Start: 10-10-2023 Tobacco smoking status AZIS Unknown if ever smoked [facility] Start: 06-26-2023 End: 05-20-2024 Tobacco smoking status AZIS Never smoked tobacco [facility] [...] Gender identity Identifies as female gender (finding) [facility] Start: 05-24-2024 End: 12-03-2024 Alcoholic beverage intake Ex-drinker (finding) [facility] How often do you nee d to have someone help you when you read instructions, pamphlets, or other written material from your doctor or pharmacy [SILS] Never [facility] Do you belong to any clubs or organizations such as jain groups, unions, fraternal [...] To some extent [facility] (I/We) worried [facility] er (my/our) food would run out before (I/we) got money to buy more. Never true [facility] Start: 05-20-2024 Tobacco Comment Currently Vape everyday [facility] Start: 07-20-2024 Tobacco smoking status [facility] Ex-smoker [facility] History of tobacco use Current smoker [facility] History of tobacco use Cigarette Smoker B on [facility] Start: 2000 Sex assigned at Not on file [employer] Start: 08-16-2012 Sex Female (finding) [facility] [employer] How often do you nee d to [...] to be instructed in home exercise program. [facility] Goals: To be met in 10 weeks [...] sign below. Date: documented in this encounter [facility] 02-28-2025 History of Presen t illness [...] to be instructed in home exercise program. Shaker Tender Goals: To be met in 10 weeks [...] sign below. Date: documented in this encounter [facility] 02-15-2025 Telephone encount er Note Jackson left at 9:13 am Pa, this is Jenn from [facility] in [place]. I am calling about a mutual patient. Edwige Leonardo. Date of is 2000. I am calling about the spring [employer] or the control you guys sent over the quantity on the prescription. They only come in packs at 28. So we need a quantity on that prescription to say 84 with 3 refills. If you could please either send over any prescription with the correct quantity or give us a callback that would be great. Our phone number here is [phone]. Again, this is Jenn from [facility] coming from a Main for Edwige Evans move 2000 for the spring tech or generic, nor just with [employer], dial the control, calling the change quantity to 84 because they only come in back to 28 and we can not open the pack again, phone number [phone] if you want to call for change or send over a brand new prescription with the correct quantity of 84? Thank you. [facility] 02-15-2025 Miscellaneous Notes Formattin g of this note might be different from the original. Vm left at 9:13 am Hi, this is Jenn from [facility] in [place]. I am calling about a mutual patient. [...] be great. Our phone number here is [phone]. Again, this is Jenn from [facility] coming from a Main for Edwige Evans move 2000 for the spring tech or generic, nor just with [employer], dial the control, calling the change quantity to 84 because they only come in back to 28 and we can not open the pack again, phone number [phone] if you want to call for change or send over a brand new prescription with the correct quantity of 84? Thank you. documented in this encounter [facility] 02-14-2025 History of Presen t illness Narrative PROBLEM VISIT Edwige Sierra is 24 y.o. a patient of [facility] Here for 6 month follow up Last [...] times a day as needed Norgestimate-Eth Estradiol (Hbf-Lc-Khbmcl) 0.18/0.215/0.25 MG-25 MCG tablet TAKE 1 TABLET [...] MA,02/14/2025 5:18 PM documented in this encounter [facility] 01-24-2025 History of Presen t illness [...] to be instructed in home exercise program. Shaker Tender Goals: To be met in 10 weeks [...] sign below. Date: documented in this encounter [facility] 01-06-2025 Evaluation note Diagnosis Onset Date Resolution Paresthesias acute January 06 2:55pm Pain of left sacroiliac joint acute January 11, 2025 9 :14am Pain of right sacroiliac joint acute January 11, 2025 9:14am Paresthesias acute January 11 9:14am [facility] Work Phone: [phone] 306-336705-30-2025 History of Present illness Narrative* Ness Montez [...] prompting another visit to the ER in [place]. A diagnosis of viral gastroenteritis was made [...] Flowsheet Row Documentation from 11/30/2024 in [facility] with [facility] Information ED, Hospital or Snf Facility Discharge? ED Patient has been contacted within 2 days of being seen in the ED Yes Diagnosis Viral Infection Discharge Date 11/28/24 Discharged To: Home Setting Discharge Hospital [facility] Engagement Call Start Time 1528 Admission Date [...] Name Age of Onset Diabetes Mother Kelsy Seirra Cancer Paternal Grandmother Tawnya Sierra Heart failure [...] fluid intake and abstain from smoking marijuana. Gaqc-clf-fxmknwu MiraLAX can be used if constipation persists. [...] or other abnormalities. - Advised to use uitp-ynv-edrlvpp MiraLAX if constipation persists and to increase fluid intake. - Blood work will be done to assess kidney and liver function. No follow-ups on file. documented in this encounterCooper County Memorial [id number] Hospital Discharge instructions* Discharge Instructions* Alicia Dunn [...] sent through Care Everywhere. * Back Pain ([place]enezuelan) [facility] History of Present illness Narrative* Jovita Salas CNM - 08/10/2024 4:00 PM EST PROBLEM VISIT Edwige Sierra is 24 y.o. a patient of [facility] Here for follow up on medications Last pap: Last mammogram: n/a No LMP recorded. History: Past Medical History: Diagnosis Date Anxiety 10/2023 Depression 12/2019 Right ankle sprain No past surgical history on file. Family History Problem Relation Name Age of Onset Diabetes Mother Kelsy Sierra Cancer Paternal Grandmother Tawnya Sierra Heart failure Other g-ma Diabetes Sister Jovana Sierra Mental illness Sister Jovana Sierra [facility] Allergies: No Known Allergies Medications: Current [...] Salas CNM,12/16/2024 4:48 PMpatient documented in this encounterCooper County Memorial [id number] Hospital Discharge instructions* Discharge Instructions* Octavio Day [...] sent through Care Everywhere. * Back [facility] ([place]) [facility]* Discharge Instructions* Yoli Lal [...] through Care Everywhere. * Strain or Sprain ([place]an) [facility] Tele[facility] encounter Note* Telephone Encounter - Bess Lomeli - 06/02/2024 1:06 PM EST Pt called and left a vm at 12:41 pm today She said she has been waiting for her BC to be called over to [facility] [facility] but they haven't received anything. She asked if that can please be sent over. [facility] [id number] Miscellaneous Notes* [facility]02[facility]24 1:06 PM EST Pt called and left a vm at 12:41 pm today She said she has been waiting for her BC to be called over to [facility] but they haven't received anything. She asked if that can please be sent over. documented in this encounterCooper County Memorial [id number] History of Present illness Narrative* Destinee Britton [...] should contact the clinic. documented in this encounterCooper County Memorial [id number] History of Present illness Narrative* Destinee Britton [...] child. SOCIAL HISTORY She works at the [employer]. She is getting her master's degree in [...] bite block during sleep. documented in this encounterCooper County Memorial [id number] History of Present illness Narrative* ALEJANDRA Cruz - 05/10/2024 2:00 PM EST YEARLY HPI: This is a established patient. Chief Complaint Patient presents with Gynecologic Exam Here for annual exam. 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 [employer] Other 06-05-2023 Evaluation note* Encounter Date Diagnosis [...] no improvement in 5 to 7 days [employer] Other 02-06-2023 Evaluation note* Encounter Date Diagnosis [...] Screening for deficiency anemia (ICD-10 - Z13.0) [employer] Other 08-05-2022 Evaluation note* Encounter Date Diagnosis [...] understanding and is agreeable to treatment plan. [employer] Other 08-03-2022 Evaluation note* Encounter Date Diagnosis [...] no improvement in 2 to 3 days. [employer] Other 12-28-2021 Evaluation note* Encounter Date Diagnosis Assessment Notes Treatment Notes Treatment Clinical Notes Jun, Exposure to COVID-19 virus (ICD-10 - Z20.822) Jun, COVID-19 (ICD-10 - U07.1) Patient's rapid test is positive for Covid-19. She is given instructions for quarantine and supportive care. Call immediately for change/worsening or with questions/concerns. [employer] Other 11-13-2020 NotePROCEDURE: XR ANKLE RT MIN 3 VIEWS COMPARISON: 05/19/2020 intraprocedural, 04/02/2020 HISTORY: Postoperative care FINDINGS: BONES:No fracture, acute abnormality, or significant arthropathy. SOFT TISSUES:Post procedural soft tissue swelling, subcutaneous air and lateral surgical elaina EFFUSION:None visible. OTHER: Negative. IMPRESSION: Postprocedural changes Electronically authenticated by: ROGE THACKER Date: 2020-05-19 14:02[facility]11-13-2020 NotePROCEDURE: XR ANKLE RT 2V COMPARISON: [...] authenticated by: ROGE THACKER Date: 2020-05-19 14:00[id number] History general Narrative - Reported* Type Description Date Medical History Chronic back pain Medical History Hx of concussion Medical History acne Medical History chronic depression Surgical History ankle reconstruction- right 2019 [employer] Other 09-17-2020 NotePROCEDURE: XR FOOT RT MIN 3 VIEWS COMPARISON: 02/29/2020 HISTORY: Pain in right foot FINDINGS: BONES:Stable intra-articular transverse fracture base of the fifth metatarsal. No acute fracture or dislocation SOFT TISSUES:Negative. No visible soft tissue swelling. EFFUSION:None visible. OTHER: Negative. IMPRESSION: Stable healing intra-articular transverse fracture base of the fifth metatarsal Electronically authenticated by: ROGE THACKER Date: 2020-03-23 10:22 [id number] NotePROCEDURE: XR ANKLE RT MIN 3 VIEWS, [...] authenticated by: ROGE THACKER Date: 2020-02-29 12:57[id number] NotePROCEDURE: XR ANKLE RT MIN 3 VIEWS, [...] authenticated by: ROGE THACKER Date: 2020-02-29 12:57[facility] noteNo InformationNortContix Other Evaluation noteNo assessment information available [facility] Work Phone: evaluation note* Diagnosis Onset Date Resolution Status Bilateral acute otitis media resolved [facility] Work Phone: evaluation note* Diagnosis PCOS (polycystic ovarian syndrome)- Primary Polycystic ovaries Normal gynecologic examination Screening for cervical cancer Screening for malignant neoplasm of the cervix Other acne Hirsutism documented in this encounter [facility]* Diagnosis Candidiasis- Primary Acute nausea with nonbilious vomiting documented in this encounter [facility]* Diagnosis Candidiasis- Primary documented in this encounter [facility]* Diagnosis Encounter for initial prescription of contraceptive pills documented in this encounter [facility]* Diagnosis Strain of lumbar region, initial encounter- Primary Abnormal computed tomography of lumbar spine [facility]* Diagnosis Acute exacerbation of chronic low back pain- Primary documented in this encounter [facility]* Diagnosis Acute exacerbation of chronic low back pain- Primary documented in this encounter [facility]* Diagnosis Nausea- Primary Nausea alone Pain of upper abdomen documented [facility]* Diagnosis Unwanted fertility- Primary PCOS (polycystic ovarian syndrome) Polycystic ovaries documented in this encounter [facility]* Diagnosis Onset Date Resolution [...] History Hx of concussion Medical History acne [employer] [facility] [employer] Other History general Narrative - Reported* Type Description Date Medical History Chronic back pain Medical History Hx of concussion Medical History acne Medical History chronic depression [employer] [facility] [employer] Other Reason for referral (narrative)No reason for referral [facility] Phone: Reason for visit Narrative* Rehabilitation - Outpatient (Routine) - Authorized Specialty Diagnoses / Procedures Referred By Contac t Referred To Contact Physical Therapy Diagnoses Sacrococcygeal disorders, not elsewhere classified Procedures [place] PHYSICAL THERAPY EVALUATION LOW COMPLEX 20 MINS VT OFFICE/OUTPATIENT [facility] 60 MINUTES Feliz Musa MD [address] [place] [address], [address] [place] [address] Phone: tel: fax: Delia Kwan PT Referral ID Status Reason Start Date Expiration Date V isits Requested Visits Authorized [id number] Authorized 01/24/2025 03/24/2025 6 6 [facility] Narrative* Rehabilitation - Outpatient (Routine) - Closed Specialty Diagnoses / Procedures Referred By Contac t Referred To Contact Physical Therapy Diagnoses Sacrococcygeal disorders, not elsewhere classified Procedures VT PHYSICAL THERAPY EVALUATION LOW COMPLEX 20 MINS VT OFFICE/OUTPATIENT NEW HIGH MDM 60 MINUTES Feliz Musa MD [address] [facility], [address] [place] [address] Phone: tel: fax: Delia Kwan, PT Referral ID Status Reason Start Date Expiration Date Visits Re quested Visits Authorized [id number] Closed 01/24/2025 03/24/2025 6 6 [facility] Narrative* Rehabilitation - Outpatient (Routine) - Authorized Specialty Diagnoses / Procedures Referred By Contac t Referred To Contact Physical Therapy Diagnoses Sacrococcygeal disorders, not elsewhere classified Procedures VT THER PX 1/> AREAS EACH 15 MIN NEUROMUSC REEDUCA [place] MANUAL THERAPY TQS 1/> REGIONS EACH 15 MINUTES VT THERAPEUTIC PX 1/> AREAS EACH 15 MIN EXERCISES PHYS/OCC THERAPY SS Feliz Musa MD [address] [facility], [address] [place] [address] Phone: tel: fax: Delia Kwan, MARYCARMEN Referral ID Status Reason Start Date Expiration Date V isits Requested Visits Authorized [id number] Authorized 03/09/2025 05/07/2025 6 6 [facility] [...] 6:50a m EMG BLE per Jazmin Yanez [facility] January 06 2:55pm Reason for Visit Admit Date Paresthesias January 06, 2025 2:55p m Chief Complaint Admit Date Amb Documentation December 01, 2024 6:50a m EMG BLE per Jazmin Yanez [facility] January 06 2:55pm low back pain [...] and content) DATE CREATED AUTHOR 01/04/2021 [facility] DATE CREATED AUTHOR AUTHOR'S ORGANIZ ATION 06/27/2021 [facility] dical Specialist DATE CREATED AUTHOR AUTHOR'S ORGANIZ ATION 12/16/2022 [facility] DATE CREATED AUTHOR AUTHOR'S ORGANIZ ATION 12/01/2024 [facility] DATE CREATED AUTHOR AUTHOR'S ORGANIZ ATION 03/23/2025 [facility] DATE CREATED AUTHOR AUTHOR'S ORGANIZ ATION 04/16/2025 [facility] REASON FOR VISIT (unrecogniz ed section and [...] since 2016. MRI completed on Friday in [place]. Reason Comments Back Pain Bilateral lower back [...] November 11, 2023 End: November 11, 2023 Fur Clipper Relationship Specialty Start Date End Date Destinee Britton MD [address] [facility] [place] [address] PCP - General Family Medicine 11/12/22 Fur Clipper Relationship Specialty Start Date End Date Destinee Britton MD [address] [facility] [place] [address] PCP - General Family Medicine 11/12/22 Fur Clipper Relationship Specialty Start Date End Date Destinee Britton MD [address] [facility] [place] [address] PCP - General Family Medicine 11/12/22 Fur Clipper Relationship Specialty Start Date End Date Destinee Britton MD [address] [place] [address] PCP - General Family Medicine 11/12/22 Fur Clipper Relationship Specialty Start Date End Date Destinee Britton MD [address] [place] [address] PCP - General Family Medicine 11/12/22 Fur Clipper Relationship Specialty Start Date End Date Becky Romeo DO NPI: [address] [place] [address];[address] [place] [address] PCP - General Family Medicine 07/20/24 Fur Clipper Relationship Specialty Start Date End Date Becky Romeo DO NPI: [address] [place] [address];[address] [place] [address] PCP - General Family Medicine 07/20/24 Fur Clipper Relationship Specialty Start Date End Date Becky Romeo DO NPI: [address] [place] [address];[address] [place] [address] PCP - General Family Medicine 07/20/24 Fur Clipper Relationship Specialty Start Date End Date Destinee Britton MD [address] [facility] [place] [address] PCP - General Family Medicine 11/12/22 Fur Clipper Relationship Specialty Start Date End Date Destinee Britton MD [address] [place] [address] PCP - General Family Medicine 11/12/22 Fur Clipper Relationship Specialty Start Date End Date Destinee Britton MD [address] [place] [address] PCP - General Family Medicine 11/12/22 Team Status: Inactive Member Role Status Dates Becky Romeo DO Primary Care Provider Active Start: January 11, 2025 End: January 11, 2025 Feliz Musa MD Attending Provider Active Star t: January 11, 2025 End: January 11, 2025 Fur Clipper Relationship Specialty Start Date End Date Destinee Britton MD [address] [facility] [place] [address] PCP - General Family Medicine 11/12/22 Fur Clipper Relationship Specialty Start Date End Date Destinee Britton MD [address] [facility] [place] [address] PCP - General Family Medicine 11/12/22 Fur Clipper Relationship Specialty Start Date End Date Destinee Britton MD [address] [facility] [place] [address] PCP - General Family Medicine 11/12/22 Fur Clipper Relationship Specialty Start Date End Date Destinee Britton MD [address] [facility] [place] [address] PCP - General Family Medicine 11/12/22 Fur Clipper Relationship Specialty Start Date End Date Destinee Britton MD [address] [facility] [place] [address] PCP - General Family Medicine 11/12/22 Fur Clipper Relationship Specialty Start Date End Date Destinee Britton MD [address] [facility] [place] [address] PCP - General Family Medicine 11/12/22 Fur Clipper Relationship Specialty Start Date End Date Destinee Britton MD [address] [facility] [place] [address] PCP - General Family Medicine 11/12/22 Fur Clipper Relationship Specialty Start Date End Date Destinee Britton MD [address] [place] [address] PCP - General Family Medicine 11/12/22 Fur Clipper Relationship Specialty Start Date End Date Destinee Britton MD [address] [place] [address] PCP - General Family Medicine 11/12/22 Fur Clipper Relationship Specialty Start Date End Date Destinee Britton MD [address] [place] [address] PCP - General Family Medicine 11/12/22 Fur Clipper Relationship Specialty Start Date End Date Destinee Britton MD [address] [place] [address] PCP - General Family Medicine 11/12/22 Fur Clipper Relationship Specialty Start Date End Date Destinee Britton MD [address] [place] [address] PCP - General Family Medicine 11/12/22 Fur Clipper Relationship Specialty Start Date End Date eDstinee Britton MD [address] [place] [address] PCP - General Family Medicine 11/12/22 Fur Clipper Relationship Specialty Start Date End Date Destinee Britton MD [address] [place] [address] PCP - General Family Medicine 11/12/22 Fur Clipper Relationship Specialty Start Date End Date Destinee Britton MD [address] [place] [address] PCP - General Family Medicine 11/12/22 Fur Clipper Relationship Specialty Start Date End Date Destinee Britton MD [address] [place] [address] PCP - General Family Medicine 11/12/22 Goals [...] BE BASED ON THE PRIMARY CLINICAL RECORDS. [facility]. provides no warranty or guarantee of the accuracy or completeness of information in this document.
--- NOTE | 2025-04-20 09:02 | PM.CN ---
Consult Note: HPI Data of Consult Patient: known to practice within the last 3 years Requesting Physician: Jazmin Yanez NP Primary Care Provider: Vidal Romeo, DO Consult Narrative Reason for consult: f/u Narrative: Edwige tellez pleasant 24 year old female presents for evaluation of chronic low back pain secondary to bulging disc, lumbar ddd, and lumbar spondylosis. continues to utilize heat, ice, methocarbamol cannot take tylenol due to elevated liver enzymes. failed baclofen. pain today 4/10 increasing to 8/10 in low back. increased pain standing, walking, sitting, with activity, and sleep. finds benefit to PRN chiropractor care. recently underwent bilateral L4-5 L5-S1 mbb #1 and #2 with >80% improvement in pain while anesthetized, preop pain up to 8/10 post op pain 1/10. pt noted improvement with walking, going up stairs, dishes, laundry, and ADLS during this time. cc:: CC: Jazmin Yanez NP Review of Systems ROS Musculoskeletal Reports: back pain and joint pain [facility] Medical History (Updated 03/15/25 @ 11:19 by Ras Singh MD) Low back pain ?M54.50 - Low back pain, unspecified (ICD-10) Depression ?F32.A - Depression, unspecified (ICD-10) PCOS (polycystic ovarian syndrome) ?E28.2 - Polycystic ovarian syndrome (ICD-10) Surgical History History of ankle surgery ?Z98.890 - Other specified postprocedural states (ICD-10) Social History Little interest or pleasure in doing things: not at all Feeling down, depressed, or hopeless: not at all Meds Home Medications and Allergies Home Medications ?Medication ?Instructions ?Recorded ?Confirmed ?Type bupropion HCl 300 mg 24 hr tablet, 300 mg PO DAILY 08/16/24 04/18/25 History extended release Held on 04/18/25. Instructions: Doctor's Order norgestimate 0.18 mg/0.215mg/0.25 1 tab PO DAILY 08/16/24 04/18/25 History mg-ethinyl estradiol 0.025 mg tablet (Sqr-Js-Svlryw) ondansetron 4 mg disintegrating 4 mg PO Q6H PRN nausea and 11/28/24 04/18/25 Rx tablet vomiting #20 tabs baclofen 10 mg tablet 10 mg PO Q8H PRN spasms 12/27/24 04/18/25 History hydrocodone 7.5 mg-ibuprofen 200 1 tab PO Q6H PRN pain 5 days #20 03/15/25 04/18/25 Rx mg tablet tabs methocarbamol 500 mg tablet See Rx Instructions .Route 03/16/25 04/18/25 Rx .COMPLEX PRN muscle spasm #120 tabs Allergies Allergy/AdvReac Type Severity Reaction Status Date / Time No Known Drug Allergies Allergy Verified 04/18/25 09:09 Exam Constitutional Documenting provider has reviewed patient's vital signs: yes Common normals: no apparent distress, oriented x3, healthy appearing, alert and well nourished General appearance: cooperative HENMT Common normals: normocephalic, hearing grossly normal bilaterally and moist oral mucous membranes Head and scalp: normocephalic Eye Common normals: PERRL Pupil: PERRL Neck & C-Spine Common normals: full ROM General: normal visual inspection Chest Common normals: inspection of chest normal Respiratory Common normals: normal respiratory effort, no retractions and no use of accessory muscles Back & Pelvis Lumbar spine/lower back: ROM limited, pain with ROM, lumbar spinal tenderness and straight leg raise negative bilaterally Other: strength 5/5 in BLE positive L4-S1 facet loading and tenderness Neuro Common normals: oriented x3 Sensorium/orientation: alert Psych Common normals: mental status grossly normal, thought process normal, cooperative, affect normal, speech normal and activity/motor behavior normal Speech: normal speech Thought process: normal thought process Results Additional Findings Additional findings: If on a controlled substance or opioids, I have checked an [place]AR[place] report on this patient and there are no aberrancies noted in the prescribing history.??If on a controlled substance or opioid a drug screen was completed and reviewed within the last year, and if there has not been a drug screen completed we ordered one today to monitor higher risk, state monitored pain medication use. As part of providing excellent, safe, comprehensive care, the following was completed at our patient's visit: 1. A medication reconciliation and review to ensure accurate knowledge of current/active medications, including asking our patients to inform us about any [id number]-bhfgyot medications or herbal remedies/nutritional supplements/alternative remedies. 2. A review to specifically ensure our patients have had annual screening for screening for depression, screening for tobacco use, and screening for unhealthy alcohol use. For concerning screenings had a discussion with the patient, provided patient education, and recommended follow-up with primary care provider when appropriate. If patient noted with a risk of falling, they received education on strength, gait, and balance training to prevent future risk of falling. Portions of this note may have been carried over from the previous visit and updated as appropriate. Please note this office utilizes paper charting in addition to the electronic medical record. A list of current medications, vitals, and PMH is available there as the clinical staff outside of myself do not have access to [employer] charting during the clinic day operations. As part of providing quality comprehensive care the current medications, vitals, and PMH were reviewed in the paper chart. Assessment and Plan Assessment and Plan (1) Lumbar spondylosis: Assessment and Plan: The patient has had over 3 months of moderate to severe low back pain with functional impairment and inadequate response to conservative care including NSAIDS (unless there are contraindication such as concurrent blood thinners), multiple oral or topical pain medications, and home exercise program/physical therapy.? Patient has completed >6 weeks of guided home exercise program and/or formal physical therapy program without relief of their symptoms.? The Oswestry Disability Index was completed, and the patient scored a 41%.?? ?The procedure will be completed with fluoroscopic guidance.? (2) Myalgia, other site: (3) Lumbar stenosis with neurogenic claudication: Plan bilateral L4-5 L5-S1 facet RFA with 10mg po valium under fluoroscopy for facet mediated back pain continue PT and dry needling/massage, finding mild benefit continue methocarbamol 500-1000mg BID prn pain/spasms f/u 1 month after RFA complete
== END 2025-04-20 08:47 | disposition home or self-care (01) ==
LOC: PM 08:46
PROVIDERS: PCP Student in an Organized Health Care Education/Training Program; Visit Provider Nurse Practitioner
DX: M47.816 Spondylosis without myelopathy or radiculopathy, lumbar region (principal); M48.062 Spinal stenosis, lumbar region with neurogenic claudication; M79.10 Myalgia, unspecified site
CPT/HCPCS: G0463

== ENCOUNTER 2025-04-25 08:39 | Day surgery (SDC) | payer BC, SELFPAY ==
[2025-04-25 08:43] VITALS: BP 120/80; PULSE 83; TEMP 36.6; O2SAT 98
--- OUTSIDE RECORDS SUMMARY | 2025-04-25 08:44 | XMS_ITS | CCD ---
Author Organization [facility] Care Team Providers Care Account Development Specialist Name Role Phone Radha Aguilera Attending Provider Unavailnaun DUMONT, FAMILY PHYSICIAN Primary Care Provider Unava toyin BRITTON, DR LOOMIS Primary Care Unavailable GRISEL DIALLO Admitting Unavailable WEST, DR ROGE Sewell Consulting Unavailable GRISEL DIALLO Attending Unavailable GRISEL DIALLO Consulting Unavailable RENETTA, SUYAPA Admitting Unavailable BRANNABORCKI, BECKY Primary Care Unavailable RENETTA, SUYAPA Attending Unavailable HIGHLLUIS, SUYAPA Attending Unavailable HIGHLLUIS, SUYAPA Consulting Unavailable HIGHLANDER, SUYAPA Admitting Unavailable BRANIECKI, BECKY Primary Care Unavailable WEST, DR ROGE Sewell Consulting Unavailable HIGHLLUIS, SUYAPA Admitting Unavailable BRANNABORCKI, BECKY Primary Care Unavailable HIGHLANDER, SUYAPA Attending Unavailable HIGHLANDER, SUYAPA Consulting Unavailable LUCERO, RELL Consulting Unavailable EWELINA, AMAURY Consulting Unavailable LEATHAM, DOUG Consulting Unavailable MONA, FLORINA Consulting Unavailable HIGHLLUIS, SUYAPA Attending Unavailable HIGHLLUIS, SUYAPA Admitting Unavailable WEST, DR ROGE Sewell [...] Unavailable Giovana BOWEN, Mack Zimmerman Attending Provider Lencho LANDIS, Feliz Queen Attending Provider [phone] ROSANA, CHAD Giordano Attending Unavailable BRANIECKI, BECKY [...] BRANIECKI, BECKY A Primary Care Unavailable ANGELONUBIA TRIANA Attending Unavailable BRANIECKI, BECKY A Referring Unavailable [...] BRANIECKI, BECKY A Primary Care Unavailable ANGELONUBIA TRIANA Attending Unavailable BRANIECKI, BECKY A Referring Unavailable BRANIECKI, BECKY A Primary Care Unavailable ROSANA, CHAD W Attending Unavailable BRANIECKI, BECKY A Referring Unavailable BRANIECKI, BECKY A Primary Care Unavailable ROSANA, CHAD W Attending Unavailable BRANIECKI, BECKY A Referring Unavailable BRANIECKI, BECKY A Primary Care Unavailable Giedraitis , Ty Wallace Attending Unavailable Edwina , Adam Aguilar Attending Unavail able Braniecki DO, Becky Saldana Referring Un available Giedraitis , Andrius Wallace Attending Unavailable Giedraitis , Andrius Rodrigo Attending Unavailable Giedraitis , Andrius Vytjohn Attending Unavailable Giedraitis MD, Andrius Vytautkade Attending Unavailable Giedraitis MD, Andrius Vytautkade Attending Unavailable Giedraitis MD, Andrius Vytautkade Attending Unavailable Unavailable Unavailable Unavailable Medications Current Medications Medication Drug Class(es) Dates Sig (Normalized) Sig (Original) baclofen 10 mg oral tablet (19 sources) gamma-Aminobutyric Acid-ergic Agonist Start: 01-11-2025 take [...] tablet by mouth once daily Norgestimate-Eth Estradiol (Oqd-Bv-Pwkfrg) 0.18/0.215/0.25 MG-25 MCG tablet Indications: Unwanted fertility [...] 03/11/2024 Active etodolac 400 mg oral tablet (18 sources) Nonsteroidal Anti-inflammatory Drug Start: 01-31-2025 take [...] insructions. 1 kit 11/24/2024 11/30/2024 Active Start: 02-06-2023 Medrol 4 MG as directed Orally Throughout [...] Drug Class(es) Dates Sig (Normalized) Sig (Original) [id number] 200 actuat albuterol 0.09 mg/actuat metered dose [...] 2023 2:33pm take 1 capsule by [facility] every eight hours Dicyclomine HCl 10 MG [...] Interpretation and review of laboratory results Normal [facility] Preg Test, Ur Negative Negative [facility] Urinalysis macro (dipstick) panel (U)on 12-03-2024 Bilirubin, UA 3+ Negative - 4(70) +++ mg/dL [facility] Blood, UA Negative Negative - 50 Aidan/mcL [facility] Clarity, UA Clear [facility] Color, UA Yellow [facility] Glucose, UA Negative Negative - 2000(110) ++++ mg/dL [facility] Interpretation and review of laboratory results Abnormal [facility] Ketones, UA Positive Negative - 160(16) ++++ mg/dL [facility] Leukocytes, UA 1+ Negative - 500+++ Samira/mcL [facility] Nitrite, UA Negative Negative - Positive [facility] pH, UA 6 5 - 9 [facility] Protein, UA 1+ Negative - 2000(20) ++++ mg/dL [facility] Spec Grav, UA 1.02 1 - 1.03 [facility] Urobilinogen, UA 0.2 0.2 - 12 mg/dL [facility] CT LUMBAR SPINE WO CONTRASTo [...] MD 07/20/24 Final result Normal [facility] CT Lumbar spine WO contrasto n 07-20-2024 [...] facets throughout with no significant spinal stenosis. [facility] RIS CONSOLIDATED EXAMINATION: CT OF [...] TISSUES/RETROPERITONE UM: No paraspinal mass is seen. [facility] RIS Octavio Rosen MD - [...] facets throughout with no significant spinal stenosis. [facility] Radiology Study observation (narrative) Bill vázquez [facility] CT Lumbar spine WO contrastO rdered By: Octavio Lowe on 07-20-2024 [facility] Work Phone: HCG, ,Urineon 07-20 Beta HCG ( test) Ql (U) Negative Normal NEG [facility] Comment on above: Result Comment: Spec imens with hCG levels near the threshold of the test (25 mIU/mL) may give a negative or indeterminate result. In such cases, another test should be performed with a new specimen in 48-72 hours. If early is suspected clinically in this setting, correlation with quantitative serum b-hCG level is suggested. [email or web address] has confirmed the use of plasma for this test. This has not been cleared or approved by the U.S. Food and Drug Administration. The FDA has determined that such clearance is not necessary. Performed By: #### U HCG #### [facility] [address] [place] [address] Credit Product Analyst: Roge Rios MD Microscopic Urinalysison Amorphous sediment LM Ql (Urine sed) 1+ Abnormal None [facility] Epithelial cells LM.HPF (Urine sed) [#/Area] 2 TO 5 [facility] Interpretation and review of laboratory results Abnormal [facility] Health RBC LM.HPF (Urine sed) [#/Area] 0 TO 2 [facility] Renal Epithelial, UA 2 TO 5 0 /HPF [facility] WBC LM.HPF (Urine sed) [#/Area] 5 TO 10 [facility] Health [facility] , Urineon HCG ( test) Ql (U) Negative NEGATIVE [facility] Comment on above: Specimens with hCG l evels near the threshold of the test (25 mIU/mL) may give a negative or indeterminate result. In such cases, another test should be performed with a new specimen in 48-72 hours. If early is suspected clinically in this setting, correlation with quantitative serum b-hCG level is suggested. [email or web address] has confirmed the use of plasma for this test. This has not been cleared or approved by the U.S. Food and Drug Administration. The FDA has determined that such clearance is not necessary. [facility] [place] Urinalysison 07-20-2024 Bilirubin Ql (U) Negative NEGATIVE [facility] [employer] Clarity (U) SLIGHTLY CLOUDY Abnormal Clear [facility] Color (U) Yellow Yellow [facility] Glucose Test strip (U) [Mass/Vol] Negative NEGATIVE mg/dL [facility] [place] Hemoglobin Auto test strip Ql (U) Negative NEGATIVE [facility] Interpretation and review of laboratory results Abnormal [facility] Ketones (U) [Mass/Vol] Negative NEGAT AUGUSTINE mg/dL [facility] Leukocyte esterase Test strip Ql (U) SMALL Abnormal NEGATIVE [facility] Nitrite Ql (U) Negative NEGATIVE [facility] pH (U) 8.0 [pH] 5.0 - 9.0 [facility] Protein (U) [Mass/Vol] Negative NEGAT AUGUSTINE mg/dL [facility] Specific gravity (U) [Rel density] 1.020 1.010 - 1.020 [facility] Urobilinogen Qn (U) Normal 0.0 - 1. 0 EU/dL [facility] Urinalysis, Routineon 2024 Bilirubin, SemiQt,Ur Negative Normal NEG [facility] Comment on above: Performed By: #### U A, UMICAO #### [facility] [address] [place] [address] [place] [place], [place] [phone] Credit Product Analyst: Roge Rios MD Blood, Urine Negative Normal [facility] Comment on above: Performed By: #### U A, UMICAO #### [facility] [address] [place] [address] [place] [place], [place] [phone] Credit Product Analyst: Roge Rios MD Clarity (U) SLIGHTLY CLOUDY Abnormal CLEAR [facility] Comment on above: Performed By: #### U A, UMICAO #### [facility] [address] [place] [address] [place] [place], [place] [phone] Credit Product Analyst: Roge Rios MD Color (U) Yellow Normal YEL [facility] Comment on above: Performed By: #### U A, UMICAO #### [facility] [address] [place] [address] [place] [place], [place] [phone] Credit Product Analyst: Roge Rios MD Glucose Ql (U) Negative Normal NEG [facility] Comment on above: Performed By: #### U A, UMICAO #### [facility] [address] [place] [address] [place] [place], [place] [phone] Credit Product Analyst: Roge Rios MD Ketones Ql (U) Negative Normal NEG [facility] Comment on above: Performed By: #### U A, UMICAO #### [facility] [address] [place] [address] [place] [place], [place] [phone] Credit Product Analyst: Roge Rios MD Leukocyte esterase Test strip Ql (U) SMALL Abnormal NEG [facility] Comment on above: Performed By: #### U A, UMICAO #### [facility] [address] [place] [address] [place] [place], [place] [phone] Credit Product Analyst: Roge Rios MD Nitrite,Ur Negative Normal NEG [facility] Comment on above: Performed By: #### U A, UMICAO #### [facility] [address] [place] [address] [place] [address] Credit Product Analyst: Roge Rios MD PH,Ur 8.0 Normal 5.0-9.0 [facility] Comment on above: Performed By: #### U A, UMICAO #### [address] [place] [address] Credit Product Analyst: Roge Rios MD Protein Ql (U) Negative Normal NEG [facility] Comment on above: Performed By: #### U A, UMICAO #### [address] [place], [place] [phone] Credit Product Analyst: Roge Rios MD Spec. [place],Ur 1.020 Normal 1.010-1.020 [facility] Comment on above: Performed By: #### U A, UMICAO #### [address] [place] [address] Credit Product Analyst: Roge Rios MD Urobilinogen,Ur Normal Normal 0.0-1.0 [facility] Comment on above: Performed By: #### U A, UMICAO #### [address] [place], [place] [phone] Credit Product Analyst: Roge Rios MD Urinalysis,Microon 5 Amorphous sediment LM Ql (Urine sed) 1+ Abnormal NONE [facility] Comment on above: Performed By: #### U A, UMICAO #### [address] [place], [place] [phone] Credit Product Analyst: Roge Rios MD Epithelial cells LM Ql (Urine sed) 2 TO 5 Normal 0-25 [facility] Comment on above: Performed By: #### U A, UMICAO #### [facility] [address] [place], [place] [phone] Credit Product Analyst: Roge Rios MD Epithelial, Renal 2 TO 5 Normal 0 [facility] Comment on above: Performed By: #### U A, UMICAO #### [facility] [address] [place], [place] [phone] Credit Product Analyst: Roge Rios MD Urine RBC's 0 TO 2 Normal 0-2 [facility] Comment on above: Performed By: #### U A, UMICAO #### [facility] [address] [place] [address] Credit Product Analyst: Roge Rios MD Urine WBC's 5 TO 10 Normal 0-5 [facility] Comment on above: Performed By: #### U A, UMICAO #### [facility] [address] [place], [place] [phone] Credit Product Analyst: Roge Rios MD COVID + FLU Quick Testingon 07-09-2023 SARS-CoV-2 (COVID-19) RNA THA+probe Ql (Unsp spec) Negative [facility] [employer] Other COVID + FLU Quick Testing Negative [facility] [employer] Other XR wrist LT min 3V*on 2022 XR wrist LT min 3V* [facility] [employer] Other XR wrist LT min 3V* [facility] [employer] Other XR wrist LT min 3V* [address] [place] [address] [employer] Other XR wrist LT min 3V* [place] [address] [facility] [employer] Other XR wrist LT min 3V* XRay Report [facility] [employer] Other XR wrist LT min 3V* Signed [employer] Other XR wrist LT min 3V* Patient: Edwige Patterson MR#: [id number] [employer] Other XR wrist LT min 3V* [id number] [employer] Other XR wrist LT min 3V* : 2000 Acct:[id number] [employer] Other XR wrist LT min 3V* Age/Sex: 22 / F ADM Date: 12/09/22 [employer] Other XR wrist LT min 3V* Loc: XDUCLY Room: Type: [facility] [employer] Other XR wrist LT min 3V* Attending Dr: Lexy BLAKE [employer] Other XR wrist LT min 3V* Copies to: LOU Hernandez [employer] Other XR wrist LT min 3V* Ordering Provider: LOU Hernandez [employer] Other XR wrist LT min 3V* Date of Service: 12/09/22 [employer] Other XR wrist LT min 3V* XR/XR wrist LT min 3V*: Left wrist pain [employer] Other XR wrist LT min 3V* ([id number]) XR/XR hand LT min 3V*: Left wrist pain [employer] Other XR wrist LT min 3V* 3 views LEFT hand plain film [employer] Other XR wrist LT min 3V* COMPARISON: None [employer] Other XR wrist LT min 3V* HISTORY: LEFT hand injury. Pain involving the distal middle finger. Dorsal wrist pain [employer] Other XR wrist LT min 3V* ACUTE FINDINGS: None [employer] Other XR wrist LT min 3V* DEGENERATIVE CHANGE: Unremarkable [employer] Other XR wrist LT min 3V* SOFT TISSUE FINDINGS : Unremarkable [employer] Other XR wrist LT min 3V* JOINT EFFUSION: None [employer] Other XR wrist LT min 3V* POSTOP CHANGES: None [employer] Other XR wrist LT min 3V* BONY MINERALIZATION: Adequate [employer] Other XR wrist LT min 3V* XR/XR hand LT min 3V* [employer] Other XR wrist LT min 3V* IMPRESSION: No acute findings [employer] Other XR wrist LT min 3V* 4 views LEFT wrist plain film [employer] Other XR wrist LT min 3V* BONE MINERALIZATION: Adequate [employer] Other XR wrist LT min 3V* IMPRESSION: No acute bony findings. [employer] Other XR wrist LT min 3V* Impression dictated by: Misbah Mast M.D.12/09/2022 11:59 AM [employer] Other XR wrist LT min 3V* Dictation Location: [place] [address] [employer] Other XR wrist LT min 3V* Transcribed By: DOMINIQUE 12/09/22 1159 [employer] Other XR wrist LT min 3V* Dictated By: Misbah Mast DO 12/09/22 1158 [employer] Other XR wrist LT min 3V* Signed By: [employer] Other XR wrist LT min 3V* 12/09/22 1159 No rt [employer] Other XR wrist LT min 3V* [facility] Main [employer] [address] [place] [address] XRay Report Signed Patient: Edwige Patterson MR#: [id number] : 2000 Acct:[id number] Age/Sex: 22 / F ADM Date: 12/09/22 Loc: XDUC Room: Type: [facility] Attending Dr: Lexy BLAKE Copies to: LOU Hernandez Ordering Provider: LOU Hernandez Date of Service: 12/09/22 XR/XR wrist LT min 3V*: Left wrist pain ([id number]) XR/XR hand LT min 3V*: Left wrist [...] Misbah Mast M.D.12/09/2022 11:59 AM Dictation Location: [place] [address] Transcribed By: [facility] 12/09/22 1159 Dictated By: Misbah Mast DO 12/09/22 1158 Signed By: 12/09/22 1159 Normal [facility] A1C with Estimated Average G ugo 08-14-2022 HbA1c (Bld) [Mass fraction] 5.200 % Normal 4.3-5.6 % [employer] Other HbA1c (Bld) [Mass fraction] 103 mg/dL [employer] Other Glucose [Mass/Vol] 103 mg/dL Normal [facility] Comment on above: Result Comment: PERF ORMED BY: [place] [address] PATHOLOGIST RESIDENTIAL SUPPORT SPECIALIST KULWANT GOMEZ M.D. Performed By: #### C BC, TSH3, CMP, A1C WTH eA, LIPID #### [facility] [address] HbA1c (Bld) [Mass fraction] 5.2 % Normal 4.3-5.6 [facility] Comment on above: Result Comment: Incr eased risk for diabetes: 5.7 - 6.4 diabetes: >6.4 glycemic control for adults with diabetes: <7.0 Performed By: #### C BC, TSH3, CMP, A1C WTH eA, LIPID #### [facility] [address] Albumin [Mass/volume] in Ser um or PlasmaOrdered By: Becky Romeo on 08-14-2022 Albumin [Mass/Vol] 3.9 g/dL 3.2-5.5 [facility] Basophils Auto (Bld) [#/Vol] Ordered By: Becky Romeo on 08-14-2022 Basophils (Bld) [#/Vol] 0.0 10*3/uL 0.0-0.2 [facility] Basophils/100 WBC Auto (Bld) Ordered By: Becky Romeo on 08-14-2022 Basophils/100 WBC (Bld) 0.6 % . [facility] Cholesterol [Mass/volume] in Serum or PlasmaOrdered By: Becky Romeo on 08-14-2022 Cholesterol [Mass/Vol] 195 mg/dL Normal 140-2 00 mg/dL [facility] Comment on above: Chol less than 200 m g/dl low riskChol 201-239 mg/dl borderline riskChol 240 mg/dl and greater high risk Cholesterol in LDL Calc [Mas s/Vol]Ordered By: Becky Romeo on 08-14-2022 Cholesterol in LDL [Mass/Vol] 146 mg/dL 0-100 [facility] Comment on above: LDL ATP III CLASSIFI CATIONLDL less than 100 mg/dL OptimalLDL 100-129 mg/dL Near or above optimalLDL 130-159 mg/dL Borderline highLDL 160-189 mg/dL HighLDL greater than 189 mg/dL Very high Cholesterol in VLDL Calc [Ma ss/Vol]Ordered By: Becky Romeo on 08-14-2022 Cholesterol in VLDL [Mass/Vol] 16 mg/dL [facility] Complete Blood Count Auto Di ffon 08-14-2022 Basophils (Bld) [#/Vol] 0.362952846 10*3/uL Normal 0.0-0.2 10*3/uL [employer] Other Basophils/100 WBC (Bld) 0.600 % . % [employer] Other Eosinophils (Bld) [#/Vol] 0.850867436 10*3/uL Normal 0.0-0.45 10*3/uL [employer] Other Eosinophils/100 WBC (Bld) 2.300 % . % [employer] Other Erythrocyte distribution width (RBC) [Ratio] 12.400 % Normal 11.9-15.3 % [employer] Other Hematocrit (Bld) [Volume fraction] 39.700 % Normal 34.0-46.4 % [employer] Other Hemoglobin (Bld) [Mass/Vol] 13.646212 g/dL Normal 11.8-15.4 g/dL [employer] Other Lymphocytes (Bld) [#/Vol] 1.155656881 10*3/uL Normal 1.00-4.8 10*3/uL [employer] Other Lymphocytes/100 WBC (Bld) 22.500 % . % [employer] Other MCH (RBC) [Entitic mass] 30.2000 pg Normal 24.7-34.3 pg [employer] Other MCV (RBC) [Entitic vol] 90.5000 fL Normal 80-100 fL [employer] Other Monocytes (Bld) [#/Vol] 0.749100998 10*3/uL Normal 0.0-0.8 10*3/uL [employer] Other Monocytes/100 WBC (Bld) 6.800 % . % [employer] Other Neutrophils (Bld) [#/Vol] 3.935852554 10*3/uL Normal 1.8-7.7 10*3/uL [employer] Other Neutrophils/100 WBC (Bld) 67.800 % . % [employer] Other Platelet mean volume (Bld) [Entitic vol] 9.0000 fL Normal 6.3-10.7 fL [employer] Other WBC (Bld) [#/Vol] 5.466527419 10*3/uL Normal 3.8 -11.6 10*3/uL [employer] Other Complete Blood Count Auto Diff 5.6 10*3/uL Normal 3.8-11.6 10*3/uL [employer] Other Complete Blood Count Auto Diff 33.4 g/dL Normal 32.0-35.0 g/dL [employer] Other Complete Blood Count Auto Diff 0.3 /100{WBC} Normal 0-0.5 /100{WBC} [employer] Other Basophils (Bld) [#/Vol] 0.0 10*3/uL Normal 0.0-0.2 [facility] Comment on above: Result Comment: PERF ORMED BY: [place] [address] PATHOLOGIST RESIDENTIAL SUPPORT SPECIALIST KULWANT GOMEZ M.D. Performed By: #### C BC, TSH3, CMP, A1C WTH eA, LIPID #### [facility] [address] [place] [address] [place] Basophils/100 WBC (Bld) 0.6 % Normal . [facility] Comment on above: Performed By: #### C BC, TSH3, CMP, A1C WTH eA, LIPID #### [facility] [address] [place] [address] [place] Eosinophils (Bld) [#/Vol] 0.1 10*3/uL Normal 0.0-0.45 [facility] Comment on above: Performed By: #### C BC, TSH3, CMP, A1C WTH eA, LIPID #### [facility] [address] [place] [address] [place] Eosinophils/100 WBC (Bld) 2.3 % Normal . [facility] Comment on above: Performed By: #### C BC, TSH3, CMP, A1C WTH eA, LIPID #### [place] [address] [place] Erythrocyte distribution width (RBC) [Ratio] 12.4 % Normal 11.9-15.3 [facility] Comment on above: Performed By: #### C BC, TSH3, CMP, A1C WTH eA, LIPID #### [place] [address] [place] Hematocrit (Bld) [Volume fraction] 39.7 % Normal 34.0-46.4 [facility] Comment on above: Performed By: #### C BC, TSH3, CMP, A1C WTH eA, LIPID #### [place] [address] [place] Hemoglobin (Bld) [Mass/Vol] 13.2 g/dL Normal 11.8-15.4 [facility] Comment on above: Performed By: #### C BC, TSH3, CMP, A1C WTH eA, LIPID #### [place] [address] [place] Lymphocytes (Bld) [#/Vol] 1.3 10*3/uL Normal 1.00-4.8 [facility] Comment on above: Performed By: #### C BC, TSH3, CMP, A1C WTH eA, LIPID #### [place] [address] [place] Lymphocytes/100 WBC (Bld) 22.5 % Normal . [facility] Comment on above: Performed By: #### C BC, TSH3, CMP, A1C WTH eA, LIPID #### [facility] [address] [place] [address] [place] MCH (RBC) [Entitic mass] 30.2 pg Normal 24.7-34.3 [facility] Comment on above: Performed By: #### C BC, TSH3, CMP, A1C WTH eA, LIPID #### [facility] [address] MCV (RBC) [Entitic vol] 90.5 fL Normal 80-100 [facility] Comment on above: Performed By: #### C BC, TSH3, CMP, A1C WTH eA, LIPID #### [address] Mean Corpuscular HGB Conc 33.4 g/dL Normal 32.0-35.0 [facility] Comment on above: Performed By: #### C BC, TSH3, CMP, A1C WTH eA, LIPID #### [facility] [address] [place] [address] [place] Monocytes (Bld) [#/Vol] 0.4 10*3/uL Normal 0.0-0.8 [facility] Comment on above: Performed By: #### C BC, TSH3, CMP, A1C WTH eA, LIPID #### [place] [address] [place] Monocytes/100 WBC (Bld) 6.8 % Normal . [facility] Comment on above: Performed By: #### C BC, TSH3, CMP, A1C WTH eA, LIPID #### [facility] [address] [place] [address] [place] Neutrophils (Bld) [#/Vol] 3.8 10*3/uL Normal 1.8-7.7 [facility] Comment on above: Performed By: #### C BC, TSH3, CMP, A1C WTH eA, LIPID #### [place] [address] [place] Neutrophils/100 WBC (Bld) 67.8 % Normal . [facility] Comment on above: Performed By: #### C BC, TSH3, CMP, A1C WTH eA, LIPID #### [facility] [address] NRBC% 0.3 /100{WBC} Normal 0-0.5 [facility] Comment on above: Performed By: #### C BC, TSH3, CMP, A1C WTH eA, LIPID #### [facility] [address] Platelet mean volume (Bld) [Entitic vol] 9.0 fL Normal 6.3-10.7 [facility] Comment on above: Performed By: #### C BC, TSH3, CMP, A1C WTH eA, LIPID #### [facility] [address] Platelets (Bld) [#/Vol] 232 10*3/uL Normal 150-450 [facility] Comment on above: Performed By: #### C BC, TSH3, CMP, A1C WTH eA, LIPID #### [facility] [address] RBC (Bld) [#/Vol] 4.38 10*6/uL Normal 3.60-5.00 [facility] Comment on above: Performed By: #### C BC, TSH3, CMP, A1C WTH eA, LIPID #### [facility] [address] WBC (Bld) [#/Vol] 5.6 10*3/uL Normal 3.8-11.6 [facility] Comment on above: Performed By: #### C BC, TSH3, CMP, A1C WTH eA, LIPID #### [facility] [address] Comprehensive Metabolic Pane amandeep 08-14-2022 Albumin [Mass/Vol] 3.523387 g/dL Normal 3.2-5.5 g/dL [facility] [employer] Other Bilirubin [Mass/Vol] 0.8515948 mg/dL Normal 0.3- 1.2 mg/dL [employer] Other Calcium [Mass/Vol] 9.3388573 mg/dL Normal 8.2-10 .2 mg/dL [employer] Other CO2 [Moles/Vol] 23.69589742 mmol/L Normal 22.0-3 0.0 mmol/L [employer] Other Creatinine [Mass/Vol] 0.67643188 mg/dL Normal 0. 44-1.03 mg/dL [employer] Other Potassium [Moles/Vol] 3.53047245 mmol/L Normal 3 .5-5.1 mmol/L [employer] Other Protein [Mass/Vol] 6.379143 g/dL Normal 6.1-7.9 g/dL N [facility] [employer] Other Comprehensive Metabolic Panel > 60 [employer] Other Comprehensive Metabolic Panel 2.7 g/dL [employer] Other Albumin [Mass/Vol] 3.9 g/dL Normal 3.2-5.5 [facility] Comment on above: Performed By: #### C BC, TSH3, CMP, A1C WTH eA, LIPID #### [facility] [address] [place] [address] [place] Albumin/Globulin [Mass ratio] 1.4 {ratio} Normal [facility] Comment on above: Performed By: #### C BC, TSH3, CMP, A1C WTH eA, LIPID #### [facility] [address] [place] [address] [place] ALP [Catalytic activity/Vol] 69 U/L Normal 32-92 [facility] Comment on above: Performed By: #### C BC, TSH3, CMP, A1C WTH eA, LIPID #### [facility] [address] [place] [address] [place] ALT [Catalytic activity/Vol] 34 U/L Normal 10-60 [employer] Other Comment on above: Performed By: #### C BC, TSH3, CMP, A1C WTH eA, LIPID #### [facility] [address] Anion gap [Moles/Vol] 9.7 mmol/L Normal 6.0-15.0 [facility] Comment on above: Performed By: #### C BC, TSH3, CMP, A1C WTH eA, LIPID #### [facility] [address] AST [Catalytic activity/Vol] 30 U/L Normal 10-42 [facility] Comment on above: Performed By: #### C BC, TSH3, CMP, A1C WTH eA, LIPID #### [facility] [address] Bilirubin [Mass/Vol] 0.7 mg/dL Normal 0.3-1.2 [facility] Comment on above: Performed By: #### C BC, TSH3, CMP, A1C WTH eA, LIPID #### [facility] [address] Calcium [Mass/Vol] 9.2 mg/dL Normal 8.2-10.2 [facility] Comment on above: Performed By: #### C BC, TSH3, CMP, A1C WTH eA, LIPID #### [facility] [address] [place] [address] [place] Chloride [Moles/Vol] 108 mmol/L Normal 95-114 [facility] Comment on above: Performed By: #### C BC, TSH3, CMP, A1C WTH eA, LIPID #### [facility] [address] [place] [address] [place] CO2 [Moles/Vol] 23.1 mmol/L Normal 22.0-30.0 [facility] Comment on above: Performed By: #### C BC, TSH3, CMP, A1C WTH eA, LIPID #### [facility] [address] [place] [address] [place] Creatinine [Mass/Vol] 0.75 mg/dL Normal 0.44-1.03 [facility] Comment on above: Performed By: #### C BC, TSH3, CMP, A1C WTH eA, LIPID #### [facility] [address] [place] [address] [place] Estimated GFR ( Queenie > 60 [facility] Comment on above: Result Comment: GFR estimated reference range: According to KDOQI guidelines, <60 ml/min/1.73m2 is sufficient to diagnose a patient with chronic kidney disease. Performed By: #### C BC, TSH3, CMP, A1C WTH eA, LIPID #### [facility] [address] [place] [address] [place] Estimated GFR (Non- Am > 60 [facility] Comment on above: Performed By: #### C BC, TSH3, CMP, A1C WTH eA, LIPID #### [facility] [address] Globulin (S) [Mass/Vol] 2.7 g/dL Normal [facility] Comment on above: Performed By: #### C BC, TSH3, CMP, A1C WTH eA, LIPID #### [facility] [address] Glucose [Mass/Vol] 87 mg/dL Normal 70-100 [facility] Comment on above: Result Comment: [place] Glucose Reference Range is dependent on time and content of last meal. Glucose of more than 200 mg/dL in a nonstressed, ambulatory subject supports the diagnosis of Diabetes Mellitus. ADA recommended reference range Performed By: #### C BC, TSH3, CMP, A1C WTH eA, LIPID #### [facility] [address] Potassium [Moles/Vol] 3.8 mmol/L Normal 3.5-5.1 [facility] Comment on above: Performed By: #### C BC, TSH3, CMP, A1C WTH eA, LIPID #### [facility] [address] Protein [Mass/Vol] 6.6 g/dL Normal 6.1-7.9 [facility] Comment on above: Performed By: #### C BC, TSH3, CMP, A1C WTH eA, LIPID #### [facility] [address] [place] [address] [place] Sodium [Moles/Vol] 137 mmol/L Normal 136-146 [facility] Comment on above: Performed By: #### C BC, TSH3, CMP, A1C WTH eA, LIPID #### [facility] [address] [place] [address] [place] Urea nitrogen [Mass/Vol] 5 mg/dL Low 9-23 [facility] Comment on above: Performed By: #### C BC, TSH3, CMP, A1C WT eA, LIPID #### [facility] [address] [place] [address] [place] Creatinine and Glomerular fi ltration rate.predicted panel (S/P/Bld)Ordered By: Becky Romeo on 08-14-2022 Creatinine [Mass/Vol] 0.75 mg/dL 0.44-1.03 [facility] Eosinophils Auto (Bld) [#/Vo l]Ordered By: Becky Romeo on 08-14-2022 Eosinophils (Bld) [#/Vol] 0.1 10*3/uL 0.0-0.45 [facility] Eosinophils/100 WBC Auto (Bl d)Ordered By: Becky Romeo on 08-14-2022 Eosinophils/100 WBC (Bld) 2.3 % . [facility] Erythrocyte distribution wid th Auto (RBC) [Ratio]Ordered By: Becky Romeo on 08-14-2022 Erythrocyte distribution width (RBC) [Ratio] 12.4 % 11.9-15.3 [facility] Erythrocytes [#/volume] in B lood by Automated countOrdered By: Becky Romeo on 08-14-2022 RBC (Bld) [#/Vol] 4.38 10*6/uL Normal 3.60-5.00 [facility] Estimated glomerular filtrat ion rate (GFR) non- AmericanOrdered By: Becky Romeo on 08-14-2022 GFR/1.73 sq M.predicted among non-blacks MDRD (S/P/Bld) [Vol rate/Area] > 60 mL/Min [facility] Globulin Calc (S) [Mass/Vol] Ordered By: Becky Romeo on 08-14-2022 Globulin (S) [Mass/Vol] 2.7 g/dL [facility] Hematocrit Auto (Bld) [Volum e fraction]Ordered By: Becky Romeo on 08-14-2022 Hematocrit (Bld) [Volume fraction] 39.7 % 34.0-46.4 [facility] Hemoglobin [Mass/volume] in BloodOrdered By: Becky Romeo on 08-14-2022 Hemoglobin (Bld) [Mass/Vol] 13.2 g/dL 11.8-15.4 [facility] Leukocytes [#/volume] correc kalyani for nucleated erythrocytes in Blood by Automated counOrdered By: Becky Romeo on 08-14-2022 WBC corrected for nucl RBC Auto (Bld) [#/Vol] 5.6 10*3/uL 3.8-11.6 [facility] Lipid Panelon 08-14-2022 Cholesterol in LDL Elph Qn 146 mg/dL High 0-100 mg/dL [facility] [employer] Other Lipid Panel 84 mg/dL Normal 35-149 mg/dL [facility] [employer] Other Lipid Panel 16 mg/dL [facility] [employer] Other Cholesterol [Mass/Vol] 195 mg/dL Normal 140-200 [facility] Comment on above: Result Comment: Chol less than 200 mg/dl low risk Chol 201-239 mg/dl borderline risk Chol 240 mg/dl and greater high risk Performed By: #### C BC, TSH3, CMP, A1C WTH eA, LIPID #### [facility] [address] [place] [id number] [facility] Cholesterol in HDL [Mass/Vol] 32 mg/dL Low 35-85 [facility] Comment on above: Result Comment: HDL CHOL ATP-III CLASSIFICATION Cardiovascular Risk HDL > or equal to 60 mg/dL LOW HDL < 40 mg/dL HIGH Performed By: #### C BC, TSH3, CMP, A1C WTH eA, LIPID #### [facility] [address] Cholesterol.total/Vero sterol in HDL [Mass ratio] 6.1 {ratio} Normal <5.0 [facility] Comment on above: Performed By: #### C BC, TSH3, CMP, [address] eA, LIPID #### [facility] [address] LDL Cholesterol,Calculated 146 mg/dL High 0-100 [facility] Comment on above: Result Comment: LDL ATP III CLASSIFICATION LDL less than 100 mg/dL Optimal LDL 100-129 mg/dL Near or above optimal LDL 130-159 mg/dL Borderline high LDL 160-189 mg/dL High LDL greater than 189 mg/dL Very high Performed By: #### C BC, TSH3, CMP, A1C [facility] eA, LIPID #### [facility] [address] Triglyceride w/Reflex 84 mg/dL Normal 35-149 [facility] Comment on above: Result Comment: TRIG ATP III CLASSIFICATION TRIG less than 150 mg/dL Normal TRIG 150-199 mg/dL Borderline high TRIG 200-500 mg/dL High TRIG greater than 500 mg/dL Very high Standard traceable to the Center for Disease Conrtrol and Prevention (CDC) test method. Performed By: #### C BC, TSH3, CMP, A1C [facility] eA, LIPID #### [facility] [address] VLDL CHOLESTEROL 16 mg/dL Normal [facility] Comment on above: Performed By: #### C BC, TSH3, CMP, [address] eA, LIPID #### [facility] [address] [place] [address] [place] Lymphocytes Auto (Bld) [#/Vo l]Ordered By: Becky Romeo on 08-14-2022 Lymphocytes (Bld) [#/Vol] 1.3 10*3/uL 1.00-4.8 [facility] Lymphocytes/100 WBC Auto (Bl d)Ordered By: Becky Romeo on 08-14-2022 Lymphocytes/100 WBC (Bld) 22.5 % . [facility] MCH Auto (RBC) [Entitic mass ]Ordered By: Becky Romeo on 08-14-2022 MCH (RBC) [Entitic mass] 30.2 pg 24.7-34.3 [facility] MCHC Auto (RBC) [Mass/Vol]Or dered By: Becky Romeo on 08-14-2022 MCHC (RBC) [Mass/Vol] 33.4 g/dL 32.0-35.0 [facility] MCV Auto (RBC) [Entitic vol] Ordered By: Becky Romeo on 08-14-2022 MCV (RBC) [Entitic vol] 90.5 fL 80-100 [facility] Monocytes Auto (Bld) [#/Vol] Ordered By: Becky Romeo on 08-14-2022 Monocytes (Bld) [#/Vol] 0.4 10*3/uL 0.0-0.8 [facility] Monocytes/100 WBC Auto (Bld) Ordered By: Becky Romeo on 08-14-2022 Monocytes/100 WBC (Bld) 6.8 % . [facility] Neutrophils Auto (Bld) [#/Vo l]Ordered By: Becky Romeo on 08-14-2022 Neutrophils (Bld) [#/Vol] 3.8 10*3/uL 1.8-7.7 [facility] Neutrophils/100 WBC Auto (Bl d)Ordered By: Becky Romeo on 08-14-2022 Neutrophils/100 WBC (Bld) 67.8 % . [facility] No Panel InformationOrdered By: Becky Rmoeo on 08-14-2022 Estimated GFR () > 60 mL/Min [facility] Comment on above: GFR estimated refere nce range: According to KDOQI guidelines, <60 ml/min/1.73m2 is sufficient to diagnose a patient with chronic kidney disease. Pharmacy Creatinine Clearance (Chem N/A [facility] Nucleated erythrocytes [Pres ence] in Blood by Automated countOrdered By: Becky Romeo on 08-14-2022 Nucleated RBC Auto Ql (Bld) 0.3 /100{WBC} 0-0.5 [facility] Platelet mean volume Auto (B ld) [Entitic vol]Ordered By: Becky Romeo on 08-14-2022 Platelet mean volume (Bld) [Entitic vol] 9.0 fL 6.3-10.7 [facility] Platelets [#/volume] in Bloo d by Automated countOrdered By: Becky Romeo on 08-14-2022 Platelets (Bld) [#/Vol] 232 10*3/uL Normal 150- 450 10*3/uL [facility] Protein [Mass/volume] in Ser um or PlasmaOrdered By: Becky Romeo on 08-14-2022 Protein [Mass/Vol] 6.6 g/dL 6.1-7.9 [facility] Serum or plasma alanine kinsey otransferase measurement without P-5'-P (enzymatic activiOrdered By: Becky Romeo on 08-14-2022 ALT No additional P-5'-P [Catalytic activity/Vol] 34 U/L 10-60 [facility] Serum or plasma albumin/glob ulin mass ratioOrdered By: Becky Romeo on 08-14-2022 Albumin/Globulin [Mass ratio] 1.4 {ratio} [facility] Serum or plasma alkaline jean claude sphatase measurement (enzymatic activity/volume)Ordered By: Becky Romeo on 08-14-2022 ALP [Catalytic activity/Vol] 69 U/L Normal 32-92 U/L [facility] Serum or plasma anion gap de terminationOrdered By: Becky Romeo on 08-14-2022 Anion gap [Moles/Vol] 9.7 mmol/L 6.0-15.0 [facility] Serum or plasma aspartate am inotransferase measurement (enzymatic activity/volume)Ordered By: Becky Romeo on 08-14-2022 AST [Catalytic activity/Vol] 30 U/L Normal 10-42 U/L [facility] Serum or plasma calcium daily urement (mass/volume)Ordered By: Becky Romeo on 08-14-2022 Calcium [Mass/Vol] 9.2 mg/dL 8.2-10.2 [facility] Serum or plasma chloride julisa surement (moles/volume)Ordered By: Becky Romeo on 08-14-2022 Chloride [Moles/Vol] 108 mmol/L Normal 95-114 mmol/L [facility] Serum or plasma glucose daily urement (mass/volume)Ordered By: Becky Romeo on 08-14-2022 Glucose [Mass/Vol] 87 mg/dL Normal 70-100 mg/dL [facility] Comment on above: ADA recommended refe rence rangeRandom Glucose Reference Range is dependent on time and content of last meal. Glucose of more than 200 mg/dL in a nonstressed, ambulatory subject supports the diagnosis of Diabetes Mellitus. Serum or plasma high density lipoprotein (HDL) cholesterol measurementOrdered By: Becky Romeo on 08-14-2022 Cholesterol in HDL [Mass/Vol] 32 mg/dL Low 35-85 mg/dL [facility] Comment on above: HDL CHOL ATP-III CLA SSIFICATION Cardiovascular RiskHDL > or equal to 60 mg/dL LOWHDL < 40 mg/dL HIGH Serum or plasma potassium me asurement (moles/volume)Ordered By: Becky Romeo on 08-14-2022 Potassium [Moles/Vol] 3.8 mmol/L 3.5-5.1 [facility] Serum or plasma sodium measu rement (moles/volume)Ordered By: Becky Romeo on 08-14-2022 Sodium [Moles/Vol] 137 mmol/L Normal 136-146 mmol/L [facility] Serum or plasma total biliru bin measurement (mass/volume)Ordered By: Becky Romeo on 08-14-2022 Bilirubin [Mass/Vol] 0.7 mg/dL 0.3-1.2 [facility] Serum or plasma total carbon dioxide measurement (moles/volume)Ordered By: Becky Romeo on 08-14-2022 CO2 [Moles/Vol] 23.1 mmol/L 22.0-30.0 [facility] Serum or plasma total choles terol/high density lipoprotein (HDL) cholesterol mass ratOrdered By: Becky Romeo on 08-14-2022 Cholesterol.total/Vero sterol in HDL [Mass ratio] 6.1 {ratio} <5.0 [facility] Serum or plasma urea nitroge n measurement (mass/volume)Ordered By: Becky Romeo on 08-14-2022 Urea nitrogen [Mass/Vol] 5 mg/dL Low 9-23 mg/dL [facility] TSH DL <= 0.005 mIU/L QnOrde red By: Becky Romeo on 08-14-2022 TSH Qn 1.77 m[IU]/L 0.45-5.33 [facility] Thyroid Stimulating Hormoneo n 08-14-2022 TSH Qn 1.77 m[IU]/L Normal 0.45-5.33 [facility] Comment on above: Result Comment: PERF ORMED BY: [place] [address] PATHOLOGIST RESIDENTIAL SUPPORT SPECIALIST KULWANT GOMEZ M.D. Performed By: #### C BC, TSH3, CMP, A1C WTH eA, LIPID #### [facility] [address] [place] [address] [place] Triglyceride [Mass/volume] i n Serum or PlasmaOrdered [...] (Bld) [#/Vol] 5.6 10*3/uL 3.8-11.6 [facility] XR chest 2V*on 08-13-2022 XR chest 2V* [facility] Main [address] [place] [address] XRay Report Signed Patient: Edwige Patterson MR#: [id number] : 2000 Acct:[id number] Age/Sex: 22 / F ADM Date: 08/13/22 Loc: [facility] Room: Type: REG CLI Attending Dr: Becky Romeo DO Copies to: [...] Misbah Mast M.D.08/13/2022 3:23 PM Dictation Location: [place] [address] Transcribed By: [facility] 08/13/22 1523 Dictated By: Misbah Mast DO 08/13/22 1522 Signed By: 08/13/22 1523 [facility] XR chest 2V* [facility] [employer] Other XR chest 2V* [facility] Main [facility] [employer] Other XR chest 2V* [address] [place] [address] [employer] Other XR chest 2V* [place] [address] [facility] [employer] Other XR chest 2V* XRay Report [employer] Other XR chest 2V* Signed [employer] Other XR chest 2V* Patient: Edwige Patterson MR#: [id number] [employer] Other XR chest 2V* [id number] [employer] Other XR chest 2V* : 2000 Acct:[id number] [employer] Other XR chest 2V* Age/Sex: 22 / F ADM Date: 08/13/22 [employer] Other XR chest 2V* Loc: [facility] Room: Type : REG CLI [employer] Other XR chest 2V* Attending Dr: Diane Romeo DO [employer] Other XR chest 2V* Copies to: Becky Romeo, DO [employer] Other XR chest 2V* Ordering Provider: Becky Romeo DO [employer] Other XR chest 2V* Date of Service: 08/13/22 [employer] Other XR chest 2V* XR/XR chest 2V*: Cough, unspecified type [employer] Other XR chest 2V* Plain film chest2 view [employer] Other XR chest 2V* HISTORY:Productive cough. Wheezing. [employer] Other XR chest 2V* COMPARISON:None [facility] [employer] Other XR chest 2V* FINDINGS: The cardiac, mediastinal and hilar silhouettes are within normal limits. No acute lung [employer] Other XR chest 2V* process, pleural effusion or pneumothorax identified. Bony structures are intact. [employer] Other XR chest 2V* XR/XR chest 2V* [employer] Other XR chest 2V* IMPRESSION: No acute process. [employer] Other XR chest 2V* Impression dictated by: Misbah Mast M.D.08/13/2022 3:23 PM [employer] Other XR chest 2V* Dictation Location: [place] [address] [employer] Other XR chest 2V* Transcribed By: DOMINIQUE 08/13/22 1523 [employer] Other XR chest 2V* Dictated By: Misbah Mast DO 08/13/22 1522 [employer] Other XR chest 2V* Signed By: [employer] Other XR chest 2V* 08/13/22 1523 [employer] [facility] [employer] Other Quick Strepon 02-08-2022 S. pyogenes Org specific cx Ql (Throat) Positive [facility] [employer] Other Quick Strep [employer] Other COVID Quick Testingon 2021 Result Negative [employer] Other COVID + FLU Quick Testingon 07-03-2021 SARS-CoV-2 (COVID-19) RNA THA+probe Ql (Unsp spec) Positive [employer] Other COVID + FLU Quick Testing Negative [employer] Other Q - THINPREP(R) TIS AND HPV MRNA E6/E7 RFL HPV 16/18/45on 06-20-2021 CLINICAL INFORMATION: None given Normal [facility] Specialist Comment on above: Order Comment: [facility] Testing performed at: [facility], [address] [place] [address], [address] [place] [address], [phone], Poker Room Manager: Ramana Talyor MD Testing performed at: [facility], [address] [place] [address], [phone], Poker Room Manager: Mani Anderson [facility] Collection Date/Time: [id number] [facility] Results Received Date/Time: [id number] [facility] Reported Date/Time: FASTING: UNKNOWN Result Comment: [[employer] ] Performed By: #### 9 1414 #### [facility] Default [address] [place] [address] COMMENT SEE NOTE Normal [facility] Aircraft Engine Installer Comment on above: Order Comment: [facility] Testing performed at: [facility], [address] [place] [address], [address] [place] [address], [address] [place] [address], Poker Room Manager: Ramana Taylor MD Testing performed at: [facility], [address] [place], [phone], Poker Room Manager: Mani Anderson [facility] Collection Date/Time: [facility] [...] 9 1414 #### [facility] Default [address] [place] [address] COMMENT: This Pap test has been evaluated with computer assisted technology. Normal [facility] [employer] Comment on above: Order Comment: [facility] Testing performed at: [facility], [address] [place] [address], [address] [place] [address], [address] [place] [address], Poker Room Manager: Ramana Taylor MD Testing performed at: [facility], [address] [place] [address], [phone], Poker Room Manager: Mani Anderson [facility] Collection Date/Time: [facility] Results Received Date/Time: [facility] Reported Date/Time: FASTING: UNKNOWN Result Comment: [QBU ] Performed By: #### 9 1414 #### [facility] Default [address] [place] [address] ORGAN ASSEMBLER: SEE NOTE Normal See Note: [facility] Specialist Comment on above: Order Comment: [facility] Testing performed at: [facility], [address] [place] [address], [address] [place] [address], [phone], Poker Room Manager: Ramana Taylor MD Testing performed at: [facility], [address] [place], [place], [address] [place] [address], Poker Room Manager: Mani Anderson [facility] Collection Date/Time: [facility] Results Received Date/Time: [facility] Reported Date/Time: FASTING: UNKNOWN Result Comment: Mercedese prema Range: ZL, CT(ASCP) CT screening location: [place] [address]. [QBU] Performed By: #### 9 1414 #### [facility] Default [address] [place] [address] GENERAL CATEGORIZATION: EPITHELIAL CELL ABNORMALITY Abnormal [facility] Comment on above: Order Comment: [facility] Testing performed at: [employer], [address] [place] [address], Poker Room Manager: Ramana Taylor MD Testing performed at: [employer] [facility], [address] [place] [address], [address] [place] [address], Poker Room Manager: Mani Anderson [facility] Collection Date/Time: [facility] Results Received Date/Time: [facility] Reported Date/Time: FASTING: UNKNOWN Result Comment: [QBU ] Performed By: #### 9 1414 #### [facility] Default [address] [place] [address] HPV mRNA E6/E7 Detected Abnormal Not Detected [facility] Comment on above: Order Comment: [facility] Testing performed at: [facility], [address] [place] [address], [address] [place] [address], Poker Room Manager: Ramana Taylor MD Testing performed at: [employer], [facility], [address] [place] [address], [address] [place] [address], Poker Room Manager: Mani Anderson [facility] Collection Date/Time: [facility] Results Received Date/Time: [facility] Reported Date/Time: FASTING: UNKNOWN Result Comment: Meth odology: Belt Weaver-Mediated Amplification This assay detects E6/E7 viral messenger RNA (mRNA) from 14 high-risk HPV types (16,18,31,33,35,39,45,51,52,56,58,59,66,68). The analytical performance characteristics of this assay have been determined by [employer]. The modifications have not been cleared or approved by the FDA. This assay has been validated pursuant to the CLIA regulations and is used for clinical purposes. For additional information, please refer to http://education.Bfly/faq/FHD770v2 (This link if provided for information/ educational purposes only.) [O6K] Performed By: #### 9 1414 #### [facility] Default [address] [place] [address] INTERPRETATION/RESULT: Atypical Squamous Cells of Undetermined Significance (ASC-US) Abnormal [facility] Comment on above: Order Comment: [facility] Testing performed at: [facility], [address] [place] [address], [address] [place] [address], Poker Room Manager: Ramana Taylor MD Testing performed at: [facility], [address] [place] [address], [address] [place] [address], Poker Room Manager: Mani Anderson [facility] Collection Date/Time: [facility] Results Received Date/Time: [facility] Reported Date/Time: FASTING: UNKNOWN Result Comment: [QBU ] Performed By: #### 9 1414 #### [facility] Default [address] [place] [address] LMP: None given Normal [facility] Comment on above: Order Comment: [facility] Testing performed at: [facility], [address] [place] [address], [address] [place] [address], Poker Room Manager: Ramana Taylor MD Testing performed at: [facility], [address] [place] [address], [phone], Poker Room Manager: Mani Anderson [facility] Collection Date/Time: [id number] [facility] Results Received Date/Time: [facility] Reported Date/Time: FASTING: UNKNOWN Result Comment: [QBU ] Performed By: #### 9 1414 #### [facility] Default [address] [place] [address] PATHOLOGIST: SEE NOTE Normal [facility] Specialist Comment on above: Order Comment: [facility] Testing performed at: [employer], [facility], [address] [place] [address], [address] [place] [address], [address] [place] [address], Poker Room Manager: Ramana Taylor MD Testing performed at: [facility] [facility], [address] [place] [address], [address] [place] [address], Poker Room Manager: Mani Anderson Quest Collection Date/Time: [facility] Results Received Date/Time: [facility] Reported Date/Time: FASTING: UNKNOWN Result Comment: Vance Anderson MD, PhD, M.B.A. Board Certified in Anatomic and Clinical Pathology Board Certified in Cytopathology (electronic signature) For questions regarding this report call Anatomic Pathology at [phone] [BU] Performed By: #### 9 [id number] #### [facility] Default [address] [place] [address] PREV. BX: None given [facility] Comment on above: Order Comment: Quest Testing performed at: [employer], [facility], [address] [place] [address], [address] [place] [address], [address] [place] [address], Poker Room Manager: Ramana Taylor MD Testing performed at: [facility], [address] [place] [address], [address] [place] [address], Poker Room Manager: Mani Anderson Quest Collection Date/Time: [facility] Results Received Date/Time: [facility] Reported Date/Time: FASTING: UNKNOWN Result Comment: [QBU ] Performed By: #### 9 1414 #### [facility] Default [address] [place] [id number] PREV. PAP: None given Normal [facility] Comment on above: Order Comment: Quest Testing performed at: [employer], [facility], [address] [place] [address], [address] [place] [address], [address] [place] [address], Poker Room Manager: Ramana Taylor MD Testing performed at: , [facility], [address] [place] [address], [address] [place] [address], Poker Room Manager: Mani Anderson Quest Collection Date/Time: Quest Results Received Date/Time: [facility] Reported Date/Time: FASTING: UNKNOWN Result Comment: [QBU ] Performed By: #### 9 1414 #### [facility] Default [address] [place] [address] SOURCE: None given Normal [employer] Comment on above: Order Comment: Quest Testing performed at: [employer], [facility], [address] [place] [address], [address] [place] [address], [address] [place] [address], Poker Room Manager: Ramana Taylor MD Testing performed at: [employer], [facility], [address] [place] [address], [address] [place] [address], Poker Room Manager: Mani Anderson Quest Collection Date/Time: [facility] Results Received Date/Time: [facility] Reported Date/Time: FASTING: UNKNOWN Result Comment: [QBU ] Performed By: #### 9 1414 #### [facility] Default [address] [place] [address] STATEMENT OF ADEQUACY: SEE NOTE Normal [facility] Comment on above: Order Comment: [facility] Testing performed at: [employer], [facility], [address] [place] [address], [address] [place] [address], [address] [place] [address], Poker Room Manager: Ramana Taylor MD Testing performed at: [facility], [address] [place] [address], [address] [place] [address], Poker Room Manager: Mani Anderson Quest Collection Date/Time: [id number] Quest Results Received Date/Time: [facility] Reported Date/Time: FASTING: UNKNOWN Result Comment: Sati sfactory for evaluation. Endocervical/transformation zone component present. [QBU] Performed By: #### 9 1414 #### [facility] Default [address] [place] [address] XR Finger Lefton 06-20-2021 XR Finger Left FINDINGS: PIP soft tissue swelling. Minimally distracted volar plate fracture, middle phalangeal base. Minimal arthritis. IMPRESSION: Minimally distracted 4th PIP joint volar plate fracture Report reported and signed by Hubert Lewis on 06/20/2021 1443 Normal [facility] [employer] PREG HCG QUALon 05-19-2020 , QUAL Negative Normal NEGATIVE [facility] Comment on above: Performed By: #### P REG #### [facility] [address] [id number] Liam Ayala COVID-19 PCRon 05-14-2020 SARS-CoV-2 (COVID-19) RNA THA+probe Ql (Unsp spec) Not detected Normal Not Detected [facility] Comment on above: Result Comment: This nucleic acid amplification test was developed and its performance characteristics determined by [employer]. Nucleic acid amplification tests include PCR and [...] Performed By: #### C VDSTAT, CVDPCR #### [facility] [address] [id number] Liam Lucy PRIORITY COVID PROCESSINGon 05-14-2020 Comment Comment Normal [facility] Comment on above: Result Comment: Rece ived Performed By: #### C VDSTAT, CVDPCR #### [facility] [address] [id number] Liam Ayala Vital Signs Date Time Vital Sign Value Performing Clinician Facility 02-14-2025 17:17-0400 Body height 167.6 cm Jovita Salas CNM Work Phone: [facility] 02-14-2025 17:17-0400 Body mass index (BMI) [Ratio] 38.9 kg/m2 Jovita Rosarioo CNM Work Phone: [facility] 02-14-2025 17:17-0400 Body weight 109.32 kg Jovita Rosarioo CNM Work Phone: [facility] 02-14-2025 17:17-0400 Diastolic blood pressure 78 mm[Hg] Jovita Floro CNM Work Phone: [facility] 02-14-2025 17:17-0400 Heart rate 78 /min Jovita Rosarioo CNM Work Phone: [facility] 02-14-2025 17:17-0400 Respiratory rate 18 /min Jovita Rosarioo CNM Work Phone: [facility] 02-14-2025 17:17-0400 SaO2% (BldA) [Mass fraction] 98 % Jovitamelita Rosarioo CNM Work Phone: [facility] 02-14-2025 17:17-0400 Systolic blood pressure 130 mm[Hg] Jovita Rosarioo CNM Work Phone: [facility] 01-11-2025 09:15-0400 Body height 170.18 cm Becky Pierrefariba DO Work Phone: [facility] 01-11-2025 09:15-0400 Body mass index (BMI) [Ratio] 37.6 kg/m2 Becky Ousmane DO Work Phone: [facility] 01-11-2025 09:15-0400 Body weight 109.1 kg Becky Ousmane DO Work Phone: [facility] 12-03-2024 14:00-0400 Heart rate 90 /min Ness Majors PANEL COVERER Work Phone: [facility] 12-03-2024 13:44-0400 Body height 167.6 cm Ness Montez PANEL COVERER Work Phone: [facility] 12-03-2024 13:44-0400 Body mass index (BMI) [Ratio] 39.38 kg/m2 Ness Montez PANEL COVERER Work Phone: [facility] 12-03-2024 13:44-0400 Body weight 110.68 kg Ness Montez PANEL COVERER Work Phone: [facility] 12-03-2024 13:44-0400 Diastolic blood pressure 82 mm[Hg] Ness Montez PANEL COVERER Work Phone: [facility] 12-03-2024 13:44-0400 Respiratory rate 18 /min Ness Montez PANEL COVERER Work Phone: [facility] 12-03-2024 13:44-0400 SaO2% (BldA) [Mass fraction] 97 % Ness Montez PANEL COVERER Work Phone: [facility] 12-03-2024 13:44-0400 Systolic blood pressure 134 mm[Hg] Ness Montez PANEL COVERER Work Phone: [facility] 11-24-2024 13:12-0400 SaO2% (BldA) [Mass fraction] 94 % Becky Ousmane DO Work Phone: [facility] 11-24-2024 13:00-0400 Body temperature 98.01 [degF] Becky Romeo DO Work Phone: [facility] 11-24-2024 13:00-0400 Diastolic blood pressure 76 mm[Hg] Becky Romeo DO Work Phone: [facility] 11-24-2024 13:00-0400 Heart rate 89 /min Becky Romeo DO Work Phone: [facility] 11-24-2024 13:00-0400 Respiratory rate 16 /min Becky Romeo DO Work Phone: [facility] 11-24-2024 13:00-0400 Systolic blood pressure 117 mm[Hg] Becky Romeo DO Work Phone: [facility] 08-10-2024 16:06-0500 Body height 167.6 cm Jovita Salas [facility] Work Phone: [facility] 08-10-2024 16:06-0500 Body mass index (BMI) [Ratio] 39.64 kg/m2 Jovita Salas [facility] Work Phone: [facility] 08-10-2024 16:06-0500 Body weight 111.4 kg Jovita Salas [facility] Work Phone: [facility] 08-10-2024 16:06-0500 Diastolic blood pressure 70 mm[Hg] [facility] 08-10-2024 16:06-0500 Systolic blood pressure 118 mm[Hg] [facility] 08-05-2024 10:19-0500 Body temperature 98.4 [degF] Priyank Gaspar MD Work Phone: [facility] 08-05-2024 10:19-0500 Diastolic blood pressure 56 mm[Hg] Priyank Gaspar MD Work Phone: [facility] 08-05-2024 10:19-0500 Heart rate 114 /min Priyank Gaspar MD Work Phone: [facility] 08-05-2024 10:19-0500 Respiratory rate 18 /min Priyank Gaspar MD Work Phone: [facility] 08-05-2024 10:19-0500 SaO2% (BldA) [Mass fraction] 97 % Priyank Gaspar MD Work Phone: [facility] 08-05-2024 10:19-0500 Systolic blood pressure 97 mm[Hg] Priyank Gaspar MD Work Phone: [facility] [employer] 07-20-2024 18:12-0500 SaO2% (BldA) [Mass fraction] 97 % Yoli Lal MD Work Phone: [facility] [employer] 07-20-2024 15:37-0500 Body height 170.2 cm [facility] 07-20-2024 15:37-0500 Body mass index (BMI) [Ratio] 37.59 kg/m2 Yoli Lal MD [facility] 07-20-2024 15:37-0500 Body temperature 98.29 [degF] Yoli Lal MD [facility] 07-20-2024 15:37-0500 Body weight 108.86 kg Yoli Lal MD Work Phone: [facility] [employer] 07-20-2024 15:37-0500 Diastolic blood pressure 76 mm[Hg] Yoli Lal MD Work Phone: [facility] [employer] 07-20-2024 15:37-0500 Heart rate 100 /min Yoli Lal MD Work Phone: [facility] [employer] 07-20-2024 15:37-0500 Respiratory rate 18 /min Yoli Lal MD Work Phone: [facility] [employer] 07-20-2024 15:37-0500 Systolic blood pressure 110 mm[Hg] Yoli Lal MD Work Phone: [facility] [employer] 05-24-2024 08:46-0500 Body height 167.6 cm Destinee Britton MD Work Phone: [facility] 05-24-2024 08:46-0500 Body mass index (BMI) [Ratio] 39 kg/m2 Destinee Britton MD Work Phone: [facility] 05-24-2024 08:46-0500 Body weight 109.59 kg Destinee Britton MD Work Phone: [facility] 05-24-2024 08:46-0500 Diastolic blood pressure 74 mm[Hg] Destinee Britton MD Work Phone: [facility] 05-24-2024 08:46-0500 Heart rate 91 /min Destinee Britton MD Work Phone: [facility] 05-24-2024 08:46-0500 Respiratory rate 18 /min Destinee Britton MD Work Phone: [facility] 05-24-2024 08:46-0500 SaO2% (BldA) [Mass fraction] 97 % Destinee Britton MD Work Phone: [facility] 05-24-2024 08:46-0500 Systolic blood pressure 114 mm[Hg] Destinee Britton MD Work Phone: [facility] 05-20-2024 15:22-0500 Body height 167.6 cm Destinee Britton MD Work Phone: [facility] 05-20-2024 15:22-0500 Body mass index (BMI) [Ratio] 39.96 kg/m2 Destinee Britton MD Work Phone: [facility] 05-20-2024 15:22-0500 Body weight 112.31 kg Destinee Britton MD Work Phone: [facility] 05-20-2024 15:22-0500 Diastolic blood pressure 72 mm[Hg] Destinee Britton MD Work Phone: [facility] 05-20-2024 15:22-0500 Heart rate 116 /min Destinee Britton MD Work Phone: [facility] 05-20-2024 15:22-0500 Respiratory rate 18 /min Destinee Britton MD Work Phone: [facility] 05-20-2024 15:22-0500 SaO2% (BldA) [Mass fraction] 99 % Destinee Britton MD Work Phone: [facility] 05-20-2024 15:22-0500 Systolic blood pressure 134 mm[Hg] Destinee Britton MD Work Phone: [facility] 05-10-2024 13:59-0500 Body mass index (BMI) [Ratio] 39.87 kg/m2 Jovita Salas CN Work Phone: [facility] 05-10-2024 13:59-0500 Body weight 112.04 kg Jovita Salas [facility] Work Phone: [facility] 11-11-2023 14:36-0400 Diastolic blood pressure 76 mm[Hg] [facility] 11-11-2023 14:36-0400 Heart rate 92 /min [facility] 11-11-2023 14:36-0400 Respiratory rate 20 /min [facility] 11-11-2023 14:36-0400 Systolic blood pressure 104 mm[Hg] [facility] 10-10-2023 11:51-0400 Body height 170.18 cm [facility] 10-10-2023 11:51-0400 Body mass index (BMI) [Ratio] 38.2 kg/m2 [facility] 10-10-2023 11:51-0400 Body weight 110.67 kg [facility] 10-10-2023 11:51-0400 Diastolic blood pressure 81 mm[Hg] [facility] 10-10-2023 11:51-0400 Heart rate 78 /min [facility] 10-10-2023 11:51-0400 SaO2% (BldA) [Mass fraction] 96 % [facility] 10-10-2023 11:51-0400 Systolic blood pressure 128 mm[Hg] [facility] 07-09-2023 13:00-0500 Body height 170.18 cm Becky Romeo Other [employer] [facility] [employer] Other 07-09-2023 13:00-0500 Body mass index (BMI) [Ratio] 36.96 kg/m2 Becky Romeo Other [employer] [facility] [employer] Other 07-09-2023 13:00-0500 Body temperature 97.6 [degF] Becky Romeo Other [employer] Other 07-09-2023 13:00-0500 Body weight 107.05 kg Becky Romeo Other [employer] Other 07-09-2023 13:00-0500 Diastolic blood pressure 69 mm[Hg] Becky Romeo Other [employer] Other 07-09-2023 13:00-0500 Respiratory rate 20 /min Becky Romeo Other [employer] Other 07-09-2023 13:00-0500 SaO2% (BldA) [Mass fraction] 97 % Becky Romeo Other [employer] Other 07-09-2023 13:00-0500 Systolic blood pressure 109 mm[Hg] Becky Romeo Other [employer] Other 12-09-2022 11:05-0400 Body height 170.18 cm Lexy Abena Other [employer] Other 12-09-2022 11:05-0400 Body mass index (BMI) [Ratio] 38.52 kg/m2 Lexy Abena Other [employer] Other 12-09-2022 11:05-0400 Body temperature 97.8 [degF] Lexy Kraft Other [employer] Other 12-09-2022 11:05-0400 Body weight 111.59 kg Lexy Kraft Other [employer] Other 12-09-2022 11:05-0400 Respiratory rate 18 /min Lexy Menamond Other [employer] Other 12-09-2022 11:05-0400 SaO2% (BldA) [Mass fraction] 98 % Lexy Menamond Other [employer] Other 08-12-2022 16:00-0500 Body height 170.18 cm Becky Romeo Other [employer] Other 08-12-2022 16:00-0500 Body mass index (BMI) [Ratio] 39.62 kg/m2 Becky Hernandezernestineyumiko Other [employer] Other 08-12-2022 16:00-0500 Body weight 114.76 kg Becky Romeo Other [employer] Other 08-12-2022 16:00-0500 Diastolic blood pressure 71 mm[Hg] Becky Hernandezjulia Other [employer] Other 08-12-2022 16:00-0500 Respiratory rate 16 /min Becky Hernandezernestineyumiko Other [employer] Other 08-12-2022 16:00-0500 SaO2% (BldA) [Mass fraction] 98 % Becky Hernandezernestineyumiko Other [employer] Other 08-12-2022 16:00-0500 Systolic blood pressure 107 mm[Hg] Becky Pierrefariba Other [employer] Other 02-08-2022 12:00-0400 Body height 167.64 cm Joselin Franky Other [employer] Other 02-06-2022 18:45-0400 Body height 167.64 cm Lexy Kraft Other [employer] Other 02-06-2022 18:45-0400 Body mass index (BMI) [Ratio] 37.12 kg/m2 Lexy Kratf Other [employer] Other 02-06-2022 18:45-0400 Body temperature 97.3 [degF] Lexy Kraft Other [employer] Other 02-06-2022 18:45-0400 Body weight 104.33 kg Lexy Kraft Other [employer] Other 02-06-2022 18:45-0400 Respiratory rate 18 /min Lexy Kraft Other [employer] Other 02-06-2022 18:45-0400 SaO2% (BldA) [Mass fraction] 97 % Lexy Kraft Other [employer] Other Encounters Encounter Date Encounter Type Care Provider Facility Start: 04-21-2025 End: 04-21-2025 Treatment Of[place] Blakely PARADI OPERATOR [facility] Comment on above: Sacrococcygeal disor ders, not elsewhere classified (Primary Dx) Start: 04-18-2025 End: 04-18-2025 ambulatory Ty Faribanks MD Facility:[facility] Start: 04-13-2025 End: 04-13-2025 ambulatory [facility] Start: 04-04-2025 End: 04-04-2025 Treatment Delia Kwan PT [facility] Comment on above: Sacrococcygeal disor ders, not elsewhere classified (Primary Dx) Start: 03-29-2025 End: 03-29-2025 Treatment Ryan Barger PARADI OPERATOR [facility] Comment on above: Sacrococcygeal disor ders, not elsewhere classified (Primary Dx) Start: 03-29-2025 End: 03-29-2025 Bamboo flowsheet Ryan Barger PARADI OPERATOR [facility] Start: 03-29-2025 End: 03-29-2025 Bamboo flowsheet Ryan Barger PARADI OPERATOR [facility] Start: 03-24-2025 End: 03-24-2025 Treatment Ofelia Blakely PARADI OPERATOR [facility] Comment on above: Sacrococcygeal disor ders, not elsewhere classified (Primary Dx) Start: 03-24-2025 End: 03-24-2025 Bamboo flowsheet Ofelia Carrascoy PARADI OPERATOR [facility] Start: 03-24-2025 End: 03-24-2025 Bamboo flowsheet Ofelia Carrascoy PARADI OPERATOR [facility] Start: 03-23-2025 End: 03-23-2025 ambulatory [facility] Start: 03-21-2025 End: 03-21-2025 Bamboo flowsheet Ryan Barger PARADI OPERATOR [facility] Start: 03-21-2025 End: 03-21-2025 Bamboo flowsheet Ryan Barger PARADI OPERATOR [facility] Start: 03-21-2025 End: 03-21-2025 Treatment Ryan Barger PARADI OPERATOR [facility] Comment on above: Sacrococcygeal disor ders, not elsewhere classified (Primary Dx) Start: 03-21-2025 End: 03-21-2025 ambulatory Ty Fairbanks MD Facility:[facility] Start: 03-16-2025 End: 03-16-2025 ambulatory NUBIA Dirk [facility] Start: 03-15-2025 End: 03-15-2025 Treatment Ryandestini Barger PARADI OPERATOR [facility] Comment on above: Sacrococcygeal disor ders, not elsewhere classified (Primary Dx) Start: 03-15-2025 End: 03-15-2025 Bamboo flowsheet Ryan Barger PARADI OPERATOR [facility] Start: 03-15-2025 End: 03-15-2025 Bamboo flowsheet Ryan Barger PARADI OPERATOR [facility] Start: 03-02-2025 End: 03-02-2025 Treatment Ryan Barger PARADI OPERATOR [facility] Comment on above: Sacrococcygeal disor ders, not elsewhere classified (Primary Dx) Start: 03-02-2025 End: 03-02-2025 Bamboo flowsheet Ryan Barger PARADI OPERATOR [facility] Start: 03-02-2025 End: 03-02-2025 Bamboo flowsheet Ryan Barger PARADI OPERATOR [facility] Start: 02-28-2025 End: 02-28-2025 Treatment Delia Kwan PT [facility] Comment on above: Sacrococcygeal disor ders, not elsewhere classified (Primary Dx) Start: 02-28-2025 End: 02-28-2025 Bamboo flowsheet Delia Kwan PT [facility] Start: 02-28-2025 End: 02-28-2025 Bamboo flowsheet Delia Kwan PT [facility] Start: 02-23-2025 End: 02-23-2025 ambulatory [facility] Start: 02-21-2025 End: 02-21-2025 ambulatory Ty Fairbanks MD Facility:[facility] Start: 02-15-2025 End: 02-15-2025 ambulatory Kem Igor PARADI OPERATOR [facility] Start: 02-15-2025 End: 02-15-2025 Telephone encounter Destinee Britton MD Work Phone: [facility] Comment on above: Sacrococcygeal disor ders, not elsewhere classified (Primary Dx) Start: 02-14-2025 End: 02-14-2025 Office outpatient visit 15 minutes Jovita Salas CNM Work Phone: [facility] Comment on above: PCOS (polycystic ova melvin syndrome) (Primary Dx); Encounter for initial prescription of contraceptive pills; Insulin resistance Start: 02-14-2025 End: 02-14-2025 Bamboo flowsheet Jovita L Floro CN Work Phone: [facility] Start: 02-14-2025 End: 02-14-2025 Bamboo flowsheet Jovita L Floro [facility] Work Phone: [facility] Start: 02-01-2025 End: 02-01-2025 Treatment Kem Costa PARADI OPERATOR [facility] Comment on above: Sacrococcygeal disor ders, not elsewhere classified (Primary Dx) Start: 02-01-2025 End: 02-01-2025 Bamboo flowsheet Kem Costa PARADI OPERATOR [facility] Start: 02-01-2025 End: 02-01-2025 Bamboo flowsheet Kem Costa PARADI OPERATOR [facility] Start: 01-27-2025 End: 01-27-2025 Treatment Ofelia lBakely PARADI OPERATOR [facility] Comment on above: Sacrococcygeal disor ders, not elsewhere classified (Primary Dx) Start: 01-27-2025 End: 01-27-2025 Bamboo flowsheet Ofelia Blakely PARADI OPERATOR [facility] Start: 01-27-2025 End: 01-27-2025 Bamboo flowsheet Ofelia Blakely PARADI OPERATOR [facility] Start: 01-24-2025 End: 01-25-2025 Evaluation Delia Kwan PT [facility] Comment on above: Sacrococcygeal disor ders, not elsewhere classified (Primary Dx) Start: 01-24-2025 End: 01-24-2025 Bamboo flowsheet Delia Kwan PT [facility] Start: 01-24-2025 End: 01-24-2025 Bamboo flowsheet Delia Kwan PT [facility] Start: 01-20-2025 End: 01-20-2025 [facility] Start: 01-11-2025 End: 01-11-2025 ambulatory Becky Romeo DO Work Phone: [facility] Work Phone: Start: 01-11-2025 End: 01-11-2025 Patient encounter procedure Feliz Musa MD -[facility] Work Phone: Start: 01-06-2025 End: 01-06-2025 ambulatory Becky Romeo DO Work Phone: [facility] Work Phone: Start: 01-06-2025 End: 01-06-2025 Patient encounter procedure Mack Zimmerman DO -[facility] Work Phone: Start: 01-05-2025 End: 01-05-2025 ambulatory Adam Bland MD Facility:[facility] Start: 12-27-2024 End: 12-27-2024 ambulatory Ty Fairbanks MD Facility:[facility] Start: 12-16-2024 End: 12-16-2024 ambulatory [facility] Start: 12-03-2024 End: 12-03-2024 Telephone encounter Destinee Britton MD Work Phone: [facility] Start: 12-03-2024 End: 12-03-2024 Office outpatient visit 25 minutes Ness Montez NP Work Phone: [facility] Comment on above: Nausea (Primary Dx); Pain of upper abdomen Start: 12-01-2024 Non-patient / Non-visit Lacey Morton INFORMATION SYSTEMS TECHNICIAN -[facility] Work Phone: Start: 11-24-2024 End: 11-24-2024 Emergency department patient visit BECKY A ROMEYumiko [facility] Comment on above: Acute exacerbation o f chronic low back pain (Primary Dx) Start: 11-11-2024 End: 11-11-2024 ambulatory [facility] Start: 10-14-2024 End: 10-14-2024 ambulatory CHAD Giordano [facility] Start: 09-17-2024 End: 09-17-2024 ambulatory NUBIA Cavazos [facility] Start: 09-16-2024 End: 09-16-2024 ambulatory CHAD Giordano [facility] Start: 09-13-2024 End: 09-13-2024 ambulatory Ty Fairbanks MD Facility:[facility] Start: 08-30-2024 End: 08-30-2024 ambulatory Ty Fairbanks MD Facility:[facility] Start: 08-26-2024 End: 08-26-2024 ambulatory CHAD Giordano [facility] Start: 08-16-2024 End: 08-16-2024 ambulatory Ty Fairbanks MD Facility:[facility] Start: 08-12-2024 End: 08-12-2024 ambulatory CHAD Giordano [facility] Start: 08-10-2024 End: 08-10-2024 Office outpatient visit [...] patient visit Priyank Gaspar MD Work Phone: [facility] Comment on above: Acute exacerbation o f chronic low back pain (Primary Dx) Start: 07-20-2024 End: 07-20-2024 Emergency department patient visit [facility] Comment on above: Strain of lumbar reg ion, initial encounter (Primary Dx); Abnormal computed tomography of lumbar spine Start: 07-15-2024 End: 07-15-2024 ambulatory [facility] Start: 06-25-2024 End: 06-25-2024 ambulatory [facility] Start: 06-02-2024 End: 07-16-2024 Refill Destinee Britton MD Work Phone: [facility] Comment on above: Encounter for initia l prescription of contraceptive pills Start: 05-28-2024 End: 05-28-2024 ambulatory NUBIA Cavazos [facility] Start: 05-27-2024 End: 05-27-2024 ambulatory [facility] Start: 05-24-2024 End: 05-24-2024 Bamboo flowsheet [...] normal Jovita L Floro CNM Work Phone: [facility] Start: 05-10-2024 End: 05-10-2024 Office outpatient visit 15 minutes Jovita Salas [facility] Work Phone: [facility] Comment on above: PCOS (polycystic ova melvin syndrome) (Primary Dx); Normal gynecologic examination; Screening for cervical cancer; Other acne; Hirsutism Start: 04-22-2024 End: 04-22-2024 ambulatory CHAD Giordano [facility] Start: 11-11-2023 End: 11-11-2023 ambulatory [facility] Work Phone: Start: 11-11-2023 End: 11-11-2023 Patient encounter procedure [facility] Work Phone: Start: 10-10-2023 End: 10-10-2023 ambulatory [facility] Work Phone: Start: 10-10-2023 End: 10-10-2023 [facility] encounter [facility] Work Phone: Start: 07-09-2023 End: 07-09-2023 ambulatory Becky Romeo Other [facility] Other Start: 07-09-2023 Office outpatient vi sit 25 minutes Becky Romeo [facility] Start: 12-11-2022 End: 12-11-2022 ambulatory Becky Romeo Other [facility] Other Start: 12-11-2022 Telephone encounter Becky Romero i [facility] Start: 12-09-2022 Office outpatient vi sit 15 minutes Lexy Kraft [facility] Start: 12-09-2022 End: 12-09-2022 ambulatory PHYSICIAN [facility] [employer] Other Start: 12-09-2022 End: 12-09-2022 Patient encounter procedure PHYSICIAN [facility] Work Phone: Start: 09-27-2022 End: 09-27-2022 ambulatory Becky Romeo Other [facility] Other Start: 09-27-2022 Telephone encounter Becky Romero i [facility] Start: 08-14-2022 End: 08-14-2022 ambulatory Becky Romeo Facility:[facility] Start: 08-14-2022 End: 08-14-2022 ambulatory PHYSICIAN NO [facility] Work Phone: Start: 08-14-2022 End: 08-14-2022 Patient encounter procedure PHYSICIAN NO [facility] Work Phone: Start: 08-13-2022 End: 08-13-2022 ambulatory Becky Romeo Facility:[facility] Start: 08-13-2022 End: 08-13-2022 Patient encounter procedure PHYSICIAN NO [facility] Start: 08-13-2022 End: 08-13-2022 ambulatory PHYSICIAN NO [facility] Work Phone: Start: 08-13-2022 Telephone encounter Becky Romero i [employer] Start: 08-12-2022 End: 08-12-2022 ambulatory Becky Romeo Other [facility] Other Start: 08-12-2022 Encounter for genera l adult medical examination without abnormal findings Becky Romeo [facility] Start: 08-12-2022 Periodic preventive med est patient 18-[address] [facility] Start: 05-20-2022 End: 05-20-2022 ambulatory Becky Romeo Other [facility] Other Start: 05-20-2022 Telephone encounter Becyk Romero i [facility] Start: 02-08-2022 End: 02-08-2022 ambulatory Becky Ousmane Other [facility] Other Start: 02-08-2022 Office outpatient vi sit 15 minutes Joselin Wilkins [facility] Start: 02-08-2022 Telephone encounter Becky Rome calderon [facility] Start: 02-06-2022 End: 02-06-2022 ambulatory Lexy Abena Other [facility] Other Start: 02-06-2022 Office outpatient vi sit 15 minutes Lexy Abena [facility] Start: 07-03-2021 End: 07-03-2021 ambulatory Becky Pierrefariba Other [facility] Other Start: 07-03-2021 Office outpatient vi sit 15 minutes Becky Ousmane [facility] Start: 05-19-2020 End: 05-19-[address] ROGE THACKER Facility:[facility]1 Start: 05-16-2020 Encounter for other preprocedural examination SUYAPA JACKSON [facility] Start: 05-13-2020 End: 05-14-2020 ambulatory SUYAPA [facility] Facility:[facility] Start: 05-11-2020 End: 05-12-2020 ambulatory SUYAPA [facility] Facility:[facility] Start: 05-11-2020 End: 05-12-2020 Encounter for other preprocedural examination SUYAPA JACKSON Facility:[facility] Start: 03-23-2020 End: 03-24-[address] DESTINEE BRITTON Facility:[facility] Start: 02-29-2020 End: 03-01-2020 ambulatory SUYAPA [facility] Facility:[facility]1 Start: 03-30-2019 End: 03-30-2019 Patient encounter procedure Radha Aguilera [facility] Procedures Date Procedure Procedure Detail Performing Clinician Start: 12-03-2024 Urnls dip stick/tabl et rgnt non-auto w/o micrscp Ness Montez PANEL [employer] Work Phone: Start: 07-20-2024 Ct lumbar spine [...] PM EST Office Visit BIANCA RAPP [address] [place] [address] Jovita Salas, ALEJANDRA [address] [place], [place] [id number] BIANCA RAPP Start: 04-11-2025 End: 04-11-2025 ambulatory 04/11/2025 5:30 PM EDT Treatment [facility] [address] [facility] [address] [place] [address] Delia Kwan, PT [facility] Start: 04-04-2025 End: 04-04-2025 ambulatory 04/04/2025 5:30 PM EDT Treatment [facility] [address] [facility] [address] [place] [address] Delia Kwan, PT [facility] [...] [address] [place] [address] Ryan Barger, PARADI OPERATOR Arrived [facility] Comment on above: Arrived Start: 03-07-2025 Influenza vaccination Influenza Vacc ine (#1) [facility] Start: 03-02-2025 End: 03-02-2025 ambulatory 03/02/2025 5:30 PM EDT Treatment [facility] [address] [place] [address] Ryan Barger PTA [facility] Start: 02-28-2025 End: 02-28-2025 ambulatory 02/28/2025 6:00 PM EDT Treatment [facility] [address] [place] [address] Delia Kwan, PT [facility] Start: 02-24-2025 End: 02-24-2025 ambulatory 02/24/2025 6:00 PM EDT Treatment [facility] [address] [place] [address] Ofelia Blakely, NATI [facility] Start: 02-15-2025 End: 02-15-2025 ambulatory 02/15/2025 6:00 PM EDT Treatment [facility] [address] [place] [address] Kem Costa PTA [facility] Start: 02-14-2025 End: 02-14-2025 Patient encounter procedure [facility] Comment on above: Arrived Start: 02-08-2025 End: 02-08-2025 Patient encounter procedure 02/08/2025 4:00 PM EDT Office Visit [facility] [address] [facility] [place] [address] Jovita Salas CNM [address] [facility], [place] [id number] [facility] Start: 02-01-2025 End: 02-01-2025 ambulatory [facility] Comment on above: Arrived Start: 01-27-2025 End: 01-27-2025 ambulatory [facility] Comment on above: Arrived Start: 01-24-2025 End: 01-24-2025 Evaluation 01/24/2025 6:00 PM EDT Evaluation [facility] [address] [place] [phone] Delia Kwan, PT Sacrococcygeal disorders, not elsewhere [...] EDT Office Visit [facility] [address] [place] [phone] Ness Montez NP [address] [place], [place] [id number] [facility] Start: 08-10-2024 End: 08-10-2024 [...] EST Office Visit [facility] [address] [place] [phone] Jovita Salas, ALEJANDRAM [address] [place] [address] Arrived [facility] Comment on above: Arrived Start: 05-10-2024 End: 05-10-2025 THINPREP IMAGING PAP AND HPV DNA REFLEX HPV 16,18 THINPREP IMAGING PAP AND HPV DNA REFLEX HPV 16,18 Pathology and Cytology Routine Screening for cervical cancer Expected: 05/10/2024 (Approximate), Expires: 05/10/2025 [facility] Work Phone: Comment on above: Expected: 05/10/2024 (Approximate), Expires: 05/10/2025 Start: 03-07-2024 Influenza vaccination Influenza Vacc ine (#1) [facility] Start: 05-19-2023 DTaP/Tdap/Td vaccine (7 - Td or Tdap) DTaP/Tdap/Td vaccine (7 - Td or Tdap) [facility] Start: 08-14-2022 [facility] Start: 2021 Screening for malign ant neoplasm of cervix Pap smear [facility] Start: 2018 Hepatitis C screening Hepatitis C sc reen [facility] Start: 2016 Screening for Chlamy rafael trachomatis Chlamydia/GC screen [facility] Start: 2015 HIV screening HIV screen [facility] Start: 2015 HPV vaccine (1 - 3-d ose series) HPV vaccine (1 - 3-dose series) [facility] Start: 2012 Depression Screen Depression Screen [facility] CBC panel - Blood by Automated count CBC Lab Routine PCOS (polycystic ovarian syndrome) Ordered: 05/10/2024 [facility] Comment on above: Ordered: 05/10/2024 Glucose measurement estimated from glycated hemoglobin [facility] Hemoglobin A1c/Hemoglobin.total in Blood [facility] Hemoglobin A1c/Hemoglobin.total in Blood Hemoglobin A1c Lab Routine PCOS (polycystic ovarian syndrome) Ordered: 05/10/2024 [facility] Comment on above: Ordered: 05/10/2024 Immunizations Immunization Date Immunization Notes Care Provider Fa cility 04-29-2024 SARS-COV-2 (COVID-19 ) vaccine, mRNA, spike protein, LNP, PF, anuj-sucrose, 30 mcg/0.3 mL Destinee Britton MD Work Phone: [facility] 04-29-2024 Seasonal, trivalent, recombinant, injectable influenza vaccine, preservative free Destinee Britton MD Work Phone: [facility] 04-29-2024 influenza virus vacc ine, unspecified formulation Delia Kwan PT [facility] 07-10-2019 Influenza, injectabl e, Madin Bhavana Canine Kidney, preservative free, quadrivalent Destinee Britton MD Work Phone: [facility] 07-10-2019 influenza, seasonal, injectable Becky Romeo Other [facility] 07-10-2019 influenza virus vacc ine, unspecified formulation Jovita Salas CN Work Phone: [facility] 07-17-2018 Influenza, injectabl e, Madin [place] Canine Kidney, preservative free, quadrivalent Destinee Britton MD Work Phone: [facility] 03-02-2018 meningococcal polysaccharide (groups A, C, Y and W-135) diphtheria toxoid conjugate vaccine (MCV4P) Becky Ousmane Other [facility] 05-19-2013 meningococcal polysaccharide (groups A, C, Y and W-135) diphtheria toxoid conjugate vaccine (MCV4P) Destinee Britton MD Work Phone: [facility] 05-19-2013 tetanus toxoid, redu latrice diphtheria toxoid, and acellular pertussis vaccine, adsorbed Destinee Britton MD Work Phone: [facility] 05-19-2013 varicella virus vaccine Destinee Britton MD Work Phone: [facility] 04-03-2006 diphtheria, tetanus toxoids and acellular pertussis vaccine, unspecified formulation Destinee Britton MD Work Phone: [facility] 04-03-2006 hepatitis B vaccine, pediatric or pediatric/adolescent dosage Destinee Britton MD Work Phone: [facility] 04-03-2006 measles, mumps and rubella virus vaccine Destinee Britton MD Work Phone: [facility] 04-03-2006 poliovirus vaccine, unspecified formulation Destinee Britton MD Work Phone: [facility] 04-03-2006 varicella virus vaccine Destinee Britton MD Work Phone: [facility] 03-03-2006 DTaP-hepatitis B and poliovirus vaccine Destinee Britton MD Work Phone: [facility] 03-03-2006 measles, mumps and rubella virus vaccine Destinee Britton MD Work Phone: [facility] 12-23-2001 measles, mumps and rubella virus vaccine Destinee Britton MD Work Phone: [facility] 09-17-2001 diphtheria, tetanus toxoids and acellular pertussis vaccine, unspecified formulation Destinee Britton MD Work Phone: [facility] 09-17-2001 haemophilus influenz ae type b vaccine, conjugate unspecified formulation Destinee Britton MD Work Phone: [facility] 2000 diphtheria, tetanus toxoids and acellular pertussis vaccine, unspecified formulation Destinee Britton MD Work Phone: [facility] 2000 haemophilus influenz ae type b vaccine, conjugate unspecified formulation Destinee Britton MD Work Phone: [facility] 2000 hepatitis B vaccine, pediatric or pediatric/adolescent dosage Destinee Britton MD Work Phone: [facility] 2000 poliovirus vaccine, unspecified formulation Destinee Britton MD Work Phone: [facility] 2000 haemophilus influenz ae type b vaccine, conjugate unspecified formulation Destinee Britton MD Work Phone: [facility] 2000 diphtheria, tetanus toxoids and acellular pertussis vaccine, unspecified formulation Destinee Britton MD Work Phone: [facility] 2000 poliovirus vaccine, unspecified formulation Destinee Britton MD Work Phone: [facility] 2000 diphtheria, tetanus toxoids and acellular pertussis vaccine, unspecified formulation Destinee Britton MD Work Phone: [facility] 2000 haemophilus influenz ae type b vaccine, conjugate unspecified formulation Destinee Britton MD Work Phone: [facility] 2000 hepatitis B vaccine, pediatric or pediatric/adolescent dosage Destinee Britton MD Work Phone: [facility] 2000 poliovirus vaccine, unspecified formulation Destinee Britton MD Work Phone: [facility] 2000 hepatitis B vaccine, pediatric or pediatric/adolescent dosage Destinee Britton MD Work Phone: [facility] Healthcare Payers Date Payer Category Payer Unknown 2024 Unknown [id number] 2022 Blue Cross Blue Shield [id number] 2022 Self-pay [id number] 2022 Blue Cross Blue Shield 1.2.8 [id number] 15 2000 Unknown [id number] 2.16.84 0.1.654329.3.579.2.593 2000 Unknown [id number] 2.16.84 0.1.848926.3.579.2.593 2000 Unknown [id number] 2.16.84 0.1.813855.3.579.2.593 2000 Unknown [id number] 2.16.84 0.1.050051.3.579.2.593 2000 Unknown [id number] 2.16.84 0.1.795495.3.579.2.593 2000 Unknown [id number] 2.16.8 40.1.582505.3.579.2.173 2000 Unknown [id number] 2.16.8 40.1.008662.3.579.2.173 2000 Unknown [id number] 2.16.8 40.1.835200.3.579.2.173 2000 Unknown [id number] 2.16. 840.1.124216.3.579.2.1285 2000 Unknown [id number] 2.16. 840.1.365487.3.579.2.1285 2000 Unknown [id number] 2.16. 840.1.195960.3.579.2.1285 2000 Unknown [id number] 2.16. 840.1.093761.3.579.2.1285 2000 Unknown [id number] 2.16. 840.1.871535.3.579.2.1285 2000 Unknown [id number] 2.16. 840.1.539738.3.579.2.1285 2000 Unknown [id number] 2.16. 840.1.573295.3.579.2.1285 2000 Unknown [id number] 2.16. 840.1.406357.3.579.2.1285 2000 Unknown [id number] 2.16. 840.1.777931.3.579.2.1285 2000 Unknown [id number] 2.16. 840.1.686684.3.579.2.1285 2000 Unknown [id number] 2.16. 840.1.287930.3.579.2.1285 2000 Unknown [id number] 2.16. 840.1.169744.3.579.2.1285 2000 Unknown [id number] 2.16. 840.1.847140.3.579.2.1285 2000 Unknown [id number] 2.16.8 40.1.003859.3.579.2.1285 2000 Unknown [id number] 2.16.8 40.1.377002.3.579.2.1285 2000 Unknown [id number] 2.16.8 40.1.532521.3.579.2.1286 2000 Unknown [id number] 2.16.8 40.1.565716.3.579.2.1286 2000 Unknown [id number] 2.16. 840.1.759583.3.579.2.196 2000 Unknown [id number] 2.16. 840.1.630632.3.579.2.196 2000 Unknown [id number] 2.16. 840.1.650795.3.579.2.196 2000 Unknown [id number] 2.16. 840.1.688122.3.579.2.196 2000 Unknown [id number] 2.16. 840.1.524719.3.579.2.196 2000 Unknown [id number] 2.16. 840.1.468556.3.579.2.196 2000 Unknown [id number] 2.16. 840.1.160398.3.579.2.196 2000 Unknown [id number] 2.16. 840.1.785316.3.579.2.196 1959 Unknown [id number] 2.16.8 40.1.022841.3.579.2.531 Unknown [id number] 2.16.8 40.1.303574.3.579.2.531 Unknown [id number] 2.16.8 40.1.682287.3.579.2.531 Social History Date Type Detail Facility [facility] smoked [facility] Start: 2000 Sex Assigned At Female [facility] Start: 12-04-2023 End: 05-20-2024 Sex Assigned At [facility] Start: 10-10-2023 Tobacco smoking status TNIS Unknown if ever smoked [facility] Start: 06-26-2023 End: 05-20-2024 Tobacco smoking status TNIS Never smoked tobacco [facility] Start: 06-26-2023 [...] End: 12-03-2024 Alcoholic beverage intake Ex-drinker (finding) [facility] Start: 09-18-2022 How often do you need to have someone help you when you read instructions, pamphlets, or other written material from your doctor or pharmacy [SILS] Never [facility] Do you belong to any clubs or organizations such as restoration groups, unions, fraternal or athletic groups, or [...] [facility] Start: 07-20-2024 Tobacco smoking status TNIS Ex-smoker [facility] History of tobacco use Current smoker [employer] [facility] History of tobacco use Cigarette Smoker [facility] [employer] Start: 2000 Sex assigned at Not on file [employer] Start: 08-16-2012 Sex Female (finding) [facility] How often do you nee d to have someone help you when you read instructions, pamphlets, or other written material from your doctor or pharmacy [SILS] Never [facility] Goals Date Patient Goal Desired Activity /State Clinical Notes 02-29-2020 to 04-04-2025 Delia Kwan, PT - 04/04/2025 5:30 PM EDTSleslie Kwan, PT - 02/28/2025 6:00 PM EDTTelephone Encounter - Evon Loera - 02/15/2025 9:35 AM EDTJovita Salas CNM - 02/14/2025 5:30 PM EDT [...] to be instructed in home exercise program. 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 Date: documented in this encounter [facility] 02-28-2025 History of Presen t illness [...] sign below. Date: documented in this encounter [facility] 02-15-2025 Telephone encount er Note Jackson left at 9:13 am Nc, this is Jenn from [facility] in [place]. I am calling about a mutual patient. [...] be great. Our phone number here is [phone]. Again, this is Jenn from [facility] coming from a Main for Edwige Evans mechelle 2000 for the spring tech or generic, nor just with [place], dial the control, calling the change quantity to 84 because they only come in back to 28 and we can not open the pack again, phone number [phone] if you want to call for change or send over a brand new prescription with the correct quantity of 84? Thank you. [facility] 02-15-2025 Miscellaneous Notes Formattin g of this note might be different from the original. Jackson left at 9:13 am Nc, this is Jenn from [facility] in [place]. I am calling about a mutual patient. [...] be great. Our phone number here is [phone]. Again, this is Jenn from [facility] coming from a Main for Edwige Evans move 2000 for the spring tech or generic, nor just with Zamzam, dial the control, calling the change quantity to 84 because they only come in back to 28 and we can not open the pack again, phone number [phone] if you want to call for change or send over a brand new prescription with the correct quantity of 84? Thank you. documented in this encounter [facility] 02-14-2025 History of Presen t illness Narrative PROBLEM VISIT Edwige Patterson is 24 y.o. 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 Date: documented in this encounter [facility] 01-06-2025 Evaluation note Diagnosis Onset Date Resolution Paresthesias acute January 06 2:55pm Pain of left sacroiliac joint acute January 11, 2025 9 :14am Pain of right sacroiliac joint acute January 11, 2025 9:14am Paresthesias acute January 11 9:14am [facility] Work Phone: 1(199) 721-154105-30-2025 History of Present illness Narrative* Ness Montez [...] prompting another visit to the ER in [place]. A diagnosis of viral gastroenteritis was made [...] HPI Flowsheet Row Documentation from 11/30/2024 in [facility] with Lorin Hunt MA Hospital Information ED, Hospital or Longterm Facility Discharge? ED Patient has been contacted within 2 days of being seen in the ED Yes Diagnosis Viral Infection Discharge Date 11/28/24 Discharged To: Home Setting Discharge Hospital [facility] Engagement Call Start Time 1528 Admission Date [...] fluid intake and abstain from smoking marijuana. Hhoc-hso-unjvcgc MiraLAX can be used if constipation persists. [...] or other abnormalities. - Advised to use srhd-bfa-fgkfhue MiraLAX if constipation persists and to increase fluid intake. - Blood work will be done to assess kidney and liver function. No follow-ups on file. documented in this [facility]05-21-2025 Hospital Discharge instructions* Discharge Instructions* Alicia Dunn [...] sent through Care Everywhere. * Back Pain (Gibraltarian) [facility] of Present illness Narrative* Jovita Salas, WILLOW - 08/10/2024 4:00 PM EST PROBLEM VISIT Edwige Patterson is 24 y.o. a patient of [facility]ES [facility] Here for follow up on medications Last pap: Last mammogram: n/a No LMP recorded. History: Past Medical History: Diagnosis Date Anxiety 10/2023 Depression 12/2019 Right ankle sprain No past surgical history on file. Family History Problem Relation Name Age of Onset Diabetes Mother Kelsy Patterson Cancer Paternal Grandmother Tawnya Patterson Heart failure Other g-ma Diabetes Sister Jovana Patterson Mental illness Sister Jovana Patterson [email or web address] Allergies: No Known Allergies Medications: Current Outpatient [...] Salas CNM,12/16/2024 4:48 PMpatient documented in this encounterKindred [id number] Hospital Discharge instructions* Discharge Instructions* Octavio Day [...] sent through Care Everywhere. * [facility]* Discharge Instructions* [...] through Care Everywhere. * Strain or Sprain ([place]ralt[place]) [facility] encounter Note* Telephone Encounter - Bess Lomeli - 06/02/2024 1:06 PM EST Pt called and left a vm at 12:41 pm today She said she has been waiting for her BC to be called over to [employer] [facility] but they haven't received anything. She asked if that can please be sent over. [facility] [id number] Miscellaneous Notes* Telephone Encounter - Bess Lomeli - 06/02/2024 1:06 PM EST Pt called and left a vm at 12:41 pm today She said she has been waiting for her BC to be called over to [employer] but they haven't received anything. She asked if that can please be sent over. documented in this encounterKindred [id number] History of Present illness Narrative* Destinee Britton [...] should contact the clinic. documented in this encounterKindred [id number] History of Present illness Narrative* Destinee Britton [...] child. 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 She is getting her master's degree [...] bite block during sleep. documented in this encounterKindred [id number] History of Present illness Narrative* Jovita Salas CNM - 05/10/2024 2:00 PM EST YEARLY HPI: This is a established patient. Chief Complaint Patient presents with Gynecologic Exam Here for annual exam. 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 [facility] Other 06-05-2023 Evaluation note* Encounter Date Diagnosis [...] no improvement in 5 to 7 days [facility] Other 02-06-2023 Evaluation note* Encounter Date Diagnosis [...] Screening for deficiency anemia (ICD-10 - Z13.0) [facility] Other 08-05-2022 Evaluation note* Encounter Date Diagnosis [...] understanding and is agreeable to treatment plan. [facility] Other 08-03-2022 Evaluation note* Encounter Date Diagnosis [...] no improvement in 2 to 3 days. [facility] Other 12-28-2021 Evaluation note* Encounter Date Diagnosis Assessment Notes Treatment Notes Treatment Clinical Notes Jun, Exposure to COVID-19 virus (ICD-10 - Z20.822) Jun, COVID-19 (ICD-10 - U07.1) Patient's rapid test is positive for Covid-19. She is given instructions for quarantine and supportive care. Call immediately for change/worsening or with questions/concerns. [facility] Other 11-13-2020 NotePROCEDURE: XR ANKLE RT MIN 3 VIEWS COMPARISON: 05/19/2020 intraprocedural, 04/02/2020 HISTORY: Postoperative care FINDINGS: BONES:No fracture, acute abnormality, or significant arthropathy. SOFT TISSUES:Post procedural soft tissue swelling, subcutaneous air and lateral surgical elaina EFFUSION:None visible. OTHER: Negative. IMPRESSION: Postprocedural changes Electronically authenticated by: ROGE THACKER Date: 2020-05-19 14:02[id number] NotePROCEDURE: XR ANKLE RT 2V COMPARISON: 02/29/2020 [...] Electronically authenticated by: ROGE THACKER Date: 2020-05-19 14:00[facility]11-01-2020 History general Narrative - Reported* Type Description Date Medical History Chronic back pain Medical History Hx of concussion Medical History acne Medical History chronic depression Surgical History ankle reconstruction- right 2019 [facility] Other 09-17-2020 NotePROCEDURE: XR FOOT RT MIN 3 VIEWS COMPARISON: 02/29/2020 HISTORY: Pain in right foot FINDINGS: BONES:Stable intra-articular transverse fracture base of the fifth metatarsal. No acute fracture or dislocation SOFT TISSUES:Negative. No visible soft tissue swelling. EFFUSION:None visible. OTHER: Negative. IMPRESSION: Stable healing intra-articular transverse fracture base of the fifth metatarsal Electronically authenticated by: ROGE THACKER Date: 2020-03-23 10:22[facility]08-25-2020 NotePROCEDURE: XR ANKLE RT MIN [...] authenticated by: ROGE THACKER Date: 2020-02-29 12:57[facility] [id number] NotePROCEDURE: XR ANKLE RT MIN 3 VIEWS, [...] authenticated by: ROGE THACKER Date: 2020-02-29 12:57[facility]Eval[facility] noteNo InformationNort [employer] Other Evaluation noteNo assessment information available [facility] Work Phone: Evaluation note* Diagnosis Onset Date Resolution Status Bilateral acute otitis media resolved [facility] Work Phone: Evaluation note* Diagnosis PCOS (polycystic ovarian syndrome)- Primary Polycystic ovaries Normal gynecologic examination Screening for cervical cancer Screening for malignant neoplasm of the cervix Other acne Hirsutism [facility]* Diagnosis Candidiasis- Primary Acute nausea with nonbilious vomiting [facility]* Diagnosis Candidiasis- Primary documented in this encounter [facility]* Diagnosis Encounter for initial prescription of contraceptive pills documented in this encounter [facility]* Diagnosis Strain of lumbar region, initial encounter- Primary Abnormal computed tomography of lumbar spine [facility] Diagnosis Acute exacerbation of chronic low back pain- Primary [facility] Diagnosis Acute exacerbation of chronic low back pain- Primary documented in this encounter [facility]* Diagnosis Nausea- Primary Nausea alone Pain of upper abdomen documented in this encounter [facility]* Diagnosis Unwanted fertility- Primary PCOS (polycystic ovarian syndrome) Polycystic ovaries documented in this encounter [facility]* Diagnosis Onset Date Resolution Status Admit Date Paresthesias acute January 06 2:55pm [facility] Work Phone: Evaluation note* Diagnosis Sacrococcygeal disorders, not elsewhere classified- Primary documented in this encounter [facility]* Diagnosis Sacrococcygeal disorders, not elsewhere classified- Primary documented in this encounter [facility]* Diagnosis Sacrococcygeal disorders, not elsewhere classified- Primary documented in this encounter [facility]* Diagnosis PCOS (polycystic ovarian syndrome)- Primary Polycystic ovaries Encounter for initial prescription of contraceptive pills Insulin resistance Other abnormal glucose documented in this encounter [facility]* Diagnosis Sacrococcygeal disorders, not elsewhere classified- Primary documented in this encounter [facility]* Diagnosis Sacrococcygeal disorders, not elsewhere classified- Primary documented in this encounter [facility]* Diagnosis Sacrococcygeal disorders, not elsewhere classified- Primary documented in this encounter [facility]* Diagnosis Sacrococcygeal disorders, not elsewhere classified- Primary documented in this encounter [facility]* Diagnosis Sacrococcygeal disorders, not elsewhere classified- Primary documented in this encounter [facility] HealthcareHistory general Narrative - Reported* Type Description Date Medical History Chronic back pain Medical History Hx of concussion Medical History acne [facility] Other History general Narrative - Reported* Type Description Date Medical History Chronic back pain Medical History Hx of concussion Medical History acne Medical History chronic depression [facility] Other Reason for referral (narrative)No reason for referral [facility] Work Phone: Reason for visit Narrative* Rehabilitation - Outpatient (Routine) - Authorized Specialty Diagnoses / Procedures Referred By Donya hughes Referred To Contact Physical Therapy Diagnoses Sacrococcygeal disorders, not elsewhere classified Procedures [place] PHYSICAL THERAPY EVALUATION LOW COMPLEX 20 MINS MN OFFICE/OUTPATIENT NEW HIGH MDM 60 MINUTES Feliz Musa MD [address] [place] [address], [address] [place] [id number] Phone: tel: fax: Delia Kwan, PT Referral ID Status Reason Start Date Expiration Date V isits Requested Visits Authorized [id number] Authorized 01/24/2025 03/24/2025 6 6 [facility] N[facility]* Rehabilitation - Outpatient (Routine) - Closed Specialty Diagnoses / Procedures Referred By Contac t Referred To Contact Physical Therapy Diagnoses Sacrococcygeal disorders, not elsewhere classified Procedures [place] PHYSICAL THERAPY EVALUATION LOW COMPLEX 20 MINS [place] OFFICE/OUTPATIENT NEW HIGH MDM 60 MINUTES Feliz Musa MD [address] [place] [address], [address] [place] [id number] Phone: tel: fax: Delia Kwan, PT Referral ID Status Reason Start Date Expiration Date Visits Re quested Visits Authorized [id number] Closed 01/24/2025 03/24/2025 6 6 [facility] HealthcareReason [...] AREAS EACH 15 MIN EXERCISES PHYS/OCC THERAPY Feliz Musa MD [address] [place] [address], [address] [place], [place] [id number] Phone: tel: fax: Delia Kwan, PT Referral ID Status Reason Start Date Expiration Date V isits Requested Visits Authorized [id number] Authorized 03/09/2025 05/07/2025 6 6 [facility] Narrative* Rehabilitation - Outpatient (Routine) - Closed Specialty Diagnoses / Procedures Referred By Contac t Referred To Contact Physical Therapy Diagnoses Sacrococcygeal disorders, not elsewhere classified Procedures MN THER PX 1/> AREAS EACH 15 MIN NEUROMUSC REEDUCA [place] MANUAL THERAPY TQS 1/> REGIONS EACH 15 MINUTES MN THERAPEUTIC PX 1/> AREAS EACH 15 MIN EXERCISES PHYS/OCC THERAPY Feliz Musa MD [facility], [address] [place] [address] Phone: tel: fax: Delia Kwan PT Referral ID Status Reason Start Date Expiration Date Visits Re quested Visits Authorized [id number] Closed 03/09/2025 05/07/2025 6 6 [facility] Advance [...] 01, 2024 6:50a m EMG BLE per Jazmingeoff Yanez [facility] January 06 2:55pm Reason for Visit Admit Date Paresthesias January 06, 2025 2:55p m Chief Complaint Admit Date Amb Documentation December 01, 2024 6:50a m EMG BLE per Jazmin Beau [facility] January 06 2:55pm low back pain [...] DATE CREATED AUTHOR AUTHOR'S ORGANIZ ATION 06/27/2021 [facility] dical Specialist DATE CREATED AUTHOR AUTHOR'S ORGANIZ ATION 12/16/2022 [facility] DATE CREATED AUTHOR AUTHOR'S ORGANIZ ATION 12/01/2024 Iris Wright [facility] DATE CREATED AUTHOR AUTHOR'S ORGANIZ ATION 04/16/2025 [facility] DATE CREATED AUTHOR AUTHOR'S ORGANIZ ATION 04/23/2025 [facility] REASON FOR VISIT (unrecogniz ed section and [...] since 2016. MRI completed on Friday in [place]. 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 Attending Provider Active Start: October 10, 2023 End: October 10, 2023 Becky Romeo DO Primary Care Provider Active Start: October 10, 2023 End: October 10, 2023 Team Status: Inactive Member Role Status Dates Becky Romeo DO Primary Care Prov ider, Attending Provider Active Start: November 11, 2023 End: November 11, 2023 Account Development Specialist Relationship Specialty Start Date End Date Destinee Britton MD [address] [facility] [place] [address] PCP - General Family Medicine 11/12/22 Account Development Specialist Relationship Specialty Start Date End Date Destinee rBitton MD [address] [facility] [place] [address] PCP - General Family Medicine 11/12/22 Account Development Specialist Relationship Specialty Start Date End Date Destinee Britton MD [address] [facility] [place] [address] PCP - General Family Medicine 11/12/22 Account Development Specialist Relationship Specialty Start Date End Date Destinee Britton MD [address] [facility] [place] [address] PCP - General Family Medicine 11/12/22 Account Development Specialist Relationship Specialty Start Date End Date Destinee Britton MD [address] [facility] [place] [address] PCP - General Family Medicine 11/12/22 Account Development Specialist Relationship Specialty Start Date End Date Becky Romeo DO [address] [place] [address];[address] [place] [address] PCP - General Family Medicine 07/20/24 Account Development Specialist Relationship Specialty Start Date End Date Becky Romeo DO [address] [place] [address];[address] [place] [address] PCP - General Family Medicine 07/20/24 Account Development Specialist Relationship Specialty Start Date End Date Becky Romeo DO [address] [place] [address];[address] [place] [address] PCP - General Family Medicine 07/20/24 Account Development Specialist Relationship Specialty Start Date End Date Destinee Britton MD [address] [facility] [place] [address] PCP - General Family Medicine 11/12/22 Account Development Specialist Relationship Specialty Start Date End Date Destinee Britton MD [address] [place] [address] PCP - General Family Medicine 11/12/22 Account Development Specialist Relationship Specialty Start Date End Date Destinee Britton MD [address] [place] [address] PCP - General Family Medicine 11/12/22 Team Status: Inactive Member Role Status Dates Becky Romeo DO Primary Care Provider Active Start: January 11, 2025 End: January 11, 2025 Feliz Musa MD Attending Provider Active Star t: January 11, 2025 End: January 11, 2025 Account Development Specialist Relationship Specialty Start Date End Date Destinee Britton MD [address] [facility] [address] PCP - General Family Medicine 11/12/22 Account Development Specialist Relationship Specialty Start Date End Date Destinee Britton MD [address] [facility] [address] PCP - General Family Medicine 11/12/22 Account Development Specialist Relationship Specialty Start Date End Date Destinee Britton MD [address] [place] [address] PCP - General Family Medicine 11/12/22 Account Development Specialist Relationship Specialty Start Date End Date Destinee Britton MD [address] [facility] [place] [address] PCP - General Family Medicine 11/12/22 Account Development Specialist Relationship Specialty Start Date End Date Destinee Britton MD [address] [facility] [place] [address] PCP - General Family Medicine 11/12/22 Account Development Specialist Relationship Specialty Start Date End Date Destinee Britton MD [address] [facility] [place] [address] PCP - General Family Medicine 11/12/22 Account Development Specialist Relationship Specialty Start Date End Date Destinee Britton MD [address] [place] [address] PCP - General Family Medicine 11/12/22 Account Development Specialist Relationship Specialty Start Date End Date Destinee Britton MD [address] [place] [address] PCP - General Family Medicine 11/12/22 Account Development Specialist Relationship Specialty Start Date End Date Destinee Britton MD [address] [place] [address] PCP - General Family Medicine 11/12/22 Account Development Specialist Relationship Specialty Start Date End Date Destinee rBitton MD [address] [place] [address] PCP - General Family Medicine 11/12/22 Account Development Specialist Relationship Specialty Start Date End Date Destinee Britton MD [address] [facility] [address] PCP - General Family Medicine 11/12/22 Account Development Specialist Relationship Specialty Start Date End Date Destinee Britton MD [address] [facility] [address] PCP - General Family Medicine 11/12/22 Account Development Specialist Relationship Specialty Start Date End Date Destinee Britton MD [address] [facility] [address] PCP - General Family Medicine 11/12/22 Account Development Specialist Relationship Specialty Start Date End Date Destinee Britton MD [address] [facility] [address] PCP - General Family Medicine 11/12/22 Account Development Specialist Relationship Specialty Start Date End Date Destinee Britton MD [address] [facility] [address] PCP - General Family Medicine 11/12/22 Account Development Specialist Relationship Specialty Start Date End Date Destinee Britton MD [address] [facility] [address] PCP - General Family Medicine 11/12/22 Goals (unrecognized section and content) Goals may be documented in a n alternate section Ordered Prescriptions (unrec ognized section and content) Prescription Sig Dispensed Refills Start Date End traMADol (ULTRAM) 50 MG tabletIndications:Strain of lumbar [...] On Fri07/20/24 at 1615, For 1 dose 1614 (Given - Provid er: Ruth Cobos RN) ketorolac (TORADOL) injection 15 mg (COMPLETED) 15 mg, IntraVENous, ONCE, 1 dose, On e 07/20/24 at 1615, Do not administer for [...] BE BASED ON THE PRIMARY CLINICAL RECORDS. [employer] [facility]. provides no warranty or guarantee of the accuracy or completeness of information in this document.
[2025-04-25 09:31] VITALS: BP 110/62; BP 112/59; PULSE 60; PULSE 64; O2SAT 98
[2025-04-25] MEDS: BUPIVACAINE HCL 0.25% PF 25 MG/10 ML VIAL 4 ML INJ (09:33)
[2025-04-25] MEDS: METHYLPREDNISOLONE ACETATE 40 MG/ML VIAL 80 MG INJ (09:33)
[2025-04-25] MEDS: LIDOCAINE HCL 2% 400 MG/20 ML MDV 16 ML INJ (09:33)
--- NOTE | 2025-04-25 09:51 | P.ON_ITS ---
Date of procedure: 04/25/25 Pre-op diagnosis: Pain due to lumbar spondylosis without myelopathy Post-op diagnosis: same as pre-op Procedure: Procedure: Bilateral L4-5, L5-S1 radiofrequency ablation Medications: Bupivacaine 0.25% 4cc, depomedrol 80mg, lidocaine 2% 6cc The patient was seen and examined in the preoperative holding area.? The site was marked.? Written informed consent was obtained and placed on the chart.? The patient was brought to the medical procedure unit and placed in the prone position.? A timeout was completed verifying correct patient, procedure, positioning, and special requirements.? The skin overlying the target points, the designated medial branch, were prepped and draped in the usual sterile fashion.? The target point was achieved with a 20-gauge 15 cm with a 10 mm curved active tip radiofrequency cannula under direct fluoroscopic visualizati on.? The needle was inserted at level L4 on the right side. Needle tip position was confirmed with lateral fluoroscopic position.? Motor stimulation was carried out at 2 Hz up to 5 volts with the absence of extremity activity.? This was repeated at level L5, S1 on right side.?? Sensory stimulation was carried out.? Concordant pain was realized at the above- mentioned sites.? Then radiofrequency lesioning was carried out times 90 seconds at 80 degrees times 2 lesions at each level.? The radiofrequency probe was removed prior to cannula removal.? The above-mentioned injectate was placed in 1 mL increments.? The needle was removed. The same procedure, with the same steps, was then completed on the left side at the same levels. Insertion sites were covered.? The patient was taken to the postoperative recovery area and monitored for an appropriate length of time before being found suitable for discharge in the company of a responsible adult. Anesthesia: Local Surgeon: Ty Fairbanks Pathology: none sent Condition: stable Disposition: no change
== END 2025-04-25 09:58 | disposition home or self-care (01) ==
PROVIDERS: PCP Student in an Organized Health Care Education/Training Program; Visit Provider Anesthesiology
DX: M47.816 Spondylosis without myelopathy or radiculopathy, lumbar region (principal); M54.50 Low back pain, unspecified
CPT/HCPCS: 64635; J0665; J1010

== ENCOUNTER 2025-05-26 08:10 | Outpatient (OUT) | payer BC, SELFPAY ==
--- OUTSIDE RECORDS SUMMARY | 2025-05-26 08:16 | XMS_ITS | Clinical Summary ---
Author Organization [facility] Address [address] [place] [address] Care Team Providers Care Architectural Wood Model Maker Name Role Phone Destinee Britton MD Primary Care Provider [phone] Allergies No known active allergies Medications MedicationSigDispense QuantityRefillsLast FilledStart DateEnd DateStatus hydrOXYzine pamoate (Vistaril) 25 MG capsule Take 25 mg by mouth 3 (three) times a day as vbjjgn864Active cetirizine (ZyrTEC) 10 MG tablet TAKE 1 TABLET BY MOUTH EVERY DAY for 30 DaysActive cyclobenzaprine (Flexeril) 10 MG tablet Take 1 tablet by mouth 3 (three) times a day as neededActive ibuprofen 600 MG tablet PLEASE SEE ATTACHED FOR DETAILED DIRECTIONS for 8 DaysActive methocarbamol (Robaxin) 500 MG tablet Take 1,000 mg by mouth5Active ondansetron ODT (Zofran-ODT) 4 MG disintegrating tablet Take 4 mg by mouth every 8 (eight) hours if needed for rfbger005Active buPROPion XL (Wellbutrin XL) 300 MG 24 hr tablet Take 300 mg by mouth in the morning.5Active gabapentin (Neurontin) 300 MG capsule Take 300 mg by mouth in the morning and 300 mg in the evening and 300 mg before bedtime.5Active etodolac (Lodine) 400 MG tablet Take 400 mg by mouth 2 (two) times a day as kimbwf93/28/2025Active baclofen (Lioresal) 10 MG tablet Take 10 mg by mouth in the morning and 10 mg at noon and 10 mg in the evening. Active metFORMIN XR (Glucophage-XR) 500 MG 24 hr tablet Indications:PCOS (polycystic ovarian syndrome)Take 1 tablet (500 mg) by mouth in the evening. Take with meals Do not crush, chew, or split. 90 tablet 508/6Active norgestimate-ethinyl estradiol (Sprintec 28) 0.25-35 MG-MCG tablet Indications:Encounter for initial prescription of contraceptive pillsTake 1 tablet by mouth Daily 90 tablet 5Active Norgestimate-Eth Estradiol (Hsn-Jf-Hidlpv) 0.18/0.215/0.25 MG-25 MCG tablet Indications:Unwanted fertilityTake 1 tablet by mouth Daily 84 tablet 5Active Xpv-Im-Ytsxgk 0.18/0.215/0.25 MG-25 MCG tablet Indications:Unwanted fertilityTAKE 1 TABLET BY MOUTH EVERY DAY 84 tablet 5Active Norgestimate-Eth Estradiol (Kko-Sg-Jzoswm) 0.18/0.215/0.25 MG-25 MCG tablet Indications:Unwanted fertilityTAKE 1 TABLET BY MOUTH EVERY DAY 84 tablet Discontinued Active Problems ProblemNoted DateDiagnosed DateDiscogenic low back pain08/10/2024Lumbar gnyidheguvzwx08/04/2025PCOS (polycystic ovarian syndrome)05/28/2024cne 05/20/2024cquired zezdbchtekzednqbz53/14/2024ilateral acute otitis media 05/20/20244741Lgosyibkhx40/14/2024Irregular mvwfgiv1305/20/2024Menorrhagia with regular cycle05/20/2024hronic back pain05/20/2024Other chronic pain05/20/2024 Pain in thoracic spine05/20/2024rotruded lumbar disc05/20/2024Seasonal allergic rhinitis due to hkugps4005/20/2024djustment disorder with wovedvi6312/26/2023hase of life aedmeck1504/25/2020Recurrent major depressive disorder, in full remission 04/25/2020 Encounters DateTypeDepartmentCare ImarMlbghmjiiga24/16/2025 6:00 PM EDTTreatment [facility] [address] [facility] [address] [place] [address] Zora, Ofelia, CAR MANAGER Sacrococcygeal disorders, not elsewhere classified (Primary Dx)04/21/2025Travel 04/21/2025Refill [facility] [address] [place] [address] Jovita Salas CNM Unwanted fxxxcdcco73/14/2025Refill [facility] [address] [place] [id number] Destinee Britton MD Unwanted wbwnpakfk48/30/6952Cxxhav09/29/2025 5:30 PM EDTTreatment [facility] [address] [facility] [address] [place] [address] Delia Kwan, PT Sacrococcygeal disorders, not elsewhere classified (Primary Dx)03/29/2025 5:30 PM EDTTreatment [facility] [address] [facility] [address] [place] [address] yRan Barger, CAR MANAGER Sacrococcygeal disorders, not elsewhere classified (Primary Dx)5Bamboo flowsheet [facility] [address] [facility] [address] [place] [address] Ryan Barger, CAR MANAGER 03/29/20254060Ahdndh34/18/2025 6:00 PM EDTTreatment [facility] [address] [place] [address] [place] [address] Zora, Ofelia, CAR MANAGER Sacrococcygeal disorders, not elsewhere classified (Primary Dx)03/24/2025amboo flowsheet [facility] [address] [place] [place] [address] Fredbley, Ofelia, CAR MANAGER 03/24/20252090Ltudlg65/15/2025 1:00 PM EDTTreatment [facility] [address] [place] [address] [place] [address] Ryan Barger, CAR MANAGER Sacrococcygeal disorders, not elsewhere classified (Primary Dx)03/21/2025amb flowsheet [facility] [address] [place] [place] [address] Ryan Barger, CAR MANAGER 03/21/20250527Mngvdc78/09/2025 5:30 PM EDTTreatment [facility] [address] [place] [address] [place] [address] Ryan Barger, CAR MANAGER Sacrococcygeal disorders, not elsewhere classified (Primary Dx)03/15/2025amb flowsheet [facility] [address] [place] [address] [place] [address] Ryan Barger, CAR MANAGER 03/15/20254246Obcreu97/27/2025 5:30 PM EDTTreatment [facility] [address] [place] [place] [address] Ryan Barger, CAR MANAGER Sacrococcygeal disorders, not elsewhere classified (Primary Dx)03/02/2025amb flowsheet [facility] [address] [place] [place] [address] Ryan Barger, CAR MANAGER 03/02/20255059Xerunt82/25/2025 6:00 PM EDTTreatment [facility] [address] [place] [address] [place] [address] Delia Kwan, PT Sacrococcygeal disorders, not elsewhere classified (Primary Dx)02/28/2025amb flowsheet [facility] [address] [place] [place] [address] Delia Kwan, PT 02/28/2025Travelfrom Last 3 Months Immunizations ImmunizationAdministration DatesNext DueDTaP / Hep B / IPV08/28/2006DTaP, Eyturthvnft94/28/2006,09/17/2001,2000,2000,2000Hep B, Adolescent or Aotqapekc34/28/2006,2000,2000,2000HiB, xslyohcmpct70/14/2002,2000,2000,2000Influenza, Recombinant, injectable, preservative free04/29/2024Influenza, injectable, MDCK, preservative free, uwgowgbwmkxn51/04/2020,07/17/2018MMR04/03/2006,03/03/2006,12/23/2001 Meningococcal LIO9U4803/02/2018,05/19/2013Polio, Htyheojkivh27/28/2006,2000, 2000,08/20/20004482NZGY-WAC-2 (COVID-19) vaccine, mRNA, spike protein, LNP, PF, anuj-sucrose, 30 mcg/0.3 mL04/29/2024Tdap107/19/20121002Pnbqdvtcc01/13/2013, 04/03/2006 Family History Medical HistoryRelationNameCommentsDiabetesMotherBarbara WildermuthHeart failure Otherg-maCancerPaternal GrandmotherCarolyn WildermuthDiabetesSister 2Chelsa WildermuthMental illnessSister 2Chelsa WildermuthRelationNameStatusComments FatherAliveMotherBarbara WildermuthAliveOtherPaternal GrandmotherCarolyn WildermuthSister 1AliveSister 2Chelsa Wildermuth Social History Tobacco UseTypesPacks/DayYears UsedDateSmoking Tobacco: NeverSmokeless Tobacco: Never Tobacco Cessation:Counseling Given: Not Answered Comments:Currently Vape everyday Alcohol UseStandard Drinks/WeekCommentsNot Currently0 (1 standard drink = 0.6 oz pure alcohol)caffeine: 1-2 cups per mrrS8775 Health LiteracyAnswerDate Recorded How often do you need to have someone help you when you read instructions, pamphlets, or other written material from your doctor or pharmacy?Never 05/20/2024Social Connection and Isolation PanelAnswerDate RecordedIn a typical week, how many times do you talk on the phone with family, friends, or neighbors?Twice a week05/20/2024How often do you get together with friends or relatives?Once a week05/20/2024How often do you attend tenriism or adventism services?Never05/20/2024o you belong to any clubs or organizations such as tenriism groups, unions, fraternal or athletic groups, or school groups?No 05/20/2024How often do you attend meetings of the clubs or organizations you belong to?Never05/20/2024re you , , , , never , or living with a partner?Never qawrmvg4905/20/2024UDIT-CAnswerDate RecordedQ1: How often do you have a drink containing alcohol?Monthly or less 05/20/2024Q2: How many drinks containing alcohol do you have on a typical day when you are drinking?1 or Q3: How often do you have six or more drinks on one occasion?Less than iycyowd3205/20/2024Overall Financial Resource Strain (CARDIA)AnswerDate RecordedHow hard is it for you to pay for the very basics like food, housing, medical care, and heating?Not hard at all05/20/2024 PHQ-2AnswerDate RecordedPatient Health Questionnaire-2 Vanrf03307/20/2023[facility] [place] [facility] - Occupational Stress QuestionnaireAnswerDate RecordedDo you feel stress - tense, restless, nervous, or anxious, or unable to sleep at night because yourmind is troubled all the time - these days?To some igvduz8105/20/2024Exercise Vital SignAnswerDate RecordedOn average, how many days per week do you engage in moderate to strenuous exercise (like a brisk walk)?0 days05/20/2024On average, how many minutes do you engage in exercise at this level?0 min05/20/2024Hunger Vital SignAnswerDate RecordedWithin the past 12 months, you worried that your food would run out before you got the money to buy more.Never true05/20/2024Within the past 12 months, the food you bought just didn't last and you didn't have money to get more.Never true05/20/2024RAPARE - TransportationAnswerDate RecordedIn the past 12 months, has lack of transportation kept you from medical appointments or from getting medications?No 05/20/2024In the past 12 months, has lack of transportation kept you from meetings, work, or from getting things needed for daily living?No05/20/2024 Housing Stability Vital SignAnswerDate RecordedIn the last 12 months, was there a time when you were not able to pay the mortgage or rent on time?No05/20/2024In the past 12 months, how many times have you moved where you were living?0 05/20/2024t any time in the past 12 months, were you homeless or living in a correction (including now)?No05/20/2024CommentsNoSex and Gender Information ValueDate RecordedSex Assigned at ZxxcuEiqtno19/20/2023 1:54 PM ESTLegal Sex Fhftnn0009/18/2022 6:57 PM EDTGender OyvxsupgHtyrvu25/20/2023 1:54 PM ESTSexual OrientationNot on file Last Filed Vital Signs Vital SignReadingTime TakenCommentsBlood Ojswhxmi293/7808 5:17 PM EDT Lyljz8012 5:17 PM EDTTemperature--Respiratory Xrhu2484 5:17 PM EDTOxygen Annsexlbcs46%02/14/2025 5:17 PM EDTInhaled Oxygen Concentration-- Jfcjwu101 kg (241 lb)02/14/2025 5:17 PM MCGXcidrk652.6 cm (5' 6 )02/14/2025 5:17 PM EDTBody Mass Index38.908 5:17 PM EDT Plan of Treatment DateTypeDepartmentCare Team (Latest Contact Info)Kwbewkbdbgl46/09/2026 5:30 PM ESTOffice Visit [facility] [address] [place] [address] Jovita Salas CNM [address] [place] [address] Health MaintenanceDue DateLast DoneCommentsCOVID-19 Vaccine (4 - 2025- season) 51, 12/19/2020, 11/18/2020Influenza Vaccine (#1)2025 04/29/2024, 07/10/2019, 07/17/2018Pneumococcal Vaccine: Pediatrics (0 to 5 Years) and At-Risk Patients (6 to 64 Years)Aged OutNo longer eligible based on patient's age to complete this topic Insurance Care Teams Team MemberRelationshipSpecialtyStart DateEnd Date Destinee Britton MD [address] [place] [address] PCP - GeneralFamily Medicine11/12/22
--- OUTSIDE RECORDS SUMMARY | 2025-05-26 08:16 | XMS_ITS | Clinical Summary ---
Author Organization [facility] Address [id number] [address] [place] [address] Care Team Providers Care Comber Setter Name Role Phone Vandana Romeoew Sunil BOWEN Primary Care Provider [phone] Allergies No known active allergies Medications * This document contains information received from the source organization and may not represent a complete record from that organization. MedicationSigDispense QuantityRefillsLast FilledStart DateEnd DateStatus MONO-LINYAH 0.25-35 mg-mcg per tablet Take 1 tablet by mouth.Active baclofen (LIORESAL) 10 mg tablet Take 1 tablet (10 mg total) by mouth 3 (three) times a day.Active etodolac (LODINE) 400 mg tablet Take 1 tablet (400 mg total) by mouth 2 (two) times a day as needed.Active HYDROcodone-ibuprofen (VICOPROFEN) 7.5-200 mg per tablet 5Active metFORMIN XR (GLUCOPHAGE XR) 500 mg 24 hr tablet Take 1 tablet (500 mg total) by mouth./6Active desvenlafaxine (PRISTIQ) 50 mg 24 hr tablet Indications:Moderate episode of recurrent major depressive disorder (CMS-HCC) Take 1 tablet (50 mg total) by mouth in the morning. 90 tablet 5Active desvenlafaxine (PRISTIQ) 50 mg 24 hr tablet Indications:Moderate episode of recurrent major depressive disorder (CMS-HCC) Take 1 tablet (50 mg total) by mouth in the morning. 30 tablet 51Discontinued(Reorder) Active Problems ProblemNoted DateDiagnosed DatePCOS (polycystic ovarian syndrome)05/28/2024 Adjustment disorder with cinwfqs7712/26/2023Moderate episode of recurrent major depressive ssgwzrqa60/20/2020Phase of life mjlkzsp8704/25/2020 Encounters * This document contains information received from the source organization and may not represent a complete record from that organization. DateTypeDepartmentCare EudaGwhtywmzdot03/29/1619Ainnuo33/02/20257025Bgiowj55/17/2025 Lcehze8103/16/20252962Puinat25/20/2025Travelfrom Last 3 Months Immunizations ImmunizationAdministration DatesNext DueCOVID-19, mRNA, LNP-S, PF, 100mcg/0.5mL Dose12/19/2020,11/18/2020 Social History Tobacco UseTypesPacks/DayYears UsedDateSmoking Tobacco: NeverChildcareAnswerDate CjawfxwzGoxcihjuiUujfiqx22/12/2019EmploymentAnswerDate RecordedEmploymentUnknown 12/16/2018Hunger ScreeningAnswerDate RecordedWithin the past 12 months we worried whether our food would run out before we got money to buy more.Never True03/23/2025Within the past 12 months the food we bought just didn't last and we didn't have money to get more.Never True03/23/2025Purpose - LifeAnswerDate RecordedPurpose and direction in nvdrZyuvvpw08/13/2021CommentsNoSex and Gender InformationValueDate RecordedSex Assigned at BirthNot on fileLegal Sex Zmhttw5602/09/2015 11:57 AM EDTGender IdentityNot on fileSexual OrientationNot on file Last Filed Vital Signs Vital SignReadingTime TakenCommentsBlood Lefnlozn332/7407/05/2023 8:45 AM EST Pofeg587307/05/2023 8:44 AM SPLCjsktuslgzc92 ??C (98.6 ??F)07/05/2023 8:44 AM EST Respiratory Czkr9669 8:44 AM ESTOxygen Kfvfdutrye17%07/05/2023 8:45 AM ESTInhaled Oxygen Concentration--Mmjvvz210.6 kg (235 lb)07/05/2023 8:44 AM EST Twietv188.6 cm (5' 6 )07/05/2023 8:44 AM ESTBody Mass Index37.9307/05/2023 8:44 AM EST Plan of Treatment Health MaintenanceDue DateLast DoneCommentsDepression Zhclafaez78/12/2012Pap Smear2021TaP,Tdap and Td Vaccines (7 - Td or Tdap), 04/03/2006, 03/03/2006, Additional history existsAdult BMI Qgzzsyekp11/30/2024 07/05/2023OVID-19 Vaccine (2024- season)/, 12/19/2020, 11/18/2020Influenza Dagmudw61, 07/10/2019, 07/17/2018Tobacco Ijjnjdryv31 Medical Devices Not on file Insurance * Guarantor: Edwige Patterson TypeRelation to PatientDate of BirthPhoneBilling AddressPersonal/ItzfhuWuly[address] [facility] [place] [address] * Guarantor: Kelsy Patterson TypeRelation to PatientDate of PhoneBilling AddressPersonal/OomqjxDexrjh19/04/1964 [address] [address] * Guarantor: Wildermuth, Edwige CarolynAccount TypeRelation to PatientDate of BirthPhoneBilling AddressThird Democrat CwyzlupcpXpmo[address] [facility] [place] [address] Care Teams Team MemberRelationshipSpecialtyStart DateEnd Date Ottoniel Romeo DO PCP - GeneralFamily Medicine04/03/20
--- OUTSIDE RECORDS SUMMARY | 2025-05-26 08:16 | XMS_ITS | Clinical Summary ---
Author Organization [facility] Address [address] [facility], [address] [place] [address] Care Team Providers Care Reserves Clerk Name Role Phone Ottoniel Romeo Primary Care Provider [phone] Allergies No known active allergies Medications MedicationSigDispense QuantityRefillsLast FilledStart DateEnd DateStatus buPROPion (WELLBUTRIN XL) 300 MG extended release tablet Take 1 tablet by mouth every bjkdyth20/06/2024Active hydrOXYzine pamoate (VISTARIL) 25 MG capsule Take 1 capsule by mouth 3 times daily as hsqmsc204Active norgestimate-ethinyl estradiol (ANIL) 0.25-35 MG-MCG per tablet Take 1 tablet by mouth dailyActive cyclobenzaprine (FLEXERIL) 10 MG tablet Take 1 tablet by mouth 3 times daily as needed for Muscle spasmsActive traMADol (ULTRAM) 50 MG tablet Take 1 tablet by mouth every 6 hours as needed for Pain. Max Daily Amount: 200 mgActive gabapentin (NEURONTIN) 100 MG capsule Take 3 capsules by mouth 3 times daily for 3 days. Intended supply: 30 days 27 capsule 5Active Social History Tobacco UseTypesPacks/DayYears UsedDateSmoking Tobacco: FormerCigarettes Smokeless Tobacco: Never Tobacco Cessation:Counseling Given: Not Answered Alcohol UseStandard Drinks/WeekCommentsNot Currently0 (1 standard drink = 0.6 oz pure alcohol)CommentsNoSex and Gender InformationValueDate RecordedSex Assigned at FjivuMhewlu37/21/2025 1:04 PM EDTLegal NceKqktkx42/10/2013 1:52 PM ESTGender IdentityNot on fileSexual OrientationNot on file Last Filed Vital Signs Vital SignReadingTime TakenCommentsBlood Tzutlyaz221/76011/24/2024 1:00 PM EDT Pccgi3034 1:00 PM TQCVrurfprodjm55.7 ??C (98 ??F)11/24/2024 1:00 PM EDT Respiratory Yabf533711/24/2024 1:00 PM EDTOxygen Ontbzszoip77%11/24/2024 1:12 PM EDTInhaled Oxygen Concentration--Iqrpvx963.9 kg (240 lb)07/20/2024 3:37 PM EST Cynjkx436.2 cm (5' 7 )07/20/2024 3:37 PM ESTBody Mass Index37.59007/20/2024 3:37 PM EST Plan of Treatment Health MaintenanceDue DateLast DoneCommentsDepression Zciqdo3606/17/2012HIV screen 2015HPV vaccine (1 - 3-dose series)2015Chlamydia/GC xnojku9006/17/2016 Hepatitis C esvbdo2206/17/2018Pap smear2021TaP/Tdap/Td vaccine (7 - Td or Tdap)3107/19/2012, 04/03/2006, 03/03/2006, Additional history existsFlu vaccine (#1)51, 07/10/2019, 07/17/2018Hib vaccineCompleted 09/17/2001, 2000, 2000, Additional history existsHepatitis B vaccine Vsusmsxdc91/28/2006, 03/03/2006, 2000, Additional history existsPolio pwenrqlHmnwcfvch05/28/2006, 03/03/2006, 2000, Additional history exists Varicella ilfbdulHfjdcduof82/13/2013, 04/03/2006Meningococcal (ACWY) vaccine Rmbftdupu12/27/2018, 05/19/2013COVID-19 GigphfdFcaqpthrs52/24/2024, 12/19/2020, 11/18/2020Hepatitis A vaccineAged OutNo longer eligible based on patient's age to complete this topicMeningococcal B vaccineAged OutNo longer eligible based on patient's age to complete this topicPneumococcal 0-49 years VaccineAged OutNo longer eligible based on patient's age to complete this topic Insurance Care Teams Team MemberRelationshipSpecialtyStart DateEnd Date Ottoniel Romeo DO [address] [place] [address];[address] [place] [id number] PCP - [facility]07/20/24
--- OUTSIDE RECORDS SUMMARY | 2025-05-26 08:17 | XMS_ITS | CCD ---
Author Organization [facility] Care Team Providers Care Interactive Media Marketing Director Name Role Phone Radha Aguilera Attending Provider [...] Provider Unava ilable LOU Kraft Attending Provider [phone] Becky Romeo Admitting Unavailable Becky Romeo Attending Unavailable NO FAMILY, PHYSICIAN Primary Care Unavailable Becky Romeo Admitting Unavailable Becky Romeo Attending Unavailable NO FAMILY, PHYSICIAN Primary Care Unavailable Lexy Kraft Admitting Unavailable Lexy Kraft Attending Unavailable NO FAMILY, PHYSICIAN Primary Care Unavailable Tobi LANDIS, Destinee Sweeney Primary Care Provider [phone] Heatheri DO, Becky A Primary Care Provider ROWENA, BECKY A Primary Care Unavailable YOLI LAL Attending Unavailable BRANIECKI, BECKY A Primary Care Unavailable BRANIECKI, BECKY A Primary Care Unavailable PRIYANK GASPAR Attending Unavailable Branfariba DO, Becky Primary Care Provider Lacey Morton LPN Attending Provider Unavailable Mack Akhtar DO Attending Provider [phone] Lencho LANDIS, Feliz Queen Attending Provider Giedraitis , Andrius Donat[place]tautkade Attending Unavailable Giedraitis , Andrius Vytautkade Attending Unavailable Giedraitis MD, Andrius Vytautas Attending Unavailable Giedraitis , Andrius Vytautas Attending Unavailable Giedraitis , Andrius Vytautas Attending Unavailable Giedraitis , Andrius Vytautas Attending Unavailable Giedraitis MD, Andrius Vytautas Attending Unavailable Giedraitis MD, Andrius Vytautas Attending Unavailable Edwina LANDIS, Adam Aguilar Attending Unavail able Braniecki DO, Becky Saldana Referring Un available ROSANA, CHAD Giordano Attending Unavailable BRANIECKI, BECKY [...] Unavailable Unavailable Unavailable Unavailable Medications Current Medications MedicationDrug Class(es)DatesSig (Normalized)Sig (Original)baclofen 10 mg oral tablet (19 sources)gamma-Aminobutyric Acid-ergic AgonistStart: 19-94-9048evdb 1 tablet by mouth once daily at bedtimeBaclofen 10 mg tablet Active 10 MG PO Daily at bedtime January 11, 2025 12:00am Complies with drug ymknrgm38 hr buPROPion hydrochloride 300 mg extended release oral tablet (20 sources)AminoketoneStart: 27-25-9598udvk 1 tablet by mouth once daily in the morningBupropion Hcl (Wellbutrin Xl) 300 mg tablet extended release 24 hr Active 300 MG PO Every morning January 11, 2025 12:00am Complies with drug therapyStart: 05-46-1736cega 1 tablet by mouth every twenty-four hours in the morningbuPROPion XL (Wellbutrin XL) 300 MG 24 hr tablet Take 300 mg by mouth in the morning. 09/09/2024 ActiveStart: 52-16-9727tyvk 1 tablet by mouth once daily in the morningbuPROPion (WELLBUTRIN XL) 300 MG extended release tablet Take 1 tablet by mouth every morning 02/10/2024 Active End: 88-31-1754xxui 1 tablet by mouth every twenty-four hours in the morning buPROPion XL (Wellbutrin XL) 150 MG 24 hr tablet Take 150 mg by mouth in the morning. 12/03/2024 Discontinued (Med list cleanup)Wellbutrin Activecephalexin 500 mg oral capsule (2 sources)Cephalosporin AntibacterialStart: 05-24-2024 End: 31-37-0705milk 1 capsule by mouth in the morning, then take 1 capsule by mouth in the evening, then take 1 capsule by mouth at bedtimecephalexin (Keflex) 500 MG capsule Indications: Candidiasis Take 1 capsule (500 mg) by mouth in the morning and 1 capsule (500 mg) in the evening and 1 capsule (500 mg) before bedtime. Do all this for 7 days. 21 capsule 05/24/2024 05/31/2024 Active cetirizine hydrochloride 10 mg oral tablet (20 sources)Histamine-1 Receptor Antagonisttake 1 tablet by mouth once daily cetirizine (ZyrTEC) 10 MG tablet TAKE 1 TABLET BY MOUTH EVERY DAY for 30 Days Activeclotrimazole 10 mg/ml topical cream (2 sources)Azole AntifungalStart: 05-24-2024 End: 08-70-6565eiiyjfqcchwd (Lotrimin) 1 % cream Indications: Candidiasis Apply topically 2 (two) times a day for 28 days 30 g 2 05/24/2024 06/21/2024 Active Escitalopram (6 sources)Serotonin Reuptake InhibitorLexapro Activeethinyl estradiol 0.035 mg / norgestimate 0.25 mg oral tablet (20 sources)Progestin, EstrogenStart: 27-63-2515exco 1 tablet by mouth once dailyNorgestimate-Eth Estradiol (Hvn-Gy-Dplblo) 0.18/0.215/0.25 MG-25 MCG tablet Indications: Unwanted fertility TAKE 1 TABLET BY MOUTH EVERY DAY 84 tablet 01/26/2025 ActiveStart: 01-18-2025 End: 83-89-0242tudv 1 tablet by mouth once dailynorgestimate-ethinyl estradiol (Sprintec 28) 0.25-35 MG-MCG tablet Indications: Encounter for initial prescription of contraceptive pills Take 1 tablet by mouth Daily 90 tablet 3 02/14/2025 05/15/2025 ActiveStart: 08-10-2024 End: 06-57-9888wnxt 1 tablet by mouth once dailynorgestimate-ethinyl estradiol (Ortho Tri-Cyclen LO) 0.18/0.215/0.25 MG-25 MCG tablet Indications: Unwanted fertility Take 1 tablet by mouth Daily 90 tablet 1 08/10/2024 08/10/2025 Active Start: 03-11-2024 End: 85-60-1238tnot 1 tablet by mouth once dailynorgestimate-ethinyl estradiol (Sprintec 28) 0.25-35 MG-MCG tablet Indications: Encounter for initial prescription of contraceptive pills Take 1 tablet by mouth Daily 90 tablet 2 03/11/2024 Activeetodolac 400 mg oral tablet (18 sources)Nonsteroidal Anti-inflammatory DrugStart: 83-53-1118dgmk 1 tablet by mouth twice daily as neededetodolac (Lodine) 400 MG tablet Take 400 mg by mouth 2 (two) times a day as needed 01/31/2025 ActiveFLUoxetine 20 mg oral capsule (5 sources)Serotonin Reuptake Inhibitortake 1 capsule by mouth in the morning FLUoxetine HCl 20 MG TAKE 1 CAPSULE BY MOUTH IN THE MORNING Oral for 30 Days Activetake 1 capsule by mouth in the morningFLUoxetine HCl 20 MG TAKE 1 CAPSULE BY MOUTH IN THE MORNING Oral for 30 Days Activegabapentin 300 mg oral capsule (20 sources)Anti-epileptic AgentStart: 25-45-9591ijcf 1 capsule by mouth in the morning, then take 1 capsule by mouth in the evening, then take 1 capsule by mouth at bedtimegabapentin (Neurontin) 300 MG capsule Take 300 mg by mouth in the morning and 300 mg in the eveningand 300 mg before bedtime. 11/24/2024 ActiveStart: 08-05-2024 End: 66-44-9803qmsdixwqae (Neurontin) 100 MG capsule Take 300 mg by mouth 08/05/2024 12/03/2024 Discontinued (Med list cleanup)hydrOXYzine pamoate 25 mg oral capsule (20 sources)AntihistamineStart: 52-06-7381lsea 1 capsule by mouth three times daily as neededhydrOXYzine pamoate (Vistaril) 25 MG capsule Take 25 mg by mouth 3 (three) times a day as needed 04/22/2024 Activeibuprofen 600 mg oral tablet (20 sources)Nonsteroidal Anti-inflammatory Drugibuprofen 600 MG tablet PLEASE SEE ATTACHED FOR DETAILED DIRECTIONS for 8 Days Activelidocaine 0.05 mg/mg medicated patch (1 source)Antiarrhythmic, Amide Local AnestheticStart: 11-24-2024 End: 15-14-8541yqqtndojw (LIDODERM) 5 % Place 1 patch onto the skin daily for 10 days 12 hours on, 12 hours off. 10 patch 11/24/2024 12/04/2024 Mekndd52 hr metFORMIN hydrochloride 500 mg extended release oral tablet (20 sources)BiguanideStart: 02-14-2025 End: 44-17-7080ktzm 1 tablet by mouth every twenty-four hours at mealtime metFORMIN XR (Glucophage-XR) 500 MG 24 hr tablet Indications: PCOS (polycystic ovarian syndrome) Take 1 tablet (500 mg) by mouth in the evening. Take with meals Do not crush, chew, or split. 90 tablet 3 02/14/2025 02/14/2026 Active Start: 05-10-2024 End: 46-05-3888tfst 1 tablet by mouth at mealtimemetFORMIN (Glucophage) 500 MG tablet Indications: PCOS (polycystic ovarian syndrome) TAKE 1 TABLET (500 MG) BY MOUTH IN THE MORNING AND IN THE EVENING WITH MEALS 180 tablet 1 06/10/2024 02/14/2025 Discontinuedmethocarbamol 500 mg oral tablet (20 sources)Muscle RelaxantStart: 08-05-2024 End: 09-33-7219bpiszgzbpfgrp (Robaxin) 500 MG tablet Take 1,000 mg by mouth 08/05/2024 ActiveStart: 08-05-2024 End: 27-81-3947ykmd 1 dose by mouth once1,000 mg, Oral, Once, 1 dose, On Victorina 08/05/24 at 1145methylPREDNISolone 4 mg oral tablet (4 sources)CorticosteroidStart: 11-24-2024 End: 15-56-6692tiiftbLDHVHIYtvmgj (MEDROL, QUIN,) 4 MG tablet Follow package insructions. 1 kit 11/24/2024 11/30/2024 ActiveStart: 48-28-7842Ifkgdc 4 MG as directed Orally Throughout the day as directed for 6 days Aug, Active Start: 02-73-8169uapwmmEJUCSITnuqxo 4 MG as directed Orally for daily dose take half with breakfast, half with dinner for 6 days May, Activeondansetron 4 mg disintegrating oral tablet (20 sources)Serotonin-3 Receptor AntagonistStart: 21-11-9936yckg 1 tablet by mouth every eight hours as needed for nauseaondansetron ODT (Zofran-ODT) 4 MG disintegrating tablet Take 4 mg by mouth every 8 (eight) hours ifneeded for nausea 11/28/2024 ActiveStart: 07-20-2024 End: mg, IntraVENous, ONCE, 1 dose, On Fri07/20/24 at 1800take 1 tablet by mouth three times daily as neededOndansetron 4 MG 1 tablet on the tongue and allow to dissolve Orally Up to three times a day as needed for 10 days ActivepredniSONE 50 mg oral tablet (1 source)Start: 07-20-2024 End: 68-36-8932ksya 1 tablet by mouth once dailypredniSONE (DELTASONE) 50 MG tablet Take 1 tablet by mouth daily for 5 days 5 tablet 07/20/2024 07/25/2024 ActivetraMADol hydrochloride 50 mg oral tablet (3 sources)Opioid AgonistStart: 07-20-2024 End: 69-18-4056mqwm 1 tablet by mouth every six hours as needed for paintraMADol (ULTRAM) 50 MG tablet Indications: Strain of lumbar region, initial encounter Take 1 tablet by mouth every 6 hours as needed for Pain for up to 3 days. Intended supply: 3 days. Take lowest dose possible to manage pain Max Daily Amount: 200 mg 12 tablet 07/20/2024 07/23/2024 ActivetraZODone hydrochloride 50 mg oral tablet (2 sources)Serotonin Reuptake Inhibitortake 1 tablet by mouth once daily traZODone HCl 50 MG TAKE 1 TABLET BY MOUTH NIGHTLY Oral for 30 Days Active Completed/Discontinued Medications MedicationDrug Class(es)DatesSig (Normalized)Sig (Original)[id number] 200 actuat albuterol 0.09 mg/actuat metered dose inhaler (3 sources)beta2-Adrenergic AgonistStart: 93-43-9747nnsk 2 puff(s) by inhalation every four to six hours as neededAlbuterol Sulfate HFA 108 (90 Base) MCG/ACT 2 puffs as needed Inhalation every 4-6 hours for 14 days Sep, Not-Taking amoxicillin 500 mg oral capsule (3 sources)Penicillin-class AntibacterialStart: 55-16-3647pjgm 1 capsule by mouth every twelve hoursAmoxicillin 500 MG 1 capsule Orally Twice a day for 10 day(s) Feb, Not-Rabvvo35 hr amoxicillin 1000 mg / clavulanate 62.5 mg extended release oral tablet (5 sources)Penicillin-class AntibacterialStart: 10-10-2023 End: 66-57-3903Bgooymobmfo-Pot Clavulanate (Augmentin Xr) 1,000-62.5 mg tablet extended release 12 hr Discontinued1 TAB PO Every 12 hours October 10, 2023 12:00am November 11, 2023 7:49amStart: 18-60-9149aecg 1 tablet by mouth every twelve hoursAmoxicillin-Pot Clavulanate 875-125 MG 1 tablet Orally every 12 hrs for 10 day(s) May, Activeciprofloxacin 3 mg/ml / dexamethasone 1 mg/ml otic suspension (7 sources)Corticosteroid, Quinolone AntimicrobialStart: 11-11-2023 End: 86-81-8589Funvrratgjqnz-Dexamethasone 0.3-0.1 % drops,suspension Discontinued 4 DROPS EAR-BOTH Twice daily November 11, 2023 12:00am January 11, 2025 9:18amStart: 07-44-3321Ehvzrccvlechh-Dexamethasone Active 4 DROPS EAR-BOTH Twice daily November 11, 2023 12:00amStart: 10-10-2023 End: 53-94-3914Wlcwpkhgvexcw-Dexamethasone 0.3-0.1 % drops,suspension Discontinued 4 DROPS EAR-BOTH Every 12 hours7.5 October 10, 2023 12:00am November 11, 2023 7:49amStart: 10-10-2023 End: 19-01-7555Skwakfognpuhz-Dexamethasone Discontinued 4 DROPS EAR-BOTH Every 12 hours 7.5 October 10, 2023 12:00am November 11, 2023 7:49amStart: 10-10-2023 Ciprofloxacin-Dexamethasone Active 4 DROPS EAR-BOTH Every 12 hours 7.5 October 10, 2023 12:00amcyclobenzaprine hydrochloride 10 mg oral tablet (20 sources)Muscle RelaxantStart: 07-20-2024 End: 28-58-6770xrqw 1 dose by mouth once10 mg, Oral, ONCE, 1 dose, On Fri07/20/24 at 1615Start: 07-20-2024 End: 19-48-1835unkp 1 tablet by mouth three times daily as needed for muscle spasmscyclobenzaprine (FLEXERIL) 10 MG tablet Take 1 tablet by mouth 3 times daily as needed for Muscle spasms 21 tablet 07/20/2024 07/30/2024 Active dexamethasone phosphate 10 mg/ml injectable solution (1 source)CorticosteroidStart: 07-20-2024 End: 60-78-376418 mg, IntraVENous, ONCE, On Fri07/20/24 at 1615, For 1 dose dicyclomine hydrochloride 10 mg oral capsule (4 sources)AnticholinergicStart: 11-11-2023 End: 57-90-3892ojth 1 capsule by mouth three times dailyDicyclomine 10 mg capsule Discontinued 10 MG PO Three times daily November 11, 2023 12:00am November 11, 2023 2:33pmtake 1 capsule by mouth every eight hoursDicyclomine HCl 10 MG 1 capsule Orally Three times a day Activefluconazole 100 mg oral tablet (2 sources)Azole AntifungalStart: 05-20-2024 End: 24-05-3187grgs 1 tablet by mouth once dailyfluconazole (Diflucan) 100 MG tablet Indications: Candidiasis Take 1 tablet (100 mg) by mouth Dailyfor 3 days 3 tablet 05/20/2024 05/23/2024 Expired1 ml ketorolac tromethamine 30 mg/ml cartridge (2 sources)Nonsteroidal Anti-inflammatory Drug, Cyclooxygenase InhibitorStart: 08-05-2024 End: mg, IntraMUSCular, ONCE, 1 dose, On Victorina 08/05/24 at 1145, Do not administer for more than 5 days.Start: 07-20-2024 End: 75-40-227666 mg, IntraVENous, ONCE, 1 dose, On Fri07/20/24 at 1615, Do not administer for more than 5 days.miSOPROStol 0.2 mg oral tablet (3 sources)Prostaglandin E1 AnalogStart: 12-04-2023 End: 57-98-0214amjn 1 tablet by mouth oncemiSOPROStol (Cytotec) 200 MCG tablet Indications: Unwanted fertility , Menorrhagia with regular cycle Take 1 tablet (200 mcg) by mouth 1 (one) time for 1 dose Take 1 tablet the evening before IUD placement . 1 tablet 12/04/2023 05/10/2024 Discontinued (Therapy completed)1 ml morphine sulfate 2 mg/ml cartridge (1 source)Opioid AgonistStart: 07-20-2024 End: 15-75-0520ugtb 1 dose by mouth every hour2 mg, IntraVENous, ONCE, 1 dose, On Fri07/20/24 at 1800, If oral and IV narcotics ordered, use oralfirst and only use IV if oral is ineffective or cannot take oral. Do Not give oral and IV within 1 hour of each other unless specifically ordered. Problems Active Problems Problem ClassificationProblemDateDocumented DateEpisodic/ChronicAbdominal pain (2 sources)Upper abdominal pain; Translations: [Upper abdominal pain, unspecified]35-57-9403HaioojdmBdmbfwjbok disorders (20 sources)Adjustment disorder with anxious mood; Translations: [Adjustment disorder with anxiety]Onset: 476426-37-6951NiumzqjOilwjsnapebyj and procreative management (5 sources)Patient encounter status; Translations: [Encounter for initial prescription of contraceptive pills]87-84-5394QgotghwmWrncmmjew disorders (20 sources)Irregular periods; Translations: [Irregular menstruation, unspecified]Onset: 314316-95-7953YlkmlhxJydp disorders (20 sources)Chronic depression; Translations: [Chronic depression]Onset: 240608-97-0368KnbsxorTffshvg (4 sources)Candidiasis; Translations: [Candidiasis, unspecified]05-24-2024 EpisodicNausea and vomiting (5 sources)Nausea with vomiting, unspecified; Translations: [Nausea and vomiting]EpisodicOther acquired deformities (1 source)Contracture, right ankle; Translations: [CONTRACTURE RIGHT ANKLE] Onset: 44-99-7697MryyotyVvkha acquired deformities (11 sources)Retrolisthesis; Translations: [Spondylolisthesis, site unspecified] EpisodicOther endocrine disorders (20 sources)Polycystic ovary syndrome; Translations: [Polycystic ovarian syndrome]Onset: 895138-85-2907AdtbqyiYqicz nervous system disorders (11 sources)Piriformis syndrome; Translations: [Lesion of sciatic nerve, right lower limb]ChronicOther nervous system disorders (20 sources)Chronic pain; Translations: [Other chronic pain]Onset: 05-20-2024 38-49-2453WiawbkiQfidw nervous system disorders (1 source)Other chronic pain; Translations: [Other chronic pain]Onset: 83-30-4874ZdhmovgTixya nervous system disorders (5 sources)Paresthesia; Translations: [Paresthesia of skin]25-91-4288Mnitugfm Other non-traumatic joint disorders (1 source)Pain in left wristEpisodicOther nutritional; endocrine; and metabolic disorders (6 sources)Body mass index 30+ - obesity; Translations: [Body mass index (BMI) 39.0-39.9, adult]ChronicOther nutritional; endocrine; and metabolic disorders (1 source)Body mass index (BMI) 39.0-39.9, adultChronicOther nutritional; endocrine; and metabolic disorders (2 sources)Insulin resistance; Translations: [Insulin resistance]02-14-2025 ChronicOther skin disorders (2 sources)Hirsutism; Translations: [Hirsutism]09-01-4027MtpdvialMkovw upper respiratory disease (20 sources)Allergic rhinitis due to pollen; Translations: [Allergic rhinitis due to pollen]Onset: 812740-25-0141YjyeusqEggjn upper respiratory infections (8 sources)Acute pharyngitis, unspecified; Translations: [Streptococcal pharyngitis]Onset: 02-06-2022 Resolved: 28-91-0496RrpyqtzcAgkrckgcxlz; intervertebral disc disorders; other back problems (20 sources)Prolapsed lumbar intervertebral disc; Translations: [Other intervertebral disc displacement, lumbarregion]Onset: 4 ChronicSpondylosis; intervertebral disc disorders; other back problems (20 sources)Chronic back pain ; Translations: [Dorsalgia, unspecified]Onset: 981907-96-6382TskhkkjuRigqvypkvdcm (1 source)Pain in left wrist; Translations: [Pain in left wrist]Onset: 11-45-6531Ywddzvmtader (1 source)Low back pain, unspecified; Translations: [Low back pain, unspecified] Onset: 11-24-2024 Past or Other Problems Problem ClassificationProblemDateDocumented DateEpisodic/Chronic Administrative/social admission (20 sources)Phase of life problem; Translations: [Problems of adjustment to life-cycle transitions]Onset: 340524-08-5335LujukjhsFxuqpgyignvvg and screening for infectious disease (4 sources)Contact with and (suspected) exposure to other viral communicable diseases; Translations: [CONTCT EXPS OTH VIRL COMMUNICABL DZ]Onset: 05-13-2020 EpisodicOther acquired deformities (20 sources)Acquired spondylolisthesis; Translations: [Spondylolisthesis, site unspecified]Onset: 409294-30-4112PfsioruuUkyhd connective tissue disease (5 sources)Pain in right foot; Translations: [PAIN IN RIGHT FOOT]Onset: 62-86-8252UcqfgiipUjywp connective tissue disease (1 source)Peroneal tendinitis, right leg; Translations: [PERONEAL TENDINITIS RIGHT LEG]Onset: 35-30-3537GhyzcmlbZnjmn lower respiratory disease (1 source)Chronic cough; Translations: [Chronic cough]Onset: 70-57-3735Vkysqbbx Other non-traumatic joint disorders (4 sources)Other specified joint disorders, right ankle and foot; Translations: [OTHER SPEC JOINT D/O RT ANKLEFOOT]Onset: 64-53-3730LhxncrhhBgnuq non-traumatic joint disorders (5 sources)Pain in right ankle and joints of right foot; Translations: [PAIN IN RIGHT ANKLE]Onset: 64-53-6752JaxphbeoNhssg non-traumatic joint disorders (1 source)Other instability, right ankle; Translations: [OTHER INSTABILITY RIGHT ANKLE]Onset: 45-39-8853CidtjpuyNpjao screening for suspected conditions (not mental disorders or infectious disease) (7 sources)Encounter for screening for other metabolic disorders; Translations: [Encounter for screening for cardiovascular disorders]Onset: 72-65-6585Hjkubyzz Other skin disorders (2 sources)Nonscarring hair loss, unspecified; Translations: [Nonscarring hair loss, unspecified]Onset: 88-57-4749HibbaksxLdsza skin disorders (20 sources)Acne; Translations: [Acne, unspecified]Onset: 318303-11-7007 EpisodicOtitis media and related conditions (20 sources)Acute bilateral otitis media ; Translations: [Otitis media, unspecified, bilateral]Onset: 196643-47-5547NyswkchvXxaralh and strains (5 sources)Strain of muscle(s) and tendon(s) of peroneal muscle group at lower leg level, right leg, sequela; Translations: [Sprain of other ligament of right ankle, subsequent encounter]Onset: 63-07-6981NlmzghgpIqxxdbyyngot (1 source)Exposure to COVID-19 virus Z20.822Onset: 07-03-2021 Resolved: 26-76-2613Konfgexthwhg (1 source)Cough, unspecified type R05.9Unclassified (1 source)Acute cough R05.1Viral infection (1 source)COVID-19Onset: 07-03-2021 Resolved: 07-03-2021 Results Test NameValueInterpretationReference RangeFacilityHCG ( test) Ql (U)on 38-06-7766Eoehrvqplcjeje and review of laboratory resultsNormalNOMS Healthcare Preg Test, UrNegativeNegativeNOMS [facility] HospitalNOWI HealthcareUrinalysis macro (dipstick) panel (U)on 74-62-2030Mkjepfout, UA3+Negative - 4(70) +++ mg/dLNOMS HealthcareBlood, UANegativeNegative - 50 Aidan/mcLNOMS HealthcareClarity, UAClear N[facility] HealthcareColor, UAYellowNOMS HealthcareGlucose, UANegativeNegative - 2000(110) ++++ mg/dLNOMS HealthcareInterpretation and review of laboratory resultsAbnormalNOMS HealthcareKetones, UAPositiveNegative - 160(16) ++++ mg/dL N[facility]S HealthcareLeukocytes, UA1+Negative - 500+++ Samira/mcLNOMS HealthcareNitrite, UANegativeNegative - PositiveNOMS HealthcarepH, UA65 - 9NOMS HealthcareProtein, UA1+Negative - 2000(20) ++++ mg/dLNOMS HealthcareSpec Grav, UA1.021 - 1.03NOMS HealthcareUrobilinogen, UA0.20.2 - 12 mg/dLNOMS HealthcareNOMS HealthcareCT LUMBAR SPINE WO CONTRASTon 04-58-5813HN LUMBAR SPINE WO CONTRASTEXAMINATION: CT OF THE LUMBAR SPINE WITHOUT CONTRAST [...] Signed by: Octavio Lowe MD 07/20/24 Final resultNormalMerLawrence+Memorial Hospital Lumbar spine WO contraston 07-20-2024 Mild wedge compression fracture of L1 [...] facets throughout with no significant spinal stenosis. [facility] RIS CONSOLIDATEDEXAMINATION: CT OF THE LUMBAR SPINE WITHOUT CONTRAST [...] SOFT TISSUES/RETROPERITONEUM: No paraspinal mass is seen. Octavio Tian MD - 07/20/2024 EXAMINATION: CT OF THE [...] facets throughout with no significant spinal stenosis. [facility] CenterRadiology Study observation (narrative)[facility] CenterCT Lumbar spine WO contrastOrdered By: Octavio Lowe on 44-13-7854[facility] Work Phone: HCG, ,Urineon 68-09-7387Syek HCG ( test) Ql (U)NegativeNormalNEGMerWindham Hospitalment on above:Result Comment: Specimens with hCG levels near the threshold of the test (25 mIU/mL) may give a negative or indeterminate result. In such cases, another test should be performed with a new specimen in 48-72 hours. If early is suspected clinically in this setting, correlation with quantitative serum b-hCG level is suggested. [employer] has confirmed the use of plasma for this test. This has not been cleared or approved by the U.S. Food and Drug Administration. The FDA has determined that such clearance is not necessary.Performed By: #### UHCG #### [facility] [address] [place] [address] [place] [address] Rv Servicer: Roge Rios, MDMicroscopic Urinalysison 34-09-6993Zyjqhwytt sediment LM Ql (Urine sed)1+AbnormalNoneBon Shelby Memorial HospitalEpithelial cells LM.HPF (Urine sed) [#/Area]2 TO 5Bon [facility] HospitalInterpretation and review of laboratory resultsAbnormalBon Shelby Memorial HospitalRBC LM.HPF (Urine sed) [#/Area]0 TO 2Bon [facility] HospitalRenal Epithelial, UA2 TO 50 /HPFBon Shelby Memorial HospitalWBC LM.HPF (Urine sed) [#/Area]5 TO 10Bon [facility] HospitalBon [facility] Memorial HospitalPregnancy, Urineon 49-66-3859LYE ( test) Ql (U)NegativeNEGATIVEMountain View Regional Medical CenterComment on above:Specimens with hCG levels near the threshold of the test (25 mIU/mL) may give a negative or indeterminate result. In such cases, another test should be performed with a new specimen in 48-72 hours. If early is suspected clinically in this setting, correlation with quantitative serum b-hCG level is suggested. [employer] has confirmed the use of plasma for this test. This has not been cleared or approved by the U.S. Food and Drug Administration. The FDA has determined that such clearance is not necessary. [facility] HealthUrinalysison 58-30-0365Asnpjauqu Ql (U)NegativeNEGATIVE [facility] HealthClarity (U)SLIGHTLY CLOUDYAbnormalClearBon SecCleveland Clinic [place] HospitalColor (U)YellowYellowBon Shelby Memorial HospitalGlucose Test strip (U) [Mass/Vol]NegativeNEGATIVE mg/dLBon [facility] Memorial HospitalHemoglobin Auto test strip Ql (U)NegativeNEGATIVEBon [facility] HealthInterpretation and review of laboratory resultsAbnormalBon [facility] Community [facility] HealthKetones (U) [Mass/Vol] NegativeNEGATIVE mg/dLBon Shelby Memorial HospitalLeukocyte esterase Test strip Ql (U)SMALLAbnormalNEGATIVEBon [facility] HealthNitrite Ql (U)NegativeNEGATIVE [facility] HealthpH (U)8.0 [pH]5.0 - 9.0[facility] HealthProtein (U) [Mass/Vol]NegativeNEGATIVE mg/dLBon [facility] HealthSpecific gravity (U) [Rel density]1.0201.010 - 1.020Bon [facility] Memorial HospitalUrobilinogen Qn (U) Normal0.0 - 1.0 EU/dLBon [facility] HealthUrinalysis, Routineon 04-48-0963Djednahpr, SemiQt,UrNegativeNormalNEGKindred Healthcare Comment on above:Performed By: #### BHAVANI HIDALGO #### [facility] [address] [place] [address] Rv Servicer: Serjio Carballo, UrineNegativeNormalKettering Health Dayton Comment on above:Performed By: #### BHAVANI HIDALGO #### [facility] [address] [place] [address] Rv Servicer: Bob Carballo (U)SLIGHTLY CLOUDYAbnormalCLEARMercy Gotham HospitalComment on above:Performed By: #### UA, UMICAO #### [facility] [address] [place] [address] [address] [place], [place] [id number] Rv Servicer: BORIS Carballoolor (U)YellowNormalYELMerSilver Hill Hospital Comment on above:Performed By: #### UA, UMICAO #### [facility] [address] [place] [address] [address] [place], [place] [phone] Rv Servicer: Roge Rios MDGlucose Ql (U)NegativeNormalNEGMerSilver Hill HospitalComment on above:Performed By: #### UA, UMICAO #### [facility] [address] [place] [address] [address] [place], [place] [phone] Rv Servicer: Roge Rios MDKetones Ql (U)NegativeNormalNEGMercy Gotham HospitalComment on above:Performed By: #### ROCKY, UMICAO #### [facility] [address] [place] [address] [address] [place], [place] [phone] Rv Servicer: Roge Rios MDLeukocyte esterase Test strip Ql (U)SMALLAbnormal NEGKindred HealthcareComment on above:Performed By: #### UA, UMICAO #### [facility] [address] [place] [address] [address] [place], [place] [phone] Rv Servicer: Roge Rios MDNitrite,UrNegativeNormalKettering Health Dayton Comment on above:Performed By: #### UA, UMICAO #### [facility] [address] [place] [address] [address] [place], [place] [phone] Rv Servicer: EH Carballo,Ur8.7Fztayg0.0-9.0MerSilver Hill HospitalComment on above:Performed By: #### UA, UMICAO #### [facility] [address] [place] [address] Dr[address] [place], [place] [phone] Rv Servicer: HEBER Carballorotein Ql (U)NegativeNormalNEGMercy Gotham HospitalComment on above:Performed By: #### UA, UMICAO #### [facility] [address] [place] [address] Dr. [place], [place] [address] Rv Servicer: CHANTAL Carballopec. [place],Ur1.048Punudt1.010-1.020Kindred HealthcareComment on above:Performed By: #### ROCKY, UMICAO #### [address] [place], [place] [address] Rv Servicer: Roge Rios MDUrobilinogen,UrNormalNormal0.0-1.0Kindred HealthcareComment on above:Performed By: #### ROCKY UMICAO #### [address] [place], [place] [address] Rv Servicer: Roge Rios MDUrinalysis,Microon 31-84-0405Trfvedtqk sediment LM Ql (Urine sed)1+AbnormalNONEMeThe Hospital of Central ConnecticutComment on above:Performed By: #### ROCKY UMICAO #### [address] [place], [place] [address] Rv Servicer: Roge Rios MDEpithelial cells LM Ql (Urine sed)2 TO 2Hqebgs6-20 Kindred HealthcareComment on above:Performed By: #### ROCKY UMICAO #### [address] [place], [place] [address] Rv Servicer: Roge Rios MDEpithelial, Renal2 TO 1Qgdpnp0QqozuKindred HealthcareComment on above:Performed By: #### ROCKY UMICAO #### [address] [place], [facility]83 Rv Servicer: Roge Rios MDUrine RBC's0 TO 1Dyamwm5-9VecxrParkview Health Bryan Hospital Comment on above:Performed By: #### ROCKY, UMICAO #### [facility] [address] [place] [address] [place] [address] Rv Servicer: Roge Rios MDUrine WBC's5 TO 70Ydpqlt5-3IzpqdKindred Healthcare Comment on above:Performed By: #### UA, JHONATANO #### [facility] [address] [place] [address] Rv Servicer: BORIS CarballoOVID + FLU Quick Testingon 11-38-4097GODQ-CoV-2 (COVID-19) RNA THA+probe Ql (Unsp spec)NegativeCastleton Smart [employer] Other COVID + FLU Quick TestingNegativeCastleton [employer] Other XR wrist LT min 3V*on 94-15-0628TI wrist LT min 3V* [facility] [employer] Other XR wrist LT min 3V*[facility] [employer] Other XR wrist LT min 3V*[address] [place] [address] [employer] Other XR wrist LT min 3V*[place] [address]Lrqcf [employer] Other XR wrist LT min 3V*XRay [facility] [employer] Other XR wrist LT min 3V*SignedCastleton [employer] Other XR wrist LT min 3V*Patient: Edwige Sierra MR#: [id number] [employer] Other XR wrist LT min 3V*[id number] [employer] Other XR wrist LT min 3V*: 2000 Acct:[id number] [employer] Other XR wrist LT min 3V*Age/Sex: 22 / F ADM Date: 12/09/22 [employer] Other XR wrist LT min 3V*Loc: XDUCLY Room: Type: [facility] [employer] Other XR wrist LT min 3V*Attending Dr: Lexy BLAKE [employer] Other XR wrist LT min 3V*Copies to: LOU Hernandez [employer] Other XR wrist LT min 3V*Ordering Provider: INOCENCIO Hernandezbarton county memorial hospital [employer] Other XR wrist LT min 3V*Date of Service: 12/09/22[place] [employer] Other XR wrist LT min 3V* XR/XR wrist LT min 3V*: Left wrist [facility] medical centerGoodman Networks Other XR wrist LT min 3V*([id number]) XR/XR hand LT min 3V*: Left wrist [facility] medical centerGoodman Networks Other XR wrist LT min 3V*3 views LEFT hand plain [facility] [employer] Other XR wrist LT min 3V*COMPARISON: Chrysallis [employer] Other XR wrist LT min 3V*HISTORY: LEFT hand injury. Pain involving the distal middle finger. Dorsal wrist [facility] [employer] Other XR wrist LT min 3V*ACUTE FINDINGS: [employer] Other XR wrist LT min 3V*DEGENERATIVE CHANGE: Unremarkable [employer] Other XR wrist LT min 3V*SOFT TISSUE FINDINGS: Unremarkable [employer] Other XR wrist LT min 3V*JOINT EFFUSION: [employer]he[employer] TherapeuticsMeetMe, Inc. Other XR wrist LT min 3V*POSTOP CHANGES: [employer] Other XR wrist LT min 3V*BONY MINERALIZATION: AdequateCastleton [employer] Other XR wrist LT min 3V* XR/XR hand LT min 3V*[employer] Other XR wrist LT min 3V*IMPRESSION: No acute findingsCastleton [employer] Other XR wrist LT min 3V*4 views LEFT wrist plain filmCastleton [employer] Other XR wrist LT min 3V*BONE MINERALIZATION: AdequateCastleton [employer] Other XR wrist LT min 3V*IMPRESSION: No acute bony findings. [employer] Other XR wrist LT min 3V*Impression dictated by: Misbah Mast M.D.12/09/2022 11:59 [facility] [employer] Other XR wrist LT min 3V*Dictation Location: [place] [address] [employer] Other XR wrist LT min 3V*Transcribed By: PWS 12/09/22 [facility] [employer] Other XR wrist LT min 3V*Dictated By: Misbah Mast DO 12/09/[address] [place], [place] [address] Other XR wrist LT min 3V*Signed By:[employer] Other XR wrist LT min 3V*12/09/[address] [place], [place] [address] Other XR wrist LT min 3V*[facility] Main [place] [address] [place] [address] XRay Report Signed Patient: Edwige Sierra MR#: [id number] : 2000 Acct:[id number] Age/Sex: 22 / F ADM Date: 12/09/22 Loc: XDUC Room: Type: [facility] Attending Dr: Lexy BLAKE Copies to: LOU Hernandez Ordering Provider: LOU Hernandez Date of Service: 12/09/22 XR/XR wrist LT min 3V*: Left wrist pain ([id number]) XR/XR hand LT min 3V*: Left wrist [...] Misbah Mast M.D.12/09/2022 11:59 AM Dictation Location: [place] [address] Transcribed By: [facility] 12/09/22 1159 Dictated By: Misbah Mast DO 12/09/22 1158 Signed By: 12/09/22 1159Sheltering Arms HospitalA1C with Estimated Average Gluon 40-01-1668LwH1f (Bld) [Mass fraction]5.200 %Normal4.3-5.6 %[facility] [employer] Other HbA1c (Bld) [Mass fraction]103 mg/dLNorth Valley Hospital Oxford [employer] Other Glucose [Mass/Vol]103 mg/dLSheltering Arms HospitalComment on above:Result Comment: PERFORMED BY: [place] [id number] PATHOLOGIST HUMAN DEVELOPMENT PROFESSOR KULWANT GOMEZ M.D.Performed By: #### CBC, TSH3, CMP, A1C WT eA, LIPID #### [place] [address] ZWEBaC4y (Bld) [Mass fraction]5.2 %Normal4.3-5.6FGrand Lake Joint Township District Memorial HospitalComment on above:Result Comment: Increased risk for diabetes: 5.7 - 6.4 diabetes: >6.4 glycemic control for adults with diabetes: <7.0Performed By: #### CBC, TSH3, CMP, A1C WTH eA, LIPID #### [facility] [address] [place] [address] USAAlbumin [Mass/volume] in Serum or PlasmaOrdered By: Becky Romeo on 43-49-9574Idrbito [Mass/Vol]3.9 g/dL3.2-5.5FGrand Lake Joint Township District Memorial HospitalBasophils Auto (Bld) [#/Vol]Ordered By: Becky Romeo on 54-54-9206Msjjqrmua (Bld) [#/Vol]0.0 10*3/uL0.0-0.2FGrand Lake Joint Township District Memorial HospitalBasophils/100 WBC Auto (Bld)Ordered By: Becky Romeo on 77-24-9301Jjgsicrnu/100 WBC (Bld)0.6 %.[facility] Cholesterol [Mass/volume] in Serum or PlasmaOrdered By: Becky Romeo on 82-69-9333Gslhjgaxpka [Mass/Vol]195 mg/iRRjotrk619-783 mg/dLPromedica Bay Park HospitalComment on above:Chol less than 200 mg/dl low riskChol 201-239 mg/dl borderline riskChol 240 mg/dl and greater high riskCholesterol in LDL Calc [Mass/Vol]Ordered By: Becky Romeo on 80-80-5481Hwevwabywtn in LDL [Mass/Vol]146 mg/dL0-100Prom[facility] HospitalComment on above:LDL ATP III CLASSIFICATIONLDL less than 100 mg/dL OptimalLDL 100-129 mg/dL Near or above pfulrjaDZZ323-606 mg/dL Borderline highLDL 160-189 mg/dL HighLDL greater than 189 mg/dL Very highCholesterol in VLDL Calc [Mass/Vol]Ordered By: Becky Romeo on 62-12-2388Qrwbcwyedeq in VLDL [Mass/Vol]16 mg/dLPromedica Bay Park HospitalComplete Blood Count Auto Diffon 26-06-0257Acgyjhied (Bld) [#/Vol] 0.071463307 10*3/uLNormal0.0-0.2 10*3/uLNorth [employer] Other Basophils/100 WBC (Bld)0.600 %. %[employer] Other Eosinophils (Bld) [#/Vol]0.684901451 10*3/uLNormal0.0- 0.45 10*3/[employer] Other Eosinophils/100 WBC (Bld)2.300 %. %[employer] Other Erythrocyte distribution width (RBC) [Ratio]12.400 % Nvpwpv22.9-15.3 %[employer] Other Hematocrit (Bld) [Volume fraction]39.700 %Yftvcp91.0- 46.4 %[employer] Other Hemoglobin (Bld) [Mass/Vol]13.486290 g/dHExxuum83.8- 15.4 g/dLMeetMe, Inc. Other Lymphocytes (Bld) [#/Vol]1.732448077 10*3/uLNormal 1.00-4.8 10*3/[employer] Other Lymphocytes/100 WBC (Bld)22.500 %. %[employer] Other MCH (RBC) [Entitic mass]30.2000 mmVebkzw65.7-34.3 pg [employer] Other MCV (RBC) [Entitic vol]90.5000 oDOuhtsi18-324 fLGoodman Networks Other Monocytes (Bld) [#/Vol]0.159887132 10*3/uLNormal0.0- 0.8 10*3/[employer] Other Monocytes/100 WBC (Bld)6.800 %. %[employer] Other Neutrophils (Bld) [#/Vol]3.955305170 10*3/uLNormal1.8- 7.7 10*3/[employer] Other Neutrophils/100 WBC (Bld)67.800 %. %[employer] Other Platelet mean volume (Bld) [Entitic vol]9.0000 fL Normal6.3-10.7 fLCastleton [employer] Other WBC (Bld) [#/Vol]5.291507004 10*3/uLNormal3.8-11.6 10*3/[employer] Other Complete Blood Count Auto Diff5.6 10*3/uLNormal3.8- 11.6 10*3/[employer] Other Complete Blood Count Auto Diff33.4 g/dYWgzhrt35.0-35.0 g/dLWorkec [employer] Other Complete Blood Count Auto Diff0.3 /100{WBC}Normal0-0.5 /100{WBC}[employer] Other Basophils (Bld) [#/Vol]0.0 10*3/uLNormal0.0-0.2 [facility] HospitalComment on above:Result Comment: PERFORMED BY: [address] [address] PATHOLOGIST HUMAN DEVELOPMENT PROFESSOR KULWANT GOMEZ M.D.Performed By: #### CBC, TSH3, CMP, A1C [facility] eA, LIPID #### [facility] [address] [place] [address] USABasophils/100 WBC (Bld)0.6 %Normal.[facility] HospitalComment on above:Performed By: #### CBC, TSH3, CMP, A1C WTH eA, LIPID #### [facility] [address] [place] [address] USAEosinophils (Bld) [#/Vol]0.1 10*3/uLNormal0.0-0.45 [facility] HospitalComment on above:Performed By: #### CBC, TSH3, CMP, A1C WTH eA, LIPID #### [place] [address] USAEosinophils/100 WBC (Bld)2.3 %Normal.[facility] HospitalComment on above:Performed By: #### CBC, TSH3, CMP, A1C WTH eA, LIPID #### [place] [address] USAErythrocyte distribution width (RBC) [Ratio]12.4 %Normal 11.9-15.3FGrand Lake Joint Township District Memorial HospitalComment on above:Performed By: #### CBC, TSH3, CMP, A1C WTH eA, LIPID #### [place] [address] USAHematocrit (Bld) [Volume fraction]39.7 %Pxffyk15.0-46.4 [facility] HospitalComment on above:Performed By: #### CBC, TSH3, CMP, A1C WTH eA, LIPID #### [place] [address] USAHemoglobin (Bld) [Mass/Vol]13.2 g/zKZalqlj83.8-15.4 [facility] HospitalComment on above:Performed By: #### CBC, TSH3, CMP, A1C WTH eA, LIPID #### [place] [address] USALymphocytes (Bld) [#/Vol]1.3 10*3/uLNormal1.00-4.8 [facility] HospitalComment on above:Performed By: #### CBC, TSH3, CMP, A1C WTH eA, LIPID #### [place] [address] USALymphocytes/100 WBC (Bld)22.5 %Normal.[facility] HospitalComment on above:Performed By: #### CBC, TSH3, CMP, A1C WTH eA, LIPID #### [facility] [address]H (RBC) [Entitic mass]30.2 amFwjhzd16.7-34.3FGrand Lake Joint Township District Memorial HospitalComment on above:Performed By: #### CBC, TSH3, CMP, A1C WTH eA, LIPID #### [facility] [address]V (RBC) [Entitic vol]90.5 oEMjeque39-942OazztggccPromedica Bay Park HospitalComment on above:Performed By: #### CBC, TSH3, CMP, A1C WTH eA, LIPID #### [facility] [address] [place] [address] USAMean Corpuscular HGB Conc33.4 g/nHFmbhcz99.0-35.0[facility] HospitalComment on above:Performed By: #### CBC, TSH3, CMP, A1C WTH eA, LIPID #### [facility] [address] [place] [address] USAMonocytes (Bld) [#/Vol]0.4 10*3/uLNormal0.0-0.8[facility] HospitalComment on above:Performed By: #### CBC, TSH3, CMP, A1C WTH eA, LIPID #### [facility] [address] [place] [address] USAMonocytes/100 WBC (Bld)6.8 %Normal.[facility] HospitalComment on above:Performed By: #### CBC, TSH3, CMP, A1C WTH eA, LIPID #### [facility] [address] [place] [address] USANeutrophils (Bld) [#/Vol]3.8 10*3/uLNormal1.8-7.7FGrand Lake Joint Township District Memorial HospitalComment on above:Performed By: #### CBC, TSH3, CMP, A1C WTH eA, LIPID #### [facility] [address] [place] [address] USANeutrophils/100 WBC (Bld)67.8 %Normal.[facility] HospitalComment on above:Performed By: #### CBC, TSH3, CMP, A1C WTH eA, LIPID #### [facility] [address] [place] [address] USANRBC%0.3 /100{WBC}Normal0-0.5FGrand Lake Joint Township District Memorial HospitalComment on above:Performed By: #### CBC, TSH3, CMP, A1C WTH eA, LIPID #### [facility] [address] [place] [address] USAPlatelet mean volume (Bld) [Entitic vol]9.0 fLNormal 6.3-10.7FGrand Lake Joint Township District Memorial HospitalComment on above:Performed By: #### CBC, TSH3, CMP, A1C WTH eA, LIPID #### [facility] [address] [place] [address] USAPlatelets (Bld) [#/Vol]232 10*3/sXFkrmcz999-012PnswlqtpuPromedica Bay Park HospitalComment on above:Performed By: #### CBC, TSH3, CMP, A1C WTH eA, LIPID #### [facility] [address] [place] [address] USARBC (Bld) [#/Vol]4.38 10*6/uLNormal3.60-5.00[facility] HospitalComment on above:Performed By: #### CBC, TSH3, CMP, A1C WTH eA, LIPID #### [facility] [address] [place] [address] USAWBC (Bld) [#/Vol]5.6 10*3/uLNormal3.8-11.6FGrand Lake Joint Township District Memorial HospitalComment on above:Performed By: #### CBC, TSH3, CMP, A1C WTH eA, LIPID #### [facility] [address] [place] [address] USAComprehensive Metabolic Panelon 55-35-4714Vlzsuzn [Mass/Vol]3.923313 g/dLNormal3.2-5.5 g/dLNort [employer] Other Bilirubin [Mass/Vol]0.3503839 mg/dLNormal0.3-1.2 mg/dL [employer] Other Calcium [Mass/Vol]9.2536164 mg/dLNormal8.2-10.2 mg/dL [employer] Other CO2 [Moles/Vol]23.01454887 mmol/KOtguun21.0-30.0 mmol/LNbarton county memorial hospital [employer] Other Creatinine [Mass/Vol]0.24814695 mg/dLNormal0.44-1.03 mg/dLCastleton [employer] Other Potassium [Moles/Vol]3.49566453 mmol/LNormal3.5-5.1 mmol/LNbarton county memorial hospital [employer] Other Protein [Mass/Vol]6.193962 g/dLNormal6.1-7.9 g/dLCastleton [employer] Other Comprehensive Metabolic Panel> 60[facility] [employer] Other Comprehensive Metabolic Panel2.7 g/dLWorkec [employer] Other Albumin [Mass/Vol]3.9 g/dLNormal3.2-5.5FGrand Lake Joint Township District Memorial HospitalComment on above:Performed By: #### CBC, TSH3, CMP, A1C [facility] eA, LIPID #### [facility] [address] [place] [address] USAAlbumin/Globulin [Mass ratio]1.4 {ratio}[facility] HospitalComment on above:Performed By: #### CBC, TSH3, CMP, A1C WT eA, LIPID #### [facility] [address] [place] [address] USAALP [Catalytic activity/Vol]69 U/TXswyau82-11BhskclzhcPromedica Bay Park HospitalComment on above:Performed By: #### CBC, TSH3, CMP, A1C [facility] eA, LIPID #### [facility] [address] [place] [id number] USAALT [Catalytic activity/Vol]34 U/XAnjtct20-07Nukiw [employer] Other Comment on above:Performed By: #### CBC, TSH3, CMP, A1C WTH eA, LIPID #### [facility] [address] [place] [address] USAAnion gap [Moles/Vol]9.7 mmol/LNormal6.0-15.0[facility] HospitalComment on above:Performed By: #### CBC, TSH3, CMP, A1C WTH eA, LIPID #### [facility] [address] [place] [address] USAAST [Catalytic activity/Vol]30 U/IJmcwha06-69QscqgveabPromedica Bay Park HospitalComment on above:Performed By: #### CBC, TSH3, CMP, A1C WTH eA, LIPID #### [facility] [address] [place] [address] USABilirubin [Mass/Vol]0.7 mg/dLNormal0.3-1.2FGrand Lake Joint Township District Memorial HospitalComment on above:Performed By: #### CBC, TSH3, CMP, A1C WTH eA, LIPID #### [facility] [address] [place] [address] USACalcium [Mass/Vol]9.2 mg/dLNormal8.2-10.2FGrand Lake Joint Township District Memorial HospitalComment on above:Performed By: #### CBC, TSH3, CMP, A1C WTH eA, LIPID #### [facility] [address] [place] [id number] USAChloride [Moles/Vol]108 mmol/JAdeqqs04-716GwgkzfvooPromedica Bay Park HospitalComment on above:Performed By: #### CBC, TSH3, CMP, A1C WTH eA, LIPID #### [facility] [address] [place] [address] USACO2 [Moles/Vol]23.1 mmol/YCqrphq66.0-30.0[facility] HospitalComment on above:Performed By: #### CBC, TSH3, CMP, A1C WTH eA, LIPID #### [facility] [address] [place] [address] USACreatinine [Mass/Vol]0.75 mg/dLNormal0.44-1.03[facility] HospitalComment on above:Performed By: #### CBC, TSH3, CMP, A1C WTH eA, LIPID #### [facility] [address] [place] [address] USAEstimated GFR ( Queenie> 60NoPremier Health Atrium Medical CenterComment on above:Result Comment: GFR estimated reference range: According to KDOQI guidelines, <60 ml/min/1.73m2 is sufficient to diagnose a patient with chronic kidney disease.Performed By: #### CBC, TSH3, CMP, A1C WTH eA, LIPID #### [facility] [address] [place] [address] USAEstimated GFR (Non- Am> 60NoPremier Health Atrium Medical CenterComment on above:Performed By: #### CBC, TSH3, CMP, A1C WTH eA, LIPID #### [facility] [address] [place] [address] USAGlobulin (S) [Mass/Vol]2.7 g/dLNoPremier Health Atrium Medical CenterComment on above:Performed By: #### CBC, TSH3, CMP, A1C WTH eA, LIPID #### [facility] [address] [place] [id number] USAGlucose [Mass/Vol]87 mg/aPEcselr71-758HxhtqrmhfPromedica Bay Park HospitalComment on above:Result Comment: Random Glucose Reference Range is dependent on time and content of last meal. Glucose of more than 200 mg/dL in a nonstressed, ambulatory subject supports the diagnosis of Diabetes Mellitus. ADA recommended reference rangePerformed By: #### CBC, TSH3, CMP, A1C WTH eA, LIPID #### [facility] [address] [place] [address] USAPotassium [Moles/Vol]3.8 mmol/LNormal3.5-5.1FGrand Lake Joint Township District Memorial HospitalComment on above:Performed By: #### CBC, TSH3, CMP, A1C WTH eA, LIPID #### [facility] [address] [place] [address] USAProtein [Mass/Vol]6.6 g/dLNormal6.1-7.9[facility] HospitalComment on above:Performed By: #### CBC, TSH3, CMP, A1C WTH eA, LIPID #### [facility] [address] [place] [address] USASodium [Moles/Vol]137 mmol/RMuoloi161-288FkgekjodhPromedica Bay Park HospitalComment on above:Performed By: #### CBC, TSH3, CMP, A1C WTH eA, LIPID #### [facility] [address] [place] [address] USAUrea nitrogen [Mass/Vol]5 mg/dLLow9-23Prom[facility] HospitalComment on above:Performed By: #### CBC, TSH3, CMP, A1C WTH eA, LIPID #### [facility] [address] [place] [address] USACreatinine and Glomerular filtration rate.predicted panel (S/P/Bld)Ordered By: Becky Romeo on 24-45-1671Pbwaterpnc [Mass/Vol]0.75 mg/dL0.44-1.03Prom[facility] Park HospitalEosinophils Auto (Bld) [#/Vol] Ordered By: Becky Romeo on 72-30-6691Ykvcjjflthq (Bld) [#/Vol]0.1 10*3/uL 0.0-0.45Prom[facility] Park HospitalEosinophils/100 WBC Auto (Bld)Ordered By: Becky Romeo on 96-41-7823Abvvbgixuxe/100 WBC (Bld)2.3 %.Prom[facility]ica Bay Park HospitalErythrocyte distribution width Auto (RBC) [Ratio]Ordered By: Becky Romeo on 22-78-8154Nyckbkskdpa distribution width (RBC) [Ratio] 12.4 %11.9-15.3FGrand Lake Joint Township District Memorial HospitalErythrocytes [#/volume] in Blood by Automated countOrdered By: Becky Romeo on 84-86-6415ZWX (Bld) [#/Vol] 4.38 10*6/uLNormal3.60-5.00Prom[facility] HospitalEstimated glomerular filtration rate (GFR) non- AmericanOrdered By: Becky Romeo on 72-47-7816DXM/1.73 sq M.predicted among non-blacks MDRD (S/P/Bld) [Vol rate/Area]> 60 mL/MinPromedica Bay Park HospitalGlobulin Calc (S) [Mass/Vol]Ordered By: Becky Romeo on 40-85-9555Zmjkzcrs (S) [Mass/Vol]2.7 g/dLPromedica Bay Park HospitalHematocrit Auto (Bld) [Volume fraction] Ordered By: Becky Romeo on 19-70-0618Nahzsbimzv (Bld) [Volume fraction] 39.7 %34.0-46.4FGrand Lake Joint Township District Memorial HospitalHemoglobin [Mass/volume] in BloodOrdered By: Becky Romeo on 52-99-8745Vxdrkprxah (Bld) [Mass/Vol]13.2 g/dL11.8-15.4FGrand Lake Joint Township District Memorial HospitalLeukocytes [#/volume] corrected for nucleated erythrocytes in Blood by Automated counOrdered By: Becky Romeo on 23-00-2387YKU corrected for nucl RBC Auto (Bld) [#/Vol]5.6 10*3/uL 3.8-11.6FGrand Lake Joint Township District Memorial HospitalLipid Panelon 20-45-8440Ygmajjjorps in LDL Elph Qn146 mg/dLHigh0-100 mg/dLNoMeet[employer] Other Lipid Panel84 mg/jLQfdrob90-141 mg/dLNoMeet[employer]. Other Lipid Panel16 mg/dLGoodman Networks Other Cholesterol [Mass/Vol]195 mg/aXXjyheb122-751NvonqvdsaPromedica Bay Park HospitalComment on above:Result Comment: Chol less than 200 mg/dl low risk Chol 201-239 mg/dl borderline risk Chol 240 mg/dl and greater high riskPerformed By: #### CBC, TSH3, CMP, A1C WTH eA, LIPID #### [facility] [address] [place] [address] USACholesterol in HDL [Mass/Vol]32 mg/eMSqn47-66IelzpescfPromedica Bay Park HospitalComment on above:Result Comment: HDL CHOL ATP-III CLASSIFICATION Cardiovascular Risk HDL > or equal to 60 mg/dL LOW HDL < 40 mg/dL HIGHPerformed By: #### CBC, TSH3, CMP, A1C WTH eA, LIPID #### [facility] [address] [place] [address] USACholesterol.total/Cholesterol in HDL [Mass ratio]6.1 {ratio}Normal<5.0Promedica Bay Park HospitalComment on above:Performed By: #### CBC, TSH3, CMP, A1C WTH eA, LIPID #### [facility] [address] [id number] USALDL Cholesterol,Ygwuhwoead630 mg/dLHigh0-100Promedica Bay Park HospitalComment on above:Result Comment: LDL ATP III CLASSIFICATION LDL less than 100 mg/dL Optimal LDL 100-129 mg/dL Near or above optimal LDL 130-159 mg/dL Borderline high LDL 160-189 mg/dL High LDL greater than 189 mg/dL Very highPerformed By: #### CBC, TSH3, CMP, A1C WTH eA, LIPID #### [facility] [address] [place] [address] USATriglyceride w/Ywanid40 mg/gEBjxcdo07-522YjzivlneyPromedica Bay Park HospitalComment on above:Result Comment: TRIG ATP III CLASSIFICATION TRIG less than 150 mg/dL Normal TRIG 150-199 mg/dL Borderline high TRIG 200-500 mg/dL High TRIG greater than 500 mg/dL Very high Standard traceable to the Center for Disease Conrtrol and Prevention (CDC) test method.Performed By: #### CBC, TSH3, CMP, A1C WTH eA, LIPID #### [facility] [address] [place] [address] USAVLDL UGNEIMOKHIB34 mg/dLNoPremier Health Atrium Medical CenterComment on above:Performed By: #### CBC, TSH3, CMP, A1C WTH eA, LIPID #### [facility] [address] [place] [address] USALymphocytes Auto (Bld) [#/Vol]Ordered By: Becky Romeo on 62-99-8779Pbckkrafryq (Bld) [#/Vol]1.3 10*3/uL1.00-4.8Promedica Bay Park HospitalLymphocytes/100 WBC Auto (Bld)Ordered By: Becky Romeo on 50-15-7487Ktyuejvosit/100 WBC (Bld)22.5 %.[facility] HospitalH Auto (RBC) [Entitic mass]Ordered By: Becky Romeo on 06-14-7363ABP (RBC) [Entitic mass]30.2 pg24.7-34.3FGrand Lake Joint Township District Memorial HospitalMCHC Auto (RBC) [Mass/Vol]Ordered By: Becky Romeo on 01-05-7529ABBO (RBC) [Mass/Vol]33.4 g/dL32.0-35.0Promedica Bay Park HospitalMCV Auto (RBC) [Entitic vol]Ordered By: Becky Romeo on 94-77-5348MMB (RBC) [Entitic vol]90.5 dE86-274WjhkvpcthPromedica Bay Park HospitalMonocytes Auto (Bld) [#/Vol] Ordered By: Becky Romeo on 67-75-0009Rqrxyzjyk (Bld) [#/Vol]0.4 10*3/uL 0.0-0.8Prom[facility] Bay Park HospitalMonocytes/100 WBC Auto (Bld)Ordered By: Becky Romeo on 82-10-8702Klpcjxopy/100 WBC (Bld)6.8 %.Prom[facility] Bay Park HospitalNeutrophils Auto (Bld) [#/Vol]Ordered By: Becky Romeo on 07-53-2937Mlvfrwyxbcm (Bld) [#/Vol]3.8 10*3/uL1.8-7.7FGrand Lake Joint Township District Memorial HospitalNeutrophils/100 WBC Auto (Bld)Ordered By: Becky Romeo on 08-14-2022 Neutrophils/100 WBC (Bld)67.8 %.[facility] Park HospitalNo Panel InformationOrdered By: Becky Romeo on 02-13-6627Pkdqlkgyu GFR ()> 60 mL/MinPromedica Bay Park HospitalComment on above:GFR estimated reference range: According to KDOQI guidelines, <60 ml/min/1.73m2 is sufficient todiagnose a patient with chronic kidney disease.Pharmacy Creatinine Clearance (ChemN/AFGrand Lake Joint Township District Memorial HospitalNucleated erythrocytes [Presence] in Blood by Automated countOrdered By: Becky Romeo on 56-31-4401Hpeglmkha RBC Auto Ql (Bld)0.3 /100{WBC}0-0.5FGrand Lake Joint Township District Memorial HospitalPlatelet mean volume Auto (Bld) [Entitic vol]Ordered By: Becky Romeo on 86-41-0826Rlopyphg mean volume (Bld) [Entitic vol]9.0 fL6.3-10.7 [facility] Park HospitalPlatelets [#/volume] in Blood by Automated countOrdered By: Becky Romeo on 16-06-3668Xlsbxnnir (Bld) [#/Vol]232 10*3/hBUkrtwq396-949 10*3/uLPromedica Bay Park HospitalProtein [Mass/volume] in Serum or PlasmaOrdered By: Becky Romeo on 08-14-2022 Protein [Mass/Vol]6.6 g/dL6.1-7.9Mercy Hospitalerum or plasma alanine aminotransferase measurement without P-5'-P (enzymatic activi Ordered By: Becky Romeo on 38-85-3157DDN No additional P-5'-P [Catalytic activity/Vol]34 U/Q67-78XtnssxmxgMercy Hospitalerum or plasma albumin/globulin mass ratioOrdered By: Becky Romeo on 08-14-2022 Albumin/Globulin [Mass ratio]1.4 {ratio}Mercy Hospitalerum or plasma alkaline phosphatase measurement (enzymatic activity/volume)Ordered By: Becky Romeo on 53-78-3551VYU [Catalytic activity/Vol]69 U/MHdvzwo62-02 U/LFGreen Cross Hospitalerum or plasma anion gap determination Ordered By: Becky Romeo on 71-60-6737Rayef gap [Moles/Vol]9.7 mmol/L 6.0-15.0Mercy Hospitalerum or plasma aspartate aminotransferase measurement (enzymatic activity/volume)Ordered By: Becky Romeo on 23-34-0575YRG [Catalytic activity/Vol]30 U/YWyffbf66-59 U/L Mercy Hospitalerum or plasma calcium measurement (mass/volume)Ordered By: Becky Romeo on 97-80-7343Fauqykz [Mass/Vol]9.2 mg/dL8.2-10.2FGreen Cross Hospitalerum or plasma chloride measurement (moles/volume)Ordered By: Becky Romeo on 83-45-3060Cuwolpoe [Moles/Vol]108 mmol/FRztbso17-598 mmol/LFGreen Cross Hospitalerum or plasma glucose measurement (mass/volume)Ordered By: Becky Romeo on 83-75-5160Wqbahsc [Mass/Vol]87 mg/eGGipgep00-509 mg/dLPromedica Bay Park HospitalComment on above:ADA recommended reference rangeRandom Glucose Reference Range is dependent on time and content of last meal. Glucose of more than 200 mg/dL in a nonstressed, ambulatory subject supports the diagnosisof Diabetes Mellitus.Serum or plasma high density lipoprotein (HDL) cholesterol measurement Ordered By: Becky Romeo on 46-35-0851Ezxuaexncsk in HDL [Mass/Vol]32 mg/dL Pkz84-73 mg/dLPromedica Bay Park HospitalComment on above:HDL CHOL ATP-III CLASSIFICATION Cardiovascular RiskHDL > or equal to 60 mg/dL LOWHDL < 40 mg/dL HIGHSerum or plasma potassium measurement (moles/volume)Ordered By: Becky Romeo on 70-22-5431Xaimnlrov [Moles/Vol]3.8 mmol/L3.5-5.1FGreen Cross Hospitalerum or plasma sodium measurement (moles/volume)Ordered By: Bceky Romeo on 47-33-7473Skfgut [Moles/Vol]137 mmol/LJzaeqg956-963 mmol/L Mercy Hospitalerum or plasma total bilirubin measurement (mass/volume)Ordered By: Becky Romeo on 42-16-8542Edmdoxnhs [Mass/Vol]0.7 mg/dL0.3-1.2FGreen Cross Hospitalerum or plasma total carbon dioxide measurement (moles/volume)Ordered By: Becky Romeo on 72-06-5172JH8 [Moles/Vol]23.1 mmol/L22.0-30.0Mercy Hospitalerum or plasma total cholesterol/high density lipoprotein (HDL) cholesterol mass ratOrdered By: Becky Romeo on 68-23-3508Owcqesupvfj.total/Cholesterol in HDL [Mass ratio]6.1 {ratio}<5.0Mercy Hospitalerum or plasma urea nitrogen measurement (mass/volume)Ordered By: Becky Romeo on 08-14-2022 Urea nitrogen [Mass/Vol]5 mg/dLLow9-23 mg/dLPromedica Bay Park HospitalTSH DL <= 0.005 mIU/L QnOrdered By: Becky Romeo on 19-46-0486DEI Qn1.77 m[IU]/L0.45-5.33Prom[facility] Bay Park HospitalThyroid Stimulating Hormoneon 10-42-1255ULY Qn1.77 m[IU]/LNormal0.45-5.33[facility] Comment on above:Result Comment: PERFORMED BY: [place] [address] PATHOLOGIST HUMAN DEVELOPMENT PROFESSOR KULWANT GOMEZ M.D.Performed By: #### CBC, TSH3, CMP, A1C WT eA, LIPID #### [facility] [address] [place] [address] USATriglyceride [Mass/volume] in Serum or PlasmaOrdered By: Becky Romeo on 40-74-2540Pjdpgpkelvoo [Mass/Vol]84 mg/eY88-152GimzfeloaPromedica Bay Park HospitalComment on above:TRIG ATP III CLASSIFICATIONTRIG less than 150 mg/dL NormalTRIG 150-199 mg/dL Borderline highTRIG 200-500 mg/dL High TRIG greater than 500 mg/dL Very highStandard traceable to the Center for Disease Conrtrol and Prevention (CDC) test method.WBC Auto (Bld) [#/Vol]Ordered By: Becky Romeo on 70-21-7241QAO (d) [#/Vol]5.6 10*3/uL3.8-11.6FGrand Lake Joint Township District Memorial HospitalXR chest 2V*on 43-29-5414TF chest 2V*[facility] [address] [place] [address] XRay Report Signed Patient: Edwige Sierra MR#: [id number] : 2000 Acct:[id number] Age/Sex: 22 / F ADM Date: 08/13/22 Loc: [facility] Room: Type: [facility] Attending Dr: Becky Romeo DO Copies to: [...] Misbah Mast M.D.08/13/2022 3:23 PM Dictation Location: [place] [address] Transcribed By: [facility] 08/13/22 1523 Dictated By: Misbah Mast DO 08/13/22 1522 Signed By: 08/13/22 1523Sheltering Arms HospitalXR chest 2V*[facility] [employer] Other XR chest 2V*[facility] [employer] Other XR chest 2V*[address] [place] [address] [employer] Other XR chest 2V*[place], [place] [address]Mkbnv [employer] Other XR chest 2V*XRay ReportCastleton [employer] Other XR chest 2V*SignedCastleton [employer] Other xr chest 2V*Patient: Edwige Sierra MR#: [id number] [employer] Other XR chest 2V*[id number] [employer] Other XR chest 2V*: 2000 Acct:[id number] [employer] Other XR chest 2V*Age/Sex: 22 / F ADM Date: 08/13/22[place] [employer] Other XR chest 2V*Loc: [facility] Room: Type: [facility] [employer] Other XR chest 2V*Attending Dr: Becky Romeo [facility] [employer] Other XR chest 2V*Copies to: Becky Romeo, [facility] [employer] Other xr chest 2V*Ordering Provider: Becky Romeo, [employer] Other xr chest 2V*Date of Service: 08/13/22[place] [employer] Other xr chest 2V* XR/XR chest 2V*: Cough, unspecified typeCastleton [employer] Other XR chest 2V*Plain film chest2 viewCastleton [employer] Other XR chest 2V*HISTORY:Productive cough. Wheezing.[employer] Other XR chest 2V*COMPARISON:[facility] [employer] Other xr chest 2V*FINDINGS: The cardiac, mediastinal and hilar silhouettes are within normal limits. No acute lungCastleton [employer] Other XR chest 2V*process, pleural effusion or pneumothorax identified. Bony structures are intact.[employer] Other XR chest 2V* XR/XR chest 2V*[facility] [employer] Other xr chest 2V*IMPRESSION: No acute process.[place] Other XR chest 2V*Impression dictated by: Misbah Mast M.D.08/13/2022 3:23 [facility] [employer] Other XR chest 2V*Dictation Location: [id number] [employer] Other XR chest 2V*Transcribed By: PWS 08/13/[address] [place] [address] [employer] Other xr chest 2V*Dictated By: Misbah Mast DO 08/13/[address] [place] [address] [employer] Other xr chest 2V*Signed By:[employer] Other xr chest 2V*08/13/[address] [place] [address] [employer] Other Quick Strepon 02-08-2022. pyogenes Org specific cx Ql (Throat)PositiveCastleton [employer] Other quick [facility] HospitalWorkec [employer] Other COVID Quick Testingon 78-51-1699GtfpjsHgowrdicPpjjx [employer] Other COVID + FLU Quick Testingon 04-87-6822BRGJ-CoV-2 (COVID-19) RNA THA+probe Ql (Unsp spec)PositiveCastleton [employer] Other COVID + FLU Quick TestingNegativeWorkec [employer] Other Q - THINPREP(R) TIS AND HPV MRNA E6/E7 RFL HPV 16/18/45on 02-23-9263OTAWKECX INFORMATION:None givenNormalNorthern Saint [facility] SpecialistComment on above:Order Comment: [facility] performed at: [facility], [address] [place] [address], [address] [place] [address], [phone], Drilling And Production Superintendent: Ramana Taylor MD Testing performed at: [facility], [address] [place] [address], [address] [place] [address], Drilling And Production Superintendent: Mani Anderson [facility] Collection Date/Time: [facility] Results Received Date/Time: [facility] Reported Date/Time: FASTING: UNKNOWNResult Comment: [QBU]Performed By: #### [id number] #### [facility] Default [address] [place], [place] [address]DLVSTCKERB NOTENormalNoBlanchard Valley Health System SpecialistComment on above:Order Comment: [facility] Testing performed at: [facility], [address] [place] [address], [address] [place] [address], [phone], Drilling And Production Superintendent: Ramana Taylor MD Testing performed at: [facility], [address] [place], [address], Drilling And Production Superintendent: Mani Anderson [facility] Collection Date/Time: [id number] [facility] Results Received Date/Time: [facility] Reported Date/Time: FASTING: UNKNOWNResult Comment: EXPLANATORY NOTE: The Pap is a screening test for cervical cancer. It is not a diagnostic test and is subject to false negative and false positive results. It is most reliable when a satisfactory sample, regularly obtained, is submitted with relevant clinical findings and history, and when the Pap result is evaluated along with historic and current clinical information. [QBU]Performed By: #### [id number] #### [facility] [address] [place], [place] [address]RXFCLWT:This Pap test has been evaluated with computer assisted technology.NormalNoBlanchard Valley Health System SpecialistComment on above:Order Comment: [facility] Testing performed at: [facility], [address] [place] [address], [address] [place] [address], [phone], Drilling And Production Superintendent: Ramana Taylor MD Testing performed at: [facility], [address] [place], [address], Drilling And Production Superintendent: Mani Anderson [facility] Collection Date/Time: [facility] Results Received Date/Time: [facility] Reported Date/Time: FASTING: UNKNOWNResult Comment: [QBU]Performed By: #### [id number] #### [facility] [address] [place] [id number]:SEE NOTENormalSee Note:[facility] SpecialistComment on above:Order Comment: [facility] Testing performed at: [facility], [address] [place] [address], [address] [place] [address], [address] [place] [address], Drilling And Production Superintendent: Ramana Taylor MD Testing performed at: [employer], [facility], [address] [place] [address], [address] [place] [address], Drilling And Production Superintendent: Mani Anderson [facility] Collection Date/Time: [facility] Results Received Date/Time: [facility] Reported Date/Time: FASTING: UNKNOWNResult Comment: Reference Range: ZL, CT(ASCP) CT screening location: [place] [address]. [QBU]Performed By: #### [id number] #### [facility] [address] [place], [place] [address]GENERAL CATEGORIZATION:EPITHELIAL CELL ABNORMALITYAbnormal [facility] SpecialistComascension borgess-pipp hospital on above:Order Comment: [facility] Testing performed at: [facility], [address] [place] [address], [address] [place] [address], [address] [place] [address], Drilling And Production Superintendent: Ramana Taylor MD Testing performed at: [facility], [address] [place], [address], Drilling And Production Superintendent: Mani Anderson [facility] Collection Date/Time: [id number] [facility] Results Received Date/Time: [facility] Reported Date/Time: FASTING: UNKNOWNResult Comment: [QBU]Performed By: #### [id number] #### [facility] [address] [place], [place] [address]SXA mRNA E6/B7LpefsnutBsujvyyuBhd DetectedNoTuscarawas HospitalComment on above:Order Comment: [facility] Testing performed at: [facility], [facility], [address] [place] [address], [address] [place] [address], [address] [place] [address], Drilling And Production Superintendent: Ramana Taylor MD Testing performed at: [facility], [address] [place] [address], [phone], Drilling And Production Superintendent: Mani Anderson [facility] Collection Date/Time: [facility] Results Received Date/Time: [facility] Reported Date/Time: FASTING: UNKNOWNResult Comment: Methodology: Emr Analyst-Mediated Amplification This assay detects E6/E7 viral messenger RNA (mRNA) from 14 high-risk HPV types (16,18,31,33,35,39,45,51,52,56,58,59,66,68). The analytical performance characteristics of this assay have been determined by [employer]. The modifications have not been cleared or approved by the FDA. This assay has been validated pursuant to the CLIA regulations and is used for clinical purposes. For additional information, please refer to http://education.[employer]/faq/CXK232m7 (This link if provided for information/ educational purposes only.) [O6K]Performed By: #### [id number] #### [facility] [address] [place], [place] [address]MPSMZROQJYKMPC/RESULT:Atypical Squamous Cells of Undetermined Significance (ASC-US)AbnormalUniversity Hospitals Elyria Medical CenterComment on above: Order Comment: [facility] Testing performed at: [facility], [address] [place] [address], [phone], Drilling And Production Superintendent: Ramana Taylor MD Testing performed at: [facility], [facility], [address] [place], [address], Drilling And Production Superintendent: Mani Anderson [facility] Collection Date/Time: [facility] Results Received Date/Time: [facility] Reported Date/Time: FASTING: UNKNOWNResult Comment: [QBU]Performed By: #### [id number] #### [facility] Default [address] [place], [place] [address]JHK:None [facility] HealthComasc[facility] borg[facility] on above:Order Comment: [facility] Testing performed at: [facility], [address] [place] [address], [address] [place] [address], [address] [place] [address], Drilling And Production Superintendent: Ramana Taylor MD Testing performed at: [facility], [address] [place] [address], [address] [place] [address], Drilling And Production Superintendent: Mani Anderson [facility] Collection Date/Time: [facility] Results Received Date/Time: [facility] Reported Date/Time: FASTING: UNKNOWNResult Comment: [QBU]Performed By: #### [id number] #### [facility] Default [address] [place], [place] [address]PATHOLOGIST:SEE [facility] HospitalComascension borg[facility] on above:Order Comment: [facility] Testing performed at: [facility], [address] [place] [address], [address] [place] [address], [address] [place] [address], Drilling And Production Superintendent: Ramana Taylor MD Testing performed at: [facility], [address] [place] [address], [address] [place] [address], Drilling And Production Superintendent: Mani Anderson [facility] Collection Date/Time: [id number] [facility] Results Received Date/Time: [facility] Reported Date/Time: FASTING: UNKNOWNResult Comment: Mani Anderson MD, PhD, M.B.A. Board Certified in Anatomic and Clinical Pathology Board Certified in Cytopathology (electronic signature) For questions regarding this report call Anatomic Pathology at [phone] [QBU]Performed By: #### [id number] #### [facility] [address] [place], [place] [address]ZPTJ. BX:None [facility] SpecialistComment on above:Order Comment: [facility] Testing performed at: [facility], [address] [place] [address], [address] [place] [address], [address] [place] [address], Drilling And Production Superintendent: Ramana Taylor MD Testing performed at: [facility], [address] [place], [place], [address] [place] [address], Drilling And Production Superintendent: Mani Anderson [facility] Collection Date/Time: [facility] Results Received Date/Time: [facility] Reported Date/Time: FASTING: UNKNOWNResult Comment: [QBU]Performed By: #### [id number] #### [facility] Default [address] [place], [place] [address]NEJW. PAP:None givenNormalNorthern Saint [facility] SpecialistComascension borgess-pipp hospital on above:Order Comment: [facility] Testing performed at: [facility], [address] [place] [address], [address] [place] [address], [address] [place] [address], Drilling And Production Superintendent: Ramana Taylor MD Testing performed at: [facility], [address] [place], [place], [address] [place] [address], Drilling And Production Superintendent: Mani Anderson [facility] Collection Date/Time: [id number] [facility] Results Received Date/Time: [facility] Reported Date/Time: FASTING: UNKNOWNResult Comment: [QBU]Performed By: #### [id number] #### [facility] [address] [place], [place] [address]JVOMCY:None givenNormalNorthern [facility] SpecialistComment on above:Order Comment: [facility] Testing performed at: [facility], [address] [place] [address], [address] [place] [address], [address] [place] [address], Drilling And Production Superintendent: Ramana Taylor MD Testing performed at: [facility], [address] [place], [place], [address] [place] [address], Drilling And Production Superintendent: Mani Andreson [facility] Collection Date/Time: [facility] Results Received Date/Time: [facility] Reported Date/Time: FASTING: UNKNOWNResult Comment: [QBU]Performed By: #### [id number] #### [facility] [address] [place], [place] [address]WVULBAWSH OF ADEQUACY:SEE NOTENormalNortabrazo central campusn [facility] SpecialistComment on above:Order Comment: [facility] Testing performed at: O, [facility], [address] [facility], [address] [place] [address], [phone], Drilling And Production Superintendent: Ramana Taylor MD Testing performed at: [facility], [facility], [address] [place] [address], [phone], Drilling And Production Superintendent: Mani Anderson [facility] Collection Date/Time: [facility] Results Received Date/Time: [facility] Reported Date/Time: FASTING: UNKNOWNResult Comment: Satisfactory for evaluation. Endocervical/transformation zone component present. [QBU]Performed By: #### [id number] #### [facility] Default [address] [place], [place] [address]TH Finger Lefton 66-70-5802UV Finger LeftFINDINGS: PIP soft tissue swelling. Minimally distracted volar plate fracture, middle phalangeal base. Minimal arthritis. IMPRESSION: Minimally distracted 4th PIP joint volar plate fracture Report reported and signed by Hubert Lewis on 06/20/2021 1443NormalNortCleveland Clinic Lutheran Hospital Medical SpecialistPREG HCG QUALon 63-11-1582JJMQXKAUQ, QUALNegativeNormal NEGATIVEThe Memorial Health SystemComment on above:Performed By: #### PREG #### [facility] [address] [place], [place] [address] Liam KarenCOVID-19 PCRon 04-45-0013ALVC-CoV-2 (COVID-19) RNA THA+probe Ql (Unsp spec)Not detectedNormalNot DetectedThe Memorial Health SystemComment on above: Result Comment: This nucleic acid amplification test was developed and its performance characteristics determined by [employer]. Nucleic acid amplification tests include PCR and [...] a negative (not detected) result in this assay.Performed By: #### CVDSTAT, CVDPCR #### [facility] [address] [place] [address] Liam AyalaPRIORITY COVID PROCESSINGon 62-96-0271OcadqvhNrwwrrdZsdderVjx [facility] HospitalComment on above:Result Comment: ReceivedPerformed By: #### CVDSTAT, CVDPCR #### [facility] [address] [place], [place] [address] Liam Ayala Vital Signs Date TimeVital SignValuePerforming AcutgxwqzIlvypnwj46-09-1463 17:17-0400Body uwxdtk569.6 cmVmesifn Salas CNM Work Phone: [facility] CenterDkvpijfvum04-71-2190 17:17-0400Body mass index (BMI) [Ratio]38.9 kg/i1KhugqahJovita Rosarioo CNM Work Phone: [facility] CenterXtmhtkmpzs52-98-6695 17:17-0400Body ttqmne165.32 kgJovita Rosarioo CNM Work Phone: [facility] CenterCrmtyzykzc73-97-1673 17:17-0400Diastolic blood nreigvdb86 mm[Hg]Jovita Salas CNM Work Phone: [facility] CenterYvvozlmdff02-04-2718 17:17-0400Heart rate78 /min Jovita ROBERTSM Work Phone: [facility] CenterMdidugdjfp19-44-0661 17:17-0400Respiratory rate18 /minJovita ROBERTSM Work Phone: [facility] CenterOdlmxaswkc82-49-0865 17:17-7017HcE5% (BldA) [Mass fraction]98 %Jovita ROBERTSM Work Phone: [facility] CenterQbebgcbgel34-34-1711 17:17-0400Systolic blood oabzfqqx878 mm[Hg]Jovita ROBERTSM Work Phone: [phone]44[facility] CenterWchwmcbfdf21-48-9293 09:15-0400Body hxufuh090.18 cmMatthew Heatheri DO Work Phone: [phone]07-08-2025 09:15-0400 Body mass index (BMI) [Ratio]37.6 kg/b2Zpnjsmo Davidcki DO Work Phone: [phone] [place], [place] 3268307-08-2025 09:15-0400 Body .1 kgMatthew Heatheri DO Work Phone: [phone] [place], [place] 3268305-30-2025 14:00-0400 Heart rate90 /minBreann Majors [employer] DEVELOPER Work Phone: [facility] CenterRvuzkpjufv66-17-0166 13:44-0400Body .6 cmBreann Majors ORACLE BUSINESS INTELLIGENCE DEVELOPER Work Phone: [phone] CenterOombovppcd09-23-3603 13:44-0400Body mass index (BMI) [Ratio]39.38 kg/r6Inwmaz Majors [employer]LE BUSINESS INTELLIGENCE DEVELOPER Work Phone: [facility] CenterQtdelixhyv53-84-7181 13:44-0400Body avgdue188.68 kgBreann Majors ORACLE BUSINESS INTELLIGENCE DEVELOPER Work Phone: [facility] CenterZtaxvynpjl85-86-7782 13:44-0400Diastolic blood foyzezwu61 mm[Hg]Ness Majors ORACLE BUSINESS INTELLIGENCE DEVELOPER Work Phone: [facility] CenterRzbhcqrksk21-34-7355 13:44-0400Respiratory rate18 /minBreann Majors ORACLE BUSINESS INTELLIGENCE DEVELOPER Work Phone: [facility] CenterJleshbaeyc23-69-2495 13:44-1497DyS0% (BldA) [Mass fraction]97 %Ness Majors ORACLE BUSINESS INTELLIGENCE DEVELOPER Work Phone: [facility] CenterGvirbgssnq23-17-0548 13:44-0400Systolic blood lutpoarx711 mm[Hg]Ness Majors ORACLE BUSINESS INTELLIGENCE DEVELOPER Work Phone: [facility] CenterCojezcxtnh37-52-6856 13:12-8198ZsY6% (BldA) [Mass fraction]94 %Becky Romeo DO Work Phone: [facility] HospitalObvious EngineeringVjuouz65-74-5969 13:00-0400Body mbfcpfsyobk94.01 [degF]Becky Romeo DO Work Phone: [facility] HospitalOutcome Referrals Yhyhhu28-63-8836 13:00-0400Diastolic blood tbbedroy32 mm[Hg]Becky Romeo DO Work Phone: [facility] HospitalObvious EngineeringFkpujp01-55-1732 13:00-0400Heart rate89 /minMatthew Rowena DO Work Phone: [facility] HospitalObvious EngineeringLfpqpi76-99-2173 13:00-0400 Respiratory rate16 /minMatthew Rowena DO Work Phone: [facility] HospitalOutcome Referrals Xhuihr19-05-6679 13:00-0400Systolic blood odskpfua743 mm[Hg]Becky Romeo DO Work Phone: [facility] HospitalIhlbhe32-91-1310 16:06-0500Body .6 cmValeprakash ROBERTS Work Phone: [facility] CenterGaqhxvjvqn50-68-6168 16:06-0500Body mass index (BMI) [Ratio]39.64 kg/q8XknlmirJovita ROBERTS Work Phone: [facility] CenterYbulcvwnvp35-67-6711 16:06-0500Body sxdois093.4 kgJovita ROBERST Work Phone: [facility] HospitalJmpmzxhite94-39-5836 16:06-0500Diastolic blood axyozpfj92 mm[Hg]Jovita Salas CN Work Phone: [facility] HospitalZjstwlovjb44-45-3746 16:06-0500Systolic blood mwwmviru932 mm[Hg]Jovita Salas CN Work Phone: [facility] CenterAoeiphdrge35-54-7218 10:19-0500Body temperature 98.4 [degF]Priyank Gaspar MD Work Phone: [facility]01-30-2025 10:19-0500Diastolic blood moyvaxsd00 mm[Hg]Priyank Gaspar MD Work Phone: [facility]01-30-2025 10:19-0500Heart gghp394 /minPriyank Gaspar MD Work Phone: [facility] CenterJRD Communication [facility] HospitalWtxxup57-51-2051 10:19-0500 Respiratory rate18 /minPriyank Gaspar MD Work Phone: Bon [facility] CenterJRD Communication [facility] HospitalKcxksk58-32-2519 10:19-8973EtO7% (BldA) [Mass fraction]97 %Priyank Gaspar MD Work Phone: Bon [facility] CenterJRD Communication [facility] HospitalJmvpfk25-59-7408 10:19-0500Systolic blood mm[Hg]Priyank Gaspar MD Work Phone: Bon [facility] CenterJRD Communication [facility] HospitalQjhwnf07-44-2476 18:12-8964OlM3% (BldA) [Mass fraction]97 %Yoli Lal MD Work Phone: Bon [employer]01-14-2025 15:37-0500Body ywruqd188.2 cmRkolton Lal MD Work Phone: Bon [employer]01-14-2025 15:37-0500Body mass index (BMI) [Ratio]37.59 kg/s1HcvfpvsYoli Lal MD Work Phone: [facility]01-14-2025 15:37-0500Body pybllcrkskn24.29 [degF]Yoli Lal MD Work Phone: [facility]01-14-2025 15:37-0500Body ojzjck568.86 kgYoli Lal MD Work Phone: [facility]01-14-2025 15:37-0500Diastolic blood mm[Hg]Yoli Lal MD Work Phone: [facility]01-14-2025 15:37-0500Heart jggd949 /minYoli Lal MD Work Phone: [facility]01-14-2025 15:37-0500 Respiratory rate18 /minYoli Lal MD Work Phone: [facility]01-14-2025 15:37-0500Systolic blood jcujqbxx198 mm[Hg]Yoli Lal MD Work Phone: [facility]11-18-2024 08:46-0500Body ahuuug419.6 cmDestinee Britton MD Work Phone: [place] [address]Kbgcbuprxf40-35-0060 08:46-0500Body mass index (BMI) [Ratio]39 kg/m2Destinee Britton MD Work Phone: [place] [address]Fywwpgkgij40-34-2590 08:46-0500Body nitliv374.59 kgDestinee Britton MD Work Phone: [place] [address]Wnjffwlwip38-06-9300 08:46-0500Diastolic blood kiodupyu28 mm[Hg]Destinee Britton MD Work Phone: [place] [address]Lifredkjah76-02-5386 08:46-0500Heart rate91 /min Destinee Britton MD Work Phone: [place] [address]Nnuvhwnlma72-15-0669 08:46-0500Respiratory rate18 /minDestinee Britton MD Work Phone: [address] [place], [place] [address]Vmvvwldgil78-41-7885 08:46-5913ZnH9% (BldA) [Mass fraction]97 %Destinee Britton MD Work Phone: [phone] [place], [place] [address]Xznafaavtb28-97-0279 08:46-0500Systolic blood uwpdajob407 mm[Hg]Destinee Britton MD Work Phone: [phone])389-[address] [place], [place] [address]Wxpdrhtcnw32-40-0330 15:22-0500Body .6 cmDestinee Britton MD Work Phone: [phone] [place], [place] [address]Iqnjyigqvs24-06-5281 15:22-0500Body mass index (BMI) [Ratio]39.96 kg/m2Destinee Britton MD Work Phone: [phone] [place], [place] [address]Qgsilkbtzx77-27-3766 15:22-0500Body vznuvv186.31 kgDestinee Britton MD Work Phone: [phone] [place], [place] [address]Ralhxgrnqg65-76-1240 15:22-0500Diastolic blood tqnoygxb92 mm[Hg]Destinee Britton MD Work Phone: [phone] [place], [place] [address]Cypvniyajs92-53-3747 15:22-0500Heart msoi230 /min Destinee Britton MD Work Phone: [phone] [place], [place] [address]Dndhjuuset31-77-2731 15:22-0500Respiratory rate18 /minDestinee Britton MD Work Phone: [phone])697-[address] [place] [address]-14-2024 15:22-1876AeB8% (BldA) [Mass fraction]99 %Destinee Britton MD Work Phone: 1(667)721-[address] [place] [address]-14-2024 15:22-0500Systolic blood sqddegor668 mm[Hg]Destinee Britton MD Work Phone: [phone] [place], [place] [address]Hcyuyszgis77-72-4632 13:59-0500Body mass index (BMI) [Ratio]39.87 kg/x5Ttgymxg Florlisa [facility] Work Phone: [phone] [place], [place] [address]Vfmgksfmah31-06-8080 13:59-0500Body .04 kgCarolynprakash Salas [facility] Work Phone: [phone] [place], [place] [address]Yfvaifuhga75-68-1069 14:36-0400Diastolic blood dhprzkoi38 mm[Hg][facility]05-07-2024 14:36-0400Heart rate92 /[facility]05-07-2024 14:36-0400Respiratory rate20 /[facility]05-07-2024 14:36-0400Systolic blood dpgvlgot309 mm[Hg][facility]04-05-2024 11:51-0400Body pyyhih166.18 cmProm[facility]ica [facility]04-05-2024 11:51-0400Body mass index (BMI) [Ratio]38.2 kg/w4UuhdhthviPromedica [facility] Hospital04-05-2024 11:51-0400Body .67 kgPromedica [facility] Hospital04-05-2024 11:51-0400Diastolic blood vusoklvj75 mm[Hg][facility] 10-10-2023 11:51-0400Heart rate78 /[facility] 10-10-2023 11:51-9710JnC2% (BldA) [Mass fraction]96 %[facility]04-05-2024 11:51-0400Systolic blood cdtrnduo232 mm[Hg][facility]01-03-2024 13:00-0500Body phsfyu742.18 cmBecky Romeo Other [employer] Other 01-03-2024 13:00-0500Body mass index (BMI) [Ratio] 36.96 kg/l5Iriocjj Branfariba Other [employer] Other 01-03-2024 13:00-0500Body mzyrjzwqorv01.6 [degF] Becky Rowena Other [employer] Other 01-03-2024 13:00-0500Body nbvagv299.05 kgMadanielle Romeo Other [employer] Other 01-03-2024 13:00-0500Diastolic blood plwhjvyr48 mm[Hg] Becky Romeo Other [employer] Other 01-03-2024 13:00-0500Respiratory rate20 /minMattbashir Romeo Other [employer] Other 01-03-2024 13:00-3826DtX4% (BldA) [Mass fraction]97 % Becky Romeo Other [employer] Other 01-03-2024 13:00-0500Systolic blood riliounb295 mm[Hg] Becky Romeo Other [employer] Other 06-05-2023 11:05-0400Body vagzdh438.18 cmPamela Abena Other [employer] Other 06-05-2023 11:05-0400Body mass index (BMI) [Ratio] 38.52 kg/g5Jemjbmbrook Kraft Other [employer] Other 06-05-2023 11:05-0400Body propgzteicj54.8 [degF]Lexy Abena Other [employer] Other 06-05-2023 11:05-0400Body .59 kgPabrook Kraft Other [employer] Other 06-05-2023 11:05-0400Respiratory rate18 /minLexy Kraft Other [employer] Other 06-05-2023 11:05-6148EdW3% (BldA) [Mass fraction]98 % Lexy Kraft Other [employer] Other 02-06-2023 16:00-0500Body boxuab565.18 cmMadanielle Romeo Other [employer] Other 02-06-2023 16:00-0500Body mass index (BMI) [Ratio] 39.62 kg/u4VxkttafBecky Romeo Other [employer] Other 02-06-2023 16:00-0500Body sqgdag141.76 kgMattbashir Romeo Other [employer] Other 02-06-2023 16:00-0500Diastolic blood gfmcyxlv55 mm[Hg] Becky Hernandezernestineyumiko Other [employer] Other 02-06-2023 16:00-0500Respiratory rate16 /minBecky Romeo Other [employer] Other 02-06-2023 16:00-5968CpN6% (BldA) [Mass fraction]98 % Becky Pierreafriba Other [employer] Other 02-06-2023 16:00-0500Systolic blood wzzaiqxg522 mm[Hg] Becky Hernandezjulia Other [employer] Other 08-05-2022 12:00-0400Body .64 cmJoselin Reynoldsacher Other [employer] Other 08-03-2022 18:45-0400Body .64 cmPcira Kraft Other [employer] Other 08-03-2022 18:45-0400Body mass index (BMI) [Ratio] 37.12 kg/i0MsnxphLexy Kraft Other [employer] Other 08-03-2022 18:45-0400Body clrqhbxkusy47.3 [degF]Lexy Kraft Other [employer] Other 08-03-2022 18:45-0400Body .33 kgLexy Kraft Other [employer] Other 08-03-2022 18:45-0400Respiratory rate18 /mineLxy Kraft Other [employer] Other 08-03-2022 18:45-3738ZrQ5% (BldA) [Mass fraction]97 % Lexy Kraft Other [employer] Other Encounters Encounter DateEncounter TypeCare ProviderFacilityStart: 05-04-2025 End: 25-28-5560crdaeojgboBXNB J [facility]RONISProMer[facility] Health St[facility] Hospitalca [facility] Hospitaltart: 04-25-2025 End: 61-97-3667ragmiudzpfOdlqcii Vytautas Giedraitis MDFacility:[facility] [place] Start: 04-21-2025 End: 16-58-1434UzkttrwxyQvdhyyxOfelia Butler Physical TherapyComment on above:Sacrococcygeal disorders, not elsewhere classified (Primary Dx)Start: 04-18-2025 End: 49-48-9688rgzbnybadbIvfulkl Vytautas Giedraitis MDFacility:[facility] [place] Start: 04-13-2025 End: 96-36-9465hbzpponiphMVBQ W CARMANProMedica Lee HospitalStart: 04-04-2025 End: 46-19-7951XgjxyaownBbwjjiizf Kwan PTNOMS Luke Physical TherapyComment on above:Sacrococcygeal disorders, not elsewhere classified (Primary Dx)Start: 03-29-2025 End: 74-15-7222DjvmsjrfrQpgudeld Brink PTANOMS Luke Physical TherapyComment on above:Sacrococcygeal disorders, not elsewhere classified (Primary Dx)Start: 03-29-2025 End: 15-90-1188Dmnacp flowsheetMarshdestini Brink PTANOMS [facility] Start: 03-29-2025 End: 89-42-0993Geccmn flowsheetMarshdestini Brink PTANOMS [facility] Start: 03-24-2025 End: 01-93-9954PfmrmfvatNzuyhjq Kelbley PTANOMS [facility] Physical TherapyComment on above:Sacrococcygeal disorders, not elsewhere classified (Primary Dx)Start: 03-24-2025 End: 10-92-7239Srwxmy flowsheetMelissa Kelbley PTANOMS [facility] Start: 03-24-2025 End: 81-93-9380Ugelzc flowsheetMelissa Kelbley PTANOMS [facility] Start: 03-23-2025 End: 03-76-1259dkmytfpcqvNXTL [facility] HospitalStart: 03-21-2025 End: 01-35-8840Qywstj flowsheetMarshdestini Israelink PTANOMS [facility] Start: 03-21-2025 End: 32-68-6471Jlsbgu flowsheetMarshdestini Israelink PTANOMS [facility] Start: 03-21-2025 End: 50-65-7201CknkayardEefxptgy Brink PTANOMS [facility] Physical TherapyComment on above:Sacrococcygeal disorders, not elsewhere classified (Primary Dx)Start: 03-21-2025 End: 80-49-5527ushjvuctszEtzqfwn Vytautas Giedraitis MDFacility:[facility] [place] Start: 03-16-2025 End: 32-15-0263tdbylwpmvsYRHR J TRAVISProMedica Lee HospitalStart: 03-15-2025 End: 95-31-8354JvmsgltxiAsdbuswg Brink PTANOMS [facility] Physical TherapyComment on above:Sacrococcygeal disorders, not elsewhere classified (Primary Dx)Start: 03-15-2025 End: 35-60-9379Lbgvzy flowsheetRyan Barger PTANOMS [facility] Start: 03-15-2025 End: 57-13-1416Sftylj flowsheetRyan Barger PTANOMS [facility] Start: 03-02-2025 End: 75-43-8003HoyngbzptGrchklfu Brink PTANOMS [facility] Physical TherapyComment on above:Sacrococcygeal disorders, not elsewhere classified (Primary Dx)Start: 03-02-2025 End: 34-04-7422Yzveqn flowsheetRyan Barger PTANOMS [facility] Start: 03-02-2025 End: 76-20-9711Ryzgda flowsheetRyan Barger PTANOMS [facility] Start: 02-28-2025 End: 27-26-6082GvnumyamkRkxsxjheo Kwan PTNOMS Luke Physical TherapyComment on above:Sacrococcygeal disorders, not elsewhere classified (Primary Dx)Start: 02-28-2025 End: 56-72-5063Epaccx flowsheetSammantha Kwan PTNOMS [facility] Start: 02-28-2025 End: 01-34-3092Buupwa flowsheetSammantha Kwan PTNOMS [facility] Start: 02-23-2025 End: 06-94-0940jcjtjogkquETJN W SEYMOURProMedica Lee HospitalStart: 02-21-2025 End: 75-97-5962gxwxxisqqcQrrouxt Rodrigo Fairbanks MDFacility:[facility] Start: 02-15-2025 End: 91-60-2565jiqjjqiyinMeaghht Igor PTANOMS [facility] TherapyStart: 02-15-2025 End: 43-53-0621Bplrokshg Malachi Britton MD Work Phone: [facility] MedicineComment on above: Sacrococcygeal disorders, not elsewhere classified (Primary Dx)Start: 02-14-2025 End: 55-31-5885Dzxbbt outpatient visit 15 Ken Salas [facility] Work Phone: NOMS SchillingLee OBGYNComment on above:PCOS (polycystic ovarian syndrome) (Primary Dx); Encounter for initial prescription of contraceptive pills; Insulin resistanceStart: 02-14-2025 End: 53-05-4701Imvqkf Jarad Salas [facility] Work Phone: no Lee OBGYNStart: 02-14-2025 End: 66-46-8987Iynwhn Jarad Salas [facility] Work Phone: noMS SchillingLee OBGYNStart: 02-01-2025 End: 80-12-2960OdwixtdqdTsetvjy Igor DAMIANBIANCA Luke Physical TherapyComment on above:Sacrococcygeal disorders, not elsewhere classified (Primary Dx)Start: 02-01-2025 End: 63-23-4398Ybltoj flowsBrenton HARVEY [facility] Start: 02-01-2025 End: 43-10-7510Mfgyuj flowsBrenton HARVEY [facility] Start: 01-27-2025 End: 83-03-9841ZulpvrfvlGqcibrc Kelbleariel PTANOMS CI PTComment on above: Sacrococcygeal disorders, not elsewhere classified (Primary Dx)Start: 01-27-2025 End: 38-01-6423Cdbueq flowsheetMelissa Kelbley PTANOMS CI PTStart: 01-27-2025 End: 43-90-4044Erubjs flowsheetMelissa Kelbley PTANOMS CI PTStart: 01-24-2025 End: 50-19-9767EhhqwczxaePhprpcuau Kwan PTNOMS CI PTComment on above: Sacrococcygeal disorders, not elsewhere classified (Primary Dx)Start: 01-24-2025 End: 96-17-9484Kfhsfa flowsheetSammantha Kwna PTNOMS CI PTStart: 01-24-2025 End: 97-41-6012Bwrnzz flowsheetSammantha Kwan PTNOMS CI PTStart: 01-20-2025 End: 57-88-0267zffaaccqpsFXGD W SEYMOURProMedica Lee HospitalStart: 01-11-2025 End: 27-55-6452ktrbgzgarqHxlnchw Rowena DO Work Phone: [facility] Work Phone: Start: 01-11-2025 End: 15-06-0030Fowhibf encounter procedureFeliz Musa MD-[facility] Work Phone: start: 01-06-2025 End: 45-15-9574yuvathxeosKwqytau Braniecki DO Work Phone: [facility] Work Phone: Start: 01-06-2025 End: 30-45-0812Qfxjpgy encounter procedureChristopher Giovana Zimmerman [facility] Work Phone: Start: 01-05-2025 End: 55-90-7560lhdleobmaqZwajgdjy Singh Patti MDFacility:[facility] CenterStart: 12-27-2024 End: 22-16-3764wawrrjwmsjFnomxwsRachana Fairbanks MDFacility:[facility] [place] Start: 12-16-2024 End: 09-83-6727lybncvuxkwUGXG W SECl[facility] HospitalStart: 12-03-2024 End: 90-00-5879Lfdkfipfy encounterDestinee Britton MD Work Phone: NOMS FNR FMStart: 12-03-2024 End: 10-00-2510Hbnebz outpatient visit 25 minutesNess Montez [employer]ACLE BUSINESS INTELLIGENCE DEVELOPER Work Phone: noms FNR FMComment on above:Nausea (Primary Dx); Pain of upper abdomenStart: 00-05-3624Bsu-patient / Non-visitMegemini Morton [facility] Family Medicine Work Phone: Start: 11-24-2024 End: 78-68-1683Jtxmaolet department patient visitMATTHEW Sunil Alejandre [facility] Emergency DepartmentComment on above:Acute exacerbation of chronic low back pain (Primary Dx)Start: 11-11-2024 End: 48-65-2112denvqvoedgJQCG [facility] HospitalStart: 10-14-2024 End: 74-92-6849bkowwlfvbaXWTH [facility] HospitalStart: 09-17-2024 End: 99-13-1114lybjtzdmmkIYPX J [facility]ISFair[facility] HospitalStart: 09-16-2024 End: 39-07-7425dfbojoumiyRZUM [facility] HospitalStart: 09-13-2024 End: 70-38-3397sbbdbcldxpKatbwml Vytautas Giedraitis MDFacility:PM Armen Start: 08-30-2024 End: 90-99-6315banacyptmaOcgidyt Vytautas Giedraitis MDFacility:[facility] [place] Start: 08-26-2024 End: 58-26-7429tqzvjjqipuRMFG [facility] HospitalStart: 08-16-2024 End: 75-63-1889nyrjaoamqnUxfrtwf Vytautas Giedraitis MDFacility:[facility] [place] Start: 08-12-2024 End: 26-29-6546bkwgtcxdnoEDNE [facility] HospitalStart: 08-10-2024 End: 13-48-2712Kxlmbs outpatient visit 15 minutesValerie L Floro CNM Work Phone: NOMJ FNR OBComment on above:Unwanted fertility (Primary Dx); PCOS (polycystic ovarian syndrome)Start: 08-10-2024 End: 17-71-6398Rhsveb flowsheetValerie L Floro CNM Work Phone: noms FNR OBStart: 08-10-2024 End: 72-25-3131Bsiqcz flowsheetValerie L Floro CNM Work Phone: noms FNR OBStart: 08-05-2024 End: 78-24-7706Mzuxuzojx department patient visitPriyank Gaspar MD Work Phone: [facility] Emergency DepartmentComment on above: Acute exacerbation of chronic low back pain (Primary Dx)Start: 07-20-2024 End: 90-01-2269Thciganmy department patient visitYoli Lal MD Work Phone: merBarn[facility] Emergency DepartmentComment on above: Strain of lumbar region, initial encounter (Primary Dx); Abnormal computed tomography of lumbar spineStart: 07-15-2024 End: 96-91-2067ifudyxilogBTOS [facility] Hospitaltart: 06-25-2024 End: 63-99-8294swxaxujjztUFYH [facility] Hospitaltart: 06-02-2024 End: 06-73-3157PadfjhTvoj F Bower MD Work Phone: NOMS FNR FMComment on above:Encounter for initial prescription of contraceptive pillsStart: 05-28-2024 End: 31-16-1391sfwbaoqznhBGRH J TRAVISThe MetroHealth Systemtart: 05-27-2024 End: 75-87-4412kplkznaiosPNXX [facility] Hospitaltart: 05-24-2024 End: 78-65-4738Jqpjcs Erika Britton MD Work Phone: NOMS FNR FMStart: 05-24-2024 End: 60-15-4701Hiwqfv Erika Britton MD Work Phone: N[facility]S FNR FMStart: 05-24-2024 End: 17-06-9426Zakbmb outpatient visit 15 minutesDestinee Britton MD Work Phone: NOMS FNR FMComment on above:Candidiasis (Primary Dx); Acute nausea with nonbilious vomitingStart: 05-20-2024 End: 01-06-0191Hghlmc outpatient visit 15 minutesDestinee Britton MD Work Phone: NOMS FNR FMComment on above:Candidiasis (Primary Dx) Start: 05-10-2024 End: 84-11-2226Qfadmd flowsheetJovita Salas CNM Work Phone: noms FNR OBStart: 05-10-2024 End: 15-18-4642Tjmwxi flowsheetJovita Salas CNM Work Phone: noms FNR OBStart: 05-10-2024 End: 91-60-8417Ovvxyphwfqueg examination normalValeprakash ROBERTSM Work Phone: noms HealthcareStart: 05-10-2024 End: 24-74-3115Arkvnp outpatient visit 15 minutesJovita Salas CNM Work Phone: noms FNR OBComment on above:PCOS (polycystic ovarian syndrome) (Primary Dx); Normal gynecologic examination; Screening for cervical cancer; Other acne; HirsutismStart: 11-11-2023 End: 53-73-7554xspknkmfjjHgacpnkowAdams County Regional Medical Center Work Phone: Start: 11-11-2023 End: 41-75-6778Fhsykkn encounter procedureFormerly [facility] Work Phone: Start: 10-10-2023 End: 75-44-7204pmfdkwztkiKxezlvnemAdams County Regional Medical Center Work Phone: Start: 10-10-2023 End: 35-81-8834Tfvjgql encounter procedureFormerly [facility] Family Medicine Work Phone: Start: 07-09-2023 End: 35-95-1973qatpquitavLbnunys Braniecki Other [employer] Other Start: 85-74-1991Sfsnhr outpatient visit 25 minutes Becky [facility]gerM[facility] ClintonStart: 12-11-2022 End: 82-79-4314jkprysrtqjXxvxsij Braniecki Other [employer] Other Start: 15-80-4111Qreoskulz encounterMattsharw Rowena [facility] [place] ClintonStart: 16-16-2953Xumxyi outpatient visit 15 minutesPabrook KraftFPG Urgent Care ClydeStart: 12-09-2022 End: 55-70-5511niqlnfsadbHZVTXEYSZ NO [facility] [employer] Other Start: 12-09-2022 End: 45-92-1653Eupzyvv encounter procedurePHYSICIAN NO [facility] Work Phone: Start: 09-27-2022 End: 71-97-1418tfpgfijnnrYgkkund Heatheri Other [employer] Other Start: 15-15-6101Rulvgdkgw encounterMattbashir Romeo [facility] ClydeStart: 08-14-2022 End: 83-13-2094jsehaiikamQxtbsxd BranieckiFacility:[facility]cy Hospitaltart: 08-14-2022 End: 43-99-3050pkacdbefiqJXPCLEUUC NO [facility] Work Phone: Start: 08-14-2022 End: 55-60-5785Zvhofmg encounter procedurePHYSICIAN NO [facility] Work Phone: Start: 08-13-2022 End: 48-46-1656rbyfwroeqhCvacsui BranieckiFacility:[facility] Hospitaltart: 08-13-2022 End: 27-84-8987Lojbhqv encounter procedurePHYSICIAN NO [facility] [place] Clininspira medical center mullica hillStart: 08-13-2022 End: 16-60-3686ahtxomkhsxJRSBLRVPX NO [facility] Work Phone: Start: 89-21-9608Pkcmxgmrj encounterMatthew Brannickcki [facility] thinkingphonesrt: 08-12-2022 End: 36-27-7087etifxtgbcyTamwztc Brannickcki Other [employer] Other Start: 19-87-6874Ztpmzimxx for general adult medical examination without abnormal findingsTxttw CharbelKindred Hospital at WayneStart: 28-60-7969Uydciguy preventive med est patient 18-39 yrsMattw DavidernestineVictorinaKindred Hospital at WayneStart: 05-20-2022 End: 05-73-2141hshzubrpvtOkzqoni Davidcki Other [employer] Other Start: 44-22-3494Bdjgjnvdo encounterMatthew Davidcki [facility] RehabilitationStart: 02-08-2022 End: 16-63-1565srlsepzpnaChzuwoi Brannickcki Other noW[employer]ke[employer] Other Start: 46-71-9934Soxiea outpatient visit 15 minutes Joselin GriffinKindred Hospital at WayneStart: 82-58-7656Mdyriizux encounterMatthew BranBhavanaPG Urgent Care ClydeStart: 02-06-2022 End: 82-03-0817jqiiwdopigAvoouz Dymond Other noWorkec [employer] Other Start: 67-39-4385Skppqt outpatient visit 15 minutes Lexy Ernst [facility] ClydeStart: 07-03-2021 End: 22-20-0443gbvvebdhzwJetxosg Brannickcki Other [employer] Other Start: 77-41-4503Jmqzri outpatient visit 15 minutes Becky BargerKindred Hospital at WayneStart: 05-19-2020 End: 95-35-1965gjxnogcpdtAA ROGE THACKERFacility:Y1Bcevh: 05-58-5581Rpjgvfwou for other preprocedural examinationPEHorsham Clinic HospitalStart: 05-13-2020 End: 29-96-1263kjqzpbiucwEPIXV HIGHLANDERFacility:I1Qcnbe: 05-11-2020 End: 63-45-3239tnrasqmmqaVNMPF HIGHLANDERFacility:N5Xixfh: 05-11-2020 End: 14-94-1538Shajbtjxn for other preprocedural examinationPEASCENSION [facility] Facility:G1Yrlkn: 03-23-2020 End: 77-62-6762qbejxusdalXU DESTINEE BRITTONFacility:R0Rrvyr: 02-29-2020 End: 34-49-4500vzaemsnksoQRXAU HIGHLANDERFacility:I1Phynl: 03-30-2019 End: 96-23-7987Ujuythv encounter procedureSmendez Hu [facility] HospitaledithFairfield [facility] Procedures DateProcedureProcedure DetailPerforming ClinicianStart: 95-75-6197Khxrf dip stick/tablet rgnt non-auto w/o micrscpBreann Majors [employer]LL[employer] DEVELOPER Work Phone: Start: 40-86-1688Vb lumbar spine w/o contrast material Yoli Lal MD Work Phone: Start: 92-03-4409Fqyvyoziyc microscopic onlyYoli Lal MD Work Phone: Start: 07-20-2024 End: 58-20-4524Ohvwm dip stick/tablet rgnt auto w/o microscopyYoli Lal MD Work Phone: Start: 67-13-7797Fgvjcr-up visitFollow-upMARK W SEYMOURStart: 20-29-4376Wrkle X-ray of left handPHYSICIAN NO FAMILYStart: 32-16-9555Ktcto X-ray of left wristPHYSICIAN NO FAMILYStart: 36-23-1216Gxsjy chest X-rayPHYSICIAN NO FAMILYStart: 01-06-3745M-ray of left ankleSteppaznick Willy Plan of Treatment DateCare ActivityDetailAuthorStart: 08-15-2025 End: 01-88-4806Fsodddi encounter olsebzpee79/09/2026 5:30 PM EST Office Visit BIANCA RAPP [address] [facility] [address], [place] [id number] Marlenelisa Jovitabrynn Persaud CNM [address] [place] [address] BIANCA Blandon OBGYNStart: 04-11-2025 End: 16-40-3437vuyksrjezj96/06/2025 5:30 PM EDT Treatment [facility] [address] [facility] [address] [place], [id number] Delia Kwan PTNOMS Luke Physical TherapyStart: 04-04-2025 End: 51-89-3473vglixkekgo04/29/2025 5:30 PM EDT Treatment [facility] [address] [facility] [address] [place], [id number] Delia Kwan PTNOMS Luke Physical TherapyStart: 03-29-2025 End: 35-62-9017jqbfimotnnGFOV [facility] TherapyComment on above:Arrived Start: 03-24-2025 End: 94-68-8121tmzbvifnjqOKPH [facility] TherapyComment on above:Arrived Start: 03-21-2025 End: 07-77-5205rgzxlcxfjfTBSU Luke Physical TherapyComment on above:Arrived Start: 03-15-2025 End: 07-03-9936qwtzjkgpcv37/09/2025 5:30 PM EDT Treatment [facility] [address] [facility] [address] [place], [id number] Ryan Barger PTA ArrivedNOMS Luke Physical TherapyComment on above:ArrivedStart: 34-58-4196Gxtjkkjou vaccinationInfluenza Vaccine (#1)NOM HealthcareStart: 03-02-2025 End: 48-31-3934thnrxobxzt60/27/2025 5:30 PM EDT Treatment [facility] [address] [place], [id number] Ryan Barger PTANOMS Luke Physical TherapyStart: 02-28-2025 End: 95-54-3314gfqffoknzb16/25/2025 6:00 PM EDT Treatment [facility] [address] [place], [id number] Delia Kwan PTNOMS Luke Physical TherapyStart: 02-24-2025 End: 87-89-2472lcqxssdtrb66/21/2025 6:00 PM EDT Treatment [facility] [address] [place], [id number] Ofelia Blakely PTANOMS Luke Physical TherapyStart: 02-15-2025 End: 51-67-7727skctilvsjc56/12/2025 6:00 PM EDT Treatment [facility] [address] [place], [id number] Kem Costa PTANOMS Luke Physical TherapyStart: 02-14-2025 End: 54-59-3978Rjbzukq encounter procedureFranklin County Memorial Hospital OBGYNComment on above: ArrivedStart: 02-08-2025 End: 42-43-4431Lrggxem encounter pbpzswdav42/05/2025 4:00 PM EDT Office Visit [facility] [address] [place] [phone] Jovita Salas, CNM [address] [place], [place] [id number] NOM[facility] FNR OBStart: 02-01-2025 End: 38-75-3516hpnquxyiqhCXIP CI PTComment on above:ArrivedStart: 01-27-2025 End: 79-83-8536okpeezdhcxMCHV CI PTComment on above:ArrivedStart: 01-24-2025 End: 86-01-2425Zganezjcmd26/21/2025 6:00 PM EDT Evaluation [facility] [address] [place] [address] Delia Kwan, PT Sacrococcygeal disorders, not elsewhere classified (Primary Dx)[facility] Comment on above:Sacrococcygeal disorders, not elsewhere classified (Primary Dx) Start: 12-03-2024 End: 14-32-9840Qywfpgkq identified in Urine by CultureUrine culture (clean catch) Microbiology Routine Nausea Pain of upper abdomen Expected: 12/03/2024 ( Approximate), Expires: 12/03/2025NOMS HealthcareComment on above:Expected: 12/03/2024 (Approximate), Expires: 12/03/2025Start: 12-03-2024 End: 21-84-4826UGR W Auto Differential panel - BloodCBC and differential Lab Routine Nausea Pain of upper abdomen Expected: 12/03/2024 (Approximate), Ex imtiaz: 12/03/2025MS HealthcareComment on above:Expected: 12/03/2024 (Approximate), Expires: 12/03/2025Start: 12-03-2024 End: 40-13-1721Njsrboztmddzb metabolic 2000 panel - Serum or PlasmaComprehensive metabolic panel Lab Routine Nausea Pain of upper abdomen Expected: 12/03/2024 (Approximate), Expires: 12/03/2025NOMS HealthcareComment on above:Expected: 12/03/2024 (Approximate), Expires: 12/03/2025Start: 12-03-2024 End: 47-00-0855Ekndszlqnk complete panel - UrineUrinalysis with reflex microscopic (clean catch) Lab Routine Nausea Pain of upper abdomen Expected: 12/03/2024 (Approximate), Expires: 12/03/2025NOMS HealthcareComment on above: Expected: 12/03/2024 (Approximate), Expires: 12/03/2025Start: 12-03-2024 End: 65-29-6289UE Abdomen Single viewNOWI Healthcare Work Phone: Comment on above:Expected: 12/03/2024, Expires: 12/03/2025Start: 12-03-2024 End: 83-56-9169Likvnvg encounter zmejagyxz50/30/2025 1:30 PM EDT Office Visit [facility] [address] [place] [phone] Ness Montez NP [address] [place], [place] [id number] [facility] FNR FMStart: 08-10-2024 End: 46-61-7493Mpabfxk encounter procedureNOMS FNR OBComment on above:Arrived Start: 05-10-2024 End: 15-41-0127Chbsgbk, fastingInsulin, fasting Lab Routine Normal gynecologic examination Screening for cervical cancer PCOS (polycystic ovarian syndrome) Expected: 05/10/2024 (Approximate), Expires: 05/10/2025NOMS HealthcareComment on above:Expected: 05/10/2024 (Approximate), Expires: 05/10/2025Start: 05-10-2024 End: 46-32-8462Zggrzez encounter zgrcubxjq09/04/2024 2:00 PM EST Office Visit [facility] [address] [place] [phone] Jovita Salas, ALEJANDRAM [address] [place], [place] [phone] ArrivedNOMS FNR OBComment on above:ArrivedStart: 05-10-2024 End: 58-56-4831VYEXFUBD IMAGING PAP AND HPV DNA REFLEX HPV 16,18THINPREP IMAGING PAP AND HPV DNA REFLEX HPV 16,18 Pathology and Cytology Routine Screening for cervical cancer Expected: 05/10/2024 (Approximate), Expires: 05/10/2025[facility] Work Phone: Comment on above:Expected: 05/10/2024 (Approximate), Expires: 05/10/2025Start: 52-33-9484Fhjscugsm vaccinationInfluenza Vaccine (#1) [facility] HealthcareStart: 41-38-7488SDuB/Tdap/Td vaccine (7 - Td or Tdap) DTaP/Tdap/Td vaccine (7 - Td or Tdap)[facility]art: 08-14-2022 [facility]tart: 83-21-3736Pyojtvwjl for malignant neoplasm of cervixPap smearRiverside Shore Memorial Hospitalart: 42-64-0407Uhovtsfsk C screeningHepatitis C screenRiverside Shore Memorial Hospitalart: 76-86-7206Baqloedwa for Chlamydia trachomatisChlamydia/GC screenCarilion [facility]: 63-08-9028HBQ screeningHIV [facility]: 64-24-6291KMW vaccine (1 - 3-dose series)HPV vaccine (1 - 3-dose series)[facility]: 93-92-9936Ucuadrzmvk ScreenDepression [facility] CenterCB panel - Blood by Automated countCBC Lab Routine PCOS (polycystic ovarian syndrome) Ordered: 05/10/2024[facility] HealthcareComment on above:Ordered: 05/10/2024Glucose measurement estimated from glycated hemoglobinPromedica Bay Park HospitalHemoglobin A1c/Hemoglobin.total in BloodPromedica Bay Park HospitalHemoglobin A1c/Hemoglobin.total in BloodHemoglobin A1c Lab Routine PCOS (polycystic ovarian syndrome) Ordered: 05/10/2024[facility] HealthcareComment on above:Ordered: 05/10/2024 Immunizations Immunization DateImmunizationNotesCare RgomjbfvBxkmvzka42-21-7214JAPR-RGF-1 (COVID-19) vaccine, mRNA, spike protein, LNP, PF, anuj-sucrose, 30 mcg/0.3 mL Destinee Britton MD Work Phone: [facility] CenterWvhyfroabt66-76-2192Vzzsjqos, trivalent, recombinant, injectable influenza vaccine, preservative freeDestinee Brtiton MD Work Phone: [facility] CenterKswkcxizvn09-20-2744vwwvhgxbb virus vaccine, unspecified formulationSammantavel Kwan [facility] CenterZxwkrjxgij43-72-4608Igfmsxdkn, injectable, Madin Edgerton Canine Kidney, preservative free, quadrivalentDestinee Britton MD Work Phone: [facility] CenterYvunzvnsvx48-02-9896pckhvnzvq, seasonal, injectableMadanielle Romeo Other [facility]01-04-2020influenza virus vaccine, unspecified formulationValeribrynn Marlenelisa WILLOW Work Phone: [facility] CenterTiadggmwoz06-99-5186Ijxztxjcx, injectable, Madin Edgerton Canine Kidney, preservative free, quadrivalentDestinee Britton MD Work Phone: [facility] CenterQuzurolwcd22-15-2670oggxvdoiacubf polysaccharide (groups A, C, Y and W-135) diphtheria toxoid conjugate vaccine (MCV4P)Becky Romeo Other [facility]11-13-2013 meningococcal polysaccharide (groups A, C, Y and W-135) diphtheria toxoid conjugate vaccine (MCV4P)Destinee Britton MD Work Phone: [facility] CenterHoqbxapade50-15-0355pkuvmqg toxoid, reduced diphtheria toxoid, and acellular pertussis vaccine, adsorbedDestinee Britton MD Work Phone: [facility] CenterCfnpandtgk67-79-9331ypbjwyuur virus Juan Jose Britton MD Work Phone: [place] [address]Nnrnznbzir28-27-4636ysnxtonnsv, tetanus toxoids and acellular pertussis vaccine, unspecified formulationDestinee Britton MD Work Phone: [place] [address]Ycrokrcycc52-38-5537ssjveatgd B vaccine, pediatric or pediatric/adolescent dosageDestinee Britton MD Work Phone: [place] [address]Xfkhkguakd42-49-3278jwrbiif, mumps and rubella virus Juan Jose Britton MD Work Phone: [place] [address]Klygjdunwa11-37-8908uerhwkhypt vaccine, unspecified formulationDestinee Britton MD Work Phone: [place] [address]Ltdtuqljjl76-87-5920xzfhtbfgl virus Juan Jose Britton MD Work Phone: [place] [phone]HaZ-xvkbrnqgg B and poliovirus Juan Jose Britton MD Work Phone: [place] [address]Wdsiqhhgav91-17-4520azdyjia, mumps and rubella virus Juan Jose Britton MD Work Phone: [facility] CenterMjaibsayrr82-60-5246otgnocb, mumps and rubella virus vaccineDestinee Britton MD Work Phone: [facility] CenterKqaaoqrltv54-10-9452vmccevgqtl, tetanus toxoids and acellular pertussis vaccine, unspecified formulationDestinee Britton MD Work Phone: [facility] CenterNbllwxbrzm58-10-9715hwtybgczvdz influenzae type b vaccine, conjugate unspecified formulationDestinee Britton MD Work Phone: [facility] CenterWwhyqukidq27-63-4314xoqdhqteoa, tetanus toxoids and acellular pertussis vaccine, unspecified formulationDestinee Britton MD Work Phone: [facility] CenterTgeoegjfzb04-33-8763lmnsbiacfhy influenzae type b vaccine, conjugate unspecified formulationDestinee Britton MD Work Phone: [facility] CenterTsfiagstnf47-76-4293cdubaxinl B vaccine, pediatric or pediatric/adolescent dosageDestinee Britton MD Work Phone: [facility] CenterDzyfdjpbjg17-71-4993iwjfhlrhrr vaccine, unspecified formulationDestinee Britton MD Work Phone: [facility] CenterGfchjsoynr18-36-6269kuxzwtvwmaw influenzae type b vaccine, conjugate unspecified Jono Britton MD Work Phone: [facility] CenterBvyzrwhhma96-99-9380lzzzthwhmk, tetanus toxoids and acellular pertussis vaccine, unspecified formulationDestinee Britton MD Work Phone: [facility] CenterWthrecgcbd02-97-3105vyrnzavunz vaccine, unspecified formulationDestinee Britton MD Work Phone: [facility] CenterAaqleardht75-23-6151yhbvehrrgg, tetanus toxoids and acellular pertussis vaccine, unspecified formulationDestinee Britton MD Work Phone: [facility] CenterPlkfppylug26-18-9055rzdaqkxcxax influenzae type b vaccine, conjugate unspecified formulationDestinee Britton MD Work Phone: [facility] CenterZgrgflzyho81-89-9518ebpnymqli B vaccine, pediatric or pediatric/adolescent dosageDestinee Britton MD Work Phone: [facility] CenterTmxgznsaxs33-66-0416bxupgdmiyw vaccine, unspecified formulationDestinee Britton MD Work Phone: [facility] CenterSodquxxddb31-78-5985ranffxwcp B vaccine, pediatric or pediatric/adolescent dosageDestinee Britton MD Work Phone: [facility] Payers DatePayer CategoryPayerPolicy [id number] Regional Medical Center [id number] 2.16.840.9.955707.34922009-73-9233Btgg-pay [id number] Cross Blue Shield 1.2.840.988120.1.13.693.2.7.9.956218.610[id number] 2.16.840.1.856125.3.579.2.47724-83-9716Uzdcsje8744135 2.16.840.1.402099.3.57[id number] 2.16.840.1.887444.3.57[id number] 2.16.840.1.895248.3.579.2.42940-95-2603Gwnkujg6938004 2.16.840.1.933434.3.579.2.73346-06-1477Muxojry45753304 2.16.840.1.032797.3.579.2.26609-97-0793Txfxuwq02057823 2.16.840.1.753611.3.579.2.63056-31-4960Gdmxvgh04349173 2.16.840.1.778040.3.579.2.08929-33-6263Scseuhf874006144 2.16.840.1.409972.3.579.2.67348-85-0022Puqtdjf337034931 2.16.840.1.490578.3.579.[id number] 2.16.840.1.480464.3.579.[id number] 2.16.840.1.382324.3.579.2.99530-04-2019Kwytplz102565709 2.16.840.1.883932.3.57[id number] 2..840.1.394301.3.579.2.43042-72-9593Ycmdsad521067555 2..840.1.873468.3.579.2.73877-70-9425Dxceptt802790660 2.16.840.1.697454.3.579.2.18176-25-8159Rcnqpcd911073653 2.16.840.1.818222.3.579.2.37490-91-0068Abvuujc885142195 2..840.1.996933.3.579.2.231400-71-2747Htsxryn340992488 2.16.840.1.508755.3.579.2.193583-28-6968Hujmtvj684712022 2.16.840.1.965110.3.579.2.062634-23-9899Mtmapym116517773 2.16.840.1.193174.3.579.2.744419-14-8357Fkjpnye029811513 2.16.840.1.486705.3.579.2.971071-15-9314Hukizjx129274797 2.16.840.1.609856.3.579.2.494916-28-2028Leakvic068450316 2..840.1.767175.3.579.2.275387-42-6817Zresbup598121577 2.16.840.1.339219.3.579.2.916986-02-8514Undvvrd418530908 2.840.1.957867.3.579.2.659298-03-8369Watkmao165154210 2.840.1.818251.3.579.2.638525-31-9244Yqnczwk374460110 2.840.1.370370.3.579.2.250526-04-9225Fzlvimv379474430 2.840.1.307899.3.579.2.480558-05-6022Danvotr762833964 2.840.1.444462.3.579.2.557985-29-6903Edofzrc971563957 2.840.1.706339.3.579.2.920841-93-4512Iqkpfry88301373 2.840.1.652126.3.579.2.945014-26-0574Yvxgfsb51437910 2.0.1.687623.3.579.2.862494-45-7796Aqbqxvx54699426 2.840.1.650175.3.579.2.225406-62-0850Kzxbatr174476755975 6669c18d-1e8r-53do-29u4-65gf6742kv2nJdiildj41533246 2.840.1.061248.3.579.2.357Njgxnzx96512425 2.840.1.005698.3.579.2.531 Mvxhlxz70526966 2..840.1.567370.3.579.2.531 Social History DateTypeDetailFacilityTobacco smoking status NHISUnknown if ever smokedFairfield Medical Center CtrStart: 54-14-4129Jlq Assigned At [facility] Administrationtart: 12-04-2023 End: 42-85-5913Otu Assigned At [facility] HealthcareStart: 29-63-7356Shwemxi smoking status NHISUnknown if ever smokedMercy Hospitaltart: 06-26-2023 End: 30-21-6966Ewtaufv smoking status NHISNever smoked tobaccoNOMS Healthcare Start: 06-26-2023 End: 87-72-3531Uosectg use and exposureSmokeless tobacco non-userNOMS Healthcare Start: 12-04-2023 End: 85-99-6490Fwrxxhdsg beverage intakeCurrent drinker of alcohol (finding)[facility] HealthcareStart: 12-04-2023 End: 50-91-1336Kuyzgta of Social functionNOMS HealthcareStart: 87-24-3323Fbicgkb Commentcaffeine: 1-2 cups per dayNOWI HealthcareStart: 90-16-4771Qfclwk identity Identifies as female gender (finding)[facility] HealthcareStart: 05-24-2024 End: 37-25-4378Spwozzgcv beverage intakeEx-drinker (finding)[facility] Healthcare Start: 01-44-3788Nif often do you need to have someone help you when you read instructions, pamphlets, or other written material from your doctor or pharmacy [SILS]NeverNOMS HealthcareDo you belong to any clubs or organizations such as christianity groups, unions, fraternal or athletic groups, or school groups?NoNOMS HealthcareAre you now , , , , never or living with a partner?Never marriedNOMS HealthcareHow often to you have a drink containing alcohol?Monthly or lessNOMS HealthcareHow many standard drinks containing alcohol do you have on a typical day?1 or 2NOMS HealthcareHow often do you have 6 or more drinks on 1 occasion?Less than monthlyNOMS HealthcareDo you feel stress - tense, restless, nervous, or anxious, or unable to sleep at night because yourmind is troubled all the time - these days [OSQ]To some extent [facility](I/We) worried whether (my/our) food would run out before (I/we) got money to buy more.Never trueNOMS HealthcareStart: 52-67-4704Ptxgnbg Comment Currently Vape everydayNOMS HealthcareStart: 41-95-4742Mwmjtxr smoking status NHISEx-smokerBanner MobivoxHistory of tobacco useCurrent smokerBanner MobivoxHistory of tobacco useCigarette SmokerBanner [employer] [facility] HospitalStart: 95-85-0839Dfg assigned at birthNot on fileBanner Mobivox Start: 42-83-6414IsjElnbvk (finding)Banner MobivoxHow often do you need to have someone help you when you read instructions, pamphlets, or other written material from your doctor or pharmacy [SILS]NeverNOMS Healthcare Goals DatePatient GoalDesired Activity/State Clinical Notes 02-29-2020 to 04-04-2025 Note Date & BmrtTadrRitfauso41-20-4607 History of Present illness Narrative* Delia Kwan, PT - 04/04/2025 5:30 PM [...] to be instructed in home exercise program. Electrolytic Etcher Goals: To be met in 10 weeks [...] Please sign below. Date: documented in this encounterCameron Regional Medical CenterNvhksntkre80-43-7147 History of Present illness Narrative* Delia Kwan, PT - 02/28/2025 6:00 PM [...] to be instructed in home exercise program. Detention Goals: To be met in 10 weeks [...] Please sign below. Date: documented in this encounterCameron Regional Medical CenterMlmilxyhdm67-64-0550 Telephone encounter Note* Telephone Encounter - Evon Loera - 02/15/2025 9:35 AM EDT Vm left at 9:13 am Ca, this is Jenn from [facility] in [place]. I am calling about a mutual patient. Edwige Sierra. Date of is 2000. I am calling about the General Assembly 28 or the control you guys sent over the quantity on the prescription. They only come in packs at 28. So we needa quantity on that prescription to say 84 with 3 refills. If you could please either send over any prescription with the correct quantity or give us a callback that would be great. Our phone number here is [phone]. Again, this is Jenn from [facility] coming from a Main for Edwige Evans move 2000 for the spring tech or generic, nor just with Preston, dial the control, calling the change quantity to 84 because they only come in back to 28 and we can not open the pack again, phone number [phone] if you want to call for change or send over a brand new prescription with the correct quantity of 84? Thank you. [facility] CenterJxeiakwyga31-23-6493 Miscellaneous Notes* Telephone Encounter - Evon Guodel - 02/15/2025 9:35 AM EDT Vm left at 9:13 am Ca, this is Jenn from [facility] in [place]. I am calling about [...] be great. Our phone number here is [phone]. Again, this is Jenn from [facility] coming from a Main for Edwige Evans move 2000 for the spring tech or generic, nor just with Preston, dial the control, calling the change quantity to 84 because they only come in back to 28 and we can not open the pack again, phone number [phone] if you want to call for change or send over a brand new prescription with the correct quantity of 84? Thank you. documented in this encounterCameron Regional Medical CenterBpidvnbfzw31-37-9098 History of Present illness Narrative* Jovita Salas CNM - 02/14/2025 5:30 PM EDT PROBLEM VISIT Edwige Sierra is 24 y.o. a patient of [facility] Here for 6 month follow up Last [...] times a day as needed Norgestimate-Eth Estradiol (Axj-Bt-Xudaxs) 0.18/0.215/0.25 MG-25 MCG tablet TAKE 1 TABLET [...] López MA,02/14/2025 5:18 PM documented in this encounterCameron Regional Medical CenterSnoakinetd59-67-9904 History of Present illness Narrative* Delia Kwan, PT - 01/24/2025 6:00 PM EDT Images from the original [...] minutes) Strength, Endurance, Flexibility, ROM, HEP, Neural Mobilization,Power, and Core Stability as needed. Pt performed and instructed in home program this date; writteninstructions and pictures issued with good pt understanding. [...] to be instructed in home exercise program. Electrolytic Etcher Goals: To be met in 10 weeks [...] Please sign below. Date: documented in this encounterCameron Regional Medical CenterOjrikeycai47-80-2334 Evaluation note* Diagnosis Onset Date Resolution Status Admit Date Paresthesias acuteJuly 2024 2:55pmPain of left sacroiliac jointacuteJuly 2024 9:14amPain of right sacroiliac jointacuteJuly 2024 9:14amParesthesiasacute January 11, 2025 9:14am [facility] Work Phone: 1(274) 137-657405-30-2025 History of Present illness Narrative* Ness Montez [...] prompting another visit to the ER in [place]. A diagnosis of viral gastroenteritis was made [...] HPI Flowsheet Row Documentation from 11/30/2024 in [facility] with Lorin Hunt MA Hospital Information ED, Hospital or Halfway Facility Discharge? ED Patient has been contacted within 2 days of being seen in the ED Yes Diagnosis Viral Infection Discharge Date 11/28/24 Discharged To: Home Setting Discharge Hospital [facility] Engagement Call Start Time 1527 Admission Date [...] fluid intake and abstain from smoking marijuana. Tnvi-rag-ssjwbgk MiraLAX can be used if constipation persists. [...] or other abnormalities. - Advised to use nmrp-yxh-wajurro MiraLAX if constipation persists and to increase fluid intake. - Blood work will be done to assess kidney and liver function. No follow-ups on file. documented in this encounterCameron Regional Medical CenterNpxpnmzxvt21-23-4562 Hospital Discharge instructions* Discharge Instructions* Alicia Dunn [...] sent through Care Everywhere. * Back Pain (Chilean) documented in this encounterM[facility]02-04-20[facility] History of Present illness Narrative* Jovita Salas CNM - 08/10/2024 4:00 PM EST PROBLEM VISIT Edwige Sierra is 24 y.o. a patient of [facility] Here for follow up on medications Last [...] Salas CNM,12/16/2024 4:48 PMpatient documented in this encounterCameron Regional Medical CenterHtsbsitvfu05-67-8049 Hospital Discharge instructions* Discharge Instructions* Octavio Day [...] sent through Care Everywhere. * Back Pain (Chilean) documented in this encounterM[facility]01-14-2025 Hospital Discharge instructions* Discharge Instructions* [...] through Care Everywhere. * Strain or Sprain (Chilean) documented in this encounterM[facility] Center11-27-2024 Telephone encounter Note* Telephone Encounter - Freddytommy Yani - 06/02/2024 1:06 PM EST Pt called and left a vm at 12:41 pm today She said she has been waiting for her BC to be called over to [facility] but they haven't received anything. She asked if that can please be sent over. [facility] CenterMglecditip97-84-7712 Miscellaneous Notes* Telephone Encounter - Bess Lomeli - 06/02/2024 1:06 PM EST Pt called and left a vm at 12:41 pm today She said she has been waiting for her BC to be called over to [facility] but they haven't received anything. She asked if that can please be sent over. documented in this encounterCameron Regional Medical CenterRlwosvoqfz35-44-4071 History of Present illness Narrative* Destinee Britton [...] should contact the clinic. 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 She is getting her master's degree [...] bite block during sleep. documented in this encounterCameron Regional Medical CenterIwhfpopwsi65-94-0083 History of Present illness Narrative* ALEJANDRA Cruz - 05/10/2024 2:00 PM EST YEARLY HPI: This is a established patient. Chief Complaint Patient presents with Gynecologic Exam Here for annual exam. 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 Likely viral. Given instructions for supportive care. Immediate medical attention for change/worsening. Call with questions/concerns. Jul,Nausea and vomiting, unspecified vomiting type (ICD-10 - [...] time to settle down and treat the sy mptoms in the meantime. Immediate medical attention for change/worsening. If no improvement in 1-2 weeks, will consider a PPI and GI consultation. [employer] Other 06-05-2023 Evaluation note* Encounter Date Diagnosis Assessment Notes Treatment Notes Treatment Clinical Notes Dec, Left wrist pain (ICD-10 - M25.53 2) Dec,Sprain of left wrist, initial encounter (ICD-10 - S63.502A)Tmoer wrapWrist sprain home care material was printed Drink plenty fluids, get plenty of rest. Wear the wrist splint for comfort and compression. Ice andelevate your wrist 2-3 times a day. Take ibuprofen as needed for pain and swelling. Follow-up with your family physician if no improvement in 5 to 7 days [employer] Other 02-06-2023 Evaluation note* Encounter Date Diagnosis Assessment Notes Treatment Notes Treatment Clinical Notes Aug, Hair loss (ICD-10 - L65.9) Patient admits to this with ROS. Will screen a TSH. Aug,Wellness examination (ICD-10 - Z00.00) Overall, patient doing well, but her weight is certainly a concern. I will send her for screening labs, including thyroid and A1C. Weight loss strategy discussed as detailed below. Aug,MI 39.0-39.9,adult (ICD-10 - Z68.39) I've given her a detailed, written plan for diet, exercise, and weight loss. I will send her for labs. Recheck in 3-6 months but certainly sooner if she continues to struggle. Aug,ough, unspecified type (ICD-10 - R05.9) Go for CXR. I will have her on a steroid taper. Consider abx pending CXR results. Aug,Screening for metabolic disorder (ICD-10 - Z13.228) Aug,Screening for cardiovascular condition (ICD-10 - Z13.6) Aug,Screening for deficiency anemia (ICD-10 - Z13.0) [employer] Other 08-05-2022 Evaluation note* Encounter Date Diagnosis Assessment Notes Treatment Notes Treatment Clinical Notes Feb, Sore throat (ICD-10 - J02.9) Feb,trep pharyngitis (ICD-10 - J02.0)Advised patient that strep test was positive. Take [...] understanding and is agreeable to treatment plan. [employer] Other 08-03-2022 Evaluation note* Encounter Date Diagnosis Assessment Notes Treatment Notes Treatment Clinical Notes Feb, Sore throat (ICD-10 - J02.9) Feb,Viral pharyngitis (ICD-10 - J02.9)Pharyngitis/tonsillopharyngitis: adult home care material was printed Drink plenty fluids, get plenty of rest. Take Tylenol or Motrin as needed for aches pains or fevers. Consider drinking warm tea with honey for comfort. Follow-up with your family physician if no improvement in 2 to 3 days. [employer] Other 12-28-2021 Evaluation note* Encounter Date Diagnosis Assessment Notes Treatment Notes Treatment Clinical Notes Jun, Exposure to COVID-19 virus (ICD- 10 - Z20.822) Jun,OVID-19 (ICD-10 - U07.1) Patient's rapid test is positive for Covid-19. She is given instructions for quarantine and supportive care. Call immediately for change/worsening or with questions/concerns. [employer] Other 11-13-2020 NotePROCEDURE: XR ANKLE RT MIN 3 VIEWS COMPARISON: 05/19/2020 intraprocedural, 04/02/2020 HISTORY: Postoperative care FINDINGS: BONES:No fracture, acute abnormality, or significant arthropathy. SOFT TISSUES:Post procedural soft tissue swelling, subcutaneous air and lateral surgical elaina EFFUSION:None visible. OTHER: Negative. IMPRESSION: Postprocedural changes Electronically authenticated by: ROGE THACKRE Date: 2020-05-19 14:02[facility]11-13-2020 NotePROCEDURE: XR ANKLE RT 2V [...] authenticated by: ROGE THACKER Date: 2020-05-19 14:00[facility] [id number] History general Narrative - Reported* Type Description Date Medical History Chronic back pain Medical HistoryHx of concussionMedical HistoryacneMedical Historychronic depressionSurgical Historyankle reconstruction- right05/2020 [employer] Other 09-17-2020 NotePROCEDURE: XR FOOT RT MIN 3 VIEWS COMPARISON: 02/29/2020 HISTORY: Pain in right foot FINDINGS: BONES:Stable intra-articular transverse fracture base of the fifth metatarsal. No acute fracture or dislocation SOFT TISSUES:Negative. No visible soft tissue swelling. EFFUSION:None visible. OTHER: Negative. IMPRESSION: Stable healing intra-articular transverse fracture base of the fifth metatarsal Electronically authenticated by: ROGE THACKER Date: 2020-03-23 10:22 [facility] [id number] NotePROCEDURE: XR ANKLE RT MIN 3 VIEWS, [...] authenticated by: ROGE THACKER Date: 2020-02-29 12:57[facility] [id number] NotePROCEDURE: XR ANKLE RT MIN 3 VIEWS, [...] authenticated by: ROGE THACKER Date: 2020-02-29 12:57[facility]Evaluation noteNo InformationN[employer] Other Evsbrpipjd noteNo assessment information available [facility] Work Phone: evaluation note* Diagnosis Onset Date Resolution Status Bilateral acute otitis media resolved [facility] Work Phone: evaluation note* Diagnosis PCOS (polycystic ovarian syndrome)- Primary Polycystic ovaries Normal gynecologic examination Screening for cervical cancer Screening for malignant neoplasm of the cervix Other acne Hirsutism documented [facility]* Diagnosis Candidiasis- Primary Acute nausea with nonbilious vomiting documented in this encounter [facility]* Diagnosis Candidiasis- Primary documented in this encounter [facility]* Diagnosis Encounter for initial prescription of contraceptive pills documented in this encounter [facility]* Diagnosis Strain of lumbar region, initial encounter- Primary Abnormal computed tomography of lumbar spine [email or web address] Diagnosis Acute exacerbation of chronic low back pain- Primary documented in this encounter [facility] [facility]* Diagnosis Acute exacerbation of chronic low back pain- Primary documented in this encounter [facility] [employer] [facility]* Diagnosis Nausea- Primary Nausea alone Pain of upper abdomen documented in this encounter [facility]* Diagnosis Unwanted fertility- Primary PCOS (polycystic ovarian syndrome) Polycystic ovaries documented in this encounter [facility]Evaluation [facility]* Diagnosis Onset Date Resolution Status Admit Date Paresthesias acuteJuly 2024 2:55pm [facility] Work Phone: Evaluation note* Diagnosis Sacrococcygeal disorders, not elsewhere classified- Primary documented in this encounter [facility]Evaluation [facility]* Diagnosis Sacrococcygeal disorders, not elsewhere classified- Primary documented in this encounter [facility]* Diagnosis Sacrococcygeal disorders, not elsewhere classified- Primary documented in this encounter [facility]* Diagnosis PCOS (polycystic ovarian syndrome)- Primary Polycystic ovaries Encounter for initial prescription of contraceptive pills Insulin resistance Other abnormal glucose documented in this encounter [facility]* Diagnosis Sacrococcygeal disorders, not elsewhere [...] elsewhere classified- Primary documented in this encounter [facility] HealthcareHistory general Narrative - Reported* Type Description Date Medical History Chronic back pain Medical HistoryHx of concussionMedical Historyacne [facility] [employer] Other History general Narrative - Reported* Type Description Date Medical History Chronic back pain Medical HistoryHx of concussionMedical HistoryacneMedical Historychronic depression [facility] [employer] Other Reqdxe for referral (narrative)No reason for referral information availableN[facility]wide [facility] Work Phone: Revhkf for visit Narrative* Rehabilitation - Outpatient (Routine) - AuthorizedSpecialtyDiagnoses / ProceduresReferred By ContactReferred To ContactPhysical Therapy Diagnoses Sacrococcygeal disorders, not elsewhere classified Procedures NE PHYSICAL THERAPY EVALUATION LOW COMPLEX 20 MINS NE OFFICE/OUTPATIENT NEW HIGH MDM 60 MINUTES Feliz Musa MD [address] [place] [address] Phone: tel: fax: Delia Kwan, PT Referral IDStatusReasonStart DateExpiration DateVisits RequestedVisits [id number]/ [facility] CenterReason for visit Narrative* Rehabilitation - Outpatient (Routine) - ClosedSpecialtyDiagnoses / ProceduresReferred By ContactReferred To Contact Physical Therapy Diagnoses Sacrococcygeal disorders, not elsewhere classified Procedures NE PHYSICAL THERAPY EVALUATION LOW COMPLEX 20 MINS NE OFFICE/OUTPATIENT NEW HIGH MDM 60 MINUTES Feliz Musa MD [address] [place] [address] Phone: tel: fax: Delia Kwan, PT Referral IDStatusReasonStart DateExpiration DateVisits RequestedVisits [id number] [facility] HealthcareReason for visit Narrative* Rehabilitation - Outpatient (Routine) - AuthorizedSpecialtyDiagnoses / ProceduresReferred By ContactReferred To ContactPhysical Therapy Diagnoses Sacrococcygeal disorders, not elsewhere classified Procedures NE THER PX 1/> AREAS EACH 15 MIN NEUROMUSC REEDUCA NE MANUAL THERAPY TQS 1/> REGIONS EACH 15 MINUTES NE THERAPEUTIC PX 1/> AREAS EACH 15 MIN EXERCISES PHYS/OCC THERAPY Feliz Werner MD [address] [place], [place] [id number] Phone: tel: fax: Delia Kwan, MARYCARMEN Referral IDStatusReasonStart DateExpiration DateVisits RequestedVisits [id number] [facility] HealthcareReason for visit Narrative* Rehabilitation - Outpatient (Routine) - ClosedSpecialtyDiagnoses / ProceduresReferred By ContactReferred To Contact Physical Therapy Diagnoses Sacrococcygeal disorders, not elsewhere classified Procedures NE THER PX 1/> AREAS EACH 15 MIN NEUROMUSC REEDUCA NE MANUAL THERAPY TQS 1/> REGIONS EACH 15 MINUTES NE THERAPEUTIC PX 1/> AREAS EACH 15 MIN EXERCISES PHYS/OCC THERAPY Feliz Werner MD [address] [place], [place] [address] Phone: tel: fax: Delia Kwan, PT Referral IDStatusReasonStart DateExpiration DateVisits RequestedVisits [id number] [facility] Advance Directives No Advanced Directives Records Found Advance Directive Response Recorded Date/ Time Advance Directives No March 1:27pm Advance Directive Response Recorded Date/ Time Advance Directives No March 12:27pm Advance Directive Response Recorded Date/ Time Advance Directives No March 1:27pm Chief Complaint and Reason for Visit Chief Complaint S99.912A Chief Complaint CONTINUING EAR INFEC TION Chief Complaint CONTINUING EAR INFEC TION possible ear infectionReason for VisitBilateral acute otitis media Chief Complaint Admit Date Amb Documentation December 01, 2024 6:50a m EMG BLE per Jazmin Yanez MEDICAL TERRITORY MANAGER January 06 2:55pm Reason for Visit Admit Date Paresthesias January 06, 2025 2:55p m Chief Complaint Admit Date Amb Documentation December 01, 2024 6:50a m EMG BLE per Jazmin Yanez MEDICAL TERRITORY MANAGER January 06 2:55pm low back pain January [...] Date/T katarzyna Not Specified Diabetes mellitus Unknown sisterHypertensionUnknown Relationship Condition Age at Onset Recorded Date/T katarzyna mother Diabetes mellitus Unknown sisterHypertensionUnknown Additional Source Comments INFORMATION SOURCE (unrecogn ized section and content) DATE CREATED AUTHOR 01/04/2021 [facility] DATE CREATED AUTHOR AUTHOR'S ORGANIZ ATION 06/27/2021 [facility] [employer] DATE CREATED AUTHOR AUTHOR'S ORGANIZ ATION 12/16/2022 [facility] DATE CREATED AUTHOR AUTHOR'S ORGANIZ ATION 12/01/2024 [facility] DATE CREATED AUTHOR AUTHOR'S ORGANIZ ATION 04/30/2025 [facility] DATE CREATED AUTHOR AUTHOR'S ORGANIZ ATION 05/06/2025 [facility] REASON FOR VISIT (unrecogniz ed section and content) ReasonCommentsGynecologic ExamReasonCommentsVomitingPatient presents today for vomiting x 2 day. Patient states that it started Friday night.ReasonComments Blood in Umbilical AreaReasonCommentsBack PainPt states she slipped last week but was able to catch self. She has been having right low/mid back pain since. She went to urgent care on 07/13 and was prescribed Flexeril and 600mg Motrin which she last took around 0600. Pt then went to chiropractor yesterday and had xray completed. Patient concerned about continuing pain, she has known herniated disc.ReasonCommentsBack PainRight lower back pain ongoing since 2016. MRI completed on Friday in [place].ReasonCommentsBack PainBilateral lower back pain, and patient states it is radiating down the nerves in my legs . Patient has been here 2x now for same issues. Has had CT and MRI done a few months ago along with steroid injections. Patient cannot get into see her PCP for an EMG until January and is here for pain control.ReasonCommentsER Follow-upVomitingNausea ReasonCommentsMedication Follow UpReasonCommentsFollow-up Care Teams (unrecognized sec tion and content) Team Status: Active Member Role Status Dates Becky Romeo DO Primary Care Provider Active Team Status: Active Member Role Status Dates Becky Romeo DO Primary Care Provider Active Start: December 01, 2024 Lacey Morton LPNAtfarzaneh ProviderActiveStart: December 01, 2024 Team Status: Inactive Member Role Status Dates Becky Romeo DO Primary Care Provider Active Start: January 06, 2025 End: January 06saroj Akhtar DOAttending ProviderActiveStart: January 06, 2025 End: January 06, 2025 Team Status: Inactive Member Role Status Dates PHYSICIAN NO FAMILY Primary Care Provider Active Becky Romeo DOAttrakesh ProviderActive Team Status: Active Member Role Status Dates PHYSICIAN NO FAMILY Primary Care Provider Active Team Status: Inactive Member Role Status Dates PHYSICIAN NO FAMILY Primary Care Provider Active Lexy Kraft NP-CAttending ProviderActive Team Status: Inactive Member Role Status Dates Grisel Andres APRN Attending Provider Active Start: October 10, 2023 End: October 10, 2023Greg Madsen Care ProviderActiveStart: October 10, 2023 End: October 10, 2023 Team Status: Inactive Member Role Status Dates Becky Romeo DO Primary Care Prov marcosr, Attending Provider Active Start: November 11, 2023 End: November 11, 2023Team MemberRelationshipSpecialtyStart DateEnd Date Destinee Britton MD [address] [place] [address] PCP - GeneralFamily Medicine11/12/22Team MemberRelationshipSpecialtyStart DateEnd Date Destinee Britton MD [address] [place] [address] PCP - GeneralFamily Medicine11/12/22am MemberRelationshipSpecialtyStart DateEnd Date Destinee Britton MD [address] [place] [address] PCP - GeneralFamily Medicine11/12/22am MemberRelationshipSpecialtyStart DateEnd Date Destinee Britton MD [address] [place] [address] PCP - GeneralFamily Medicine11/12/22am MemberRelationshipSpecialtyStart DateEnd Date Destinee Britton MD [address] [facility] [place] [address] PCP - GeneralFamily Medicine11/12/22Team MemberRelationshipSpecialtyStart DateEnd Date Becky Romeo DO NPI: [address] [place] [address];[address] [place] [address] [place] [address] PCP - GeneralFamily Medicine07/20/24Team MemberRelationshipSpecialtyStart DateEnd Date Becky Romeo DO NPI: [address] [place] [address];[address] [place] [address] PCP - GeneralFamily Medicine07/20/24Team MemberRelationshipSpecialtyStart DateEnd Date Becky Romeo DO NPI: [address] [place] [address];[address] [place] [address] [place] [address] PCP - GeneralFamily Medicine07/20/24Team MemberRelationshipSpecialtyStart DateEnd Date Destinee Britton MD [address] [place] [address] PCP - GeneralFamily Medicine11/12/22Team MemberRelationshipSpecialtyStart DateEnd Date Destinee Britton MD [address] [place] [address] PCP - Generalmily Medicine11/12/22Team MemberRelationshipSpecialtyStart DateEnd Date Destinee Britton MD [address] [place] [address] [facility]/12/22 Team Status: Inactive Member Role Status Dates Becky Romeo DO Primary Care Provider Active Start: January 11, 2025 End: January 11, 2025Dakajal Musa MDAttrakesh ProviderActiveStart: January 11, 2025 End: January 11, 2025Team MemberRelationshipSpecialtyStart DateEnd Date Destinee Britton MD [address] [place] [address] PCP - Generalmily Medicine11/12/22Team MemberRelationshipSpecialtyStart DateEnd Date Destinee Britton MD [address] [place] [address] PCP - Generalmily Medicine11/12/22Team MemberRelationshipSpecialtyStart DateEnd Date Destinee Britton MD [address] [place] [address] PCP - Generalmily Medicine5/9/23Team MemberRelationshipSpecialtyStart DateEnd Date Destinee Britotn MD [address] [place] [address] PCP - GeneralFamily Medicine11/12/22 MemberRelationshipSpecialtyStart DateEnd Date Destinee Britton MD [address] [place] [address] PCP - GeneralFamily Medicine11/12/22 MemberRelationshipSpecialtyStart DateEnd Date Destinee Britton MD [address] [place] [address] PCP - GeneralFamily Medicine11/12/22 MemberRelationshipSpecialtyStart DateEnd Date Destinee Britton MD [address] [place] [address] PCP - GeneralFamily Medicine11/12/22 MemberRelationshipSpecialtyStart DateEnd Date Destinee Britton MD [address] [place] [address] PCP - GeneralFamily Medicine11/12/22 MemberRelationshipSpecialtyStart DateEnd Date Destinee Britton MD [address] [place] [address] PCP - GeneralFamily Medicine11/12/22 MemberRelationshipSpecialtyStart DateEnd Date Destinee Britton MD [address] [place] [address] PCP - GeneralFamily Medicine5/9/23Team MemberRelationshipSpecialtyStart DateEnd Date Destinee Britton MD [address] [facility] [address] PCP - Generalmily Medicine11/12/22Team MemberRelationshipSpecialtyStart DateEnd Date Destinee Britton MD [address] [facility] [place] [address] PCP - Generalmily Medicine11/12/22Team MemberRelationshipSpecialtyStart DateEnd Date Destinee Britton MD [address] [facility] [place] [address] PCP - Generalmily Medicine11/12/22Team MemberRelationshipSpecialtyStart DateEnd Date Destinee Britton MD [address] [facility] [place] [address] PCP - Generalmily Medicine11/12/22Team MemberRelationshipSpecialtyStart DateEnd Date Destinee Britton MD [address] [facility] [address] PCP - Generalmily Medicine11/12/22Team MemberRelationshipSpecialtyStart DateEnd Date Destinee Britton MD [address] [facility] [place] [address] PCP - GeneralFamily Medicine11/12/22 Goals (unrecognized section and content) Goals may be documented in a n alternate section Ordered Prescriptions (unrec ognized section and content) PrescriptionSigDispensedRefillsStart DateEnd traMADol (ULTRAM) 50 MG tablet Indications:Strain of lumbar region, initial encounterTake 1 tablet by mouth every 6 hours as needed for Pain for up to 3 days. Intended supply: 3 days. Take lowest dose possible to manage pain Max Daily Amount: 200 mg 12 tablet / cyclobenzaprine (FLEXERIL) 10 MG tablet Take 1 tablet by mouth 3 times daily as needed for Muscle spasms 21 tablet / predniSONE (DELTASONE) 50 MG tablet Take 1 tablet by mouth daily for 5 days 5 tablet /PrescriptionSigDispensedRefillsStart DateEnd Date methocarbamol (ROBAXIN) 500 MG tablet Take 2 tablets by mouth 4 times daily for 10 days 80 tablet /03/2025 gabapentin (NEURONTIN) 100 MG capsule Take 3 capsules by mouth 3 times daily for 3 days. Intended supply: 30 days 27 capsule /08/2024PrescriptionSigDispense QuantityRefillsLast FilledStart Date End Date lidocaine (LIDODERM) 5 % Place 1 patch onto the skin daily for 10 days 12 hours on, 12 hours off. 10 patch / methylPREDNISolone (MEDROL, QUIN,) 4 MG tablet Follow package insructions. 1 kit / Scheduled Active and Recently Administ ered Medications (unrecognized section and content) Medication Order// cyclobenzaprine (FLEXERIL) tablet 10 mg (COMPLETED) 10 mg, Oral, ONCE, 1 dose, On Fri07/20/24 at 1615 * 1615 (Given - Provider: Ruth Cobos RN) dexAMETHasone (DECADRON) injection 10 mg (COMPLETED) 10 mg, IntraVENous, ONCE, On Fri07/20/24 at 1615, For 1 dose * 1615 (Given - Provider: Ruth Cobso RN) ketorolac (TORADOL) injection 15 mg (COMPLETED) 15 mg, IntraVENous, ONCE, 1 dose, On Fri07/20/24 at 1615, Do not administer for more than 5 days. * 1615 (Given - Provider: Ruth Cobos RN) morphine (PF) injection 2 mg (COMPLETED) 2 mg, IntraVENous, ONCE, 1 dose, On Fri07/20/24 at 1800, If oral and IV narcotics ordered, use oralfirst and only use IV if oral is ineffective or cannot take oral. Do Not give oral and IV within 1 hour of each other unless specifically ordered. * 1805 (Given - Provider: Ruth Cobos RN) ondansetron (ZOFRAN) injection 4 mg (COMPLETED) 4 mg, IntraVENous, ONCE, 1 dose, On Fri07/20/24 at 1800 * 1805 (Given - Provider: Ruth Cobos RN) Medication Order08/[id number]// ketorolac (TORADOL) injection 30 mg (COMPLETED) 30 mg, IntraMUSCular, ONCE, 1 dose, On [place] 08/05/24 at 1145, Do not administer for more than 5 days. * 1150 (Given - Provider: Jacinda Nielson RN) methocarbamol (ROBAXIN) tablet 1,000 mg (COMPLETED) 1,000 mg, Oral, Once, 1 dose, On [place] 08/05/24 at 1145 * 1150 (Given - Provider: Jacinda Nielson RN) FOR RECORDS PERTAINING TO [...] BE BASED ON THE PRIMARY CLINICAL RECORDS. [employer] [facility]. provides no warranty or guarantee of the accuracy or completeness of information in this document.
--- NOTE | 2025-05-26 08:38 | P.CN_ITS ---
Consult Note: HPI Data of Consult Patient: known to practice within the last 3 years Requesting Physician: Jazmin Yanez NP Primary Care Provider: Vidal Romeo, DO Consult Narrative Reason for consult: f/u Narrative: Edwige tellez pleasant 24 year old female presents for evaluation of chronic low back pain secondary to bulging disc, lumbar ddd, and lumbar spondylosis. continues to utilize heat, ice, methocarbamol cannot take tylenol due to elevated liver enzymes. failed baclofen. pain today 1/10 increasing to 4/10 in low back. finds benefit to PRN chiropractor care. recently underwent bilateral L4-5 L5-S1 RFA with >50% improvement ongoing. cc:: CC: Jazmin Yanez NP Review of Systems 2 ROS0 Musculoskeletal Reports: back pain; Denies: extremity pain [facility]SH [facility] Medical History (Updated 03/15/25 @ 11:19 by Ras Singh MD) Low back pain ?M54.50 - Low back pain, unspecified (ICD-10) Depression ?F32.A - Depression, unspecified (ICD-10) PCOS (polycystic ovarian syndrome) ?E28.2 - Polycystic ovarian syndrome (ICD-10) Surgical History History of ankle surgery ?Z98.890 - Other specified postprocedural states (ICD-10) Social History Little interest or pleasure in doing things: not at all Feeling down, depressed, or hopeless: not at all Meds Home Medications and Allergies Home Medications ?Medication ?Instructions ?Recorded ?Confirmed ?Type norgestimate 0.18 mg/0.215mg/0.25 1 tab PO DAILY 08/1604/25/25 History mg-ethinyl estradiol 0.025 mg tablet (Tvc-Vr-Shulib) methocarbamol 500 mg tablet See Rx Instructions .Route 03/16/25 04/25/25 Rx .COMPLEX PRN muscle spasm #120 tabs desvenlafaxine succinate 50 mg 50 mg PO DAILY 04/25/25 04/25/25 History tablet,extended release 24 hr (Pristiq) diazepam 10 mg tablet (Valium) 10 mg PO ONCE 04/25/25 04/25/25 History Allergies Allergy/AdvReac Type Severity Reaction Status Date / Time No Known Drug Allergies Allergy Verified 04/25/25 08:53 Exam Constitutional Documenting provider has reviewed patient's vital signs: yes Common normals: no apparent distress, oriented x3 and alert General appearance: cooperative HENMT Common normals: normocephalic, hearing grossly normal bilaterally and moist oral mucous membranes Head and scalp: normocephalic Eye Common normals: PERRL Pupil: PERRL Neck & C-Spine Common normals: full ROM General: normal visual inspection Chest Common normals: inspection of chest normal Respiratory Common normals: normal respiratory effort, no retractions and no use of accessory muscles Back & Pelvis Lumbar spine/lower back: ROM limited, paraspinal muscle tenderness and straight leg raise negative bilaterally; no pain with ROM and no lumbar spinal tenderness Other: tenderness noted over bilateral GTB and posterior hips Back image (female): 2 1. 2. Neuro Common normals: oriented x3 Sensorium/orientation: alert Psych Common normals: mental status grossly normal, thought process normal, cooperative, affect normal, speech normal and activity/motor behavior normal Speech: normal speech Thought process: normal thought process Results Additional Findings Additional findings: If on a controlled substance or opioids, I have checked an [place] report on this patient and there are no aberrancies noted in the prescribing history.??If on a controlled substance or opioid a drug screen was completed and reviewed within the last year, and if there has not been a drug screen completed we ordered one today to monitor higher risk, state monitored pain medication use. As part of providing excellent, safe, comprehensive care, the following was completed at our patient's visit: 1. A medication reconciliation and review to ensure accurate knowledge of current/active medications, including asking our patients to inform us about any [id number] medications or herbal remedies/nutritional supplements/alternative remedies. 2. A review to specifically ensure our patients have had annual screening for screening for depression, screening for tobacco use, and screening for unhealthy alcohol use. For concerning screenings had a discussion with the patient, provided patient education, and recommended follow-up with primary care provider when appropriate. If patient noted with a risk of falling, they received education on strength, gait, and balance training to prevent future risk of falling. Portions of this note may have been carried over from the previous visit and updated as appropriate. Please note this office utilizes paper charting in addition to the electronic medical record. A list of current medications, vitals, and PMH is available there as the clinical staff outside of myself do not have access to [facility] charting during the clinic day operations. As part of providing quality comprehensive care the current medications, vitals, and PMH were reviewed in the paper chart. Assessment and Plan Assessment and Plan (1) Lumbar spondylosis: Assessment and Plan: 04-25-25 bilateral L4-5 L5-S1 facet RFA 75% improvement per pt (2) Myalgia, other site: Plan The patient has had over 3 months of moderate to severe low back pain with functional impairment and inadequate response to conservative care including NSAIDS (unless there are contraindication such as concurrent blood thinners), multiple oral or topical pain medications, and home exercise program/physical therapy.? Patient has completed >6 weeks of guided home exercise program and/or formal physical therapy program without relief of their symptoms.? I have reviewed the imaging of the lumbar spine and no red flags were identified.? The Oswestry Disability Index was completed, and the patient scored a 22%.? refer back to PT for myofascial pain and stretching continue current medications f/u 3 months, sooner if needed
== END 2025-05-26 08:11 | disposition home or self-care (01) ==
LOC: PM 08:11
PROVIDERS: PCP Student in an Organized Health Care Education/Training Program; Visit Provider Nurse Practitioner
DX: M47.816 Spondylosis without myelopathy or radiculopathy, lumbar region (principal); M79.18 Myalgia, other site
CPT/HCPCS: G0463